=== PATIENT | female | born 1940 | race African-American/Black ===

== ENCOUNTER 2016-11-02 14:04 | Emergency (ER) | payer OTHER ==
[2016-11-02 14:11] VITALS: BP 149/87; PULSE 70; TEMP 98.3; BMI 36.6
--- NOTE | 2016-11-02 15:01 | PDOC ---
History of Present Illness - General Chief Complaint: Pain, Acute Stated Complaint: LT HAND SWOLLEN Time Seen by Provider: 11/02/16 14:23 History Source: Patient Exam Limitations: No Limitations - History of Present Illness Initial Comments: 11/02/16 14:56 Patient came for evaluation of right hand pain and swelling. States onset was 2 days ago and is uncertain as to cause. Denies fall, denies any known trauma. Denies any exercise changes or aggressive activity at home. Has never had a problem with her hands the past. Denies fever, denies any other areas of injury. 11/02/16 16:52 Occurred: reports: yesterday Severity: reports: mild, moderate Pain Location: reports: upper extremity Modifying Factors: improves with: None Past History - Travel Traveled outside of the country in the last 30 days: No Close contact w/someone who was outside of country & ill: No - Past Medical History Allergies/Adverse Reactions: Allergies Allergy/AdvReac Type Severity Reaction Status Date / Time ampicillin [Ampicillin] Allergy Severe Swelling Verified 11/02/16 14:08 codeine [Codeine] Allergy Swelling Verified 11/02/16 14:08 Home Medications: Ambulatory Orders Methimazole [Tapazole -] 10 mg PO BID tablet 01/03/16 Montelukast Na [Singulair -] 10 mg PO HS #30 tablet 04/10/16 Budesonide/Formeterol Fumarate [SYMBICORT 160/4.5mcg -] 2 inh PO BID 05/14/16 Digoxin [Lanoxin -] 0.125 mg PO DAILY tablet 05/27/16 Albuterol 2.5/Ipratropium 0.5 [Duoneb -] 1 neb NEB Q4H PRN 08/16/16 Warfarin Na [Coumadin -] 4 mg PO DAILY@1800 #30 tablet 08/25/16 Benzonatate [Tessalon Pearls -] 100 mg PO TID #21 capsule 08/30/16 Diltiazem Cd [Cardizem Cd -] 240 mg PO DAILY 08/30/16 Furosemide [Lasix -] 40 mg PO DAILY 08/30/16 Hydralazine HCl [Apresoline -] 10 mg PO BID 08/30/16 Anemia: No Asthma: Yes Cancer: No Cardiac Disorders: Yes (AFIB) CVA: No COPD: Yes CHF: Yes Dementia: No Diabetes: No GI Disorders: No Disorders: No HTN: Yes Hypercholesterolemia: No Liver Disease: No Suicide Attempt (Hx): No Seizures: No Thyroid Disease: Yes (HYPO.) - Surgical History Abdominal Surgery: Yes (TUBAL LIGATION) Appendectomy: No Cardiac Surgery: No Cholecystectomy: No Lung Surgery: No Neurologic Surgery: No Orthopedic Surgery: No - Family Disease History Family Disease History: Diabetes: Father, Heart Disease: Father, Mother - Immunization History Immunization Up to Date: Yes - Psycho/Social/Smoking Cessation Hx Anxiety: No Suicidal Ideation: No Smoking Status: No Smoking History: Never smoked Have you smoked in the past 12 months: No Number of Cigarettes Smoked Daily: 0 Hx Alcohol Use: No Drug/Substance Use Hx: No Substance Use Type: None Hx Substance Use Treatment: No Review of Systems - Review of Systems Able to Perform ROS?: Yes Is the patient limited Kinyarwanda proficient: Yes Constitutional: Yes: Symptoms Reported, See HPI. No: Chills, Fever, Malaise HEENTM: Yes: Symptoms Reported, See HPI Respiratory: Yes: Cough Musculoskeletal: Yes: Symptoms Reported, See HPI, Joint Pain, Joint Swelling ( right hand and wrist) Integumentary: Yes: Symptoms Reported, See HPI. No: Bruising All Other Systems: Reviewed and Negative *Physical Exam - Vital Signs Last Vital Signs Temp Pulse Resp BP Pulse Ox 98.3 F 70 18 149/87 99 11/02/16 14:07 11/02/16 14:07 11/02/16 14:07 11/02/16 14:07 11/02/16 14:07 - Physical Exam General Appearance: Yes: Nourished, Appropriately Dressed, Apparent Distress, Mild Distress HEENT: positive: CHERI, Normal ENT Inspection, Normal Voice, TMs Normal, Pharynx Normal Neck: positive: Supple Extremity: positive: Normal Capillary Refill, Normal Range of Motion, Tender, Swelling. negative: Normal Inspection Integumentary: positive: Warm, Erythema, Swelling (pain with flexion and extension at fingers , reproduced with flexion and extension at wrist and squeezing of fingers. Translation of pain is along the ligamentous areas from hand and extending to mid forearm CONSISTENT WITH A TENDINITIS) Neurologic: positive: histology manager II-XII NML intact, Fully Oriented, Alert ED Treatment Course - RADIOLOGY Radiology Studies Ordered: Category Date Time Status HAND- RIGHT [RAD] Stat Radiology 11/02/16 14:54 Ordered Progress Note - Progress Note Progress Note: Tendinitis, x-ray negative for fractures dislocation . Splinted with a volar splint, sling provided and will follow-up with orthopedist for possible further treatment *DC/Admit/Observation/Transfer Diagnosis at time of Disposition: Tendonitis - Discharge Dispostion Disposition: HOME Condition at time of disposition: Stable Admit: No - Referrals Referrals: Joey Hernandez MD [Primary Care Provider] - Sky Garza MD [Staff Physician] - - Patient Instructions Printed Discharge Instructions: DI for Tendinitis Additional Instructions: Rest, ice to area on and off for 15 minutes 4-6 times a day Avoid heavy lifting or exercise until pain and swelling is resolved or until further directed Keep area highly elevated to reduce swelling Use splints/Franko wrap as directed Followup with orthopedist in one to 2 days if not improving, if significantly improved may wait one week for followup with orthopedist May use tylenol 325mg 2-tablets every 6 hours as needed for pain - Post Discharge Activity Work/School Note: Back to Work
== END 2016-11-02 16:09 | disposition home or self-care (01) ==
LOC: JERFT 14:04 → SUPCPDRO 14:04 → JERFT 16:09
PROC: 2W39X1Z Immobilization of Left Upper Extremity using Splint (ICD-10-PCS; principal; 2016-11-02)
DX: M77.8 Other enthesopathies, not elsewhere classified (principal); I48.91 Unspecified atrial fibrillation; Z79.01 Long term (current) use of anticoagulants; I10 Essential (primary) hypertension; E03.9 Hypothyroidism, unspecified; J45.909 Unspecified asthma, uncomplicated; J44.9 Chronic obstructive pulmonary disease, unspecified
CPT/HCPCS: 29125; 73130-TC-RT; 99281-25

== ENCOUNTER 2016-11-13 16:52 | Inpatient (IN) | payer OTHER ==
[2016-11-13 16:57] VITALS: BMI 37.3
[2016-11-13 18:07] LABS: BASOPHIL 0.7 % (0-2.0); EOSINOPHIL 2.1 % (0-4.5); MCH 31.2 pg (25.7-33.7); MCHC 33.8 g/dl (32.0-36.0); MEAN CELL VOLUME 92.3 fl (80-96); MEAN PLT VOLUME 8.7 fl (7.5-11.1); PLATELET COUNT 184 K/MM3 (134-434); RDW 15.6 % (11.6-15.6); WHITE BLOOD COUNT 8.6 K/mm3 (4.0-10.0)
--- NOTE | 2016-11-13 18:12 | PDOC ---
History of Present Illness - General History Source: Patient, Old Records Exam Limitations: No Limitations <EllenFelipe - Last Filed: 11/13/16 20:41> - General History Source: Patient, Old Records Exam Limitations: No Limitations - History of Present Illness Initial Comments: 11/13/16 18:37 The patient is a 76 year old female, with a significant past medical history of CHF, asthma, COPD, Hypothyroidism, HTN and AFIB, who presents to the emergency department with 2 days of shortness of breath and dyspnea on exertion. She states that she usually has dyspnea on exertion but has worsen as even when she rests she is experiencing shortness of breath. She reports that she takes 40 mg of Lasix daily but notes that she has noticed her lower extremities swelling during this time frame. The patient denies chest pain, headache and dizziness. Denies fever, chills, nausea, vomit, diarrhea and constipation. Denies dysuria, frequency, urgency and hematuria. Allergies: Ampicillin, codeine Past surgical history: Tubal ligation Social history: No alcohol, tobacco or drug use reported PMD - Dr. Joey Hernandez Cardiology - Dr. Hahn <Kael Curtis - Last Filed: 11/13/16 20:54> - General Chief Complaint: Shortness of Breath Stated Complaint: SHORTNESS OF BREATH Time Seen by Provider: 11/13/16 17:24 Past History - Past Medical History Anemia: No Asthma: Yes Cancer: No Cardiac Disorders: Yes (AFIB) CVA: No COPD: Yes CHF: Yes Dementia: No Diabetes: No GI Disorders: No Disorders: No HTN: Yes Hypercholesterolemia: No Liver Disease: No Suicide Attempt (Hx): No Seizures: No Thyroid Disease: Yes (HYPO.) - Surgical History Abdominal Surgery: Yes (TUBAL LIGATION) Appendectomy: No Cardiac Surgery: No Cholecystectomy: No Lung Surgery: No Neurologic Surgery: No Orthopedic Surgery: No - Family Disease History Family Disease History: Diabetes: Father, Heart Disease: Father, Mother - Immunization History Immunization Up to Date: Yes - Psycho/Social/Smoking Cessation Hx Anxiety: No Suicidal Ideation: No Smoking Status: No Smoking History: Never smoked Have you smoked in the past 12 months: No Number of Cigarettes Smoked Daily: 0 Hx Alcohol Use: No Drug/Substance Use Hx: No Substance Use Type: None Hx Substance Use Treatment: No <Felipe Hughes - Last Filed: 11/13/16 20:41> <Kael Curtis - Last Filed: 11/13/16 20:54> - Past Medical History Allergies/Adverse Reactions: Allergies Allergy/AdvReac Type Severity Reaction Status Date / Time ampicillin [Ampicillin] Allergy Severe Swelling Verified 11/13/16 16:57 codeine [Codeine] Allergy Swelling Verified 11/13/16 16:57 Home Medications: Ambulatory Orders Montelukast Na [Singulair -] 10 mg PO HS #30 tablet 04/10/16 Budesonide/Formeterol Fumarate [SYMBICORT 160/4.5mcg -] 2 inh PO BID 05/14/16 Digoxin [Lanoxin -] 0.125 mg PO DAILY tablet 05/27/16 Albuterol 2.5/Ipratropium 0.5 [Duoneb -] 1 neb NEB Q4H PRN 08/16/16 Warfarin Na [Coumadin -] 4 mg PO DAILY@1800 #30 tablet 08/25/16 Benzonatate [Tessalon Pearls -] 100 mg PO TID #21 capsule 08/30/16 Diltiazem Cd [Cardizem Cd -] 240 mg PO DAILY 08/30/16 Furosemide [Lasix -] 40 mg PO DAILY 08/30/16 Hydralazine HCl [Apresoline -] 10 mg PO BID 08/30/16 Review of Systems - Review of Systems Able to Perform ROS?: Yes Comments:: 11/13/16 18:37 GENERAL/CONSTITUTIONAL: No fever or chills. No weakness. HEAD, EYES, EARS, NOSE AND THROAT: No change in vision. No ear pain or discharge. No sore throat. CARDIOVASCULAR: +Shortness of breath and dyspnea on exertion. No chest pain. RESPIRATORY: No cough, wheezing, or hemoptysis. GASTROINTESTINAL: No nausea, vomiting, diarrhea or constipation. GENITOURINARY: No dysuria, frequency, or change in urination. MUSCULOSKELETAL: No joint or muscle swelling or pain. No neck or back pain. EXTREMITIES: +Bilateral lower extremity swelling. SKIN: No rash NEUROLOGIC: No headache, vertigo, loss of consciousness, or change in strength/ sensation. ENDOCRINE: No increased thirst. No abnormal weight change HEMATOLOGIC/LYMPHATIC: No anemia, easy bleeding, or history of blood clots. ALLERGIC/IMMUNOLOGIC: No hives or skin allergy. <Kael Curtis Kelly - Last Filed: 11/13/16 20:54> *Physical Exam - Vital Signs Last Vital Signs Temp Pulse Resp BP Pulse Ox 98.4 F 95 H 20 157/90 97 11/13/16 16:53 11/13/16 16:53 11/13/16 16:53 11/13/16 16:53 11/13/16 16:53 <Felipe Hughes - Last Filed: 11/13/16 20:41> - Vital Signs Last Vital Signs Temp Pulse Resp BP Pulse Ox 98.4 F 95 H 20 157/90 97 11/13/16 16:53 11/13/16 16:53 11/13/16 16:53 11/13/16 16:53 11/13/16 16:53 - Physical Exam Comments: 11/13/16 18:37 GENERAL: Awake, alert, and fully oriented, in no acute distress HEAD: No signs of trauma, normocephalic, atraumatic EYES: PERRLA, EOMI, sclera anicteric, conjunctiva clear ENT: Auricles normal inspection, hearing grossly normal, nares patent, oropharynx clear without exudates. Moist mucosa NECK: Normal ROM, supple, no lymphadenopathy, JVD, or masses LUNGS: +Bibasilar rales. distress, speaks full sentences. HEART: Regular rate and rhythm, normal S1 and S2, no murmurs, rubs or gallops, peripheral pulses normal and equal bilaterally. ABDOMEN: Soft, nontender, normoactive bowel sounds. No guarding, no rebound. No masses EXTREMITIES: 1+ Pitting edema lower extremities. Normal inspection, Normal range of motion, No clubbing or cyanosis. NEUROLOGICAL: Cranial nerves II through XII grossly intact. Normal speech, normal gait, no focal sensorimotor deficits SKIN: Warm, Dry, normal turgor, no rashes or lesions noted. <Terri Curtisaide Mendoza - Last Filed: 11/13/16 20:54> Heart Score/ECG Review - History History: Slightly suspicious - Electrocardiogram EKG: Non specific repolarization disturbance - Age Age: >/= 65 - Risk Factors Based on the list above the patient has:: >/=3 risk factors or Hx atherosclerotic disease - Troponin Troponin: </= normal limit - Score Heart Score - Total: 5 #1 ECG reviewed & interpreted by me at: 18:15 11/13/16 20:18 afib 84, left axis deviation, LVH, T wave flat V4-V5, aVF, QTC 451 msec, no std/ estefany <Felipe Hughes - Last Filed: 11/13/16 20:41> ED Treatment Course - LABORATORY CBC & Chemistry Diagram: 11/13/16 18:00 11/13/16 18:00 - RADIOLOGY Radiology Studies Ordered: Category Date Time Status CHEST X-RAY PORTABLE* [RAD] Stat Radiology 11/13/16 17:28 Taken <Felipe Hughes - Last Filed: 11/13/16 20:41> - LABORATORY CBC & Chemistry Diagram: 11/13/16 18:00 11/13/16 18:00 - ADDITIONAL ORDERS Additional order review: 11/13/16 18:00 RBC 4.41 MCV 92.3 MCHC 33.8 RDW 15.6 MPV 8.7 Neutrophils % 57.0 D Lymphocytes % 30.3 D Monocytes % 9.9 D Eosinophils % 2.1 Basophils % 0.7 D - RADIOLOGY Radiograph Interpretation: 11/13/16 18:35 Chest X-Ray Reviewed by: Dr. Dat Severino Impression: Mild cardiomegaly without evidence of acute lung disease. <Kael Curtis - Last Filed: 11/13/16 20:54> Medical Decision Making - Medical Decision Making 11/13/16 18:11 A portion of this note was documented by scribe services under my direction. I have reviewed the details of the note, within reason, and agree with the documentation with the following case summary and management plan written by me. Patient treated in the ED. Nursing notes are reviewed and incorporated into the medical decision-making. Vital signs reviewed. Peripheral IV access obtained by the nurse, laboratory studies are drawn and sent, reviewed and interpreted by myself. Vital Signs Temp Pulse Resp BP Pulse Ox 98.4 F 95 H 20 157/90 97 11/13/16 16:53 11/13/16 16:53 11/13/16 16:53 11/13/16 16:53 11/13/16 16:53 76-year-old female with past medical history of congestive heart failure on 40 mg Lasix daily, hypertension, COPD, atrial fibrillation history of pulmonary embolism on Coumadin presents with shortness of breath and lower showing edema for 3 days. She reports adherence to her medications. Noted increasing dyspnea on exertion and shortness of breath but denies any chest pain or fevers. Denies cough. I suspect that the patient is having congestive heart failure exacerbation. We' ll obtain a chest x-ray, labs. Give IV Lasix and admit the patient to the hospital for further evaluation. 11/13/16 20:42 Chest xray demonstrates cardiomegaly but no pleural effusions. CBC, BMP 11/13/16 18:00 11/13/16 18:00 CMP Sodium 144 mmol/L (136-145) 11/13/16 18:00 Potassium 3.7 mmol/L (3.5-5.1) 11/13/16 18:00 Chloride 106 mmol/L (98-107) 11/13/16 18:00 Carbon Dioxide 27 mmol/L (21-32) 11/13/16 18:00 Anion Gap 11 (8-16) 11/13/16 18:00 BUN 15 mg/dL (7-18) D 11/13/16 18:00 Creatinine 0.9 mg/dL (0.55-1.02) 11/13/16 18:00 Creat Clearance w eGFR > 60 (>60) 11/13/16 18:00 Random Glucose 131 mg/dL (74-106) H 11/13/16 18:00 Calcium 8.8 mg/dL (8.5-10.1) 11/13/16 18:00 Magnesium 2.1 mg/dL (1.8-2.4) 11/13/16 18:00 Total Bilirubin 0.4 mg/dL (0.2-1.0) 11/13/16 18:00 AST 20 U/L (15-37) 11/13/16 18:00 ALT 13 U/L (12-78) D 11/13/16 18:00 Alkaline Phosphatase 78 U/L (45-117) 11/13/16 18:00 Creatine Kinase 105 IU/L (26-192) 11/13/16 18:00 Troponin I 0.02 ng/ml (0.00-0.05) 11/13/16 18:00 B-Natriuretic Peptide 293.26 pg/ml (5-450) 11/13/16 18:00 Total Protein 6.2 g/dl (6.4-8.2) L 11/13/16 18:00 Albumin 3.3 g/dl (3.4-5.0) L 11/13/16 18:00 Trop and BNP negative. Given new BAL, will need to SANTI. Aspirin ordered. Case discussed with Dr. Salinas. Accepts for telemetry admission.Will consult Dr. Hahn. <Felipe Hughes - Last Filed: 11/13/16 20:41> - Medical Decision Making 11/13/16 20:53 Dr. Perez was called regarding the patient. Dr. Salinas covering at 8:03pm Dr. Salinas was consulted regarding the patient at 8:40pm [phone] <Kael Curtis - Last Filed: 11/13/16 20:54> *DC/Admit/Observation/Transfer - Discharge Dispostion Admit: Yes <Felipe Hughes - Last Filed: 11/13/16 20:41> - Attestations Scribe Attestion: 11/13/16 18:36 Documentation prepared by Kael Curtis, acting as medical field representative for Felipe Hughes MD. <Kael Curtis - Last Filed: 11/13/16 20:54> Diagnosis at time of Disposition: Shortness of breath at rest - Referrals Referrals: Joey Hernandez MD [Primary Care Provider] -
[2016-11-13 18:36] LABS: INR 2.44 (0.82-1.09); PROTHROMBIN TIME (PATIENT) 27.3 SEC (9.98-11.88)
[2016-11-13 18:39] LABS: ACTIVATED PTT 43.4 SECONDS (26.9-34.4)
[2016-11-13 19:36] LABS: ALBUMIN 3.3 g/dl (3.4-5.0); ANION GAP 11 (8-16); BILIRUBIN,TOTAL 0.4 mg/dL (0.2-1.0); CALCIUM 8.8 mg/dL (8.5-10.1); CO2 27 mmol/L (21-32); CREATININE 0.9 mg/dL (0.55-1.02); GLUCOSE,RANDOM 131 mg/dL (74-106); MAGNESIUM 2.1 mg/dL (1.8-2.4); SGOT/AST 20 U/L (15-37); SGPT/ALT 13 U/L (12-78); TOT PROT 6.2 g/dl (6.4-8.2)
[2016-11-13 19:41] LABS: ALK PHOS 78 U/L (45-117)
[2016-11-13 19:42] LABS: TROPONIN I 0.02 ng/ml (0.00-0.05)
[2016-11-13] MEDS ORDERED: ASPIRIN 81 MG CHEWABLE TABLETS PO ONE (20:03)
[2016-11-13] MEDS ORDERED: ASPIRIN 81 MG CHEWABLE TABLETS ONE (20:20)
[2016-11-13] MEDS ORDERED: ONDANSETRON *ODT* 4 MG TABLET SL PRN (20:50)
[2016-11-13] MEDS ORDERED: ACETAMINOPHEN 325 MG TABLET (FP) PO PRN (20:50)
[2016-11-13] MEDS: hydrALAZINE HCL 10 MG TABLET PO SCH (23:09)
[2016-11-13] MEDS: MONTELUKAST NA 10 MG TABLET PO SCH (23:09)
[2016-11-14] MEDS: BUDESONIDE/FORMETEROL FUMARATE 160/4.5 mcg INHALER IH SCH ×3 (00:53→23:20)
[2016-11-14] MEDS: ALBUTEROL SO4 2.5/IPRATROPIUM 0.5 INH SOL 3 ML VIAL.NEB. NEB PRN ×2 (01:05→22:05)
[2016-11-14 07:30] LABS: MCH 31.5 pg (25.7-33.7); MCHC 33.8 g/dl (32.0-36.0); MEAN CELL VOLUME 93.4 fl (80-96); MEAN PLT VOLUME 8.7 fl (7.5-11.1); PLATELET COUNT 144 K/MM3 (134-434); RDW 16.4 % (11.6-15.6); WHITE BLOOD COUNT 7.8 K/mm3 (4.0-10.0)
--- NOTE | 2016-11-14 07:48 | HP ---
Admitting History and Physical - Primary Care Physician PCP: Darline Salinas - Admission Chief Complaint: SOB. CP History Source: Medical Record - Past Medical History Cardiovascular: Yes: AFIB (REFUSED ANTICOAGULATION IN PAST NOW ON COUMADIN), HTN , Mitral Insufficiency Pulmonary: Yes: Asthma, Bronchitis, COPD Gastrointestinal: Yes: GERD Musculoskeletal: Yes: Osteoarthritis Endocrine: Yes: Hyperthyroidism. No: Diabetes Mellitus - Past Surgical History Past Surgical History: Yes: Tubal Ligation - Smoking History Smoking history: Never smoked Have you smoked in the past 12 months: No Aproximately how many cigarettes per day: 0 - Alcohol/Substance Use Hx Alcohol Use: No - Social History ADL: Independent History of Recent Travel: No Home Medications - Allergies Allergies/Adverse Reactions: Allergies Allergy/AdvReac Type Severity Reaction Status Date / Time ampicillin [Ampicillin] Allergy Severe Swelling Verified 11/13/16 16:57 codeine [Codeine] Allergy Swelling Verified 11/13/16 16:57 - Home Medications Home Medications: Ambulatory Orders Montelukast Na [Singulair -] 10 mg PO HS #30 tablet 04/10/16 Budesonide/Formeterol Fumarate [SYMBICORT 160/4.5mcg -] 2 inh PO BID 05/14/16 Digoxin [Lanoxin -] 0.125 mg PO DAILY tablet 05/27/16 Albuterol 2.5/Ipratropium 0.5 [Duoneb -] 1 neb NEB Q4H PRN 08/16/16 Warfarin Na [Coumadin -] 4 mg PO DAILY@1800 #30 tablet 08/25/16 Benzonatate [Tessalon Pearls -] 100 mg PO TID #21 capsule 08/30/16 Diltiazem Cd [Cardizem Cd -] 240 mg PO DAILY 08/30/16 Furosemide [Lasix -] 40 mg PO DAILY 08/30/16 Hydralazine HCl [Apresoline -] 10 mg PO BID 08/30/16 Family Disease History - Family Disease History Family Disease History: Diabetes: Father (HTN) Review of Systems - Review of Systems Constitutional: denies: Chills, Fever Cardiovascular: denies: Chest Pain Respiratory: reports: SOB, Wheezing Gastrointestinal: denies: Abdominal Pain Physical Examination Vital Signs: Vital Signs Temperature 97.9 F 11/14/16 05:18 Pulse Rate 86 11/14/16 05:18 Respiratory Rate 19 11/14/16 05:18 Blood Pressure 131/78 11/14/16 05:18 O2 Sat by Pulse Oximetry (%) 97 11/13/16 23:00 Constitutional: Yes: Calm Cardiovascular: Yes: Regular Rate and Rhythm, S1, S2 Respiratory: Yes: Rhonchi Gastrointestinal: Yes: Normal Bowel Sounds, Soft Edema: No Labs: CBC, BMP 11/14/16 05:35 Imaging - Results Chest X-ray: Report Reviewed Problem List - Problems (1) Acute asthma exacerbation Code(s): J45.901 - UNSPECIFIED ASTHMA WITH (ACUTE) EXACERBATION Qualifiers: (2) Atrial fibrillation Code(s): I48.91 - UNSPECIFIED ATRIAL FIBRILLATION (3) CHF (congestive heart failure) Code(s): I50.9 - HEART FAILURE, UNSPECIFIED Qualifiers: Qualified Code(s): I50.9 - Heart failure, unspecified (4) Dyspnea Code(s): R06.00 - DYSPNEA, UNSPECIFIED (5) Hypertension Code(s): I10 - ESSENTIAL (PRIMARY) HYPERTENSION (6) Hyperthyroidism Code(s): E05.90 - THYROTOXICOSIS, UNSP WITHOUT THYROTOXIC CRISIS OR STORM Assessment/Plan The patient is a 76 year old female, with a significant past medical history of CHF, asthma, COPD, Hypothyroidism, HTN and AFIB, who presents to the emergency department with 2 days of shortness of breath and dyspnea on exertion. She states that she usually has dyspnea on exertion but has worsen as even when she rests she is experiencing shortness of breath. She reports that she takes 40 mg of Lasix daily but notes that she has noticed her lower extremities swelling during this time frame. The patient denies chest pain, headache and dizziness. Denies fever, chills, nausea, vomit, diarrhea and constipation. Denies dysuria, frequency, urgency and hematuria. Allergies: Ampicillin, codeine Past surgical history: Tubal ligation Social history: No alcohol, tobacco or drug use reported PMD - Dr. Joey Hernandez Cardiology - Dr. Hahn (1) Acute asthma exacerbation Code(s): J45.901 - UNSPECIFIED ASTHMA WITH (ACUTE) EXACERBATION Qualifiers: PULM CONSULTED DUONEB - IV STEROIDS (2) Atrial fibrillation Code(s): I48.91 - UNSPECIFIED ATRIAL FIBRILLATION ON AC INR THERAPEUTIC (3) CHF (congestive heart failure) Code(s): I50.9 - HEART FAILURE, UNSPECIFIED Qualifiers: Congestive heart failure type: unspecified congestive heart failure type Congestive heart failure chronicity: acute Qualified Code(s): I50.9 - Heart failure, unspecified BNP NEG TROP #1 NEG CARDIO CONSULTED (4) Dyspnea Code(s): R06.00 - DYSPNEA, UNSPECIFIED (5) Hypertension Code(s): I10 - ESSENTIAL (PRIMARY) HYPERTENSION (6) Hyperthyroidism Code(s): E05.90 - THYROTOXICOSIS, UNSP WITHOUT THYROTOXIC CRISIS OR STORM NOT ON Rx - [employer]
[2016-11-14 08:20] LABS: ALBUMIN 2.9 g/dl (3.4-5.0); ANION GAP 8 (8-16); CALCIUM 8.8 mg/dL (8.5-10.1); CO2 30 mmol/L (21-32); GLUCOSE,RANDOM 109 mg/dL (74-106); SGOT/AST 14 U/L (15-37); SGPT/ALT 11 U/L (12-78)
[2016-11-14 08:34] LABS: ALK PHOS 64 U/L (45-117); BILIRUBIN,TOTAL 0.5 mg/dL (0.2-1.0); CREATININE 0.8 mg/dL (0.55-1.02); DIGOXIN LEVEL 0.6567 ng/ml (0.8-2.0); TOT PROT 5.1 g/dl (6.4-8.2)
[2016-11-14 08:58] LABS: CHOLESTEROL 197 mg/dL (50-200); LDL CHOLESTEROL (ONLY SJRH) 137 mg/dL (5-100); THYROID STIMULATING HORMONE 1.59 uIU/ml (0.358-3.74); TROPONIN I 0.03 ng/ml (0.00-0.05)
--- NOTE | 2016-11-14 09:20 | PN ---
Progress Note (short form) - Note Progress Note: Cardiology Consult Dictated Well known to our service: Permanent AF HTN w/ chronic Diastolic CHF Moderate MR Chronic COPD DVT Now presents with increased SOB, increased b/l LE edema with bilateral rales on exam. IMP: Acute on chronic diastolic CHF REC: Telemetry IV Lasix Echo to re-assess MR Will need to review when last ischemic evaluation was and consider repeating it when euvolemic. INR 2-3.
[2016-11-14] MEDS: methylPREDNISolone NA SUCC 40 MG/1 ML VIAL IVPB SCH ×3 (09:54→23:51)
[2016-11-14] MEDS: hydrALAZINE HCL 10 MG TABLET PO SCH ×2 (09:54→23:18)
[2016-11-14] MEDS: DIGOXIN 0.125 MG TABLET (FP) PO SCH (09:54)
[2016-11-14] MEDS ORDERED: FUROSEMIDE 40 MG TABLET (FP) PO SCH (10:00)
--- NOTE | 2016-11-14 10:24 | CONS ---
CARDIOLOGY CONSULTATION DATE OF CONSULTATION: 11/14/2016 REQUESTED BY: Darline Salinas MD for shortness of breath. HISTORY OF PRESENT ILLNESS: The patient is well-known to our service from previous hospitalizations and from office practice. She is a 76-year-old female with permanent atrial fibrillation, on Coumadin, chronic hypertension with chronic diastolic CHF, moderate mitral regurgitation, chronic COPD, history of DVT, who presents to the emergency department for evaluation of persistent shortness of breath, bilateral lower extremity edema of several days duration. On physical examination, she has bilateral rales. She denies chest pain but has had a dry cough and describes chronic chest tightness with her cough. She denies palpitations, no PND orthopnea, no fevers or chills. PAST MEDICAL HISTORY: Her past medical history is as outlined above. She is on Coumadin for history of deep venous thrombosis, for pulmonary embolism and for her chronic atrial fibrillation. ALLERGIES: 1. AMPICILLIN 2. CODEINE HOME MEDICATIONS: 1. Coumadin 4 mg q h.s. 2. Singulair 10 mg q h.s. 3. Hydralazine 10 mg p.o. b.i.d. 4. Lasix 40 mg p.o. daily. 5. Cardizem CD 240 mg daily 6. Digoxin 0.125 mg p.o. daily. 7. Budesonide inhaler b.i.d. 8. DuoNeb p.r.n. FAMILY HISTORY: Noncontributory. SOCIAL HISTORY: Denies history of smoking. PHYSICAL EXAM: Vital signs: She is afebrile, temperature 97.9. Pulse 86, in atrial fibrillation. Telemetry has shown well-controlled atrial fibrillation with an average rate of 70. Heart: The heart was irregular. Lungs: Chest demonstrated bibasilar rales one-third of the way of up. Abdomen: Obese, soft, nontender. Extremities: 2+ edema bilaterally. RADIOGRAPHIC FINDINGS: Her chest x-ray was reviewed personally and showed cardiomegaly with increased interstitial markings. No effusions. No clear infiltrate. LABS: White count 7.8, hematocrit 36, platelets 44. INR was 2.44. Sodium 145. BUN 12, creatinine 0.8. CK and troponin negative x 2 sets. BNP 293. Digoxin level 0.66. ASSESSMENT: 76-year-old female with permanent atrial fibrillation, moderate mitral regurgitation, history of deep venous thrombosis/pulmonary embolism, history of hypertension with chronic diastolic congestive heart failure, presents with increased shortness of breath, bilateral lower extremity edema and rales bilaterally. Although her BNP does not seem markedly elevated, clinically she appears to be in mildly-decompensated [id number] diastolic congestive heart failure. PLAN: 1. Would change Lasix to IV for 1-2 days. 2. Repeat echocardiogram to re-assess mitral regurgitation. 3. Will review patient's previous history of ischemic evaluations and determine when the last stress test was. Would consider repeating an ischemic evaluation prior to discharge when euvolemic. 4. Maintain INR, 2-3. Thank you for the consultation. Jennifer MANZANARES/[id number] cc: Darline Salinas MD
[2016-11-14] MEDS: FUROSEMIDE 40 MG/4 ML INJECTABLE VIAL IVPUSH SCH (11:07)
[2016-11-14] MEDS: WARFARIN NA 2 MG TABLET (UD) PO SCH (17:25)
--- NOTE | 2016-11-14 17:29 | EKG ---
Test Reason : Blood Pressure : / mmHG Vent. Rate : 072 BPM Atrial Rate : 090 BPM P-R Int : 000 ms QRS Dur : 078 ms QT Int : 392 ms P-R-T Axes : 000 -27 -11 degrees QTc Int : 429 ms ATRIAL FIBRILLATION MINIMAL VOLTAGE CRITERIA FOR LVH, MAY BE NORMAL VARIANT NONSPECIFIC T WAVE ABNORMALITY ABNORMAL ECG WHEN COMPARED WITH ECG OF 30-AUG-2016 15:28, NONSPECIFIC T WAVE ABNORMALITY NOW EVIDENT IN ANTERIOR LEADS Confirmed by SHARAD JHA MD ([id number]) on 11/14/2016 5:28:45 PM Referred By: Confirmed By:SHARAD JHA MD
[2016-11-14] MEDS: MONTELUKAST NA 10 MG TABLET PO SCH (23:18)
[2016-11-15] MEDS: methylPREDNISolone NA SUCC 40 MG/1 ML VIAL IVPB SCH ×4 (04:01→21:42)
--- NOTE | 2016-11-15 07:07 | PN ---
Progress Note, Physician Chief Complaint: calm - Current Medication List Current Medications: Active Medications Acetaminophen (Tylenol -) 650 mg PO Q6H PRN PRN Reason: FEVER OR PAIN Last Admin: 11/15/16 06:47 Dose: 650 mg Albuterol/Ipratropium (Duoneb -) 1 amp NEB Q6H PRN PRN Reason: SHORTNESS OF BREATH Last Admin: 11/14/16 22:05 Dose: 1 amp Budesonide/Formoterol Fumarate (Symbicort 160/4.5mcg -) 2 puff IH BID [facility] Last Admin: 11/14/16 23:20 Dose: 2 puff Digoxin (Lanoxin -) 0.125 mg PO DAILY [facility] Last Admin: 11/14/16 09:54 Dose: 0.125 mg Diltiazem HCl (Cardizem Cd -) 240 mg PO DAILY [facility] Last Admin: 11/14/16 09:55 Dose: 240 mg Furosemide (Lasix Injection -) 40 mg IVPUSH DAILY [facility] Last Admin: 11/14/16 11:07 Dose: 40 mg Hydralazine HCl (Apresoline -) 10 mg PO BID [facility] Last Admin: 11/14/16 23:18 Dose: 10 mg Methylprednisolone Sodium Succinate (Solu-Medrol -) 60 mg IVPB Q6H-IV [facility] Last Admin: 11/15/16 04:01 Dose: 60 mg Montelukast Sodium (Singulair -) 10 mg PO HS [facility] Last Admin: 11/14/16 23:18 Dose: 10 mg Ondansetron HCl (Zofran Odt -) 4 mg SL Q6H PRN PRN Reason: NAUSEA AND/OR VOMITING Warfarin Sodium (Coumadin -) 4 mg PO DAILY@1800 [facility] Last Admin: 11/14/16 17:25 Dose: 4 mg - Objective Vital Signs: Vital Signs Temperature 98.2 F 11/15/16 02:00 Pulse Rate 88 11/15/16 02:00 Respiratory Rate 18 11/15/16 02:00 Blood Pressure 138/72 11/15/16 02:00 O2 Sat by Pulse Oximetry (%) 96 11/14/16 21:15 Cardiovascular: Yes: Regular Rate and Rhythm, S1, S2 Respiratory: Yes: CTA Bilaterally Gastrointestinal: Yes: Normal Bowel Sounds, Soft Edema: No Labs: CBC, BMP 11/14/16 05:35 11/14/16 05:35 INR, PTT INR 2.44 (0.82-1.09) H D 11/13/16 18:00 Problem List - Problems (1) Acute asthma exacerbation Code(s): J45.901 - UNSPECIFIED ASTHMA WITH (ACUTE) EXACERBATION Qualifiers: (2) Atrial fibrillation Code(s): I48.91 - UNSPECIFIED ATRIAL FIBRILLATION (3) CHF (congestive heart failure) Code(s): I50.9 - HEART FAILURE, UNSPECIFIED Qualifiers: Congestive heart failure type: unspecified congestive heart failure type Congestive heart failure chronicity: acute Qualified Code(s): I50.9 - Heart failure, unspecified (4) Dyspnea Code(s): R06.00 - DYSPNEA, UNSPECIFIED (5) Hypertension Code(s): I10 - ESSENTIAL (PRIMARY) HYPERTENSION (6) Hyperthyroidism Code(s): E05.90 - THYROTOXICOSIS, UNSP WITHOUT THYROTOXIC CRISIS OR STORM Assessment/Plan The patient is a 76 year old female, with a significant past medical history of CHF, asthma, COPD, Hypothyroidism, HTN and AFIB, who presents to the emergency department with 2 days of shortness of breath and dyspnea on exertion. She states that she usually has dyspnea on exertion but has worsen as even when she rests she is experiencing shortness of breath. She reports that she takes 40 mg of Lasix daily but notes that she has noticed her lower extremities swelling during this time frame. The patient denies chest pain, headache and dizziness. Denies fever, chills, nausea, vomit, diarrhea and constipation. Denies dysuria, frequency, urgency and hematuria. Allergies: Ampicillin, codeine Past surgical history: Tubal ligation Social history: No alcohol, tobacco or drug use reported PMD - Dr. Joey Hernandez Cardiology - Dr. Hahn (1) Acute asthma exacerbation Code(s): J45.901 - UNSPECIFIED ASTHMA WITH (ACUTE) EXACERBATION Qualifiers: PULM CONSULTED DUONEB IV STEROIDS (2) Atrial fibrillation Code(s): I48.91 - UNSPECIFIED ATRIAL FIBRILLATION ON AC INR THERAPEUTIC -> F/U CARDIO ON CASE CAN STOP TELE (3) CHF (congestive heart failure) Code(s): I50.9 - HEART FAILURE, UNSPECIFIED Qualifiers: Congestive heart failure type: unspecified congestive heart failure type Congestive heart failure chronicity: acute Qualified Code(s): I50.9 - Heart failure, unspecified BNP NEG TROP #1 NEG CARDIO CONSULT APPRECIATED IV LASIX (4) Dyspnea Code(s): R06.00 - DYSPNEA, UNSPECIFIED (5) Hypertension Code(s): I10 - ESSENTIAL (PRIMARY) HYPERTENSION (6) Hyperthyroidism Code(s): E05.90 - THYROTOXICOSIS, UNSP WITHOUT THYROTOXIC CRISIS OR STORM NOT ON Rx ENDO CONSULTED PASTOR IVAN
[2016-11-15 07:53] LABS: BASOPHIL 0.1 % (0-2.0); MCH 31.3 pg (25.7-33.7); MCHC 33.7 g/dl (32.0-36.0); MEAN PLT VOLUME 9.1 fl (7.5-11.1); NEUTROPHILS 85.4 % (42.8-82.8); PLATELET COUNT 169 K/MM3 (134-434); RDW 16.2 % (11.6-15.6); WHITE BLOOD COUNT 9.5 K/mm3 (4.0-10.0)
[2016-11-15 08:14] LABS: INR 2.17 (0.82-1.09); PROTHROMBIN TIME (PATIENT) 24.2 SEC (9.98-11.88)
[2016-11-15 08:33] LABS: ALBUMIN 3.3 g/dl (3.4-5.0); ANION GAP 12 (8-16); CALCIUM 9.2 mg/dL (8.5-10.1); CO2 25 mmol/L (21-32); GLUCOSE,RANDOM 206 mg/dL (74-106)
[2016-11-15 08:38] LABS: ALK PHOS 72 U/L (45-117); BILIRUBIN,TOTAL 0.4 mg/dL (0.2-1.0); CREATININE 0.8 mg/dL (0.55-1.02); FREE T4 0.94 ng/dl (0.76-1.46); SGOT/AST 17 U/L (15-37); SGPT/ALT 10 U/L (12-78)
--- NOTE | 2016-11-15 09:14 | PN ---
Progress Note, Physician Chief Complaint: feels better TELE: AF, controlled rates Repeat echo-- moderate MR - Current Medication List Current Medications: Active Medications Acetaminophen (Tylenol -) 650 mg PO Q6H PRN PRN Reason: FEVER OR PAIN Last Admin: 11/15/16 06:47 Dose: 650 mg Albuterol/Ipratropium (Duoneb -) 1 amp NEB Q6H PRN PRN Reason: SHORTNESS OF BREATH Last Admin: 11/14/16 22:05 Dose: 1 amp Budesonide/Formoterol Fumarate (Symbicort 160/4.5mcg -) 2 puff IH BID [facility] Last Admin: 11/14/16 23:20 Dose: 2 puff Digoxin (Lanoxin -) 0.125 mg PO DAILY [facility] Last Admin: 11/14/16 09:54 Dose: 0.125 mg Diltiazem HCl (Cardizem Cd -) 240 mg PO DAILY [facility] Last Admin: 11/14/16 09:55 Dose: 240 mg Furosemide (Lasix Injection -) 40 mg IVPUSH DAILY [facility] Last Admin: 11/14/16 11:07 Dose: 40 mg Hydralazine HCl (Apresoline -) 10 mg PO BID [facility] Last Admin: 11/14/16 23:18 Dose: 10 mg Methylprednisolone Sodium Succinate (Solu-Medrol -) 60 mg IVPB Q6H-IV [facility] Last Admin: 11/15/16 04:01 Dose: 60 mg Montelukast Sodium (Singulair -) 10 mg PO HS [facility] Last Admin: 11/14/16 23:18 Dose: 10 mg Ondansetron HCl (Zofran Odt -) 4 mg SL Q6H PRN PRN Reason: NAUSEA AND/OR VOMITING Warfarin Sodium (Coumadin -) 4 mg PO DAILY@1800 [facility] Last Admin: 11/14/16 17:25 Dose: 4 mg - Objective Vital Signs: Vital Signs Temperature 98.2 F 11/15/16 02:00 Pulse Rate 85 11/15/16 06:00 Respiratory Rate 20 11/15/16 06:00 Blood Pressure 152/75 11/15/16 06:00 O2 Sat by Pulse Oximetry (%) 96 11/14/16 21:15 Constitutional: Yes: No Distress Cardiovascular: Yes: Pulse Irregular Respiratory: Yes: Other (rales resolved) Gastrointestinal: Yes: Soft Edema: No Labs: CBC, BMP 11/15/16 05:36 11/15/16 05:36 INR, PTT INR 2.17 (0.82-1.09) H 11/15/16 05:36 Laboratory Tests 11/14/16 11/15/16 11/15/16 05:35 05:36 05:36 WBC 9.5 Hgb 12.9 Plt Count 169 INR Potassium 3.9 BUN 16 D Creatinine 0.8 Digoxin 0.6567 L 11/15/16 05:36 WBC Hgb Plt Count INR 2.17 H Potassium BUN Creatinine Digoxin Assessment/Plan Permanent AF HTN w/ chronic Diastolic CHF, mild exacerbation Moderate MR Chronic COPD DVT REC: Telemetry IV Lasix for one more day, then transition to PO tomorrow. Echo to re-assess MR showed moderate MR. INR 2-3. Can plan for discharge when optimized from pulmonary and volume standpoint. She is close to being euvolemic, and would transition PO Lasix tomorrow. Stress MIBI can be done as outpatient in next several weeks as cardiac enzymes have been negative.
[2016-11-15] MEDS: hydrALAZINE HCL 10 MG TABLET PO SCH ×2 (09:46→21:42)
[2016-11-15] MEDS: DIGOXIN 0.125 MG TABLET (FP) PO SCH (09:46)
[2016-11-15] MEDS: FUROSEMIDE 40 MG/4 ML INJECTABLE VIAL IVPUSH SCH (09:47)
[2016-11-15] MEDS: BUDESONIDE/FORMETEROL FUMARATE 160/4.5 mcg INHALER IH SCH ×2 (10:00→21:44)
--- NOTE | 2016-11-15 11:41 | PN ---
Progress Note (short form) - Note Progress Note: PULMONARY CONSULTATION DICTATED 11/15/2016 IMP ACUTE ASTHMA EXACERBATION CHRONIC PERSISTENT ASTHMA DIASTOLIC CHF AFIB HTN PLAN IV STEROIDS INHALED BRONCHODILATORS NASAL O2 LASIX MONITOR PEAK FLOW F/U CHEST X-RAY DR YE Problem List - Problems (1) Shortness of breath at rest Code(s): R06.02 - SHORTNESS OF BREATH (2) Acute asthma exacerbation Code(s): J45.901 - UNSPECIFIED ASTHMA WITH (ACUTE) EXACERBATION Qualifiers: (3) Acute on chronic diastolic (congestive) heart failure Code(s): I50.33 - ACUTE ON CHRONIC DIASTOLIC (CONGESTIVE) HEART FAILURE (4) Atrial fibrillation Code(s): I48.91 - UNSPECIFIED ATRIAL FIBRILLATION (5) COPD (chronic obstructive pulmonary disease) Code(s): J44.9 - CHRONIC OBSTRUCTIVE PULMONARY DISEASE, UNSPECIFIED (6) Hypertension Code(s): I10 - ESSENTIAL (PRIMARY) HYPERTENSION (7) Hyperthyroidism Code(s): E05.90 - THYROTOXICOSIS, UNSP WITHOUT THYROTOXIC CRISIS OR STORM
--- NOTE | 2016-11-15 12:18 | CONS ---
DATE OF CONSULTATION: 11/15/2016 REFERRING PHYSICIAN: Darline Salinas MD HISTORY: The patient is a 76-year-old black female known to me from previous office visits as well as hospitalization with past medical history of chronic, persistent asthma, CHF, COPD, hypothyroidism, hypertension, atrial fibrillation admitted to [facility] on November 13 with complaint of 2-day history of increasing shortness of breath and dyspnea on exertion. The patient states her symptoms were increased from the usual. She also states that she noticed some increasing lower extremity edema. She is maintained on Lasix daily but has not been compliant with a sodium intake. She denies any chest pain, nausea, vomiting, diaphoresis. Denies any fever or chills. She presents to the emergency room with the above. In the ER , she was felt to have acute asthma exacerbation and possible CHF. She was admitted to the floor. She was started on inhaled bronchodilators as well as Lasix and supplemental O2 with good clinical response. She denies any complaints of fevers or chills. There is no history of recent travel. PAST MEDICAL HISTORY: Again, includes chronic, persistent asthma, COPD, mitral regurgitation, hypertension, diastolic CHF, permanent atrial fibrillation, DVT. SOCIAL HISTORY: Nonsmoker. No occupational exposures. CURRENT MEDICATIONS: Include Symbicort, Zofran, Solu-Medrol, Coumadin, DuoNeb, Cardizem, Lanoxin, Apresoline, Lasix, and Singulair. REVIEW OF SYSTEMS: Positive for dyspnea, positive for cough, positive wheezing. No chest pain, no palpitations, no nausea, no vomiting, no fevers, no chills. Positive lower extremity edema. PHYSICAL EXAMINATION: General: The patient is a well-developed, well-nourished female awake and alert in no acute distress. Vital Signs: She is currently afebrile. Blood pressure is 152/75, respiratory rate 20, O2 saturation 96%. HEENT: Normocephalic and atraumatic. Neck: Supple. Heart: Irregularly irregular with normal S1, S2. Chest: Scattered, bilateral wheezes. Abdomen: Soft. Bowel sounds are positive. Extremities: Bilateral lower extremity edema, mild 1+. LABORATORIES: BUN 16, creatinine 0.8, BNP 293, WBCs 9.5, hemoglobin 12.9, hematocrit 38.3 with a platelet count of 169,000, INR 2.17. Chest x-ray: No acute infiltrates and/or effusions. IMPRESSION: 1. Chest congestion most likely secondary to acute asthma exacerbation. 2. Chronic, persistent asthma. 3. Diastolic congestive heart failure. 4. Permanent atrial fibrillation. 5. Hypertension. 6. Hypothyroidism. PLAN: Continue with IV steroids, inhaled bronchodilators, supplemental O2. Monitor Peak flow. P.o. Lasix. Obtain follow up chest x-ray. PFTs as outpatient. Stress compliance with diet and medication. VANDANA YE M.D. [id number] MTDD
[2016-11-15] MEDS: WARFARIN NA 2 MG TABLET (UD) PO SCH (18:10)
[2016-11-15] MEDS: MONTELUKAST NA 10 MG TABLET PO SCH (21:42)
[2016-11-16] MEDS: methylPREDNISolone NA SUCC 40 MG/1 ML VIAL IVPB SCH ×5 (03:03→19:34)
[2016-11-16 07:42] LABS: BASOPHIL 0.1 % (0-2.0); MCH 30.6 pg (25.7-33.7); MEAN CELL VOLUME 92.8 fl (80-96); MEAN PLT VOLUME 9.2 fl (7.5-11.1); NEUTROPHILS 87.6 % (42.8-82.8); PLATELET COUNT 163 K/MM3 (134-434); RDW 16.8 % (11.6-15.6); WHITE BLOOD COUNT 14.3 K/mm3 (4.0-10.0)
[2016-11-16 07:53] LABS: INR 2.41 (0.82-1.09)
[2016-11-16 08:29] LABS: ALBUMIN 3.2 g/dl (3.4-5.0); BILIRUBIN,TOTAL 0.4 mg/dL (0.2-1.0); CALCIUM 8.5 mg/dL (8.5-10.1); TOT PROT 5.9 g/dl (6.4-8.2)
--- NOTE | 2016-11-16 09:39 | PN ---
Progress Note, Physician - Current Medication List Current Medications: Active Medications Acetaminophen (Tylenol -) 650 mg PO Q6H PRN PRN Reason: FEVER OR PAIN Last Admin: 11/15/16 06:47 Dose: 650 mg Albuterol/Ipratropium (Duoneb -) 1 amp NEB Q6H PRN PRN Reason: SHORTNESS OF BREATH Last Admin: 11/14/16 22:05 Dose: 1 amp Budesonide/Formoterol Fumarate (Symbicort 160/4.5mcg -) 2 puff IH BID [facility] Last Admin: 11/15/16 21:44 Dose: 2 puff Digoxin (Lanoxin -) 0.125 mg PO DAILY [facility] Last Admin: 11/15/16 09:46 Dose: 0.125 mg Diltiazem HCl (Cardizem Cd -) 240 mg PO DAILY [facility] Last Admin: 11/15/16 09:46 Dose: 240 mg Furosemide (Lasix Injection -) 40 mg IVPUSH DAILY [facility] Last Admin: 11/15/16 09:47 Dose: 40 mg Hydralazine HCl (Apresoline -) 10 mg PO BID [facility] Last Admin: 11/15/16 21:42 Dose: 10 mg Methylprednisolone Sodium Succinate (Solu-Medrol -) 60 mg IVPB Q6H-IV [facility] Last Admin: 11/16/16 03:03 Dose: 60 mg Montelukast Sodium (Singulair -) 10 mg PO HS [facility] Last Admin: 11/15/16 21:42 Dose: 10 mg Ondansetron HCl (Zofran Odt -) 4 mg SL Q6H PRN PRN Reason: NAUSEA AND/OR VOMITING Warfarin Sodium (Coumadin -) 4 mg PO DAILY@1800 [facility] Last Admin: 11/15/16 18:10 Dose: 4 mg - Objective Vital Signs: Vital Signs Temperature 97.5 F L 11/16/16 06:00 Pulse Rate 85 11/16/16 06:00 Respiratory Rate 20 11/16/16 06:00 Blood Pressure 139/95 11/16/16 06:00 O2 Sat by Pulse Oximetry (%) 97 11/15/16 21:00 Eyes: Yes: WNL, Conjunctiva Clear, EOM Intact HENT: Yes: WNL, Atraumatic, Normocephalic Neck: Yes: WNL, Supple, Trachea Midline Cardiovascular: Yes: WNL, Pulse Irregular, S1, S2 Respiratory: Yes: WNL, Regular, CTA Bilaterally Gastrointestinal: Yes: WNL, Normal Bowel Sounds Genitourinary: Yes: WNL Musculoskeletal: Yes: WNL Extremities: Yes: WNL Edema: No Integumentary: Yes: WNL Neurological: Yes: WNL, Alert, Oriented ...Motor Strength: WNL Psychiatric: Yes: WNL Labs: CBC, BMP 11/16/16 06:15 11/16/16 06:15 INR, PTT INR 2.41 (0.82-1.09) H 11/16/16 06:15 Assessment/Plan Permanent AF HTN w/ chronic Diastolic CHF, mild exacerbation Moderate MR Chronic COPD DVT REC: Telemetry IV Lasix for one more day, then transition to PO tomorrow. Echo to re-assess MR showed moderate MR. INR 2-3. Can plan for discharge when optimized from pulmonary and volume standpoint. She is close to being euvolemic, and would transition PO Lasix tomorrow. Stress MIBI can be done as outpatient in next several weeks as cardiac enzymes have been negative.
[2016-11-16] MEDS ORDERED: PT OWN MED DRAWER 7, Y5N ONE ×2 (10:08→18:29)
[2016-11-16] MEDS: BUDESONIDE/FORMETEROL FUMARATE 160/4.5 mcg INHALER IH SCH ×2 (10:24→21:33)
[2016-11-16] MEDS: DIGOXIN 0.125 MG TABLET (FP) PO SCH (10:24)
[2016-11-16] MEDS: hydrALAZINE HCL 10 MG TABLET PO SCH ×2 (10:24→21:34)
[2016-11-16] MEDS: FUROSEMIDE 40 MG/4 ML INJECTABLE VIAL IVPUSH SCH (10:25)
--- NOTE | 2016-11-16 11:28 | PN ---
Progress Note (short form) - Note Progress Note: OOB to chair on RA. Breathing feels better today. (+) cough No hemoptysis. Intake & Output 11/13/16 11/14/16 11/15/16 11/16/16 23:59 23:59 23:59 23:59 Intake Total 470 1230 Balance 470 1230 Weight 204 lb 4 oz 201 lb 3 oz 199 lb 12.8 oz 202 lb Last Vital Signs Temp Pulse Resp BP Pulse Ox 97.7 F 77 24 155/81 97 11/16/16 10:22 11/16/16 10:24 11/16/16 10:22 11/16/16 10:22 11/15/16 21:00 Active Medications Acetaminophen (Tylenol -) 650 mg PO Q6H PRN PRN Reason: FEVER OR PAIN Last Admin: 11/15/16 06:47 Dose: 650 mg Albuterol/Ipratropium (Duoneb -) 1 amp NEB Q6H PRN PRN Reason: SHORTNESS OF BREATH Last Admin: 11/14/16 22:05 Dose: 1 amp Budesonide/Formoterol Fumarate (Symbicort 160/4.5mcg -) 2 puff IH BID [facility] Last Admin: 11/16/16 10:24 Dose: 2 puff Digoxin (Lanoxin -) 0.125 mg PO DAILY [facility] Last Admin: 11/16/16 10:24 Dose: 0.125 mg Diltiazem HCl (Cardizem Cd -) 240 mg PO DAILY [facility] Last Admin: 11/16/16 10:24 Dose: 240 mg Furosemide (Lasix Injection -) 40 mg IVPUSH DAILY [facility] Last Admin: 11/16/16 10:25 Dose: 40 mg Hydralazine HCl (Apresoline -) 10 mg PO BID [facility] Last Admin: 11/16/16 10:24 Dose: 10 mg Methylprednisolone Sodium Succinate (Solu-Medrol -) 60 mg IVPB Q6H-IV [facility] Last Admin: 11/16/16 09:52 Dose: 60 mg Montelukast Sodium (Singulair -) 10 mg PO HS [facility] Last Admin: 11/15/16 21:42 Dose: 10 mg Ondansetron HCl (Zofran Odt -) 4 mg SL Q6H PRN PRN Reason: NAUSEA AND/OR VOMITING Warfarin Sodium (Coumadin -) 4 mg PO DAILY@1800 [facility] Last Admin: 11/15/16 18:10 Dose: 4 mg Eyes: Yes: conjunctiva clear HENT: Yes: WNL, Atraumatic, Normocephalic Neck: Yes: WNL, Supple, Trachea Midline Cardiovascular: Yes: WNL, Pulse Irregular, S1, S2 Respiratory: Yes: scattered rhonchi, mild scattered expiratory wheeze Gastrointestinal: Yes: WNL, Normal Bowel Sounds Genitourinary: Yes: WNL Musculoskeletal: Yes: WNL Extremities: Yes: WNL Edema: No Integumentary: Yes: WNL Neurological: Yes: WNL, Alert, Oriented ...Motor Strength: WNL Psychiatric: Yes: WNL Labs: Laboratory Results - last 24 hr 11/16/16 11/16/16 11/16/16 06:15 06:15 06:15 WBC 14.3 H D RBC 4.08 Hgb 12.5 Hct 37.9 MCV 92.8 MCHC 33.0 RDW 16.8 H Plt Count 163 MPV 9.2 Neutrophils % 87.6 H Lymphocytes % 8.0 D Monocytes % 4.3 D Eosinophils % 0.0 Basophils % 0.1 INR 2.41 H Sodium 142 Potassium 4.4 Chloride 104 Carbon Dioxide 26 Anion Gap 12 BUN 20 H D Creatinine 1.0 D Creat Clearance w eGFR 54.05 Random Glucose 232 H Calcium 8.5 Total Bilirubin 0.4 AST 47 H D ALT 21 D Alkaline Phosphatase 58 Total Protein 5.9 L Albumin 3.2 L Problem List - Problems (1) Shortness of breath at rest Code(s): R06.02 - SHORTNESS OF BREATH (2) Acute asthma exacerbation Code(s): J45.901 - UNSPECIFIED ASTHMA WITH (ACUTE) EXACERBATION Qualifiers: (3) Acute on chronic diastolic (congestive) heart failure Code(s): I50.33 - ACUTE ON CHRONIC DIASTOLIC (CONGESTIVE) HEART FAILURE (4) Atrial fibrillation Code(s): I48.91 - UNSPECIFIED ATRIAL FIBRILLATION (5) COPD (chronic obstructive pulmonary disease) Code(s): J44.9 - CHRONIC OBSTRUCTIVE PULMONARY DISEASE, UNSPECIFIED (6) Hypertension Code(s): I10 - ESSENTIAL (PRIMARY) HYPERTENSION (7) Hyperthyroidism Code(s): E05.90 - THYROTOXICOSIS, UNSP WITHOUT THYROTOXIC CRISIS OR STORM PLAN: Taper Medrol BD TX O2 as needed Coumadin for VTE Jaimie Gonzales
--- NOTE | 2016-11-16 11:48 | PN ---
Progress Note, Physician Chief Complaint: HAVING CONVERSATION ON PHONE - Current Medication List Current Medications: Active Medications Acetaminophen (Tylenol -) 650 mg PO Q6H PRN PRN Reason: FEVER OR PAIN Last Admin: 11/15/16 06:47 Dose: 650 mg Albuterol Sulfate (Ventolin 0.083% Nebulizer Soln -) 1 amp NEB TID [facility] Albuterol/Ipratropium (Duoneb -) 1 amp NEB Q6H PRN PRN Reason: SHORTNESS OF BREATH Last Admin: 11/14/16 22:05 Dose: 1 amp Budesonide/Formoterol Fumarate (Symbicort 160/4.5mcg -) 2 puff IH BID [facility] Last Admin: 11/16/16 10:24 Dose: 2 puff Digoxin (Lanoxin -) 0.125 mg PO DAILY [facility] Last Admin: 11/16/16 10:24 Dose: 0.125 mg Diltiazem HCl (Cardizem Cd -) 240 mg PO DAILY [facility] Last Admin: 11/16/16 10:24 Dose: 240 mg Furosemide (Lasix Injection -) 40 mg IVPUSH DAILY [facility] Last Admin: 11/16/16 10:25 Dose: 40 mg Hydralazine HCl (Apresoline -) 10 mg PO BID [facility] Last Admin: 11/16/16 10:24 Dose: 10 mg Methylprednisolone Sodium Succinate (Solu-Medrol -) 40 mg IVPB Q8H-IV [facility] Montelukast Sodium (Singulair -) 10 mg PO HS [facility] Last Admin: 11/15/16 21:42 Dose: 10 mg Ondansetron HCl (Zofran Odt -) 4 mg SL Q6H PRN PRN Reason: NAUSEA AND/OR VOMITING Warfarin Sodium (Coumadin -) 4 mg PO DAILY@1800 [facility] Last Admin: 11/15/16 18:10 Dose: 4 mg - Objective Vital Signs: Vital Signs Temperature 97.7 F 11/16/16 10:22 Pulse Rate 77 11/16/16 10:24 Respiratory Rate 24 11/16/16 10:22 Blood Pressure 155/81 11/16/16 10:22 O2 Sat by Pulse Oximetry (%) 97 11/15/16 21:00 Cardiovascular: Yes: Regular Rate and Rhythm, S1, S2 Respiratory: Yes: Rhonchi Gastrointestinal: Yes: Normal Bowel Sounds, Soft Labs: CBC, BMP 11/16/16 06:15 11/16/16 06:15 INR, PTT INR 2.41 (0.82-1.09) H 11/16/16 06:15 Problem List - Problems (1) Acute asthma exacerbation Code(s): J45.901 - UNSPECIFIED ASTHMA WITH (ACUTE) EXACERBATION Qualifiers: (2) Atrial fibrillation Code(s): I48.91 - UNSPECIFIED ATRIAL FIBRILLATION (3) CHF (congestive heart failure) Code(s): I50.9 - HEART FAILURE, UNSPECIFIED Qualifiers: Congestive heart failure type: unspecified congestive heart failure type Congestive heart failure chronicity: acute Qualified Code(s): I50.9 - Heart failure, unspecified (4) Dyspnea Code(s): R06.00 - DYSPNEA, UNSPECIFIED (5) Hypertension Code(s): I10 - ESSENTIAL (PRIMARY) HYPERTENSION (6) Hyperthyroidism Code(s): E05.90 - THYROTOXICOSIS, UNSP WITHOUT THYROTOXIC CRISIS OR STORM Assessment/Plan The patient is a 76 year old female, with a significant past medical history of CHF, asthma, COPD, Hypothyroidism, HTN and AFIB, who presents to the emergency department with 2 days of shortness of breath and dyspnea on exertion. She states that she usually has dyspnea on exertion but has worsen as even when she rests she is experiencing shortness of breath. She reports that she takes 40 mg of Lasix daily but notes that she has noticed her lower extremities swelling during this time frame. The patient denies chest pain, headache and dizziness. Denies fever, chills, nausea, vomit, diarrhea and constipation. Denies dysuria, frequency, urgency and hematuria. Allergies: Ampicillin, codeine Past surgical history: Tubal ligation Social history: No alcohol, tobacco or drug use reported PMD - Dr. Joey Hernandez Cardiology - Dr. Hahn (1) Acute asthma exacerbation Code(s): J45.901 - UNSPECIFIED ASTHMA WITH (ACUTE) EXACERBATION Qualifiers: PULM CONSULT APPRECIATED DUONEB IV STEROIDS -> PO 2/5 (2) Atrial fibrillation Code(s): I48.91 - UNSPECIFIED ATRIAL FIBRILLATION ON AC INR THERAPEUTIC CARDIO ON CASE (3) CHF (congestive heart failure) Code(s): I50.9 - HEART FAILURE, UNSPECIFIED Qualifiers: Congestive heart failure type: unspecified congestive heart failure type Congestive heart failure chronicity: acute Qualified Code(s): I50.9 - Heart failure, unspecified BNP NEG TROP NEG CARDIO CONSULT APPRECIATED IV LASIX (4) Dyspnea Code(s): R06.00 - DYSPNEA, UNSPECIFIED (5) Hypertension Code(s): I10 - ESSENTIAL (PRIMARY) HYPERTENSION (6) Hyperthyroidism Code(s): E05.90 - THYROTOXICOSIS, UNSP WITHOUT THYROTOXIC CRISIS OR STORM NOT ON Rx? ENDO RE-CONSULTED PASTOR IVAN
[2016-11-16] MEDS: ALBUTEROL SO4 0.083% IH SOL 2.5 MG/3 ML VIAL.NEB. NEB SCH ×2 (14:26→22:16)
--- NOTE | 2016-11-16 14:47 | CONSULT ---
Consult Consult Specialty:: endocrine Referred by:: Reason for Consultation:: hyperthyroidism - History of Present Illness Chief Complaint: shortness of breath,anxious History of Present Illness: 76 year old female, with a significant past medical history of CHF, asthma, COPD , Hyperthyroidism, HTN and AFIB, who presents to the emergency department with 2 days of shortness of breath and dyspnea on exertion. has been taken off thyroid medication since thyroid has improved,has had shortness of breath and leg swelling cough,and felt tired - History Source History Provided By: Patient Limitations to Obtaining History: Clinical Condition - Past Medical History Cardio/Vascular: Yes: AFIB (REFUSED ANTICOAGULATION IN PAST NOW ON COUMADIN), HTN, Mitral Insufficiency Pulmonary: Yes: Asthma, Bronchitis, COPD Gastrointestinal: Yes: GERD Musculoskeletal: Yes: Osteoarthritis Endocrine: Yes: Hyperthyroidism. No: Diabetes Mellitus Additional Medical History: LEFT POPLITEAL DVT - Past Surgical History Past Surgical History: Yes: Tubal Ligation - Alcohol/Substance Use Hx Alcohol Use: No - Smoking History Smoking history: Never smoked Have you smoked in the past 12 months: No Aproximately how many cigarettes per day: 0 - Social History ADL: Independent History of Recent Travel: No Home Medications - Allergies Allergies/Adverse Reactions: Allergies Allergy/AdvReac Type Severity Reaction Status Date / Time ampicillin [Ampicillin] Allergy Severe Swelling Verified 11/13/16 16:57 codeine [Codeine] Allergy Swelling Verified 11/13/16 16:57 - Home Medications Home Medications: Ambulatory Orders Montelukast Na [Singulair -] 10 mg PO HS #30 tablet 04/10/16 Budesonide/Formeterol Fumarate [SYMBICORT 160/4.5mcg -] 2 inh PO BID 05/14/16 Digoxin [Lanoxin -] 0.125 mg PO DAILY tablet 05/27/16 Albuterol 2.5/Ipratropium 0.5 [Duoneb -] 1 neb NEB Q4H PRN 08/16/16 Warfarin Na [Coumadin -] 4 mg PO DAILY@1800 #30 tablet 08/25/16 Benzonatate [Tessalon Pearls -] 100 mg PO TID #21 capsule 08/30/16 Diltiazem Cd [Cardizem Cd -] 240 mg PO DAILY 08/30/16 Furosemide [Lasix -] 40 mg PO DAILY 08/30/16 Hydralazine HCl [Apresoline -] 10 mg PO BID 08/30/16 Family Disease History - Family Disease History Family Disease History: Diabetes: Father (HTN) Review of Systems - Review of Systems Constitutional: reports: Loss of Appetite, Weakness Eyes: reports: No Symptoms HENT: reports: No Symptoms Neck: reports: No Symptoms Respiratory: reports: Cough, Exercise Intolerance, Orthopnea, SOB on Exertion Gastrointestinal: reports: No Symptoms Genitourinary: reports: No Symptoms Breasts: reports: No Symptoms Reported Musculoskeletal: reports: Joint Pain, Joint Swelling, Muscle Pain, Muscle Cramps Integumentary: reports: No Symptoms Neurological: reports: Weakness Endocrine: reports: Unexplained Weight Gain Physical Exam Vital Signs: Vital Signs Temperature 97.7 F 11/16/16 10:22 Pulse Rate 77 11/16/16 10:24 Respiratory Rate 24 11/16/16 10:22 Blood Pressure 155/81 11/16/16 10:22 O2 Sat by Pulse Oximetry (%) 97 11/16/16 11:00 Constitutional: Yes: Anxious Eyes: Yes: EOM Intact HENT: Yes: Normocephalic Neck: Yes: Trachea Midline Cardiovascular: Yes: Tachycardia Respiratory: Yes: SOB, Tachypnea Gastrointestinal: Yes: Normal Bowel Sounds ...Rectal Exam: Yes: Deferred Renal/: Yes: WNL Breast(s): Yes: Left Musculoskeletal: Yes: WNL Extremities: Yes: WNL Edema: Yes Edema: LLE: Trace, RLE: Trace Peripheral Pulses WNL: Yes Labs: CBC, BMP 11/16/16 06:15 11/16/16 06:15 Problem List - Problems (1) Shortness of breath at rest Code(s): R06.02 - SHORTNESS OF BREATH (2) Asthma attack Code(s): J45.901 - UNSPECIFIED ASTHMA WITH (ACUTE) EXACERBATION (3) Atrial fibrillation Code(s): I48.91 - UNSPECIFIED ATRIAL FIBRILLATION Assessment/Plan Current Active Problems Shortness of breath at rest (Acute) hyperthyroidism/sp tapazole therapy afib/palpitation chf diabetes mellitus insulin resistance hyperglycemia Abnormal Lab Results 11/16/16 11/16/16 11/16/16 06:15 06:15 06:15 WBC 14.3 H D RDW 16.8 H Neutrophils % 87.6 H INR 2.41 H BUN 20 H D Random Glucose 232 H AST 47 H D Total Protein 5.9 L Albumin 3.2 L Laboratory Tests 11/14/16 11/14/16 11/15/16 05:35 05:35 05:36 Sodium Potassium Chloride Carbon Dioxide Anion Gap BUN Creatinine Creat Clearance w eGFR Random Glucose Hemoglobin A1c % 6.3 H D TSH 1.59 D Free T4 0.94 D 11/16/16 06:15 Sodium 142 Potassium 4.4 Chloride 104 Carbon Dioxide 26 Anion Gap 12 BUN 20 H D Creatinine 1.0 D Creat Clearance w eGFR 54.05 Random Glucose 232 H Hemoglobin A1c % TSH Free T4 Current Medications Generic Name Dose Route Start Last Admin Trade Name Freq PRN Reason Stop Dose Admin Acetaminophen 650 mg 11/13/16 20:50 11/15/16 06:47 Tylenol - PO 650 mg Q6H PRN Administration FEVER OR PAIN Albuterol Sulfate 1 amp 11/16/16 14:00 11/16/16 14:26 Ventolin 0.083% Nebulizer Soln - NEB 1 amp TID BLESSING Administration Albuterol/Ipratropium 1 amp 11/13/16 20:50 11/14/16 22:05 Duoneb - NEB 1 amp Q6H PRN Administration SHORTNESS OF BREATH Budesonide/Formoterol Fumarate 2 puff 11/13/16 22:00 11/16/16 10:24 Symbicort 160/4.5mcg - IH 2 puff BID BLESSING Administration Digoxin 0.125 mg 11/14/16 10:00 11/16/16 10:24 Lanoxin - PO 0.125 mg DAILY BLESSING Administration Diltiazem HCl 240 mg 11/14/16 10:00 11/16/16 10:24 Cardizem Cd - PO 240 mg DAILY BLESSING Administration Furosemide 40 mg 11/14/16 10:00 11/16/16 10:25 Lasix Injection - IVPUSH 40 mg DAILY BLESSING Administration Hydralazine HCl 10 mg 11/13/16 22:00 11/16/16 10:24 Apresoline - PO 10 mg BID BLESSING Administration Methylprednisolone Sodium Succinate 40 mg 11/16/16 18:00 Solu-Medrol - IVPB Q8H-IV BLESSING Montelukast Sodium 10 mg 11/13/16 22:00 11/15/16 21:42 Singulair - PO 10 mg HS BLESSING Administration Ondansetron HCl 4 mg 11/13/16 20:50 Zofran Odt - SL Q6H PRN NAUSEA AND/OR VOMITING Warfarin Sodium 4 mg 11/14/16 18:00 11/15/16 18:10 Coumadin - PO 4 mg DAILY@1800 BLESSING Administration plan: eurthyroid no need for thyrod correction continue bgm qid novolog coverage in and outpatient
[2016-11-16] MEDS: WARFARIN NA 2 MG TABLET (UD) PO SCH (18:33)
[2016-11-16] MEDS: MONTELUKAST NA 10 MG TABLET PO SCH (21:34)
[2016-11-17] MEDS: ALBUTEROL SO4 0.083% IH SOL 2.5 MG/3 ML VIAL.NEB. NEB SCH ×3 (00:05→14:40)
[2016-11-17] MEDS: methylPREDNISolone NA SUCC 40 MG/1 ML VIAL IVPB SCH (01:26)
[2016-11-17 08:24] LABS: BASOPHIL 0.2 % (0-2.0); INR 2.93 (0.82-1.09); MCH 31.4 pg (25.7-33.7); MCHC 33.5 g/dl (32.0-36.0); MEAN CELL VOLUME 93.7 fl (80-96); MEAN PLT VOLUME 9.5 fl (7.5-11.1); NEUTROPHILS 87.1 % (42.8-82.8); PLATELET COUNT 168 K/MM3 (134-434); RDW 16.6 % (11.6-15.6); WHITE BLOOD COUNT 10.6 K/mm3 (4.0-10.0)
[2016-11-17 08:37] LABS: ALBUMIN 3.2 g/dl (3.4-5.0); ANION GAP 13 (8-16); CALCIUM 8.5 mg/dL (8.5-10.1); CO2 24 mmol/L (21-32)
[2016-11-17 08:43] LABS: ALK PHOS 61 U/L (45-117); BILIRUBIN,TOTAL 0.4 mg/dL (0.2-1.0); CREATININE 0.9 mg/dL (0.55-1.02); GLUCOSE,RANDOM 258 mg/dL (74-106); SGPT/ALT 24 U/L (12-78); TOT PROT 5.9 g/dl (6.4-8.2)
[2016-11-17 08:48] LABS: SGOT/AST 38 U/L (15-37)
--- NOTE | 2016-11-17 09:19 | PN ---
Progress Note, Physician Chief Complaint: CASE D/W PULM -> DC PLANNING PATIENT COMFORTABLE GOING HOME 2/6 AMBULATING - Current Medication List Current Medications: Active Medications Acetaminophen (Tylenol -) 650 mg PO Q6H PRN PRN Reason: FEVER OR PAIN Last Admin: 11/15/16 06:47 Dose: 650 mg Albuterol Sulfate (Ventolin 0.083% Nebulizer Soln -) 1 amp NEB TID [facility] Last Admin: 11/17/16 06:15 Dose: 1 amp Albuterol/Ipratropium (Duoneb -) 1 amp NEB Q6H PRN PRN Reason: SHORTNESS OF BREATH Last Admin: 11/14/16 22:05 Dose: 1 amp Budesonide/Formoterol Fumarate (Symbicort 160/4.5mcg -) 2 puff IH BID [facility] Last Admin: 11/16/16 21:33 Dose: 2 puff Digoxin (Lanoxin -) 0.125 mg PO DAILY [facility] Last Admin: 11/16/16 10:24 Dose: 0.125 mg Diltiazem HCl (Cardizem Cd -) 240 mg PO DAILY [facility] Last Admin: 11/16/16 10:24 Dose: 240 mg Furosemide (Lasix Injection -) 40 mg IVPUSH DAILY [facility] Last Admin: 11/16/16 10:25 Dose: 40 mg Hydralazine HCl (Apresoline -) 10 mg PO BID [facility] Last Admin: 11/16/16 21:34 Dose: 10 mg Insulin Aspart (Novolog Vial Sliding Scale -) 0 vial SQ ACHS [facility] PRN Reason: Protocol Methylprednisolone Sodium Succinate (Solu-Medrol -) 40 mg IVPB Q8H-IV [facility] Last Admin: 11/17/16 01:26 Dose: 40 mg Montelukast Sodium (Singulair -) 10 mg PO HS [facility] Last Admin: 11/16/16 21:34 Dose: 10 mg Ondansetron HCl (Zofran Odt -) 4 mg SL Q6H PRN PRN Reason: NAUSEA AND/OR VOMITING Warfarin Sodium (Coumadin -) 4 mg PO DAILY@1800 [facility] Last Admin: 11/16/16 18:33 Dose: 4 mg - Objective Vital Signs: Vital Signs Temperature 97.3 F L 11/17/16 06:00 Pulse Rate 83 11/17/16 06:00 Respiratory Rate 20 11/17/16 06:00 Blood Pressure 132/94 11/17/16 06:00 O2 Sat by Pulse Oximetry (%) 96 11/16/16 22:00 Labs: CBC, BMP 11/17/16 07:17 11/17/16 07:17 INR, PTT INR 2.93 (0.82-1.09) H 11/17/16 07:17 Problem List - Problems (1) Acute asthma exacerbation Code(s): J45.901 - UNSPECIFIED ASTHMA WITH (ACUTE) EXACERBATION Qualifiers: (2) Atrial fibrillation Code(s): I48.91 - UNSPECIFIED ATRIAL FIBRILLATION (3) CHF (congestive heart failure) Code(s): I50.9 - HEART FAILURE, UNSPECIFIED Qualifiers: Congestive heart failure type: unspecified congestive heart failure type Congestive heart failure chronicity: acute Qualified Code(s): I50.9 - Heart failure, unspecified (4) Dyspnea Code(s): R06.00 - DYSPNEA, UNSPECIFIED (5) Hypertension Code(s): I10 - ESSENTIAL (PRIMARY) HYPERTENSION (6) Hyperthyroidism Code(s): E05.90 - THYROTOXICOSIS, UNSP WITHOUT THYROTOXIC CRISIS OR STORM Assessment/Plan The patient is a 76 year old female, with a significant past medical history of CHF, asthma, COPD, Hypothyroidism, HTN and AFIB, who presents to the emergency department with 2 days of shortness of breath and dyspnea on exertion. She states that she usually has dyspnea on exertion but has worsen as even when she rests she is experiencing shortness of breath. She reports that she takes 40 mg of Lasix daily but notes that she has noticed her lower extremities swelling during this time frame. The patient denies chest pain, headache and dizziness. Denies fever, chills, nausea, vomit, diarrhea and constipation. Denies dysuria, frequency, urgency and hematuria. Allergies: Ampicillin, codeine Past surgical history: Tubal ligation Social history: No alcohol, tobacco or drug use reported PMD - Dr. Joey Hernandez Cardiology - Dr. Hahn (1) Acute asthma exacerbation Code(s): J45.901 - UNSPECIFIED ASTHMA WITH (ACUTE) EXACERBATION Qualifiers: PULM CONSULT APPRECIATED DUONEB IV STEROIDS -> PO (2) Atrial fibrillation Code(s): I48.91 - UNSPECIFIED ATRIAL FIBRILLATION ON AC INR THERAPEUTIC CARDIO ON CASE (3) CHF (congestive heart failure) Code(s): I50.9 - HEART FAILURE, UNSPECIFIED Qualifiers: Congestive heart failure type: unspecified congestive heart failure type Congestive heart failure chronicity: acute Qualified Code(s): I50.9 - Heart failure, unspecified BNP NEG TROP NEG CARDIO CONSULT APPRECIATED IV LASIX (4) Dyspnea Code(s): R06.00 - DYSPNEA, UNSPECIFIED (5) Hypertension Code(s): I10 - ESSENTIAL (PRIMARY) HYPERTENSION (6) Hyperthyroidism Code(s): E05.90 - THYROTOXICOSIS, UNSP WITHOUT THYROTOXIC CRISIS OR STORM ENDO ON CASE NO NEED THYROID Rx (7) DM2? Code(s): E05.90 - THYROTOXICOSIS, UNSP WITHOUT THYROTOXIC CRISIS OR STORM BS 300s ON IV STEROIDS LAST A1C 6.3 BGM/ISS REPEAT A1C PENDING ENDO CONSULTED LEVEMIR STARTED PASTOR IVAN
[2016-11-17] MEDS: predniSONE 20 MG TABLET (UD) PO SCH (09:27)
[2016-11-17] MEDS: hydrALAZINE HCL 10 MG TABLET PO SCH ×2 (09:27→21:28)
[2016-11-17] MEDS: FUROSEMIDE 40 MG/4 ML INJECTABLE VIAL IVPUSH SCH (09:27)
[2016-11-17] MEDS: DIGOXIN 0.125 MG TABLET (FP) PO SCH (09:27)
[2016-11-17] MEDS ORDERED: PT OWN MED DRAWER 7, Y5N ONE (09:28)
[2016-11-17] MEDS: BUDESONIDE/FORMETEROL FUMARATE 160/4.5 mcg INHALER IH SCH ×2 (09:28→21:28)
--- NOTE | 2016-11-17 10:15 | PN ---
Progress Note, Physician - Current Medication List Current Medications: Active Medications Acetaminophen (Tylenol -) 650 mg PO Q6H PRN PRN Reason: FEVER OR PAIN Last Admin: 11/15/16 06:47 Dose: 650 mg Albuterol Sulfate (Ventolin 0.083% Nebulizer Soln -) 1 amp NEB TID [facility] Last Admin: 11/17/16 06:15 Dose: 1 amp Albuterol/Ipratropium (Duoneb -) 1 amp NEB Q6H PRN PRN Reason: SHORTNESS OF BREATH Last Admin: 11/14/16 22:05 Dose: 1 amp Budesonide/Formoterol Fumarate (Symbicort 160/4.5mcg -) 2 puff IH BID [facility] Last Admin: 11/17/16 09:28 Dose: 2 puff Digoxin (Lanoxin -) 0.125 mg PO DAILY [facility] Last Admin: 11/17/16 09:27 Dose: 0.125 mg Diltiazem HCl (Cardizem Cd -) 240 mg PO DAILY [facility] Last Admin: 11/17/16 09:27 Dose: 240 mg Furosemide (Lasix Injection -) 40 mg IVPUSH DAILY [facility] Last Admin: 11/17/16 09:27 Dose: 40 mg Hydralazine HCl (Apresoline -) 10 mg PO BID [facility] Last Admin: 11/17/16 09:27 Dose: 10 mg Insulin Aspart (Novolog Vial Sliding Scale -) 1 vial SQ ACHS [facility] PRN Reason: Protocol Montelukast Sodium (Singulair -) 10 mg PO HS [facility] Last Admin: 11/16/16 21:34 Dose: 10 mg Ondansetron HCl (Zofran Odt -) 4 mg SL Q6H PRN PRN Reason: NAUSEA AND/OR VOMITING Prednisone (Deltasone -) 40 mg PO DAILY [facility] Last Admin: 11/17/16 09:27 Dose: 40 mg Warfarin Sodium (Coumadin -) 4 mg PO DAILY@1800 [facility] Last Admin: 11/16/16 18:33 Dose: 4 mg - Objective Vital Signs: Vital Signs Temperature 97.3 F L 11/17/16 06:00 Pulse Rate 84 11/17/16 09:27 Respiratory Rate 20 11/17/16 06:00 Blood Pressure 132/94 11/17/16 06:00 O2 Sat by Pulse Oximetry (%) 96 11/16/16 22:00 Eyes: Yes: WNL, Conjunctiva Clear, EOM Intact HENT: Yes: WNL, Atraumatic, Normocephalic Neck: Yes: WNL, Supple, Trachea Midline Cardiovascular: Yes: Pulse Irregular, S1, S2 Respiratory: Yes: WNL, Regular, CTA Bilaterally Gastrointestinal: Yes: WNL, Normal Bowel Sounds Genitourinary: Yes: WNL Musculoskeletal: Yes: WNL Extremities: Yes: WNL Edema: No Integumentary: Yes: WNL Neurological: Yes: WNL, Alert, Oriented ...Motor Strength: WNL Psychiatric: Yes: WNL Labs: CBC, BMP 11/17/16 07:17 11/17/16 07:17 INR, PTT INR 2.93 (0.82-1.09) H 11/17/16 07:17 Assessment/Plan Permanent AF HTN w/ chronic Diastolic CHF, mild exacerbation Moderate MR Chronic COPD DVT REC: PO Lasix. Echo to re-assess MR showed moderate MR. INR 2-3. Can plan for discharge when optimized from pulmonary and volume standpoint. She is close to being euvolemic, and would transition PO Lasix tomorrow. Stress MIBI can be done as outpatient in next several weeks as cardiac enzymes have been negative.
[2016-11-17] MEDS: INSULIN SLIDING SCALE (NOVOLOG) 1 VIAL SQ SCH ×3 (11:43→21:28)
--- NOTE | 2016-11-17 12:15 | PN ---
Progress Note (short form) - Note Progress Note: Overall feels better. Less cough No hemoptysis. Intake & Output 11/14/16 11/15/16 11/16/16 11/17/16 23:59 23:59 23:59 23:59 Intake Total 470 1230 1360 0 Balance 470 1230 1360 0 Weight 201 lb 3 oz 199 lb 12.8 oz 202 lb 203 lb 3 oz Last Vital Signs Temp Pulse Resp BP Pulse Ox 98.0 F 84 20 145/89 96 11/17/16 09:30 11/17/16 09:30 11/17/16 09:30 11/17/16 09:30 11/16/16 22:00 Active Medications Acetaminophen (Tylenol -) 650 mg PO Q6H PRN PRN Reason: FEVER OR PAIN Last Admin: 11/15/16 06:47 Dose: 650 mg Albuterol Sulfate (Ventolin 0.083% Nebulizer Soln -) 1 amp NEB TID [facility] Last Admin: 11/17/16 06:15 Dose: 1 amp Albuterol/Ipratropium (Duoneb -) 1 amp NEB Q6H PRN PRN Reason: SHORTNESS OF BREATH Last Admin: 11/14/16 22:05 Dose: 1 amp Budesonide/Formoterol Fumarate (Symbicort 160/4.5mcg -) 2 puff IH BID [facility] Last Admin: 11/17/16 09:28 Dose: 2 puff Digoxin (Lanoxin -) 0.125 mg PO DAILY [facility] Last Admin: 11/17/16 09:27 Dose: 0.125 mg Diltiazem HCl (Cardizem Cd -) 240 mg PO DAILY [facility] Last Admin: 11/17/16 09:27 Dose: 240 mg Furosemide (Lasix -) 40 mg PO DAILY [facility] Hydralazine HCl (Apresoline -) 10 mg PO BID [facility] Last Admin: 11/17/16 09:27 Dose: 10 mg Insulin Aspart (Novolog Vial Sliding Scale -) 1 vial SQ ACHS [facility] PRN Reason: Protocol Last Admin: 11/17/16 11:43 Dose: 6 units Montelukast Sodium (Singulair -) 10 mg PO HS [facility] Last Admin: 11/16/16 21:34 Dose: 10 mg Ondansetron HCl (Zofran Odt -) 4 mg SL Q6H PRN PRN Reason: NAUSEA AND/OR VOMITING Prednisone (Deltasone -) 40 mg PO DAILY [facility] Last Admin: 11/17/16 09:27 Dose: 40 mg Warfarin Sodium (Coumadin -) 4 mg PO DAILY@1800 [facility] Last Admin: 11/16/16 18:33 Dose: 4 mg Eyes: Yes: conjunctiva clear HENT: Yes: WNL, Atraumatic, Normocephalic Neck: Yes: WNL, Supple, Trachea Midline Cardiovascular: Yes: WNL, Pulse Irregular, S1, S2 Respiratory: Yes: scattered rhonchi, No expiratory wheeze Gastrointestinal: Yes: WNL, Normal Bowel Sounds Genitourinary: Yes: WNL Musculoskeletal: Yes: WNL Extremities: Yes: WNL Edema: No Integumentary: Yes: WNL Neurological: Yes: WNL, Alert, Oriented ...Motor Strength: WNL Psychiatric: Yes: WNL Labs: Laboratory Results - last 24 hr 11/17/16 11/17/16 11/17/16 07:17 07:17 07:17 WBC 10.6 H RBC 3.97 Hgb 12.5 Hct 37.2 MCV 93.7 MCHC 33.5 RDW 16.6 H Plt Count 168 MPV 9.5 Neutrophils % 87.1 H Lymphocytes % 8.5 Monocytes % 4.2 Eosinophils % 0.0 Basophils % 0.2 INR 2.93 H Sodium 141 Potassium 4.3 Chloride 104 Carbon Dioxide 24 Anion Gap 13 BUN 24 H Creatinine 0.9 Creat Clearance w eGFR > 60 POC Glucometer Random Glucose 258 H Calcium 8.5 Total Bilirubin 0.4 AST 38 H ALT 24 Alkaline Phosphatase 61 Total Protein 5.9 L Albumin 3.2 L 11/17/16 11:02 WBC RBC Hgb Hct MCV MCHC RDW Plt Count MPV Neutrophils % Lymphocytes % Monocytes % Eosinophils % Basophils % INR Sodium Potassium Chloride Carbon Dioxide Anion Gap BUN Creatinine Creat Clearance w eGFR POC Glucometer 267 Random Glucose Calcium Total Bilirubin AST ALT Alkaline Phosphatase Total Protein Albumin Problem List - Problems (1) Shortness of breath at rest Code(s): R06.02 - SHORTNESS OF BREATH (2) Acute asthma exacerbation Code(s): J45.901 - UNSPECIFIED ASTHMA WITH (ACUTE) EXACERBATION Qualifiers: (3) Acute on chronic diastolic (congestive) heart failure Code(s): I50.33 - ACUTE ON CHRONIC DIASTOLIC (CONGESTIVE) HEART FAILURE (4) Atrial fibrillation Code(s): I48.91 - UNSPECIFIED ATRIAL FIBRILLATION (5) COPD (chronic obstructive pulmonary disease) Code(s): J44.9 - CHRONIC OBSTRUCTIVE PULMONARY DISEASE, UNSPECIFIED (6) Hypertension Code(s): I10 - ESSENTIAL (PRIMARY) HYPERTENSION (7) Hyperthyroidism Code(s): E05.90 - THYROTOXICOSIS, UNSP WITHOUT THYROTOXIC CRISIS OR STORM PLAN: Agree with Prednisone BD TX O2 as needed Coumadin for VTE Singulair Symbicort D/C planning Dr Gonzales
[2016-11-17] MEDS: WARFARIN NA 2 MG TABLET (UD) PO SCH (17:47)
[2016-11-17] MEDS ORDERED: INSULIN (NOVOLOG) ASPART 100 UNITS/ML 10ML VIAL ONE (21:17)
[2016-11-17] MEDS: MONTELUKAST NA 10 MG TABLET PO SCH (21:28)
[2016-11-17] MEDS: INSULIN DETEMIR 100 UNITS/ML MDV SQ SCH (21:28)
[2016-11-18] MEDS: INSULIN SLIDING SCALE (NOVOLOG) 1 VIAL SQ SCH ×2 (06:18→11:59)
[2016-11-18] MEDS: INSULIN DETEMIR 100 UNITS/ML MDV SQ SCH (06:19)
[2016-11-18 07:50] LABS: MCH 30.8 pg (25.7-33.7); MCHC 33.1 g/dl (32.0-36.0); MEAN CELL VOLUME 92.9 fl (80-96); PLATELET COUNT 167 K/MM3 (134-434); RDW 16.4 % (11.6-15.6); WHITE BLOOD COUNT 11.6 K/mm3 (4.0-10.0)
[2016-11-18 08:02] LABS: INR 3.27 (0.82-1.09); PROTHROMBIN TIME (PATIENT) 36.9 SEC (9.98-11.88)
[2016-11-18 08:27] LABS: ALBUMIN 3.3 g/dl (3.4-5.0); ANION GAP 12 (8-16); CALCIUM 8.1 mg/dL (8.5-10.1); CO2 28 mmol/L (21-32)
[2016-11-18 08:33] LABS: ALK PHOS 55 U/L (45-117); BILIRUBIN,TOTAL 0.5 mg/dL (0.2-1.0); CREATININE 0.9 mg/dL (0.55-1.02); GLUCOSE,RANDOM 123 mg/dL (74-106); SGOT/AST 26 U/L (15-37); SGPT/ALT 23 U/L (12-78); TOT PROT 5.7 g/dl (6.4-8.2)
[2016-11-18] MEDS ORDERED: PT OWN MED DRAWER 7, Y5N ONE (09:46)
[2016-11-18 09:53] VITALS: BP 138/82; TEMP 97.4
[2016-11-18] MEDS: predniSONE 20 MG TABLET (UD) PO SCH (09:58)
[2016-11-18] MEDS: DIGOXIN 0.125 MG TABLET (FP) PO SCH (09:59)
[2016-11-18] MEDS: BUDESONIDE/FORMETEROL FUMARATE 160/4.5 mcg INHALER IH SCH (09:59)
[2016-11-18] MEDS: hydrALAZINE HCL 10 MG TABLET PO SCH (09:59)
[2016-11-18] MEDS ORDERED: FUROSEMIDE 40 MG TABLET (FP) PO SCH (10:00)
--- NOTE | 2016-11-18 10:42 | HP ---
Admitting History and Physical - Past Medical History Cardiovascular: Yes: AFIB (REFUSED ANTICOAGULATION IN PAST NOW ON COUMADIN), HTN , Mitral Insufficiency Pulmonary: Yes: Asthma, Bronchitis, COPD Gastrointestinal: Yes: GERD Musculoskeletal: Yes: Osteoarthritis Endocrine: Yes: Hyperthyroidism. No: Diabetes Mellitus - Past Surgical History Past Surgical History: Yes: Tubal Ligation - Smoking History Smoking history: Never smoked Have you smoked in the past 12 months: No Aproximately how many cigarettes per day: 0 - Alcohol/Substance Use Hx Alcohol Use: No - Social History ADL: Independent History of Recent Travel: No Home Medications - Allergies Allergies/Adverse Reactions: Allergies Allergy/AdvReac Type Severity Reaction Status Date / Time ampicillin [Ampicillin] Allergy Severe Swelling Verified 11/13/16 16:57 codeine [Codeine] Allergy Swelling Verified 11/13/16 16:57 - Home Medications Home Medications: Ambulatory Orders Montelukast Na [Singulair -] 10 mg PO HS #30 tablet 04/10/16 Budesonide/Formeterol Fumarate [SYMBICORT 160/4.5mcg -] 2 inh PO BID 05/14/16 Digoxin [Lanoxin -] 0.125 mg PO DAILY tablet 05/27/16 Albuterol 2.5/Ipratropium 0.5 [Duoneb -] 1 neb NEB Q4H PRN 08/16/16 Warfarin Na [Coumadin -] 4 mg PO DAILY@1800 #30 tablet 08/25/16 Benzonatate [Tessalon Pearls -] 100 mg PO TID #21 capsule 08/30/16 Diltiazem Cd [Cardizem Cd -] 240 mg PO DAILY 08/30/16 Furosemide [Lasix -] 40 mg PO DAILY 08/30/16 Hydralazine HCl [Apresoline -] 10 mg PO BID 08/30/16 Family Disease History - Family Disease History Family Disease History: Diabetes: Father (HTN) Physical Examination Vital Signs: Vital Signs Temperature 97.4 F L 11/18/16 09:47 Pulse Rate 86 11/18/16 09:59 Respiratory Rate 20 11/18/16 09:47 Blood Pressure 138/82 11/18/16 09:47 O2 Sat by Pulse Oximetry (%) 97 11/17/16 22:00 Labs: CBC, BMP 11/18/16 06:05 11/18/16 06:05
--- NOTE | 2016-11-18 10:49 | DS ---
Physical Examination Vital Signs: Vital Signs Temperature 97.4 F L 11/18/16 09:47 Pulse Rate 86 11/18/16 09:59 Respiratory Rate 20 11/18/16 09:47 Blood Pressure 138/82 11/18/16 09:47 O2 Sat by Pulse Oximetry (%) 97 11/17/16 22:00 Constitutional: Yes: Calm Cardiovascular: Yes: Regular Rate and Rhythm, S1, S2 Respiratory: Yes: CTA Bilaterally Gastrointestinal: Yes: Normal Bowel Sounds, Soft Neurological: Yes: Alert, Oriented Labs: CBC, BMP 11/18/16 06:05 11/18/16 06:05 Discharge Summary Reason For Visit: DYSPNEA Current Active Problems Shortness of breath at rest (Acute) Hospital Course: The patient is a 76 year old female, with a significant past medical history of CHF, asthma, COPD, Hypothyroidism, HTN and AFIB, who presents to the emergency department with 2 days of shortness of breath and dyspnea on exertion. She states that she usually has dyspnea on exertion but has worsen as even when she rests she is experiencing shortness of breath. She reports that she takes 40 mg of Lasix daily but notes that she has noticed her lower extremities swelling during this time frame. The patient denies chest pain, headache and dizziness. Denies fever, chills, nausea, vomit, diarrhea and constipation. Denies dysuria, frequency, urgency and hematuria. Allergies: Ampicillin, codeine Past surgical history: Tubal ligation Social history: No alcohol, tobacco or drug use reported PMD - Dr. Joey Hernandez Cardiology - Dr. Hahn acute exacerbation of diastolic HF: iv lasix to po lasix echo done seen by cardio on telemtry now on med surg floor afib rate control on [facility] copd on prednisone with taper Condition: Improved - Instructions Diet, Activity, Other Instructions: NO COUMADIN tonight ( fridaynov 18) make appointment to get coumadin level check prednisone taper Referrals: Joey Hernandez MD [Primary Care Provider] - Disposition: HOME - Home Medications Comprehensive Discharge Medication List: Ambulatory Orders Montelukast Na [Singulair -] 10 mg PO HS #30 tablet 04/10/16 Budesonide/Formeterol Fumarate [SYMBICORT 160/4.5mcg -] 2 inh PO BID 05/14/16 Digoxin [Lanoxin -] 0.125 mg PO DAILY tablet 05/27/16 Albuterol 2.5/Ipratropium 0.5 [Duoneb -] 1 neb NEB Q4H PRN 08/16/16 Warfarin Na [Coumadin -] 4 mg PO DAILY@1800 #30 tablet 08/25/16 Benzonatate [Tessalon Pearls -] 100 mg PO TID #21 capsule 08/30/16 Diltiazem Cd [Cardizem Cd -] 240 mg PO DAILY 08/30/16 Furosemide [Lasix -] 40 mg PO DAILY 08/30/16 Hydralazine HCl [Apresoline -] 10 mg PO BID 08/30/16
[2016-11-18 13:29] VITALS: PULSE 64
[2016-11-18] MEDS: ALBUTEROL SO4 0.083% IH SOL 2.5 MG/3 ML VIAL.NEB. NEB SCH ×2 (14:02)
== END 2016-11-18 15:04 | disposition home or self-care (01) | DRG 292 ==
LOC: JER 16:52 → JERBED 20:48 → J4W 21:57 → J5S 11-15 15:15
PROVIDERS: ADMIT Family Medicine; ATTEND Family Medicine
DX: I50.33 Acute on chronic diastolic (congestive) heart failure (principal); J45.901 Unspecified asthma with (acute) exacerbation; I11.0 Hypertensive heart disease with heart failure; E03.9 Hypothyroidism, unspecified; I34.0 Nonrheumatic mitral (valve) insufficiency; Z86.718 Personal history of other venous thrombosis and embolism; I48.2 Chronic atrial fibrillation; Z79.01 Long term (current) use of anticoagulants; J44.9 Chronic obstructive pulmonary disease, unspecified
CPT/HCPCS: 36415; 71010-TC; 71020-TC; 80053; 80061; 80162; 82550; 83036; 83721; 83735; 83880; 84439; 84443; 84484; 85025; 85027; 85610; 85730; 93005; 93010; 93306-TC; 94640; 94761; 99282-25

== ENCOUNTER 2017-02-20 19:50 | Emergency (ER) | payer OTHER ==
[2017-02-20 20:02] VITALS: BP 170/100; PULSE 91; TEMP 97.8; BMI 35.6
[2017-02-20] MEDS ORDERED: ACETAMINOPHEN 500 MG TABLET (FP) PO ONE (20:59)
[2017-02-20] MEDS ORDERED: ACETAMINOPHEN 325 MG TABLET (FP) ONE (21:03)
[2017-02-20 21:45] LABS: BASOPHIL 0.4 % (0-2.0); EOSINOPHIL 0.8 % (0-4.5); MCH 29.9 pg (25.7-33.7); MCHC 32.8 g/dl (32.0-36.0); MEAN CELL VOLUME 91.4 fl (80-96); MEAN PLT VOLUME 9.5 fl (7.5-11.1); PLATELET COUNT 202 K/MM3 (134-434); RDW 14.6 % (11.6-15.6)
[2017-02-20 22:10] LABS: INR 2.54 (0.82-1.09); PROTHROMBIN TIME (PATIENT) 28.5 SEC (9.98-11.88)
--- NOTE | 2017-02-20 22:13 | PDOC ---
History of Present Illness - General Chief Complaint: Injury Stated Complaint: FALL/INJURY Time Seen by Provider: 02/20/17 20:15 - History of Present Illness Initial Comments: 02/20/17 22:10 CHIEF COMPLAINT: shoulder pain s/p fall HISTORY OF PRESENT ILLNESS: 76 yo F with hx of HTN, mitral insufficiency, atrial fibrillation (on Coumadin), asthma, COPD, hyperthyroidism, and osteoarthritis presents to ED with left shoulder pain s/p fall "around 4-5 pm today." Patient is accompanied by son who witness the fall. Patient and sonstate that the fall was mechanical and due to "missing a small step that's hard to see at [employer]." Patient and son deny any injury to head, neck, or back, or any LOC. They report that the patient fell forward after tripping and caught her self with both her hands and initially she did not feel any pain. However she now has significant pain to left shoulder. Patient denies any headache, dizziness, nausea, or vomiting. No recent travel or sick contacts. PAST MEDICAL HISTORY: as per HPI FAMILY HISTORY: Denies SOCIAL HISTORY: Denies tobacco, alcohol, illicit drug use. SURGICAL HISTORY: Denies ALLERGIES: ampicillin, codeine REVIEW OF SYSTEMS General/Constitutional: Denies fever or chills. Denies weakness, weight change. HEENT: Denies change in vision. Denies ear pain or discharge. Denies sore throat. Cardiovascular: Denies chest pain or shortness of breath. Respiratory: Denies cough, wheezing, or hemoptysis. Gastrointestinal: Denies nausea, vomiting, diarrhea or constipation. Denies rectal bleeding. Genitourinary: Denies dysuria, frequency, or change in urination. Musculoskeletal: Left shoulder pain. Denies neck or back pain. Skin and breasts: Denies rash or easy bruising. Neurologic: Denies headache, vertigo, loss of consciousness, or loss of sensation. PHYSICAL EXAM General Appearance: Well-appearing, appropriately dressed. No apparent distress. HEENT: EOMI, PERRLA, normal ENT inspection, normal voice, TMs normal, pharynx normal. No conjunctival pallor. No photophobia, scleral icterus. Neck: Supple. Trachea midline. No tenderness, rigidity, carotid bruit, stridor , lymphadenopathy, or thyromegaly. Respiratory/Chest: Lungs CTAB. Cardiovascular: RRR. S1, S2. Vascular Pulses: Dorsalis-Pedis (R): 2+, Dorsalis-Pedis (L): 2+ Gastrointestinal/Abdominal: Normal bowel sounds. Abdomen soft, non-distended. No tenderness or rebound tenderness. No organomegaly, pulsatile mass, guarding , hernia, hepatomegaly, splenomegaly. Lymphatic: No adenopathy, tenderness. Musculoskeletal/Extremities: Limited ROM to L shoulder secondary to pain. No midline tenderness to thoracic or lumbar spine. FROM of all other extremities, normal capillary refill. Pelvis Stable. No CVA tenderness. No tenderness to extremities, pedal edema, swelling, erythema or deformity. Integumentary: Appropriate color, dry, warm. 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 Fully oriented, alert. Appropriate mood/affect. Motor strength 5/5. No appreciable EOM palsy, facial droop or sensory deficit. 02/20/17 22:14 Past History - Past Medical History Allergies/Adverse Reactions: Allergies Allergy/AdvReac Type Severity Reaction Status Date / Time ampicillin [Ampicillin] Allergy Severe Swelling Verified 02/20/17 19:56 codeine [Codeine] Allergy Swelling Verified 02/20/17 19:56 Home Medications: Ambulatory Orders Digoxin [Lanoxin -] 0.125 mg PO DAILY tablet 05/27/16 Albuterol 2.5/Ipratropium 0.5 [Duoneb -] 1 neb NEB Q4H PRN 08/16/16 Warfarin Na [Coumadin -] 4 mg PO DAILY@1800 #30 tablet 08/25/16 Diltiazem Cd [Cardizem Cd -] 240 mg PO DAILY 08/30/16 Furosemide [Lasix -] 40 mg PO DAILY 08/30/16 Hydralazine HCl [Apresoline -] 10 mg PO BID #60 tablet 11/18/16 Diclofenac Sodium 50 mg PO TID #21 tablet. 02/21/17 Oxycodone HCl/Acetaminophen [Percocet 5-325 mg Tablet] 1 tab PO Q6H #20 tablet MDD 4 tab 02/21/17 Anemia: No Asthma: Yes Cancer: No Cardiac Disorders: Yes (AFIB) CVA: No COPD: Yes CHF: Yes Dementia: No Diabetes: No GI Disorders: No Disorders: No HTN: Yes Hypercholesterolemia: No Liver Disease: No Suicide Attempt (Hx): No Seizures: No Thyroid Disease: Yes (HYPO.) - Surgical History Abdominal Surgery: Yes (TUBAL LIGATION) Appendectomy: No Cardiac Surgery: No Cholecystectomy: No Lung Surgery: No Neurologic Surgery: No Orthopedic Surgery: No - Family Disease History Family Disease History: Diabetes: Father, Heart Disease: Father, Mother - Immunization History Immunization Up to Date: Yes - Psycho/Social/Smoking Cessation Hx Anxiety: No Suicidal Ideation: No Smoking Status: No Smoking History: Never smoked Have you smoked in the past 12 months: No Number of Cigarettes Smoked Daily: 0 Information on smoking cessation initiated: No Hx Alcohol Use: No Drug/Substance Use Hx: No Substance Use Type: None Hx Substance Use Treatment: No *Physical Exam - Vital Signs Last Vital Signs Temp Pulse Resp BP Pulse Ox 97.8 F 91 H 18 170/100 99 02/20/17 19:52 02/20/17 19:52 02/20/17 19:52 02/20/17 19:52 02/20/17 19:52 ED Treatment Course - LABORATORY CBC & Chemistry Diagram: 02/20/17 21:21 02/20/17 21:21 - ADDITIONAL ORDERS Additional order review: 02/20/17 21:21 RBC 4.58 MCV 91.4 MCHC 32.8 RDW 14.6 D MPV 9.5 Neutrophils % 77.0 Lymphocytes % 13.7 D Monocytes % 8.1 Eosinophils % 0.8 D Basophils % 0.4 - RADIOLOGY Radiology Studies Ordered: Category Date Time Status CHEST X-RAY PORTABLE* [RAD] Stat Radiology 02/20/17 20:52 Ordered SHOULDER-LEFT [RAD] Stat Radiology 02/20/17 20:53 Ordered - Medications Given in the ED: ED Medications Discontinued Medications Generic Name Dose Route Start Last Admin Trade Name Freq PRN Reason Stop Dose Admin Acetaminophen 1,000 mg 02/20/17 20:59 02/20/17 21:06 Tylenol - PO 02/20/17 21:00 1,000 mg ONCE ONE Administration Medical Decision Making - Medical Decision Making 02/20/17 22:18 76 yo F with hx of HTN, mitral insufficiency, atrial fibrillation (on Coumadin) , asthma, COPD, hyperthyroidism, and osteoarthritis presents to ED with left shoulder pain s/p fall. -CBC, CMP, PT/INR -L shoulder x-ray -UA, UC *DC/Admit/Observation/Transfer Diagnosis at time of Disposition: Shoulder injury Qualifiers: Encounter type: initial encounter Laterality: left Qualified Code(s): S49.92XA - Unspecified injury of left shoulder and upper arm, initial encounter - Discharge Dispostion Disposition: HOME Condition at time of disposition: Stable Admit: No - Prescriptions Prescriptions: Diclofenac Sodium 50 mg PO TID #21 tablet. Oxycodone HCl/Acetaminophen [Percocet 5-325 mg Tablet] 1 tab PO Q6H #20 tablet MDD 4 tab - Referrals Referrals: Joey Hernandez MD [Primary Care Provider] - Chalo Salas MD [Staff Physician] - - Patient Instructions Printed Discharge Instructions: DI for Shoulder Pain Additional Instructions: Please take medications as prescribed; do NOT drive or operate machinery while taking Percocet. Follow up with orthopedics tomorrow. If you experience any dizziness, headache, vomiting, change in mental status, difficulty speaking, swallowing, or walking, or develop any new or worsening symptoms, please return to the ER.
[2017-02-20 22:17] LABS: ALBUMIN 3.6 g/dl (3.4-5.0); ANION GAP 9 (8-16); BILIRUBIN,TOTAL 0.4 mg/dL (0.2-1.0); CALCIUM 8.9 mg/dL (8.5-10.1); CO2 30 mmol/L (21-32); CREATININE 0.9 mg/dL (0.55-1.02); GLUCOSE,RANDOM 118 mg/dL (74-106); SGOT/AST 17 U/L (15-37); SGPT/ALT 10 U/L (12-78); TOT PROT 6.7 g/dl (6.4-8.2)
[2017-02-20 22:18] LABS: ALK PHOS 88 U/L (45-117)
[2017-02-20] MEDS ORDERED: KETOROLAC TROMETHAMINE 60 MG/2 ML VIAL IM ONE (22:43)
[2017-02-20] MEDS ORDERED: KETOROLAC TROMETHAMINE 60 MG/2 ML VIAL ONE (23:05)
[2017-02-21] MEDS ORDERED: oxyCODONE HCL 5 MG TABLET PO ONE (00:09)
[2017-02-21] MEDS ORDERED: oxyCODONE HCL 5 MG TABLET ONE (00:29)
== END 2017-02-21 00:39 | disposition home or self-care (01) ==
LOC: JER 19:50
PROC: 3E0233Z Introduction of Anti-inflammatory into Muscle, Percutaneous Approach (ICD-10-PCS; principal; 2017-02-20)
DX: S49.92XA Unspecified injury of left shoulder and upper arm, initial encounter (principal); I10 Essential (primary) hypertension; I48.91 Unspecified atrial fibrillation; Z79.01 Long term (current) use of anticoagulants; J45.902 Unspecified asthma with status asthmaticus; J44.9 Chronic obstructive pulmonary disease, unspecified; E05.90 Thyrotoxicosis, unspecified without thyrotoxic crisis or storm; M19.90 Unspecified osteoarthritis, unspecified site; W18.30XA Fall on same level, unspecified, initial encounter; Y93.9 Activity, unspecified; Y92.9 Unspecified place or not applicable
CPT/HCPCS: 36415; 71010-TC; 73030-TC-LT; 80053; 85025; 85610; 99282-25

== ENCOUNTER 2017-03-06 12:06 | Inpatient (IN) | payer OTHER ==
--- NOTE | 2017-03-06 12:59 | PDOC ---
History of Present Illness - General History Source: Patient Exam Limitations: No Limitations - History of Present Illness Initial Comments: 03/06/17 13:55 The patient is a 76 year old female with a significant past medical history of hypertension, mitral insufficiency, A-fib, asthma, COPD, hypothyroidism, and osteoarthritis, presenting to the Emergency Department with shortness of breath and difficulty breathing since last night. The patient admits that the onset of her symptoms were sudden, and that her difficulty breathing has worsened since last night. She describes a tightness in her chest with the difficulty breathing. She admits that she is very short of breath, exacerbated by lying flat. The patient admits she is pausing when speaking due to the shortness of breath. She also admits to urinary frequency after taking furosemide. She denies increased activity level. She denies missing any medication dosages, and denies eating salty foods. She states that she last saw her PCP and manager erp about one month ago. The patient denies chest pain, or palpitations. Patient denies nausea, vomiting , and diarrhea. Patient denies cough, fever, and chills. Museum Host/Hostess: Dr. Hahn PCP: Dr. Hernandez <Susie Gómez - Last Filed: 03/06/17 15:32> <Liza Beatty - Last Filed: 03/06/17 18:36> - General Chief Complaint: Shortness of Breath Stated Complaint: SOB Time Seen by Provider: 03/06/17 12:57 Past History <Susie Gómez - Last Filed: 03/06/17 15:32> - Past Medical History Anemia: No Asthma: Yes Cancer: No Cardiac Disorders: Yes (AFIB) CVA: No COPD: Yes CHF: Yes Dementia: No Diabetes: No GI Disorders: No Disorders: No HTN: Yes Hypercholesterolemia: No Liver Disease: No Suicide Attempt (Hx): No Seizures: No Thyroid Disease: Yes (HYPO.) - Surgical History Abdominal Surgery: Yes (TUBAL LIGATION) Appendectomy: No Cardiac Surgery: No Cholecystectomy: No Lung Surgery: No Neurologic Surgery: No Orthopedic Surgery: No - Family Disease History Family Disease History: Diabetes: Father, Heart Disease: Father, Mother - Immunization History Immunization Up to Date: Yes - Psycho/Social/Smoking Cessation Hx Anxiety: No Suicidal Ideation: No Smoking Status: No Smoking History: Never smoked Have you smoked in the past 12 months: No Number of Cigarettes Smoked Daily: 0 Information on smoking cessation initiated: No Hx Alcohol Use: No Drug/Substance Use Hx: No Substance Use Type: None Hx Substance Use Treatment: No <Liza Beatty - Last Filed: 03/06/17 18:36> - Past Medical History Allergies/Adverse Reactions: Allergies Allergy/AdvReac Type Severity Reaction Status Date / Time ampicillin [Ampicillin] Allergy Severe Swelling Verified 03/06/17 12:15 codeine [Codeine] Allergy Swelling Verified 03/06/17 12:15 Home Medications: Ambulatory Orders Digoxin [Lanoxin -] 0.125 mg PO DAILY tablet 05/27/16 Albuterol 2.5/Ipratropium 0.5 [Duoneb -] 1 neb NEB Q4H PRN 08/16/16 Warfarin Na [Coumadin -] 4 mg PO DAILY@1800 #30 tablet 08/25/16 Diltiazem Cd [Cardizem Cd -] 240 mg PO DAILY 08/30/16 Furosemide [Lasix -] 40 mg PO DAILY 08/30/16 Hydralazine HCl [Apresoline -] 10 mg PO BID #60 tablet 11/18/16 Review of Systems - Review of Systems Able to Perform ROS?: Yes Comments:: 03/06/17 13:55 GENERAL/CONSTITUTIONAL: No fever or chills. No weakness. HEAD, EYES, EARS, NOSE AND THROAT: No change in vision. No ear pain or discharge. No sore throat. CARDIOVASCULAR: + shortness of breath, + difficulty breathing, + chest tightness. No chest pain. RESPIRATORY: No cough, wheezing, or hemoptysis. GASTROINTESTINAL: No nausea, vomiting, diarrhea or constipation. GENITOURINARY: + urinary frequency. No dysuria. MUSCULOSKELETAL: No joint or muscle swelling or pain. No neck or back pain. SKIN: No rash NEUROLOGIC: No headache, vertigo, loss of consciousness, or change in strength/ sensation. ENDOCRINE: No increased thirst. No abnormal weight change. HEMATOLOGIC/LYMPHATIC: No anemia, easy bleeding, or history of blood clots. ALLERGIC/IMMUNOLOGIC: No hives or skin allergy. <Susie Gómez - Last Filed: 03/06/17 15:32> *Physical Exam - Vital Signs Last Vital Signs Temp Pulse Resp BP Pulse Ox 97.4 F L 84 18 153/72 98 03/06/17 12:12 03/06/17 12:12 03/06/17 12:12 03/06/17 12:12 03/06/17 12:12 <DaliaSusie - Last Filed: 03/06/17 15:32> - Vital Signs Last Vital Signs Temp Pulse Resp BP Pulse Ox 97.4 F L 84 18 153/72 98 03/06/17 12:12 03/06/17 12:12 03/06/17 12:12 03/06/17 12:12 03/06/17 12:12 - Physical Exam Comments: GENERAL: Awake, alert, and fully oriented, in no acute distress HEAD: No signs of trauma EYES: PERRLA, EOMI, sclera anicteric, conjunctiva clear ENT: Auricles normal inspection, hearing grossly normal, nares patent, oropharynx clear without exudates. Moist mucosa NECK: Normal ROM, supple, no lymphadenopathy, JVD, or masses LUNGS: Good air entry B/L. Dec breath sounds at bases B/L. No wheezes, and no crackles HEART: Regular rate and rhythm, normal S1 and S2, no murmurs, rubs or gallops ABDOMEN: Soft, nontender, normoactive bowel sounds. No guarding, no rebound. No masses EXTREMITIES: Normal range of motion, 1+ pitting edema to BLE. No clubbing or cyanosis. No cords, erythema, or tenderness NEUROLOGICAL: Cranial nerves II through XII grossly intact. Normal speech, normal gait SKIN: Warm, Dry, normal turgor, no rashes or lesions noted. <Liza Beatty - Last Filed: 03/06/17 18:36> ED Treatment Course - LABORATORY CBC & Chemistry Diagram: 03/06/17 13:21 03/06/17 13:20 - ADDITIONAL ORDERS Additional order review: Laboratory Results 03/06/17 13:20 INR 1.29 H D 03/06/17 13:21 RBC 4.46 MCV 92.0 MCHC 33.1 RDW 14.5 MPV 9.0 Neutrophils % 64.0 Lymphocytes % 24.2 D Monocytes % 8.8 Eosinophils % 1.9 D Basophils % 1.1 - RADIOLOGY Radiograph Interpretation: 03/06/17 15:15 Chest XRay As reviewed by Dr. Racheal Griffith IMPRESSION: No significant change. <Susie Gómez - Last Filed: 03/06/17 15:32> - LABORATORY CBC & Chemistry Diagram: 03/06/17 13:21 03/06/17 13:20 <Liza Beatty - Last Filed: 03/06/17 18:36> Medical Decision Making - Medical Decision Making 03/06/17 15:05 Dr. Perez was called at the office at 3:00. The PROOF CLERK spoke to Dr. Beatty about the patient's care. <Susie Gómez - Last Filed: 03/06/17 15:32> - Medical Decision Making Findings on CXR and labs were not significant, however, exam was consistent with CHF exacerbation. She improved somewhat with lasix, but still out of breath on exertion. Will admit for further workup and treatment. <Liza Beatty - Last Filed: 03/06/17 18:36> *DC/Admit/Observation/Transfer - Attestations Scribe Attestion: 03/06/17 13:56 Documentation prepared by Susie Gómez, acting as certified ophthalmic medical technician for Liza Beatty MD. <Susie Gómez - Last Filed: 03/06/17 15:32> - Discharge Dispostion Admit: Yes <Liza Beatty - Last Filed: 03/06/17 18:36> Diagnosis at time of Disposition: CHF exacerbation Qualifiers: Congestive heart failure type: unspecified congestive heart failure type Qualified Code(s): I50.9 - Heart failure, unspecified - Discharge Dispostion Condition at time of disposition: Stable - Referrals
[2017-03-06 13:26] LABS: BASOPHIL 1.1 % (0-2.0); EOSINOPHIL 1.9 % (0-4.5); MCH 30.5 pg (25.7-33.7); MCHC 33.1 g/dl (32.0-36.0); PLATELET COUNT 204 K/MM3 (134-434); RDW 14.5 % (11.6-15.6); WHITE BLOOD COUNT 9.1 K/mm3 (4.0-10.0)
[2017-03-06 13:41] LABS: INR 1.29 (0.82-1.09); PROTHROMBIN TIME (PATIENT) 14.3 SEC (9.98-11.88)
[2017-03-06] MEDS ORDERED: FUROSEMIDE 40 MG/4 ML INJECTABLE VIAL IVPUSH ONE (13:57)
[2017-03-06 13:58] LABS: ALBUMIN 3.7 g/dl (3.4-5.0); ANION GAP 9 (8-16); BILIRUBIN,TOTAL 0.6 mg/dL (0.2-1.0); CALCIUM 9.3 mg/dL (8.5-10.1); CO2 31 mmol/L (21-32); CREATININE 0.8 mg/dL (0.55-1.02); GLUCOSE,RANDOM 93 mg/dL (74-106); SGOT/AST 15 U/L (15-37); SGPT/ALT 9 U/L (12-78); TOT PROT 6.8 g/dl (6.4-8.2)
[2017-03-06 14:01] LABS: ALK PHOS 94 U/L (45-117); TROPONIN I < 0.02 ng/ml (0.00-0.05)
[2017-03-06] MEDS ORDERED: FUROSEMIDE 40 MG/4 ML INJECTABLE VIAL ONE (14:05)
[2017-03-06] MEDS ORDERED: ENOXAPARIN NA (PORCINE) 40 MG/0.4 ML DISP.SYRIN SQ ONE (15:03)
[2017-03-06] MEDS ORDERED: ENOXAPARIN NA (PORCINE) 100 MG/1 ML DISP.SYRIN SQ ONE (15:20)
--- NOTE | 2017-03-06 16:02 | EKG ---
Test Reason : Blood Pressure : / mmHG Vent. Rate : 069 BPM Atrial Rate : 081 BPM P-R Int : 000 ms QRS Dur : 084 ms QT Int : 420 ms P-R-T Axes : 000 -25 -27 degrees QTc Int : 450 ms ATRIAL FIBRILLATION ABNORMAL ECG WHEN COMPARED WITH ECG OF 13-NOV-2016 18:09, NO SIGNIFICANT CHANGE WAS FOUND Confirmed by SHARAD JHA MD ([id number]) on 03/06/2017 4:01:58 PM Referred By: Confirmed By:SHARAD JHA MD
--- NOTE | 2017-03-06 16:54 | PN ---
Progress Note, Physician Chief Complaint: Shortness of breath History of Present Illness: 76F history of pulmonary embolism 05/2016 in setting of prolonged hospitalization for rectus sheath bleed, permanent AF on coumadin, chronic HTN, chronic diastolic CHF, mild to moderate MR, severe COPD admitted for 1 day of worsened BAL and mild b/l LE edema. Clinically improved in ER after dose IV lasix, was noted to have bibasilar rales on presentation. Denies palps, chest pain, fever, chills, cough. Chronic BAL, unchanged. No PND or syncope. INR noted to be subtherapeutic (was 2.4 in office on 02/24). Given Lovenox in ER. - Current Medication List Current Medications: Reviewed in EMR - Objective Vital Signs: Vital Signs Temperature 98.2 F 03/06/17 16:20 Pulse Rate 78 03/06/17 16:20 Respiratory Rate 16 03/06/17 16:20 Blood Pressure 152/96 03/06/17 16:20 O2 Sat by Pulse Oximetry (%) 99 03/06/17 15:24 Constitutional: Yes: No Distress Eyes: Yes: Conjunctiva Clear Cardiovascular: Yes: Pulse Irregular Respiratory: Yes: Other (bibasilar rales 1.3 up L>R; no wheezing) Gastrointestinal: Yes: Soft, Abdomen, Obese (nontender) Edema: Yes Edema: LUE: Trace, RUE: Trace, LLE: 1+, RLE: 1+ Neurological: Yes: Alert, Oriented Labs: INR, PTT INR 1.29 (0.82-1.09) H D 03/06/17 13:20 - ....Imaging EKG: Image Reviewed (AF, no acute ST changes) Other: Other (Echo 11/2016: Nl biV fxn, moderate MR, severe TR, RVSP 60 Dobutamine nuclear 04/2015:99% achieved, breast attenuation, no ischemia Holter : afib with average rate 76, no pauses) Problem List - Problems (1) CHF exacerbation Code(s): I50.9 - HEART FAILURE, UNSPECIFIED Qualifiers: Congestive heart failure type: diastolic Qualified Code(s): I50.33 - Acute on chronic diastolic (congestive) heart failure (2) Atrial fibrillation Code(s): I48.91 - UNSPECIFIED ATRIAL FIBRILLATION Qualifiers: Atrial fibrillation type: permanent Qualified Code(s): I48.2 - Chronic atrial fibrillation (3) Hypertension Code(s): I10 - ESSENTIAL (PRIMARY) HYPERTENSION Qualifiers: Hypertension type: essential hypertension Qualified Code(s): I10 - Essential (primary) hypertension (4) Left atrial dilatation Code(s): I51.7 - CARDIOMEGALY (5) Mitral regurgitation Code(s): I34.0 - NONRHEUMATIC MITRAL (VALVE) INSUFFICIENCY Qualifiers: Cardiac valve disease etiology: nonrheumatic Qualified Code(s): I34.0 - Nonrheumatic mitral (valve) insufficiency (6) Pulmonary embolism on long-term anticoagulation therapy Code(s): I26.99 - OTHER PULMONARY EMBOLISM WITHOUT ACUTE COR PULMONALE Z79.01 - MANAGEMENT ENGINEER (CURRENT) USE OF ANTICOAGULANTS (7) COPD (chronic obstructive pulmonary disease) with chronic bronchitis Code(s): J44.9 - CHRONIC OBSTRUCTIVE PULMONARY DISEASE, UNSPECIFIED (8) Pulmonary arterial hypertension Code(s): I27.2 - OTHER SECONDARY PULMONARY HYPERTENSION (9) Subtherapeutic anticoagulation Code(s): Z51.81 - ENCOUNTER FOR THERAPEUTIC DRUG LEVEL MONITORING Z79.01 - JAIL (CURRENT) USE OF ANTICOAGULANTS Assessment/Plan IMP: Mild, acute exacerbation of chronic diastolic CHF Permanent AF Hypertension with hypertensive heart disease, left atrial enlargement Moderate MR PHTN Chronic COPD History of pulmonary embolism Subtherapeutic INR REC: 1. Acute on chronic diastolic CHF: -echo this year normal LV fxn, mild to moderate MR -This episode may have been precipitated by elevated BP -need to assure AF rates are controlled -Telemetry -monitor BP with goal < 140/90 -Cycle cardiac enzymes -Continue Lasix 40mg IV daily for additional day 2. AF: permanent -INR subtherapeutic -Continue Lovenox bridge 1mg/kg SQ BID until INR 2-3 -Alternatively, can switch to NOAC (Eliquis 5mg BID). -Continue home meds -Tele to assess rate control 3. HTN: -Above goal on admission -Monitor trend, continue home meds -Goal 140/90 4. Moderate MR: -Echo this year 11/2016 w/ mild to mod MR, normal LV and severe PHTN -No need to repeat at this time 5. PHTN: -known, severe likely due to COPD, obesity, diastolic CHF and probable YOLANDA -Optimize COPD regimen -Outpatient sleep study 6. History PE: -05/2016 while hospitalized -Continue AC which is needed for AF 7. Subtherapeutic INR: -as above -Can bridge with Lovenox to INR 2-3 or switch to NOAC
[2017-03-06 17:06] VITALS: BMI 34.7
[2017-03-06] MEDS ORDERED: hydrALAZINE HCL 25 MG TABLET (FP) PO ONE (17:30)
[2017-03-06] MEDS: WARFARIN NA 7.5 MG TABLET (FP) PO SCH (17:37)
[2017-03-06] MEDS: ALBUTEROL SO4 2.5/IPRATROPIUM 0.5 INH SOL 3 ML VIAL.NEB. NEB SCH ×2 (17:50→22:30)
[2017-03-06] MEDS ORDERED: WARFARIN NA 7.5 MG TABLET (FP) PO SCH (18:00)
[2017-03-06] MEDS ORDERED: HEPARIN NA (PORCINE) 5,000 UNITS/ML 1ML VIAL SQ SCH (22:00)
[2017-03-06] MEDS ORDERED: hydrALAZINE HCL 10 MG TABLET PO SCH (22:00)
[2017-03-06] MEDS: hydrALAZINE HCL 10 MG TABLET PO SCH (22:58)
[2017-03-07] MEDS: ALBUTEROL SO4 2.5/IPRATROPIUM 0.5 INH SOL 3 ML VIAL.NEB. NEB SCH ×6 (02:16→21:48)
[2017-03-07] MEDS: ENOXAPARIN NA (PORCINE) 100 MG/1 ML DISP.SYRIN SQ SCH ×2 (06:24→18:16)
[2017-03-07 07:19] LABS: BASOPHIL 0.6 % (0-2.0); EOSINOPHIL 2.4 % (0-4.5); MCHC 33.8 g/dl (32.0-36.0); MEAN CELL VOLUME 91.6 fl (80-96); NEUTROPHILS 60.7 % (42.8-82.8); PLATELET COUNT 186 K/MM3 (134-434); RDW 14.5 % (11.6-15.6)
[2017-03-07 07:43] LABS: INR 1.45 (0.82-1.09); PROTHROMBIN TIME (PATIENT) 16.1 SEC (9.98-11.88)
[2017-03-07 07:52] LABS: ANION GAP 6 (8-16); CALCIUM 8.7 mg/dL (8.5-10.1); CHOLESTEROL 188 mg/dL (50-200); CO2 31 mmol/L (21-32); CREATININE 0.8 mg/dL (0.55-1.02); GLUCOSE,RANDOM 105 mg/dL (74-106); MAGNESIUM 2.1 mg/dL (1.8-2.4); SGOT/AST 15 U/L (15-37); SGPT/ALT 9 U/L (12-78); TOT PROT 5.5 g/dl (6.4-8.2)
[2017-03-07 07:54] LABS: ALK PHOS 78 U/L (45-117); BILIRUBIN,TOTAL 0.7 mg/dL (0.2-1.0); LDL CHOLESTEROL (ONLY SJRH) 121 mg/dL (5-100)
--- NOTE | 2017-03-07 08:58 | PN ---
Progress Note, Physician Chief Complaint: comfortable, no distress TELE: reviewed. AF with rates < 100bpm. Rare periods in 120s but overall well controlled. No pauses. - Current Medication List Current Medications: Active Medications Albuterol/Ipratropium (Duoneb -) 1 amp NEB Q4HPO [facility] Last Admin: 03/07/17 06:25 Dose: 1 amp Aspirin (Ecotrin -) 81 mg PO DAILY [facility] Digoxin (Lanoxin -) 0.125 mg PO DAILY [facility] Diltiazem HCl (Cardizem Cd -) 240 mg PO DAILY [facility] Enoxaparin Sodium (Lovenox -) 90 mg SQ Q12H [facility] Last Admin: 03/07/17 06:24 Dose: 90 mg Furosemide (Lasix Injection -) 40 mg IVPUSH DAILY [facility] Hydralazine HCl (Apresoline -) 10 mg PO BID [facility] Last Admin: 03/06/17 22:58 Dose: 10 mg Ranitidine HCl (Zantac -) 150 mg PO DAILY [facility] Warfarin Sodium (Coumadin -) 7.5 mg PO DAILY@1800 [facility] Last Admin: 03/06/17 17:37 Dose: 7.5 mg - Objective Vital Signs: Vital Signs Temperature 98.2 F 03/07/17 08:05 Pulse Rate 78 03/07/17 08:05 Respiratory Rate 14 03/07/17 08:05 Blood Pressure 154/98 03/07/17 08:05 O2 Sat by Pulse Oximetry (%) 99 03/06/17 21:00 Constitutional: Yes: No Distress Eyes: Yes: Conjunctiva Clear Cardiovascular: Yes: Pulse Irregular Respiratory: Yes: Other (bibasilar rales, improved from yesterday) Gastrointestinal: Yes: Soft (non-tender) Edema: Yes Edema: LLE: 1+, RLE: 1+ Neurological: Yes: Alert, Oriented Labs: CBC, BMP 03/07/17 05:35 03/07/17 05:35 INR, PTT INR 1.45 (0.82-1.09) H 03/07/17 05:35 Laboratory Tests 03/07/17 03/07/17 03/07/17 05:35 05:35 05:35 WBC 8.0 Hct 38.1 Plt Count 186 INR 1.45 H Potassium 3.6 Creatinine 0.8 - ....Imaging EKG: Image Reviewed Problem List - Problems (1) CHF exacerbation Code(s): I50.9 - HEART FAILURE, UNSPECIFIED Qualifiers: Congestive heart failure type: diastolic Qualified Code(s): I50.33 - Acute on chronic diastolic (congestive) heart failure (2) Atrial fibrillation Code(s): I48.91 - UNSPECIFIED ATRIAL FIBRILLATION Qualifiers: Atrial fibrillation type: permanent Qualified Code(s): I48.2 - Chronic atrial fibrillation (3) Hypertension Code(s): I10 - ESSENTIAL (PRIMARY) HYPERTENSION Qualifiers: Hypertension type: essential hypertension Qualified Code(s): I10 - Essential (primary) hypertension (4) Left atrial dilatation Code(s): I51.7 - CARDIOMEGALY (5) Mitral regurgitation Code(s): I34.0 - NONRHEUMATIC MITRAL (VALVE) INSUFFICIENCY Qualifiers: Cardiac valve disease etiology: nonrheumatic Qualified Code(s): I34.0 - Nonrheumatic mitral (valve) insufficiency (6) Pulmonary embolism on long-term anticoagulation therapy Code(s): I26.99 - OTHER PULMONARY EMBOLISM WITHOUT ACUTE COR PULMONALE Z79.01 - SENIOR LIVING (CURRENT) USE OF ANTICOAGULANTS (7) COPD (chronic obstructive pulmonary disease) with chronic bronchitis Code(s): J44.9 - CHRONIC OBSTRUCTIVE PULMONARY DISEASE, UNSPECIFIED (8) Pulmonary arterial hypertension Code(s): I27.2 - OTHER SECONDARY PULMONARY HYPERTENSION (9) Subtherapeutic anticoagulation Code(s): Z51.81 - ENCOUNTER FOR THERAPEUTIC DRUG LEVEL MONITORING Z79.01 - SENIOR LIVING (CURRENT) USE OF ANTICOAGULANTS Assessment/Plan IMP: Mild, acute exacerbation of chronic diastolic CHF Permanent AF Hypertension with hypertensive heart disease, left atrial enlargement Moderate MR PHTN Chronic COPD History of pulmonary embolism Subtherapeutic INR REC: 1. Acute on chronic diastolic CHF: -echo this year normal LV fxn, mild to moderate MR -suspect precipitant uncontrolled BP -need to assure AF rates are controlled, thus far average rates are adequate -Telemetry -monitor BP with goal < 140/90 -Cycle cardiac enzymes -Continue Lasix 40mg IV daily for additional day 2. AF: permanent -INR subtherapeutic -Continue Lovenox bridge 1mg/kg SQ BID until INR 2-3 -Alternatively, can switch to NOAC (Eliquis 5mg BID). -Continue home meds -Tele to assess rate control 3. HTN: -Above goal. Will add Losartan for BP reduction and afterload reduction -Monitor trend -Goal 140/90 4. Moderate MR: -Echo this year 11/2016 w/ mild to mod MR, normal LV and severe PHTN -No need to repeat at this time 5. PHTN: -known, severe likely due to COPD, obesity, diastolic CHF and probable YOLANDA -Optimize COPD regimen -Outpatient sleep study 6. History PE: -05/2016 while hospitalized -Continue AC which is needed for AF 7. Subtherapeutic INR: -as above -Can bridge with Lovenox to INR 2-3 or switch to NOAC
[2017-03-07] MEDS: hydrALAZINE HCL 10 MG TABLET PO SCH ×2 (09:41→21:03)
[2017-03-07] MEDS: ASPIRIN COATED 81 MG TABLET.EC PO SCH (09:41)
[2017-03-07] MEDS: RANITIDINE HCL 150 MG TABLET (FP) PO SCH (09:41)
[2017-03-07] MEDS: DIGOXIN 0.125 MG TABLET (FP) PO SCH (09:42)
[2017-03-07] MEDS ORDERED: FUROSEMIDE 40 MG/4 ML INJECTABLE VIAL IVPUSH SCH (10:00)
[2017-03-07] MEDS ORDERED: DIGOXIN 0.125 MG TABLET (FP) PO SCH (10:00)
[2017-03-07] MEDS: LOSARTAN POTASSIUM 25 MG TABLET PO SCH (10:52)
[2017-03-07 11:51] LABS: TROPONIN I < 0.02 ng/ml (0.00-0.05)
--- NOTE | 2017-03-07 12:23 | PN ---
Progress Note (short form) - Note Progress Note: PULMONARY CONSULTATION DICTATED 03/07/17 IMP DYSPNEA CHF DECOMPENSATED ASTHMA CHRONIC PERSISTENT PULMONARY HTN HTN AFIB H/O PE PLAN INHALED BRONCHODILATORS NASAL O2 LASIX DAILY WTS ANTICOAGULATION DR YE Problem List - Problems (1) CHF exacerbation Code(s): I50.9 - HEART FAILURE, UNSPECIFIED Qualifiers: Congestive heart failure type: diastolic Qualified Code(s): I50.33 - Acute on chronic diastolic (congestive) heart failure (2) COPD (chronic obstructive pulmonary disease) with chronic bronchitis Code(s): J44.9 - CHRONIC OBSTRUCTIVE PULMONARY DISEASE, UNSPECIFIED (3) Pulmonary arterial hypertension Code(s): I27.2 - OTHER SECONDARY PULMONARY HYPERTENSION (4) Pulmonary embolism on long-term anticoagulation therapy Code(s): I26.99 - OTHER PULMONARY EMBOLISM WITHOUT ACUTE COR PULMONALE Z79.01 - TELEPHONE CLERK (CURRENT) USE OF ANTICOAGULANTS (5) Subtherapeutic anticoagulation Code(s): Z51.81 - ENCOUNTER FOR THERAPEUTIC DRUG LEVEL MONITORING Z79.01 - LONG-TERM (CURRENT) USE OF ANTICOAGULANTS (6) Atrial fibrillation Code(s): I48.91 - UNSPECIFIED ATRIAL FIBRILLATION Qualifiers: Atrial fibrillation type: permanent Qualified Code(s): I48.2 - Chronic atrial fibrillation (7) CHF (congestive heart failure) Code(s): I50.9 - HEART FAILURE, UNSPECIFIED Qualifiers: Congestive heart failure type: unspecified congestive heart failure type Congestive heart failure chronicity: acute Qualified Code(s): I50.9 - Heart failure, unspecified (8) Dyspnea Code(s): R06.00 - DYSPNEA, UNSPECIFIED (9) Hypertension Code(s): I10 - ESSENTIAL (PRIMARY) HYPERTENSION Qualifiers: Hypertension type: essential hypertension Qualified Code(s): I10 - Essential (primary) hypertension (10) Pulmonary hypertension Code(s): I27.2 - OTHER SECONDARY PULMONARY HYPERTENSION (11) Asthma Code(s): J45.909 - UNSPECIFIED ASTHMA, UNCOMPLICATED
--- NOTE | 2017-03-07 13:14 | PN ---
Progress Note, Physician Chief Complaint: Shortness of breath History of Present Illness: 76F history of pulmonary embolism 05/2016, permanent AF on coumadin, chronic HTN , chronic diastolic CHF, mild to moderate MR, severe COPD admitted for 1 day of worsened BAL and mild b/l LE edema. Clinically improved in ER after dose IV lasix. - Current Medication List Current Medications: Active Medications Albuterol/Ipratropium (Duoneb -) 1 amp NEB Q4HPO [facility] Last Admin: 03/07/17 10:00 Dose: 1 amp Aspirin (Ecotrin -) 81 mg PO DAILY [facility] Last Admin: 03/07/17 09:41 Dose: 81 mg Digoxin (Lanoxin -) 0.125 mg PO DAILY [facility] Last Admin: 03/07/17 09:42 Dose: 0.125 mg Diltiazem HCl (Cardizem Cd -) 240 mg PO DAILY [facility] Last Admin: 03/07/17 09:41 Dose: 240 mg Enoxaparin Sodium (Lovenox -) 90 mg SQ Q12H [facility] Last Admin: 03/07/17 06:24 Dose: 90 mg Furosemide (Lasix Injection -) 40 mg IVPUSH DAILY [facility] Last Admin: 03/07/17 09:42 Dose: 40 mg Hydralazine HCl (Apresoline -) 10 mg PO BID [facility] Last Admin: 03/07/17 09:41 Dose: 10 mg Losartan Potassium (Cozaar -) 25 mg PO DAILY [facility] Last Admin: 03/07/17 10:52 Dose: 25 mg Ranitidine HCl (Zantac -) 150 mg PO DAILY [facility] Last Admin: 03/07/17 09:41 Dose: 150 mg Warfarin Sodium (Coumadin -) 7.5 mg PO DAILY@1800 [facility] Last Admin: 03/06/17 17:37 Dose: 7.5 mg - Objective Vital Signs: Vital Signs Temperature 98.2 F 03/07/17 08:05 Pulse Rate 78 03/07/17 09:42 Respiratory Rate 14 03/07/17 08:05 Blood Pressure 154/98 03/07/17 08:05 O2 Sat by Pulse Oximetry (%) 96 03/07/17 09:00 Constitutional: Yes: Well Nourished, No Distress, Calm Cardiovascular: Yes: Pulse Irregular, Murmur, S1, S2 Respiratory: Yes: WNL, Regular Gastrointestinal: Yes: Normal Bowel Sounds Musculoskeletal: Yes: WNL Extremities: Yes: WNL Edema: No Labs: CBC, BMP 03/07/17 05:35 03/07/17 05:35 INR, PTT INR 1.45 (0.82-1.09) H 03/07/17 05:35 Problem List - Problems (1) Asthma Code(s): J45.909 - UNSPECIFIED ASTHMA, UNCOMPLICATED (2) CHF exacerbation Assessment/Plan: Chest Xray normal Looks okay today, NAD Code(s): I50.9 - HEART FAILURE, UNSPECIFIED Qualifiers: Congestive heart failure type: diastolic Qualified Code(s): I50.33 - Acute on chronic diastolic (congestive) heart failure (3) COPD (chronic obstructive pulmonary disease) with chronic bronchitis Assessment/Plan: Neb tx Stable Code(s): J44.9 - CHRONIC OBSTRUCTIVE PULMONARY DISEASE, UNSPECIFIED Assessment/Plan Change IV diuretic to PO Start Eliquis for non valvular A-fib OK to discharged in AM if stable
--- NOTE | 2017-03-07 16:42 | CONS ---
PULMONARY CONSULTATION DATE OF CONSULTATION: 03/07/2017 REFERRING PHYSICIAN: Escobar Perez MD HISTORY OF PRESENT ILLNESS: Ms. Magaña is a 76-year-old black female known to me from previous hospitalizations as well as office followup. She has a past medical history of chronic persistent asthma, multiple hospitalizations secondary to asthma exacerbations, pulmonary emboli in May 2016, rectus sheath hematoma, permanent atrial fibrillation on Coumadin, hypertension, diastolic congestive heart failure, mild to moderate mitral regurgitation admitted to [facility] with a complaint of a one-day history of increasing shortness of breath, dyspnea on exertion and lower extremity edema. The patient denied any complaints of chest pain, nausea, vomiting or diaphoresis. Denied any cough, hemoptysis or significant wheezing. She presented to the emergency room. While in the ER, she was administered Lasix with good clinical improvement. Apparently, on admission, she was noted to have bibasilar crackles. She was admitted to telemetry for further management. SOCIAL HISTORY: The patient is a nonsmoker. There is no history of occupational exposure to chemicals or fumes. There has been no recent travel. PAST MEDICAL HISTORY: Chronic persistent asthma, hypertension, diastolic congestive heart failure, mild to moderate mitral regurgitation, pulmonary embolism and atrial fibrillation. REVIEW OF SYSTEMS: No orthopnea. Positive dyspnea on exertion. No chest pain, no palpitation, no cough, no hemoptysis. Positive lower extremity edema. MEDICATIONS: Cozaar 25 mg daily, Lovenox 90 subcutaneous q 12, Coumadin 7.5 daily, DuoNeb q 4 h p.r.n, Cardizem CD, Lanoxin, Apresoline, Zantac, Lasix and Ecotrin. PHYSICAL EXAMINATION: General: Ms. Magaña is a well-developed, well-nourished female, awake and alert, currently in no acute distress. Vital signs: She is currently afebrile. Blood pressure is 154/98. Respiratory rate is 14. O2 saturation is 96% on room air. HEENT: Normocephalic, atraumatic. NECK: Supple. Heart: Irregularly regular. Normal S1, S2. Chest: A few bibasilar crackles. Abdomen: Soft. Positive bowel sounds. Extremities: Trace bilateral lower extremity edema. LABS: BUN is 11, creatinine 0.8. INR is 1.45. WBCs 18. Hemoglobin 12.9. Hematocrit 38.1 with a platelet count of 186,000. BNP is 333,000. Chest x-ray: There are no infiltrates, no effusions. IMPRESSION: 1. Dyspnea, most likely secondary to congestive heart failure. 2. Chronic persistent asthma. 3. Pulmonary hypertension. 4. Permanent atrial fibrillation. 5. History of pulmonary emboli. PLAN: 1. Continue Lasix. 2. Inhaled bronchodilators. 3. Supplemental O2. 4. Monitor peak flow. 5. Daily weights. 6. Lovenox until INR is therapeutic. 7. Monitor blood pressure. VANDANA YE M.D. KARINA/[id number]
[2017-03-07] MEDS: WARFARIN NA 7.5 MG TABLET (FP) PO SCH (18:16)
--- NOTE | 2017-03-08 01:09 | CONSULT ---
Consult Consult Specialty:: endocrine Referred by:: dr.rabadi dueñas Reason for Consultation:: hyperthyroidism - History of Present Illness Chief Complaint: shortness of breath difficulty breathing History of Present Illness: 76 year old female with a significant past medical history of hypertension, mitral insufficiency, A-fib, asthma, COPD, hypothyroidism, and osteoarthritis, presenting to the Emergency Department with shortness of breath and difficulty breathing since last night. The patient admits that the onset of her symptoms were sudden, and that her difficulty breathing has worsened since last night unable to rest,feeling weak anxious palpitations - History Source History Provided By: Patient - Past Medical History Cardio/Vascular: Yes: AFIB (REFUSED ANTICOAGULATION IN PAST NOW ON COUMADIN), HTN, Mitral Insufficiency Pulmonary: Yes: Asthma, Bronchitis, COPD Gastrointestinal: Yes: GERD ...: No Musculoskeletal: Yes: Osteoarthritis Endocrine: Yes: Hyperthyroidism. No: Diabetes Mellitus Additional Medical History: LEFT POPLITEAL DVT - Past Surgical History Past Surgical History: Yes: Tubal Ligation - Alcohol/Substance Use Hx Alcohol Use: No - Smoking History Smoking history: Never smoked Have you smoked in the past 12 months: No Aproximately how many cigarettes per day: 0 - Social History ADL: Independent History of Recent Travel: No Home Medications - Allergies Allergies/Adverse Reactions: Allergies Allergy/AdvReac Type Severity Reaction Status Date / Time ampicillin [Ampicillin] Allergy Severe Swelling Verified 03/06/17 12:15 codeine [Codeine] Allergy Swelling Verified 03/06/17 12:15 - Home Medications Home Medications: Ambulatory Orders Digoxin [Lanoxin -] 0.125 mg PO DAILY tablet 05/27/16 Albuterol 2.5/Ipratropium 0.5 [Duoneb -] 1 neb NEB Q4H PRN 08/16/16 Warfarin Na [Coumadin -] 4 mg PO DAILY@1800 #30 tablet 08/25/16 Diltiazem Cd [Cardizem Cd -] 240 mg PO DAILY 08/30/16 Furosemide [Lasix -] 40 mg PO DAILY 08/30/16 Hydralazine HCl [Apresoline -] 10 mg PO BID #60 tablet 11/18/16 Family Disease History - Family Disease History Family Disease History: Diabetes: Father (HTN) Review of Systems - Review of Systems Constitutional: reports: Loss of Appetite, Weakness Eyes: reports: No Symptoms HENT: reports: No Symptoms Neck: reports: Swollen Glands Cardiovascular: reports: Palpitations, Shortness of Breath Respiratory: reports: Exercise Intolerance, SOB, SOB on Exertion Gastrointestinal: reports: Bloating Genitourinary: reports: No Symptoms Breasts: reports: No Symptoms Reported Musculoskeletal: reports: Muscle Pain, Muscle Cramps, Muscle Weakness Integumentary: reports: No Symptoms Neurological: reports: Tremors Endocrine: reports: Unexplained Weight Gain Hematology/Lymphatic: reports: No Symptoms Physical Exam Vital Signs: Vital Signs Temperature 98 F 03/07/17 22:08 Pulse Rate 82 03/07/17 22:08 Respiratory Rate 16 03/07/17 22:08 Blood Pressure 140/87 03/07/17 22:08 O2 Sat by Pulse Oximetry (%) 100 03/07/17 20:10 Constitutional: Yes: Anxious Eyes: Yes: EOM Intact HENT: Yes: Normocephalic Neck: Yes: Thyromegaly Cardiovascular: Yes: Tachycardia Respiratory: Yes: On Nasal O2, Tachypnea Gastrointestinal: Yes: Normal Bowel Sounds ...Rectal Exam: Yes: Deferred Renal/: Yes: WNL Breast(s): Yes: WNL Musculoskeletal: Yes: WNL Extremities: Yes: WNL Edema: No Peripheral Pulses WNL: Yes Neurological: Yes: Alert, Oriented, Weakness Labs: CBC, BMP 03/07/17 05:35 03/07/17 05:35 Problem List - Problems (1) Asthma Code(s): J45.909 - UNSPECIFIED ASTHMA, UNCOMPLICATED (2) CHF exacerbation Code(s): I50.9 - HEART FAILURE, UNSPECIFIED Qualifiers: Congestive heart failure type: diastolic Qualified Code(s): I50.33 - Acute on chronic diastolic (congestive) heart failure (3) COPD (chronic obstructive pulmonary disease) with chronic bronchitis Code(s): J44.9 - CHRONIC OBSTRUCTIVE PULMONARY DISEASE, UNSPECIFIED (4) Acute asthma exacerbation Code(s): J45.901 - UNSPECIFIED ASTHMA WITH (ACUTE) EXACERBATION Qualifiers: (5) Thyroiditis Code(s): E06.9 - THYROIDITIS, UNSPECIFIED Assessment/Plan Current Active Problems Asthma (Acute) CHF exacerbation (Acute) COPD (chronic obstructive pulmonary disease) with chronic bronchitis (Acute) Pulmonary arterial hypertension (Acute) Pulmonary embolism on long-term anticoagulation therapy (Acute) Subtherapeutic anticoagulation (Acute) hyperthyroidism sp tapazole therapy Laboratory Results - last 24 hr 03/07/17 03/07/17 03/07/17 05:35 05:35 05:35 WBC 8.0 RBC 4.16 Hgb 12.9 Hct 38.1 MCV 91.6 MCHC 33.8 RDW 14.5 Plt Count 186 MPV 9.0 Neutrophils % 60.7 Lymphocytes % 26.8 Monocytes % 9.5 Eosinophils % 2.4 Basophils % 0.6 INR 1.45 H Sodium 142 Potassium 3.6 Chloride 105 Carbon Dioxide 31 Anion Gap 6 L BUN 11 Creatinine 0.8 Creat Clearance w eGFR > 60 Random Glucose 105 Calcium 8.7 Magnesium 2.1 Total Bilirubin 0.7 AST 15 ALT 9 L Alkaline Phosphatase 78 Creatine Kinase 101 Troponin I < 0.02 Total Protein 5.5 L Albumin 3.0 L Triglycerides 120 Cholesterol 188 Total LDL Cholesterol 121 H HDL Cholesterol 54 03/07/17 05:35 WBC RBC Hgb Hct MCV MCHC RDW Plt Count MPV Neutrophils % Lymphocytes % Monocytes % Eosinophils % Basophils % INR Sodium Potassium Chloride Carbon Dioxide Anion Gap BUN Creatinine Creat Clearance w eGFR Random Glucose Calcium Magnesium Total Bilirubin AST ALT Alkaline Phosphatase Creatine Kinase Cancelled Troponin I Cancelled Total Protein Albumin Triglycerides Cholesterol Total LDL Cholesterol HDL Cholesterol Laboratory Tests 02/25/17 12:47 TSH 0.43 D plan: Current Medications Generic Name Dose Route Start Last Admin Trade Name Damirq PRN Reason Stop Dose Admin Albuterol/Ipratropium 1 amp 03/06/17 18:00 03/07/17 21:48 Duoneb - NEB 1 amp Q4HPO [facility] Administration Aspirin 81 mg 03/07/17 10:00 03/07/17 09:41 Ecotrin - PO 81 mg DAILY [facility] Administration Digoxin 0.125 mg 03/07/17 10:00 03/07/17 09:42 Lanoxin - PO 0.125 mg DAILY [facility] Administration Diltiazem HCl 240 mg 03/07/17 10:00 03/07/17 09:41 Cardizem Cd - PO 240 mg DAILY [facility] Administration Enoxaparin Sodium 90 mg 03/07/17 06:00 03/07/17 18:16 Lovenox - SQ 90 mg Q12H [facility] Administration Furosemide 40 mg 03/08/17 10:00 Lasix - PO DAILY [facility] Hydralazine HCl 10 mg 03/06/17 22:00 03/07/17 21:03 Apresoline - PO 10 mg BID [facility] Administration Losartan Potassium 25 mg 03/07/17 10:00 03/07/17 10:52 Cozaar - PO 25 mg DAILY [facility] Administration Ranitidine HCl 150 mg 03/07/17 10:00 03/07/17 09:41 Zantac - PO 150 mg DAILY [facility] Administration Warfarin Sodium 7.5 mg 03/06/17 18:00 03/07/17 18:16 Coumadin - PO 7.5 mg DAILY@1800 [facility] Administration check tsh and free t4 hb a1c ct chest lung nodule reassesment history pe chcf anticoagulation
[2017-03-08] MEDS: ALBUTEROL SO4 2.5/IPRATROPIUM 0.5 INH SOL 3 ML VIAL.NEB. NEB SCH ×4 (02:10→14:39)
[2017-03-08] MEDS: ENOXAPARIN NA (PORCINE) 100 MG/1 ML DISP.SYRIN SQ SCH ×2 (06:13→15:37)
[2017-03-08 08:29] LABS: INR 1.89 (0.82-1.09); PROTHROMBIN TIME (PATIENT) 21.1 SEC (9.98-11.88)
--- NOTE | 2017-03-08 08:59 | PN ---
Progress Note, Physician - Current Medication List Current Medications: Active Medications Albuterol/Ipratropium (Duoneb -) 1 amp NEB Q4HPO [facility] Last Admin: 03/08/17 06:54 Dose: 1 amp Aspirin (Ecotrin -) 81 mg PO DAILY [facility] Last Admin: 03/07/17 09:41 Dose: 81 mg Digoxin (Lanoxin -) 0.125 mg PO DAILY [facility] Last Admin: 03/07/17 09:42 Dose: 0.125 mg Diltiazem HCl (Cardizem Cd -) 240 mg PO DAILY [facility] Last Admin: 03/07/17 09:41 Dose: 240 mg Enoxaparin Sodium (Lovenox -) 90 mg SQ Q12H [facility] Last Admin: 03/08/17 06:13 Dose: 90 mg Furosemide (Lasix -) 40 mg PO DAILY [facility] Hydralazine HCl (Apresoline -) 10 mg PO BID [facility] Last Admin: 03/07/17 21:03 Dose: 10 mg Losartan Potassium (Cozaar -) 25 mg PO DAILY [facility] Last Admin: 03/07/17 10:52 Dose: 25 mg Ranitidine HCl (Zantac -) 150 mg PO DAILY [facility] Last Admin: 03/07/17 09:41 Dose: 150 mg Warfarin Sodium (Coumadin -) 7.5 mg PO DAILY@1800 [facility] Last Admin: 03/07/17 18:16 Dose: 7.5 mg - Objective Vital Signs: Vital Signs Temperature 95.4 F L 03/08/17 02:00 Pulse Rate 62 03/08/17 02:00 Respiratory Rate 20 03/08/17 02:00 Blood Pressure 137/78 03/08/17 02:00 O2 Sat by Pulse Oximetry (%) 100 03/07/17 20:10 Eyes: Yes: WNL, Conjunctiva Clear, EOM Intact HENT: Yes: WNL, Atraumatic, Normocephalic Neck: Yes: WNL, Supple, Trachea Midline Cardiovascular: Yes: Pulse Irregular, S1, S2 Respiratory: Yes: WNL, Regular, CTA Bilaterally Gastrointestinal: Yes: WNL, Normal Bowel Sounds Genitourinary: Yes: WNL Musculoskeletal: Yes: WNL Extremities: Yes: WNL Edema: Yes Integumentary: Yes: WNL Neurological: Yes: WNL, Alert, Oriented ...Motor Strength: WNL Psychiatric: Yes: WNL Labs: CBC, BMP 03/07/17 05:35 03/07/17 05:35 INR, PTT INR 1.45 (0.82-1.09) H 03/07/17 05:35 Assessment/Plan IMP: Mild, acute exacerbation of chronic diastolic CHF Permanent AF Hypertension with hypertensive heart disease, left atrial enlargement Moderate MR PHTN Chronic COPD History of pulmonary embolism Subtherapeutic INR REC: 1. Acute on chronic diastolic CHF: -echo this year normal LV fxn, mild to moderate MR -suspect precipitant uncontrolled BP -need to assure AF rates are controlled, thus far average rates are adequate -Telemetry -monitor BP with goal < 140/90 -Cycle cardiac enzymes -Continue Lasix 40mg IV daily for additional day 2. AF: permanent -INR subtherapeutic -Continue Lovenox bridge 1mg/kg SQ BID until INR 2-3 - -Continue home meds -af rate well conteiolled control 3. HTN: -Above goal. Will add Losartan for BP reduction and afterload reduction - 4. Moderate MR: -Echo this year 11/2016 w/ mild to mod MR, normal LV and severe PHTN -No need to repeat at this time 5. PHTN: -known, severe likely due to COPD, obesity, diastolic CHF and probable YOLANDA -Optimize COPD regimen -Outpatient sleep study 6. History PE: -05/2016 while hospitalized -Continue AC which is needed for AF 7. Subtherapeutic INR: -as above -Can bridge with Lovenox to INR 2-3 may repeate INR later today and if above 2 may d/c lovonox and f/u as the outpatient.
--- NOTE | 2017-03-08 09:00 | DS ---
Physical Examination Vital Signs: Vital Signs Temperature 95.4 F L 03/08/17 02:00 Pulse Rate 62 03/08/17 02:00 Respiratory Rate 20 03/08/17 02:00 Blood Pressure 137/78 03/08/17 02:00 O2 Sat by Pulse Oximetry (%) 100 03/07/17 20:10 Findings/Remarks: FEELS BETTER WANTS TO GO HOME D/W PT ELIQUIS--SHE IS REFUSING AT THIS TIME--WANTS TO STAY ON COUMADIN Cardiovascular: Yes: Pulse Irregular, S1, S2 Respiratory: Yes: Regular, CTA Bilaterally Gastrointestinal: Yes: Normal Bowel Sounds, Soft Labs: CBC, BMP 03/07/17 05:35 03/07/17 05:35 Discharge Summary Reason For Visit: CONGESTIVE HEART FAILURE Current Active Problems Asthma (Acute) CHF exacerbation (Acute) COPD (chronic obstructive pulmonary disease) with chronic bronchitis (Acute) Pulmonary arterial hypertension (Acute) Pulmonary embolism on long-term anticoagulation therapy (Acute) Subtherapeutic anticoagulation (Acute) Thyroiditis (Acute) Hospital Course: History of Present Illness: 76F history of pulmonary embolism 05/2016 in setting of prolonged hospitalization for rectus sheath bleed, permanent AF on coumadin, chronic HTN, chronic diastolic CHF, mild to moderate MR, severe COPD admitted for 1 day of worsened BAL and mild b/l LE edema. Clinically improved in ER after dose IV lasix, was noted to have bibasilar rales on presentation. Denies palps, chest pain, fever, chills, cough. Chronic BAL, unchanged. No PND or syncope. INR noted to be subtherapeutic (was 2.4 in office on 02/24). Given Lovenox in ER. - Problems (1) CHF exacerbation ON LASIX STABLE Code(s): I50.9 - HEART FAILURE, UNSPECIFIED Qualifiers: Congestive heart failure type: diastolic Qualified Code(s): I50.33 - Acute on chronic diastolic (congestive) heart failure (2) Atrial fibrillation ON COUMADIN--INR 1.89 ON LOVENOX REFUSES ELIQUIS Code(s): I48.91 - UNSPECIFIED ATRIAL FIBRILLATION Qualifiers: Atrial fibrillation type: permanent Qualified Code(s): I48.2 - Chronic atrial fibrillation (3) Hypertension MONITOR ON MEDS Code(s): I10 - ESSENTIAL (PRIMARY) HYPERTENSION Qualifiers: Hypertension type: essential hypertension Qualified Code(s): I10 - Essential (primary) hypertension (4) Left atrial dilatation Code(s): I51.7 - CARDIOMEGALY (5) Mitral regurgitation Code(s): I34.0 - NONRHEUMATIC MITRAL (VALVE) INSUFFICIENCY Qualifiers: Cardiac valve disease etiology: nonrheumatic Qualified Code(s): I34.0 - Nonrheumatic mitral (valve) insufficiency (6) Pulmonary embolism on long-term anticoagulation therapy Code(s): I26.99 - OTHER PULMONARY EMBOLISM WITHOUT ACUTE COR PULMONALE Z79.01 - SADDLE TREE STITCHER (CURRENT) USE OF ANTICOAGULANTS (7) COPD (chronic obstructive pulmonary disease) with chronic bronchitis NEBS' NO WHEEZING Code(s): J44.9 - CHRONIC OBSTRUCTIVE PULMONARY DISEASE, UNSPECIFIED Condition: Stable - Instructions Diet, Activity, Other Instructions: BLOOD TEST FOR COUMADIN WITHIN ONE WEEK Referrals: Joey Hernandez MD [Primary Care Provider] - 1 Week Disposition: HOME - Home Medications Comprehensive Discharge Medication List: Ambulatory Orders Digoxin [Lanoxin -] 0.125 mg PO DAILY tablet 05/27/16 Albuterol 2.5/Ipratropium 0.5 [Duoneb -] 1 neb NEB Q4H PRN 08/16/16 Diltiazem Cd [Cardizem Cd -] 240 mg PO DAILY 08/30/16 Furosemide [Lasix -] 40 mg PO DAILY 08/30/16 Hydralazine HCl [Apresoline -] 10 mg PO BID #60 tablet 11/18/16 Losartan Potassium [Cozaar -] 25 mg PO DAILY #30 tablet 03/08/17 Warfarin Na [Coumadin] 6 mg PO DAILY@1800 #90 tablet 03/08/17
[2017-03-08] MEDS ORDERED: FUROSEMIDE 40 MG TABLET (FP) PO SCH (10:00)
[2017-03-08 10:01] LABS: FREE T4 1.05 ng/dl (0.76-1.46); THYROID STIMULATING HORMONE 0.65 uIU/ml (0.358-3.74)
[2017-03-08] MEDS: DIGOXIN 0.125 MG TABLET (FP) PO SCH (10:45)
[2017-03-08] MEDS: ASPIRIN COATED 81 MG TABLET.EC PO SCH (10:45)
[2017-03-08] MEDS: LOSARTAN POTASSIUM 25 MG TABLET PO SCH (10:45)
[2017-03-08] MEDS: hydrALAZINE HCL 10 MG TABLET PO SCH (10:45)
[2017-03-08] MEDS: RANITIDINE HCL 150 MG TABLET (FP) PO SCH (10:45)
--- NOTE | 2017-03-08 14:21 | PN ---
Progress Note (short form) - Note Progress Note: Breathing feels a little better today. Intake & Output 03/05/17 03/06/17 03/07/17 03/08/17 23:59 23:59 23:59 23:59 Intake Total 300 200 400 Balance 300 200 400 Weight 190 lb 194 lb 9.6 oz 193 lb 4 oz Last Vital Signs Temp Pulse Resp BP Pulse Ox 95.4 F L 73 20 137/78 100 03/08/17 02:00 03/08/17 13:02 03/08/17 02:00 03/08/17 02:00 03/08/17 13:02 Active Medications Albuterol/Ipratropium (Duoneb -) 1 amp NEB Q4HPO [facility] Last Admin: 03/08/17 10:15 Dose: 1 amp Aspirin (Ecotrin -) 81 mg PO DAILY [facility] Last Admin: 03/08/17 10:45 Dose: 81 mg Digoxin (Lanoxin -) 0.125 mg PO DAILY [facility] Last Admin: 03/08/17 10:45 Dose: 0.125 mg Diltiazem HCl (Cardizem Cd -) 240 mg PO DAILY [facility] Last Admin: 03/08/17 10:45 Dose: 240 mg Enoxaparin Sodium (Lovenox -) 90 mg SQ Q12H [facility] Last Admin: 03/08/17 06:13 Dose: 90 mg Furosemide (Lasix -) 40 mg PO DAILY [facility] Last Admin: 03/08/17 10:46 Dose: 40 mg Hydralazine HCl (Apresoline -) 10 mg PO BID [facility] Last Admin: 03/08/17 10:45 Dose: 10 mg Losartan Potassium (Cozaar -) 25 mg PO DAILY [facility] Last Admin: 03/08/17 10:45 Dose: 25 mg Ranitidine HCl (Zantac -) 150 mg PO DAILY [facility] Last Admin: 03/08/17 10:45 Dose: 150 mg Warfarin Sodium (Coumadin -) 7.5 mg PO DAILY@1800 [facility] Last Admin: 03/07/17 18:16 Dose: 7.5 mg Eyes: Yes: NAD HENT: Yes: WNL, Atraumatic, Normocephalic Neck: Yes: WNL, Supple, Trachea Midline Cardiovascular: Yes: Pulse Irregular, S1, S2 Respiratory: Yes: Few scattered rhonchi Gastrointestinal: Yes: WNL, Normal Bowel Sounds Genitourinary: Yes: WNL Musculoskeletal: Yes: WNL Extremities: Yes: WNL Edema: Yes Integumentary: Yes: WNL Neurological: Yes: WNL, Alert, Oriented ...Motor Strength: WNL Psychiatric: Yes: WNL Labs: Problem List - Problems (1) CHF exacerbation Code(s): I50.9 - HEART FAILURE, UNSPECIFIED Qualifiers: Congestive heart failure type: diastolic Qualified Code(s): I50.33 - Acute on chronic diastolic (congestive) heart failure (2) COPD (chronic obstructive pulmonary disease) with chronic bronchitis Code(s): J44.9 - CHRONIC OBSTRUCTIVE PULMONARY DISEASE, UNSPECIFIED (3) Pulmonary arterial hypertension Code(s): I27.2 - OTHER SECONDARY PULMONARY HYPERTENSION (4) Pulmonary embolism on long-term anticoagulation therapy Code(s): I26.99 - OTHER PULMONARY EMBOLISM WITHOUT ACUTE COR PULMONALE Z79.01 - RESIDENTIAL (CURRENT) USE OF ANTICOAGULANTS (5) Subtherapeutic anticoagulation Code(s): Z51.81 - ENCOUNTER FOR THERAPEUTIC DRUG LEVEL MONITORING Z79.01 - MENAGERIE SUPERINTENDENT (CURRENT) USE OF ANTICOAGULANTS (6) Atrial fibrillation Code(s): I48.91 - UNSPECIFIED ATRIAL FIBRILLATION Qualifiers: Atrial fibrillation type: permanent Qualified Code(s): I48.2 - Chronic atrial fibrillation (7) CHF (congestive heart failure) Code(s): I50.9 - HEART FAILURE, UNSPECIFIED Qualifiers: Congestive heart failure type: unspecified congestive heart failure type Congestive heart failure chronicity: acute Qualified Code(s): I50.9 - Heart failure, unspecified (8) Dyspnea Code(s): R06.00 - DYSPNEA, UNSPECIFIED (9) Hypertension Code(s): I10 - ESSENTIAL (PRIMARY) HYPERTENSION Qualifiers: Hypertension type: essential hypertension Qualified Code(s): I10 - Essential (primary) hypertension (10) Pulmonary hypertension Code(s): I27.2 - OTHER SECONDARY PULMONARY HYPERTENSION (11) Asthma Code(s): J45.909 - UNSPECIFIED ASTHMA, UNCOMPLICATED Lasix BD TX PRN No need for systemic steroids OOB to chair No Pulmonary contraindication for D/C Dr Gonzales
[2017-03-08 15:29] VITALS: BP 124/79; PULSE 65; TEMP 97.8
[2017-03-08] MEDS: WARFARIN NA 7.5 MG TABLET (FP) PO SCH (15:37)
== END 2017-03-08 18:18 | disposition home or self-care (01) | DRG 292 ==
LOC: JER 12:06 → JERBED 15:04 → J4W 15:45
PROVIDERS: ADMIT Family Medicine; ATTEND Family Medicine
DX: I11.0 Hypertensive heart disease with heart failure (principal); J45.901 Unspecified asthma with (acute) exacerbation; I50.33 Acute on chronic diastolic (congestive) heart failure; I27.2 Other secondary pulmonary hypertension; I34.0 Nonrheumatic mitral (valve) insufficiency; I48.2 Chronic atrial fibrillation; J44.9 Chronic obstructive pulmonary disease, unspecified; K21.9 Gastro-esophageal reflux disease without esophagitis; E05.90 Thyrotoxicosis, unspecified without thyrotoxic crisis or storm; M19.90 Unspecified osteoarthritis, unspecified site; Z86.711 Personal history of pulmonary embolism; Z86.718 Personal history of other venous thrombosis and embolism; Z79.01 Long term (current) use of anticoagulants
CPT/HCPCS: 36415; 71020-TC; 71250-TC; 80053; 80061; 80162; 82550; 83036; 83721; 83735; 83880; 84439; 84443; 84484; 85025; 85610; 93005; 93010; 94640; 99285-25

== ENCOUNTER → 2017-04-29 | Day surgery (SDC) | payer OTHER | END | disposition home or self-care (01) | LOC: FRADUS-SUR 12:59 | PROVIDERS: ATTEND Surgery | PROC: 0HBU3ZX Excision of Left Breast, Percutaneous Approach, Diagnostic (ICD-10-PCS; principal; 2017-04-29) | DX: N63 Unspecified lump in breast (principal); Z53.8 Procedure and treatment not carried out for other reasons | CPT/HCPCS: 19085; A4648; C1887 ==

== ENCOUNTER → 2017-05-20 | Day surgery (SDC) | payer OTHER ==
--- NOTE | 2017-05-21 16:14 | PATH ---
Surgical Pathology Report Patient Name: NILES PITT [facility]. Rec. #: [id number] /Age/Gender: 1940 (Age: 76) / F Account: [id number] Location: Taken: 05/20/2017 Received: 05/20/2017 Reported: 05/21/2017 Physicians: Jennifer Madrigal M.D. Specimen(s) Received BREAST CORE BIOPSY LEFT RETRO Clinical History Ultrasound findings: Suspicious R/O intraductal papilloma Final Diagnosis BREAST, LEFT, RETRO, CORE BIOPSY: INTRADUCTAL PAPILLOMA WITH ATYPIA. Electronically Signed Nelsy Mariscal M.D. Gross Description Received in formalin labeled "left breast bx retro," is a 1.1 x 0.9 x 0.2 cm aggregate of multiple gutierrez-yellow, irregular fragments of fibroadipose tissue. The formalin is filtered and the specimen is entirely submitted in one cassette. Time to formalin fixation: Approximately 2 minutes Total formalin fixation time: Approximately 9 hours 05/20/2017
== END | disposition home or self-care (01) ==
LOC: FRADUS-SUR 11:49
PROVIDERS: ATTEND Surgery
PROC: 0HBU3ZX Excision of Left Breast, Percutaneous Approach, Diagnostic (ICD-10-PCS; principal; 2017-05-20)
DX: D24.2 Benign neoplasm of left breast (principal); N63 Unspecified lump in breast
CPT/HCPCS: 19083; 88305-TC; G0206-TC

== ENCOUNTER 2017-06-23 13:56 | Inpatient (IN) | payer OTHER ==
--- NOTE | 2017-06-23 14:31 | PDOC ---
History of Present Illness - General History Source: Patient Exam Limitations: No Limitations - History of Present Illness Initial Comments: 06/23/17 16:25 The patient is a 76 year old female, with a significant past medical history of AFib(on coumadin), CHF, mitral insufficiency, hypertension, hypothyroidism, asthma, COPD, and osteoarthritis, who presents to the emergency department complaining of chest pain for approximately 2 days. The patient reports her chest pain began yesterday while at rest. She describes the pain as a dull pressure that is nonradiating in nature. Patient reports her chest pain resolved on its own, but returned today and has been constant. Patient reports a dry cough and wheezing, but denies any fever, chills, headache, or dizziness. She reports shortness of breath and orthopnea(uses 2-3 pillows at baseline), but denies any diaphoresis, palpitations, or lower extremity edema. She denies any nausea, vomiting, diarrhea, or constipation. Patient reports she is on lasix and her last dose was earlier today. Patient reports at baseline she has increased urinary output after taking lasix, but not today. She denies any dysuria, hematuria, frequency, or urgency. She denies any recent travel or sick contacts. Allergies: Ampicillin, codeine Past Surgical History: Tubal ligation Social History: Non smoker. No ETOH or recreational drug use. Family History: Father: heart disease, diabetes. Mother: heart disease PCP: Dr. Hernandez Psychiatric Lpn: Dr. Hahn <Guillermina Araujo - Last Filed: 06/23/17 18:48> <Ignacia Winkler - Last Filed: 06/26/17 14:39> - General Chief Complaint: Chest Pain Stated Complaint: CHEST PAIN Past History <Guillermina Araujo - Last Filed: 06/23/17 18:48> - Past Medical History Anemia: No Asthma: Yes (NO MEDS) Cancer: No Cardiac Disorders: Yes (AFIB) CVA: No COPD: No CHF: Yes Dementia: No Diabetes: No GI Disorders: No Disorders: No HTN: Yes Hypercholesterolemia: No Liver Disease: Yes (FATTY LIVER) Suicide Attempt (Hx): No Seizures: No Thyroid Disease: Yes (HYPO, NO MEDS) - Surgical History Abdominal Surgery: Yes (TUBAL LIGATION) Appendectomy: No Cardiac Surgery: No Cholecystectomy: No Lung Surgery: No Neurologic Surgery: No Orthopedic Surgery: No - Family Disease History Family Disease History: Diabetes: Father, Heart Disease: Father, Mother - Immunization History Immunization Up to Date: Yes - Psycho/Social/Smoking Cessation Hx Anxiety: No Suicidal Ideation: No Smoking Status: No Smoking History: Never smoked Have you smoked in the past 12 months: No Number of Cigarettes Smoked Daily: 0 Hx Alcohol Use: No Drug/Substance Use Hx: No Substance Use Type: None Hx Substance Use Treatment: No <Ignacia Winkler - Last Filed: 06/26/17 14:39> - Past Medical History Allergies/Adverse Reactions: Allergies Allergy/AdvReac Type Severity Reaction Status Date / Time ampicillin [Ampicillin] Allergy Severe Swelling Verified 06/23/17 14:17 codeine [Codeine] Allergy Swelling Verified 06/23/17 14:17 Home Medications: Ambulatory Orders Digoxin [Lanoxin -] 0.125 mg PO DAILY tablet 05/27/16 Diltiazem Cd [Cardizem Cd -] 240 mg PO HS 08/30/16 Furosemide [Lasix -] 40 mg PO DAILY 08/30/16 Hydralazine HCl [Apresoline -] 10 mg PO BID #60 tablet 11/18/16 Tamsulosin HCl [Flomax] 0.4 mg PO HS 05/29/17 Warfarin Na [Coumadin] 4 mg PO SUTUTHSA 05/29/17 Warfarin Na [Coumadin] 6 mg PO MOWEFR 05/29/17 Review of Systems - Review of Systems Able to Perform ROS?: Yes Comments:: 06/23/17 16:25 GENERAL/CONSTITUTIONAL: No fever or chills. No weakness. HEAD, EYES, EARS, NOSE AND THROAT: No change in vision. No ear pain or discharge. No sore throat. CARDIOVASCULAR: Yes: +chest pain, +chest tightness, +shortness of breath. No diaphoresis or palpitations. RESPIRATORY: Yes: +cough, +wheezing, +orthopnea. No hemoptysis. GASTROINTESTINAL: No nausea, vomiting, diarrhea or constipation. GENITOURINARY: Yes: +decreased urinary output. No dysuria, frequency, or change in urination. MUSCULOSKELETAL: No joint or muscle swelling or pain. No neck or back pain. SKIN: No rash NEUROLOGIC: No headache, vertigo, loss of consciousness, or change in strength/ sensation. ENDOCRINE: No increased thirst. No abnormal weight change. HEMATOLOGIC/LYMPHATIC: No anemia, easy bleeding, or history of blood clots. ALLERGIC/IMMUNOLOGIC: No hives or skin allergy. <Guillermina Araujo - Last Filed: 06/23/17 18:48> *Physical Exam - Vital Signs Last Vital Signs Temp Pulse Resp BP Pulse Ox 97.8 F 50 L 18 142/89 100 06/23/17 14:15 06/23/17 14:15 06/23/17 14:15 06/23/17 14:15 06/23/17 14:15 - Physical Exam Comments: 06/23/17 16:31 GENERAL: Mild conversational dyspnea. Awake, alert, and fully oriented, in no acute distress HEAD: No signs of trauma EYES: PERRLA, EOMI, sclera anicteric, conjunctiva clear ENT: Auricles normal inspection, hearing grossly normal, nares patent, oropharynx clear without exudates. Moist mucosa NECK: Normal ROM, supple, no lymphadenopathy, JVD, or masses LUNGS: Diminished breath sounds bilaterally. Soft rales, and mild expiratory wheezing. No crackles HEART: Regular rate and rhythm, normal S1 and S2, no murmurs, rubs or gallops ABDOMEN: Soft, nontender, normoactive bowel sounds. No guarding, no rebound. No masses EXTREMITIES: 1+ pitting edema bilateral lower extremities. Normal range of motion,. No clubbing or cyanosis. No cords, erythema, or tenderness NEUROLOGICAL: Cranial nerves II through XII grossly intact. Normal speech, normal gait SKIN: Warm, Dry, normal turgor, no rashes or lesions noted. <Guillermina Araujo - Last Filed: 06/23/17 18:48> - Vital Signs Last Vital Signs Temp Pulse Resp BP Pulse Ox 97.8 F 50 L 18 142/89 100 06/23/17 14:15 06/23/17 14:15 06/23/17 14:15 06/23/17 14:15 06/23/17 14:15 <Ignacia Winkler - Last Filed: 06/26/17 14:39> ED Treatment Course - LABORATORY CBC & Chemistry Diagram: 06/23/17 15:20 06/23/17 15:20 - ADDITIONAL ORDERS Additional order review: Laboratory Results 06/23/17 06/23/17 06/23/17 15:22 15:20 15:20 INR 2.04 H PTT (Actin FS) 41.7 H Sodium 142 Potassium 3.6 Chloride 106 Carbon Dioxide 27 Anion Gap 9 BUN 11 Creatinine 0.8 Creat Clearance w eGFR > 60 Random Glucose 83 D Calcium 8.6 Total Bilirubin 0.8 AST 13 L ALT 11 L D Alkaline Phosphatase 94 D Creatine Kinase 146 Troponin I 0.03 B-Natriuretic Peptide 532.11 H Total Protein 6.8 D Albumin 3.5 Digoxin 0.6832 L 06/23/17 15:20 RBC 4.58 MCV 90.7 MCHC 34.1 RDW 15.1 MPV 9.3 Neutrophils % 57.6 Lymphocytes % 29.0 Monocytes % 9.9 Eosinophils % 2.3 Basophils % 1.2 - RADIOLOGY Radiograph Interpretation: 06/23/17 17:18 EXAM: CXR INTERPRETED BY: Dr. Griffith REVIEWED BY: Dr. Winkler IMPRESSION: Increased cardiomegaly. Cephalization of vasculature which may reflect congestive changes. <Guillermina Araujo - Last Filed: 06/23/17 18:48> - LABORATORY CBC & Chemistry Diagram: 06/26/17 05:35 06/26/17 05:35 <Ignacia Winkler - Last Filed: 06/26/17 14:39> Medical Decision Making - Medical Decision Making 06/23/17 16:13 First call placed to Dr. Perez's office at 16:13. Dr. Zelaya is education counselor. Awaiting call back. Dr. Zelaya paged overhead several times by hospital electric shovel operator. Second call placed to Dr. Zelaya at 18:13. Dr. Salinas is education counselor. Awaiting call back. Case discussed with Dr. Salinas at 18:40. Pt will be admitted under Dr. Salinas. First call laced to Dr. Hahn at 18:43. awaiting call back. <Guillermina Araujo - Last Filed: 06/23/17 18:48> - Medical Decision Making 06/23/17 18:41 a/p: 76yo female with chest tightness and dyspnea, mild edema of LE -concern for CHF exacerbation vs pna -will check labs -cxr -will call cards and PMD -ekg 06/23/17 18:43 labs and imaging reviewed. Will add lasix therapy -discussed with the patient. -case discussed with Dr. Salinas who accepts pt to service -requests call be placed to cards - call placed to Dr. Hahn <Ignacia Winkler - Last Filed: 06/26/17 14:39> *DC/Admit/Observation/Transfer - Attestations Scribe Attestion: 06/23/17 16:14 Documentation prepared by Guillermina Araujo, acting as medical technologist prn for Ignacia Winkler DO. <Guillermina Araujo - Last Filed: 06/23/17 18:48> - Discharge Dispostion Admit: Yes - Attestations Physician Attestion: 06/23/17 18:41 I, Dr. Ignacia Winkler DO, attest that this document has been prepared under my direction and personally reviewed by me in its entirety. I further attest, that it accurately reflects all work, treatment, procedures and medical decision -making performed by me. <Ignacia Winkler - Last Filed: 06/26/17 14:39> Diagnosis at time of Disposition: Acute exacerbation of CHF (congestive heart failure) - Discharge Dispostion Condition at time of disposition: Fair - Referrals
[2017-06-23 15:27] LABS: BASOPHIL 1.2 % (0-2.0); EOSINOPHIL 2.3 % (0-4.5); MCH 30.9 pg (25.7-33.7); MCHC 34.1 g/dl (32.0-36.0); MEAN CELL VOLUME 90.7 fl (80-96); MEAN PLT VOLUME 9.3 fl (7.5-11.1); NEUTROPHILS 57.6 % (42.8-82.8); PLATELET COUNT 180 K/MM3 (134-434); RDW 15.1 % (11.6-15.6); WHITE BLOOD COUNT 7.7 K/mm3 (4.0-10.0)
[2017-06-23 15:51] LABS: ALBUMIN 3.5 g/dl (3.4-5.0); ANION GAP 9 (8-16); CALCIUM 8.6 mg/dL (8.5-10.1); CO2 27 mmol/L (21-32); CREATININE 0.8 mg/dL (0.55-1.02); GLUCOSE,RANDOM 83 mg/dL (74-106); SGOT/AST 13 U/L (15-37); SGPT/ALT 11 U/L (12-78)
[2017-06-23 15:56] LABS: ALK PHOS 94 U/L (45-117); BILIRUBIN,TOTAL 0.8 mg/dL (0.2-1.0); CPK 146 IU/L (26-192); TOT PROT 6.8 g/dl (6.4-8.2); TROPONIN I 0.03 ng/ml (0.00-0.05)
[2017-06-23 15:57] LABS: INR 2.04 (0.82-1.09); PROTHROMBIN TIME (PATIENT) 22.8 SEC (9.98-11.88)
[2017-06-23 15:59] LABS: ACTIVATED PTT 41.7 SECONDS (26.9-34.4)
[2017-06-23] MEDS ORDERED: FUROSEMIDE 40 MG/4 ML INJECTABLE VIAL IVPUSH ONE (16:09)
[2017-06-23] MEDS ORDERED: ASPIRIN 81 MG CHEWABLE TABLETS ONE (16:14)
[2017-06-23] MEDS ORDERED: FUROSEMIDE 40 MG/4 ML INJECTABLE VIAL ONE (16:14)
[2017-06-23] MEDS ORDERED: ASPIRIN COATED 81 MG TABLET.EC PO ONE (16:22)
[2017-06-23] MEDS ORDERED: ACETAMINOPHEN 325 MG TABLET (FP) PO PRN (20:39)
[2017-06-23] MEDS: hydrALAZINE HCL 10 MG TABLET PO SCH (21:42)
[2017-06-23 22:57] VITALS: BMI 34.8
[2017-06-24] MEDS: TAMSULOSIN HCL 0.4 MG CAP.ER.24H (FP) PO SCH (07:58)
[2017-06-24 08:41] LABS: MCH 30.4 pg (25.7-33.7); MCHC 33.5 g/dl (32.0-36.0); MEAN CELL VOLUME 90.9 fl (80-96); MEAN PLT VOLUME 9.6 fl (7.5-11.1); PLATELET COUNT 176 K/MM3 (134-434); RDW 14.9 % (11.6-15.6); WHITE BLOOD COUNT 7.6 K/mm3 (4.0-10.0)
--- NOTE | 2017-06-24 08:53 | CON.CARD ---
Cardiology Consult (text) - Consultation Consultation Note: Cardiology Consultation Ms. Magaña is known to me from office, her pertinent PMHx is as follows: 1. Permanent AF on Coumadin 2. Hypertensive heart disease with severe LA enlargement 3. Moderate MR 4. Mild to moderate PHTN 5. 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 Chronic asthma w/ frequent exacerbations. 7 Breast papiloma which was scheduled for bx end June HPI: Several days of increased BAL from baseline associated w/ chest "tightness." No increase in chronic cough, no fever. Denies edema or PND. Chest discomfort was at rest, not particularly associated w/ exertion. Central chest, non-radiating. Denies palps, LH or syncope. INR was therapeutic on admission. CXR showed possible increased PVC and she was give IV Lasix. ALL: Codeine and Ampicillin MEDS: Reviewed in EMR. FH: Not pertinent to this presentation SH: Denies active smoking or ETOH LABS: Laboratory Tests 06/23/17 06/23/17 06/23/17 15:20 15:20 15:20 WBC 7.7 Hgb 14.1 Plt Count 180 INR 2.04 H Sodium 142 Potassium 3.6 Creatinine 0.8 Creat Clearance w eGFR > 60 AST 13 L ALT 11 L D Troponin I 0.03 B-Natriuretic Peptide 532.11 H Digoxin 06/23/17 15:22 WBC Hgb Plt Count INR Sodium Potassium Creatinine Creat Clearance w eGFR AST ALT Troponin I B-Natriuretic Peptide Digoxin 0.6832 L ECG: AF w/ NSST T wave changes inferiorly TELE: Reviewed. Controlled AF with some pauses all < 3 seconds. CXR: Cardiomegaly, increased interstitial markings. Dobut. stress here '15: No ischemia IMP: Hypertensive heart dz with LA enlargement and permanent AF Chronic PHTN secondary to chronic asthma and valvular heart dz Moderate MR History of Pulmonary embolism Now presenting with atypical chest pain syndrome and perhaps mild volume overload. Symptoms do not sound c/w her typical asthma/COPD sx. REC: 1. Agree w/ IV Lasix for another 1-2 days 2. Repeat echo to assess MR and PHTN, r/o pericardial disease 3. Cycle cardiac enzymes 4. Maintain INR 2-3 (changed dosing to 6mg alternating w/ 4 mg as she takes at home) 5. Will probably need repeat ischemic evaluation when euvolemic. Thank you.
[2017-06-24 09:47] LABS: ALBUMIN 3.2 g/dl (3.4-5.0); ANION GAP 9 (8-16); CALCIUM 8.4 mg/dL (8.5-10.1); CO2 28 mmol/L (21-32); CREATININE 0.6 mg/dL (0.55-1.02); GLUCOSE,RANDOM 84 mg/dL (74-106); SGOT/AST 12 U/L (15-37); SGPT/ALT 11 U/L (12-78)
[2017-06-24 09:51] LABS: ALK PHOS 84 U/L (45-117); BILIRUBIN,TOTAL 0.9 mg/dL (0.2-1.0); CPK 128 IU/L (26-192); TOT PROT 6.1 g/dl (6.4-8.2); TROPONIN I 0.03 ng/ml (0.00-0.05)
[2017-06-24] MEDS: FUROSEMIDE 40 MG/4 ML INJECTABLE VIAL IVPB SCH (09:55)
[2017-06-24] MEDS: DIGOXIN 0.125 MG TABLET (FP) PO SCH (09:56)
[2017-06-24] MEDS: hydrALAZINE HCL 10 MG TABLET PO SCH ×2 (09:56→21:49)
--- NOTE | 2017-06-24 10:35 | HP ---
Admitting History and Physical - Primary Care Physician PCP: Escobar Perez - Admission Chief Complaint: Chest pain History of Present Illness: The patient is a 76 year old female, with a significant past medical history of AFib(on coumadin), CHF, mitral insufficiency, hypertension, hypothyroidism, asthma, COPD, and osteoarthritis, who presents to the emergency department complaining of chest pain for approximately 2 days. The patient reports her chest pain began yesterday while at rest. She describes the pain as a dull pressure that is nonradiating in nature. Patient reports her chest pain resolved on its own, but returned today and has been constant. Patient reports a dry cough and wheezing, but denies any fever, chills, headache, or dizziness. She reports shortness of breath and orthopnea(uses 2-3 pillows at baseline), but denies any diaphoresis, palpitations, or lower extremity edema. She denies any nausea, vomiting, diarrhea, or constipation. Patient reports she is on lasix and her last dose was earlier today. Patient reports at baseline she has increased urinary output after taking lasix, but not today. She denies any dysuria, hematuria, frequency, or urgency. She denies any recent travel or sick contacts. History Source: Patient Limitations to Obtaining History: No Limitations - Past Medical History Cardiovascular: Yes: AFIB (REFUSED ANTICOAGULATION IN PAST NOW ON COUMADIN), HTN , Mitral Insufficiency Pulmonary: Yes: Asthma, Bronchitis, COPD Gastrointestinal: Yes: GERD Musculoskeletal: Yes: Osteoarthritis Endocrine: Yes: Hyperthyroidism. No: Diabetes Mellitus - Past Surgical History Past Surgical History: Yes: Tubal Ligation - Smoking History Smoking history: Never smoked Have you smoked in the past 12 months: No Aproximately how many cigarettes per day: 0 - Alcohol/Substance Use Hx Alcohol Use: No - Social History ADL: Independent History of Recent Travel: No Home Medications - Allergies Allergies/Adverse Reactions: Allergies Allergy/AdvReac Type Severity Reaction Status Date / Time ampicillin [Ampicillin] Allergy Severe Swelling Verified 06/23/17 14:17 codeine [Codeine] Allergy Swelling Verified 06/23/17 14:17 - Home Medications Home Medications: Ambulatory Orders Digoxin [Lanoxin -] 0.125 mg PO DAILY tablet 05/27/16 Diltiazem Cd [Cardizem Cd -] 240 mg PO HS 08/30/16 Furosemide [Lasix -] 40 mg PO DAILY 08/30/16 Hydralazine HCl [Apresoline -] 10 mg PO BID #60 tablet 11/18/16 Tamsulosin HCl [Flomax] 0.4 mg PO HS 05/29/17 Warfarin Na [Coumadin] 4 mg PO SUTUTHSA 05/29/17 Warfarin Na [Coumadin] 6 mg PO MOWEFR 05/29/17 Family Disease History - Family Disease History Family Disease History: Diabetes: Father (HTN) Review of Systems - Review of Systems Constitutional: reports: No Symptoms Eyes: reports: No Symptoms HENT: reports: No Symptoms Neck: reports: No Symptoms Cardiovascular: reports: Shortness of Breath Respiratory: reports: Orthopnea, SOB, SOB on Exertion, Wheezing Gastrointestinal: reports: No Symptoms Genitourinary: reports: No Symptoms Breasts: reports: No Symptoms Reported Musculoskeletal: reports: No Symptoms Integumentary: reports: No Symptoms Neurological: reports: No Symptoms Endocrine: reports: No Symptoms Hematology/Lymphatic: reports: No Symptoms Psychiatric: reports: No Symptoms Physical Examination Vital Signs: Vital Signs Temperature 97.7 F 06/24/17 06:42 Pulse Rate 92 H 06/24/17 09:56 Respiratory Rate 18 06/24/17 06:42 Blood Pressure 152/83 06/24/17 06:42 O2 Sat by Pulse Oximetry (%) 99 06/23/17 20:40 Constitutional: Yes: Well Nourished, No Distress, Calm Cardiovascular: Yes: Regular Rate and Rhythm Respiratory: Yes: Regular Gastrointestinal: Yes: Normal Bowel Sounds Musculoskeletal: Yes: WNL Extremities: Yes: WNL Edema: No Peripheral Pulses WNL: Yes Neurological: Yes: Alert, Oriented Psychiatric: Yes: Alert, Oriented Labs: CBC, BMP 06/24/17 07:00 06/24/17 09:14 Imaging - Results Chest X-ray: Report Reviewed Problem List - Problems (1) Acute exacerbation of CHF (congestive heart failure) Code(s): I50.9 - HEART FAILURE, UNSPECIFIED (2) Hypokalemia Code(s): E87.6 - HYPOKALEMIA (3) Atrial fibrillation Code(s): I48.91 - UNSPECIFIED ATRIAL FIBRILLATION Qualifiers: Atrial fibrillation type: permanent Qualified Code(s): I48.2 - Chronic atrial fibrillation (4) COPD (chronic obstructive pulmonary disease) Code(s): J44.9 - CHRONIC OBSTRUCTIVE PULMONARY DISEASE, UNSPECIFIED Assessment/Plan -diuresis with IV furosemide -Pulmonary and cardiology consult -replenish potassium PO -OOB -labs in AM -Nephrology consult -Nebulizer tx -Tele monitoring -echo -IV steroids -AC for afib
--- NOTE | 2017-06-24 11:29 | PN ---
Progress Note (short form) - Note Progress Note: PULMONARY CONSULTATION DICTATED 06/24/17 IMP CHEST PAIN SYNDROME CHRONIC PERSISTENT ASTHMA AFIB PULMONARY HTN HTN H/O DVT PLAN CE O2 INHALED BRONCHODILATORS MEDROL X 24HRS CARDIAC W/U AC DR YE Problem List - Problems (1) Anemia Code(s): D64.9 - ANEMIA, UNSPECIFIED Qualifiers: Anemia type: other cause Other causes of anemia: acute posthemorrhagic Qualified Code(s): D62 - Acute posthemorrhagic anemia (2) Asthma Code(s): J45.909 - UNSPECIFIED ASTHMA, UNCOMPLICATED (3) Atrial fibrillation Code(s): I48.91 - UNSPECIFIED ATRIAL FIBRILLATION Qualifiers: Atrial fibrillation type: permanent Qualified Code(s): I48.2 - Chronic atrial fibrillation (4) COPD (chronic obstructive pulmonary disease) with chronic bronchitis Code(s): J44.9 - CHRONIC OBSTRUCTIVE PULMONARY DISEASE, UNSPECIFIED (5) Chest pain Code(s): R07.9 - CHEST PAIN, UNSPECIFIED Qualifiers: Chest pain type: chest pain due to myocardial ischemia Qualified Code(s ): I20.9 - Angina pectoris, unspecified (6) Chest pain at rest Code(s): R07.9 - CHEST PAIN, UNSPECIFIED (7) Dyspnea Code(s): R06.00 - DYSPNEA, UNSPECIFIED (8) Hypertension Code(s): I10 - ESSENTIAL (PRIMARY) HYPERTENSION Qualifiers: Hypertension type: essential hypertension Qualified Code(s): I10 - Essential (primary) hypertension (9) Hyperthyroidism Code(s): E05.90 - THYROTOXICOSIS, UNSP WITHOUT THYROTOXIC CRISIS OR STORM (10) Mitral regurgitation Code(s): I34.0 - NONRHEUMATIC MITRAL (VALVE) INSUFFICIENCY Qualifiers: Cardiac valve disease etiology: nonrheumatic Qualified Code(s): I34.0 - Nonrheumatic mitral (valve) insufficiency (11) Pulmonary arterial hypertension Code(s): I27.2 - OTHER SECONDARY PULMONARY HYPERTENSION (12) Pulmonary hypertension Code(s): I27.2 - OTHER SECONDARY PULMONARY HYPERTENSION (13) VHD (valvular heart disease) Code(s): I38 - ENDOCARDITIS, VALVE UNSPECIFIED
--- NOTE | 2017-06-24 12:02 | CONS ---
PULMONARY CONSULTATION DATE OF CONSULTATION: 06/24/2017 REFERRING PHYSICIAN: HISTORY OF PRESENT ILLNESS: The patient is a 76-year-old black female well known to me in previous hospitalizations as well as office followup with past medical history of atrial fibrillation maintained on Coumadin; congestive heart failure; mitral insufficiency; hypertension; pulmonary hypertension; hypothyroidism; asthma with multiple exacerbations; osteoarthritis; history of DVT a few years ago, provoked secondary to prolonged bedrest during a hospitalization, admitted to [facility] with complaint of 2-day history of chest pain. Patient states the chest pain started 2 days prior to admission. She described it as pressure like, nonradiating. She denied any nausea, vomiting, or diaphoresis. She states initially her chest pain was intermittent, then became more constant. At which time, she presented to the emergency room. She also complains of increasing shortness of breath and dyspnea on exertion, [id number] orthopnea at baseline. Denies any weight loss or night sweats. Denies any hemoptysis. She is a nonsmoker. There is no history of occupational exposure to chemicals or fumes. As stated before, she has a history of chronic, persistent asthma and maintained on albuterol but has been told to use inhaled steroids as well as other anti-inflammatory asthmatic medications with which she does not comply. There is no history of recent travel. 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 REVIEW OF SYSTEMS: Positive orthopnea, positive dyspnea, positive chest tightness. No nausea. No vomiting. No fevers. No chills. No hemoptysis. CURRENT MEDICATIONS: Include Flomax, Tylenol, Coumadin, Cardizem, Apresoline, and Lasix. PHYSICAL EXAMINATION: General: The patient is a well-developed, well-nourished female, awake, alert, in no acute distress. Vital Signs: She is currently afebrile. Blood pressure is 142/64. Respiratory rate is 18. O2 saturation is 99% on room air. HEENT: Normocephalic, atraumatic. Neck: Supple. Heart: Irregular, irregular. Normal S1, S2. Chest: Bilateral crackles and a few scattered bilateral wheezes. Abdomen: Soft. Bowel sounds are positive. Extremities: No cyanosis or edema. LABORATORY DATA: WBC is 7.6, hemoglobin 13.3, hematocrit 39.8, with a platelet count of 176,000. INR is 2.04. BUN is 9, creatinine 0.6. BNP is 532. Chest x-ray reveals cardiomegaly with mild congestion bilaterally. IMPRESSION: 1. Chest pain syndrome, etiology to be determined. We cannot exclude possible cardiac etiology, ischemic heart disease. 2. Chronic persistent asthma. 3. Pulmonary hypertension. 4. Hypertensive cardiovascular disease. 5. Hypertension. PLAN: Continue cardiac workup, inhaled bronchodilators p.r.n., nasal O2. Cardiac enzymes. Give a short course of Solu-Medrol. VANDANA YE M.D. KARINA/[id number]
--- NOTE | 2017-06-24 12:09 | EKG ---
Test Reason : Blood Pressure : / mmHG Vent. Rate : 054 BPM Atrial Rate : 416 BPM P-R Int : 000 ms QRS Dur : 078 ms QT Int : 426 ms P-R-T Axes : 000 -26 -23 degrees QTc Int : 403 ms ATRIAL FIBRILLATION WITH SLOW VENTRICULAR RESPONSE NONSPECIFIC ST ABNORMALITY ABNORMAL ECG WHEN COMPARED WITH ECG OF 06-MAR-2017 13:49, QT HAS SHORTENED CLINICAL CORRELATION IS RECOMMENDED Confirmed by VICKY PAYTON MD ([id number]) on 06/24/2017 12:09:18 PM Referred By: Confirmed By:VICKY PAYTON MD
[2017-06-24] MEDS: methylPREDNISolone NA SUCC 40 MG/1 ML VIAL IVPB SCH ×2 (12:24→17:03)
[2017-06-24 12:58] LABS: INR 1.94 (0.82-1.09); PROTHROMBIN TIME (PATIENT) 21.6 SEC (9.98-11.88)
--- NOTE | 2017-06-24 13:16 | CONSULT ---
Consult Consult Specialty:: Nephrology Reason for Consultation:: hypokalemia - History of Present Illness Chief Complaint: chest pain and shortness of breath History of Present Illness: Pt is a 76 year old female with pmhx of A-fib, CHF, mitral insufficiency, HTN, hypothyroidism, asthma, COPD, and arthritis who presents to the ER with chest discomfort and with shortness of breath. She says she had difficulty breathing while walking and while laying down flat. She denies lower extremity edema. She says she is on furosemide at home. She denies nsaid use. I was called to evaluate her for volume status and hypokalemia. She denies chest pain or shortness of breath at the moment. - History Source History Provided By: Patient - Past Medical History Cardio/Vascular: Yes: AFIB (REFUSED ANTICOAGULATION IN PAST NOW ON COUMADIN), HTN, Mitral Insufficiency Pulmonary: Yes: Asthma, Bronchitis, COPD Gastrointestinal: Yes: GERD Musculoskeletal: Yes: Osteoarthritis Endocrine: Yes: Hyperthyroidism. No: Diabetes Mellitus Additional Medical History: LEFT POPLITEAL DVT - Past Surgical History Past Surgical History: Yes: Tubal Ligation - Alcohol/Substance Use Hx Alcohol Use: No - Smoking History Smoking history: Never smoked Have you smoked in the past 12 months: No Aproximately how many cigarettes per day: 0 - Social History ADL: Independent History of Recent Travel: No Home Medications - Allergies Allergies/Adverse Reactions: Allergies Allergy/AdvReac Type Severity Reaction Status Date / Time ampicillin [Ampicillin] Allergy Severe Swelling Verified 06/23/17 14:17 codeine [Codeine] Allergy Swelling Verified 06/23/17 14:17 - Home Medications Home Medications: Ambulatory Orders Digoxin [Lanoxin -] 0.125 mg PO DAILY tablet 05/27/16 Diltiazem Cd [Cardizem Cd -] 240 mg PO HS 08/30/16 Furosemide [Lasix -] 40 mg PO DAILY 08/30/16 Hydralazine HCl [Apresoline -] 10 mg PO BID #60 tablet 11/18/16 Tamsulosin HCl [Flomax] 0.4 mg PO HS 05/29/17 Warfarin Na [Coumadin] 4 mg PO SUTUTHSA 05/29/17 Warfarin Na [Coumadin] 6 mg PO MOWEFR 05/29/17 Family Disease History - Family Disease History Family Disease History: Diabetes: Father (HTN) Review of Systems - Review of Systems Constitutional: reports: Malaise Eyes: reports: No Symptoms HENT: reports: No Symptoms Neck: reports: No Symptoms Cardiovascular: reports: Chest Pain, Shortness of Breath. denies: Edema, Palpitations Respiratory: reports: SOB, SOB on Exertion Gastrointestinal: denies: Abdominal Pain Genitourinary: reports: No Symptoms Musculoskeletal: reports: No Symptoms Integumentary: reports: No Symptoms Neurological: reports: No Symptoms Endocrine: reports: No Symptoms Hematology/Lymphatic: reports: No Symptoms Psychiatric: reports: No Symptoms Physical Exam Vital Signs: Vital Signs Temperature 98.0 F 06/24/17 11:14 Pulse Rate 62 06/24/17 11:14 Respiratory Rate 18 06/24/17 11:14 Blood Pressure 142/64 06/24/17 11:14 O2 Sat by Pulse Oximetry (%) 99 06/24/17 09:00 Constitutional: Yes: Calm Eyes: Yes: Conjunctiva Clear HENT: Yes: Atraumatic Neck: Yes: Supple Cardiovascular: Yes: S1, S2 Respiratory: Yes: CTA Bilaterally Gastrointestinal: Yes: Normal Bowel Sounds, Soft, Abdomen, Obese Renal/: Yes: WNL Musculoskeletal: Yes: WNL Edema: No Neurological: Yes: Oriented Psychiatric: Yes: Oriented Labs: CBC, BMP 06/24/17 07:00 06/24/17 09:14 Laboratory Tests 06/23/17 06/23/17 06/24/17 15:20 15:22 07:00 Sodium 142 143 Potassium 3.6 3.3 L Chloride 106 Carbon Dioxide 28 B-Natriuretic Peptide 532.11 H Digoxin 0.6832 L Imaging - Results Chest X-ray: Report Reviewed Problem List - Problems (1) Atrial fibrillation Code(s): I48.91 - UNSPECIFIED ATRIAL FIBRILLATION Qualifiers: Atrial fibrillation type: permanent Qualified Code(s): I48.2 - Chronic atrial fibrillation (2) CHF (congestive heart failure) Code(s): I50.9 - HEART FAILURE, UNSPECIFIED Qualifiers: Congestive heart failure type: unspecified congestive heart failure type Congestive heart failure chronicity: acute Qualified Code(s): I50.9 - Heart failure, unspecified (3) COPD (chronic obstructive pulmonary disease) Code(s): J44.9 - CHRONIC OBSTRUCTIVE PULMONARY DISEASE, UNSPECIFIED (4) Hypokalemia Code(s): E87.6 - HYPOKALEMIA Assessment/Plan Current Medications Generic Name Dose Route Start Last Admin Trade Name Kathy PRN Reason Stop Dose Admin Acetaminophen 650 mg 06/23/17 20:39 Tylenol - PO Q6H PRN FEVER OR PAIN Albuterol/Ipratropium 1 amp 06/24/17 11:33 Duoneb - NEB Q4H PRN SHORTNESS OF BREATH Digoxin 0.125 mg 06/24/17 10:00 06/24/17 09:56 Lanoxin - PO 0.125 mg DAILY BLESSING Administration Diltiazem HCl 240 mg 06/24/17 10:00 06/24/17 09:56 Cardizem Cd - PO 240 mg DAILY BLESSING Administration Furosemide 40 mg 06/24/17 10:00 06/24/17 09:55 Lasix Injection - IVPB 40 mg DAILY BLESSING Administration Hydralazine HCl 10 mg 06/23/17 22:00 06/24/17 09:56 Apresoline - PO 10 mg BID BLESSING Administration Methylprednisolone Sodium Succinate 40 mg 06/24/17 11:45 06/24/17 12:24 Solu-Medrol - IVPB 40 mg Q8H-IV BLESSING Administration Tamsulosin HCl 0.4 mg 06/24/17 08:30 06/24/17 07:58 Flomax - PO 0.4 mg DAILY@0830 [facility] Administration Warfarin Sodium 4 mg 06/24/17 18:00 Coumadin - PO SuTuThSa@1800 BLESSING Warfarin Sodium 6 mg 06/25/17 18:00 Coumadin - PO MoWeFr@1800 [facility] Impression 1. Hypokalemia 2. a-fib 3. HTN 4. COPD 5. arthritis 6. CHF 7. asthma Plan - replace potassium - cont lasix, can likely switch to PO in am - repeat cxr in am - check mag level - check ua - will follow - hypokalemic likely from diuretics Dr Hernandez
[2017-06-24] MEDS ORDERED: POTASSIUM CHLORIDE TABS 20 MEQ TABLET.ER (FP) PO ONE ×2 (13:23→17:15)
[2017-06-24] MEDS ORDERED: POTASSIUM CHLORIDE TABS 20 MEQ TABLET.ER (FP) PO SCH (13:30)
[2017-06-24] MEDS ORDERED: WARFARIN NA 2 MG TABLET (UD) PO SCH (18:00)
[2017-06-24] MEDS ORDERED: WARFARIN NA 10 MG TABLET (FP) PO SCH (18:00)
[2017-06-24] MEDS: ALBUTEROL SO4 2.5/IPRATROPIUM 0.5 INH SOL 3 ML VIAL.NEB. NEB PRN (21:50)
[2017-06-25] MEDS: methylPREDNISolone NA SUCC 40 MG/1 ML VIAL IVPB SCH ×3 (01:38→21:46)
[2017-06-25] MEDS: ALBUTEROL SO4 2.5/IPRATROPIUM 0.5 INH SOL 3 ML VIAL.NEB. NEB PRN (06:55)
[2017-06-25 07:57] LABS: ALBUMIN 3.5 g/dl (3.4-5.0); ALK PHOS 93 U/L (45-117); ANION GAP 12 (8-16); BILIRUBIN,TOTAL 0.6 mg/dL (0.2-1.0); CO2 24 mmol/L (21-32); CREATININE 0.7 mg/dL (0.55-1.02); GLUCOSE,RANDOM 155 mg/dL (74-106); MAGNESIUM 2.2 mg/dL (1.8-2.4); SGOT/AST 13 U/L (15-37); SGPT/ALT 10 U/L (12-78); TOT PROT 6.6 g/dl (6.4-8.2)
--- NOTE | 2017-06-25 08:32 | PN ---
Progress Note, Physician Chief Complaint: feels "little better" Morning BP is elevated. TELE: reviewed. AF, controlled. no sig pauses. History of Present Illness: Echo: Overall normal LV function, MR moderate to severe, possibly severe. - Current Medication List Current Medications: Active Medications Acetaminophen (Tylenol -) 650 mg PO Q6H PRN PRN Reason: FEVER OR PAIN Albuterol/Ipratropium (Duoneb -) 1 amp NEB Q4H PRN PRN Reason: SHORTNESS OF BREATH Last Admin: 06/25/17 06:55 Dose: 1 amp Digoxin (Lanoxin -) 0.125 mg PO DAILY [facility] Last Admin: 06/24/17 09:56 Dose: 0.125 mg Diltiazem HCl (Cardizem Cd -) 240 mg PO DAILY [facility] Last Admin: 06/24/17 09:56 Dose: 240 mg Furosemide (Lasix Injection -) 40 mg IVPB DAILY [facility] Last Admin: 06/24/17 09:55 Dose: 40 mg Hydralazine HCl (Apresoline -) 10 mg PO BID [facility] Last Admin: 06/24/17 21:49 Dose: 10 mg Methylprednisolone Sodium Succinate (Solu-Medrol -) 40 mg IVPB Q8H-IV [facility] Last Admin: 06/25/17 01:38 Dose: 40 mg Potassium Chloride (K-Dur -) 20 meq PO DAILY [facility] Tamsulosin HCl (Flomax -) 0.4 mg PO DAILY@0830 [facility] Last Admin: 06/24/17 07:58 Dose: 0.4 mg Warfarin Sodium (Coumadin -) 4 mg PO SuTuThSa@1800 [facility] Last Admin: 06/24/17 17:03 Dose: 4 mg Warfarin Sodium (Coumadin -) 6 mg PO MoWeFr@1800 [facility] - Objective Vital Signs: Vital Signs Temperature 97.7 F 06/25/17 06:44 Pulse Rate 74 06/25/17 06:44 Respiratory Rate 20 06/25/17 06:44 Blood Pressure 160/100 06/25/17 06:44 O2 Sat by Pulse Oximetry (%) 97 06/24/17 20:49 Constitutional: Yes: No Distress Cardiovascular: Yes: Pulse Irregular Respiratory: Yes: Other (rales left base, decrease breath sounds right) Gastrointestinal: Yes: Soft Edema: Yes Edema: LLE: 1+, RLE: 1+ Neurological: Yes: Alert, Oriented Labs: CBC, BMP 06/24/17 07:00 06/25/17 05:35 INR, PTT INR 1.94 (0.82-1.09) H 06/24/17 07:00 Laboratory Tests 06/25/17 05:35 Sodium 140 Potassium 3.9 Creatinine 0.7 - ....Imaging EKG: Image Reviewed Assessment/Plan IMP: Hypertensive heart dz with LA enlargement and permanent AF Chronic PHTN secondary to chronic asthma and valvular heart dz Moderate MR History of Pulmonary embolism Now presenting with atypical chest pain syndrome and perhaps mild volume overload. Symptoms do not sound c/w her typical asthma/COPD sx. REC: 1. Still slightly volume overloaded w/ rales. Needs to continue IV Lasix for 1- 2 more days. 2. INR now, adjust coumadin for INR 2-3. 3. Will add Losartan 50mg daily for BP control and afterload reduction ( moderate to severe MR, possibly severe). 4. When euvolemic, will need definitive coronary assessment and further eval of MR severity. Plan for transfer to tertiary care center for cath + likely [facility], probably evening or Friday morning depending on clinical course and volume status.
--- NOTE | 2017-06-25 08:46 | PN ---
Progress Note, Physician History of Present Illness: feels better no cp no sob in bed - Current Medication List Current Medications: Active Medications Acetaminophen (Tylenol -) 650 mg PO Q6H PRN PRN Reason: FEVER OR PAIN Albuterol/Ipratropium (Duoneb -) 1 amp NEB Q4H PRN PRN Reason: SHORTNESS OF BREATH Last Admin: 06/25/17 06:55 Dose: 1 amp Digoxin (Lanoxin -) 0.125 mg PO DAILY [facility] Last Admin: 06/24/17 09:56 Dose: 0.125 mg Diltiazem HCl (Cardizem Cd -) 240 mg PO DAILY [facility] Last Admin: 06/24/17 09:56 Dose: 240 mg Furosemide (Lasix Injection -) 40 mg IVPB DAILY [facility] Last Admin: 06/24/17 09:55 Dose: 40 mg Hydralazine HCl (Apresoline -) 10 mg PO BID [facility] Last Admin: 06/24/17 21:49 Dose: 10 mg Losartan Potassium (Cozaar -) 50 mg PO DAILY [facility] Methylprednisolone Sodium Succinate (Solu-Medrol -) 40 mg IVPB Q8H-IV [facility] Last Admin: 06/25/17 01:38 Dose: 40 mg Potassium Chloride (K-Dur -) 20 meq PO DAILY [facility] Tamsulosin HCl (Flomax -) 0.4 mg PO DAILY@0830 [facility] Last Admin: 06/24/17 07:58 Dose: 0.4 mg Warfarin Sodium (Coumadin -) 4 mg PO SuTuThSa@1800 [facility] Last Admin: 06/24/17 17:03 Dose: 4 mg Warfarin Sodium (Coumadin -) 6 mg PO MoWeFr@1800 [facility] - Objective Vital Signs: Vital Signs Temperature 97.7 F 06/25/17 06:44 Pulse Rate 74 06/25/17 06:44 Respiratory Rate 20 06/25/17 06:44 Blood Pressure 160/100 06/25/17 06:44 O2 Sat by Pulse Oximetry (%) 97 06/24/17 20:49 Cardiovascular: Yes: Regular Rate and Rhythm Respiratory: Yes: Regular, Rales (at the bases) Gastrointestinal: Yes: Normal Bowel Sounds, Soft Edema: No Labs: CBC, BMP 06/24/17 07:00 06/25/17 05:35 INR, PTT INR 1.94 (0.82-1.09) H 06/24/17 07:00 Problem List - Problems (1) Acute exacerbation of CHF (congestive heart failure) Assessment/Plan: IV LASIX MONITOR LYTES Code(s): I50.9 - HEART FAILURE, UNSPECIFIED Qualifiers: Congestive heart failure type: diastolic Qualified Code(s): I50.33 - Acute on chronic diastolic (congestive) heart failure (2) Hypokalemia Assessment/Plan: REPLACED MONITOR Code(s): E87.6 - HYPOKALEMIA (3) Acute asthma exacerbation Assessment/Plan: TAPER STEROID Code(s): J45.901 - UNSPECIFIED ASTHMA WITH (ACUTE) EXACERBATION Qualifiers: (4) Atrial fibrillation Assessment/Plan: ON COUMADIN INR, PTT INR 1.94 (0.82-1.09) H 06/24/17 07:00 Code(s): I48.91 - UNSPECIFIED ATRIAL FIBRILLATION Qualifiers: Atrial fibrillation type: permanent Qualified Code(s): I48.2 - Chronic atrial fibrillation (5) Chest pain Assessment/Plan: Troponin, BNP 06/24/17 06/24/17 07:00 09:14 Troponin I 0.03 Cancelled NOTED BY CARDIOLOGY=FOR CATH Code(s): R07.9 - CHEST PAIN, UNSPECIFIED Qualifiers: Chest pain type: chest pain due to myocardial ischemia
[2017-06-25] MEDS: FUROSEMIDE 40 MG/4 ML INJECTABLE VIAL IVPB SCH (09:29)
[2017-06-25] MEDS: hydrALAZINE HCL 10 MG TABLET PO SCH ×2 (09:30→21:46)
[2017-06-25] MEDS: TAMSULOSIN HCL 0.4 MG CAP.ER.24H (FP) PO SCH (09:31)
[2017-06-25] MEDS: DIGOXIN 0.125 MG TABLET (FP) PO SCH (09:31)
[2017-06-25] MEDS: POTASSIUM CHLORIDE TABS 10 MEQ TABLET.ER (FP) PO SCH (09:31)
[2017-06-25 09:35] LABS: INR 1.79 (0.82-1.09); PROTHROMBIN TIME (PATIENT) 19.9 SEC (9.98-11.88)
[2017-06-25] MEDS ORDERED: LOSARTAN POTASSIUM 50 MG TABLET (FP) PO SCH (10:00)
[2017-06-25] MEDS ORDERED: HEPARIN NA (PORCINE) 5,000 UNITS/ML 1ML VIAL IVPUSH PRN ×2 (10:50)
--- NOTE | 2017-06-25 11:07 | PN ---
Progress Note, Physician History of Present Illness: PULMONARY ALERT,COMFORTABLE,- CHEST TIGHTNESS,LESS DYSPNEIC - Current Medication List Current Medications: Active Medications Acetaminophen (Tylenol -) 650 mg PO Q6H PRN PRN Reason: FEVER OR PAIN Last Admin: 06/25/17 09:46 Dose: 650 mg Albuterol/Ipratropium (Duoneb -) 1 amp NEB Q4H PRN PRN Reason: SHORTNESS OF BREATH Last Admin: 06/25/17 06:55 Dose: 1 amp Digoxin (Lanoxin -) 0.125 mg PO DAILY [facility] Last Admin: 06/25/17 09:31 Dose: 0.125 mg Diltiazem HCl (Cardizem Cd -) 240 mg PO DAILY [facility] Last Admin: 06/25/17 09:30 Dose: 240 mg Furosemide (Lasix Injection -) 40 mg IVPB DAILY [facility] Last Admin: 06/25/17 09:29 Dose: 40 mg Heparin Sodium (Porcine) (Heparin -) 5,000 unit IVPUSH PRN PRN Heparin Sodium (Porcine) (Heparin -) 1,000 unit IVPUSH PRN PRN Hydralazine HCl (Apresoline -) 10 mg PO BID [facility] Last Admin: 06/25/17 09:30 Dose: 10 mg Heparin Sodium (Porcine) 25, (000 unit/ Sodium Chloride) 500 mls @ 20 mls/hr IV TITR BLESSING; 1,000 UNIT/HR PRN Reason: Protocol Losartan Potassium (Cozaar -) 50 mg PO DAILY [facility] Last Admin: 06/25/17 09:31 Dose: 50 mg Methylprednisolone Sodium Succinate (Solu-Medrol -) 20 mg IVPB BID [facility] Last Admin: 06/25/17 09:29 Dose: 20 mg Potassium Chloride (K-Dur -) 20 meq PO DAILY [facility] Last Admin: 06/25/17 09:31 Dose: 20 meq Tamsulosin HCl (Flomax -) 0.4 mg PO DAILY@0830 [facility] Last Admin: 06/25/17 09:31 Dose: 0.4 mg - Objective Vital Signs: Vital Signs Temperature 97.7 F 06/25/17 06:44 Pulse Rate 84 06/25/17 09:31 Respiratory Rate 20 06/25/17 06:44 Blood Pressure 160/100 06/25/17 06:44 O2 Sat by Pulse Oximetry (%) 97 06/24/17 20:49 Constitutional: Yes: Well Nourished, Calm Eyes: Yes: WNL HENT: Yes: WNL Neck: Yes: WNL Cardiovascular: Yes: Pulse Irregular, S1, S2 Respiratory: Yes: Rales (FEW BASILAR CRACKLES) Gastrointestinal: Yes: Normal Bowel Sounds, Soft Extremities: Yes: WNL Edema: Yes Labs: CBC, BMP 06/25/17 05:35 INR, PTT INR 1.79 (0.82-1.09) H 06/25/17 09:10 - ....Imaging Chest X-ray: Report Reviewed, Image Reviewed Problem List - Problems (1) Anemia Code(s): D64.9 - ANEMIA, UNSPECIFIED Qualifiers: Anemia type: other cause Other causes of anemia: acute posthemorrhagic Qualified Code(s): D62 - Acute posthemorrhagic anemia (2) Asthma Code(s): J45.909 - UNSPECIFIED ASTHMA, UNCOMPLICATED (3) Atrial fibrillation Code(s): I48.91 - UNSPECIFIED ATRIAL FIBRILLATION Qualifiers: Atrial fibrillation type: permanent Qualified Code(s): I48.2 - Chronic atrial fibrillation (4) COPD (chronic obstructive pulmonary disease) with chronic bronchitis Code(s): J44.9 - CHRONIC OBSTRUCTIVE PULMONARY DISEASE, UNSPECIFIED (5) Chest pain Code(s): R07.9 - CHEST PAIN, UNSPECIFIED Qualifiers: Chest pain type: chest pain due to myocardial ischemia Qualified Code(s ): I20.9 - Angina pectoris, unspecified (6) Chest pain at rest Code(s): R07.9 - CHEST PAIN, UNSPECIFIED (7) Dyspnea Code(s): R06.00 - DYSPNEA, UNSPECIFIED (8) Hypertension Code(s): I10 - ESSENTIAL (PRIMARY) HYPERTENSION Qualifiers: Hypertension type: essential hypertension Qualified Code(s): I10 - Essential (primary) hypertension (9) Hyperthyroidism Code(s): E05.90 - THYROTOXICOSIS, UNSP WITHOUT THYROTOXIC CRISIS OR STORM (10) Mitral regurgitation Code(s): I34.0 - NONRHEUMATIC MITRAL (VALVE) INSUFFICIENCY Qualifiers: Cardiac valve disease etiology: nonrheumatic Qualified Code(s): I34.0 - Nonrheumatic mitral (valve) insufficiency (11) Pulmonary arterial hypertension Code(s): I27.2 - OTHER SECONDARY PULMONARY HYPERTENSION (12) Pulmonary hypertension Code(s): I27.2 - OTHER SECONDARY PULMONARY HYPERTENSION (13) VHD (valvular heart disease) Code(s): I38 - ENDOCARDITIS, VALVE UNSPECIFIED Assessment/Plan MP CHEST PAIN SYNDROME CHRONIC PERSISTENT ASTHMA AFIB PULMONARY HTN HTN H/O DVT PLAN O2 INHALED BRONCHODILATORS MEDROL LASIX AC DR YE Problem List - Problems (1) Anemia Code(s): D64.9 - ANEMIA, UNSPECIFIED Qualifiers: Anemia type: other cause Other causes of anemia: acute posthemorrhagic Qualified Code(s): D62 - Acute posthemorrhagic anemia (2) Asthma Code(s): J45.909 - UNSPECIFIED ASTHMA, UNCOMPLICATED (3) Atrial fibrillation Code(s): I48.91 - UNSPECIFIED ATRIAL FIBRILLATION Qualifiers: Atrial fibrillation type: permanent Qualified Code(s): I48.2 - Chronic atrial fibrillation (4) COPD (chronic obstructive pulmonary disease) with chronic bronchitis Code(s): J44.9 - CHRONIC OBSTRUCTIVE PULMONARY DISEASE, UNSPECIFIED (5) Chest pain Code(s): R07.9 - CHEST PAIN, UNSPECIFIED Qualifiers: Chest pain type: chest pain due to myocardial ischemia Qualified Code(s ): I20.9 - Angina pectoris, unspecified (6) Chest pain at rest Code(s): R07.9 - CHEST PAIN, UNSPECIFIED (7) Dyspnea Code(s): R06.00 - DYSPNEA, UNSPECIFIED (8) Hypertension Code(s): I10 - ESSENTIAL (PRIMARY) HYPERTENSION Qualifiers: Hypertension type: essential hypertension Qualified Code(s): I10 - Essential (primary) hypertension (9) Hyperthyroidism Code(s): E05.90 - THYROTOXICOSIS, UNSP WITHOUT THYROTOXIC CRISIS OR STORM (10) Mitral regurgitation Code(s): I34.0 - NONRHEUMATIC MITRAL (VALVE) INSUFFICIENCY Qualifiers: Cardiac valve disease etiology: nonrheumatic Qualified Code(s): I34.0 - Nonrheumatic mitral (valve) insufficiency (11) Pulmonary arterial hypertension Code(s): I27.2 - OTHER SECONDARY PULMONARY HYPERTENSION (12) Pulmonary hypertension Code(s): I27.2 - OTHER SECONDARY PULMONARY HYPERTENSION (13) VHD (valvular heart disease) Code(s): I38 - ENDOCARDITIS, VALVE UNSPECIFIED
[2017-06-25] MEDS: HEPARIN - 25,000 UNIT in SODIUM CHLORIDE 495 ML IV SCH ×2 (11:10→19:04)
--- NOTE | 2017-06-25 15:25 | PN ---
Progress Note, Physician History of Present Illness: Pt seen and examined at bedside. She is awake and alert. She feels well. She denies shortness of breath. - Current Medication List Current Medications: Active Medications Acetaminophen (Tylenol -) 650 mg PO Q6H PRN PRN Reason: FEVER OR PAIN Last Admin: 06/25/17 09:46 Dose: 650 mg Albuterol/Ipratropium (Duoneb -) 1 amp NEB Q4H PRN PRN Reason: SHORTNESS OF BREATH Last Admin: 06/25/17 06:55 Dose: 1 amp Digoxin (Lanoxin -) 0.125 mg PO DAILY [facility] Last Admin: 06/25/17 09:31 Dose: 0.125 mg Diltiazem HCl (Cardizem Cd -) 240 mg PO DAILY [facility] Last Admin: 06/25/17 09:30 Dose: 240 mg Furosemide (Lasix Injection -) 40 mg IVPB DAILY [facility] Last Admin: 06/25/17 09:29 Dose: 40 mg Heparin Sodium (Porcine) (Heparin -) 5,000 unit IVPUSH PRN PRN Heparin Sodium (Porcine) (Heparin -) 1,000 unit IVPUSH PRN PRN Hydralazine HCl (Apresoline -) 10 mg PO BID [facility] Last Admin: 06/25/17 09:30 Dose: 10 mg Heparin Sodium (Porcine) 25, (000 unit/ Sodium Chloride) 500 mls @ 20 mls/hr IV TITR BLESSING; 1,000 UNIT/HR PRN Reason: Protocol Last Admin: 06/25/17 11:10 Dose: 20 mls/hr Losartan Potassium (Cozaar -) 50 mg PO DAILY [facility] Last Admin: 06/25/17 09:31 Dose: 50 mg Methylprednisolone Sodium Succinate (Solu-Medrol -) 20 mg IVPB BID [facility] Last Admin: 06/25/17 09:29 Dose: 20 mg Potassium Chloride (K-Dur -) 20 meq PO DAILY [facility] Last Admin: 06/25/17 09:31 Dose: 20 meq Tamsulosin HCl (Flomax -) 0.4 mg PO DAILY@0830 [facility] Last Admin: 06/25/17 09:31 Dose: 0.4 mg - Objective Vital Signs: Vital Signs Temperature 97.7 F 06/25/17 14:00 Pulse Rate 86 06/25/17 14:00 Respiratory Rate 22 06/25/17 10:00 Blood Pressure 150/85 06/25/17 14:00 O2 Sat by Pulse Oximetry (%) 96 06/25/17 09:00 Constitutional: Yes: Calm Eyes: Yes: Conjunctiva Clear HENT: Yes: Atraumatic Neck: Yes: Supple Cardiovascular: Yes: S1, S2 Respiratory: Yes: CTA Bilaterally Gastrointestinal: Yes: Normal Bowel Sounds Genitourinary: Yes: WNL Musculoskeletal: Yes: WNL Edema: No Neurological: Yes: Oriented Psychiatric: Yes: Oriented Labs: CBC, BMP 06/24/17 07:00 06/25/17 05:35 INR, PTT INR 1.79 (0.82-1.09) H 06/25/17 09:10 Problem List - Problems (1) Atrial fibrillation Code(s): I48.91 - UNSPECIFIED ATRIAL FIBRILLATION Qualifiers: Atrial fibrillation type: permanent Qualified Code(s): I48.2 - Chronic atrial fibrillation (2) CHF (congestive heart failure) Code(s): I50.9 - HEART FAILURE, UNSPECIFIED Qualifiers: Congestive heart failure type: unspecified congestive heart failure type Congestive heart failure chronicity: acute Qualified Code(s): I50.9 - Heart failure, unspecified (3) COPD (chronic obstructive pulmonary disease) Code(s): J44.9 - CHRONIC OBSTRUCTIVE PULMONARY DISEASE, UNSPECIFIED (4) Hypokalemia Code(s): E87.6 - HYPOKALEMIA Assessment/Plan Current Medications Generic Name Dose Route Start Last Admin Trade Name Freq PRN Reason Stop Dose Admin Acetaminophen 650 mg 06/23/17 20:39 06/25/17 09:46 Tylenol - PO 650 mg Q6H PRN Administration FEVER OR PAIN Albuterol/Ipratropium 1 amp 06/24/17 11:33 06/25/17 06:55 Duoneb - NEB 1 amp Q4H PRN Administration SHORTNESS OF BREATH Digoxin 0.125 mg 06/24/17 10:00 06/25/17 09:31 Lanoxin - PO 0.125 mg DAILY [facility] Administration Diltiazem HCl 240 mg 06/24/17 10:00 06/25/17 09:30 Cardizem Cd - PO 240 mg DAILY [facility] Administration Furosemide 40 mg 06/24/17 10:00 06/25/17 09:29 Lasix Injection - IVPB 40 mg DAILY [facility] Administration Heparin Sodium (Porcine) 5,000 unit 06/25/17 10:50 Heparin - IVPUSH PRN PRN Heparin Sodium (Porcine) 1,000 unit 06/25/17 10:50 Heparin - IVPUSH PRN PRN Hydralazine HCl 10 mg 06/23/17 22:00 06/25/17 09:30 Apresoline - PO 10 mg BID [facility] Administration Heparin Sodium (Porcine) 25, 500 mls @ 20 mls/hr 06/25/17 11:00 06/25/17 11:10 000 unit/ Sodium Chloride IV 20 mls/hr TITR BLESSING Administration Protocol 1,000 UNIT/HR Losartan Potassium 50 mg 06/25/17 10:00 06/25/17 09:31 Cozaar - PO 50 mg DAILY [facility] Administration Methylprednisolone Sodium Succinate 20 mg 06/25/17 10:00 06/25/17 09:29 Solu-Medrol - IVPB 20 mg BID [facility] Administration Potassium Chloride 20 meq 06/25/17 10:00 06/25/17 09:31 K-Dur - PO 20 meq DAILY [facility] Administration Tamsulosin HCl 0.4 mg 06/24/17 08:30 06/25/17 09:31 Flomax - PO 0.4 mg DAILY@0830 [facility] Administration Laboratory Tests 06/25/17 05:35 Magnesium 2.2 Impression 1. Hypokalemia 2. a-fib 3. HTN 4. COPD 5. arthritis 6. CHF 7. asthma Plan - potassium improved - check ua - renal function is stable - can likely transition to PO lasix in next day - cxr reviewed and shows improving congestion - will follow Dr Hernandez
[2017-06-25] MEDS ORDERED: WARFARIN NA 3 MG TABLET PO SCH (18:00)
--- NOTE | 2017-06-26 00:53 | CONSULT ---
Consult Consult Specialty:: endocrine Referred by:: [email or web address] Reason for Consultation:: thyroiditis - History of Present Illness Chief Complaint: chest pain History of Present Illness: 76 year old female, with a significant past medical history of AFib(on coumadin) , CHF, mitral insufficiency, hypertension, hypothyroidism, asthma, COPD, and osteoarthritis, who presents to the emergency department complaining of chest pain for approximately 2 days. The patient reports her chest pain began yesterday while at rest. She describes the pain as a dull pressure that is nonradiating in nature. Patient reports her chest pain resolved on its own, but returned today and has been constant. she has history of hyperthyroidism which was treated with methimazole in past has occasional heat intolerance and palpitation,denies weight loss. - History Source History Provided By: Patient - Past Medical History Cardio/Vascular: Yes: AFIB (REFUSED ANTICOAGULATION IN PAST NOW ON COUMADIN), HTN, Mitral Insufficiency Pulmonary: Yes: Asthma, Bronchitis, COPD Gastrointestinal: Yes: GERD Musculoskeletal: Yes: Osteoarthritis Endocrine: Yes: Hyperthyroidism. No: Diabetes Mellitus Additional Medical History: LEFT POPLITEAL DVT - Past Surgical History Past Surgical History: Yes: Tubal Ligation - Alcohol/Substance Use Hx Alcohol Use: No - Smoking History Smoking history: Never smoked Have you smoked in the past 12 months: No Aproximately how many cigarettes per day: 0 - Social History ADL: Independent History of Recent Travel: No Home Medications - Allergies Allergies/Adverse Reactions: Allergies Allergy/AdvReac Type Severity Reaction Status Date / Time ampicillin [Ampicillin] Allergy Severe Swelling Verified 06/23/17 14:17 codeine [Codeine] Allergy Swelling Verified 06/23/17 14:17 - Home Medications Home Medications: Ambulatory Orders Digoxin [Lanoxin -] 0.125 mg PO DAILY tablet 05/27/16 Diltiazem Cd [Cardizem Cd -] 240 mg PO HS 08/30/16 Furosemide [Lasix -] 40 mg PO DAILY 08/30/16 Hydralazine HCl [Apresoline -] 10 mg PO BID #60 tablet 11/18/16 Tamsulosin HCl [Flomax] 0.4 mg PO HS 05/29/17 Warfarin Na [Coumadin] 4 mg PO SUTUTHSA 05/29/17 Warfarin Na [Coumadin] 6 mg PO MOWEFR 05/29/17 Family Disease History - Family Disease History Family Disease History: Diabetes: Father (HTN) Review of Systems - Review of Systems Constitutional: reports: Loss of Appetite, Weakness Eyes: reports: No Symptoms HENT: reports: No Symptoms Neck: reports: No Symptoms Cardiovascular: reports: Palpitations, Shortness of Breath Respiratory: reports: Exercise Intolerance, SOB on Exertion, Wheezing Gastrointestinal: reports: Bloating Genitourinary: reports: No Symptoms Breasts: reports: No Symptoms Reported Musculoskeletal: reports: Muscle Pain, Muscle Cramps Integumentary: reports: No Symptoms Neurological: reports: No Symptoms Endocrine: reports: No Symptoms Physical Exam Vital Signs: Vital Signs Temperature 97.6 F 06/25/17 18:00 Pulse Rate 92 H 06/25/17 18:00 Respiratory Rate 20 06/25/17 18:00 Blood Pressure 124/79 06/25/17 18:00 O2 Sat by Pulse Oximetry (%) 96 06/25/17 09:00 Constitutional: Yes: Anxious Eyes: Yes: EOM Intact HENT: Yes: Normocephalic Neck: Yes: Trachea Midline Cardiovascular: Yes: Pulse Irregular Respiratory: Yes: CTA Bilaterally Gastrointestinal: Yes: WNL ...Rectal Exam: Yes: WNL Renal/: Yes: WNL Breast(s): Yes: WNL Musculoskeletal: Yes: WNL Extremities: Yes: WNL Edema: No Neurological: Yes: WNL, Alert, Oriented Labs: CBC, BMP 06/24/17 07:00 06/25/17 05:35 Problem List - Problems (1) Acute exacerbation of CHF (congestive heart failure) Code(s): I50.9 - HEART FAILURE, UNSPECIFIED (2) Acute on chronic diastolic (congestive) heart failure Code(s): I50.33 - ACUTE ON CHRONIC DIASTOLIC (CONGESTIVE) HEART FAILURE (3) Anxiety and depression Code(s): F41.9 - ANXIETY DISORDER, UNSPECIFIED F32.9 - MAJOR DEPRESSIVE DISORDER, SINGLE EPISODE, UNSPECIFIED (4) Asthma Code(s): J45.909 - UNSPECIFIED ASTHMA, UNCOMPLICATED Qualifiers: Asthma severity: mild persistent Assessment/Plan Current Active Problems Acute exacerbation of CHF (congestive heart failure) (Acute) Hypokalemia (Acute) hyerthyroidism history multinodular thyroid thyroiditis afib Abnormal Lab Results 06/25/17 06/25/17 06/25/17 05:35 09:10 17:00 INR 1.79 H PTT (Actin FS) 46.6 H Random Glucose 155 H D AST 13 L ALT 10 L Laboratory Results - last 24 hr 06/25/17 06/25/17 06/25/17 05:35 09:10 17:00 INR 1.79 H PTT (Actin FS) 46.6 H Sodium 140 Potassium 3.9 Chloride 104 Carbon Dioxide 24 Anion Gap 12 BUN 14 D Creatinine 0.7 Creat Clearance w eGFR > 60 Random Glucose 155 H D Calcium 9.0 Magnesium 2.2 Total Bilirubin 0.6 D AST 13 L ALT 10 L Alkaline Phosphatase 93 Total Protein 6.6 Albumin 3.5 plan: check tsh free t4 follow up for thyroid sonogram nodular goiter
[2017-06-26 05:47] VITALS: BP 160/94; TEMP 98.2
[2017-06-26 07:34] LABS: INR 1.81 (0.82-1.09); MCH 29.8 pg (25.7-33.7); MCHC 32.9 g/dl (32.0-36.0); MEAN CELL VOLUME 90.6 fl (80-96); MEAN PLT VOLUME 9.8 fl (7.5-11.1); PLATELET COUNT 193 K/MM3 (134-434); PROTHROMBIN TIME (PATIENT) 20.2 SEC (9.98-11.88); RDW 15.5 % (11.6-15.6); WHITE BLOOD COUNT 12.7 K/mm3 (4.0-10.0)
[2017-06-26 08:19] LABS: ANION GAP 7 (8-16); CALCIUM 8.9 mg/dL (8.5-10.1); CO2 26 mmol/L (21-32); CREATININE 0.8 mg/dL (0.55-1.02); FREE T4 1.19 ng/dl (0.76-1.46); GLUCOSE,RANDOM 147 mg/dL (74-106); MAGNESIUM 2.2 mg/dL (1.8-2.4); THYROID STIMULATING HORMONE 0.15 uIU/ml (0.358-3.74)
--- NOTE | 2017-06-26 08:36 | PN ---
Progress Note, Physician Chief Complaint: feels better TELE: AF, rate controlled. Few pauses < 2.5 seconds - Current Medication List Current Medications: Active Medications Acetaminophen (Tylenol -) 650 mg PO Q6H PRN PRN Reason: FEVER OR PAIN Last Admin: 06/25/17 09:46 Dose: 650 mg Albuterol/Ipratropium (Duoneb -) 1 amp NEB Q4H PRN PRN Reason: SHORTNESS OF BREATH Last Admin: 06/25/17 06:55 Dose: 1 amp Digoxin (Lanoxin -) 0.125 mg PO DAILY [facility] Last Admin: 06/25/17 09:31 Dose: 0.125 mg Diltiazem HCl (Cardizem Cd -) 240 mg PO DAILY [facility] Last Admin: 06/25/17 09:30 Dose: 240 mg Furosemide (Lasix Injection -) 40 mg IVPB DAILY [facility] Last Admin: 06/25/17 09:29 Dose: 40 mg Heparin Sodium (Porcine) (Heparin -) 5,000 unit IVPUSH PRN PRN Heparin Sodium (Porcine) (Heparin -) 1,000 unit IVPUSH PRN PRN Last Admin: 06/25/17 19:05 Dose: 1,000 unit Hydralazine HCl (Apresoline -) 10 mg PO BID [facility] Last Admin: 06/25/17 21:46 Dose: 10 mg Heparin Sodium (Porcine) 25, (000 unit/ Sodium Chloride) 500 mls @ 20 mls/hr IV TITR BLESSING; 1,000 UNIT/HR PRN Reason: Protocol Last Admin: 06/25/17 19:04 Dose: 22 mls/hr Losartan Potassium (Cozaar -) 50 mg PO DAILY [facility] Last Admin: 06/25/17 09:31 Dose: 50 mg Methylprednisolone Sodium Succinate (Solu-Medrol -) 20 mg IVPB BID [facility] Last Admin: 06/25/17 21:46 Dose: 20 mg Potassium Chloride (K-Dur -) 20 meq PO DAILY [facility] Last Admin: 06/25/17 09:31 Dose: 20 meq Tamsulosin HCl (Flomax -) 0.4 mg PO DAILY@0830 [facility] Last Admin: 06/25/17 09:31 Dose: 0.4 mg - Objective Vital Signs: Vital Signs Temperature 98.2 F 06/26/17 05:46 Pulse Rate 88 06/26/17 05:46 Respiratory Rate 16 06/26/17 05:46 Blood Pressure 160/94 06/26/17 05:46 O2 Sat by Pulse Oximetry (%) 96 06/25/17 21:00 Constitutional: Yes: Well Nourished Cardiovascular: Yes: Pulse Irregular Respiratory: Yes: CTA Bilaterally (rales cleared) Gastrointestinal: Yes: Soft Edema: No Neurological: Yes: Alert Labs: CBC, BMP 06/26/17 05:35 06/26/17 05:35 INR, PTT INR 1.81 (0.82-1.09) H 06/26/17 05:35 Laboratory Tests 06/26/17 06/26/17 06/26/17 05:35 05:35 05:35 WBC 12.7 H D Hgb 13.2 Plt Count 193 INR 1.81 H PTT (Actin FS) Potassium 4.0 BUN 27 H D Creatinine 0.8 Magnesium 2.2 TSH 0.15 L D Free T4 1.19 D 06/26/17 05:35 WBC Hgb Plt Count INR PTT (Actin FS) 59.9 H Potassium BUN Creatinine Magnesium TSH Free T4 - ....Imaging EKG: Image Reviewed Assessment/Plan IMP: Hypertensive heart dz with LA enlargement and permanent AF Chronic PHTN secondary to chronic asthma and valvular heart dz Moderate MR (Eccentric jet, 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 Symptoms do not sound c/w her typical asthma/COPD sx. REC: 1. Euvolemic. Would switch to PO Lasix after today's IV dose. 2. Coumadin held for cath, now on heparin gtts ( AF, prior PE). 3. Losartan added yesterday for BP and afterload reduction: BP improved but still above goal, would increase to 50 BID. 4. Plan for tx to [facility] for cath and RUTH to better assess MR severity. Cath recommended for definitive coronary assessment for evaluation of recurrent CHF episodes and as evaluation of her chest pain.
--- NOTE | 2017-06-26 08:58 | PN ---
Progress Note, Physician History of Present Illness: feels better no cp no sob in bed - Current Medication List Current Medications: Active Medications Acetaminophen (Tylenol -) 650 mg PO Q6H PRN PRN Reason: FEVER OR PAIN Last Admin: 06/25/17 09:46 Dose: 650 mg Albuterol/Ipratropium (Duoneb -) 1 amp NEB Q4H PRN PRN Reason: SHORTNESS OF BREATH Last Admin: 06/25/17 06:55 Dose: 1 amp Digoxin (Lanoxin -) 0.125 mg PO DAILY [facility] Last Admin: 06/25/17 09:31 Dose: 0.125 mg Diltiazem HCl (Cardizem Cd -) 240 mg PO DAILY [facility] Last Admin: 06/25/17 09:30 Dose: 240 mg Furosemide (Lasix Injection -) 40 mg IVPB DAILY [facility] Last Admin: 06/25/17 09:29 Dose: 40 mg Heparin Sodium (Porcine) (Heparin -) 5,000 unit IVPUSH PRN PRN Heparin Sodium (Porcine) (Heparin -) 1,000 unit IVPUSH PRN PRN Last Admin: 06/25/17 19:05 Dose: 1,000 unit Hydralazine HCl (Apresoline -) 10 mg PO BID [facility] Last Admin: 06/25/17 21:46 Dose: 10 mg Heparin Sodium (Porcine) 25, (000 unit/ Sodium Chloride) 500 mls @ 20 mls/hr IV TITR [facility]; 1,000 UNIT/HR PRN Reason: Protocol Last Admin: 06/25/17 19:04 Dose: 22 mls/hr Losartan Potassium (Cozaar -) 50 mg PO BID [facility] Methylprednisolone Sodium Succinate (Solu-Medrol -) 20 mg IVPB BID [facility] Last Admin: 06/25/17 21:46 Dose: 20 mg Potassium Chloride (K-Dur -) 20 meq PO DAILY [facility] Last Admin: 06/25/17 09:31 Dose: 20 meq Tamsulosin HCl (Flomax -) 0.4 mg PO DAILY@0830 [facility] Last Admin: 06/25/17 09:31 Dose: 0.4 mg - Objective Vital Signs: Vital Signs Temperature 98.2 F 06/26/17 05:46 Pulse Rate 88 06/26/17 05:46 Respiratory Rate 16 06/26/17 05:46 Blood Pressure 160/94 06/26/17 05:46 O2 Sat by Pulse Oximetry (%) 96 06/25/17 21:00 Cardiovascular: Yes: Murmur, S1, S2 Respiratory: Yes: Regular, CTA Bilaterally Gastrointestinal: Yes: Normal Bowel Sounds, Soft Labs: CBC, BMP 06/26/17 05:35 06/26/17 05:35 INR, PTT INR 1.81 (0.82-1.09) H 06/26/17 05:35 Problem List - Problems (1) Acute exacerbation of CHF (congestive heart failure) Assessment/Plan: IV LASIX MONITOR LYTES Code(s): I50.9 - HEART FAILURE, UNSPECIFIED Qualifiers: Congestive heart failure type: diastolic Qualified Code(s): I50.33 - Acute on chronic diastolic (congestive) heart failure (2) Hypokalemia Assessment/Plan: REPLACED MONITOR Code(s): E87.6 - HYPOKALEMIA (3) Acute asthma exacerbation Assessment/Plan: TAPER STEROID Code(s): J45.901 - UNSPECIFIED ASTHMA WITH (ACUTE) EXACERBATION Qualifiers: (4) Atrial fibrillation Assessment/Plan: OFF COUMADIN ON HEPARIN FOR CATH INR, PTT INR 1.94 (0.82-1.09) H 06/24/17 07:00 Code(s): I48.91 - UNSPECIFIED ATRIAL FIBRILLATION Qualifiers: Atrial fibrillation type: permanent Qualified Code(s): I48.2 - Chronic atrial fibrillation (5) Chest pain Assessment/Plan: Troponin, BNP 06/24/17 06/24/17 07:00 09:14 Troponin I 0.03 Cancelled NOTED BY CARDIOLOGY=FOR CATH Code(s): R07.9 - CHEST PAIN, UNSPECIFIED Qualifiers: Chest pain type: chest pain due to myocardial ischemia
[2017-06-26] MEDS ORDERED: LOSARTAN POTASSIUM 50 MG TABLET (FP) PO SCH (10:00)
[2017-06-26] MEDS: POTASSIUM CHLORIDE TABS 10 MEQ TABLET.ER (FP) PO SCH (10:50)
[2017-06-26] MEDS: methylPREDNISolone NA SUCC 40 MG/1 ML VIAL IVPB SCH (10:51)
[2017-06-26] MEDS: DIGOXIN 0.125 MG TABLET (FP) PO SCH (10:51)
[2017-06-26] MEDS: hydrALAZINE HCL 10 MG TABLET PO SCH (10:51)
[2017-06-26] MEDS: FUROSEMIDE 40 MG/4 ML INJECTABLE VIAL IVPB SCH ×2 (10:51→10:59)
[2017-06-26 10:52] VITALS: PULSE 84
[2017-06-26] MEDS: HEPARIN - 25,000 UNIT in SODIUM CHLORIDE 495 ML IV SCH (10:52)
[2017-06-26] MEDS: TAMSULOSIN HCL 0.4 MG CAP.ER.24H (FP) PO SCH (11:00)
--- NOTE | 2017-06-26 12:46 | PN ---
Progress Note (short form) - Note Progress Note: OOB to chair. Comfortable on RA. Breathing feels much improved. No CP. Intake & Output 06/23/17 06/24/17 06/25/17 06/26/17 23:59 23:59 23:59 23:59 Intake Total 240 640 300 Balance 240 640 300 Weight 190 lb 6.4 oz 190 lb 6.4 oz 188 lb 6 oz 191 lb Last Vital Signs Temp Pulse Resp BP Pulse Ox 98.2 F 84 16 160/94 96 06/26/17 05:46 06/26/17 10:51 06/26/17 05:46 06/26/17 05:46 06/25/17 21:00 Active Medications Acetaminophen (Tylenol -) 650 mg PO Q6H PRN PRN Reason: FEVER OR PAIN Last Admin: 06/25/17 09:46 Dose: 650 mg Albuterol/Ipratropium (Duoneb -) 1 amp NEB Q4H PRN PRN Reason: SHORTNESS OF BREATH Last Admin: 06/25/17 06:55 Dose: 1 amp Digoxin (Lanoxin -) 0.125 mg PO DAILY [facility] Last Admin: 06/26/17 10:51 Dose: 0.125 mg Diltiazem HCl (Cardizem Cd -) 240 mg PO DAILY [facility] Last Admin: 06/26/17 10:50 Dose: 240 mg Furosemide (Lasix Injection -) 40 mg IVPB DAILY [facility] Last Admin: 06/26/17 10:59 Dose: Not Given Heparin Sodium (Porcine) (Heparin -) 5,000 unit IVPUSH PRN PRN Heparin Sodium (Porcine) (Heparin -) 1,000 unit IVPUSH PRN PRN Last Admin: 06/25/17 19:05 Dose: 1,000 unit Hydralazine HCl (Apresoline -) 10 mg PO BID [facility] Last Admin: 06/26/17 10:51 Dose: 10 mg Heparin Sodium (Porcine) 25, (000 unit/ Sodium Chloride) 500 mls @ 20 mls/hr IV TITR BLESSING; 1,000 UNIT/HR PRN Reason: Protocol Last Admin: 06/26/17 10:52 Dose: 0.44 mls/hr Losartan Potassium (Cozaar -) 50 mg PO BID [facility] Last Admin: 06/26/17 10:51 Dose: 50 mg Methylprednisolone Sodium Succinate (Solu-Medrol -) 20 mg IVPB BID [facility] Last Admin: 06/26/17 10:51 Dose: 20 mg Potassium Chloride (K-Dur -) 20 meq PO DAILY [facility] Last Admin: 06/26/17 10:50 Dose: 20 meq Tamsulosin HCl (Flomax -) 0.4 mg PO DAILY@0830 [facility] Last Admin: 06/26/17 11:00 Dose: 0.4 mg Constitutional: Yes: Well Nourished, Calm Eyes: Yes: WNL HENT: Yes: WNL Neck: Yes: WNL Cardiovascular: Yes: Pulse Irregular, S1, S2 Respiratory: Yes: Few basilar Rales / Rhonchi Gastrointestinal: Yes: Normal Bowel Sounds, Soft Extremities: Yes: WNL Edema: Yes Labs: Laboratory Results - last 24 hr 06/25/17 06/26/17 06/26/17 17:00 01:00 05:35 WBC 12.7 H D RBC 4.43 Hgb 13.2 Hct 40.1 MCV 90.6 MCH 29.8 MCHC 32.9 RDW 15.5 Plt Count 193 MPV 9.8 INR PTT (Actin FS) 46.6 H 62.4 H D Sodium Potassium Chloride Carbon Dioxide Anion Gap BUN Creatinine Random Glucose Calcium Magnesium TSH Free T4 06/26/17 06/26/17 06/26/17 05:35 05:35 05:35 WBC RBC Hgb Hct MCV MCH MCHC RDW Plt Count MPV INR 1.81 H PTT (Actin FS) 59.9 H Sodium 139 Potassium 4.0 Chloride 106 Carbon Dioxide 26 Anion Gap 7 L BUN 27 H D Creatinine 0.8 Random Glucose 147 H Calcium 8.9 Magnesium 2.2 TSH 0.15 L D Free T4 1.19 D 06/26/17 05:35 WBC RBC Hgb Hct MCV MCH MCHC RDW Plt Count MPV INR PTT (Actin FS) Sodium Potassium Chloride Carbon Dioxide Anion Gap BUN Creatinine Random Glucose Calcium Magnesium TSH Free T4 Cancelled Problem List - Problems (1) Anemia Code(s): D64.9 - ANEMIA, UNSPECIFIED Qualifiers: Anemia type: other cause Other causes of anemia: acute posthemorrhagic Qualified Code(s): D62 - Acute posthemorrhagic anemia (2) Asthma Code(s): J45.909 - UNSPECIFIED ASTHMA, UNCOMPLICATED (3) Atrial fibrillation Code(s): I48.91 - UNSPECIFIED ATRIAL FIBRILLATION Qualifiers: Atrial fibrillation type: permanent Qualified Code(s): I48.2 - Chronic atrial fibrillation (4) COPD (chronic obstructive pulmonary disease) with chronic bronchitis Code(s): J44.9 - CHRONIC OBSTRUCTIVE PULMONARY DISEASE, UNSPECIFIED (5) Chest pain Code(s): R07.9 - CHEST PAIN, UNSPECIFIED Qualifiers: Chest pain type: chest pain due to myocardial ischemia Qualified Code(s ): I20.9 - Angina pectoris, unspecified (6) Chest pain at rest Code(s): R07.9 - CHEST PAIN, UNSPECIFIED (7) Dyspnea Code(s): R06.00 - DYSPNEA, UNSPECIFIED (8) Hypertension Code(s): I10 - ESSENTIAL (PRIMARY) HYPERTENSION Qualifiers: Hypertension type: essential hypertension Qualified Code(s): I10 - Essential (primary) hypertension (9) Hyperthyroidism Code(s): E05.90 - THYROTOXICOSIS, UNSP WITHOUT THYROTOXIC CRISIS OR STORM (10) Mitral regurgitation Code(s): I34.0 - NONRHEUMATIC MITRAL (VALVE) INSUFFICIENCY Qualifiers: Cardiac valve disease etiology: nonrheumatic Qualified Code(s): I34.0 - Nonrheumatic mitral (valve) insufficiency (11) Pulmonary arterial hypertension Code(s): I27.2 - OTHER SECONDARY PULMONARY HYPERTENSION (12) Pulmonary hypertension Code(s): I27.2 - OTHER SECONDARY PULMONARY HYPERTENSION (13) VHD (valvular heart disease) Code(s): I38 - ENDOCARDITIS, VALVE UNSPECIFIED Assessment/Plan MP CHEST PAIN SYNDROME CHRONIC PERSISTENT ASTHMA AFIB PULMONARY HTN HTN H/O DVT PLAN O2 INHALED BRONCHODILATORS LASIX AC IN THE AM CAN CHANGE TO PREDNISONE AND LIKELY D/C HOME DR [facility]
--- NOTE | 2017-06-26 13:27 | PN ---
Progress Note, Physician History of Present Illness: Pt seen and examined at bedside. She is awake and alert. She denies shortness of breath. - Current Medication List Current Medications: Active Medications Acetaminophen (Tylenol -) 650 mg PO Q6H PRN PRN Reason: FEVER OR PAIN Last Admin: 06/25/17 09:46 Dose: 650 mg Albuterol/Ipratropium (Duoneb -) 1 amp NEB Q4H PRN PRN Reason: SHORTNESS OF BREATH Last Admin: 06/25/17 06:55 Dose: 1 amp Digoxin (Lanoxin -) 0.125 mg PO DAILY [facility] Last Admin: 06/26/17 10:51 Dose: 0.125 mg Diltiazem HCl (Cardizem Cd -) 240 mg PO DAILY [facility] Last Admin: 06/26/17 10:50 Dose: 240 mg Furosemide (Lasix Injection -) 40 mg IVPB DAILY [facility] Last Admin: 06/26/17 10:59 Dose: Not Given Heparin Sodium (Porcine) (Heparin -) 5,000 unit IVPUSH PRN PRN Heparin Sodium (Porcine) (Heparin -) 1,000 unit IVPUSH PRN PRN Last Admin: 06/25/17 19:05 Dose: 1,000 unit Hydralazine HCl (Apresoline -) 10 mg PO BID [facility] Last Admin: 06/26/17 10:51 Dose: 10 mg Heparin Sodium (Porcine) 25, (000 unit/ Sodium Chloride) 500 mls @ 20 mls/hr IV TITR BLESSING; 1,000 UNIT/HR PRN Reason: Protocol Last Admin: 06/26/17 10:52 Dose: 0.44 mls/hr Losartan Potassium (Cozaar -) 50 mg PO BID [facility] Last Admin: 06/26/17 10:51 Dose: 50 mg Methylprednisolone Sodium Succinate (Solu-Medrol -) 20 mg IVPB BID [facility] Last Admin: 06/26/17 10:51 Dose: 20 mg Potassium Chloride (K-Dur -) 20 meq PO DAILY [facility] Last Admin: 06/26/17 10:50 Dose: 20 meq Tamsulosin HCl (Flomax -) 0.4 mg PO DAILY@0830 [facility] Last Admin: 06/26/17 11:00 Dose: 0.4 mg - Objective Vital Signs: Vital Signs Temperature 98.2 F 06/26/17 05:46 Pulse Rate 84 06/26/17 10:51 Respiratory Rate 16 06/26/17 05:46 Blood Pressure 160/94 06/26/17 05:46 O2 Sat by Pulse Oximetry (%) 96 06/25/17 21:00 Constitutional: Yes: Calm Eyes: Yes: Conjunctiva Clear HENT: Yes: Atraumatic Neck: Yes: Supple Cardiovascular: Yes: S1, S2 Respiratory: Yes: CTA Bilaterally Gastrointestinal: Yes: Soft Genitourinary: Yes: WNL Edema: No Neurological: Yes: Oriented Psychiatric: Yes: Oriented Labs: CBC, BMP 06/26/17 05:35 06/26/17 05:35 INR, PTT INR 1.81 (0.82-1.09) H 06/26/17 05:35 Problem List - Problems (1) Atrial fibrillation Code(s): I48.91 - UNSPECIFIED ATRIAL FIBRILLATION Qualifiers: Atrial fibrillation type: permanent Qualified Code(s): I48.2 - Chronic atrial fibrillation (2) CHF (congestive heart failure) Code(s): I50.9 - HEART FAILURE, UNSPECIFIED Qualifiers: Congestive heart failure type: unspecified congestive heart failure type Congestive heart failure chronicity: acute Qualified Code(s): I50.9 - Heart failure, unspecified (3) COPD (chronic obstructive pulmonary disease) Code(s): J44.9 - CHRONIC OBSTRUCTIVE PULMONARY DISEASE, UNSPECIFIED (4) Hypokalemia Code(s): E87.6 - HYPOKALEMIA Assessment/Plan Current Medications Generic Name Dose Route Start Last Admin Trade Name Freq PRN Reason Stop Dose Admin Acetaminophen 650 mg 06/23/17 20:39 06/25/17 09:46 Tylenol - PO 650 mg Q6H PRN Administration FEVER OR PAIN Albuterol/Ipratropium 1 amp 06/24/17 11:33 06/25/17 06:55 Duoneb - NEB 1 amp Q4H PRN Administration SHORTNESS OF BREATH Digoxin 0.125 mg 06/24/17 10:00 06/26/17 10:51 Lanoxin - PO 0.125 mg DAILY BLESSING Administration Diltiazem HCl 240 mg 06/24/17 10:00 06/26/17 10:50 Cardizem Cd - PO 240 mg DAILY BLESSING Administration Furosemide 40 mg 06/24/17 10:00 06/26/17 10:59 Lasix Injection - IVPB Not Given DAILY BLESSING Heparin Sodium (Porcine) 5,000 unit 06/25/17 10:50 Heparin - IVPUSH PRN PRN Heparin Sodium (Porcine) 1,000 unit 06/25/17 10:50 06/25/17 19:05 Heparin - IVPUSH 1,000 unit PRN PRN Administration Hydralazine HCl 10 mg 06/23/17 22:00 06/26/17 10:51 Apresoline - PO 10 mg BID BLESSING Administration Heparin Sodium (Porcine) 25, 500 mls @ 20 mls/hr 06/25/17 11:00 06/26/17 10:52 000 unit/ Sodium Chloride IV 0.44 mls/hr TITR BLESSING Administration Protocol 1,000 UNIT/HR Losartan Potassium 50 mg 06/26/17 10:00 06/26/17 10:51 Cozaar - PO 50 mg BID BLESSING Administration Methylprednisolone Sodium Succinate 20 mg 06/25/17 10:00 06/26/17 10:51 Solu-Medrol - IVPB 20 mg BID BLESSING Administration Potassium Chloride 20 meq 06/25/17 10:00 06/26/17 10:50 K-Dur - PO 20 meq DAILY BLESSING Administration Tamsulosin HCl 0.4 mg 06/24/17 08:30 06/26/17 11:00 Flomax - PO 0.4 mg DAILY@0830 BLESSING Administration Impression 1. Hypokalemia 2. a-fib 3. HTN 4. COPD 5. arthritis 6. CHF 7. asthma Plan - lytes are stable - consider changing to PO lasix - bun elevated likely secondary to steroids, monitor trend after discharge - cont losartan - will follow Dr Hernandez
== END 2017-06-26 15:52 | disposition short-term general hospital (02) | DRG 292 ==
LOC: JER 13:56 → JERBED 18:47 → J4W 20:33
PROVIDERS: ADMIT Family Medicine; ATTEND Family Medicine
DX: I50.9 Heart failure, unspecified (principal); J45.31 Mild persistent asthma with (acute) exacerbation; I48.91 Unspecified atrial fibrillation; I10 Essential (primary) hypertension; E03.9 Hypothyroidism, unspecified; J44.9 Chronic obstructive pulmonary disease, unspecified; Z79.01 Long term (current) use of anticoagulants; I34.0 Nonrheumatic mitral (valve) insufficiency; K76.0 Fatty (change of) liver, not elsewhere classified; I27.2 Other secondary pulmonary hypertension; E87.6 Hypokalemia; Z86.711 Personal history of pulmonary embolism; Z86.718 Personal history of other venous thrombosis and embolism
CPT/HCPCS: 36415; 71010-TC; 80048; 80053; 80162; 83735; 83880; 84439; 84443; 84484; 85025; 85027; 85610; 85730; 93005; 93010; 93306-TC; 94640; 99283-25; J1644

== ENCOUNTER 2017-07-12 05:10 | Inpatient (IN) | payer OTHER ==
[2017-07-12] MEDS ORDERED: ALBUTEROL SO4 2.5/IPRATROPIUM 0.5 INH SOL 3 ML VIAL.NEB. NEB ONE ×2 (05:15→05:17)
[2017-07-12] MEDS ORDERED: predniSONE 20 MG TABLET (UD) PO ONE (05:17)
--- NOTE | 2017-07-12 05:26 | PDOC ---
History of Present Illness - General History Source: Patient Exam Limitations: No Limitations - History of Present Illness Initial Comments: 07/12/17 06:18 Patient is a 76 year old female with a significant past medical history of AFib( on coumadin), CHF, mitral insufficiency, hypertension, hypothyroidism, asthma, COPD, and osteoarthritis who presents to the ED with complaints of shortness of breath for 7 hours. Patient reports getting discharged from [facility] yesterday for prolonged admission for cardiac evaluation. As per patient's daughter patient has been has experiencing intermittent episodes of wheezing and SOB during her hospitalization. Patients shelbi reports patient continued to wheeze with SOB after returning home. Patients was was admitted to [facility] for congestive heart failure and asthma exacerbation. Denies nausea, vomiting. Denies fever, chills. Denies any other symptoms. Allergies: Ampicillin, Codeine. Social history: No smoking. No alcohol. No illicit Drugs. Surgical history: Tubal Ligation PMD: Dr. Perez 07/12/17 06:54 <Steve Lang - Last Filed: 07/12/17 06:54> - General History Source: Patient Exam Limitations: No Limitations <Felipe Hughes - Last Filed: 07/12/17 07:05> <Annie Downey - Last Filed: 07/12/17 07:39> - General Stated Complaint: DIFFICULTY BREATHING Time Seen by Provider: 07/12/17 05:16 Past History <Steve Lang - Last Filed: 07/12/17 06:54> - Past Medical History Anemia: No Asthma: Yes (NO MEDS) Cancer: No Cardiac Disorders: Yes (AFIB) CVA: No COPD: No CHF: Yes Dementia: No Diabetes: No GI Disorders: No Disorders: No HTN: Yes Hypercholesterolemia: No Liver Disease: Yes (FATTY LIVER) Seizures: No Thyroid Disease: Yes (HYPO, NO MEDS) - Surgical History Abdominal Surgery: Yes (TUBAL LIGATION) Appendectomy: No Cardiac Surgery: No Cholecystectomy: No Lung Surgery: No Neurologic Surgery: No Orthopedic Surgery: No - Family Disease History Family Disease History: Diabetes: Father, Heart Disease: Father, Mother - Immunization History Immunization Up to Date: Yes - Suicide/Smoking/Psychosocial Hx Smoking Status: No Smoking History: Never smoked Have you smoked in the past 12 months: No Number of Cigarettes Smoked Daily: 0 Cigars Per Day: 0 Information on smoking cessation initiated: No Hx Alcohol Use: No Drug/Substance Use Hx: No Substance Use Type: None Hx Substance Use Treatment: No <EllenFelipe - Last Filed: 07/12/17 07:05> <JessenialeeAnnie - Last Filed: 07/12/17 07:39> - Past Medical History Allergies/Adverse Reactions: Allergies Allergy/AdvReac Type Severity Reaction Status Date / Time ampicillin [Ampicillin] Allergy Severe Swelling Verified 07/12/17 05:24 codeine [Codeine] Allergy Swelling Verified 07/12/17 05:24 Home Medications: Ambulatory Orders Acetaminophen [Tylenol] 650 mg PO BID 07/12/17 Albuterol 2.5/Ipratropium 0.5 [Duoneb -] 1 neb NEB Q4H 07/12/17 Aspirin [ASA -] 81 mg PO DAILY 07/12/17 Budesonide [Pulmicort Flexhaler] 90 mcg IH BID 07/12/17 Diltiazem HCl [Diltiazem 24Hr Cd] 180 mg PO DAILY 07/12/17 Diltiazem HCl [Diltiazem 24Hr Cd] 240 mg PO DAILY 07/12/17 Famotidine [Pepcid] 20 mg PO DAILY 07/12/17 Furosemide [Lasix] 40 mg PO DAILY 07/12/17 Potassium Chloride 20 meq PO DAILY 07/12/17 Sennosides [Senna] 17.2 mg PO DAILY 07/12/17 Warfarin Sodium 6 mg PO ASDIR 07/12/17 Warfarin Sodium [Coumadin] 4 mg PO ASDIR 07/12/17 Review of Systems - Review of Systems Able to Perform ROS?: Yes Comments:: 07/12/17 06:18 GENERAL/CONSTITUTIONAL: No fever or chills. No weakness. HEAD, EYES, EARS, NOSE AND THROAT: No change in vision. No ear pain or discharge. No sore throat. CARDIOVASCULAR: +Chest pain. +SOB RESPIRATORY: No cough, wheezing, or hemoptysis. GASTROINTESTINAL: No nausea, vomiting, diarrhea or constipation. GENITOURINARY: No dysuria, frequency, or change in urination. MUSCULOSKELETAL: No joint or muscle swelling or pain. No neck or back pain. SKIN: No rash NEUROLOGIC: No headache, vertigo, loss of consciousness, or change in strength/ sensation. ENDOCRINE: No increased thirst. No abnormal weight change. HEMATOLOGIC/LYMPHATIC: No anemia, easy bleeding, or history of blood clots. ALLERGIC/IMMUNOLOGIC: No hives or skin allergy. All Other Systems: Reviewed and Negative <RickeySteve mayers - Last Filed: 07/12/17 06:54> *Physical Exam - Vital Signs Last Vital Signs Temp Pulse Resp BP Pulse Ox 97.4 F L 93 H 16 119/80 100 07/12/17 05:21 07/12/17 05:21 07/12/17 05:21 07/12/17 05:21 07/12/17 05:21 - Physical Exam Comments: 07/12/17 06:18 GENERAL: Awake, alert, and fully oriented, in no acute distress HEAD: No signs of trauma EYES: PERRLA, EOMI, sclera anicteric, conjunctiva clear ENT: Auricles normal inspection, hearing grossly normal, nares patent, oropharynx clear without exudates. Moist mucosa NECK: Normal ROM, supple, no lymphadenopathy, JVD, or masses LUNGS: +Wheezing bilaterally. Breath sounds equal, clear to auscultation bilaterally. No wheezes, and no crackles HEART: +Heart surgery scar dry and intact. +Irregularly irregular. normal S1 and S2, no murmurs, rubs or gallops ABDOMEN: Soft, nontender, normoactive bowel sounds. No guarding, no rebound. No masses EXTREMITIES: Normal range of motion, no edema. No clubbing or cyanosis. No cords, erythema, or tenderness NEUROLOGICAL: Cranial nerves II through XII grossly intact. Normal speech, normal gait SKIN: Warm, Dry, normal turgor, no rashes or lesions noted. <Steve Lang - Last Filed: 07/12/17 06:54> - Vital Signs Last Vital Signs Temp Pulse Resp BP Pulse Ox 97.4 F L 93 H 16 119/80 100 07/12/17 05:21 07/12/17 05:21 07/12/17 05:21 07/12/17 05:21 07/12/17 05:21 <Felipe Hughes - Last Filed: 07/12/17 07:05> - Vital Signs Last Vital Signs Temp Pulse Resp BP Pulse Ox 98.4 F 96 H 20 117/62 100 07/12/17 06:20 07/12/17 06:20 07/12/17 06:20 07/12/17 06:20 07/12/17 06:20 <Annie Downey - Last Filed: 07/12/17 07:39> Heart Score/ECG Review #1 ECG reviewed & interpreted by me at: 05:25 07/12/17 05:27 atrial fibrillation 96, no std/estefany, normal axis, normal intervals, QTC 469 msec <Felipe Hughes - Last Filed: 07/12/17 07:05> ED Treatment Course - LABORATORY CBC & Chemistry Diagram: 07/12/17 06:00 07/12/17 06:00 <Steve Lang - Last Filed: 07/12/17 06:54> - LABORATORY CBC & Chemistry Diagram: 07/12/17 06:00 07/12/17 06:00 - RADIOLOGY Radiology Studies Ordered: Category Date Time Status CHEST X-RAY PORTABLE* [RAD] Stat Radiology 07/12/17 05:17 Ordered <Felipe Hughes - Last Filed: 07/12/17 07:05> - LABORATORY CBC & Chemistry Diagram: 07/12/17 06:00 07/12/17 06:00 - ADDITIONAL ORDERS Additional order review: Laboratory Results 07/12/17 07/12/17 07/12/17 06:00 06:00 06:00 PT with INR INR PTT (Actin FS) Puncture Site Right brachial ABG pH 7.45 ABG pCO2 at Pt Temp 35.1 ABG pO2 at Pt Temp 174.0 H* D ABG HCO3 24.0 ABG O2 Sat (Measured) 99.8 H* ABG O2 Content 15.0 ABG Base Excess 0.7 Charlie Test Not applicable Carboxyhemoglobin 1.9 Methemoglobin 0.3 L O2 Delivery Device Aerosol mask Oxygen Flow Rate 6lpm PEEP 0.0 Sodium 139 Potassium 4.0 Chloride 107 Carbon Dioxide 25 Anion Gap 7 L BUN 15 D Creatinine 0.7 Creat Clearance w eGFR > 60 Random Glucose 114 H D Lactic Acid 0.8 Calcium 8.2 L Total Bilirubin 0.9 D AST 20 D ALT 14 D Alkaline Phosphatase 71 D Creatine Kinase 55 Troponin I 0.11 H B-Natriuretic Peptide 786.88 H Total Protein 5.8 L Albumin 2.8 L 07/12/17 06:00 PT with INR 24.40 H INR 2.18 H PTT (Actin FS) 32.1 D Puncture Site ABG pH ABG pCO2 at Pt Temp ABG pO2 at Pt Temp ABG HCO3 ABG O2 Sat (Measured) ABG O2 Content ABG Base Excess Charlie Test Carboxyhemoglobin Methemoglobin O2 Delivery Device Oxygen Flow Rate PEEP Sodium Potassium Chloride Carbon Dioxide Anion Gap BUN Creatinine Creat Clearance w eGFR Random Glucose Lactic Acid Calcium Total Bilirubin AST ALT Alkaline Phosphatase Creatine Kinase Troponin I B-Natriuretic Peptide Total Protein Albumin 07/12/17 06:20 Influenza Types A,B Antigen (GILBERT) - Final Nasopharyngeal Swab - Final 07/12/17 06:00 RBC 3.46 L D MCV 92.2 MCHC 33.3 RDW 15.4 MPV 8.0 D Neutrophils % 67.8 Lymphocytes % 18.6 D Monocytes % 10.2 Eosinophils % 2.3 Basophils % 1.1 - Medications Given in the ED: ED Medications Discontinued Medications Generic Name Dose Route Start Last Admin Trade Name Freq PRN Reason Stop Dose Admin Albuterol/Ipratropium 3 amp 07/12/17 05:17 07/12/17 06:41 Duoneb - NEB 07/12/17 05:18 3 amp ONCE ONE Administration Furosemide 40 mg 07/12/17 06:53 07/12/17 07:10 Lasix Injection - IVPB 07/12/17 06:54 40 mg ONCE ONE Administration Magnesium Sulfate 2 gm 07/12/17 07:17 07/12/17 07:37 Magnesium Sulfate IVPB 07/12/17 07:18 2 gm ONCE ONE Administration Prednisone 60 mg 07/12/17 05:17 07/12/17 06:41 Deltasone - PO 07/12/17 05:18 60 mg ONCE ONE Administration <Annie Downey - Last Filed: 07/12/17 07:39> Medical Decision Making - Medical Decision Making 07/12/17 05:26 A portion of this note was documented by scribe services under my direction. I have reviewed the details of the note, within reason, and agree with the documentation with the following case summary and management plan written by me. Patient treated in the ED. Nursing notes are reviewed and incorporated into the medical decision-making. Vital signs reviewed. Peripheral IV access obtained by the nurse, laboratory studies are drawn and sent, reviewed and interpreted by myself. Vital Signs Temp Pulse Resp BP Pulse Ox 97.4 F L 93 H 16 119/80 100 07/12/17 05:21 07/12/17 05:21 07/12/17 05:21 07/12/17 05:21 07/12/17 05:21 76-year-old female with history of atrial fibrillation on Coumadin, congestive heart failure, mitral insufficiency, hypertension, hypothyroidism, asthma, COPD , arthritis arthritis presents to the emergency department for shortness of breath. The patient was recently discharged from [facility] yesterday at 10 PM where she had a prolonged admission for cardiac evaluation. At that time, patient had a mitral valve replacement. According to the daughter, the patient has been wheezing and short of breath during her hospitalization. However, the patient was discharged yesterday night. Upon arrival to home, patient is noted to be wheezing and dyspneic and EMS was activated. EMS noted the patient to be wheezing and patient was placed on oxygen brought to the ED. As of note, the patient was seen here on June 23 for chest pain. She was admitted to the hospital for congestive heart failure and asthma exacerbation. The patient is diffusely wheezy and short of breath. Differential includes CHF, COPD exacerbation, pneumonia. We'll obtain labs, chest x-ray, BNP. Nebulizers, steroids. Patient will most certainly need admission to the hospital for further evaluation. 07/12/17 07:05 CBC, BMP 07/12/17 06:00 07/12/17 06:00 CMP Sodium 139 mmol/L (136-145) 07/12/17 06:00 Potassium 4.0 mmol/L (3.5-5.1) 07/12/17 06:00 Chloride 107 mmol/L (98-107) 07/12/17 06:00 Carbon Dioxide 25 mmol/L (21-32) 07/12/17 06:00 Anion Gap 7 (8-16) L 07/12/17 06:00 BUN 15 mg/dL (7-18) D 07/12/17 06:00 Creatinine 0.7 mg/dL (0.55-1.02) 07/12/17 06:00 Creat Clearance w eGFR > 60 (>60) 07/12/17 06:00 Random Glucose 114 mg/dL (74-106) H D 07/12/17 06:00 Lactic Acid 0.8 mmol/L (0.4-2.0) 07/12/17 06:00 Calcium 8.2 mg/dL (8.5-10.1) L 07/12/17 06:00 Total Bilirubin 0.9 mg/dL (0.2-1.0) D 07/12/17 06:00 AST 20 U/L (15-37) D 07/12/17 06:00 ALT 14 U/L (12-78) D 07/12/17 06:00 Alkaline Phosphatase 71 U/L (45-117) D 07/12/17 06:00 Creatine Kinase 55 IU/L (26-192) 07/12/17 06:00 Troponin I 0.11 ng/ml (0.00-0.05) H 07/12/17 06:00 B-Natriuretic Peptide 786.88 pg/ml (5-450) H 07/12/17 06:00 Total Protein 5.8 g/dl (6.4-8.2) L 07/12/17 06:00 Albumin 2.8 g/dl (3.4-5.0) L 07/12/17 06:00 Chest xray reviewed. Demonstrates cardiomegaly and some pulm vasc congestion. IV [address] Chris garcia for admission. <Felipe Hughes - Last Filed: 07/12/17 07:05> *DC/Admit/Observation/Transfer - Attestations Scribe Attestion: 07/12/17 06:19 Documentation prepared by Steve Lang, acting as hospitalist medical director for Felipe Hughes MD. <Steve Lang - Last Filed: 07/12/17 06:54> <Felipe Hughes - Last Filed: 07/12/17 07:05> - Discharge Dispostion Admit: Yes <Annie Downey - Last Filed: 07/12/17 07:39> Diagnosis at time of Disposition: Asthma attack, COPD (chronic obstructive pulmonary disease) with chronic bronchitis, CHF (congestive heart failure)
[2017-07-12 06:15] LABS: BASOPHIL 1.1 % (0-2.0); EOSINOPHIL 2.3 % (0-4.5); MCH 30.7 pg (25.7-33.7); MCHC 33.3 g/dl (32.0-36.0); MEAN CELL VOLUME 92.2 fl (80-96); NEUTROPHILS 67.8 % (42.8-82.8); PLATELET COUNT 333 K/MM3 (134-434); RDW 15.4 % (11.6-15.6); WHITE BLOOD COUNT 12.7 K/mm3 (4.0-10.0)
[2017-07-12 06:36] LABS: ARTERIAL BLD GAS O2 SATURATION 99.8 % (90-98.9); ARTERIAL BLOOD GAS BASE EXCESS 0.7 meq/l (-2-2); ARTERIAL BLOOD GAS pH 7.45 (7.35-7.45)
[2017-07-12] MEDS ORDERED: predniSONE 20 MG TABLET (UD) ONE (06:36)
[2017-07-12 06:38] LABS: METHEMOGLOBIN 0.3 % (0.4-1.5)
[2017-07-12 06:40] LABS: LPM/O2% 6LPM; PT. ON O2? YES
[2017-07-12 06:41] LABS: ART PUNCT SITE RIGHT BRACHIAL; TYPE OF O2 AEROSOL MASK
[2017-07-12 06:45] LABS: INR 2.18 (0.82-1.09); PROTHROMBIN TIME (PATIENT) 24.4 SEC (9.98-11.88)
[2017-07-12 06:46] LABS: ALBUMIN 2.8 g/dl (3.4-5.0); ANION GAP 7 (8-16); BILIRUBIN,TOTAL 0.9 mg/dL (0.2-1.0); CALCIUM 8.2 mg/dL (8.5-10.1); CO2 25 mmol/L (21-32); CREATININE 0.7 mg/dL (0.55-1.02); GLUCOSE,RANDOM 114 mg/dL (74-106); SGOT/AST 20 U/L (15-37); SGPT/ALT 14 U/L (12-78); TOT PROT 5.8 g/dl (6.4-8.2)
[2017-07-12 06:48] LABS: ACTIVATED PTT 32.1 SECONDS (26.9-34.4); ALK PHOS 71 U/L (45-117); CPK 55 IU/L (26-192); TROPONIN I 0.11 ng/ml (0.00-0.05)
[2017-07-12] MEDS ORDERED: FUROSEMIDE 40 MG/4 ML INJECTABLE VIAL IVPB ONE (06:53)
[2017-07-12] MEDS ORDERED: FUROSEMIDE 40 MG/4 ML INJECTABLE VIAL ONE (07:06)
[2017-07-12] MEDS ORDERED: MAGNESIUM SULF 50% (8.12 MEQ/2 ML-1 GM VIAL) IVPB ONE (07:17)
[2017-07-12] MEDS ORDERED: MAGNESIUM SULF 50% (8.12 MEQ/2 ML-1 GM VIAL) ONE (07:28)
[2017-07-12] MEDS ORDERED: morphine CARPU-JECT 4 MG/1 ML DISP.SYRIN IVPUSH ONE (07:43)
[2017-07-12] MEDS ORDERED: morphine CARPU-JECT 4 MG/1 ML DISP.SYRIN ONE (07:46)
[2017-07-12] MEDS: ALBUTEROL SO4 2.5/IPRATROPIUM 0.5 INH SOL 3 ML VIAL.NEB. NEB SCH ×4 (09:19→22:11)
[2017-07-12] MEDS: RANITIDINE HCL 150 MG TABLET (FP) PO SCH (09:35)
[2017-07-12 09:43] LABS: URINE APPEARANCE CLEAR; URINE BILIRUBIN NEGATIVE (NEGATIVE); URINE BLOOD NEGATIVE (NEGATIVE); URINE COLOR YELLOW; URINE GLUCOSE (UA) NEGATIVE (NEGATIVE); URINE KETONE NEGATIVE (NEGATIVE); URINE LEUK ESTERASE NEGATIVE (NEGATIVE); URINE NITRITE NEGATIVE (NEGATIVE); URINE PROTEIN NEGATIVE (NEGATIVE); URINE UROBILINOGEN NEGATIVE mg/dL (0.2-1.0)
--- NOTE | 2017-07-12 09:53 | CON.CARD ---
Cardiology Consult (text) - Consultation Consultation Note: Cardiology Consult/follwo up: frequent admissions 1. Permanent AF on Coumadin 2. Hypertensive heart disease with severe LA enlargement 3. Severe MR s/p MVR mechanical 2 weeks ago at [facility] (normal cors) 4. Mild to moderate PHTN 5. 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 Chronic asthma w/ frequent exacerbations. 7 Breast papiloma which was scheduled for bx end June Discharged from [facility] last night after MVR and felt SOB and wheezing all day. Returned to our ER where CXR showed congestive changes and left pleural effusion. Denies fever or chills, no palps. Denies chest pain. No edema. PMH/SHX: as above ALL: PCN and codeine FH: non contributory SH: independant, . No ETOH or smoking. Physical Exam: Alert and oriented CV: S1,2. irregular Chest: B/l rales and wheezing Abd: soft, nontender Ext: trace edema ECG: AF 108bpm, NSST CXR: Cardiomegaly, left effusion. Increased PVC Selected Entries 07/12/17 07/12/17 05:21 07:57 Temperature 97.4 F L 98.2 F Pulse Rate [ 98 H Apical] Pulse Rhythm [ Irregular Apical] Blood Pressure 121/75 [Left Arm] O2 Sat by Pulse 97 Oximetry (%) Oxygen Delivery Room Air Method Laboratory Tests 07/12/17 07/12/17 07/12/17 06:00 06:00 06:00 WBC 12.7 H Hgb 10.6 L D Plt Count 333 D INR 2.18 H ABG pH ABG pCO2 at Pt Temp ABG pO2 at Pt Temp Oxygen Flow Rate PEEP Sodium 139 Potassium 4.0 BUN 15 D Creatinine 0.7 Random Glucose 114 H D Creatine Kinase 55 Troponin I 0.11 H B-Natriuretic Peptide 786.88 H Total Protein 5.8 L Albumin 2.8 L 07/12/17 06:00 WBC Hgb Plt Count INR ABG pH 7.45 ABG pCO2 at Pt Temp 35.1 ABG pO2 at Pt Temp 174.0 H* D Oxygen Flow Rate 6lpm PEEP 0.0 Sodium Potassium BUN Creatinine Random Glucose Creatine Kinase Troponin I B-Natriuretic Peptide Total Protein Albumin IMP: Acute on chronic diastolic CHF S/P Mechanical MVR, 2 weeks ago Permanent AF Chronic COPD REC: Post op volume overload. Agree w/ IV Lasix, daily BMP. Telemetry Echo to assess prosthetic MVR, r/o pericardial effusion. Suspect wheezing is largely due to CHF, but pulmonary eval pending to determine need for steroids. INR is slightly below goal of 2.5-3.5, can increase the standing dose of Coumadin and check INR daily.
[2017-07-12] MEDS ORDERED: BUDESONIDE 90 MCG IH SCH (10:00)
[2017-07-12] MEDS ORDERED: PATIENT'S OWN MEDICATION (NON-FORMULARY) (Warfarin Sodium [Coumadin] 4 MG) PO SCH (10:00)
[2017-07-12] MEDS: BUDESONIDE 0.25 MG/2ML INH SUSP VIAL NEB SCH ×2 (12:08→22:12)
--- NOTE | 2017-07-12 12:58 | EKG ---
Test Reason : Blood Pressure : / mmHG Vent. Rate : 108 BPM Atrial Rate : 111 BPM P-R Int : 000 ms QRS Dur : 078 ms QT Int : 362 ms P-R-T Axes : 000 -17 117 degrees QTc Int : 485 ms ATRIAL FIBRILLATION WITH RAPID VENTRICULAR RESPONSE NONSPECIFIC ST AND T WAVE ABNORMALITY ABNORMAL ECG WHEN COMPARED WITH ECG OF 12-JUL-2017 05:25, NO SIGNIFICANT CHANGE WAS FOUND Confirmed by MATTHEW LUCAS MD ([id number]) on 07/12/2017 12:57:56 PM Referred By: Confirmed By:MATTHEW LUCAS MD
--- NOTE | 2017-07-12 12:59 | EKG ---
Test Reason : Blood Pressure : / mmHG Vent. Rate : 096 BPM Atrial Rate : 258 BPM P-R Int : 000 ms QRS Dur : 080 ms QT Int : 372 ms P-R-T Axes : 000 -19 066 degrees QTc Int : 469 ms ATRIAL FIBRILLATION LOW VOLTAGE QRS NONSPECIFIC ST ABNORMALITY Confirmed by MATTHEW LUCAS MD ([id number]) on 07/12/2017 12:58:28 PM Referred By: Confirmed By:MATTHEW LUCAS MD
[2017-07-12 14:39] VITALS: BMI 34.0
--- NOTE | 2017-07-12 15:08 | CON.PULM ---
Consult Consult Specialty:: PULMONARY Referred by:: STACEY Reason for Consultation:: SOB/COUGH/WHEEZE - History of Present Illness Chief Complaint: SOB/COUGH/WHEEZE History of Present Illness: 76-year-old female well known by our service with history of atrial fibrillation(previously refused coumadin)now on Coumadin s/p mvr mechanical at [facility]. Congestive heart failure, mitral insufficiency, hypertension, hypothyroidism, asthma, COPD, arthritis presents to the emergency department for shortness of breath. The patient was recently discharged from [facility] yesterday at 10 PM where she had a prolonged admission for cardiac evaluation. At that time, patient had a mitral valve replacement. According to the daughter, the patient has been wheezing and short of breath during her hospitalization. However, the patient was discharged yesterday night. Upon arrival to home, patient is noted to be wheezing and dyspneic and EMS was activated. EMS noted the patient to be wheezing and patient was placed on oxygen brought to the ED. As of note, the patient was seen here on June 23 for chest pain. She was admitted to the hospital for congestive heart failure and asthma exacerbation.The patient is diffusely wheezy and short of breath. 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 No: Diabetes Mellitus Additional Medical History: LEFT POPLITEAL DVT - Past Surgical History Past Surgical History: Yes: Tubal Ligation, Valve Replacement - Alcohol/Substance Use Hx Alcohol Use: No - Smoking History Smoking history: Never smoked Have you smoked in the past 12 months: No Aproximately how many cigarettes per day: 0 - Social History ADL: Independent Place of : [facility] History of Recent Travel: No Home Medications - Allergies Allergies/Adverse Reactions: Allergies Allergy/AdvReac Type Severity Reaction Status Date / Time ampicillin [Ampicillin] Allergy Severe Swelling Verified 07/12/17 05:24 codeine [Codeine] Allergy Swelling Verified 07/12/17 05:24 - Home Medications Home Medications: Ambulatory Orders Acetaminophen [Tylenol] 650 mg PO BID 07/12/17 Albuterol 2.5/Ipratropium 0.5 [Duoneb -] 1 neb NEB Q4H 07/12/17 Aspirin [ASA -] 81 mg PO DAILY 07/12/17 Budesonide [Pulmicort Flexhaler] 90 mcg IH BID 07/12/17 Diltiazem HCl [Diltiazem 24Hr Cd] 180 mg PO DAILY 07/12/17 Diltiazem HCl [Diltiazem 24Hr Cd] 240 mg PO DAILY 07/12/17 Famotidine [Pepcid] 20 mg PO DAILY 07/12/17 Furosemide [Lasix] 40 mg PO DAILY 07/12/17 Potassium Chloride 20 meq PO DAILY 07/12/17 Sennosides [Senna] 17.2 mg PO DAILY 07/12/17 Warfarin Sodium 6 mg PO ASDIR 07/12/17 Warfarin Sodium [Coumadin] 4 mg PO ASDIR 07/12/17 Family Disease History - Family Disease History Family Disease History: Diabetes: Father (HTN) Review of Systems - Review of Systems Cardiovascular: reports: Shortness of Breath. denies: Chest Pain Respiratory: reports: Cough, Exercise Intolerance, SOB, SOB on Exertion, Wheezing. denies: Hemoptysis Physical Exam Vital Sings: Vital Signs Temperature 98.4 F 07/12/17 12:50 Pulse Rate 101 H 07/12/17 12:50 Respiratory Rate 22 07/12/17 12:50 Blood Pressure 118/76 07/12/17 12:50 O2 Sat by Pulse Oximetry (%) 98 07/12/17 12:50 Constitutional: Yes: Anxious Eyes: Yes: EOM Intact HENT: Yes: Normocephalic Neck: Yes: Trachea Midline Cardiovascular: Yes: Pulse Irregular, S1, S2 Respiratory: Yes: On Nasal O2, Rales, Rhonchi, Wheezes Gastrointestinal: Yes: Soft, Abdomen, Obese Edema: RLE: 1+ Neurological: Yes: Alert Psychiatric: Yes: Alert Labs: ABG Results ABG pH 7.45 (7.35-7.45) 07/12/17 06:00 ABG pCO2 at Pt Temp 35.1 mmHg (35-45) 07/12/17 06:00 ABG pO2 at Pt Temp 174.0 mmHg (70-100) H* D 07/12/17 06:00 ABG HCO3 24.0 meq/L (22-26) 07/12/17 06:00 ABG O2 Sat (Measured) 99.8 % (90-98.9) H* 07/12/17 06:00 ABG O2 Content 15.0 % vol (15-22) 07/12/17 06:00 ABG Base Excess 0.7 meq/l (-2-2) 07/12/17 06:00 REST REVIEWED Imaging - Results Chest X-ray: Report Reviewed, Image Reviewed EKG: Report Reviewed, Image Reviewed Problem List - Problems (1) COPD (chronic obstructive pulmonary disease) with chronic bronchitis Code(s): J44.9 - CHRONIC OBSTRUCTIVE PULMONARY DISEASE, UNSPECIFIED (2) Acute asthma exacerbation Code(s): J45.901 - UNSPECIFIED ASTHMA WITH (ACUTE) EXACERBATION Qualifiers: (3) Anxiety and depression Code(s): F41.9 - ANXIETY DISORDER, UNSPECIFIED F32.9 - MAJOR DEPRESSIVE DISORDER, SINGLE EPISODE, UNSPECIFIED (4) Mitral valve replaced Code(s): Z95.2 - PRESENCE OF PROSTHETIC HEART VALVE Assessment/Plan LIKELY A/E COPD GIVEN CLINICAL SCENARIO A COMPONENT OF CHF MAY ALSO BE PRESENT MVR RECENT/NL CORONARIES PERMANENT AF H/O VTE HTN/PULMONARY HTN AGREE WITH O2/BRONCHODILATORS A/C, DIURETICS INFLU NEGATIVE/BLOOD CULTURES PENDING WILL FOLLOW Zeferino WALLER MD
[2017-07-12] MEDS: FUROSEMIDE 40 MG/4 ML INJECTABLE VIAL IVPUSH SCH (15:45)
[2017-07-12] MEDS: SENNOSIDES 8.6MG TABLET (FP) PO SCH (15:46)
[2017-07-12] MEDS: POTASSIUM CHLORIDE TABS 20 MEQ TABLET.ER (FP) PO SCH (15:46)
[2017-07-12] MEDS: ASPIRIN 81 MG CHEWABLE TABLETS PO SCH (15:46)
[2017-07-12] MEDS: ACETAMINOPHEN 325 MG TABLET (FP) PO SCH ×2 (15:48→21:00)
[2017-07-12] MEDS: methylPREDNISolone NA SUCC 40 MG/1 ML VIAL IVPB SCH ×2 (17:57→21:00)
[2017-07-12] MEDS ORDERED: WARFARIN NA 2 MG TABLET (UD) PO SCH ×2 (18:00→18:12)
--- NOTE | 2017-07-12 18:06 | HP ---
Admitting History and Physical - Primary Care Physician PCP: Escobar Perez - Admission Chief Complaint: SOB, CHF, S/P MVR History of Present Illness: Patient is a 76 year old female with a significant past medical history of AFib( on coumadin), CHF, mitral insufficiency, hypertension, hypothyroidism, asthma, COPD, and osteoarthritis who presents to the ED with complaints of shortness of breath for 7 hours. Patient reports getting discharged from [facility] yesterday for prolonged admission for cardiac evaluation. As per patient's daughter patient has been has experiencing intermittent episodes of wheezing and SOB during her hospitalization. Patients daughter reports patient continued to wheeze with SOB after returning home. Patients was was admitted to [place] for congestive heart failure and asthma exacerbation. Denies nausea, vomiting. Denies fever, chills. Denies any other symptoms. Allergies: Ampicillin, Codeine. Social history: No smoking. No alcohol. No illicit Drugs. Surgical history: Tubal Ligation PMD: Dr. 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 No: Diabetes Mellitus - Past Surgical History Past Surgical History: Yes: Tubal Ligation, Valve Replacement - Smoking History Smoking history: Never smoked Have you smoked in the past 12 months: No Aproximately how many cigarettes per day: 0 - Alcohol/Substance Use Hx Alcohol Use: No - Social History ADL: Independent History of Recent Travel: No Home Medications - Allergies Allergies/Adverse Reactions: Allergies Allergy/AdvReac Type Severity Reaction Status Date / Time ampicillin [Ampicillin] Allergy Severe Swelling Verified 07/12/17 05:24 codeine [Codeine] Allergy Swelling Verified 07/12/17 05:24 - Home Medications Home Medications: Ambulatory Orders Acetaminophen [Tylenol] 650 mg PO BID 07/12/17 Albuterol 2.5/Ipratropium 0.5 [Duoneb -] 1 neb NEB Q4H 07/12/17 Aspirin [ASA -] 81 mg PO DAILY 07/12/17 Budesonide [Pulmicort Flexhaler] 90 mcg IH BID 07/12/17 Diltiazem HCl [Diltiazem 24Hr Cd] 180 mg PO DAILY 07/12/17 Diltiazem HCl [Diltiazem 24Hr Cd] 240 mg PO DAILY 07/12/17 Famotidine [Pepcid] 20 mg PO DAILY 07/12/17 Furosemide [Lasix] 40 mg PO DAILY 07/12/17 Potassium Chloride 20 meq PO DAILY 07/12/17 Sennosides [Senna] 17.2 mg PO DAILY 07/12/17 Warfarin Sodium 6 mg PO ASDIR 07/12/17 Warfarin Sodium [Coumadin] 4 mg PO ASDIR 07/12/17 Family Disease History - Family Disease History Family Disease History: Diabetes: Father (HTN) Review of Systems - Review of Systems Constitutional: reports: Weakness Eyes: reports: No Symptoms HENT: reports: No Symptoms Neck: reports: No Symptoms Cardiovascular: reports: Other (light headedness) Respiratory: reports: No Symptoms Gastrointestinal: reports: No Symptoms Genitourinary: reports: Incontinence Breasts: reports: No Symptoms Reported Musculoskeletal: reports: No Symptoms Integumentary: reports: No Symptoms Neurological: reports: Weakness Endocrine: reports: No Symptoms Hematology/Lymphatic: reports: No Symptoms Psychiatric: reports: No Symptoms Physical Examination Vital Signs: Vital Signs Temperature 98.9 F 07/12/17 17:46 Pulse Rate 85 07/12/17 17:46 Respiratory Rate 85 H 07/12/17 17:46 Blood Pressure 114/58 07/12/17 17:46 O2 Sat by Pulse Oximetry (%) 98 07/12/17 12:50 Problem List - Problems (1) CHF (congestive heart failure) Assessment/Plan: -on furosemide 40 mg IV daily -seen by cardiology Code(s): I50.9 - HEART FAILURE, UNSPECIFIED Qualifiers: (2) COPD (chronic obstructive pulmonary disease) Assessment/Plan: -seen by Pulmonary -IV steroids -neb txs -nasal o2 Code(s): J44.9 - CHRONIC OBSTRUCTIVE PULMONARY DISEASE, UNSPECIFIED (3) S/P MVR (mitral valve replacement) Assessment/Plan: -seen by cardiology -Echo pending -on AC, change warfarin dosage, INR goal 2.5-3.5 Code(s): Z95.2 - PRESENCE OF PROSTHETIC HEART VALVE (4) Shortness of breath Assessment/Plan: -nasal o2 -IV steroids -neb tx -seen by Pulmonary -ABG Code(s): R06.02 - SHORTNESS OF BREATH Assessment/Plan see problem list
[2017-07-12] MEDS ORDERED: WARFARIN NA 2 MG TABLET (UD) PO ONE (18:10)
[2017-07-12] MEDS ORDERED: WARFARIN NA 3 MG TABLET PO SCH (18:30)
[2017-07-12 20:49] LABS: ARTERIAL BLD GAS O2 SATURATION 98.8 % (90-98.9); ARTERIAL BLOOD GAS BASE EXCESS 0.9 meq/l (-2-2); ARTERIAL BLOOD GAS HCO3 24.3 meq/L (22-26); ARTERIAL BLOOD GAS pH 7.45 (7.35-7.45)
[2017-07-12 20:50] LABS: ALLENS TEST POSITIVE; ART PUNCT SITE RIGHT RADIAL; LPM/O2% 4L; PT. ON O2? YES; TYPE OF O2 NASAL
[2017-07-13] MEDS: ALBUTEROL SO4 2.5/IPRATROPIUM 0.5 INH SOL 3 ML VIAL.NEB. NEB SCH ×6 (01:20→22:46)
[2017-07-13] MEDS: methylPREDNISolone NA SUCC 40 MG/1 ML VIAL IVPB SCH ×3 (02:10→18:11)
--- NOTE | 2017-07-13 06:59 | PN ---
Progress Note, Physician Chief Complaint: feeling better today History of Present Illness: TELE: AF average rate 80 - Current Medication List Current Medications: Active Medications Acetaminophen (Tylenol -) 650 mg PO BID [facility] Last Admin: 07/12/17 21:00 Dose: 650 mg Albuterol/Ipratropium (Duoneb -) 1 amp NEB Q4H [facility] Last Admin: 07/13/17 05:50 Dose: 1 amp Aspirin (Asa -) 81 mg PO DAILY [facility] Last Admin: 07/12/17 15:46 Dose: 81 mg Budesonide (Pulmicort 0.25 Mg Nebulizer -) 1 amp NEB BID [facility] Last Admin: 07/12/17 22:12 Dose: 1 amp Diltiazem HCl (Cardizem Cd -) 180 mg PO DAILY [facility] Last Admin: 07/12/17 09:35 Dose: 180 mg Furosemide (Lasix Injection -) 40 mg IVPUSH DAILY [facility] Last Admin: 07/12/17 15:45 Dose: 40 mg Methylprednisolone Sodium Succinate (Solu-Medrol -) 40 mg IVPB Q6H-IV [facility] Last Admin: 07/13/17 02:10 Dose: 40 mg Potassium Chloride (K-Dur -) 20 meq PO DAILY [facility] Last Admin: 07/12/17 15:46 Dose: 20 meq Ranitidine HCl (Zantac -) 150 mg PO DAILY [facility] Last Admin: 07/12/17 09:35 Dose: 150 mg Senna (Senna -) 1 tab PO DAILY [facility] Last Admin: 07/12/17 15:46 Dose: 1 tab Warfarin Sodium (Coumadin -) 4 mg PO MoWeFr@1800 [facility] Warfarin Sodium (Coumadin -) 6 mg PO SuTuThSa@1800 [facility] - Objective Vital Signs: Vital Signs Temperature 97.8 F 07/13/17 06:00 Pulse Rate 83 07/13/17 06:00 Respiratory Rate 18 07/13/17 06:00 Blood Pressure 121/78 07/13/17 06:00 O2 Sat by Pulse Oximetry (%) 96 07/12/17 21:00 Cardiovascular: Yes: Pulse Irregular Respiratory: Yes: Other (improved wheezing) Gastrointestinal: Yes: Soft, Abdomen, Obese Edema: No Neurological: Yes: Alert ...Motor Strength: WNL Labs: INR, PTT INR 2.18 (0.82-1.09) H 07/12/17 06:00 Laboratory Tests 07/13/17 07:30 WBC 14.2 H Plt Count 343 - ....Imaging EKG: Image Reviewed Assessment/Plan IMP: Acute on chronic diastolic CHF, mild S/P Mechanical MVR, 2 weeks ago Permanent AF Chronic COPD with mild exacerbation REC: Agree w/ IV Lasix, daily BMP. Telemetry Echo to assess prosthetic MVR, r/o pericardial effusion. Steroid taper per pulmonary INR goal 2.5-3.5, check INR today. If INR < 2.5, would start UFH gtts as bridge (MVR/AF)
[2017-07-13 08:16] LABS: BASOPHIL 0.2 % (0-2.0); MCH 30.5 pg (25.7-33.7); MEAN CELL VOLUME 92.6 fl (80-96); MEAN PLT VOLUME 8.1 fl (7.5-11.1); NEUTROPHILS 93.4 % (42.8-82.8); PLATELET COUNT 343 K/MM3 (134-434); RDW 15.2 % (11.6-15.6); WHITE BLOOD COUNT 14.2 K/mm3 (4.0-10.0)
[2017-07-13 08:33] LABS: INR 2.86 (0.82-1.09); PROTHROMBIN TIME (PATIENT) 32.1 SEC (9.98-11.88)
[2017-07-13 08:40] LABS: ALBUMIN 2.8 g/dl (3.4-5.0); ALK PHOS 74 U/L (45-117); ANION GAP 9 (8-16); BILIRUBIN,TOTAL 0.6 mg/dL (0.2-1.0); CALCIUM 8.2 mg/dL (8.5-10.1); CO2 25 mmol/L (21-32); CREATININE 0.9 mg/dL (0.55-1.02); GLUCOSE,RANDOM 154 mg/dL (74-106); MAGNESIUM 2.5 mg/dL (1.8-2.4); SGOT/AST 16 U/L (15-37); SGPT/ALT 15 U/L (12-78); TOT PROT 6.1 g/dl (6.4-8.2)
[2017-07-13] MEDS: ACETAMINOPHEN 325 MG TABLET (FP) PO SCH ×2 (09:23→21:03)
[2017-07-13] MEDS: RANITIDINE HCL 150 MG TABLET (FP) PO SCH (09:23)
[2017-07-13] MEDS: POTASSIUM CHLORIDE TABS 20 MEQ TABLET.ER (FP) PO SCH (09:23)
[2017-07-13] MEDS: ASPIRIN 81 MG CHEWABLE TABLETS PO SCH (09:23)
[2017-07-13] MEDS: FUROSEMIDE 40 MG/4 ML INJECTABLE VIAL IVPUSH SCH (09:23)
[2017-07-13] MEDS: SENNOSIDES 8.6MG TABLET (FP) PO SCH (09:23)
[2017-07-13] MEDS: BUDESONIDE 0.25 MG/2ML INH SUSP VIAL NEB SCH ×2 (10:00→22:45)
--- NOTE | 2017-07-13 10:25 | PN ---
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
--- NOTE | 2017-07-13 13:16 | PN ---
Progress Note, Physician Chief Complaint: SOB, Mitral valve replacement History of Present Illness: feels better today, in bed on nasal O2 neb tx seen by pulmonary and cardiology - Current Medication List Current Medications: Active Medications Acetaminophen (Tylenol -) 650 mg PO BID [facility] Last Admin: 07/13/17 09:23 Dose: 650 mg Albuterol/Ipratropium (Duoneb -) 1 amp NEB Q4H [facility] Last Admin: 07/13/17 10:00 Dose: 1 amp Aspirin (Asa -) 81 mg PO DAILY [facility] Last Admin: 07/13/17 09:23 Dose: 81 mg Budesonide (Pulmicort 0.25 Mg Nebulizer -) 1 amp NEB BID [facility] Last Admin: 07/13/17 10:00 Dose: 1 amp Diltiazem HCl (Cardizem Cd -) 180 mg PO DAILY [facility] Last Admin: 07/13/17 09:23 Dose: 180 mg Furosemide (Lasix Injection -) 40 mg IVPUSH DAILY [facility] Last Admin: 07/13/17 09:23 Dose: 40 mg Guaifenesin (Diabetic Tussin Dm -) 5 ml PO Q4H PRN PRN Reason: COUGH Methylprednisolone Sodium Succinate (Solu-Medrol -) 40 mg IVPB Q8H-IV [facility] Potassium Chloride (K-Dur -) 20 meq PO DAILY [facility] Last Admin: 07/13/17 09:23 Dose: 20 meq Ranitidine HCl (Zantac -) 150 mg PO DAILY [facility] Last Admin: 07/13/17 09:23 Dose: 150 mg Senna (Senna -) 1 tab PO DAILY [facility] Last Admin: 07/13/17 09:23 Dose: 1 tab Warfarin Sodium (Coumadin -) 4 mg PO MoWeFr@1800 [facility] Warfarin Sodium (Coumadin -) 6 mg PO SuTuThSa@1800 [facility] - Objective Vital Signs: Vital Signs Temperature 97.8 F 07/13/17 10:00 Pulse Rate 87 07/13/17 10:00 Respiratory Rate 19 07/13/17 10:00 Blood Pressure 117/69 07/13/17 10:00 O2 Sat by Pulse Oximetry (%) 98 07/13/17 09:00 Constitutional: Yes: Well Nourished, No Distress, Calm Cardiovascular: Yes: Pulse Irregular Respiratory: Yes: Regular, Cough, Wheezes (generalized) Edema: No Peripheral Pulses WNL: Yes Neurological: Yes: Alert, Oriented Psychiatric: Yes: Alert, Oriented Labs: CBC, BMP 07/13/17 07:30 07/13/17 07:30 INR, PTT INR 2.86 (0.82-1.09) H D 07/13/17 06:00 Problem List - Problems (1) CHF (congestive heart failure) Assessment/Plan: -on furosemide 40 mg IV daily -seen by cardiology Code(s): I50.9 - HEART FAILURE, UNSPECIFIED Qualifiers: (2) COPD (chronic obstructive pulmonary disease) Assessment/Plan: -seen by Pulmonary -IV steroids -neb txs -nasal o2 Code(s): J44.9 - CHRONIC OBSTRUCTIVE PULMONARY DISEASE, UNSPECIFIED (3) S/P MVR (mitral valve replacement) Assessment/Plan: -seen by cardiology -Echo pending -on AC, change warfarin dosage, INR goal 2.5-3.5 Code(s): Z95.2 - PRESENCE OF PROSTHETIC HEART VALVE (4) Shortness of breath Assessment/Plan: -nasal o2 -IV steroids -neb tx -seen by Pulmonary -ABG nl Code(s): R06.02 - SHORTNESS OF BREATH Assessment/Plan see problem list
[2017-07-13] MEDS: CALCIUM CARBONATE 650 MG TABLET PO SCH (15:44)
[2017-07-13] MEDS: WARFARIN NA 3 MG TABLET PO SCH (18:11)
[2017-07-13] MEDS: guaiFENesin/D-M SUGAR-FREE/ACLHOL-FREE 118 ML BOTTLE PO PRN (21:05)
[2017-07-13] MEDS ORDERED: PT OWN MED DRAWER 7, Y5N ONE (22:36)
--- NOTE | 2017-07-13 23:00 | CONSULT ---
Consult Consult Specialty:: endocrine Referred by:: lin escobar np Reason for Consultation:: diabetes mellitus - History of Present Illness Chief Complaint: difficulty breathing History of Present Illness: 76 year old female with a significant past medical history of AFib(on coumadin) , CHF, mitral insufficiency, hypertension, hypothyroidism, asthma, COPD, and osteoarthritis who presents to the ED with complaints of shortness of breath for 7 hours. Patient reports getting discharged from [facility] yesterday for prolonged admission for cardiac evaluation. 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 No: Diabetes Mellitus Additional Medical History: LEFT POPLITEAL DVT - Past Surgical History Past Surgical History: Yes: Tubal Ligation, Valve Replacement - Alcohol/Substance Use Hx Alcohol Use: No - Smoking History Smoking history: Never smoked Have you smoked in the past 12 months: No Aproximately how many cigarettes per day: 0 - Social History ADL: Independent History of Recent Travel: No Home Medications - Allergies Allergies/Adverse Reactions: Allergies Allergy/AdvReac Type Severity Reaction Status Date / Time ampicillin [Ampicillin] Allergy Severe Swelling Verified 07/12/17 05:24 codeine [Codeine] Allergy Swelling Verified 07/12/17 05:24 - Home Medications Home Medications: Ambulatory Orders Acetaminophen [Tylenol] 650 mg PO BID 07/12/17 Albuterol 2.5/Ipratropium 0.5 [Duoneb -] 1 neb NEB Q4H 07/12/17 Aspirin [ASA -] 81 mg PO DAILY 07/12/17 Budesonide [Pulmicort Flexhaler] 90 mcg IH BID 07/12/17 Diltiazem HCl [Diltiazem 24Hr Cd] 180 mg PO DAILY 07/12/17 Diltiazem HCl [Diltiazem 24Hr Cd] 240 mg PO DAILY 07/12/17 Famotidine [Pepcid] 20 mg PO DAILY 07/12/17 Furosemide [Lasix] 40 mg PO DAILY 07/12/17 Potassium Chloride 20 meq PO DAILY 07/12/17 Sennosides [Senna] 17.2 mg PO DAILY 07/12/17 Warfarin Sodium 6 mg PO ASDIR 07/12/17 Warfarin Sodium [Coumadin] 4 mg PO ASDIR 07/12/17 Family Disease History - Family Disease History Family Disease History: Diabetes: Father (HTN) Review of Systems - Review of Systems Constitutional: reports: Lethargy, Weakness Eyes: reports: No Symptoms HENT: reports: Throat Pain Neck: reports: Decreased ROM Cardiovascular: reports: Palpitations, Shortness of Breath Respiratory: reports: Cough, Exercise Intolerance, SOB, SOB on Exertion Gastrointestinal: reports: Indigestion Genitourinary: reports: No Symptoms Breasts: reports: No Symptoms Reported Musculoskeletal: reports: Joint Pain, Muscle Weakness Integumentary: reports: No Symptoms Neurological: reports: Unsteady Gait, Weakness Endocrine: reports: No Symptoms Hematology/Lymphatic: reports: No Symptoms Physical Exam Vital Signs: Vital Signs Temperature 98.5 F 07/13/17 18:00 Pulse Rate 87 07/13/17 18:00 Respiratory Rate 18 07/13/17 18:00 Blood Pressure 127/74 07/13/17 18:00 O2 Sat by Pulse Oximetry (%) 98 07/13/17 09:00 Constitutional: Yes: Anxious Eyes: Yes: EOM Intact HENT: Yes: Normocephalic Neck: Yes: Trachea Midline, Thyromegaly Cardiovascular: Yes: Tachycardia, Murmur Respiratory: Yes: On Nasal O2, Orthopnea, SOB, Tachypnea, Wheezes Gastrointestinal: Yes: Normal Bowel Sounds ...Rectal Exam: Yes: Deferred Renal/: Yes: WNL Breast(s): Yes: WNL Musculoskeletal: Yes: WNL Extremities: Yes: WNL Edema: No Peripheral Pulses WNL: Yes Labs: CBC, BMP 07/13/17 07:30 07/13/17 07:30 Problem List - Problems (1) CHF (congestive heart failure) Code(s): I50.9 - HEART FAILURE, UNSPECIFIED Qualifiers: (2) COPD (chronic obstructive pulmonary disease) with chronic bronchitis Code(s): J44.9 - CHRONIC OBSTRUCTIVE PULMONARY DISEASE, UNSPECIFIED (3) Mitral valve replaced Code(s): Z95.2 - PRESENCE OF PROSTHETIC HEART VALVE (4) S/P MVR (mitral valve replacement) Code(s): Z95.2 - PRESENCE OF PROSTHETIC HEART VALVE (5) Acute asthma exacerbation Code(s): J45.901 - UNSPECIFIED ASTHMA WITH (ACUTE) EXACERBATION Qualifiers: (6) Acute exacerbation of CHF (congestive heart failure) Code(s): I50.9 - HEART FAILURE, UNSPECIFIED Qualifiers: Congestive heart failure type: diastolic Qualified Code(s): I50.33 - Acute on chronic diastolic (congestive) heart failure; I50.33 - Acute on chronic diastolic (congestive) heart failure; I50.33 - Acute on chronic diastolic (congestive) heart failure; I50.33 - Acute on chronic diastolic ( congestive) heart failure Assessment/Plan Current Active Problems Asthma attack (Acute) CHF (congestive heart failure) (Acute) COPD (chronic obstructive pulmonary disease) with chronic bronchitis (Acute) Mitral valve replaced (Acute) S/P MVR (mitral valve replacement) (Acute) diabetes mellitus stress related steroid sensitive thyroiditis margie Abnormal Lab Results 07/13/17 07/13/17 07/13/17 06:00 07:30 07:30 WBC 14.2 H RBC 3.34 L Hgb 10.2 L Hct 30.9 L Neutrophils % 93.4 H D Lymphocytes % 4.2 L D Monocytes % 2.2 L PT with INR 32.10 H INR 2.86 H D Random Glucose 154 H D Calcium 8.2 L Magnesium 2.5 H B-Natriuretic Peptide 1080.04 H Total Protein 6.1 L Albumin 2.8 L Laboratory Results - last 24 hr 07/13/17 07/13/17 07/13/17 06:00 07:30 07:30 WBC 14.2 H RBC 3.34 L Hgb 10.2 L Hct 30.9 L MCV 92.6 MCH 30.5 MCHC 33.0 RDW 15.2 Plt Count 343 MPV 8.1 Neutrophils % 93.4 H D Lymphocytes % 4.2 L D Monocytes % 2.2 L Eosinophils % 0.0 D Basophils % 0.2 PT with INR 32.10 H INR 2.86 H D Sodium 138 Potassium 4.7 Chloride 104 Carbon Dioxide 25 Anion Gap 9 BUN 17 Creatinine 0.9 D Creat Clearance w eGFR > 60 Random Glucose 154 H D Calcium 8.2 L Magnesium 2.5 H Total Bilirubin 0.6 D AST 16 ALT 15 Alkaline Phosphatase 74 B-Natriuretic Peptide 1080.04 H Total Protein 6.1 L Albumin 2.8 L plan: bgm qid novolog scale check hba1c ckeck tsh free t4 Current Medications Generic Name Dose Route Start Last Admin Trade Name Freq PRN Reason Stop Dose Admin Acetaminophen 650 mg 07/12/17 10:00 07/13/17 21:03 Tylenol - PO 650 mg BID BLESSING Administration Albuterol/Ipratropium 1 amp 07/12/17 09:00 07/13/17 22:46 Duoneb - NEB 1 amp Q4H [facility] Administration Aspirin 81 mg 07/12/17 10:00 07/13/17 09:23 Asa - PO 81 mg DAILY [facility] Administration Budesonide 1 amp 07/12/17 11:00 07/13/17 22:45 Pulmicort 0.25 Mg Nebulizer - NEB 1 amp BID [facility] Administration Calcium Carbonate 650 mg 07/13/17 14:15 07/13/17 15:44 Calcium Carbonate - PO 650 mg DAILY [facility] Administration Diltiazem HCl 180 mg 07/12/17 10:00 07/13/17 09:23 Cardizem Cd - PO 180 mg DAILY [facility] Administration Furosemide 40 mg 07/14/17 10:00 Lasix - PO DAILY [facility] Guaifenesin 5 ml 07/13/17 09:54 07/13/17 21:05 Diabetic Tussin Dm - PO 5 ml Q4H PRN Administration COUGH Methylprednisolone Sodium Succinate 40 mg 07/13/17 18:00 07/13/17 18:11 Solu-Medrol - IVPB 40 mg Q8H-IV [facility] Administration Potassium Chloride 20 meq 07/12/17 10:00 07/13/17 09:23 K-Dur - PO 20 meq DAILY [facility] Administration Ranitidine HCl 150 mg 07/12/17 10:00 07/13/17 09:23 Zantac - PO 150 mg DAILY [facility] Administration Senna 1 tab 07/12/17 10:00 07/13/17 09:23 Senna - PO 1 tab DAILY [facility] Administration Warfarin Sodium 4 mg 07/14/17 18:00 Coumadin - PO MoWeFr@1800 [facility] Warfarin Sodium 6 mg 07/13/17 18:00 07/13/17 18:11 Coumadin - PO 6 mg SuTuThSa@1800 BL[facility] Administration
[2017-07-14] MEDS: methylPREDNISolone NA SUCC 40 MG/1 ML VIAL IVPB SCH ×3 (01:04→18:16)
[2017-07-14] MEDS ORDERED: PT OWN MED DRAWER 7, Y5N ONE ×3 (01:04→22:38)
[2017-07-14] MEDS: guaiFENesin/D-M SUGAR-FREE/ACLHOL-FREE 118 ML BOTTLE PO PRN ×3 (01:05→22:30)
[2017-07-14] MEDS: ALBUTEROL SO4 2.5/IPRATROPIUM 0.5 INH SOL 3 ML VIAL.NEB. NEB SCH ×6 (01:30→22:57)
[2017-07-14] MEDS: ACETAMINOPHEN 325 MG TABLET (FP) PO PRN ×3 (04:11→22:30)
[2017-07-14] MEDS: INSULIN SLIDING SCALE (NOVOLOG) 1 VIAL SQ SCH ×4 (06:26→21:24)
[2017-07-14 07:26] LABS: BASOPHIL 0.7 % (0-2.0); MCH 30.1 pg (25.7-33.7); MCHC 32.5 g/dl (32.0-36.0); MEAN CELL VOLUME 92.6 fl (80-96); NEUTROPHILS 94.1 % (42.8-82.8); PLATELET COUNT 342 K/MM3 (134-434); RDW 15.7 % (11.6-15.6); WHITE BLOOD COUNT 16.2 K/mm3 (4.0-10.0)
[2017-07-14 08:04] LABS: ALBUMIN 2.7 g/dl (3.4-5.0); ANION GAP 7 (8-16); CALCIUM 8.3 mg/dL (8.5-10.1); CO2 27 mmol/L (21-32); CREATININE 0.9 mg/dL (0.55-1.02); GLUCOSE,RANDOM 145 mg/dL (74-106); SGOT/AST 31 U/L (15-37); SGPT/ALT 21 U/L (12-78)
--- NOTE | 2017-07-14 08:04 | PN ---
Progress Note, Physician History of Present Illness: c/o sob--better than on admission - Current Medication List Current Medications: Active Medications Acetaminophen (Tylenol -) 650 mg PO Q6H PRN PRN Reason: PAIN Last Admin: 07/14/17 04:11 Dose: 650 mg Albuterol/Ipratropium (Duoneb -) 1 amp NEB Q4HPO [facility] Last Admin: 07/14/17 06:53 Dose: Not Given Aspirin (Asa -) 81 mg PO DAILY [facility] Last Admin: 07/13/17 09:23 Dose: 81 mg Budesonide (Pulmicort 0.25 Mg Nebulizer -) 1 amp NEB BID [facility] Last Admin: 07/13/17 22:45 Dose: 1 amp Calcium Carbonate (Calcium Carbonate -) 650 mg PO DAILY [facility] Last Admin: 07/13/17 15:44 Dose: 650 mg Diltiazem HCl (Cardizem Cd -) 180 mg PO DAILY [facility] Last Admin: 07/13/17 09:23 Dose: 180 mg Furosemide (Lasix -) 40 mg PO DAILY [facility] Guaifenesin (Diabetic Tussin Dm -) 5 ml PO Q4H PRN PRN Reason: COUGH Last Admin: 07/14/17 01:05 Dose: 5 ml Insulin Aspart (Novolog Vial Sliding Scale -) 1 vial SQ ACHS BLESSING PRN Reason: Protocol Last Admin: 07/14/17 06:26 Dose: Not Given Methylprednisolone Sodium Succinate (Solu-Medrol -) 40 mg IVPB Q8H-IV [facility] Last Admin: 07/14/17 01:04 Dose: 40 mg Potassium Chloride (K-Dur -) 20 meq PO DAILY [facility] Last Admin: 07/13/17 09:23 Dose: 20 meq Ranitidine HCl (Zantac -) 150 mg PO DAILY [facility] Last Admin: 07/13/17 09:23 Dose: 150 mg Senna (Senna -) 1 tab PO DAILY [facility] Last Admin: 07/13/17 09:23 Dose: 1 tab Warfarin Sodium (Coumadin -) 4 mg PO MoWeFr@1800 [facility] Warfarin Sodium (Coumadin -) 6 mg PO SuTuThSa@1800 [facility] Last Admin: 07/13/17 18:11 Dose: 6 mg - Objective Vital Signs: Vital Signs Temperature 98.1 F 07/14/17 06:00 Pulse Rate 93 H 07/14/17 06:00 Respiratory Rate 18 1002/17 06:00 Blood Pressure 128/68 07/14/17 06:00 O2 Sat by Pulse Oximetry (%) 99 07/13/17 21:00 Cardiovascular: Yes: Murmur, S1, S2 Respiratory: Yes: Diminished, Rales Gastrointestinal: Yes: Normal Bowel Sounds, Soft Labs: CBC, BMP 07/14/17 06:00 INR, PTT INR 2.86 (0.82-1.09) H D 07/13/17 06:00 Assessment/Plan - Problems (1) CHF (congestive heart failure) Assessment/Plan: -on furosemide 40 mg IV daily -seen by cardiology -f/u cxr Code(s): I50.9 - HEART FAILURE, UNSPECIFIED Qualifiers: (2) COPD (chronic obstructive pulmonary disease) Assessment/Plan: -seen by Pulmonary -IV steroids -neb txs -nasal o2 Code(s): J44.9 - CHRONIC OBSTRUCTIVE PULMONARY DISEASE, UNSPECIFIED (3) S/P MVR (mitral valve replacement) Assessment/Plan: -seen by cardiology -Echo pending -on AC, change warfarin dosage, INR goal 2.5-3.5 Code(s): Z95.2 - PRESENCE OF PROSTHETIC HEART VALVE (4) Shortness of breath Assessment/Plan: -nasal o2 -IV steroids -neb tx -seen by Pulmonary -ABG nl -f/u cxr -id consult Code(s): R06.02 - SHORTNESS OF BREATH
[2017-07-14 08:14] LABS: ALK PHOS 73 U/L (45-117); BILIRUBIN,TOTAL 0.7 mg/dL (0.2-1.0); FREE T4 1.43 ng/dl (0.76-1.46); THYROID STIMULATING HORMONE 0.28 uIU/ml (0.358-3.74); TOT PROT 5.7 g/dl (6.4-8.2)
[2017-07-14 08:49] LABS: PROTHROMBIN TIME (PATIENT) 45.9 SEC (9.98-11.88)
[2017-07-14 09:11] LABS: INR 4.06 (0.82-1.09)
[2017-07-14] MEDS: BUDESONIDE 0.25 MG/2ML INH SUSP VIAL NEB SCH ×2 (10:20→22:57)
[2017-07-14] MEDS: ASPIRIN 81 MG CHEWABLE TABLETS PO SCH (10:20)
[2017-07-14] MEDS: POTASSIUM CHLORIDE TABS 20 MEQ TABLET.ER (FP) PO SCH (10:21)
[2017-07-14] MEDS: CALCIUM CARBONATE 650 MG TABLET PO SCH (10:21)
[2017-07-14] MEDS: FUROSEMIDE 40 MG TABLET (FP) PO SCH (10:22)
[2017-07-14] MEDS: SENNOSIDES 8.6MG TABLET (FP) PO SCH (10:22)
[2017-07-14] MEDS: RANITIDINE HCL 150 MG TABLET (FP) PO SCH (10:23)
--- NOTE | 2017-07-14 10:28 | PN ---
Progress Note, Physician History of Present Illness: seen and examined today in nad. states she is feeling better today. sob is improving. - Current Medication List Current Medications: Active Medications Acetaminophen (Tylenol -) 650 mg PO Q6H PRN PRN Reason: PAIN Last Admin: 07/14/17 04:11 Dose: 650 mg Albuterol/Ipratropium (Duoneb -) 1 amp NEB Q4HPO [facility] Last Admin: 07/14/17 06:53 Dose: Not Given Aspirin (Asa -) 81 mg PO DAILY [facility] Last Admin: 07/13/17 09:23 Dose: 81 mg Budesonide (Pulmicort 0.25 Mg Nebulizer -) 1 amp NEB BID [facility] Last Admin: 07/13/17 22:45 Dose: 1 amp Calcium Carbonate (Calcium Carbonate -) 650 mg PO DAILY [facility] Last Admin: 07/13/17 15:44 Dose: 650 mg Diltiazem HCl (Cardizem Cd -) 180 mg PO DAILY [facility] Last Admin: 07/13/17 09:23 Dose: 180 mg Furosemide (Lasix -) 40 mg PO DAILY [facility] Guaifenesin (Diabetic Tussin Dm -) 5 ml PO Q4H PRN PRN Reason: COUGH Last Admin: 07/14/17 01:05 Dose: 5 ml Insulin Aspart (Novolog Vial Sliding Scale -) 1 vial SQ ACHS [facility] PRN Reason: Protocol Last Admin: 07/14/17 06:26 Dose: Not Given Methylprednisolone Sodium Succinate (Solu-Medrol -) 40 mg IVPB Q8H-IV [facility] Last Admin: 07/14/17 01:04 Dose: 40 mg Potassium Chloride (K-Dur -) 20 meq PO DAILY [facility] Last Admin: 07/13/17 09:23 Dose: 20 meq Ranitidine HCl (Zantac -) 150 mg PO DAILY [facility] Last Admin: 07/13/17 09:23 Dose: 150 mg Senna (Senna -) 1 tab PO DAILY [facility] Last Admin: 07/13/17 09:23 Dose: 1 tab Warfarin Sodium (Coumadin -) 4 mg PO MoWeFr@1800 [facility] Warfarin Sodium (Coumadin -) 6 mg PO SuTuThSa@1800 [facility] Last Admin: 07/13/17 18:11 Dose: 6 mg - Objective Vital Signs: Vital Signs Temperature 97.7 F 07/14/17 10:00 Pulse Rate 86 07/14/17 10:14 Respiratory Rate 19 07/14/17 10:00 Blood Pressure 117/59 07/14/17 10:00 O2 Sat by Pulse Oximetry (%) 98 07/14/17 10:14 Constitutional: Yes: No Distress, Calm Eyes: Yes: Conjunctiva Clear, EOM Intact HENT: Yes: Atraumatic, Normocephalic Neck: Yes: Supple, Trachea Midline Cardiovascular: Yes: Pulse Irregular, Murmur, S1, S2, Other (mechanical mvr heard). No: Regular Rate and Rhythm, Bradycardia, Tachycardia, Bruit, JVD, Gallop, Rub, S3, S4, Varicosities Respiratory: Yes: Regular, Diminished, On Nasal O2, Rhonchi. No: Rales, SOB, Wheezes Gastrointestinal: Yes: Normal Bowel Sounds, Soft. No: Distention, Tenderness Edema: No Peripheral Pulses: Left Doralis Pedis: 2+, Right Dorsalis Pedis: 2+ Neurological: Yes: Alert, Oriented Psychiatric: Yes: Alert, Oriented Labs: CBC, BMP 07/14/17 06:00 07/14/17 06:00 INR, PTT INR 4.06 (0.82-1.09) H* D 07/14/17 08:15 - ....Imaging Chest X-ray: Report Reviewed, Image Reviewed EKG: Report Reviewed, Image Reviewed Other: Report Reviewed, Image Reviewed (tele-AFib, HR adequately controlled, PVCs) Assessment/Plan IMP: Acute on chronic diastolic CHF, mild S/P Mechanical MVR, 2 weeks ago Permanent AF Chronic COPD with mild exacerbation REC: SOB improving Overall euvolemic and bun/creat trending up, Lasix transitioned to po HR is adequately controlled, cont cardizem F/up Echo to assess prosthetic MVR, r/o pericardial effusion. Steroids as per pulmonary INR goal 2.5-3.5, supratherapeutic today Hold coumadin tonight and resume when INR 2.5-3.5 for mech MVR and Afib
--- NOTE | 2017-07-14 12:39 | PN ---
Progress Note (short form) - Note Progress Note: ID consult dictated imp/reccd recent admission to [facility] for MVR-done 07/01 discharged home end june- readmitted here with SOB and wheezing which she had had intermittently while at [facility] admitted 07/12 seen by cardiology and pulmonary- felt to have volume overload and diuresed by cardiology seen by pulmonary and steroids added for COPD exacerbation now asked to see her for possible pneumonia she is feeling better since admission has had no fevers CXRAY is abnormal with probable left effusion and cardiomegaly doubt pneumonia but given abnormal portalble cxray would repeat PA and LATERAL CXRAY Most c/w CHF, volume overload suspect leukocytosis secondary to steroids blood cultures are negative s/p MVR COPD/Pulmonary HTN AFIB Problem List - Problems (1) Acute exacerbation of CHF (congestive heart failure) Code(s): I50.9 - HEART FAILURE, UNSPECIFIED Qualifiers: Congestive heart failure type: diastolic Qualified Code(s): I50.33 - Acute on chronic diastolic (congestive) heart failure; I50.33 - Acute on chronic diastolic (congestive) heart failure; I50.33 - Acute on chronic diastolic (congestive) heart failure; I50.33 - Acute on chronic diastolic ( congestive) heart failure (2) COPD exacerbation Code(s): J44.1 - CHRONIC OBSTRUCTIVE PULMONARY DISEASE W (ACUTE) EXACERBATION (3) S/P MVR (mitral valve replacement) Code(s): Z95.2 - PRESENCE OF PROSTHETIC HEART VALVE
--- NOTE | 2017-07-14 14:48 | PN ---
Progress Note, Physician History of Present Illness: pulmonary alert,feeling better,less dyspneic,-cp - Current Medication List Current Medications: Active Medications Acetaminophen (Tylenol -) 650 mg PO Q6H PRN PRN Reason: PAIN Last Admin: 07/14/17 10:23 Dose: 650 mg Albuterol/Ipratropium (Duoneb -) 1 amp NEB Q4HPO [facility] Last Admin: 07/14/17 10:20 Dose: 1 amp Aspirin (Asa -) 81 mg PO DAILY [facility] Last Admin: 07/14/17 10:20 Dose: 81 mg Budesonide (Pulmicort 0.25 Mg Nebulizer -) 1 amp NEB BID [facility] Last Admin: 07/14/17 10:20 Dose: 1 amp Calcium Carbonate (Calcium Carbonate -) 650 mg PO DAILY [facility] Last Admin: 07/14/17 10:21 Dose: 650 mg Diltiazem HCl (Cardizem Cd -) 180 mg PO DAILY [facility] Last Admin: 07/14/17 10:21 Dose: 180 mg Furosemide (Lasix -) 40 mg PO DAILY [facility] Last Admin: 07/14/17 10:22 Dose: 40 mg Guaifenesin (Diabetic Tussin Dm -) 5 ml PO Q4H PRN PRN Reason: COUGH Last Admin: 07/14/17 10:25 Dose: 5 ml Insulin Aspart (Novolog Vial Sliding Scale -) 1 vial SQ ACHS BLESSING PRN Reason: Protocol Last Admin: 07/14/17 11:48 Dose: Not Given Methylprednisolone Sodium Succinate (Solu-Medrol -) 40 mg IVPB Q8H-IV [facility] Last Admin: 07/14/17 10:23 Dose: 40 mg Potassium Chloride (K-Dur -) 20 meq PO DAILY [facility] Last Admin: 07/14/17 10:21 Dose: 20 meq Ranitidine HCl (Zantac -) 150 mg PO DAILY [facility] Last Admin: 07/14/17 10:23 Dose: 150 mg Senna (Senna -) 1 tab PO DAILY [facility] Last Admin: 07/14/17 10:22 Dose: 1 tab Warfarin Sodium (Coumadin -) 4 mg PO MoWeFr@1800 [facility] Warfarin Sodium (Coumadin -) 6 mg PO SuTuThSa@1800 [facility] Last Admin: 07/13/17 18:11 Dose: 6 mg - Objective Vital Signs: Vital Signs Temperature 97.7 F 07/14/17 10:00 Pulse Rate 86 07/14/17 10:14 Respiratory Rate 19 07/14/17 10:00 Blood Pressure 117/59 07/14/17 10:00 O2 Sat by Pulse Oximetry (%) 98 07/14/17 10:14 Constitutional: Yes: Well Nourished, Calm Eyes: Yes: WNL HENT: Yes: WNL Neck: Yes: WNL Cardiovascular: Yes: Pulse Irregular, S2 Respiratory: Yes: Wheezes (scacttered mello wheezes) Gastrointestinal: Yes: Normal Bowel Sounds, Soft Extremities: Yes: WNL Edema: No Labs: CBC, BMP 07/14/17 06:00 07/14/17 06:00 INR, PTT INR 4.06 (0.82-1.09) H* D 07/14/17 08:15 Assessment/Plan IMP COPD /ASTHMA EXACERBATION CHF MVR RECENT/NL CORONARIES PERMANENT AF H/O VTE HTN/PULMONARY HTN AGREE WITH O2/ BRONCHODILATORS A/C, DIURETICS STEROIDS DR YE Problem List - Problems (1) COPD (chronic obstructive pulmonary disease) with chronic bronchitis Code(s): J44.9 - CHRONIC OBSTRUCTIVE PULMONARY DISEASE, UNSPECIFIED (2) Acute asthma exacerbation Code(s): J45.901 - UNSPECIFIED ASTHMA WITH (ACUTE) EXACERBATION Qualifiers: (3) Anxiety and depression Code(s): F41.9 - ANXIETY DISORDER, UNSPECIFIED F32.9 - MAJOR DEPRESSIVE DISORDER, SINGLE EPISODE, UNSPECIFIED (4) Mitral valve replaced Code(s): Z95.2 - PRESENCE OF PROSTHETIC HEART VALVE
--- NOTE | 2017-07-15 00:27 | CONS ---
DATE OF CONSULTATION: DATE OF DICTATION: 07/14/2017 INFECTIOUS DISEASE CONSULTATION REQUESTING PHYSICIAN: Escobar Perez M.D. CONSULTING PHYSICIAN: Karla Edmond M.D. HISTORY OF PRESENT ILLNESS: This is a 76-year-old woman who was admitted to the hospital on the after discharge on the from [facility]. She had shortness of breath and wheezing. No fevers, chills, nausea, or vomiting . [facility] for the fact that she on the had a mechanical valve replacement . She was seen by pulmonary and cardiology. She was felt to be in heart failure and had a COPD exacerbation. She was treated with diuretics and with prednisone. I am asked to see her for possible pneumonia. PAST MEDICAL HISTORY: Notable for atrial fibrillation, heart failure, mitral regurgitation, hypertension, hypothyroidism, asthma, COPD, and osteoarthritis. SURGICAL HISTORY: Notable for the recent mitral valve replacement on the at [facility], and remote history of tubal ligation. FAMILY HISTORY: Notable for diabetes and hypertension. SOCIAL HISTORY: She lives at home. There is no history of any alcohol or substance use. REVIEW OF SYSTEMS: She denies fevers, chills, nausea, vomiting. She notes incisional pain at the sternal wound. She has no otherwise chest pain or abdominal pain. Her wheezing has stopped. Her shortness of breath has improved. She is allergic to AMPICILLIN and CODEINE. Her AMPICILLIN allergy is manifested by swelling. MEDICATIONS AT HOME: Include acetaminophen, DuoNeb, aspirin, Pulmicort, diltiazem, Pepcid, Lasix, potassium, senna, and warfarin . As well she has a past medical history of pulmonary hypertension. She has had no fevers since admission. PHYSICAL EXAMINATION: Vital signs: Her current temperature is 97.7, pulse 88, blood pressure 117/59, respiratory rate 19. She is saturating 99% on room air. General: She is a well appearing woman who is sitting up out of bed in her chair. HEENT: Normocephalic. Eyes are anicteric. Neck: Supple. Lungs: Diminished breath sounds at the bases. Heart: Regular rate and rhythm. Chest: Sternal wound is without any erythema or drainage, it is dry. Abdomen: Soft, nontender. Extremities: Without edema. LABORATORY: White count is 16.2, hemoglobin 9.9, platelets 342, INR 4, BUN and creatinine are 27 and 0.9. Urinalysis is negative. Blood and urine cultures done on admission are negative. Influenza screen is negative as well. Chest x-ray reveals cardiomegaly with a question of a sternal sutures with mitral valve replacement and there appears to be a left retrocardiac density. IMPRESSION: 1. In summary, this is a 77-year-old woman admitted on the with shortness of breath and wheezing that she had had intermittently during [facility] was notable for mitral valve replacement done on the . She has improved on steroids and diuretics. Her chest x-ray is abnormal with probable left effusion and cardiomegaly. I doubt she has pneumonia, but given the abnormal portable chest x-ray we would repeat a PA and lateral. She has been up and ambulating without any difficulty. I suspect the leukocytosis is secondary to steroids and her blood cultures are negative. 2. Status post recent mitral valve replacement. 3. Chronic obstructive pulmonary disease exacerbation, pulmonary hypertension. 4. History of atrial fibrillation. Jennifer [id number]
[2017-07-15] MEDS: methylPREDNISolone NA SUCC 40 MG/1 ML VIAL IVPB SCH ×3 (01:21→17:52)
[2017-07-15] MEDS: ALBUTEROL SO4 2.5/IPRATROPIUM 0.5 INH SOL 3 ML VIAL.NEB. NEB SCH ×6 (02:22→21:45)
[2017-07-15] MEDS: INSULIN SLIDING SCALE (NOVOLOG) 1 VIAL SQ SCH ×4 (06:18→21:33)
[2017-07-15] MEDS ORDERED: PT OWN MED DRAWER 7, Y5N ONE ×2 (06:31→13:01)
--- NOTE | 2017-07-15 07:16 | PN ---
Progress Note, Physician Chief Complaint: had CT chest done Feels better TELE: AF, rates 90-115 - Current Medication List Current Medications: Active Medications Acetaminophen (Tylenol -) 650 mg PO Q6H PRN PRN Reason: PAIN Last Admin: 07/14/17 22:30 Dose: 650 mg Albuterol/Ipratropium (Duoneb -) 1 amp NEB Q4HPO [facility] Last Admin: 07/15/17 06:22 Dose: 1 amp Aspirin (Asa -) 81 mg PO DAILY [facility] Last Admin: 07/14/17 10:20 Dose: 81 mg Budesonide (Pulmicort 0.25 Mg Nebulizer -) 1 amp NEB BID [facility] Last Admin: 07/14/17 22:57 Dose: 1 amp Calcium Carbonate (Calcium Carbonate -) 650 mg PO DAILY [facility] Last Admin: 07/14/17 10:21 Dose: 650 mg Diltiazem HCl (Cardizem Cd -) 180 mg PO DAILY [facility] Last Admin: 07/14/17 10:21 Dose: 180 mg Furosemide (Lasix -) 40 mg PO DAILY [facility] Last Admin: 07/14/17 10:22 Dose: 40 mg Guaifenesin (Diabetic Tussin Dm -) 5 ml PO Q4H PRN PRN Reason: COUGH Last Admin: 07/14/17 22:30 Dose: 5 ml Insulin Aspart (Novolog Vial Sliding Scale -) 1 vial SQ ACHS [facility]ESS[facility] PRN Reason: Protocol Last Admin: 07/15/17 06:18 Dose: Not Given Methylprednisolone Sodium Succinate (Solu-Medrol -) 40 mg IVPB Q8H-IV [facility] Last Admin: 07/15/17 01:21 Dose: 40 mg Potassium Chloride (K-Dur -) 20 meq PO DAILY [facility] Last Admin: 07/14/17 10:21 Dose: 20 meq Ranitidine HCl (Zantac -) 150 mg PO DAILY [facility] Last Admin: 07/14/17 10:23 Dose: 150 mg Senna (Senna -) 1 tab PO DAILY [facility] Last Admin: 07/14/17 10:22 Dose: 1 tab Warfarin Sodium (Coumadin -) 4 mg PO MoWeFr@1800 [facility] Warfarin Sodium (Coumadin -) 6 mg PO SuTuThSa@1800 [facility] Last Admin: 07/13/17 18:11 Dose: 6 mg - Objective Vital Signs: Vital Signs Temperature 97.5 F L 07/15/17 06:06 Pulse Rate 79 07/15/17 06:06 Respiratory Rate 18 07/15/17 06:06 Blood Pressure 139/85 07/15/17 06:06 O2 Sat by Pulse Oximetry (%) 98 07/14/17 21:00 Constitutional: Yes: Calm Cardiovascular: Yes: Pulse Irregular Respiratory: Yes: Other (bilateral rhonchi) Gastrointestinal: Yes: Soft Edema: No Neurological: Yes: Alert Labs: INR, PTT INR 4.06 (0.82-1.09) H* D 07/14/17 08:15 Laboratory Tests 07/15/17 07/15/17 07/15/17 05:30 05:30 05:30 WBC 11.0 H D Hgb 10.1 L Plt Count 341 PT with INR 52.00 H INR 4.58 H* Potassium 5.1 Creatinine 0.8 Total Bilirubin 0.5 D AST 37 ALT 27 D Alkaline Phosphatase 77 Albumin 2.9 L - ....Imaging EKG: Image Reviewed Assessment/Plan IMP: Acute on chronic diastolic CHF, mild S/P Mechanical MVR, 2 weeks ago Permanent AF Chronic COPD with mild exacerbation REC: SOB improving, f/u Chest CT Overall euvolemic and bun/creat trending up, Lasix transitioned to po HR is adequately controlled, cont cardizem Echo shows nl prosthetic valve function. Steroids as per pulmonary INR goal 2.5-3.5, supratherapeutic today, will hold coumadin.
[2017-07-15 07:26] LABS: BASOPHIL 0.4 % (0-2.0); MCH 31.2 pg (25.7-33.7); MCHC 33.7 g/dl (32.0-36.0); MEAN CELL VOLUME 92.6 fl (80-96); MEAN PLT VOLUME 8.5 fl (7.5-11.1); NEUTROPHILS 92.9 % (42.8-82.8); PLATELET COUNT 341 K/MM3 (134-434); RDW 15.8 % (11.6-15.6)
[2017-07-15 07:30] LABS: ALBUMIN 2.9 g/dl (3.4-5.0); ALK PHOS 77 U/L (45-117); ANION GAP 10 (8-16); BILIRUBIN,TOTAL 0.5 mg/dL (0.2-1.0); CALCIUM 8.4 mg/dL (8.5-10.1); CO2 25 mmol/L (21-32); CREATININE 0.8 mg/dL (0.55-1.02); GLUCOSE,RANDOM 170 mg/dL (74-106); SGOT/AST 37 U/L (15-37); SGPT/ALT 27 U/L (12-78); TOT PROT 5.9 g/dl (6.4-8.2)
--- NOTE | 2017-07-15 07:44 | PN ---
Progress Note, Physician History of Present Illness: less sob--better than on admission sitting in chair - Current Medication List Current Medications: Active Medications Acetaminophen (Tylenol -) 650 mg PO Q6H PRN PRN Reason: PAIN Last Admin: 07/14/17 22:30 Dose: 650 mg Albuterol/Ipratropium (Duoneb -) 1 amp NEB Q4HPO [facility] Last Admin: 07/15/17 06:22 Dose: 1 amp Aspirin (Asa -) 81 mg PO DAILY [facility] Last Admin: 07/14/17 10:20 Dose: 81 mg Budesonide (Pulmicort 0.25 Mg Nebulizer -) 1 amp NEB BID [facility] Last Admin: 07/14/17 22:57 Dose: 1 amp Calcium Carbonate (Calcium Carbonate -) 650 mg PO DAILY [facility] Last Admin: 07/14/17 10:21 Dose: 650 mg Diltiazem HCl (Cardizem Cd -) 180 mg PO DAILY [facility] Last Admin: 07/14/17 10:21 Dose: 180 mg Furosemide (Lasix -) 40 mg PO DAILY [facility] Last Admin: 07/14/17 10:22 Dose: 40 mg Guaifenesin (Diabetic Tussin Dm -) 5 ml PO Q4H PRN PRN Reason: COUGH Last Admin: 07/14/17 22:30 Dose: 5 ml Insulin Aspart (Novolog Vial Sliding Scale -) 1 vial SQ ACHS BLESSING PRN Reason: Protocol Last Admin: 07/15/17 06:18 Dose: Not Given Methylprednisolone Sodium Succinate (Solu-Medrol -) 40 mg IVPB Q8H-IV [facility] Last Admin: 07/15/17 01:21 Dose: 40 mg Potassium Chloride (K-Dur -) 20 meq PO DAILY [facility] Last Admin: 07/14/17 10:21 Dose: 20 meq Ranitidine HCl (Zantac -) 150 mg PO DAILY [facility] Last Admin: 07/14/17 10:23 Dose: 150 mg Senna (Senna -) 1 tab PO DAILY [facility] Last Admin: 07/14/17 10:22 Dose: 1 tab Warfarin Sodium (Coumadin -) 4 mg PO MoWeFr@1800 [facility] Warfarin Sodium (Coumadin -) 6 mg PO SuTuThSa@1800 [facility] Last Admin: 07/13/17 18:11 Dose: 6 mg - Objective Vital Signs: Vital Signs Temperature 97.5 F L 07/15/17 06:06 Pulse Rate 79 07/15/17 06:06 Respiratory Rate 18 07/15/17 06:06 Blood Pressure 139/85 07/15/17 06:06 O2 Sat by Pulse Oximetry (%) 98 07/14/17 21:00 Cardiovascular: Yes: Murmur, S1, S2 Respiratory: Yes: Rales (at the bases) Gastrointestinal: Yes: Normal Bowel Sounds, Soft Edema: LLE: Trace, RLE: Trace Labs: INR, PTT INR 4.06 (0.82-1.09) H* D 07/14/17 08:15 Assessment/Plan - Problems (1) CHF (congestive heart failure) Assessment/Plan: -on furosemide 40 mg IV daily -seen by cardiology -f/u cxr noted--id consult appreciated Code(s): I50.9 - HEART FAILURE, UNSPECIFIED Qualifiers: (2) COPD (chronic obstructive pulmonary disease) Assessment/Plan: -seen by Pulmonary -IV steroids -neb txs -nasal o2 Code(s): J44.9 - CHRONIC OBSTRUCTIVE PULMONARY DISEASE, UNSPECIFIED (3) S/P MVR (mitral valve replacement) Assessment/Plan: -seen by cardiology -Echo pending -on AC, change warfarin dosage, INR goal 2.5-3.5 Code(s): Z95.2 - PRESENCE OF PROSTHETIC HEART VALVE (4) Shortness of breath Assessment/Plan: -nasal o2 -IV steroids -neb tx -seen by Pulmonary -ABG nl -f/u cxr noted -id consult Code(s): R06.02 - SHORTNESS OF BREATH
[2017-07-15 08:07] LABS: INR 4.58 (0.82-1.09)
[2017-07-15] MEDS: FUROSEMIDE 40 MG TABLET (FP) PO SCH (10:12)
[2017-07-15] MEDS: SENNOSIDES 8.6MG TABLET (FP) PO SCH (10:12)
[2017-07-15] MEDS: POTASSIUM CHLORIDE TABS 20 MEQ TABLET.ER (FP) PO SCH (10:12)
[2017-07-15] MEDS: ASPIRIN 81 MG CHEWABLE TABLETS PO SCH (10:12)
[2017-07-15] MEDS: RANITIDINE HCL 150 MG TABLET (FP) PO SCH (10:12)
[2017-07-15] MEDS: CALCIUM CARBONATE 650 MG TABLET PO SCH (10:13)
[2017-07-15] MEDS: BUDESONIDE 0.25 MG/2ML INH SUSP VIAL NEB SCH ×2 (10:20→21:50)
--- NOTE | 2017-07-15 10:20 | PN ---
Progress Note, Physician Chief Complaint: SOB, Mitral valve replacement History of Present Illness: feels better today, in bed on nasal O2 neb tx seen by pulmonary and cardiology - Current Medication List Current Medications: Active Medications Acetaminophen (Tylenol -) 650 mg PO Q6H PRN PRN Reason: PAIN Last Admin: 07/14/17 22:30 Dose: 650 mg Albuterol/Ipratropium (Duoneb -) 1 amp NEB Q4HPO [facility] Last Admin: 07/15/17 06:22 Dose: 1 amp Aspirin (Asa -) 81 mg PO DAILY [facility] Last Admin: 07/14/17 10:20 Dose: 81 mg Budesonide (Pulmicort 0.25 Mg Nebulizer -) 1 amp NEB BID [facility] Last Admin: 07/14/17 22:57 Dose: 1 amp Calcium Carbonate (Calcium Carbonate -) 650 mg PO DAILY [facility] Last Admin: 07/14/17 10:21 Dose: 650 mg Diltiazem HCl (Cardizem Cd -) 180 mg PO DAILY [facility] Last Admin: 07/14/17 10:21 Dose: 180 mg Furosemide (Lasix -) 40 mg PO DAILY [facility] Last Admin: 07/14/17 10:22 Dose: 40 mg Guaifenesin (Diabetic Tussin Dm -) 5 ml PO Q4H PRN PRN Reason: COUGH Last Admin: 07/14/17 22:30 Dose: 5 ml Insulin Aspart (Novolog Vial Sliding Scale -) 1 vial SQ ACHS [facility] PRN Reason: Protocol Last Admin: 07/15/17 06:18 Dose: Not Given Methylprednisolone Sodium Succinate (Solu-Medrol -) 40 mg IVPB Q8H-IV [facility] Last Admin: 07/15/17 01:21 Dose: 40 mg Potassium Chloride (K-Dur -) 20 meq PO DAILY [facility] Last Admin: 07/14/17 10:21 Dose: 20 meq Ranitidine HCl (Zantac -) 150 mg PO DAILY [facility] Last Admin: 07/14/17 10:23 Dose: 150 mg Senna (Senna -) 1 tab PO DAILY [facility] Last Admin: 07/14/17 10:22 Dose: 1 tab Warfarin Sodium (Coumadin -) 4 mg PO MoWeFr@1800 [facility] Warfarin Sodium (Coumadin -) 6 mg PO SuTuThSa@1800 [facility] Last Admin: 07/13/17 18:11 Dose: 6 mg - Objective Vital Signs: Vital Signs Temperature 97.5 F L 07/15/17 06:06 Pulse Rate 79 07/15/17 06:06 Respiratory Rate 18 07/15/17 06:06 Blood Pressure 139/85 07/15/17 06:06 O2 Sat by Pulse Oximetry (%) 98 07/14/17 21:00 Constitutional: Yes: Well Nourished, No Distress, Calm Cardiovascular: Yes: Regular Rate and Rhythm Respiratory: Yes: Regular, Wheezes (RUL) Extremities: Yes: WNL Edema: No Peripheral Pulses WNL: Yes Neurological: Yes: Alert, Oriented Psychiatric: Yes: Alert, Oriented Labs: CBC, BMP 07/15/17 05:30 07/15/17 05:30 INR, PTT INR 4.58 (0.82-1.09) H* 07/15/17 05:30 Problem List - Problems (1) CHF (congestive heart failure) Assessment/Plan: -on furosemide 40 mg IV daily -seen by cardiology Code(s): I50.9 - HEART FAILURE, UNSPECIFIED Qualifiers: (2) COPD (chronic obstructive pulmonary disease) Assessment/Plan: -seen by Pulmonary -IV steroids -neb txs -nasal o2 Code(s): J44.9 - CHRONIC OBSTRUCTIVE PULMONARY DISEASE, UNSPECIFIED (3) S/P MVR (mitral valve replacement) Assessment/Plan: -seen by cardiology -Echo pending -Warfarin on hold for INR>3.5 -repeat INR in AM Code(s): Z95.2 - PRESENCE OF PROSTHETIC HEART VALVE (4) Shortness of breath Assessment/Plan: -Improved -nasal o2 -IV steroids -neb tx -seen by Pulmonary -ABG nl Code(s): R06.02 - SHORTNESS OF BREATH Assessment/Plan see problem list
[2017-07-15] MEDS: guaiFENesin/D-M SUGAR-FREE/ACLHOL-FREE 118 ML BOTTLE PO PRN (13:02)
--- NOTE | 2017-07-15 13:14 | PN ---
Progress Note (short form) - Note Progress Note: PULMONARY Breathing about the same as yesterday. Still with dry cough and wheezing. CT chest done this AM showing LLL mass like opacity which was not present in February. Last Vital Signs Temp Pulse Resp BP Pulse Ox 98.2 F 82 18 136/68 99 07/15/17 10:00 07/15/17 10:30 07/15/17 10:00 07/15/17 10:00 07/15/17 10:30 Gen: NAD at rest Heart: RRR Lung: scattered rhonchi, wheezes Abd: soft, nontender Ext: no edema CBC, BMP 07/15/17 05:30 07/15/17 05:30 Active Medications Acetaminophen (Tylenol -) 650 mg PO Q6H PRN PRN Reason: PAIN Last Admin: 07/14/17 22:30 Dose: 650 mg Albuterol/Ipratropium (Duoneb -) 1 amp NEB Q4HPO [facility] Last Admin: 07/15/17 10:20 Dose: 1 amp Aspirin (Asa -) 81 mg PO DAILY [facility] Last Admin: 07/15/17 10:12 Dose: 81 mg Budesonide (Pulmicort 0.25 Mg Nebulizer -) 1 amp NEB BID [facility] Last Admin: 07/15/17 10:20 Dose: 1 amp Calcium Carbonate (Calcium Carbonate -) 650 mg PO DAILY [facility] Last Admin: 07/15/17 10:13 Dose: 650 mg Diltiazem HCl (Cardizem Cd -) 180 mg PO DAILY [facility] Last Admin: 07/15/17 10:12 Dose: 180 mg Furosemide (Lasix -) 40 mg PO DAILY [facility] Last Admin: 07/15/17 10:12 Dose: 40 mg Guaifenesin (Diabetic Tussin Dm -) 5 ml PO Q4H PRN PRN Reason: COUGH Last Admin: 07/15/17 13:02 Dose: 5 ml Insulin Aspart (Novolog Vial Sliding Scale -) 1 vial SQ ACHS [facility]ESS[facility] PRN Reason: Protocol Last Admin: 07/15/17 11:22 Dose: Not Given Methylprednisolone Sodium Succinate (Solu-Medrol -) 40 mg IVPB Q8H-IV [facility] Last Admin: 07/15/17 10:12 Dose: 40 mg Potassium Chloride (K-Dur -) 20 meq PO DAILY [facility] Last Admin: 07/15/17 10:12 Dose: 20 meq Ranitidine HCl (Zantac -) 150 mg PO DAILY [facility] Last Admin: 07/15/17 10:12 Dose: 150 mg Senna (Senna -) 1 tab PO DAILY [facility] Last Admin: 07/15/17 10:12 Dose: 1 tab Warfarin Sodium (Coumadin -) 4 mg PO MoWeFr@1800 [facility] Warfarin Sodium (Coumadin -) 6 mg PO SuTuThSa@1800 [facility] Last Admin: 07/13/17 18:11 Dose: 6 mg A/P Acute Asthma/COPD Exacerbation Atrial Fibrillation Acute on Chronic Diastolic Heart Failure h/o VTE Pulmonary HTN - continue medrol at current dose - inhaled bronchodilators - continue anticoagulation - lasix - will need outpt f/u of chest imaging, likely focal atelectasis given recent negative scan in May
--- NOTE | 2017-07-15 14:14 | CONS ---
PHYSICAL MEDICINE REHABILITATION CONSULTATION DATE OF CONSULTATION: 07/15/2017 REFERRING PHYSICIAN: Escobar Perez MD DATE OF ADMISSION: 07/12/2017 HISTORY OF PRESENT ILLNESS: Patient is a 77-year-old woman with extensive past medical history including atrial fibrillation anticoagulated on Coumadin, mitral insufficiency status post recent mitral valve replacement, and underlying COPD and asthma, who was admitted with shortness of breath. Patient evidently had recently been discharged from [facility] with shortness of breath. Patient was diagnosed on admission with COPD exacerbation, congestive heart failure and underwent echocardiogram on July 15 which demonstrated normal left ventricular size and function; right ventricular systolic pressure was elevated; moderate pulmonary hypertension. The patient's blood work demonstrated elevated WBC of 12.7 on admission, hemoglobin 10.6, platelet count 333. INR on admission was therapeutic at 2.18, and chemistry demonstrated decreased total protein at 5.8, albumin 2.8. TSH was low at 0.28. Vitamin B12 was normal. Otherwise, chemistry fairly unremarkable. Low calcium corrects for low albumin. However, currently, the patient's INR is supratherapeutic at 4.58. Her hemoglobin has been stable at 10.1. WBC is fairly stable. Patient states she gets short of breath even sitting up to get out of bed and premorbidly was very limited with her mobility to less than 1/2 a block. She has no complaints of joint arthralgias. Generalized weakness, but no isolated weakness. No complaints of pain. A CT of the chest is pending. PAST MEDICAL AND SURGICAL HISTORY: As above, hypertension, hypothyroidism. Medical records state diffuse osteoarthritis. Also, a history of gastroesophageal reflux disease. SOCIAL HISTORY: Patient lives with her daughter in an elevator-accessible apartment. Premorbidly, she states she was ambulatory without assistive device. Current function: ambulates with assist to the bathroom but with shortness of breath, using oxygen. REVIEW OF SYSTEMS: No headache. No lightheadedness, dizziness. No blurry vision, double vision. No nausea, vomiting, difficulty swallowing, difficulty chewing. No neck or back pain. No other joint arthralgias. No chest pain. Again, she is short of breath, especially with any exertion. No bowel or bladder incontinence or retention. No fever or chills. No numbness or tingling in the upper or lower extremities. No significant weight change. PHYSICAL EXAMINATION: General: An overweight woman seen both sitting and standing, ambulating. HEENT: She is normocephalic and atraumatic. Her extraocular muscles appear intact. Neck: Supple. Extremities: Without any pitting edema or calf tenderness. She does have an ecchymotic area in the right thigh, which apparently is new. No other erythema or ecchymosis in the heels. Neuromuscular: She is awake, alert, oriented x3, seems to have good insight into her medical conditions. Her cranial nerves 2-12 appear grossly intact. She has slight limitation in her [id number]-right shoulder at 110 degrees of flexion in the left shoulder compared to 130 in the right shoulder, but no pain with range of motion. Good elbow flexion and elbow extension. [id number] osteoarthritic changes in the hands which are not limiting. Normal sensation to light touch throughout the upper limbs. At least 4/5 hip girdle strength in the lower extremities. Good knee flexion and extension. Good dorsiflexion and plantar flexion strength. Patient is able to perform bed mobility out of supervision to contact-guard level. Able to stand but she does get short of breath even on oxygen. No osteoarthritic changes in the lower extremities and good joint stability. OVERALL IMPRESSION: 1. Deficits in mobility and activities of daily living, multifactorial. 2. Deconditioning. 3. Congestive heart failure. 4. Chronic obstructive pulmonary disease exacerbation. 5. Mitral insufficiency, possibly status post recent mitral valve replacement. 6. Supratherapeutic INR with ecchymosis to the right thigh. 7. Anemia, stable. 8. Mild leukocytosis. 9. Decreased total protein and albumin, elevated risk for decubitus ulceration due to immobility. 10. Atrial fibrillation. 11. Hypertension. 12. Hypothyroidism. 13. Osteoarthritis, mainly in the hands which is not limiting. PLAN/SUGGESTION: 1. Physical therapy for mobilization including bed mobility, transfers, gait training as appropriate, reconditioning. 2. Cardiopulmonary precautions. 3. Safety and fall precautions. 4. Anticoagulated on Coumadin with supratherapeutic INR. No further DVT prophylaxis is needed. 5. Anemia, stable. Would monitor CBC. 6. Monitor skin for further ecchymosis as well as any erythema or breakdown. 7. Prognosis appears fair but would suggest short-term rehab in a senior living facility for reconditioning prior to going home. Patient seems receptive of this idea. Thank you for this referral. ANJALI ROJAS M.D. SUZANNE/[id number] MTDD
--- NOTE | 2017-07-15 16:11 | PN ---
Progress Note (short form) - Note Progress Note: no complaints OOB in chair left arm/hand swelling noted afebrile Vital Signs Period Temp Pulse Resp BP Sys/Urrutia Pulse Ox Last 24 Hr 97.2 F-98.5 F 79-97 18-20 134-156/63-86 98-99 cor-rrr lungs decreased bs at bases abd soft,nt ext swelling left arm sternal incision dry ct scan with atelectasis noted LLL a/p atelectasis LLL- encourage incentive spirometry s/p MVR 07/01 left arm swelling -will d/w PMD- will order duplex Problem List - Problems (1) Acute exacerbation of CHF (congestive heart failure) Code(s): I50.9 - HEART FAILURE, UNSPECIFIED Qualifiers: Congestive heart failure type: diastolic Qualified Code(s): I50.33 - Acute on chronic diastolic (congestive) heart failure; I50.33 - Acute on chronic diastolic (congestive) heart failure; I50.33 - Acute on chronic diastolic (congestive) heart failure; I50.33 - Acute on chronic diastolic ( congestive) heart failure (2) COPD exacerbation Code(s): J44.1 - CHRONIC OBSTRUCTIVE PULMONARY DISEASE W (ACUTE) EXACERBATION (3) S/P MVR (mitral valve replacement) Code(s): Z95.2 - PRESENCE OF PROSTHETIC HEART VALVE
[2017-07-16] MEDS: methylPREDNISolone NA SUCC 40 MG/1 ML VIAL IVPB SCH ×3 (01:18→17:51)
[2017-07-16] MEDS: guaiFENesin/D-M SUGAR-FREE/ACLHOL-FREE 118 ML BOTTLE PO PRN (01:19)
[2017-07-16] MEDS ORDERED: PT OWN MED DRAWER 7, Y5N ONE ×2 (01:19→22:14)
[2017-07-16] MEDS: ALBUTEROL SO4 2.5/IPRATROPIUM 0.5 INH SOL 3 ML VIAL.NEB. NEB SCH ×3 (02:15→10:15)
[2017-07-16] MEDS: INSULIN SLIDING SCALE (NOVOLOG) 1 VIAL SQ SCH ×4 (06:06→21:17)
--- NOTE | 2017-07-16 07:16 | PN ---
Progress Note, Physician Chief Complaint: Left IJ thrombus History of Present Illness: TELE: AF w average rate around 100bpm - Current Medication List Current Medications: Active Medications Acetaminophen (Tylenol -) 650 mg PO Q6H PRN PRN Reason: PAIN Last Admin: 07/14/17 22:30 Dose: 650 mg Albuterol/Ipratropium (Duoneb -) 1 amp NEB Q4HPO [facility] Last Admin: 07/16/17 05:00 Dose: 1 amp Aspirin (Asa -) 81 mg PO DAILY [facility] Last Admin: 07/15/17 10:12 Dose: 81 mg Budesonide (Pulmicort 0.25 Mg Nebulizer -) 1 amp NEB BID [facility] Last Admin: 07/15/17 21:50 Dose: 1 amp Calcium Carbonate (Calcium Carbonate -) 650 mg PO DAILY [facility] Last Admin: 07/15/17 10:13 Dose: 650 mg Diltiazem HCl (Cardizem Cd -) 180 mg PO DAILY [facility] Last Admin: 07/15/17 10:12 Dose: 180 mg Furosemide (Lasix -) 40 mg PO DAILY [facility] Last Admin: 07/15/17 10:12 Dose: 40 mg Guaifenesin (Diabetic Tussin Dm -) 5 ml PO Q4H PRN PRN Reason: COUGH Last Admin: 07/16/17 01:19 Dose: 5 ml Insulin Aspart (Novolog Vial Sliding Scale -) 1 vial SQ ACHS [facility] PRN Reason: Protocol Last Admin: 07/16/17 06:06 Dose: Not Given Methylprednisolone Sodium Succinate (Solu-Medrol -) 40 mg IVPB Q8H-IV [facility] Last Admin: 07/16/17 01:18 Dose: 40 mg Potassium Chloride (K-Dur -) 20 meq PO DAILY [facility] Last Admin: 07/15/17 10:12 Dose: 20 meq Ranitidine HCl (Zantac -) 150 mg PO DAILY [facility] Last Admin: 07/15/17 10:12 Dose: 150 mg Senna (Senna -) 1 tab PO DAILY [facility] Last Admin: 07/15/17 10:12 Dose: 1 tab Warfarin Sodium (Coumadin -) 4 mg PO MoWeFr@1800 [facility] Warfarin Sodium (Coumadin -) 6 mg PO SuTuThSa@1800 [facility] Last Admin: 07/13/17 18:11 Dose: 6 mg - Objective Vital Signs: Vital Signs Temperature 97.9 F 07/16/17 06:19 Pulse Rate 88 07/16/17 06:19 Respiratory Rate 16 07/16/17 06:19 Blood Pressure 145/90 07/16/17 06:19 O2 Sat by Pulse Oximetry (%) 98 07/15/17 21:00 Constitutional: Yes: No Distress Cardiovascular: Yes: Pulse Irregular Respiratory: Yes: Other (b/l rhonchi, decreased at bases) Gastrointestinal: Yes: Soft Edema: Yes (LUE) Neurological: Yes: Alert, Oriented Labs: CBC, BMP 07/15/17 05:30 07/15/17 05:30 INR, PTT INR 4.58 (0.82-1.09) H* 07/15/17 05:30 Laboratory Tests 07/15/17 07/16/17 05:30 05:35 WBC 11.0 H D Hgb 10.1 L Plt Count 341 INR 4.00 H - ....Imaging EKG: Image Reviewed Assessment/Plan IMP: Acute on chronic diastolic CHF, mild S/P Mechanical MVR, 2 weeks ago Permanent AF Chronic COPD with mild exacerbation L IJ thrombus REC: D/W Dr. Perez- 1. Vascular and Heme Consult- I am not sure we can definitely consider this a coumadin "failure." Need more details from [facility] to see if she had a line there and if she was ever subtherapeutically anticoagulated. 2. Lung exam sounds worse: ?infectious process or fluid. Will await CTA result, may need to be switched back to IV Lasix. 3. For now maintain INR goal 2.5-3.5 (AF, MVR, severe LA dilatation)
[2017-07-16 07:20] LABS: PROTHROMBIN TIME (PATIENT) 45.3 SEC (9.98-11.88)
--- NOTE | 2017-07-16 08:13 | PN ---
Progress Note, Physician History of Present Illness: C/O WORSENING COUGH AND SOB MORE CONGESTED - Current Medication List Current Medications: Active Medications Acetaminophen (Tylenol -) 650 mg PO Q6H PRN PRN Reason: PAIN Last Admin: 07/14/17 22:30 Dose: 650 mg Albuterol/Ipratropium (Duoneb -) 1 amp NEB Q4HPO [facility] Last Admin: 07/16/17 05:00 Dose: 1 amp Aspirin (Asa -) 81 mg PO DAILY [facility] Last Admin: 07/15/17 10:12 Dose: 81 mg Budesonide (Pulmicort 0.25 Mg Nebulizer -) 1 amp NEB BID [facility] Last Admin: 07/15/17 21:50 Dose: 1 amp Calcium Carbonate (Calcium Carbonate -) 650 mg PO DAILY [facility] Last Admin: 07/15/17 10:13 Dose: 650 mg Diltiazem HCl (Cardizem Cd -) 180 mg PO DAILY [facility] Last Admin: 07/15/17 10:12 Dose: 180 mg Furosemide (Lasix -) 40 mg PO DAILY [facility] Last Admin: 07/15/17 10:12 Dose: 40 mg Guaifenesin (Diabetic Tussin Dm -) 5 ml PO Q4H PRN PRN Reason: COUGH Last Admin: 07/16/17 01:19 Dose: 5 ml Insulin Aspart (Novolog Vial Sliding Scale -) 1 vial SQ ACHS [facility] PRN Reason: Protocol Last Admin: 07/16/17 06:06 Dose: Not Given Methylprednisolone Sodium Succinate (Solu-Medrol -) 40 mg IVPB Q8H-IV [facility] Last Admin: 07/16/17 01:18 Dose: 40 mg Potassium Chloride (K-Dur -) 20 meq PO DAILY [facility] Last Admin: 07/15/17 10:12 Dose: 20 meq Ranitidine HCl (Zantac -) 150 mg PO DAILY [facility] Last Admin: 07/15/17 10:12 Dose: 150 mg Senna (Senna -) 1 tab PO DAILY [facility] Last Admin: 07/15/17 10:12 Dose: 1 tab Warfarin Sodium (Coumadin -) 4 mg PO MoWeFr@1800 [facility] Warfarin Sodium (Coumadin -) 6 mg PO SuTuThSa@1800 [facility] Last Admin: 07/13/17 18:11 Dose: 6 mg - Objective Vital Signs: Vital Signs Temperature 97.9 F 07/16/17 06:19 Pulse Rate 88 07/16/17 06:19 Respiratory Rate 16 07/16/17 06:19 Blood Pressure 145/90 07/16/17 06:19 O2 Sat by Pulse Oximetry (%) 98 07/15/17 21:00 Cardiovascular: Yes: Murmur, S1, S2 Respiratory: Yes: Diminished, On Nasal O2, Rhonchi Gastrointestinal: Yes: Normal Bowel Sounds, Soft Edema: LUE: 1+ Labs: CBC, BMP 07/15/17 05:30 07/15/17 05:30 INR, PTT INR 4.00 (0.82-1.09) H 07/16/17 05:35 Problem List - Problems (1) Internal jugular vein thrombosis Assessment/Plan: ON COUMADIN WITH 1NR HIGH--4 NOT SURE IF SHE HAD CATHETER PREVIOUSLY VASCULAR CARDIO AND HEM CONSULT WILL DISCUSS AC Code(s): I82.C19 - ACUTE EMBOLISM AND THROMBOSIS OF UNSP INTERNAL JUGULAR VEIN Assessment/Plan - Problems (1) CHF (congestive heart failure) Assessment/Plan: -on furosemide 40 mg IV daily -seen by cardiology -f/u cxr noted--id consult appreciated Code(s): I50.9 - HEART FAILURE, UNSPECIFIED Qualifiers: (2) COPD (chronic obstructive pulmonary disease) Assessment/Plan: -seen by Pulmonary -IV steroids -neb txs -nasal o2 Code(s): J44.9 - CHRONIC OBSTRUCTIVE PULMONARY DISEASE, UNSPECIFIED (3) S/P MVR (mitral valve replacement) Assessment/Plan: -seen by cardiology -Echo pending -on AC, change warfarin dosage, INR goal 2.5-3.5 Code(s): Z95.2 - PRESENCE OF PROSTHETIC HEART VALVE (4) Shortness of breath Assessment/Plan: -nasal o2 -IV steroids -neb tx -seen by Pulmonary -ABG nl - CT OF CHEST -START ABX -id consult Code(s): R06.02 - SHORTNESS OF BREATH
--- NOTE | 2017-07-16 09:44 | CONSULT ---
Consult Consult Specialty:: hematology/Oncology - History of Present Illness History of Present Illness: Hematology consult for LUE DVT. is a 77 year old female with Afib, CHF, valvular disease , leading to a most recent admission at [facility] and underwent mechanical valve repair. Pts other co-morbidities include hypertension, hypothyroidism, asthma, COPD, arthritis She was admitted with Shortness of breath post discharge from [facility]. During the hospitalization here she was noticed to have hematoma and swelling of the LUE. She "recalls" of having a small IV in the arm and also "possible" in the neck. US studies here reveal that she has Left IJ thrombus. Patient continues to be on coumadin while in house. In regards to her systemic AC, she was on coumadin for a long time for Afib/LAD and also a remote hx of DVT . In the hospital during the last admission there were some values of INR that weren't therapeutic but for most of the admission presently she had been on therapeutic INR. Heme consulted for the newly diagnosed DVT. Chart reviewed in detail. 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 No: Diabetes Mellitus Additional Medical History: LEFT POPLITEAL DVT - Past Surgical History Past Surgical History: Yes: Tubal Ligation, Valve Replacement - Alcohol/Substance Use Hx Alcohol Use: No - Smoking History Smoking history: Never smoked Have you smoked in the past 12 months: No Aproximately how many cigarettes per day: 0 - Social History ADL: Independent History of Recent Travel: No Home Medications - Allergies Allergies/Adverse Reactions: Allergies Allergy/AdvReac Type Severity Reaction Status Date / Time ampicillin [Ampicillin] Allergy Severe Swelling Verified 07/12/17 05:24 codeine [Codeine] Allergy Swelling Verified 07/12/17 05:24 - Home Medications Home Medications: Ambulatory Orders Acetaminophen [Tylenol] 650 mg PO BID 07/12/17 Albuterol 2.5/Ipratropium 0.5 [Duoneb -] 1 neb NEB Q4H 07/12/17 Aspirin [ASA -] 81 mg PO DAILY 07/12/17 Budesonide [Pulmicort Flexhaler] 90 mcg IH BID 07/12/17 Diltiazem HCl [Diltiazem 24Hr Cd] 180 mg PO DAILY 07/12/17 Diltiazem HCl [Diltiazem 24Hr Cd] 240 mg PO DAILY 07/12/17 Famotidine [Pepcid] 20 mg PO DAILY 07/12/17 Furosemide [Lasix] 40 mg PO DAILY 07/12/17 Potassium Chloride 20 meq PO DAILY 07/12/17 Sennosides [Senna] 17.2 mg PO DAILY 07/12/17 Warfarin Sodium 6 mg PO ASDIR 07/12/17 Warfarin Sodium [Coumadin] 4 mg PO ASDIR 07/12/17 Family Disease History - Family Disease History Family Disease History: Diabetes: Father (HTN) Review of Systems - Review of Systems Constitutional: denies: Fever, Lethargy, Loss of Appetite, Night Sweats, Unintentional Wgt. Loss Eyes: denies: Blind Spots, Blurred Vision HENT: denies: Difficult Swallowing, Ear Discharge Neck: denies: Decreased ROM, Lumps Cardiovascular: reports: Shortness of Breath Respiratory: reports: Cough, Exercise Intolerance, Orthopnea, SOB on Exertion, Wheezing Gastrointestinal: denies: Abdominal Pain, Bloating, Constipation, Diarrhea, Nausea, Vomiting Breasts: reports: No Symptoms Reported Integumentary: reports: No Symptoms Neurological: reports: No Symptoms Physical Exam Vital Signs: Vital Signs Temperature 97.9 F 07/16/17 06:19 Pulse Rate 88 07/16/17 06:19 Respiratory Rate 16 07/16/17 06:19 Blood Pressure 145/90 07/16/17 06:19 O2 Sat by Pulse Oximetry (%) 98 07/15/17 21:00 Constitutional: Yes: Calm, Other (in no acute distress , sitting in chair) Eyes: Yes: Conjunctiva Clear HENT: Yes: Atraumatic, Normocephalic Neck: Yes: Supple, Trachea Midline Cardiovascular: Yes: Pulse Irregular Respiratory: Yes: Regular Gastrointestinal: Yes: Normal Bowel Sounds, Soft Breast(s): Yes: Left, Right, Other (no nodules palpated) Extremities: Yes: WNL Edema: No (LUE swollen, +hematoma.) Neurological: Yes: WNL, Alert, Oriented Labs: CBC, BMP 07/15/17 05:30 07/15/17 05:30 Imaging - Results Cat Scan: Report Reviewed Ultrasound: Report Reviewed Assessment/Plan Left IJ Thrombus AFIb MVR mechanical on 07/01 CHF COPD Anemia Taking into her history, the present DVT could likely be a provoked from the possibility of a line being there, though we would need a record from [facility] ( dc papers in chart, but does not mention a hospital course). She has been on coumadin for a while now, and at this time, would continue Coumadin at the present INR goal of 2.5-3.5. Her choices of alternate ac are limited, NOACs not indicated for valvular related problems and alternate could be LMWH. Await vascular consult. Recommend repeat LUE doppler studies in 2-3weeks. 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
[2017-07-16] MEDS ORDERED: LEVOFLOXACIN 500 MG IVPB 100 ML IVPB SCH (10:00)
[2017-07-16] MEDS: RANITIDINE HCL 150 MG TABLET (FP) PO SCH (10:07)
[2017-07-16] MEDS: CALCIUM CARBONATE 650 MG TABLET PO SCH (10:07)
[2017-07-16] MEDS: FUROSEMIDE 40 MG TABLET (FP) PO SCH (10:07)
[2017-07-16] MEDS: SENNOSIDES 8.6MG TABLET (FP) PO SCH (10:07)
[2017-07-16] MEDS: ASPIRIN 81 MG CHEWABLE TABLETS PO SCH (10:07)
[2017-07-16] MEDS: POTASSIUM CHLORIDE TABS 20 MEQ TABLET.ER (FP) PO SCH (10:07)
[2017-07-16] MEDS: BUDESONIDE 0.25 MG/2ML INH SUSP VIAL NEB SCH ×2 (10:15→22:20)
--- NOTE | 2017-07-16 11:41 | PN ---
Progress Note (short form) - Note Progress Note: no complaints OOB in chair left arm/hand swelling noted afebrile duplex with Left IJ thrombosis chest CTA, no PE, LLL atelectasis unchanged Vital Signs Period Temp Pulse Resp BP Sys/[place] Pulse Ox Last 24 Hr 97.2 F-97.9 F 86-98 16-18 129-149/63-94 98-98 cor-rrr lungs decreased bs at bases abd soft,nt ext left arm swelling/ecchymoses forearm and upper arm unchanged sternal wound intact, no erythema or drainage CBC, BMP 07/15/17 05:30 07/15/17 05:30 a/p atelectasis LLL- encourage incentive spirometry- no signs pneumonia, will d/w pulmonary, can d/c levaquin s/p MVR 07/01 left arm swelling -left IJ thrombus- hematology/vascular to evaluate Problem List - Problems (1) Acute exacerbation of CHF (congestive heart failure) Code(s): I50.9 - HEART FAILURE, UNSPECIFIED Qualifiers: Congestive heart failure type: diastolic Qualified Code(s): I50.33 - Acute on chronic diastolic (congestive) heart failure; I50.33 - Acute on chronic diastolic (congestive) heart failure; I50.33 - Acute on chronic diastolic (congestive) heart failure; I50.33 - Acute on chronic diastolic ( congestive) heart failure (2) COPD exacerbation Code(s): J44.1 - CHRONIC OBSTRUCTIVE PULMONARY DISEASE W (ACUTE) EXACERBATION (3) S/P MVR (mitral valve replacement) Code(s): Z95.2 - PRESENCE OF PROSTHETIC HEART VALVE
--- NOTE | 2017-07-16 11:55 | PN ---
Progress Note, Physician History of Present Illness: PULMONARY ALERT,LESS DYSPNEIC. DUPLEX LUE + DVT LEFT INTERNAL JUGULAR THROMBOSIS - Current Medication List Current Medications: Active Medications Acetaminophen (Tylenol -) 650 mg PO Q6H PRN PRN Reason: PAIN Last Admin: 07/14/17 22:30 Dose: 650 mg Albuterol/Ipratropium (Duoneb -) 1 amp NEB Q4HPO [facility] Last Admin: 07/16/17 10:15 Dose: 1 amp Aspirin (Asa -) 81 mg PO DAILY [facility] Last Admin: 07/16/17 10:07 Dose: 81 mg Budesonide (Pulmicort 0.25 Mg Nebulizer -) 1 amp NEB BID [facility] Last Admin: 07/16/17 10:15 Dose: 1 amp Calcium Carbonate (Calcium Carbonate -) 650 mg PO DAILY [facility] Last Admin: 07/16/17 10:07 Dose: 650 mg Diltiazem HCl (Cardizem Cd -) 180 mg PO DAILY [facility] Last Admin: 07/16/17 10:07 Dose: 180 mg Furosemide (Lasix -) 40 mg PO DAILY [facility] Last Admin: 07/16/17 10:07 Dose: 40 mg Guaifenesin (Diabetic Tussin Dm -) 5 ml PO Q4H PRN PRN Reason: COUGH Last Admin: 07/16/17 01:19 Dose: 5 ml Levofloxacin (Levaquin 500 Mg Premixed Ivpb -) 100 mls @ 100 mls/hr IVPB DAILY [facility] Last Admin: 07/16/17 10:06 Dose: 100 mls/hr Insulin Aspart (Novolog Vial Sliding Scale -) 1 vial SQ ACHS [facility] PRN Reason: Protocol Last Admin: 07/16/17 06:06 Dose: Not Given Methylprednisolone Sodium Succinate (Solu-Medrol -) 40 mg IVPB Q8H-IV [facility] Last Admin: 07/16/17 10:07 Dose: 40 mg Potassium Chloride (K-Dur -) 20 meq PO DAILY [facility] Last Admin: 07/16/17 10:07 Dose: 20 meq Ranitidine HCl (Zantac -) 150 mg PO DAILY [facility] Last Admin: 07/16/17 10:07 Dose: 150 mg Senna (Senna -) 1 tab PO DAILY [facility] Last Admin: 07/16/17 10:07 Dose: 1 tab Warfarin Sodium (Coumadin -) 4 mg PO MoWeFr@1800 [facility] Warfarin Sodium (Coumadin -) 6 mg PO SuTuThSa@1800 [facility] Last Admin: 07/13/17 18:11 Dose: 6 mg - Objective Vital Signs: Vital Signs Temperature 97.8 F 07/16/17 10:00 Pulse Rate 86 07/16/17 10:00 Respiratory Rate 18 07/16/17 10:00 Blood Pressure 129/66 07/16/17 10:00 O2 Sat by Pulse Oximetry (%) 98 07/16/17 10:00 Constitutional: Yes: Well Nourished, Calm Eyes: Yes: WNL HENT: Yes: WNL Neck: Yes: WNL Cardiovascular: Yes: Pulse Irregular, S1, S2 Respiratory: Yes: Rhonchi (BILATERAL WHEEZES AND RHONCHI), Wheezes Gastrointestinal: Yes: Normal Bowel Sounds, Soft Extremities: Yes: WNL Edema: No Labs: CBC, BMP 07/15/17 05:30 07/15/17 05:30 INR, PTT INR 4.00 (0.82-1.09) H 07/16/17 05:35 - ....Imaging Cat Scan: Report Reviewed, Image Reviewed Assessment/Plan IMP COPD /ASTHMA EXACERBATION CHF MVR RECENT/NL CORONARIES PERMANENT AF H/O VTE HTN/PULMONARY HTN LLL OPACITY LIKELY PARTIAL ATELECTASIS LLL LEFT IJ PHLEBITIS AGREE WITH O2 BRONCHODILATORS A/C, DIURETICS STEROIDS BRONCHODILATORS CHEST PT MUCOMYST F/U CHEST CT OUTPATIENT F/U CHEST X-RAYS DR YE Problem List - Problems (1) COPD (chronic obstructive pulmonary disease) with chronic bronchitis Code(s): J44.9 - CHRONIC OBSTRUCTIVE PULMONARY DISEASE, UNSPECIFIED (2) Acute asthma exacerbation Code(s): J45.901 - UNSPECIFIED ASTHMA WITH (ACUTE) EXACERBATION Qualifiers: (3) Anxiety and depression Code(s): F41.9 - ANXIETY DISORDER, UNSPECIFIED F32.9 - MAJOR DEPRESSIVE DISORDER, SINGLE EPISODE, UNSPECIFIED (4) Mitral valve replaced Code(s): Z95.2 - PRESENCE OF PROSTHETIC HEART VALVE
--- NOTE | 2017-07-16 13:10 | PN ---
Progress Note (short form) - Note Progress Note: VA[facility] Surgery Pt seen and examined. Doing well. Pt with mechanical valve. Now with left arm SVT in basilic vein with swelling. Pt also has IJ thrombus. No need for any intervention. For the left arm SVT -- pt just needs arm elevation, warm compresses if pt is having pain. For the IJ thrombus -- most likely iatrogenic, pt is already on AC for valve. No other intervention needed. Wiley Rodríguez DO
[2017-07-16] MEDS: WARFARIN NA 2 MG TABLET (UD) PO SCH (17:51)
[2017-07-16] MEDS: ALBUTEROL SO4 0.083% IH SOL 2.5 MG/3 ML VIAL.NEB. NEB SCH ×2 (18:00→23:49)
[2017-07-16] MEDS: ACETYLCYSTEINE 20% 200MG/ML 4 ML VIAL *FOR ORAL / INH USE ONLY NEB SCH ×2 (18:00→23:49)
[2017-07-16] MEDS ORDERED: INSULIN (NOVOLOG) ASPART 100 UNITS/ML 10ML VIAL ONE ×2 (21:15→21:21)
--- NOTE | 2017-07-16 22:45 | PN ---
Progress Note, Physician Chief Complaint: breathing better sitting in chair using spirometer History of Present Illness: chf,improving respiratory parameters,less dyspnea,tolerating dialysis - Current Medication List Current Medications: Active Medications Acetaminophen (Tylenol -) 650 mg PO Q6H PRN PRN Reason: PAIN Last Admin: 07/14/17 22:30 Dose: 650 mg Acetylcysteine (Mucomyst 20 Oral / Inh Use Only*) 200 mg NEB QIDR [facility] Last Admin: 07/16/17 18:00 Dose: 200 mg Albuterol Sulfate (Ventolin 0.083% Nebulizer Soln -) 1 amp NEB QIDR [facility] Last Admin: 07/16/17 18:00 Dose: 1 amp Aspirin (Asa -) 81 mg PO DAILY [facility] Last Admin: 07/16/17 10:07 Dose: 81 mg Budesonide (Pulmicort 0.25 Mg Nebulizer -) 1 amp NEB BID [facility] Last Admin: 07/16/17 22:20 Dose: 1 amp Calcium Carbonate (Calcium Carbonate -) 650 mg PO DAILY [facility] Last Admin: 07/16/17 10:07 Dose: 650 mg Diltiazem HCl (Cardizem Cd -) 180 mg PO DAILY [facility] Last Admin: 07/16/17 10:07 Dose: 180 mg Furosemide (Lasix -) 40 mg PO DAILY [facility] Last Admin: 07/16/17 10:07 Dose: 40 mg Guaifenesin (Diabetic Tussin Dm -) 5 ml PO Q4H PRN PRN Reason: COUGH Last Admin: 07/16/17 01:19 Dose: 5 ml Insulin Aspart (Novolog Vial Sliding Scale -) 1 vial SQ ACHS [facility] PRN Reason: Protocol Last Admin: 07/16/17 21:17 Dose: 2 units Methylprednisolone Sodium Succinate (Solu-Medrol -) 40 mg IVPB Q8H-IV [facility] Last Admin: 07/16/17 17:51 Dose: 40 mg Potassium Chloride (K-Dur -) 20 meq PO DAILY [facility] Last Admin: 07/16/17 10:07 Dose: 20 meq Ranitidine HCl (Zantac -) 150 mg PO DAILY [facility] Last Admin: 07/16/17 10:07 Dose: 150 mg Senna (Senna -) 1 tab PO DAILY [facility] Last Admin: 07/16/17 10:07 Dose: 1 tab Warfarin Sodium (Coumadin -) 4 mg PO MoWeFr@1800 [facility] Last Admin: 07/16/17 17:51 Dose: Not Given Warfarin Sodium (Coumadin -) 6 mg PO SuTuThSa@1800 [facility] Last Admin: 07/13/17 18:11 Dose: 6 mg - Objective Vital Signs: Vital Signs Temperature 97.2 F L 07/16/17 20:27 Pulse Rate 99 H 07/16/17 20:27 Respiratory Rate 20 07/16/17 20:27 Blood Pressure 155/94 07/16/17 20:27 O2 Sat by Pulse Oximetry (%) 98 07/16/17 10:00 Constitutional: Yes: Well Nourished, Anxious Eyes: Yes: EOM Intact HENT: Yes: Normocephalic Neck: Yes: Trachea Midline, Thyromegaly Cardiovascular: Yes: Tachycardia Respiratory: Yes: On Nasal O2, SOB, Tachypnea Gastrointestinal: Yes: Normal Bowel Sounds ...Rectal Exam: Yes: Deferred Genitourinary: Yes: WNL Musculoskeletal: Yes: WNL Extremities: Yes: WNL Edema: No Labs: CBC, BMP 07/15/17 05:30 07/15/17 05:30 INR, PTT INR 4.00 (0.82-1.09) H 07/16/17 05:35 Problem List - Problems (1) CHF (congestive heart failure) Code(s): I50.9 - HEART FAILURE, UNSPECIFIED Qualifiers: (2) COPD (chronic obstructive pulmonary disease) with chronic bronchitis Code(s): J44.9 - CHRONIC OBSTRUCTIVE PULMONARY DISEASE, UNSPECIFIED (3) Mitral valve replaced Code(s): Z95.2 - PRESENCE OF PROSTHETIC HEART VALVE (4) S/P MVR (mitral valve replacement) Code(s): Z95.2 - PRESENCE OF PROSTHETIC HEART VALVE (5) Acute asthma exacerbation Code(s): J45.901 - UNSPECIFIED ASTHMA WITH (ACUTE) EXACERBATION Qualifiers: (6) Acute exacerbation of CHF (congestive heart failure) Code(s): I50.9 - HEART FAILURE, UNSPECIFIED Qualifiers: Congestive heart failure type: diastolic Qualified Code(s): I50.33 - Acute on chronic diastolic (congestive) heart failure; I50.33 - Acute on chronic diastolic (congestive) heart failure; I50.33 - Acute on chronic diastolic (congestive) heart failure; I50.33 - Acute on chronic diastolic ( congestive) heart failure Assessment/Plan Current Active Problems Asthma attack (Acute) CHF (congestive heart failure) (Acute) COPD (chronic obstructive pulmonary disease) with chronic bronchitis (Acute) Internal jugular vein thrombosis (Acute) Mitral valve replaced (Acute) S/P MVR (mitral valve replacement) (Acute) Abnormal Lab Results 07/16/17 05:35 PT with INR 45.30 H INR 4.00 H Laboratory Results - last 24 hr 07/15/17 07/16/17 07/16/17 21:30 05:27 05:35 PT with INR 45.30 H INR 4.00 H POC Glucometer 311 192 07/16/17 07/16/17 07/16/17 12:06 17:09 21:11 PT with INR INR POC Glucometer 223 183 219 plan: continue bgm qid novolog scale levemir 10 units daily if sugar over 150mg/dl
[2017-07-17] MEDS: methylPREDNISolone NA SUCC 40 MG/1 ML VIAL IVPB SCH ×3 (01:26→21:43)
[2017-07-17] MEDS ORDERED: INSULIN (NOVOLOG) ASPART 100 UNITS/ML 10ML VIAL ONE ×2 (06:01→19:56)
[2017-07-17] MEDS: INSULIN DETEMIR 100 UNITS/ML MDV SQ SCH (06:02)
[2017-07-17] MEDS: INSULIN SLIDING SCALE (NOVOLOG) 1 VIAL SQ SCH ×4 (06:03→21:43)
[2017-07-17] MEDS: ACETYLCYSTEINE 20% 200MG/ML 4 ML VIAL *FOR ORAL / INH USE ONLY NEB SCH ×3 (06:25→19:09)
[2017-07-17] MEDS: ALBUTEROL SO4 0.083% IH SOL 2.5 MG/3 ML VIAL.NEB. NEB SCH ×3 (06:25→19:09)
[2017-07-17 09:17] LABS: INR 3.23 (0.82-1.09); PROTHROMBIN TIME (PATIENT) 36.4 SEC (9.98-11.88)
[2017-07-17] MEDS: RANITIDINE HCL 150 MG TABLET (FP) PO SCH (10:18)
[2017-07-17] MEDS: POTASSIUM CHLORIDE TABS 20 MEQ TABLET.ER (FP) PO SCH (10:18)
[2017-07-17] MEDS: FUROSEMIDE 40 MG TABLET (FP) PO SCH (10:18)
[2017-07-17] MEDS: SENNOSIDES 8.6MG TABLET (FP) PO SCH (10:18)
[2017-07-17] MEDS: CALCIUM CARBONATE 650 MG TABLET PO SCH (10:18)
[2017-07-17] MEDS: ASPIRIN 81 MG CHEWABLE TABLETS PO SCH (10:19)
--- NOTE | 2017-07-17 10:20 | PN ---
Progress Note, Physician Chief Complaint: patient in bed says he breathing and cough is slightly better today - Current Medication List Current Medications: Active Medications Acetaminophen (Tylenol -) 650 mg PO Q6H PRN PRN Reason: PAIN Last Admin: 07/14/17 22:30 Dose: 650 mg Acetylcysteine (Mucomyst 20 Oral / Inh Use Only*) 200 mg NEB QIDR [facility] Last Admin: 07/17/17 06:25 Dose: 200 mg Albuterol Sulfate (Ventolin 0.083% Nebulizer Soln -) 1 amp NEB QIDR [facility] Last Admin: 07/17/17 06:25 Dose: 1 amp Aspirin (Asa -) 81 mg PO DAILY [facility] Last Admin: 07/16/17 10:07 Dose: 81 mg Budesonide (Pulmicort 0.25 Mg Nebulizer -) 1 amp NEB BID [facility] Last Admin: 07/16/17 22:20 Dose: 1 amp Calcium Carbonate (Calcium Carbonate -) 650 mg PO DAILY [facility] Last Admin: 07/16/17 10:07 Dose: 650 mg Diltiazem HCl (Cardizem Cd -) 180 mg PO DAILY [facility] Last Admin: 07/16/17 10:07 Dose: 180 mg Furosemide (Lasix -) 40 mg PO DAILY [facility] Last Admin: 07/16/17 10:07 Dose: 40 mg Guaifenesin (Diabetic Tussin Dm -) 5 ml PO Q4H PRN PRN Reason: COUGH Last Admin: 07/16/17 01:19 Dose: 5 ml Insulin Aspart (Novolog Vial Sliding Scale -) 1 vial SQ ACHS [facility] PRN Reason: Protocol Last Admin: 07/17/17 06:03 Dose: Not Given Insulin Detemir (Levemir Vial) 10 units SQ AM [facility] Last Admin: 07/17/17 06:02 Dose: 10 units Methylprednisolone Sodium Succinate (Solu-Medrol -) 40 mg IVPB BID [facility] Potassium Chloride (K-Dur -) 20 meq PO DAILY [facility] Last Admin: 07/16/17 10:07 Dose: 20 meq Ranitidine HCl (Zantac -) 150 mg PO DAILY [facility] Last Admin: 07/16/17 10:07 Dose: 150 mg Senna (Senna -) 1 tab PO DAILY [facility] Last Admin: 07/16/17 10:07 Dose: 1 tab Warfarin Sodium (Coumadin -) 4 mg PO [email or web address] [facility] Last Admin: 07/16/17 17:51 Dose: Not Given Warfarin Sodium (Coumadin -) 6 mg PO SuTuThSa@1800 [facility] Last Admin: 07/13/17 18:11 Dose: 6 mg - Objective Vital Signs: Vital Signs Temperature 97.3 F L 07/17/17 05:00 Pulse Rate 93 H 07/17/17 05:00 Respiratory Rate 16 07/17/17 05:00 Blood Pressure 145/81 07/17/17 05:00 O2 Sat by Pulse Oximetry (%) 100 07/16/17 21:00 Constitutional: Yes: Calm Cardiovascular: Yes: Regular Rate and Rhythm, S1, S2 Respiratory: Yes: Diminished (at bases), On Nasal O2 Gastrointestinal: Yes: Normal Bowel Sounds, Soft Edema: Yes Neurological: Yes: Alert, Oriented Labs: CBC, BMP 07/15/17 05:30 07/15/17 05:30 INR, PTT INR 3.23 (0.82-1.09) H 07/17/17 08:35 Problem List - Problems (1) Internal jugular vein thrombosis Assessment/Plan: seen by vascular surgeon already on AC keep INR 2.5-3.5 Code(s): I82.C19 - ACUTE EMBOLISM AND THROMBOSIS OF UNSP INTERNAL JUGULAR VEIN (2) S/P MVR (mitral valve replacement) Assessment/Plan: done about 3 weeks ago on AC maintain INR 2.5-3.5 Code(s): Z95.2 - PRESENCE OF PROSTHETIC HEART VALVE (3) CHF (congestive heart failure) Assessment/Plan: on po lasix check cmp today on k dur supplements Code(s): I50.9 - HEART FAILURE, UNSPECIFIED Qualifiers: (4) COPD (chronic obstructive pulmonary disease) with chronic bronchitis Assessment/Plan: iv steroids will taper to bid today continue oxygen bronchodilators Code(s): J44.9 - CHRONIC OBSTRUCTIVE PULMONARY DISEASE, UNSPECIFIED (5) Atrial fibrillation Assessment/Plan: permenant afb cardizem and AC Code(s): I48.91 - UNSPECIFIED ATRIAL FIBRILLATION Qualifiers: Atrial fibrillation type: permanent Qualified Code(s): I48.2 - Chronic atrial fibrillation; I48.2 - Chronic atrial fibrillation; I48.2 - Chronic atrial fibrillation; I48.2 - Chronic atrial fibrillation
--- NOTE | 2017-07-17 10:35 | PN ---
Progress Note, Physician History of Present Illness: seen and examined today in nad. states she is feeling better today. sleeping comfortably when i entered the room but when awoken started to wheeze audibly. no overnight events. no new complaints. - Current Medication List Current Medications: Active Medications Acetaminophen (Tylenol -) 650 mg PO Q6H PRN PRN Reason: PAIN Last Admin: 07/14/17 22:30 Dose: 650 mg Acetylcysteine (Mucomyst 20 Oral / Inh Use Only*) 200 mg NEB QIDR [facility] Last Admin: 07/17/17 06:25 Dose: 200 mg Albuterol Sulfate (Ventolin 0.083% Nebulizer Soln -) 1 amp NEB QIDR [facility] Last Admin: 07/17/17 06:25 Dose: 1 amp Aspirin (Asa -) 81 mg PO DAILY [facility] Last Admin: 07/17/17 10:19 Dose: 81 mg Budesonide (Pulmicort 0.25 Mg Nebulizer -) 1 amp NEB BID [facility] Last Admin: 07/16/17 22:20 Dose: 1 amp Calcium Carbonate (Calcium Carbonate -) 650 mg PO DAILY [facility] Last Admin: 07/17/17 10:18 Dose: 650 mg Diltiazem HCl (Cardizem Cd -) 180 mg PO DAILY [facility] Last Admin: 07/17/17 10:18 Dose: 180 mg Furosemide (Lasix -) 40 mg PO DAILY [facility] Last Admin: 07/17/17 10:18 Dose: 40 mg Guaifenesin (Diabetic Tussin Dm -) 5 ml PO Q4H PRN PRN Reason: COUGH Last Admin: 07/16/17 01:19 Dose: 5 ml Insulin Aspart (Novolog Vial Sliding Scale -) 1 vial SQ ACHS [facility] PRN Reason: Protocol Last Admin: 07/17/17 06:03 Dose: Not Given Insulin Detemir (Levemir Vial) 10 units SQ AM [facility] Last Admin: 07/17/17 06:02 Dose: 10 units Methylprednisolone Sodium Succinate (Solu-Medrol -) 40 mg IVPB BID [facility] Potassium Chloride (K-Dur -) 20 meq PO DAILY [facility] Last Admin: 07/17/17 10:18 Dose: 20 meq Ranitidine HCl (Zantac -) 150 mg PO DAILY [facility] Last Admin: 07/17/17 10:18 Dose: 150 mg Senna (Senna -) 1 tab PO DAILY [facility] Last Admin: 07/17/17 10:18 Dose: 1 tab Warfarin Sodium (Coumadin -) 4 mg PO MoWeFr@1800 [facility] Last Admin: 07/16/17 17:51 Dose: Not Given Warfarin Sodium (Coumadin -) 6 mg PO SuTuThSa@1800 [facility] Last Admin: 07/13/17 18:11 Dose: 6 mg - Objective Vital Signs: Vital Signs Temperature 97.3 F L 07/17/17 05:00 Pulse Rate 93 H 07/17/17 05:00 Respiratory Rate 16 07/17/17 05:00 Blood Pressure 145/81 07/17/17 05:00 O2 Sat by Pulse Oximetry (%) 100 07/16/17 21:00 Constitutional: Yes: No Distress, Calm, Obese Eyes: Yes: Conjunctiva Clear, EOM Intact, PERRL HENT: Yes: Atraumatic, Normocephalic Neck: Yes: Supple, Trachea Midline Cardiovascular: Yes: Pulse Irregular, Murmur, S1, S2, Other (MVR heard). No: Regular Rate and Rhythm, Bradycardia, Tachycardia, Bruit, JVD, Gallop, Rub, S3, Varicosities Respiratory: Yes: Regular, Diminished, On Nasal O2, Rhonchi, Wheezes. No: Rales , SOB Gastrointestinal: Yes: Normal Bowel Sounds, Soft. No: Distention, Tenderness Musculoskeletal: Yes: Muscle Weakness Extremities: Yes: WNL Edema: Yes Edema: LUE: Trace Peripheral Pulses WNL: Yes Peripheral Pulses: Left Doralis Pedis: 2+, Right Dorsalis Pedis: 2+ Neurological: Yes: Alert, Oriented Psychiatric: Yes: Alert, Oriented Labs: CBC, BMP 07/15/17 05:30 INR, PTT INR 3.23 (0.82-1.09) H 07/17/17 08:35 - ....Imaging Chest X-ray: Report Reviewed, Image Reviewed EKG: Report Reviewed, Image Reviewed Other: Report Reviewed, Image Reviewed (tele-Afib, HR adequately controlled, PVCs, Vent couplets) Assessment/Plan IMP: Acute on chronic diastolic CHF, mild S/P Mechanical MVR, 2 weeks ago Permanent AF Chronic COPD with exacerbation L IJ thrombus REC: CTA results noted-no pulmonary embolism, no sig change in pleural effusion and atelectasis, no sign of pulm vasc congestion or developing pna Cont po lasix Pulmonary f/up Cont warfarin for goal 2.5-3.5 (Afib, Mechanical MVR) -Hematology input reviewed Vascular input reviewed Afib HR adequately controlled currently, cont current medical regimen
[2017-07-17] MEDS: BUDESONIDE 0.25 MG/2ML INH SUSP VIAL NEB SCH ×2 (10:50→21:52)
[2017-07-17 11:17] LABS: ALK PHOS 83 U/L (45-117); ANION GAP 10 (8-16); BILIRUBIN,TOTAL 0.9 mg/dL (0.2-1.0); CALCIUM 8.3 mg/dL (8.5-10.1); CO2 24 mmol/L (21-32); CREATININE 0.9 mg/dL (0.55-1.02); GLUCOSE,RANDOM 182 mg/dL (74-106); SGOT/AST 34 U/L (15-37); SGPT/ALT 40 U/L (12-78)
[2017-07-17] MEDS ORDERED: PT OWN MED DRAWER 7, Y5N ONE ×2 (11:40→21:47)
--- NOTE | 2017-07-17 12:07 | PN ---
Progress Note (short form) - Note Progress Note: PULMONARY Breathing slowly improving. Still with dry cough and wheezing. Last Vital Signs Temp Pulse Resp BP Pulse Ox 97.6 F 90 18 129/84 100 07/17/17 09:00 07/17/17 09:00 07/17/17 09:00 07/17/17 09:00 07/16/17 21:00 Gen: NAD at rest Heart: RRR Lung: scattered rhonchi, wheezes Abd: soft, nontender Ext: no edema CBC, BMP 07/15/17 05:30 07/17/17 10:26 Active Medications Acetaminophen (Tylenol -) 650 mg PO Q6H PRN PRN Reason: PAIN Last Admin: 07/14/17 22:30 Dose: 650 mg Acetylcysteine (Mucomyst 20 Oral / Inh Use Only*) 200 mg NEB QIDR [facility] Last Admin: 07/17/17 06:25 Dose: 200 mg Albuterol Sulfate (Ventolin 0.083% Nebulizer Soln -) 1 amp NEB QIDR [facility] Last Admin: 07/17/17 06:25 Dose: 1 amp Aspirin (Asa -) 81 mg PO DAILY [facility] Last Admin: 07/17/17 10:19 Dose: 81 mg Budesonide (Pulmicort 0.25 Mg Nebulizer -) 1 amp NEB BID [facility] Last Admin: 07/16/17 22:20 Dose: 1 amp Calcium Carbonate (Calcium Carbonate -) 650 mg PO DAILY [facility] Last Admin: 07/17/17 10:18 Dose: 650 mg Diltiazem HCl (Cardizem Cd -) 180 mg PO DAILY [facility] Last Admin: 07/17/17 10:18 Dose: 180 mg Furosemide (Lasix -) 40 mg PO DAILY [facility] Last Admin: 07/17/17 10:18 Dose: 40 mg Guaifenesin (Diabetic Tussin Dm -) 5 ml PO Q4H PRN PRN Reason: COUGH Last Admin: 07/16/17 01:19 Dose: 5 ml Insulin Aspart (Novolog Vial Sliding Scale -) 1 vial SQ ACHS [facility] PRN Reason: Protocol Last Admin: 07/17/17 11:54 Dose: 2 units Insulin Detemir (Levemir Vial) 10 units SQ AM [facility] Last Admin: 07/17/17 06:02 Dose: 10 units Methylprednisolone Sodium Succinate (Solu-Medrol -) 40 mg IVPB BID [facility] Potassium Chloride (K-Dur -) 20 meq PO DAILY [facility] Last Admin: 07/17/17 10:18 Dose: 20 meq Ranitidine HCl (Zantac -) 150 mg PO DAILY [facility] Last Admin: 07/17/17 10:18 Dose: 150 mg Senna (Senna -) 1 tab PO DAILY [facility] Last Admin: 07/17/17 10:18 Dose: 1 tab Warfarin Sodium (Coumadin -) 4 mg PO [email or web address]@1800 [facility] Last Admin: 07/16/17 17:51 Dose: Not Given Warfarin Sodium (Coumadin -) 6 mg PO SuTuThSa@1800 [facility] Last Admin: 07/13/17 18:11 Dose: 6 mg A/P Acute Asthma/COPD Exacerbation Atrial Fibrillation Acute on Chronic Diastolic Heart Failure h/o VTE Pulmonary HTN - agree with medrol taper - inhaled bronchodilators - continue anticoagulation - lasix - will need outpt f/u of chest imaging, likely focal atelectasis given recent negative scan in February
[2017-07-17] MEDS ORDERED: WARFARIN NA PO ONE (20:15)
--- NOTE | 2017-07-17 21:11 | PN ---
Progress Note (short form) - Note Progress Note: Patient seen and examined Denies any complaints AFVSS Cor: RSR, No murmurs, No gallops Lungs: Clear to P&A Abd: Soft, Normal bowel sounds, No organomegaly Ext:No significant edema Skin: No rashes, Integument intact Abnormal Lab Results 07/17/17 07/17/17 08:35 10:26 PT with INR 36.40 H INR 3.23 H BUN 21 H D Random Glucose 182 H Calcium 8.3 L Total Protein 6.0 L Albumin 3.0 L Active Medications Acetaminophen (Tylenol -) 650 mg PO Q6H PRN PRN Reason: PAIN Last Admin: 07/14/17 22:30 Dose: 650 mg Acetylcysteine (Mucomyst 20 Oral / Inh Use Only*) 200 mg NEB QIDR [facility] Last Admin: 07/17/17 19:09 Dose: 200 mg Albuterol Sulfate (Ventolin 0.083% Nebulizer Soln -) 1 amp NEB QIDR [facility] Last Admin: 07/17/17 19:09 Dose: 1 amp Aspirin (Asa -) 81 mg PO DAILY [facility] Last Admin: 07/17/17 10:19 Dose: 81 mg Budesonide (Pulmicort 0.25 Mg Nebulizer -) 1 amp NEB BID [facility] Last Admin: 07/17/17 21:52 Dose: 1 amp Calcium Carbonate (Calcium Carbonate -) 650 mg PO DAILY [facility] Last Admin: 07/17/17 10:18 Dose: 650 mg Diltiazem HCl (Cardizem Cd -) 180 mg PO DAILY [facility] Last Admin: 07/17/17 10:18 Dose: 180 mg Furosemide (Lasix -) 40 mg PO DAILY [facility] Last Admin: 07/17/17 10:18 Dose: 40 mg Guaifenesin (Diabetic Tussin Dm -) 5 ml PO Q4H PRN PRN Reason: COUGH Last Admin: 07/16/17 01:19 Dose: 5 ml Insulin Aspart (Novolog Vial Sliding Scale -) 1 vial SQ ACHS [facility] PRN Reason: Protocol Last Admin: 07/17/17 21:43 Dose: Not Given Insulin Detemir (Levemir Vial) 10 units SQ AM [facility] Last Admin: 07/17/17 06:02 Dose: 10 units Methylprednisolone Sodium Succinate (Solu-Medrol -) 40 mg IVPB BID [facility]/ Last Admin: 07/17/17 21:43 Dose: 40 mg Potassium Chloride (K-Dur -) 20 meq PO DAILY [facility] Last Admin: 07/17/17 10:18 Dose: 20 meq Ranitidine HCl (Zantac -) 150 mg PO DAILY [facility] Last Admin: 07/17/17 10:18 Dose: 150 mg Senna (Senna -) 1 tab PO DAILY [facility] Last Admin: 07/17/17 10:18 Dose: 1 tab Warfarin Sodium (Coumadin -) 4 mg PO [email or web address] [facility] Last Admin: 07/16/17 17:51 Dose: Not Given Warfarin Sodium (Coumadin -) 6 mg PO [email or web address]@1800 [facility] Last Admin: 07/13/17 18:11 Dose: 6 mg A/P Left IJ Thrombus AFIb MVR mechanical on 07/01 CHF COPD Anemia Taking into her history, the present DVT could likely be a provoked from the possibility of a line being there, though we would need a record from [facility]an Muñoz ( dc papers in chart, but does not mention a hospital course). She has been on coumadin for a while now, and at this time, would continue Coumadin at the present INR goal of 2.5-3.5. Her choices of alternate ac are limited, NOACs not indicated for valvular related problems and alternate could be LMWH. Recommend repeat LUE doppler studies in 2-3weeks. 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
[2017-07-17] MEDS ORDERED: WARFARIN NA 1 MG TABLET (FP) ONE (21:37)
[2017-07-17] MEDS ORDERED: WARFARIN NA 3 MG TABLET ONE (21:37)
--- NOTE | 2017-07-17 23:03 | PN ---
Progress Note, Physician Chief Complaint: improving appetite still high sugars,breathing improved History of Present Illness: chf,copd,sp mv surgery,now on dureticis improved clinically - Current Medication List Current Medications: Active Medications Acetaminophen (Tylenol -) 650 mg PO Q6H PRN PRN Reason: PAIN Last Admin: 07/14/17 22:30 Dose: 650 mg Acetylcysteine (Mucomyst 20 Oral / Inh Use Only*) 200 mg NEB QIDR [facility] Last Admin: 07/17/17 19:09 Dose: 200 mg Albuterol Sulfate (Ventolin 0.083% Nebulizer Soln -) 1 amp NEB QIDR [facility] Last Admin: 07/17/17 19:09 Dose: 1 amp Aspirin (Asa -) 81 mg PO DAILY [facility] Last Admin: 07/17/17 10:19 Dose: 81 mg Budesonide (Pulmicort 0.25 Mg Nebulizer -) 1 amp NEB BID [facility] Last Admin: 07/17/17 21:52 Dose: 1 amp Calcium Carbonate (Calcium Carbonate -) 650 mg PO DAILY [facility] Last Admin: 07/17/17 10:18 Dose: 650 mg Diltiazem HCl (Cardizem Cd -) 180 mg PO DAILY [facility] Last Admin: 07/17/17 10:18 Dose: 180 mg Furosemide (Lasix -) 40 mg PO DAILY [facility] Last Admin: 07/17/17 10:18 Dose: 40 mg Guaifenesin (Diabetic Tussin Dm -) 5 ml PO Q4H PRN PRN Reason: COUGH Last Admin: 07/16/17 01:19 Dose: 5 ml Insulin Aspart (Novolog Vial Sliding Scale -) 1 vial SQ ACHS [facility] PRN Reason: Protocol Last Admin: 07/17/17 21:43 Dose: Not Given Insulin Detemir (Levemir Vial) 10 units SQ AM [facility] Last Admin: 07/17/17 06:02 Dose: 10 units Methylprednisolone Sodium Succinate (Solu-Medrol -) 40 mg IVPB BID [facility] Last Admin: 07/17/17 21:43 Dose: 40 mg Potassium Chloride (K-Dur -) 20 meq PO DAILY [facility] Last Admin: 07/17/17 10:18 Dose: 20 meq Ranitidine HCl (Zantac -) 150 mg PO DAILY [facility] Last Admin: 07/17/17 10:18 Dose: 150 mg Senna (Senna -) 1 tab PO DAILY [facility] Last Admin: 10/05/17 10:18 Dose: 1 tab Warfarin Sodium (Coumadin -) 4 mg PO [email or web address] [facility] Last Admin: 07/16/17 17:51 Dose: Not Given Warfarin Sodium (Coumadin -) 6 mg PO [email or web address] [facility] Last Admin: 07/13/17 18:11 Dose: 6 mg - Objective Vital Signs: Vital Signs Temperature 97.9 F 07/17/17 13:52 Pulse Rate 89 07/17/17 13:52 Respiratory Rate 18 07/17/17 13:52 Blood Pressure 124/88 07/17/17 13:52 O2 Sat by Pulse Oximetry (%) 97 07/17/17 10:00 Constitutional: Yes: Anxious Eyes: Yes: EOM Intact HENT: Yes: Normocephalic Neck: Yes: Trachea Midline Cardiovascular: Yes: Regular Rate and Rhythm Respiratory: Yes: CTA Bilaterally Gastrointestinal: Yes: Normal Bowel Sounds ...Rectal Exam: Yes: Deferred Genitourinary: Yes: WNL Breast(s): Yes: WNL Musculoskeletal: Yes: Muscle Weakness Extremities: Yes: WNL Edema: No Labs: CBC, BMP 07/15/17 05:30 07/17/17 10:26 INR, PTT INR 3.23 (0.82-1.09) H 07/17/17 08:35 Problem List - Problems (1) CHF (congestive heart failure) Code(s): I50.9 - HEART FAILURE, UNSPECIFIED Qualifiers: Qualified Code(s): I50.9 - Heart failure, unspecified; I50.9 - Heart failure, unspecified; I50.9 - Heart failure, unspecified; I50.9 - Heart failure , unspecified (2) COPD (chronic obstructive pulmonary disease) with chronic bronchitis Code(s): J44.9 - CHRONIC OBSTRUCTIVE PULMONARY DISEASE, UNSPECIFIED (3) Mitral valve replaced Code(s): Z95.2 - PRESENCE OF PROSTHETIC HEART VALVE (4) S/P MVR (mitral valve replacement) Code(s): Z95.2 - PRESENCE OF PROSTHETIC HEART VALVE (5) Acute asthma exacerbation Code(s): J45.901 - UNSPECIFIED ASTHMA WITH (ACUTE) EXACERBATION Qualifiers: (6) Acute exacerbation of CHF (congestive heart failure) Code(s): I50.9 - HEART FAILURE, UNSPECIFIED Qualifiers: Congestive heart failure type: diastolic Qualified Code(s): I50.33 - Acute on chronic diastolic (congestive) heart failure; I50.33 - Acute on chronic diastolic (congestive) heart failure; I50.33 - Acute on chronic diastolic (congestive) heart failure; I50.33 - Acute on chronic diastolic ( congestive) heart failure Assessment/Plan Current Active Problems Asthma attack (Acute) CHF (congestive heart failure) (Acute) COPD (chronic obstructive pulmonary disease) with chronic bronchitis (Acute) Internal jugular vein thrombosis (Acute) Mitral valve replaced (Acute) S/P MVR (mitral valve replacement) (Acute) dm hyperglycemia,insulin resistant Abnormal Lab Results 07/17/17 07/17/17 08:35 10:26 PT with INR 36.40 H INR 3.23 H BUN 21 H D Random Glucose 182 H Calcium 8.3 L Total Protein 6.0 L Albumin 3.0 L Laboratory Results - last 24 hr 07/17/17 07/17/17 07/17/17 05:56 08:35 10:26 PT with INR 36.40 H INR 3.23 H Sodium 137 Potassium 4.5 Chloride 103 Carbon Dioxide 24 Anion Gap 10 BUN 21 H D Creatinine 0.9 Creat Clearance w eGFR > 60 POC Glucometer 175 Random Glucose 182 H Calcium 8.3 L Total Bilirubin 0.9 D AST 34 ALT 40 D Alkaline Phosphatase 83 Total Protein 6.0 L Albumin 3.0 L 07/17/17 07/17/17 07/17/17 11:33 17:12 21:42 PT with INR INR Sodium Potassium Chloride Carbon Dioxide Anion Gap BUN Creatinine Creat Clearance w eGFR POC Glucometer 226 191 199 Random Glucose Calcium Total Bilirubin AST ALT Alkaline Phosphatase Total Protein Albumin plan: bgm qid novolog insulin scale Current Medications Generic Name Dose Route Start Last Admin Trade Name Freq PRN Reason Stop Dose Admin Acetaminophen 650 mg 07/14/17 04:07 07/14/17 22:30 Tylenol - PO 650 mg Q6H PRN Administration PAIN Acetylcysteine 200 mg 07/16/17 18:00 07/17/17 19:09 Mucomyst 20 Oral / Inh Use Only* NEB 200 mg QIDR [facility] Administration Albuterol Sulfate 1 amp 07/16/17 18:00 07/17/17 19:09 Ventolin 0.083% Nebulizer Soln - NEB 1 amp QIDR [facility] Administration Aspirin 81 mg 07/12/17 10:00 07/17/17 10:19 Asa - PO 81 mg DAILY [facility] Administration Budesonide 1 amp 07/12/17 11:00 07/17/17 21:52 Pulmicort 0.25 Mg Nebulizer - NEB 1 amp BID [facility] Administration Calcium Carbonate 650 mg 07/13/17 14:15 07/17/17 10:18 Calcium Carbonate - PO 650 mg DAILY [facility] Administration Diltiazem HCl 180 mg 07/12/17 10:00 07/17/17 10:18 Cardizem Cd - PO 180 mg DAILY [facility] Administration Furosemide 40 mg 07/14/17 10:00 07/17/17 10:18 Lasix - PO 40 mg DAILY [facility] Administration Guaifenesin 5 ml 07/13/17 09:54 07/16/17 01:19 Diabetic Tussin Dm - PO 5 ml Q4H PRN Administration COUGH Insulin Aspart 1 vial 07/14/17 07:00 07/17/17 21:43 Novolog Vial Sliding Scale - SQ Not Given [facility] Protocol Insulin Detemir 10 units 07/17/17 07:00 07/17/17 06:02 Levemir Vial SQ 10 units AM [facility] Administration Methylprednisolone Sodium Succinate 40 mg 07/17/17 22:00 07/17/17 21:43 Solu-Medrol - IVPB 40 mg BID [facility] Administration Potassium Chloride 20 meq 07/12/17 10:00 07/17/17 10:18 K-Dur - PO 20 meq DAILY [facility] Administration Ranitidine HCl 150 mg 07/12/17 10:00 07/17/17 10:18 Zantac - PO 150 mg DAILY [facility] Administration Senna 1 tab 07/12/17 10:00 07/17/17 10:18 Senna - PO 1 tab DAILY [facility] Administration Warfarin Sodium 4 mg 07/14/17 18:00 07/16/17 17:51 Coumadin - PO Not Given [email or web address] [facility] Warfarin Sodium 6 mg 07/13/17 18:00 07/13/17 18:11 Coumadin - PO 6 mg [email or web address] [facility] Administration
[2017-07-18] MEDS: ACETYLCYSTEINE 20% 200MG/ML 4 ML VIAL *FOR ORAL / INH USE ONLY NEB SCH ×5 (00:05→23:08)
[2017-07-18] MEDS: ALBUTEROL SO4 0.083% IH SOL 2.5 MG/3 ML VIAL.NEB. NEB SCH ×5 (00:05→23:08)
[2017-07-18] MEDS: INSULIN SLIDING SCALE (NOVOLOG) 1 VIAL SQ SCH ×4 (06:02→21:25)
[2017-07-18] MEDS: INSULIN DETEMIR 100 UNITS/ML MDV SQ SCH (06:06)
[2017-07-18 06:51] LABS: INR 2.84 (0.82-1.09); PROTHROMBIN TIME (PATIENT) 31.9 SEC (9.98-11.88)
--- NOTE | 2017-07-18 08:52 | PN ---
Progress Note, Physician Chief Complaint: TELE: AF with acceptable overal control Alert, no new complaints today - Current Medication List Current Medications: Active Medications Acetaminophen (Tylenol -) 650 mg PO Q6H PRN PRN Reason: PAIN Last Admin: 07/14/17 22:30 Dose: 650 mg Acetylcysteine (Mucomyst 20 Oral / Inh Use Only*) 200 mg NEB QIDR [facility] Last Admin: 07/18/17 06:31 Dose: 200 mg Albuterol Sulfate (Ventolin 0.083% Nebulizer Soln -) 1 amp NEB QIDR [facility] Last Admin: 07/18/17 06:31 Dose: 1 amp Aspirin (Asa -) 81 mg PO DAILY [facility] Last Admin: 07/17/17 10:19 Dose: 81 mg Budesonide (Pulmicort 0.25 Mg Nebulizer -) 1 amp NEB BID [facility] Last Admin: 07/17/17 21:52 Dose: 1 amp Calcium Carbonate (Calcium Carbonate -) 650 mg PO DAILY [facility] Last Admin: 07/17/17 10:18 Dose: 650 mg Diltiazem HCl (Cardizem Cd -) 180 mg PO DAILY [facility] Last Admin: 07/17/17 10:18 Dose: 180 mg Furosemide (Lasix -) 40 mg PO DAILY [facility] Last Admin: 07/17/17 10:18 Dose: 40 mg Guaifenesin (Diabetic Tussin Dm -) 5 ml PO Q4H PRN PRN Reason: COUGH Last Admin: 07/16/17 01:19 Dose: 5 ml Insulin Aspart (Novolog Vial Sliding Scale -) 1 vial SQ ACHS [facility] PRN Reason: Protocol Last Admin: 07/18/17 06:02 Dose: Not Given Insulin Detemir (Levemir Vial) 10 units SQ AM [facility] Last Admin: 07/18/17 06:06 Dose: 10 units Methylprednisolone Sodium Succinate (Solu-Medrol -) 40 mg IVPB BID [facility] Last Admin: 07/17/17 21:43 Dose: 40 mg Potassium Chloride (K-Dur -) 20 meq PO DAILY [facility] Last Admin: 07/17/17 10:18 Dose: 20 meq Ranitidine HCl (Zantac -) 150 mg PO DAILY [facility] Last Admin: 07/17/17 10:18 Dose: 150 mg Senna (Senna -) 1 tab PO DAILY [facility] Last Admin: 07/17/17 10:18 Dose: 1 tab Warfarin Sodium (Coumadin -) 4 mg PO [email or web address] [facility] Last Admin: 07/16/17 17:51 Dose: Not Given Warfarin Sodium (Coumadin -) 6 mg PO [email or web address] [facility] Last Admin: 07/13/17 18:11 Dose: 6 mg - Objective Vital Signs: Vital Signs Temperature 98.0 F 07/18/17 06:00 Pulse Rate 95 H 07/18/17 06:00 Respiratory Rate 22 07/18/17 06:00 Blood Pressure 155/97 07/18/17 06:00 O2 Sat by Pulse Oximetry (%) 99 07/17/17 21:00 Constitutional: Yes: No Distress Cardiovascular: Yes: Pulse Irregular Respiratory: Yes: Other (rales at left base, essentially unchanged) Gastrointestinal: Yes: Soft Edema: Yes Edema: LLE: 1+, RLE: 1+ Neurological: Yes: Alert Labs: CBC, BMP 07/15/17 05:30 07/17/17 10:26 INR, PTT INR 2.84 (0.82-1.09) H 07/18/17 05:30 - ....Imaging EKG: Image Reviewed Assessment/Plan Assessment/Plan IMP: Acute on chronic diastolic CHF, mild S/P Mechanical MVR, 2 weeks ago Permanent AF Chronic COPD with exacerbation L IJ thrombus REC: CTA results noted-no pulmonary embolism, no sig change in pleural effusion and atelectasis, no sign of pulm vasc congestion or developing pna Cont po lasix. Cont warfarin for goal 2.5-3.5 (Afib, MVR) -Hematology input reviewed Vascular input reviewed, continued AC with coumadin. Afib HR adequately controlled currently, cont current medical regimen
[2017-07-18] MEDS ORDERED: PT OWN MED DRAWER 7, Y5N ONE ×3 (09:41→20:04)
--- NOTE | 2017-07-18 10:09 | DS ---
Physical Examination Vital Signs: Vital Signs Temperature 98.0 F 07/18/17 06:00 Pulse Rate 95 H 07/18/17 06:00 Respiratory Rate 22 07/18/17 06:00 Blood Pressure 155/97 07/18/17 06:00 O2 Sat by Pulse Oximetry (%) 99 07/17/17 21:00 Constitutional: Yes: Calm Neck: Yes: Trachea Midline Cardiovascular: Yes: Pulse Irregular, S1, S2 Respiratory: Yes: CTA Bilaterally, Diminished (at bases) Gastrointestinal: Yes: Normal Bowel Sounds, Soft Edema: No Neurological: Yes: Alert, Oriented Labs: CBC, BMP 07/15/17 05:30 07/17/17 10:26 Discharge Summary Reason For Visit: COPD,CHF,ASTHMA ATTACK Current Active Problems Asthma attack (Acute) CHF (congestive heart failure) (Acute) COPD (chronic obstructive pulmonary disease) with chronic bronchitis (Acute) Internal jugular vein thrombosis (Acute) Mitral valve replaced (Acute) S/P MVR (mitral valve replacement) (Acute) Hospital Course: - Primary Care Physician PCP: Escobar Perez - Admission Chief Complaint: SOB, CHF, S/P MVR History of Present Illness: Patient is a 76 year old female with a significant past medical history of AFib( on coumadin), CHF, mitral insufficiency, hypertension, hypothyroidism, asthma, COPD, and osteoarthritis who presents to the ED with complaints of shortness of breath for 7 hours. Patient reports getting discharged from [facility] yesterday for prolonged admission for cardiac evaluation. As per patient's daughter patient has been has experiencing intermittent episodes of wheezing and SOB during her hospitalization. Patients daughter reports patient continued to wheeze with SOB after returning home. Patients was was admitted to [facility] for congestive heart failure and asthma exacerbation. Denies nausea, vomiting. Denies fever, chills. Denies any other symptoms. Allergies: Ampicillin, Codeine. Social history: No smoking. No alcohol. No illicit Drugs. Surgical history: Tubal Ligation PMD: Dr. Perez History Source: Patient Limitations to Obtaining History: No Limitations - Past Medical History GLOBE MOUNTER: No: Alzheimer's Cardiovascular: Yes: AFIB (REFUSED ANTICOAGULATION IN PAST NOW ON COUMADIN), HTN , Mitral Insufficiency Pulmonary: Yes: Asthma, Bronchitis, COPD Gastrointestinal: Yes: GERD Heme/Onc: No: Anemia Psych: No: Addictions Musculoskeletal: Yes: Osteoarthritis Endocrine: Yes: Hyperthyroidism. No: Diabetes Mellitus acute on chronic diastolic CHF iv lasix cardiology on board afib on coumadin on cardizem rate control s/p mitral valvue replacement on coumadin INR 2.5-3.5 acute on chornic COPD exacerbation iv steroids to po prednisione taper hyperglycemia sec to steroids on insulin right IJ thrombosis already on coumadin Condition: Improved - Instructions Referrals: Joey Hernandez MD [Primary Care Provider] - Disposition: HOME - Home Medications Comprehensive Discharge Medication List: Ambulatory Orders Acetaminophen [Tylenol] 650 mg PO BID 07/12/17 Albuterol 2.5/Ipratropium 0.5 [Duoneb -] 1 neb NEB Q4H 07/12/17 Aspirin [ASA -] 81 mg PO DAILY 07/12/17 Budesonide [Pulmicort Flexhaler] 90 mcg IH BID 07/12/17 Diltiazem HCl [Diltiazem 24Hr Cd] 180 mg PO DAILY 07/12/17 Diltiazem HCl [Diltiazem 24Hr Cd] 240 mg PO DAILY 07/12/17 Famotidine [Pepcid] 20 mg PO DAILY 07/12/17 Furosemide [Lasix] 40 mg PO DAILY 07/12/17 Potassium Chloride 20 meq PO DAILY 07/12/17 Sennosides [Senna] 17.2 mg PO DAILY 07/12/17 Warfarin Sodium 6 mg PO ASDIR 07/12/17 Warfarin Sodium [Coumadin] 4 mg PO ASDIR 07/12/17
[2017-07-18] MEDS: BUDESONIDE 0.25 MG/2ML INH SUSP VIAL NEB SCH ×2 (10:15→22:30)
[2017-07-18] MEDS: POTASSIUM CHLORIDE TABS 20 MEQ TABLET.ER (FP) PO SCH (10:23)
[2017-07-18] MEDS: RANITIDINE HCL 150 MG TABLET (FP) PO SCH (10:23)
[2017-07-18] MEDS: methylPREDNISolone NA SUCC 40 MG/1 ML VIAL IVPB SCH ×3 (10:23→17:13)
[2017-07-18] MEDS: FUROSEMIDE 40 MG TABLET (FP) PO SCH (10:23)
[2017-07-18] MEDS: SENNOSIDES 8.6MG TABLET (FP) PO SCH (10:23)
[2017-07-18] MEDS: ASPIRIN 81 MG CHEWABLE TABLETS PO SCH (10:23)
[2017-07-18] MEDS: CALCIUM CARBONATE 650 MG TABLET PO SCH (10:23)
--- NOTE | 2017-07-18 12:30 | PN ---
Progress Note, Physician History of Present Illness: pulmonary alert,oob chair,less congested - Current Medication List Current Medications: Active Medications Acetaminophen (Tylenol -) 650 mg PO Q6H PRN PRN Reason: PAIN Last Admin: 07/14/17 22:30 Dose: 650 mg Acetylcysteine (Mucomyst 20 Oral / Inh Use Only*) 200 mg NEB QIDR [facility] Last Admin: 07/18/17 06:31 Dose: 200 mg Albuterol Sulfate (Ventolin 0.083% Nebulizer Soln -) 1 amp NEB QIDR [facility] Last Admin: 07/18/17 06:31 Dose: 1 amp Aspirin (Asa -) 81 mg PO DAILY [facility] Last Admin: 07/18/17 10:23 Dose: 81 mg Budesonide (Pulmicort 0.25 Mg Nebulizer -) 1 amp NEB BID [facility] Last Admin: 07/18/17 10:15 Dose: 1 amp Calcium Carbonate (Calcium Carbonate -) 650 mg PO DAILY [facility] Last Admin: 07/18/17 10:23 Dose: 650 mg Diltiazem HCl (Cardizem Cd -) 180 mg PO DAILY [facility] Last Admin: 07/18/17 10:23 Dose: 180 mg Furosemide (Lasix -) 40 mg PO DAILY [facility] Last Admin: 07/18/17 10:23 Dose: 40 mg Guaifenesin (Diabetic Tussin Dm -) 5 ml PO Q4H PRN PRN Reason: COUGH Last Admin: 07/16/17 01:19 Dose: 5 ml Insulin Aspart (Novolog Vial Sliding Scale -) 1 vial SQ ACHS [facility] PRN Reason: Protocol Last Admin: 07/18/17 06:02 Dose: Not Given Insulin Detemir (Levemir Vial) 10 units SQ AM [facility] Last Admin: 07/18/17 06:06 Dose: 10 units Potassium Chloride (K-Dur -) 20 meq PO DAILY [facility] Last Admin: 07/18/17 10:23 Dose: 20 meq Prednisone 40 mg/ Prednisone (10 mg) 50 mg PO DAILY [facility] Ranitidine HCl (Zantac -) 150 mg PO DAILY [facility] Last Admin: 07/18/17 10:23 Dose: 150 mg Senna (Senna -) 1 tab PO DAILY [facility] Last Admin: 07/18/17 10:23 Dose: 1 tab Warfarin Sodium (Coumadin -) 4 mg PO [email or web address]@1800 [facility] Last Admin: 07/16/17 17:51 Dose: Not Given Warfarin Sodium (Coumadin -) 6 mg PO [email or web address]@1800 [facility] Last Admin: 07/13/17 18:11 Dose: 6 mg - Objective Vital Signs: Vital Signs Temperature 98.0 F 07/18/17 06:00 Pulse Rate 84 07/18/17 10:15 Respiratory Rate 22 07/18/17 06:00 Blood Pressure 155/97 07/18/17 06:00 O2 Sat by Pulse Oximetry (%) 99 07/18/17 10:15 Constitutional: Yes: Well Nourished, Calm Eyes: Yes: WNL HENT: Yes: Nasal Congestion Neck: Yes: WNL Cardiovascular: Yes: Pulse Irregular, S1, S2 Respiratory: Yes: Wheezes (bilateral wheezes) Gastrointestinal: Yes: Normal Bowel Sounds, Soft Extremities: Yes: WNL Edema: No Labs: CBC, BMP Assessment/Plan IMP COPD /ASTHMA EXACERBATION CHF MVR RECENT/NL CORONARIES PERMANENT AF H/O VTE HTN/PULMONARY HTN LLL OPACITY LIKELY PARTIAL ATELECTASIS LLL LEFT IJ PHLEBITIS O2 BRONCHODILATORS A/C, DIURETICS CONTINUE IV STEROIDS BRONCHODILATORS CHEST PT MUCOMYST F/U CHEST CT OUTPATIENT DR YE Problem List - Problems (1) COPD (chronic obstructive pulmonary disease) with chronic bronchitis Code(s): J44.9 - CHRONIC OBSTRUCTIVE PULMONARY DISEASE, UNSPECIFIED (2) Acute asthma exacerbation Code(s): J45.901 - UNSPECIFIED ASTHMA WITH (ACUTE) EXACERBATION Qualifiers: (3) Anxiety and depression Code(s): F41.9 - ANXIETY DISORDER, UNSPECIFIED F32.9 - MAJOR DEPRESSIVE DISORDER, SINGLE EPISODE, UNSPECIFIED (4) Mitral valve replaced Code(s): Z95.2 - PRESENCE OF PROSTHETIC HEART VALVE
[2017-07-18] MEDS: WARFARIN NA 2 MG TABLET (UD) PO SCH (17:13)
[2017-07-18] MEDS: guaiFENesin/D-M SUGAR-FREE/ACLHOL-FREE 118 ML BOTTLE PO PRN (20:06)
[2017-07-19] MEDS: methylPREDNISolone NA SUCC 40 MG/1 ML VIAL IVPB SCH ×3 (01:29→18:50)
[2017-07-19] MEDS: INSULIN DETEMIR 100 UNITS/ML MDV SQ SCH (06:03)
[2017-07-19] MEDS: INSULIN SLIDING SCALE (NOVOLOG) 1 VIAL SQ SCH ×4 (06:03→21:40)
[2017-07-19] MEDS ORDERED: PT OWN MED DRAWER 7, Y5N ONE ×4 (06:24→21:41)
[2017-07-19] MEDS: ACETYLCYSTEINE 20% 200MG/ML 4 ML VIAL *FOR ORAL / INH USE ONLY NEB SCH ×4 (06:40→23:19)
[2017-07-19] MEDS: ALBUTEROL SO4 0.083% IH SOL 2.5 MG/3 ML VIAL.NEB. NEB SCH ×4 (06:41→23:19)
--- NOTE | 2017-07-19 06:50 | PN ---
Progress Note, Physician History of Present Illness: seen and examined today in nad. states she is slowly improving but still wheezing and coughing. no overnight events. no new complaints. - Current Medication List Current Medications: Active Medications Acetaminophen (Tylenol -) 650 mg PO Q6H PRN PRN Reason: PAIN Last Admin: 07/14/17 22:30 Dose: 650 mg Acetylcysteine (Mucomyst 20 Oral / Inh Use Only*) 200 mg NEB QIDR [facility] Last Admin: 07/19/17 06:40 Dose: 200 mg Albuterol Sulfate (Ventolin 0.083% Nebulizer Soln -) 1 amp NEB QIDR [facility] Last Admin: 07/19/17 06:41 Dose: 1 amp Aspirin (Asa -) 81 mg PO DAILY [facility] Last Admin: 07/18/17 10:23 Dose: 81 mg Budesonide (Pulmicort 0.25 Mg Nebulizer -) 1 amp NEB BID [facility] Last Admin: 07/18/17 22:30 Dose: Not Given Calcium Carbonate (Calcium Carbonate -) 650 mg PO DAILY [facility] Last Admin: 07/18/17 10:23 Dose: 650 mg Diltiazem HCl (Cardizem Cd -) 180 mg PO DAILY [facility] Last Admin: 07/18/17 10:23 Dose: 180 mg Furosemide (Lasix -) 40 mg PO DAILY [facility] Last Admin: 07/18/17 10:23 Dose: 40 mg Guaifenesin (Diabetic Tussin Dm -) 5 ml PO Q4H PRN PRN Reason: COUGH Last Admin: 07/18/17 20:06 Dose: 5 ml Insulin Aspart (Novolog Vial Sliding Scale -) 1 vial SQ ACHS BLESSING PRN Reason: Protocol Last Admin: 07/19/17 06:03 Dose: Not Given Insulin Detemir (Levemir Vial) 10 units SQ AM BLESSING Last Admin: 07/19/17 06:03 Dose: 10 units Methylprednisolone Sodium Succinate (Solu-Medrol -) 40 mg IVPB Q8H-IV BLESSING Last Admin: 07/19/17 01:29 Dose: 40 mg Potassium Chloride (K-Dur -) 20 meq PO DAILY [facility] Last Admin: 07/18/17 10:23 Dose: 20 meq Ranitidine HCl (Zantac -) 150 mg PO DAILY [facility] Last Admin: 07/18/17 10:23 Dose: 150 mg Senna (Senna -) 1 tab PO DAILY [facility] Last Admin: 07/18/17 10:23 Dose: 1 tab Warfarin Sodium (Coumadin -) 4 mg PO MoWeFr@1800 [facility] Last Admin: 07/18/17 17:13 Dose: 4 mg Warfarin Sodium (Coumadin -) 6 mg PO SuTuThSa@1800 [facility] Last Admin: 07/13/17 18:11 Dose: 6 mg - Objective Vital Signs: Vital Signs Temperature 98.1 F 07/19/17 05:59 Pulse Rate 96 H 07/19/17 05:59 Respiratory Rate 18 07/19/17 05:59 Blood Pressure 160/90 07/19/17 05:59 O2 Sat by Pulse Oximetry (%) 99 07/18/17 21:00 Constitutional: Yes: No Distress, Calm Eyes: Yes: Conjunctiva Clear, EOM Intact, PERRL HENT: Yes: Atraumatic, Normocephalic Neck: Yes: Supple, Trachea Midline Cardiovascular: Yes: Pulse Irregular, Murmur, S1, S2. No: Bradycardia, Tachycardia, Bruit, JVD, Gallop, Rub, S3, S4, Varicosities Respiratory: Yes: Regular, Cough, Diminished, Rhonchi, Wheezes. No: Rales, SOB Gastrointestinal: Yes: Normal Bowel Sounds, Soft. No: Distention, Tenderness Musculoskeletal: Yes: Muscle Weakness Extremities: Yes: WNL Edema: No Peripheral Pulses WNL: Yes Peripheral Pulses: Left Doralis Pedis: 2+, Right Dorsalis Pedis: 2+ Neurological: Yes: Alert, Oriented Psychiatric: Yes: Alert, Oriented Labs: CBC, BMP 07/15/17 05:30 07/17/17 10:26 INR, PTT INR 2.84 (0.82-1.09) H 07/18/17 05:30 - ....Imaging Chest X-ray: Report Reviewed, Image Reviewed EKG: Report Reviewed, Image Reviewed Other: Report Reviewed, Image Reviewed (tele-Afib, overall HR adequately controlled, episodes of RVR) Assessment/Plan AE COPD Acute on chronic diastolic CHF, mild S/P Mechanical MVR, 2 weeks ago Permanent AF Chronic COPD with exacerbation L IJ thrombus REC: SOB/wheezing-slowly improving -pulmonary following CTA results noted-no pulmonary embolism, no sig change in pleural effusion and atelectasis, no sign of pulm vasc congestion or developing pna Overall euvolemic Cont po lasix. Cont warfarin for goal 2.5-3.5 (Afib, MVR) -Hematology input reviewed Vascular input reviewed, continued AC with coumadin. Afib HR adequately controlled currently, but occasional episodes of rvr, and HTN trending up--will increase Cardizem CD to 360mg daily
[2017-07-19] MEDS: FUROSEMIDE 40 MG TABLET (FP) PO SCH (09:16)
[2017-07-19] MEDS: SENNOSIDES 8.6MG TABLET (FP) PO SCH (09:17)
[2017-07-19] MEDS: ASPIRIN 81 MG CHEWABLE TABLETS PO SCH (09:17)
[2017-07-19] MEDS: POTASSIUM CHLORIDE TABS 20 MEQ TABLET.ER (FP) PO SCH (09:17)
[2017-07-19] MEDS: RANITIDINE HCL 150 MG TABLET (FP) PO SCH (09:17)
[2017-07-19] MEDS: CALCIUM CARBONATE 650 MG TABLET PO SCH ×2 (09:39→15:46)
[2017-07-19] MEDS ORDERED: PREDNISONE 40 MG, PREDNISONE 10 MG PO SCH (10:00)
[2017-07-19] MEDS ORDERED: predniSONE 20 MG TABLET (UD) PO SCH (10:00)
[2017-07-19] MEDS ORDERED: BUDESONIDE 0.5 MG/2 ML INH SUSP VIAL NEB ONE (10:12)
[2017-07-19 10:26] LABS: INR 3.34 (0.82-1.09); PROTHROMBIN TIME (PATIENT) 37.7 SEC (9.98-11.88)
[2017-07-19] MEDS: BUDESONIDE 0.25 MG/2ML INH SUSP VIAL NEB SCH ×2 (10:55→21:48)
--- NOTE | 2017-07-19 10:56 | PN ---
Progress Note, Physician History of Present Illness: PULMONARY ALERT,OOB-CHAIR,+COUGH,STILL CONGESTED,+BAL - Current Medication List Current Medications: Active Medications Acetaminophen (Tylenol -) 650 mg PO Q6H PRN PRN Reason: PAIN Last Admin: 07/14/17 22:30 Dose: 650 mg Acetylcysteine (Mucomyst 20 Oral / Inh Use Only*) 200 mg NEB QIDR [facility] Last Admin: 07/19/17 06:40 Dose: 200 mg Albuterol Sulfate (Ventolin 0.083% Nebulizer Soln -) 1 amp NEB QIDR [facility] Last Admin: 07/19/17 06:41 Dose: 1 amp Aspirin (Asa -) 81 mg PO DAILY [facility] Last Admin: 07/19/17 09:17 Dose: 81 mg Budesonide (Pulmicort 0.25 Mg Nebulizer -) 1 amp NEB BID [facility] Last Admin: 07/18/17 22:30 Dose: Not Given Calcium Carbonate (Calcium Carbonate -) 650 mg PO DAILY [facility] Last Admin: 07/19/17 09:39 Dose: Not Given Diltiazem HCl (Cardizem Cd -) 360 mg PO DAILY [facility] Furosemide (Lasix -) 40 mg PO DAILY [facility] Last Admin: 07/19/17 09:16 Dose: 40 mg Guaifenesin (Diabetic Tussin Dm -) 5 ml PO Q4H PRN PRN Reason: COUGH Last Admin: 07/18/17 20:06 Dose: 5 ml Insulin Aspart (Novolog Vial Sliding Scale -) 1 vial SQ ACHS BLESSING PRN Reason: Protocol Last Admin: 07/19/17 06:03 Dose: Not Given Insulin Detemir (Levemir Vial) 10 units SQ AM [facility]ESS[facility] Last Admin: 07/19/17 06:03 Dose: 10 units Methylprednisolone Sodium Succinate (Solu-Medrol -) 40 mg IVPB Q8H-IV BLESSING Last Admin: 07/19/17 09:16 Dose: 40 mg Potassium Chloride (K-Dur -) 20 meq PO DAILY [facility] Last Admin: 07/19/17 09:17 Dose: 20 meq Ranitidine HCl (Zantac -) 150 mg PO DAILY [facility] Last Admin: 07/19/17 09:17 Dose: 150 mg Senna (Senna -) 1 tab PO DAILY [facility] Last Admin: 07/19/17 09:17 Dose: 1 tab Warfarin Sodium (Coumadin -) 4 mg PO MoWeFr@1800 [facility] Last Admin: 07/18/17 17:13 Dose: 4 mg Warfarin Sodium (Coumadin -) 6 mg PO SuTuThSa@1800 [facility] Last Admin: 07/13/17 18:11 Dose: 6 mg - Objective Vital Signs: Vital Signs Temperature 98.1 F 07/19/17 10:00 Pulse Rate 90 07/19/17 10:00 Respiratory Rate 18 07/19/17 10:00 Blood Pressure 147/82 07/19/17 10:00 O2 Sat by Pulse Oximetry (%) 98 07/19/17 09:00 Constitutional: Yes: Well Nourished, Calm Eyes: Yes: WNL HENT: Yes: WNL Neck: Yes: WNL Cardiovascular: Yes: Pulse Irregular, S1, S2 Respiratory: Yes: Rhonchi, Wheezes (BILATERAL WHEEZES AND RHONCHI) Gastrointestinal: Yes: Normal Bowel Sounds, Soft Extremities: Yes: WNL Edema: Yes Labs: CBC, BMP 07/15/17 05:30 07/17/17 10:26 INR, PTT INR 3.34 (0.82-1.09) H 07/19/17 10:00 Assessment/Plan IMP COPD /ASTHMA EXACERBATION CHF MVR RECENT/NL CORONARIES PERMANENT AF H/O VTE HTN/PULMONARY HTN LLL OPACITY LIKELY PARTIAL ATELECTASIS LLL LEFT IJ PHLEBITIS O2 BRONCHODILATORS A/C, DIURETICS CONTINUE IV STEROIDS SAME DOSE BRONCHODILATORS CHEST PT MUCOMYST MONITOR INR F/U CHEST CT OUTPATIENT DR YE Problem List - Problems (1) COPD (chronic obstructive pulmonary disease) with chronic bronchitis Code(s): J44.9 - CHRONIC OBSTRUCTIVE PULMONARY DISEASE, UNSPECIFIED (2) Acute asthma exacerbation Code(s): J45.901 - UNSPECIFIED ASTHMA WITH (ACUTE) EXACERBATION Qualifiers: (3) Anxiety and depression Code(s): F41.9 - ANXIETY DISORDER, UNSPECIFIED F32.9 - MAJOR DEPRESSIVE DISORDER, SINGLE EPISODE, UNSPECIFIED (4) Mitral valve replaced Code(s): Z95.2 - PRESENCE OF PROSTHETIC HEART VALVE
--- NOTE | 2017-07-19 11:37 | PN ---
Progress Note, Physician Chief Complaint: THIS IS MY FIRST ENCOUNTER WITH THIS PATIENT CHART AND RECORDS REVIEWED AWAKE STILL SOB ON O2 SUPPORT ON STEROIDS - Current Medication List Current Medications: Active Medications Acetaminophen (Tylenol -) 650 mg PO Q6H PRN PRN Reason: PAIN Last Admin: 07/14/17 22:30 Dose: 650 mg Acetylcysteine (Mucomyst 20 Oral / Inh Use Only*) 200 mg NEB QIDR [facility] Last Admin: 07/19/17 06:40 Dose: 200 mg Albuterol Sulfate (Ventolin 0.083% Nebulizer Soln -) 1 amp NEB QIDR [facility]ESS[facility] Last Admin: 07/19/17 06:41 Dose: 1 amp Aspirin (Asa -) 81 mg PO DAILY [facility] Last Admin: 07/19/17 09:17 Dose: 81 mg Budesonide (Pulmicort 0.25 Mg Nebulizer -) 1 amp NEB BID [facility] Last Admin: 07/18/17 22:30 Dose: Not Given Calcium Carbonate (Calcium Carbonate -) 650 mg PO DAILY [facility] Last Admin: 07/19/17 09:39 Dose: Not Given Diltiazem HCl (Cardizem Cd -) 360 mg PO DAILY [facility] Furosemide (Lasix -) 40 mg PO DAILY [facility] Last Admin: 07/19/17 09:16 Dose: 40 mg Guaifenesin (Diabetic Tussin Dm -) 5 ml PO Q4H PRN PRN Reason: COUGH Last Admin: 07/18/17 20:06 Dose: 5 ml Insulin Aspart (Novolog Vial Sliding Scale -) 1 vial SQ ACHS BLESSING PRN Reason: Protocol Last Admin: 07/19/17 06:03 Dose: Not Given Insulin Detemir (Levemir Vial) 10 units SQ AM [facility]ESS[facility] Last Admin: 07/19/17 06:03 Dose: 10 units Methylprednisolone Sodium Succinate (Solu-Medrol -) 40 mg IVPB Q8H-IV BLESSING Last Admin: 07/19/17 09:16 Dose: 40 mg Potassium Chloride (K-Dur -) 20 meq PO DAILY [facility] Last Admin: 07/19/17 09:17 Dose: 20 meq Ranitidine HCl (Zantac -) 150 mg PO DAILY [facility] Last Admin: 07/19/17 09:17 Dose: 150 mg Senna (Senna -) 1 tab PO DAILY [facility] Last Admin: 07/19/17 09:17 Dose: 1 tab Warfarin Sodium (Coumadin -) 4 mg PO MoWeFr@1800 [facility] Last Admin: 07/18/17 17:13 Dose: 4 mg Warfarin Sodium (Coumadin -) 6 mg PO SuTuThSa@1800 [facility] Last Admin: 07/13/17 18:11 Dose: 6 mg - Objective Vital Signs: Vital Signs Temperature 98.1 F 07/19/17 10:00 Pulse Rate 90 07/19/17 10:00 Respiratory Rate 18 07/19/17 10:00 Blood Pressure 147/82 07/19/17 10:00 O2 Sat by Pulse Oximetry (%) 98 07/19/17 09:00 Constitutional: Yes: Mild Distress Eyes: Yes: WNL HENT: Yes: WNL Neck: Yes: WNL Cardiovascular: Yes: WNL Respiratory: Yes: On Nasal O2, Poor Air Entry, Wheezes Gastrointestinal: Yes: WNL Genitourinary: Yes: WNL Musculoskeletal: Yes: WNL Extremities: Yes: WNL Edema: No Peripheral Pulses WNL: Yes Integumentary: Yes: WNL Wound/Incision: Yes: Clean/Dry Neurological: Yes: WNL ...Motor Strength: WNL Psychiatric: Yes: WNL Labs: CBC, BMP 07/15/17 05:30 07/17/17 10:26 INR, PTT INR 3.34 (0.82-1.09) H 07/19/17 10:00 Problem List - Problems (1) Asthma attack Code(s): J45.901 - UNSPECIFIED ASTHMA WITH (ACUTE) EXACERBATION (2) CHF (congestive heart failure) Code(s): I50.9 - HEART FAILURE, UNSPECIFIED Qualifiers: (3) COPD (chronic obstructive pulmonary disease) with chronic bronchitis Code(s): J44.9 - CHRONIC OBSTRUCTIVE PULMONARY DISEASE, UNSPECIFIED (4) Mitral valve replaced Code(s): Z95.2 - PRESENCE OF PROSTHETIC HEART VALVE (5) S/P MVR (mitral valve replacement) Code(s): Z95.2 - PRESENCE OF PROSTHETIC HEART VALVE (6) Acute asthma exacerbation Code(s): J45.901 - UNSPECIFIED ASTHMA WITH (ACUTE) EXACERBATION Qualifiers: (7) Acute exacerbation of CHF (congestive heart failure) Code(s): I50.9 - HEART FAILURE, UNSPECIFIED Qualifiers: Congestive heart failure type: diastolic Qualified Code(s): I50.33 - Acute on chronic diastolic (congestive) heart failure; I50.33 - Acute on chronic diastolic (congestive) heart failure; I50.33 - Acute on chronic diastolic (congestive) heart failure; I50.33 - Acute on chronic diastolic ( congestive) heart failure Assessment/Plan IV STEROIDS NEBS 02 SUPPORT INR THERAPEUTIC CONTINUE WARFARIN
[2017-07-19] MEDS: guaiFENesin/D-M SUGAR-FREE/ACLHOL-FREE 118 ML BOTTLE PO PRN (15:45)
[2017-07-19] MEDS: WARFARIN NA 3 MG TABLET PO SCH (17:01)
[2017-07-20] MEDS ORDERED: PT OWN MED DRAWER 7, Y5N ONE ×3 (01:37→21:00)
[2017-07-20] MEDS: guaiFENesin/D-M SUGAR-FREE/ACLHOL-FREE 118 ML BOTTLE PO PRN ×2 (01:38→21:08)
[2017-07-20] MEDS: methylPREDNISolone NA SUCC 40 MG/1 ML VIAL IVPB SCH ×4 (03:47→21:06)
[2017-07-20] MEDS: ACETYLCYSTEINE 20% 200MG/ML 4 ML VIAL *FOR ORAL / INH USE ONLY NEB SCH ×3 (06:30→18:55)
[2017-07-20] MEDS: ALBUTEROL SO4 0.083% IH SOL 2.5 MG/3 ML VIAL.NEB. NEB SCH ×3 (06:30→18:55)
[2017-07-20] MEDS: INSULIN SLIDING SCALE (NOVOLOG) 1 VIAL SQ SCH ×4 (06:32→21:06)
[2017-07-20] MEDS: INSULIN DETEMIR 100 UNITS/ML MDV SQ SCH (06:32)
[2017-07-20 07:06] LABS: PROTHROMBIN TIME (PATIENT) 52.4 SEC (9.98-11.88)
[2017-07-20 07:15] LABS: MCH 30.4 pg (25.7-33.7); MCHC 32.6 g/dl (32.0-36.0); MEAN CELL VOLUME 93.2 fl (80-96); PLATELET COUNT 293 K/MM3 (134-434); RDW 16.8 % (11.6-15.6); WHITE BLOOD COUNT 13.5 K/mm3 (4.0-10.0)
[2017-07-20 07:16] LABS: INR 4.62 (0.82-1.09)
[2017-07-20 07:21] LABS: ALBUMIN 2.7 g/dl (3.4-5.0); ANION GAP 9 (8-16); BILIRUBIN,TOTAL 0.6 mg/dL (0.2-1.0); CALCIUM 8.1 mg/dL (8.5-10.1); CO2 27 mmol/L (21-32); CREATININE 0.8 mg/dL (0.55-1.02); GLUCOSE,RANDOM 173 mg/dL (74-106); SGOT/AST 34 U/L (15-37); SGPT/ALT 38 U/L (12-78); TOT PROT 5.4 g/dl (6.4-8.2)
[2017-07-20 07:22] LABS: ALK PHOS 86 U/L (45-117)
[2017-07-20] MEDS ORDERED: FUROSEMIDE 40 MG/4 ML INJECTABLE VIAL IVPUSH ONE (08:30)
[2017-07-20] MEDS: ASPIRIN 81 MG CHEWABLE TABLETS PO SCH (09:21)
[2017-07-20] MEDS: SENNOSIDES 8.6MG TABLET (FP) PO SCH (09:21)
[2017-07-20] MEDS: FUROSEMIDE 40 MG TABLET (FP) PO SCH (09:21)
[2017-07-20] MEDS: RANITIDINE HCL 150 MG TABLET (FP) PO SCH (09:21)
[2017-07-20] MEDS: POTASSIUM CHLORIDE TABS 20 MEQ TABLET.ER (FP) PO SCH (09:21)
[2017-07-20] MEDS: CALCIUM CARBONATE 650 MG TABLET PO SCH (09:53)
[2017-07-20] MEDS ORDERED: BUDESONIDE 0.5 MG/2 ML INH SUSP VIAL NEB ONE ×2 (09:59→22:29)
[2017-07-20] MEDS: BUDESONIDE 0.25 MG/2ML INH SUSP VIAL NEB SCH ×2 (10:14→22:40)
--- NOTE | 2017-07-20 10:22 | PN ---
Progress Note, Physician History of Present Illness: seen and examined today in nad. sob slightly worse today, reports coughing all night. wheezing. - Current Medication List Current Medications: Active Medications Acetaminophen (Tylenol -) 650 mg PO Q6H PRN PRN Reason: PAIN Last Admin: 07/14/17 22:30 Dose: 650 mg Acetylcysteine (Mucomyst 20 Oral / Inh Use Only*) 200 mg NEB QIDR [facility] Last Admin: 07/20/17 06:30 Dose: 200 mg Albuterol Sulfate (Ventolin 0.083% Nebulizer Soln -) 1 amp NEB QIDR [facility] Last Admin: 07/20/17 06:30 Dose: 1 amp Aspirin (Asa -) 81 mg PO DAILY [facility] Last Admin: 07/20/17 09:21 Dose: 81 mg Budesonide (Pulmicort 0.25 Mg Nebulizer -) 1 amp NEB BID [facility] Last Admin: 07/19/17 21:48 Dose: 1 amp Calcium Carbonate (Calcium Carbonate -) 650 mg PO DAILY [facility] Last Admin: 07/20/17 09:53 Dose: 650 mg Diltiazem HCl (Cardizem Cd -) 360 mg PO DAILY [facility] Last Admin: 07/20/17 09:20 Dose: 360 mg Furosemide (Lasix -) 40 mg PO DAILY [facility] Last Admin: 07/20/17 09:21 Dose: 40 mg Guaifenesin (Diabetic Tussin Dm -) 5 ml PO Q4H PRN PRN Reason: COUGH Last Admin: 07/20/17 01:38 Dose: 5 ml Insulin Aspart (Novolog Vial Sliding Scale -) 1 vial SQ ACHS BLESSING PRN Reason: Protocol Last Admin: 07/20/17 06:32 Dose: Not Given Insulin Detemir (Levemir Vial) 10 units SQ AM [facility] Last Admin: 07/20/17 06:32 Dose: 10 units Methylprednisolone Sodium Succinate (Solu-Medrol -) 40 mg IVPB Q8H-IV [facility] Last Admin: 07/20/17 09:21 Dose: 40 mg Potassium Chloride (K-Dur -) 20 meq PO DAILY [facility] Last Admin: 07/20/17 09:21 Dose: 20 meq Ranitidine HCl (Zantac -) 150 mg PO DAILY [facility] Last Admin: 07/20/17 09:21 Dose: 150 mg Senna (Senna -) 1 tab PO DAILY [facility] Last Admin: 07/20/17 09:21 Dose: 1 tab Warfarin Sodium (Coumadin -) 4 mg PO MoWeFr@1800 [facility] Last Admin: 07/18/17 17:13 Dose: 4 mg Warfarin Sodium (Coumadin -) 6 mg PO SuTuThSa@1800 [facility] Last Admin: 07/19/17 17:01 Dose: 6 mg - Objective Vital Signs: Vital Signs Temperature 98.0 F 07/20/17 06:00 Pulse Rate 93 H 07/20/17 06:00 Respiratory Rate 20 07/20/17 06:00 Blood Pressure 133/85 07/20/17 06:00 O2 Sat by Pulse Oximetry (%) 98 07/19/17 21:00 Constitutional: Yes: No Distress, Calm Eyes: Yes: Conjunctiva Clear, EOM Intact, PERRL HENT: Yes: Atraumatic, Normocephalic Neck: Yes: Supple, Trachea Midline Cardiovascular: Yes: Pulse Irregular, Murmur, S1, S2. No: Regular Rate and Rhythm, Bradycardia, Tachycardia, Bruit, JVD, Gallop, Rub, S3, S4, Varicosities Respiratory: Yes: Regular, Diminished, On Nasal O2, Rales, Rhonchi, SOB, Wheezes Gastrointestinal: Yes: Normal Bowel Sounds, Soft. No: Distention, Tenderness Musculoskeletal: Yes: Muscle Weakness Edema: No Peripheral Pulses WNL: Yes Peripheral Pulses: Left Doralis Pedis: 2+, Right Dorsalis Pedis: 2+ Neurological: Yes: Alert, Oriented Psychiatric: Yes: Alert, Oriented Labs: CBC, BMP 07/20/17 06:40 07/20/17 06:40 INR, PTT INR 4.62 (0.82-1.09) H* D 07/20/17 06:40 - ....Imaging Chest X-ray: Report Reviewed, Image Reviewed EKG: Report Reviewed, Image Reviewed Other: Report Reviewed, Image Reviewed (tele-Afib, HR currently adequately controlled, but frequent episodes of RVR) Assessment/Plan AE COPD Acute on chronic diastolic CHF, mild S/P Mechanical MVR, 2 weeks ago Permanent AF Chronic COPD with exacerbation L IJ thrombus REC: SOB/wheezing-slowly improving but seems slightly worse today -will give extra dose of IV Lasix today in addition to current po Lasix to try to assist in clearing lungs -pulmonary following -CTA results noted-no pulmonary embolism, no sig change in pleural effusion and atelectasis, no sign of pulm vasc congestion or developing pna Afib HR adequately controlled currently, but still has episodes of rvr likely exacerbated by sob and coughing -cardizem was increased to 360mg daily yesterday -Cont warfarin for goal 2.5-3.5 (Afib, MVR), supratherapeutic today, hold warfarin until INR <3.5 -cont to monitor HR on tele, if no sig improvement may need to add additional AV michelle blockers, however presume HR will improve as SOB and coughing improves HTN-overall adequate, at times above goal -cont current medical regimen and monitor
--- NOTE | 2017-07-20 11:31 | PN ---
Progress Note, Physician History of Present Illness: PULMONARY ALERT,MORE DYSPNEIC,+COUGH,+ BRONCHOSPASM - Current Medication List Current Medications: Active Medications Acetaminophen (Tylenol -) 650 mg PO Q6H PRN PRN Reason: PAIN Last Admin: 07/14/17 22:30 Dose: 650 mg Acetylcysteine (Mucomyst 20 Oral / Inh Use Only*) 200 mg NEB QIDR [facility] Last Admin: 07/20/17 06:30 Dose: 200 mg Albuterol Sulfate (Ventolin 0.083% Nebulizer Soln -) 1 amp NEB QIDR [facility] Last Admin: 07/20/17 06:30 Dose: 1 amp Aspirin (Asa -) 81 mg PO DAILY [facility] Last Admin: 07/20/17 09:21 Dose: 81 mg Budesonide (Pulmicort 0.25 Mg Nebulizer -) 1 amp NEB BID [facility] Last Admin: 07/19/17 21:48 Dose: 1 amp Calcium Carbonate (Calcium Carbonate -) 650 mg PO DAILY [facility] Last Admin: 07/20/17 09:53 Dose: 650 mg Diltiazem HCl (Cardizem Cd -) 360 mg PO DAILY [facility] Last Admin: 07/20/17 09:20 Dose: 360 mg Furosemide (Lasix -) 40 mg PO DAILY [facility] Last Admin: 07/20/17 09:21 Dose: 40 mg Guaifenesin (Diabetic Tussin Dm -) 5 ml PO Q4H PRN PRN Reason: COUGH Last Admin: 07/20/17 01:38 Dose: 5 ml Insulin Aspart (Novolog Vial Sliding Scale -) 1 vial SQ ACHS BLESSING PRN Reason: Protocol Last Admin: 07/20/17 06:32 Dose: Not Given Insulin Detemir (Levemir Vial) 10 units SQ AM [facility] Last Admin: 07/20/17 06:32 Dose: 10 units Methylprednisolone Sodium Succinate (Solu-Medrol -) 40 mg IVPB Q8H-IV [facility] Last Admin: 07/20/17 09:21 Dose: 40 mg Potassium Chloride (K-Dur -) 20 meq PO DAILY [facility] Last Admin: 07/20/17 09:21 Dose: 20 meq Ranitidine HCl (Zantac -) 150 mg PO DAILY [facility] Last Admin: 07/20/17 09:21 Dose: 150 mg Senna (Senna -) 1 tab PO DAILY [facility] Last Admin: 07/20/17 09:21 Dose: 1 tab Warfarin Sodium (Coumadin -) 4 mg PO MoWeFr@1800 [facility] Last Admin: 07/18/17 17:13 Dose: 4 mg Warfarin Sodium (Coumadin -) 6 mg PO SuTuThSa@1800 [facility] Last Admin: 07/19/17 17:01 Dose: 6 mg - Objective Vital Signs: Vital Signs Temperature 98.2 F 07/20/17 10:00 Pulse Rate 89 07/20/17 10:00 Respiratory Rate 20 07/20/17 10:00 Blood Pressure 128/71 07/20/17 10:00 O2 Sat by Pulse Oximetry (%) 100 07/20/17 09:00 Constitutional: Yes: Well Nourished, Calm Eyes: Yes: WNL HENT: Yes: WNL Neck: Yes: WNL Cardiovascular: Yes: Pulse Irregular, S1, S2 Respiratory: Yes: Wheezes (BILATERAL INSPIRATORY AND EXPIRATORY WHEEZES) Gastrointestinal: Yes: Normal Bowel Sounds, Soft Extremities: Yes: WNL Edema: Yes Labs: CBC, BMP 07/20/17 06:40 07/20/17 06:40 INR, PTT INR 4.62 (0.82-1.09) H* D 07/20/17 06:40 Assessment/Plan IMP COPD /ASTHMA EXACERBATION CHF MVR RECENT/NL CORONARIES PERMANENT AF H/O VTE HTN/PULMONARY HTN LLL OPACITY LIKELY PARTIAL ATELECTASIS LLL LEFT IJ PHLEBITIS O2 BRONCHODILATORS A/C PER INR DIURETICS IV STEROIDS INCREASE TO Q6H BRONCHODILATORS CHEST PT MUCOMYST F/U CHEST CT OUTPATIENT DR YE Problem List - Problems (1) COPD (chronic obstructive pulmonary disease) with chronic bronchitis Code(s): J44.9 - CHRONIC OBSTRUCTIVE PULMONARY DISEASE, UNSPECIFIED (2) Acute asthma exacerbation Code(s): J45.901 - UNSPECIFIED ASTHMA WITH (ACUTE) EXACERBATION Qualifiers: (3) Anxiety and depression Code(s): F41.9 - ANXIETY DISORDER, UNSPECIFIED F32.9 - MAJOR DEPRESSIVE DISORDER, SINGLE EPISODE, UNSPECIFIED (4) Mitral valve replaced Code(s): Z95.2 - PRESENCE OF PROSTHETIC HEART VALVE
--- NOTE | 2017-07-20 12:34 | PN ---
Progress Note, Physician Chief Complaint: AWAKE ALERT FEELING BETTER MILD RESP DISTRESS - Current Medication List Current Medications: Active Medications Acetaminophen (Tylenol -) 650 mg PO Q6H PRN PRN Reason: PAIN Last Admin: 07/14/17 22:30 Dose: 650 mg Acetylcysteine (Mucomyst 20 Oral / Inh Use Only*) 200 mg NEB QIDR [facility] Last Admin: 07/20/17 12:15 Dose: 200 mg Albuterol Sulfate (Ventolin 0.083% Nebulizer Soln -) 1 amp NEB QIDR [facility] Last Admin: 07/20/17 12:15 Dose: 1 amp Aspirin (Asa -) 81 mg PO DAILY [facility] Last Admin: 07/20/17 09:21 Dose: 81 mg Budesonide (Pulmicort 0.25 Mg Nebulizer -) 1 amp NEB BID [facility] Last Admin: 07/20/17 10:14 Dose: 1 amp Calcium Carbonate (Calcium Carbonate -) 650 mg PO DAILY [facility] Last Admin: 07/20/17 09:53 Dose: 650 mg Diltiazem HCl (Cardizem Cd -) 360 mg PO DAILY [facility] Last Admin: 07/20/17 09:20 Dose: 360 mg Furosemide (Lasix -) 40 mg PO DAILY [facility] Last Admin: 07/20/17 09:21 Dose: 40 mg Guaifenesin (Diabetic Tussin Dm -) 5 ml PO Q4H PRN PRN Reason: COUGH Last Admin: 07/20/17 01:38 Dose: 5 ml Insulin Aspart (Novolog Vial Sliding Scale -) 1 vial SQ ACHS [facility]ESS[facility] PRN Reason: Protocol Last Admin: 07/20/17 11:43 Dose: 2 units Insulin Detemir (Levemir Vial) 10 units SQ AM [facility] Last Admin: 07/20/17 06:32 Dose: 10 units Methylprednisolone Sodium Succinate (Solu-Medrol -) 40 mg IVPB Q6H-IV BLESSING Potassium Chloride (K-Dur -) 20 meq PO DAILY [facility] Last Admin: 07/20/17 09:21 Dose: 20 meq Ranitidine HCl (Zantac -) 150 mg PO DAILY [facility] Last Admin: 07/20/17 09:21 Dose: 150 mg Senna (Senna -) 1 tab PO DAILY [facility] Last Admin: 07/20/17 09:21 Dose: 1 tab Warfarin Sodium (Coumadin -) 4 mg PO MoWeFr@1800 [facility] Last Admin: 07/18/17 17:13 Dose: 4 mg Warfarin Sodium (Coumadin -) 6 mg PO SuTuThSa@1800 [facility] Last Admin: 07/19/17 17:01 Dose: 6 mg - Objective Vital Signs: Vital Signs Temperature 98.2 F 07/20/17 10:00 Pulse Rate 89 07/20/17 10:00 Respiratory Rate 20 07/20/17 10:00 Blood Pressure 128/71 07/20/17 10:00 O2 Sat by Pulse Oximetry (%) 100 07/20/17 09:00 Constitutional: Yes: Mild Distress Eyes: Yes: WNL HENT: Yes: WNL Neck: Yes: WNL Cardiovascular: Yes: Pulse Irregular Respiratory: Yes: On Nasal O2, Poor Air Entry Gastrointestinal: Yes: WNL Genitourinary: Yes: WNL Musculoskeletal: Yes: Muscle Weakness Extremities: Yes: WNL Edema: Yes Edema: LLE: Trace, RLE: Trace Peripheral Pulses WNL: Yes Integumentary: Yes: WNL Wound/Incision: Yes: Clean/Dry Neurological: Yes: WNL ...Motor Strength: WNL Psychiatric: Yes: WNL Labs: CBC, BMP 07/20/17 06:40 07/20/17 06:40 INR, PTT INR 4.62 (0.82-1.09) H* D 07/20/17 06:40 Problem List - Problems (1) Asthma attack Code(s): J45.901 - UNSPECIFIED ASTHMA WITH (ACUTE) EXACERBATION (2) CHF (congestive heart failure) Code(s): I50.9 - HEART FAILURE, UNSPECIFIED Qualifiers: (3) COPD (chronic obstructive pulmonary disease) with chronic bronchitis Code(s): J44.9 - CHRONIC OBSTRUCTIVE PULMONARY DISEASE, UNSPECIFIED (4) Mitral valve replaced Code(s): Z95.2 - PRESENCE OF PROSTHETIC HEART VALVE (5) S/P MVR (mitral valve replacement) Code(s): Z95.2 - PRESENCE OF PROSTHETIC HEART VALVE (6) Acute asthma exacerbation Code(s): J45.901 - UNSPECIFIED ASTHMA WITH (ACUTE) EXACERBATION Qualifiers: (7) Acute exacerbation of CHF (congestive heart failure) Code(s): I50.9 - HEART FAILURE, UNSPECIFIED Qualifiers: Congestive heart failure type: diastolic Qualified Code(s): I50.33 - Acute on chronic diastolic (congestive) heart failure; I50.33 - Acute on chronic diastolic (congestive) heart failure; I50.33 - Acute on chronic diastolic (congestive) heart failure; I50.33 - Acute on chronic diastolic ( congestive) heart failure Assessment/Plan COUMADIN ADJUSTED TO 4MG TONIGHT, RECHECK INR IN AM RESUME COUMADIN SCHEDULE TOMORROW JESSICA CXR REVIEWED PULM EVAL, IMPROVING OOB TO CHAIR PT HOME WITH NURSEAID VS SNF
[2017-07-20] MEDS ORDERED: WARFARIN NA 2 MG TABLET (UD) PO ONE (18:00)
--- NOTE | 2017-07-20 20:59 | PN ---
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 - Current Medication List Current Medications: Active Medications Acetaminophen (Tylenol -) 650 mg PO Q6H PRN PRN Reason: PAIN Last Admin: 07/14/17 22:30 Dose: 650 mg Acetylcysteine (Mucomyst 20 Oral / Inh Use Only*) 200 mg NEB QIDR [facility] Last Admin: 07/20/17 18:55 Dose: 200 mg Albuterol Sulfate (Ventolin 0.083% Nebulizer Soln -) 1 amp NEB QIDR [facility] Last Admin: 07/20/17 18:55 Dose: 1 amp Aspirin (Asa -) 81 mg PO DAILY [facility] Last Admin: 07/20/17 09:21 Dose: 81 mg Budesonide (Pulmicort 0.25 Mg Nebulizer -) 1 amp NEB BID [facility] Last Admin: 07/20/17 10:14 Dose: 1 amp Calcium Carbonate (Calcium Carbonate -) 650 mg PO DAILY [facility] Last Admin: 07/20/17 09:53 Dose: 650 mg Diltiazem HCl (Cardizem Cd -) 360 mg PO DAILY [facility] Last Admin: 07/20/17 09:20 Dose: 360 mg Furosemide (Lasix -) 40 mg PO DAILY [facility] Last Admin: 07/20/17 09:21 Dose: 40 mg Guaifenesin (Diabetic Tussin Dm -) 5 ml PO Q4H PRN PRN Reason: COUGH Last Admin: 07/20/17 01:38 Dose: 5 ml Insulin Aspart (Novolog Vial Sliding Scale -) 1 vial SQ ACHS [facility] PRN Reason: Protocol Last Admin: 07/20/17 17:05 Dose: 2 units Insulin Detemir (Levemir Vial) 10 units SQ AM [facility] Last Admin: 07/20/17 06:32 Dose: 10 units Methylprednisolone Sodium Succinate (Solu-Medrol -) 40 mg IVPB Q6H-IV [facility] Last Admin: 07/20/17 14:17 Dose: 40 mg Potassium Chloride (K-Dur -) 20 meq PO DAILY [facility] Last Admin: 07/20/17 09:21 Dose: 20 meq Ranitidine HCl (Zantac -) 150 mg PO DAILY [facility] Last Admin: 07/20/17 09:21 Dose: 150 mg Senna (Senna -) 1 tab PO DAILY [facility] Last Admin: 07/20/17 09:21 Dose: 1 tab Warfarin Sodium (Coumadin -) 4 mg PO MoWeFr@1800 [facility] Last Admin: 07/18/17 17:13 Dose: 4 mg Warfarin Sodium (Coumadin -) 6 mg PO SuTuThSa@1800 [facility] Last Admin: 07/19/17 17:01 Dose: 6 mg - Objective Vital Signs: Vital Signs Temperature 98.4 F 07/20/17 14:00 Pulse Rate 102 H 07/20/17 14:00 Respiratory Rate 22 07/20/17 14:00 Blood Pressure 124/82 07/20/17 14:00 O2 Sat by Pulse Oximetry (%) 100 07/20/17 09:00 Constitutional: Yes: Well Nourished Eyes: Yes: EOM Intact HENT: Yes: Normocephalic Neck: Yes: Trachea Midline Cardiovascular: Yes: Tachycardia, Murmur Respiratory: Yes: Rales, Tachypnea Gastrointestinal: Yes: Normal Bowel Sounds, Abdomen, Obese ...Rectal Exam: Yes: Deferred Genitourinary: Yes: WNL Breast(s): Yes: WNL Musculoskeletal: Yes: WNL Extremities: Yes: WNL Edema: Yes Integumentary: Yes: WNL Neurological: Yes: WNL, Alert, Oriented Labs: CBC, BMP 07/20/17 06:40 07/20/17 06:40 INR, PTT INR 4.62 (0.82-1.09) H* D 07/20/17 06:40 Problem List - Problems (1) CHF (congestive heart failure) Code(s): I50.9 - HEART FAILURE, UNSPECIFIED Qualifiers: (2) COPD (chronic obstructive pulmonary disease) with chronic bronchitis Code(s): J44.9 - CHRONIC OBSTRUCTIVE PULMONARY DISEASE, UNSPECIFIED (3) Mitral valve replaced Code(s): Z95.2 - PRESENCE OF PROSTHETIC HEART VALVE (4) S/P MVR (mitral valve replacement) Code(s): Z95.2 - PRESENCE OF PROSTHETIC HEART VALVE (5) Acute asthma exacerbation Code(s): J45.901 - UNSPECIFIED ASTHMA WITH (ACUTE) EXACERBATION Qualifiers: (6) Acute exacerbation of CHF (congestive heart failure) Code(s): I50.9 - HEART FAILURE, UNSPECIFIED Qualifiers: Congestive heart failure type: diastolic Qualified Code(s): I50.33 - Acute on chronic diastolic (congestive) heart failure; I50.33 - Acute on chronic diastolic (congestive) heart failure; I50.33 - Acute on chronic diastolic (congestive) heart failure; I50.33 - Acute on chronic diastolic ( congestive) heart failure Assessment/Plan Current Active Problems Asthma attack (Acute) CHF (congestive heart failure) (Acute) COPD (chronic obstructive pulmonary disease) with chronic bronchitis (Acute) Internal jugular vein thrombosis (Acute) Mitral valve replaced (Acute) S/P MVR (mitral valve replacement) (Acute) Abnormal Lab Results 07/20/17 07/20/17 07/20/17 06:40 06:40 06:40 WBC 13.5 H RDW 16.8 H PT with INR 52.40 H INR 4.62 H* D BUN 23 H Random Glucose 173 H Calcium 8.1 L Total Protein 5.4 L Albumin 2.7 L Laboratory Results - last 24 hr 07/19/17 07/20/17 07/20/17 21:36 06:31 06:40 WBC 13.5 H RBC 3.62 Hgb 11.0 Hct 33.7 MCV 93.2 MCH 30.4 MCHC 32.6 RDW 16.8 H Plt Count 293 MPV 8.0 PT with INR INR Sodium Potassium Chloride Carbon Dioxide Anion Gap BUN Creatinine Creat Clearance w eGFR POC Glucometer 225 171 Random Glucose Calcium Total Bilirubin AST ALT Alkaline Phosphatase Total Protein Albumin 07/20/17 07/20/17 07/20/17 06:40 06:40 11:13 WBC RBC Hgb Hct MCV MCH MCHC RDW Plt Count MPV PT with INR 52.40 H INR 4.62 H* D Sodium 140 Potassium 4.5 Chloride 104 Carbon Dioxide 27 Anion Gap 9 BUN 23 H Creatinine 0.8 Creat Clearance w eGFR > 60 POC Glucometer 229 Random Glucose 173 H Calcium 8.1 L Total Bilirubin 0.6 D AST 34 ALT 38 Alkaline Phosphatase 86 Total Protein 5.4 L Albumin 2.7 L 07/20/17 16:32 WBC RBC Hgb Hct MCV MCH MCHC RDW Plt Count MPV PT with INR INR Sodium Potassium Chloride Carbon Dioxide Anion Gap BUN Creatinine Creat Clearance w eGFR POC Glucometer 230 Random Glucose Calcium Total Bilirubin AST ALT Alkaline Phosphatase Total Protein Albumin plan: metformin 500mg bid\ levemir 10 units am taper of steroid will follow sugars
[2017-07-21] MEDS: methylPREDNISolone NA SUCC 40 MG/1 ML VIAL IVPB SCH ×4 (02:28→22:54)
[2017-07-21] MEDS: ACETYLCYSTEINE 20% 200MG/ML 4 ML VIAL *FOR ORAL / INH USE ONLY NEB SCH ×4 (06:07→17:46)
[2017-07-21] MEDS: ALBUTEROL SO4 0.083% IH SOL 2.5 MG/3 ML VIAL.NEB. NEB SCH ×4 (06:07→17:47)
[2017-07-21] MEDS: metFORMIN HCL 500 MG TABLET (FP) PO SCH ×2 (06:22→17:08)
[2017-07-21] MEDS: INSULIN SLIDING SCALE (NOVOLOG) 1 VIAL SQ SCH ×4 (06:23→22:54)
[2017-07-21] MEDS: INSULIN DETEMIR 100 UNITS/ML MDV SQ SCH (06:23)
[2017-07-21] MEDS ORDERED: INSULIN (NOVOLOG) ASPART 100 UNITS/ML 10ML VIAL ONE ×3 (06:55→22:04)
--- NOTE | 2017-07-21 08:11 | PN ---
Progress Note, Physician History of Present Illness: C/O WORSENING COUGH AND SOB MORE CONGESTED - Current Medication List Current Medications: Active Medications Acetaminophen (Tylenol -) 650 mg PO Q6H PRN PRN Reason: PAIN Last Admin: 07/14/17 22:30 Dose: 650 mg Acetylcysteine (Mucomyst 20 Oral / Inh Use Only*) 200 mg NEB QIDR [facility] Last Admin: 07/21/17 06:07 Dose: 200 mg Albuterol Sulfate (Ventolin 0.083% Nebulizer Soln -) 1 amp NEB QIDR [facility] Last Admin: 07/21/17 06:07 Dose: 1 amp Aspirin (Asa -) 81 mg PO DAILY [facility] Last Admin: 07/20/17 09:21 Dose: 81 mg Budesonide (Pulmicort 0.25 Mg Nebulizer -) 1 amp NEB BID [facility] Last Admin: 07/20/17 22:40 Dose: 1 amp Calcium Carbonate (Calcium Carbonate -) 650 mg PO DAILY [facility] Last Admin: 07/20/17 09:53 Dose: 650 mg Diltiazem HCl (Cardizem Cd -) 360 mg PO DAILY [facility] Last Admin: 07/20/17 09:20 Dose: 360 mg Furosemide (Lasix -) 40 mg PO DAILY [facility] Last Admin: 07/20/17 09:21 Dose: 40 mg Guaifenesin (Diabetic Tussin Dm -) 5 ml PO Q4H PRN PRN Reason: COUGH Last Admin: 07/20/17 21:08 Dose: 5 ml Insulin Aspart (Novolog Vial Sliding Scale -) 1 vial SQ ACHS [facility] PRN Reason: Protocol Last Admin: 07/21/17 06:23 Dose: 2 units Insulin Detemir (Levemir Vial) 10 units SQ AM [facility] Last Admin: 07/21/17 06:23 Dose: 10 units Metformin HCl (Glucophage -) 500 mg PO BID@0700,1630 [facility] Last Admin: 07/21/17 06:22 Dose: 500 mg Methylprednisolone Sodium Succinate (Solu-Medrol -) 40 mg IVPB Q6H-IV [facility] Last Admin: 07/21/17 02:28 Dose: 40 mg Potassium Chloride (K-Dur -) 20 meq PO DAILY [facility] Last Admin: 07/20/17 09:21 Dose: 20 meq Ranitidine HCl (Zantac -) 150 mg PO DAILY [facility] Last Admin: 07/20/17 09:21 Dose: 150 mg Senna (Senna -) 1 tab PO DAILY [facility] Last Admin: 07/20/17 09:21 Dose: 1 tab Warfarin Sodium (Coumadin -) 4 mg PO MoWeFr@1800 [facility] Last Admin: 07/18/17 17:13 Dose: 4 mg Warfarin Sodium (Coumadin -) 6 mg PO SuTuThSa@1800 [facility] Last Admin: 07/19/17 17:01 Dose: 6 mg - Objective Vital Signs: Vital Signs Temperature 98.2 F 07/21/17 05:30 Pulse Rate 89 07/21/17 05:30 Respiratory Rate 18 07/21/17 05:30 Blood Pressure 160/89 07/21/17 05:30 O2 Sat by Pulse Oximetry (%) 100 07/20/17 21:00 Cardiovascular: Yes: Murmur, S1, S2 Respiratory: Yes: Diminished, Rhonchi Gastrointestinal: Yes: Normal Bowel Sounds, Soft Labs: CBC, BMP 07/20/17 06:40 07/20/17 06:40 INR, PTT INR 4.62 (0.82-1.09) H* D 07/20/17 06:40 Problem List - Problems (1) Internal jugular vein thrombosis Assessment/Plan: ON COUMADIN WITH 1NR HIGH--4 NOT SURE IF SHE HAD CATHETER PREVIOUSLY VASCULAR CARDIO AND HEM CONSULT WILL DISCUSS AC Code(s): I82.C19 - ACUTE EMBOLISM AND THROMBOSIS OF UNSP INTERNAL JUGULAR VEIN Assessment/Plan - Problems (1) Internal jugular vein thrombosis Assessment/Plan: seen by vascular surgeon already on AC keep INR 2.5-3.5 Code(s): I82.C19 - ACUTE EMBOLISM AND THROMBOSIS OF UNSP INTERNAL JUGULAR VEIN (2) S/P MVR (mitral valve replacement) Assessment/Plan: done about 3 weeks ago on AC maintain INR 2.5-3.5 Code(s): Z95.2 - PRESENCE OF PROSTHETIC HEART VALVE (3) CHF (congestive heart failure) Assessment/Plan: on po lasix check cmp today on k dur supplements Code(s): I50.9 - HEART FAILURE, UNSPECIFIED Qualifiers: (4) COPD (chronic obstructive pulmonary disease) with chronic bronchitis Assessment/Plan: iv steroids will taper to bid today continue oxygen bronchodilators Code(s): J44.9 - CHRONIC OBSTRUCTIVE PULMONARY DISEASE, UNSPECIFIED (5) Atrial fibrillation Assessment/Plan: permanent afb cardizem and AC Code(s): I48.91 - UNSPECIFIED ATRIAL FIBRILLATION Qualifiers: Atrial fibrillation type: permanent Qualified Code(s): I48.2 - Chronic atrial fibrillation; I48.2 - Chronic atrial fibrillation; I48.2 - Chronic atrial fibrillation; I48.2 - Chronic atrial fibrillation
--- NOTE | 2017-07-21 09:04 | PN ---
Progress Note, Physician History of Present Illness: seen and examined today in nad. no overnight events. states she feels about the same. - Current Medication List Current Medications: Active Medications Acetaminophen (Tylenol -) 650 mg PO Q6H PRN PRN Reason: PAIN Last Admin: 07/14/17 22:30 Dose: 650 mg Acetylcysteine (Mucomyst 20 Oral / Inh Use Only*) 200 mg NEB QIDR [facility] Last Admin: 07/21/17 06:07 Dose: 200 mg Albuterol Sulfate (Ventolin 0.083% Nebulizer Soln -) 1 amp NEB QIDR [facility] Last Admin: 07/21/17 06:07 Dose: 1 amp Aspirin (Asa -) 81 mg PO DAILY [facility] Last Admin: 07/20/17 09:21 Dose: 81 mg Budesonide (Pulmicort 0.25 Mg Nebulizer -) 1 amp NEB BID [facility] Last Admin: 07/20/17 22:40 Dose: 1 amp Calcium Carbonate (Calcium Carbonate -) 650 mg PO DAILY [facility] Last Admin: 07/20/17 09:53 Dose: 650 mg Diltiazem HCl (Cardizem Cd -) 360 mg PO DAILY [facility] Last Admin: 07/20/17 09:20 Dose: 360 mg Furosemide (Lasix -) 40 mg PO DAILY [facility] Last Admin: 07/20/17 09:21 Dose: 40 mg Guaifenesin (Diabetic Tussin Dm -) 5 ml PO Q4H PRN PRN Reason: COUGH Last Admin: 07/20/17 21:08 Dose: 5 ml Insulin Aspart (Novolog Vial Sliding Scale -) 1 vial SQ ACHS [facility] PRN Reason: Protocol Last Admin: 07/21/17 06:23 Dose: 2 units Insulin Detemir (Levemir Vial) 10 units SQ AM [facility] Last Admin: 07/21/17 06:23 Dose: 10 units Metformin HCl (Glucophage -) 500 mg PO BID@0700,1630 [facility] Last Admin: 07/21/17 06:22 Dose: 500 mg Methylprednisolone Sodium Succinate (Solu-Medrol -) 40 mg IVPB Q6H-IV [facility] Last Admin: 07/21/17 02:28 Dose: 40 mg Potassium Chloride (K-Dur -) 20 meq PO DAILY [facility] Last Admin: 07/20/17 09:21 Dose: 20 meq Ranitidine HCl (Zantac -) 150 mg PO DAILY [facility] Last Admin: 07/20/17 09:21 Dose: 150 mg Senna (Senna -) 1 tab PO DAILY [facility] Last Admin: 07/20/17 09:21 Dose: 1 tab Warfarin Sodium (Coumadin -) 4 mg PO MoWeFr@1800 [facility] Last Admin: 07/18/17 17:13 Dose: 4 mg Warfarin Sodium (Coumadin -) 6 mg PO SuTuThSa@1800 [facility] Last Admin: 07/19/17 17:01 Dose: 6 mg - Objective Vital Signs: Vital Signs Temperature 98.2 F 07/21/17 05:30 Pulse Rate 89 07/21/17 05:30 Respiratory Rate 18 07/21/17 05:30 Blood Pressure 160/89 07/21/17 05:30 O2 Sat by Pulse Oximetry (%) 100 07/20/17 21:00 Constitutional: Yes: No Distress, Calm Eyes: Yes: Conjunctiva Clear, EOM Intact, PERRL HENT: Yes: Atraumatic, Normocephalic Neck: Yes: Supple, Trachea Midline Cardiovascular: Yes: Pulse Irregular, Murmur, S1, S2. No: Bradycardia, Tachycardia, Bruit, JVD, Gallop, Rub, S3, S4, Varicosities Respiratory: Yes: Regular, Cough, Diminished, Rhonchi, Wheezes. No: Rales, SOB Gastrointestinal: Yes: Normal Bowel Sounds, Soft. No: Distention, Tenderness Edema: No Peripheral Pulses WNL: Yes Peripheral Pulses: Left Doralis Pedis: 2+, Right Dorsalis Pedis: 2+ Neurological: Yes: Alert, Oriented Psychiatric: Yes: Alert, Oriented Labs: CBC, BMP 07/20/17 06:40 07/20/17 06:40 INR, PTT INR 4.62 (0.82-1.09) H* D 07/20/17 06:40 - ....Imaging Chest X-ray: Report Reviewed, Image Reviewed EKG: Report Reviewed, Image Reviewed Other: Report Reviewed, Image Reviewed (tele-AFib, HR overall adequately controlled) Assessment/Plan AE COPD Acute on chronic diastolic CHF, mild S/P Mechanical MVR, 2 weeks ago Permanent AF Chronic COPD with exacerbation L IJ thrombus REC: SOB/wheezing-slowly improving but seems slightly worse today -gave an extra dose of IV Lasix yesterday but I/Os not recorded and pt states she did not urinate more than usual -will give extra dose IV again today -monitor bun/creat, electrolytes and replete as needed -pulmonary management of AE COPD -CTA results noted-no pulmonary embolism, no sig change in pleural effusion and atelectasis, no sign of pulm vasc congestion or developing pna Afib HR adequately controlled currently -cont Cardizem 360mg daily -not on bblocker due to severe COPD -Cont warfarin for goal 2.5-3.5 (Afib, MVR), supratherapeutic today, hold warfarin until INR <3.5 HTN-overall adequate, at times above goal -cont current medical regimen and monitor
[2017-07-21] MEDS: SENNOSIDES 8.6MG TABLET (FP) PO SCH (10:12)
[2017-07-21] MEDS: RANITIDINE HCL 150 MG TABLET (FP) PO SCH (10:12)
[2017-07-21] MEDS: CALCIUM CARBONATE 650 MG TABLET PO SCH (10:12)
[2017-07-21] MEDS: FUROSEMIDE 40 MG TABLET (FP) PO SCH (10:12)
[2017-07-21] MEDS: POTASSIUM CHLORIDE TABS 20 MEQ TABLET.ER (FP) PO SCH (10:12)
[2017-07-21] MEDS: ASPIRIN 81 MG CHEWABLE TABLETS PO SCH (10:12)
[2017-07-21] MEDS: BUDESONIDE 0.25 MG/2ML INH SUSP VIAL NEB SCH ×2 (10:15→22:00)
[2017-07-21] MEDS ORDERED: FUROSEMIDE 40 MG/4 ML INJECTABLE VIAL IVPUSH ONE (11:45)
--- NOTE | 2017-07-21 13:02 | PN ---
Progress Note, Physician History of Present Illness: pulmonary alert,less congested,still dyspneic with min exertion - Current Medication List Current Medications: Active Medications Acetaminophen (Tylenol -) 650 mg PO Q6H PRN PRN Reason: PAIN Last Admin: 07/14/17 22:30 Dose: 650 mg Acetylcysteine (Mucomyst 20 Oral / Inh Use Only*) 200 mg NEB QIDR [facility] Last Admin: 07/21/17 11:25 Dose: 200 mg Albuterol Sulfate (Ventolin 0.083% Nebulizer Soln -) 1 amp NEB QIDR [facility] Last Admin: 07/21/17 11:25 Dose: 1 amp Aspirin (Asa -) 81 mg PO DAILY [facility] Last Admin: 07/21/17 10:12 Dose: 81 mg Budesonide (Pulmicort 0.25 Mg Nebulizer -) 1 amp NEB BID [facility] Last Admin: 07/21/17 10:15 Dose: 1 amp Calcium Carbonate (Calcium Carbonate -) 650 mg PO DAILY [facility] Last Admin: 07/21/17 10:12 Dose: 650 mg Diltiazem HCl (Cardizem Cd -) 360 mg PO DAILY [facility] Last Admin: 07/21/17 10:12 Dose: 360 mg Furosemide (Lasix -) 40 mg PO DAILY [facility] Last Admin: 07/21/17 10:12 Dose: 40 mg Guaifenesin (Diabetic Tussin Dm -) 5 ml PO Q4H PRN PRN Reason: COUGH Last Admin: 07/20/17 21:08 Dose: 5 ml Insulin Aspart (Novolog Vial Sliding Scale -) 1 vial SQ ACHS [facility] PRN Reason: Protocol Last Admin: 07/21/17 11:30 Dose: 2 units Insulin Detemir (Levemir Vial) 10 units SQ AM [facility] Last Admin: 07/21/17 06:23 Dose: 10 units Metformin HCl (Glucophage -) 500 mg PO BID@0700,1630 [facility] Last Admin: 07/21/17 06:22 Dose: 500 mg Methylprednisolone Sodium Succinate (Solu-Medrol -) 40 mg IVPB Q6H-IV [facility] Last Admin: 07/21/17 10:12 Dose: 40 mg Potassium Chloride (K-Dur -) 20 meq PO DAILY [facility] Last Admin: 07/21/17 10:12 Dose: 20 meq Ranitidine HCl (Zantac -) 150 mg PO DAILY [facility] Last Admin: 07/21/17 10:12 Dose: 150 mg Senna (Senna -) 1 tab PO DAILY [facility] Last Admin: 07/21/17 10:12 Dose: 1 tab Warfarin Sodium (Coumadin -) 4 mg PO MoWeFr@1800 [facility] Last Admin: 07/18/17 17:13 Dose: 4 mg Warfarin Sodium (Coumadin -) 6 mg PO SuTuThSa@1800 [facility] Last Admin: 07/19/17 17:01 Dose: 6 mg - Objective Vital Signs: Vital Signs Temperature 98.3 F 07/21/17 10:00 Pulse Rate 72 07/21/17 10:15 Respiratory Rate 20 07/21/17 10:00 Blood Pressure 134/63 07/21/17 10:00 O2 Sat by Pulse Oximetry (%) 97 07/21/17 10:15 Constitutional: Yes: Well Nourished, Calm Eyes: Yes: WNL HENT: Yes: Nasal Congestion, Tonsillar Exudate Cardiovascular: Yes: Pulse Irregular, S1, S2 Respiratory: Yes: Wheezes (bilateral wheezes) Gastrointestinal: Yes: Normal Bowel Sounds, Soft Extremities: Yes: WNL Edema: Yes Labs: CBC, BMP - ....Imaging Chest X-ray: Report Reviewed, Image Reviewed (NO CHANGE) Assessment/Plan IMP COPD /ASTHMA EXACERBATION CHF MVR RECENT/NL CORONARIES PERMANENT AF H/O VTE HTN/PULMONARY HTN LLL OPACITY LIKELY PARTIAL ATELECTASIS LLL LEFT IJ PHLEBITIS O2 BRONCHODILATORS A/C PER INR DIURETICS IV STEROIDS SAME DOSE BRONCHODILATORS CHEST PT MUCOMYST F/U CHEST CT OUTPATIENT DR YE Problem List - Problems (1) COPD (chronic obstructive pulmonary disease) with chronic bronchitis Code(s): J44.9 - CHRONIC OBSTRUCTIVE PULMONARY DISEASE, UNSPECIFIED (2) Acute asthma exacerbation Code(s): J45.901 - UNSPECIFIED ASTHMA WITH (ACUTE) EXACERBATION Qualifiers: (3) Anxiety and depression Code(s): F41.9 - ANXIETY DISORDER, UNSPECIFIED F32.9 - MAJOR DEPRESSIVE DISORDER, SINGLE EPISODE, UNSPECIFIED (4) Mitral valve replaced Code(s): Z95.2 - PRESENCE OF PROSTHETIC HEART VALVE
[2017-07-21] MEDS: guaiFENesin/D-M SUGAR-FREE/ACLHOL-FREE 118 ML BOTTLE PO PRN (13:30)
[2017-07-21 18:11] LABS: PROTHROMBIN TIME (PATIENT) 53.1 SEC (9.98-11.88)
[2017-07-21 18:12] LABS: INR 4.83 (0.82-1.09)
[2017-07-21] MEDS: WARFARIN NA 2 MG TABLET (UD) PO SCH (18:35)
[2017-07-22] MEDS: ACETYLCYSTEINE 20% 200MG/ML 4 ML VIAL *FOR ORAL / INH USE ONLY NEB SCH ×4 (00:05→18:28)
[2017-07-22] MEDS: ALBUTEROL SO4 0.083% IH SOL 2.5 MG/3 ML VIAL.NEB. NEB SCH ×2 (00:05→07:11)
[2017-07-22] MEDS: methylPREDNISolone NA SUCC 40 MG/1 ML VIAL IVPB SCH ×4 (04:00→17:18)
[2017-07-22] MEDS: metFORMIN HCL 500 MG TABLET (FP) PO SCH ×2 (06:15→17:18)
[2017-07-22] MEDS: INSULIN DETEMIR 100 UNITS/ML MDV SQ SCH (06:15)
[2017-07-22] MEDS: INSULIN SLIDING SCALE (NOVOLOG) 1 VIAL SQ SCH ×4 (06:19→22:25)
[2017-07-22 07:50] LABS: PROTHROMBIN TIME (PATIENT) 47.1 SEC (9.98-11.88)
[2017-07-22 07:59] LABS: INR 4.28 (0.82-1.09)
--- NOTE | 2017-07-22 08:53 | PN ---
Progress Note, Physician History of Present Illness: C/O WORSENING COUGH AND SOB MORE CONGESTED - Current Medication List Current Medications: Active Medications Acetaminophen (Tylenol -) 650 mg PO Q6H PRN PRN Reason: PAIN Last Admin: 07/14/17 22:30 Dose: 650 mg Acetylcysteine (Mucomyst 20 Oral / Inh Use Only*) 200 mg NEB QIDR [facility] Last Admin: 07/22/17 07:10 Dose: 200 mg Albuterol Sulfate (Ventolin 0.083% Nebulizer Soln -) 1 amp NEB QIDR [facility] Last Admin: 07/22/17 07:11 Dose: 1 amp Aspirin (Asa -) 81 mg PO DAILY [facility] Last Admin: 07/21/17 10:12 Dose: 81 mg Budesonide (Pulmicort 0.25 Mg Nebulizer -) 1 amp NEB BID [facility] Last Admin: 07/21/17 22:00 Dose: Not Given Calcium Carbonate (Calcium Carbonate -) 650 mg PO DAILY [facility] Last Admin: 07/21/17 10:12 Dose: 650 mg Diltiazem HCl (Cardizem Cd -) 360 mg PO DAILY [facility] Last Admin: 07/21/17 10:12 Dose: 360 mg Furosemide (Lasix -) 40 mg PO DAILY [facility] Last Admin: 07/21/17 10:12 Dose: 40 mg Guaifenesin (Diabetic Tussin Dm -) 5 ml PO Q4H PRN PRN Reason: COUGH Last Admin: 07/21/17 13:30 Dose: 5 ml Insulin Aspart (Novolog Vial Sliding Scale -) 1 vial SQ ACHS [facility] PRN Reason: Protocol Last Admin: 07/22/17 06:19 Dose: Not Given Insulin Detemir (Levemir Vial) 10 units SQ AM [facility] Last Admin: 07/22/17 06:15 Dose: 10 units Metformin HCl (Glucophage -) 500 mg PO BID@0700,1630 [facility] Last Admin: 07/22/17 06:15 Dose: 500 mg Methylprednisolone Sodium Succinate (Solu-Medrol -) 40 mg IVPB Q6H-IV [facility] Last Admin: 07/22/17 04:00 Dose: 40 mg Potassium Chloride (K-Dur -) 20 meq PO DAILY [facility] Last Admin: 07/21/17 10:12 Dose: 20 meq Ranitidine HCl (Zantac -) 150 mg PO DAILY [facility] Last Admin: 07/21/17 10:12 Dose: 150 mg Senna (Senna -) 1 tab PO DAILY [facility] Last Admin: 07/21/17 10:12 Dose: 1 tab Warfarin Sodium (Coumadin -) 4 mg PO MoWeFr@1800 [facility] Last Admin: 07/21/17 18:35 Dose: Not Given Warfarin Sodium (Coumadin -) 6 mg PO SuTuThSa@1800 [facility] Last Admin: 07/19/17 17:01 Dose: 6 mg - Objective Vital Signs: Vital Signs Temperature 97.5 F L 07/22/17 06:00 Pulse Rate 88 07/22/17 06:00 Respiratory Rate 20 07/22/17 06:00 Blood Pressure 118/76 07/22/17 06:00 O2 Sat by Pulse Oximetry (%) 98 07/21/17 21:00 Cardiovascular: Yes: Murmur, S1, S2 Respiratory: Yes: Diminished, On Nasal O2, Rhonchi Gastrointestinal: Yes: Normal Bowel Sounds, Soft Labs: CBC, BMP 07/20/17 06:40 07/20/17 06:40 INR, PTT INR 4.28 (0.82-1.09) H* 07/22/17 06:00 Problem List - Problems (1) Internal jugular vein thrombosis Code(s): I82.C19 - ACUTE EMBOLISM AND THROMBOSIS OF UNSP INTERNAL JUGULAR VEIN Assessment/Plan - Problems (1) Internal jugular vein thrombosis Assessment/Plan: seen by vascular surgeon already on AC keep INR 2.5-3.5 Code(s): I82.C19 - ACUTE EMBOLISM AND THROMBOSIS OF UNSP INTERNAL JUGULAR VEIN (2) S/P MVR (mitral valve replacement) Assessment/Plan: done about 3 weeks ago on AC maintain INR 2.5-3.5 Code(s): Z95.2 - PRESENCE OF PROSTHETIC HEART VALVE (3) CHF (congestive heart failure) Assessment/Plan: on po lasix check cmp today on k dur supplements Code(s): I50.9 - HEART FAILURE, UNSPECIFIED Qualifiers: (4) COPD (chronic obstructive pulmonary disease) with chronic bronchitis Assessment/Plan: iv steroids will taper to q 8hrs today continue oxygen bronchodilators Code(s): J44.9 - CHRONIC OBSTRUCTIVE PULMONARY DISEASE, UNSPECIFIED (5) Atrial fibrillation Assessment/Plan: permanent afb cardizem and AC(coumadin) Code(s): I48.91 - UNSPECIFIED ATRIAL FIBRILLATION Qualifiers: Atrial fibrillation type: permanent Qualified Code(s): I48.2 - Chronic atrial fibrillation; I48.2 - Chronic atrial fibrillation; I48.2 - Chronic atrial fibrillation; I48.2 - Chronic atrial fibrillation
--- NOTE | 2017-07-22 09:07 | PN ---
Progress Note, Physician Chief Complaint: sitting up in chair, no distress History of Present Illness: TELE: AF < 100bpm - Current Medication List Current Medications: Active Medications Acetaminophen (Tylenol -) 650 mg PO Q6H PRN PRN Reason: PAIN Last Admin: 07/14/17 22:30 Dose: 650 mg Acetylcysteine (Mucomyst 20 Oral / Inh Use Only*) 200 mg NEB QIDR [facility] Last Admin: 07/22/17 07:10 Dose: 200 mg Albuterol Sulfate (Ventolin 0.083% Nebulizer Soln -) 1 amp NEB QIDR [facility] Last Admin: 07/22/17 07:11 Dose: 1 amp Aspirin (Asa -) 81 mg PO DAILY [facility] Last Admin: 07/21/17 10:12 Dose: 81 mg Budesonide (Pulmicort 0.25 Mg Nebulizer -) 1 amp NEB BID [facility] Last Admin: 07/21/17 22:00 Dose: Not Given Calcium Carbonate (Calcium Carbonate -) 650 mg PO DAILY [facility] Last Admin: 07/21/17 10:12 Dose: 650 mg Diltiazem HCl (Cardizem Cd -) 360 mg PO DAILY [facility] Last Admin: 07/21/17 10:12 Dose: 360 mg Furosemide (Lasix -) 40 mg PO DAILY [facility] Last Admin: 07/21/17 10:12 Dose: 40 mg Guaifenesin (Diabetic Tussin Dm -) 5 ml PO Q4H PRN PRN Reason: COUGH Last Admin: 07/21/17 13:30 Dose: 5 ml Insulin Aspart (Novolog Vial Sliding Scale -) 1 vial SQ ACHS [facility] PRN Reason: Protocol Last Admin: 07/22/17 06:19 Dose: Not Given Insulin Detemir (Levemir Vial) 10 units SQ AM [facility] Last Admin: 07/22/17 06:15 Dose: 10 units Metformin HCl (Glucophage -) 500 mg PO BID@0700,1630 [facility] Last Admin: 07/22/17 06:15 Dose: 500 mg Methylprednisolone Sodium Succinate (Solu-Medrol -) 40 mg IVPB Q6H-IV [facility] Last Admin: 07/22/17 04:00 Dose: 40 mg Potassium Chloride (K-Dur -) 20 meq PO DAILY [facility] Last Admin: 07/21/17 10:12 Dose: 20 meq Ranitidine HCl (Zantac -) 150 mg PO DAILY [facility] Last Admin: 07/21/17 10:12 Dose: 150 mg Senna (Senna -) 1 tab PO DAILY [facility] Last Admin: 07/21/17 10:12 Dose: 1 tab Warfarin Sodium (Coumadin -) 4 mg PO MoWeFr@1800 [facility] Last Admin: 07/21/17 18:35 Dose: Not Given Warfarin Sodium (Coumadin -) 6 mg PO SuTuThSa@1800 [facility] Last Admin: 07/19/17 17:01 Dose: 6 mg - Objective Vital Signs: Vital Signs Temperature 97.5 F L 07/22/17 06:00 Pulse Rate 88 07/22/17 06:00 Respiratory Rate 20 07/22/17 06:00 Blood Pressure 118/76 07/22/17 06:00 O2 Sat by Pulse Oximetry (%) 98 07/21/17 21:00 Constitutional: Yes: Calm Eyes: Yes: Conjunctiva Clear Cardiovascular: Yes: Pulse Irregular Respiratory: Yes: Other (scattered rhonchi) Edema: No Neurological: Yes: Alert Labs: CBC, BMP 07/20/17 06:40 07/20/17 06:40 INR, PTT INR 4.28 (0.82-1.09) H* 07/22/17 06:00 Laboratory Tests 07/20/17 07/22/17 06:40 06:00 WBC 13.5 H Hgb 11.0 Plt Count 293 INR 4.28 H* - ....Imaging EKG: Image Reviewed Assessment/Plan Assessment/Plan AE COPD Acute on chronic diastolic CHF, mild S/P Mechanical MVR, 2 weeks ago Permanent AF Chronic COPD with exacerbation L IJ thrombus REC: SOB/wheezing-slowly improving -Cont PO Lasix, given extra IV dose yesterday. -monitor bun/creat, electrolytes and replete as needed -pulmonary management of AE COPD -CTA results noted-no pulmonary embolism, no sig change in pleural effusion and atelectasis, no sign of pulm vasc congestion or developing pna Afib HR adequately controlled currently -cont Cardizem 360mg daily -not on bblocker due to severe COPD -Cont warfarin for goal 2.5-3.5 (Afib, MVR), supratherapeutic today, hold warfarin until INR <3.5
[2017-07-22] MEDS ORDERED: PT OWN MED DRAWER 7, Y5N ONE ×5 (09:32→19:54)
[2017-07-22] MEDS: POTASSIUM CHLORIDE TABS 20 MEQ TABLET.ER (FP) PO SCH (09:50)
[2017-07-22] MEDS: CALCIUM CARBONATE 650 MG TABLET PO SCH (09:50)
[2017-07-22] MEDS: RANITIDINE HCL 150 MG TABLET (FP) PO SCH (09:50)
[2017-07-22] MEDS: ASPIRIN 81 MG CHEWABLE TABLETS PO SCH (09:50)
[2017-07-22] MEDS: SENNOSIDES 8.6MG TABLET (FP) PO SCH (09:50)
[2017-07-22] MEDS: FUROSEMIDE 40 MG TABLET (FP) PO SCH (09:50)
[2017-07-22] MEDS: BUDESONIDE 0.25 MG/2ML INH SUSP VIAL NEB SCH ×2 (10:50→22:25)
--- NOTE | 2017-07-22 11:17 | PN ---
Progress Note, Physician History of Present Illness: PULMONARY ALERT,OOB-CHAIR,LESS CONGESTED - Current Medication List Current Medications: Active Medications Acetaminophen (Tylenol -) 650 mg PO Q6H PRN PRN Reason: PAIN Last Admin: 07/14/17 22:30 Dose: 650 mg Acetylcysteine (Mucomyst 20 Oral / Inh Use Only*) 200 mg NEB QIDR [facility] Last Admin: 07/22/17 07:10 Dose: 200 mg Albuterol Sulfate (Ventolin 0.083% Nebulizer Soln -) 1 amp NEB Q6H PRN PRN Reason: SHORT OF BREATH/WHEEZING Albuterol/Ipratropium (Duoneb -) 1 amp NEB QIDR [facility] Aspirin (Asa -) 81 mg PO DAILY [facility] Last Admin: 07/22/17 09:50 Dose: 81 mg Budesonide (Pulmicort 0.25 Mg Nebulizer -) 1 amp NEB BID [facility] Last Admin: 07/21/17 22:00 Dose: Not Given Calcium Carbonate (Calcium Carbonate -) 650 mg PO DAILY [facility] Last Admin: 07/22/17 09:50 Dose: 650 mg Diltiazem HCl (Cardizem Cd -) 360 mg PO DAILY [facility] Last Admin: 07/22/17 09:50 Dose: 360 mg Furosemide (Lasix -) 40 mg PO DAILY [facility] Last Admin: 07/22/17 09:50 Dose: 40 mg Guaifenesin (Diabetic Tussin Dm -) 5 ml PO Q4H PRN PRN Reason: COUGH Last Admin: 07/21/17 13:30 Dose: 5 ml Insulin Aspart (Novolog Vial Sliding Scale -) 1 vial SQ ACHS [facility] PRN Reason: Protocol Last Admin: 07/22/17 06:19 Dose: Not Given Insulin Detemir (Levemir Vial) 10 units SQ AM [facility] Last Admin: 07/22/17 06:15 Dose: 10 units Metformin HCl (Glucophage -) 500 mg PO BID@0700,1630 [facility] Last Admin: 07/22/17 06:15 Dose: 500 mg Methylprednisolone Sodium Succinate (Solu-Medrol -) 40 mg IVPB Q8H-IV [facility] Last Admin: 07/22/17 09:50 Dose: 40 mg Montelukast Sodium (Singulair -) 10 mg PO HS [facility] Potassium Chloride (K-Dur -) 20 meq PO DAILY [facility] Last Admin: 07/22/17 09:50 Dose: 20 meq Ranitidine HCl (Zantac -) 150 mg PO DAILY [facility] Last Admin: 07/22/17 09:50 Dose: 150 mg Senna (Senna -) 1 tab PO DAILY [facility] Last Admin: 07/22/17 09:50 Dose: 1 tab Warfarin Sodium (Coumadin -) 4 mg PO MoWeFr@1800 [facility] Last Admin: 07/21/17 18:35 Dose: Not Given Warfarin Sodium (Coumadin -) 6 mg PO SuTuThSa@1800 [facility] Last Admin: 07/19/17 17:01 Dose: 6 mg - Objective Vital Signs: Vital Signs Temperature 97.5 F L 07/22/17 06:00 Pulse Rate 88 07/22/17 06:00 Respiratory Rate 20 07/22/17 06:00 Blood Pressure 118/76 07/22/17 06:00 O2 Sat by Pulse Oximetry (%) 98 07/21/17 21:00 Constitutional: Yes: Well Nourished, Calm Eyes: Yes: WNL HENT: Yes: WNL Neck: Yes: WNL Cardiovascular: Yes: Pulse Irregular, S1, S2 Respiratory: Yes: Wheezes (LESS WHEEZES BILATERALLY) Gastrointestinal: Yes: Normal Bowel Sounds, Soft Extremities: Yes: WNL Edema: Yes Labs: CBC, BMP INR, PTT INR 4.28 (0.82-1.09) H* 07/22/17 06:00 Assessment/Plan IMP COPD /ASTHMA EXACERBATION CHF MVR RECENT/NL CORONARIES PERMANENT AF H/O VTE HTN/PULMONARY HTN LLL OPACITY LIKELY PARTIAL ATELECTASIS LLL LEFT IJ PHLEBITIS O2 BRONCHODILATORS A/C PER INR DIURETICS IV STEROIDS SAME DOSE START TAPER IN AM BRONCHODILATORS CHEST PT MUCOMYST F/U CHEST CT OUTPATIENT DR YE Problem List - Problems (1) COPD (chronic obstructive pulmonary disease) with chronic bronchitis Code(s): J44.9 - CHRONIC OBSTRUCTIVE PULMONARY DISEASE, UNSPECIFIED (2) Acute asthma exacerbation Code(s): J45.901 - UNSPECIFIED ASTHMA WITH (ACUTE) EXACERBATION Qualifiers: (3) Anxiety and depression Code(s): F41.9 - ANXIETY DISORDER, UNSPECIFIED F32.9 - MAJOR DEPRESSIVE DISORDER, SINGLE EPISODE, UNSPECIFIED (4) Mitral valve replaced Code(s): Z95.2 - PRESENCE OF PROSTHETIC HEART VALVE
[2017-07-22] MEDS ORDERED: INSULIN (NOVOLOG) ASPART 100 UNITS/ML 10ML VIAL ONE ×2 (11:43→16:53)
[2017-07-22] MEDS: ALBUTEROL SO4 2.5/IPRATROPIUM 0.5 INH SOL 3 ML VIAL.NEB. NEB SCH ×2 (11:45→18:00)
[2017-07-22] MEDS: guaiFENesin/D-M SUGAR-FREE/ACLHOL-FREE 118 ML BOTTLE PO PRN (22:26)
[2017-07-22] MEDS: MONTELUKAST NA 10 MG TABLET PO SCH (22:26)
[2017-07-23] MEDS: ALBUTEROL SO4 2.5/IPRATROPIUM 0.5 INH SOL 3 ML VIAL.NEB. NEB SCH ×4 (00:06→18:37)
[2017-07-23] MEDS: ACETYLCYSTEINE 20% 200MG/ML 4 ML VIAL *FOR ORAL / INH USE ONLY NEB SCH ×4 (00:07→18:37)
[2017-07-23] MEDS: methylPREDNISolone NA SUCC 40 MG/1 ML VIAL IVPB SCH ×2 (01:20→09:01)
[2017-07-23] MEDS: ALBUTEROL SO4 0.083% IH SOL 2.5 MG/3 ML VIAL.NEB. NEB PRN ×3 (03:17→18:37)
[2017-07-23] MEDS: metFORMIN HCL 500 MG TABLET (FP) PO SCH ×2 (06:30→17:15)
[2017-07-23] MEDS: INSULIN DETEMIR 100 UNITS/ML MDV SQ SCH (06:30)
[2017-07-23] MEDS: INSULIN SLIDING SCALE (NOVOLOG) 1 VIAL SQ SCH ×4 (06:31→21:11)
[2017-07-23] MEDS ORDERED: PT OWN MED DRAWER 7, Y5N ONE ×4 (08:55→22:56)
[2017-07-23] MEDS: guaiFENesin/D-M SUGAR-FREE/ACLHOL-FREE 118 ML BOTTLE PO PRN ×3 (08:58→21:08)
[2017-07-23] MEDS: CALCIUM CARBONATE 650 MG TABLET PO SCH (09:01)
[2017-07-23] MEDS: RANITIDINE HCL 150 MG TABLET (FP) PO SCH (09:01)
[2017-07-23] MEDS: FUROSEMIDE 40 MG TABLET (FP) PO SCH (09:01)
[2017-07-23] MEDS: ASPIRIN 81 MG CHEWABLE TABLETS PO SCH (09:01)
[2017-07-23] MEDS: SENNOSIDES 8.6MG TABLET (FP) PO SCH (09:01)
[2017-07-23] MEDS: POTASSIUM CHLORIDE TABS 20 MEQ TABLET.ER (FP) PO SCH (09:04)
--- NOTE | 2017-07-23 09:04 | PN ---
Progress Note, Physician History of Present Illness: seen and examined today in nad. states she is feeling better. no overnight events. no new complaints. - Current Medication List Current Medications: Active Medications Acetaminophen (Tylenol -) 650 mg PO Q6H PRN PRN Reason: PAIN Last Admin: 07/14/17 22:30 Dose: 650 mg Acetylcysteine (Mucomyst 20 Oral / Inh Use Only*) 200 mg NEB QIDR [facility] Last Admin: 07/23/17 06:03 Dose: 200 mg Albuterol Sulfate (Ventolin 0.083% Nebulizer Soln -) 1 amp NEB Q6H PRN PRN Reason: SHORT OF BREATH/WHEEZING Last Admin: 07/23/17 03:17 Dose: 1 amp Albuterol/Ipratropium (Duoneb -) 1 amp NEB QIDR [facility] Last Admin: 07/23/17 06:03 Dose: 1 amp Aspirin (Asa -) 81 mg PO DAILY [facility] Last Admin: 07/22/17 09:50 Dose: 81 mg Budesonide (Pulmicort 0.25 Mg Nebulizer -) 1 amp NEB BID [facility] Last Admin: 07/22/17 22:25 Dose: 1 amp Calcium Carbonate (Calcium Carbonate -) 650 mg PO DAILY [facility] Last Admin: 07/22/17 09:50 Dose: 650 mg Diltiazem HCl (Cardizem Cd -) 360 mg PO DAILY [facility] Last Admin: 07/22/17 09:50 Dose: 360 mg Furosemide (Lasix -) 40 mg PO DAILY [facility] Last Admin: 07/22/17 09:50 Dose: 40 mg Guaifenesin (Diabetic Tussin Dm -) 5 ml PO Q4H PRN PRN Reason: COUGH Last Admin: 07/23/17 08:58 Dose: 5 ml Insulin Aspart (Novolog Vial Sliding Scale -) 1 vial SQ ACHS [facility] PRN Reason: Protocol Last Admin: 07/23/17 06:31 Dose: Not Given Insulin Detemir (Levemir Vial) 10 units SQ AM [facility] Last Admin: 07/23/17 06:30 Dose: 10 units Metformin HCl (Glucophage -) 500 mg PO BID@0700,1630 [facility] Last Admin: 07/23/17 06:30 Dose: 500 mg Methylprednisolone Sodium Succinate (Solu-Medrol -) 40 mg IVPB Q8H-IV [facility] Last Admin: 07/23/17 01:20 Dose: 40 mg Montelukast Sodium (Singulair -) 10 mg PO HS [facility] Last Admin: 07/22/17 22:26 Dose: 10 mg Potassium Chloride (K-Dur -) 20 meq PO DAILY [facility] Last Admin: 07/22/17 09:50 Dose: 20 meq Ranitidine HCl (Zantac -) 150 mg PO DAILY [facility] Last Admin: 07/22/17 09:50 Dose: 150 mg Senna (Senna -) 1 tab PO DAILY [facility] Last Admin: 07/22/17 09:50 Dose: 1 tab Warfarin Sodium (Coumadin -) 4 mg PO MoWeFr@1800 [facility] Last Admin: 07/21/17 18:35 Dose: Not Given Warfarin Sodium (Coumadin -) 6 mg PO SuTuThSa@1800 [facility] Last Admin: 07/19/17 17:01 Dose: 6 mg - Objective Vital Signs: Vital Signs Temperature 97.9 F 07/23/17 06:00 Pulse Rate 92 H 07/23/17 06:00 Respiratory Rate 18 07/23/17 06:00 Blood Pressure 135/75 07/23/17 06:00 O2 Sat by Pulse Oximetry (%) 99 07/22/17 21:00 Constitutional: Yes: No Distress, Calm Eyes: Yes: Conjunctiva Clear, EOM Intact HENT: Yes: Atraumatic, Normocephalic Neck: Yes: Supple, Trachea Midline Cardiovascular: Yes: Pulse Irregular, Murmur, S1, S2. No: Regular Rate and Rhythm, Bradycardia, Tachycardia, Bruit, JVD, Gallop, Rub, S3, S4, Varicosities Respiratory: Yes: Regular, Cough, Diminished, Rhonchi, Wheezes. No: Rales, SOB Gastrointestinal: Yes: Normal Bowel Sounds, Soft. No: Distention, Tenderness Musculoskeletal: Yes: Muscle Weakness Extremities: Yes: WNL Edema: No Peripheral Pulses WNL: Yes Peripheral Pulses: Left Doralis Pedis: 2+, Right Dorsalis Pedis: 2+ Integumentary: Yes: WNL Neurological: Yes: Alert, Oriented Psychiatric: Yes: Alert, Oriented Labs: CBC, BMP 07/20/17 06:40 07/20/17 06:40 INR, PTT INR 4.28 (0.82-1.09) H* 07/22/17 06:00 - ....Imaging Chest X-ray: Report Reviewed, Image Reviewed EKG: Report Reviewed, Image Reviewed Other: Report Reviewed, Image Reviewed (tele-AFib, episodes of RVR, PVCs, HR currently controlled) Assessment/Plan AE COPD Acute on chronic diastolic CHF, mild S/P Mechanical MVR, 2 weeks ago Permanent AF Chronic COPD with exacerbation L IJ thrombus REC: SOB/wheezing-slowly improving, AE COPD -pulmonary management of AE COPD -cont po Lasix -monitor bun/creat, electrolytes and replete as needed, no labs since 07/20, will order Afib HR adequately controlled currently but still episodes of rvr -likely exacerbated by sob -cont Cardizem 360mg daily -not on bblocker due to severe COPD -Cont warfarin for goal 2.5-3.5 (Afib, MVR), supratherapeutic today, hold warfarin until INR <3.5
--- NOTE | 2017-07-23 09:33 | PN ---
Progress Note, Physician History of Present Illness: C/O WORSENING COUGH AND SOB MORE CONGESTED - Current Medication List Current Medications: Active Medications Acetaminophen (Tylenol -) 650 mg PO Q6H PRN PRN Reason: PAIN Last Admin: 07/14/17 22:30 Dose: 650 mg Acetylcysteine (Mucomyst 20 Oral / Inh Use Only*) 200 mg NEB QIDR [facility] Last Admin: 07/23/17 06:03 Dose: 200 mg Albuterol Sulfate (Ventolin 0.083% Nebulizer Soln -) 1 amp NEB Q6H PRN PRN Reason: SHORT OF BREATH/WHEEZING Last Admin: 07/23/17 03:17 Dose: 1 amp Albuterol/Ipratropium (Duoneb -) 1 amp NEB QIDR [facility] Last Admin: 07/23/17 06:03 Dose: 1 amp Aspirin (Asa -) 81 mg PO DAILY [facility] Last Admin: 07/23/17 09:01 Dose: 81 mg Budesonide (Pulmicort 0.25 Mg Nebulizer -) 1 amp NEB BID [facility] Last Admin: 07/22/17 22:25 Dose: 1 amp Calcium Carbonate (Calcium Carbonate -) 650 mg PO DAILY [facility] Last Admin: 07/23/17 09:01 Dose: 650 mg Diltiazem HCl (Cardizem Cd -) 360 mg PO DAILY [facility] Last Admin: 07/23/17 09:01 Dose: 360 mg Furosemide (Lasix -) 40 mg PO DAILY [facility] Last Admin: 07/23/17 09:01 Dose: 40 mg Guaifenesin (Diabetic Tussin Dm -) 5 ml PO Q4H PRN PRN Reason: COUGH Last Admin: 07/23/17 08:58 Dose: 5 ml Insulin Aspart (Novolog Vial Sliding Scale -) 1 vial SQ ACHS [facility] PRN Reason: Protocol Last Admin: 07/23/17 06:31 Dose: Not Given Insulin Detemir (Levemir Vial) 10 units SQ AM [facility] Last Admin: 07/23/17 06:30 Dose: 10 units Metformin HCl (Glucophage -) 500 mg PO BID@0700,1630 [facility] Last Admin: 07/23/17 06:30 Dose: 500 mg Montelukast Sodium (Singulair -) 10 mg PO HS [facility] Last Admin: 07/22/17 22:26 Dose: 10 mg Potassium Chloride (K-Dur -) 20 meq PO DAILY [facility] Last Admin: 07/23/17 09:04 Dose: 20 meq Prednisone (Deltasone -) 30 mg PO BID [facility] Ranitidine HCl (Zantac -) 150 mg PO DAILY [facility] Last Admin: 07/23/17 09:01 Dose: 150 mg Senna (Senna -) 1 tab PO DAILY [facility] Last Admin: 07/23/17 09:01 Dose: 1 tab Warfarin Sodium (Coumadin -) 4 mg PO MoWeFr@1800 [facility] Last Admin: 07/21/17 18:35 Dose: Not Given Warfarin Sodium (Coumadin -) 6 mg PO SuTuThSa@1800 [facility] Last Admin: 07/19/17 17:01 Dose: 6 mg - Objective Vital Signs: Vital Signs Temperature 98.1 F 07/23/17 09:10 Pulse Rate 119 H 07/23/17 09:10 Respiratory Rate 19 07/23/17 09:10 Blood Pressure 125/61 07/23/17 09:10 O2 Sat by Pulse Oximetry (%) 99 07/22/17 21:00 Cardiovascular: Yes: S1, S2 Respiratory: Yes: Rhonchi Gastrointestinal: Yes: Normal Bowel Sounds, Soft Labs: CBC, BMP 07/20/17 06:40 07/20/17 06:40 INR, PTT INR 4.28 (0.82-1.09) H* 07/22/17 06:00 Problem List - Problems (1) Internal jugular vein thrombosis Code(s): I82.C19 - ACUTE EMBOLISM AND THROMBOSIS OF UNSP INTERNAL JUGULAR VEIN Assessment/Plan - Problems (1) Internal jugular vein thrombosis Assessment/Plan: seen by vascular surgeon already on AC keep INR 2.5-3.5 Code(s): I82.C19 - ACUTE EMBOLISM AND THROMBOSIS OF UNSP INTERNAL JUGULAR VEIN (2) S/P MVR (mitral valve replacement) Assessment/Plan: done about 3 weeks ago on AC maintain INR 2.5-3.5 Code(s): Z95.2 - PRESENCE OF PROSTHETIC HEART VALVE (3) CHF (congestive heart failure) Assessment/Plan: on po lasix check cmp today on k dur supplements Code(s): I50.9 - HEART FAILURE, UNSPECIFIED Qualifiers: (4) COPD (chronic obstructive pulmonary disease) with chronic bronchitis Assessment/Plan: iv steroids will taper to q 8hrs --TO PO TODAY continue oxygen bronchodilators Code(s): J44.9 - CHRONIC OBSTRUCTIVE PULMONARY DISEASE, UNSPECIFIED (5) Atrial fibrillation Assessment/Plan: permanent afb cardizem and AC(coumadin) Code(s): I48.91 - UNSPECIFIED ATRIAL FIBRILLATION Qualifiers: Atrial fibrillation type: permanent Qualified Code(s): I48.2 - Chronic atrial fibrillation; I48.2 - Chronic atrial fibrillation; I48.2 - Chronic atrial fibrillation; I48.2 - Chronic atrial fibrillation
[2017-07-23] MEDS ORDERED: predniSONE 10 MG TABLET (UD) PO SCH (10:00)
[2017-07-23] MEDS: BUDESONIDE 0.25 MG/2ML INH SUSP VIAL NEB SCH ×2 (10:10→22:10)
[2017-07-23 10:46] LABS: BASOPHIL 0.1 % (0-2.0); MCH 30.3 pg (25.7-33.7); MCHC 32.2 g/dl (32.0-36.0); MEAN CELL VOLUME 94.1 fl (80-96); MEAN PLT VOLUME 8.3 fl (7.5-11.1); NEUTROPHILS 92.5 % (42.8-82.8); PLATELET COUNT 207 K/MM3 (134-434); RDW 17.4 % (11.6-15.6); WHITE BLOOD COUNT 21.4 K/mm3 (4.0-10.0)
[2017-07-23 10:59] LABS: INR 3.45 (0.82-1.09)
[2017-07-23 11:01] LABS: ALBUMIN 2.8 g/dl (3.4-5.0); ANION GAP 14 (8-16); CO2 29 mmol/L (21-32); GLUCOSE,RANDOM 220 mg/dL (74-106); MAGNESIUM 2.4 mg/dL (1.8-2.4); SGOT/AST 16 U/L (15-37); SGPT/ALT 28 U/L (12-78)
[2017-07-23 11:02] LABS: ALK PHOS 78 U/L (45-117); BILIRUBIN,TOTAL 0.8 mg/dL (0.2-1.0); TOT PROT 5.5 g/dl (6.4-8.2)
--- NOTE | 2017-07-23 11:39 | PN ---
Progress Note, Physician History of Present Illness: pulmonary alert,still congested,dyspneic with min exertion,+cough - Current Medication List Current Medications: Active Medications Acetaminophen (Tylenol -) 650 mg PO Q6H PRN PRN Reason: PAIN Last Admin: 07/14/17 22:30 Dose: 650 mg Acetylcysteine (Mucomyst 20 Oral / Inh Use Only*) 200 mg NEB QIDR [facility] Last Admin: 07/23/17 06:03 Dose: 200 mg Albuterol Sulfate (Ventolin 0.083% Nebulizer Soln -) 1 amp NEB Q6H PRN PRN Reason: SHORT OF BREATH/WHEEZING Last Admin: 07/23/17 03:17 Dose: 1 amp Albuterol/Ipratropium (Duoneb -) 1 amp NEB QIDR [facility] Last Admin: 07/23/17 06:03 Dose: 1 amp Aspirin (Asa -) 81 mg PO DAILY [facility] Last Admin: 07/23/17 09:01 Dose: 81 mg Budesonide (Pulmicort 0.25 Mg Nebulizer -) 1 amp NEB BID [facility] Last Admin: 07/22/17 22:25 Dose: 1 amp Calcium Carbonate (Calcium Carbonate -) 650 mg PO DAILY [facility] Last Admin: 07/23/17 09:01 Dose: 650 mg Diltiazem HCl (Cardizem Cd -) 360 mg PO DAILY [facility] Last Admin: 07/23/17 09:01 Dose: 360 mg Furosemide (Lasix -) 40 mg PO DAILY [facility] Last Admin: 07/23/17 09:01 Dose: 40 mg Guaifenesin (Diabetic Tussin Dm -) 5 ml PO Q4H PRN PRN Reason: COUGH Last Admin: 07/23/17 08:58 Dose: 5 ml Insulin Aspart (Novolog Vial Sliding Scale -) 1 vial SQ ACHS [facility] PRN Reason: Protocol Last Admin: 07/23/17 06:31 Dose: Not Given Insulin Detemir (Levemir Vial) 10 units SQ AM [facility] Last Admin: 07/23/17 06:30 Dose: 10 units Metformin HCl (Glucophage -) 500 mg PO BID@0700,1630 [facility] Last Admin: 07/23/17 06:30 Dose: 500 mg Montelukast Sodium (Singulair -) 10 mg PO HS [facility] Last Admin: 07/22/17 22:26 Dose: 10 mg Potassium Chloride (K-Dur -) 20 meq PO DAILY [facility] Last Admin: 07/23/17 09:04 Dose: 20 meq Prednisone (Deltasone -) 30 mg PO BID [facility] Ranitidine HCl (Zantac -) 150 mg PO DAILY [facility] Last Admin: 07/23/17 09:01 Dose: 150 mg Senna (Senna -) 1 tab PO DAILY [facility] Last Admin: 07/23/17 09:01 Dose: 1 tab Warfarin Sodium (Coumadin -) 4 mg PO MoWeFr@1800 [facility] Last Admin: 07/21/17 18:35 Dose: Not Given Warfarin Sodium (Coumadin -) 6 mg PO SuTuThSa@1800 [facility] Last Admin: 07/19/17 17:01 Dose: 6 mg - Objective Vital Signs: Vital Signs Temperature 98.1 F 07/23/17 09:10 Pulse Rate 119 H 07/23/17 09:10 Respiratory Rate 19 07/23/17 09:10 Blood Pressure 125/61 07/23/17 09:10 O2 Sat by Pulse Oximetry (%) 99 07/22/17 21:00 Constitutional: Yes: Well Nourished, Calm Eyes: Yes: WNL HENT: Yes: WNL Neck: Yes: WNL Cardiovascular: Yes: Pulse Irregular, S1, S2 Respiratory: Yes: Wheezes (mello wheezes) Gastrointestinal: Yes: Normal Bowel Sounds, Soft Extremities: Yes: WNL Edema: Yes Labs: CBC, BMP 07/23/17 10:05 07/23/17 10:05 INR, PTT INR 3.45 (0.82-1.09) H 07/23/17 10:05 Assessment/Plan IMP COPD /ASTHMA EXACERBATION CHF MVR RECENT/NL CORONARIES PERMANENT AF H/O VTE HTN/PULMONARY HTN LLL OPACITY LIKELY PARTIAL ATELECTASIS LLL LEFT IJ PHLEBITIS O2 BRONCHODILATORS A/C PER INR DIURETICS PREDNISONE 40 BID BRONCHODILATORS CHEST PT MUCOMYST F/U CHEST CT OUTPATIENT DR YE Problem List - Problems (1) COPD (chronic obstructive pulmonary disease) with chronic bronchitis Code(s): J44.9 - CHRONIC OBSTRUCTIVE PULMONARY DISEASE, UNSPECIFIED (2) Acute asthma exacerbation Code(s): J45.901 - UNSPECIFIED ASTHMA WITH (ACUTE) EXACERBATION Qualifiers: (3) Anxiety and depression Code(s): F41.9 - ANXIETY DISORDER, UNSPECIFIED F32.9 - MAJOR DEPRESSIVE DISORDER, SINGLE EPISODE, UNSPECIFIED (4) Mitral valve replaced Code(s): Z95.2 - PRESENCE OF PROSTHETIC HEART VALVE
[2017-07-23] MEDS: DIGOXIN 0.5 MG/2 ML AMPUL IVPUSH SCH ×2 (17:00→21:10)
[2017-07-23] MEDS ORDERED: INSULIN (NOVOLOG) ASPART 100 UNITS/ML 10ML VIAL ONE (20:55)
[2017-07-23] MEDS: predniSONE 20 MG TABLET (UD) PO SCH (21:10)
[2017-07-23] MEDS: MONTELUKAST NA 10 MG TABLET PO SCH (21:10)
[2017-07-24] MEDS: ACETYLCYSTEINE 20% 200MG/ML 4 ML VIAL *FOR ORAL / INH USE ONLY NEB SCH ×5 (00:06→23:01)
[2017-07-24] MEDS: ALBUTEROL SO4 2.5/IPRATROPIUM 0.5 INH SOL 3 ML VIAL.NEB. NEB SCH ×2 (00:06→06:55)
--- NOTE | 2017-07-24 06:11 | PN ---
Progress Note, Physician Chief Complaint: comfortable TELE: AF average rate < 100; rare spikes to 130-140 - Current Medication List Current Medications: Active Medications Acetaminophen (Tylenol -) 650 mg PO Q6H PRN PRN Reason: PAIN Last Admin: 07/14/17 22:30 Dose: 650 mg Acetylcysteine (Mucomyst 20 Oral / Inh Use Only*) 200 mg NEB QIDR [facility] Last Admin: 07/24/17 00:06 Dose: 200 mg Albuterol Sulfate (Ventolin 0.083% Nebulizer Soln -) 1 amp NEB Q6H PRN PRN Reason: SHORT OF BREATH/WHEEZING Last Admin: 07/23/17 18:37 Dose: 1 amp Albuterol/Ipratropium (Duoneb -) 1 amp NEB QIDR [facility] Last Admin: 07/24/17 00:06 Dose: 1 amp Aspirin (Asa -) 81 mg PO DAILY [facility] Last Admin: 07/23/17 09:01 Dose: 81 mg Budesonide (Pulmicort 0.25 Mg Nebulizer -) 1 amp NEB BID [facility] Last Admin: 07/23/17 22:10 Dose: 1 amp Calcium Carbonate (Calcium Carbonate -) 650 mg PO DAILY [facility] Last Admin: 07/23/17 09:01 Dose: 650 mg Digoxin (Lanoxin -) 0.125 mg PO DAILY [facility] Diltiazem HCl (Cardizem Cd -) 360 mg PO DAILY [facility] Last Admin: 07/23/17 09:01 Dose: 360 mg Furosemide (Lasix -) 40 mg PO DAILY [facility] Last Admin: 07/23/17 09:01 Dose: 40 mg Guaifenesin (Diabetic Tussin Dm -) 5 ml PO Q4H PRN PRN Reason: COUGH Last Admin: 07/23/17 21:08 Dose: 5 ml Insulin Aspart (Novolog Vial Sliding Scale -) 1 vial SQ ACHS [facility] PRN Reason: Protocol Last Admin: 07/23/17 21:11 Dose: Not Given Insulin Detemir (Levemir Vial) 10 units SQ AM [facility] Last Admin: 07/23/17 06:30 Dose: 10 units Metformin HCl (Glucophage -) 500 mg PO BID@0700,1630 [facility] Last Admin: 07/23/17 17:15 Dose: 500 mg Montelukast Sodium (Singulair -) 10 mg PO HS [facility] Last Admin: 07/23/17 21:10 Dose: 10 mg Potassium Chloride (K-Dur -) 20 meq PO DAILY [facility] Last Admin: 07/23/17 09:04 Dose: 20 meq Prednisone (Deltasone -) 40 mg PO BID [facility] Last Admin: 07/23/17 21:10 Dose: 40 mg Ranitidine HCl (Zantac -) 150 mg PO DAILY [facility] Last Admin: 07/23/17 09:01 Dose: 150 mg Senna (Senna -) 1 tab PO DAILY [facility] Last Admin: 07/23/17 09:01 Dose: 1 tab Warfarin Sodium (Coumadin -) 4 mg PO [email or web address] [facility] Last Admin: 07/21/17 18:35 Dose: Not Given Warfarin Sodium (Coumadin -) 6 mg PO [email or web address] [facility] Last Admin: 07/19/17 17:01 Dose: 6 mg - Objective Vital Signs: Vital Signs Temperature 97.7 F 07/24/17 01:46 Pulse Rate 88 07/24/17 01:46 Respiratory Rate 18 07/24/17 01:46 Blood Pressure 120/53 07/24/17 01:46 O2 Sat by Pulse Oximetry (%) 98 07/23/17 22:00 Constitutional: Yes: No Distress Cardiovascular: Yes: Pulse Irregular Respiratory: Yes: Other (rhonchi) Edema: No Neurological: Yes: Alert Labs: CBC, BMP 07/23/17 10:05 07/23/17 10:05 INR, PTT INR 3.45 (0.82-1.09) H 07/23/17 10:05 Laboratory Tests 07/24/17 07/24/17 07/24/17 06:00 06:00 06:00 WBC 20.5 H Hct 35.5 Plt Count 165 D INR 2.79 H Potassium 4.4 Creatinine 0.7 D - ....Imaging EKG: Image Reviewed Assessment/Plan Assessment/Plan AE COPD Acute on chronic diastolic CHF, mild S/P Mechanical MVR, 2 weeks ago Permanent AF Chronic COPD with exacerbation L IJ thrombus REC: SOB/wheezing-slowly improving, AE COPD -pulmonary management of AE COPD -cont po Lasix -monitor bun/creat, electrolytes and replete as needed, no labs since 07/20, will order Afib HR adequately controlled currently but still episodes of rvr -likely exacerbated by sob -cont Cardizem 360mg daily -Can try adding Bystolic (B1 selective) -Cont warfarin for goal 2.5-3.5
[2017-07-24] MEDS: INSULIN SLIDING SCALE (NOVOLOG) 1 VIAL SQ SCH ×4 (06:25→21:53)
[2017-07-24] MEDS: metFORMIN HCL 500 MG TABLET (FP) PO SCH ×2 (06:26→17:09)
[2017-07-24] MEDS: INSULIN DETEMIR 100 UNITS/ML MDV SQ SCH (06:26)
[2017-07-24 07:23] LABS: BASOPHIL 0.1 % (0-2.0); MCH 30.5 pg (25.7-33.7); MCHC 32.3 g/dl (32.0-36.0); MEAN CELL VOLUME 94.6 fl (80-96); MEAN PLT VOLUME 8.5 fl (7.5-11.1); NEUTROPHILS 92.9 % (42.8-82.8); PLATELET COUNT 165 K/MM3 (134-434); RDW 17.5 % (11.6-15.6); WHITE BLOOD COUNT 20.5 K/mm3 (4.0-10.0)
[2017-07-24 07:31] LABS: INR 2.79 (0.82-1.09); PROTHROMBIN TIME (PATIENT) 31.5 SEC (9.98-11.88)
[2017-07-24 07:56] LABS: ALBUMIN 2.7 g/dl (3.4-5.0); ANION GAP 9 (8-16); CO2 33 mmol/L (21-32); GLUCOSE,RANDOM 147 mg/dL (74-106)
[2017-07-24 08:01] LABS: ALK PHOS 73 U/L (45-117); BILIRUBIN,TOTAL 0.9 mg/dL (0.2-1.0); CALCIUM 7.8 mg/dL (8.5-10.1); CREATININE 0.7 mg/dL (0.55-1.02); SGOT/AST 10 U/L (15-37); SGPT/ALT 25 U/L (12-78); TOT PROT 5.2 g/dl (6.4-8.2)
--- NOTE | 2017-07-24 08:44 | DS ---
Physical Examination Vital Signs: Vital Signs Temperature 97.7 F 07/24/17 06:00 Pulse Rate 84 07/24/17 06:00 Respiratory Rate 18 07/24/17 06:00 Blood Pressure 145/52 07/24/17 06:00 O2 Sat by Pulse Oximetry (%) 98 07/23/17 22:00 Cardiovascular: Yes: Pulse Irregular, S1, S2 Respiratory: Yes: Diminished, Rhonchi, Other (MUCH IMPROVED) Gastrointestinal: Yes: Normal Bowel Sounds, Soft Labs: CBC, BMP 07/24/17 06:00 07/24/17 06:00 Discharge Summary Reason For Visit: COPD,CHF,ASTHMA ATTACK Current Active Problems Asthma attack (Acute) CHF (congestive heart failure) (Acute) COPD (chronic obstructive pulmonary disease) with chronic bronchitis (Acute) Internal jugular vein thrombosis (Acute) Mitral valve replaced (Acute) S/P MVR (mitral valve replacement) (Acute) Hospital Course: Patient is a 76 year old female with a significant past medical history of AFib( on coumadin), CHF, mitral insufficiency, hypertension, hypothyroidism, asthma, COPD, and osteoarthritis who presents to the ED with complaints of shortness of breath for 7 hours. Patient reports getting discharged from [facility] yesterday for prolonged admission for cardiac evaluation. As per patient's daughter patient has been has experiencing intermittent episodes of wheezing and SOB during her hospitalization. Patients daughter reports patient continued to wheeze with SOB after returning home. Patients was was admitted to [facility] for congestive heart failure and asthma exacerbation. Denies nausea, vomiting. Denies fever, chills. Denies any other symptoms. Allergies: Ampicillin, Codeine. Social history: No smoking. No alcohol. No illicit Drugs. Surgical history: Tubal Ligation PMD: Dr. 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 No: Diabetes Mellitus - Past Surgical History Past Surgical History: Yes: Tubal Ligation, Valve Replacement - Assessment/Plan - Problems (1) Internal jugular vein thrombosis Assessment/Plan: seen by vascular surgeon already on AC keep INR 2.5-3.5 Code(s): I82.C19 - ACUTE EMBOLISM AND THROMBOSIS OF UNSP INTERNAL JUGULAR VEIN (2) S/P MVR (mitral valve replacement) Assessment/Plan: done about 3 weeks ago on AC maintain INR 2.5-3.5 Code(s): Z95.2 - PRESENCE OF PROSTHETIC HEART VALVE (3) CHF (congestive heart failure) Assessment/Plan: on po lasix check cmp today on k dur supplements Code(s): I50.9 - HEART FAILURE, UNSPECIFIED Qualifiers: (4) COPD (chronic obstructive pulmonary disease) with chronic bronchitis Assessment/Plan: iv steroids will taper to q 8hrs --ON PO 40 BID AND TAPER continue oxygen bronchodilators Code(s): J44.9 - CHRONIC OBSTRUCTIVE PULMONARY DISEASE, UNSPECIFIED (5) Atrial fibrillation Assessment/Plan: permanent afb cardizem and AC(coumadin) Code(s): I48.91 - UNSPECIFIED ATRIAL FIBRILLATION Qualifiers: Atrial fibrillation type: permanent Qualified Code(s): I48.2 - Chronic atrial fibrillation; I48.2 - Chronic atrial fibrillation; I48.2 - Chronic atrial fibrillation; I48.2 - Chronic atrial fibrillation D/W PT REGARDING SNF--SHE WILL CONSIDER Condition: Improved - Instructions Diet, Activity, Other Instructions: prednisone 40mg po 2 x daily for 2 days then 20mg po 2 x daily for 2 days then 20mg po daily untill evaluated by your doctor FU with PMD in one week for INR check goal iNR 2.5-3.5 Referrals: Joey Hernandez MD [Primary Care Provider] - 1 Week Disposition: HOME - Home Medications Comprehensive Discharge Medication List: Ambulatory Orders Acetaminophen [Tylenol] 650 mg PO BID 07/12/17 Albuterol 2.5/Ipratropium 0.5 [Duoneb -] 1 neb NEB Q4H 07/12/17 Aspirin [ASA -] 81 mg PO DAILY 07/12/17 Budesonide [Pulmicort Flexhaler] 90 mcg IH BID 07/12/17 Famotidine [Pepcid] 20 mg PO DAILY 07/12/17 Furosemide [Lasix] 40 mg PO DAILY 07/12/17 Potassium Chloride 20 meq PO DAILY 07/12/17 Sennosides [Senna] 17.2 mg PO DAILY 07/12/17 Diltiazem HCl [Diltiazem 24Hr Cd] 180 mg PO DAILY #30 tab MDD 1 07/18/17 Furosemide [Lasix -] 40 mg PO DAILY tablet 07/18/17 Insulin (Levemir) [Levemir Vial] 10 units SQ AM ml 07/18/17 Potassium Chloride [K-Dur -] 20 meq PO DAILY #14 tab MDD 1 07/18/17 Warfarin Na [Coumadin -] 6 mg PO SuTuThSa@1800 #30 tablet MDD 1 07/18/17 Warfarin Sodium [Coumadin] 4 mg PO ASDIR #20 tab MDD 1 07/18/17 Prednisone [Deltasone -] 10 mg PO ASDIR #100 tab 07/24/17
[2017-07-24] MEDS: BUDESONIDE 0.25 MG/2ML INH SUSP VIAL NEB SCH ×2 (09:24→22:05)
[2017-07-24] MEDS ORDERED: PT OWN MED DRAWER 7, Y5N ONE ×3 (09:41→22:00)
[2017-07-24] MEDS: CALCIUM CARBONATE 650 MG TABLET PO SCH (09:46)
[2017-07-24] MEDS: predniSONE 20 MG TABLET (UD) PO SCH ×2 (09:46→21:48)
[2017-07-24] MEDS: DIGOXIN 0.125 MG TABLET (FP) PO SCH (09:47)
[2017-07-24] MEDS: ASPIRIN 81 MG CHEWABLE TABLETS PO SCH (09:47)
[2017-07-24] MEDS: POTASSIUM CHLORIDE TABS 20 MEQ TABLET.ER (FP) PO SCH (09:47)
[2017-07-24] MEDS: SENNOSIDES 8.6MG TABLET (FP) PO SCH (09:47)
[2017-07-24] MEDS: FUROSEMIDE 40 MG TABLET (FP) PO SCH (09:48)
[2017-07-24] MEDS: RANITIDINE HCL 150 MG TABLET (FP) PO SCH (09:48)
[2017-07-24] MEDS: ALBUTEROL SO4 0.083% IH SOL 2.5 MG/3 ML VIAL.NEB. NEB PRN ×3 (11:30→23:01)
[2017-07-24] MEDS: NEBIVOLOL 2.5 MG TABLET (FP) PO SCH (12:20)
--- NOTE | 2017-07-24 12:42 | PN ---
Progress Note (short form) - Note Progress Note: OOB to chair. Breathing feels "tight" today. No CP. (+) congested cough. (+) BAL. Intake & Output 07/21/17 07/22/17 07/23/17 07/24/17 23:59 23:59 23:59 23:59 Intake Total 970 260 210 25 Balance 970 260 210 25 Weight 192 lb 4 oz 192 lb 12.8 oz 194 lb Last Vital Signs Temp Pulse Resp BP Pulse Ox 98.2 F 96 H 20 117/69 99 07/24/17 09:35 07/24/17 09:47 07/24/17 09:35 07/24/17 09:35 07/24/17 09:24 Active Medications Acetaminophen (Tylenol -) 650 mg PO Q6H PRN PRN Reason: PAIN Last Admin: 07/14/17 22:30 Dose: 650 mg Acetylcysteine (Mucomyst 20 Oral / Inh Use Only*) 200 mg NEB QIDR [facility] Last Admin: 07/24/17 11:10 Dose: 200 mg Albuterol Sulfate (Ventolin 0.083% Nebulizer Soln -) 1 amp NEB Q6H PRN PRN Reason: SHORT OF BREATH/WHEEZING Last Admin: 07/24/17 11:30 Dose: 1 amp Aspirin (Asa -) 81 mg PO DAILY [facility] Last Admin: 07/24/17 09:47 Dose: 81 mg Budesonide (Pulmicort 0.25 Mg Nebulizer -) 1 amp NEB BID [facility] Last Admin: 07/24/17 09:24 Dose: 1 amp Calcium Carbonate (Calcium Carbonate -) 650 mg PO DAILY [facility] Last Admin: 07/24/17 09:46 Dose: 650 mg Digoxin (Lanoxin -) 0.125 mg PO DAILY [facility] Last Admin: 07/24/17 09:47 Dose: 0.125 mg Diltiazem HCl (Cardizem Cd -) 360 mg PO DAILY [facility] Last Admin: 07/24/17 09:48 Dose: 360 mg Furosemide (Lasix -) 40 mg PO DAILY [facility] Last Admin: 07/24/17 09:48 Dose: 40 mg Guaifenesin (Diabetic Tussin Dm -) 5 ml PO Q4H PRN PRN Reason: COUGH Last Admin: 07/23/17 21:08 Dose: 5 ml Insulin Aspart (Novolog Vial Sliding Scale -) 1 vial SQ [facility] PRN Reason: Protocol Last Admin: 07/24/17 12:20 Dose: Not Given Insulin Detemir (Levemir Vial) 10 units SQ AM [facility] Last Admin: 07/24/17 06:26 Dose: 10 units Metformin HCl (Glucophage -) 500 mg PO BID@0700,1630 [facility] Last Admin: 07/24/17 06:26 Dose: 500 mg Montelukast Sodium (Singulair -) 10 mg PO HS [facility] Last Admin: 07/23/17 21:10 Dose: 10 mg Nebivolol (Bystolic -) 2.5 mg PO DAILY [facility] Last Admin: 07/24/17 12:20 Dose: 2.5 mg Potassium Chloride (K-Dur -) 20 meq PO DAILY [facility] Last Admin: 07/24/17 09:47 Dose: 20 meq Prednisone (Deltasone -) 40 mg PO BID [facility] Last Admin: 07/24/17 09:46 Dose: 40 mg Ranitidine HCl (Zantac -) 150 mg PO DAILY [facility] Last Admin: 07/24/17 09:48 Dose: 150 mg Senna (Senna -) 1 tab PO DAILY [facility] Last Admin: 07/24/17 09:47 Dose: 1 tab Warfarin Sodium (Coumadin -) 3 mg PO DAILY@1800 [facility] Constitutional: Yes: Mildly tachypneic at rest Eyes: Yes: WNL HENT: Yes: WNL Neck: Yes: WNL Cardiovascular: Yes: Pulse Irregular, S1, S2 Respiratory: Yes: Bilateral expiratory Wheezes and rhonchi Gastrointestinal: Yes: Normal Bowel Sounds, Soft Extremities: Yes: WNL Edema: Yes Labs: Laboratory Results - last 24 hr 07/23/17 07/23/17 07/23/17 12:14 17:13 21:07 WBC RBC Hgb Hct MCV MCH MCHC RDW Plt Count MPV Neutrophils % Lymphocytes % Monocytes % Eosinophils % Basophils % PT with INR INR Sodium Potassium Chloride Carbon Dioxide Anion Gap BUN Creatinine Creat Clearance w eGFR POC Glucometer 306 203 148 Random Glucose Calcium Total Bilirubin AST ALT Alkaline Phosphatase Total Protein Albumin 07/24/17 07/24/17 07/24/17 06:00 06:00 06:00 WBC 20.5 H RBC 3.75 Hgb 11.5 Hct 35.5 MCV 94.6 MCH 30.5 MCHC 32.3 RDW 17.5 H Plt Count 165 D MPV 8.5 Neutrophils % 92.9 H Lymphocytes % 1.6 L Monocytes % 5.4 Eosinophils % 0.0 Basophils % 0.1 PT with INR 31.50 H INR 2.79 H Sodium 139 Potassium 4.4 Chloride 97 L Carbon Dioxide 33 H Anion Gap 9 BUN 27 H Creatinine 0.7 D Creat Clearance w eGFR > 60 POC Glucometer Random Glucose 147 H D Calcium 7.8 L Total Bilirubin 0.9 AST 10 L D ALT 25 Alkaline Phosphatase 73 Total Protein 5.2 L Albumin 2.7 L 07/24/17 07/24/17 06:24 11:29 WBC RBC Hgb Hct MCV MCH MCHC RDW Plt Count MPV Neutrophils % Lymphocytes % Monocytes % Eosinophils % Basophils % PT with INR INR Sodium Potassium Chloride Carbon Dioxide Anion Gap BUN Creatinine Creat Clearance w eGFR POC Glucometer 144 171 Random Glucose Calcium Total Bilirubin AST ALT Alkaline Phosphatase Total Protein Albumin Problem List - Problems (1) COPD (chronic obstructive pulmonary disease) with chronic bronchitis Code(s): J44.9 - CHRONIC OBSTRUCTIVE PULMONARY DISEASE, UNSPECIFIED (2) Acute asthma exacerbation Code(s): J45.901 - UNSPECIFIED ASTHMA WITH (ACUTE) EXACERBATION Qualifiers: (3) Anxiety and depression Code(s): F41.9 - ANXIETY DISORDER, UNSPECIFIED F32.9 - MAJOR DEPRESSIVE DISORDER, SINGLE EPISODE, UNSPECIFIED (4) Mitral valve replaced Code(s): Z95.2 - PRESENCE OF PROSTHETIC HEART VALVE Assessment/Plan COPD /ASTHMA EXACERBATION CHF MVR RECENT/NL CORONARIES PERMANENT AF H/O VTE HTN/PULMONARY HTN LLL OPACITY LIKELY PARTIAL ATELECTASIS LLL LEFT IJ PHLEBITIS PREDNISONE BID : SHOULD BE ADEQUATE STEROID AMOUNT FOR NOW O2 NEEDED BRONCHODILATORS A/C PER INR DIURETICS BRONCHODILATORS CHEST PT MUCOMYST F/U CHEST CT OUTPATIENT OOB TO CHAIR AND AMBULATE TOLERATED DR EAST
[2017-07-24] MEDS: WARFARIN NA 3 MG TABLET PO SCH (17:12)
[2017-07-24] MEDS ORDERED: INSULIN (NOVOLOG) ASPART 100 UNITS/ML 10ML VIAL ONE (21:37)
[2017-07-24] MEDS: MONTELUKAST NA 10 MG TABLET PO SCH (21:48)
[2017-07-24] MEDS: guaiFENesin/D-M SUGAR-FREE/ACLHOL-FREE 118 ML BOTTLE PO PRN (21:54)
[2017-07-25] MEDS: guaiFENesin/D-M SUGAR-FREE/ACLHOL-FREE 118 ML BOTTLE PO PRN ×2 (05:47→09:46)
[2017-07-25] MEDS: INSULIN SLIDING SCALE (NOVOLOG) 1 VIAL SQ SCH ×4 (06:10→21:26)
[2017-07-25] MEDS: INSULIN DETEMIR 100 UNITS/ML MDV SQ SCH (06:11)
[2017-07-25] MEDS: metFORMIN HCL 500 MG TABLET (FP) PO SCH ×2 (06:12→17:05)
[2017-07-25] MEDS: ALBUTEROL SO4 0.083% IH SOL 2.5 MG/3 ML VIAL.NEB. NEB PRN ×4 (06:16→23:02)
[2017-07-25] MEDS: ACETYLCYSTEINE 20% 200MG/ML 4 ML VIAL *FOR ORAL / INH USE ONLY NEB SCH ×4 (06:16→23:01)
--- NOTE | 2017-07-25 08:21 | DS ---
Physical Examination Vital Signs: Vital Signs Temperature 98.1 F 07/25/17 05:52 Pulse Rate 82 07/25/17 05:52 Respiratory Rate 20 07/25/17 05:52 Blood Pressure 138/83 07/25/17 05:52 O2 Sat by Pulse Oximetry (%) 99 07/24/17 22:00 Findings/Remarks: INTERMITTENT WHEEZING Cardiovascular: Yes: Regular Rate and Rhythm Respiratory: Yes: On Nasal O2, Wheezes Gastrointestinal: Yes: Normal Bowel Sounds, Soft Labs: CBC, BMP 07/24/17 06:00 07/24/17 06:00 Discharge Summary Reason For Visit: COPD,CHF,ASTHMA ATTACK Current Active Problems Asthma attack (Acute) CHF (congestive heart failure) (Acute) COPD (chronic obstructive pulmonary disease) with chronic bronchitis (Acute) Internal jugular vein thrombosis (Acute) Mitral valve replaced (Acute) S/P MVR (mitral valve replacement) (Acute) Hospital Course: Hospital Course: Patient is a 76 year old female with a significant past medical history of AFib( on coumadin), CHF, mitral insufficiency, hypertension, hypothyroidism, asthma, COPD, and osteoarthritis who presents to the ED with complaints of shortness of breath for 7 hours. Patient reports getting discharged from [facility] yesterday for prolonged admission for cardiac evaluation. As per patient's daughter patient has been has experiencing intermittent episodes of wheezing and SOB during her hospitalization. Patients daughter reports patient continued to wheeze with SOB after returning home. Patients was was admitted to [place] for congestive heart failure and asthma exacerbation. Denies nausea, vomiting. Denies fever, chills. Denies any other symptoms. Allergies: Ampicillin, Codeine. Social history: No smoking. No alcohol. No illicit Drugs. Surgical history: Tubal Ligation PMD: Dr. 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 No: Diabetes Mellitus - Past Surgical History Past Surgical History: Yes: Tubal Ligation, Valve Replacement - Assessment/Plan - Problems (1) Internal jugular vein thrombosis Assessment/Plan: seen by vascular surgeon already on AC keep INR 2.5-3.5 Code(s): I82.C19 - ACUTE EMBOLISM AND THROMBOSIS OF UNSP INTERNAL JUGULAR VEIN (2) S/P MVR (mitral valve replacement) Assessment/Plan: done about 3 weeks ago on AC maintain INR 2.5-3.5 Code(s): Z95.2 - PRESENCE OF PROSTHETIC HEART VALVE (3) CHF (congestive heart failure) Assessment/Plan: on po lasix check cmp today on k dur supplements Code(s): I50.9 - HEART FAILURE, UNSPECIFIED Qualifiers: (4) COPD (chronic obstructive pulmonary disease) with chronic bronchitis Assessment/Plan: iv steroids will taper to q 8hrs --ON PO 40 BID AND TAPER continue oxygen bronchodilators Code(s): J44.9 - CHRONIC OBSTRUCTIVE PULMONARY DISEASE, UNSPECIFIED (5) Atrial fibrillation Assessment/Plan: permanent afb cardizem and AC(coumadin) Code(s): I48.91 - UNSPECIFIED ATRIAL FIBRILLATION Qualifiers: Atrial fibrillation type: permanent Qualified Code(s): I48.2 - Chronic atrial fibrillation; I48.2 - Chronic atrial fibrillation; I48.2 - Chronic atrial fibrillation; I48.2 - Chronic atrial fibrillation D/W PT REGARDING SNF--SHE WILL CONSIDER Condition: Improved Condition: Improved - Instructions Diet, Activity, Other Instructions: prednisone 40mg po 2 x daily for 2 days then 20mg po 2 x daily for 2 days then 20mg po daily untill evaluated by your doctor FU with PMD in one week for INR check goal iNR 2.5-3.5 Referrals: Joey Hernandez MD [Primary Care Provider] - 1 Week Disposition: HOME - Home Medications Comprehensive Discharge Medication List: Ambulatory Orders Acetaminophen [Tylenol] 650 mg PO BID 07/12/17 Albuterol 2.5/Ipratropium 0.5 [Duoneb -] 1 neb NEB Q4H 07/12/17 Aspirin [ASA -] 81 mg PO DAILY 07/12/17 Budesonide [Pulmicort Flexhaler] 90 mcg IH BID 07/12/17 Famotidine [Pepcid] 20 mg PO DAILY 07/12/17 Furosemide [Lasix] 40 mg PO DAILY 07/12/17 Potassium Chloride 20 meq PO DAILY 07/12/17 Sennosides [Senna] 17.2 mg PO DAILY 07/12/17 Diltiazem HCl [Diltiazem 24Hr Cd] 180 mg PO DAILY #30 tab MDD 1 07/18/17 Furosemide [Lasix -] 40 mg PO DAILY tablet 07/18/17 Insulin (Levemir) [Levemir Vial] 10 units SQ AM ml 07/18/17 Potassium Chloride [K-Dur -] 20 meq PO DAILY #14 tab MDD 1 07/18/17 Warfarin Na [Coumadin -] 6 mg PO SuTuThSa@1800 #30 tablet MDD 1 07/18/17 Warfarin Sodium [Coumadin] 4 mg PO ASDIR #20 tab MDD 1 07/18/17 Prednisone [Deltasone -] 10 mg PO ASDIR #100 tab 07/24/17
--- NOTE | 2017-07-25 08:38 | PN ---
Progress Note, Physician Chief Complaint: sitting up, no distress TELE: AF with average rate of 80bpm - Current Medication List Current Medications: Active Medications Acetaminophen (Tylenol -) 650 mg PO Q6H PRN PRN Reason: PAIN Last Admin: 07/14/17 22:30 Dose: 650 mg Acetylcysteine (Mucomyst 20 Oral / Inh Use Only*) 200 mg NEB QIDR [facility] Last Admin: 07/25/17 06:16 Dose: 200 mg Albuterol Sulfate (Ventolin 0.083% Nebulizer Soln -) 1 amp NEB Q6H PRN PRN Reason: SHORT OF BREATH/WHEEZING Last Admin: 07/25/17 06:16 Dose: 1 amp Albuterol/Ipratropium (Duoneb -) 1 amp NEB QIDR BLESS[facility] Aspirin (Asa -) 81 mg PO DAILY [facility] Last Admin: 07/24/17 09:47 Dose: 81 mg Budesonide (Pulmicort 0.25 Mg Nebulizer -) 1 amp NEB BID [facility] Last Admin: 07/24/17 22:05 Dose: 1 amp Calcium Carbonate (Calcium Carbonate -) 650 mg PO DAILY [facility] Last Admin: 07/24/17 09:46 Dose: 650 mg Digoxin (Lanoxin -) 0.125 mg PO DAILY [facility] Last Admin: 07/24/17 09:47 Dose: 0.125 mg Diltiazem HCl (Cardizem Cd -) 360 mg PO DAILY [facility] Last Admin: 07/24/17 09:48 Dose: 360 mg Furosemide (Lasix -) 40 mg PO DAILY [facility] Last Admin: 07/24/17 09:48 Dose: 40 mg Guaifenesin (Diabetic Tussin Dm -) 5 ml PO Q4H PRN PRN Reason: COUGH Last Admin: 07/25/17 05:47 Dose: 5 ml Insulin Aspart (Novolog Vial Sliding Scale -) 1 vial SQ ACHS [facility] PRN Reason: Protocol Last Admin: 07/25/17 06:10 Dose: Not Given Insulin Detemir (Levemir Vial) 10 units SQ AM [facility] Last Admin: 07/25/17 06:11 Dose: 10 units Metformin HCl (Glucophage -) 500 mg PO BID@0700,1630 [facility] Last Admin: 07/25/17 06:12 Dose: 500 mg Montelukast Sodium (Singulair -) 10 mg PO HS [facility] Last Admin: 07/24/17 21:48 Dose: 10 mg Nebivolol (Bystolic -) 2.5 mg PO DAILY [facility] Last Admin: 07/24/17 12:20 Dose: 2.5 mg Potassium Chloride (K-Dur -) 20 meq PO DAILY [facility] Last Admin: 07/24/17 09:47 Dose: 20 meq Prednisone (Deltasone -) 40 mg PO BID [facility] Last Admin: 07/24/17 21:48 Dose: 40 mg Ranitidine HCl (Zantac -) 150 mg PO DAILY [facility] Last Admin: 07/24/17 09:48 Dose: 150 mg Senna (Senna -) 1 tab PO DAILY [facility] Last Admin: 07/24/17 09:47 Dose: 1 tab Warfarin Sodium (Coumadin -) 3 mg PO DAILY@1800 [facility] Last Admin: 07/24/17 17:12 Dose: 3 mg - Objective Vital Signs: Vital Signs Temperature 98.1 F 07/25/17 05:52 Pulse Rate 82 07/25/17 05:52 Respiratory Rate 20 07/25/17 05:52 Blood Pressure 138/83 07/25/17 05:52 O2 Sat by Pulse Oximetry (%) 99 07/24/17 22:00 Constitutional: Yes: No Distress Cardiovascular: Yes: Pulse Irregular Respiratory: Yes: Other (scattered rhonchi) Gastrointestinal: Yes: Soft Edema: No Neurological: Yes: Alert Labs: CBC, BMP 07/24/17 06:00 07/24/17 06:00 INR, PTT INR 2.79 (0.82-1.09) H 07/24/17 06:00 - ....Imaging EKG: Image Reviewed Assessment/Plan Assessment/Plan AE COPD Acute on chronic diastolic CHF, mild S/P Mechanical MVR, 2 weeks ago Permanent AF Chronic COPD with exacerbation L IJ thrombus REC: SOB/wheezing-slowly improving, AE COPD -pulmonary management of AE COPD -cont po Lasix -monitor bun/creat, electrolytes and replete as needed, no labs since 07/20, will order Afib HR adequately controlled now with addition of digoxin and Bystolic ( B1 selective) -cont Cardizem 360mg daily -Cont warfarin for goal 2.5-3.5
--- NOTE | 2017-07-25 09:03 | CONS ---
DATE OF RECONSULTATION: 07/25/2017 REFERRING PHYSICIAN: Escobar Perez MD HISTORY OF PRESENT ILLNESS: The patient is a 77-year-old woman who was seen previously with past medical history of atrial fibrillation, anticoagulated on Coumadin, as well as recent mitral valve replacement, underlying COPD, asthma, who was admitted on July 12, 2017, with shortness of breath. Patient has undergone treatment and is currently on Deltasone. Her WBCs are elevated at 20.5. As of July 23 they were 21.4 and as of July 20 13.5. Her hemoglobin is stable at 11.5. She has elevated BUN of 27 and creatinine 0.7. Decreased total protein of 5.2. Albumin of 2.7. She was last seen by Physical Therapy on July 24. Was able to ambulate 85 feet with a rolling walker, light contact guard, independent with transfers. She does state she requires oxygen for ambulation, but it is uncertain. She does not believe she had oxygen at home prior to admission. Patient otherwise has cough at times and dyspnea on exertion but no shortness of breath at rest. No joint arthralgias. No fever or chills. REVIEW OF PAST MEDICAL AND SURGICAL HISTORY: Hypertension, hypothyroidism, osteoarthritis, gastroesophageal reflux disease, atrial fibrillation, anticoagulated on Coumadin with currently therapeutic INR. SOCIAL HISTORY: Lives with her daughter. Elevator-accessible apartment. Premorbidly, she was ambulating without assistive device. Current function as above. REVIEW OF SYSTEMS: No headache. No dizziness, lightheadedness. No blurry vision, double vision that is new. No nausea, vomiting, difficulty swallowing or chewing. No neck or back pain. No other joint pains in the upper or lower extremities. No numbness, tingling in the lower extremities or upper extremities. No significant weight change. PHYSICAL EXAMINATION:General: Patient seen lying in bed. She is in good spirits. No acute distress. No obvious facial weakness. Neck: Supple. Extremities: Without any pitting edema or calf tenderness. Neuromuscular: She is awake, alert, oriented x3. Cranial nerves II-XII grossly intact. Good motor power in the upper and lower extremities with some mild proximal weakness in the hip girdle. Normal sensation to light touch, pinprick. No gross osteoarthritic changes in the upper or lower extremities. OVERALL IMPRESSION: 1. Deficits in mobility, activities of daily living, multifactorial. 2. Deconditioning. 3. Congestive heart failure. 4. Chronic obstructive pulmonary disease exacerbation. 5. History of recent mitral valve replacement. 6. Status post supratherapeutic international normalized ratio with normalization, currently international normalized ratio is therapeutic at 2.79. 7. Leukocytosis, probably due to Deltasone. 8. Chronic atrial fibrillation. 9. Osteoarthritis, possibly in the hands but not limiting. PLAN, SUGGESTIONS: 1. Continue physical therapy. 2. Discharge planning when medically stable. 3. Monitor INR. 4. Follow up with Dr. Gonzales in regards to possible oxygen. Thank you very much for this referral. Patient can probably be discharged home when stable. ANJALI ROJAS M.D. [id number]
[2017-07-25] MEDS ORDERED: BUDESONIDE 0.5 MG/2 ML INH SUSP VIAL NEB ONE ×2 (09:23→22:46)
[2017-07-25] MEDS ORDERED: PT OWN MED DRAWER 7, Y5N ONE ×2 (09:32→19:56)
[2017-07-25] MEDS: BUDESONIDE 0.25 MG/2ML INH SUSP VIAL NEB SCH ×2 (09:40→22:50)
[2017-07-25] MEDS: POTASSIUM CHLORIDE TABS 20 MEQ TABLET.ER (FP) PO SCH (09:47)
[2017-07-25] MEDS: ASPIRIN 81 MG CHEWABLE TABLETS PO SCH (09:47)
[2017-07-25] MEDS: NEBIVOLOL 2.5 MG TABLET (FP) PO SCH (09:47)
[2017-07-25] MEDS: CALCIUM CARBONATE 650 MG TABLET PO SCH (09:47)
[2017-07-25] MEDS: predniSONE 20 MG TABLET (UD) PO SCH ×2 (09:47→21:26)
[2017-07-25] MEDS: DIGOXIN 0.125 MG TABLET (FP) PO SCH (09:47)
[2017-07-25] MEDS: FUROSEMIDE 40 MG TABLET (FP) PO SCH (09:48)
[2017-07-25] MEDS: SENNOSIDES 8.6MG TABLET (FP) PO SCH (09:48)
[2017-07-25] MEDS: RANITIDINE HCL 150 MG TABLET (FP) PO SCH (09:48)
[2017-07-25] MEDS ORDERED: ALBUTEROL SO4 2.5/IPRATROPIUM 0.5 INH SOL 3 ML VIAL.NEB. NEB SCH (12:00)
--- NOTE | 2017-07-25 13:08 | PN ---
Progress Note, Physician History of Present Illness: pulmonary alert,less dyspneic,pn nasal o2 - Current Medication List Current Medications: Active Medications Acetaminophen (Tylenol -) 650 mg PO Q6H PRN PRN Reason: PAIN Last Admin: 07/14/17 22:30 Dose: 650 mg Acetylcysteine (Mucomyst 20 Oral / Inh Use Only*) 200 mg NEB QIDR [facility] Last Admin: 07/25/17 11:53 Dose: 200 mg Albuterol Sulfate (Ventolin 0.083% Nebulizer Soln -) 1 amp NEB Q6H PRN PRN Reason: SHORT OF BREATH/WHEEZING Last Admin: 07/25/17 11:53 Dose: 1 amp Albuterol/Ipratropium (Duoneb -) 1 amp NEB QIDR BLESSING Aspirin (Asa -) 81 mg PO DAILY [facility] Last Admin: 07/25/17 09:47 Dose: 81 mg Budesonide (Pulmicort 0.25 Mg Nebulizer -) 1 amp NEB BID [facility] Last Admin: 07/25/17 09:40 Dose: 1 amp Calcium Carbonate (Calcium Carbonate -) 650 mg PO DAILY [facility] Last Admin: 07/25/17 09:47 Dose: 650 mg Digoxin (Lanoxin -) 0.125 mg PO DAILY [facility] Last Admin: 07/25/17 09:47 Dose: 0.125 mg Diltiazem HCl (Cardizem Cd -) 360 mg PO DAILY [facility] Last Admin: 07/25/17 09:47 Dose: 360 mg Furosemide (Lasix -) 40 mg PO DAILY [facility] Last Admin: 07/25/17 09:48 Dose: 40 mg Guaifenesin (Diabetic Tussin Dm -) 5 ml PO Q4H PRN PRN Reason: COUGH Last Admin: 07/25/17 09:46 Dose: 5 ml Insulin Aspart (Novolog Vial Sliding Scale -) 1 vial SQ ACHS [facility] PRN Reason: Protocol Last Admin: 07/25/17 12:05 Dose: Not Given Insulin Detemir (Levemir Vial) 10 units SQ AM [facility] Last Admin: 07/25/17 06:11 Dose: 10 units Metformin HCl (Glucophage -) 500 mg PO BID@0700,1630 [facility] Last Admin: 07/25/17 06:12 Dose: 500 mg Montelukast Sodium (Singulair -) 10 mg PO HS [facility] Last Admin: 07/24/17 21:48 Dose: 10 mg Nebivolol (Bystolic -) 2.5 mg PO DAILY [facility] Last Admin: 07/25/17 09:47 Dose: 2.5 mg Potassium Chloride (K-Dur -) 20 meq PO DAILY [facility] Last Admin: 07/25/17 09:47 Dose: 20 meq Prednisone (Deltasone -) 40 mg PO BID [facility] Last Admin: 07/25/17 09:47 Dose: 40 mg Ranitidine HCl (Zantac -) 150 mg PO DAILY [facility] Last Admin: 07/25/17 09:48 Dose: 150 mg Senna (Senna -) 1 tab PO DAILY [facility] Last Admin: 07/25/17 09:48 Dose: 1 tab Warfarin Sodium (Coumadin -) 3 mg PO DAILY@1800 [facility] Last Admin: 07/24/17 17:12 Dose: 3 mg - Objective Vital Signs: Vital Signs Temperature 98.5 F 07/25/17 09:51 Pulse Rate 85 07/25/17 09:51 Respiratory Rate 20 07/25/17 09:51 Blood Pressure 110/68 07/25/17 09:51 O2 Sat by Pulse Oximetry (%) 99 07/25/17 09:41 Constitutional: Yes: Well Nourished, Calm Eyes: Yes: WNL HENT: Yes: WNL Neck: Yes: WNL Cardiovascular: Yes: Pulse Irregular, S1, S2 Respiratory: Yes: Wheezes (mello wheezes) Gastrointestinal: Yes: Normal Bowel Sounds, Soft Extremities: Yes: WNL Edema: No Labs: CBC, BMP Assessment/Plan IMP COPD /ASTHMA EXACERBATION CHF MVR RECENT/NL CORONARIES PERMANENT AF H/O VTE HTN/PULMONARY HTN LLL OPACITY LIKELY PARTIAL ATELECTASIS LLL LEFT IJ PHLEBITIS O2 BRONCHODILATORS A/C PER INR DIURETICS PREDNISONE 40 BID BRONCHODILATORS CHEST PT MUCOMYST F/U CHEST CT OUTPATIENT PULMONARY REHAB POST DISCHARGE DR YE Problem List - Problems (1) COPD (chronic obstructive pulmonary disease) with chronic bronchitis Code(s): J44.9 - CHRONIC OBSTRUCTIVE PULMONARY DISEASE, UNSPECIFIED (2) Acute asthma exacerbation Code(s): J45.901 - UNSPECIFIED ASTHMA WITH (ACUTE) EXACERBATION Qualifiers: (3) Anxiety and depression Code(s): F41.9 - ANXIETY DISORDER, UNSPECIFIED F32.9 - MAJOR DEPRESSIVE DISORDER, SINGLE EPISODE, UNSPECIFIED (4) Mitral valve replaced Code(s): Z95.2 - PRESENCE OF PROSTHETIC HEART VALVE
[2017-07-25 17:17] LABS: INR 1.93 (0.82-1.09); PROTHROMBIN TIME (PATIENT) 21.8 SEC (9.98-11.88)
[2017-07-25] MEDS: WARFARIN NA 3 MG TABLET PO SCH (17:26)
[2017-07-25] MEDS: ALBUTEROL SO4 2.5/IPRATROPIUM 0.5 INH SOL 3 ML VIAL.NEB. NEB SCH (21:00)
[2017-07-25] MEDS: MONTELUKAST NA 10 MG TABLET PO SCH (21:26)
[2017-07-26] MEDS: ALBUTEROL SO4 2.5/IPRATROPIUM 0.5 INH SOL 3 ML VIAL.NEB. NEB SCH ×4 (02:56→21:45)
[2017-07-26] MEDS: INSULIN DETEMIR 100 UNITS/ML MDV SQ SCH (06:31)
[2017-07-26] MEDS: INSULIN SLIDING SCALE (NOVOLOG) 1 VIAL SQ SCH ×4 (06:31→21:33)
[2017-07-26] MEDS: metFORMIN HCL 500 MG TABLET (FP) PO SCH ×2 (06:31→17:26)
[2017-07-26] MEDS: ALBUTEROL SO4 0.083% IH SOL 2.5 MG/3 ML VIAL.NEB. NEB PRN ×3 (06:54→18:35)
[2017-07-26] MEDS: ACETYLCYSTEINE 20% 200MG/ML 4 ML VIAL *FOR ORAL / INH USE ONLY NEB SCH ×3 (06:54→18:34)
[2017-07-26 08:14] LABS: INR 2.12 (0.82-1.09); PROTHROMBIN TIME (PATIENT) 23.9 SEC (9.98-11.88)
--- NOTE | 2017-07-26 08:55 | PN ---
Progress Note, Physician Chief Complaint: ambulating, no distress but still coughing and mild SOB History of Present Illness: TELE: AF 80-90, no sig pauses - Current Medication List Current Medications: Active Medications Acetaminophen (Tylenol -) 650 mg PO Q6H PRN PRN Reason: PAIN Last Admin: 07/14/17 22:30 Dose: 650 mg Acetylcysteine (Mucomyst 20 Oral / Inh Use Only*) 200 mg NEB QIDR [facility] Last Admin: 07/26/17 06:54 Dose: 200 mg Albuterol Sulfate (Ventolin 0.083% Nebulizer Soln -) 1 amp NEB Q6H PRN PRN Reason: SHORT OF BREATH/WHEEZING Last Admin: 07/26/17 06:54 Dose: 1 amp Albuterol/Ipratropium (Duoneb -) 1 amp NEB 0300,0900,1500,2100 [facility] Last Admin: 07/26/17 02:56 Dose: Not Given Aspirin (Asa -) 81 mg PO DAILY [facility] Last Admin: 07/25/17 09:47 Dose: 81 mg Budesonide (Pulmicort 0.25 Mg Nebulizer -) 1 amp NEB BID [facility] Last Admin: 07/25/17 22:50 Dose: 1 amp Calcium Carbonate (Calcium Carbonate -) 650 mg PO DAILY [facility] Last Admin: 07/25/17 09:47 Dose: 650 mg Digoxin (Lanoxin -) 0.125 mg PO DAILY [facility] Last Admin: 07/25/17 09:47 Dose: 0.125 mg Diltiazem HCl (Cardizem Cd -) 360 mg PO DAILY [facility] Last Admin: 07/25/17 09:47 Dose: 360 mg Furosemide (Lasix -) 40 mg PO DAILY [facility] Last Admin: 07/25/17 09:48 Dose: 40 mg Guaifenesin (Diabetic Tussin Dm -) 5 ml PO Q4H PRN PRN Reason: COUGH Last Admin: 07/25/17 09:46 Dose: 5 ml Insulin Aspart (Novolog Vial Sliding Scale -) 1 vial SQ ACHS [facility] PRN Reason: Protocol Last Admin: 07/26/17 06:31 Dose: Not Given Insulin Detemir (Levemir Vial) 10 units SQ AM [facility] Last Admin: 07/26/17 06:31 Dose: 10 units Metformin HCl (Glucophage -) 500 mg PO BID@0700,1630 [facility] Last Admin: 07/26/17 06:31 Dose: 500 mg Montelukast Sodium (Singulair -) 10 mg PO HS [facility] Last Admin: 07/25/17 21:26 Dose: 10 mg Nebivolol (Bystolic -) 2.5 mg PO DAILY [facility] Last Admin: 07/25/17 09:47 Dose: 2.5 mg Potassium Chloride (K-Dur -) 20 meq PO DAILY [facility] Last Admin: 07/25/17 09:47 Dose: 20 meq Prednisone (Deltasone -) 40 mg PO BID [facility] Last Admin: 07/25/17 21:26 Dose: 40 mg Ranitidine HCl (Zantac -) 150 mg PO DAILY [facility] Last Admin: 07/25/17 09:48 Dose: 150 mg Senna (Senna -) 1 tab PO DAILY [facility] Last Admin: 07/25/17 09:48 Dose: 1 tab Warfarin Sodium (Coumadin -) 3 mg PO DAILY@1800 [facility] Last Admin: 07/25/17 17:26 Dose: 3 mg - Objective Vital Signs: Vital Signs Temperature 97.9 F 07/26/17 06:00 Pulse Rate 86 07/26/17 06:00 Respiratory Rate 20 07/26/17 06:00 Blood Pressure 139/83 07/26/17 06:00 O2 Sat by Pulse Oximetry (%) 100 07/25/17 21:00 Constitutional: Yes: Calm Cardiovascular: Yes: Pulse Irregular Respiratory: Yes: Other (mild b/l expiratory wheezing) Gastrointestinal: Yes: Soft Edema: Yes Edema: LLE: 1+, RLE: 1+ Neurological: Yes: Alert Labs: CBC, BMP 07/24/17 06:00 07/24/17 06:00 INR, PTT INR 2.12 (0.82-1.09) H 07/26/17 06:00 Laboratory Tests 07/26/17 06:00 INR 2.12 H - ....Imaging EKG: Image Reviewed Assessment/Plan Assessment/Plan AE COPD Acute on chronic diastolic CHF, mild S/P Mechanical MVR, 2 weeks ago Permanent AF Chronic COPD with exacerbation L IJ thrombus REC: SOB/wheezing-slowly improving, AE COPD -pulmonary management of AE COPD -cont po Lasix -monitor bun/creat, electrolytes and replete as needed, no labs since 07/20, will order Afib HR adequately controlled now with addition of digoxin and Bystolic ( B1 selective) -cont Cardizem 360mg daily -Cont warfarin for goal 2.5-3.5
[2017-07-26] MEDS ORDERED: PT OWN MED DRAWER 7, Y5N ONE ×4 (09:14→23:22)
[2017-07-26] MEDS: FUROSEMIDE 40 MG TABLET (FP) PO SCH (09:27)
[2017-07-26] MEDS: RANITIDINE HCL 150 MG TABLET (FP) PO SCH (09:27)
[2017-07-26] MEDS: predniSONE 20 MG TABLET (UD) PO SCH ×2 (09:28→21:26)
[2017-07-26] MEDS: ASPIRIN 81 MG CHEWABLE TABLETS PO SCH (09:28)
[2017-07-26] MEDS: POTASSIUM CHLORIDE TABS 20 MEQ TABLET.ER (FP) PO SCH (09:28)
[2017-07-26] MEDS: SENNOSIDES 8.6MG TABLET (FP) PO SCH (09:28)
[2017-07-26] MEDS: DIGOXIN 0.125 MG TABLET (FP) PO SCH (09:28)
[2017-07-26] MEDS: guaiFENesin/D-M SUGAR-FREE/ACLHOL-FREE 118 ML BOTTLE PO PRN ×2 (09:29→21:26)
[2017-07-26] MEDS: BUDESONIDE 0.25 MG/2ML INH SUSP VIAL NEB SCH ×2 (10:25→22:10)
[2017-07-26] MEDS: NEBIVOLOL 2.5 MG TABLET (FP) PO SCH (11:10)
[2017-07-26] MEDS: CALCIUM CARBONATE 650 MG TABLET PO SCH (11:10)
--- NOTE | 2017-07-26 11:56 | PN ---
Progress Note (short form) - Note Progress Note: Eating lunch. Breathing feels overall better. No CP. Some congested cough, but better. Less BAL. Intake & Output 07/23/17 07/24/17 07/25/17 07/26/17 23:59 23:59 23:59 23:59 Intake Total 210 175 270 Balance 210 175 270 Weight 192 lb 12.8 oz 194 lb 195 lb 196 lb 8 oz Last Vital Signs Temp Pulse Resp BP Pulse Ox 97.8 F 79 20 136/64 97 07/26/17 09:34 07/26/17 11:22 07/26/17 09:34 07/26/17 09:34 07/26/17 11:22 Active Medications Acetaminophen (Tylenol -) 650 mg PO Q6H PRN PRN Reason: PAIN Last Admin: 07/14/17 22:30 Dose: 650 mg Acetylcysteine (Mucomyst 20 Oral / Inh Use Only*) 200 mg NEB QIDR [facility] Last Admin: 07/26/17 11:27 Dose: 200 mg Albuterol Sulfate (Ventolin 0.083% Nebulizer Soln -) 1 amp NEB Q6H PRN PRN Reason: SHORT OF BREATH/WHEEZING Last Admin: 07/26/17 11:27 Dose: 1 amp Albuterol/Ipratropium (Duoneb -) 1 amp NEB 0300,0900,1500,2100 [facility] Last Admin: 07/26/17 10:41 Dose: Not Given Aspirin (Asa -) 81 mg PO DAILY [facility] Last Admin: 07/26/17 09:28 Dose: 81 mg Budesonide (Pulmicort 0.25 Mg Nebulizer -) 1 amp NEB BID [facility] Last Admin: 07/26/17 10:25 Dose: Not Given Calcium Carbonate (Calcium Carbonate -) 650 mg PO DAILY [facility] Last Admin: 07/26/17 11:10 Dose: 650 mg Digoxin (Lanoxin -) 0.125 mg PO DAILY [facility] Last Admin: 07/26/17 09:28 Dose: 0.125 mg Diltiazem HCl (Cardizem Cd -) 360 mg PO DAILY [facility] Last Admin: 07/26/17 09:27 Dose: 360 mg Furosemide (Lasix -) 40 mg PO DAILY [facility] Last Admin: 07/26/17 09:27 Dose: 40 mg Guaifenesin (Diabetic Tussin Dm -) 5 ml PO Q4H PRN PRN Reason: COUGH Last Admin: 07/26/17 09:29 Dose: 5 ml Insulin Aspart (Novolog Vial Sliding Scale -) 1 vial SQ ACHS [facility] PRN Reason: Protocol Last Admin: 07/26/17 11:49 Dose: 3 units Insulin Detemir (Levemir Vial) 10 units SQ AM [facility] Last Admin: 07/26/17 06:31 Dose: 10 units Metformin HCl (Glucophage -) 500 mg PO BID@0700,1630 [facility] Last Admin: 07/26/17 06:31 Dose: 500 mg Montelukast Sodium (Singulair -) 10 mg PO HS [facility] Last Admin: 07/25/17 21:26 Dose: 10 mg Nebivolol (Bystolic -) 2.5 mg PO DAILY [facility] Last Admin: 07/26/17 11:10 Dose: 2.5 mg Potassium Chloride (K-Dur -) 20 meq PO DAILY [facility] Last Admin: 07/26/17 09:28 Dose: 20 meq Prednisone (Deltasone -) 40 mg PO BID [facility] Last Admin: 07/26/17 09:28 Dose: 40 mg Ranitidine HCl (Zantac -) 150 mg PO DAILY [facility] Last Admin: 07/26/17 09:27 Dose: 150 mg Senna (Senna -) 1 tab PO DAILY [facility] Last Admin: 07/26/17 09:28 Dose: 1 tab Warfarin Sodium (Coumadin -) 3 mg PO DAILY@1800 [facility] Last Admin: 07/25/17 17:26 Dose: 3 mg Constitutional: Yes: More comfortable, NAD Eyes: Yes: WNL HENT: Yes: WNL Neck: Yes: WNL Cardiovascular: Yes: Pulse Irregular, S1, S2 Respiratory: Yes: Few scattered expiratory Wheezes and rhonchi : Improving Gastrointestinal: Yes: Normal Bowel Sounds, Soft Extremities: Yes: WNL Edema: Yes Labs: Laboratory Results - last 24 hr 07/25/17 07/25/17 07/25/17 11:54 16:00 17:03 PT with INR 21.80 H INR 1.93 H D POC Glucometer 123 241 07/25/17 07/26/17 07/26/17 21:25 06:00 06:12 PT with INR 23.90 H INR 2.12 H POC Glucometer 182 193 Problem List - Problems (1) COPD (chronic obstructive pulmonary disease) with chronic bronchitis Code(s): J44.9 - CHRONIC OBSTRUCTIVE PULMONARY DISEASE, UNSPECIFIED (2) Acute asthma exacerbation Code(s): J45.901 - UNSPECIFIED ASTHMA WITH (ACUTE) EXACERBATION Qualifiers: (3) Anxiety and depression Code(s): F41.9 - ANXIETY DISORDER, UNSPECIFIED F32.9 - MAJOR DEPRESSIVE DISORDER, SINGLE EPISODE, UNSPECIFIED (4) Mitral valve replaced Code(s): Z95.2 - PRESENCE OF PROSTHETIC HEART VALVE Assessment/Plan COPD /ASTHMA EXACERBATION CHF MVR RECENT/NL CORONARIES PERMANENT AF H/O VTE HTN/PULMONARY HTN LLL OPACITY LIKELY PARTIAL ATELECTASIS LLL LEFT IJ PHLEBITIS PREDNISONE O2 NEEDED BRONCHODILATORS A/C PER INR DIURETICS BRONCHODILATORS CHEST PT MUCOMYST F/U CHEST CT OUTPATIENT OOB TO CHAIR AND AMBULATE TOLERATED NO PULMONARY CONTRAINDICATION FOR D/C DR [facility]
--- NOTE | 2017-07-26 13:13 | PN ---
Progress Note, Physician History of Present Illness: C/O WORSENING COUGH AND SOB MORE CONGESTED - Current Medication List Current Medications: Active Medications Acetaminophen (Tylenol -) 650 mg PO Q6H PRN PRN Reason: PAIN Last Admin: 07/14/17 22:30 Dose: 650 mg Acetylcysteine (Mucomyst 20 Oral / Inh Use Only*) 200 mg NEB QIDR [facility] Last Admin: 07/26/17 11:27 Dose: 200 mg Albuterol Sulfate (Ventolin 0.083% Nebulizer Soln -) 1 amp NEB Q6H PRN PRN Reason: SHORT OF BREATH/WHEEZING Last Admin: 07/26/17 11:27 Dose: 1 amp Albuterol/Ipratropium (Duoneb -) 1 amp NEB 0300,0900,1500,2100 [facility] Last Admin: 07/26/17 10:41 Dose: Not Given Aspirin (Asa -) 81 mg PO DAILY [facility] Last Admin: 07/26/17 09:28 Dose: 81 mg Budesonide (Pulmicort 0.25 Mg Nebulizer -) 1 amp NEB BID [facility] Last Admin: 07/26/17 10:25 Dose: Not Given Calcium Carbonate (Calcium Carbonate -) 650 mg PO DAILY [facility] Last Admin: 07/26/17 11:10 Dose: 650 mg Digoxin (Lanoxin -) 0.125 mg PO DAILY [facility] Last Admin: 07/26/17 09:28 Dose: 0.125 mg Diltiazem HCl (Cardizem Cd -) 360 mg PO DAILY [facility] Last Admin: 07/26/17 09:27 Dose: 360 mg Furosemide (Lasix -) 40 mg PO DAILY [facility] Last Admin: 07/26/17 09:27 Dose: 40 mg Guaifenesin (Diabetic Tussin Dm -) 5 ml PO Q4H PRN PRN Reason: COUGH Last Admin: 07/26/17 09:29 Dose: 5 ml Insulin Aspart (Novolog Vial Sliding Scale -) 1 vial SQ ACHS [facility] PRN Reason: Protocol Last Admin: 07/26/17 11:49 Dose: 3 units Insulin Detemir (Levemir Vial) 10 units SQ AM [facility] Last Admin: 07/26/17 06:31 Dose: 10 units Metformin HCl (Glucophage -) 500 mg PO BID@0700,1630 [facility] Last Admin: 07/26/17 06:31 Dose: 500 mg Montelukast Sodium (Singulair -) 10 mg PO HS [facility] Last Admin: 07/25/17 21:26 Dose: 10 mg Nebivolol (Bystolic -) 2.5 mg PO DAILY [facility] Last Admin: 07/26/17 11:10 Dose: 2.5 mg Potassium Chloride (K-Dur -) 20 meq PO DAILY [facility] Last Admin: 07/26/17 09:28 Dose: 20 meq Prednisone (Deltasone -) 40 mg PO BID [facility] Last Admin: 07/26/17 09:28 Dose: 40 mg Ranitidine HCl (Zantac -) 150 mg PO DAILY [facility] Last Admin: 07/26/17 09:27 Dose: 150 mg Senna (Senna -) 1 tab PO DAILY [facility] Last Admin: 07/26/17 09:28 Dose: 1 tab Warfarin Sodium (Coumadin -) 3 mg PO DAILY@1800 [facility] Last Admin: 07/25/17 17:26 Dose: 3 mg - Objective Vital Signs: Vital Signs Temperature 97.8 F 07/26/17 09:34 Pulse Rate 79 07/26/17 11:22 Respiratory Rate 20 07/26/17 09:34 Blood Pressure 136/64 07/26/17 09:34 O2 Sat by Pulse Oximetry (%) 97 07/26/17 11:22 Cardiovascular: Yes: S1, S2 Respiratory: Yes: Rhonchi, Wheezes Gastrointestinal: Yes: Normal Bowel Sounds, Soft Labs: CBC, BMP 07/24/17 06:00 07/24/17 06:00 INR, PTT INR 2.12 (0.82-1.09) H 07/26/17 06:00 Problem List - Problems (1) Internal jugular vein thrombosis Code(s): I82.C19 - ACUTE EMBOLISM AND THROMBOSIS OF UNSP INTERNAL JUGULAR VEIN Assessment/Plan - Problems (1) Internal jugular vein thrombosis Assessment/Plan: seen by vascular surgeon already on AC keep INR 2.5-3.5 Code(s): I82.C19 - ACUTE EMBOLISM AND THROMBOSIS OF UNSP INTERNAL JUGULAR VEIN (2) S/P MVR (mitral valve replacement) Assessment/Plan: done about 3 weeks ago on AC maintain INR 2.5-3.5 Code(s): Z95.2 - PRESENCE OF PROSTHETIC HEART VALVE (3) CHF (congestive heart failure) Assessment/Plan: on po lasix check cmp today on k dur supplements Code(s): I50.9 - HEART FAILURE, UNSPECIFIED Qualifiers: (4) COPD (chronic obstructive pulmonary disease) with chronic bronchitis Assessment/Plan: iv steroids will taper to q 8hrs --ON PO continue oxygen bronchodilators Code(s): J44.9 - CHRONIC OBSTRUCTIVE PULMONARY DISEASE, UNSPECIFIED (5) Atrial fibrillation Assessment/Plan: permanent afb cardizem and AC(coumadin) Code(s): I48.91 - UNSPECIFIED ATRIAL FIBRILLATION Qualifiers: Atrial fibrillation type: permanent Qualified Code(s): I48.2 - Chronic atrial fibrillation; I48.2 - Chronic atrial fibrillation; I48.2 - Chronic atrial fibrillation; I48.2 - Chronic atrial fibrillation
[2017-07-26] MEDS: WARFARIN NA 3 MG TABLET PO SCH (17:39)
[2017-07-26] MEDS: MONTELUKAST NA 10 MG TABLET PO SCH (21:26)
[2017-07-26] MEDS ORDERED: BUDESONIDE 0.5 MG/2 ML INH SUSP VIAL NEB ONE (21:41)
[2017-07-27] MEDS: ACETYLCYSTEINE 20% 200MG/ML 4 ML VIAL *FOR ORAL / INH USE ONLY NEB SCH ×5 (00:10→23:02)
[2017-07-27] MEDS: ALBUTEROL SO4 0.083% IH SOL 2.5 MG/3 ML VIAL.NEB. NEB PRN ×3 (00:11→23:01)
[2017-07-27] MEDS: ALBUTEROL SO4 2.5/IPRATROPIUM 0.5 INH SOL 3 ML VIAL.NEB. NEB SCH ×2 (03:00→10:34)
[2017-07-27] MEDS: INSULIN DETEMIR 100 UNITS/ML MDV SQ SCH (06:42)
[2017-07-27] MEDS: metFORMIN HCL 500 MG TABLET (FP) PO SCH ×2 (06:42→16:48)
[2017-07-27] MEDS: INSULIN SLIDING SCALE (NOVOLOG) 1 VIAL SQ SCH ×4 (06:43→21:39)
[2017-07-27 07:51] LABS: MCH 30.3 pg (25.7-33.7); MCHC 31.9 g/dl (32.0-36.0); MEAN CELL VOLUME 94.9 fl (80-96); MEAN PLT VOLUME 8.9 fl (7.5-11.1); PLATELET COUNT 124 K/MM3 (134-434); RDW 17.4 % (11.6-15.6); WHITE BLOOD COUNT 19.1 K/mm3 (4.0-10.0)
[2017-07-27 08:18] LABS: INR 2.16 (0.82-1.09); PROTHROMBIN TIME (PATIENT) 24.4 SEC (9.98-11.88)
[2017-07-27 08:21] LABS: ALBUMIN 2.7 g/dl (3.4-5.0); ANION GAP 10 (8-16); CO2 30 mmol/L (21-32)
[2017-07-27 08:27] LABS: ALK PHOS 73 U/L (45-117); BILIRUBIN,TOTAL 0.9 mg/dL (0.2-1.0); CREATININE 0.8 mg/dL (0.55-1.02); GLUCOSE,RANDOM 181 mg/dL (74-106); SGOT/AST 10 U/L (15-37); SGPT/ALT 21 U/L (12-78); TOT PROT 5.4 g/dl (6.4-8.2)
--- NOTE | 2017-07-27 09:04 | PN ---
Progress Note, Physician Chief Complaint: no distress TELE: AF, average rate < 100bpm - Current Medication List Current Medications: Active Medications Acetaminophen (Tylenol -) 650 mg PO Q6H PRN PRN Reason: PAIN Last Admin: 07/14/17 22:30 Dose: 650 mg Acetylcysteine (Mucomyst 20 Oral / Inh Use Only*) 200 mg NEB QIDR [facility] Last Admin: 07/27/17 06:34 Dose: 200 mg Albuterol Sulfate (Ventolin 0.083% Nebulizer Soln -) 1 amp NEB Q6H PRN PRN Reason: SHORT OF BREATH/WHEEZING Last Admin: 07/27/17 06:35 Dose: 1 amp Albuterol/Ipratropium (Duoneb -) 1 amp NEB 0300,0900,1500,2100 [facility] Last Admin: 07/27/17 03:00 Dose: Not Given Aspirin (Asa -) 81 mg PO DAILY [facility] Last Admin: 07/26/17 09:28 Dose: 81 mg Budesonide (Pulmicort 0.25 Mg Nebulizer -) 1 amp NEB BID [facility] Last Admin: 07/26/17 22:10 Dose: 1 amp Calcium Carbonate (Calcium Carbonate -) 650 mg PO DAILY [facility] Last Admin: 07/26/17 11:10 Dose: 650 mg Digoxin (Lanoxin -) 0.125 mg PO DAILY [facility] Last Admin: 07/26/17 09:28 Dose: 0.125 mg Diltiazem HCl (Cardizem Cd -) 360 mg PO DAILY [facility] Last Admin: 07/26/17 09:27 Dose: 360 mg Furosemide (Lasix -) 40 mg PO DAILY [facility] Last Admin: 07/26/17 09:27 Dose: 40 mg Guaifenesin (Diabetic Tussin Dm -) 5 ml PO Q4H PRN PRN Reason: COUGH Last Admin: 07/26/17 21:26 Dose: 5 ml Insulin Aspart (Novolog Vial Sliding Scale -) 1 vial SQ ACHS [facility] PRN Reason: Protocol Last Admin: 07/27/17 06:43 Dose: Not Given Insulin Detemir (Levemir Vial) 10 units SQ AM [facility] Last Admin: 07/27/17 06:42 Dose: 10 units Metformin HCl (Glucophage -) 500 mg PO BID@0700,1630 [facility] Last Admin: 07/27/17 06:42 Dose: 500 mg Montelukast Sodium (Singulair -) 10 mg PO HS [facility] Last Admin: 07/26/17 21:26 Dose: 10 mg Nebivolol (Bystolic -) 2.5 mg PO DAILY [facility] Last Admin: 07/26/17 11:10 Dose: 2.5 mg Potassium Chloride (K-Dur -) 20 meq PO DAILY [facility] Last Admin: 07/26/17 09:28 Dose: 20 meq Prednisone (Deltasone -) 40 mg PO BID [facility] Last Admin: 07/26/17 21:26 Dose: 40 mg Ranitidine HCl (Zantac -) 150 mg PO DAILY [facility] Last Admin: 07/26/17 09:27 Dose: 150 mg Senna (Senna -) 1 tab PO DAILY [facility] Last Admin: 07/26/17 09:28 Dose: 1 tab - Objective Vital Signs: Vital Signs Temperature 98 F 07/27/17 08:31 Pulse Rate 93 H 07/27/17 08:31 Respiratory Rate 20 07/27/17 08:31 Blood Pressure 125/80 07/27/17 08:31 O2 Sat by Pulse Oximetry (%) 97 07/26/17 22:00 Constitutional: Yes: No Distress Cardiovascular: Yes: Pulse Irregular Respiratory: Yes: Rhonchi Gastrointestinal: Yes: Soft, Abdomen, Obese Edema: No Neurological: Yes: Alert Labs: CBC, BMP 07/27/17 05:15 07/27/17 05:15 INR, PTT INR 2.16 (0.82-1.09) H 07/27/17 05:15 Laboratory Tests 07/27/17 07/27/17 07/27/17 05:15 05:15 05:15 WBC 19.1 H Hgb 12.1 Plt Count 124 L D INR 2.16 H Potassium 4.5 Creatinine 0.8 Total Bilirubin 0.9 AST 10 L ALT 21 - ....Imaging EKG: Image Reviewed Assessment/Plan Assessment/Plan AE COPD Acute on chronic diastolic CHF, mild S/P Mechanical MVR, 2 weeks ago Permanent AF Chronic COPD with exacerbation L IJ thrombus REC: SOB/wheezing-slowly improving, AE COPD -pulmonary management of AE COPD -cont po Lasix -monitor bun/creat, electrolytes and replete as needed, no labs since 07/20, will order Afib HR adequately controlled now with addition of digoxin and Bystolic ( B1 selective) -cont Cardizem 360mg daily -Cont warfarin for goal 2.5-3.5, increased coumadin dose today
--- NOTE | 2017-07-27 09:05 | PN ---
Progress Note, Physician History of Present Illness: LESS COUGH AND SOB LESS CONGESTED - Current Medication List Current Medications: Active Medications Acetaminophen (Tylenol -) 650 mg PO Q6H PRN PRN Reason: PAIN Last Admin: 07/14/17 22:30 Dose: 650 mg Acetylcysteine (Mucomyst 20 Oral / Inh Use Only*) 200 mg NEB QIDR [facility] Last Admin: 07/27/17 06:34 Dose: 200 mg Albuterol Sulfate (Ventolin 0.083% Nebulizer Soln -) 1 amp NEB Q6H PRN PRN Reason: SHORT OF BREATH/WHEEZING Last Admin: 07/27/17 06:35 Dose: 1 amp Albuterol/Ipratropium (Duoneb -) 1 amp NEB 0300,0900,1500,2100 [facility] Last Admin: 07/27/17 03:00 Dose: Not Given Aspirin (Asa -) 81 mg PO DAILY [facility] Last Admin: 07/26/17 09:28 Dose: 81 mg Budesonide (Pulmicort 0.25 Mg Nebulizer -) 1 amp NEB BID [facility] Last Admin: 07/26/17 22:10 Dose: 1 amp Calcium Carbonate (Calcium Carbonate -) 650 mg PO DAILY [facility] Last Admin: 07/26/17 11:10 Dose: 650 mg Digoxin (Lanoxin -) 0.125 mg PO DAILY [facility] Last Admin: 07/26/17 09:28 Dose: 0.125 mg Diltiazem HCl (Cardizem Cd -) 360 mg PO DAILY [facility] Last Admin: 07/26/17 09:27 Dose: 360 mg Furosemide (Lasix -) 40 mg PO DAILY [facility] Last Admin: 07/26/17 09:27 Dose: 40 mg Guaifenesin (Diabetic Tussin Dm -) 5 ml PO Q4H PRN PRN Reason: COUGH Last Admin: 07/26/17 21:26 Dose: 5 ml Insulin Aspart (Novolog Vial Sliding Scale -) 1 vial SQ ACHS [facility] PRN Reason: Protocol Last Admin: 07/27/17 06:43 Dose: Not Given Insulin Detemir (Levemir Vial) 10 units SQ AM [facility] Last Admin: 07/27/17 06:42 Dose: 10 units Metformin HCl (Glucophage -) 500 mg PO BID@0700,1630 [facility] Last Admin: 07/27/17 06:42 Dose: 500 mg Montelukast Sodium (Singulair -) 10 mg PO HS [facility] Last Admin: 07/26/17 21:26 Dose: 10 mg Nebivolol (Bystolic -) 2.5 mg PO DAILY [facility] Last Admin: 07/26/17 11:10 Dose: 2.5 mg Potassium Chloride (K-Dur -) 20 meq PO DAILY [facility] Last Admin: 07/26/17 09:28 Dose: 20 meq Prednisone (Deltasone -) 40 mg PO BID [facility] Last Admin: 07/26/17 21:26 Dose: 40 mg Ranitidine HCl (Zantac -) 150 mg PO DAILY [facility] Last Admin: 07/26/17 09:27 Dose: 150 mg Senna (Senna -) 1 tab PO DAILY [facility] Last Admin: 07/26/17 09:28 Dose: 1 tab Warfarin Sodium (Coumadin -) 4 mg PO DAILY@1800 [facility] - Objective Vital Signs: Vital Signs Temperature 98 F 07/27/17 08:31 Pulse Rate 93 H 07/27/17 08:31 Respiratory Rate 20 07/27/17 08:31 Blood Pressure 125/80 07/27/17 08:31 O2 Sat by Pulse Oximetry (%) 97 07/26/17 22:00 Cardiovascular: Yes: S1, S2 Respiratory: Yes: On Nasal O2, Rhonchi Gastrointestinal: Yes: Normal Bowel Sounds, Soft Labs: CBC, BMP 07/27/17 05:15 07/27/17 05:15 INR, PTT INR 2.16 (0.82-1.09) H 07/27/17 05:15 Problem List - Problems (1) Internal jugular vein thrombosis Code(s): I82.C19 - ACUTE EMBOLISM AND THROMBOSIS OF UNSP INTERNAL JUGULAR VEIN Assessment/Plan - Problems (1) Internal jugular vein thrombosis Assessment/Plan: seen by vascular surgeon already on AC keep INR 2.5-3.5 Code(s): I82.C19 - ACUTE EMBOLISM AND THROMBOSIS OF UNSP INTERNAL JUGULAR VEIN (2) S/P MVR (mitral valve replacement) Assessment/Plan: done about 3 weeks ago on AC maintain INR 2.5-3.5 Code(s): Z95.2 - PRESENCE OF PROSTHETIC HEART VALVE (3) CHF (congestive heart failure) Assessment/Plan: on po lasix check cmp today on k dur supplements Code(s): I50.9 - HEART FAILURE, UNSPECIFIED Qualifiers: (4) COPD (chronic obstructive pulmonary disease) with chronic bronchitis Assessment/Plan: iv steroids will taper to q 8hrs --ON PO continue oxygen bronchodilators Code(s): J44.9 - CHRONIC OBSTRUCTIVE PULMONARY DISEASE, UNSPECIFIED (5) Atrial fibrillation Assessment/Plan: permanent afb cardizem and AC(coumadin) Code(s): I48.91 - UNSPECIFIED ATRIAL FIBRILLATION Qualifiers: Atrial fibrillation type: permanent Qualified Code(s): I48.2 - Chronic atrial fibrillation; I48.2 - Chronic atrial fibrillation; I48.2 - Chronic atrial fibrillation; I48.2 - Chronic atrial fibrillation
[2017-07-27 09:23] LABS: PLATELET ESTIMATE DECREASED (NORMAL); TOTAL CELLS COUNTED 100
[2017-07-27 09:24] LABS: METAMYELOCYTE 1 % (0-2)
[2017-07-27] MEDS: guaiFENesin/D-M SUGAR-FREE/ACLHOL-FREE 118 ML BOTTLE PO PRN ×2 (10:00→20:13)
[2017-07-27] MEDS: DIGOXIN 0.125 MG TABLET (FP) PO SCH (10:01)
[2017-07-27] MEDS: FUROSEMIDE 40 MG TABLET (FP) PO SCH (10:01)
[2017-07-27] MEDS: predniSONE 20 MG TABLET (UD) PO SCH ×2 (10:01→21:38)
[2017-07-27] MEDS: RANITIDINE HCL 150 MG TABLET (FP) PO SCH (10:01)
[2017-07-27] MEDS: CALCIUM CARBONATE 650 MG TABLET PO SCH (10:01)
[2017-07-27] MEDS: ASPIRIN 81 MG CHEWABLE TABLETS PO SCH (10:02)
[2017-07-27] MEDS: POTASSIUM CHLORIDE TABS 20 MEQ TABLET.ER (FP) PO SCH (10:02)
[2017-07-27] MEDS: SENNOSIDES 8.6MG TABLET (FP) PO SCH (10:03)
[2017-07-27] MEDS: NEBIVOLOL 2.5 MG TABLET (FP) PO SCH (10:03)
[2017-07-27] MEDS: BUDESONIDE 0.25 MG/2ML INH SUSP VIAL NEB SCH ×2 (10:23→21:56)
--- NOTE | 2017-07-27 11:51 | PN ---
Progress Note (short form) - Note Progress Note: Overall improving. AFib on monitor. No CP. Some congested cough, but better. Less BAL. Intake & Output 07/24/17 07/25/17 07/26/17 07/27/17 23:59 23:59 23:59 23:59 Intake Total 175 270 370 Balance 175 270 370 Weight 194 lb 195 lb 196 lb 8 oz 196 lb 9.6 oz Last Vital Signs Temp Pulse Resp BP Pulse Ox 98 F 93 H 20 125/80 97 07/27/17 08:31 07/27/17 10:23 07/27/17 08:31 07/27/17 08:31 07/27/17 10:23 Active Medications Acetaminophen (Tylenol -) 650 mg PO Q6H PRN PRN Reason: PAIN Last Admin: 07/14/17 22:30 Dose: 650 mg Acetylcysteine (Mucomyst 20 Oral / Inh Use Only*) 200 mg NEB QIDR [facility] Last Admin: 07/27/17 11:28 Dose: Not Given Albuterol/Ipratropium (Duoneb -) 1 amp NEB 0300,0900,1500,2100 [facility] Last Admin: 07/27/17 10:34 Dose: 1 amp Aspirin (Asa -) 81 mg PO DAILY [facility] Last Admin: 07/27/17 10:02 Dose: 81 mg Budesonide (Pulmicort 0.25 Mg Nebulizer -) 1 amp NEB BID [facility] Last Admin: 07/27/17 10:23 Dose: 1 amp Calcium Carbonate (Calcium Carbonate -) 650 mg PO DAILY [facility] Last Admin: 07/27/17 10:01 Dose: 650 mg Digoxin (Lanoxin -) 0.125 mg PO DAILY [facility] Last Admin: 07/27/17 10:01 Dose: 0.125 mg Diltiazem HCl (Cardizem Cd -) 360 mg PO DAILY [facility] Last Admin: 07/27/17 10:01 Dose: 360 mg Furosemide (Lasix -) 40 mg PO DAILY [facility] Last Admin: 07/27/17 10:01 Dose: 40 mg Guaifenesin (Diabetic Tussin Dm -) 5 ml PO Q4H PRN PRN Reason: COUGH Last Admin: 07/27/17 10:00 Dose: 5 ml Insulin Aspart (Novolog Vial Sliding Scale -) 1 vial SQ ACHS [facility] PRN Reason: Protocol Last Admin: 07/27/17 11:37 Dose: Not Given Insulin Detemir (Levemir Vial) 10 units SQ AM [facility] Last Admin: 07/27/17 06:42 Dose: 10 units Metformin HCl (Glucophage -) 500 mg PO BID@0700,1630 [facility] Last Admin: 07/27/17 06:42 Dose: 500 mg Montelukast Sodium (Singulair -) 10 mg PO HS [facility] Last Admin: 07/26/17 21:26 Dose: 10 mg Nebivolol (Bystolic -) 2.5 mg PO DAILY [facility] Last Admin: 07/27/17 10:03 Dose: 2.5 mg Potassium Chloride (K-Dur -) 20 meq PO DAILY [facility] Last Admin: 07/27/17 10:02 Dose: 20 meq Prednisone (Deltasone -) 40 mg PO BID [facility] Last Admin: 07/27/17 10:01 Dose: 40 mg Ranitidine HCl (Zantac -) 150 mg PO DAILY [facility] Last Admin: 07/27/17 10:01 Dose: 150 mg Senna (Senna -) 1 tab PO DAILY [facility] Last Admin: 07/27/17 10:03 Dose: 1 tab Warfarin Sodium (Coumadin -) 5 mg PO DAILY@1800 [facility] Constitutional: Yes: More comfortable, NAD Eyes: Yes: WNL HENT: Yes: WNL Neck: Yes: WNL Cardiovascular: Yes: Pulse Irregular, S1, S2 Respiratory: Yes: Few scattered expiratory Wheezes and rhonchi : Improving Gastrointestinal: Yes: Normal Bowel Sounds, Soft Extremities: Yes: WNL Edema: Yes Labs: Laboratory Results - last 24 hr 07/26/17 07/26/17 07/26/17 11:42 16:55 21:25 WBC RBC Hgb Hct MCV MCH MCHC RDW Plt Count MPV Total Counted Neutrophils % Neutrophils % (Manual) Band Neuts % (Manual) Lymphocytes % Lymphocytes % (Manual) Monocytes % (Manual) Platelet Estimate Platelet Comment PT with INR INR Sodium Potassium Chloride Carbon Dioxide Anion Gap BUN Creatinine Creat Clearance w eGFR POC Glucometer 256 188 210 Random Glucose Calcium Total Bilirubin AST ALT Alkaline Phosphatase Total Protein Albumin 07/27/17 07/27/17 07/27/17 05:15 05:15 05:15 WBC 19.1 H RBC 3.98 Hgb 12.1 Hct 37.8 MCV 94.9 MCH 30.3 MCHC 31.9 L RDW 17.4 H Plt Count 124 L D MPV 8.9 Total Counted 100 Neutrophils % No Result Required. Neutrophils % (Manual) 92 H* Band Neuts % (Manual) 1 Lymphocytes % No Result Required. Lymphocytes % (Manual) 2 L Monocytes % (Manual) 4 Platelet Estimate Decreased Platelet Comment No clumping noted PT with INR 24.40 H INR 2.16 H Sodium 139 Potassium 4.5 Chloride 99 Carbon Dioxide 30 Anion Gap 10 BUN 25 H Creatinine 0.8 Creat Clearance w eGFR > 60 POC Glucometer Random Glucose 181 H D Calcium 8.0 L Total Bilirubin 0.9 AST 10 L ALT 21 Alkaline Phosphatase 73 Total Protein 5.4 L Albumin 2.7 L 07/27/17 06:41 WBC RBC Hgb Hct MCV MCH MCHC RDW Plt Count MPV Total Counted Neutrophils % Neutrophils % (Manual) Band Neuts % (Manual) Lymphocytes % Lymphocytes % (Manual) Monocytes % (Manual) Platelet Estimate Platelet Comment PT with INR INR Sodium Potassium Chloride Carbon Dioxide Anion Gap BUN Creatinine Creat Clearance w eGFR POC Glucometer 194 Random Glucose Calcium Total Bilirubin AST ALT Alkaline Phosphatase Total Protein Albumin Problem List - Problems (1) COPD (chronic obstructive pulmonary disease) with chronic bronchitis Code(s): J44.9 - CHRONIC OBSTRUCTIVE PULMONARY DISEASE, UNSPECIFIED (2) Acute asthma exacerbation Code(s): J45.901 - UNSPECIFIED ASTHMA WITH (ACUTE) EXACERBATION Qualifiers: (3) Anxiety and depression Code(s): F41.9 - ANXIETY DISORDER, UNSPECIFIED F32.9 - MAJOR DEPRESSIVE DISORDER, SINGLE EPISODE, UNSPECIFIED (4) Mitral valve replaced Code(s): Z95.2 - PRESENCE OF PROSTHETIC HEART VALVE Assessment/Plan COPD /ASTHMA EXACERBATION CHF MVR RECENT/NL CORONARIES PERMANENT AF H/O VTE HTN/PULMONARY HTN LLL OPACITY LIKELY PARTIAL ATELECTASIS LLL LEFT IJ PHLEBITIS PREDNISONE TAPER O2 NEEDED BRONCHODILATORS A/C PER INR DIURETICS BRONCHODILATORS CHEST PT MUCOMYST F/U CHEST CT OUTPATIENT OOB TO CHAIR AND AMBULATE TOLERATED NO PULMONARY CONTRAINDICATION FOR D/C PLANNING DR [facility]
[2017-07-27] MEDS: WARFARIN NA 5 MG TABLET (UD) PO SCH (17:02)
[2017-07-27] MEDS ORDERED: WARFARIN NA 2 MG TABLET (UD) PO SCH (18:00)
[2017-07-27] MEDS ORDERED: PT OWN MED DRAWER 7, Y5N ONE ×2 (20:04→21:30)
[2017-07-27] MEDS: MONTELUKAST NA 10 MG TABLET PO SCH (21:38)
[2017-07-27] MEDS: ACETAMINOPHEN 325 MG TABLET (FP) PO PRN (21:39)
--- NOTE | 2017-07-28 05:43 | HOSP ---
Subjective - Review of Symptoms Events since last encounter: Was called to see pt because of a fall. Nurse stated that she walked past the room right before patient fell, and then right after and noticed pt was on the ground. Per pt, she simply slipped and fell. Pt denies any LOC, head trauma, dizziness, confusion, blurry vision. Pt denies pain in the body including hips, shoulders, elbows, knees, and head. Vital signs right after the fall: Temp 98.2, pulse 90, BP 125/92, resp 16, O2 98 % on RA. Pt is AAOx3. Cardiac, lung, abdomen exams unremarkable. Neuro exam unremarkable. No focal neuro deficits. No nystagmus on H-test. PERRL. Strength 5 /5 throughout. Sensation intact throughout. No tenderness of extremities. No bruising/abrasions apparent. Pt is on Coumadin for Afib. Will order Head CT per protocol. Pt encouraged to report any new symptoms should they occur. Julio Sherwood MD PGY-1 Physical Examination Vital Signs: Vital Signs Temperature 98.2 F 07/28/17 05:20 Pulse Rate 90 07/28/17 05:20 Respiratory Rate 16 07/28/17 05:20 Blood Pressure 125/92 07/28/17 05:20 O2 Sat by Pulse Oximetry (%) 98 07/27/17 20:26 Labs: CBC, BMP 07/27/17 05:15 07/27/17 05:15 Visit type - Emergency Visit Emergency Visit: No - New Patient This patient is new to me today: Yes Date on this admission: 07/28/17 - Critical Care Critical Care patient: No
[2017-07-28] MEDS: ACETYLCYSTEINE 20% 200MG/ML 4 ML VIAL *FOR ORAL / INH USE ONLY NEB SCH ×4 (06:10→23:25)
[2017-07-28] MEDS: ALBUTEROL SO4 0.083% IH SOL 2.5 MG/3 ML VIAL.NEB. NEB PRN ×4 (06:10→23:25)
[2017-07-28] MEDS: INSULIN SLIDING SCALE (NOVOLOG) 1 VIAL SQ SCH ×4 (06:28→21:39)
[2017-07-28] MEDS: INSULIN DETEMIR 100 UNITS/ML MDV SQ SCH (06:28)
[2017-07-28] MEDS: metFORMIN HCL 500 MG TABLET (FP) PO SCH ×2 (06:28→18:45)
[2017-07-28] MEDS: ACETAMINOPHEN 325 MG TABLET (FP) PO PRN ×3 (06:28→19:56)
[2017-07-28 07:07] LABS: INR 2.94 (0.82-1.09); PROTHROMBIN TIME (PATIENT) 33.2 SEC (9.98-11.88)
--- NOTE | 2017-07-28 09:20 | PN ---
Progress Note, Physician Chief Complaint: s/p fall earlier today head ct normal no acute bleed has pain on left upper abdomen - Current Medication List Current Medications: Active Medications Acetaminophen (Tylenol -) 650 mg PO Q6H PRN PRN Reason: PAIN Last Admin: 07/28/17 06:28 Dose: 650 mg Acetylcysteine (Mucomyst 20 Oral / Inh Use Only*) 200 mg NEB QIDR [facility] Last Admin: 07/28/17 06:10 Dose: 200 mg Albuterol Sulfate (Ventolin 0.083% Nebulizer Soln -) 1 amp NEB Q6H PRN PRN Reason: SHORT OF BREATH/WHEEZING Last Admin: 07/28/17 06:10 Dose: 1 amp Aspirin (Asa -) 81 mg PO DAILY [facility] Last Admin: 07/27/17 10:02 Dose: 81 mg Budesonide (Pulmicort 0.25 Mg Nebulizer -) 1 amp NEB BID [facility] Last Admin: 07/27/17 21:56 Dose: 1 amp Calcium Carbonate (Calcium Carbonate -) 650 mg PO DAILY [facility] Last Admin: 07/27/17 10:01 Dose: 650 mg Digoxin (Lanoxin -) 0.125 mg PO DAILY [facility] Last Admin: 07/27/17 10:01 Dose: 0.125 mg Diltiazem HCl (Cardizem Cd -) 360 mg PO DAILY [facility] Last Admin: 07/27/17 10:01 Dose: 360 mg Furosemide (Lasix -) 40 mg PO DAILY [facility] Last Admin: 07/27/17 10:01 Dose: 40 mg Guaifenesin (Diabetic Tussin Dm -) 5 ml PO Q4H PRN PRN Reason: COUGH Last Admin: 07/27/17 20:13 Dose: 5 ml Insulin Aspart (Novolog Vial Sliding Scale -) 1 vial SQ ACHS [facility] PRN Reason: Protocol Last Admin: 07/28/17 06:28 Dose: Not Given Insulin Detemir (Levemir Vial) 10 units SQ AM [facility] Last Admin: 07/28/17 06:28 Dose: 10 units Metformin HCl (Glucophage -) 500 mg PO BID@0700,1630 [facility] Last Admin: 07/28/17 06:28 Dose: 500 mg Montelukast Sodium (Singulair -) 10 mg PO HS [facility] Last Admin: 07/27/17 21:38 Dose: 10 mg Nebivolol (Bystolic -) 2.5 mg PO DAILY [facility] Last Admin: 07/27/17 10:03 Dose: 2.5 mg Potassium Chloride (K-Dur -) 20 meq PO DAILY [facility] Last Admin: 07/27/17 10:02 Dose: 20 meq Prednisone (Deltasone -) 30 mg PO BID [facility] Last Admin: 07/27/17 21:38 Dose: 30 mg Ranitidine HCl (Zantac -) 150 mg PO DAILY [facility] Last Admin: 07/27/17 10:01 Dose: 150 mg Senna (Senna -) 1 tab PO DAILY [facility] Last Admin: 07/27/17 10:03 Dose: 1 tab Warfarin Sodium (Coumadin -) 5 mg PO DAILY@1800 [facility] Last Admin: 07/27/17 17:02 Dose: 5 mg - Objective Vital Signs: Vital Signs Temperature 98.2 F 07/28/17 05:20 Pulse Rate 90 07/28/17 05:20 Respiratory Rate 16 07/28/17 05:20 Blood Pressure 125/92 07/28/17 05:20 O2 Sat by Pulse Oximetry (%) 98 07/27/17 20:26 Constitutional: Yes: Calm Cardiovascular: Yes: Pulse Irregular, S1, S2 Respiratory: Yes: On Nasal O2, Rhonchi (coarse) Gastrointestinal: Yes: Normal Bowel Sounds, Tenderness (on left upper abdomen below the breast firm palpable swelling) Neurological: Yes: Alert, Oriented Labs: CBC, BMP 07/27/17 05:15 07/27/17 05:15 INR, PTT INR 2.94 (0.82-1.09) H D 07/28/17 06:30 Problem List - Problems (1) Fall Assessment/Plan: s/p fall ct head negative has left upper abdominal pain / mass r/o hematoma ultrasound ordered Code(s): W19.XXXA - UNSPECIFIED FALL, INITIAL ENCOUNTER (2) Internal jugular vein thrombosis Assessment/Plan: seen by vascular surgeon already on AC keep INR 2.5-3.5 Code(s): I82.C19 - ACUTE EMBOLISM AND THROMBOSIS OF UNSP INTERNAL JUGULAR VEIN (3) S/P MVR (mitral valve replacement) Assessment/Plan: done about 5 weeks ago on AC maintain INR 2.5-3.5 Code(s): Z95.2 - PRESENCE OF PROSTHETIC HEART VALVE (4) CHF (congestive heart failure) Assessment/Plan: on po lasix check cmp today on k dur supplements Code(s): I50.9 - HEART FAILURE, UNSPECIFIED Qualifiers: (5) COPD (chronic obstructive pulmonary disease) with chronic bronchitis Assessment/Plan: prednisone taper 30mg po bid chest CT as outpatient bronchodilator mucomyst Code(s): J44.9 - CHRONIC OBSTRUCTIVE PULMONARY DISEASE, UNSPECIFIED (6) Atrial fibrillation Assessment/Plan: permenant afb cardizem and AC Code(s): I48.91 - UNSPECIFIED ATRIAL FIBRILLATION Qualifiers: Atrial fibrillation type: permanent Qualified Code(s): I48.2 - Chronic atrial fibrillation; I48.2 - Chronic atrial fibrillation; I48.2 - Chronic atrial fibrillation; I48.2 - Chronic atrial fibrillation (7) Hyperglycemia Assessment/Plan: seen by franky metformin and levemir Code(s): R73.9 - HYPERGLYCEMIA, UNSPECIFIED Assessment/Plan netta follow ultrasound report
[2017-07-28] MEDS ORDERED: PT OWN MED DRAWER 7, Y5N ONE (10:17)
[2017-07-28] MEDS: predniSONE 20 MG TABLET (UD) PO SCH ×2 (10:49→21:39)
[2017-07-28] MEDS: RANITIDINE HCL 150 MG TABLET (FP) PO SCH (10:49)
[2017-07-28] MEDS: FUROSEMIDE 40 MG TABLET (FP) PO SCH (10:49)
--- NOTE | 2017-07-28 10:49 | PN ---
Progress Note, Physician History of Present Illness: seen and examined today. had a mechanical fall this am walking to bathroom. states she just fell. denies any lightheadedness, dizziness, syncope, or near syncope. has discomfort on L side of body from fall. states her sob is the same. - Current Medication List Current Medications: Active Medications Acetaminophen (Tylenol -) 650 mg PO Q6H PRN PRN Reason: PAIN Last Admin: 07/28/17 06:28 Dose: 650 mg Acetylcysteine (Mucomyst 20 Oral / Inh Use Only*) 200 mg NEB QIDR [facility] Last Admin: 07/28/17 06:10 Dose: 200 mg Albuterol Sulfate (Ventolin 0.083% Nebulizer Soln -) 1 amp NEB Q6H PRN PRN Reason: SHORT OF BREATH/WHEEZING Last Admin: 07/28/17 06:10 Dose: 1 amp Aspirin (Asa -) 81 mg PO DAILY [facility] Last Admin: 07/27/17 10:02 Dose: 81 mg Budesonide (Pulmicort 0.25 Mg Nebulizer -) 1 amp NEB BID [facility] Last Admin: 07/27/17 21:56 Dose: 1 amp Calcium Carbonate (Calcium Carbonate -) 650 mg PO DAILY [facility] Last Admin: 07/27/17 10:01 Dose: 650 mg Digoxin (Lanoxin -) 0.125 mg PO DAILY [facility] Last Admin: 07/27/17 10:01 Dose: 0.125 mg Diltiazem HCl (Cardizem Cd -) 360 mg PO DAILY [facility] Last Admin: 07/27/17 10:01 Dose: 360 mg Furosemide (Lasix -) 40 mg PO DAILY [facility] Last Admin: 07/27/17 10:01 Dose: 40 mg Guaifenesin (Diabetic Tussin Dm -) 5 ml PO Q4H PRN PRN Reason: COUGH Last Admin: 07/27/17 20:13 Dose: 5 ml Insulin Aspart (Novolog Vial Sliding Scale -) 1 vial SQ ACHS [facility] PRN Reason: Protocol Last Admin: 07/28/17 06:28 Dose: Not Given Insulin Detemir (Levemir Vial) 10 units SQ AM [facility] Last Admin: 07/28/17 06:28 Dose: 10 units Metformin HCl (Glucophage -) 500 mg PO BID@0700,1630 [facility] Last Admin: 07/28/17 06:28 Dose: 500 mg Montelukast Sodium (Singulair -) 10 mg PO HS [facility] Last Admin: 07/27/17 21:38 Dose: 10 mg Nebivolol (Bystolic -) 2.5 mg PO DAILY [facility] Last Admin: 07/27/17 10:03 Dose: 2.5 mg Potassium Chloride (K-Dur -) 20 meq PO DAILY [facility] Last Admin: 07/27/17 10:02 Dose: 20 meq Prednisone (Deltasone -) 30 mg PO BID [facility] Last Admin: 07/27/17 21:38 Dose: 30 mg Ranitidine HCl (Zantac -) 150 mg PO DAILY [facility] Last Admin: 07/27/17 10:01 Dose: 150 mg Senna (Senna -) 1 tab PO DAILY [facility] Last Admin: 07/27/17 10:03 Dose: 1 tab Warfarin Sodium (Coumadin -) 5 mg PO DAILY@1800 [facility] Last Admin: 07/27/17 17:02 Dose: 5 mg - Objective Vital Signs: Vital Signs Temperature 98.2 F 07/28/17 10:00 Pulse Rate 114 H 07/28/17 10:00 Respiratory Rate 18 07/28/17 10:00 Blood Pressure 112/62 07/28/17 10:00 O2 Sat by Pulse Oximetry (%) 98 07/27/17 20:26 Constitutional: Yes: No Distress, Calm Eyes: Yes: Conjunctiva Clear, EOM Intact, PERRL HENT: Yes: Atraumatic, Normocephalic Neck: Yes: Supple, Trachea Midline Cardiovascular: Yes: Tachycardia, Pulse Irregular, Murmur, S1, S2. No: Bradycardia, Bruit, JVD, Gallop, Rub, S3, S4, Varicosities Respiratory: Yes: Regular, Cough, Diminished, On Nasal O2, Rhonchi, Wheezes. No : Rales, SOB Gastrointestinal: Yes: Normal Bowel Sounds, Soft. No: Distention, Tenderness Extremities: Yes: WNL Edema: No Peripheral Pulses WNL: Yes Peripheral Pulses: Left Doralis Pedis: 2+, Right Dorsalis Pedis: 2+ Neurological: Yes: Alert, Oriented Psychiatric: Yes: Alert, Oriented Labs: CBC, BMP 07/27/17 05:15 07/27/17 05:15 INR, PTT INR 2.94 (0.82-1.09) H D 07/28/17 06:30 - ....Imaging Chest X-ray: Report Reviewed, Image Reviewed EKG: Report Reviewed, Image Reviewed Other: Report Reviewed, Image Reviewed (tele-afib, currently 100-110bpm, episodes of RVR) Assessment/Plan AE COPD Acute on chronic diastolic CHF, mild S/P Mechanical MVR, 2 weeks ago Permanent AF Chronic COPD with exacerbation L IJ thrombus REC: SOB/wheezing-slowly improving, AE COPD -cont pulmonary management of AE COPD -overall euvolemic, cont po Lasix at current dose -monitor bun/creat, electrolytes and replete as needed Afib HR currently adequately controlled but still has episodes of rvr -likely exacerbated by pulmonary condition -cont Cardizem 360mg daily -bystolic was added, can attempt to slowly uptitrate as needed for HR control -will consider increasing digoxin to 0.25mg daily -Cont warfarin for goal 2.5-3.5 ([facility] MVR and afib)
[2017-07-28] MEDS: SENNOSIDES 8.6MG TABLET (FP) PO SCH (10:50)
[2017-07-28] MEDS: DIGOXIN 0.125 MG TABLET (FP) PO SCH (10:50)
[2017-07-28] MEDS: CALCIUM CARBONATE 650 MG TABLET PO SCH (10:50)
[2017-07-28] MEDS: ASPIRIN 81 MG CHEWABLE TABLETS PO SCH (10:50)
[2017-07-28] MEDS: POTASSIUM CHLORIDE TABS 20 MEQ TABLET.ER (FP) PO SCH (10:50)
[2017-07-28] MEDS: NEBIVOLOL 2.5 MG TABLET (FP) PO SCH (10:51)
[2017-07-28] MEDS: BUDESONIDE 0.25 MG/2ML INH SUSP VIAL NEB SCH ×2 (11:10→22:55)
--- NOTE | 2017-07-28 11:16 | PN ---
Progress Note, Physician History of Present Illness: pulmonary alert,more congested,+ cough - Current Medication List Current Medications: Active Medications Acetaminophen (Tylenol -) 650 mg PO Q6H PRN PRN Reason: PAIN Last Admin: 07/28/17 06:28 Dose: 650 mg Acetylcysteine (Mucomyst 20 Oral / Inh Use Only*) 200 mg NEB QIDR [facility] Last Admin: 07/28/17 06:10 Dose: 200 mg Albuterol Sulfate (Ventolin 0.083% Nebulizer Soln -) 1 amp NEB Q6H PRN PRN Reason: SHORT OF BREATH/WHEEZING Last Admin: 07/28/17 06:10 Dose: 1 amp Aspirin (Asa -) 81 mg PO DAILY [facility] Last Admin: 07/28/17 10:50 Dose: 81 mg Budesonide (Pulmicort 0.25 Mg Nebulizer -) 1 amp NEB BID [facility] Last Admin: 07/27/17 21:56 Dose: 1 amp Calcium Carbonate (Calcium Carbonate -) 650 mg PO DAILY [facility] Last Admin: 07/28/17 10:50 Dose: 650 mg Digoxin (Lanoxin -) 0.125 mg PO DAILY [facility] Last Admin: 07/28/17 10:50 Dose: 0.125 mg Diltiazem HCl (Cardizem Cd -) 360 mg PO DAILY [facility] Last Admin: 07/28/17 10:50 Dose: 360 mg Furosemide (Lasix -) 40 mg PO DAILY [facility] Last Admin: 07/28/17 10:49 Dose: 40 mg Guaifenesin (Diabetic Tussin Dm -) 5 ml PO Q4H PRN PRN Reason: COUGH Last Admin: 07/27/17 20:13 Dose: 5 ml Insulin Aspart (Novolog Vial Sliding Scale -) 1 vial SQ ACHS [facility] PRN Reason: Protocol Last Admin: 07/28/17 06:28 Dose: Not Given Insulin Detemir (Levemir Vial) 10 units SQ AM [facility] Last Admin: 07/28/17 06:28 Dose: 10 units Metformin HCl (Glucophage -) 500 mg PO BID@0700,1630 [facility] Last Admin: 07/28/17 06:28 Dose: 500 mg Montelukast Sodium (Singulair -) 10 mg PO HS [facility] Last Admin: 07/27/17 21:38 Dose: 10 mg Nebivolol (Bystolic -) 2.5 mg PO DAILY [facility] Last Admin: 07/28/17 10:51 Dose: 2.5 mg Potassium Chloride (K-Dur -) 20 meq PO DAILY [facility] Last Admin: 07/28/17 10:50 Dose: 20 meq Prednisone (Deltasone -) 30 mg PO BID [facility] Last Admin: 07/28/17 10:49 Dose: 30 mg Ranitidine HCl (Zantac -) 150 mg PO DAILY [facility] Last Admin: 07/28/17 10:49 Dose: 150 mg Senna (Senna -) 1 tab PO DAILY [facility] Last Admin: 07/28/17 10:50 Dose: 1 tab Warfarin Sodium (Coumadin -) 5 mg PO DAILY@1800 [facility] Last Admin: 07/27/17 17:02 Dose: 5 mg - Objective Vital Signs: Vital Signs Temperature 98.2 F 07/28/17 10:00 Pulse Rate 118 H 07/28/17 10:50 Respiratory Rate 18 07/28/17 10:00 Blood Pressure 112/62 07/28/17 10:00 O2 Sat by Pulse Oximetry (%) 98 07/27/17 20:26 Constitutional: Yes: Well Nourished, Calm Eyes: Yes: WNL HENT: Yes: Hoarseness Neck: Yes: WNL Cardiovascular: Yes: Pulse Irregular, S1, S2 Respiratory: Yes: Rhonchi, Wheezes ( bilateral rhonchi and wheezes) Gastrointestinal: Yes: Normal Bowel Sounds, Soft Extremities: Yes: WNL Edema: No Labs: INR, PTT INR 2.94 (0.82-1.09) H D 07/28/17 06:30 Assessment/Plan IMP COPD /ASTHMA EXACERBATION CHF MVR RECENT/NL CORONARIES PERMANENT AF H/O VTE HTN/PULMONARY HTN LLL OPACITY LIKELY PARTIAL ATELECTASIS LLL LEFT IJ PHLEBITIS O2 BRONCHODILATORS A/C PER INR DIURETICS PREDNISONE 40 BID BRONCHODILATORS CHEST PT MUCOMYST F/U CHEST CT OUTPATIENT PULMONARY REHAB POST DISCHARGE DR YE Problem List - Problems (1) COPD (chronic obstructive pulmonary disease) with chronic bronchitis Code(s): J44.9 - CHRONIC OBSTRUCTIVE PULMONARY DISEASE, UNSPECIFIED (2) Acute asthma exacerbation Code(s): J45.901 - UNSPECIFIED ASTHMA WITH (ACUTE) EXACERBATION Qualifiers: (3) Anxiety and depression Code(s): F41.9 - ANXIETY DISORDER, UNSPECIFIED F32.9 - MAJOR DEPRESSIVE DISORDER, SINGLE EPISODE, UNSPECIFIED (4) Mitral valve replaced Code(s): Z95.2 - PRESENCE OF PROSTHETIC HEART VALVE
[2017-07-28] MEDS: WARFARIN NA 5 MG TABLET (UD) PO SCH (18:45)
[2017-07-28] MEDS: MONTELUKAST NA 10 MG TABLET PO SCH (21:40)
[2017-07-28] MEDS: guaiFENesin/D-M SUGAR-FREE/ACLHOL-FREE 118 ML BOTTLE PO PRN (21:41)
--- NOTE | 2017-07-29 01:13 | PN ---
Progress Note, Physician Chief Complaint: feeling weak difficulty breathing History of Present Illness: resting confortable,now with dyspnea at exertion weakness generalized - Current Medication List Current Medications: Active Medications Acetaminophen (Tylenol -) 650 mg PO Q6H PRN PRN Reason: PAIN Last Admin: 07/28/17 19:56 Dose: 650 mg Acetylcysteine (Mucomyst 20 Oral / Inh Use Only*) 200 mg NEB QIDR [facility] Last Admin: 07/28/17 23:25 Dose: 200 mg Albuterol Sulfate (Ventolin 0.083% Nebulizer Soln -) 1 amp NEB Q6H PRN PRN Reason: SHORT OF BREATH/WHEEZING Last Admin: 07/28/17 23:25 Dose: 1 amp Aspirin (Asa -) 81 mg PO DAILY [facility] Last Admin: 07/28/17 10:50 Dose: 81 mg Budesonide (Pulmicort 0.25 Mg Nebulizer -) 1 amp NEB BID [facility] Last Admin: 07/28/17 22:55 Dose: 1 amp Calcium Carbonate (Calcium Carbonate -) 650 mg PO DAILY [facility] Last Admin: 07/28/17 10:50 Dose: 650 mg Digoxin (Lanoxin -) 0.125 mg PO DAILY [facility] Last Admin: 07/28/17 10:50 Dose: 0.125 mg Diltiazem HCl (Cardizem Cd -) 360 mg PO DAILY [facility] Last Admin: 07/28/17 10:50 Dose: 360 mg Furosemide (Lasix -) 40 mg PO DAILY [facility] Last Admin: 07/28/17 10:49 Dose: 40 mg Guaifenesin (Diabetic Tussin Dm -) 5 ml PO Q4H PRN PRN Reason: COUGH Last Admin: 07/28/17 21:41 Dose: 5 ml Insulin Aspart (Novolog Vial Sliding Scale -) 1 vial SQ ACHS [facility] PRN Reason: Protocol Last Admin: 07/28/17 21:39 Dose: Not Given Insulin Detemir (Levemir Vial) 10 units SQ AM [facility] Last Admin: 07/28/17 06:28 Dose: 10 units Metformin HCl (Glucophage -) 500 mg PO BID@0700,1630 [facility] Last Admin: 07/28/17 18:45 Dose: 500 mg Montelukast Sodium (Singulair -) 10 mg PO HS [facility] Last Admin: 07/28/17 21:40 Dose: 10 mg Nebivolol (Bystolic -) 2.5 mg PO DAILY [facility] Last Admin: 07/28/17 10:51 Dose: 2.5 mg Potassium Chloride (K-Dur -) 20 meq PO DAILY [facility] Last Admin: 07/28/17 10:50 Dose: 20 meq Prednisone (Deltasone -) 40 mg PO BID [facility] Last Admin: 07/28/17 21:39 Dose: 40 mg Ranitidine HCl (Zantac -) 150 mg PO DAILY [facility] Last Admin: 07/28/17 10:49 Dose: 150 mg Senna (Senna -) 1 tab PO DAILY [facility] Last Admin: 07/28/17 10:50 Dose: 1 tab Warfarin Sodium (Coumadin -) 5 mg PO DAILY@1800 [facility] Last Admin: 07/28/17 18:45 Dose: 5 mg - Objective Vital Signs: Vital Signs Temperature 98.7 F 07/28/17 22:00 Pulse Rate 94 H 07/28/17 22:00 Respiratory Rate 20 07/28/17 22:00 Blood Pressure 114/76 07/28/17 22:00 O2 Sat by Pulse Oximetry (%) 100 07/28/17 21:00 Constitutional: Yes: Well Nourished, Calm Eyes: Yes: EOM Intact HENT: Yes: Normocephalic Neck: Yes: Trachea Midline Cardiovascular: Yes: Regular Rate and Rhythm Respiratory: Yes: SOB, SOB on Exertion, Tachypnea Gastrointestinal: Yes: Normal Bowel Sounds ...Rectal Exam: Yes: Deferred Genitourinary: Yes: WNL Musculoskeletal: Yes: Joint Stiffness, Joint Swelling, Muscle Weakness Extremities: Yes: Cool Edema: Yes Edema: LUE: 3+ Peripheral Pulses WNL: Yes Psychiatric: Yes: Alert, Oriented Labs: CBC, BMP 07/27/17 05:15 07/27/17 05:15 INR, PTT INR 2.94 (0.82-1.09) H D 07/28/17 06:30 Problem List - Problems (1) CHF (congestive heart failure) Code(s): I50.9 - HEART FAILURE, UNSPECIFIED Qualified Code(s): - (2) COPD (chronic obstructive pulmonary disease) with chronic bronchitis Code(s): J44.9 - CHRONIC OBSTRUCTIVE PULMONARY DISEASE, UNSPECIFIED (3) Mitral valve replaced Code(s): Z95.2 - PRESENCE OF PROSTHETIC HEART VALVE (4) S/P MVR (mitral valve replacement) Code(s): Z95.2 - PRESENCE OF PROSTHETIC HEART VALVE (5) Acute asthma exacerbation Code(s): J45.901 - UNSPECIFIED ASTHMA WITH (ACUTE) EXACERBATION Qualifiers: (6) Acute exacerbation of CHF (congestive heart failure) Code(s): I50.9 - HEART FAILURE, UNSPECIFIED Qualifiers: Congestive heart failure type: diastolic Qualified Code(s): I50.33 - Acute on chronic diastolic (congestive) heart failure; I50.33 - Acute on chronic diastolic (congestive) heart failure; I50.33 - Acute on chronic diastolic (congestive) heart failure; I50.33 - Acute on chronic diastolic ( congestive) heart failure Assessment/Plan Current Active Problems Asthma attack (Acute) CHF (congestive heart failure) (Acute) COPD (chronic obstructive pulmonary disease) with chronic bronchitis (Acute) Fall (Acute) Hyperglycemia (Acute) Internal jugular vein thrombosis (Acute) Mitral valve replaced (Acute) Osteomyelitis (Acute) S/P MVR (mitral valve replacement) (Acut hyperglycemia Abnormal Lab Results 07/28/17 06:30 PT with INR 33.20 H INR 2.94 H D Laboratory Results - last 24 hr 07/28/17 07/28/17 07/28/17 06:23 06:30 12:28 PT with INR 33.20 H INR 2.94 H D POC Glucometer 149 126 07/28/17 07/28/17 17:28 21:35 PT with INR INR POC Glucometer 221 195 plan: Current Medications Generic Name Dose Route Start Last Admin Trade Name Freq PRN Reason Stop Dose Admin Acetaminophen 650 mg 07/14/17 04:07 07/28/17 19:56 Tylenol - PO 650 mg Q6H PRN Administration PAIN Acetylcysteine 200 mg 07/16/17 18:00 07/28/17 23:25 Mucomyst 20 Oral / Inh Use Only* NEB 200 mg QIDR [facility] Administration Albuterol Sulfate 1 amp 07/27/17 17:18 07/28/17 23:25 Ventolin 0.083% Nebulizer Soln - NEB 1 amp Q6H PRN Administration SHORT OF BREATH/WHEEZING Aspirin 81 mg 07/12/17 10:00 07/28/17 10:50 Asa - PO 81 mg DAILY [facility] Administration Budesonide 1 amp 07/12/17 11:00 10/16/17 22:55 Pulmicort 0.25 Mg Nebulizer - NEB 1 amp BID [facility] Administration Calcium Carbonate 650 mg 07/13/17 14:15 07/28/17 10:50 Calcium Carbonate - PO 650 mg DAILY [facility] Administration Digoxin 0.125 mg 07/24/17 10:00 07/28/17 10:50 Lanoxin - PO 0.125 mg DAILY [facility] Administration Diltiazem HCl 360 mg 07/20/17 10:00 07/28/17 10:50 Cardizem Cd - PO 360 mg DAILY [facility] Administration Furosemide 40 mg 07/14/17 10:00 07/28/17 10:49 Lasix - PO 40 mg DAILY [facility] Administration Guaifenesin 5 ml 07/13/17 09:54 07/28/17 21:41 Diabetic Tussin Dm - PO 5 ml Q4H PRN Administration COUGH Insulin Aspart 1 vial 07/14/17 07:00 07/28/17 21:39 Novolog Vial Sliding Scale - SQ Not Given ACHS [facility] Protocol Insulin Detemir 10 units 07/17/17 07:00 07/28/17 06:28 Levemir Vial SQ 10 units AM [facility] Administration Metformin HCl 500 mg 07/21/17 07:00 07/28/17 18:45 Glucophage - PO 500 mg BID@0700,1630 [facility] Administration Montelukast Sodium 10 mg 07/22/17 22:00 07/28/17 21:40 Singulair - PO 10 mg HS [facility] Administration Nebivolol 2.5 mg 07/24/17 10:00 07/28/17 10:51 Bystolic - PO 2.5 mg DAILY [facility] Administration Potassium Chloride 20 meq 07/12/17 10:00 07/28/17 10:50 K-Dur - PO 20 meq DAILY [facility] Administration Prednisone 40 mg 07/28/17 22:00 07/28/17 21:39 Deltasone - PO 40 mg BID [facility] Administration Ranitidine HCl 150 mg 07/12/17 10:00 07/28/17 10:49 Zantac - PO 150 mg DAILY [facility] Administration Senna 1 tab 07/12/17 10:00 07/28/17 10:50 Senna - PO 1 tab DAILY [facility] Administration Warfarin Sodium 5 mg 07/27/17 18:00 07/28/17 18:45 Coumadin - PO 5 mg DAILY@1800 [facility] Administration
[2017-07-29] MEDS: ACETAMINOPHEN 325 MG TABLET (FP) PO PRN ×3 (05:30→22:24)
[2017-07-29] MEDS: ACETYLCYSTEINE 20% 200MG/ML 4 ML VIAL *FOR ORAL / INH USE ONLY NEB SCH ×4 (05:38→23:02)
[2017-07-29] MEDS: ALBUTEROL SO4 0.083% IH SOL 2.5 MG/3 ML VIAL.NEB. NEB PRN ×4 (05:38→23:03)
[2017-07-29] MEDS: INSULIN SLIDING SCALE (NOVOLOG) 1 VIAL SQ SCH ×4 (06:22→22:23)
[2017-07-29] MEDS: metFORMIN HCL 500 MG TABLET (FP) PO SCH (06:27)
[2017-07-29 06:57] LABS: PROTHROMBIN TIME (PATIENT) 47.8 SEC (9.98-11.88)
[2017-07-29] MEDS: INSULIN DETEMIR 100 UNITS/ML MDV SQ SCH (07:00)
[2017-07-29 07:01] LABS: MCH 30.8 pg (25.7-33.7); MCHC 32.5 g/dl (32.0-36.0); MEAN CELL VOLUME 94.8 fl (80-96); PLATELET COUNT 78 K/MM3 (134-434); RDW 17.7 % (11.6-15.6); WHITE BLOOD COUNT 25.7 K/mm3 (4.0-10.0)
[2017-07-29 07:02] LABS: ALBUMIN 2.2 g/dl (3.4-5.0); ALK PHOS 56 U/L (45-117); ANION GAP 7 (8-16); BILIRUBIN,TOTAL 0.6 mg/dL (0.2-1.0); CALCIUM 7.2 mg/dL (8.5-10.1); CO2 29 mmol/L (21-32); CREATININE 0.7 mg/dL (0.55-1.02); GLUCOSE,RANDOM 159 mg/dL (74-106); SGOT/AST 9 U/L (15-37); SGPT/ALT 14 U/L (12-78); TOT PROT 4.2 g/dl (6.4-8.2)
[2017-07-29 07:19] LABS: INR 4.23 (0.82-1.09)
--- NOTE | 2017-07-29 09:07 | PN ---
Progress Note, Physician - Current Medication List Current Medications: Active Medications Acetaminophen (Tylenol -) 650 mg PO Q6H PRN PRN Reason: PAIN Last Admin: 07/29/17 05:30 Dose: 650 mg Acetylcysteine (Mucomyst 20 Oral / Inh Use Only*) 200 mg NEB QIDR [facility] Last Admin: 07/29/17 05:38 Dose: 200 mg Albuterol Sulfate (Ventolin 0.083% Nebulizer Soln -) 1 amp NEB Q6H PRN PRN Reason: SHORT OF BREATH/WHEEZING Last Admin: 07/29/17 05:38 Dose: 1 amp Aspirin (Asa -) 81 mg PO DAILY [facility] Last Admin: 07/28/17 10:50 Dose: 81 mg Budesonide (Pulmicort 0.25 Mg Nebulizer -) 1 amp NEB BID [facility] Last Admin: 07/28/17 22:55 Dose: 1 amp Calcium Carbonate (Calcium Carbonate -) 650 mg PO DAILY [facility] Last Admin: 07/28/17 10:50 Dose: 650 mg Digoxin (Lanoxin -) 0.125 mg PO DAILY [facility] Last Admin: 07/28/17 10:50 Dose: 0.125 mg Diltiazem HCl (Cardizem Cd -) 360 mg PO DAILY [facility] Last Admin: 07/28/17 10:50 Dose: 360 mg Furosemide (Lasix -) 40 mg PO DAILY [facility] Last Admin: 07/28/17 10:49 Dose: 40 mg Guaifenesin (Diabetic Tussin Dm -) 5 ml PO Q4H PRN PRN Reason: COUGH Last Admin: 07/28/17 21:41 Dose: 5 ml Insulin Aspart (Novolog Vial Sliding Scale -) 1 vial SQ ACHS [facility] PRN Reason: Protocol Last Admin: 07/29/17 06:22 Dose: 3 units Insulin Detemir (Levemir Vial) 10 units SQ AM [facility] Last Admin: 07/28/17 06:28 Dose: 10 units Metformin HCl (Glucophage -) 500 mg PO BID@0700,1630 [facility] Last Admin: 07/29/17 06:27 Dose: Not Given Montelukast Sodium (Singulair -) 10 mg PO HS [facility] Last Admin: 07/28/17 21:40 Dose: 10 mg Nebivolol (Bystolic -) 2.5 mg PO DAILY [facility] Last Admin: 07/28/17 10:51 Dose: 2.5 mg Potassium Chloride (K-Dur -) 20 meq PO DAILY [facility] Last Admin: 07/28/17 10:50 Dose: 20 meq Prednisone (Deltasone -) 40 mg PO BID [facility] Last Admin: 07/28/17 21:39 Dose: 40 mg Ranitidine HCl (Zantac -) 150 mg PO DAILY [facility] Last Admin: 07/28/17 10:49 Dose: 150 mg Senna (Senna -) 1 tab PO DAILY [facility] Last Admin: 07/28/17 10:50 Dose: 1 tab Warfarin Sodium (Coumadin -) 5 mg PO DAILY@1800 [facility] Last Admin: 07/28/17 18:45 Dose: 5 mg - Objective Vital Signs: Vital Signs Temperature 98 F 07/29/17 08:07 Pulse Rate 122 H 07/29/17 08:07 Respiratory Rate 20 07/29/17 08:07 Blood Pressure 111/70 07/29/17 08:07 O2 Sat by Pulse Oximetry (%) 100 07/28/17 21:00 Cardiovascular: Yes: S1, S2 Respiratory: Yes: Regular, CTA Bilaterally Gastrointestinal: Yes: Soft, Tenderness (luq left flank) Breast(s): Yes: Other (bruising) Labs: CBC, BMP 07/29/17 06:15 07/29/17 06:15 INR, PTT INR 4.23 (0.82-1.09) H* D 07/29/17 06:15 Problem List - Problems (1) Internal jugular vein thrombosis Code(s): I82.C19 - ACUTE EMBOLISM AND THROMBOSIS OF UNSP INTERNAL JUGULAR VEIN (2) Retroperitoneal bleed Assessment/Plan: must rule out on AC hold ac surgical consult hem consult if bleed will need to reverse inr Code(s): R58 - HEMORRHAGE, NOT ELSEWHERE CLASSIFIED Assessment/Plan - Problems (1) Fall Assessment/Plan: s/p fall ct head negative has left upper abdominal pain / mass r/o hematoma/bleed ultrasound noted--ct scan Code(s): W19.XXXA - UNSPECIFIED FALL, INITIAL ENCOUNTER (2) Internal jugular vein thrombosis Assessment/Plan: seen by vascular surgeon already on AC keep INR 2.5-3.5 Code(s): I82.C19 - ACUTE EMBOLISM AND THROMBOSIS OF UNSP INTERNAL JUGULAR VEIN (3) S/P MVR (mitral valve replacement) Assessment/Plan: done about 5 weeks ago on AC maintain INR 2.5-3.5 Code(s): Z95.2 - PRESENCE OF PROSTHETIC HEART VALVE (4) CHF (congestive heart failure) Assessment/Plan: on po lasix check cmp today on k dur supplements Code(s): I50.9 - HEART FAILURE, UNSPECIFIED Qualifiers: (5) COPD (chronic obstructive pulmonary disease) with chronic bronchitis Assessment/Plan: prednisone taper 30mg po bid chest CT as outpatient bronchodilator mucomyst Code(s): J44.9 - CHRONIC OBSTRUCTIVE PULMONARY DISEASE, UNSPECIFIED (6) Atrial fibrillation Assessment/Plan: permanent afb cardizem and AC Code(s): I48.91 - UNSPECIFIED ATRIAL FIBRILLATION Qualifiers: Atrial fibrillation type: permanent Qualified Code(s): I48.2 - Chronic atrial fibrillation; I48.2 - Chronic atrial fibrillation; I48.2 - Chronic atrial fibrillation; I48.2 - Chronic atrial fibrillation (7) Hyperglycemia Assessment/Plan: seen by endo metformin and levemir Code(s): R73.9 - HYPERGLYCEMIA, UNSPECIFIED
--- NOTE | 2017-07-29 09:22 | PN ---
Progress Note, Physician Chief Complaint: platelets dropping Sono with fluid in LUQ, ?stomach vs fluid collection History of Present Illness: TELE: AF with average rate 100bpm - Current Medication List Current Medications: Active Medications Acetaminophen (Tylenol -) 650 mg PO Q6H PRN PRN Reason: PAIN Last Admin: 07/29/17 05:30 Dose: 650 mg Acetylcysteine (Mucomyst 20 Oral / Inh Use Only*) 200 mg NEB QIDR [facility] Last Admin: 07/29/17 05:38 Dose: 200 mg Albuterol Sulfate (Ventolin 0.083% Nebulizer Soln -) 1 amp NEB Q6H PRN PRN Reason: SHORT OF BREATH/WHEEZING Last Admin: 07/29/17 05:38 Dose: 1 amp Aspirin (Asa -) 81 mg PO DAILY [facility] Last Admin: 07/28/17 10:50 Dose: 81 mg Budesonide (Pulmicort 0.25 Mg Nebulizer -) 1 amp NEB BID [facility] Last Admin: 07/28/17 22:55 Dose: 1 amp Calcium Carbonate (Calcium Carbonate -) 650 mg PO DAILY [facility] Last Admin: 07/28/17 10:50 Dose: 650 mg Digoxin (Lanoxin -) 0.125 mg PO DAILY [facility] Last Admin: 07/28/17 10:50 Dose: 0.125 mg Diltiazem HCl (Cardizem Cd -) 360 mg PO DAILY [facility] Last Admin: 07/28/17 10:50 Dose: 360 mg Furosemide (Lasix -) 40 mg PO DAILY [facility] Last Admin: 07/28/17 10:49 Dose: 40 mg Guaifenesin (Diabetic Tussin Dm -) 5 ml PO Q4H PRN PRN Reason: COUGH Last Admin: 07/28/17 21:41 Dose: 5 ml Insulin Aspart (Novolog Vial Sliding Scale -) 1 vial SQ ACHS [facility] PRN Reason: Protocol Last Admin: 07/29/17 06:22 Dose: 3 units Insulin Detemir (Levemir Vial) 10 units SQ AM [facility] Last Admin: 07/28/17 06:28 Dose: 10 units Metformin HCl (Glucophage -) 500 mg PO BID@0700,1630 [facility] Last Admin: 07/29/17 06:27 Dose: Not Given Montelukast Sodium (Singulair -) 10 mg PO HS [facility] Last Admin: 07/28/17 21:40 Dose: 10 mg Nebivolol (Bystolic -) 2.5 mg PO DAILY [facility] Last Admin: 07/28/17 10:51 Dose: 2.5 mg Potassium Chloride (K-Dur -) 20 meq PO DAILY [facility] Last Admin: 07/28/17 10:50 Dose: 20 meq Prednisone (Deltasone -) 40 mg PO BID [facility] Last Admin: 07/28/17 21:39 Dose: 40 mg Ranitidine HCl (Zantac -) 150 mg PO DAILY [facility] Last Admin: 07/28/17 10:49 Dose: 150 mg Senna (Senna -) 1 tab PO DAILY [facility] Last Admin: 07/28/17 10:50 Dose: 1 tab Warfarin Sodium (Coumadin -) 5 mg PO DAILY@1800 [facility] Last Admin: 07/28/17 18:45 Dose: 5 mg - Objective Vital Signs: Vital Signs Temperature 98 F 07/29/17 08:07 Pulse Rate 122 H 07/29/17 08:07 Respiratory Rate 20 07/29/17 08:07 Blood Pressure 111/70 07/29/17 08:07 O2 Sat by Pulse Oximetry (%) 100 07/28/17 21:00 Constitutional: Yes: No Distress Cardiovascular: Yes: Pulse Irregular Respiratory: Yes: Other (scattered rhonchi. no rales) Gastrointestinal: Yes: Soft (nontender) Edema: Yes Edema: LLE: 1+, RLE: 1+ Neurological: Yes: Alert, Oriented Labs: CBC, BMP 07/29/17 06:15 07/29/17 06:15 INR, PTT INR 4.23 (0.82-1.09) H* D 07/29/17 06:15 - ....Imaging EKG: Image Reviewed Assessment/Plan Assessment/Plan AE COPD Acute on chronic diastolic CHF, mild S/P Mechanical MVR, 2 weeks ago Permanent AF Chronic COPD with exacerbation L IJ thrombus Fall yesterday, ? RP bleed Thrombocytopenia REC: 1. Agree w/ holding ASA and coumadin 2. ?Etiology of thrombocytopenia, Heme to evaluate 3. CT A/P 4. Continue tele: average AF rate around 100bpm, acceptable for now
[2017-07-29 09:59] LABS: PLATELET ESTIMATE DECREASED (NORMAL); TOTAL CELLS COUNTED 100
[2017-07-29] MEDS: BUDESONIDE 0.25 MG/2ML INH SUSP VIAL NEB SCH ×2 (10:20→22:50)
[2017-07-29 11:01] LABS: BASOPHIL 0.1 % (0-2.0); MCH 30.4 pg (25.7-33.7); MEAN CELL VOLUME 94.9 fl (80-96); MEAN PLT VOLUME 8.5 fl (7.5-11.1); NEUTROPHILS 90.5 % (42.8-82.8); PLATELET COUNT 77 K/MM3 (134-434); RDW 17.7 % (11.6-15.6); WHITE BLOOD COUNT 26.6 K/mm3 (4.0-10.0)
--- NOTE | 2017-07-29 11:10 | PN ---
Progress Note, Physician History of Present Illness: PULMONARY ALERT,LESS CONGESTED.+LEFT SIDED ABDOMINAL HEMATOMA - Current Medication List Current Medications: Active Medications Acetaminophen (Tylenol -) 650 mg PO Q6H PRN PRN Reason: PAIN Last Admin: 07/29/17 05:30 Dose: 650 mg Acetylcysteine (Mucomyst 20 Oral / Inh Use Only*) [address] [facility] Last Admin: 07/29/17 05:38 Dose: 200 mg Albuterol Sulfate (Ventolin 0.083% Nebulizer Soln -) 1 amp NEB Q6H PRN PRN Reason: SHORT OF BREATH/WHEEZING Last Admin: 07/29/17 05:38 Dose: 1 amp Aspirin (Asa -) [address] [facility] Last Admin: 07/28/17 10:50 Dose: 81 mg Budesonide (Pulmicort 0.25 Mg Nebulizer -) [address] [facility] Last Admin: 07/28/17 22:55 Dose: 1 amp Calcium Carbonate (Calcium Carbonate -) [address] [facility] Last Admin: 07/28/17 10:50 Dose: 650 mg Digoxin (Lanoxin -) 0.[address] [facility] Last Admin: 07/28/17 10:50 Dose: 0.125 mg Diltiazem HCl (Cardizem Cd -) [address] [facility] Last Admin: 07/28/17 10:50 Dose: 360 mg Furosemide (Lasix -) [address] [facility] Last Admin: 07/28/17 10:49 Dose: 40 mg Guaifenesin (Diabetic Tussin Dm -) 5 ml PO Q4H PRN PRN Reason: COUGH Last Admin: 07/28/17 21:41 Dose: 5 ml Insulin Aspart (Novolog Vial Sliding Scale -) [address] [facility] PRN Reason: Protocol Last Admin: 07/29/17 06:22 Dose: 3 units Insulin Detemir (Levemir Vial) [address] [facility] Last Admin: 07/28/17 06:28 Dose: 10 units Metformin HCl (Glucophage -) 500 mg PO BID@0700,1630 [facility] Last Admin: 07/29/17 06:27 Dose: Not Given Montelukast Sodium (Singulair -) [address] [facility] Last Admin: 07/28/17 21:40 Dose: 10 mg Nebivolol (Bystolic -) 2.[address] [facility] Last Admin: 07/28/17 10:51 Dose: 2.5 mg Potassium Chloride (K-Dur -) [address] [facility] Last Admin: 07/28/17 10:50 Dose: 20 meq Prednisone (Deltasone -) [address] [facility] Last Admin: 07/28/17 21:39 Dose: 40 mg Ranitidine HCl (Zantac -) [address] [facility] Last Admin: 07/28/17 10:49 Dose: 150 mg Senna (Senna -) [address] [facility] Last Admin: 07/28/17 10:50 Dose: 1 tab Warfarin Sodium (Coumadin -) 5 mg PO DAILY@1800 [facility] Last Admin: 07/28/17 18:45 Dose: 5 mg - Objective Vital Signs: Vital Signs Temperature 98 F 07/29/17 08:07 Pulse Rate 122 H 07/29/17 08:07 Respiratory Rate 20 07/29/17 08:07 Blood Pressure 111/70 07/29/17 08:07 O2 Sat by Pulse Oximetry (%) 96 07/29/17 08:00 Constitutional: Yes: Well Nourished, Calm Eyes: Yes: WNL HENT: Yes: WNL Neck: Yes: WNL Cardiovascular: Yes: Pulse Irregular, S1, S2 Respiratory: Yes: Rhonchi (LESS RHONCHI BILATERALLY) Gastrointestinal: Yes: Abdomen, Obese, Other (LEFT FLANK HEMATOMA) Labs: CBC, BMP 07/29/17 06:15 INR, PTT INR 4.23 (0.82-1.09) H* D 07/29/17 06:15 Laboratory Tests 07/29/17 10:45 WBC 26.6 H RBC 2.65 L Hgb 8.1 L Hct 25.2 L Plt Count 77 L Assessment/Plan IMP COPD /ASTHMA EXACERBATION CHF MVR RECENT/NL CORONARIES PERMANENT AF H/O VTE HTN/PULMONARY HTN LLL OPACITY LIKELY PARTIAL ATELECTASIS LLL LEFT IJ PHLEBITIS ANEMIA THROMBOCYTOPENIA HEMATOMA O2 BRONCHODILATORS A/C PER INR DIURETICS PREDNISONE 40 BID BRONCHODILATORS CHEST PT MUCOMYST F/U CHEST CT OUTPATIENT PULMONARY REHAB POST DISCHARGE MONITOR H+H,PLTS CHEST CT DR YE Problem List - Problems (1) COPD (chronic obstructive pulmonary disease) with chronic bronchitis Code(s): J44.9 - CHRONIC OBSTRUCTIVE PULMONARY DISEASE, UNSPECIFIED (2) Acute asthma exacerbation Code(s): J45.901 - UNSPECIFIED ASTHMA WITH (ACUTE) EXACERBATION Qualifiers: (3) Anxiety and depression Code(s): F41.9 - ANXIETY DISORDER, UNSPECIFIED F32.9 - MAJOR DEPRESSIVE DISORDER, SINGLE EPISODE, UNSPECIFIED (4) Mitral valve replaced Code(s): Z95.2 - PRESENCE OF PROSTHETIC HEART VALVE
[2017-07-29 11:16] LABS: PROTHROMBIN TIME (PATIENT) 45.4 SEC (9.98-11.88)
[2017-07-29] MEDS: DIGOXIN 0.125 MG TABLET (FP) PO SCH (11:21)
[2017-07-29] MEDS: POTASSIUM CHLORIDE TABS 20 MEQ TABLET.ER (FP) PO SCH (11:21)
[2017-07-29] MEDS: SENNOSIDES 8.6MG TABLET (FP) PO SCH (11:22)
[2017-07-29] MEDS: RANITIDINE HCL 150 MG TABLET (FP) PO SCH (11:22)
[2017-07-29] MEDS: FUROSEMIDE 40 MG TABLET (FP) PO SCH (11:22)
[2017-07-29] MEDS: predniSONE 20 MG TABLET (UD) PO SCH ×2 (11:22→22:23)
[2017-07-29] MEDS: CALCIUM CARBONATE 650 MG TABLET PO SCH (11:23)
--- NOTE | 2017-07-29 11:28 | CONSULT ---
Consult Consult Specialty:: General Surgery Referred by:: Dr. Perez Reason for Consultation:: L side pain s/p fall with ?LUQ mass/bleeding - History of Present Illness Chief Complaint: L sided pain after fall early yesterday morning History of Present Illness: 77yo obese F s/p mechanical mitral valve replacement 2 weeks ago in [facility], was admitted ~1.5 weeks ago with SOB and has been treated for COPD exacerbation and CHF, was ready for d/c yesterday, but fell in room from standing early in the morning. She states she was just walking and fell onto her left side. At the time, she had no acute body pain, no acute bruising, head CT was negative for acute injury. She then developed left sided pain and bruising of the left flank and hip. US yesterday showed a possible complex, fluid-filled mass anterior to the left kidney, possibly stomach. She just returned from CT scan with contrast of abd/pelvis today. Surgery is consulted for possible LUQ mass, splenic injury or other acute surgical issue. Labs have shown H/H drop from to 06/07, platelets down from 124 to 78, INR had been 2 but today is 4.23 She has been on aspirin and coumadin for prosthetic valve, afib and h/o DVT in IJV, which are now held Updated T&S is pending She c/o pain in left side, upper posterior thorax and side/flank, onto hip, 05/22 Also has mild bruising of left breast laterally Seen and examined in bed after returning from CT - History Source History Provided By: Patient, Medical Record Limitations to Obtaining History: No Limitations - Past Medical History [employer]: No: Alzheimer's Cardio/Vascular: Yes: AFIB (REFUSED ANTICOAGULATION IN PAST NOW ON COUMADIN), HTN, Mitral Insufficiency (s/p valve replacement) Pulmonary: Yes: Asthma, Bronchitis, COPD Gastrointestinal: Yes: GERD Reproductive: Yes: Postmenopausal Psych: No: Addictions Musculoskeletal: Yes: Osteoarthritis Endocrine: Yes: Hyperthyroidism. No: Diabetes Mellitus Additional Medical History: LEFT POPLITEAL DVT - Past Surgical History Past Surgical History: Yes: Tubal Ligation (laparoscopic), Valve Replacement ( mechanical mitral 2 wks ago) - Alcohol/Substance Use Hx Alcohol Use: No History of Substance Use: reports: None - Smoking History Smoking history: Never smoked Have you smoked in the past 12 months: No Aproximately how many cigarettes per day: 0 - Social History ADL: Independent History of Recent Travel: No Home Medications - Allergies Allergies/Adverse Reactions: Allergies Allergy/AdvReac Type Severity Reaction Status Date / Time ampicillin [Ampicillin] Allergy Severe Swelling Verified 07/12/17 05:24 codeine [Codeine] Allergy Swelling Verified 07/12/17 05:24 - Home Medications Home Medications: Ambulatory Orders Acetaminophen [Tylenol] 650 mg PO BID 07/12/17 Albuterol 2.5/Ipratropium 0.5 [Duoneb -] 1 neb NEB Q4H 07/12/17 Aspirin [ASA -] 81 mg PO DAILY 07/12/17 Budesonide [Pulmicort Flexhaler] 90 mcg IH BID 07/12/17 Famotidine [Pepcid] 20 mg PO DAILY 07/12/17 Furosemide [Lasix] 40 mg PO DAILY 07/12/17 Potassium Chloride 20 meq PO DAILY 07/12/17 Sennosides [Senna] 17.2 mg PO DAILY 07/12/17 Diltiazem HCl [Diltiazem 24Hr Cd] 180 mg PO DAILY #30 tab MDD 1 07/18/17 Furosemide [Lasix -] 40 mg PO DAILY tablet 07/18/17 Insulin (Levemir) [Levemir Vial] 10 units SQ AM ml 07/18/17 Potassium Chloride [K-Dur -] 20 meq PO DAILY #14 tab MDD 1 07/18/17 Warfarin Na [Coumadin -] 6 mg PO SuTuThSa@1800 #30 tablet MDD 1 07/18/17 Warfarin Sodium [Coumadin] 4 mg PO ASDIR #20 tab MDD 1 07/18/17 Prednisone [Deltasone -] 10 mg PO ASDIR #100 tab 07/24/17 Family Disease History - Family Disease History Family Disease History: Diabetes: Father (HTN) Review of Systems - Review of Systems Constitutional: denies: Chills, Fever Eyes: reports: Other (uses reading glasses). denies: Recent Change in Vision HENT: denies: Difficult Swallowing, Hearing Loss, Throat Pain Neck: denies: Swollen Glands, Tenderness Cardiovascular: denies: Chest Pain, Palpitations Respiratory: reports: Cough (productive), SOB (had been admitted with SOB right after d/c from heart surgery) Gastrointestinal: denies: Abdominal Pain, Constipation, Diarrhea, Nausea, Vomiting Genitourinary: denies: Burning, Dysuria Musculoskeletal: denies: Back Pain, Joint Pain Integumentary: reports: Bruising (L lower side, flank and hip). denies: Rash Neurological: denies: Dizziness, Headache, Unsteady Gait Hematology/Lymphatic: reports: Easily Bruised. denies: Excessive Bleeding Pain Intensity: 8 Physical Exam Vital Signs: Vital Signs Temperature 98 F 07/29/17 08:07 Pulse Rate 111 H 07/29/17 11:21 Respiratory Rate 20 07/29/17 08:07 Blood Pressure 111/70 07/29/17 08:07 O2 Sat by Pulse Oximetry (%) 96 07/29/17 08:00 afib Constitutional: Yes: No Distress, Calm, Obese Eyes: Yes: Conjunctiva Clear, EOM Intact HENT: Yes: Atraumatic, Normocephalic Neck: Yes: Supple, Trachea Midline Cardiovascular: Yes: Pulse Irregular, Other (click from valve). No: Bradycardia , Tachycardia Respiratory: Yes: Regular, CTA Bilaterally, Cough (productive/wet), Diminished ( L base), On Nasal O2, Wheezes (heard once on right, expiratory) Gastrointestinal: Yes: Normal Bowel Sounds, Soft, Abdomen, Obese. No: Palpable Mass, Tenderness ...Rectal Exam: Yes: Deferred Renal/: Yes: CVA Tenderness - Left. No: [place] Paz Present Breast(s): Yes: Left, Skin Changes (linear area of erythema/mild bruise over lateral side) Musculoskeletal: Yes: Back Pain (over left lateral upper and lower back/flank), Muscle Pain (tender over left side of thorax and abd/flank, including left posterior lower chest/upper back), Other Extremities: No: Cool, Cyanosis, Deformity Edema: No Peripheral Pulses WNL: Yes Integumentary: Yes: Bruising (deep ecchymosis over left hip/flank/lower side/ posterior lateral back; no bruising at left chest/upper back or upper left side of abdomen). No: Jaundice, Rash Wound/Incision: Yes: Reddened (over deep bruising on left hip, slight abrasion, no bleeding) Neurological: Yes: Alert, Oriented Psychiatric: Yes: Alert, Oriented Labs: CBC, BMP 07/29/17 10:45 07/29/17 06:15 Abnormal Lab Results 07/29/17 07/29/17 07/29/17 06:15 06:15 06:15 WBC 25.7 H D RBC 2.75 L D Hgb 8.5 L D Hct 26.1 L D RDW 17.7 H Plt Count 78 L D Neutrophils % Neutrophils % (Manual) 95 H* Lymphocytes % Lymphocytes % (Manual) 4 L D PT with INR 47.80 H INR 4.23 H* D Anion Gap 7 L BUN 23 H Random Glucose 159 H Calcium 7.2 L AST 9 L Total Protein 4.2 L D Albumin 2.2 L 07/29/17 07/29/17 10:45 10:45 WBC 26.6 H RBC 2.65 L Hgb 8.1 L Hct 25.2 L RDW 17.7 H Plt Count 77 L Neutrophils % 90.5 H Neutrophils % (Manual) Lymphocytes % 3.1 L D Lymphocytes % (Manual) PT with INR 45.40 H INR 4.02 H* Anion Gap BUN Random Glucose Calcium AST Total Protein Albumin H/H down from , now low but stable 06/06 platelets were 200s, 165, 124, now low but stable 77 INR 4, PTT 33 Imaging - Results Cat Scan: Report Reviewed, Image Reviewed (large intramuscular hematoma left side of lower thorax and abdomen/flank (no chest imaging), no intraperitoneal injury or fluid, no apparent lower rib fractures, no obvious active bleeding, fibroid uterus) Ultrasound: Report Reviewed (from yesterday) Problem List - Problems (1) Traumatic hematoma of multiple sites Assessment/Plan: s/p fall from standing in room early yesterday morning onto left side tenderness over entire left posterior and lateral mid-lower thorax and flank/ side/hip with ecchymosis over lower aspect, mostly over left flank and hip, small overlying abrasion CT shows no intraperitoneal injury but large intramuscular hematoma and soft tissue injury/swelling over left side no apparent active bleeding labs stabilized but INR still high ASA, coumadin on hold - agree with keeping INR at lowest possible safe level for mitral mechanical valve/afib/DVT consider hematology consult T&S sent, trend labs for stability at risk for further bleeding, especially if any further injury chest imaging pending to assess for rib fractures and eval left pleural effusion further pulmonary on board warm compresses to areas may help with comfort and resolution, but reabsorption will be slow 15-20mins at a time, not directly on skin pain control prn, avoid NSAIDs fall precautions and assist as needed to prevent further injury ok to be OOB, walking and moving around as able - position changes still important encourage IS and pulmonary toilet with expectoration of sputum No acute general surgical issues, no surgical intervention indicated. Ok to resume diet from surgical standpoint if chest CT is ok. Hold metformin at least 48 hrs from today (IV contrast). Thank you for the opportunity to participate in the care of this patient. Code(s): T07.XXXA - UNSPECIFIED MULTIPLE INJURIES, INITIAL ENCOUNTER (2) Traumatic hematoma of flank Code(s): S30.1XXA - CONTUSION OF ABDOMINAL WALL, INITIAL ENCOUNTER Qualifiers : Encounter type: initial encounter Qualified Code(s): S30.1XXA - Contusion of abdominal wall, initial encounter; S30.1XXA - Contusion of abdominal wall, initial encounter (3) Intramuscular hematoma Code(s): T14.8XXA - OTHER INJURY OF UNSPECIFIED BODY REGION, INITIAL ENCOUNTER (4) Traumatic hematoma of left thoracic region Code(s): S20.20XA - CONTUSION OF THORAX, UNSPECIFIED, INITIAL ENCOUNTER Qualifiers: Encounter type: initial encounter Qualified Code(s): S20.20XA - Contusion of thorax, unspecified, initial encounter; S20.20XA - Contusion of thorax, unspecified, initial encounter (5) Supratherapeutic INR Code(s): R79.1 - ABNORMAL COAGULATION PROFILE (6) Anemia due to acute blood loss Code(s): D62 - ACUTE POSTHEMORRHAGIC ANEMIA (7) Thrombocytopenia due to blood loss Code(s): D69.59 - OTHER SECONDARY THROMBOCYTOPENIA (8) S/P MVR (mitral valve replacement) Code(s): Z95.2 - PRESENCE OF PROSTHETIC HEART VALVE (9) Atrial fibrillation with rapid ventricular response Code(s): I48.91 - UNSPECIFIED ATRIAL FIBRILLATION (10) Acute on chronic diastolic (congestive) heart failure Code(s): I50.33 - ACUTE ON CHRONIC DIASTOLIC (CONGESTIVE) HEART FAILURE (11) Hypertension associated with diabetes Code(s): E11.59 - TYPE 2 DIABETES MELLITUS WITH OTH CIRCULATORY COMPLICATIONS I10 - ESSENTIAL (PRIMARY) HYPERTENSION (12) COPD (chronic obstructive pulmonary disease) with chronic bronchitis Code(s): J44.9 - CHRONIC OBSTRUCTIVE PULMONARY DISEASE, UNSPECIFIED (13) DVT (deep venous thrombosis) Code(s): I82.409 - ACUTE EMBOLISM AND THOMBOS UNSP DEEP VN UNSP LOWER EXTREMITY Qualifiers: DVT location: non-extremity vein Chronicity: unspecified Qualified Code(s): I82.90 - Acute embolism and thrombosis of unspecified vein; I82.90 - Acute embolism and thrombosis of unspecified vein (14) Hyperthyroidism Code(s): E05.90 - THYROTOXICOSIS, UNSP WITHOUT THYROTOXIC CRISIS OR STORM
[2017-07-29] MEDS: NEBIVOLOL 2.5 MG TABLET (FP) PO SCH (11:37)
[2017-07-29 11:38] LABS: INR 4.02 (0.82-1.09)
[2017-07-29 16:06] LABS: MCH 30.5 pg (25.7-33.7); MCHC 32.3 g/dl (32.0-36.0); MEAN CELL VOLUME 94.4 fl (80-96); MEAN PLT VOLUME 9.8 fl (7.5-11.1); PLATELET COUNT 89 K/MM3 (134-434); RDW 17.6 % (11.6-15.6); WHITE BLOOD COUNT 28.6 K/mm3 (4.0-10.0)
[2017-07-29 16:54] LABS: PLATELET ESTIMATE DECREASED (NORMAL); TOTAL CELLS COUNTED 100
[2017-07-29] MEDS: MONTELUKAST NA 10 MG TABLET PO SCH (22:24)
[2017-07-30] MEDS: ACETYLCYSTEINE 20% 200MG/ML 4 ML VIAL *FOR ORAL / INH USE ONLY NEB SCH ×3 (06:34→18:13)
[2017-07-30] MEDS: ALBUTEROL SO4 0.083% IH SOL 2.5 MG/3 ML VIAL.NEB. NEB PRN ×2 (06:35→11:30)
[2017-07-30] MEDS: INSULIN DETEMIR 100 UNITS/ML MDV SQ SCH (06:36)
[2017-07-30] MEDS: INSULIN SLIDING SCALE (NOVOLOG) 1 VIAL SQ SCH ×4 (06:36→22:42)
--- NOTE | 2017-07-30 09:04 | PN ---
Progress Note, Physician Chief Complaint: Correction to previous notes: patient underwent BIO MVR (not MVR). CT A/P showed abdominal wall hematoma History of Present Illness: tele: afib at 100bpm average rate - Current Medication List Current Medications: Active Medications Acetaminophen (Tylenol -) 650 mg PO Q6H PRN PRN Reason: PAIN Last Admin: 07/29/17 22:24 Dose: 650 mg Acetylcysteine (Mucomyst 20 Oral / Inh Use Only*) 200 mg NEB QIDR [facility] Last Admin: 07/30/17 06:34 Dose: 200 mg Albuterol Sulfate (Ventolin 0.083% Nebulizer Soln -) 1 amp NEB Q6H PRN PRN Reason: SHORT OF BREATH/WHEEZING Last Admin: 07/30/17 06:35 Dose: 1 amp Aspirin (Asa -) 81 mg PO DAILY [facility] Last Admin: 07/28/17 10:50 Dose: 81 mg Budesonide (Pulmicort 0.25 Mg Nebulizer -) 1 amp NEB BID [facility] Last Admin: 07/29/17 22:50 Dose: 1 amp Calcium Carbonate (Calcium Carbonate -) 650 mg PO DAILY [facility] Last Admin: 07/29/17 11:23 Dose: 650 mg Digoxin (Lanoxin -) 0.125 mg PO DAILY [facility] Last Admin: 07/29/17 11:21 Dose: 0.125 mg Diltiazem HCl (Cardizem Cd -) 360 mg PO DAILY [facility] Last Admin: 07/29/17 11:22 Dose: 360 mg Furosemide (Lasix -) 40 mg PO DAILY [facility] Last Admin: 07/29/17 11:22 Dose: 40 mg Guaifenesin (Diabetic Tussin Dm -) 5 ml PO Q4H PRN PRN Reason: COUGH Last Admin: 07/28/17 21:41 Dose: 5 ml Insulin Aspart (Novolog Vial Sliding Scale -) 1 vial SQ ACHS [facility] PRN Reason: Protocol Last Admin: 07/30/17 06:36 Dose: Not Given Insulin Detemir (Levemir Vial) 10 units SQ AM [facility] Last Admin: 07/30/17 06:36 Dose: 10 units Metformin HCl (Glucophage -) 500 mg PO BID@0700,1630 [facility] Last Admin: 07/29/17 06:27 Dose: Not Given Montelukast Sodium (Singulair -) 10 mg PO HS [facility] Last Admin: 07/29/17 22:24 Dose: 10 mg Nebivolol (Bystolic -) 2.5 mg PO DAILY [facility] Last Admin: 07/29/17 11:37 Dose: 2.5 mg Potassium Chloride (K-Dur -) 20 meq PO DAILY [facility] Last Admin: 07/29/17 11:21 Dose: 20 meq Prednisone (Deltasone -) 40 mg PO BID [facility] Last Admin: 07/29/17 22:23 Dose: 40 mg Ranitidine HCl (Zantac -) 150 mg PO DAILY [facility] Last Admin: 07/29/17 11:22 Dose: 150 mg Senna (Senna -) 1 tab PO DAILY [facility] Last Admin: 07/29/17 11:22 Dose: 1 tab Warfarin Sodium (Coumadin -) 5 mg PO DAILY@1800 [facility] Last Admin: 07/28/17 18:45 Dose: 5 mg - Objective Vital Signs: Vital Signs Temperature 97.9 F 07/30/17 07:56 Pulse Rate 77 07/30/17 07:56 Respiratory Rate 20 07/30/17 07:56 Blood Pressure 103/66 07/30/17 07:56 O2 Sat by Pulse Oximetry (%) 100 07/29/17 20:37 Constitutional: Yes: No Distress Eyes: Yes: Conjunctiva Clear Cardiovascular: Yes: Pulse Irregular Respiratory: Yes: Other (scattered rhonchi) Gastrointestinal: Yes: Soft, Abdomen, Obese Edema: No Neurological: Yes: Alert, Oriented ...Motor Strength: WNL Labs: CBC, BMP 07/29/17 15:45 07/29/17 06:15 INR, PTT INR 4.02 (0.82-1.09) H* 07/29/17 10:45 - ....Imaging EKG: Image Reviewed Assessment/Plan Assessment/Plan AE COPD Acute on chronic diastolic CHF, mild S/P Bioprosthetic MVR, 2 weeks ago Permanent AF Chronic COPD with exacerbation L IJ thrombus Fall yesterday, ? RP bleed Thrombocytopenia Abdominal wall hematoma REC: 1. Agree w/ holding ASA and coumadin for now, await today's INR. AC is primarily for AF. 2. ?Etiology of thrombocytopenia, Heme evaluating 3. Continue tele: average AF rate around 100bpm, acceptable for now
--- NOTE | 2017-07-30 09:12 | PN ---
Progress Note, Physician History of Present Illness: c/o sob c/o weakness no cp no smiley - Current Medication List Current Medications: Active Medications Acetaminophen (Tylenol -) 650 mg PO Q6H PRN PRN Reason: PAIN Last Admin: 07/29/17 22:24 Dose: 650 mg Acetylcysteine (Mucomyst 20 Oral / Inh Use Only*) 200 mg NEB QIDR [facility] Last Admin: 07/30/17 06:34 Dose: 200 mg Albuterol Sulfate (Ventolin 0.083% Nebulizer Soln -) 1 amp NEB Q6H PRN PRN Reason: SHORT OF BREATH/WHEEZING Last Admin: 07/30/17 06:35 Dose: 1 amp Aspirin (Asa -) 81 mg PO DAILY [facility] Last Admin: 07/28/17 10:50 Dose: 81 mg Budesonide (Pulmicort 0.25 Mg Nebulizer -) 1 amp NEB BID [facility] Last Admin: 07/29/17 22:50 Dose: 1 amp Calcium Carbonate (Calcium Carbonate -) 650 mg PO DAILY [facility] Last Admin: 07/29/17 11:23 Dose: 650 mg Digoxin (Lanoxin -) 0.125 mg PO DAILY [facility] Last Admin: 07/29/17 11:21 Dose: 0.125 mg Diltiazem HCl (Cardizem Cd -) 360 mg PO DAILY [facility] Last Admin: 07/29/17 11:22 Dose: 360 mg Furosemide (Lasix -) 40 mg PO DAILY [facility] Last Admin: 07/29/17 11:22 Dose: 40 mg Guaifenesin (Diabetic Tussin Dm -) 5 ml PO Q4H PRN PRN Reason: COUGH Last Admin: 07/28/17 21:41 Dose: 5 ml Insulin Aspart (Novolog Vial Sliding Scale -) 1 vial SQ ACHS [facility] PRN Reason: Protocol Last Admin: 07/30/17 06:36 Dose: Not Given Insulin Detemir (Levemir Vial) 10 units SQ AM [facility] Last Admin: 07/30/17 06:36 Dose: 10 units Metformin HCl (Glucophage -) 500 mg PO BID@0700,1630 [facility] Last Admin: 07/29/17 06:27 Dose: Not Given Montelukast Sodium (Singulair -) 10 mg PO HS [facility] Last Admin: 07/29/17 22:24 Dose: 10 mg Nebivolol (Bystolic -) 2.5 mg PO DAILY [facility] Last Admin: 07/29/17 11:37 Dose: 2.5 mg Potassium Chloride (K-Dur -) 20 meq PO DAILY [facility] Last Admin: 07/29/17 11:21 Dose: 20 meq Prednisone (Deltasone -) 40 mg PO BID [facility] Last Admin: 07/29/17 22:23 Dose: 40 mg Ranitidine HCl (Zantac -) 150 mg PO DAILY [facility] Last Admin: 07/29/17 11:22 Dose: 150 mg Senna (Senna -) 1 tab PO DAILY [facility] Last Admin: 07/29/17 11:22 Dose: 1 tab Warfarin Sodium (Coumadin -) 5 mg PO DAILY@1800 [facility] Last Admin: 07/28/17 18:45 Dose: 5 mg - Objective Vital Signs: Vital Signs Temperature 97.9 F 07/30/17 07:56 Pulse Rate 77 07/30/17 07:56 Respiratory Rate 20 07/30/17 07:56 Blood Pressure 103/66 07/30/17 07:56 O2 Sat by Pulse Oximetry (%) 100 07/29/17 20:37 Cardiovascular: Yes: S1, S2 Respiratory: Yes: Diminished, Rhonchi Gastrointestinal: Yes: Normal Bowel Sounds, Soft, Other (flank hematoma) Edema: No Labs: CBC, BMP 07/29/17 15:45 07/29/17 06:15 INR, PTT INR 4.02 (0.82-1.09) H* 07/29/17 10:45 Problem List - Problems (1) Internal jugular vein thrombosis Code(s): I82.C19 - ACUTE EMBOLISM AND THROMBOSIS OF UNSP INTERNAL JUGULAR VEIN (2) Retroperitoneal bleed Code(s): R58 - HEMORRHAGE, NOT ELSEWHERE CLASSIFIED Assessment/Plan - Problems (1) Fall Assessment/Plan: s/p fall ct head negative has left upper abdominal pain / mass r/o hematoma/bleed ultrasound noted--ct scan noted muscle hematoma--d/w surgery--observe--monitor labs Code(s): W19.XXXA - UNSPECIFIED FALL, INITIAL ENCOUNTER (2) Internal jugular vein thrombosis Assessment/Plan: seen by vascular surgeon already on AC keep INR 2.5-3.5--on hold now Code(s): I82.C19 - ACUTE EMBOLISM AND THROMBOSIS OF UNSP INTERNAL JUGULAR VEIN (3) S/P MVR (mitral valve replacement) Assessment/Plan: done about 5 weeks ago off AC d/w cardio no need for ac for valve Code(s): Z95.2 - PRESENCE OF PROSTHETIC HEART VALVE (4) CHF (congestive heart failure) Assessment/Plan: on po lasix check cmp today on k dur supplements Code(s): I50.9 - HEART FAILURE, UNSPECIFIED Qualifiers: (5) COPD (chronic obstructive pulmonary disease) with chronic bronchitis Assessment/Plan: prednisone taper 30mg po bid chest CT noted--/mass--pulm follow up--id consult bronchodilator mucomyst Code(s): J44.9 - CHRONIC OBSTRUCTIVE PULMONARY DISEASE, UNSPECIFIED (6) Atrial fibrillation Assessment/Plan: permanent afb cardizem and AC Code(s): I48.91 - UNSPECIFIED ATRIAL FIBRILLATION Qualifiers: Atrial fibrillation type: permanent Qualified Code(s): I48.2 - Chronic atrial fibrillation; I48.2 - Chronic atrial fibrillation; I48.2 - Chronic atrial fibrillation; I48.2 - Chronic atrial fibrillation (7) Hyperglycemia Assessment/Plan: seen by endo metformin and levemir Code(s): R73.9 - HYPERGLYCEMIA, UNSPECIFIED
[2017-07-30 09:52] LABS: BASOPHIL 0.1 % (0-2.0); MCH 30.5 pg (25.7-33.7); MCHC 32.1 g/dl (32.0-36.0); MEAN PLT VOLUME 8.7 fl (7.5-11.1); NEUTROPHILS 91.6 % (42.8-82.8); PLATELET COUNT 75 K/MM3 (134-434); RDW 18.1 % (11.6-15.6); WHITE BLOOD COUNT 23.1 K/mm3 (4.0-10.0)
[2017-07-30 09:55] LABS: ARTERIAL BLD GAS O2 SATURATION 99.4 % (90-98.9); ARTERIAL BLOOD GAS BASE EXCESS 4.1 meq/l (-2-2); ARTERIAL BLOOD GAS HCO3 26.9 meq/L (22-26); ARTERIAL BLOOD GAS pH 7.52 (7.35-7.45)
[2017-07-30 09:56] LABS: ALLENS TEST POSITIVE; ART PUNCT SITE RIGHT RADIAL
[2017-07-30 09:57] LABS: LPM/O2% Y; ON ANTICOAG? NASAL; PT. ON O2? LRA; TYPE OF O2 2L
[2017-07-30] MEDS: BUDESONIDE 0.25 MG/2ML INH SUSP VIAL NEB SCH ×2 (10:10→22:23)
[2017-07-30 10:18] LABS: ALBUMIN 2.3 g/dl (3.4-5.0); ANION GAP 6 (8-16); CO2 29 mmol/L (21-32); CREATININE 0.8 mg/dL (0.55-1.02); GLUCOSE,RANDOM 193 mg/dL (74-106); SGOT/AST 12 U/L (15-37); SGPT/ALT 15 U/L (12-78)
[2017-07-30 10:22] LABS: ALK PHOS 60 U/L (45-117); BILIRUBIN,TOTAL 0.5 mg/dL (0.2-1.0); CPK 157 IU/L (26-192); TOT PROT 4.7 g/dl (6.4-8.2); TROPONIN I 0.03 ng/ml (0.00-0.05)
[2017-07-30 10:49] LABS: PROTHROMBIN TIME (PATIENT) 47.4 SEC (9.98-11.88)
[2017-07-30 10:54] LABS: INR 4.19 (0.82-1.09)
--- NOTE | 2017-07-30 11:16 | PN ---
Progress Note, Physician History of Present Illness: pulmonary alert,feeling better,-resp distress. - Current Medication List Current Medications: Active Medications Acetaminophen (Tylenol -) 650 mg PO Q6H PRN PRN Reason: PAIN Last Admin: 07/29/17 22:24 Dose: 650 mg Acetylcysteine (Mucomyst 20 Oral / Inh Use Only*) 200 mg NEB QIDR [facility] Last Admin: 07/30/17 06:34 Dose: 200 mg Albuterol Sulfate (Ventolin 0.083% Nebulizer Soln -) 1 amp NEB Q6H PRN PRN Reason: SHORT OF BREATH/WHEEZING Last Admin: 07/30/17 06:35 Dose: 1 amp Aspirin (Asa -) 81 mg PO DAILY [facility] Last Admin: 07/28/17 10:50 Dose: 81 mg Budesonide (Pulmicort 0.25 Mg Nebulizer -) 1 amp NEB BID [facility] Last Admin: 07/29/17 22:50 Dose: 1 amp Calcium Carbonate (Calcium Carbonate -) 650 mg PO DAILY [facility] Last Admin: 07/29/17 11:23 Dose: 650 mg Digoxin (Lanoxin -) 0.125 mg PO DAILY [facility] Last Admin: 07/29/17 11:21 Dose: 0.125 mg Diltiazem HCl (Cardizem Cd -) 360 mg PO DAILY [facility] Last Admin: 07/29/17 11:22 Dose: 360 mg Furosemide (Lasix -) 40 mg PO DAILY [facility] Last Admin: 07/29/17 11:22 Dose: 40 mg Guaifenesin (Diabetic Tussin Dm -) 5 ml PO Q4H PRN PRN Reason: COUGH Last Admin: 07/28/17 21:41 Dose: 5 ml Insulin Aspart (Novolog Vial Sliding Scale -) 1 vial SQ ACHS [facility] PRN Reason: Protocol Last Admin: 07/30/17 06:36 Dose: Not Given Insulin Detemir (Levemir Vial) 10 units SQ AM [facility] Last Admin: 07/30/17 06:36 Dose: 10 units Metformin HCl (Glucophage -) 500 mg PO BID@0700,1630 [facility] Last Admin: 07/29/17 06:27 Dose: Not Given Montelukast Sodium (Singulair -) 10 mg PO HS [facility] Last Admin: 07/29/17 22:24 Dose: 10 mg Nebivolol (Bystolic -) 2.5 mg PO DAILY [facility] Last Admin: 07/29/17 11:37 Dose: 2.5 mg Potassium Chloride (K-Dur -) 20 meq PO DAILY [facility] Last Admin: 07/29/17 11:21 Dose: 20 meq Prednisone (Deltasone -) 40 mg PO BID [facility] Last Admin: 07/29/17 22:23 Dose: 40 mg Ranitidine HCl (Zantac -) 150 mg PO DAILY [facility] Last Admin: 07/29/17 11:22 Dose: 150 mg Senna (Senna -) 1 tab PO DAILY [facility] Last Admin: 07/29/17 11:22 Dose: 1 tab Warfarin Sodium (Coumadin -) 5 mg PO DAILY@1800 [facility] Last Admin: 07/28/17 18:45 Dose: 5 mg - Objective Vital Signs: Vital Signs Temperature 97.9 F 07/30/17 07:56 Pulse Rate 77 07/30/17 07:56 Respiratory Rate 20 07/30/17 08:00 Blood Pressure 103/66 07/30/17 07:56 O2 Sat by Pulse Oximetry (%) 96 07/30/17 08:00 Constitutional: Yes: Well Nourished, Calm Eyes: Yes: WNL HENT: Yes: WNL Neck: Yes: WNL Cardiovascular: Yes: Pulse Irregular, S1, S2 Respiratory: Yes: Diminished Gastrointestinal: Yes: Normal Bowel Sounds, Soft Extremities: Yes: WNL Edema: No Labs: CBC, BMP 07/30/17 09:36 INR, PTT INR 4.19 (0.82-1.09) H* 07/30/17 09:36 - ....Imaging Cat Scan: Report Reviewed, Image Reviewed Assessment/Plan IMP COPD /ASTHMA EXACERBATION CHF MVR RECENT/NL CORONARIES PERMANENT AF H/O VTE HTN/PULMONARY HTN LLL OPACITY LIKELY PARTIAL ATELECTASIS LLL LEFT IJ PHLEBITIS ANEMIA THROMBOCYTOPENIA HEMATOMA O2 BRONCHODILATORS A/C PER INR DIURETICS PREDNISONE 40 BID BRONCHODILATORS CHEST PT MUCOMYST F/U CHEST CT OUTPATIENT IF NO CHANGE LLL CONSOLIDATION CONSIDER BRONCHOSCOPY PULMONARY REHAB POST DISCHARGE MONITOR H+H,PLTS NORMAL TRANSFUSION THRESHOLD DR YE Problem List - Problems (1) COPD (chronic obstructive pulmonary disease) with chronic bronchitis Code(s): J44.9 - CHRONIC OBSTRUCTIVE PULMONARY DISEASE, UNSPECIFIED (2) Acute asthma exacerbation Code(s): J45.901 - UNSPECIFIED ASTHMA WITH (ACUTE) EXACERBATION Qualifiers: (3) Anxiety and depression Code(s): F41.9 - ANXIETY DISORDER, UNSPECIFIED F32.9 - MAJOR DEPRESSIVE DISORDER, SINGLE EPISODE, UNSPECIFIED (4) Mitral valve replaced Code(s): Z95.2 - PRESENCE OF PROSTHETIC HEART VALVE
[2017-07-30] MEDS: POTASSIUM CHLORIDE TABS 20 MEQ TABLET.ER (FP) PO SCH (12:08)
[2017-07-30] MEDS: predniSONE 20 MG TABLET (UD) PO SCH ×2 (12:08→22:42)
[2017-07-30] MEDS: CALCIUM CARBONATE 650 MG TABLET PO SCH (12:08)
[2017-07-30] MEDS: DIGOXIN 0.125 MG TABLET (FP) PO SCH (12:09)
[2017-07-30] MEDS: SENNOSIDES 8.6MG TABLET (FP) PO SCH (12:09)
[2017-07-30] MEDS: RANITIDINE HCL 150 MG TABLET (FP) PO SCH (12:10)
[2017-07-30] MEDS: FUROSEMIDE 40 MG TABLET (FP) PO SCH (12:10)
[2017-07-30] MEDS: NEBIVOLOL 2.5 MG TABLET (FP) PO SCH (12:19)
--- NOTE | 2017-07-30 14:22 | PN ---
Physical Exam: INFECTIOUS DISEASE SUBJECTIVE: Patient seen and examined. ID reconsulted for leukocytosis. Chart reviewed extensively, events noted. Patient denies fevers, chills, CP, SOB. OBJECTIVE: Vital Signs Period Temp Pulse Resp BP Sys/Urrutia Pulse Ox Last 24 Hr 97.9 F-98.9 F 77-115 18-20 103-119/53-73 96-100 GEN: AAOx3, NAD, Lying in bed, shallow breathing but comfortable HEENT: PERRLA, EOMi CV: S1, S2, RRR LUNG: Mild bibasilar crackles ABD: Soft, NT, ND MSK: Bruising noted on L side of abdomen Active Medications Generic Name Dose Route Start Last Admin Trade Name Freq PRN Reason Stop Dose Admin Acetaminophen 650 mg 07/14/17 04:07 07/29/17 22:24 Tylenol - PO 650 mg Q6H PRN Administration PAIN Acetylcysteine 200 mg 07/16/17 18:00 07/30/17 11:30 Mucomyst 20 Oral / Inh Use Only* NEB 200 mg QIDR BLESSING Administration Albuterol Sulfate 1 amp 07/27/17 17:18 07/30/17 11:30 Ventolin 0.083% Nebulizer Soln - NEB 1 amp Q6H PRN Administration SHORT OF BREATH/WHEEZING Aspirin 81 mg 07/12/17 10:00 07/28/17 10:50 Asa - PO 81 mg DAILY BLESSING Administration Budesonide 1 amp 07/12/17 11:00 07/30/17 10:10 Pulmicort 0.25 Mg Nebulizer - NEB Not Given BID BLESSING Calcium Carbonate 650 mg 07/13/17 14:15 07/30/17 12:08 Calcium Carbonate - PO 650 mg DAILY BLESSING Administration Digoxin 0.125 mg 07/24/17 10:00 07/30/17 12:09 Lanoxin - PO 0.125 mg DAILY BLESSING Administration Diltiazem HCl 360 mg 07/20/17 10:00 07/30/17 12:09 Cardizem Cd - PO 360 mg DAILY BLESSING Administration Furosemide 40 mg 07/14/17 10:00 07/30/17 12:10 Lasix - PO 40 mg DAILY BLESSING Administration Guaifenesin 5 ml 07/13/17 09:54 07/28/17 21:41 Diabetic Tussin Dm - PO 5 ml Q4H PRN Administration COUGH Insulin Aspart 1 vial 07/14/17 07:00 07/30/17 12:11 Novolog Vial Sliding Scale - SQ 2 units ACHS BLESSING Administration Protocol Insulin Detemir 10 units 07/17/17 07:00 07/30/17 06:36 Levemir Vial SQ 10 units AM BLESSING Administration Metformin HCl 500 mg 07/21/17 07:00 07/29/17 06:27 Glucophage - PO Not Given BID@0700,1630 BLESSING Montelukast Sodium 10 mg 07/22/17 22:00 07/29/17 22:24 Singulair - PO 10 mg HS BLESSING Administration Nebivolol 2.5 mg 07/24/17 10:00 07/30/17 12:19 Bystolic - PO 2.5 mg DAILY BLESSING Administration Potassium Chloride 20 meq 07/12/17 10:00 07/30/17 12:08 K-Dur - PO 20 meq DAILY BLESSING Administration Prednisone 40 mg 07/28/17 22:00 07/30/17 12:08 Deltasone - PO 40 mg BID BLESSING Administration Ranitidine HCl 150 mg 07/12/17 10:00 07/30/17 12:10 Zantac - PO 150 mg DAILY BLESSING Administration Senna 1 tab 07/12/17 10:00 07/30/17 12:09 Senna - PO 1 tab DAILY BLESSING Administration Warfarin Sodium 5 mg 07/27/17 18:00 07/28/17 18:45 Coumadin - PO 5 mg DAILY@1800 BLESSING Administration CBC, BMP 07/30/17 09:36 07/30/17 09:36 Microbiology 07/12/17 06:00 Blood - Peripheral Venous Blood Culture - Final NO GROWTH AFTER 5 DAYS INCUBATION 07/12/17 06:00 Blood - Peripheral Venous Blood Culture - Final NO GROWTH AFTER 5 DAYS INCUBATION ASSESSMENT/PLAN: Ms. Magaña is a 77yo F with PMHx of Afib, Bioprosthetic mitral valve replacement, CHF, COPD, who originally presented with SOB and wheezing. ID was consulted due to leukocytosis. # Leukocytosis - Unlikely underlying infectious process, no symptoms, likely multifactorial from fall and daily steroids - Afebrile but patient likely cannot mount a fever due to daily steroids, will draw blood cx to check - Lactic acid likely 2/2 blood loss, as H/H trending down - Would recommend transfusion as needed - No abx at this time Discussed w/ Dr Edmond. Will follow blood cx Cruz Dinh MD - [id number] Infectious Disease Visit type - Emergency Visit Emergency Visit: No - New Patient This patient is new to me today: No - Critical Care Critical Care patient: No - Discharge Referral Referred to [facility] No
--- NOTE | 2017-07-30 14:31 | PN ---
Progress Note, Physician Chief Complaint: L flank pain, bruising, swelling History of Present Illness: Pt with mild confusion this am, had head CT which was negative for acute findings. Since then, has remembered more about yesterday. Resting comfortably, but arouses easily, seems A&O on my exam. Able to tell me her valve was "cow," not "pig." CORRECTION: pt has BIOPROSTHETIC mitral valve, NOT mechanical. Cardiology note appreciated. Operation was ~5 wks ago, she has been in the hospital for 2.[address] yesterday and films showed no rib fractures, + left pleural effusion with associated mass vs mass-like atelectasis - appears similar to 07/15 and 07/16 CT's, but was not present preop in February. Pt with some difficulty with deep breathing secondary to pain, but trying. Pain is manageable , though it does hurt when she moves and coughs. - Current Medication List Current Medications: Active Medications Acetaminophen (Tylenol -) 650 mg PO Q6H PRN PRN Reason: PAIN Last Admin: 07/29/17 22:24 Dose: 650 mg Acetylcysteine (Mucomyst 20 Oral / Inh Use Only*) 200 mg NEB QIDR BLESSING Last Admin: 07/30/17 11:30 Dose: 200 mg Albuterol Sulfate (Ventolin 0.083% Nebulizer Soln -) 1 amp NEB Q6H PRN PRN Reason: SHORT OF BREATH/WHEEZING Last Admin: 07/30/17 11:30 Dose: 1 amp Aspirin (Asa -) 81 mg PO DAILY BLESSING Last Admin: 07/28/17 10:50 Dose: 81 mg Budesonide (Pulmicort 0.25 Mg Nebulizer -) 1 amp NEB BID BLESSING Last Admin: 07/30/17 10:10 Dose: Not Given Calcium Carbonate (Calcium Carbonate -) 650 mg PO DAILY [facility] Last Admin: 07/30/17 12:08 Dose: 650 mg Digoxin (Lanoxin -) 0.125 mg PO DAILY BLESSING Last Admin: 07/30/17 12:09 Dose: 0.125 mg Diltiazem HCl (Cardizem Cd -) 360 mg PO DAILY [facility] Last Admin: 07/30/17 12:09 Dose: 360 mg Furosemide (Lasix -) 40 mg PO DAILY BLESSING Last Admin: 07/30/17 12:10 Dose: 40 mg Guaifenesin (Diabetic Tussin Dm -) 5 ml PO Q4H PRN PRN Reason: COUGH Last Admin: 07/28/17 21:41 Dose: 5 ml Insulin Aspart (Novolog Vial Sliding Scale -) 1 vial SQ ACHS [facility] PRN Reason: Protocol Last Admin: 07/30/17 12:11 Dose: 2 units Insulin Detemir (Levemir Vial) 10 units SQ AM [facility] Last Admin: 07/30/17 06:36 Dose: 10 units Metformin HCl (Glucophage -) 500 mg PO BID@0700,1630 [facility] Last Admin: 07/29/17 06:27 Dose: Not Given Montelukast Sodium (Singulair -) 10 mg PO HS [facility] Last Admin: 07/29/17 22:24 Dose: 10 mg Nebivolol (Bystolic -) 2.5 mg PO DAILY [facility] Last Admin: 07/30/17 12:19 Dose: 2.5 mg Potassium Chloride (K-Dur -) 20 meq PO DAILY [facility] Last Admin: 07/30/17 12:08 Dose: 20 meq Prednisone (Deltasone -) 40 mg PO BID [facility] Last Admin: 07/30/17 12:08 Dose: 40 mg Ranitidine HCl (Zantac -) 150 mg PO DAILY [facility] Last Admin: 07/30/17 12:10 Dose: 150 mg Senna (Senna -) 1 tab PO DAILY [facility] Last Admin: 07/30/17 12:09 Dose: 1 tab Warfarin Sodium (Coumadin -) 5 mg PO DAILY@1800 [facility] Last Admin: 07/28/17 18:45 Dose: 5 mg - Objective Vital Signs: Vital Signs Temperature 97.9 F 07/30/17 07:56 Pulse Rate 115 H 07/30/17 12:09 Respiratory Rate 20 07/30/17 08:00 Blood Pressure 103/66 07/30/17 07:56 O2 Sat by Pulse Oximetry (%) 96 07/30/17 08:00 Vital Signs Period Temp Pulse Resp BP Sys/Urrutia Pulse Ox Last 24 Hr 97.9 F-98.9 F 77-115 18-20 103-119/53-73 96-100 Intake & Output 07/29/17 07/30/17 07/30/17 23:59 07:59 15:59 Intake Total 240 Balance 240 Intake: Oral 240 Other: Voiding Method Diaper Diaper # Unmeasured Voids Void 3 2 2 Constitutional: Yes: No Distress, Calm, Obese Cardiovascular: Yes: Tachycardia, Pulse Irregular Gastrointestinal: Yes: Soft, Abdomen, Obese, Tenderness (mild LUQ laterally, more related to abdominal wall) Breast(s): Yes: Skin Changes (mild erythema/bruising along left lateral/ inferior breast) Extremities: Yes: Other (patchy bruising on left anterior upper arm, not tender) . No: Cool Integumentary: Yes: Bruising (over left flank/hip, lower lateral abdominal wall with tenderness and swelling over lateral left side/flank), Other (border foam dressing over left hip skin abrasion) Neurological: Yes: Alert, Oriented, Facial Droop (left, stable) Labs: CBC, BMP 07/30/17 09:36 07/30/17 09:36 INR, PTT INR 4.19 (0.82-1.09) H* 07/30/17 09:36 H/H and platelets low but relatively stable INR still >4 BUN elevation may be related to hemolysis in hematoma leukocytosis decreasing (pt on steroids) - ....Imaging Chest X-ray: Report Reviewed Cat Scan: Report Reviewed Problem List - Problems (1) Traumatic hematoma of multiple sites Assessment/Plan: s/p fall from standing in room 07/[address] showed no intraperitoneal injury but large intramuscular hematoma and soft tissue injury/swelling over left side no apparent active bleeding lactate noted at 3.5 - may reflect hypovolemia given acute blood loss into hematoma consider IVF rehydration vs blood transfusion if indicated labs stabilized but INR still high ASA, coumadin on hold per cardiology, anticoagulation is primarily for afib - ok to let INR decrease toward normal and may have few days' window there before need to resume coumadin (not needed for bioprosthetic mitral valve) consider hematology consult continue to trend labs at risk for further bleeding, especially if any further injury cardiology and pulmonary on board warm compresses to areas may help with comfort and resolution, but reabsorption will be slow 15-20mins at a time, not directly on skin pain control prn, avoid NSAIDs fall precautions and assist as needed to prevent further injury ok to be OOB, walking and moving around as able - position changes still important encourage IS and pulmonary toilet with expectoration of sputum No acute general surgical issues, no surgical intervention indicated. Pt back on diet Hold metformin at least [address] with IV contrast Thank you for the opportunity to participate in the care of this patient. Code(s): T07.XXXA - UNSPECIFIED MULTIPLE INJURIES, INITIAL ENCOUNTER (2) Traumatic hematoma of flank Code(s): S30.1XXA - CONTUSION OF ABDOMINAL WALL, INITIAL ENCOUNTER Qualifiers : Encounter type: initial encounter Qualified Code(s): S30.1XXA - Contusion of abdominal wall, initial encounter; S30.1XXA - Contusion of abdominal wall, initial encounter (3) Intramuscular hematoma Code(s): T14.8XXA - OTHER INJURY OF UNSPECIFIED BODY REGION, INITIAL ENCOUNTER (4) Traumatic hematoma of left thoracic region Code(s): S20.20XA - CONTUSION OF THORAX, UNSPECIFIED, INITIAL ENCOUNTER Qualifiers: Encounter type: initial encounter Qualified Code(s): S20.20XA - Contusion of thorax, unspecified, initial encounter; S20.20XA - Contusion of thorax, unspecified, initial encounter (5) Supratherapeutic INR Assessment/Plan: holding coumadin Code(s): R79.1 - ABNORMAL COAGULATION PROFILE (6) Anemia due to acute blood loss Code(s): D62 - ACUTE POSTHEMORRHAGIC ANEMIA (7) Thrombocytopenia due to blood loss Code(s): D69.59 - OTHER SECONDARY THROMBOCYTOPENIA (8) S/P MVR (mitral valve replacement) Code(s): Z95.2 - PRESENCE OF PROSTHETIC HEART VALVE (9) Atrial fibrillation with rapid ventricular response Code(s): I48.91 - UNSPECIFIED ATRIAL FIBRILLATION (10) Acute on chronic diastolic (congestive) heart failure Code(s): I50.33 - ACUTE ON CHRONIC DIASTOLIC (CONGESTIVE) HEART FAILURE (11) Hypertension associated with diabetes Code(s): E11.59 - TYPE 2 DIABETES MELLITUS WITH OTH CIRCULATORY COMPLICATIONS I10 - ESSENTIAL (PRIMARY) HYPERTENSION (12) COPD (chronic obstructive pulmonary disease) with chronic bronchitis Code(s): J44.9 - CHRONIC OBSTRUCTIVE PULMONARY DISEASE, UNSPECIFIED (13) DVT (deep venous thrombosis) Code(s): I82.409 - ACUTE EMBOLISM AND THOMBOS UNSP DEEP VN UNSP LOWER EXTREMITY Qualifiers: DVT location: non-extremity vein Chronicity: unspecified Qualified Code(s): I82.90 - Acute embolism and thrombosis of unspecified vein; I82.90 - Acute embolism and thrombosis of unspecified vein (14) Hyperthyroidism Code(s): E05.90 - THYROTOXICOSIS, UNSP WITHOUT THYROTOXIC CRISIS OR STORM
--- NOTE | 2017-07-30 15:16 | PN ---
Teaching Attending Note Name of Resident: Cruz Dinh ATTENDING PHYSICIAN STATEMENT I saw and evaluated the patient. I reviewed the resident's note and discussed the case with the resident. I agree with the resident's findings and plan as documented. SUBJECTIVE: feels well, quite alert, no SOB, no cough resting comfortably in bed OBJECTIVE: Vital Signs Period Temp Pulse Resp BP Sys/Urrutia Pulse Ox Last 24 Hr 97.9 F-98.9 F 77-115 18-20 100-119/53-73 96-100 cor-rrr lungs crackles right base abd soft,nt ext no edema extensive right flank ecchymoses no phlebitis CBC, BMP 07/30/17 09:36 07/30/17 09:36 Microbiology 07/12/17 06:00 Blood - Peripheral Venous Blood Culture - Final NO GROWTH AFTER 5 DAYS INCUBATION 07/12/17 06:00 Blood - Peripheral Venous Blood Culture - Final NO GROWTH AFTER 5 DAYS INCUBATION 07/13/17 16:45 Urine - Urine Clean Catch Urine Culture - Final Proteus Mirabilis 07/12/17 06:20 Nasopharyngeal Swab Influenza Types A,B Antigen (GILBERT) - Final 07/12/17 06:20 Nasopharyngeal Swab - Final ASSESSMENT AND PLAN: leukocytosis- multifactorial- suspect steroids and GI bleed wbc is trending down, clinically not c/w sepsis would obtain blood cultures (surveillance) recent bioprosthetic MVR encourage incentive spirometry- extensive atelectasis on cxray Problem List - Problems (1) Acute exacerbation of CHF (congestive heart failure) Code(s): I50.9 - HEART FAILURE, UNSPECIFIED Qualifiers: Congestive heart failure type: diastolic Qualified Code(s): I50.33 - Acute on chronic diastolic (congestive) heart failure; I50.33 - Acute on chronic diastolic (congestive) heart failure; I50.33 - Acute on chronic diastolic (congestive) heart failure; I50.33 - Acute on chronic diastolic ( congestive) heart failure (2) COPD exacerbation Code(s): J44.1 - CHRONIC OBSTRUCTIVE PULMONARY DISEASE W (ACUTE) EXACERBATION (3) S/P MVR (mitral valve replacement) Code(s): Z95.2 - PRESENCE OF PROSTHETIC HEART VALVE
[2017-07-30 17:19] LABS: MCH 30.8 pg (25.7-33.7); MCHC 32.6 g/dl (32.0-36.0); MEAN CELL VOLUME 94.6 fl (80-96); MEAN PLT VOLUME 9.9 fl (7.5-11.1); PLATELET COUNT 83 K/MM3 (134-434); RDW 18.1 % (11.6-15.6)
[2017-07-30] MEDS ORDERED: PT OWN MED DRAWER 7, Y5N ONE ×2 (17:44→22:12)
--- NOTE | 2017-07-30 19:26 | PN ---
Progress Note (short form) - Note Progress Note: Pt seen and examined. all the events noted, all consult notes reviewed. labs and imaging reviewed. Patient is resting comfortably in the bed watching TV. She does endorse mild discomfort in the abdomen. O/E: HEENT: NCAT lungs: CTA b/l abdomen: +Tenderness in the left side BS+ Extremities: No CCE Neuro: AAOx3. Skin: Mild echymosses noted on the left upper extremity. Temp Pulse Resp BP Pulse Ox 98.4 F 110 H 20 100/70 96 07/30/17 14:00 07/30/17 14:00 07/30/17 08:00 07/30/17 14:00 07/30/17 08:00 Current Medications Generic Name Dose Route Start Last Admin Trade Name Freq PRN Reason Stop Dose Admin Acetaminophen 650 mg 07/14/17 04:07 07/29/17 22:24 Tylenol - PO 650 mg Q6H PRN Administration PAIN Acetylcysteine 200 mg 07/16/17 18:00 07/30/17 18:13 Mucomyst 20 Oral / Inh Use Only* NEB 200 mg QIDR BLESSING Administration Albuterol Sulfate 1 amp 07/27/17 17:18 07/30/17 11:30 Ventolin 0.083% Nebulizer Soln - NEB 1 amp Q6H PRN Administration SHORT OF BREATH/WHEEZING Aspirin 81 mg 07/12/17 10:00 07/28/17 10:50 Asa - PO 81 mg DAILY BLESSING Administration Budesonide 1 amp 07/12/17 11:00 07/30/17 10:10 Pulmicort 0.25 Mg Nebulizer - NEB Not Given BID BLESSING Calcium Carbonate 650 mg 07/13/17 14:15 07/30/17 12:08 Calcium Carbonate - PO 650 mg DAILY BLESSING Administration Digoxin 0.125 mg 07/24/17 10:00 07/30/17 12:09 Lanoxin - PO 0.125 mg DAILY BLESSING Administration Diltiazem HCl 360 mg 07/20/17 10:00 07/30/17 12:09 Cardizem Cd - PO 360 mg DAILY BLESSING Administration Furosemide 40 mg 07/14/17 10:00 07/30/17 12:10 Lasix - PO 40 mg DAILY BLESSING Administration Guaifenesin 5 ml 07/13/17 09:54 07/28/17 21:41 Diabetic Tussin Dm - PO 5 ml Q4H PRN Administration COUGH Insulin Aspart 1 vial 07/14/17 07:00 07/30/17 17:45 Novolog Vial Sliding Scale - SQ Not Given [facility] Protocol Insulin Detemir 10 units 07/17/17 07:00 07/30/17 06:36 Levemir Vial SQ 10 units AM BLESSING Administration Metformin HCl 500 mg 07/21/17 07:00 07/29/17 06:27 Glucophage - PO Not Given BID@0700,1630 [facility] Montelukast Sodium 10 mg 07/22/17 22:00 07/29/17 22:24 Singulair - PO 10 mg HS BLESSING Administration Nebivolol 2.5 mg 07/24/17 10:00 07/30/17 12:19 Bystolic - PO 2.5 mg DAILY BLESSING Administration Potassium Chloride 20 meq 07/12/17 10:00 07/30/17 12:08 K-Dur - PO 20 meq DAILY BLESSING Administration Prednisone 40 mg 07/28/17 22:00 07/30/17 12:08 Deltasone - PO 40 mg BID BLESSING Administration Ranitidine HCl 150 mg 07/12/17 10:00 07/30/17 12:10 Zantac - PO 150 mg DAILY BLESSING Administration Senna 1 tab 07/12/17 10:00 07/30/17 12:09 Senna - PO 1 tab DAILY BLESSING Administration Warfarin Sodium 5 mg 07/27/17 18:00 07/28/17 18:45 Coumadin - PO 5 mg DAILY@1800 BLESSING Administration CBC, BMP 07/30/17 16:00 07/30/17 09:36 INR, PTT INR 4.19 (0.82-1.09) H* 07/30/17 09:36 Assessment/Plan: Large Intra muscular hematoma. Thrombocytopenia Anemia in the setting of hematoma Leucocytosis supratherapeutic INR LIJ thrombus COPD exacerbation CHF Afib s/p fall no evidence of CTH bleeding Pt thrombocytopenia is in the setting of consumption from hematoma, if <50K, will need to transfuse platelets Acute Anemia : would need PRBC transfusion, spoke to RN, has IV access issues..they would work on it now Presently hemodynamically stable she was on couamdin for afib and left IJ thrombus, holding coumadin asa in the presence of hematoma would give a dose of vit K (0.5mg) as INR >4 ,hoping to bring the INR to therapeutic range, and she has bleeding with drop in crit and hematoma can consider lasix post transfusion if volume problem arises CBC q12h , INR q12h , coags for am labs. LFTS within normal limits, factors would be normal aid for bleeding/clotting. will maintain an active type and screen always will likely repeat doppler neck next week. warm compressors as per Surgery. ?Lung mass : pulm f/u continue monitoring d.w ,appreciate input. 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
[2017-07-30] MEDS ORDERED: PHYTONADIONE 5 MG TABLET PO ONE (19:59)
--- NOTE | 2017-07-30 20:54 | CON.GI ---
Consult Consult Specialty:: GI Referred by:: Dr Perez Reason for Consultation:: LUQ mass - History of Present Illness Chief Complaint: Dyspnea History of Present Illness: 76 F with h/o AF on AC, CHF, s/p recent MVR at [facility], COPD, admitted with dyspnea. Called to evaluate LUQ mass. Of note, Hgb 12.1 on 07/27, 7.1 today. She fell while walking to the bathroom on 07/28. No obvious injury was noted when evalualted at the time. 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 No: Diabetes Mellitus Additional Medical History: LEFT POPLITEAL DVT - Past Surgical History Past Surgical History: Yes: Tubal Ligation (laparoscopic), Valve Replacement ( mechanical mitral 2 wks ago) - Alcohol/Substance Use Hx Alcohol Use: No History of Substance Use: reports: None - Smoking History Smoking history: Never smoked Have you smoked in the past 12 months: No Aproximately how many cigarettes per day: 0 - Social History ADL: Independent History of Recent Travel: No Home Medications - Allergies Allergies/Adverse Reactions: Allergies Allergy/AdvReac Type Severity Reaction Status Date / Time ampicillin [Ampicillin] Allergy Severe Swelling Verified 07/12/17 05:24 codeine [Codeine] Allergy Swelling Verified 07/12/17 05:24 - Home Medications Home Medications: Ambulatory Orders Acetaminophen [Tylenol] 650 mg PO BID 07/12/17 Albuterol 2.5/Ipratropium 0.5 [Duoneb -] 1 neb NEB Q4H 07/12/17 Aspirin [ASA -] 81 mg PO DAILY 07/12/17 Budesonide [Pulmicort Flexhaler] 90 mcg IH BID 07/12/17 Famotidine [Pepcid] 20 mg PO DAILY 07/12/17 Furosemide [Lasix] 40 mg PO DAILY 07/12/17 Potassium Chloride 20 meq PO DAILY 07/12/17 Sennosides [Senna] 17.2 mg PO DAILY 07/12/17 Diltiazem HCl [Diltiazem 24Hr Cd] 180 mg PO DAILY #30 tab MDD 1 07/18/17 Furosemide [Lasix -] 40 mg PO DAILY tablet 07/18/17 Insulin (Levemir) [Levemir Vial] 10 units SQ AM ml 07/18/17 Potassium Chloride [K-Dur -] 20 meq PO DAILY #14 tab MDD 1 07/18/17 Warfarin Na [Coumadin -] 6 mg PO SuTuThSa@1800 #30 tablet MDD 1 07/18/17 Warfarin Sodium [Coumadin] 4 mg PO ASDIR #20 tab MDD 1 07/18/17 Prednisone [Deltasone -] 10 mg PO ASDIR #100 tab 07/24/17 Family Disease History - Family Disease History Family Disease History: Diabetes: Father (HTN) Physical Exam-GI Vital Signs: Vital Signs Temperature 97.7 F 07/30/17 18:00 Pulse Rate 81 07/30/17 18:00 Respiratory Rate 20 07/30/17 18:00 Blood Pressure 125/62 07/30/17 18:00 O2 Sat by Pulse Oximetry (%) 96 07/30/17 08:00 Constitutional: Yes: Obese HENT: Yes: Normocephalic Neck: Yes: Supple Cardiovascular: Yes: Pulse Irregular Respiratory: Yes: CTA Bilaterally Gastrointestinal Inspection: Yes: WNL ...Auscultate: Yes: Normoactive Bowel Sounds ...Palpate: Yes: Soft, Tenderness (LUQ) Labs: CBC, BMP 07/30/17 16:00 07/30/17 09:36 INR, PTT INR 4.19 (0.82-1.09) H* 07/30/17 09:36 Hepatic Panel Total Bilirubin 0.5 mg/dL (0.2-1.0) 07/30/17 09:36 AST 12 U/L (15-37) L D 07/30/17 09:36 ALT 15 U/L (12-78) 07/30/17 09:36 Alkaline Phosphatase 60 U/L (45-117) 07/30/17 09:36 Albumin 2.3 g/dl (3.4-5.0) L 07/30/17 09:36 Imaging - Results Cat Scan: Report Reviewed (Large intramuscular hematoma on the L) Assessment/Plan Patient on AC sustained fall and likely developed post-traumatic hematoma on the L, which is the mass referred to earlier. No other pathology noted on CT to account for this. Agree with management outliined in Dr Ellington's note. Conservative mgmt at this time. Coumadin and ASA on hold. Please call if I can be of further assistance
[2017-07-30] MEDS ORDERED: PHYTONADIONE NEONATAL 1 MG/0.5 ML AMP IVPB ONE (21:00)
[2017-07-30] MEDS: MONTELUKAST NA 10 MG TABLET PO SCH (22:42)
[2017-07-31] MEDS: ALBUTEROL SO4 0.083% IH SOL 2.5 MG/3 ML VIAL.NEB. NEB PRN ×5 (00:48→23:34)
[2017-07-31] MEDS: ACETYLCYSTEINE 20% 200MG/ML 4 ML VIAL *FOR ORAL / INH USE ONLY NEB SCH ×5 (00:48→23:34)
[2017-07-31] MEDS: INSULIN SLIDING SCALE (NOVOLOG) 1 VIAL SQ SCH ×4 (06:10→22:25)
[2017-07-31] MEDS: INSULIN DETEMIR 100 UNITS/ML MDV SQ SCH (07:22)
[2017-07-31 07:59] LABS: MCH 30.9 pg (25.7-33.7); MEAN CELL VOLUME 93.8 fl (80-96); MEAN PLT VOLUME 8.9 fl (7.5-11.1); PLATELET COUNT 65 K/MM3 (134-434); RDW 17.7 % (11.6-15.6); WHITE BLOOD COUNT 18.9 K/mm3 (4.0-10.0)
[2017-07-31 08:13] LABS: INR 2.24 (0.82-1.09); PROTHROMBIN TIME (PATIENT) 25.3 SEC (9.98-11.88)
[2017-07-31 08:16] LABS: ACTIVATED PTT 26.7 SECONDS (26.9-34.4)
[2017-07-31 08:21] LABS: ALBUMIN 2.3 g/dl (3.4-5.0); ANION GAP 7 (8-16); CALCIUM 7.3 mg/dL (8.5-10.1); CO2 30 mmol/L (21-32); GLUCOSE,RANDOM 161 mg/dL (74-106); SGOT/AST 12 U/L (15-37)
[2017-07-31 08:23] LABS: ALK PHOS 55 U/L (45-117); BILIRUBIN,TOTAL 1.1 mg/dL (0.2-1.0); CREATININE 0.7 mg/dL (0.55-1.02); LDH 388 U/L (84-246); SGPT/ALT 14 U/L (12-78); TOT PROT 4.4 g/dl (6.4-8.2)
[2017-07-31 08:47] LABS: PLATELET ESTIMATE DECREASED (NORMAL)
[2017-07-31 08:48] LABS: ANISOCYTOSIS 1+; MACROCYTOSIS 1+; MICROCYTOSIS FEW; MYELOCYTE 1 % (0-2); POLYCHROMASIA 1+; TOTAL CELLS COUNTED 100
--- NOTE | 2017-07-31 08:50 | PN ---
Progress Note, Physician Chief Complaint: D/w Heme. Given small dose of VitK to bring INR down a bit TELE: AF with average rate < 100bpm - Current Medication List Current Medications: Active Medications Acetaminophen (Tylenol -) 650 mg PO Q6H PRN PRN Reason: PAIN Last Admin: 07/29/17 22:24 Dose: 650 mg Acetylcysteine (Mucomyst 20 Oral / Inh Use Only*) 200 mg NEB QIDR [facility] Last Admin: 07/31/17 07:10 Dose: 200 mg Albuterol Sulfate (Ventolin 0.083% Nebulizer Soln -) 1 amp NEB Q6H PRN PRN Reason: SHORT OF BREATH/WHEEZING Last Admin: 07/31/17 07:10 Dose: 1 amp Aspirin (Asa -) 81 mg PO DAILY [facility] Last Admin: 07/28/17 10:50 Dose: 81 mg Budesonide (Pulmicort 0.25 Mg Nebulizer -) 1 amp NEB BID [facility] Last Admin: 07/30/17 22:23 Dose: 1 amp Calcium Carbonate (Calcium Carbonate -) 650 mg PO DAILY [facility] Last Admin: 07/30/17 12:08 Dose: 650 mg Digoxin (Lanoxin -) 0.125 mg PO DAILY [facility] Last Admin: 07/30/17 12:09 Dose: 0.125 mg Diltiazem HCl (Cardizem Cd -) 360 mg PO DAILY [facility] Last Admin: 07/30/17 12:09 Dose: 360 mg Furosemide (Lasix -) 40 mg PO DAILY [facility] Last Admin: 07/30/17 12:10 Dose: 40 mg Guaifenesin (Diabetic Tussin Dm -) 5 ml PO Q4H PRN PRN Reason: COUGH Last Admin: 07/28/17 21:41 Dose: 5 ml Insulin Aspart (Novolog Vial Sliding Scale -) 1 vial SQ ACHS [facility] PRN Reason: Protocol Last Admin: 07/31/17 06:10 Dose: Not Given Insulin Detemir (Levemir Vial) 10 units SQ AM [facility] Last Admin: 07/31/17 07:22 Dose: 10 units Metformin HCl (Glucophage -) 500 mg PO BID@0700,1630 [facility] Last Admin: 07/29/17 06:27 Dose: Not Given Montelukast Sodium (Singulair -) 10 mg PO HS [facility] Last Admin: 10/18/17 22:42 Dose: 10 mg Nebivolol (Bystolic -) 2.5 mg PO DAILY [facility] Last Admin: 07/30/17 12:19 Dose: 2.5 mg Potassium Chloride (K-Dur -) 20 meq PO DAILY [facility] Last Admin: 07/30/17 12:08 Dose: 20 meq Prednisone (Deltasone -) 40 mg PO BID [facility] Last Admin: 07/30/17 22:42 Dose: 40 mg Ranitidine HCl (Zantac -) 150 mg PO DAILY [facility] Last Admin: 07/30/17 12:10 Dose: 150 mg Senna (Senna -) 1 tab PO DAILY [facility] Last Admin: 07/30/17 12:09 Dose: 1 tab Warfarin Sodium (Coumadin -) 5 mg PO DAILY@1800 [facility] Last Admin: 07/28/17 18:45 Dose: 5 mg - Objective Vital Signs: Vital Signs Temperature 98.8 F 07/31/17 08:39 Pulse Rate 97 H 07/31/17 08:39 Respiratory Rate 20 07/31/17 08:46 Blood Pressure 107/55 07/31/17 08:39 O2 Sat by Pulse Oximetry (%) 97 07/30/17 21:00 Constitutional: Yes: Calm Cardiovascular: Yes: Pulse Irregular Respiratory: Yes: Other (scattered rhocnhi) Gastrointestinal: Yes: Soft Edema: No Neurological: Yes: Alert Labs: CBC, BMP 07/31/17 05:25 07/31/17 05:25 INR, PTT INR 2.24 (0.82-1.09) H D 07/31/17 05:25 Fibrinogen 252.0 mg/dL (238-498) D 07/31/17 05:25 Assessment/Plan Assessment/Plan AE COPD Acute on chronic diastolic CHF, mild S/P Bioprosthetic MVR, 2 weeks ago Permanent AF Chronic COPD with exacerbation L IJ thrombus Fall yesterday, ? RP bleed Thrombocytopenia Abdominal wall hematoma REC: 1. Agree w/ holding ASA and coumadin. INR has drifted down a bit, still above 2 2. Thrombocytopenia liekly due to consumption 3. Continue tele: average AF rate is controlled.
--- NOTE | 2017-07-31 09:23 | PN ---
Progress Note, Physician History of Present Illness: c/o sob c/o weakness no cp no msiley - Current Medication List Current Medications: Active Medications Acetaminophen (Tylenol -) 650 mg PO Q6H PRN PRN Reason: PAIN Last Admin: 07/29/17 22:24 Dose: 650 mg Acetylcysteine (Mucomyst 20 Oral / Inh Use Only*) 200 mg NEB QIDR [facility] Last Admin: 07/31/17 07:10 Dose: 200 mg Albuterol Sulfate (Ventolin 0.083% Nebulizer Soln -) 1 amp NEB Q6H PRN PRN Reason: SHORT OF BREATH/WHEEZING Last Admin: 07/31/17 07:10 Dose: 1 amp Aspirin (Asa -) 81 mg PO DAILY [facility] Last Admin: 07/28/17 10:50 Dose: 81 mg Budesonide (Pulmicort 0.25 Mg Nebulizer -) 1 amp NEB BID [facility] Last Admin: 07/30/17 22:23 Dose: 1 amp Calcium Carbonate (Calcium Carbonate -) 650 mg PO DAILY [facility] Last Admin: 07/30/17 12:08 Dose: 650 mg Digoxin (Lanoxin -) 0.125 mg PO DAILY [facility] Last Admin: 07/30/17 12:09 Dose: 0.125 mg Diltiazem HCl (Cardizem Cd -) 360 mg PO DAILY [facility] Last Admin: 07/30/17 12:09 Dose: 360 mg Furosemide (Lasix -) 40 mg PO DAILY [facility] Last Admin: 07/30/17 12:10 Dose: 40 mg Guaifenesin (Diabetic Tussin Dm -) 5 ml PO Q4H PRN PRN Reason: COUGH Last Admin: 07/28/17 21:41 Dose: 5 ml Insulin Aspart (Novolog Vial Sliding Scale -) 1 vial SQ ACHS [facility] PRN Reason: Protocol Last Admin: 07/31/17 06:10 Dose: Not Given Insulin Detemir (Levemir Vial) 10 units SQ AM [facility] Last Admin: 07/31/17 07:22 Dose: 10 units Metformin HCl (Glucophage -) 500 mg PO BID@0700,1630 [facility] Last Admin: 07/29/17 06:27 Dose: Not Given Montelukast Sodium (Singulair -) 10 mg PO HS [facility] Last Admin: 07/30/17 22:42 Dose: 10 mg Nebivolol (Bystolic -) 2.5 mg PO DAILY [facility] Last Admin: 07/30/17 12:19 Dose: 2.5 mg Potassium Chloride (K-Dur -) 20 meq PO DAILY [facility] Last Admin: 07/30/17 12:08 Dose: 20 meq Prednisone (Deltasone -) 40 mg PO BID [facility] Last Admin: 07/30/17 22:42 Dose: 40 mg Ranitidine HCl (Zantac -) 150 mg PO DAILY [facility] Last Admin: 07/30/17 12:10 Dose: 150 mg Senna (Senna -) 1 tab PO DAILY [facility] Last Admin: 07/30/17 12:09 Dose: 1 tab Warfarin Sodium (Coumadin -) 5 mg PO DAILY@1800 [facility] Last Admin: 07/28/17 18:45 Dose: 5 mg - Objective Vital Signs: Vital Signs Temperature 98.8 F 07/31/17 08:39 Pulse Rate 97 H 07/31/17 08:39 Respiratory Rate 20 07/31/17 08:46 Blood Pressure 107/55 07/31/17 08:39 O2 Sat by Pulse Oximetry (%) 97 07/30/17 21:00 Cardiovascular: Yes: S1, S2 Respiratory: Yes: Diminished, On Nasal O2, Rhonchi Gastrointestinal: Yes: Normal Bowel Sounds, Soft, Other (left sided hematoma) Labs: CBC, BMP 07/31/17 05:25 07/31/17 05:25 INR, PTT INR 2.24 (0.82-1.09) H D 07/31/17 05:25 Fibrinogen 252.0 mg/dL (238-498) D 07/31/17 05:25 Problem List - Problems (1) Internal jugular vein thrombosis Code(s): I82.C19 - ACUTE EMBOLISM AND THROMBOSIS OF UNSP INTERNAL JUGULAR VEIN (2) Retroperitoneal bleed Code(s): R58 - HEMORRHAGE, NOT ELSEWHERE CLASSIFIED Assessment/Plan - Problems (1) Fall Assessment/Plan: s/p fall ct head negative has left upper abdominal pain / mass r/o hematoma/bleed ultrasound noted--ct scan noted muscle hematoma--d/w surgery--observe--monitor labs Code(s): W19.XXXA - UNSPECIFIED FALL, INITIAL ENCOUNTER (2) Internal jugular vein thrombosis Assessment/Plan: seen by vascular surgeon off AC keep INR 2.5-3.5--on hold now Code(s): I82.C19 - ACUTE EMBOLISM AND THROMBOSIS OF UNSP INTERNAL JUGULAR VEIN (3) S/P MVR (mitral valve replacement) Assessment/Plan: done about 5 weeks ago off AC d/w cardio no need for ac for valve Code(s): Z95.2 - PRESENCE OF PROSTHETIC HEART VALVE (4) CHF (congestive heart failure) Assessment/Plan: on po lasix check cmp today on k dur supplements Code(s): I50.9 - HEART FAILURE, UNSPECIFIED Qualifiers: (5) COPD (chronic obstructive pulmonary disease) with chronic bronchitis Assessment/Plan: prednisone taper 30mg po bid chest CT noted--/mass--pulm follow up--id consult bronchodilator mucomyst Code(s): J44.9 - CHRONIC OBSTRUCTIVE PULMONARY DISEASE, UNSPECIFIED (6) Atrial fibrillation Assessment/Plan: permanent afb cardizem and AC Code(s): I48.91 - UNSPECIFIED ATRIAL FIBRILLATION Qualifiers: Atrial fibrillation type: permanent Qualified Code(s): I48.2 - Chronic atrial fibrillation; I48.2 - Chronic atrial fibrillation; I48.2 - Chronic atrial fibrillation; I48.2 - Chronic atrial fibrillation (7) Hyperglycemia Assessment/Plan: seen by endo metformin and levemir Code(s): R73.9 - HYPERGLYCEMIA, UNSPECIFIED
[2017-07-31] MEDS: POTASSIUM CHLORIDE TABS 20 MEQ TABLET.ER (FP) PO SCH (09:35)
[2017-07-31] MEDS: predniSONE 20 MG TABLET (UD) PO SCH ×2 (09:35→22:25)
[2017-07-31] MEDS: RANITIDINE HCL 150 MG TABLET (FP) PO SCH (09:36)
[2017-07-31] MEDS: FUROSEMIDE 40 MG TABLET (FP) PO SCH (09:36)
[2017-07-31] MEDS: CALCIUM CARBONATE 650 MG TABLET PO SCH (09:36)
[2017-07-31] MEDS: DIGOXIN 0.125 MG TABLET (FP) PO SCH (09:36)
[2017-07-31] MEDS: SENNOSIDES 8.6MG TABLET (FP) PO SCH (09:36)
[2017-07-31] MEDS ORDERED: PT OWN MED DRAWER 7, Y5N ONE ×5 (09:39→22:52)
[2017-07-31] MEDS ORDERED: ASPIRIN COATED 81 MG TABLET.EC ONE (09:40)
[2017-07-31] MEDS ORDERED: ASPIRIN 81 MG CHEWABLE TABLETS ONE (09:40)
[2017-07-31] MEDS: NEBIVOLOL 2.5 MG TABLET (FP) PO SCH (09:41)
[2017-07-31] MEDS: ASPIRIN 81 MG CHEWABLE TABLETS PO SCH (09:41)
[2017-07-31] MEDS: BUDESONIDE 0.25 MG/2ML INH SUSP VIAL NEB SCH ×2 (09:45→21:41)
--- NOTE | 2017-07-31 10:24 | PN ---
Progress Note, Physician History of Present Illness: pulmonary alert,feeling better,less dyspneic. - Current Medication List Current Medications: Active Medications Acetaminophen (Tylenol -) 650 mg PO Q6H PRN PRN Reason: PAIN Last Admin: 07/29/17 22:24 Dose: 650 mg Acetylcysteine (Mucomyst 20 Oral / Inh Use Only*) 200 mg NEB QIDR [facility] Last Admin: 07/31/17 07:10 Dose: 200 mg Albuterol Sulfate (Ventolin 0.083% Nebulizer Soln -) 1 amp NEB Q6H PRN PRN Reason: SHORT OF BREATH/WHEEZING Last Admin: 07/31/17 07:10 Dose: 1 amp Aspirin (Asa -) 81 mg PO DAILY [facility] Last Admin: 07/31/17 09:41 Dose: Not Given Budesonide (Pulmicort 0.25 Mg Nebulizer -) 1 amp NEB BID [facility] Last Admin: 07/30/17 22:23 Dose: 1 amp Calcium Carbonate (Calcium Carbonate -) 650 mg PO DAILY [facility] Last Admin: 07/31/17 09:36 Dose: 650 mg Digoxin (Lanoxin -) 0.125 mg PO DAILY [facility] Last Admin: 07/31/17 09:36 Dose: 0.125 mg Diltiazem HCl (Cardizem Cd -) 360 mg PO DAILY [facility] Last Admin: 07/31/17 09:35 Dose: 360 mg Furosemide (Lasix -) 40 mg PO DAILY [facility] Last Admin: 07/31/17 09:36 Dose: 40 mg Guaifenesin (Diabetic Tussin Dm -) 5 ml PO Q4H PRN PRN Reason: COUGH Last Admin: 07/28/17 21:41 Dose: 5 ml Insulin Aspart (Novolog Vial Sliding Scale -) 1 vial SQ ACHS [facility] PRN Reason: Protocol Last Admin: 07/31/17 06:10 Dose: Not Given Insulin Detemir (Levemir Vial) 10 units SQ AM [facility] Last Admin: 07/31/17 07:22 Dose: 10 units Metformin HCl (Glucophage -) 500 mg PO BID@0700,1630 [facility] Last Admin: 07/29/17 06:27 Dose: Not Given Montelukast Sodium (Singulair -) 10 mg PO HS [facility] Last Admin: 07/30/17 22:42 Dose: 10 mg Nebivolol (Bystolic -) 2.5 mg PO DAILY [facility] Last Admin: 07/31/17 09:41 Dose: 2.5 mg Potassium Chloride (K-Dur -) 20 meq PO DAILY [facility] Last Admin: 07/31/17 09:35 Dose: 20 meq Prednisone (Deltasone -) 40 mg PO BID [facility] Last Admin: 07/31/17 09:35 Dose: 40 mg Ranitidine HCl (Zantac -) 150 mg PO DAILY [facility] Last Admin: 07/31/17 09:36 Dose: 150 mg Senna (Senna -) 1 tab PO DAILY [facility] Last Admin: 07/31/17 09:36 Dose: 1 tab Warfarin Sodium (Coumadin -) 5 mg PO DAILY@1800 [facility] Last Admin: 07/28/17 18:45 Dose: 5 mg - Objective Vital Signs: Vital Signs Temperature 98.8 F 07/31/17 08:39 Pulse Rate 97 H 07/31/17 09:36 Respiratory Rate 20 07/31/17 08:46 Blood Pressure 107/55 07/31/17 08:39 O2 Sat by Pulse Oximetry (%) 97 07/30/17 21:00 Constitutional: Yes: Well Nourished, Calm Eyes: Yes: WNL HENT: Yes: WNL Neck: Yes: WNL Cardiovascular: Yes: Pulse Irregular, S1, S2 Respiratory: Yes: Rhonchi (few rhonchi) Gastrointestinal: Yes: Normal Bowel Sounds, Soft, Other (left sided hematoma) Extremities: Yes: WNL Edema: No Labs: CBC, BMP 07/31/17 05:25 07/31/17 05:25 INR, PTT INR 2.24 (0.82-1.09) H D 07/31/17 05:25 Fibrinogen 252.0 mg/dL (238-498) D 07/31/17 05:25 Laboratory Tests 07/30/17 09:50 ABG pH 7.52 H ABG pCO2 at Pt Temp 33.2 L ABG pO2 at Pt Temp 107.0 H ABG HCO3 26.9 H ABG O2 Sat (Measured) 99.4 H O2 Delivery Device 2l Assessment/Plan IMP COPD /ASTHMA EXACERBATION CHF MVR RECENT/NL CORONARIES PERMANENT AF H/O VTE HTN/PULMONARY HTN LLL OPACITY LIKELY PARTIAL ATELECTASIS LLL LEFT IJ PHLEBITIS ANEMIA THROMBOCYTOPENIA HEMATOMA O2 BRONCHODILATORS A/C PER INR DIURETICS PREDNISONE 40 BID BRONCHODILATORS CHEST PT MUCOMYST F/U CHEST CT OUTPATIENT IF NO CHANGE LLL CONSOLIDATION CONSIDER BRONCHOSCOPY PULMONARY REHAB POST DISCHARGE MONITOR H+H,PLTS NORMAL TRANSFUSION THRESHOLD DR YE Problem List - Problems (1) COPD (chronic obstructive pulmonary disease) with chronic bronchitis Code(s): J44.9 - CHRONIC OBSTRUCTIVE PULMONARY DISEASE, UNSPECIFIED (2) Acute asthma exacerbation Code(s): J45.901 - UNSPECIFIED ASTHMA WITH (ACUTE) EXACERBATION Qualifiers: (3) Anxiety and depression Code(s): F41.9 - ANXIETY DISORDER, UNSPECIFIED F32.9 - MAJOR DEPRESSIVE DISORDER, SINGLE EPISODE, UNSPECIFIED (4) Mitral valve replaced Code(s): Z95.2 - PRESENCE OF PROSTHETIC HEART VALVE
--- NOTE | 2017-07-31 14:41 | PN ---
Progress Note (short form) - Note Progress Note: Pt seen and examined. s/p unit of prbc. she feels no pain, she denies CP/SOB O/E: HEENT: NCAT lungs: CTA b/l abdomen: no tenderness noted, felt softer than yesterday Extremities: No CCE Neuro: AAOx3. Skin: Mild echymosses noted on the left upper extremity. Last Vital Signs Temp Pulse Resp BP Pulse Ox 97.7 F 78 20 110/63 97 07/31/17 14:00 07/31/17 14:00 07/31/17 08:46 07/31/17 14:00 07/30/17 21:00 CBC, BMP 07/31/17 05:25 07/31/17 05:25 Current Medications Generic Name Dose Route Start Last Admin Trade Name Freq PRN Reason Stop Dose Admin Acetaminophen 650 mg 07/14/17 04:07 07/29/17 22:24 Tylenol - PO 650 mg Q6H PRN Administration PAIN Acetylcysteine 200 mg 07/16/17 18:00 07/31/17 11:40 Mucomyst 20 Oral / Inh Use Only* NEB 200 mg QIDR [facility] Administration Albuterol Sulfate 1 amp 07/27/17 17:18 07/31/17 11:40 Ventolin 0.083% Nebulizer Soln - NEB 1 amp Q6H PRN Administration SHORT OF BREATH/WHEEZING Aspirin 81 mg 07/12/17 10:00 07/31/17 09:41 Asa - PO Not Given DAILY [facility] Budesonide 1 amp 07/12/17 11:00 07/31/17 09:45 Pulmicort 0.25 Mg Nebulizer - NEB 1 amp BID [facility] Administration Calcium Carbonate 650 mg 07/13/17 14:15 07/31/17 09:36 Calcium Carbonate - PO 650 mg DAILY [facility] Administration Digoxin 0.125 mg 07/24/17 10:00 07/31/17 09:36 Lanoxin - PO 0.125 mg DAILY [facility] Administration Diltiazem HCl 360 mg 07/20/17 10:00 07/31/17 09:35 Cardizem Cd - PO 360 mg DAILY [facility] Administration Furosemide 40 mg 07/14/17 10:00 07/31/17 09:36 Lasix - PO 40 mg DAILY [facility] Administration Guaifenesin 5 ml 07/13/17 09:54 07/28/17 21:41 Diabetic Tussin Dm - PO 5 ml Q4H PRN Administration COUGH Insulin Aspart 1 vial 07/14/17 07:00 07/31/17 11:37 Novolog Vial Sliding Scale - SQ 2 units ACHS [facility] Administration Protocol Insulin Detemir 10 units 07/17/17 07:00 07/31/17 07:22 Levemir Vial SQ 10 units AM [facility] Administration Metformin HCl 500 mg 07/21/17 07:00 07/29/17 06:27 Glucophage - PO Not Given BID@0700,1630 [facility] Montelukast Sodium 10 mg 07/22/17 22:00 07/30/17 22:42 Singulair - PO 10 mg HS [facility] Administration Nebivolol 2.5 mg 07/24/17 10:00 07/31/17 09:41 Bystolic - PO 2.5 mg DAILY [facility] Administration Potassium Chloride 20 meq 07/12/17 10:00 07/31/17 09:35 K-Dur - PO 20 meq DAILY [facility] Administration Prednisone 40 mg 07/28/17 22:00 07/31/17 09:35 Deltasone - PO 40 mg BID [facility] Administration Ranitidine HCl 150 mg 07/12/17 10:00 07/31/17 09:36 Zantac - PO 150 mg DAILY [facility] Administration Senna 1 tab 07/12/17 10:00 07/31/17 09:36 Senna - PO 1 tab DAILY [facility] Administration Warfarin Sodium 5 mg 07/27/17 18:00 07/28/17 18:45 Coumadin - PO 5 mg DAILY@1800 [facility] Administration Assessment/Plan: Large Intra muscular hematoma. Thrombocytopenia Anemia in the setting of hematoma Leucocytosis LIJ thrombus COPD exacerbation CHF Afib s/p fall no evidence of CTH bleeding Pt thrombocytopenia is in the setting of consumption from hematoma, if <50K, will need to transfuse platelets holding coumadin asa in the presence of hematoma INR now therapeutic, will repeat in the am. CBC q12h , INR q12h , coags for am labs. ordered so.. Pulm input noted Hopefully if crit remains stable and no further pain, will need to consider re- start the coumadin slowly at low dose/repeating imaging.
[2017-07-31] MEDS: guaiFENesin/D-M SUGAR-FREE/ACLHOL-FREE 118 ML BOTTLE PO PRN ×2 (16:18→22:28)
[2017-07-31] MEDS: metFORMIN HCL 500 MG TABLET (FP) PO SCH (16:20)
[2017-07-31] MEDS: WARFARIN NA 5 MG TABLET (UD) PO SCH (17:12)
[2017-07-31 19:31] LABS: MCHC 32.8 g/dl (32.0-36.0); MEAN CELL VOLUME 94.4 fl (80-96); PLATELET COUNT 64 K/MM3 (134-434); RDW 17.9 % (11.6-15.6); WHITE BLOOD COUNT 20.6 K/mm3 (4.0-10.0)
[2017-07-31] MEDS: MONTELUKAST NA 10 MG TABLET PO SCH (22:25)
[2017-08-01] MEDS: ACETYLCYSTEINE 20% 200MG/ML 4 ML VIAL *FOR ORAL / INH USE ONLY NEB SCH ×4 (06:26→23:17)
[2017-08-01] MEDS: ALBUTEROL SO4 0.083% IH SOL 2.5 MG/3 ML VIAL.NEB. NEB PRN ×4 (06:27→23:17)
[2017-08-01] MEDS: INSULIN SLIDING SCALE (NOVOLOG) 1 VIAL SQ SCH ×4 (07:02→21:58)
[2017-08-01] MEDS: metFORMIN HCL 500 MG TABLET (FP) PO SCH ×2 (07:02→16:58)
[2017-08-01] MEDS: INSULIN DETEMIR 100 UNITS/ML MDV SQ SCH (07:02)
[2017-08-01 07:17] LABS: MCH 31.2 pg (25.7-33.7); MCHC 33.4 g/dl (32.0-36.0); MEAN CELL VOLUME 93.5 fl (80-96); MEAN PLT VOLUME 8.3 fl (7.5-11.1); PLATELET COUNT 56 K/MM3 (134-434); RDW 17.6 % (11.6-15.6); WHITE BLOOD COUNT 16.6 K/mm3 (4.0-10.0)
[2017-08-01 07:28] LABS: INR 1.81 (0.82-1.09); PROTHROMBIN TIME (PATIENT) 20.4 SEC (9.98-11.88)
[2017-08-01 07:41] LABS: ALBUMIN 2.3 g/dl (3.4-5.0); ANION GAP 10 (8-16); BILIRUBIN,TOTAL 0.9 mg/dL (0.2-1.0); CALCIUM 7.3 mg/dL (8.5-10.1); CO2 28 mmol/L (21-32); CREATININE 0.7 mg/dL (0.55-1.02); GLUCOSE,RANDOM 159 mg/dL (74-106); LDH 380 U/L (84-246); SGOT/AST 10 U/L (15-37); SGPT/ALT 14 U/L (12-78)
[2017-08-01 07:43] LABS: ALK PHOS 48 U/L (45-117); TOT PROT 4.4 g/dl (6.4-8.2)
[2017-08-01] MEDS ORDERED: FUROSEMIDE 40 MG/4 ML INJECTABLE VIAL IVPUSH SCH (08:42)
--- NOTE | 2017-08-01 08:43 | PN ---
Progress Note, Physician History of Present Illness: C/O WEAKNESS NO CP - Current Medication List Current Medications: Active Medications Acetaminophen (Tylenol -) 650 mg PO Q6H PRN PRN Reason: PAIN Last Admin: 07/29/17 22:24 Dose: 650 mg Acetylcysteine (Mucomyst 20 Oral / Inh Use Only*) 200 mg NEB QIDR [facility] Last Admin: 08/01/17 06:26 Dose: 200 mg Albuterol Sulfate (Ventolin 0.083% Nebulizer Soln -) 1 amp NEB Q6H PRN PRN Reason: SHORT OF BREATH/WHEEZING Last Admin: 08/01/17 06:27 Dose: 1 amp Aspirin (Asa -) 81 mg PO DAILY [facility] Last Admin: 07/31/17 09:41 Dose: Not Given Budesonide (Pulmicort 0.25 Mg Nebulizer -) 1 amp NEB BID [facility] Last Admin: 07/31/17 21:41 Dose: 1 amp Calcium Carbonate (Calcium Carbonate -) 650 mg PO DAILY [facility] Last Admin: 07/31/17 09:36 Dose: 650 mg Digoxin (Lanoxin -) 0.125 mg PO DAILY [facility] Last Admin: 07/31/17 09:36 Dose: 0.125 mg Diltiazem HCl (Cardizem Cd -) 360 mg PO DAILY [facility] Last Admin: 07/31/17 09:35 Dose: 360 mg Furosemide (Lasix -) 40 mg PO DAILY [facility] Last Admin: 07/31/17 09:36 Dose: 40 mg Furosemide (Lasix Injection -) 40 mg IVPUSH ONCE ONE Stop: 08/01/17 08:43 Guaifenesin (Diabetic Tussin Dm -) 5 ml PO Q4H PRN PRN Reason: COUGH Last Admin: 07/31/17 22:28 Dose: 5 ml Insulin Aspart (Novolog Vial Sliding Scale -) 1 vial SQ ACHS [facility] PRN Reason: Protocol Last Admin: 08/01/17 07:02 Dose: 2 units Insulin Detemir (Levemir Vial) 10 units SQ AM [facility] Last Admin: 08/01/17 07:02 Dose: 10 units Metformin HCl (Glucophage -) 500 mg PO BID@0700,1630 [facility] Last Admin: 08/01/17 07:02 Dose: 500 mg Montelukast Sodium (Singulair -) 10 mg PO HS [facility] Last Admin: 07/31/17 22:25 Dose: 10 mg Nebivolol (Bystolic -) 2.5 mg PO DAILY [facility] Last Admin: 07/31/17 09:41 Dose: 2.5 mg Potassium Chloride (K-Dur -) 20 meq PO DAILY [facility] Last Admin: 07/31/17 09:35 Dose: 20 meq Prednisone (Deltasone -) 40 mg PO BID [facility] Last Admin: 07/31/17 22:25 Dose: 40 mg Ranitidine HCl (Zantac -) 150 mg PO DAILY [facility] Last Admin: 07/31/17 09:36 Dose: 150 mg Senna (Senna -) 1 tab PO DAILY [facility] Last Admin: 07/31/17 09:36 Dose: 1 tab Warfarin Sodium (Coumadin -) 5 mg PO DAILY@1800 [facility] Last Admin: 07/31/17 17:12 Dose: Not Given - Objective Vital Signs: Vital Signs Temperature 98.2 F 08/01/17 02:00 Pulse Rate 84 08/01/17 06:00 Respiratory Rate 20 08/01/17 06:00 Blood Pressure 152/74 08/01/17 06:00 O2 Sat by Pulse Oximetry (%) 96 07/31/17 21:00 Cardiovascular: Yes: Murmur, S1, S2 Respiratory: Yes: On Nasal O2, Rhonchi Gastrointestinal: Yes: Normal Bowel Sounds, Soft Edema: No Labs: CBC, BMP 08/01/17 06:45 08/01/17 06:45 INR, PTT INR 1.81 (0.82-1.09) H 08/01/17 06:45 Fibrinogen 252.0 mg/dL (238-498) D 07/31/17 05:25 Problem List - Problems (1) Internal jugular vein thrombosis Code(s): I82.C19 - ACUTE EMBOLISM AND THROMBOSIS OF UNSP INTERNAL JUGULAR VEIN (2) Retroperitoneal bleed Code(s): R58 - HEMORRHAGE, NOT ELSEWHERE CLASSIFIED Assessment/Plan - Problems (1) Fall Assessment/Plan: s/p fall ct head negative has left upper abdominal pain / mass CT OF ABD--hematoma ultrasound noted--ct scan noted muscle hematoma--d/w surgery--observe--monitor labs Code(s): W19.XXXA - UNSPECIFIED FALL, INITIAL ENCOUNTER (2) Internal jugular vein thrombosis Assessment/Plan: seen by vascular surgeon off AC keep INR 2.5-3.5--on hold now Code(s): I82.C19 - ACUTE EMBOLISM AND THROMBOSIS OF UNSP INTERNAL JUGULAR VEIN (3) S/P MVR (mitral valve replacement) Assessment/Plan: done about 5 weeks ago off AC d/w cardio no need for ac for valve Code(s): Z95.2 - PRESENCE OF PROSTHETIC HEART VALVE (4) CHF (congestive heart failure) Assessment/Plan: on po lasix monitor labs on k dur supplements Code(s): I50.9 - HEART FAILURE, UNSPECIFIED Qualifiers: (5) COPD (chronic obstructive pulmonary disease) with chronic bronchitis Assessment/Plan: prednisone taper 30mg po bid chest CT noted--/mass--pulm follow up--id consult bronchodilators mucomyst Code(s): J44.9 - CHRONIC OBSTRUCTIVE PULMONARY DISEASE, UNSPECIFIED (6) Atrial fibrillation Assessment/Plan: permanent afb cardizem and AC Code(s): I48.91 - UNSPECIFIED ATRIAL FIBRILLATION Qualifiers: Atrial fibrillation type: permanent Qualified Code(s): I48.2 - Chronic atrial fibrillation; I48.2 - Chronic atrial fibrillation; I48.2 - Chronic atrial fibrillation; I48.2 - Chronic atrial fibrillation (7) Hyperglycemia Assessment/Plan: seen by endo metformin and levemir Code(s): R73.9 - HYPERGLYCEMIA, UNSPECIFIED (8) Anemia Assessment/Plan: Transfuse follow cbc
--- NOTE | 2017-08-01 08:57 | PN ---
Progress Note, Physician Chief Complaint: Heme input noted INR now 1.8, platelets dropping History of Present Illness: TELE: AF w/ average rate < 100bpm, no sig pauses - Current Medication List Current Medications: Active Medications Acetaminophen (Tylenol -) 650 mg PO Q6H PRN PRN Reason: PAIN Last Admin: 07/29/17 22:24 Dose: 650 mg Acetylcysteine (Mucomyst 20 Oral / Inh Use Only*) 200 mg NEB QIDR [facility] Last Admin: 08/01/17 06:26 Dose: 200 mg Albuterol Sulfate (Ventolin 0.083% Nebulizer Soln -) 1 amp NEB Q6H PRN PRN Reason: SHORT OF BREATH/WHEEZING Last Admin: 08/01/17 06:27 Dose: 1 amp Aspirin (Asa -) 81 mg PO DAILY [facility] Last Admin: 07/31/17 09:41 Dose: Not Given Budesonide (Pulmicort 0.25 Mg Nebulizer -) 1 amp NEB BID [facility] Last Admin: 07/31/17 21:41 Dose: 1 amp Calcium Carbonate (Calcium Carbonate -) 650 mg PO DAILY [facility] Last Admin: 07/31/17 09:36 Dose: 650 mg Digoxin (Lanoxin -) 0.125 mg PO DAILY [facility] Last Admin: 07/31/17 09:36 Dose: 0.125 mg Diltiazem HCl (Cardizem Cd -) 360 mg PO DAILY [facility] Last Admin: 07/31/17 09:35 Dose: 360 mg Furosemide (Lasix -) 40 mg PO DAILY [facility] Last Admin: 07/31/17 09:36 Dose: 40 mg Furosemide (Lasix Injection -) 40 mg 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 [facility] Stop: 08/01/17 18:00 Guaifenesin (Diabetic Tussin Dm -) 5 ml PO Q4H PRN PRN Reason: COUGH Last Admin: 07/31/17 22:28 Dose: 5 ml Insulin Aspart (Novolog Vial Sliding Scale -) 1 vial SQ ACHS [facility] PRN Reason: Protocol Last Admin: 08/01/17 07:02 Dose: 2 units Insulin Detemir (Levemir Vial) 10 units SQ AM [facility] Last Admin: 08/01/17 07:02 Dose: 10 units Metformin HCl (Glucophage -) 500 mg PO BID@0700,1630 [facility] Last Admin: 08/01/17 07:02 Dose: 500 mg Montelukast Sodium (Singulair -) 10 mg PO HS [facility] Last Admin: 07/31/17 22:25 Dose: 10 mg Nebivolol (Bystolic -) 2.5 mg PO DAILY [facility] Last Admin: 07/31/17 09:41 Dose: 2.5 mg Potassium Chloride (K-Dur -) 20 meq PO DAILY [facility] Last Admin: 07/31/17 09:35 Dose: 20 meq Prednisone (Deltasone -) 40 mg PO BID [facility] Last Admin: 07/31/17 22:25 Dose: 40 mg Ranitidine HCl (Zantac -) 150 mg PO DAILY [facility] Last Admin: 07/31/17 09:36 Dose: 150 mg Senna (Senna -) 1 tab PO DAILY [facility] Last Admin: 07/31/17 09:36 Dose: 1 tab Warfarin Sodium (Coumadin -) 5 mg PO DAILY@1800 [facility] Last Admin: 07/31/17 17:12 Dose: Not Given - Objective Vital Signs: Vital Signs Temperature 98.5 F 08/01/17 08:48 Pulse Rate 93 H 08/01/17 08:48 Respiratory Rate 20 08/01/17 08:48 Blood Pressure 107/58 08/01/17 08:48 O2 Sat by Pulse Oximetry (%) 96 07/31/17 21:00 Constitutional: Yes: No Distress Cardiovascular: Yes: Pulse Irregular Respiratory: Yes: Other (clear anteriorly, scattered rhonchi posteriorly) Gastrointestinal: Yes: Soft Neurological: Yes: Alert Labs: CBC, BMP 08/01/17 06:45 08/01/17 06:45 INR, PTT INR 1.81 (0.82-1.09) H 08/01/17 06:45 Fibrinogen 252.0 mg/dL (238-498) D 07/31/17 05:25 - ....Imaging EKG: Image Reviewed Assessment/Plan AE COPD Acute on chronic diastolic CHF, mild S/P Bioprosthetic MVR, 2 weeks ago Permanent AF Chronic COPD with exacerbation L IJ thrombus Fall yesterday, ? RP bleed Thrombocytopenia Abdominal wall hematoma REC: Difficult clinical scenario with abdominal wall hematoma, anemia and dropping platelets. Really no choice but to continue to hold ASA and coumadin until platelet count and H/H stabilize and can resume when repeat imaging confirms stability of hematoma.
--- NOTE | 2017-08-01 09:51 | PN ---
Progress Note (short form) - Note Progress Note: Pt seen and examined. she feels no pain, she denies CP/SOB feels a bit "winded" as she has been shifted from bed to the chair. O/E: HEENT: NCAT lungs: CTA b/l abdomen: no tenderness noted, felt softer than yesterday Extremities: No CCE Neuro: AAOx3. Skin: echymosses mild. +swelling Last Vital Signs Temp Pulse Resp BP Pulse Ox 97.7 F 78 20 110/63 97 07/31/17 14:00 07/31/17 14:00 07/31/17 08:46 07/31/17 14:00 07/30/17 21:00 CBC, BMP 07/31/17 05:25 07/31/17 05:25 INR, PTT INR 1.81 (0.82-1.09) H 08/01/17 06:45 Fibrinogen 252.0 mg/dL (238-498) D 07/31/17 05:25 Current Medications Generic Name Dose Route Start Last Admin Trade Name Freq PRN Reason Stop Dose Admin Acetaminophen 650 mg 07/14/17 04:07 07/29/17 22:24 Tylenol - PO 650 mg Q6H PRN Administration PAIN Acetylcysteine 200 mg 07/16/17 18:00 07/31/17 11:40 Mucomyst 20 Oral / Inh Use Only* NEB 200 mg QIDR [facility] Administration Albuterol Sulfate 1 amp 07/27/17 17:18 07/31/17 11:40 Ventolin 0.083% Nebulizer Soln - NEB 1 amp Q6H PRN Administration SHORT OF BREATH/WHEEZING Aspirin 81 mg 07/12/17 10:00 07/31/17 09:41 Asa - PO Not Given DAILY [facility] Budesonide 1 amp 07/12/17 11:00 07/31/17 09:45 Pulmicort 0.25 Mg Nebulizer - NEB 1 amp BID [facility] Administration Calcium Carbonate 650 mg 07/13/17 14:15 07/31/17 09:36 Calcium Carbonate - PO 650 mg DAILY [facility] Administration Digoxin 0.125 mg 07/24/17 10:00 07/31/17 09:36 Lanoxin - PO 0.125 mg DAILY [facility] Administration Diltiazem HCl 360 mg 07/20/17 10:00 07/31/17 09:35 Cardizem Cd - PO 360 mg DAILY [facility] Administration Furosemide 40 mg 07/14/17 10:00 07/31/17 09:36 Lasix - PO 40 mg DAILY [facility] Administration Guaifenesin 5 ml 07/13/17 09:54 07/28/17 21:41 Diabetic Tussin Dm - PO 5 ml Q4H PRN Administration COUGH Insulin Aspart 1 vial 07/14/17 07:00 07/31/17 11:37 Novolog Vial Sliding Scale - SQ 2 units ACHS [facility] Administration Protocol Insulin Detemir 10 units 07/17/17 07:00 07/31/17 07:22 Levemir Vial SQ 10 units AM [facility] Administration Metformin HCl 500 mg 07/21/17 07:00 07/29/17 06:27 Glucophage - PO Not Given BID@0700,1630 [facility] Montelukast Sodium 10 mg 07/22/17 22:00 07/30/17 22:42 Singulair - PO 10 mg HS [facility] Administration Nebivolol 2.5 mg 07/24/17 10:00 07/31/17 09:41 Bystolic - PO 2.5 mg DAILY [facility] Administration Potassium Chloride 20 meq 07/12/17 10:00 07/31/17 09:35 K-Dur - PO 20 meq DAILY [facility] Administration Prednisone 40 mg 07/28/17 22:00 07/31/17 09:35 Deltasone - PO 40 mg BID [facility] Administration Ranitidine HCl 150 mg 07/12/17 10:00 07/31/17 09:36 Zantac - PO 150 mg DAILY [facility] Administration Senna 1 tab 07/12/17 10:00 07/31/17 09:36 Senna - PO 1 tab DAILY [facility] Administration Warfarin Sodium 5 mg 07/27/17 18:00 07/28/17 18:45 Coumadin - PO 5 mg DAILY@1800 [facility] Administration Assessment/Plan: Large Intra muscular hematoma. Thrombocytopenia Anemia in the setting of hematoma Leucocytosis LIJ thrombus COPD exacerbation CHF Afib s/p fall no evidence of CTH bleeding challenging clinical scenario presently with dropping crit and also platelets and her other co-morbidities that makes her high risk for clot/thrombus. Reviewed the chart in detail, the etiology of the low platelet could best be explained by consumption . Would give one sdu platelets due to the down-trend, as the platelets could be well under the influence of aspirin (quality/quantity probelm) may not be as functional will continue to hold asa/coumadin, Cardiology note reviewed PRBC support , with miguel CBC q12h , coags and CBC for am labs discussed with daughter Ms Maza over the phone, Leesa Herman and
[2017-08-01] MEDS: FUROSEMIDE 40 MG TABLET (FP) PO SCH (09:57)
[2017-08-01] MEDS: CALCIUM CARBONATE 650 MG TABLET PO SCH (10:08)
[2017-08-01] MEDS: RANITIDINE HCL 150 MG TABLET (FP) PO SCH (10:08)
[2017-08-01] MEDS: predniSONE 20 MG TABLET (UD) PO SCH ×2 (10:09→21:55)
[2017-08-01] MEDS: POTASSIUM CHLORIDE TABS 20 MEQ TABLET.ER (FP) PO SCH (10:09)
[2017-08-01] MEDS: DIGOXIN 0.125 MG TABLET (FP) PO SCH (10:12)
[2017-08-01] MEDS: SENNOSIDES 8.6MG TABLET (FP) PO SCH (10:12)
[2017-08-01] MEDS ORDERED: PT OWN MED DRAWER 7, Y5N ONE ×2 (10:37→21:43)
[2017-08-01] MEDS: NEBIVOLOL 2.5 MG TABLET (FP) PO SCH (11:11)
[2017-08-01] MEDS: BUDESONIDE 0.25 MG/2ML INH SUSP VIAL NEB SCH ×2 (11:13→22:10)
--- NOTE | 2017-08-01 11:51 | PN ---
Progress Note (short form) - Note Progress Note: Breathing feels ok. No CP or SOB. Some dry cough. No abdominal pain. Intake & Output 07/29/17 07/30/17 07/31/17 08/01/17 23:59 23:59 23:59 23:59 Intake Total 520 670 930 Balance 520 670 930 Weight 196 lb 6 oz 196 lb 12.8 oz Last Vital Signs Temp Pulse Resp BP Pulse Ox 99.2 F 76 20 110/62 97 08/01/17 10:00 08/01/17 10:12 08/01/17 10:00 08/01/17 10:00 08/01/17 10:04 Active Medications Acetaminophen (Tylenol -) 650 mg PO Q6H PRN PRN Reason: PAIN Last Admin: 07/29/17 22:24 Dose: 650 mg Acetylcysteine (Mucomyst 20 Oral / Inh Use Only*) 200 mg NEB QIDR [facility] Last Admin: 08/01/17 11:14 Dose: 200 mg Albuterol Sulfate (Ventolin 0.083% Nebulizer Soln -) 1 amp NEB Q6H PRN PRN Reason: SHORT OF BREATH/WHEEZING Last Admin: 08/01/17 11:14 Dose: 1 amp Aspirin (Asa -) 81 mg PO DAILY [facility] Last Admin: 07/31/17 09:41 Dose: Not Given Budesonide (Pulmicort 0.25 Mg Nebulizer -) 1 amp NEB BID [facility] Last Admin: 08/01/17 11:13 Dose: 1 amp Calcium Carbonate (Calcium Carbonate -) 650 mg PO DAILY [facility] Last Admin: 08/01/17 10:08 Dose: 650 mg Digoxin (Lanoxin -) 0.125 mg PO DAILY [facility] Last Admin: 08/01/17 10:12 Dose: 0.125 mg Diltiazem HCl (Cardizem Cd -) 360 mg PO DAILY [facility] Last Admin: 08/01/17 10:09 Dose: 360 mg Furosemide (Lasix -) 40 mg PO DAILY [facility] Last Admin: 07/31/17 09:36 Dose: 40 mg Furosemide (Lasix Injection -) 40 mg IVPUSH PRESSURE [employer]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 [facility] Stop: 08/01/17 18:00 Guaifenesin (Diabetic Tussin Dm -) 5 ml PO Q4H PRN PRN Reason: COUGH Last Admin: 10/19/17 22:28 Dose: 5 ml Insulin Aspart (Novolog Vial Sliding Scale -) 1 vial SQ ACHS [facility] PRN Reason: Protocol Last Admin: 08/01/17 11:21 Dose: Not Given Insulin Detemir (Levemir Vial) 10 units SQ AM [facility] Last Admin: 08/01/17 07:02 Dose: 10 units Metformin HCl (Glucophage -) 500 mg PO BID@0700,1630 [facility] Last Admin: 08/01/17 07:02 Dose: 500 mg Montelukast Sodium (Singulair -) 10 mg PO HS [facility] Last Admin: 07/31/17 22:25 Dose: 10 mg Nebivolol (Bystolic -) 2.5 mg PO DAILY [facility] Last Admin: 08/01/17 11:11 Dose: 2.5 mg Potassium Chloride (K-Dur -) 20 meq PO DAILY [facility] Last Admin: 08/01/17 10:09 Dose: 20 meq Prednisone (Deltasone -) 40 mg PO BID [facility] Last Admin: 08/01/17 10:09 Dose: 40 mg Ranitidine HCl (Zantac -) 150 mg PO DAILY [facility] Last Admin: 08/01/17 10:08 Dose: 150 mg Senna (Senna -) 1 tab PO DAILY [facility] Last Admin: 08/01/17 10:12 Dose: 1 tab Warfarin Sodium (Coumadin -) 5 mg PO DAILY@1800 [facility] Last Admin: 07/31/17 17:12 Dose: Not Given Constitutional: Yes: NAD Eyes: Yes: WNL HENT: Yes: WNL Neck: Yes: WNL Cardiovascular: Yes: Pulse Irregular, S1, S2 Respiratory: Yes: Few scattered rhonchi, no active wheezing Gastrointestinal: Yes: Normal Bowel Sounds, Soft Extremities: Yes: WNL Edema: Yes Labs: Laboratory Results - last 24 hr 07/31/17 07/31/17 07/31/17 05:25 15:37 18:40 WBC 20.6 H RBC 2.39 L Hgb 7.4 L Hct 22.6 L MCV 94.4 MCH 31.0 MCHC 32.8 RDW 17.9 H Plt Count 64 L MPV 9.0 Retic Count Haptoglobin 142 PT with INR INR Sodium Potassium Chloride Carbon Dioxide Anion Gap BUN Creatinine Creat Clearance w eGFR POC Glucometer 303 Random Glucose Calcium Total Bilirubin AST ALT Alkaline Phosphatase LD Total Total Protein Albumin Blood Type Antibody Screen Crossmatch 07/31/17 08/01/17 08/01/17 22:22 05:46 06:45 WBC 16.6 H RBC 2.33 L Hgb 7.3 L Hct 21.7 L MCV 93.5 MCH 31.2 MCHC 33.4 RDW 17.6 H Plt Count 56 L MPV 8.3 Retic Count Haptoglobin PT with INR INR Sodium Potassium Chloride Carbon Dioxide Anion Gap BUN Creatinine Creat Clearance w eGFR POC Glucometer 286 190 Random Glucose Calcium Total Bilirubin AST ALT Alkaline Phosphatase LD Total Total Protein Albumin Blood Type Antibody Screen Crossmatch 08/01/17 08/01/17 08/01/17 06:45 06:45 06:45 WBC RBC Hgb Hct MCV MCH MCHC RDW Plt Count MPV Retic Count Haptoglobin PT with INR 20.40 H INR 1.81 H Sodium 138 Potassium 4.5 Chloride 100 Carbon Dioxide 28 Anion Gap 10 BUN 29 H Creatinine 0.7 Creat Clearance w eGFR > 60 POC Glucometer Random Glucose 159 H Calcium 7.3 L Total Bilirubin 0.9 AST 10 L ALT 14 Alkaline Phosphatase 48 LD Total 380 H Total Protein 4.4 L Albumin 2.3 L Blood Type A POSITIVE Antibody Screen Negative Crossmatch See Detail 08/01/17 08/01/17 06:45 11:14 WBC RBC Hgb Hct MCV MCH MCHC RDW Plt Count MPV Retic Count 6.11 H D Haptoglobin PT with INR INR Sodium Potassium Chloride Carbon Dioxide Anion Gap BUN Creatinine Creat Clearance w eGFR POC Glucometer 166 Random Glucose Calcium Total Bilirubin AST ALT Alkaline Phosphatase LD Total Total Protein Albumin Blood Type Antibody Screen Crossmatch Problem List - Problems (1) COPD (chronic obstructive pulmonary disease) with chronic bronchitis Code(s): J44.9 - CHRONIC OBSTRUCTIVE PULMONARY DISEASE, UNSPECIFIED (2) Acute asthma exacerbation Code(s): J45.901 - UNSPECIFIED ASTHMA WITH (ACUTE) EXACERBATION Qualifiers: (3) Anxiety and depression Code(s): F41.9 - ANXIETY DISORDER, UNSPECIFIED F32.9 - MAJOR DEPRESSIVE DISORDER, SINGLE EPISODE, UNSPECIFIED (4) Mitral valve replaced Code(s): Z95.2 - PRESENCE OF PROSTHETIC HEART VALVE Assessment/Plan COPD /ASTHMA EXACERBATION CHF MVR RECENT/NL CORONARIES PERMANENT AF H/O VTE HTN/PULMONARY HTN LLL OPACITY LIKELY PARTIAL ATELECTASIS LLL LEFT IJ PHLEBITIS ABDOMINAL WALL HEMATOMA THROMBOCYTOPENIA FOLLOW CBC : HEME EVALUATION NOTED PREDNISONE TAPER O2 NEEDED BRONCHODILATORS DIURETICS BRONCHODILATORS CHEST PT MUCOMYST F/U CHEST CT OUTPATIENT OOB TO CHAIR AND AMBULATE TOLERATED DR [facility]AST
[2017-08-01] MEDS ORDERED: TRIPLE LUMEN FLUSH 4 ML ML IVPUSH PRN (13:14)
[2017-08-01] MEDS ORDERED: PICC LINE 8 ML FLUSH PROTOCOL IVPUSH PRN (14:35)
[2017-08-01] MEDS ORDERED: INSULIN (NOVOLOG) ASPART 100 UNITS/ML 10ML VIAL ONE (16:55)
[2017-08-01] MEDS: FUROSEMIDE 40 MG/4 ML INJECTABLE VIAL IVPUSH SCH (16:59)
[2017-08-01] MEDS ORDERED: ALBUTEROL SO4 0.083% IH SOL 2.5 MG/3 ML VIAL.NEB. NEB ONE (21:47)
[2017-08-01] MEDS: MONTELUKAST NA 10 MG TABLET PO SCH (21:56)
[2017-08-02] MEDS: INSULIN SLIDING SCALE (NOVOLOG) 1 VIAL SQ SCH ×4 (06:31→22:19)
[2017-08-02] MEDS: INSULIN DETEMIR 100 UNITS/ML MDV SQ SCH (06:32)
[2017-08-02] MEDS: metFORMIN HCL 500 MG TABLET (FP) PO SCH ×2 (06:32→17:04)
[2017-08-02] MEDS ORDERED: ALBUTEROL SO4 0.083% IH SOL 2.5 MG/3 ML VIAL.NEB. NEB ONE ×2 (06:37→22:14)
[2017-08-02] MEDS: ACETYLCYSTEINE 20% 200MG/ML 4 ML VIAL *FOR ORAL / INH USE ONLY NEB SCH ×3 (06:40→18:16)
[2017-08-02] MEDS: ALBUTEROL SO4 0.083% IH SOL 2.5 MG/3 ML VIAL.NEB. NEB PRN (06:40)
[2017-08-02 07:41] LABS: MCH 30.4 pg (25.7-33.7); MCHC 32.9 g/dl (32.0-36.0); MEAN CELL VOLUME 92.4 fl (80-96); PLATELET COUNT 67 K/MM3 (134-434); RDW 17.8 % (11.6-15.6); WHITE BLOOD COUNT 20.8 K/mm3 (4.0-10.0)
[2017-08-02 07:54] LABS: INR 1.81 (0.82-1.09); PROTHROMBIN TIME (PATIENT) 20.5 SEC (9.98-11.88)
[2017-08-02 08:43] LABS: ALBUMIN 2.5 g/dl (3.4-5.0); ALK PHOS 55 U/L (45-117); ANION GAP 9 (8-16); BILIRUBIN,TOTAL 1.5 mg/dL (0.2-1.0); CALCIUM 7.2 mg/dL (8.5-10.1); CO2 28 mmol/L (21-32); CREATININE 0.6 mg/dL (0.55-1.02); GLUCOSE,RANDOM 159 mg/dL (74-106); SGOT/AST 14 U/L (15-37); SGPT/ALT 17 U/L (12-78); TOT PROT 4.7 g/dl (6.4-8.2)
[2017-08-02] MEDS ORDERED: PT OWN MED DRAWER 7, Y5N ONE ×2 (09:25→10:29)
[2017-08-02] MEDS: predniSONE 20 MG TABLET (UD) PO SCH ×2 (09:42→22:20)
[2017-08-02] MEDS: RANITIDINE HCL 150 MG TABLET (FP) PO SCH (09:46)
[2017-08-02] MEDS: SENNOSIDES 8.6MG TABLET (FP) PO SCH (09:46)
[2017-08-02] MEDS: DIGOXIN 0.125 MG TABLET (FP) PO SCH (09:46)
[2017-08-02] MEDS: FUROSEMIDE 40 MG TABLET (FP) PO SCH (09:46)
[2017-08-02] MEDS: CALCIUM CARBONATE 650 MG TABLET PO SCH (09:46)
[2017-08-02] MEDS: POTASSIUM CHLORIDE TABS 20 MEQ TABLET.ER (FP) PO SCH (09:47)
[2017-08-02] MEDS: NEBIVOLOL 2.5 MG TABLET (FP) PO SCH (09:48)
--- NOTE | 2017-08-02 10:16 | PN ---
Progress Note, Physician Chief Complaint: Pt is alert; and oriented; denies chest pain (except for sharp pain at sternal site of surgery if she moves torso quickly to the side) History of Present Illness: 07/12/17 06:18 Patient is a 76 year old black female with a significant past medical history of AFib(on coumadin), diastolic CHF, mitral insufficiency; s/p bioprosthetic mitral valve replacement two weeks ago, hypertension, hypothyroidism, asthma, COPD, and osteoarthritis who presents to the ED with complaints of shortness of breath for 7 hours. Patient reports getting discharged from [facility] yesterday for prolonged admission for cardiac evaluation. As per patient's daughter patient has been has experiencing intermittent episodes of wheezing and SOB during her hospitalization. Patients shelbi reports patient continued to wheeze with SOB after returning home. Patients was was admitted to [facility] for congestive heart failure and asthma exacerbation. Denies nausea, vomiting. Denies fever, chills. Denies any other symptoms. Allergies: Ampicillin, Codeine. Social history: No smoking. No alcohol. No illicit Drugs. Surgical history: Tubal Ligation PMD: Dr. Perez - Current Medication List Current Medications: Active Medications Acetaminophen (Tylenol -) 650 mg PO Q6H PRN PRN Reason: PAIN Last Admin: 07/29/17 22:24 Dose: 650 mg Acetylcysteine (Mucomyst 20 Oral / Inh Use Only*) 200 mg NEB QIDR [facility] Last Admin: 08/02/17 06:40 Dose: 200 mg Aspirin (Asa -) 81 mg PO DAILY [facility] Last Admin: 07/31/17 09:41 Dose: Not Given Budesonide (Pulmicort 0.25 Mg Nebulizer -) 1 amp NEB BID [facility] Last Admin: 08/01/17 22:10 Dose: 1 amp Calcium Carbonate (Calcium Carbonate -) 650 mg PO DAILY [facility] Last Admin: 08/02/17 09:46 Dose: 650 mg Digoxin (Lanoxin -) 0.125 mg PO DAILY [facility] Last Admin: 08/02/17 09:46 Dose: 0.125 mg Diltiazem HCl (Cardizem Cd -) 360 mg PO DAILY [facility] Last Admin: 08/02/17 09:46 Dose: 360 mg Furosemide (Lasix -) 40 mg PO DAILY [facility] Last Admin: 08/02/17 09:46 Dose: 40 mg Furosemide (Lasix Injection -) 40 mg IVPUSH [employer]GRAM [employer] [facility] Last Admin: 08/01/17 16:59 Dose: Not Given Guaifenesin (Diabetic Tussin Dm -) 5 ml PO Q4H PRN PRN Reason: COUGH Last Admin: 07/31/17 22:28 Dose: 5 ml IV Flush (Triple Lumen Flush) 4 ml IVPUSH PRN PRN PRN Reason: Protocol IV Flush (Picc Line Flush) 8 ml IVPUSH PRN PRN PRN Reason: Protocol Insulin Aspart (Novolog Vial Sliding Scale -) 1 vial SQ ACHS [facility] PRN Reason: Protocol Last Admin: 08/02/17 06:31 Dose: Not Given Insulin Detemir (Levemir Vial) 10 units SQ AM [facility] Last Admin: 08/02/17 06:32 Dose: 10 units Metformin HCl (Glucophage -) 500 mg PO BID@0700,1630 [facility] Last Admin: 08/02/17 06:32 Dose: 500 mg Montelukast Sodium (Singulair -) 10 mg PO HS [facility] Last Admin: 08/01/17 21:56 Dose: 10 mg Nebivolol (Bystolic -) 2.5 mg PO DAILY [facility] Last Admin: 08/02/17 09:48 Dose: 2.5 mg Potassium Chloride (K-Dur -) 20 meq PO DAILY [facility] Last Admin: 08/02/17 09:47 Dose: 20 meq Prednisone (Deltasone -) 30 mg PO BID [facility] Last Admin: 08/02/17 09:42 Dose: 30 mg Ranitidine HCl (Zantac -) 150 mg PO DAILY [facility] Last Admin: 08/02/17 09:46 Dose: 150 mg Senna (Senna -) 1 tab PO DAILY [facility] Last Admin: 08/02/17 09:46 Dose: Not Given Warfarin Sodium (Coumadin -) 5 mg PO DAILY@1800 [facility] Last Admin: 07/31/17 17:12 Dose: Not Given - Objective Vital Signs: Vital Signs Temperature 97.9 F 08/02/17 07:37 Pulse Rate 94 H 08/02/17 09:46 Respiratory Rate 20 08/02/17 07:42 Blood Pressure 149/83 08/02/17 07:37 O2 Sat by Pulse Oximetry (%) 100 08/02/17 07:42 Constitutional: Yes: Calm Eyes: Yes: WNL HENT: Yes: WNL Neck: Yes: WNL Cardiovascular: Yes: Pulse Irregular Respiratory: Yes: WNL Gastrointestinal: Yes: Soft ...Rectal Exam: Yes: Deferred Genitourinary: No: Anuria Musculoskeletal: Yes: Muscle Weakness Extremities: Yes: External Rotation Edema: No Peripheral Pulses WNL: Yes Integumentary: Yes: Incision (healed sternal surgical site (MVR)) Neurological: Yes: WNL Psychiatric: Yes: WNL Labs: CBC, BMP 08/02/17 06:25 08/02/17 06:25 INR, PTT INR 1.81 (0.82-1.09) H 08/02/17 06:25 Fibrinogen 252.0 mg/dL (238-498) D 07/31/17 05:25 Abnormal Lab Results 08/01/17 08/02/17 08/02/17 06:45 06:25 06:25 WBC 20.8 H RBC 2.95 L D Hgb 9.0 L D Hct 27.3 L D RDW 17.8 H Plt Count 67 L PT with INR 20.50 H INR 1.81 H BUN Random Glucose Calcium Total Bilirubin AST Total Protein Albumin Crossmatch See Detail 08/02/17 06:25 WBC RBC Hgb Hct RDW Plt Count PT with INR INR BUN 24 H Random Glucose 159 H Calcium 7.2 L Total Bilirubin 1.5 H D AST 14 L D Total Protein 4.7 L Albumin 2.5 L Crossmatch Problem List - Problems (1) COPD (chronic obstructive pulmonary disease) with chronic bronchitis Code(s): J44.9 - CHRONIC OBSTRUCTIVE PULMONARY DISEASE, UNSPECIFIED (2) History of mitral valve replacement with bioprosthetic valve Code(s): Z95.3 - PRESENCE OF XENOGENIC HEART VALVE (3) Anemia Assessment/Plan: s/p PRBCs and platelets; continuted leukocytosis, anemia, thrombocytopenia f/u with lactation specialist regarding timing of restart of antiplatelets and anticoagulant. Code(s): D64.9 - ANEMIA, UNSPECIFIED Qualifiers: Anemia type: other cause Other causes of anemia: acute posthemorrhagic Qualified Code(s): D62 - Acute posthemorrhagic anemia; D62 - Acute posthemorrhagic anemia (4) Anxiety and depression Code(s): F41.9 - ANXIETY DISORDER, UNSPECIFIED F32.9 - MAJOR DEPRESSIVE DISORDER, SINGLE EPISODE, UNSPECIFIED (5) Atrial fibrillation Assessment/Plan: telemetry: AF; controlled VR on Bysgtolic and diltiazem for HR control. Resume warfarin when cleared by lactation specialist. Code(s): I48.91 - UNSPECIFIED ATRIAL FIBRILLATION Qualifiers: Atrial fibrillation type: permanent Qualified Code(s): I48.2 - Chronic atrial fibrillation; I48.2 - Chronic atrial fibrillation; I48.2 - Chronic atrial fibrillation; I48.2 - Chronic atrial fibrillation
[2017-08-02] MEDS: BUDESONIDE 0.25 MG/2ML INH SUSP VIAL NEB SCH ×2 (10:54→22:29)
[2017-08-02] MEDS ORDERED: INSULIN (NOVOLOG) ASPART 100 UNITS/ML 10ML VIAL ONE (11:56)
--- NOTE | 2017-08-02 12:48 | PN ---
Progress Note (short form) - Note Progress Note: Seen in follow up. Overall doing better. Pain controlled. Meds reviewed. Current Medications Generic Name Dose Route Start Last Admin Trade Name Freq PRN Reason Stop Dose Admin Acetaminophen 650 mg 07/14/17 04:07 07/29/17 22:24 Tylenol - PO 650 mg Q6H PRN Administration PAIN Acetylcysteine 200 mg 07/16/17 18:00 08/02/17 06:40 Mucomyst 20 Oral / Inh Use Only* NEB 200 mg QIDR [facility] Administration Aspirin 81 mg 07/12/17 10:00 07/31/17 09:41 Asa - PO Not Given DAILY [facility] Budesonide 1 amp 07/12/17 11:00 08/02/17 10:54 Pulmicort 0.25 Mg Nebulizer - NEB 1 amp BID [facility] Administration Calcium Carbonate 650 mg 07/13/17 14:15 08/02/17 09:46 Calcium Carbonate - PO 650 mg DAILY [facility] Administration Digoxin 0.125 mg 07/24/17 10:00 08/02/17 09:46 Lanoxin - PO 0.125 mg DAILY [facility] Administration Diltiazem HCl 360 mg 07/20/17 10:00 08/02/17 09:46 Cardizem Cd - PO 360 mg DAILY [facility] Administration Furosemide 40 mg 07/14/17 10:00 08/02/17 09:46 Lasix - PO 40 mg DAILY [facility] Administration Furosemide 40 mg 08/01/17 16:00 08/01/17 16:59 Lasix Injection - IVPUSH Not Given [employer] [facility] Guaifenesin 5 ml 07/13/17 09:54 07/31/17 22:28 Diabetic Tussin Dm - PO 5 ml Q4H PRN Administration COUGH IV Flush 4 ml 08/01/17 13:14 Triple Lumen Flush IVPUSH PRN PRN Protocol IV Flush 8 ml 08/01/17 14:35 Picc Line Flush IVPUSH PRN PRN Protocol Insulin Aspart 1 vial 07/14/17 07:00 08/02/17 11:59 Novolog Vial Sliding Scale - SQ Not Given ACHS [facility] Protocol Insulin Detemir 10 units 07/17/17 07:00 08/02/17 06:32 Levemir Vial SQ 10 units AM [facility] Administration Metformin HCl 500 mg 07/21/17 07:00 08/02/17 06:32 Glucophage - PO 500 mg BID@0700,1630 [facility] Administration Montelukast Sodium 10 mg 07/22/17 22:00 08/01/17 21:56 Singulair - PO 10 mg HS [facility] Administration Nebivolol 2.5 mg 07/24/17 10:00 08/02/17 09:48 Bystolic - PO 2.5 mg DAILY [facility] Administration Potassium Chloride 20 meq 07/12/17 10:00 08/02/17 09:47 K-Dur - PO 20 meq DAILY [facility] Administration Prednisone 30 mg 08/01/17 11:55 08/02/17 09:42 Deltasone - PO 30 mg BID [facility] Administration Ranitidine HCl 150 mg 07/12/17 10:00 08/02/17 09:46 Zantac - PO 150 mg DAILY [facility] Administration Senna 1 tab 07/12/17 10:00 08/02/17 09:46 Senna - PO Not Given DAILY [facility] Warfarin Sodium 5 mg 07/27/17 18:00 07/31/17 17:12 Coumadin - PO Not Given DAILY@1800 [facility] On exam: Last Vital Signs Temp Pulse Resp BP Pulse Ox 97.9 F 94 H 20 149/83 100 08/02/17 07:37 08/02/17 09:46 08/02/17 07:42 08/02/17 07:37 08/02/17 07:42 General: Comfortable, supine in bed. Extremities: Pallor, no icterus. Chest:normal AE bilaterally, clear.. Abdomen: Soft, obese no palpable masses. Neuro: Alert, oriented, non-focal. Assessment. Recent abdominal wall hematoma, while anti-coagulated, with concomitant thrombocytopenia. Drop in Hb but with appropriate retic response. Hemolysis ruled out. Thrombocytopenia likely consumptive - with sub-appropriate response to recent platelet infusion noted. High risk of thromoembolic events at this time - Hb appear sto be stable at this time - believe it appropriate to re-initiate anticoagulation cautiously - would initiate heparin gtt (target PTT 1.5X upper limit normal) - with close monitoring abdominal wall, and serial CBC.
--- NOTE | 2017-08-02 13:32 | PN ---
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
[2017-08-02] MEDS ORDERED: HEPARIN NA (PORCINE) 5,000 UNITS/ML 1ML VIAL IVPUSH PRN ×3 (14:04→16:41)
[2017-08-02] MEDS ORDERED: HEPARIN INFUSION - 500 ML IVPB SCH (15:00)
[2017-08-02] MEDS: FUROSEMIDE 40 MG/4 ML INJECTABLE VIAL IVPUSH SCH (16:44)
[2017-08-02] MEDS: HEPARIN - 25,000 UNIT in SODIUM CHLORIDE 495 ML IV SCH (17:02)
--- NOTE | 2017-08-02 20:57 | PN ---
Progress Note, Physician Chief Complaint: SOB, Mitral valve replacement, IJ thrombosis, hemotoma, thrombocytopenia History of Present Illness: NAD, sleeping in bed INR subtherapeutic seen by Hematology, pulmonary and cardiology received a unit of PRBC yesterday H/H and plt better today - Current Medication List Current Medications: Active Medications Acetaminophen (Tylenol -) 650 mg PO Q6H PRN PRN Reason: PAIN Last Admin: 07/29/17 22:24 Dose: 650 mg Acetylcysteine (Mucomyst 20 Oral / Inh Use Only*) 200 mg NEB QIDR [facility] Last Admin: 08/02/17 06:40 Dose: 200 mg Aspirin (Asa -) 81 mg PO DAILY [facility] Last Admin: 07/31/17 09:41 Dose: Not Given Budesonide (Pulmicort 0.25 Mg Nebulizer -) 1 amp NEB BID [facility] Last Admin: 08/02/17 10:54 Dose: 1 amp Calcium Carbonate (Calcium Carbonate -) 650 mg PO DAILY [facility] Last Admin: 08/02/17 09:46 Dose: 650 mg Digoxin (Lanoxin -) 0.125 mg PO DAILY [facility] Last Admin: 08/02/17 09:46 Dose: 0.125 mg Diltiazem HCl (Cardizem Cd -) 360 mg PO DAILY [facility] Last Admin: 08/02/17 09:46 Dose: 360 mg Furosemide (Lasix -) 40 mg PO DAILY [facility] Last Admin: 08/02/17 09:46 Dose: 40 mg Guaifenesin (Diabetic Tussin Dm -) 5 ml PO Q4H PRN PRN Reason: COUGH Last Admin: 07/31/17 22:28 Dose: 5 ml Heparin Sodium (Porcine) (Heparin -) 1,000 unit IVPUSH PRN PRN PRN Reason: Heparin Heparin Sodium (Porcine) (Heparin -) 5,000 unit IVPUSH PRN PRN PRN Reason: Heparin IV Flush (Triple Lumen Flush) 4 ml IVPUSH PRN PRN PRN Reason: Protocol IV Flush (Picc Line Flush) 8 ml IVPUSH PRN PRN PRN Reason: Protocol Heparin Sodium (Porcine) 25, (000 unit/ Sodium Chloride) 500 mls @ 20 mls/hr IV TITR BLESSING; 1,000 UNIT/HR PRN Reason: Protocol Last Admin: 08/02/17 17:02 Dose: 20 mls/hr Insulin Aspart (Novolog Vial Sliding Scale -) 1 vial SQ ACHS [facility] PRN Reason: Protocol Last Admin: 08/02/17 17:01 Dose: 2 units Insulin Detemir (Levemir Vial) 10 units SQ AM [facility] Last Admin: 08/02/17 06:32 Dose: 10 units Metformin HCl (Glucophage -) 500 mg PO BID@0700,1630 [facility] Last Admin: 08/02/17 17:04 Dose: 500 mg Montelukast Sodium (Singulair -) 10 mg PO HS [facility] Last Admin: 08/01/17 21:56 Dose: 10 mg Nebivolol (Bystolic -) 2.5 mg PO DAILY [facility] Last Admin: 08/02/17 09:48 Dose: 2.5 mg Potassium Chloride (K-Dur -) 20 meq PO DAILY [facility] Last Admin: 08/02/17 09:47 Dose: 20 meq Prednisone (Deltasone -) 30 mg PO BID [facility] Last Admin: 08/02/17 09:42 Dose: 30 mg Ranitidine HCl (Zantac -) 150 mg PO DAILY [facility] Last Admin: 08/02/17 09:46 Dose: 150 mg Senna (Senna -) 1 tab PO DAILY [facility] Last Admin: 08/02/17 09:46 Dose: Not Given Warfarin Sodium (Coumadin -) 5 mg PO DAILY@1800 [facility] Last Admin: 07/31/17 17:12 Dose: Not Given - Objective Vital Signs: Vital Signs Temperature 98.4 F 08/02/17 18:00 Pulse Rate 76 08/02/17 18:00 Respiratory Rate 20 08/02/17 18:00 Blood Pressure 120/68 08/02/17 18:00 O2 Sat by Pulse Oximetry (%) 100 08/02/17 07:42 Constitutional: Yes: Well Nourished, No Distress, Calm Cardiovascular: Yes: Regular Rate and Rhythm Respiratory: Yes: Regular Musculoskeletal: Yes: WNL Extremities: Yes: WNL Neurological: Yes: Alert, Oriented Psychiatric: Yes: Alert, Oriented Labs: CBC, BMP 08/02/17 06:25 08/02/17 06:25 INR, PTT INR 1.81 (0.82-1.09) H 08/02/17 06:25 Fibrinogen 252.0 mg/dL (238-498) D 07/31/17 05:25 Problem List - Problems (1) CHF (congestive heart failure) Assessment/Plan: -on furosemide 40 mg IV daily -seen by cardiology Code(s): I50.9 - HEART FAILURE, UNSPECIFIED (2) COPD (chronic obstructive pulmonary disease) Assessment/Plan: -seen by Pulmonary -PO steroids -neb txs -nasal o2 Code(s): J44.9 - CHRONIC OBSTRUCTIVE PULMONARY DISEASE, UNSPECIFIED (3) S/P MVR (mitral valve replacement) Assessment/Plan: -seen by cardiology -Echo done -Warfarin on hold -need AC for MVR and LIJ thrombus -start heparin drip until stabilized -repeat labs in AM Code(s): Z95.2 - PRESENCE OF PROSTHETIC HEART VALVE (4) Shortness of breath Assessment/Plan: -Improved -nasal o2 -PO steroids -neb tx -seen by Pulmonary -ABG nl Code(s): R06.02 - SHORTNESS OF BREATH (5) Anemia due to acute blood loss Assessment/Plan: -seen by hematology Code(s): D62 - ACUTE POSTHEMORRHAGIC ANEMIA (6) Internal jugular vein thrombosis Assessment/Plan: -on heparin drip now -if started on Warfarin, goal 2.5-3.5 -seen by hematology Code(s): I82.C19 - ACUTE EMBOLISM AND THROMBOSIS OF UNSP INTERNAL JUGULAR VEIN Assessment/Plan see problem list
[2017-08-02] MEDS: MONTELUKAST NA 10 MG TABLET PO SCH (22:20)
[2017-08-03] MEDS: ACETYLCYSTEINE 20% 200MG/ML 4 ML VIAL *FOR ORAL / INH USE ONLY NEB SCH ×5 (00:15→17:17)
[2017-08-03] MEDS: HEPARIN - 25,000 UNIT in SODIUM CHLORIDE 495 ML IV SCH ×2 (00:37→23:26)
[2017-08-03] MEDS: HEPARIN NA (PORCINE) 5,000 UNITS/ML 1ML VIAL IVPUSH PRN ×2 (00:38→23:26)
[2017-08-03] MEDS: INSULIN SLIDING SCALE (NOVOLOG) 1 VIAL SQ SCH ×4 (06:19→22:00)
[2017-08-03] MEDS: metFORMIN HCL 500 MG TABLET (FP) PO SCH ×2 (06:31→17:31)
[2017-08-03] MEDS: INSULIN DETEMIR 100 UNITS/ML MDV SQ SCH (06:31)
[2017-08-03] MEDS: BUDESONIDE 0.25 MG/2ML INH SUSP VIAL NEB SCH ×2 (10:03→22:55)
[2017-08-03 10:07] LABS: MCH 30.8 pg (25.7-33.7); MCHC 33.3 g/dl (32.0-36.0); MEAN CELL VOLUME 92.6 fl (80-96); PLATELET COUNT 58 K/MM3 (134-434); RDW 18.3 % (11.6-15.6); WHITE BLOOD COUNT 15.9 K/mm3 (4.0-10.0)
[2017-08-03 10:22] LABS: INR 1.62 (0.82-1.09); PROTHROMBIN TIME (PATIENT) 18.3 SEC (9.98-11.88)
[2017-08-03] MEDS ORDERED: PT OWN MED DRAWER 7, Y5N ONE (11:10)
[2017-08-03] MEDS: CALCIUM CARBONATE 650 MG TABLET PO SCH (11:11)
[2017-08-03] MEDS: FUROSEMIDE 40 MG TABLET (FP) PO SCH (11:11)
[2017-08-03] MEDS: POTASSIUM CHLORIDE TABS 20 MEQ TABLET.ER (FP) PO SCH (11:11)
[2017-08-03] MEDS: RANITIDINE HCL 150 MG TABLET (FP) PO SCH (11:11)
[2017-08-03] MEDS: DIGOXIN 0.125 MG TABLET (FP) PO SCH (11:11)
[2017-08-03] MEDS: predniSONE 20 MG TABLET (UD) PO SCH ×2 (11:12→21:59)
[2017-08-03] MEDS: NEBIVOLOL 2.5 MG TABLET (FP) PO SCH (11:13)
[2017-08-03] MEDS: SENNOSIDES 8.6MG TABLET (FP) PO SCH (11:19)
--- NOTE | 2017-08-03 13:02 | PN ---
Progress Note, Physician Chief Complaint: Pt is alert; no chest pain or dyspnea presently. History of Present Illness: Patient is a 76 year old black female with a significant past medical history of AFib(on coumadin), diastolic CHF, mitral insufficiency; s/p bioprosthetic mitral valve replacement two weeks ago, hypertension, hypothyroidism, asthma, COPD, and osteoarthritis who presents to the ED with complaints of shortness of breath for 7 hours. Patient reports getting discharged from [facility] yesterday for prolonged admission for cardiac evaluation. As per patient's daughter patient has been has experiencing intermittent episodes of wheezing and SOB during her hospitalization. Patients shelbi reports patient continued to wheeze with SOB after returning home. Patients was was admitted to [facility] for congestive heart failure and asthma exacerbation. Denies nausea, vomiting. Denies fever, chills. Denies any other symptoms. Allergies: Ampicillin, Codeine. Social history: No smoking. No alcohol. No illicit Drugs. Surgical history: Tubal Ligation PMD: Dr. Perez - Current Medication List Current Medications: Active Medications Acetaminophen (Tylenol -) 650 mg PO Q6H PRN PRN Reason: PAIN Last Admin: 07/29/17 22:24 Dose: 650 mg Acetylcysteine (Mucomyst 20 Oral / Inh Use Only*) 200 mg NEB QIDR [facility] Last Admin: 08/03/17 11:44 Dose: Not Given Aspirin (Asa -) 81 mg PO DAILY [facility] Last Admin: 07/31/17 09:41 Dose: Not Given Budesonide (Pulmicort 0.25 Mg Nebulizer -) 1 amp NEB BID [facility] Last Admin: 08/02/17 22:29 Dose: 1 amp Calcium Carbonate (Calcium Carbonate -) 650 mg PO DAILY [facility] Last Admin: 08/03/17 11:11 Dose: 650 mg Digoxin (Lanoxin -) 0.125 mg PO DAILY [facility] Last Admin: 08/03/17 11:11 Dose: 0.125 mg Diltiazem HCl (Cardizem Cd -) 360 mg PO DAILY [facility] Last Admin: 08/03/17 11:13 Dose: 360 mg Furosemide (Lasix -) 40 mg PO DAILY [facility] Last Admin: 08/03/17 11:11 Dose: 40 mg Guaifenesin (Diabetic Tussin Dm -) 5 ml PO Q4H PRN PRN Reason: COUGH Last Admin: 07/31/17 22:28 Dose: 5 ml Heparin Sodium (Porcine) (Heparin -) 1,000 unit IVPUSH PRN PRN PRN Reason: Heparin Heparin Sodium (Porcine) (Heparin -) 5,000 unit IVPUSH PRN PRN PRN Reason: Heparin Last Admin: 08/03/17 00:38 Dose: 5,000 unit IV Flush (Triple Lumen Flush) 4 ml IVPUSH PRN PRN PRN Reason: Protocol IV Flush (Picc Line Flush) 8 ml IVPUSH PRN PRN PRN Reason: Protocol Heparin Sodium (Porcine) 25, (000 unit/ Sodium Chloride) 500 mls @ 20 mls/hr IV TITR BLESSING; 1,000 UNIT/HR PRN Reason: Protocol Last Titration: 08/03/17 12:48 Dose: 1,000 unit/hr Insulin Aspart (Novolog Vial Sliding Scale -) 1 vial SQ ACHS [facility] PRN Reason: Protocol Last Admin: 08/03/17 12:34 Dose: Not Given Insulin Detemir (Levemir Vial) 10 units SQ AM [facility] Last Admin: 08/03/17 06:31 Dose: 10 units Metformin HCl (Glucophage -) 500 mg PO BID@0700,1630 [facility] Last Admin: 08/03/17 06:31 Dose: 500 mg Montelukast Sodium (Singulair -) 10 mg PO HS [facility] Last Admin: 08/02/17 22:20 Dose: 10 mg Nebivolol (Bystolic -) 2.5 mg PO DAILY [facility] Last Admin: 08/03/17 11:13 Dose: 2.5 mg Potassium Chloride (K-Dur -) 20 meq PO DAILY [facility] Last Admin: 08/03/17 11:11 Dose: 20 meq Prednisone (Deltasone -) 30 mg PO BID [facility] Last Admin: 08/03/17 11:12 Dose: 30 mg Ranitidine HCl (Zantac -) 150 mg PO DAILY [facility] Last Admin: 08/03/17 11:11 Dose: 150 mg Senna (Senna -) 1 tab PO DAILY [facility] Last Admin: 08/03/17 11:19 Dose: Not Given Warfarin Sodium (Coumadin -) 5 mg PO DAILY@1800 [facility] Last Admin: 07/31/17 17:12 Dose: Not Given - Objective Vital Signs: Vital Signs Temperature 98.2 F 08/03/17 10:00 Pulse Rate 86 08/03/17 11:11 Respiratory Rate 20 08/03/17 10:00 Blood Pressure 151/85 08/03/17 10:00 O2 Sat by Pulse Oximetry (%) 99 08/03/17 09:00 Constitutional: Yes: Anxious Eyes: Yes: WNL HENT: Yes: WNL Neck: Yes: WNL Cardiovascular: Yes: Pulse Irregular, S1 (varies in intensity), Other (PICC line ) Respiratory: Yes: Regular Gastrointestinal: Yes: Soft ...Rectal Exam: Yes: Deferred Genitourinary: No: Anuria Breast(s): Yes: WNL Musculoskeletal: Yes: WNL Extremities: Yes: WNL Edema: No Peripheral Pulses WNL: Yes Integumentary: Yes: WNL Wound/Incision: Yes: Clean/Dry Neurological: Yes: Weakness Psychiatric: Yes: Alert, Oriented Labs: CBC, BMP 08/03/17 07:00 08/02/17 06:25 INR, PTT INR 1.62 (0.82-1.09) H 08/03/17 07:00 Fibrinogen 252.0 mg/dL (238-498) D 07/31/17 05:25 Abnormal Lab Results 08/03/17 08/03/17 08/03/17 07:00 07:00 12:10 WBC 15.9 H RBC 2.89 L Hgb 8.9 L Hct 26.7 L RDW 18.3 H Plt Count 58 L PT with INR 18.30 H INR 1.62 H PTT (Actin FS) 110.9 H D - ....Imaging Other: Image Reviewed (telemetry: AF; controlled VR) Problem List - Problems (1) COPD (chronic obstructive pulmonary disease) with chronic bronchitis Assessment/Plan: bronchodilators per regulatory affairs assistant. Code(s): J44.9 - CHRONIC OBSTRUCTIVE PULMONARY DISEASE, UNSPECIFIED (2) History of mitral valve replacement with bioprosthetic valve Assessment/Plan: recent surgery for valve replacement. Code(s): Z95.3 - PRESENCE OF XENOGENIC HEART VALVE (3) Anemia Assessment/Plan: s/p PRBCs and platelets; continued leukocytosis (though improving in past 24 hours), anemia, thrombocytopenia f/u with company controller regarding timing of restart of antiplatelets and anticoagulant. Code(s): D64.9 - ANEMIA, UNSPECIFIED Qualifiers: Anemia type: other cause Other causes of anemia: acute posthemorrhagic Qualified Code(s): D62 - Acute posthemorrhagic anemia; D62 - Acute posthemorrhagic anemia (4) Anxiety and depression Code(s): F41.9 - ANXIETY DISORDER, UNSPECIFIED F32.9 - MAJOR DEPRESSIVE DISORDER, SINGLE EPISODE, UNSPECIFIED (5) Atrial fibrillation Assessment/Plan: telemetry: AF; remains in controlled VR on Bysgtolic and diltiazem for HR control. Resume warfarin when cleared by company controller; remains problematic at this time ( anemia; thrombocytopenia). Code(s): I48.91 - UNSPECIFIED ATRIAL FIBRILLATION Qualifiers: Atrial fibrillation type: permanent Qualified Code(s): I48.2 - Chronic atrial fibrillation; I48.2 - Chronic atrial fibrillation; I48.2 - Chronic atrial fibrillation; I48.2 - Chronic atrial fibrillation (6) Diabetes Assessment/Plan: Consider ACEI or ARB (HTN; DM). Code(s): E11.9 - TYPE 2 DIABETES MELLITUS WITHOUT COMPLICATIONS
[2017-08-03] MEDS: MONTELUKAST NA 10 MG TABLET PO SCH (21:59)
--- NOTE | 2017-08-03 22:23 | PN ---
Progress Note, Physician Chief Complaint: SOB, Mitral valve replacement, IJ thrombosis, hemotoma, thrombocytopenia History of Present Illness: NAD, sleeping in bed on heparin drip, until become therapeutic on warfarin again seen by Hematology, pulmonary and cardiology H/H and plt better stable - Current Medication List Current Medications: Active Medications Acetaminophen (Tylenol -) 650 mg PO Q6H PRN PRN Reason: PAIN Last Admin: 07/29/17 22:24 Dose: 650 mg Acetylcysteine (Mucomyst 20 Oral / Inh Use Only*) 200 mg NEB QIDR [facility] Last Admin: 08/03/17 17:17 Dose: Not Given Aspirin (Asa -) 81 mg PO DAILY [facility] Last Admin: 07/31/17 09:41 Dose: Not Given Budesonide (Pulmicort 0.25 Mg Nebulizer -) 1 amp NEB BID [facility] Last Admin: 08/03/17 10:03 Dose: Not Given Calcium Carbonate (Calcium Carbonate -) 650 mg PO DAILY [facility] Last Admin: 08/03/17 11:11 Dose: 650 mg Digoxin (Lanoxin -) 0.125 mg PO DAILY [facility] Last Admin: 08/03/17 11:11 Dose: 0.125 mg Diltiazem HCl (Cardizem Cd -) 360 mg PO DAILY [facility] Last Admin: 08/03/17 11:13 Dose: 360 mg Furosemide (Lasix -) 40 mg PO DAILY [facility] Last Admin: 08/03/17 11:11 Dose: 40 mg Guaifenesin (Diabetic Tussin Dm -) 5 ml PO Q4H PRN PRN Reason: COUGH Last Admin: 07/31/17 22:28 Dose: 5 ml Heparin Sodium (Porcine) (Heparin -) 1,000 unit IVPUSH PRN PRN PRN Reason: Heparin Heparin Sodium (Porcine) (Heparin -) 5,000 unit IVPUSH PRN PRN PRN Reason: Heparin Last Admin: 08/03/17 00:38 Dose: 5,000 unit IV Flush (Triple Lumen Flush) 4 ml IVPUSH PRN PRN PRN Reason: Protocol IV Flush (Picc Line Flush) 8 ml IVPUSH PRN PRN PRN Reason: Protocol Heparin Sodium (Porcine) 25, (000 unit/ Sodium Chloride) 500 mls @ 20 mls/hr IV TITR BLESSING; 1,000 UNIT/HR PRN Reason: Protocol Last Titration: 08/03/17 12:48 Dose: 1,000 unit/hr Insulin Aspart (Novolog Vial Sliding Scale -) 1 vial SQ [facility] PRN Reason: Protocol Last Admin: 08/03/17 22:00 Dose: Not Given Insulin Detemir (Levemir Vial) 10 units SQ AM [facility] Last Admin: 08/03/17 06:31 Dose: 10 units Metformin HCl (Glucophage -) 500 mg PO BID@0700,1630 [facility] Last Admin: 08/03/17 17:31 Dose: 500 mg Montelukast Sodium (Singulair -) 10 mg PO HS [facility] Last Admin: 08/03/17 21:59 Dose: 10 mg Nebivolol (Bystolic -) 2.5 mg PO DAILY [facility] Last Admin: 08/03/17 11:13 Dose: 2.5 mg Potassium Chloride (K-Dur -) 20 meq PO DAILY [facility] Last Admin: 08/03/17 11:11 Dose: 20 meq Prednisone (Deltasone -) 30 mg PO BID [facility] Last Admin: 08/03/17 21:59 Dose: 30 mg Ranitidine HCl (Zantac -) 150 mg PO DAILY [facility] Last Admin: 08/03/17 11:11 Dose: 150 mg Senna (Senna -) 1 tab PO DAILY [facility] Last Admin: 08/03/17 11:19 Dose: Not Given Warfarin Sodium (Coumadin -) 5 mg PO DAILY@1800 [facility] Last Admin: 07/31/17 17:12 Dose: Not Given - Objective Vital Signs: Vital Signs Temperature 98.5 F 08/03/17 20:50 Pulse Rate 61 08/03/17 20:50 Respiratory Rate 20 08/03/17 20:50 Blood Pressure 121/73 08/03/17 20:50 O2 Sat by Pulse Oximetry (%) 98 08/03/17 20:50 Constitutional: Yes: Well Nourished, No Distress, Calm Cardiovascular: Yes: Regular Rate and Rhythm Respiratory: Yes: Regular Musculoskeletal: Yes: WNL Extremities: Yes: WNL Neurological: Yes: Alert, Oriented Psychiatric: Yes: Alert, Oriented Labs: CBC, BMP 08/03/17 07:00 08/02/17 06:25 INR, PTT INR 1.62 (0.82-1.09) H 08/03/17 07:00 Fibrinogen 252.0 mg/dL (238-498) D 07/31/17 05:25 Problem List - Problems (1) CHF (congestive heart failure) Assessment/Plan: -on furosemide 40 mg changed to PO -seen by cardiology Code(s): I50.9 - HEART FAILURE, UNSPECIFIED (2) COPD (chronic obstructive pulmonary disease) Assessment/Plan: -seen by Pulmonary -PO steroids -neb txs -nasal o2 Code(s): J44.9 - CHRONIC OBSTRUCTIVE PULMONARY DISEASE, UNSPECIFIED (3) S/P MVR (mitral valve replacement) Assessment/Plan: -seen by cardiology -Echo done -Warfarin restarted -on heparin drip until therapeutic on warfarin, goal 2.5-3.5 -MVR and LIJ thrombus -repeat labs in AM Code(s): Z95.2 - PRESENCE OF PROSTHETIC HEART VALVE (4) Shortness of breath Assessment/Plan: -Improved -nasal o2 -PO steroids -neb tx -seen by Pulmonary -ABG nl Code(s): R06.02 - SHORTNESS OF BREATH (5) Anemia due to acute blood loss Assessment/Plan: -seen by hematology Code(s): D62 - ACUTE POSTHEMORRHAGIC ANEMIA (6) Internal jugular vein thrombosis Assessment/Plan: -on heparin drip now -started on Warfarin, goal 2.5-3.5 -seen by hematology Code(s): I82.C19 - ACUTE EMBOLISM AND THROMBOSIS OF UNSP INTERNAL JUGULAR VEIN Assessment/Plan see problem list
[2017-08-04] MEDS: INSULIN SLIDING SCALE (NOVOLOG) 1 VIAL SQ SCH ×4 (06:00→22:33)
[2017-08-04] MEDS: ACETYLCYSTEINE 20% 200MG/ML 4 ML VIAL *FOR ORAL / INH USE ONLY NEB SCH ×2 (06:24→12:06)
[2017-08-04] MEDS: INSULIN DETEMIR 100 UNITS/ML MDV SQ SCH (06:31)
[2017-08-04] MEDS: metFORMIN HCL 500 MG TABLET (FP) PO SCH ×2 (06:31→16:49)
[2017-08-04 06:54] LABS: MCH 30.6 pg (25.7-33.7); MEAN CELL VOLUME 92.6 fl (80-96); MEAN PLT VOLUME 7.9 fl (7.5-11.1); PLATELET COUNT 42 K/MM3 (134-434); RDW 18.5 % (11.6-15.6); WHITE BLOOD COUNT 15.3 K/mm3 (4.0-10.0)
[2017-08-04] MEDS: HEPARIN - 25,000 UNIT in SODIUM CHLORIDE 495 ML IV SCH (08:18)
[2017-08-04] MEDS: FUROSEMIDE 40 MG TABLET (FP) PO SCH (09:47)
[2017-08-04] MEDS: ASPIRIN 81 MG CHEWABLE TABLETS PO SCH (09:47)
[2017-08-04] MEDS: CALCIUM CARBONATE 650 MG TABLET PO SCH (09:47)
[2017-08-04] MEDS: SENNOSIDES 8.6MG TABLET (FP) PO SCH (09:48)
[2017-08-04] MEDS: predniSONE 20 MG TABLET (UD) PO SCH ×2 (09:48→22:33)
[2017-08-04] MEDS: RANITIDINE HCL 150 MG TABLET (FP) PO SCH (09:49)
[2017-08-04] MEDS: DIGOXIN 0.125 MG TABLET (FP) PO SCH (09:50)
[2017-08-04] MEDS: POTASSIUM CHLORIDE TABS 20 MEQ TABLET.ER (FP) PO SCH (09:52)
[2017-08-04] MEDS ORDERED: PT OWN MED DRAWER 7, Y5N ONE ×3 (09:54→22:09)
[2017-08-04] MEDS: NEBIVOLOL 2.5 MG TABLET (FP) PO SCH (09:56)
[2017-08-04] MEDS: BUDESONIDE 0.25 MG/2ML INH SUSP VIAL NEB SCH ×2 (10:16→22:36)
[2017-08-04] MEDS ORDERED: ALBUTEROL SO4 0.083% IH SOL 2.5 MG/3 ML VIAL.NEB. NEB ONE (10:33)
--- NOTE | 2017-08-04 10:54 | PN ---
Progress Note, Physician History of Present Illness: PULMONARY ALERT,FEELING BETTER,LESS COUGH - Current Medication List Current Medications: Active Medications Acetaminophen (Tylenol -) 650 mg PO Q6H PRN PRN Reason: PAIN Last Admin: 07/29/17 22:24 Dose: 650 mg Acetylcysteine (Mucomyst 20 Oral / Inh Use Only*) 200 mg NEB QIDR [facility] Last Admin: 08/04/17 06:24 Dose: Not Given Aspirin (Asa -) 81 mg PO DAILY [facility] Last Admin: 08/04/17 09:47 Dose: 81 mg Budesonide (Pulmicort 0.25 Mg Nebulizer -) 1 amp NEB BID [facility] Last Admin: 08/03/17 22:55 Dose: 1 amp Calcium Carbonate (Calcium Carbonate -) 650 mg PO DAILY [facility] Last Admin: 08/04/17 09:47 Dose: 650 mg Digoxin (Lanoxin -) 0.125 mg PO DAILY [facility] Last Admin: 08/04/17 09:50 Dose: 0.125 mg Diltiazem HCl (Cardizem Cd -) 360 mg PO DAILY [facility] Last Admin: 08/04/17 09:52 Dose: 360 mg Furosemide (Lasix -) 40 mg PO DAILY [facility] Last Admin: 08/04/17 09:47 Dose: 40 mg Guaifenesin (Diabetic Tussin Dm -) 5 ml PO Q4H PRN PRN Reason: COUGH Last Admin: 07/31/17 22:28 Dose: 5 ml Heparin Sodium (Porcine) (Heparin -) 1,000 unit IVPUSH PRN PRN PRN Reason: Heparin Heparin Sodium (Porcine) (Heparin -) 5,000 unit IVPUSH PRN PRN PRN Reason: Heparin Last Admin: 08/03/17 23:26 Dose: 5,000 unit IV Flush (Triple Lumen Flush) 4 ml IVPUSH PRN PRN PRN Reason: Protocol IV Flush (Picc Line Flush) 8 ml IVPUSH PRN PRN PRN Reason: Protocol Heparin Sodium (Porcine) 25, (000 unit/ Sodium Chloride) 500 mls @ 20 mls/hr IV TITR BLESSING; 1,000 UNIT/HR PRN Reason: Protocol Last Titration: 08/04/17 08:18 Dose: 1,000 unit/hr Insulin Aspart (Novolog Vial Sliding Scale -) 1 vial SQ ACHS [facility] PRN Reason: Protocol Last Admin: 08/04/17 06:00 Dose: Not Given Insulin Detemir (Levemir Vial) 10 units SQ AM [facility] Last Admin: 08/04/17 06:31 Dose: 10 units Metformin HCl (Glucophage -) 500 mg PO BID@0700,1630 [facility] Last Admin: 08/04/17 06:31 Dose: 500 mg Montelukast Sodium (Singulair -) 10 mg PO HS [facility] Last Admin: 08/03/17 21:59 Dose: 10 mg Nebivolol (Bystolic -) 2.5 mg PO DAILY [facility] Last Admin: 08/04/17 09:56 Dose: 2.5 mg Potassium Chloride (K-Dur -) 20 meq PO DAILY [facility] Last Admin: 08/04/17 09:52 Dose: 20 meq Prednisone (Deltasone -) 30 mg PO BID [facility] Last Admin: 08/04/17 09:48 Dose: 30 mg Ranitidine HCl (Zantac -) 150 mg PO DAILY [facility] Last Admin: 08/04/17 09:49 Dose: 150 mg Senna (Senna -) 1 tab PO DAILY [facility] Last Admin: 08/04/17 09:48 Dose: 1 tab Warfarin Sodium (Coumadin -) 5 mg PO DAILY@1800 [facility] Last Admin: 07/31/17 17:12 Dose: Not Given - Objective Vital Signs: Vital Signs Temperature 98.1 F 08/04/17 08:34 Pulse Rate 91 H 08/04/17 09:50 Respiratory Rate 20 08/04/17 08:39 Blood Pressure 153/83 08/04/17 08:34 O2 Sat by Pulse Oximetry (%) 98 08/03/17 21:00 Constitutional: Yes: Well Nourished, Calm Eyes: Yes: WNL HENT: Yes: WNL Neck: Yes: WNL Cardiovascular: Yes: Pulse Irregular, S1, S2 Respiratory: Yes: Rales, Wheezes (BIBASILAR RALES,FEW SCATTERED CHIQUITA WHEEZES) Gastrointestinal: Yes: Normal Bowel Sounds, Soft Extremities: Yes: WNL Edema: No Labs: CBC, BMP 08/04/17 06:25 08/02/17 06:25 INR, PTT INR 1.62 (0.82-1.09) H 08/03/17 07:00 Fibrinogen 252.0 mg/dL (238-498) D 07/31/17 05:25 Assessment/Plan IMP COPD /ASTHMA EXACERBATION IMPROVING CHF MVR RECENT/NL CORONARIES PERMANENT AF H/O VTE HTN/PULMONARY HTN LLL OPACITY LIKELY PARTIAL ATELECTASIS LLL LEFT IJ PHLEBITIS ANEMIA THROMBOCYTOPENIA WORSENING HEMATOMA O2 BRONCHODILATORS A/C PER INR DIURETICS PREDNISONE 30 BID BRONCHODILATORS CHEST PT MUCOMYST F/U CHEST CT OUTPATIENT IF NO CHANGE LLL CONSOLIDATION CONSIDER BRONCHOSCOPY PULMONARY REHAB POST DISCHARGE MONITOR H+H,PLTS NORMAL TRANSFUSION THRESHOLD HEMATOLOGY F/U DR YE Problem List - Problems (1) COPD (chronic obstructive pulmonary disease) with chronic bronchitis Code(s): J44.9 - CHRONIC OBSTRUCTIVE PULMONARY DISEASE, UNSPECIFIED (2) Acute asthma exacerbation Code(s): J45.901 - UNSPECIFIED ASTHMA WITH (ACUTE) EXACERBATION Qualifiers: (3) Anxiety and depression Code(s): F41.9 - ANXIETY DISORDER, UNSPECIFIED F32.9 - MAJOR DEPRESSIVE DISORDER, SINGLE EPISODE, UNSPECIFIED (4) Mitral valve replaced Code(s): Z95.2 - PRESENCE OF PROSTHETIC HEART VALVE
--- NOTE | 2017-08-04 11:25 | PN ---
Progress Note, Physician History of Present Illness: seen and examined today in nad. states her sob is not improved today and still coughing. - Current Medication List Current Medications: Active Medications Acetaminophen (Tylenol -) 650 mg PO Q6H PRN PRN Reason: PAIN Last Admin: 07/29/17 22:24 Dose: 650 mg Acetylcysteine (Mucomyst 20 Oral / Inh Use Only*) 200 mg NEB QIDR BLESSING Last Admin: 08/04/17 06:24 Dose: Not Given Aspirin (Asa -) 81 mg PO DAILY [facility] Last Admin: 08/04/17 09:47 Dose: 81 mg Budesonide (Pulmicort 0.25 Mg Nebulizer -) 1 amp NEB BID [facility] Last Admin: 08/03/17 22:55 Dose: 1 amp Calcium Carbonate (Calcium Carbonate -) 650 mg PO DAILY [facility] Last Admin: 08/04/17 09:47 Dose: 650 mg Digoxin (Lanoxin -) 0.125 mg PO DAILY [facility] Last Admin: 08/04/17 09:50 Dose: 0.125 mg Diltiazem HCl (Cardizem Cd -) 360 mg PO DAILY [facility] Last Admin: 08/04/17 09:52 Dose: 360 mg Furosemide (Lasix -) 40 mg PO DAILY [facility] Last Admin: 08/04/17 09:47 Dose: 40 mg Guaifenesin (Diabetic Tussin Dm -) 5 ml PO Q4H PRN PRN Reason: COUGH Last Admin: 07/31/17 22:28 Dose: 5 ml Heparin Sodium (Porcine) (Heparin -) 1,000 unit IVPUSH PRN PRN PRN Reason: Heparin Heparin Sodium (Porcine) (Heparin -) 5,000 unit IVPUSH PRN PRN PRN Reason: Heparin Last Admin: 08/03/17 23:26 Dose: 5,000 unit IV Flush (Triple Lumen Flush) 4 ml IVPUSH PRN PRN PRN Reason: Protocol IV Flush (Picc Line Flush) 8 ml IVPUSH PRN PRN PRN Reason: Protocol Heparin Sodium (Porcine) 25, (000 unit/ Sodium Chloride) 500 mls @ 20 mls/hr IV TITR BLESSING; 1,000 UNIT/HR PRN Reason: Protocol Last Titration: 08/04/17 08:18 Dose: 1,000 unit/hr Insulin Aspart (Novolog Vial Sliding Scale -) 1 vial SQ ACHS [facility] PRN Reason: Protocol Last Admin: 08/04/17 11:04 Dose: Not Given Insulin Detemir (Levemir Vial) 10 units SQ AM [facility] Last Admin: 08/04/17 06:31 Dose: 10 units Metformin HCl (Glucophage -) 500 mg PO BID@0700,1630 [facility] Last Admin: 08/04/17 06:31 Dose: 500 mg Montelukast Sodium (Singulair -) 10 mg PO HS [facility] Last Admin: 08/03/17 21:59 Dose: 10 mg Nebivolol (Bystolic -) 2.5 mg PO DAILY [facility] Last Admin: 08/04/17 09:56 Dose: 2.5 mg Potassium Chloride (K-Dur -) 20 meq PO DAILY [facility] Last Admin: 08/04/17 09:52 Dose: 20 meq Prednisone (Deltasone -) 30 mg PO BID [facility] Last Admin: 08/04/17 09:48 Dose: 30 mg Ranitidine HCl (Zantac -) 150 mg PO DAILY [facility] Last Admin: 08/04/17 09:49 Dose: 150 mg Senna (Senna -) 1 tab PO DAILY [facility] Last Admin: 08/04/17 09:48 Dose: 1 tab Warfarin Sodium (Coumadin -) 5 mg PO DAILY@1800 [facility] Last Admin: 07/31/17 17:12 Dose: Not Given - Objective Vital Signs: Vital Signs Temperature 98.1 F 08/04/17 08:34 Pulse Rate 91 H 08/04/17 09:50 Respiratory Rate 20 08/04/17 08:39 Blood Pressure 153/83 08/04/17 08:34 O2 Sat by Pulse Oximetry (%) 98 08/03/17 21:00 Constitutional: Yes: No Distress, Calm Eyes: Yes: Conjunctiva Clear, EOM Intact, PERRL HENT: Yes: Atraumatic, Normocephalic Neck: Yes: Supple, Trachea Midline Cardiovascular: Yes: Pulse Irregular, Murmur, S1, S2, Other ([facility] MVR). No: Bradycardia, Tachycardia, Bruit, JVD, Gallop, Rub, S3, S4, Varicosities Respiratory: Yes: Regular, Cough, Diminished, Rhonchi, Wheezes. No: Rales, SOB Gastrointestinal: Yes: Normal Bowel Sounds, Soft. No: Distention, Tenderness Edema: No Peripheral Pulses WNL: Yes Peripheral Pulses: Left Doralis Pedis: 2+, Right Dorsalis Pedis: 2+ Neurological: Yes: Alert, Oriented Psychiatric: Yes: Alert, Oriented Labs: CBC, BMP 08/04/17 06:25 08/02/17 06:25 INR, PTT INR 1.62 (0.82-1.09) H 08/03/17 07:00 Fibrinogen 252.0 mg/dL (238-498) D 07/31/17 05:25 - ....Imaging Chest X-ray: Report Reviewed, Image Reviewed EKG: Report Reviewed, Image Reviewed Other: Report Reviewed, Image Reviewed (tele-AFib, HR adequately controlled) Assessment/Plan AE COPD Acute on chronic diastolic CHF, mild S/P Bioprosthetic MVR, few weeks ago Permanent AF Chronic COPD with exacerbation L IJ thrombus Fall yesterday, ? RP bleed Thrombocytopenia Abdominal wall hematoma REC: AFib-HR is adequately controlled -heparin bridge to coumadin resumed, f/up Hematology reccs given thrombocytopenia -cont cardizem, digoxin, bystolic SOB-AE COPD, euvolemic, chronic diastolic CHF -cont po lasix -pulm f/up Bio MVR -AC as above Would stop ASA given thrombocytopenia and recent bleed and as pt is on coumadin
--- NOTE | 2017-08-04 12:53 | PN ---
Progress Note, Physician Chief Complaint: patient seen and examined getting nebulizers treatment on heparin drip has abdominal/ chest wall hematoma h/h stable platelet dropped from 58 to 42 - Current Medication List Current Medications: Active Medications Acetaminophen (Tylenol -) 650 mg PO Q6H PRN PRN Reason: PAIN Last Admin: 07/29/17 22:24 Dose: 650 mg Budesonide (Pulmicort 0.25 Mg Nebulizer -) 1 amp NEB BID [facility] Last Admin: 08/03/17 22:55 Dose: 1 amp Calcium Carbonate (Calcium Carbonate -) 650 mg PO DAILY [facility] Last Admin: 08/04/17 09:47 Dose: 650 mg Digoxin (Lanoxin -) 0.125 mg PO DAILY [facility] Last Admin: 08/04/17 09:50 Dose: 0.125 mg Diltiazem HCl (Cardizem Cd -) 360 mg PO DAILY [facility] Last Admin: 08/04/17 09:52 Dose: 360 mg Furosemide (Lasix -) 40 mg PO DAILY [facility] Last Admin: 08/04/17 09:47 Dose: 40 mg Guaifenesin (Diabetic Tussin Dm -) 5 ml PO Q4H PRN PRN Reason: COUGH Last Admin: 07/31/17 22:28 Dose: 5 ml Heparin Sodium (Porcine) (Heparin -) 1,000 unit IVPUSH PRN PRN PRN Reason: Heparin Heparin Sodium (Porcine) (Heparin -) 5,000 unit IVPUSH PRN PRN PRN Reason: Heparin Last Admin: 08/03/17 23:26 Dose: 5,000 unit IV Flush (Triple Lumen Flush) 4 ml IVPUSH PRN PRN PRN Reason: Protocol IV Flush (Picc Line Flush) 8 ml IVPUSH PRN PRN PRN Reason: Protocol Heparin Sodium (Porcine) 25, (000 unit/ Sodium Chloride) 500 mls @ 20 mls/hr IV TITR BLESSING; 1,000 UNIT/HR PRN Reason: Protocol Last Titration: 08/04/17 08:18 Dose: 1,000 unit/hr Insulin Aspart (Novolog Vial Sliding Scale -) 1 vial SQ ACHS [facility] PRN Reason: Protocol Last Admin: 08/04/17 11:04 Dose: Not Given Insulin Detemir (Levemir Vial) 10 units SQ AM [facility] Last Admin: 08/04/17 06:31 Dose: 10 units Metformin HCl (Glucophage -) 500 mg PO BID@0700,1630 [facility] Last Admin: 08/04/17 06:31 Dose: 500 mg Montelukast Sodium (Singulair -) 10 mg PO HS [facility] Last Admin: 08/03/17 21:59 Dose: 10 mg Nebivolol (Bystolic -) 2.5 mg PO DAILY [facility] Last Admin: 08/04/17 09:56 Dose: 2.5 mg Potassium Chloride (K-Dur -) 20 meq PO DAILY [facility] Last Admin: 08/04/17 09:52 Dose: 20 meq Prednisone (Deltasone -) 30 mg PO BID [facility] Last Admin: 08/04/17 09:48 Dose: 30 mg Ranitidine HCl (Zantac -) 150 mg PO DAILY [facility] Last Admin: 08/04/17 09:49 Dose: 150 mg Senna (Senna -) 1 tab PO DAILY [facility] Last Admin: 08/04/17 09:48 Dose: 1 tab Warfarin Sodium (Coumadin -) 5 mg PO DAILY@1800 [facility] Last Admin: 07/31/17 17:12 Dose: Not Given - Objective Vital Signs: Vital Signs Temperature 98.1 F 08/04/17 08:34 Pulse Rate 91 H 08/04/17 09:50 Respiratory Rate 20 08/04/17 08:39 Blood Pressure 153/83 08/04/17 08:34 O2 Sat by Pulse Oximetry (%) 98 08/03/17 21:00 Constitutional: Yes: Calm Cardiovascular: Yes: Pulse Irregular, S1, S2 Respiratory: Yes: Rhonchi Gastrointestinal: Yes: Normal Bowel Sounds, Soft Edema: No Integumentary: Yes: Other (hematoma in left lower lateral chest and abdominal wall) Neurological: Yes: Alert, Oriented Labs: CBC, BMP 08/04/17 06:25 08/02/17 06:25 INR, PTT INR 1.62 (0.82-1.09) H 08/03/17 07:00 Fibrinogen 252.0 mg/dL (238-498) D 07/31/17 05:25 Problem List - Problems (1) Fall Assessment/Plan: s/p fall ct head negative has left upper abdominal /chest wall hematoma monitior h/h on platelet will monitor for increase in size Code(s): W19.XXXA - UNSPECIFIED FALL, INITIAL ENCOUNTER (2) Internal jugular vein thrombosis Assessment/Plan: on heparin drip thrombocytopenia not on couamdin right now heme FU Code(s): I82.C19 - ACUTE EMBOLISM AND THROMBOSIS OF UNSP INTERNAL JUGULAR VEIN (3) S/P MVR (mitral valve replacement) Assessment/Plan: on heparin drip monitor platelet not on couamdin as yet Code(s): Z95.2 - PRESENCE OF PROSTHETIC HEART VALVE (4) CHF (congestive heart failure) Assessment/Plan: on po lasix check cmp today on k dur supplements Code(s): I50.9 - HEART FAILURE, UNSPECIFIED (5) COPD (chronic obstructive pulmonary disease) with chronic bronchitis Assessment/Plan: prednisone taper 30mg po bid chest CT as outpatient bronchodilator mucomyst Code(s): J44.9 - CHRONIC OBSTRUCTIVE PULMONARY DISEASE, UNSPECIFIED (6) Atrial fibrillation Assessment/Plan: permenant afb cardizem heparin drip not on couamdin as yet given low platelets Code(s): I48.91 - UNSPECIFIED ATRIAL FIBRILLATION Qualifiers: Atrial fibrillation type: permanent Qualified Code(s): I48.2 - Chronic atrial fibrillation; I48.2 - Chronic atrial fibrillation; I48.2 - Chronic atrial fibrillation; I48.2 - Chronic atrial fibrillation (7) Hyperglycemia Assessment/Plan: seen by endo metformin and levemir Code(s): R73.9 - HYPERGLYCEMIA, UNSPECIFIED
[2017-08-04] MEDS: WARFARIN NA 5 MG TABLET (UD) PO SCH (17:43)
[2017-08-04 20:57] LABS: MCH 30.8 pg (25.7-33.7); MCHC 32.8 g/dl (32.0-36.0); MEAN PLT VOLUME 8.1 fl (7.5-11.1); NEUTROPHILS 94.6 % (42.8-82.8); PLATELET COUNT 47 K/MM3 (134-434); RDW 18.6 % (11.6-15.6); WHITE BLOOD COUNT 15.8 K/mm3 (4.0-10.0)
--- NOTE | 2017-08-04 21:43 | PN ---
Progress Note (short form) - Note Progress Note: Patient seen and examined Denies any complaints AFVSS Cor: RSR, No murmurs, No gallops Lungs: Clear to P&A Abd: Soft, Normal bowel sounds, Large Lt. 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 flank hematoma, s/p fall Hemoglobin stable. Do not suspect active bleeding Discussed with cardiology--a/c on hold due to thrombocytopenia--[id number] Could consider resumong heparin drip without bolus for platelets > 50,000 as long as no active bleeding thrombocytopenia --- timing coincides with fall/hematoma ? consumption but further decrease would check for occult infection-- ID consult check coags' Unlikely HIT given time frame and lack of heparin exposure until 08/03 monitor may need to hold a/c for platelets < 50,000 discussed with cardiology
[2017-08-04 21:49] LABS: INR 1.15 (0.82-1.09)
[2017-08-04 21:52] LABS: ACTIVATED PTT 23.9 SECONDS (26.9-34.4)
[2017-08-04] MEDS: MONTELUKAST NA 10 MG TABLET PO SCH (22:33)
[2017-08-04] MEDS: ACETAMINOPHEN 325 MG TABLET (FP) PO PRN (22:35)
[2017-08-04] MEDS: guaiFENesin/D-M SUGAR-FREE/ACLHOL-FREE 118 ML BOTTLE PO PRN (22:35)
[2017-08-05] MEDS: INSULIN SLIDING SCALE (NOVOLOG) 1 VIAL SQ SCH ×4 (06:42→22:11)
[2017-08-05] MEDS: INSULIN DETEMIR 100 UNITS/ML MDV SQ SCH (06:43)
[2017-08-05] MEDS: metFORMIN HCL 500 MG TABLET (FP) PO SCH ×2 (06:43→17:39)
--- NOTE | 2017-08-05 09:01 | PN ---
Progress Note, Physician Chief Complaint: alert, no distress TELE: AF with average rate < 100bpm, no sig pauses - Current Medication List Current Medications: Active Medications Acetaminophen (Tylenol -) 650 mg PO Q6H PRN PRN Reason: PAIN Last Admin: 08/04/17 22:35 Dose: 650 mg Budesonide (Pulmicort 0.25 Mg Nebulizer -) 1 amp NEB BID [facility] Last Admin: 08/04/17 22:36 Dose: 1 amp Calcium Carbonate (Calcium Carbonate -) 650 mg PO DAILY [facility] Last Admin: 08/04/17 09:47 Dose: 650 mg Digoxin (Lanoxin -) 0.125 mg PO DAILY [facility] Last Admin: 08/04/17 09:50 Dose: 0.125 mg Diltiazem HCl (Cardizem Cd -) 360 mg PO DAILY [facility] Last Admin: 08/04/17 09:52 Dose: 360 mg Furosemide (Lasix -) 40 mg PO DAILY [facility] Last Admin: 08/04/17 09:47 Dose: 40 mg Guaifenesin (Diabetic Tussin Dm -) 5 ml PO Q4H PRN PRN Reason: COUGH Last Admin: 08/04/17 22:35 Dose: 5 ml IV Flush (Triple Lumen Flush) 4 ml IVPUSH PRN PRN PRN Reason: Protocol IV Flush (Picc Line Flush) 8 ml IVPUSH PRN PRN PRN Reason: Protocol Insulin Aspart (Novolog Vial Sliding Scale -) 1 vial SQ ACHS [facility] PRN Reason: Protocol Last Admin: 08/05/17 06:42 Dose: Not Given Insulin Detemir (Levemir Vial) 10 units SQ AM [facility] Last Admin: 08/05/17 06:43 Dose: 10 units Metformin HCl (Glucophage -) 500 mg PO BID@0700,1630 [facility] Last Admin: 08/05/17 06:43 Dose: 500 mg Montelukast Sodium (Singulair -) 10 mg PO HS [facility] Last Admin: 08/04/17 22:33 Dose: 10 mg Nebivolol (Bystolic -) 2.5 mg PO DAILY [facility] Last Admin: 08/04/17 09:56 Dose: 2.5 mg Potassium Chloride (K-Dur -) 20 meq PO DAILY [facility] Last Admin: 08/04/17 09:52 Dose: 20 meq Prednisone (Deltasone -) 20 mg PO BID [facility] Last Admin: 08/04/17 22:33 Dose: 20 mg Ranitidine HCl (Zantac -) 150 mg PO DAILY [facility] Last Admin: 08/04/17 09:49 Dose: 150 mg Senna (Senna -) 1 tab PO DAILY [facility] Last Admin: 08/04/17 09:48 Dose: 1 tab Warfarin Sodium (Coumadin -) 5 mg PO DAILY@1800 [facility] Last Admin: 08/04/17 17:43 Dose: Not Given - Objective Vital Signs: Vital Signs Temperature 97.8 F 08/05/17 06:00 Pulse Rate 85 08/05/17 06:00 Respiratory Rate 20 08/05/17 06:00 Blood Pressure 140/85 08/05/17 06:00 O2 Sat by Pulse Oximetry (%) 100 08/04/17 21:00 Constitutional: Yes: Calm Cardiovascular: Yes: Pulse Irregular Respiratory: Yes: Other (b/l rhonchi) Gastrointestinal: Yes: Soft Edema: No Neurological: Yes: Alert, Oriented Labs: CBC, BMP 08/04/17 19:45 08/02/17 06:25 INR, PTT INR 1.15 (0.82-1.09) H 08/04/17 19:45 Fibrinogen 229.0 mg/dL (238-498) L 08/04/17 19:45 Laboratory Tests 07/29/17 07/29/17 07/29/17 06:15 06:15 06:15 WBC 25.7 H D Hgb 8.5 L D Plt Count 78 L D INR 4.23 H* D Fibrinogen Sodium 137 Potassium 4.5 BUN 23 H Creatinine 0.7 07/31/17 07/31/17 07/31/17 05:25 05:25 05:25 WBC 18.9 H Hgb 8.0 L D Plt Count 65 L D INR 2.24 H D Fibrinogen Sodium Potassium 4.2 BUN Creatinine 0.7 08/01/17 08/01/17 08/01/17 06:45 06:45 06:45 WBC 16.6 H Hgb 7.3 L Plt Count 56 L INR 1.81 H Fibrinogen Sodium Potassium 4.5 BUN Creatinine 0.7 08/04/17 08/04/17 19:45 19:45 WBC 15.8 H Hgb 9.2 L Plt Count 47 L INR 1.15 H Fibrinogen 229.0 L Sodium Potassium BUN Creatinine - ....Imaging EKG: Image Reviewed Assessment/Plan Bio MVR AF COPD Abdominal wall hematoma s/p fall Anemia Thrombocytopenia REC: Continuation of AC for AF is limited by falling platelet count, yesterday < 50K. AC has been held. Awaiting today's CBC, Heme f/u. Heart rate remains adequately controlled with average < 100bpm.
--- NOTE | 2017-08-05 09:34 | PN ---
Progress Note, Physician History of Present Illness: C/O WEAKNESS NO CP - Current Medication List Current Medications: Active Medications Acetaminophen (Tylenol -) 650 mg PO Q6H PRN PRN Reason: PAIN Last Admin: 08/04/17 22:35 Dose: 650 mg Budesonide (Pulmicort 0.25 Mg Nebulizer -) 1 amp NEB BID [facility] Last Admin: 08/04/17 22:36 Dose: 1 amp Calcium Carbonate (Calcium Carbonate -) 650 mg PO DAILY [facility] Last Admin: 08/04/17 09:47 Dose: 650 mg Digoxin (Lanoxin -) 0.125 mg PO DAILY [facility] Last Admin: 08/04/17 09:50 Dose: 0.125 mg Diltiazem HCl (Cardizem Cd -) 360 mg PO DAILY [facility] Last Admin: 08/04/17 09:52 Dose: 360 mg Furosemide (Lasix -) 40 mg PO DAILY [facility] Last Admin: 08/04/17 09:47 Dose: 40 mg Guaifenesin (Diabetic Tussin Dm -) 5 ml PO Q4H PRN PRN Reason: COUGH Last Admin: 08/04/17 22:35 Dose: 5 ml IV Flush (Triple Lumen Flush) 4 ml IVPUSH PRN PRN PRN Reason: Protocol IV Flush (Picc Line Flush) 8 ml IVPUSH PRN PRN PRN Reason: Protocol Insulin Aspart (Novolog Vial Sliding Scale -) 1 vial SQ ACHS [facility] PRN Reason: Protocol Last Admin: 08/05/17 06:42 Dose: Not Given Insulin Detemir (Levemir Vial) 10 units SQ AM [facility] Last Admin: 08/05/17 06:43 Dose: 10 units Metformin HCl (Glucophage -) 500 mg PO BID@0700,1630 [facility] Last Admin: 08/05/17 06:43 Dose: 500 mg Montelukast Sodium (Singulair -) 10 mg PO HS [facility] Last Admin: 08/04/17 22:33 Dose: 10 mg Nebivolol (Bystolic -) 2.5 mg PO DAILY [facility] Last Admin: 08/04/17 09:56 Dose: 2.5 mg Potassium Chloride (K-Dur -) 20 meq PO DAILY [facility] Last Admin: 08/04/17 09:52 Dose: 20 meq Prednisone (Deltasone -) 20 mg PO BID [facility] Last Admin: 08/04/17 22:33 Dose: 20 mg Ranitidine HCl (Zantac -) 150 mg PO DAILY [facility] Last Admin: 08/04/17 09:49 Dose: 150 mg Senna (Senna -) 1 tab PO DAILY [facility] Last Admin: 08/04/17 09:48 Dose: 1 tab Warfarin Sodium (Coumadin -) 5 mg PO DAILY@1800 [facility] Last Admin: 08/04/17 17:43 Dose: Not Given - Objective Vital Signs: Vital Signs Temperature 97.8 F 08/05/17 06:00 Pulse Rate 85 08/05/17 06:00 Respiratory Rate 20 08/05/17 06:00 Blood Pressure 140/85 08/05/17 06:00 O2 Sat by Pulse Oximetry (%) 100 08/04/17 21:00 Cardiovascular: Yes: Murmur, S1, S2 Respiratory: Yes: Rhonchi Gastrointestinal: Yes: Normal Bowel Sounds, Soft Edema: No Labs: CBC, BMP 08/02/17 06:25 INR, PTT INR 1.15 (0.82-1.09) H 08/04/17 19:45 Fibrinogen 229.0 mg/dL (238-498) L 08/04/17 19:45 Problem List - Problems (1) Internal jugular vein thrombosis Code(s): I82.C19 - ACUTE EMBOLISM AND THROMBOSIS OF UNSP INTERNAL JUGULAR VEIN (2) Retroperitoneal bleed Code(s): R58 - HEMORRHAGE, NOT ELSEWHERE CLASSIFIED Assessment/Plan - Problems (1) Fall Assessment/Plan: s/p fall ct head negative has left upper abdominal /chest wall hematoma monitor h/h on platelet will monitor for increase in size Code(s): W19.XXXA - UNSPECIFIED FALL, INITIAL ENCOUNTER (2) Internal jugular vein thrombosis Assessment/Plan: on heparin drip thrombocytopenia not on couamdin right now heme FU Code(s): I82.C19 - ACUTE EMBOLISM AND THROMBOSIS OF UNSP INTERNAL JUGULAR VEIN (3) S/P MVR (mitral valve replacement) Assessment/Plan: on heparin drip monitor platelet not on couamdin as yet Code(s): Z95.2 - PRESENCE OF PROSTHETIC HEART VALVE (4) CHF (congestive heart failure) Assessment/Plan: on po lasix check cmp today on k dur supplements Code(s): I50.9 - HEART FAILURE, UNSPECIFIED (5) COPD (chronic obstructive pulmonary disease) with chronic bronchitis Assessment/Plan: prednisone taper 30mg po bid chest CT as outpatient bronchodilator mucomyst Code(s): J44.9 - CHRONIC OBSTRUCTIVE PULMONARY DISEASE, UNSPECIFIED (6) Atrial fibrillation Assessment/Plan: permanent afb cardizem heparin drip not on couamdin as yet given low platelets Code(s): I48.91 - UNSPECIFIED ATRIAL FIBRILLATION Qualifiers: Atrial fibrillation type: permanent Qualified Code(s): I48.2 - Chronic atrial fibrillation; I48.2 - Chronic atrial fibrillation; I48.2 - Chronic atrial fibrillation; I48.2 - Chronic atrial fibrillation (7) Hyperglycemia Assessment/Plan: seen by endo metformin and levemir Code(s): R73.9 - HYPERGLYCEMIA, UNSPECIFIED
[2017-08-05 09:36] LABS: MCH 30.5 pg (25.7-33.7); MCHC 32.4 g/dl (32.0-36.0); MEAN CELL VOLUME 93.9 fl (80-96); PLATELET COUNT 38 K/MM3 (134-434); RDW 18.6 % (11.6-15.6); WHITE BLOOD COUNT 13.8 K/mm3 (4.0-10.0)
[2017-08-05] MEDS: BUDESONIDE 0.25 MG/2ML INH SUSP VIAL NEB SCH ×2 (09:49→22:02)
[2017-08-05 09:50] LABS: ACTIVATED PTT 22.9 SECONDS (26.9-34.4)
[2017-08-05 10:01] LABS: INR 1.16 (0.82-1.09); PROTHROMBIN TIME (PATIENT) 13.1 SEC (9.98-11.88)
[2017-08-05] MEDS: FUROSEMIDE 40 MG TABLET (FP) PO SCH (10:10)
[2017-08-05] MEDS: DIGOXIN 0.125 MG TABLET (FP) PO SCH (10:10)
[2017-08-05] MEDS: POTASSIUM CHLORIDE TABS 20 MEQ TABLET.ER (FP) PO SCH (10:10)
[2017-08-05] MEDS: RANITIDINE HCL 150 MG TABLET (FP) PO SCH (10:11)
[2017-08-05] MEDS: CALCIUM CARBONATE 650 MG TABLET PO SCH (10:11)
[2017-08-05] MEDS: SENNOSIDES 8.6MG TABLET (FP) PO SCH (10:11)
[2017-08-05] MEDS: NEBIVOLOL 2.5 MG TABLET (FP) PO SCH (10:11)
[2017-08-05] MEDS: predniSONE 20 MG TABLET (UD) PO SCH ×2 (10:11→22:07)
--- NOTE | 2017-08-05 11:39 | PN ---
Progress Note, Physician History of Present Illness: PULMONARY ALERT,MORE CONGESTED TODAY,+COUGH - Current Medication List Current Medications: Active Medications Acetaminophen (Tylenol -) 650 mg PO Q6H PRN PRN Reason: PAIN Last Admin: 08/04/17 22:35 Dose: 650 mg Budesonide (Pulmicort 0.25 Mg Nebulizer -) 1 amp NEB BID [facility] Last Admin: 08/05/17 09:49 Dose: 1 amp Calcium Carbonate (Calcium Carbonate -) 650 mg PO DAILY [facility] Last Admin: 08/05/17 10:11 Dose: 650 mg Digoxin (Lanoxin -) 0.125 mg PO DAILY [facility] Last Admin: 08/05/17 10:10 Dose: 0.125 mg Diltiazem HCl (Cardizem Cd -) 360 mg PO DAILY [facility] Last Admin: 08/05/17 10:10 Dose: 360 mg Furosemide (Lasix -) 40 mg PO DAILY [facility] Last Admin: 08/05/17 10:10 Dose: 40 mg Guaifenesin (Diabetic Tussin Dm -) 5 ml PO Q4H PRN PRN Reason: COUGH Last Admin: 08/04/17 22:35 Dose: 5 ml IV Flush (Triple Lumen Flush) 4 ml IVPUSH PRN PRN PRN Reason: Protocol IV Flush (Picc Line Flush) 8 ml IVPUSH PRN PRN PRN Reason: Protocol Insulin Aspart (Novolog Vial Sliding Scale -) 1 vial SQ ACHS [facility] PRN Reason: Protocol Last Admin: 08/05/17 06:42 Dose: Not Given Insulin Detemir (Levemir Vial) 10 units SQ AM [facility] Last Admin: 08/05/17 06:43 Dose: 10 units Metformin HCl (Glucophage -) 500 mg PO BID@0700,1630 [facility] Last Admin: 08/05/17 06:43 Dose: 500 mg Montelukast Sodium (Singulair -) 10 mg PO HS [facility] Last Admin: 08/04/17 22:33 Dose: 10 mg Nebivolol (Bystolic -) 2.5 mg PO DAILY [facility] Last Admin: 08/05/17 10:11 Dose: 2.5 mg Potassium Chloride (K-Dur -) 20 meq PO DAILY [facility] Last Admin: 08/05/17 10:10 Dose: 20 meq Prednisone (Deltasone -) 20 mg PO BID [facility] Last Admin: 08/05/17 10:11 Dose: 20 mg Ranitidine HCl (Zantac -) 150 mg PO DAILY [facility] Last Admin: 08/05/17 10:11 Dose: 150 mg Senna (Senna -) 1 tab PO DAILY [facility] Last Admin: 08/05/17 10:11 Dose: 1 tab Warfarin Sodium (Coumadin -) 5 mg PO DAILY@1800 [facility] Last Admin: 08/04/17 17:43 Dose: Not Given - Objective Vital Signs: Vital Signs Temperature 97.8 F 08/05/17 06:00 Pulse Rate 94 H 08/05/17 10:10 Respiratory Rate 20 08/05/17 06:00 Blood Pressure 140/85 08/05/17 06:00 O2 Sat by Pulse Oximetry (%) 100 08/04/17 21:00 Constitutional: Yes: Well Nourished, Calm Eyes: Yes: WNL HENT: Yes: WNL Neck: Yes: WNL Cardiovascular: Yes: Pulse Irregular, S1, S2 Respiratory: Yes: Rhonchi (BILATERAL RHONCHI) Gastrointestinal: Yes: Normal Bowel Sounds, Soft Extremities: Yes: WNL Edema: No Labs: CBC, BMP 08/05/17 06:00 INR, PTT INR 1.16 (0.82-1.09) H 08/05/17 09:45 Fibrinogen 229.0 mg/dL (238-498) L 08/04/17 19:45 - ....Imaging Chest X-ray: Report Reviewed, Image Reviewed Assessment/Plan IMP COPD /ASTHMA EXACERBATION IMPROVING CHF MVR RECENT/NL CORONARIES PERMANENT AF H/O VTE HTN/PULMONARY HTN LLL OPACITY LIKELY PARTIAL ATELECTASIS LLL LEFT IJ PHLEBITIS ANEMIA THROMBOCYTOPENIA WORSENING HEMATOMA O2 BRONCHODILATORS A/C ON HOLD DIURETICS PREDNISONE 40 BID BRONCHODILATORS CHEST PT MUCOMYST F/U CHEST CT OUTPATIENT IF NO CHANGE LLL CONSOLIDATION CONSIDER BRONCHOSCOPY PULMONARY REHAB POST DISCHARGE MONITOR H+H,PLTS NORMAL TRANSFUSION THRESHOLD HEMATOLOGY F/U DR YE Problem List - Problems (1) COPD (chronic obstructive pulmonary disease) with chronic bronchitis Code(s): J44.9 - CHRONIC OBSTRUCTIVE PULMONARY DISEASE, UNSPECIFIED (2) Acute asthma exacerbation Code(s): J45.901 - UNSPECIFIED ASTHMA WITH (ACUTE) EXACERBATION Qualifiers: (3) Anxiety and depression Code(s): F41.9 - ANXIETY DISORDER, UNSPECIFIED F32.9 - MAJOR DEPRESSIVE DISORDER, SINGLE EPISODE, UNSPECIFIED (4) Mitral valve replaced Code(s): Z95.2 - PRESENCE OF PROSTHETIC HEART VALVE
--- NOTE | 2017-08-05 12:53 | PN ---
Progress Note (short form) - Note Progress Note: Pt seen and examined. feels more +cough and congested. O/E: HEENT: NCAT lungs: CTA b/l abdomen: no tenderness noted, felt softer than yesterday Extremities: No CCE Neuro: AAOx3. Skin: echymosses mild. +swelling Last Vital Signs Temp Pulse Resp BP Pulse Ox 97.7 F 78 20 110/63 97 07/31/17 14:00 07/31/17 14:00 07/31/17 08:46 07/31/17 14:00 07/30/17 21:00 CBC, BMP 07/31/17 05:25 07/31/17 05:25 INR, PTT INR 1.81 (0.82-1.09) H 08/01/17 06:45 Fibrinogen 252.0 mg/dL (238-498) D 07/31/17 05:25 Current Medications Generic Name Dose Route Start Last Admin Trade Name Freq PRN Reason Stop Dose Admin Acetaminophen 650 mg 07/14/17 04:07 07/29/17 22:24 Tylenol - PO 650 mg Q6H PRN Administration PAIN Acetylcysteine 200 mg 07/16/17 18:00 07/31/17 11:40 Mucomyst 20 Oral / Inh Use Only* NEB 200 mg QIDR BLESSING Administration Albuterol Sulfate 1 amp 07/27/17 17:18 07/31/17 11:40 Ventolin 0.083% Nebulizer Soln - NEB 1 amp Q6H PRN Administration SHORT OF BREATH/WHEEZING Aspirin 81 mg 07/12/17 10:00 07/31/17 09:41 Asa - PO Not Given DAILY BLESSING Budesonide 1 amp 07/12/17 11:00 07/31/17 09:45 Pulmicort 0.25 Mg Nebulizer - NEB 1 amp BID BLESSING Administration Calcium Carbonate 650 mg 07/13/17 14:15 07/31/17 09:36 Calcium Carbonate - PO 650 mg DAILY BLESSING Administration Digoxin 0.125 mg 07/24/17 10:00 07/31/17 09:36 Lanoxin - PO 0.125 mg DAILY BLESS[facility] Administration Diltiazem HCl 360 mg 07/20/17 10:00 07/31/17 09:35 Cardizem Cd - PO 360 mg DAILY [facility] Administration Furosemide 40 mg 07/14/17 10:00 07/31/17 09:36 Lasix - PO 40 mg DAILY BLESS[facility] Administration Guaifenesin 5 ml 07/13/17 09:54 07/28/17 21:41 Diabetic Tussin Dm - PO 5 ml Q4H PRN Administration COUGH Insulin Aspart 1 vial 07/14/17 07:00 07/31/17 11:37 Novolog Vial Sliding Scale - SQ 2 units ACHS BLESSING Administration Protocol Insulin Detemir 10 units 07/17/17 07:00 07/31/17 07:22 Levemir Vial SQ 10 units AM BLESSING Administration Metformin HCl 500 mg 07/21/17 07:00 07/29/17 06:27 Glucophage - PO Not Given BID@0700,1630 BL[facility] Montelukast Sodium 10 mg 07/22/17 22:00 07/30/17 22:42 Singulair - PO 10 mg HS BLESSING Administration Nebivolol 2.5 mg 07/24/17 10:00 07/31/17 09:41 Bystolic - PO 2.5 mg DAILY BLESSING Administration Potassium Chloride 20 meq 07/12/17 10:00 07/31/17 09:35 K-Dur - PO 20 meq DAILY BLESSING Administration Prednisone 40 mg 07/28/17 22:00 07/31/17 09:35 Deltasone - PO 40 mg BID BLESSING Administration Ranitidine HCl 150 mg 07/12/17 10:00 07/31/17 09:36 Zantac - PO 150 mg DAILY BLESSING Administration Senna 1 tab 07/12/17 10:00 07/31/17 09:36 Senna - PO 1 tab DAILY [facility] Administration Warfarin Sodium 5 mg 07/27/17 18:00 07/28/17 18:45 Coumadin - PO 5 mg DAILY@1800 BLESSING Administration Assessment/Plan: Large Intra muscular hematoma. Thrombocytopenia Anemia in the setting of hematoma Leucocytosis LIJ thrombus COPD exacerbation CHF Afib s/p fall no evidence of CTH bleeding repeat CBC/coags Periphery this afternoon, report noted Hgb stable presently , making likely hematoma stable thrombocytopenia low fibrinogen ?underlying infection, ID consult appreciated couamdin 5mg INR 2-3 monitor closely supportive care will f/u the rest of the w.u d/w ID, [place], RN challenging clinical scenario d/w daughter in detail about the situation.
--- NOTE | 2017-08-05 13:24 | PN ---
Progress Note, Physician - Current Medication List Current Medications: Active Medications Acetaminophen (Tylenol -) 650 mg PO Q6H PRN PRN Reason: PAIN Last Admin: 08/04/17 22:35 Dose: 650 mg Budesonide (Pulmicort 0.25 Mg Nebulizer -) 1 amp NEB BID [facility] Last Admin: 08/05/17 09:49 Dose: 1 amp Calcium Carbonate (Calcium Carbonate -) 650 mg PO DAILY [facility] Last Admin: 08/05/17 10:11 Dose: 650 mg Digoxin (Lanoxin -) 0.125 mg PO DAILY [facility] Last Admin: 08/05/17 10:10 Dose: 0.125 mg Diltiazem HCl (Cardizem Cd -) 360 mg PO DAILY [facility] Last Admin: 08/05/17 10:10 Dose: 360 mg Furosemide (Lasix -) 40 mg PO DAILY [facility] Last Admin: 08/05/17 10:10 Dose: 40 mg Guaifenesin (Diabetic Tussin Dm -) 5 ml PO Q4H PRN PRN Reason: COUGH Last Admin: 08/04/17 22:35 Dose: 5 ml IV Flush (Triple Lumen Flush) 4 ml IVPUSH PRN PRN PRN Reason: Protocol IV Flush (Picc Line Flush) 8 ml IVPUSH PRN PRN PRN Reason: Protocol Insulin Aspart (Novolog Vial Sliding Scale -) 1 vial SQ ACHS [facility] PRN Reason: Protocol Last Admin: 08/05/17 11:38 Dose: Not Given Insulin Detemir (Levemir Vial) 10 units SQ AM [facility] Last Admin: 08/05/17 06:43 Dose: 10 units Metformin HCl (Glucophage -) 500 mg PO BID@0700,1630 [facility] Last Admin: 08/05/17 06:43 Dose: 500 mg Montelukast Sodium (Singulair -) 10 mg PO HS [facility] Last Admin: 08/04/17 22:33 Dose: 10 mg Nebivolol (Bystolic -) 2.5 mg PO DAILY [facility] Last Admin: 08/05/17 10:11 Dose: 2.5 mg Potassium Chloride (K-Dur -) 20 meq PO DAILY [facility] Last Admin: 08/05/17 10:10 Dose: 20 meq Prednisone (Deltasone -) 40 mg PO BID [facility] Ranitidine HCl (Zantac -) 150 mg PO DAILY [facility] Last Admin: 08/05/17 10:11 Dose: 150 mg Senna (Senna -) 1 tab PO DAILY [facility] Last Admin: 08/05/17 10:11 Dose: 1 tab Warfarin Sodium (Coumadin -) 5 mg PO DAILY@1800 [facility] Last Admin: 08/04/17 17:43 Dose: Not Given - Objective Vital Signs: Vital Signs Temperature 97.9 F 08/05/17 10:00 Pulse Rate 94 H 08/05/17 10:10 Respiratory Rate 20 08/05/17 10:00 Blood Pressure 130/81 08/05/17 10:00 O2 Sat by Pulse Oximetry (%) 100 08/05/17 10:00 Labs: CBC, BMP 08/05/17 06:00 08/02/17 06:25 INR, PTT INR 1.16 (0.82-1.09) H 08/05/17 09:45 Fibrinogen 229.0 mg/dL (238-498) L 08/04/17 19:45 Problem List - Problems (1) Internal jugular vein thrombosis Code(s): I82.C19 - ACUTE EMBOLISM AND THROMBOSIS OF UNSP INTERNAL JUGULAR VEIN (2) Retroperitoneal bleed Code(s): R58 - HEMORRHAGE, NOT ELSEWHERE CLASSIFIED
[2017-08-05] MEDS ORDERED: WARFARIN NA 7.5 MG TABLET (FP) PO SCH (13:25)
--- NOTE | 2017-08-05 15:22 | PN ---
Progress Note (short form) - Note Progress Note: steroids being tapered more SOB today reports yellow sputum no hemoptysis currently off anticoagulation asked to f/u by hematology for progressive drop in platelets and low fibrinogen concern for infection no diarrhea no dysuria Period Temp Pulse Resp BP Sys/Urrutia Pulse Ox Last 24 Hr 97.2 F-97.9 F 86-98 16-18 129-149/63-94 98-98 sternal incision well healed +thrush cor-rrr lungs decreased bs at bases abd soft,nt extensive ecchymoses along the back piccline site right arm nontender CBC, BMP 08/05/17 06:00 08/02/17 06:25 blood cultures pending cxray unchanged- cardiomegaly with left lung mass like density a/p concern for pneumonia/bronchitis- infection as causing the persistent low platelets and fibrinogen- hematoma and hgb now seem stable given ampicillin allergy, will start vancomycin and azactam, will avoid levaquin as she is on coumadin d/w hematology s/p MVR 07/01 Problem List - Problems (1) Acute exacerbation of CHF (congestive heart failure) Code(s): I50.9 - HEART FAILURE, UNSPECIFIED Qualifiers: Congestive heart failure type: diastolic Qualified Code(s): I50.33 - Acute on chronic diastolic (congestive) heart failure; I50.33 - Acute on chronic diastolic (congestive) heart failure; I50.33 - Acute on chronic diastolic (congestive) heart failure; I50.33 - Acute on chronic diastolic ( congestive) heart failure (2) COPD exacerbation Code(s): J44.1 - CHRONIC OBSTRUCTIVE PULMONARY DISEASE W (ACUTE) EXACERBATION (3) S/P MVR (mitral valve replacement) Code(s): Z95.2 - PRESENCE OF PROSTHETIC HEART VALVE
[2017-08-05] MEDS ORDERED: VANCOMYCIN 1 GRAM (PRE-DOCKED) 1,000 MG/250 ML BAG IVPB SCH (15:30)
[2017-08-05 17:36] LABS: MCH 30.7 pg (25.7-33.7); MEAN CELL VOLUME 93.3 fl (80-96); MEAN PLT VOLUME 8.2 fl (7.5-11.1); PLATELET COUNT 43 K/MM3 (134-434); RDW 19.1 % (11.6-15.6); WHITE BLOOD COUNT 14.8 K/mm3 (4.0-10.0)
[2017-08-05] MEDS: AZTREONAM 1 GM in DEXTROSE 5%-WATER - 50 ML IVPB SCH ×2 (17:40→17:47)
[2017-08-05] MEDS: VANCOMYCIN 1,000 MG in DEXTROSE 5%-WATER - 250 ML IVPB SCH (17:40)
[2017-08-05] MEDS ORDERED: WARFARIN NA 5 MG TABLET (UD) PO ONE ×3 (18:00→22:15)
[2017-08-05 18:04] LABS: INR 1.13 (0.82-1.09); PROTHROMBIN TIME (PATIENT) 12.8 SEC (9.98-11.88)
[2017-08-05 18:07] LABS: ACTIVATED PTT 22.9 SECONDS (26.9-34.4)
[2017-08-05] MEDS: NYSTATIN 500,000 UNITS/5 ML SUSPENSION PO SCH (18:26)
[2017-08-05 18:28] LABS: ALBUMIN 2.4 g/dl (3.4-5.0); ALK PHOS 63 U/L (45-117); ANION GAP 10 (8-16); BILIRUBIN,TOTAL 0.8 mg/dL (0.2-1.0); CALCIUM 7.6 mg/dL (8.5-10.1); CO2 28 mmol/L (21-32); CREATININE 0.7 mg/dL (0.55-1.02); GLUCOSE,RANDOM 201 mg/dL (74-106); SGOT/AST 11 U/L (15-37); SGPT/ALT 16 U/L (12-78); TOT PROT 4.6 g/dl (6.4-8.2)
[2017-08-05] MEDS: MONTELUKAST NA 10 MG TABLET PO SCH (22:07)
[2017-08-06] MEDS: NYSTATIN 500,000 UNITS/5 ML SUSPENSION PO SCH ×4 (00:04→17:00)
[2017-08-06] MEDS: AZTREONAM 1 GM in DEXTROSE 5%-WATER - 50 ML IVPB SCH ×3 (01:07→17:00)
[2017-08-06] MEDS: INSULIN SLIDING SCALE (NOVOLOG) 1 VIAL SQ SCH ×4 (06:04→21:28)
[2017-08-06] MEDS: metFORMIN HCL 500 MG TABLET (FP) PO SCH ×2 (06:06→16:47)
[2017-08-06] MEDS: INSULIN DETEMIR 100 UNITS/ML MDV SQ SCH (06:06)
[2017-08-06 07:04] LABS: BASOPHIL 0.3 % (0-2.0); MCH 30.3 pg (25.7-33.7); MCHC 32.1 g/dl (32.0-36.0); MEAN CELL VOLUME 94.5 fl (80-96); MEAN PLT VOLUME 8.1 fl (7.5-11.1); NEUTROPHILS 93.5 % (42.8-82.8); PLATELET COUNT 42 K/MM3 (134-434); RDW 19.5 % (11.6-15.6); WHITE BLOOD COUNT 13.1 K/mm3 (4.0-10.0)
[2017-08-06 07:30] LABS: ALBUMIN 2.7 g/dl (3.4-5.0); ALK PHOS 63 U/L (45-117); ANION GAP 11 (8-16); BILIRUBIN,TOTAL 1.2 mg/dL (0.2-1.0); CALCIUM 7.9 mg/dL (8.5-10.1); CO2 28 mmol/L (21-32); CREATININE 0.5 mg/dL (0.55-1.02); GLUCOSE,RANDOM 152 mg/dL (74-106); SGOT/AST 8 U/L (15-37); SGPT/ALT 16 U/L (12-78); TOT PROT 5.3 g/dl (6.4-8.2)
[2017-08-06 07:44] LABS: INR 1.04 (0.82-1.09); PROTHROMBIN TIME (PATIENT) 11.8 SEC (9.98-11.88)
[2017-08-06 08:08] LABS: HAPTOGLOBIN 105 mg/dL (34-200)
--- NOTE | 2017-08-06 08:40 | PN ---
Progress Note, Physician History of Present Illness: C/O WEAKNESS NO CP FEELS BETTER - Current Medication List Current Medications: Active Medications Acetaminophen (Tylenol -) 650 mg PO Q6H PRN PRN Reason: PAIN Last Admin: 08/04/17 22:35 Dose: 650 mg Budesonide (Pulmicort 0.25 Mg Nebulizer -) 1 amp NEB BID [facility] Last Admin: 08/05/17 22:02 Dose: 1 amp Calcium Carbonate (Calcium Carbonate -) 650 mg PO DAILY [facility] Last Admin: 08/05/17 10:11 Dose: 650 mg Digoxin (Lanoxin -) 0.125 mg PO DAILY [facility] Last Admin: 08/05/17 10:10 Dose: 0.125 mg Diltiazem HCl (Cardizem Cd -) 360 mg PO DAILY [facility] Last Admin: 08/05/17 10:10 Dose: 360 mg Furosemide (Lasix -) 40 mg PO DAILY [facility] Last Admin: 08/05/17 10:10 Dose: 40 mg Guaifenesin (Diabetic Tussin Dm -) 5 ml PO Q4H PRN PRN Reason: COUGH Last Admin: 08/04/17 22:35 Dose: 5 ml IV Flush (Triple Lumen Flush) 4 ml IVPUSH PRN PRN PRN Reason: Protocol IV Flush (Picc Line Flush) 8 ml IVPUSH PRN PRN PRN Reason: Protocol Aztreonam 1 gm/ Dextrose 50 mls @ 100 mls/hr IVPB Q8H-IV BLESSING PRN Reason: Protocol Last Admin: 08/06/17 01:07 Dose: 100 mls/hr Vancomycin HCl 1,000 mg/ (Dextrose) 250 mls @ 166.667 mls/hr IVPB BID [facility] Last Admin: 08/05/17 17:40 Dose: 166.667 mls/hr Insulin Aspart (Novolog Vial Sliding Scale -) 1 vial SQ ACHS [facility] PRN Reason: Protocol Last Admin: 08/06/17 06:04 Dose: Not Given Insulin Detemir (Levemir Vial) 10 units SQ AM [facility] Last Admin: 08/06/17 06:06 Dose: 10 units Metformin HCl (Glucophage -) 500 mg PO BID@0700,1630 [facility] Last Admin: 08/06/17 06:06 Dose: 500 mg Montelukast Sodium (Singulair -) 10 mg PO HS [facility] Last Admin: 08/05/17 22:07 Dose: 10 mg Nebivolol (Bystolic -) 2.5 mg PO DAILY [facility] Last Admin: 08/05/17 10:11 Dose: 2.5 mg Nystatin (Nystatin Oral Suspension -) 500,000 units PO Q6HPO [facility] Last Admin: 08/06/17 06:06 Dose: 500,000 units Potassium Chloride (K-Dur -) 20 meq PO DAILY [facility] Last Admin: 08/05/17 10:10 Dose: 20 meq Prednisone (Deltasone -) 40 mg PO BID [facility] Last Admin: 08/05/17 22:07 Dose: 40 mg Ranitidine HCl (Zantac -) 150 mg PO DAILY [facility] Last Admin: 08/05/17 10:11 Dose: 150 mg Senna (Senna -) 1 tab PO DAILY [facility] Last Admin: 08/05/17 10:11 Dose: 1 tab - Objective Vital Signs: Vital Signs Temperature 98.6 F 08/06/17 06:00 Pulse Rate 84 08/06/17 06:00 Respiratory Rate 20 08/06/17 06:00 Blood Pressure 135/78 08/06/17 06:00 O2 Sat by Pulse Oximetry (%) 100 08/05/17 21:00 Cardiovascular: Yes: S1, S2 Respiratory: Yes: Diminished, Rhonchi Gastrointestinal: Yes: Normal Bowel Sounds, Soft Labs: CBC, BMP 08/06/17 06:40 08/06/17 06:40 INR, PTT INR 1.04 (0.82-1.09) 08/06/17 06:40 Fibrinogen 191.0 mg/dL (238-498) L 08/05/17 17:00 Problem List - Problems (1) Internal jugular vein thrombosis Code(s): I82.C19 - ACUTE EMBOLISM AND THROMBOSIS OF UNSP INTERNAL JUGULAR VEIN (2) Retroperitoneal bleed Code(s): R58 - HEMORRHAGE, NOT ELSEWHERE CLASSIFIED Assessment/Plan - Problems (1) Fall Assessment/Plan: s/p fall ct head negative has left upper abdominal /chest wall hematoma monitor h/h on platelet will monitor for increase in size Code(s): W19.XXXA - UNSPECIFIED FALL, INITIAL ENCOUNTER (2) Internal jugular vein thrombosis Assessment/Plan: off heparin drip thrombocytopenia on couamdin right now heme FU Code(s): I82.C19 - ACUTE EMBOLISM AND THROMBOSIS OF UNSP INTERNAL JUGULAR VEIN (3) S/P MVR (mitral valve replacement) Assessment/Plan: on heparin drip monitor platelet not on couamdin as yet Code(s): Z95.2 - PRESENCE OF PROSTHETIC HEART VALVE (4) CHF (congestive heart failure) Assessment/Plan: on po lasix check cmp today on k dur supplements Code(s): I50.9 - HEART FAILURE, UNSPECIFIED (5) COPD (chronic obstructive pulmonary disease) with chronic bronchitis Assessment/Plan: prednisone taper 30mg po bid chest CT as outpatient bronchodilator mucomyst Code(s): J44.9 - CHRONIC OBSTRUCTIVE PULMONARY DISEASE, UNSPECIFIED (6) Atrial fibrillation Assessment/Plan: permanent afb cardizem off heparin drip on couamdin --MONITOR INR Code(s): I48.91 - UNSPECIFIED ATRIAL FIBRILLATION Qualifiers: Atrial fibrillation type: permanent Qualified Code(s): I48.2 - Chronic atrial fibrillation; I48.2 - Chronic atrial fibrillation; I48.2 - Chronic atrial fibrillation; I48.2 - Chronic atrial fibrillation (7) Hyperglycemia Assessment/Plan: seen by endo metformin and levemir Code(s): R73.9 - HYPERGLYCEMIA, UNSPECIFIED (8) Leukocytosis/Thrombocytopenia Assessment/Plan: seen by HEM ID F/U--R/O INFECTIOUS ETIOLOGY ON ABX
--- NOTE | 2017-08-06 08:55 | PN ---
Progress Note, Physician Chief Complaint: TELE: AF controlled, few pauses all less than 3 seconds ID and Heme input noted - Current Medication List Current Medications: Active Medications Acetaminophen (Tylenol -) 650 mg PO Q6H PRN PRN Reason: PAIN Last Admin: 08/04/17 22:35 Dose: 650 mg Budesonide (Pulmicort 0.25 Mg Nebulizer -) 1 amp NEB BID [facility] Last Admin: 08/05/17 22:02 Dose: 1 amp Calcium Carbonate (Calcium Carbonate -) 650 mg PO DAILY [facility] Last Admin: 08/05/17 10:11 Dose: 650 mg Digoxin (Lanoxin -) 0.125 mg PO DAILY [facility] Last Admin: 08/05/17 10:10 Dose: 0.125 mg Diltiazem HCl (Cardizem Cd -) 360 mg PO DAILY [facility] Last Admin: 08/05/17 10:10 Dose: 360 mg Furosemide (Lasix -) 40 mg PO DAILY [facility] Last Admin: 08/05/17 10:10 Dose: 40 mg Guaifenesin (Diabetic Tussin Dm -) 5 ml PO Q4H PRN PRN Reason: COUGH Last Admin: 08/04/17 22:35 Dose: 5 ml IV Flush (Triple Lumen Flush) 4 ml IVPUSH PRN PRN PRN Reason: Protocol IV Flush (Picc Line Flush) 8 ml IVPUSH PRN PRN PRN Reason: Protocol Aztreonam 1 gm/ Dextrose 50 mls @ 100 mls/hr IVPB Q8H-IV [facility] PRN Reason: Protocol Last Admin: 08/06/17 01:07 Dose: 100 mls/hr Vancomycin HCl 1,000 mg/ (Dextrose) 250 mls @ 166.667 mls/hr IVPB BID [facility] Last Admin: 08/05/17 17:40 Dose: 166.667 mls/hr Insulin Aspart (Novolog Vial Sliding Scale -) 1 vial SQ ACHS [facility] PRN Reason: Protocol Last Admin: 08/06/17 06:04 Dose: Not Given Insulin Detemir (Levemir Vial) 10 units SQ AM [facility] Last Admin: 08/06/17 06:06 Dose: 10 units Metformin HCl (Glucophage -) 500 mg PO BID@0700,1630 [facility] Last Admin: 08/06/17 06:06 Dose: 500 mg Montelukast Sodium (Singulair -) 10 mg PO HS [facility] Last Admin: 08/05/17 22:07 Dose: 10 mg Nebivolol (Bystolic -) 2.5 mg PO DAILY [facility] Last Admin: 08/05/17 10:11 Dose: 2.5 mg Nystatin (Nystatin Oral Suspension -) 500,000 units PO Q6HPO [facility] Last Admin: 08/06/17 06:06 Dose: 500,000 units Potassium Chloride (K-Dur -) 20 meq PO DAILY [facility] Last Admin: 08/05/17 10:10 Dose: 20 meq Prednisone (Deltasone -) 40 mg PO BID [facility] Last Admin: 08/05/17 22:07 Dose: 40 mg Ranitidine HCl (Zantac -) 150 mg PO DAILY [facility] Last Admin: 08/05/17 10:11 Dose: 150 mg Senna (Senna -) 1 tab PO DAILY [facility] Last Admin: 08/05/17 10:11 Dose: 1 tab - Objective Vital Signs: Vital Signs Temperature 98.6 F 08/06/17 06:00 Pulse Rate 84 08/06/17 06:00 Respiratory Rate 20 08/06/17 06:00 Blood Pressure 135/78 08/06/17 06:00 O2 Sat by Pulse Oximetry (%) 100 08/05/17 21:00 Constitutional: Yes: Calm Cardiovascular: Yes: Pulse Irregular Respiratory: Yes: Other (bilateral rhonchi) Gastrointestinal: Yes: Soft, Abdomen, Obese Edema: No Neurological: Yes: Alert, Oriented Labs: CBC, BMP 08/06/17 06:40 08/06/17 06:40 INR, PTT INR 1.04 (0.82-1.09) 08/06/17 06:40 Fibrinogen 191.0 mg/dL (238-498) L 08/05/17 17:00 Microbiology 07/30/17 18:30 Blood - Peripheral Venous Blood Culture - Final NO GROWTH AFTER 5 DAYS INCUBATION 08/04/17 19:45 Blood - Peripheral Venous Blood Culture - Preliminary NO GROWTH OBTAINED AFTER 24 HOURS, INCUBATION TO CONTINUE FOR 4 DAYS. 08/04/17 19:45 Blood - Peripheral Venous Blood Culture - Preliminary NO GROWTH OBTAINED AFTER 24 HOURS, INCUBATION TO CONTINUE FOR 4 DAYS. Laboratory Tests 08/06/17 08/06/17 08/06/17 06:40 06:40 06:40 WBC 13.1 H Hgb 10.1 L D Plt Count 42 L INR 1.04 Potassium 4.4 Creatinine 0.5 L D - ....Imaging EKG: Image Reviewed Assessment/Plan Assessment/Plan Bio MVR AF COPD Abdominal wall hematoma s/p fall Anemia Thrombocytopenia REC: Continuation of AC for AF is limited by falling platelet count, still < 50K. Heart rate remains adequately controlled with average < 100bpm. Abx as per ID. Repeat CXR, ? PTX on prior film- Pulmonary following.
[2017-08-06] MEDS: POTASSIUM CHLORIDE TABS 20 MEQ TABLET.ER (FP) PO SCH (09:51)
[2017-08-06] MEDS: CALCIUM CARBONATE 650 MG TABLET PO SCH (09:52)
[2017-08-06] MEDS: FUROSEMIDE 40 MG TABLET (FP) PO SCH (09:52)
[2017-08-06] MEDS: SENNOSIDES 8.6MG TABLET (FP) PO SCH (09:52)
[2017-08-06] MEDS: predniSONE 20 MG TABLET (UD) PO SCH ×2 (09:52→21:28)
[2017-08-06] MEDS: NEBIVOLOL 2.5 MG TABLET (FP) PO SCH (09:52)
[2017-08-06] MEDS: RANITIDINE HCL 150 MG TABLET (FP) PO SCH (09:52)
[2017-08-06] MEDS: DIGOXIN 0.125 MG TABLET (FP) PO SCH (09:52)
[2017-08-06] MEDS: VANCOMYCIN 1,000 MG in DEXTROSE 5%-WATER - 250 ML IVPB SCH ×2 (09:53→23:25)
[2017-08-06] MEDS: BUDESONIDE 0.25 MG/2ML INH SUSP VIAL NEB SCH ×2 (10:00→22:55)
[2017-08-06] MEDS ORDERED: INSULIN (NOVOLOG) ASPART 100 UNITS/ML 10ML VIAL ONE ×2 (10:54→21:24)
--- NOTE | 2017-08-06 11:43 | PN ---
Progress Note, Physician History of Present Illness: pulmonbary alert,still congested,. pt started on coumadin - Current Medication List Current Medications: Active Medications Acetaminophen (Tylenol -) 650 mg PO Q6H PRN PRN Reason: PAIN Last Admin: 08/04/17 22:35 Dose: 650 mg Budesonide (Pulmicort 0.25 Mg Nebulizer -) 1 amp NEB BID [facility] Last Admin: 08/06/17 10:00 Dose: 1 amp Calcium Carbonate (Calcium Carbonate -) 650 mg PO DAILY [facility] Last Admin: 08/06/17 09:52 Dose: 650 mg Digoxin (Lanoxin -) 0.125 mg PO DAILY [facility] Last Admin: 08/06/17 09:52 Dose: 0.125 mg Diltiazem HCl (Cardizem Cd -) 360 mg PO DAILY [facility] Last Admin: 08/06/17 09:52 Dose: 360 mg Furosemide (Lasix -) 40 mg PO DAILY [facility] Last Admin: 08/06/17 09:52 Dose: 40 mg Guaifenesin (Diabetic Tussin Dm -) 5 ml PO Q4H PRN PRN Reason: COUGH Last Admin: 08/04/17 22:35 Dose: 5 ml IV Flush (Triple Lumen Flush) 4 ml IVPUSH PRN PRN PRN Reason: Protocol IV Flush (Picc Line Flush) 8 ml IVPUSH PRN PRN PRN Reason: Protocol Aztreonam 1 gm/ Dextrose 50 mls @ 100 mls/hr IVPB Q8H-IV [facility]ESS[facility] PRN Reason: Protocol Last Admin: 08/06/17 09:52 Dose: 100 mls/hr Vancomycin HCl 1,000 mg/ (Dextrose) 250 mls @ 166.667 mls/hr IVPB BID [facility] Last Admin: 08/06/17 09:53 Dose: 166.667 mls/hr Insulin Aspart (Novolog Vial Sliding Scale -) 1 vial SQ ACHS [facility] PRN Reason: Protocol Last Admin: 08/06/17 06:04 Dose: Not Given Insulin Detemir (Levemir Vial) 10 units SQ AM [facility] Last Admin: 08/06/17 06:06 Dose: 10 units Metformin HCl (Glucophage -) 500 mg PO BID@0700,1630 [facility] Last Admin: 08/06/17 06:06 Dose: 500 mg Montelukast Sodium (Singulair -) 10 mg PO HS [facility] Last Admin: 08/05/17 22:07 Dose: 10 mg Nebivolol (Bystolic -) 2.5 mg PO DAILY [facility] Last Admin: 08/06/17 09:52 Dose: 2.5 mg Nystatin (Nystatin Oral Suspension -) 500,000 units PO Q6HPO [facility] Last Admin: 08/06/17 06:06 Dose: 500,000 units Potassium Chloride (K-Dur -) 20 meq PO DAILY [facility] Last Admin: 08/06/17 09:51 Dose: 20 meq Prednisone (Deltasone -) 40 mg PO BID [facility] Last Admin: 08/06/17 09:52 Dose: 40 mg Ranitidine HCl (Zantac -) 150 mg PO DAILY [facility] Last Admin: 08/06/17 09:52 Dose: 150 mg Senna (Senna -) 1 tab PO DAILY [facility] Last Admin: 08/06/17 09:52 Dose: 1 tab - Objective Vital Signs: Vital Signs Temperature 98.4 F 08/06/17 10:00 Pulse Rate 98 H 08/06/17 10:00 Respiratory Rate 20 08/06/17 10:00 Blood Pressure 159/97 08/06/17 10:00 O2 Sat by Pulse Oximetry (%) 96 08/06/17 10:00 Constitutional: Yes: Well Nourished, Calm Eyes: Yes: WNL HENT: Yes: WNL Neck: Yes: WNL Cardiovascular: Yes: Pulse Irregular, S1, S2 Respiratory: Yes: Rhonchi, Wheezes (mello wheezes and rhonchi) Gastrointestinal: Yes: Normal Bowel Sounds, Soft Extremities: Yes: WNL Edema: Yes (increased LUE edema) Labs: CBC, BMP 08/06/17 06:40 08/06/17 06:40 INR, PTT INR 1.04 (0.82-1.09) 08/06/17 06:40 Fibrinogen 191.0 mg/dL (238-498) L 08/05/17 17:00 Assessment/Plan IMP COPD /ASTHMA EXACERBATION IMPROVING CHF MVR RECENT/NL CORONARIES PERMANENT AF H/O VTE HTN/PULMONARY HTN LLL OPACITY LIKELY PARTIAL ATELECTASIS LLL LEFT IJ PHLEBITIS ANEMIA THROMBOCYTOPENIA WORSENING HEMATOMA O2 BRONCHODILATORS A/C DIURETICS PREDNISONE 40 BID BRONCHODILATORS CHEST PT MUCOMYST F/U CHEST CT OUTPATIENT IF NO CHANGE LLL CONSOLIDATION CONSIDER BRONCHOSCOPY PULMONARY REHAB POST DISCHARGE MONITOR H+H,PLTS NORMAL TRANSFUSION THRESHOLD HEMATOLOGY F/U REPEAT LUE DUPLEX DR YE Problem List - Problems (1) COPD (chronic obstructive pulmonary disease) with chronic bronchitis Code(s): J44.9 - CHRONIC OBSTRUCTIVE PULMONARY DISEASE, UNSPECIFIED (2) Acute asthma exacerbation Code(s): J45.901 - UNSPECIFIED ASTHMA WITH (ACUTE) EXACERBATION Qualifiers: (3) Anxiety and depression Code(s): F41.9 - ANXIETY DISORDER, UNSPECIFIED F32.9 - MAJOR DEPRESSIVE DISORDER, SINGLE EPISODE, UNSPECIFIED (4) Mitral valve replaced Code(s): Z95.2 - PRESENCE OF PROSTHETIC HEART VALVE
--- NOTE | 2017-08-06 12:55 | PN ---
Progress Note (short form) - Note Progress Note: steroids increased yesterday she fels less sob no diarrhea no dysuria Vital Signs Period Temp Pulse Resp BP Sys/Urrutia Pulse Ox Last 24 Hr 97.5 F-98.6 F 84-101 20-20 123-159/65-97 96-100 cor-rrr lungs decreased bs at bases abd soft,nt ext no edema extensive ecchymoses on her back/flank unchanged +picc line right arm CBC, BMP 08/06/17 06:40 08/06/17 06:40 a/p concern for pneumonia/bronchitis- infection as causing the persistent low platelets and fibrinogen- hematoma and hgb now seem stable given ampicillin allergy, will avoid levaquin as she is on coumadin, day #1 vanco/azactam- d/w hematology s/p MVR 07/01 thrush- on nystatin- asked her to remove her dentures and use swish and swallow vancomycin trough Problem List - Problems (1) Acute exacerbation of CHF (congestive heart failure) Code(s): I50.9 - HEART FAILURE, UNSPECIFIED Qualifiers: Congestive heart failure type: diastolic Qualified Code(s): I50.33 - Acute on chronic diastolic (congestive) heart failure; I50.33 - Acute on chronic diastolic (congestive) heart failure; I50.33 - Acute on chronic diastolic (congestive) heart failure; I50.33 - Acute on chronic diastolic ( congestive) heart failure (2) COPD exacerbation Code(s): J44.1 - CHRONIC OBSTRUCTIVE PULMONARY DISEASE W (ACUTE) EXACERBATION (3) S/P MVR (mitral valve replacement) Code(s): Z95.2 - PRESENCE OF PROSTHETIC HEART VALVE
--- NOTE | 2017-08-06 12:58 | PN ---
Progress Note (short form) - Note Progress Note: Pt seen and examined. feels about the same as yesterday, but may be the cough improved O/E: HEENT: NCAT lungs: CTA b/l abdomen: no tenderness noted, felt softer than yesterday Extremities: No CCE Neuro: AAOx3. Skin: echymosses mild. +swelling Last Vital Signs Temp Pulse Resp BP Pulse Ox 97.7 F 78 20 110/63 97 07/31/17 14:00 07/31/17 14:00 07/31/17 08:46 07/31/17 14:00 07/30/17 21:00 CBC, BMP 07/31/17 05:25 07/31/17 05:25 INR, PTT INR 1.81 (0.82-1.09) H 08/01/17 06:45 Fibrinogen 252.0 mg/dL (238-498) D 07/31/17 05:25 Current Medications Generic Name Dose Route Start Last Admin Trade Name Freq PRN Reason Stop Dose Admin Acetaminophen 650 mg 07/14/17 04:07 07/29/17 22:24 Tylenol - PO 650 mg Q6H PRN Administration PAIN Acetylcysteine 200 mg 07/16/17 18:00 07/31/17 11:40 Mucomyst 20 Oral / Inh Use Only* NEB 200 mg QIDR BLESSING Administration Albuterol Sulfate 1 amp 07/27/17 17:18 07/31/17 11:40 Ventolin 0.083% Nebulizer Soln - NEB 1 amp Q6H PRN Administration SHORT OF BREATH/WHEEZING Aspirin 81 mg 07/12/17 10:00 07/31/17 09:41 Asa - PO Not Given DAILY BLESSING Budesonide 1 amp 07/12/17 11:00 07/31/17 09:45 Pulmicort 0.25 Mg Nebulizer - NEB 1 amp BID BLESSING Administration Calcium Carbonate 650 mg 07/13/17 14:15 07/31/17 09:36 Calcium Carbonate - PO 650 mg DAILY BLESSING Administration Digoxin 0.125 mg 07/24/17 10:00 07/31/17 09:36 Lanoxin - PO 0.125 mg DAILY BLESSING Administration Diltiazem HCl 360 mg 07/20/17 10:00 07/31/17 09:35 Cardizem Cd - PO 360 mg DAILY BLESSING Administration Furosemide 40 mg 07/14/17 10:00 07/31/17 09:36 Lasix - PO 40 mg DAILY BLESSING Administration Guaifenesin 5 ml 07/13/17 09:54 07/28/17 21:41 Diabetic Tussin Dm - PO 5 ml Q4H PRN Administration COUGH Insulin Aspart 1 vial 07/14/17 07:00 07/31/17 11:37 Novolog Vial Sliding Scale - SQ 2 units ACHS BLESSING Administration Protocol Insulin Detemir 10 units 07/17/17 07:00 07/31/17 07:22 Levemir Vial SQ 10 units AM BLESSING Administration Metformin HCl 500 mg 07/21/17 07:00 07/29/17 06:27 Glucophage - PO Not Given BID@0700,1630 [facility] Montelukast Sodium 10 mg 07/22/17 22:00 07/30/17 22:42 Singulair - PO 10 mg HS BLESSING Administration Nebivolol 2.5 mg 07/24/17 10:00 07/31/17 09:41 Bystolic - PO 2.5 mg DAILY BLESSING Administration Potassium Chloride 20 meq 07/12/17 10:00 07/31/17 09:35 K-Dur - PO 20 meq DAILY BLESSING Administration Prednisone 40 mg 07/28/17 22:00 07/31/17 09:35 Deltasone - PO 40 mg BID BLESSING Administration Ranitidine HCl 150 mg 07/12/17 10:00 07/31/17 09:36 Zantac - PO 150 mg DAILY BLESSING Administration Senna 1 tab 07/12/17 10:00 07/31/17 09:36 Senna - PO 1 tab DAILY BLESSING Administration Warfarin Sodium 5 mg 07/27/17 18:00 07/28/17 18:45 Coumadin - PO 5 mg DAILY@1800 BLESSING Administration Assessment/Plan: hematoma. Thrombocytopenia Anemia :stable, no further transfusions LIJ thrombus COPD CHF Afib s/p fall no evidence of CTH bleeding Stable Hgb abx ,appreciate ID consult Platelets stable , not worsening, will continue to closely monitor coumadin , will hold if platelets drop further
[2017-08-06] MEDS ORDERED: PT OWN MED DRAWER 7, Y5N ONE ×2 (16:28→23:23)
[2017-08-06] MEDS ORDERED: WARFARIN NA 5 MG TABLET (UD) PO ONE (18:00)
[2017-08-06] MEDS ORDERED: WARFARIN NA 7.5 MG TABLET (FP) PO ONE (18:30)
[2017-08-06] MEDS: MONTELUKAST NA 10 MG TABLET PO SCH (21:28)
[2017-08-07] MEDS ORDERED: PT OWN MED DRAWER 7, Y5N ONE ×7 (00:11→22:46)
[2017-08-07 00:12] LABS: HEPARIN INDUCED PLATELET AB. 1.31 OD (0.000-0.400)
[2017-08-07] MEDS: NYSTATIN 500,000 UNITS/5 ML SUSPENSION PO SCH ×4 (00:35→17:43)
[2017-08-07] MEDS: AZTREONAM 1 GM in DEXTROSE 5%-WATER - 50 ML IVPB SCH ×3 (02:06→17:42)
[2017-08-07 06:41] LABS: MCH 31.6 pg (25.7-33.7); MCHC 33.5 g/dl (32.0-36.0); MEAN CELL VOLUME 94.5 fl (80-96); MEAN PLT VOLUME 8.1 fl (7.5-11.1); PLATELET COUNT 46 K/MM3 (134-434); RDW 19.6 % (11.6-15.6); WHITE BLOOD COUNT 10.4 K/mm3 (4.0-10.0)
[2017-08-07] MEDS: INSULIN SLIDING SCALE (NOVOLOG) 1 VIAL SQ SCH ×4 (06:49→22:55)
[2017-08-07] MEDS: INSULIN DETEMIR 100 UNITS/ML MDV SQ SCH (06:50)
[2017-08-07] MEDS: metFORMIN HCL 500 MG TABLET (FP) PO SCH ×2 (06:51→17:43)
[2017-08-07 07:09] LABS: INR 1.45 (0.82-1.09); PROTHROMBIN TIME (PATIENT) 16.4 SEC (9.98-11.88)
--- NOTE | 2017-08-07 07:57 | PN ---
Progress Note, Physician History of Present Illness: C/O WEAKNESS NO CP FEELS BETTER - Current Medication List Current Medications: Active Medications Acetaminophen (Tylenol -) 650 mg PO Q6H PRN PRN Reason: PAIN Last Admin: 08/04/17 22:35 Dose: 650 mg Budesonide (Pulmicort 0.25 Mg Nebulizer -) 1 amp NEB BID [facility] Last Admin: 08/06/17 22:55 Dose: 1 amp Calcium Carbonate (Calcium Carbonate -) 650 mg PO DAILY [facility] Last Admin: 08/06/17 09:52 Dose: 650 mg Digoxin (Lanoxin -) 0.125 mg PO DAILY [facility] Last Admin: 08/06/17 09:52 Dose: 0.125 mg Diltiazem HCl (Cardizem Cd -) 360 mg PO DAILY [facility] Last Admin: 08/06/17 09:52 Dose: 360 mg Furosemide (Lasix -) 40 mg PO DAILY [facility] Last Admin: 08/06/17 09:52 Dose: 40 mg Guaifenesin (Diabetic Tussin Dm -) 5 ml PO Q4H PRN PRN Reason: COUGH Last Admin: 08/04/17 22:35 Dose: 5 ml IV Flush (Triple Lumen Flush) 4 ml IVPUSH PRN PRN PRN Reason: Protocol IV Flush (Picc Line Flush) 8 ml IVPUSH PRN PRN PRN Reason: Protocol Aztreonam 1 gm/ Dextrose 50 mls @ 100 mls/hr IVPB Q8H-IV BLESSING PRN Reason: Protocol Last Admin: 08/07/17 02:06 Dose: 100 mls/hr Vancomycin HCl 1,000 mg/ (Dextrose) 250 mls @ 166.667 mls/hr IVPB BID [facility] Last Admin: 08/06/17 23:25 Dose: 166.667 mls/hr Insulin Aspart (Novolog Vial Sliding Scale -) 1 vial SQ ACHS BLESSING PRN Reason: Protocol Last Admin: 08/07/17 06:49 Dose: Not Given Insulin Detemir (Levemir Vial) 10 units SQ AM [facility] Last Admin: 08/07/17 06:50 Dose: 10 units Metformin HCl (Glucophage -) 500 mg PO BID@0700,1630 [facility] Last Admin: 08/07/17 06:51 Dose: 500 mg Montelukast Sodium (Singulair -) 10 mg PO HS [facility] Last Admin: 08/06/17 21:28 Dose: 10 mg Nebivolol (Bystolic -) 2.5 mg PO DAILY [facility] Last Admin: 08/06/17 09:52 Dose: 2.5 mg Nystatin (Nystatin Oral Suspension -) 500,000 units PO Q6HPO [facility] Last Admin: 08/07/17 06:51 Dose: 500,000 units Potassium Chloride (K-Dur -) 20 meq PO DAILY [facility] Last Admin: 08/06/17 09:51 Dose: 20 meq Ranitidine HCl (Zantac -) 150 mg PO DAILY [facility] Last Admin: 08/06/17 09:52 Dose: 150 mg Senna (Senna -) 1 tab PO DAILY [facility] Last Admin: 08/06/17 09:52 Dose: 1 tab - Objective Vital Signs: Vital Signs Temperature 97.8 F 08/07/17 06:25 Pulse Rate 92 H 08/07/17 06:25 Respiratory Rate 20 08/07/17 06:25 Blood Pressure 126/84 08/07/17 06:25 O2 Sat by Pulse Oximetry (%) 99 08/06/17 21:00 Cardiovascular: Yes: S1, S2 Respiratory: Yes: On Nasal O2, Rhonchi Gastrointestinal: Yes: Normal Bowel Sounds, Soft Labs: CBC, BMP 08/07/17 06:15 08/06/17 06:40 INR, PTT INR 1.45 (0.82-1.09) H D 08/07/17 06:15 Fibrinogen 191.0 mg/dL (238-498) L 08/05/17 17:00 Problem List - Problems (1) Internal jugular vein thrombosis Code(s): I82.C19 - ACUTE EMBOLISM AND THROMBOSIS OF UNSP INTERNAL JUGULAR VEIN (2) Retroperitoneal bleed Code(s): R58 - HEMORRHAGE, NOT ELSEWHERE CLASSIFIED Assessment/Plan - Problems (1) Fall Assessment/Plan: s/p fall ct head negative has left upper abdominal /chest wall hematoma monitor h/h on platelet will monitor for increase in size Code(s): W19.XXXA - UNSPECIFIED FALL, INITIAL ENCOUNTER (2) Internal jugular vein thrombosis Assessment/Plan: off heparin drip thrombocytopenia on couamdin right now heme FU Code(s): I82.C19 - ACUTE EMBOLISM AND THROMBOSIS OF UNSP INTERNAL JUGULAR VEIN (3) S/P MVR (mitral valve replacement) Assessment/Plan: on heparin drip monitor platelet not on couamdin as yet Code(s): Z95.2 - PRESENCE OF PROSTHETIC HEART VALVE (4) CHF (congestive heart failure) Assessment/Plan: on po lasix check cmp today on k dur supplements Code(s): I50.9 - HEART FAILURE, UNSPECIFIED (5) COPD (chronic obstructive pulmonary disease) with chronic bronchitis Assessment/Plan: prednisone taper 30mg po bid chest CT as outpatient bronchodilator mucomyst Code(s): J44.9 - CHRONIC OBSTRUCTIVE PULMONARY DISEASE, UNSPECIFIED (6) Atrial fibrillation Assessment/Plan: permanent afb cardizem off heparin drip on couamdin --MONITOR INR Code(s): I48.91 - UNSPECIFIED ATRIAL FIBRILLATION Qualifiers: Atrial fibrillation type: permanent Qualified Code(s): I48.2 - Chronic atrial fibrillation; I48.2 - Chronic atrial fibrillation; I48.2 - Chronic atrial fibrillation; I48.2 - Chronic atrial fibrillation (7) Hyperglycemia Assessment/Plan: seen by endo metformin and levemir Code(s): R73.9 - HYPERGLYCEMIA, UNSPECIFIED (8) Leukocytosis/Thrombocytopenia Assessment/Plan: seen by HEM ID F/U--R/O INFECTIOUS ETIOLOGY ON ABX
[2017-08-07] MEDS: DIGOXIN 0.125 MG TABLET (FP) PO SCH (09:46)
[2017-08-07] MEDS: SENNOSIDES 8.6MG TABLET (FP) PO SCH (09:46)
[2017-08-07] MEDS: POTASSIUM CHLORIDE TABS 20 MEQ TABLET.ER (FP) PO SCH (09:46)
[2017-08-07] MEDS: predniSONE 10 MG TABLET (UD) PO SCH ×2 (09:46→22:55)
[2017-08-07] MEDS: CALCIUM CARBONATE 650 MG TABLET PO SCH (09:46)
[2017-08-07] MEDS: RANITIDINE HCL 150 MG TABLET (FP) PO SCH (09:46)
[2017-08-07] MEDS: FUROSEMIDE 40 MG TABLET (FP) PO SCH (09:47)
[2017-08-07] MEDS: BUDESONIDE 0.25 MG/2ML INH SUSP VIAL NEB SCH ×2 (10:30→22:20)
[2017-08-07] MEDS: VANCOMYCIN 1,000 MG in DEXTROSE 5%-WATER - 250 ML IVPB SCH ×2 (10:40→23:00)
--- NOTE | 2017-08-07 11:40 | PN ---
Progress Note, Physician History of Present Illness: pulmonary alert,less congestion. - Current Medication List Current Medications: Active Medications Acetaminophen (Tylenol -) 650 mg PO Q6H PRN PRN Reason: PAIN Last Admin: 08/04/17 22:35 Dose: 650 mg Budesonide (Pulmicort 0.25 Mg Nebulizer -) 1 amp NEB BID [facility] Last Admin: 08/06/17 22:55 Dose: 1 amp Calcium Carbonate (Calcium Carbonate -) 650 mg PO DAILY [facility] Last Admin: 08/07/17 09:46 Dose: 650 mg Digoxin (Lanoxin -) 0.125 mg PO DAILY [facility] Last Admin: 08/07/17 09:46 Dose: 0.125 mg Diltiazem HCl (Cardizem Cd -) 360 mg PO DAILY [facility] Last Admin: 08/07/17 09:46 Dose: 360 mg Furosemide (Lasix -) 40 mg PO DAILY [facility] Last Admin: 08/07/17 09:47 Dose: 40 mg Guaifenesin (Diabetic Tussin Dm -) 5 ml PO Q4H PRN PRN Reason: COUGH Last Admin: 08/04/17 22:35 Dose: 5 ml IV Flush (Triple Lumen Flush) 4 ml IVPUSH PRN PRN PRN Reason: Protocol IV Flush (Picc Line Flush) 8 ml IVPUSH PRN PRN PRN Reason: Protocol Aztreonam 1 gm/ Dextrose 50 mls @ 100 mls/hr IVPB Q8H-IV BLESSING PRN Reason: Protocol Last Admin: 08/07/17 09:45 Dose: 100 mls/hr Vancomycin HCl 1,000 mg/ (Dextrose) 250 mls @ 166.667 mls/hr IVPB BID [facility] Last Admin: 08/07/17 10:40 Dose: 166.667 mls/hr Insulin Aspart (Novolog Vial Sliding Scale -) 1 vial SQ ACHS BLESSING PRN Reason: Protocol Last Admin: 08/07/17 06:49 Dose: Not Given Insulin Detemir (Levemir Vial) 10 units SQ AM [facility] Last Admin: 08/07/17 06:50 Dose: 10 units Metformin HCl (Glucophage -) 500 mg PO BID@0700,1630 [facility] Last Admin: 08/07/17 06:51 Dose: 500 mg Montelukast Sodium (Singulair -) 10 mg PO HS [facility] Last Admin: 08/06/17 21:28 Dose: 10 mg Nebivolol (Bystolic -) 2.5 mg PO DAILY [facility] Last Admin: 08/06/17 09:52 Dose: 2.5 mg Nystatin (Nystatin Oral Suspension -) 500,000 units PO Q6HPO [facility] Last Admin: 08/07/17 06:51 Dose: 500,000 units Potassium Chloride (K-Dur -) 20 meq PO DAILY [facility] Last Admin: 08/07/17 09:46 Dose: 20 meq Prednisone (Deltasone -) 30 mg PO BID [facility] Last Admin: 08/07/17 09:46 Dose: 30 mg Ranitidine HCl (Zantac -) 150 mg PO DAILY [facility] Last Admin: 08/07/17 09:46 Dose: 150 mg Senna (Senna -) 1 tab PO DAILY [facility] Last Admin: 08/07/17 09:46 Dose: 1 tab Warfarin Sodium (Coumadin -) 7.5 mg PO DAILY@1800 [facility] - Objective Vital Signs: Vital Signs Temperature 97.8 F 08/07/17 06:25 Pulse Rate 93 H 08/07/17 09:46 Respiratory Rate 20 08/07/17 06:25 Blood Pressure 126/84 08/07/17 06:25 O2 Sat by Pulse Oximetry (%) 99 08/06/17 21:00 Constitutional: Yes: Well Nourished, Calm Eyes: Yes: WNL HENT: Yes: WNL Neck: Yes: WNL Cardiovascular: Yes: Pulse Irregular, S1, S2 Respiratory: Yes: Wheezes (less wheezes mello) Gastrointestinal: Yes: Normal Bowel Sounds, Soft Extremities: Yes: WNL Edema: No Labs: CBC, BMP 08/07/17 06:15 08/06/17 06:40 INR, PTT INR 1.45 (0.82-1.09) H D 08/07/17 06:15 Fibrinogen 191.0 mg/dL (238-498) L 08/05/17 17:00 Assessment/Plan IMP COPD /ASTHMA EXACERBATION IMPROVING CHF MVR RECENT/NL CORONARIES PERMANENT AF H/O VTE HTN/PULMONARY HTN LLL OPACITY LIKELY PARTIAL ATELECTASIS LLL LEFT IJ PHLEBITIS ANEMIA THROMBOCYTOPENIA WORSENING HEMATOMA O2 BRONCHODILATORS A/C DIURETICS PREDNISONE 40 BID BRONCHODILATORS CHEST PT MUCOMYST F/U CHEST CT OUTPATIENT IF NO CHANGE LLL CONSOLIDATION CONSIDER BRONCHOSCOPY PULMONARY REHAB POST DISCHARGE MONITOR H+H,PLTS NORMAL TRANSFUSION THRESHOLD VASCULAR F/U DR YE Problem List - Problems (1) COPD (chronic obstructive pulmonary disease) with chronic bronchitis Code(s): J44.9 - CHRONIC OBSTRUCTIVE PULMONARY DISEASE, UNSPECIFIED (2) Acute asthma exacerbation Code(s): J45.901 - UNSPECIFIED ASTHMA WITH (ACUTE) EXACERBATION Qualifiers: (3) Anxiety and depression Code(s): F41.9 - ANXIETY DISORDER, UNSPECIFIED F32.9 - MAJOR DEPRESSIVE DISORDER, SINGLE EPISODE, UNSPECIFIED (4) Mitral valve replaced Code(s): Z95.2 - PRESENCE OF PROSTHETIC HEART VALVE
--- NOTE | 2017-08-07 12:18 | PN ---
Progress Note, Physician History of Present Illness: seen and examined today in nad. states she is feeling a little bit better. states her sob is slightly better. - Current Medication List Current Medications: Active Medications Acetaminophen (Tylenol -) 650 mg PO Q6H PRN PRN Reason: PAIN Last Admin: 08/04/17 22:35 Dose: 650 mg Budesonide (Pulmicort 0.25 Mg Nebulizer -) 1 amp NEB BID [facility] Last Admin: 08/06/17 22:55 Dose: 1 amp Calcium Carbonate (Calcium Carbonate -) 650 mg PO DAILY [facility] Last Admin: 08/07/17 09:46 Dose: 650 mg Digoxin (Lanoxin -) 0.125 mg PO DAILY [facility] Last Admin: 08/07/17 09:46 Dose: 0.125 mg Diltiazem HCl (Cardizem Cd -) 360 mg PO DAILY [facility] Last Admin: 08/07/17 09:46 Dose: 360 mg Furosemide (Lasix -) 40 mg PO DAILY [facility] Last Admin: 08/07/17 09:47 Dose: 40 mg Guaifenesin (Diabetic Tussin Dm -) 5 ml PO Q4H PRN PRN Reason: COUGH Last Admin: 08/04/17 22:35 Dose: 5 ml IV Flush (Triple Lumen Flush) 4 ml IVPUSH PRN PRN PRN Reason: Protocol IV Flush (Picc Line Flush) 8 ml IVPUSH PRN PRN PRN Reason: Protocol Aztreonam 1 gm/ Dextrose 50 mls @ 100 mls/hr IVPB Q8H-IV BLESSING PRN Reason: Protocol Last Admin: 08/07/17 09:45 Dose: 100 mls/hr Vancomycin HCl 1,000 mg/ (Dextrose) 250 mls @ 166.667 mls/hr IVPB BID [facility] Last Admin: 08/07/17 10:40 Dose: 166.667 mls/hr Insulin Aspart (Novolog Vial Sliding Scale -) 1 vial SQ ACHS BLESSING PRN Reason: Protocol Last Admin: 08/07/17 06:49 Dose: Not Given Insulin Detemir (Levemir Vial) 10 units SQ AM [facility] Last Admin: 08/07/17 06:50 Dose: 10 units Metformin HCl (Glucophage -) 500 mg PO BID@0700,1630 [facility] Last Admin: 08/07/17 06:51 Dose: 500 mg Montelukast Sodium (Singulair -) 10 mg PO HS [facility] Last Admin: 08/06/17 21:28 Dose: 10 mg Nebivolol (Bystolic -) 2.5 mg PO DAILY [facility] Last Admin: 08/06/17 09:52 Dose: 2.5 mg Nystatin (Nystatin Oral Suspension -) 500,000 units PO Q6HPO [facility] Last Admin: 08/07/17 06:51 Dose: 500,000 units Potassium Chloride (K-Dur -) 20 meq PO DAILY [facility] Last Admin: 08/07/17 09:46 Dose: 20 meq Prednisone (Deltasone -) 30 mg PO BID [facility] Last Admin: 08/07/17 09:46 Dose: 30 mg Ranitidine HCl (Zantac -) 150 mg PO DAILY [facility] Last Admin: 08/07/17 09:46 Dose: 150 mg Senna (Senna -) 1 tab PO DAILY [facility] Last Admin: 08/07/17 09:46 Dose: 1 tab Warfarin Sodium (Coumadin -) 7.5 mg PO DAILY@1800 [facility] - Objective Vital Signs: Vital Signs Temperature 97.8 F 08/07/17 06:25 Pulse Rate 93 H 08/07/17 09:46 Respiratory Rate 20 08/07/17 06:25 Blood Pressure 126/84 08/07/17 06:25 O2 Sat by Pulse Oximetry (%) 99 08/06/17 21:00 Constitutional: Yes: No Distress, Calm, Obese Eyes: Yes: Conjunctiva Clear, EOM Intact, PERRL HENT: Yes: Atraumatic, Normocephalic Neck: Yes: Supple, Trachea Midline Cardiovascular: Yes: Pulse Irregular, Murmur, S1, S2. No: Regular Rate and Rhythm, Bradycardia, Tachycardia, Bruit, JVD, Gallop, Rub, S3, S4, Varicosities Respiratory: Yes: Regular, Diminished, On Nasal O2, Rhonchi. No: Rales, SOB, Wheezes Gastrointestinal: Yes: Normal Bowel Sounds, Soft. No: Distention, Tenderness Musculoskeletal: Yes: Other (large ecchymoses L flank) Extremities: Yes: WNL Edema: No Peripheral Pulses WNL: Yes Peripheral Pulses: Left Doralis Pedis: 2+, Right Dorsalis Pedis: 2+ Neurological: Yes: Alert, Oriented Psychiatric: Yes: Alert, Oriented Labs: CBC, BMP 08/07/17 06:15 08/06/17 06:40 INR, PTT INR 1.45 (0.82-1.09) H D 08/07/17 06:15 Fibrinogen 191.0 mg/dL (238-498) L 08/05/17 17:00 - ....Imaging Chest X-ray: Report Reviewed, Image Reviewed EKG: Report Reviewed, Image Reviewed Other: Report Reviewed, Image Reviewed (tele-AFib, HR adequately controlled) Assessment/Plan Bio MVR 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 COPD Abdominal wall hematoma s/p fall Anemia Thrombocytopenia REC: Coumadin resumed, to be held if platelet count drops, plts stable today HR adequately controlled, cont cardizem and digoxin Overall euvolemic, cont Lasix 40mg po daily Abx as per ID. Pulmonary following.
[2017-08-07] MEDS: NEBIVOLOL 2.5 MG TABLET (FP) PO SCH (12:34)
--- NOTE | 2017-08-07 17:15 | PN ---
Progress Note (short form) - Note Progress Note: Vascular surgery US of upper ext reviewed. Pt last seen on 07/16 for left basilic vein svt, and IJ thrombus. Recent fall had ac on hold. New US shows left IJ and axillary vein thrombus. Pt's coumdin restarted. Pt needs AC for DVT in axillary vein. AC for needed for valve as well. Wiley branch DO
[2017-08-07] MEDS ORDERED: WARFARIN NA 7.5 MG TABLET (FP) PO SCH (18:00)
--- NOTE | 2017-08-07 22:38 | PN ---
Progress Note (short form) - Note Progress Note: Patient seen and examined Denies any complaints AFVSS Cor: RSR, No murmurs, No gallops Lungs: Clear to P&A Abd: Soft, Normal bowel sounds, Large Lt. 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 flank hematoma, s/p fall Hemoglobin stable. Do not suspect active bleeding thrombocytopenia --- timing coincides with fall/hematoma ? consumption from hematoma Unlikely HIT given time frame and lack of heparin exposure until 08/03--- suspect false + hit. will await serotonin release assay on empric antibiotics Lt. ij and axillary thrombus--worsened on coumadin monitor INR
[2017-08-07] MEDS: MONTELUKAST NA 10 MG TABLET PO SCH (22:55)
[2017-08-08] MEDS: NYSTATIN 500,000 UNITS/5 ML SUSPENSION PO SCH ×5 (00:55→23:32)
[2017-08-08] MEDS ORDERED: PT OWN MED DRAWER 7, Y5N ONE ×5 (01:56→22:38)
[2017-08-08] MEDS: AZTREONAM 1 GM in DEXTROSE 5%-WATER - 50 ML IVPB SCH ×3 (02:16→17:32)
[2017-08-08] MEDS: INSULIN SLIDING SCALE (NOVOLOG) 1 VIAL SQ SCH ×4 (06:19→22:43)
[2017-08-08] MEDS: metFORMIN HCL 500 MG TABLET (FP) PO SCH ×2 (06:20→17:33)
[2017-08-08] MEDS: INSULIN DETEMIR 100 UNITS/ML MDV SQ SCH (06:21)
[2017-08-08 07:47] LABS: BASOPHIL 0.2 % (0-2.0); EOSINOPHIL 0.1 % (0-4.5); MEAN PLT VOLUME 9.1 fl (7.5-11.1); NEUTROPHILS 92.9 % (42.8-82.8); PLATELET COUNT 51 K/MM3 (134-434); RDW 19.4 % (11.6-15.6); WHITE BLOOD COUNT 9.3 K/mm3 (4.0-10.0)
[2017-08-08 07:56] LABS: INR 2.53 (0.82-1.09); PROTHROMBIN TIME (PATIENT) 28.6 SEC (9.98-11.88)
[2017-08-08 08:25] LABS: ALBUMIN 2.2 g/dl (3.4-5.0); ALK PHOS 53 U/L (45-117); ANION GAP 7 (8-16); BILIRUBIN,TOTAL 0.7 mg/dL (0.2-1.0); CALCIUM 7.1 mg/dL (8.5-10.1); CO2 30 mmol/L (21-32); CREATININE 0.5 mg/dL (0.55-1.02); GLUCOSE,RANDOM 150 mg/dL (74-106); SGOT/AST 7 U/L (15-37); SGPT/ALT 12 U/L (12-78); TOT PROT 4.4 g/dl (6.4-8.2)
--- NOTE | 2017-08-08 08:36 | PN ---
Progress Note, Physician History of Present Illness: C/O WEAKNESS NO CP FEELS BETTER - Current Medication List Current Medications: Active Medications Acetaminophen (Tylenol -) 650 mg PO Q6H PRN PRN Reason: PAIN Last Admin: 08/04/17 22:35 Dose: 650 mg Budesonide (Pulmicort 0.25 Mg Nebulizer -) 1 amp NEB BID [facility] Last Admin: 08/07/17 22:20 Dose: 1 amp Calcium Carbonate (Calcium Carbonate -) 650 mg PO DAILY [facility] Last Admin: 08/07/17 09:46 Dose: 650 mg Digoxin (Lanoxin -) 0.125 mg PO DAILY [facility] Last Admin: 08/07/17 09:46 Dose: 0.125 mg Diltiazem HCl (Cardizem Cd -) 360 mg PO DAILY [facility] Last Admin: 08/07/17 09:46 Dose: 360 mg Furosemide (Lasix -) 40 mg PO DAILY [facility] Last Admin: 08/07/17 09:47 Dose: 40 mg Guaifenesin (Diabetic Tussin Dm -) 5 ml PO Q4H PRN PRN Reason: COUGH Last Admin: 08/04/17 22:35 Dose: 5 ml IV Flush (Triple Lumen Flush) 4 ml IVPUSH PRN PRN PRN Reason: Protocol IV Flush (Picc Line Flush) 8 ml IVPUSH PRN PRN PRN Reason: Protocol Aztreonam 1 gm/ Dextrose 50 mls @ 100 mls/hr IVPB Q8H-IV BLESSING PRN Reason: Protocol Last Admin: 08/08/17 02:16 Dose: 100 mls/hr Vancomycin HCl 1,000 mg/ (Dextrose) 250 mls @ 166.667 mls/hr IVPB BID [facility] Last Admin: 08/07/17 23:00 Dose: 166.667 mls/hr Insulin Aspart (Novolog Vial Sliding Scale -) 1 vial SQ ACHS BLESSING PRN Reason: Protocol Last Admin: 08/08/17 06:19 Dose: Not Given Insulin Detemir (Levemir Vial) 10 units SQ AM [facility] Last Admin: 08/08/17 06:21 Dose: 10 units Metformin HCl (Glucophage -) 500 mg PO BID@0700,1630 [facility] Last Admin: 08/08/17 06:20 Dose: 500 mg Montelukast Sodium (Singulair -) 10 mg PO HS [facility] Last Admin: 08/07/17 22:55 Dose: 10 mg Nebivolol (Bystolic -) 2.5 mg PO DAILY [facility] Last Admin: 08/07/17 12:34 Dose: 2.5 mg Nystatin (Nystatin Oral Suspension -) 500,000 units PO Q6HPO [facility] Last Admin: 08/08/17 06:20 Dose: 500,000 units Potassium Chloride (K-Dur -) 20 meq PO DAILY [facility] Last Admin: 08/07/17 09:46 Dose: 20 meq Prednisone (Deltasone -) 30 mg PO BID [facility] Last Admin: 08/07/17 22:55 Dose: 30 mg Ranitidine HCl (Zantac -) 150 mg PO DAILY [facility] Last Admin: 08/07/17 09:46 Dose: 150 mg Senna (Senna -) 1 tab PO DAILY [facility] Last Admin: 08/07/17 09:46 Dose: 1 tab Warfarin Sodium (Coumadin -) 5 mg PO DAILY@1800 [facility] - Objective Vital Signs: Vital Signs Temperature 97.7 F 08/08/17 06:00 Pulse Rate 85 08/08/17 06:00 Respiratory Rate 19 08/08/17 06:00 Blood Pressure 139/62 08/08/17 06:00 O2 Sat by Pulse Oximetry (%) 100 08/07/17 21:00 Cardiovascular: Yes: S1, S2 Respiratory: Yes: Rhonchi Gastrointestinal: Yes: Normal Bowel Sounds, Soft Labs: CBC, BMP 08/08/17 06:00 08/08/17 06:00 INR, PTT INR 2.53 (0.82-1.09) H D 08/08/17 06:00 Fibrinogen 191.0 mg/dL (238-498) L 08/05/17 17:00 Problem List - Problems (1) Internal jugular vein thrombosis Code(s): I82.C19 - ACUTE EMBOLISM AND THROMBOSIS OF UNSP INTERNAL JUGULAR VEIN (2) Retroperitoneal bleed Code(s): R58 - HEMORRHAGE, NOT ELSEWHERE CLASSIFIED Assessment/Plan - Problems (1) Fall Assessment/Plan: s/p fall ct head negative has left upper abdominal /chest wall hematoma monitor h/h on platelet will monitor for increase in size Code(s): W19.XXXA - UNSPECIFIED FALL, INITIAL ENCOUNTER (2) Internal jugular vein thrombosis Assessment/Plan: off heparin drip thrombocytopenia on couamdin right now heme FU surgical follow up Code(s): I82.C19 - ACUTE EMBOLISM AND THROMBOSIS OF UNSP INTERNAL JUGULAR VEIN (3) S/P MVR (mitral valve replacement) Assessment/Plan: monitor platelet on couamdin Code(s): Z95.2 - PRESENCE OF PROSTHETIC HEART VALVE (4) CHF (congestive heart failure) Assessment/Plan: on po lasix check cmp today on k dur supplements Code(s): I50.9 - HEART FAILURE, UNSPECIFIED (5) COPD (chronic obstructive pulmonary disease) with chronic bronchitis Assessment/Plan: prednisone taper 20mg po bid chest CT as outpatient bronchodilator mucomyst Code(s): J44.9 - CHRONIC OBSTRUCTIVE PULMONARY DISEASE, UNSPECIFIED (6) Atrial fibrillation Assessment/Plan: permanent afb cardizem off heparin drip on couamdin --MONITOR INR Code(s): I48.91 - UNSPECIFIED ATRIAL FIBRILLATION Qualifiers: Atrial fibrillation type: permanent Qualified Code(s): I48.2 - Chronic atrial fibrillation; I48.2 - Chronic atrial fibrillation; I48.2 - Chronic atrial fibrillation; I48.2 - Chronic atrial fibrillation (7) Hyperglycemia Assessment/Plan: seen by endo metformin and levemir Code(s): R73.9 - HYPERGLYCEMIA, UNSPECIFIED (8) Leukocytosis/Thrombocytopenia Assessment/Plan: seen by HEM ID F/U--R/O INFECTIOUS ETIOLOGY ON ABX
--- NOTE | 2017-08-08 08:57 | PN ---
Progress Note, Physician History of Present Illness: seen and examined today in nad. states her sob is again improved today. no overnight events. small amount of blood with bm this am. - Current Medication List Current Medications: Active Medications Acetaminophen (Tylenol -) 650 mg PO Q6H PRN PRN Reason: PAIN Last Admin: 08/04/17 22:35 Dose: 650 mg Budesonide (Pulmicort 0.25 Mg Nebulizer -) 1 amp NEB BID [facility] Last Admin: 08/07/17 22:20 Dose: 1 amp Calcium Carbonate (Calcium Carbonate -) 650 mg PO DAILY [facility] Last Admin: 08/07/17 09:46 Dose: 650 mg Digoxin (Lanoxin -) 0.125 mg PO DAILY [facility] Last Admin: 08/07/17 09:46 Dose: 0.125 mg Diltiazem HCl (Cardizem Cd -) 360 mg PO DAILY [facility] Last Admin: 08/07/17 09:46 Dose: 360 mg Furosemide (Lasix -) 40 mg PO DAILY [facility] Last Admin: 08/07/17 09:47 Dose: 40 mg Guaifenesin (Diabetic Tussin Dm -) 5 ml PO Q4H PRN PRN Reason: COUGH Last Admin: 08/04/17 22:35 Dose: 5 ml IV Flush (Triple Lumen Flush) 4 ml IVPUSH PRN PRN PRN Reason: Protocol IV Flush (Picc Line Flush) 8 ml IVPUSH PRN PRN PRN Reason: Protocol Aztreonam 1 gm/ Dextrose 50 mls @ 100 mls/hr IVPB Q8H-IV BLESSING PRN Reason: Protocol Last Admin: 08/08/17 02:16 Dose: 100 mls/hr Vancomycin HCl 1,000 mg/ (Dextrose) 250 mls @ 166.667 mls/hr IVPB BID [facility] Last Admin: 08/07/17 23:00 Dose: 166.667 mls/hr Insulin Aspart (Novolog Vial Sliding Scale -) 1 vial SQ ACHS [facility]ESS[facility] PRN Reason: Protocol Last Admin: 08/08/17 06:19 Dose: Not Given Insulin Detemir (Levemir Vial) 10 units SQ AM [facility] Last Admin: 08/08/17 06:21 Dose: 10 units Metformin HCl (Glucophage -) 500 mg PO BID@0700,1630 [facility] Last Admin: 08/08/17 06:20 Dose: 500 mg Montelukast Sodium (Singulair -) 10 mg PO HS [facility] Last Admin: 08/07/17 22:55 Dose: 10 mg Nebivolol (Bystolic -) 2.5 mg PO DAILY [facility] Last Admin: 08/07/17 12:34 Dose: 2.5 mg Nystatin (Nystatin Oral Suspension -) 500,000 units PO Q6HPO [facility] Last Admin: 08/08/17 06:20 Dose: 500,000 units Potassium Chloride (K-Dur -) 20 meq PO DAILY [facility] Last Admin: 08/07/17 09:46 Dose: 20 meq Prednisone (Deltasone -) 30 mg PO BID [facility] Last Admin: 08/07/17 22:55 Dose: 30 mg Ranitidine HCl (Zantac -) 150 mg PO DAILY [facility] Last Admin: 08/07/17 09:46 Dose: 150 mg Senna (Senna -) 1 tab PO DAILY [facility] Last Admin: 08/07/17 09:46 Dose: 1 tab Warfarin Sodium (Coumadin -) 5 mg PO DAILY@1800 [facility] - Objective Vital Signs: Vital Signs Temperature 97.7 F 08/08/17 06:00 Pulse Rate 85 08/08/17 06:00 Respiratory Rate 19 08/08/17 06:00 Blood Pressure 139/62 08/08/17 06:00 O2 Sat by Pulse Oximetry (%) 100 08/07/17 21:00 Constitutional: Yes: No Distress, Calm Eyes: Yes: Conjunctiva Clear, EOM Intact, PERRL HENT: Yes: Atraumatic, Normocephalic Neck: Yes: Supple, Trachea Midline Cardiovascular: Yes: Pulse Irregular, Murmur, S1, S2. No: Regular Rate and Rhythm, Bradycardia, Tachycardia, Bruit, JVD, Gallop, Rub, S3, S4, Varicosities Respiratory: Yes: Regular, Diminished, Rhonchi. No: Rales, SOB, Wheezes Gastrointestinal: Yes: Normal Bowel Sounds, Soft. No: Distention, Tenderness Musculoskeletal: Yes: Other (ecchymosis L flank) Extremities: Yes: WNL Edema: No Peripheral Pulses WNL: Yes Peripheral Pulses: Left Doralis Pedis: 2+, Right Dorsalis Pedis: 2+ Neurological: Yes: Alert, Oriented Psychiatric: Yes: Alert, Oriented Labs: CBC, BMP 08/08/17 06:00 08/08/17 06:00 INR, PTT INR 2.53 (0.82-1.09) H D 08/08/17 06:00 Fibrinogen 191.0 mg/dL (238-498) L 08/05/17 17:00 - ....Imaging Chest X-ray: Report Reviewed, Image Reviewed EKG: Report Reviewed, Image Reviewed Other: Report Reviewed, Image Reviewed (tele-Afib, HR adequately controlled) Assessment/Plan Bio 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 Pulmonary following. Hematology following
[2017-08-08] MEDS: VANCOMYCIN 1,000 MG in DEXTROSE 5%-WATER - 250 ML IVPB SCH ×2 (09:49→22:52)
[2017-08-08] MEDS: NEBIVOLOL 2.5 MG TABLET (FP) PO SCH (09:49)
[2017-08-08] MEDS: FUROSEMIDE 40 MG TABLET (FP) PO SCH (09:50)
[2017-08-08] MEDS: RANITIDINE HCL 150 MG TABLET (FP) PO SCH (09:50)
[2017-08-08] MEDS: predniSONE 10 MG TABLET (UD) PO SCH (09:50)
[2017-08-08] MEDS: CALCIUM CARBONATE 650 MG TABLET PO SCH (09:53)
[2017-08-08] MEDS: POTASSIUM CHLORIDE TABS 20 MEQ TABLET.ER (FP) PO SCH (09:53)
[2017-08-08] MEDS: SENNOSIDES 8.6MG TABLET (FP) PO SCH (09:53)
[2017-08-08] MEDS: DIGOXIN 0.125 MG TABLET (FP) PO SCH (09:53)
[2017-08-08] MEDS: BUDESONIDE 0.25 MG/2ML INH SUSP VIAL NEB SCH ×3 (10:30→22:00)
--- NOTE | 2017-08-08 11:30 | PN ---
Progress Note, Physician History of Present Illness: PULMONARY ALERT,LESS CONGESTED,-RESP DISTRESS - Current Medication List Current Medications: Active Medications Acetaminophen (Tylenol -) 650 mg PO Q6H PRN PRN Reason: PAIN Last Admin: 08/04/17 22:35 Dose: 650 mg Budesonide (Pulmicort 0.25 Mg Nebulizer -) 1 amp NEB BID [facility] Last Admin: 08/08/17 10:50 Dose: 1 amp Calcium Carbonate (Calcium Carbonate -) 650 mg PO DAILY [facility] Last Admin: 08/08/17 09:53 Dose: 650 mg Digoxin (Lanoxin -) 0.125 mg PO DAILY [facility] Last Admin: 08/08/17 09:53 Dose: 0.125 mg Diltiazem HCl (Cardizem Cd -) 360 mg PO DAILY [facility] Last Admin: 08/08/17 09:50 Dose: 360 mg Furosemide (Lasix -) 40 mg PO DAILY [facility] Last Admin: 08/08/17 09:50 Dose: 40 mg Guaifenesin (Diabetic Tussin Dm -) 5 ml PO Q4H PRN PRN Reason: COUGH Last Admin: 08/04/17 22:35 Dose: 5 ml IV Flush (Triple Lumen Flush) 4 ml IVPUSH PRN PRN PRN Reason: Protocol IV Flush (Picc Line Flush) 8 ml IVPUSH PRN PRN PRN Reason: Protocol Aztreonam 1 gm/ Dextrose 50 mls @ 100 mls/hr IVPB Q8H-IV BLESSING PRN Reason: Protocol Last Admin: 08/08/17 09:49 Dose: 100 mls/hr Vancomycin HCl 1,000 mg/ (Dextrose) 250 mls @ 166.667 mls/hr IVPB BID [facility] Last Admin: 08/08/17 09:49 Dose: 166.667 mls/hr Insulin Aspart (Novolog Vial Sliding Scale -) 1 vial SQ ACHS [facility] PRN Reason: Protocol Last Admin: 08/08/17 06:19 Dose: Not Given Insulin Detemir (Levemir Vial) 10 units SQ AM [facility] Last Admin: 08/08/17 06:21 Dose: 10 units Metformin HCl (Glucophage -) 500 mg PO BID@0700,1630 [facility] Last Admin: 08/08/17 06:20 Dose: 500 mg Montelukast Sodium (Singulair -) 10 mg PO HS [facility] Last Admin: 08/07/17 22:55 Dose: 10 mg Nebivolol (Bystolic -) 2.5 mg PO DAILY [facility] Last Admin: 08/08/17 09:49 Dose: 2.5 mg Nystatin (Nystatin Oral Suspension -) 500,000 units PO Q6HPO [facility] Last Admin: 08/08/17 06:20 Dose: 500,000 units Potassium Chloride (K-Dur -) 20 meq PO DAILY [facility] Last Admin: 08/08/17 09:53 Dose: 20 meq Prednisone (Deltasone -) 20 mg PO BID [facility] Ranitidine HCl (Zantac -) 150 mg PO DAILY [facility] Last Admin: 08/08/17 09:50 Dose: 150 mg Senna (Senna -) 1 tab PO DAILY [facility] Last Admin: 08/08/17 09:53 Dose: 1 tab Warfarin Sodium (Coumadin -) 5 mg PO DAILY@1800 [facility] - Objective Vital Signs: Vital Signs Temperature 97.7 F 08/08/17 06:00 Pulse Rate 76 08/08/17 10:30 Respiratory Rate 19 08/08/17 06:00 Blood Pressure 139/62 08/08/17 06:00 O2 Sat by Pulse Oximetry (%) 93 L 08/08/17 10:30 Constitutional: Yes: Well Nourished, Calm Eyes: Yes: WNL HENT: Yes: WNL Neck: Yes: WNL Cardiovascular: Yes: Pulse Irregular, S1, S2 Respiratory: Yes: Rhonchi, Wheezes (HCIQUITA WHEEZES AND RHONCHI) Gastrointestinal: Yes: Normal Bowel Sounds, Soft Extremities: Yes: WNL Edema: Yes (RUE) Labs: CBC, BMP 08/08/17 06:00 08/08/17 06:00 INR, PTT INR 2.53 (0.82-1.09) H D 08/08/17 06:00 Fibrinogen 191.0 mg/dL (238-498) L 08/05/17 17:00 Assessment/Plan IMP COPD /ASTHMA EXACERBATION IMPROVING CHF MVR RECENT/NL CORONARIES PERMANENT AF H/O VTE HTN/PULMONARY HTN LLL OPACITY LIKELY PARTIAL ATELECTASIS LLL LEFT IJ PHLEBITIS ANEMIA THROMBOCYTOPENIA WORSENING HEMATOMA O2 BRONCHODILATORS A/C DIURETICS PREDNISONE BRONCHODILATORS CHEST PT MUCOMYST F/U CHEST CT OUTPATIENT IF NO CHANGE LLL CONSOLIDATION CONSIDER BRONCHOSCOPY PULMONARY REHAB POST DISCHARGE MONITOR H+H,PLTS NORMAL TRANSFUSION THRESHOLD DR YE Problem List - Problems (1) COPD (chronic obstructive pulmonary disease) with chronic bronchitis Code(s): J44.9 - CHRONIC OBSTRUCTIVE PULMONARY DISEASE, UNSPECIFIED (2) Acute asthma exacerbation Code(s): J45.901 - UNSPECIFIED ASTHMA WITH (ACUTE) EXACERBATION Qualifiers: (3) Anxiety and depression Code(s): F41.9 - ANXIETY DISORDER, UNSPECIFIED F32.9 - MAJOR DEPRESSIVE DISORDER, SINGLE EPISODE, UNSPECIFIED (4) Mitral valve replaced Code(s): Z95.2 - PRESENCE OF PROSTHETIC HEART VALVE
--- NOTE | 2017-08-08 12:30 | PN ---
Progress Note (short form) - Note Progress Note: sfeels improved, less sob, less cough no diarrhea no dysuria Vital Signs Period Temp Pulse Resp BP Sys/Urrutia Pulse Ox Last 24 Hr 97.7 F-98.6 F 76-93 19-20 130-148/62-86 93-100 cor-rrr lungs bibasilar crackles abd soft,nt ext Right arm picc line CBC, BMP 08/08/17 06:00 08/08/17 06:00 Microbiology 08/04/17 19:45 Blood - Peripheral Venous Blood Culture - Preliminary NO GROWTH OBTAINED AFTER 72 HOURS, INCUBATION TO CONTINUE FOR 2 DAYS. 08/04/17 19:45 Blood - Peripheral Venous Blood Culture - Preliminary NO GROWTH OBTAINED AFTER 72 HOURS, INCUBATION TO CONTINUE FOR 2 DAYS. 07/30/17 18:30 Blood - Peripheral Venous Blood Culture - Final NO GROWTH AFTER 5 DAYS INCUBATION 07/30/17 18:30 Blood - Peripheral Venous Blood Culture - Final NO GROWTH AFTER 5 DAYS INCUBATION 07/12/17 06:00 Blood - Peripheral Venous Blood Culture - Final NO GROWTH AFTER 5 DAYS INCUBATION 07/12/17 06:00 Blood - Peripheral Venous Blood Culture - Final NO GROWTH AFTER 5 DAYS INCUBATION 07/13/17 16:45 Urine - Urine Clean Catch Urine Culture - Final Proteus Mirabilis 07/12/17 06:20 Nasopharyngeal Swab Influenza Types A,B Antigen (GILBERT) - Final 07/12/17 06:20 Nasopharyngeal Swab - Final Laboratory Tests 08/07/17 09:25 Vancomycin Pre-Dose 11.622 H a/p concern for pneumonia/bronchitis- infection as causing the persistent low platelets and fibrinogen- hematoma and hgb now seem stable given ampicillin allergy, will avoid levaquin as she is on coumadin, day #3 vanco/azactam- d/w hematology s/p MVR 07/01 thrush- on nystatin- asked her to remove her dentures and use swish and swallow vancomycin trough Problem List - Problems (1) Acute exacerbation of CHF (congestive heart failure) Code(s): I50.9 - HEART FAILURE, UNSPECIFIED Qualifiers: Congestive heart failure type: diastolic Qualified Code(s): I50.33 - Acute on chronic diastolic (congestive) heart failure; I50.33 - Acute on chronic diastolic (congestive) heart failure; I50.33 - Acute on chronic diastolic (congestive) heart failure; I50.33 - Acute on chronic diastolic ( congestive) heart failure (2) COPD exacerbation Code(s): J44.1 - CHRONIC OBSTRUCTIVE PULMONARY DISEASE W (ACUTE) EXACERBATION (3) S/P MVR (mitral valve replacement) Code(s): Z95.2 - PRESENCE OF PROSTHETIC HEART VALVE
[2017-08-08] MEDS: predniSONE 20 MG TABLET (UD) PO SCH ×2 (12:48→22:43)
[2017-08-08 15:10] LABS: MCH 31.2 pg (25.7-33.7); MEAN CELL VOLUME 94.6 fl (80-96); MEAN PLT VOLUME 8.8 fl (7.5-11.1); PLATELET COUNT 64 K/MM3 (134-434); WHITE BLOOD COUNT 10.2 K/mm3 (4.0-10.0)
--- NOTE | 2017-08-08 22:23 | PN ---
Progress Note (short form) - Note Progress Note: Patient seen and examined Denies any complaints AFVSS Cor: RSR, No murmurs, No gallops Lungs: Clear to P&A Abd: Soft, Normal bowel sounds, Large Lt. 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 flank hematoma, s/p fall Hemoglobin stable. Do not suspect active bleeding thrombocytopenia --- timing coincides with fall/hematoma ? consumption from hematoma Unlikely HIT given time frame ---suspect false + hit. will await serotonin release assay on empric antibiotics Lt. ij and axillary thrombus--worsened on coumadin monitor INR
[2017-08-08] MEDS: MONTELUKAST NA 10 MG TABLET PO SCH (22:43)
[2017-08-09 00:11] LABS: HIGH DOSE HEPARIN SRA < 1 % (0-20); LOW DOSE HEPARIN SRA < 1 % (0-20)
[2017-08-09] MEDS: AZTREONAM 1 GM in DEXTROSE 5%-WATER - 50 ML IVPB SCH ×3 (02:56→17:28)
[2017-08-09] MEDS: metFORMIN HCL 500 MG TABLET (FP) PO SCH ×2 (06:43→17:28)
[2017-08-09] MEDS: NYSTATIN 500,000 UNITS/5 ML SUSPENSION PO SCH ×3 (06:43→17:28)
[2017-08-09] MEDS: INSULIN DETEMIR 100 UNITS/ML MDV SQ SCH (06:43)
[2017-08-09] MEDS: INSULIN SLIDING SCALE (NOVOLOG) 1 VIAL SQ SCH ×4 (06:53→21:33)
[2017-08-09 07:52] LABS: INR 3.21 (0.82-1.09); PROTHROMBIN TIME (PATIENT) 36.3 SEC (9.98-11.88)
--- NOTE | 2017-08-09 08:49 | PN ---
Progress Note, Physician - Current Medication List Current Medications: Active Medications Acetaminophen (Tylenol -) 650 mg PO Q6H PRN PRN Reason: PAIN Last Admin: 08/04/17 22:35 Dose: 650 mg Budesonide (Pulmicort 0.25 Mg Nebulizer -) 1 amp NEB BID [facility] Last Admin: 08/08/17 22:00 Dose: 1 amp Calcium Carbonate (Calcium Carbonate -) 650 mg PO DAILY [facility] Last Admin: 08/08/17 09:53 Dose: 650 mg Digoxin (Lanoxin -) 0.125 mg PO DAILY [facility] Last Admin: 08/08/17 09:53 Dose: 0.125 mg Diltiazem HCl (Cardizem Cd -) 360 mg PO DAILY [facility] Last Admin: 08/08/17 09:50 Dose: 360 mg Furosemide (Lasix -) 40 mg PO DAILY [facility] Last Admin: 08/08/17 09:50 Dose: 40 mg Guaifenesin (Diabetic Tussin Dm -) 5 ml PO Q4H PRN PRN Reason: COUGH Last Admin: 08/04/17 22:35 Dose: 5 ml IV Flush (Triple Lumen Flush) 4 ml IVPUSH PRN PRN PRN Reason: Protocol IV Flush (Picc Line Flush) 8 ml IVPUSH PRN PRN PRN Reason: Protocol Aztreonam 1 gm/ Dextrose 50 mls @ 100 mls/hr IVPB Q8H-IV BLESSING PRN Reason: Protocol Last Admin: 08/09/17 02:56 Dose: 100 mls/hr Vancomycin HCl 1,000 mg/ (Dextrose) 250 mls @ 166.667 mls/hr IVPB BID [facility] Last Admin: 08/08/17 22:52 Dose: 166.667 mls/hr Insulin Aspart (Novolog Vial Sliding Scale -) 1 vial SQ ACHS [facility] PRN Reason: Protocol Last Admin: 08/09/17 06:53 Dose: Not Given Insulin Detemir (Levemir Vial) 10 units SQ AM [facility] Last Admin: 08/09/17 06:43 Dose: 10 units Metformin HCl (Glucophage -) 500 mg PO BID@0700,1630 [facility] Last Admin: 08/09/17 06:43 Dose: 500 mg Montelukast Sodium (Singulair -) 10 mg PO HS [facility] Last Admin: 08/08/17 22:43 Dose: 10 mg Nebivolol (Bystolic -) 2.5 mg PO DAILY [facility] Last Admin: 08/08/17 09:49 Dose: 2.5 mg Nystatin (Nystatin Oral Suspension -) 500,000 units PO Q6HPO [facility] Last Admin: 08/09/17 06:43 Dose: 500,000 units Potassium Chloride (K-Dur -) 20 meq PO DAILY [facility] Last Admin: 08/08/17 09:53 Dose: 20 meq Prednisone (Deltasone -) 20 mg PO BID [facility] Last Admin: 08/08/17 22:43 Dose: 20 mg Ranitidine HCl (Zantac -) 150 mg PO DAILY [facility] Last Admin: 08/08/17 09:50 Dose: 150 mg Senna (Senna -) 1 tab PO DAILY [facility] Last Admin: 08/08/17 09:53 Dose: 1 tab Warfarin Sodium (Coumadin -) 5 mg PO DAILY@1800 [facility] - Objective Vital Signs: Vital Signs Temperature 97.8 F 08/09/17 06:00 Pulse Rate 77 08/09/17 06:00 Respiratory Rate 20 08/09/17 06:00 Blood Pressure 131/74 08/09/17 06:00 O2 Sat by Pulse Oximetry (%) 100 08/08/17 21:00 Eyes: Yes: WNL, Conjunctiva Clear, EOM Intact HENT: Yes: WNL, Atraumatic, Normocephalic Neck: Yes: WNL, Supple, Trachea Midline Cardiovascular: Yes: WNL, Pulse Irregular Respiratory: Yes: WNL, Regular, CTA Bilaterally Gastrointestinal: Yes: WNL, Normal Bowel Sounds Genitourinary: Yes: WNL Musculoskeletal: Yes: WNL Extremities: Yes: WNL Edema: No Integumentary: Yes: WNL Neurological: Yes: WNL, Alert, Oriented ...Motor Strength: WNL Psychiatric: Yes: WNL Labs: CBC, BMP 08/08/17 15:00 08/08/17 06:00 INR, PTT INR 3.21 (0.82-1.09) H 08/09/17 07:00 Fibrinogen 191.0 mg/dL (238-498) L 08/05/17 17:00 Assessment/Plan Bio 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 Pulmonary following. Hematology following
[2017-08-09] MEDS: RANITIDINE HCL 150 MG TABLET (FP) PO SCH (09:43)
[2017-08-09] MEDS: NEBIVOLOL 2.5 MG TABLET (FP) PO SCH (09:43)
[2017-08-09] MEDS: VANCOMYCIN 1,000 MG in DEXTROSE 5%-WATER - 250 ML IVPB SCH ×2 (09:43→21:31)
[2017-08-09] MEDS: CALCIUM CARBONATE 650 MG TABLET PO SCH (09:43)
[2017-08-09] MEDS: DIGOXIN 0.125 MG TABLET (FP) PO SCH (09:43)
[2017-08-09] MEDS: SENNOSIDES 8.6MG TABLET (FP) PO SCH (09:44)
[2017-08-09] MEDS: FUROSEMIDE 40 MG TABLET (FP) PO SCH (09:44)
[2017-08-09] MEDS: POTASSIUM CHLORIDE TABS 20 MEQ TABLET.ER (FP) PO SCH (09:44)
[2017-08-09] MEDS: predniSONE 20 MG TABLET (UD) PO SCH ×2 (09:44→21:31)
[2017-08-09] MEDS: BUDESONIDE 0.25 MG/2ML INH SUSP VIAL NEB SCH ×2 (10:40→22:26)
--- NOTE | 2017-08-09 12:04 | PN ---
Progress Note, Physician Chief Complaint: AWAKE SITTING IN CHAIR EVENTS AND CHART REVIEWED NAD - Current Medication List Current Medications: Active Medications Acetaminophen (Tylenol -) 650 mg PO Q6H PRN PRN Reason: PAIN Last Admin: 08/04/17 22:35 Dose: 650 mg Budesonide (Pulmicort 0.25 Mg Nebulizer -) 1 amp NEB BID [facility] Last Admin: 08/09/17 10:40 Dose: 1 amp Calcium Carbonate (Calcium Carbonate -) 650 mg PO DAILY [facility] Last Admin: 08/09/17 09:43 Dose: 650 mg Digoxin (Lanoxin -) 0.125 mg PO DAILY [facility] Last Admin: 08/09/17 09:43 Dose: 0.125 mg Diltiazem HCl (Cardizem Cd -) 360 mg PO DAILY [facility] Last Admin: 08/09/17 09:43 Dose: 360 mg Furosemide (Lasix -) 40 mg PO DAILY [facility] Last Admin: 08/09/17 09:44 Dose: 40 mg Guaifenesin (Diabetic Tussin Dm -) 5 ml PO Q4H PRN PRN Reason: COUGH Last Admin: 08/04/17 22:35 Dose: 5 ml IV Flush (Triple Lumen Flush) 4 ml IVPUSH PRN PRN PRN Reason: Protocol IV Flush (Picc Line Flush) 8 ml IVPUSH PRN PRN PRN Reason: Protocol Aztreonam 1 gm/ Dextrose 50 mls @ 100 mls/hr IVPB Q8H-IV BLESSING PRN Reason: Protocol Last Admin: 08/09/17 09:43 Dose: 100 mls/hr Vancomycin HCl 1,000 mg/ (Dextrose) 250 mls @ 166.667 mls/hr IVPB BID [facility] Last Admin: 08/09/17 09:43 Dose: 166.667 mls/hr Insulin Aspart (Novolog Vial Sliding Scale -) 1 vial SQ ACHS [facility]ESS[facility] PRN Reason: Protocol Last Admin: 08/09/17 06:53 Dose: Not Given Insulin Detemir (Levemir Vial) 10 units SQ AM [facility] Last Admin: 08/09/17 06:43 Dose: 10 units Metformin HCl (Glucophage -) 500 mg PO BID@0700,1630 [facility] Last Admin: 08/09/17 06:43 Dose: 500 mg Montelukast Sodium (Singulair -) 10 mg PO HS [facility] Last Admin: 10/27/17 22:43 Dose: 10 mg Nebivolol (Bystolic -) 2.5 mg PO DAILY [facility] Last Admin: 08/09/17 09:43 Dose: 2.5 mg Nystatin (Nystatin Oral Suspension -) 500,000 units PO Q6HPO [facility] Last Admin: 08/09/17 06:43 Dose: 500,000 units Potassium Chloride (K-Dur -) 20 meq PO DAILY [facility] Last Admin: 08/09/17 09:44 Dose: 20 meq Prednisone (Deltasone -) 20 mg PO BID [facility] Last Admin: 08/09/17 09:44 Dose: 20 mg Ranitidine HCl (Zantac -) 150 mg PO DAILY [facility] Last Admin: 08/09/17 09:43 Dose: 150 mg Senna (Senna -) 1 tab PO DAILY [facility] Last Admin: 08/09/17 09:44 Dose: 1 tab Warfarin Sodium (Coumadin -) 5 mg PO DAILY@1800 [facility] - Objective Vital Signs: Vital Signs Temperature 98.6 F 08/09/17 10:00 Pulse Rate 93 H 08/09/17 10:40 Respiratory Rate 22 08/09/17 10:00 Blood Pressure 133/77 08/09/17 10:00 O2 Sat by Pulse Oximetry (%) 99 08/09/17 10:40 Constitutional: Yes: No Distress Eyes: Yes: WNL HENT: Yes: WNL Neck: Yes: WNL Cardiovascular: Yes: WNL Respiratory: Yes: WNL Gastrointestinal: Yes: WNL Genitourinary: Yes: WNL Musculoskeletal: Yes: Muscle Weakness Extremities: Yes: WNL Edema: Yes Edema: LLE: Trace, RLE: Trace Peripheral Pulses WNL: Yes Integumentary: Yes: WNL Wound/Incision: Yes: Clean/Dry Neurological: Yes: Pre-Existing Deficit ...Motor Strength: LLE, RLE Psychiatric: Yes: WNL Labs: CBC, BMP 08/08/17 15:00 08/08/17 06:00 INR, PTT INR 3.21 (0.82-1.09) H 08/09/17 07:00 Fibrinogen 191.0 mg/dL (238-498) L 08/05/17 17:00 Problem List - Problems (1) Asthma attack Code(s): J45.901 - UNSPECIFIED ASTHMA WITH (ACUTE) EXACERBATION (2) CHF (congestive heart failure) Code(s): I50.9 - HEART FAILURE, UNSPECIFIED (3) COPD (chronic obstructive pulmonary disease) with chronic bronchitis Code(s): J44.9 - CHRONIC OBSTRUCTIVE PULMONARY DISEASE, UNSPECIFIED (4) Mitral valve replaced Code(s): Z95.2 - PRESENCE OF PROSTHETIC HEART VALVE (5) S/P MVR (mitral valve replacement) Code(s): Z95.2 - PRESENCE OF PROSTHETIC HEART VALVE (6) Acute asthma exacerbation Code(s): J45.901 - UNSPECIFIED ASTHMA WITH (ACUTE) EXACERBATION Qualifiers: (7) Acute exacerbation of CHF (congestive heart failure) Code(s): I50.9 - HEART FAILURE, UNSPECIFIED Qualifiers: Congestive heart failure type: diastolic Qualified Code(s): I50.33 - Acute on chronic diastolic (congestive) heart failure; I50.33 - Acute on chronic diastolic (congestive) heart failure; I50.33 - Acute on chronic diastolic (congestive) heart failure; I50.33 - Acute on chronic diastolic ( congestive) heart failure (8) Fall Code(s): W19.XXXA - UNSPECIFIED FALL, INITIAL ENCOUNTER (9) History of mitral valve replacement with bioprosthetic valve Code(s): Z95.3 - PRESENCE OF XENOGENIC HEART VALVE Assessment/Plan AC ON HOLD PT EVAL [facility] TOLERATING TRANSFERS BED/CHAIR
--- NOTE | 2017-08-09 12:05 | PN ---
Progress Note (short form) - Note Progress Note: ADDENDUM AC CONTINUED WITH COUMADIN Problem List - Problems (1) Asthma attack Code(s): J45.901 - UNSPECIFIED ASTHMA WITH (ACUTE) EXACERBATION (2) CHF (congestive heart failure) Code(s): I50.9 - HEART FAILURE, UNSPECIFIED (3) COPD (chronic obstructive pulmonary disease) with chronic bronchitis Code(s): J44.9 - CHRONIC OBSTRUCTIVE PULMONARY DISEASE, UNSPECIFIED (4) Mitral valve replaced Code(s): Z95.2 - PRESENCE OF PROSTHETIC HEART VALVE (5) S/P MVR (mitral valve replacement) Code(s): Z95.2 - PRESENCE OF PROSTHETIC HEART VALVE (6) Acute asthma exacerbation Code(s): J45.901 - UNSPECIFIED ASTHMA WITH (ACUTE) EXACERBATION Qualifiers: (7) Acute exacerbation of CHF (congestive heart failure) Code(s): I50.9 - HEART FAILURE, UNSPECIFIED Qualifiers: Congestive heart failure type: diastolic Qualified Code(s): I50.33 - Acute on chronic diastolic (congestive) heart failure; I50.33 - Acute on chronic diastolic (congestive) heart failure; I50.33 - Acute on chronic diastolic (congestive) heart failure; I50.33 - Acute on chronic diastolic ( congestive) heart failure (8) Fall Code(s): W19.XXXA - UNSPECIFIED FALL, INITIAL ENCOUNTER (9) History of mitral valve replacement with bioprosthetic valve Code(s): Z95.3 - PRESENCE OF XENOGENIC HEART VALVE
--- NOTE | 2017-08-09 13:02 | PN ---
Progress Note (short form) - Note Progress Note: Hematology/Oncology Follow-up Note S: Patient feels well today without any complaints Last Vital Signs Temp Pulse Resp BP Pulse Ox 98.6 F 93 H 22 133/77 99 08/09/17 10:00 08/09/17 10:40 08/09/17 10:00 08/09/17 10:00 08/09/17 10:40 AFVSS Cor: RSR, No murmurs, No gallops Lungs: Clear to P&A Abd: Soft, Normal bowel sounds, Large Lt. flank hematoma CBC, BMP 08/08/17 15:00 08/08/17 06:00 Current Medications Generic Name Dose Route Start Last Admin Trade Name Freq PRN Reason Stop Dose Admin Acetaminophen 650 mg 07/14/17 04:07 08/04/17 22:35 Tylenol - PO 650 mg Q6H PRN Administration PAIN Budesonide 1 amp 07/12/17 11:00 08/09/17 10:40 Pulmicort 0.25 Mg Nebulizer - NEB 1 amp BID BLESSING Administration Calcium Carbonate 650 mg 07/13/17 14:15 08/09/17 09:43 Calcium Carbonate - PO 650 mg DAILY BLESSING Administration Digoxin 0.125 mg 07/24/17 10:00 08/09/17 09:43 Lanoxin - PO 0.125 mg DAILY BLESSING Administration Diltiazem HCl 360 mg 07/20/17 10:00 08/09/17 09:43 Cardizem Cd - PO 360 mg DAILY BLESSING Administration Furosemide 40 mg 07/14/17 10:00 08/09/17 09:44 Lasix - PO 40 mg DAILY BLESSING Administration Guaifenesin 5 ml 07/13/17 09:54 08/04/17 22:35 Diabetic Tussin Dm - PO 5 ml Q4H PRN Administration COUGH IV Flush 4 ml 08/01/17 13:14 Triple Lumen Flush IVPUSH PRN PRN Protocol IV Flush 8 ml 08/01/17 14:35 Picc Line Flush IVPUSH PRN PRN Protocol Aztreonam 1 gm/ Dextrose 50 mls @ 100 mls/hr 08/05/17 15:30 08/09/17 09:43 IVPB 100 mls/hr Q8H-IV BLESSING Administration Protocol Vancomycin HCl 1,000 mg/ 250 mls @ 166.667 mls/hr 08/05/17 15:45 08/09/17 09:43 Dextrose IVPB 166.667 mls/hr BID BLESSING Administration Insulin Aspart 1 vial 07/14/17 07:00 08/09/17 06:53 Novolog Vial Sliding Scale - SQ Not Given ACHS [facility] Protocol Insulin Detemir 10 units 07/17/17 07:00 08/09/17 06:43 Levemir Vial SQ 10 units AM BLESSING Administration Metformin HCl 500 mg 07/21/17 07:00 08/09/17 06:43 Glucophage - PO 500 mg BID@0700,1630 BLESSING Administration Montelukast Sodium 10 mg 07/22/17 22:00 08/08/17 22:43 Singulair - PO 10 mg HS BLESSING Administration Nebivolol 2.5 mg 07/24/17 10:00 08/09/17 09:43 Bystolic - PO 2.5 mg DAILY BLESSING Administration Nystatin 500,000 units 08/05/17 18:00 08/09/17 06:43 Nystatin Oral Suspension - PO 500,000 units Q6HPO BLESSING Administration Potassium Chloride 20 meq 07/12/17 10:00 08/09/17 09:44 K-Dur - PO 20 meq DAILY BLESSING Administration Prednisone 20 mg 08/08/17 10:30 08/09/17 09:44 Deltasone - PO 20 mg BID BLESSING Administration Ranitidine HCl 150 mg 07/12/17 10:00 08/09/17 09:43 Zantac - PO 150 mg DAILY BLESSING Administration Senna 1 tab 07/12/17 10:00 08/09/17 09:44 Senna - PO 1 tab DAILY BLESSING Administration Warfarin Sodium 5 mg 08/08/17 18:00 Coumadin - PO DAILY@1800 BLESSING A/P 77 y/o female with multiple medical comorbidities, Left IJ Thrombus,AFIb ,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 -Her hgb is stable today, will continue to monitor -stable thrombocytopenia, likely from consumption coagulopathy, will continue to monitor -HIT Ab +ve, awaiting Serotonin release assay -on coumadin for left IJ and axiallary thrombus, INR is 3.2 today -will continue to follow closely
--- NOTE | 2017-08-09 13:06 | PN ---
Progress Note (short form) - Note Progress Note: Breathing feels ok. No CP or SOB. Some dry cough. No abdominal pain. Intake & Output 08/06/17 08/07/17 08/08/17 08/09/17 23:59 23:59 23:59 23:59 Intake Total 1420 1320 1320 660 Balance 1420 1320 1320 660 Weight 193 lb 191 lb 12.8 oz 192 lb 3.2 oz Last Vital Signs Temp Pulse Resp BP Pulse Ox 98.6 F 93 H 22 133/77 99 08/09/17 10:00 08/09/17 10:40 08/09/17 10:00 08/09/17 10:00 08/09/17 10:40 Active Medications Acetaminophen (Tylenol -) 650 mg PO Q6H PRN PRN Reason: PAIN Last Admin: 08/04/17 22:35 Dose: 650 mg Budesonide (Pulmicort 0.25 Mg Nebulizer -) 1 amp NEB BID [facility] Last Admin: 08/09/17 10:40 Dose: 1 amp Calcium Carbonate (Calcium Carbonate -) 650 mg PO DAILY [facility] Last Admin: 08/09/17 09:43 Dose: 650 mg Digoxin (Lanoxin -) 0.125 mg PO DAILY [facility] Last Admin: 08/09/17 09:43 Dose: 0.125 mg Diltiazem HCl (Cardizem Cd -) 360 mg PO DAILY [facility] Last Admin: 08/09/17 09:43 Dose: 360 mg Furosemide (Lasix -) 40 mg PO DAILY [facility] Last Admin: 08/09/17 09:44 Dose: 40 mg Guaifenesin (Diabetic Tussin Dm -) 5 ml PO Q4H PRN PRN Reason: COUGH Last Admin: 08/04/17 22:35 Dose: 5 ml IV Flush (Triple Lumen Flush) 4 ml IVPUSH PRN PRN PRN Reason: Protocol IV Flush (Picc Line Flush) 8 ml IVPUSH PRN PRN PRN Reason: Protocol Aztreonam 1 gm/ Dextrose 50 mls @ 100 mls/hr IVPB Q8H-IV BLESSING PRN Reason: Protocol Last Admin: 08/09/17 09:43 Dose: 100 mls/hr Vancomycin HCl 1,000 mg/ (Dextrose) 250 mls @ 166.667 mls/hr IVPB BID BLESSING Last Admin: 08/09/17 09:43 Dose: 166.667 mls/hr Insulin Aspart (Novolog Vial Sliding Scale -) 1 vial SQ ACHS [facility] PRN Reason: Protocol Last Admin: 08/09/17 06:53 Dose: Not Given Insulin Detemir (Levemir Vial) 10 units SQ AM [facility] Last Admin: 08/09/17 06:43 Dose: 10 units Metformin HCl (Glucophage -) 500 mg PO BID@0700,1630 [facility] Last Admin: 08/09/17 06:43 Dose: 500 mg Montelukast Sodium (Singulair -) 10 mg PO HS [facility] Last Admin: 08/08/17 22:43 Dose: 10 mg Nebivolol (Bystolic -) 2.5 mg PO DAILY [facility] Last Admin: 08/09/17 09:43 Dose: 2.5 mg Nystatin (Nystatin Oral Suspension -) 500,000 units PO Q6HPO [facility] Last Admin: 08/09/17 06:43 Dose: 500,000 units Potassium Chloride (K-Dur -) 20 meq PO DAILY [facility] Last Admin: 08/09/17 09:44 Dose: 20 meq Prednisone (Deltasone -) 20 mg PO BID [facility] Last Admin: 08/09/17 09:44 Dose: 20 mg Ranitidine HCl (Zantac -) 150 mg PO DAILY [facility] Last Admin: 08/09/17 09:43 Dose: 150 mg Senna (Senna -) 1 tab PO DAILY [facility] Last Admin: 08/09/17 09:44 Dose: 1 tab Warfarin Sodium (Coumadin -) 5 mg PO DAILY@1800 BLESSING Constitutional: Yes: NAD Eyes: Yes: WNL HENT: Yes: WNL Neck: Yes: WNL Cardiovascular: Yes: Pulse Irregular, S1, S2 Respiratory: Yes: Few scattered rhonchi, no active wheezing Gastrointestinal: Yes: Normal Bowel Sounds, Soft Extremities: Yes: WNL Edema: Yes Labs: Laboratory Results - last 24 hr 08/05/17 08/08/17 08/08/17 06:00 15:00 15:47 WBC 10.2 H RBC 2.94 L Hgb 9.2 L Hct 27.8 L MCV 94.6 MCH 31.2 MCHC 33.0 RDW 19.0 H Plt Count 64 L D MPV 8.8 Haptoglobin 105 PT with INR INR POC Glucometer 251 08/08/17 08/09/17 08/09/17 22:41 05:51 07:00 WBC RBC Hgb Hct MCV MCH MCHC RDW Plt Count MPV Haptoglobin PT with INR 36.30 H INR 3.21 H POC Glucometer 219 184 08/09/17 11:36 WBC RBC Hgb Hct MCV MCH MCHC RDW Plt Count MPV Haptoglobin PT with INR INR POC Glucometer 180 Problem List - Problems (1) COPD (chronic obstructive pulmonary disease) with chronic bronchitis Code(s): J44.9 - CHRONIC OBSTRUCTIVE PULMONARY DISEASE, UNSPECIFIED (2) Acute asthma exacerbation Code(s): J45.901 - UNSPECIFIED ASTHMA WITH (ACUTE) EXACERBATION Qualifiers: (3) Anxiety and depression Code(s): F41.9 - ANXIETY DISORDER, UNSPECIFIED F32.9 - MAJOR DEPRESSIVE DISORDER, SINGLE EPISODE, UNSPECIFIED (4) Mitral valve replaced Code(s): Z95.2 - PRESENCE OF PROSTHETIC HEART VALVE Assessment/Plan COPD /ASTHMA EXACERBATION CHF 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
--- NOTE | 2017-08-09 15:11 | PN ---
Progress Note (short form) - Note Progress Note: feels improved, less sob, less cough feels better resting comfortably in bed no diarrhea no dysuria Vital Signs Period Temp Pulse Resp BP Sys/Urrutia Pulse Ox Last 24 Hr 97.6 F-98.6 F 77-93 19-22 107-152/63-77 99-100 cor-rrr lungs decreased bs at bases abd soft,nt ext no edema CBC, BMP 08/08/17 15:00 08/08/17 06:00 Microbiology 08/04/17 19:45 Blood - Peripheral Venous Blood Culture - Preliminary NO GROWTH OBTAINED AFTER 96 HOURS, INCUBATION TO CONTINUE FOR 1 DAYS. 08/04/17 19:45 Blood - Peripheral Venous Blood Culture - Preliminary NO GROWTH OBTAINED AFTER 96 HOURS, INCUBATION TO CONTINUE FOR 1 DAYS. 07/30/17 18:30 Blood - Peripheral Venous Blood Culture - Final NO GROWTH AFTER 5 DAYS INCUBATION 07/30/17 18:30 Blood - Peripheral Venous Blood Culture - Final NO GROWTH AFTER 5 DAYS INCUBATION 07/12/17 06:00 Blood - Peripheral Venous Blood Culture - Final NO GROWTH AFTER 5 DAYS INCUBATION 07/12/17 06:00 Blood - Peripheral Venous Blood Culture - Final NO GROWTH AFTER 5 DAYS INCUBATION 07/13/17 16:45 Urine - Urine Clean Catch Urine Culture - Final Proteus Mirabilis 07/12/17 06:20 Nasopharyngeal Swab Influenza Types A,B Antigen (GILBERT) - Final 07/12/17 06:20 Nasopharyngeal Swab - Final vanco 11.6 a/p concern for pneumonia/bronchitis- infection as causing the persistent low platelets and fibrinogen- hematoma and hgb now seem stable given ampicillin allergy, will avoid levaquin as she is on coumadin, day #4 vanco/azactam- d/w hematology s/p MVR 07/01 thrush- on nystatin- asked her to remove her dentures and use swish and swallow vancomycin trough repeat in am Problem List - Problems (1) Acute exacerbation of CHF (congestive heart failure) Code(s): I50.9 - HEART FAILURE, UNSPECIFIED Qualifiers: Congestive heart failure type: diastolic Qualified Code(s): I50.33 - Acute on chronic diastolic (congestive) heart failure; I50.33 - Acute on chronic diastolic (congestive) heart failure; I50.33 - Acute on chronic diastolic (congestive) heart failure; I50.33 - Acute on chronic diastolic ( congestive) heart failure (2) COPD exacerbation Code(s): J44.1 - CHRONIC OBSTRUCTIVE PULMONARY DISEASE W (ACUTE) EXACERBATION (3) S/P MVR (mitral valve replacement) Code(s): Z95.2 - PRESENCE OF PROSTHETIC HEART VALVE
[2017-08-09] MEDS: WARFARIN NA 5 MG TABLET (UD) PO SCH (17:23)
[2017-08-09] MEDS ORDERED: PT OWN MED DRAWER 7, Y5N ONE ×3 (17:25→22:20)
[2017-08-09] MEDS: MONTELUKAST NA 10 MG TABLET PO SCH (21:31)
[2017-08-10] MEDS: NYSTATIN 500,000 UNITS/5 ML SUSPENSION PO SCH ×4 (00:15→17:44)
[2017-08-10] MEDS ORDERED: PT OWN MED DRAWER 7, Y5N ONE ×4 (02:26→21:40)
[2017-08-10] MEDS: AZTREONAM 1 GM in DEXTROSE 5%-WATER - 50 ML IVPB SCH ×3 (02:45→17:43)
[2017-08-10] MEDS: metFORMIN HCL 500 MG TABLET (FP) PO SCH ×2 (06:55→17:43)
[2017-08-10] MEDS: INSULIN SLIDING SCALE (NOVOLOG) 1 VIAL SQ SCH ×4 (06:56→21:50)
[2017-08-10] MEDS: INSULIN DETEMIR 100 UNITS/ML MDV SQ SCH (06:56)
--- NOTE | 2017-08-10 08:45 | PN ---
Progress Note, Physician - Current Medication List Current Medications: Active Medications Acetaminophen (Tylenol -) 650 mg PO Q6H PRN PRN Reason: PAIN Last Admin: 08/04/17 22:35 Dose: 650 mg Budesonide (Pulmicort 0.25 Mg Nebulizer -) 1 amp NEB BID [facility] Last Admin: 08/09/17 22:26 Dose: 1 amp Calcium Carbonate (Calcium Carbonate -) 650 mg PO DAILY [facility] Last Admin: 08/09/17 09:43 Dose: 650 mg Digoxin (Lanoxin -) 0.125 mg PO DAILY [facility] Last Admin: 08/09/17 09:43 Dose: 0.125 mg Diltiazem HCl (Cardizem Cd -) 360 mg PO DAILY [facility] Last Admin: 08/09/17 09:43 Dose: 360 mg Furosemide (Lasix -) 40 mg PO DAILY [facility] Last Admin: 08/09/17 09:44 Dose: 40 mg Guaifenesin (Diabetic Tussin Dm -) 5 ml PO Q4H PRN PRN Reason: COUGH Last Admin: 08/04/17 22:35 Dose: 5 ml IV Flush (Triple Lumen Flush) 4 ml IVPUSH PRN PRN PRN Reason: Protocol IV Flush (Picc Line Flush) 8 ml IVPUSH PRN PRN PRN Reason: Protocol Aztreonam 1 gm/ Dextrose 50 mls @ 100 mls/hr IVPB Q8H-IV BLESSING PRN Reason: Protocol Last Admin: 08/10/17 02:45 Dose: 100 mls/hr Vancomycin HCl 1,000 mg/ (Dextrose) 250 mls @ 166.667 mls/hr IVPB BID [facility] Last Admin: 08/09/17 21:31 Dose: 166.667 mls/hr Insulin Aspart (Novolog Vial Sliding Scale -) 1 vial SQ ACHS [facility]ESS[facility] PRN Reason: Protocol Last Admin: 08/10/17 06:56 Dose: Not Given Insulin Detemir (Levemir Vial) 10 units SQ AM [facility] Last Admin: 08/10/17 06:56 Dose: 10 units Metformin HCl (Glucophage -) 500 mg PO BID@0700,1630 [facility] Last Admin: 08/10/17 06:55 Dose: 500 mg Montelukast Sodium (Singulair -) 10 mg PO HS [facility] Last Admin: 08/09/17 21:31 Dose: 10 mg Nebivolol (Bystolic -) 2.5 mg PO DAILY [facility] Last Admin: 08/09/17 09:43 Dose: 2.5 mg Nystatin (Nystatin Oral Suspension -) 500,000 units PO Q6HPO [facility] Last Admin: 08/10/17 06:56 Dose: 500,000 units Potassium Chloride (K-Dur -) 20 meq PO DAILY [facility] Last Admin: 08/09/17 09:44 Dose: 20 meq Prednisone (Deltasone -) 20 mg PO BID [facility] Last Admin: 08/09/17 21:31 Dose: 20 mg Ranitidine HCl (Zantac -) 150 mg PO DAILY [facility] Last Admin: 08/09/17 09:43 Dose: 150 mg Senna (Senna -) 1 tab PO DAILY [facility] Last Admin: 08/09/17 09:44 Dose: 1 tab Warfarin Sodium (Coumadin -) 5 mg PO DAILY@1800 [facility] Last Admin: 08/09/17 17:23 Dose: Not Given - Objective Vital Signs: Vital Signs Temperature 98.2 F 08/10/17 05:55 Pulse Rate 82 08/10/17 05:55 Respiratory Rate 20 08/10/17 05:55 Blood Pressure 155/78 08/10/17 05:55 O2 Sat by Pulse Oximetry (%) 100 08/09/17 21:00 Eyes: Yes: WNL, Conjunctiva Clear, EOM Intact HENT: Yes: WNL, Atraumatic, Normocephalic Neck: Yes: WNL, Supple, Trachea Midline Cardiovascular: Yes: Pulse Irregular Respiratory: Yes: WNL, Regular, CTA Bilaterally Gastrointestinal: Yes: WNL, Normal Bowel Sounds Genitourinary: Yes: WNL Musculoskeletal: Yes: WNL Extremities: Yes: WNL Edema: No Integumentary: Yes: WNL Neurological: Yes: WNL, Alert, Oriented ...Motor Strength: WNL Psychiatric: Yes: WNL Labs: CBC, BMP 08/08/17 15:00 08/08/17 06:00 INR, PTT INR 3.21 (0.82-1.09) H 08/09/17 07:00 Fibrinogen 191.0 mg/dL (238-498) L 08/05/17 17:00 Assessment/Plan Bio 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 Pulmonary following. Hematology following
[2017-08-10] MEDS: CALCIUM CARBONATE 650 MG TABLET PO SCH (09:21)
[2017-08-10] MEDS: SENNOSIDES 8.6MG TABLET (FP) PO SCH (09:22)
[2017-08-10] MEDS: POTASSIUM CHLORIDE TABS 20 MEQ TABLET.ER (FP) PO SCH (09:22)
[2017-08-10] MEDS: FUROSEMIDE 40 MG TABLET (FP) PO SCH (09:22)
[2017-08-10] MEDS: RANITIDINE HCL 150 MG TABLET (FP) PO SCH (09:22)
[2017-08-10] MEDS: DIGOXIN 0.125 MG TABLET (FP) PO SCH (09:22)
[2017-08-10] MEDS: predniSONE 20 MG TABLET (UD) PO SCH ×2 (09:22→21:49)
[2017-08-10 09:54] LABS: INR 2.65 (0.82-1.09); PROTHROMBIN TIME (PATIENT) 29.9 SEC (9.98-11.88)
[2017-08-10] MEDS: VANCOMYCIN 1,000 MG in DEXTROSE 5%-WATER - 250 ML IVPB SCH (10:33)
[2017-08-10] MEDS: NEBIVOLOL 2.5 MG TABLET (FP) PO SCH (10:34)
[2017-08-10] MEDS: BUDESONIDE 0.25 MG/2ML INH SUSP VIAL NEB SCH ×2 (11:22→22:08)
--- NOTE | 2017-08-10 11:32 | PN ---
Progress Note, Physician Chief Complaint: AWAKE ALERT FEELING BETTER - Current Medication List Current Medications: Active Medications Acetaminophen (Tylenol -) 650 mg PO Q6H PRN PRN Reason: PAIN Last Admin: 08/04/17 22:35 Dose: 650 mg Budesonide (Pulmicort 0.25 Mg Nebulizer -) 1 amp NEB BID [facility]S [facility]CLUDE 234 BEDS AT [facility] Last Admin: 08/10/17 11:22 Dose: Not Given Calcium Carbonate (Calcium Carbonate -) 650 mg PO DAILY [facility]S [facility]CLUDE 234 BEDS AT [facility] Last Admin: 08/10/17 09:21 Dose: 650 mg Digoxin (Lanoxin -) 0.125 mg PO DAILY [facility]CLUDE 234 BEDS AT [facility] Last Admin: 08/10/17 09:22 Dose: 0.125 mg Diltiazem HCl (Cardizem Cd -) 360 mg PO DAILY [facility]CLUDE 234 BEDS AT [facility] Last Admin: 08/10/17 09:22 Dose: 360 mg Furosemide (Lasix -) 40 mg PO DAILY [facility]CLUDE 234 BEDS AT [facility] Last Admin: 08/10/17 09:22 Dose: 40 mg Guaifenesin (Diabetic Tussin Dm -) 5 ml PO Q4H PRN PRN Reason: COUGH Last Admin: 08/04/17 22:35 Dose: 5 ml IV Flush (Triple Lumen Flush) 4 ml IVPUSH PRN PRN PRN Reason: Protocol IV Flush (Picc Line Flush) 8 ml IVPUSH PRN PRN PRN Reason: Protocol Aztreonam 1 gm/ Dextrose 50 mls @ 100 mls/hr IVPB Q8H-IV BLESSING PRN Reason: Protocol Last Admin: 08/10/17 09:22 Dose: 100 mls/hr Vancomycin HCl 1,000 mg/ (Dextrose) 250 mls @ 166.667 mls/hr IVPB BID COUNTS INCLUDE 234 BEDS AT [facility] Last Admin: 08/10/17 10:33 Dose: 166.667 mls/hr Insulin Aspart (Novolog Vial Sliding Scale -) 1 vial SQ ACHS [facility] PRN Reason: Protocol Last Admin: 08/10/17 06:56 Dose: Not Given Insulin Detemir (Levemir Vial) 10 units SQ AM [facility]S [facility]CLUDE 234 BEDS AT [facility] Last Admin: 08/10/17 06:56 Dose: 10 units Metformin HCl (Glucophage -) 500 mg PO BID@0700,1630 [facility]S INCLUDE 234 BEDS AT [facility] Last Admin: 08/10/17 06:55 Dose: 500 mg Montelukast Sodium (Singulair -) 10 mg PO HS [facility]S [facility]CLUDE 234 BEDS AT [facility] Last Admin: 08/09/17 21:31 Dose: 10 mg Nebivolol (Bystolic -) 2.5 mg PO DAILY [facility]CLUDE 234 BEDS AT [facility] Last Admin: 08/10/17 10:34 Dose: 2.5 mg Nystatin (Nystatin Oral Suspension -) 500,000 units PO Q6HPO COUNTS INCLUDE 234 BEDS AT [facility] Last Admin: 08/10/17 06:56 Dose: 500,000 units Potassium Chloride (K-Dur -) 20 meq PO DAILY [facility]CLUDE 234 BEDS AT [facility] Last Admin: 08/10/17 09:22 Dose: 20 meq Prednisone (Deltasone -) 20 mg PO BID [facility]CLUDE 234 BEDS AT [facility] Last Admin: 08/10/17 09:22 Dose: 20 mg Ranitidine HCl (Zantac -) 150 mg PO DAILY [facility]CLUDE 234 BEDS AT [facility] Last Admin: 08/10/17 09:22 Dose: 150 mg Senna (Senna -) 1 tab PO DAILY [facility]CLUDE 234 BEDS AT [facility] Last Admin: 08/10/17 09:22 Dose: 1 tab Warfarin Sodium (Coumadin -) 5 mg PO DAILY@1800 [facility]S [facility]CLUDE 234 BEDS AT [facility] Last Admin: 08/09/17 17:23 Dose: Not Given - Objective Vital Signs: Vital Signs Temperature 98.2 F 08/10/17 05:55 Pulse Rate 90 08/10/17 09:22 Respiratory Rate 20 08/10/17 05:55 Blood Pressure 155/78 08/10/17 05:55 O2 Sat by Pulse Oximetry (%) 100 08/09/17 21:00 Constitutional: Yes: No Distress Eyes: Yes: WNL HENT: Yes: WNL Neck: Yes: WNL Cardiovascular: Yes: WNL Respiratory: Yes: WNL Gastrointestinal: Yes: WNL Genitourinary: Yes: WNL Musculoskeletal: Yes: Muscle Weakness Extremities: Yes: WNL Edema: Yes Edema: LLE: Trace, RLE: Trace Peripheral Pulses WNL: Yes Integumentary: Yes: WNL Wound/Incision: Yes: Clean/Dry Neurological: Yes: WNL ...Motor Strength: WNL Psychiatric: Yes: WNL Labs: CBC, BMP 08/08/17 15:00 08/08/17 06:00 INR, PTT INR 2.65 (0.82-1.09) H 08/10/17 09:00 Fibrinogen 191.0 mg/dL (238-498) L 08/05/17 17:00 Problem List - Problems (1) Asthma attack Code(s): J45.901 - UNSPECIFIED ASTHMA WITH (ACUTE) EXACERBATION (2) CHF (congestive heart failure) Code(s): I50.9 - HEART FAILURE, UNSPECIFIED (3) COPD (chronic obstructive pulmonary disease) with chronic bronchitis Code(s): J44.9 - CHRONIC OBSTRUCTIVE PULMONARY DISEASE, UNSPECIFIED (4) Mitral valve replaced Code(s): Z95.2 - PRESENCE OF PROSTHETIC HEART VALVE (5) S/P MVR (mitral valve replacement) Code(s): Z95.2 - PRESENCE OF PROSTHETIC HEART VALVE (6) Acute asthma exacerbation Code(s): J45.901 - UNSPECIFIED ASTHMA WITH (ACUTE) EXACERBATION Qualifiers: (7) Acute exacerbation of CHF (congestive heart failure) Code(s): I50.9 - HEART FAILURE, UNSPECIFIED Qualifiers: Congestive heart failure type: diastolic Qualified Code(s): I50.33 - Acute on chronic diastolic (congestive) heart failure; I50.33 - Acute on chronic diastolic (congestive) heart failure; I50.33 - Acute on chronic diastolic (congestive) heart failure; I50.33 - Acute on chronic diastolic ( congestive) heart failure (8) Fall Code(s): W19.XXXA - UNSPECIFIED FALL, INITIAL ENCOUNTER (9) History of mitral valve replacement with bioprosthetic valve Code(s): Z95.3 - PRESENCE OF XENOGENIC HEART VALVE Assessment/Plan SNF PLACEMENT PT EVAL CONTINUE CURRENT MEDS INR THERAPEUTIC ON COUMADIN
--- NOTE | 2017-08-10 11:51 | PN ---
Progress Note (short form) - Note Progress Note: Breathing feels ok. No CP or SOB. Some dry cough. No abdominal pain. Intake & Output 08/07/17 08/08/17 08/09/17 08/10/17 23:59 23:59 23:59 23:59 Intake Total 1320 1320 660 300 Balance 1320 1320 660 300 Weight 191 lb 12.8 oz 192 lb 3.2 oz 189 lb 4 oz Last Vital Signs Temp Pulse Resp BP Pulse Ox 98.2 F 90 20 155/78 100 08/10/17 05:55 08/10/17 09:22 08/10/17 05:55 08/10/17 05:55 08/09/17 21:00 Active Medications Acetaminophen (Tylenol -) 650 mg PO Q6H PRN PRN Reason: PAIN Last Admin: 08/04/17 22:35 Dose: 650 mg Budesonide (Pulmicort 0.25 Mg Nebulizer -) 1 amp NEB BID [facility] Last Admin: 08/10/17 11:22 Dose: Not Given Calcium Carbonate (Calcium Carbonate -) 650 mg PO DAILY [facility] Last Admin: 08/10/17 09:21 Dose: 650 mg Digoxin (Lanoxin -) 0.125 mg PO DAILY [facility] Last Admin: 08/10/17 09:22 Dose: 0.125 mg Diltiazem HCl (Cardizem Cd -) 360 mg PO DAILY [facility] Last Admin: 08/10/17 09:22 Dose: 360 mg Furosemide (Lasix -) 40 mg PO DAILY [facility] Last Admin: 08/10/17 09:22 Dose: 40 mg Guaifenesin (Diabetic Tussin Dm -) 5 ml PO Q4H PRN PRN Reason: COUGH Last Admin: 08/04/17 22:35 Dose: 5 ml IV Flush (Triple Lumen Flush) 4 ml IVPUSH PRN PRN PRN Reason: Protocol IV Flush (Picc Line Flush) 8 ml IVPUSH PRN PRN PRN Reason: Protocol Aztreonam 1 gm/ Dextrose 50 mls @ 100 mls/hr IVPB Q8H-IV BLESSING PRN Reason: Protocol Last Admin: 08/10/17 09:22 Dose: 100 mls/hr Vancomycin HCl 1,000 mg/ (Dextrose) 250 mls @ 166.667 mls/hr IVPB BID [facility]ESS[facility] Last Admin: 08/10/17 10:33 Dose: 166.667 mls/hr Insulin Aspart (Novolog Vial Sliding Scale -) 1 vial SQ ACHS [facility] PRN Reason: Protocol Last Admin: 08/10/17 11:33 Dose: 2 units Insulin Detemir (Levemir Vial) 10 units SQ AM [facility] Last Admin: 08/10/17 06:56 Dose: 10 units Metformin HCl (Glucophage -) 500 mg PO BID@0700,1630 [facility] Last Admin: 08/10/17 06:55 Dose: 500 mg Montelukast Sodium (Singulair -) 10 mg PO HS [facility] Last Admin: 08/09/17 21:31 Dose: 10 mg Nebivolol (Bystolic -) 2.5 mg PO DAILY [facility] Last Admin: 08/10/17 10:34 Dose: 2.5 mg Nystatin (Nystatin Oral Suspension -) 500,000 units PO Q6HPO [facility] Last Admin: 08/10/17 11:34 Dose: 500,000 units Potassium Chloride (K-Dur -) 20 meq PO DAILY [facility] Last Admin: 08/10/17 09:22 Dose: 20 meq Prednisone (Deltasone -) 20 mg PO BID [facility] Last Admin: 08/10/17 09:22 Dose: 20 mg Ranitidine HCl (Zantac -) 150 mg PO DAILY [facility] Last Admin: 08/10/17 09:22 Dose: 150 mg Senna (Senna -) 1 tab PO DAILY [facility] Last Admin: 08/10/17 09:22 Dose: 1 tab Warfarin Sodium (Coumadin -) 5 mg PO DAILY@1800 [facility] Last Admin: 08/09/17 17:23 Dose: Not Given Constitutional: Yes: NAD Eyes: Yes: WNL HENT: Yes: WNL Neck: Yes: WNL Cardiovascular: Yes: Pulse Irregular, S1, S2 Respiratory: Yes: Few scattered rhonchi, no active wheezing Gastrointestinal: Yes: Normal Bowel Sounds, Soft Extremities: Yes: WNL Edema: Yes Labs: Laboratory Results - last 24 hr 08/09/17 08/09/17 08/09/17 11:36 17:13 21:33 PT with INR INR POC Glucometer 180 191 188 Vancomycin Pre-Dose 08/10/17 08/10/17 08/10/17 06:55 09:00 09:00 PT with INR 29.90 H INR 2.65 H POC Glucometer 182 Vancomycin Pre-Dose 15.452 H* 08/10/17 11:29 PT with INR INR POC Glucometer 224 Vancomycin Pre-Dose Problem List - Problems (1) COPD (chronic obstructive pulmonary disease) with chronic bronchitis Code(s): J44.9 - CHRONIC OBSTRUCTIVE PULMONARY DISEASE, UNSPECIFIED (2) Acute asthma exacerbation Code(s): J45.901 - UNSPECIFIED ASTHMA WITH (ACUTE) EXACERBATION Qualifiers: (3) Anxiety and depression Code(s): F41.9 - ANXIETY DISORDER, UNSPECIFIED F32.9 - MAJOR DEPRESSIVE DISORDER, SINGLE EPISODE, UNSPECIFIED (4) Mitral valve replaced Code(s): Z95.2 - PRESENCE OF PROSTHETIC HEART VALVE Assessment/Plan COPD /ASTHMA EXACERBATION CHF 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
[2017-08-10] MEDS: WARFARIN NA 5 MG TABLET (UD) PO SCH (17:44)
[2017-08-10] MEDS: MONTELUKAST NA 10 MG TABLET PO SCH (21:49)
[2017-08-11] MEDS: NYSTATIN 500,000 UNITS/5 ML SUSPENSION PO SCH ×4 (00:15→17:02)
[2017-08-11] MEDS ORDERED: PT OWN MED DRAWER 7, Y5N ONE ×2 (02:35→17:33)
[2017-08-11] MEDS: AZTREONAM 1 GM in DEXTROSE 5%-WATER - 50 ML IVPB SCH ×3 (03:00→17:54)
[2017-08-11] MEDS: INSULIN SLIDING SCALE (NOVOLOG) 1 VIAL SQ SCH ×4 (06:26→22:50)
[2017-08-11] MEDS: INSULIN DETEMIR 100 UNITS/ML MDV SQ SCH (06:26)
[2017-08-11] MEDS: metFORMIN HCL 500 MG TABLET (FP) PO SCH ×2 (06:35→17:02)
[2017-08-11 07:20] LABS: MCH 31.6 pg (25.7-33.7); MCHC 33.3 g/dl (32.0-36.0); MEAN CELL VOLUME 94.9 fl (80-96); MEAN PLT VOLUME 8.3 fl (7.5-11.1); PLATELET COUNT 113 K/MM3 (134-434); WHITE BLOOD COUNT 8.2 K/mm3 (4.0-10.0)
[2017-08-11 07:33] LABS: INR 2.39 (0.82-1.09)
[2017-08-11 07:39] LABS: ALBUMIN 2.3 g/dl (3.4-5.0); ANION GAP 5 (8-16); CALCIUM 7.5 mg/dL (8.5-10.1); CO2 33 mmol/L (21-32); GLUCOSE,RANDOM 120 mg/dL (74-106)
[2017-08-11 07:44] LABS: ALK PHOS 56 U/L (45-117); BILIRUBIN,TOTAL 0.9 mg/dL (0.2-1.0); CREATININE 0.4 mg/dL (0.55-1.02); SGOT/AST 8 U/L (15-37); SGPT/ALT 14 U/L (12-78); TOT PROT 4.5 g/dl (6.4-8.2)
[2017-08-11] MEDS ORDERED: FUROSEMIDE 40 MG/4 ML INJECTABLE VIAL IVPUSH SCH (08:43)
--- NOTE | 2017-08-11 08:45 | PN ---
Progress Note, Physician - Current Medication List Current Medications: Active Medications Acetaminophen (Tylenol -) 650 mg PO Q6H PRN PRN Reason: PAIN Last Admin: 08/04/17 22:35 Dose: 650 mg Albuterol/Ipratropium (Duoneb -) 1 amp NEB QIDR [facility] Budesonide (Pulmicort 0.25 Mg Nebulizer -) 1 amp NEB BID [facility] Last Admin: 08/10/17 22:08 Dose: 1 amp Calcium Carbonate (Calcium Carbonate -) 650 mg PO DAILY [facility] Last Admin: 08/10/17 09:21 Dose: 650 mg Digoxin (Lanoxin -) 0.125 mg PO DAILY [facility] Last Admin: 08/10/17 09:22 Dose: 0.125 mg Diltiazem HCl (Cardizem Cd -) 360 mg PO DAILY [facility] Last Admin: 08/10/17 09:22 Dose: 360 mg Furosemide (Lasix -) 40 mg PO DAILY [facility] Last Admin: 08/10/17 09:22 Dose: 40 mg Furosemide (Lasix Injection -) 40 mg IVPUSH ONCE ONE Stop: 08/11/17 08:44 Guaifenesin (Diabetic Tussin Dm -) 5 ml PO Q4H PRN PRN Reason: COUGH Last Admin: 08/04/17 22:35 Dose: 5 ml IV Flush (Triple Lumen Flush) 4 ml IVPUSH PRN PRN PRN Reason: Protocol IV Flush (Picc Line Flush) 8 ml IVPUSH PRN PRN PRN Reason: Protocol Aztreonam 1 gm/ Dextrose 50 mls @ 100 mls/hr IVPB Q8H-IV BLESSING PRN Reason: Protocol Last Admin: 08/11/17 03:00 Dose: 100 mls/hr Insulin Aspart (Novolog Vial Sliding Scale -) 1 vial SQ ACHS [facility] PRN Reason: Protocol Last Admin: 08/11/17 06:26 Dose: Not Given Insulin Detemir (Levemir Vial) 10 units SQ AM [facility] Last Admin: 08/11/17 06:26 Dose: Not Given Metformin HCl (Glucophage -) 500 mg PO BID@0700,1630 [facility] Last Admin: 08/11/17 06:35 Dose: 500 mg Montelukast Sodium (Singulair -) 10 mg PO HS [facility] Last Admin: 08/10/17 21:49 Dose: 10 mg Nebivolol (Bystolic -) 2.5 mg PO DAILY [facility] Last Admin: 08/10/17 10:34 Dose: 2.5 mg Nystatin (Nystatin Oral Suspension -) 500,000 units PO Q6HPO [facility] Last Admin: 08/11/17 06:35 Dose: 500,000 units Potassium Chloride (K-Dur -) 20 meq PO DAILY [facility] Last Admin: 08/10/17 09:22 Dose: 20 meq Prednisone (Deltasone -) 20 mg PO BID [facility] Last Admin: 08/10/17 21:49 Dose: 20 mg Ranitidine HCl (Zantac -) 150 mg PO DAILY [facility] Last Admin: 08/10/17 09:22 Dose: 150 mg Senna (Senna -) 1 tab PO DAILY [facility] Last Admin: 08/10/17 09:22 Dose: 1 tab Vancomycin HCl (Vancomycin (Pre-Docked)) 1,000 mg IVPB DAILY [facility] PRN Reason: Protocol Warfarin Sodium (Coumadin -) 5 mg PO DAILY@1800 [facility] Last Admin: 08/10/17 17:44 Dose: 5 mg - Objective Vital Signs: Vital Signs Temperature 97.8 F 08/11/17 06:00 Pulse Rate 92 H 08/11/17 06:00 Respiratory Rate 20 08/11/17 06:00 Blood Pressure 140/74 08/11/17 06:00 O2 Sat by Pulse Oximetry (%) 98 08/10/17 21:00 Cardiovascular: Yes: Regular Rate and Rhythm Respiratory: Yes: Regular, CTA Bilaterally Gastrointestinal: Yes: Normal Bowel Sounds, Soft Labs: CBC, BMP 08/11/17 06:30 08/11/17 06:30 INR, PTT INR 2.39 (0.82-1.09) H 08/11/17 06:30 Fibrinogen 191.0 mg/dL (238-498) L 08/05/17 17:00 Problem List - Problems (1) Internal jugular vein thrombosis Assessment/Plan: ON COUMADIN WITH 1NR HIGH--4 NOT SURE IF SHE HAD CATHETER PREVIOUSLY VASCULAR CARDIO AND HEM CONSULT WILL DISCUSS AC Code(s): I82.C19 - ACUTE EMBOLISM AND THROMBOSIS OF UNSP INTERNAL JUGULAR VEIN (2) Retroperitoneal bleed Code(s): R58 - HEMORRHAGE, NOT ELSEWHERE CLASSIFIED Assessment/Plan - Problems (1) Fall Assessment/Plan: s/p fall ct head negative has left upper abdominal /chest wall hematoma monitor h/h on platelet will monitor for increase in size Code(s): W19.XXXA - UNSPECIFIED FALL, INITIAL ENCOUNTER (2) Internal jugular vein thrombosis Assessment/Plan: off heparin drip thrombocytopenia on couamdin right now heme FU surgical follow up Code(s): I82.C19 - ACUTE EMBOLISM AND THROMBOSIS OF UNSP INTERNAL JUGULAR VEIN (3) S/P MVR (mitral valve replacement) Assessment/Plan: monitor platelet on couamdin Code(s): Z95.2 - PRESENCE OF PROSTHETIC HEART VALVE (4) CHF (congestive heart failure) Assessment/Plan: on po lasix check cmp today on k dur supplements Code(s): I50.9 - HEART FAILURE, UNSPECIFIED (5) COPD (chronic obstructive pulmonary disease) with chronic bronchitis Assessment/Plan: prednisone taper 20mg po bid chest CT as outpatient bronchodilator mucomyst Code(s): J44.9 - CHRONIC OBSTRUCTIVE PULMONARY DISEASE, UNSPECIFIED (6) Atrial fibrillation Assessment/Plan: permanent afb cardizem off heparin drip on couamdin --MONITOR INR Code(s): I48.91 - UNSPECIFIED ATRIAL FIBRILLATION Qualifiers: Atrial fibrillation type: permanent Qualified Code(s): I48.2 - Chronic atrial fibrillation; I48.2 - Chronic atrial fibrillation; I48.2 - Chronic atrial fibrillation; I48.2 - Chronic atrial fibrillation (7) Hyperglycemia Assessment/Plan: seen by endo metformin and levemir Code(s): R73.9 - HYPERGLYCEMIA, UNSPECIFIED (8) Leukocytosis/Thrombocytopenia Assessment/Plan: seen by HEM ID F/U--R/O INFECTIOUS ETIOLOGY ON ABX (9) Anemia Assessment/Plan: Transfuse stool for occult blood cbc
[2017-08-11] MEDS: FUROSEMIDE 40 MG TABLET (FP) PO SCH (09:53)
[2017-08-11] MEDS: RANITIDINE HCL 150 MG TABLET (FP) PO SCH (09:53)
[2017-08-11] MEDS: POTASSIUM CHLORIDE TABS 20 MEQ TABLET.ER (FP) PO SCH (09:53)
[2017-08-11] MEDS: SENNOSIDES 8.6MG TABLET (FP) PO SCH (09:53)
[2017-08-11] MEDS: CALCIUM CARBONATE 650 MG TABLET PO SCH (09:54)
[2017-08-11] MEDS: DIGOXIN 0.125 MG TABLET (FP) PO SCH (09:55)
[2017-08-11] MEDS: predniSONE 20 MG TABLET (UD) PO SCH ×2 (09:55→22:52)
[2017-08-11] MEDS: VANCOMYCIN 1 GRAM (PRE-DOCKED) 1,000 MG/250 ML BAG IVPB SCH (10:11)
[2017-08-11] MEDS: NEBIVOLOL 2.5 MG TABLET (FP) PO SCH (10:30)
--- NOTE | 2017-08-11 10:37 | PN ---
Progress Note, Physician History of Present Illness: pulmonary alert,feeling better,less congested - Current Medication List Current Medications: Active Medications Acetaminophen (Tylenol -) 650 mg PO Q6H PRN PRN Reason: PAIN Last Admin: 08/04/17 22:35 Dose: 650 mg Albuterol/Ipratropium (Duoneb -) 1 amp NEB QIDR [facility] Budesonide (Pulmicort 0.25 Mg Nebulizer -) 1 amp NEB BID [facility] Last Admin: 08/10/17 22:08 Dose: 1 amp Calcium Carbonate (Calcium Carbonate -) 650 mg PO DAILY [facility] Last Admin: 08/11/17 09:54 Dose: 650 mg Digoxin (Lanoxin -) 0.125 mg PO DAILY [facility] Last Admin: 08/11/17 09:55 Dose: 0.125 mg Diltiazem HCl (Cardizem Cd -) 360 mg PO DAILY [facility] Last Admin: 08/11/17 09:53 Dose: 360 mg Furosemide (Lasix -) 40 mg PO DAILY [facility] Last Admin: 08/11/17 09:53 Dose: Not Given Furosemide (Lasix Injection -) 40 mg IVPUSH [employer] [facility] Stop: 08/11/17 18:00 Guaifenesin (Diabetic Tussin Dm -) 5 ml PO Q4H PRN PRN Reason: COUGH Last Admin: 08/04/17 22:35 Dose: 5 ml IV Flush (Triple Lumen Flush) 4 ml IVPUSH PRN PRN PRN Reason: Protocol IV Flush (Picc Line Flush) 8 ml IVPUSH PRN PRN PRN Reason: Protocol Aztreonam 1 gm/ Dextrose 50 mls @ 100 mls/hr IVPB Q8H-IV BLESSING PRN Reason: Protocol Last Admin: 08/11/17 09:52 Dose: 100 mls/hr Insulin Aspart (Novolog Vial Sliding Scale -) 1 vial SQ ACHS [facility] PRN Reason: Protocol Last Admin: 08/11/17 06:26 Dose: Not Given Insulin Detemir (Levemir Vial) 10 units SQ AM [facility] Last Admin: 08/11/17 06:26 Dose: Not Given Metformin HCl (Glucophage -) 500 mg PO BID@0700,1630 [facility] Last Admin: 08/11/17 06:35 Dose: 500 mg Montelukast Sodium (Singulair -) 10 mg PO HS [facility] Last Admin: 08/10/17 21:49 Dose: 10 mg Nebivolol (Bystolic -) 2.5 mg PO DAILY [facility] Last Admin: 08/10/17 10:34 Dose: 2.5 mg Nystatin (Nystatin Oral Suspension -) 500,000 units PO Q6HPO [facility] Last Admin: 08/11/17 06:35 Dose: 500,000 units Potassium Chloride (K-Dur -) 20 meq PO DAILY [facility] Last Admin: 08/11/17 09:53 Dose: 20 meq Prednisone (Deltasone -) 20 mg PO BID [facility] Last Admin: 08/11/17 09:55 Dose: 20 mg Ranitidine HCl (Zantac -) 150 mg PO DAILY [facility] Last Admin: 08/11/17 09:53 Dose: 150 mg Senna (Senna -) 1 tab PO DAILY [facility] Last Admin: 08/11/17 09:53 Dose: 1 tab Vancomycin HCl (Vancomycin (Pre-Docked)) 1,000 mg IVPB DAILY [facility] PRN Reason: Protocol Last Admin: 08/11/17 10:11 Dose: 1,000 mg Warfarin Sodium (Coumadin -) 5 mg PO DAILY@1800 [facility] Last Admin: 08/10/17 17:44 Dose: 5 mg - Objective Vital Signs: Vital Signs Temperature 97.8 F 08/11/17 06:00 Pulse Rate 91 H 08/11/17 09:55 Respiratory Rate 20 08/11/17 06:00 Blood Pressure 140/74 08/11/17 06:00 O2 Sat by Pulse Oximetry (%) 98 08/10/17 21:00 Constitutional: Yes: Well Nourished, Calm Eyes: Yes: WNL HENT: Yes: WNL Neck: Yes: WNL Cardiovascular: Yes: Pulse Irregular, S1, S2 Respiratory: Yes: Rhonchi (scattered mello rhonchi) Gastrointestinal: Yes: Normal Bowel Sounds, Soft Extremities: Yes: WNL Edema: Yes Labs: CBC, BMP 08/11/17 06:30 08/11/17 06:30 INR, PTT INR 2.39 (0.82-1.09) H 08/11/17 06:30 Fibrinogen 191.0 mg/dL (238-498) L 08/05/17 17:00 Assessment/Plan IMP COPD /ASTHMA EXACERBATION IMPROVING CHF MVR RECENT/NL CORONARIES PERMANENT AF H/O VTE HTN/PULMONARY HTN LLL OPACITY LIKELY PARTIAL ATELECTASIS LLL LEFT IJ PHLEBITIS ANEMIA THROMBOCYTOPENIA IMPROVING HEMATOMA O2 BRONCHODILATORS A/C DIURETICS PREDNISONE BRONCHODILATORS CHEST PT MUCOMYST F/U CHEST CT OUTPATIENT IF NO CHANGE LLL CONSOLIDATION CONSIDER BRONCHOSCOPY PULMONARY REHAB POST DISCHARGE MONITOR H+H,PLTS DR YE Problem List - Problems (1) COPD (chronic obstructive pulmonary disease) with chronic bronchitis Code(s): J44.9 - CHRONIC OBSTRUCTIVE PULMONARY DISEASE, UNSPECIFIED (2) Acute asthma exacerbation Code(s): J45.901 - UNSPECIFIED ASTHMA WITH (ACUTE) EXACERBATION Qualifiers: (3) Anxiety and depression Code(s): F41.9 - ANXIETY DISORDER, UNSPECIFIED F32.9 - MAJOR DEPRESSIVE DISORDER, SINGLE EPISODE, UNSPECIFIED (4) Mitral valve replaced Code(s): Z95.2 - PRESENCE OF PROSTHETIC HEART VALVE
--- NOTE | 2017-08-11 11:04 | PN ---
Progress Note (short form) - Note Progress Note: feels improved, nonproductive cough resting comfortably in bed no diarrhea no dysuria Vital Signs Period Temp Pulse Resp BP Sys/Urrutia Pulse Ox Last 24 Hr 97.8 F-98.2 F 79-97 20-20 120-142/60-77 98 cor-rrr lungs bilateral rhonchi abd soft,nt ext no edema ecchymoses unchanged picc no erythema sternum well healed CBC, BMP 08/11/17 06:30 08/11/17 06:30 vanco 15.4 a/p concern for pneumonia/bronchitis- infection as causing the persistent low platelets and fibrinogen- hematoma and hgb now seem stable given ampicillin allergy, will avoid levaquin as she is on coumadin, day #6/7 vanco/azactam- d/c antibiotics in am s/p MVR 07/01 thrush- on nystatin- asked her to remove her dentures and use swish and swallow thrombocytopenia improved please encourage incentive spirometry Problem List - Problems (1) Acute exacerbation of CHF (congestive heart failure) Code(s): I50.9 - HEART FAILURE, UNSPECIFIED Qualifiers: Congestive heart failure type: diastolic Qualified Code(s): I50.33 - Acute on chronic diastolic (congestive) heart failure; I50.33 - Acute on chronic diastolic (congestive) heart failure; I50.33 - Acute on chronic diastolic (congestive) heart failure; I50.33 - Acute on chronic diastolic ( congestive) heart failure (2) COPD exacerbation Code(s): J44.1 - CHRONIC OBSTRUCTIVE PULMONARY DISEASE W (ACUTE) EXACERBATION (3) S/P MVR (mitral valve replacement) Code(s): Z95.2 - PRESENCE OF PROSTHETIC HEART VALVE
--- NOTE | 2017-08-11 11:09 | PN ---
Progress Note, Physician History of Present Illness: seen and examined today in nad. states her sob is improving. has not noticed any bleeding. - Current Medication List Current Medications: Active Medications Acetaminophen (Tylenol -) 650 mg PO Q6H PRN PRN Reason: PAIN Last Admin: 08/04/17 22:35 Dose: 650 mg Albuterol/Ipratropium (Duoneb -) 1 amp NEB QIDR [facility] Budesonide (Pulmicort 0.25 Mg Nebulizer -) 1 amp NEB BID [facility] Last Admin: 08/10/17 22:08 Dose: 1 amp Calcium Carbonate (Calcium Carbonate -) 650 mg PO DAILY [facility] Last Admin: 08/11/17 09:54 Dose: 650 mg Digoxin (Lanoxin -) 0.125 mg PO DAILY [facility] Last Admin: 08/11/17 09:55 Dose: 0.125 mg Diltiazem HCl (Cardizem Cd -) 360 mg PO DAILY [facility] Last Admin: 08/11/17 09:53 Dose: 360 mg Furosemide (Lasix -) 40 mg PO DAILY [facility] Last Admin: 08/11/17 09:53 Dose: Not Given Furosemide (Lasix Injection -) 40 mg IVPUSH [employer] [facility] Stop: 08/11/17 18:00 Guaifenesin (Diabetic Tussin Dm -) 5 ml PO Q4H PRN PRN Reason: COUGH Last Admin: 08/04/17 22:35 Dose: 5 ml IV Flush (Triple Lumen Flush) 4 ml IVPUSH PRN PRN PRN Reason: Protocol IV Flush (Picc Line Flush) 8 ml IVPUSH PRN PRN PRN Reason: Protocol Aztreonam 1 gm/ Dextrose 50 mls @ 100 mls/hr IVPB Q8H-IV BLESS[facility] PRN Reason: Protocol Last Admin: 08/11/17 09:52 Dose: 100 mls/hr Insulin Aspart (Novolog Vial Sliding Scale -) 1 vial SQ ACHS [facility] PRN Reason: Protocol Last Admin: 08/11/17 06:26 Dose: Not Given Insulin Detemir (Levemir Vial) 10 units SQ AM [facility] Last Admin: 08/11/17 06:26 Dose: Not Given Metformin HCl (Glucophage -) 500 mg PO BID@0700,1630 [facility] Last Admin: 08/11/17 06:35 Dose: 500 mg Montelukast Sodium (Singulair -) 10 mg PO HS [facility] Last Admin: 08/10/17 21:49 Dose: 10 mg Nebivolol (Bystolic -) 2.5 mg PO DAILY [facility] Last Admin: 08/10/17 10:34 Dose: 2.5 mg Nystatin (Nystatin Oral Suspension -) 500,000 units PO Q6HPO [facility] Last Admin: 08/11/17 06:35 Dose: 500,000 units Potassium Chloride (K-Dur -) 20 meq PO DAILY [facility] Last Admin: 08/11/17 09:53 Dose: 20 meq Prednisone (Deltasone -) 20 mg PO BID [facility] Last Admin: 08/11/17 09:55 Dose: 20 mg Ranitidine HCl (Zantac -) 150 mg PO DAILY [facility] Last Admin: 08/11/17 09:53 Dose: 150 mg Senna (Senna -) 1 tab PO DAILY [facility] Last Admin: 08/11/17 09:53 Dose: 1 tab Vancomycin HCl (Vancomycin (Pre-Docked)) 1,000 mg IVPB DAILY [facility] PRN Reason: Protocol Last Admin: 08/11/17 10:11 Dose: 1,000 mg Warfarin Sodium (Coumadin -) 5 mg PO DAILY@1800 [facility] Last Admin: 08/10/17 17:44 Dose: 5 mg - Objective Vital Signs: Vital Signs Temperature 97.8 F 08/11/17 06:00 Pulse Rate 91 H 08/11/17 09:55 Respiratory Rate 20 08/11/17 06:00 Blood Pressure 140/74 08/11/17 06:00 O2 Sat by Pulse Oximetry (%) 98 08/10/17 21:00 Constitutional: Yes: No Distress, Calm Eyes: Yes: Conjunctiva Clear, EOM Intact, PERRL HENT: Yes: Atraumatic, Normocephalic Neck: Yes: Supple, Trachea Midline Cardiovascular: Yes: Pulse Irregular, Murmur, S1, S2. No: Regular Rate and Rhythm, Bradycardia, Tachycardia, Bruit, JVD, Gallop, Rub, S3, S4, Varicosities Respiratory: Yes: Regular, Rhonchi, Wheezes. No: On Nasal O2, Rales, SOB Gastrointestinal: Yes: Normal Bowel Sounds, Soft. No: Distention, Tenderness Musculoskeletal: Yes: Other (ecchymosis L flank) Edema: No Peripheral Pulses WNL: Yes Peripheral Pulses: Left Doralis Pedis: 2+, Right Dorsalis Pedis: 2+ Neurological: Yes: Alert, Oriented Psychiatric: Yes: Alert, Oriented Labs: CBC, BMP 08/11/17 06:30 08/11/17 06:30 INR, PTT INR 2.39 (0.82-1.09) H 08/11/17 06:30 Fibrinogen 191.0 mg/dL (238-498) L 08/05/17 17:00 - ....Imaging Chest X-ray: Report Reviewed, Image Reviewed EKG: Report Reviewed, Image Reviewed Other: Report Reviewed, Image Reviewed (tele-AFib, HR overall controlled, occ episodes of RVR, occ PVC) Assessment/Plan Bio MVR 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 COPD Abdominal wall hematoma s/p fall Anemia Thrombocytopenia REC: INR therapeutic on coumadin Platelets 113 today, trending up H/H drifting down, she is ordered for 1 unit PRBCs today Currently euvolemic She will receive 1 dose IV Lasix after PRBCs then resume her usual po Lasix regimen HR adequately controlled, cont cardizem and digoxin Abx as per ID. Pulmonary following, SOB improving Hematology following Ok to start discharging planning from a cardiac standpoint
[2017-08-11] MEDS: BUDESONIDE 0.25 MG/2ML INH SUSP VIAL NEB SCH ×2 (11:10→21:54)
[2017-08-11] MEDS: ALBUTEROL SO4 2.5/IPRATROPIUM 0.5 INH SOL 3 ML VIAL.NEB. NEB SCH ×3 (11:10→23:06)
[2017-08-11] MEDS: WARFARIN NA 5 MG TABLET (UD) PO SCH (17:02)
[2017-08-11] MEDS: MONTELUKAST NA 10 MG TABLET PO SCH (22:52)
--- NOTE | 2017-08-11 22:52 | PN ---
Progress Note (short form) - Note Progress Note: Patient seen and examined Denies any complaints Last Vital Signs Temp Pulse Resp BP Pulse Ox 98.2 F 88 20 113/65 98 08/11/17 14:39 08/11/17 14:39 08/11/17 14:39 08/11/17 14:39 08/11/17 10:40 Cor: RSR, No murmurs, No gallops Lungs: Clear to P&A Abd: Soft, Normal bowel sounds, Large Lt. flank hematoma Abnormal Lab Results 08/11/17 08/11/17 08/11/17 06:30 06:30 06:30 RBC 2.65 L Hgb 8.4 L Hct 25.2 L RDW 19.0 H Plt Count 113 L D PT with INR 27.00 H INR 2.39 H Carbon Dioxide 33 H Anion Gap 5 L BUN 24 H Creatinine 0.4 L Random Glucose 120 H Calcium 7.5 L AST 8 L Total Protein 4.5 L Albumin 2.3 L Crossmatch 08/11/17 10:00 RBC Hgb Hct RDW Plt Count PT with INR INR Carbon Dioxide Anion Gap BUN Creatinine Random Glucose Calcium AST Total Protein Albumin Crossmatch See Detail Home Medication List Medication Instructions Recorded Confirmed Type Acetaminophen [Tylenol] 650 mg PO BID 07/12/17 07/12/17 History Albuterol 2.5/Ipratropium 0.5 1 neb NEB Q4H 07/12/17 07/12/17 History [Duoneb -] Aspirin [ASA -] 81 mg PO DAILY 07/12/17 07/12/17 History Budesonide [Pulmicort Flexhaler] 90 mcg IH BID 07/12/17 07/12/17 History Famotidine [Pepcid] 20 mg PO DAILY 07/12/17 07/12/17 History Furosemide [Lasix] 40 mg PO DAILY 07/12/17 07/12/17 History Potassium Chloride 20 meq PO DAILY 07/12/17 07/12/17 History Sennosides [Senna] 17.2 mg PO DAILY 07/12/17 07/12/17 History Active Medications Generic Name Dose Route Start Last Admin Trade Name Freq PRN Reason Stop Dose Admin Acetaminophen 650 mg 07/14/17 04:07 08/04/17 22:35 Tylenol - PO 650 mg Q6H PRN Administration PAIN Albuterol/Ipratropium 1 amp 08/11/17 12:00 08/11/17 23:06 Duoneb - NEB 1 amp QIDR BLESSING Administration Budesonide 1 amp 07/12/17 11:00 08/11/17 21:54 Pulmicort 0.25 Mg Nebulizer - NEB 1 amp BID BLESSING Administration Calcium Carbonate 650 mg 07/13/17 14:15 08/11/17 09:54 Calcium Carbonate - PO 650 mg DAILY BLESSING Administration Digoxin 0.125 mg 07/24/17 10:00 08/11/17 09:55 Lanoxin - PO 0.125 mg DAILY BLESSING Administration Diltiazem HCl 360 mg 07/20/17 10:00 08/11/17 09:53 Cardizem Cd - PO 360 mg DAILY BLESSING Administration Furosemide 40 mg 07/14/17 10:00 08/11/17 09:53 Lasix - PO Not Given DAILY BLESSING Guaifenesin 5 ml 07/13/17 09:54 08/04/17 22:35 Diabetic Tussin Dm - PO 5 ml Q4H PRN Administration COUGH IV Flush 4 ml 08/01/17 13:14 Triple Lumen Flush IVPUSH PRN PRN Protocol IV Flush 8 ml 08/01/17 14:35 Picc Line Flush IVPUSH PRN PRN Protocol Aztreonam 1 gm/ Dextrose 50 mls @ 100 mls/hr 08/05/17 15:30 08/11/17 17:54 IVPB 100 mls/hr Q8H-IV BLESSING Administration Protocol Insulin Aspart 1 vial 07/14/17 07:00 08/11/17 22:50 Novolog Vial Sliding Scale - SQ Not Given ACHS [facility] Protocol Insulin Detemir 10 units 07/17/17 07:00 08/11/17 06:26 Levemir Vial SQ Not Given AM BLESSING Metformin HCl 500 mg 07/21/17 07:00 08/11/17 17:02 Glucophage - PO 500 mg BID@0700,1630 BLESSING Administration Montelukast Sodium 10 mg 07/22/17 22:00 08/11/17 22:52 Singulair - PO 10 mg HS BLESSING Administration Nebivolol 2.5 mg 07/24/17 10:00 08/11/17 10:30 Bystolic - PO 2.5 mg DAILY BLESSING Administration Nystatin 500,000 units 08/05/17 18:00 08/11/17 17:02 Nystatin Oral Suspension - PO 500,000 units Q6HPO BLESSING Administration Potassium Chloride 20 meq 07/12/17 10:00 08/11/17 09:53 K-Dur - PO 20 meq DAILY BLESSING Administration Prednisone 20 mg 08/08/17 10:30 08/11/17 22:52 Deltasone - PO 20 mg BID BLESSING Administration Ranitidine HCl 150 mg 07/12/17 10:00 08/11/17 09:53 Zantac - PO 150 mg DAILY BLESSING Administration Senna 1 tab 07/12/17 10:00 08/11/17 09:53 Senna - PO 1 tab DAILY BLESSING Administration Vancomycin HCl 1,000 mg 08/11/17 10:00 08/11/17 10:11 Vancomycin (Pre-Docked) IVPB 1,000 mg DAILY BLESSING Administration Protocol Warfarin Sodium 5 mg 08/08/17 18:00 08/11/17 17:02 Coumadin - PO 5 mg DAILY@1800 BLESSING Administration a/p Left IJ Thrombus AFIb MVR bioprosthetic--07/01 CHF COPD Anemia 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 flank hematoma, s/p fall Hemoglobin stable. Do not suspect active bleeding thrombocytopenia --- timing coincides with fall/hematoma ? consumption from hematoma Unlikely HIT given time frame ---suspect false + hit. will await serotonin release assay Lt. ij and axillary thrombus--worsened due to a/c interruption? due to hematoma now therapeutic on coumadin monitor INR
[2017-08-12] MEDS: NYSTATIN 500,000 UNITS/5 ML SUSPENSION PO SCH ×5 (01:00→23:55)
[2017-08-12] MEDS ORDERED: PT OWN MED DRAWER 7, Y5N ONE ×2 (04:49→10:41)
[2017-08-12] MEDS: AZTREONAM 1 GM in DEXTROSE 5%-WATER - 50 ML IVPB SCH ×2 (04:50→10:56)
[2017-08-12] MEDS: ALBUTEROL SO4 2.5/IPRATROPIUM 0.5 INH SOL 3 ML VIAL.NEB. NEB SCH ×4 (06:27→23:00)
[2017-08-12] MEDS: INSULIN SLIDING SCALE (NOVOLOG) 1 VIAL SQ SCH ×4 (07:07→21:44)
[2017-08-12] MEDS: INSULIN DETEMIR 100 UNITS/ML MDV SQ SCH (07:07)
[2017-08-12] MEDS: metFORMIN HCL 500 MG TABLET (FP) PO SCH ×2 (07:07→17:51)
[2017-08-12 07:13] LABS: MCH 31.3 pg (25.7-33.7); MCHC 33.2 g/dl (32.0-36.0); MEAN CELL VOLUME 94.3 fl (80-96); MEAN PLT VOLUME 7.8 fl (7.5-11.1); PLATELET COUNT 112 K/MM3 (134-434); RDW 18.9 % (11.6-15.6); WHITE BLOOD COUNT 10.5 K/mm3 (4.0-10.0)
[2017-08-12 07:42] LABS: ALBUMIN 2.6 g/dl (3.4-5.0); ALK PHOS 55 U/L (45-117); ANION GAP 10 (8-16); BILIRUBIN,TOTAL 0.7 mg/dL (0.2-1.0); CALCIUM 7.8 mg/dL (8.5-10.1); CO2 28 mmol/L (21-32); CREATININE 0.5 mg/dL (0.55-1.02); GLUCOSE,RANDOM 205 mg/dL (74-106); SGOT/AST 10 U/L (15-37); SGPT/ALT 13 U/L (12-78); TOT PROT 4.5 g/dl (6.4-8.2)
--- NOTE | 2017-08-12 08:12 | PN ---
Progress Note, Physician History of Present Illness: C/O WEAKNESS NO CP FEELS BETTER - Current Medication List Current Medications: Active Medications Acetaminophen (Tylenol -) 650 mg PO Q6H PRN PRN Reason: PAIN Last Admin: 08/04/17 22:35 Dose: 650 mg Albuterol/Ipratropium (Duoneb -) 1 amp NEB QIDR [facility] Last Admin: 08/12/17 06:27 Dose: 1 amp Budesonide (Pulmicort 0.25 Mg Nebulizer -) 1 amp NEB BID [facility] Last Admin: 08/11/17 21:54 Dose: 1 amp Calcium Carbonate (Calcium Carbonate -) 650 mg PO DAILY [facility] Last Admin: 08/11/17 09:54 Dose: 650 mg Digoxin (Lanoxin -) 0.125 mg PO DAILY [facility] Last Admin: 08/11/17 09:55 Dose: 0.125 mg Diltiazem HCl (Cardizem Cd -) 360 mg PO DAILY [facility] Last Admin: 08/11/17 09:53 Dose: 360 mg Furosemide (Lasix -) 40 mg PO DAILY [facility] Last Admin: 08/11/17 09:53 Dose: Not Given Guaifenesin (Diabetic Tussin Dm -) 5 ml PO Q4H PRN PRN Reason: COUGH Last Admin: 08/04/17 22:35 Dose: 5 ml IV Flush (Triple Lumen Flush) 4 ml IVPUSH PRN PRN PRN Reason: Protocol IV Flush (Picc Line Flush) 8 ml IVPUSH PRN PRN PRN Reason: Protocol Aztreonam 1 gm/ Dextrose 50 mls @ 100 mls/hr IVPB Q8H-IV BLESSING PRN Reason: Protocol Last Admin: 08/12/17 04:50 Dose: 100 mls/hr Insulin Aspart (Novolog Vial Sliding Scale -) 1 vial SQ ACHS [facility]ESS[facility] PRN Reason: Protocol Last Admin: 08/12/17 07:07 Dose: 2 units Insulin Detemir (Levemir Vial) 10 units SQ AM [facility] Last Admin: 08/12/17 07:07 Dose: 10 units Metformin HCl (Glucophage -) 500 mg PO BID@0700,1630 [facility] Last Admin: 08/12/17 07:07 Dose: 500 mg Montelukast Sodium (Singulair -) 10 mg PO HS [facility] Last Admin: 08/11/17 22:52 Dose: 10 mg Nebivolol (Bystolic -) 2.5 mg PO DAILY [facility] Last Admin: 08/11/17 10:30 Dose: 2.5 mg Nystatin (Nystatin Oral Suspension -) 500,000 units PO Q6HPO [facility] Last Admin: 08/12/17 07:06 Dose: 500,000 units Potassium Chloride (K-Dur -) 20 meq PO DAILY [facility] Last Admin: 08/11/17 09:53 Dose: 20 meq Prednisone (Deltasone -) 20 mg PO BID [facility] Last Admin: 08/11/17 22:52 Dose: 20 mg Ranitidine HCl (Zantac -) 150 mg PO DAILY [facility] Last Admin: 08/11/17 09:53 Dose: 150 mg Senna (Senna -) 1 tab PO DAILY [facility] Last Admin: 08/11/17 09:53 Dose: 1 tab Vancomycin HCl (Vancomycin (Pre-Docked)) 1,000 mg IVPB DAILY [facility] PRN Reason: Protocol Last Admin: 08/11/17 10:11 Dose: 1,000 mg Warfarin Sodium (Coumadin -) 5 mg PO DAILY@1800 [facility] Last Admin: 08/11/17 17:02 Dose: 5 mg - Objective Vital Signs: Vital Signs Temperature 98.1 F 08/12/17 06:00 Pulse Rate 90 08/12/17 06:00 Respiratory Rate 20 08/12/17 06:00 Blood Pressure 137/68 08/12/17 06:00 O2 Sat by Pulse Oximetry (%) 98 08/11/17 21:00 Cardiovascular: Yes: S1, S2 Respiratory: Yes: Rhonchi Gastrointestinal: Yes: Normal Bowel Sounds, Soft Labs: CBC, BMP 08/12/17 06:40 08/12/17 06:40 INR, PTT INR 2.39 (0.82-1.09) H 08/11/17 06:30 Fibrinogen 191.0 mg/dL (238-498) L 08/05/17 17:00 Problem List - Problems (1) Internal jugular vein thrombosis Code(s): I82.C19 - ACUTE EMBOLISM AND THROMBOSIS OF UNSP INTERNAL JUGULAR VEIN (2) Retroperitoneal bleed Code(s): R58 - HEMORRHAGE, NOT ELSEWHERE CLASSIFIED Assessment/Plan - Problems (1) Fall Assessment/Plan: s/p fall ct head negative has left upper abdominal /chest wall hematoma monitor h/h Code(s): W19.XXXA - UNSPECIFIED FALL, INITIAL ENCOUNTER (2) Internal jugular vein thrombosis Assessment/Plan: off heparin drip thrombocytopenia on couamdin right now heme FU surgical follow up Code(s): I82.C19 - ACUTE EMBOLISM AND THROMBOSIS OF UNSP INTERNAL JUGULAR VEIN (3) S/P MVR (mitral valve replacement) Assessment/Plan: monitor platelet on couamdin Code(s): Z95.2 - PRESENCE OF PROSTHETIC HEART VALVE (4) CHF (congestive heart failure) Assessment/Plan: on po lasix check cmp today on k dur supplements Code(s): I50.9 - HEART FAILURE, UNSPECIFIED (5) COPD (chronic obstructive pulmonary disease) with chronic bronchitis Assessment/Plan: prednisone taper 20mg po bid chest CT as outpatient bronchodilator mucomyst Code(s): J44.9 - CHRONIC OBSTRUCTIVE PULMONARY DISEASE, UNSPECIFIED (6) Atrial fibrillation Assessment/Plan: permanent afb cardizem off heparin drip on couamdin --MONITOR INR Code(s): I48.91 - UNSPECIFIED ATRIAL FIBRILLATION Qualifiers: Atrial fibrillation type: permanent Qualified Code(s): I48.2 - Chronic atrial fibrillation; I48.2 - Chronic atrial fibrillation; I48.2 - Chronic atrial fibrillation; I48.2 - Chronic atrial fibrillation (7) Hyperglycemia Assessment/Plan: seen by endo metformin and levemir Code(s): R73.9 - HYPERGLYCEMIA, UNSPECIFIED (8) Leukocytosis/Thrombocytopenia Assessment/Plan: seen by HEM ID F/U--R/O INFECTIOUS ETIOLOGY ON ABX (9) Anemia Assessment/Plan: Transfuse stool for occult blood cbc
[2017-08-12 08:30] LABS: INR 2.54 (0.82-1.09); PROTHROMBIN TIME (PATIENT) 28.7 SEC (9.98-11.88)
--- NOTE | 2017-08-12 10:01 | PN ---
Progress Note, Physician Chief Complaint: sitting comfortably, no distress - Current Medication List Current Medications: Active Medications Acetaminophen (Tylenol -) 650 mg PO Q6H PRN PRN Reason: PAIN Last Admin: 08/04/17 22:35 Dose: 650 mg Albuterol/Ipratropium (Duoneb -) 1 amp NEB QIDR [facility] Last Admin: 08/12/17 06:27 Dose: 1 amp Budesonide (Pulmicort 0.25 Mg Nebulizer -) 1 amp NEB BID [facility] Last Admin: 08/11/17 21:54 Dose: 1 amp Calcium Carbonate (Calcium Carbonate -) 650 mg PO DAILY [facility] Last Admin: 08/11/17 09:54 Dose: 650 mg Digoxin (Lanoxin -) 0.125 mg PO DAILY [facility] Last Admin: 08/11/17 09:55 Dose: 0.125 mg Diltiazem HCl (Cardizem Cd -) 360 mg PO DAILY [facility] Last Admin: 08/11/17 09:53 Dose: 360 mg Furosemide (Lasix -) 40 mg PO DAILY [facility] Last Admin: 08/11/17 09:53 Dose: Not Given Guaifenesin (Diabetic Tussin Dm -) 5 ml PO Q4H PRN PRN Reason: COUGH Last Admin: 08/04/17 22:35 Dose: 5 ml IV Flush (Triple Lumen Flush) 4 ml IVPUSH PRN PRN PRN Reason: Protocol IV Flush (Picc Line Flush) 8 ml IVPUSH PRN PRN PRN Reason: Protocol Aztreonam 1 gm/ Dextrose 50 mls @ 100 mls/hr IVPB Q8H-IV BLESSING PRN Reason: Protocol Last Admin: 08/12/17 04:50 Dose: 100 mls/hr Insulin Aspart (Novolog Vial Sliding Scale -) 1 vial SQ ACHS [facility] PRN Reason: Protocol Last Admin: 08/12/17 07:07 Dose: 2 units Insulin Detemir (Levemir Vial) 10 units SQ AM [facility] Last Admin: 08/12/17 07:07 Dose: 10 units Metformin HCl (Glucophage -) 500 mg PO BID@0700,1630 [facility] Last Admin: 08/12/17 07:07 Dose: 500 mg Montelukast Sodium (Singulair -) 10 mg PO HS [facility] Last Admin: 08/11/17 22:52 Dose: 10 mg Nebivolol (Bystolic -) 2.5 mg PO DAILY [facility] Last Admin: 08/11/17 10:30 Dose: 2.5 mg Nystatin (Nystatin Oral Suspension -) 500,000 units PO Q6HPO [facility] Last Admin: 08/12/17 07:06 Dose: 500,000 units Potassium Chloride (K-Dur -) 20 meq PO DAILY [facility] Last Admin: 08/11/17 09:53 Dose: 20 meq Prednisone (Deltasone -) 20 mg PO BID [facility] Last Admin: 08/11/17 22:52 Dose: 20 mg Ranitidine HCl (Zantac -) 150 mg PO DAILY [facility] Last Admin: 08/11/17 09:53 Dose: 150 mg Senna (Senna -) 1 tab PO DAILY [facility] Last Admin: 08/11/17 09:53 Dose: 1 tab Vancomycin HCl (Vancomycin (Pre-Docked)) 1,000 mg IVPB DAILY [facility] PRN Reason: Protocol Last Admin: 08/11/17 10:11 Dose: 1,000 mg Warfarin Sodium (Coumadin -) 5 mg PO DAILY@1800 [facility] Last Admin: 08/11/17 17:02 Dose: 5 mg - Objective Vital Signs: Vital Signs Temperature 98.1 F 08/12/17 06:00 Pulse Rate 90 08/12/17 06:00 Respiratory Rate 20 08/12/17 06:00 Blood Pressure 137/68 08/12/17 06:00 O2 Sat by Pulse Oximetry (%) 98 08/11/17 21:00 Constitutional: Yes: No Distress Cardiovascular: Yes: Pulse Irregular Respiratory: Yes: Other (scattered rhonchi) Gastrointestinal: Yes: Soft Edema: No Neurological: Yes: Alert, Oriented Labs: CBC, BMP 08/12/17 06:40 08/12/17 06:40 INR, PTT INR 2.54 (0.82-1.09) H 08/12/17 06:30 Fibrinogen 191.0 mg/dL (238-498) L 08/05/17 17:00 Laboratory Tests 08/05/17 08/12/17 08/12/17 06:00 06:30 06:40 WBC 10.5 H Hgb 9.2 L Plt Count 112 L INR 2.54 H Potassium Creatinine Hep-Induced Plt Ab Rapid 1.310 H 08/12/17 06:40 WBC Hgb Plt Count INR Potassium 4.3 Creatinine 0.5 L D Hep-Induced Plt Ab Rapid - ....Imaging EKG: Image Reviewed Assessment/Plan Assessment/Plan Bio MVR 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 COPD Abdominal wall hematoma s/p fall Anemia Thrombocytopenia REC: INR therapeutic on coumadin Platelets trending up HR adequately controlled, cont cardizem , digoxin and Bystolic Abx as per ID. Pulmonary following, SOB improving Hematology following Ok to start discharging planning from a cardiac standpoint
[2017-08-12] MEDS: BUDESONIDE 0.25 MG/2ML INH SUSP VIAL NEB SCH ×2 (10:50→21:55)
[2017-08-12] MEDS: VANCOMYCIN 1 GRAM (PRE-DOCKED) 1,000 MG/250 ML BAG IVPB SCH (10:55)
--- NOTE | 2017-08-12 10:56 | PN ---
Progress Note, Physician History of Present Illness: PULMONARY ALERT,NAD,OOB-CHAIR,DYSPNEA IMPROVING - Current Medication List Current Medications: Active Medications Acetaminophen (Tylenol -) 650 mg PO Q6H PRN PRN Reason: PAIN Last Admin: 08/04/17 22:35 Dose: 650 mg Albuterol/Ipratropium (Duoneb -) 1 amp NEB QIDR [facility] Last Admin: 08/12/17 06:27 Dose: 1 amp Budesonide (Pulmicort 0.25 Mg Nebulizer -) 1 amp NEB BID [facility] Last Admin: 08/11/17 21:54 Dose: 1 amp Calcium Carbonate (Calcium Carbonate -) 650 mg PO DAILY [facility] Last Admin: 08/11/17 09:54 Dose: 650 mg Digoxin (Lanoxin -) 0.125 mg PO DAILY [facility] Last Admin: 08/11/17 09:55 Dose: 0.125 mg Diltiazem HCl (Cardizem Cd -) 360 mg PO DAILY [facility] Last Admin: 08/11/17 09:53 Dose: 360 mg Furosemide (Lasix -) 40 mg PO DAILY [facility] Last Admin: 08/11/17 09:53 Dose: Not Given Guaifenesin (Diabetic Tussin Dm -) 5 ml PO Q4H PRN PRN Reason: COUGH Last Admin: 08/04/17 22:35 Dose: 5 ml IV Flush (Triple Lumen Flush) 4 ml IVPUSH PRN PRN PRN Reason: Protocol IV Flush (Picc Line Flush) 8 ml IVPUSH PRN PRN PRN Reason: Protocol Aztreonam 1 gm/ Dextrose 50 mls @ 100 mls/hr IVPB Q8H-IV BLESSING PRN Reason: Protocol Last Admin: 08/12/17 04:50 Dose: 100 mls/hr Insulin Aspart (Novolog Vial Sliding Scale -) 1 vial SQ ACHS [facility] PRN Reason: Protocol Last Admin: 08/12/17 07:07 Dose: 2 units Insulin Detemir (Levemir Vial) 10 units SQ AM [facility] Last Admin: 08/12/17 07:07 Dose: 10 units Metformin HCl (Glucophage -) 500 mg PO BID@0700,1630 [facility] Last Admin: 08/12/17 07:07 Dose: 500 mg Montelukast Sodium (Singulair -) 10 mg PO HS [facility] Last Admin: 08/11/17 22:52 Dose: 10 mg Nebivolol (Bystolic -) 2.5 mg PO DAILY [facility] Last Admin: 08/11/17 10:30 Dose: 2.5 mg Nystatin (Nystatin Oral Suspension -) 500,000 units PO Q6HPO [facility] Last Admin: 08/12/17 07:06 Dose: 500,000 units Potassium Chloride (K-Dur -) 20 meq PO DAILY [facility] Last Admin: 08/11/17 09:53 Dose: 20 meq Prednisone (Deltasone -) 20 mg PO BID [facility] Last Admin: 08/11/17 22:52 Dose: 20 mg Ranitidine HCl (Zantac -) 150 mg PO DAILY [facility] Last Admin: 08/11/17 09:53 Dose: 150 mg Senna (Senna -) 1 tab PO DAILY [facility] Last Admin: 08/11/17 09:53 Dose: 1 tab Vancomycin HCl (Vancomycin (Pre-Docked)) 1,000 mg IVPB DAILY [facility] PRN Reason: Protocol Last Admin: 08/11/17 10:11 Dose: 1,000 mg Warfarin Sodium (Coumadin -) 5 mg PO DAILY@1800 [facility] Last Admin: 08/11/17 17:02 Dose: 5 mg - Objective Vital Signs: Vital Signs Temperature 98.1 F 08/12/17 06:00 Pulse Rate 90 08/12/17 06:00 Respiratory Rate 20 08/12/17 06:00 Blood Pressure 137/68 08/12/17 06:00 O2 Sat by Pulse Oximetry (%) 98 08/11/17 21:00 Constitutional: Yes: Well Nourished, Calm Eyes: Yes: WNL HENT: Yes: WNL Neck: Yes: WNL Cardiovascular: Yes: Pulse Irregular, S1, S2 Respiratory: Yes: Rhonchi (FEW RHONCHI) Gastrointestinal: Yes: Normal Bowel Sounds, Soft Extremities: Yes: WNL Edema: Yes Labs: CBC, BMP 08/12/17 06:40 08/12/17 06:40 INR, PTT INR 2.54 (0.82-1.09) H 08/12/17 06:30 Fibrinogen 191.0 mg/dL (238-498) L 08/05/17 17:00 Assessment/Plan IMP COPD /ASTHMA EXACERBATION IMPROVING CHF MVR RECENT/NL CORONARIES PERMANENT AF H/O VTE HTN/PULMONARY HTN LLL OPACITY LIKELY PARTIAL ATELECTASIS LLL LEFT IJ PHLEBITIS ANEMIA THROMBOCYTOPENIA IMPROVING HEMATOMA O2 BRONCHODILATORS A/C DIURETICS PREDNISONE TAPER BRONCHODILATORS CHEST PT F/U CHEST CT OUTPATIENT IF NO CHANGE LLL CONSOLIDATION CONSIDER BRONCHOSCOPY PULMONARY REHAB POST DISCHARGE MONITOR H+H,PLTS DR YE Problem List - Problems (1) COPD (chronic obstructive pulmonary disease) with chronic bronchitis Code(s): J44.9 - CHRONIC OBSTRUCTIVE PULMONARY DISEASE, UNSPECIFIED (2) Acute asthma exacerbation Code(s): J45.901 - UNSPECIFIED ASTHMA WITH (ACUTE) EXACERBATION Qualifiers: (3) Anxiety and depression Code(s): F41.9 - ANXIETY DISORDER, UNSPECIFIED F32.9 - MAJOR DEPRESSIVE DISORDER, SINGLE EPISODE, UNSPECIFIED (4) Mitral valve replaced Code(s): Z95.2 - PRESENCE OF PROSTHETIC HEART VALVE
[2017-08-12] MEDS: CALCIUM CARBONATE 650 MG TABLET PO SCH (10:58)
[2017-08-12] MEDS: predniSONE 20 MG TABLET (UD) PO SCH ×2 (10:58→21:42)
[2017-08-12] MEDS: FUROSEMIDE 40 MG TABLET (FP) PO SCH (10:58)
[2017-08-12] MEDS: SENNOSIDES 8.6MG TABLET (FP) PO SCH (10:58)
[2017-08-12] MEDS: NEBIVOLOL 2.5 MG TABLET (FP) PO SCH (10:59)
[2017-08-12] MEDS: POTASSIUM CHLORIDE TABS 20 MEQ TABLET.ER (FP) PO SCH (10:59)
[2017-08-12] MEDS: RANITIDINE HCL 150 MG TABLET (FP) PO SCH (10:59)
[2017-08-12] MEDS: DIGOXIN 0.125 MG TABLET (FP) PO SCH (10:59)
--- NOTE | 2017-08-12 13:33 | PN ---
Progress Note (short form) - Note Progress Note: feels improved, nonproductive cough resting comfortably in bed no diarrhea no dysuria Vital Signs Period Temp Pulse Resp BP Sys/Urrutia Pulse Ox Last 24 Hr 97.9 F-98.2 F 88-130 20-20 109-137/60-68 97-98 cor-rrr lungs clear abd soft,nt ext no edema hematoma unchanged CBC, BMP 08/12/17 06:40 08/12/17 06:40 Microbiology 08/04/17 19:45 Blood - Peripheral Venous Blood Culture - Final NO GROWTH AFTER 5 DAYS INCUBATION 08/04/17 19:45 Blood - Peripheral Venous Blood Culture - Final NO GROWTH AFTER 5 DAYS INCUBATION 07/30/17 18:30 Blood - Peripheral Venous Blood Culture - Final NO GROWTH AFTER 5 DAYS INCUBATION 07/30/17 18:30 Blood - Peripheral Venous Blood Culture - Final NO GROWTH AFTER 5 DAYS INCUBATION 07/12/17 06:00 Blood - Peripheral Venous Blood Culture - Final NO GROWTH AFTER 5 DAYS INCUBATION 07/12/17 06:00 Blood - Peripheral Venous Blood Culture - Final NO GROWTH AFTER 5 DAYS INCUBATION 07/13/17 16:45 Urine - Urine Clean Catch Urine Culture - Final Proteus Mirabilis 07/12/17 06:20 Nasopharyngeal Swab Influenza Types A,B Antigen (GILBERT) - Final 07/12/17 06:20 Nasopharyngeal Swab - Final a/p concern for pneumonia/bronchitis- infection as causing the persistent low platelets and fibrinogen- hematoma and hgb now seem stable given ampicillin allergy, will avoid levaquin as she is on coumadin, day #7/ vanco/azactam- d/c antibiotics today d/c antibiotics in am s/p MVR 07/01 thrush- on nystatin- asked her to remove her dentures and use swish and swallow thrombocytopenia improved please encourage incentive spirometry please call back if needed Problem List - Problems (1) Acute exacerbation of CHF (congestive heart failure) Code(s): I50.9 - HEART FAILURE, UNSPECIFIED Qualifiers: Congestive heart failure type: diastolic Qualified Code(s): I50.33 - Acute on chronic diastolic (congestive) heart failure; I50.33 - Acute on chronic diastolic (congestive) heart failure; I50.33 - Acute on chronic diastolic (congestive) heart failure; I50.33 - Acute on chronic diastolic ( congestive) heart failure (2) COPD exacerbation Code(s): J44.1 - CHRONIC OBSTRUCTIVE PULMONARY DISEASE W (ACUTE) EXACERBATION (3) S/P MVR (mitral valve replacement) Code(s): Z95.2 - PRESENCE OF PROSTHETIC HEART VALVE
[2017-08-12] MEDS: WARFARIN NA 5 MG TABLET (UD) PO SCH (17:51)
[2017-08-12] MEDS: MONTELUKAST NA 10 MG TABLET PO SCH (21:42)
[2017-08-12] MEDS ORDERED: dilTIAZem HCL 60 MG TABLET (FP) PO ONE (23:30)
[2017-08-13] MEDS: metFORMIN HCL 500 MG TABLET (FP) PO SCH (06:04)
[2017-08-13] MEDS: INSULIN DETEMIR 100 UNITS/ML MDV SQ SCH (06:04)
[2017-08-13] MEDS: NYSTATIN 500,000 UNITS/5 ML SUSPENSION PO SCH ×2 (06:04→11:54)
[2017-08-13] MEDS: INSULIN SLIDING SCALE (NOVOLOG) 1 VIAL SQ SCH ×2 (06:05→11:54)
[2017-08-13] MEDS: ALBUTEROL SO4 2.5/IPRATROPIUM 0.5 INH SOL 3 ML VIAL.NEB. NEB SCH ×2 (06:25→12:04)
[2017-08-13] MEDS ORDERED: predniSONE 20 MG TABLET (UD) PO SCH (08:55)
--- NOTE | 2017-08-13 09:04 | DS ---
Physical Examination Vital Signs: Vital Signs Temperature 97.9 F 08/13/17 02:00 Pulse Rate 101 H 08/13/17 02:00 Respiratory Rate 20 08/13/17 02:00 Blood Pressure 116/71 08/13/17 02:00 O2 Sat by Pulse Oximetry (%) 98 08/12/17 21:00 Findings/Remarks: feels better sitting in chair Cardiovascular: Yes: Murmur, S1, S2 Respiratory: Yes: Rhonchi, Other (improved) Gastrointestinal: Yes: Normal Bowel Sounds, Soft Labs: CBC, BMP 08/12/17 06:40 08/12/17 06:40 Discharge Summary Reason For Visit: COPD,CHF,ASTHMA ATTACK Current Active Problems Anemia due to acute blood loss (Acute) Asthma attack (Acute) CHF (congestive heart failure) (Acute) COPD (chronic obstructive pulmonary disease) with chronic bronchitis (Acute) Diabetes (Acute) Fall (Acute) History of mitral valve replacement with bioprosthetic valve (Acute) Hyperglycemia (Acute) Internal jugular vein thrombosis (Acute) Intramuscular hematoma (Acute) Mitral valve replaced (Acute) Osteomyelitis (Acute) Retroperitoneal bleed (Acute) S/P MVR (mitral valve replacement) (Acute) Supratherapeutic INR (Acute) Thrombocytopenia due to blood loss (Acute) Traumatic hematoma of flank (Acute) Traumatic hematoma of left thoracic region (Acute) Traumatic hematoma of multiple sites (Acute) Hospital Course: - Patient is a 76 year old female with a significant past medical history of AFib( on coumadin), CHF, mitral insufficiency, hypertension, hypothyroidism, asthma, COPD, and osteoarthritis who presents to the ED with complaints of shortness of breath for 7 hours. Patient reports getting discharged from [facility] yesterday for prolonged admission for cardiac evaluation. As per patient's daughter patient has been has experiencing intermittent episodes of wheezing and SOB during her hospitalization. Patients daughter reports patient continued to wheeze with SOB after returning home. Patients was was admitted to [facility] for congestive heart failure and asthma exacerbation. Denies nausea, vomiting. Denies fever, chills. Denies any other symptoms. Allergies: Ampicillin, Codeine. Social history: No smoking. No alcohol. No illicit Drugs. Surgical history: Tubal Ligation PMD: Dr. 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 No: Diabetes Mellitus - Past Surgical History Past Surgical History: Yes: Tubal Ligation, Valve Replacement Problems (1) Fall Assessment/Plan: s/p fall ct head negative has left upper abdominal /chest wall hematoma monitor h/h Code(s): W19.XXXA - UNSPECIFIED FALL, INITIAL ENCOUNTER (2) Internal jugular vein thrombosis Assessment/Plan: off heparin drip thrombocytopenia on couamdin right now heme FU surgical follow up Code(s): I82.C19 - ACUTE EMBOLISM AND THROMBOSIS OF UNSP INTERNAL JUGULAR VEIN (3) S/P MVR (mitral valve replacement) Assessment/Plan: monitor platelet on couamdin Code(s): Z95.2 - PRESENCE OF PROSTHETIC HEART VALVE (4) CHF (congestive heart failure) Assessment/Plan: on po lasix check cmp today on k dur supplements Code(s): I50.9 - HEART FAILURE, UNSPECIFIED (5) COPD (chronic obstructive pulmonary disease) with chronic bronchitis Assessment/Plan: prednisone taper 20mg po bid chest CT as outpatient bronchodilator mucomyst Code(s): J44.9 - CHRONIC OBSTRUCTIVE PULMONARY DISEASE, UNSPECIFIED (6) Atrial fibrillation Assessment/Plan: permanent afb cardizem off heparin drip on couamdin --MONITOR INR Code(s): I48.91 - UNSPECIFIED ATRIAL FIBRILLATION Qualifiers: Atrial fibrillation type: permanent Qualified Code(s): I48.2 - Chronic atrial fibrillation; I48.2 - Chronic atrial fibrillation; I48.2 - Chronic atrial fibrillation; I48.2 - Chronic atrial fibrillation (7) Hyperglycemia Assessment/Plan: seen by endo metformin and levemir Code(s): R73.9 - HYPERGLYCEMIA, UNSPECIFIED (8) Leukocytosis/Thrombocytopenia Assessment/Plan: seen by HEM ID F/U--R/O INFECTIOUS ETIOLOGY ON ABX (9) Anemia Assessment/Plan: Transfuse stool for occult blood cbc (10) Pneumonia Assessment/Plan: s/p vanco and azactam Condition: Improved - Instructions Diet, Activity, Other Instructions: prednisone 15 mg bid and taper as directedby your doctor CLOSE FU OF CBC AND INR MONITOR RESPIRATORY STATUS AND ADJUST DIURETICS NEBS QID Referrals: Joey Hernandez MD [Primary Care Provider] - 1 Week Disposition: HOME - Home Medications Comprehensive Discharge Medication List: Ambulatory Orders Acetaminophen [Tylenol] 650 mg PO BID 07/12/17 Aspirin [ASA -] 81 mg PO DAILY 07/12/17 Famotidine [Pepcid] 20 mg PO DAILY 07/12/17 Sennosides [Senna] 17.2 mg PO DAILY 07/12/17 Albuterol 2.5/Ipratropium 0.5 [Duoneb -] 1 amp NEB QIDR amp 08/13/17 Budesonide [Pulmicort 0.25 mg Nebulizer -] 1 amp NEB BID #60 amp 08/13/17 Calcium Carbonate - 650 mg PO DAILY tablet 08/13/17 Digoxin [Lanoxin -] 0.125 mg PO DAILY tablet 08/13/17 Diltiazem Cd [Cardizem Cd -] 360 mg PO DAILY tab 08/13/17 Guaifenesin/D-Methorphan Hb [Diabetic Tussin Dm -] 5 ml PO Q4H PRN #0 ml Insulin Sliding Scale [Novolog Vial Sliding Scale -] 1 vial SQ ACHS units 08/13 Metformin HCl [Glucophage -] 500 mg PO BID@0700,1630 tablet 08/13/17 Montelukast Na [Singulair -] 10 mg PO HS tablet 08/13/17 Nebivolol [Bystolic -] 2.5 mg PO DAILY tab 08/13/17 Nystatin Oral Suspension - [Nystatin Oral Susp 390595 Units/5 ML -] 500,000 units PO Q6HPO ml 08/13/17 Prednisone [Deltasone -] 15 mg PO BID #60 tablet 08/13/17 Warfarin Na [Coumadin -] 5 mg PO DAILY@1800 tablet 08/13/17
--- NOTE | 2017-08-13 09:51 | PN ---
Progress Note, Physician Chief Complaint: sitting comfortably TELE: AF with AVERAGE rate of 100bpm, acceptable control - Current Medication List Current Medications: Active Medications Acetaminophen (Tylenol -) 650 mg PO Q6H PRN PRN Reason: PAIN Last Admin: 08/04/17 22:35 Dose: 650 mg Albuterol/Ipratropium (Duoneb -) 1 amp NEB QIDR [facility] Last Admin: 08/13/17 06:25 Dose: 1 amp Budesonide (Pulmicort 0.25 Mg Nebulizer -) 1 amp NEB BID [facility] Last Admin: 08/12/17 21:55 Dose: 1 amp Calcium Carbonate (Calcium Carbonate -) 650 mg PO DAILY [facility] Last Admin: 08/12/17 10:58 Dose: 650 mg Digoxin (Lanoxin -) 0.125 mg PO DAILY [facility] Last Admin: 08/12/17 10:59 Dose: 0.125 mg Diltiazem HCl (Cardizem Cd -) 360 mg PO DAILY [facility] Last Admin: 08/12/17 10:58 Dose: 360 mg Furosemide (Lasix -) 40 mg PO DAILY [facility] Last Admin: 08/12/17 10:58 Dose: 40 mg Guaifenesin (Diabetic Tussin Dm -) 5 ml PO Q4H PRN PRN Reason: COUGH Last Admin: 08/04/17 22:35 Dose: 5 ml IV Flush (Triple Lumen Flush) 4 ml IVPUSH PRN PRN PRN Reason: Protocol IV Flush (Picc Line Flush) 8 ml IVPUSH PRN PRN PRN Reason: Protocol Insulin Aspart (Novolog Vial Sliding Scale -) 1 vial SQ ACHS [facility] PRN Reason: Protocol Last Admin: 08/13/17 06:05 Dose: Not Given Insulin Detemir (Levemir Vial) 10 units SQ AM [facility] Last Admin: 08/13/17 06:04 Dose: 10 units Metformin HCl (Glucophage -) 500 mg PO BID@0700,1630 [facility] Last Admin: 08/13/17 06:04 Dose: 500 mg Montelukast Sodium (Singulair -) 10 mg PO HS [facility] Last Admin: 08/12/17 21:42 Dose: 10 mg Nebivolol (Bystolic -) 2.5 mg PO DAILY [facility] Last Admin: 08/12/17 10:59 Dose: 2.5 mg Nystatin (Nystatin Oral Suspension -) 500,000 units PO Q6HPO [facility] Last Admin: 08/13/17 06:04 Dose: 500,000 units Potassium Chloride (K-Dur -) 20 meq PO DAILY [facility] Last Admin: 08/12/17 10:59 Dose: 20 meq Prednisone (Deltasone -) 15 mg PO BID [facility] Ranitidine HCl (Zantac -) 150 mg PO DAILY [facility] Last Admin: 08/12/17 10:59 Dose: 150 mg Senna (Senna -) 1 tab PO DAILY [facility] Last Admin: 08/12/17 10:58 Dose: 1 tab Warfarin Sodium (Coumadin -) 5 mg PO DAILY@1800 [facility] Last Admin: 08/12/17 17:51 Dose: 5 mg - Objective Vital Signs: Vital Signs Temperature 97.9 F 08/13/17 02:00 Pulse Rate 101 H 08/13/17 02:00 Respiratory Rate 20 08/13/17 02:00 Blood Pressure 116/71 08/13/17 02:00 O2 Sat by Pulse Oximetry (%) 98 08/12/17 21:00 Constitutional: Yes: Calm Cardiovascular: Yes: Pulse Irregular Respiratory: Yes: Other (mild b/l rhonchi.) Gastrointestinal: Yes: Soft Edema: No Neurological: Yes: Alert, Oriented Labs: CBC, BMP 08/12/17 06:40 08/12/17 06:40 INR, PTT INR 2.54 (0.82-1.09) H 08/12/17 06:30 Fibrinogen 191.0 mg/dL (238-498) L 08/05/17 17:00 Laboratory Tests 08/12/17 08/12/17 08/12/17 06:30 06:40 06:40 WBC 10.5 H Hgb 9.2 L Plt Count 112 L INR 2.54 H Potassium 4.3 Creatinine 0.5 L D Assessment/Plan Assessment/Plan 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 Average heart rate/ 24hours around 100bpm. If it should become problematic at rehab, would increase Bystolic to 5mg daily. Abx as per ID. Pulmonary following, SOB improving Hematology following Ok to start discharging planning from a cardiac standpoint
[2017-08-13] MEDS: BUDESONIDE 0.25 MG/2ML INH SUSP VIAL NEB SCH (10:36)
--- NOTE | 2017-08-13 11:10 | PN ---
Progress Note, Physician History of Present Illness: PULMONARY ALERT,OOB-CHAIR,-RESP DISTRESS - Current Medication List Current Medications: Active Medications Acetaminophen (Tylenol -) 650 mg PO Q6H PRN PRN Reason: PAIN Last Admin: 08/04/17 22:35 Dose: 650 mg Albuterol/Ipratropium (Duoneb -) 1 amp NEB QIDR [facility] Last Admin: 08/13/17 06:25 Dose: 1 amp Budesonide (Pulmicort 0.25 Mg Nebulizer -) 1 amp NEB BID [facility] Last Admin: 08/13/17 10:36 Dose: 1 amp Calcium Carbonate (Calcium Carbonate -) 650 mg PO DAILY [facility] Last Admin: 08/12/17 10:58 Dose: 650 mg Digoxin (Lanoxin -) 0.125 mg PO DAILY [facility] Last Admin: 08/12/17 10:59 Dose: 0.125 mg Diltiazem HCl (Cardizem Cd -) 360 mg PO DAILY [facility] Last Admin: 08/12/17 10:58 Dose: 360 mg Furosemide (Lasix -) 40 mg PO DAILY [facility] Last Admin: 08/12/17 10:58 Dose: 40 mg Guaifenesin (Diabetic Tussin Dm -) 5 ml PO Q4H PRN PRN Reason: COUGH Last Admin: 08/04/17 22:35 Dose: 5 ml IV Flush (Triple Lumen Flush) 4 ml IVPUSH PRN PRN PRN Reason: Protocol IV Flush (Picc Line Flush) 8 ml IVPUSH PRN PRN PRN Reason: Protocol Insulin Aspart (Novolog Vial Sliding Scale -) 1 vial SQ ACHS [facility] PRN Reason: Protocol Last Admin: 08/13/17 06:05 Dose: Not Given Insulin Detemir (Levemir Vial) 10 units SQ AM [facility] Last Admin: 08/13/17 06:04 Dose: 10 units Metformin HCl (Glucophage -) 500 mg PO BID@0700,1630 [facility] Last Admin: 08/13/17 06:04 Dose: 500 mg Montelukast Sodium (Singulair -) 10 mg PO HS [facility] Last Admin: 08/12/17 21:42 Dose: 10 mg Nebivolol (Bystolic -) 2.5 mg PO DAILY [facility] Last Admin: 08/12/17 10:59 Dose: 2.5 mg Nystatin (Nystatin Oral Suspension -) 500,000 units PO Q6HPO [facility] Last Admin: 08/13/17 06:04 Dose: 500,000 units Potassium Chloride (K-Dur -) 20 meq PO DAILY [facility] Last Admin: 08/12/17 10:59 Dose: 20 meq Prednisone (Deltasone -) 15 mg PO BID [facility] Ranitidine HCl (Zantac -) 150 mg PO DAILY [facility] Last Admin: 08/12/17 10:59 Dose: 150 mg Senna (Senna -) 1 tab PO DAILY [facility] Last Admin: 08/12/17 10:58 Dose: 1 tab Warfarin Sodium (Coumadin -) 5 mg PO DAILY@1800 [facility] Last Admin: 08/12/17 17:51 Dose: 5 mg - Objective Vital Signs: Vital Signs Temperature 97.9 F 08/13/17 02:00 Pulse Rate 91 H 08/13/17 10:35 Respiratory Rate 20 08/13/17 02:00 Blood Pressure 116/71 08/13/17 02:00 O2 Sat by Pulse Oximetry (%) 98 08/13/17 10:35 Constitutional: Yes: Well Nourished, Calm Eyes: Yes: WNL HENT: Yes: WNL Neck: Yes: WNL Cardiovascular: Yes: Pulse Irregular, S1, S2 Respiratory: Yes: Rhonchi (FEW SCATTERED RHONCHI) Gastrointestinal: Yes: Normal Bowel Sounds, Soft Extremities: Yes: WNL Edema: No Labs: CBC, BMP Assessment/Plan IMP COPD /ASTHMA EXACERBATION IMPROVING CHF IMPROVED MVR RECENT/NL CORONARIES PERMANENT AF H/O VTE HTN/PULMONARY HTN LLL OPACITY LIKELY PARTIAL ATELECTASIS LLL LEFT IJ PHLEBITIS ANEMIA THROMBOCYTOPENIA IMPROVING HEMATOMA O2 BRONCHODILATORS A/C PREDNISONE TAPER BRONCHODILATORS CHEST PT F/U CHEST CT OUTPATIENT IF NO CHANGE LLL CONSOLIDATION CONSIDER BRONCHOSCOPY PULMONARY REHAB DR YE Problem List - Problems (1) COPD (chronic obstructive pulmonary disease) with chronic bronchitis Code(s): J44.9 - CHRONIC OBSTRUCTIVE PULMONARY DISEASE, UNSPECIFIED (2) Acute asthma exacerbation Code(s): J45.901 - UNSPECIFIED ASTHMA WITH (ACUTE) EXACERBATION Qualifiers: (3) Anxiety and depression Code(s): F41.9 - ANXIETY DISORDER, UNSPECIFIED F32.9 - MAJOR DEPRESSIVE DISORDER, SINGLE EPISODE, UNSPECIFIED (4) Mitral valve replaced Code(s): Z95.2 - PRESENCE OF PROSTHETIC HEART VALVE
[2017-08-13 11:20] LABS: MCH 31.6 pg (25.7-33.7); MCHC 33.1 g/dl (32.0-36.0); MEAN CELL VOLUME 95.4 fl (80-96); MEAN PLT VOLUME 7.8 fl (7.5-11.1); PLATELET COUNT 127 K/MM3 (134-434); RDW 19.2 % (11.6-15.6); WHITE BLOOD COUNT 10.6 K/mm3 (4.0-10.0)
[2017-08-13] MEDS ORDERED: PT OWN MED DRAWER 7, Y5N ONE ×2 (11:51→12:42)
[2017-08-13] MEDS: NEBIVOLOL 2.5 MG TABLET (FP) PO SCH (11:52)
[2017-08-13] MEDS: FUROSEMIDE 40 MG TABLET (FP) PO SCH (11:53)
[2017-08-13] MEDS: RANITIDINE HCL 150 MG TABLET (FP) PO SCH (11:53)
[2017-08-13] MEDS: POTASSIUM CHLORIDE TABS 20 MEQ TABLET.ER (FP) PO SCH (11:53)
[2017-08-13] MEDS: CALCIUM CARBONATE 650 MG TABLET PO SCH (11:53)
[2017-08-13] MEDS: DIGOXIN 0.125 MG TABLET (FP) PO SCH (11:53)
[2017-08-13] MEDS: SENNOSIDES 8.6MG TABLET (FP) PO SCH (11:53)
--- NOTE | 2017-08-13 12:38 | EKG ---
Test Reason : Blood Pressure : / mmHG Vent. Rate : 099 BPM Atrial Rate : 119 BPM P-R Int : 000 ms QRS Dur : 074 ms QT Int : 308 ms P-R-T Axes : 000 -22 201 degrees QTc Int : 395 ms ATRIAL FIBRILLATION MINIMAL VOLTAGE CRITERIA FOR LVH, MAY BE NORMAL VARIANT ABNORMAL ECG WHEN COMPARED WITH ECG OF 12-JUL-2017 08:00, NONSPECIFIC T WAVE ABNORMALITY NOW EVIDENT IN INFERIOR LEADS QT HAS SHORTENED Confirmed by JOSIE SLAUGHTER, ALBERTO ([id number]) on 08/13/2017 12:37:41 PM Referred By: SAL WRIGHT DR Confirmed By:ALBERTO GALINDO MD
[2017-08-13] MEDS ORDERED: INSULIN (NOVOLOG) ASPART 100 UNITS/ML 10ML VIAL ONE (12:42)
[2017-08-13 13:12] LABS: ANISOCYTOSIS 2+; METAMYELOCYTE 3 % (0-2); MICROCYTOSIS FEW; MYELOCYTE 2 % (0-2); POLYCHROMASIA 2+; TOTAL CELLS COUNTED 100
[2017-08-13 13:13] LABS: MACROCYTOSIS 1+; TEAR DROP CELLS 1+
[2017-08-13] MEDS ORDERED: predniSONE 5 MG TABLET (UD) PO SCH (14:25)
[2017-08-13 15:22] VITALS: BP 131/87; PULSE 102; TEMP 98.4
[2020-07-15] MEDS ORDERED: WARFARIN NA 3 MG TABLET PO SCH ×2 (18:00)
== END 2017-08-13 16:18 | disposition home or self-care (01) | DRG 291 ==
LOC: JER 05:10 → JERBED 07:39 → J4S 11:30 → J4W 07-17 07:44 → J4S 07-17 09:02 → J4W 07-26 23:54
PROVIDERS: ADMIT Family Medicine; ATTEND Family Medicine
PROC: 02HV33Z Insertion of Infusion Device into Superior Vena Cava, Percutaneous Approach (ICD-10-PCS; principal; 2017-08-01)
PROC: 30233R1 Transfusion of Nonautologous Platelets into Peripheral Vein, Percutaneous Approach (ICD-10-PCS; 2017-08-01)
PROC: 30233N1 Transfusion of Nonautologous Red Blood Cells into Peripheral Vein, Percutaneous Approach (ICD-10-PCS; 2017-08-01)
DX: I11.0 Hypertensive heart disease with heart failure (principal); J18.9 Pneumonia, unspecified organism; J44.1 Chronic obstructive pulmonary disease with (acute) exacerbation; J98.11 Atelectasis; I82.C12 Acute embolism and thrombosis of left internal jugular vein; D62 Acute posthemorrhagic anemia; B37.89 Other sites of candidiasis; I48.2 Chronic atrial fibrillation; I50.33 Acute on chronic diastolic (congestive) heart failure; I34.0 Nonrheumatic mitral (valve) insufficiency; E03.9 Hypothyroidism, unspecified; K21.9 Gastro-esophageal reflux disease without esophagitis; D64.9 Anemia, unspecified; E06.3 Autoimmune thyroiditis; M19.90 Unspecified osteoarthritis, unspecified site; F41.8 Other specified anxiety disorders; I27.20 Pulmonary hypertension, unspecified; K76.0 Fatty (change of) liver, not elsewhere classified; E11.65 Type 2 diabetes mellitus with hyperglycemia; D24.9 Benign neoplasm of unspecified breast; R06.02 Shortness of breath; D72.828 Other elevated white blood cell count; E66.8 Other obesity; Z68.32 Body mass index [BMI] 32.0-32.9, adult; S30.1XXA Contusion of abdominal wall, initial encounter; S70.02XA Contusion of left hip, initial encounter; S20.20XA Contusion of thorax, unspecified, initial encounter; M54.89 Other dorsalgia; D69.59 Other secondary thrombocytopenia; R79.1 Abnormal coagulation profile; E11.59 Type 2 diabetes mellitus with other circulatory complications; Z95.2 Presence of prosthetic heart valve; Y92.230 Patient room in hospital as the place of occurrence of the external cause; W18.39XA Other fall on same level, initial encounter; Y93.89 Activity, other specified; Z79.01 Long term (current) use of anticoagulants; Z88.8 Allergy status to other drugs, medicaments and biological substances
CPT/HCPCS: 36415; 36430; 36569; 36600; 70450-TC; 71010-TC; 71020-TC; 71101-TC; 71250-TC; 71275-TC; 74178-TC; 76705-TC; 77001-TC; 80048; 80053; 81003; 82272; 82375; 82542; 82550; 82553; 82607; 82803; 83010; 83036; 83050; 83605; 83615; 83735; 83880; 84439; 84443; 84484; 85025; 85027; 85044; 85384; 85610; 85730; 86022; 86850; 86880; 86900; 86901; 86922; 87040; 87086; 87186; 87804; 93005; 93010; 93306-TC; 93971; 94640; 94667; 97116-GP; 97161-GP; 97164-GP; 99285-25; C1751; G0480; J1644; P9034; P9038; P9058; Q9967

== ENCOUNTER 2017-09-27 23:26 | Inpatient (IN) | payer OTHER ==
[2017-09-27 23:33] VITALS: BMI 34.4
--- NOTE | 2017-09-27 23:33 | PDOC ---
History of Present Illness - General Chief Complaint: Weakness Stated Complaint: FALL Time Seen by Provider: 09/27/17 23:33 - History of Present Illness Initial Comments: 09/27/17 23:36 Ms. Magaña is a 77 yo female w/ pmh of Afib (currently on coumadin), CHF, HTN , Hypothyroidism, Asthma, COPD, OA, and mitral insufficiency s/p valve replacement who presents after reported fall earlier today. Patient cannot recall how she fell or if she fell out of a chair or bed but thinks she may have lost conciousness (although she denies hitting her head). She denies any pain at this time. The patient denies chest pain, shortness of breath, headache and dizziness. Denies fever, chills, nausea, vomit, diarrhea and constipation. Denies dysuria, frequency, urgency and hematuria. Allergies: Ampicillin, codeine Past History - Past Medical History Allergies/Adverse Reactions: Allergies Allergy/AdvReac Type Severity Reaction Status Date / Time ampicillin [Ampicillin] Allergy Severe Swelling Verified 09/27/17 23:31 codeine [Codeine] Allergy Swelling Verified 09/27/17 23:31 Home Medications: Ambulatory Orders Budesonide [Pulmicort 0.25 mg Nebulizer -] 1 amp NEB BID #60 amp 08/13/17 Digoxin [Lanoxin -] 0.125 mg PO DAILY tablet 08/13/17 Diltiazem Cd [Cardizem Cd -] 360 mg PO DAILY tab 08/13/17 Prednisone [Deltasone -] 15 mg PO BID #60 tablet 08/13/17 Aspirin [ASA -] 81 mg PO DAILY 09/28/17 Furosemide [Lasix -] 40 mg PO DAILY 09/28/17 Metformin HCl [Glucophage -] 500 mg PO BID@1000,2100 09/28/17 Warfarin Sodium 3 mg PO HS 09/28/17 Anemia: No Asthma: Yes (NO MEDS) Cancer: No Cardiac Disorders: Yes (AFIB) CVA: No COPD: No CHF: Yes Dementia: No Diabetes: No GI Disorders: No Disorders: No HTN: Yes Hypercholesterolemia: No Liver Disease: Yes (FATTY LIVER) Seizures: No Thyroid Disease: Yes (HYPO, NO MEDS) - Surgical History Abdominal Surgery: Yes (TUBAL LIGATION) Appendectomy: No Cardiac Surgery: Yes (mitral valve replacement 2 wks ago) Cholecystectomy: No Lung Surgery: No Neurologic Surgery: No Orthopedic Surgery: No - Family Disease History Family Disease History: Diabetes: Father, Heart Disease: Father, Mother - Immunization History Immunization Up to Date: Yes - Suicide/Smoking/Psychosocial Hx Smoking Status: No Smoking History: Never smoked Have you smoked in the past 12 months: No Number of Cigarettes Smoked Daily: 0 Cigars Per Day: 0 Information on smoking cessation initiated: No Hx Alcohol Use: No Drug/Substance Use Hx: No Substance Use Type: None Hx Substance Use Treatment: No Review of Systems - Review of Systems Comments:: 09/28/17 00:40 GENERAL/CONSTITUTIONAL: No fever or chills. No weakness. HEAD, EYES, EARS, NOSE AND THROAT: No change in vision. No ear pain or discharge. No sore throat. CARDIOVASCULAR: No chest pain or shortness of breath RESPIRATORY: No cough, wheezing, or hemoptysis. GASTROINTESTINAL: No nausea, vomiting, diarrhea or constipation. GENITOURINARY: No dysuria, frequency, or change in urination. MUSCULOSKELETAL: No joint or muscle swelling or pain. No neck or back pain. SKIN: No rash NEUROLOGIC: +Loss of consciousness earlier today. Cause/duration unknown. ENDOCRINE: No increased thirst. No abnormal weight change HEMATOLOGIC/LYMPHATIC: No anemia, easy bleeding, or history of blood clots. ALLERGIC/IMMUNOLOGIC: No hives or skin allergy. *Physical Exam - Vital Signs Last Vital Signs Temp Pulse Resp BP Pulse Ox 98.7 F 100 H 16 135/90 100 09/27/17 23:31 09/27/17 23:31 09/27/17 23:31 09/27/17 23:31 09/27/17 23:31 - Physical Exam Comments: 09/28/17 00:41 GENERAL: Awake, alert, and fully oriented, in no acute distress HEAD: No signs of trauma, normocephalic, atraumatic EYES: PERRLA, EOMI, sclera anicteric, conjunctiva clear ENT: Auricles normal inspection, hearing grossly normal, nares patent, oropharynx clear without exudates. Moist mucosa NECK: Normal ROM, supple, no lymphadenopathy, JVD, or masses LUNGS: No distress, speaks full sentences, clear to auscultation bilaterally HEART: Regular rate and rhythm, normal S1 and S2, no murmurs, rubs or gallops, peripheral pulses normal and equal bilaterally. ABDOMEN: +Diffusely mildly tender to palpation. Normoactive bowel sounds. No guarding, no rebound. No masses EXTREMITIES: Normal inspection, Normal range of motion, no edema. No clubbing or cyanosis. NEUROLOGICAL: Cranial nerves II through XII grossly intact. Normal speech, no focal sensorimotor deficits SKIN: Warm, Dry, normal turgor, no rashes or lesions noted. ED Treatment Course - LABORATORY CBC & Chemistry Diagram: 09/28/17 01:01 09/28/17 00:48 Medical Decision Making - Medical Decision Making 09/28/17 06:35 Ms. Magaña is a 77 yo female w/ pmh of Afib (currently on coumadin), CHF, HTN , Hypothyroidism, Asthma, COPD, OA, and mitral insufficiency s/p valve replacement who presents with symptoms of weakness and memory problems complicated by sycopal episode with fall. CT head ordered for r/o acute cranial process. 09/28/17 06:36 Lactate noted to be 3.3, 91.8% neutrophils noted on CBC diff. WBC's 11.4. UA/ CXR ordered to evaluate for infection source. Urine noted to be cloudy and dark yellow. CXR appears clear. PCP's covering provider ([facility]) contacted for admission for further inpatient workup. 09/28/17 07:07 Patient signed out to Dr. Tang for further care. *DC/Admit/Observation/Transfer - Referrals Referrals: Joey Hernandez MD [Primary Care Provider] - - Patient Instructions - Post Discharge Activity
[2017-09-28 01:06] LABS: MCH 29.4 pg (25.7-33.7); MCHC 31.9 g/dl (32.0-36.0); MEAN CELL VOLUME 92.3 fl (80-96); PLATELET COUNT 175 K/MM3 (134-434); RDW 18.5 % (11.6-15.6); WHITE BLOOD COUNT 11.4 K/mm3 (4.0-10.0)
[2017-09-28 01:12] LABS: INR 1.61 (0.82-1.09); PROTHROMBIN TIME (PATIENT) 18.2 SEC (9.98-11.88)
[2017-09-28 01:15] LABS: ACTIVATED PTT 26.6 SECONDS (26.9-34.4)
[2017-09-28 01:29] LABS: ALBUMIN 2.9 g/dl (3.4-5.0); ANION GAP 10 (8-16); BILIRUBIN,TOTAL 0.3 mg/dL (0.2-1.0); CALCIUM 8.9 mg/dL (8.5-10.1); CO2 26 mmol/L (21-32); CREATININE 0.7 mg/dL (0.55-1.02); GLUCOSE,RANDOM 163 mg/dL (74-106); SGOT/AST 13 U/L (15-37); SGPT/ALT 15 U/L (12-78); TOT PROT 5.6 g/dl (6.4-8.2)
[2017-09-28 01:32] LABS: ALK PHOS 53 U/L (45-117); CPK 25 IU/L (26-192); TROPONIN I 0.05 ng/ml (0.00-0.05)
--- NOTE | 2017-09-28 02:33 | PDOC ---
Attending Attestation - Medical Decision Making 09/28/17 07:[address] Salinas @6:23am. Dr. Perez on called. Awaiting callback. Called Dr. Perez @6:44am. Awaiting call back. Called Dr. Perez @6:59am. Awaiting callback. <Steve Lang - Last Filed: 09/28/17 07:03> - Resident Resident Name: Garth Pederson - ED Attending Attestation I have performed the following: I have examined & evaluated the patient, The case was reviewed & discussed with the resident, I agree w/resident's findings & plan - HPI HPI: 09/28/17 07:00 Pt with afib fell off the toilet; daughter called EMS. Pt has no complaints. She ahs no fever and no focal pains. She is A+Ox3 and she is in no distress. - Physicial Exam PE: 09/28/17 07:00 Agree with exam of resident. - Medical Decision Making 09/28/17 07:01 Pt likely has a UTI; urine is dark and foul smelling. Pt has no abd pain; lungs clear,. Ext stable and no peripheral edema. Pt has AFIB; EKG shows afib. 09/28/17 07:[address] result and cxr result; urine microscopy; Pt will be signed out to the day team of ER; they will teat the patient and admit to Dr. Perez who is internal control specialist for [facility] -they cover PMD [employer]. <Cesilia Katz - Last Filed: 09/28/17 22:53>
[2017-09-28 02:52] LABS: METAMYELOCYTE 4 % (0-2); MYELOCYTE 0 % (0-2); REACTIVE LYMPHOCYTES 0 % (0-80)
[2017-09-28] MEDS ORDERED: SODIUM CHLORIDE 1,000 ML IV STA (03:27)
[2017-09-28 05:25] LABS: URINE APPEARANCE SLCLOUDY; URINE BILIRUBIN NEGATIVE (NEGATIVE); URINE BLOOD NEGATIVE (NEGATIVE); URINE COLOR DKYELLOW; URINE GLUCOSE (UA) 1+ (NEGATIVE); URINE KETONE NEGATIVE (NEGATIVE); URINE LEUK ESTERASE NEGATIVE (NEGATIVE); URINE NITRITE NEGATIVE (NEGATIVE); URINE PROTEIN NEGATIVE (NEGATIVE)
--- NOTE | 2017-09-28 07:20 | PDOC ---
*Physical Exam - Vital Signs Last Vital Signs Temp Pulse Resp BP Pulse Ox 98.7 F 100 H 16 135/90 100 09/27/17 23:31 09/27/17 23:31 09/27/17 23:31 09/27/17 23:31 09/27/17 23:31 - Physical Exam Comments: 09/28/17 07:43 GENERAL: Awake, alert, and fully oriented, in no acute distress HEAD: No signs of trauma, normocephalic, atraumatic EYES: PERRLA, EOMI, sclera anicteric, conjunctiva clear ENT: Auricles normal inspection, hearing grossly normal, nares patent, oropharynx clear without exudates. Moist mucosa NECK: Normal ROM, supple, no lymphadenopathy, JVD, or masses LUNGS: No distress, speaks full sentences, clear to auscultation bilaterally HEART: Regular rate and rhythm, normal S1 and S2, no murmurs, rubs or gallops, peripheral pulses normal and equal bilaterally. ABDOMEN: Diffusely ttp. Normoactive bowel sounds. No guarding, no rebound. No masses. Absent CVA ttp. Absent suprpaubic ttp. EXTREMITIES: Normal inspection, Normal range of motion, no edema. No clubbing or cyanosis. NEUROLOGICAL: Cranial nerves II through XII grossly intact. Normal speech, no focal sensorimotor deficits SKIN: Warm, Dry, normal turgor, no rashes or lesions noted. ED Treatment Course - LABORATORY CBC & Chemistry Diagram: 09/28/17 01:01 09/28/17 00:48 - ADDITIONAL ORDERS Additional order review: Laboratory Results 09/28/17 09/28/17 09/28/17 06:22 05:18 00:48 PT with INR INR PTT (Actin FS) Sodium Potassium Chloride Carbon Dioxide Anion Gap BUN Creatinine Creat Clearance w eGFR Random Glucose Lactic Acid 3.1 H* Calcium Total Bilirubin AST ALT Alkaline Phosphatase Creatine Kinase Troponin I Total Protein Albumin Lipase Urine Color Dkyellow Urine Appearance Slcloudy Urine pH 6.0 Ur Specific [place] 1.028 Urine Protein Negative Urine Glucose (UA) 1+ H Urine Ketones Negative Urine Blood Negative Urine Nitrite Negative Urine Bilirubin Negative Urine Urobilinogen 2.0 H Blood Type A POSITIVE Antibody Screen Negative 09/28/17 09/28/17 09/28/17 00:48 00:48 00:48 PT with INR 18.20 H INR 1.61 H D PTT (Actin FS) 26.6 L Sodium 141 Potassium 4.5 Chloride 105 Carbon Dioxide 26 Anion Gap 10 BUN 22 H D Creatinine 0.7 D Creat Clearance w eGFR > 60 Random Glucose 163 H D Lactic Acid 3.3 H* Calcium 8.9 Total Bilirubin 0.3 D AST 13 L D ALT 15 Alkaline Phosphatase 53 Creatine Kinase 25 L Troponin I 0.05 Total Protein 5.6 L D Albumin 2.9 L Lipase 303 Urine Color Urine Appearance Urine pH Ur Specific [place] Urine Protein Urine Glucose (UA) Urine Ketones Urine Blood Urine Nitrite Urine Bilirubin Urine Urobilinogen Blood Type Antibody Screen 09/28/17 01:01 RBC 3.87 D MCV 92.3 MCHC 31.9 L RDW 18.5 H MPV 8.0 Neutrophils % No Result Required. Lymphocytes % No Result Required. - Medications Given in the ED: ED Medications Discontinued Medications Generic Name Dose Route Start Last Admin Trade Name Freq PRN Reason Stop Dose Admin Sodium Chloride 1,000 mls @ 1,000 mls/hr 09/28/17 03:27 09/28/17 03:31 Normal Saline - IV 09/28/17 04:26 1,000 mls/hr ASDIR STA Administration Medical Decision Making - Medical Decision Making 09/28/17 07:[address] Pederson. Ms. Magaña is a 77 yo female w h/o HTN, Afib (on coumadin), mitral insufficiency s/p valve replacement, CHF, Hypothyroidism, Asthma, COPD, and OA, and who presents w/ weakness and memory problems complicated by syncopal episode with fall. Patient cannot recall how she fell or if she fell out of a chair or bed but thinks she may have lost conciousness (although she denies hitting her head). She denies any pain at this time. CT head ordered for r/o acute cranial process. ED Course notable for Lactate~ 3.3, with repeat lactate~3.1 WBC's 11.4 with 91.8% neutrophils noted on CBC diff. . UA: Neg CXR: Unremarkble CT Head pending Dr. Salinas (covering Dr. Hernandez) contacted for inpatient workup. Admit to [facility]. *DC/Admit/Observation/Transfer Diagnosis at time of Disposition: Fall, Confusion - Discharge Dispostion Admit: Yes - Referrals Referrals: Joey Hernandez MD [Primary Care Provider] - - Patient Instructions - Post Discharge Activity
[2017-09-28 11:13] LABS: URINE LEUK ESTERASE Negative (NEGATIVE)
[2017-09-28 12:55] LABS: MCH 28.6 pg (25.7-33.7); MCHC 30.8 g/dl (32.0-36.0); MEAN CELL VOLUME 92.6 fl (80-96); MEAN PLT VOLUME 8.3 fl (7.5-11.1); PLATELET COUNT 166 K/MM3 (134-434); RDW 18.5 % (11.6-15.6); WHITE BLOOD COUNT 11.4 K/mm3 (4.0-10.0)
[2017-09-28 13:29] LABS: PLATELET ESTIMATE ADEQUATE; TOTAL CELLS COUNTED 100
[2017-09-28 13:42] LABS: ARTERIAL BLD GAS O2 SATURATION 98.1 % (90-98.9); ARTERIAL BLOOD GAS BASE EXCESS 0.9 meq/l (-2-2); ARTERIAL BLOOD GAS HCO3 24.4 meq/L (22-26); ARTERIAL BLOOD GAS PO2 91.9 mmHg (70-100); ARTERIAL BLOOD GAS pH 7.44 (7.35-7.45)
[2017-09-28 13:44] LABS: TROPONIN I 0.05 ng/ml (0.00-0.05)
[2017-09-28 13:45] LABS: ALLENS TEST POSITIVE; ART PUNCT SITE RIGHT RADIAL; PT. ON O2? YES
[2017-09-28] MEDS: LEVOFLOXACIN 500 MG IVPB 500 MG/100 ML BAG IVPB SCH (14:12)
[2017-09-28] MEDS: ENOXAPARIN NA (PORCINE) 80 MG/0.8 ML DISP.SYRIN SQ SCH ×2 (14:13→21:33)
[2017-09-28] MEDS: SODIUM CHLORIDE 1,000 ML IV SCH (14:14)
--- NOTE | 2017-09-28 14:55 | HP ---
Admitting History and Physical - Admission History of Present Illness: Ms. Magaña is a 77 yo female w/ pmh of Afib (currently on coumadin), CHF, HTN , Hypothyroidism, Asthma, COPD, OA, and mitral insufficiency s/p valve replacement who presents after reported fall earlier today. Patient cannot recall how she fell or if she fell out of a chair or bed but thinks she may have lost conciousness (although she denies hitting her head). She denies any pain at this time. pt is lethargic but arousable - Past Medical History Cardiovascular: Yes: AFIB (REFUSED ANTICOAGULATION IN PAST NOW ON COUMADIN), HTN , Mitral Insufficiency (s/p valve replacement) Pulmonary: Yes: Asthma, Bronchitis, COPD Gastrointestinal: Yes: GERD Musculoskeletal: Yes: Osteoarthritis Endocrine: Yes: Hyperthyroidism. No: Diabetes Mellitus - Past Surgical History Past Surgical History: Yes: Tubal Ligation (laparoscopic), Valve Replacement ( mechanical mitral 2 wks ago) - Smoking History Smoking history: Never smoked Have you smoked in the past 12 months: No Aproximately how many cigarettes per day: 0 - Alcohol/Substance Use Hx Alcohol Use: No History of Substance Use: reports: None - Social History ADL: Independent History of Recent Travel: No Home Medications - Allergies Allergies/Adverse Reactions: Allergies Allergy/AdvReac Type Severity Reaction Status Date / Time ampicillin [Ampicillin] Allergy Severe Swelling Verified 09/27/17 23:31 codeine [Codeine] Allergy Swelling Verified 09/27/17 23:31 - Home Medications Home Medications: Ambulatory Orders Budesonide [Pulmicort 0.25 mg Nebulizer -] 1 amp NEB BID #60 amp 08/13/17 Digoxin [Lanoxin -] 0.125 mg PO DAILY tablet 08/13/17 Diltiazem Cd [Cardizem Cd -] 360 mg PO DAILY tab 08/13/17 Prednisone [Deltasone -] 15 mg PO BID #60 tablet 08/13/17 Aspirin [ASA -] 81 mg PO DAILY 09/28/17 Furosemide [Lasix -] 40 mg PO DAILY 09/28/17 Metformin HCl [Glucophage -] 500 mg PO BID@1000,2100 09/28/17 Montelukast Na [Singulair -] 10 mg PO HS 09/28/17 Nebivolol HCl [Bystolic] 2.5 mg PO DAILY 12/17/17 Warfarin Sodium 3 mg PO HS 09/28/17 Family Disease History - Family Disease History Family Disease History: Diabetes: Father (HTN) Review of Systems - Review of Systems Constitutional: reports: Weakness Cardiovascular: reports: No Symptoms Respiratory: reports: No Symptoms Gastrointestinal: reports: No Symptoms Genitourinary: reports: No Symptoms Physical Examination Vital Signs: Vital Signs Temperature 97.6 F 09/28/17 11:52 Pulse Rate 84 09/28/17 11:52 Respiratory Rate 18 09/28/17 11:52 Blood Pressure 140/85 09/28/17 11:52 O2 Sat by Pulse Oximetry (%) 100 09/28/17 11:52 Cardiovascular: Yes: Pulse Irregular, Murmur, S1, S2 Respiratory: Yes: Regular, CTA Bilaterally Gastrointestinal: Yes: Normal Bowel Sounds, Soft Labs: CBC, BMP 09/28/17 12:25 09/28/17 00:48 Problem List - Problems (1) Sepsis Assessment/Plan: ivf iv abx bc.uc,ct scan echo Code(s): A41.9 - SEPSIS, UNSPECIFIED ORGANISM (2) Atrial fibrillation Assessment/Plan: coumadin lovenox Code(s): I48.91 - UNSPECIFIED ATRIAL FIBRILLATION Qualifiers: Atrial fibrillation type: permanent Qualified Code(s): I48.2 - Chronic atrial fibrillation (3) Confusion Assessment/Plan: as above neuro consult ct head nad Code(s): R41.0 - DISORIENTATION, UNSPECIFIED (4) COPD (chronic obstructive pulmonary disease) Assessment/Plan: nebs steroids Code(s): J44.9 - CHRONIC OBSTRUCTIVE PULMONARY DISEASE, UNSPECIFIED
[2017-09-28] MEDS ORDERED: PT OWN MED DRAWER 7, Y5N ONE ×2 (16:27→21:15)
[2017-09-28] MEDS: methylPREDNISolone NA SUCC 40 MG/1 ML VIAL IVPUSH SCH ×2 (16:42→21:33)
[2017-09-28] MEDS: VANCOMYCIN 1,000 MG in DEXTROSE 5%-WATER - 250 ML IVPB SCH (16:45)
[2017-09-28] MEDS: INSULIN SLIDING SCALE (NOVOLOG) 1 VIAL SQ SCH ×2 (16:48→21:44)
[2017-09-28] MEDS: WARFARIN NA 3 MG TABLET PO SCH (17:26)
[2017-09-28] MEDS: MONTELUKAST NA 10 MG TABLET PO SCH (21:33)
[2017-09-28] MEDS ORDERED: BUDESONIDE 0.5 MG/2 ML INH SUSP VIAL NEB ONE (21:51)
[2017-09-28] MEDS ORDERED: VANCOMYCIN 1,000 MG in DEXTROSE 5%-WATER - 250 ML IVPB SCH (22:00)
[2017-09-28] MEDS: BUDESONIDE 0.25 MG/2ML INH SUSP VIAL NEB SCH (22:10)
[2017-09-29] MEDS: VANCOMYCIN 1,000 MG in DEXTROSE 5%-WATER - 250 ML IVPB SCH (01:39)
[2017-09-29] MEDS: methylPREDNISolone NA SUCC 40 MG/1 ML VIAL IVPUSH SCH ×3 (02:21→22:15)
[2017-09-29] MEDS: INSULIN SLIDING SCALE (NOVOLOG) 1 VIAL SQ SCH ×4 (06:40→22:16)
[2017-09-29 08:02] LABS: MCH 28.8 pg (25.7-33.7); MCHC 31.2 g/dl (32.0-36.0); MEAN CELL VOLUME 92.5 fl (80-96); MEAN PLT VOLUME 8.8 fl (7.5-11.1); PLATELET COUNT 168 K/MM3 (134-434); RDW 18.4 % (11.6-15.6); WHITE BLOOD COUNT 9.9 K/mm3 (4.0-10.0)
--- NOTE | 2017-09-29 08:04 | PN ---
Progress Note, Physician History of Present Illness: looks better today alert and oriented - Current Medication List Current Medications: Active Medications Aspirin (Asa -) 81 mg PO DAILY [facility] Budesonide (Pulmicort 0.25 Mg Nebulizer -) 1 amp NEB BID [facility] Last Admin: 09/28/17 22:10 Dose: 1 amp Digoxin (Lanoxin -) 0.125 mg PO DAILY [facility] Diltiazem HCl (Cardizem Cd -) 360 mg PO DAILY [facility] Enoxaparin Sodium (Lovenox -) 80 mg SQ BID [facility] Last Admin: 09/28/17 21:33 Dose: 80 mg Levofloxacin (Levaquin 500 Mg Premixed Ivpb -) 500 mg in 100 mls @ 100 mls/hr IVPB DAILY [facility] Last Admin: 09/28/17 14:12 Dose: 100 mls/hr Sodium Chloride (Normal Saline -) 1,000 mls @ 83 mls/hr IV ASDIR [facility] Last Admin: 09/28/17 14:14 Dose: 83 mls/hr Vancomycin HCl 1,000 mg/ (Dextrose) 250 mls @ 250 mls/hr IVPB BID [facility] PRN Reason: Protocol Insulin Aspart (Novolog Vial Sliding Scale -) 1 vial SQ ACHS [facility] PRN Reason: Protocol Last Admin: 09/29/17 06:40 Dose: Not Given Methylprednisolone Sodium Succinate (Solu-Medrol -) 40 mg IVPUSH Q6H-IV [facility] Last Admin: 09/29/17 02:21 Dose: 40 mg Montelukast Sodium (Singulair -) 10 mg PO HS [facility] Last Admin: 09/28/17 21:33 Dose: 10 mg Nebivolol (Bystolic -) 2.5 mg PO DAILY [facility] Warfarin Sodium (Coumadin -) 3 mg PO DAILY@1800 [facility] Last Admin: 09/28/17 17:26 Dose: 3 mg - Objective Vital Signs: Vital Signs Temperature 98 F 09/29/17 05:00 Pulse Rate 98 H 09/29/17 05:00 Respiratory Rate 18 09/29/17 05:00 Blood Pressure 150/98 09/29/17 05:00 O2 Sat by Pulse Oximetry (%) 100 09/28/17 11:52 Cardiovascular: Yes: Pulse Irregular, S1, S2 Respiratory: Yes: Regular, CTA Bilaterally Gastrointestinal: Yes: Normal Bowel Sounds, Soft, Tenderness (mild left sided) Labs: INR, PTT INR 1.61 (0.82-1.09) H D 09/28/17 00:48 Problem List - Problems (1) Sepsis Assessment/Plan: ivf iv abx bc.,ct scan echo Laboratory Tests 09/28/17 09/28/17 09/28/17 00:48 06:22 16:27 Lactic Acid 3.3 H* 3.1 H* 2.2 H* Code(s): A41.9 - SEPSIS, UNSPECIFIED ORGANISM (2) Atrial fibrillation Assessment/Plan: coumadin lovenox since inr sub-therapeutic monitor rate on current meds cardio Code(s): I48.91 - UNSPECIFIED ATRIAL FIBRILLATION Qualifiers: Atrial fibrillation type: permanent Qualified Code(s): I48.2 - Chronic atrial fibrillation (3) Confusion Assessment/Plan: as above--maybe infectious neuro consult ct head nad Code(s): R41.0 - DISORIENTATION, UNSPECIFIED (4) COPD (chronic obstructive pulmonary disease) Assessment/Plan: nebs steroids decrease to bid Code(s): J44.9 - CHRONIC OBSTRUCTIVE PULMONARY DISEASE, UNSPECIFIED
[2017-09-29 08:31] LABS: INR 1.99 (0.82-1.09); PROTHROMBIN TIME (PATIENT) 22.5 SEC (9.98-11.88)
[2017-09-29 08:40] LABS: ALBUMIN 2.7 g/dl (3.4-5.0)
[2017-09-29 08:44] LABS: ALK PHOS 50 U/L (45-117); ANION GAP 13 (8-16); BILIRUBIN,TOTAL 0.3 mg/dL (0.2-1.0); CALCIUM 8.4 mg/dL (8.5-10.1); CO2 23 mmol/L (21-32); CREATININE 0.6 mg/dL (0.55-1.02); GLUCOSE,RANDOM 176 mg/dL (74-106); SGOT/AST 13 U/L (15-37); SGPT/ALT 18 U/L (12-78); TOT PROT 5.5 g/dl (6.4-8.2)
[2017-09-29 09:52] LABS: ACANTHOCYTES 0; ANISOCYTOSIS 0; BURR CELLS 0; CABBOT RINGS 0; HELMET CELLS 0; HOWELL-JOLLY BODIES 0; HYPOCHROMIA 0; MACROCYTOSIS 0; METAMYELOCYTE 0 % (0-2); MICROCYTOSIS 0; MYELOCYTE 0 % (0-2); OVALOCYTE 0; PLATELET ESTIMATE NORMAL; POIKILOCYTOSIS 0; POLYCHROMASIA 0; REACTIVE LYMPHOCYTES 0 % (0-80); SCHISTOCYTES 0; SPHEROCYTE 0; STOMATOCYTE 0; TARGET CELLS 0; TEAR DROP CELLS 0; TOXIC GRANULATION 0
[2017-09-29] MEDS: BUDESONIDE 0.25 MG/2ML INH SUSP VIAL NEB SCH ×2 (10:00→22:30)
[2017-09-29] MEDS ORDERED: PT OWN MED DRAWER 7, Y5N ONE ×2 (10:05→10:45)
[2017-09-29] MEDS: DIGOXIN 0.125 MG TABLET (FP) PO SCH (10:34)
[2017-09-29] MEDS: LEVOFLOXACIN 500 MG IVPB 500 MG/100 ML BAG IVPB SCH (10:34)
[2017-09-29] MEDS: ENOXAPARIN NA (PORCINE) 80 MG/0.8 ML DISP.SYRIN SQ SCH ×2 (10:34→22:15)
[2017-09-29] MEDS: ASPIRIN 81 MG CHEWABLE TABLETS PO SCH (10:34)
--- NOTE | 2017-09-29 10:40 | CON.CARD ---
Consult Consult Specialty:: Cardiology Referred by:: Dr. 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 Pt was seen and examined today in [facility]. she does not recall the event. As per report she was at home with her daughter and lost consciousness. Pt states she overall has been feeling improved. no worsening of chronic sob. no chest pain, palpitations , pnd, orthopnea, or LE edema. no palpitations. - History Source History Provided By: Patient, Medical Record Limitations to Obtaining History: No Limitations - Past Medical History Cardio/Vascular: Yes: AFIB (REFUSED ANTICOAGULATION IN PAST NOW ON COUMADIN), CAD, HTN, Hyperlipdemia, Mitral Insufficiency (s/p valve replacement) Pulmonary: Yes: Asthma, Bronchitis, COPD Gastrointestinal: Yes: GERD Musculoskeletal: Yes: Osteoarthritis Endocrine: Yes: Hyperthyroidism. No: Diabetes Mellitus Additional Medical History: LEFT POPLITEAL DVT - Past Surgical History Past Surgical History: Yes: Tubal Ligation (laparoscopic), Valve Replacement ( mechanical mitral 2 wks ago) - Alcohol/Substance Use Hx Alcohol Use: No History of Substance Use: reports: None - Smoking History Smoking history: Never smoked Have you smoked in the past 12 months: No Aproximately how many cigarettes per day: 0 - Social History ADL: Independent History of Recent Travel: No Home Medications - Allergies Allergies/Adverse Reactions: Allergies Allergy/AdvReac Type Severity Reaction Status Date / Time ampicillin [Ampicillin] Allergy Severe Swelling Verified 09/27/17 23:31 codeine [Codeine] Allergy Swelling Verified 09/27/17 23:31 - Home Medications Home Medications: Ambulatory Orders Budesonide [Pulmicort 0.25 mg Nebulizer -] 1 amp NEB BID #60 amp 08/13/17 Digoxin [Lanoxin -] 0.125 mg PO DAILY tablet 08/13/17 Diltiazem Cd [Cardizem Cd -] 360 mg PO DAILY tab 08/13/17 Prednisone [Deltasone -] 15 mg PO BID #60 tablet 08/13/17 Aspirin [ASA -] 81 mg PO DAILY 09/28/17 Furosemide [Lasix -] 40 mg PO DAILY 09/28/17 Metformin HCl [Glucophage -] 500 mg PO BID@1000,2100 09/28/17 Montelukast Na [Singulair -] 10 mg PO HS 09/28/17 Nebivolol HCl [Bystolic] 2.5 mg PO DAILY 09/28/17 Warfarin Sodium 3 mg PO HS 09/28/17 Family Disease History - Family Disease History Family Disease History: Diabetes: Father (HTN) Review of Systems - Review of Systems Constitutional: denies: No Symptoms, Chills, Diaphoresis, Fever, Lethargy, Loss of Appetite, Malaise, Night Sweats, Unintentional Wgt. Loss, Weakness, Other Eyes: denies: No Symptoms, Blind Spots, Blurred Vision, Double Vision, Eye Pain , Floaters, Photophobia, Recent Change in Vision, Other HENT: denies: No Symptoms, Difficult Swallowing, Ear Discharge, Ear Pain, Epistaxis, Gingival Bleeding, Hearing Loss, Mouth Swelling, Nasal Congestion, Ocular Prosthesis, Throat Pain, Toothache, Ringing in Ears, Other Neck: denies: No Symptoms, Decreased ROM, Lumps, Pain on Movement, Stiffness, Swollen Glands, Tenderness, Other Cardiovascular: denies: No Symptoms, Chest Pain, Edema, Palpitations, Shortness of Breath, Other Respiratory: denies: No Symptoms, Cough, Exercise Intolerance, Hemoptysis, Orthopnea, PND, Snoring, SOB, SOB on Exertion, Wheezing, Other Gastrointestinal: denies: No Symptoms, Abdominal Pain, Bloating, Constipation, Diarrhea, Dysphagia, Indigestion, Melena, Nausea, Rectal Bleeding, Vomiting, Vomiting Blood, Other Genitourinary: denies: No Symptoms, Burning, Discharge, Dysuria, Flank Pain, Frequency, Hematuria, Incontinence, Lesions, Menses, Pain, Testicular Mass, Testicular Pain, Testicular Swelling, Urgency, Vaginal Bleeding, Other Breasts: denies: No Symptoms Reported, See HPI, Breast Implants, Discharge from Nipple, Lumps, Pain, Skin Changes, Other Musculoskeletal: denies: No Symptoms, Back Pain, Crepitus, Decreased ROM, Extremity Pain, Joint Pain, Joint Swelling, Muscle Pain, Muscle Cramps, Muscle Weakness, Other Integumentary: denies: No Symptoms, Blister, Bruising, Change in Color, Eczema, Erythema, Incision, Lesions, Lump, Pallor, Pruritis, Rash, Wound, Other Neurological: reports: Syncope. denies: No Symptoms, Change in LOC, Change in Speech, Confusion, Dizziness, Headache, Incoordination, Numbness, Parasthesia, Pre-Existing Deficit, Seizure, Tremors, Unsteady Gait, Weakness, Other Endocrine: denies: No Symptoms, Excessive Sweating, Flushing, Increased Hunger, Increased Thirst, Intolerance to Cold, Intolerance to Heat, Unexplained Weight Gain, Unexplained Weight Loss, Other Hematology/Lymphatic: denies: No Symptoms, Easily Bruised, Excessive Bleeding, Swollen Glands, Other Psychiatric: denies: No Symptoms, Altered Sleep Pattern, Anxiety, Depression, Hallucinations, Panic, Paranoia, Suicidal, Other - Risk Factors Known Risk Factors: Yes: Diabetes Mellitus, Hypercholesterolemia, Hypertension Vital Signs: Vital Signs Temperature 98.2 F 09/29/17 09:00 Pulse Rate 88 09/29/17 09:00 Respiratory Rate 18 09/29/17 09:00 Blood Pressure 140/98 09/29/17 09:00 O2 Sat by Pulse Oximetry (%) 100 09/28/17 11:52 Constitutional: Yes: No Distress, Calm, Obese Eyes: Yes: Conjunctiva Clear, EOM Intact, PERRL HENT: Yes: Atraumatic, Normocephalic Neck: Yes: Supple, Trachea Midline Respiratory: Yes: Regular, Rhonchi. No: Rales, Wheezes Gastrointestinal: Yes: Normal Bowel Sounds, Soft. No: Distention, Tenderness Cardiovascular: Yes: Pulse Irregular. No: Regular Rate and Rhythm, Bradycardia , Tachycardia, Gallop, Rub, Varicosities JVD: No Carotid Bruit: No PMI: Non-Displaced Heart Sounds: Yes: S1, S2. No: Split S2, S3, S4, Clicks, Gallop, Rub, Bruit Murmur: Yes: Systolic Murmur. No: Diastolic Murmur Extremities: Yes: WNL Edema: No Peripheral Pulses WNL: Yes Peripheral Pulses: 2+ Left Doralis Pedis, 2+ Right Dorsalis Pedis Integumentary: Yes: WNL Neurological: Yes: Alert, Oriented Psychiatric: Yes: Alert, Oriented - Other Data Labs, Other Data: CBC, BMP 09/29/17 06:00 09/29/17 06:00 INR, PTT INR 1.99 (0.82-1.09) H 09/29/17 06:00 Troponin, BNP 09/28/17 12:25 Troponin I 0.05 Troponin, BNP 09/28/17 12:25 Troponin I 0.05 ekg-AF, HR controlled, no sig ST abnl Echo: Report Reviewed Imaging - Results Chest X-ray: Report Reviewed, Image Reviewed EKG: Report Reviewed, Image Reviewed Other: Report Reviewed, Image Reviewed (tele-Afib, HR overall controlled, 4 beats NSVT) Assessment/Plan 77 year old woman with a 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 Pt was seen and examined today in [facility]. she does not recall the event. As per report she was at home with her daughter and lost consciousness. Pt states she overall has been feeling improved. no worsening of chronic sob. no chest pain, palpitations , pnd, orthopnea, or LE edema. no palpitations. Presumed syncope-unknown etiology -no events on telemetry thus far, cont tele monitoring -check orthostatic BP -echo was ordered, f/up results -Neurology evaluation -inr subtherapeutic on presentation, low suspicion for pulmonary embolism at this time -uncertain etiology of elevated lactate AFib-HR adequately controlled currently -cont current medical regimen -cont coumadin for goal INR 2-3 Bio MVR -f/up echo -outpatient f/up
[2017-09-29] MEDS: NEBIVOLOL 2.5 MG TABLET (FP) PO SCH (10:45)
--- NOTE | 2017-09-29 11:41 | PN ---
Progress Note, Physician Chief Complaint: ID Full note dictated Sitting in a chair afebrile N complaints - Current Medication List Current Medications: Active Medications Aspirin (Asa -) 81 mg PO DAILY [facility] Last Admin: 09/29/17 10:34 Dose: 81 mg Budesonide (Pulmicort 0.25 Mg Nebulizer -) 1 amp NEB BID [facility] Last Admin: 09/29/17 10:00 Dose: 1 amp Digoxin (Lanoxin -) 0.125 mg PO DAILY [facility] Last Admin: 09/29/17 10:34 Dose: 0.125 mg Diltiazem HCl (Cardizem Cd -) 360 mg PO DAILY [facility] Last Admin: 09/29/17 10:35 Dose: 360 mg Enoxaparin Sodium (Lovenox -) 80 mg SQ BID [facility] Last Admin: 09/29/17 10:34 Dose: 80 mg Levofloxacin (Levaquin 500 Mg Premixed Ivpb -) 500 mg in 100 mls @ 100 mls/hr IVPB DAILY [facility] Last Admin: 09/29/17 10:34 Dose: 100 mls/hr Sodium Chloride (Normal Saline -) 1,000 mls @ 83 mls/hr IV ASDIR [facility] Last Admin: 09/28/17 14:14 Dose: 83 mls/hr Vancomycin HCl 1,000 mg/ (Dextrose) 250 mls @ 250 mls/hr IVPB BID [facility] PRN Reason: Protocol Insulin Aspart (Novolog Vial Sliding Scale -) 1 vial SQ ACHS [facility] PRN Reason: Protocol Last Admin: 09/29/17 06:40 Dose: Not Given Methylprednisolone Sodium Succinate (Solu-Medrol -) 40 mg IVPUSH BID [facility] Last Admin: 09/29/17 10:34 Dose: 40 mg Montelukast Sodium (Singulair -) 10 mg PO HS [facility] Last Admin: 09/28/17 21:33 Dose: 10 mg Nebivolol (Bystolic -) 2.5 mg PO DAILY [facility] Last Admin: 09/29/17 10:45 Dose: 2.5 mg Warfarin Sodium (Coumadin -) 3 mg PO DAILY@1800 [facility] Last Admin: 09/28/17 17:26 Dose: 3 mg - Objective Vital Signs: Vital Signs Temperature 98.2 F 09/29/17 09:00 Pulse Rate 94 H 09/29/17 10:34 Respiratory Rate 18 09/29/17 09:00 Blood Pressure 140/98 09/29/17 09:00 O2 Sat by Pulse Oximetry (%) 100 09/28/17 11:52 Constitutional: Yes: No Distress Neck: Yes: WNL, Supple Cardiovascular: Yes: Regular Rate and Rhythm, S1, S2 Respiratory: Yes: WNL, Regular, CTA Bilaterally. No: Rales, Rhonchi Gastrointestinal: Yes: Soft. No: Tenderness, Tenderness, Epigastrium Edema: No Labs: CBC, BMP 09/29/17 06:00 09/29/17 06:00 INR, PTT INR 1.99 (0.82-1.09) H 09/29/17 06:00 Problem List - Problems (1) Elevated lactic acid level Code(s): R79.89 - OTHER SPECIFIED ABNORMAL FINDINGS OF BLOOD CHEMISTRY (2) Elevated lactic acid level Code(s): R79.89 - OTHER SPECIFIED ABNORMAL FINDINGS OF BLOOD CHEMISTRY (3) Sepsis Code(s): A41.9 - SEPSIS, UNSPECIFIED ORGANISM (4) H/O heart valve replacement with bioprosthetic valve Code(s): Z95.3 - PRESENCE OF XENOGENIC HEART VALVE Assessment/Plan Microbiology Laboratory Tests 09/28/17 09/28/17 09/29/17 05:18 16:27 06:00 WBC 9.9 Hgb 10.9 Hct 35.0 Plt Count 168 Neutrophils % (Manual) 91.8 H* D Lymphocytes % (Manual) 7.2 L D Monocytes % (Manual) 1 L INR BUN Creat Clearance w eGFR Lactic Acid 2.2 H* Total Bilirubin AST ALT Alkaline Phosphatase Ur Leukocyte Esterase Negative 09/29/17 09/29/17 09/29/17 06:00 06:00 06:00 WBC Hgb Hct Plt Count Neutrophils % (Manual) Lymphocytes % (Manual) Monocytes % (Manual) INR 1.99 H BUN 12 D Creat Clearance w eGFR > 60 Lactic Acid 3.0 H* Total Bilirubin 0.3 AST 13 L ALT 18 Alkaline Phosphatase 50 Ur Leukocyte Esterase Assessment Episode of confusion yesterday weakness No fever chills or other complaints. Recent heart valve replacment ? Rowan Muñoz 6 months ago. I cannot find any source of fever and she appears very comfortable now and alert oriented. Elevated Lactic acid noted Blood cultures negative this morning. 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
[2017-09-29 12:15] LABS: C-REACTIVE PROTEIN 1.1 MG/DL (0.00-0.3)
--- NOTE | 2017-09-29 12:22 | PN ---
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 ,LOCULATED FLUID ,DOUBT MALIGNANT WAS NOT PRESENT ON PREVIOUS CT IN FEBRUARY 2017 PRIOR TO MVR ELEVATED LACTATE LEVEL HTM AFIB H/O DVT PLAN INHALED BRONCHODILATORS O2 AC PER INR CARDIAC W/U PET SCAN OUTPATIENT TO FURTHER EVALUATE LEFT LUNG MASS TREND LACTATE CULTURES DR YE Problem List - Problems (1) Confusion Code(s): R41.0 - DISORIENTATION, UNSPECIFIED (2) Elevated lactic acid level Code(s): R79.89 - OTHER SPECIFIED ABNORMAL FINDINGS OF BLOOD CHEMISTRY (3) Fall Code(s): W19.XXXA - UNSPECIFIED FALL, INITIAL ENCOUNTER (4) H/O heart valve replacement with bioprosthetic valve Code(s): Z95.3 - PRESENCE OF XENOGENIC HEART VALVE (5) Anemia Code(s): D64.9 - ANEMIA, UNSPECIFIED Qualifiers: Anemia type: other cause Other causes of anemia: acute posthemorrhagic Qualified Code(s): D62 - Acute posthemorrhagic anemia (6) Asthma Code(s): J45.909 - UNSPECIFIED ASTHMA, UNCOMPLICATED Qualifiers: Asthma severity: mild persistent (7) Atrial fibrillation Code(s): I48.91 - UNSPECIFIED ATRIAL FIBRILLATION Qualifiers: Atrial fibrillation type: permanent Qualified Code(s): I48.2 - Chronic atrial fibrillation (8) CHF (congestive heart failure) Code(s): I50.9 - HEART FAILURE, UNSPECIFIED (9) History of mitral valve replacement with bioprosthetic valve Code(s): Z95.3 - PRESENCE OF XENOGENIC HEART VALVE (10) Lung mass Code(s): R91.8 - OTHER NONSPECIFIC ABNORMAL FINDING OF LUNG FIELD (11) Syncope Code(s): R55 - SYNCOPE AND COLLAPSE
[2017-09-29] MEDS: SODIUM CHLORIDE 1,000 ML IV SCH (18:00)
[2017-09-29] MEDS: WARFARIN NA 3 MG TABLET PO SCH (18:01)
--- NOTE | 2017-09-29 18:53 | CONS ---
DATE OF CONSULTATION: DATE OF DICTATION: 09/29/2017 INFECTIOUS DISEASE CONSULTATION HISTORY OF PRESENT ILLNESS: This is a 77-year-old -[place] female who I am asked to see for possible sepsis on telemetry. The patient has a history of chronic atrial fibrillation and is status post mitral valve replacement at [facility] approximately 6 months ago. She has been on anticoagulation at home and presents now after she apparently fell out of bed and may have lost consciousness, although she denies any history of hitting her head. At the time of her evaluation yesterday, according to Dr. Perez, the patient appeared lethargic but was arousable. She had no fever or chills, and based on a lactic acid level, and her mental status, was given a dose of vancomycin and levofloxacin. Blood cultures were drawn, which as of this dictation are no growth. The patient has no chest pain, shortness of breath, visual complaints, urinary tract symptoms, skin rash, joint pains, or other systemic complaints. At the time of my evaluation, she was sitting in a chair looking quite comfortable and oriented. PAST MEDICAL HISTORY: As noted above. Prior history includes history of osteomyelitis and internal jugular vein thrombosis, asthma, GERD, osteoarthritis, hypothyroidism, tubal ligation. MEDICATION: Include Lanoxin, Pulmicort, aspirin, Lasix, Glucophage, Singulair, Bystolic, and Coumadin. FAMILY HISTORY: Positive for diabetes and hypertension. REVIEW OF SYSTEMS: Respiratory: No cough, shortness of breath. Cardiac: No chest pain, palpitations, syncope. Gastrointestinal: No nausea, vomiting, abdominal pain, diarrhea. Genitourinary: No dysuria, hematuria, urinary frequency. PHYSICAL EXAMINATION: General: She was an alert female in no acute distress. Vital signs: Her temperature was 98.2, pulse 94, blood pressure 149/98, respirations 18. Neck: Supple without adenopathy. Lungs: Clear to percussion/auscultation. Heart: S1, S2. Regular rhythm. Abdomen: Soft. Nontender without hepatosplenomegaly. Extremities: Without clubbing, cyanosis, or edema. LABORATORY: White count initially 11.4, hemoglobin 11.4, platelets of 175 with 92% polycytes, 3 lymphocytes, 4 metamyelocytes. INR 1.99, BUN 12, creatinine 0.6, lactic acid 2.2, and today 3.0. Liver enzymes within normal limits. Urinalysis screening negative for leukocyte esterase. A CAT scan of the chest and abdomen, both of which were reviewed shows no evidence of acute infection, pneumonia, or intraabdominal abscess. CAT scan of the head shows no evidence for acute CVA. ASSESSMENT: A 77-year-old female status post mitral valve replacement 6 months ago presents now with generalized weakness, falling at home. By history and examination, I find no source of infection. She appears alert and in good spirits with no fever, a normal white count, and thus far negative blood cultures. She has a history of allergies to AMPICILLIN manifesting with facial swelling and is currently on levofloxacin. PLAN: I have discussed the case with Dr. Perez, and given the absence of any symptoms and thus far negative blood cultures, I am inclined to discontinue all antibiotics and observe. She appears stable at the current time with preliminary negative blood culture results. As to the lactic acid, I am not sure why the elevation, but at this point she does not meet criteria for sepsis, and once again will stop antibiotics and monitor closely. MARCELA CABALLERO M.D. [id number]
--- NOTE | 2017-09-29 19:08 | CONS ---
DATE OF CONSULTATION: 09/29/2017 PULMONARY CONSULTATION REFERRING PHYSICIAN: Escobar Perez M.D. HISTORY OF PRESENT ILLNESS: The patient is a 77-year-old black female known to me from previous hospitalization and office followup with a past medical history of atrial fibrillation maintained on Coumadin and congestive heart failure, hypertension status post mitral valve replacement June 2017, osteoarthritis, COPD, chronic asthma, multiple hospitalizations secondary to asthma exacerbation, hypothyroidism, admitted to [facility] on September 28 status post fall. Patient apparently fell out of a chair and may have lost consciousness. Denied any chest pain, nausea, vomiting, or diaphoresis. She cannot recall how she felt. She presented to the emergency room with the above. On admission, she was noted to have an elevated white count showing an elevated lactate level. She was admitted to telemetry unit and started on antibiotic therapy and possible sepsis. She is a nonsmoker. There is no history of occupational exposure to chemicals or fumes. As stated before, she has had a longstanding history of asthma and multiple hospitalizations in the past requiring BiPAP as well as the respiratory ventilatory support. There is no history of recent travel. There is a history of DVT in the past. PAST MEDICAL HISTORY: Again includes atrial fibrillation, hypertension, asthma, hypothyroidism, mitral valve replacement, osteoarthritis, hypothyroidism, congestive heart failure. REVIEW OF SYSTEMS: Positive orthopnea. Positive dyspnea. No chest pain. No palpitations. No headache. No visual disturbances. No chest pain. No abdominal pain. CURRENT MEDICATIONS: Include Pulmicort, Solu-Medrol, Lovenox, Coumadin, Bystolic, Cardizem CD, Lanoxin, normal saline, Novolog, Singulair, and aspirin. PHYSICAL EXAMINATION: General: The patient is a well-developed, well-nourished black female, awake, alert, in no acute distress. Vital signs: She is currently afebrile. Blood pressure 140/98, respiratory rate 18, and O2 saturation is 100% on 2 L. HEENT: Head is normocephalic, atraumatic. Neck: Supple. Heart: Irregularly irregular. Normal S1, S2. Chest: Bibasilar crackles. Abdomen: Soft. Bowel sounds positive. Extremities: No cyanosis, edema. LABORATORY: WBC is 9.9, hemoglobin 10.9, hematocrit 35, platelet count of 168,000. There are 91 polycytes, 7 lymphocytes, and 1 monocytes. INR is 1.99. Blood gas: pH of 7.44, pCO2 of 36, pO2 of 91, bicarbonate of 24, and a saturation of 98.1. Chemistries: BUN 12, creatinine 0.6, lactate level 3.0. Chest CT reveals a 4.3 x 3.2 x 4.2 hypodense mask abutting the left heart border, looks like mostly comprised of fluid density, looks like a pericardial cyst. There was no evidence of acute infiltrates or effusion, multiple hepatic hypodensities representing cysts. IMPRESSION: 1. Syncopal episode, etiology . 2. History of asthma. 3. 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 This occurred it was noted on previous exam in July post mitral valve surgery. 4. Partial infectious process. 5. Atrial fibrillation. 6. Hypertension. PLAN: Antibiotics as per ID. Supplemental O2. Inhaled bronchodilators. Steroids. Also obtain PET scan as outpatient to confirm that left lung mass is indeed pericardial cyst and/or loculated fluid and to rule out possible malignant etiology. VANDANA YE M.D. 1 [id number]
--- NOTE | 2017-09-29 21:14 | CONSULT ---
Consult - text type - Consultation Consultation Note: NEUROLOGY CONSULTATION is greatly appreciated: This77 yo [place] woman lives with her daughter. PMH sig for HTN, Hypothyroidism, DM, Asthma/COPD, OA, ASHD, AFib, s/p MVR. Maintained on Bystolic, ASA, Metformin, Pulmacort, Singulair, Digoxin, Coumadin. Admitted after a fall, possible syncope although the records don't indicate how this history was obtained. Pt. claims she came to the ER for SOB. She claims her daughter was home but there is no mention of her as a witness or historical source. One note mentions memory decline. Recently hospitalized for exacerbation of COPD. Pt had CT of head (07/30/17) during that admission. CT in ER (reviewed): Moderate, diffuse, atrophy; ex vacuo ventricular enlargement,; diffuse microvascular changes. JOSE L: No evidence of external head trauma. No bruits. Cor: Irreg/irreg, Neuro: Pt. appears confused. Ox [facility]. Jul, 2017. Recalls 2 of 3 @ 3 mins. + Glabella, snout, grasps. Speech fluent. CN II-XII: Normal without nystagmus Motor: No drift or tremor. Normal strength, bulk tone and reflexes. Toes downgoing. Coord: No FTN Dystaxia Sensory: Normal Gait: Sl shuffle. IMP: Non-focal exam suggesting mild-moderate, B/L cerebral dysfunction (OMS). Possible syncope vs. simple fall. SUGGEST: Check B12, TSH, RPR. Orthostatic BP's. Give thiamine. Continue telemetry and cardiology evaluation PT eval and Rx for gait safety. 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 Thank you very much, Chalo Traore MD
[2017-09-29] MEDS: MONTELUKAST NA 10 MG TABLET PO SCH (22:15)
[2017-09-29] MEDS: THIAMINE HCL 200 MG/2 ML VIAL IVPB SCH (22:15)
--- NOTE | 2017-09-30 01:23 | EKG ---
Test Reason : Blood Pressure : / mmHG Vent. Rate : 091 BPM Atrial Rate : 441 BPM P-R Int : 000 ms QRS Dur : 076 ms QT Int : 342 ms P-R-T Axes : 000 -21 198 degrees QTc Int : 420 ms ATRIAL FIBRILLATION NONSPECIFIC T WAVE ABNORMALITY ABNORMAL ECG WHEN COMPARED WITH ECG OF 28-SEP-2017 00:29, NO SIGNIFICANT CHANGE WAS FOUND Confirmed by RAYMOND CADENA MD ([id number]) on 09/30/2017 1:23:22 AM Referred By: Confirmed By:RAYMOND CADENA MD
--- NOTE | 2017-09-30 01:40 | EKG ---
Test Reason : Blood Pressure : / mmHG Vent. Rate : 088 BPM Atrial Rate : 048 BPM P-R Int : 000 ms QRS Dur : 084 ms QT Int : 344 ms P-R-T Axes : 000 -14 203 degrees QTc Int : 416 ms ATRIAL FIBRILLATION NONSPECIFIC ST AND T WAVE ABNORMALITY ABNORMAL ECG WHEN COMPARED WITH ECG OF 13-AUG-2017 10:24, T WAVE VARIATION Confirmed by RAYMOND CADENA MD ([id number]) on 09/30/2017 1:39:40 AM Referred By: Confirmed By:RAYMOND CADENA MD
[2017-09-30] MEDS: THIAMINE HCL 200 MG/2 ML VIAL IVPB SCH ×3 (02:50→17:15)
[2017-09-30] MEDS: INSULIN SLIDING SCALE (NOVOLOG) 1 VIAL SQ SCH ×4 (06:03→21:28)
[2017-09-30] MEDS ORDERED: PT OWN MED DRAWER 7, Y5N ONE ×3 (08:06→10:00)
[2017-09-30 08:32] LABS: MCH 28.3 pg (25.7-33.7); MCHC 30.6 g/dl (32.0-36.0); MEAN CELL VOLUME 92.5 fl (80-96); MEAN PLT VOLUME 8.7 fl (7.5-11.1); PLATELET COUNT 170 K/MM3 (134-434); RDW 18.3 % (11.6-15.6); WHITE BLOOD COUNT 11.6 K/mm3 (4.0-10.0)
--- NOTE | 2017-09-30 08:36 | PN ---
Progress Note, Physician History of Present Illness: looks better today alert and oriented - Current Medication List Current Medications: Active Medications Aspirin (Asa -) 81 mg PO DAILY [facility] Last Admin: 09/29/17 10:34 Dose: 81 mg Budesonide (Pulmicort 0.25 Mg Nebulizer -) 1 amp NEB BID [facility] Last Admin: 09/29/17 22:30 Dose: 1 amp Digoxin (Lanoxin -) 0.125 mg PO DAILY [facility] Last Admin: 09/29/17 10:34 Dose: 0.125 mg Diltiazem HCl (Cardizem Cd -) 360 mg PO DAILY [facility] Last Admin: 09/29/17 10:35 Dose: 360 mg Enoxaparin Sodium (Lovenox -) 80 mg SQ BID [facility] Last Admin: 09/29/17 22:15 Dose: 80 mg Sodium Chloride (Normal Saline -) 1,000 mls @ 83 mls/hr IV ASDIR [facility] Last Admin: 09/29/17 18:00 Dose: 83 mls/hr Insulin Aspart (Novolog Vial Sliding Scale -) 1 vial SQ ACHS [facility] PRN Reason: Protocol Last Admin: 09/30/17 06:03 Dose: 2 units Methylprednisolone Sodium Succinate (Solu-Medrol -) 40 mg IVPUSH BID [facility] Last Admin: 09/29/17 22:15 Dose: 40 mg Montelukast Sodium (Singulair -) 10 mg PO HS [facility] Last Admin: 09/29/17 22:15 Dose: 10 mg Nebivolol (Bystolic -) 2.5 mg PO DAILY [facility] Last Admin: 09/29/17 10:45 Dose: 2.5 mg Thiamine HCl (Vitamin B1 Injection -) 200 mg IVPB Q8H-IV [facility] Stop: 10/02/17 18:01 Last Admin: 09/30/17 02:50 Dose: 200 mg Warfarin Sodium (Coumadin -) 3 mg PO DAILY@1800 [facility] Last Admin: 09/29/17 18:01 Dose: 3 mg - Objective Vital Signs: Vital Signs Temperature 98.4 F 09/30/17 07:59 Pulse Rate 84 09/30/17 07:59 Respiratory Rate 16 09/30/17 07:59 Blood Pressure 136/94 09/30/17 07:59 O2 Sat by Pulse Oximetry (%) 95 09/29/17 21:00 Cardiovascular: Yes: S1, S2 Respiratory: Yes: Regular, CTA Bilaterally Gastrointestinal: Yes: Normal Bowel Sounds, Soft Neurological: Yes: Alert, Oriented Labs: CBC, BMP 09/30/17 07:00 INR, PTT INR 1.99 (0.82-1.09) H 09/29/17 06:00 Problem List - Problems (1) Sepsis Assessment/Plan: ivf offviv abx bc.uc,ct scan noted echo Laboratory Tests 09/28/17 09/28/17 09/28/17 00:48 06:22 16:27 Lactic Acid 3.3 H* 3.1 H* 2.2 H* d/w dr pradhan dc abx and observe no source Code(s): A41.9 - SEPSIS, UNSPECIFIED ORGANISM (2) Atrial fibrillation Assessment/Plan: coumadin lovenox since inr sub-therapeutic monitor rate on current meds cardio Code(s): I48.91 - UNSPECIFIED ATRIAL FIBRILLATION Qualifiers: Atrial fibrillation type: permanent Qualified Code(s): I48.2 - Chronic atrial fibrillation (3) Confusion Assessment/Plan: as above--maybe syncope neuro consult ct head nad Code(s): R41.0 - DISORIENTATION, UNSPECIFIED (4) COPD (chronic obstructive pulmonary disease) Assessment/Plan: nebs steroids decrease to bid Code(s): J44.9 - CHRONIC OBSTRUCTIVE PULMONARY DISEASE, UNSPECIFIED
[2017-09-30 09:16] LABS: ALBUMIN 2.7 g/dl (3.4-5.0); ANION GAP 12 (8-16); CALCIUM 8.5 mg/dL (8.5-10.1); CO2 23 mmol/L (21-32); CREATININE 0.6 mg/dL (0.55-1.02); GLUCOSE,RANDOM 179 mg/dL (74-106); SGOT/AST 25 U/L (15-37); SGPT/ALT 25 U/L (12-78); TOT PROT 5.4 g/dl (6.4-8.2)
[2017-09-30] MEDS: NEBIVOLOL 2.5 MG TABLET (FP) PO SCH (09:27)
[2017-09-30] MEDS: ENOXAPARIN NA (PORCINE) 80 MG/0.8 ML DISP.SYRIN SQ SCH (09:28)
[2017-09-30] MEDS: methylPREDNISolone NA SUCC 40 MG/1 ML VIAL IVPUSH SCH ×2 (09:28→21:28)
[2017-09-30] MEDS: DIGOXIN 0.125 MG TABLET (FP) PO SCH (09:29)
[2017-09-30] MEDS: ASPIRIN 81 MG CHEWABLE TABLETS PO SCH (09:29)
[2017-09-30 09:41] LABS: ALK PHOS 46 U/L (45-117); BILIRUBIN,TOTAL 0.3 mg/dL (0.2-1.0); CPK 19 IU/L (26-192); TROPONIN I 0.04 ng/ml (0.00-0.05)
[2017-09-30] MEDS: SODIUM CHLORIDE 1,000 ML IV SCH ×2 (09:53→12:42)
--- NOTE | 2017-09-30 10:07 | PN ---
Progress Note, Physician Chief Complaint: feeling better TELE: Controlled AF, some pauses while asleep under 3 seconds - Current Medication List Current Medications: Active Medications Aspirin (Asa -) 81 mg PO DAILY [facility] Last Admin: 09/30/17 09:29 Dose: 81 mg Budesonide (Pulmicort 0.25 Mg Nebulizer -) 1 amp NEB BID [facility] Last Admin: 09/29/17 22:30 Dose: 1 amp Digoxin (Lanoxin -) 0.125 mg PO DAILY [facility] Last Admin: 09/30/17 09:29 Dose: 0.125 mg Diltiazem HCl (Cardizem Cd -) 360 mg PO DAILY [facility] Last Admin: 09/30/17 09:28 Dose: 360 mg Enoxaparin Sodium (Lovenox -) 80 mg SQ BID [facility] Last Admin: 09/30/17 09:28 Dose: 80 mg Sodium Chloride (Normal Saline -) 1,000 mls @ 83 mls/hr IV ASDIR [facility] Last Admin: 09/30/17 09:53 Dose: 83 mls/hr Insulin Aspart (Novolog Vial Sliding Scale -) 1 vial SQ ACHS [facility] PRN Reason: Protocol Last Admin: 09/30/17 06:03 Dose: 2 units Methylprednisolone Sodium Succinate (Solu-Medrol -) 40 mg IVPUSH BID [facility] Last Admin: 09/30/17 09:28 Dose: 40 mg Montelukast Sodium (Singulair -) 10 mg PO HS [facility] Last Admin: 09/29/17 22:15 Dose: 10 mg Nebivolol (Bystolic -) 2.5 mg PO DAILY [facility] Last Admin: 09/30/17 09:27 Dose: 2.5 mg Thiamine HCl (Vitamin B1 Injection -) 200 mg IVPB Q8H-IV [facility] Stop: 10/02/17 18:01 Last Admin: 09/30/17 09:29 Dose: 200 mg Warfarin Sodium (Coumadin -) 3 mg PO DAILY@1800 [facility] Last Admin: 09/29/17 18:01 Dose: 3 mg - Objective Vital Signs: Vital Signs Temperature 98.4 F 09/30/17 07:59 Pulse Rate 87 09/30/17 09:29 Respiratory Rate 16 09/30/17 07:59 Blood Pressure 136/94 09/30/17 07:59 O2 Sat by Pulse Oximetry (%) 95 09/29/17 21:00 Constitutional: Yes: No Distress, Calm HENT: Yes: Atraumatic Cardiovascular: Yes: Pulse Irregular Respiratory: Yes: CTA Bilaterally Gastrointestinal: Yes: Soft, Abdomen, Obese Edema: No Neurological: Yes: Alert, Oriented Labs: CBC, BMP 09/30/17 07:00 09/30/17 07:00 INR, PTT INR 1.99 (0.82-1.09) H 09/29/17 06:00 Laboratory Tests 09/29/17 09/30/17 09/30/17 06:00 07:00 07:00 WBC 11.6 H Hgb 10.5 L Plt Count 170 INR 1.99 H Sodium 142 Potassium 4.2 Creatinine 0.6 Assessment/Plan Assessment/Plan 77 year old woman with a 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 Presumed syncope-unknown etiology -no events on telemetry thus far, cont tele monitoring -check orthostatic BP -Neurology evaluation pending -inr subtherapeutic on presentation, low suspicion for pulmonary embolism at this time -uncertain etiology of elevated lactate AFib-HR adequately controlled currently -cont current medical regimen -cont coumadin for goal INR 2-3 Bio MVR - echo shows Ca2= vs veg on aortic valve -Cultures pending, negative to date.
[2017-09-30] MEDS: BUDESONIDE 0.25 MG/2ML INH SUSP VIAL NEB SCH ×2 (10:28→22:17)
--- NOTE | 2017-09-30 10:51 | PN ---
Progress Note, Physician History of Present Illness: pulmonary alert,comfortable,-resp distress - Current Medication List Current Medications: Active Medications Aspirin (Asa -) 81 mg PO DAILY [facility] Last Admin: 09/30/17 09:29 Dose: 81 mg Budesonide (Pulmicort 0.25 Mg Nebulizer -) 1 amp NEB BID [facility] Last Admin: 09/30/17 10:28 Dose: 1 amp Digoxin (Lanoxin -) 0.125 mg PO DAILY [facility] Last Admin: 09/30/17 09:29 Dose: 0.125 mg Diltiazem HCl (Cardizem Cd -) 360 mg PO DAILY [facility] Last Admin: 09/30/17 09:28 Dose: 360 mg Enoxaparin Sodium (Lovenox -) 80 mg SQ BID [facility] Last Admin: 09/30/17 09:28 Dose: 80 mg Sodium Chloride (Normal Saline -) 1,000 mls @ 83 mls/hr IV ASDIR [facility] Last Admin: 09/30/17 09:53 Dose: 83 mls/hr Insulin Aspart (Novolog Vial Sliding Scale -) 1 vial SQ ACHS [facility] PRN Reason: Protocol Last Admin: 09/30/17 06:03 Dose: 2 units Methylprednisolone Sodium Succinate (Solu-Medrol -) 40 mg IVPUSH BID [facility] Last Admin: 09/30/17 09:28 Dose: 40 mg Montelukast Sodium (Singulair -) 10 mg PO HS [facility] Last Admin: 09/29/17 22:15 Dose: 10 mg Nebivolol (Bystolic -) 2.5 mg PO DAILY [facility] Last Admin: 09/30/17 09:27 Dose: 2.5 mg Thiamine HCl (Vitamin B1 Injection -) 200 mg IVPB Q8H-IV [facility] Stop: 10/02/17 18:01 Last Admin: 09/30/17 09:29 Dose: 200 mg Warfarin Sodium (Coumadin -) 3 mg PO DAILY@1800 [facility] Last Admin: 09/29/17 18:01 Dose: 3 mg - Objective Vital Signs: Vital Signs Temperature 98.4 F 09/30/17 07:59 Pulse Rate 87 09/30/17 09:29 Respiratory Rate 16 09/30/17 07:59 Blood Pressure 136/94 09/30/17 07:59 O2 Sat by Pulse Oximetry (%) 95 09/29/17 21:00 Constitutional: Yes: Well Nourished, Calm Eyes: Yes: WNL HENT: Yes: WNL Neck: Yes: WNL Cardiovascular: Yes: Pulse Irregular, S1, S2 Respiratory: Yes: Rales (bilateral rales 1/3 up) Gastrointestinal: Yes: Normal Bowel Sounds, Soft Extremities: Yes: WNL Edema: No Labs: CBC, BMP 09/30/17 07:00 09/30/17 07:00 INR, PTT INR 1.99 (0.82-1.09) H 09/29/17 06:00 Problem List - Problems (1) Confusion Code(s): R41.0 - DISORIENTATION, UNSPECIFIED (2) Elevated lactic acid level Code(s): R79.89 - OTHER SPECIFIED ABNORMAL FINDINGS OF BLOOD CHEMISTRY (3) Fall Code(s): W19.XXXA - UNSPECIFIED FALL, INITIAL ENCOUNTER (4) H/O heart valve replacement with bioprosthetic valve Code(s): Z95.3 - PRESENCE OF XENOGENIC HEART VALVE (5) Anemia Code(s): D64.9 - ANEMIA, UNSPECIFIED Qualifiers: Anemia type: other cause Other causes of anemia: acute posthemorrhagic Qualified Code(s): D62 - Acute posthemorrhagic anemia (6) Asthma Code(s): J45.909 - UNSPECIFIED ASTHMA, UNCOMPLICATED Qualifiers: Asthma severity: mild persistent (7) Atrial fibrillation Code(s): I48.91 - UNSPECIFIED ATRIAL FIBRILLATION Qualifiers: Atrial fibrillation type: permanent Qualified Code(s): I48.2 - Chronic atrial fibrillation (8) CHF (congestive heart failure) Code(s): I50.9 - HEART FAILURE, UNSPECIFIED (9) History of mitral valve replacement with bioprosthetic valve Code(s): Z95.3 - PRESENCE OF XENOGENIC HEART VALVE (10) Lung mass Code(s): R91.8 - OTHER NONSPECIFIC ABNORMAL FINDING OF LUNG FIELD (11) Syncope Code(s): R55 - SYNCOPE AND COLLAPSE Assessment/Plan IMP SYNCOPE ASTHMA L LUNG MASS 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 ,LOCULATED FLUID ,DOUBT MALIGNANT WAS NOT PRESENT ON PREVIOUS CT IN FEBRUARY 2017 PRIOR TO MVR ELEVATED LACTATE LEVEL HTM AFIB H/O DVT PLAN INHALED BRONCHODILATORS O2 AC PER INR PET SCAN OUTPATIENT TO FURTHER EVALUATE LEFT LUNG MASS TREND LACTATE DR YE Problem List - Problems (1) Confusion Code(s): R41.0 - DISORIENTATION, UNSPECIFIED (2) Elevated lactic acid level Code(s): R79.89 - OTHER SPECIFIED ABNORMAL FINDINGS OF BLOOD CHEMISTRY (3) Fall Code(s): W19.XXXA - UNSPECIFIED FALL, INITIAL ENCOUNTER (4) H/O heart valve replacement with bioprosthetic valve Code(s): Z95.3 - PRESENCE OF XENOGENIC HEART VALVE (5) Anemia Code(s): D64.9 - ANEMIA, UNSPECIFIED Qualifiers: Anemia type: other cause Other causes of anemia: acute posthemorrhagic Qualified Code(s): D62 - Acute posthemorrhagic anemia (6) Asthma Code(s): J45.909 - UNSPECIFIED ASTHMA, UNCOMPLICATED Qualifiers: Asthma severity: mild persistent (7) Atrial fibrillation Code(s): I48.91 - UNSPECIFIED ATRIAL FIBRILLATION Qualifiers: Atrial fibrillation type: permanent Qualified Code(s): I48.2 - Chronic atrial fibrillation (8) CHF (congestive heart failure) Code(s): I50.9 - HEART FAILURE, UNSPECIFIED (9) History of mitral valve replacement with bioprosthetic valve Code(s): Z95.3 - PRESENCE OF XENOGENIC HEART VALVE (10) Lung mass Code(s): R91.8 - OTHER NONSPECIFIC ABNORMAL FINDING OF LUNG FIELD (11) Syncope Code(s): R55 - SYNCOPE AND COLLAPSE
[2017-09-30 11:28] LABS: INR 2.8 (0.82-1.09); PROTHROMBIN TIME (PATIENT) 31.6 SEC (9.98-11.88)
[2017-09-30 13:40] LABS: THYROXINE (T4) 7.9 ug/dl (4.8-13.9)
--- NOTE | 2017-09-30 16:13 | PN ---
Progress Note (short form) - Note Progress Note: doing well alert NAD Vital Signs Period Temp Pulse Resp BP Sys/Urrutia Pulse Ox Last 24 Hr 97.3 F-99.5 F 69-88 16- 121-154/61-94 95 cor-rrr lungs decreased bs at bases abd soft,nt ext no edema CBC, BMP 09/30/17 07:00 09/30/17 07:00 Microbiology 09/28/17 12:25 Blood - Peripheral Venous Blood Culture - Preliminary NO GROWTH OBTAINED AFTER 48 HOURS, INCUBATION TO CONTINUE FOR 3 DAYS. 09/28/17 12:30 Blood - Peripheral Venous Blood Culture - Preliminary NO GROWTH OBTAINED AFTER 48 HOURS, INCUBATION TO CONTINUE FOR 3 DAYS. 09/28/17 05:18 Urine - Urine Clean Catch Urine Culture - Final Current Medications Aspirin (Asa -) 81 mg PO DAILY [facility] Last Admin: 09/30/17 09:29 Dose: 81 mg Budesonide (Pulmicort 0.25 Mg Nebulizer -) 1 amp NEB BID [facility] Last Admin: 09/30/17 10:28 Dose: 1 amp Digoxin (Lanoxin -) 0.125 mg PO DAILY [facility] Last Admin: 09/30/17 09:29 Dose: 0.125 mg Diltiazem HCl (Cardizem Cd -) 360 mg PO DAILY [facility] Last Admin: 09/30/17 09:28 Dose: 360 mg Sodium Chloride (Normal Saline -) 1,000 mls @ 83 mls/hr IV ASDIR [facility] Last Admin: 09/30/17 12:42 Dose: Not Given Insulin Aspart (Novolog Vial Sliding Scale -) 1 vial SQ ACHS [facility] PRN Reason: Protocol Last Admin: 09/30/17 11:37 Dose: Not Given Methylprednisolone Sodium Succinate (Solu-Medrol -) 40 mg IVPUSH BID [facility] Last Admin: 09/30/17 09:28 Dose: 40 mg Montelukast Sodium (Singulair -) 10 mg PO HS [facility] Last Admin: 09/29/17 22:15 Dose: 10 mg Nebivolol (Bystolic -) 2.5 mg PO DAILY [facility] Last Admin: 09/30/17 09:27 Dose: 2.5 mg Thiamine HCl (Vitamin B1 Injection -) 200 mg IVPB Q8H-IV [facility] Stop: 10/02/17 18:01 Last Admin: 09/30/17 09:29 Dose: 200 mg Warfarin Sodium (Coumadin -) 3 mg PO DAILY@1800 [facility] Last Admin: 09/29/17 18:01 Dose: 3 mg a/p leukocytosis secondary to steroids cultures are negative please call back if needed
[2017-09-30] MEDS: WARFARIN NA 3 MG TABLET PO SCH (17:15)
[2017-09-30] MEDS ORDERED: INSULIN (NOVOLOG) ASPART 100 UNITS/ML 10ML VIAL ONE (21:21)
[2017-09-30] MEDS: MONTELUKAST NA 10 MG TABLET PO SCH (21:28)
[2017-10-01] MEDS: THIAMINE HCL 200 MG/2 ML VIAL IVPB SCH ×3 (01:55→17:38)
[2017-10-01] MEDS: INSULIN SLIDING SCALE (NOVOLOG) 1 VIAL SQ SCH ×4 (06:11→21:35)
--- NOTE | 2017-10-01 08:55 | PN ---
Progress Note, Physician Chief Complaint: No new complaints TELE: AF, controlled. Pauses all < 3 seconds. - Current Medication List Current Medications: Active Medications Aspirin (Asa -) 81 mg PO DAILY [facility] Last Admin: 09/30/17 09:29 Dose: 81 mg Budesonide (Pulmicort 0.25 Mg Nebulizer -) 1 amp NEB BID [facility] Last Admin: 09/30/17 22:17 Dose: 1 amp Digoxin (Lanoxin -) 0.125 mg PO DAILY [facility] Last Admin: 09/30/17 09:29 Dose: 0.125 mg Diltiazem HCl (Cardizem Cd -) 360 mg PO DAILY [facility] Last Admin: 09/30/17 09:28 Dose: 360 mg Insulin Aspart (Novolog Vial Sliding Scale -) 1 vial SQ ACHS [facility] PRN Reason: Protocol Last Admin: 10/01/17 06:11 Dose: 2 units Montelukast Sodium (Singulair -) 10 mg PO HS [facility] Last Admin: 09/30/17 21:28 Dose: 10 mg Nebivolol (Bystolic -) 2.5 mg PO DAILY [facility] Last Admin: 09/30/17 09:27 Dose: 2.5 mg Thiamine HCl (Vitamin B1 Injection -) 200 mg IVPB Q8H-IV [facility] Stop: 10/02/17 18:01 Last Admin: 10/01/17 01:55 Dose: 200 mg Warfarin Sodium (Coumadin -) 3 mg PO DAILY@1800 [facility] Last Admin: 09/30/17 17:15 Dose: 3 mg - Objective Vital Signs: Vital Signs Temperature 97.4 F L 10/01/17 07:30 Pulse Rate 83 10/01/17 07:30 Respiratory Rate 16 10/01/17 07:30 Blood Pressure 150/94 10/01/17 07:30 O2 Sat by Pulse Oximetry (%) 98 09/30/17 21:00 Constitutional: Yes: Calm Eyes: Yes: Conjunctiva Clear Cardiovascular: Yes: Pulse Irregular Respiratory: Yes: CTA Bilaterally Gastrointestinal: Yes: Soft Edema: No Neurological: Yes: Alert, Oriented ...Motor Strength: WNL Labs: CBC, BMP 09/30/17 07:00 09/30/17 07:00 INR, PTT INR 2.80 (0.82-1.09) H D 09/30/17 10:46 Microbiology 09/28/17 12:30 Blood - Peripheral Venous Blood Culture - Preliminary NO GROWTH OBTAINED AFTER 48 HOURS, INCUBATION TO CONTINUE FOR 3 DAYS. 09/28/17 12:25 Blood - Peripheral Venous Blood Culture - Preliminary NO GROWTH OBTAINED AFTER 48 HOURS, INCUBATION TO CONTINUE FOR 3 DAYS. 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 Presumed syncope-unknown etiology -no events on telemetry thus far, cont tele monitoring -check orthostatic BP -Neurology evaluation pending -inr subtherapeutic on presentation, low suspicion for pulmonary embolism at this time AFib-HR adequately controlled currently -cont current medical regimen -cont coumadin for goal INR 2-3 Bio MVR - echo shows Ca2= vs veg on aortic valve -Cultures remain negative to date
[2017-10-01] MEDS ORDERED: PT OWN MED DRAWER 7, Y5N ONE (09:04)
[2017-10-01] MEDS: NEBIVOLOL 2.5 MG TABLET (FP) PO SCH (09:22)
[2017-10-01] MEDS: ASPIRIN 81 MG CHEWABLE TABLETS PO SCH (09:23)
[2017-10-01] MEDS: DIGOXIN 0.125 MG TABLET (FP) PO SCH (09:23)
[2017-10-01 09:29] LABS: BASO % 0.3 % (0-2.0); MCH 28.1 pg (25.7-33.7); MCHC 30.4 g/dl (32.0-36.0); MEAN CELL VOLUME 92.4 fl (80-96); MEAN PLT VOLUME 8.7 fl (7.5-11.1); NEUT % 87.5 % (42.8-82.8); PLATELET COUNT 161 K/MM3 (134-434); RDW 18.5 % (11.6-15.6); WHITE BLOOD COUNT 11.5 K/mm3 (4.0-10.0)
[2017-10-01 09:50] LABS: INR 3.4 (0.82-1.09); PROTHROMBIN TIME (PATIENT) 38.4 SEC (9.98-11.88)
[2017-10-01] MEDS: BUDESONIDE 0.25 MG/2ML INH SUSP VIAL NEB SCH ×2 (09:56→22:40)
[2017-10-01] MEDS: predniSONE 10 MG TABLET (UD) PO SCH (10:39)
--- NOTE | 2017-10-01 11:38 | PN ---
Progress Note, Physician History of Present Illness: pulmonary alert,oob-chair,-resp distress - Current Medication List Current Medications: Active Medications Aspirin (Asa -) 81 mg PO DAILY [facility] Last Admin: 10/01/17 09:23 Dose: 81 mg Budesonide (Pulmicort 0.25 Mg Nebulizer -) 1 amp NEB BID [facility] Last Admin: 10/01/17 09:56 Dose: 1 amp Digoxin (Lanoxin -) 0.125 mg PO DAILY [facility] Last Admin: 10/01/17 09:23 Dose: 0.125 mg Diltiazem HCl (Cardizem Cd -) 360 mg PO DAILY [facility] Last Admin: 10/01/17 09:23 Dose: 360 mg Insulin Aspart (Novolog Vial Sliding Scale -) 1 vial SQ ACHS [facility] PRN Reason: Protocol Last Admin: 10/01/17 06:11 Dose: 2 units Montelukast Sodium (Singulair -) 10 mg PO HS [facility] Last Admin: 09/30/17 21:28 Dose: 10 mg Nebivolol (Bystolic -) 2.5 mg PO DAILY [facility] Last Admin: 10/01/17 09:22 Dose: 2.5 mg Prednisone (Deltasone -) 30 mg PO DAILY [facility] Last Admin: 10/01/17 10:39 Dose: 30 mg Thiamine HCl (Vitamin B1 Injection -) 200 mg IVPB Q8H-IV [facility] Stop: 10/02/17 18:01 Last Admin: 10/01/17 09:17 Dose: 200 mg Warfarin Sodium (Coumadin -) 3 mg PO DAILY@1800 [facility] Last Admin: 09/30/17 17:15 Dose: 3 mg - Objective Vital Signs: Vital Signs Temperature 97.4 F L 10/01/17 07:30 Pulse Rate 89 10/01/17 09:23 Respiratory Rate 16 10/01/17 07:30 Blood Pressure 150/94 10/01/17 07:30 O2 Sat by Pulse Oximetry (%) 98 09/30/17 21:00 Constitutional: Yes: Well Nourished, Calm Eyes: Yes: WNL HENT: Yes: WNL Neck: Yes: WNL Cardiovascular: Yes: Pulse Irregular, S1, S2 Respiratory: Yes: Rales (bibasialr rales) Gastrointestinal: Yes: Normal Bowel Sounds, Soft Extremities: Yes: WNL Edema: No Labs: CBC, BMP 10/01/17 08:53 09/30/17 07:00 INR, PTT INR 3.40 (0.82-1.09) H 10/01/17 08:53 Problem List - Problems (1) Confusion Code(s): R41.0 - DISORIENTATION, UNSPECIFIED (2) Elevated lactic acid level Code(s): R79.89 - OTHER SPECIFIED ABNORMAL FINDINGS OF BLOOD CHEMISTRY (3) Fall Code(s): W19.XXXA - UNSPECIFIED FALL, INITIAL ENCOUNTER (4) H/O heart valve replacement with bioprosthetic valve Code(s): Z95.3 - PRESENCE OF XENOGENIC HEART VALVE (5) Anemia Code(s): D64.9 - ANEMIA, UNSPECIFIED Qualifiers: Anemia type: other cause Other causes of anemia: acute posthemorrhagic Qualified Code(s): D62 - Acute posthemorrhagic anemia (6) Asthma Code(s): J45.909 - UNSPECIFIED ASTHMA, UNCOMPLICATED Qualifiers: Asthma severity: mild persistent (7) Atrial fibrillation Code(s): I48.91 - UNSPECIFIED ATRIAL FIBRILLATION Qualifiers: Atrial fibrillation type: permanent Qualified Code(s): I48.2 - Chronic atrial fibrillation (8) CHF (congestive heart failure) Code(s): I50.9 - HEART FAILURE, UNSPECIFIED (9) History of mitral valve replacement with bioprosthetic valve Code(s): Z95.3 - PRESENCE OF XENOGENIC HEART VALVE (10) Lung mass Code(s): R91.8 - OTHER NONSPECIFIC ABNORMAL FINDING OF LUNG FIELD (11) Syncope Code(s): R55 - SYNCOPE AND COLLAPSE Assessment/Plan IMP SYNCOPE ASTHMA L LUNG MASS 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 ,LOCULATED FLUID ,DOUBT MALIGNANT WAS NOT PRESENT ON PREVIOUS CT IN FEBRUARY 2017 PRIOR TO MVR ELEVATED LACTATE LEVEL HTM AFIB H/O DVT PLAN INHALED BRONCHODILATORS O2 AC PER INR PET SCAN OUTPATIENT TO FURTHER EVALUATE LEFT LUNG MASS TREND LACTATE DR YE Problem List - Problems (1) Confusion Code(s): R41.0 - DISORIENTATION, UNSPECIFIED (2) Elevated lactic acid level Code(s): R79.89 - OTHER SPECIFIED ABNORMAL FINDINGS OF BLOOD CHEMISTRY (3) Fall Code(s): W19.XXXA - UNSPECIFIED FALL, INITIAL ENCOUNTER (4) H/O heart valve replacement with bioprosthetic valve Code(s): Z95.3 - PRESENCE OF XENOGENIC HEART VALVE (5) Anemia Code(s): D64.9 - ANEMIA, UNSPECIFIED Qualifiers: Anemia type: other cause Other causes of anemia: acute posthemorrhagic Qualified Code(s): D62 - Acute posthemorrhagic anemia (6) Asthma Code(s): J45.909 - UNSPECIFIED ASTHMA, UNCOMPLICATED Qualifiers: Asthma severity: mild persistent (7) Atrial fibrillation Code(s): I48.91 - UNSPECIFIED ATRIAL FIBRILLATION Qualifiers: Atrial fibrillation type: permanent Qualified Code(s): I48.2 - Chronic atrial fibrillation (8) CHF (congestive heart failure) Code(s): I50.9 - HEART FAILURE, UNSPECIFIED (9) History of mitral valve replacement with bioprosthetic valve Code(s): Z95.3 - PRESENCE OF XENOGENIC HEART VALVE (10) Lung mass Code(s): R91.8 - OTHER NONSPECIFIC ABNORMAL FINDING OF LUNG FIELD (11) Syncope Code(s): R55 - SYNCOPE AND COLLAPSE
--- NOTE | 2017-10-01 11:53 | PN ---
Progress Note, Physician Chief Complaint: AMS History of Present Illness: alert, sitting in chair, feels much better all the workup negative for any acute pathology echo reviewed TSH low endocrine to evaluate the patient - Current Medication List Current Medications: Active Medications Aspirin (Asa -) 81 mg PO DAILY [facility] Last Admin: 10/01/17 09:23 Dose: 81 mg Budesonide (Pulmicort 0.25 Mg Nebulizer -) 1 amp NEB BID [facility] Last Admin: 10/01/17 09:56 Dose: 1 amp Digoxin (Lanoxin -) 0.125 mg PO DAILY [facility] Last Admin: 10/01/17 09:23 Dose: 0.125 mg Diltiazem HCl (Cardizem Cd -) 360 mg PO DAILY [facility] Last Admin: 10/01/17 09:23 Dose: 360 mg Insulin Aspart (Novolog Vial Sliding Scale -) 1 vial SQ ACHS [facility] PRN Reason: Protocol Last Admin: 10/01/17 06:11 Dose: 2 units Montelukast Sodium (Singulair -) 10 mg PO HS [facility] Last Admin: 09/30/17 21:28 Dose: 10 mg Nebivolol (Bystolic -) 2.5 mg PO DAILY [facility] Last Admin: 10/01/17 09:22 Dose: 2.5 mg Prednisone (Deltasone -) 30 mg PO DAILY [facility] Last Admin: 10/01/17 10:39 Dose: 30 mg Thiamine HCl (Vitamin B1 Injection -) 200 mg IVPB Q8H-IV [facility] Stop: 10/02/17 18:01 Last Admin: 10/01/17 09:17 Dose: 200 mg Warfarin Sodium (Coumadin -) 3 mg PO DAILY@1800 [facility] Last Admin: 09/30/17 17:15 Dose: 3 mg - Objective Vital Signs: Vital Signs Temperature 97.4 F L 10/01/17 07:30 Pulse Rate 89 10/01/17 09:23 Respiratory Rate 16 10/01/17 07:30 Blood Pressure 150/94 10/01/17 07:30 O2 Sat by Pulse Oximetry (%) 98 09/30/17 21:00 Constitutional: Yes: Well Nourished, No Distress, Calm Cardiovascular: Yes: Regular Rate and Rhythm Respiratory: Yes: Regular Musculoskeletal: Yes: WNL Extremities: Yes: WNL Edema: No Peripheral Pulses WNL: Yes Neurological: Yes: Alert, Oriented Psychiatric: Yes: Alert, Oriented Labs: CBC, BMP 10/01/17 08:53 09/30/17 07:00 INR, PTT INR 3.40 (0.82-1.09) H 10/01/17 08:53 Problem List - Problems (1) Altered mental status Assessment/Plan: -CT head unremarkable -seen by Neurology -mental status improved Code(s): R41.82 - ALTERED MENTAL STATUS, UNSPECIFIED (2) Elevated lactic acid level Assessment/Plan: -no signs and symptoms of acute infection -seen by ID -cultures negative Code(s): R79.89 - OTHER SPECIFIED ABNORMAL FINDINGS OF BLOOD CHEMISTRY (3) H/O heart valve replacement with bioprosthetic valve Assessment/Plan: -INR goal 2-3 -hold warfarin today -repeat INR in AM Code(s): Z95.3 - PRESENCE OF XENOGENIC HEART VALVE (4) Hyperthyroidism without crisis Assessment/Plan: -add FT4 -endocrine consult Code(s): E05.90 - THYROTOXICOSIS, UNSP WITHOUT THYROTOXIC CRISIS OR STORM Assessment/Plan see problem list
[2017-10-01] MEDS ORDERED: METHIMAZOLE 5 MG TABLET (FP) PO SCH (12:00)
[2017-10-01 12:29] LABS: ANION GAP 11 (8-16); CALCIUM 8.2 mg/dL (8.5-10.1); CO2 19 mmol/L (21-32); CREATININE 0.8 mg/dL (0.55-1.02)
[2017-10-01 12:51] LABS: GLUCOSE,RANDOM 304 mg/dL (74-106)
--- NOTE | 2017-10-01 18:03 | CONSULT ---
Consult Consult Specialty:: Endocrinology coverage for Dr Hernandez Referred by:: Dr Perez Reason for Consultation:: Abnormal TFT - History of Present Illness Chief Complaint: Fall, AMS History of Present Illness: This is a 77 yo female with h/o of Afib (currently on coumadin), CHF, HTN, ? Hyperthyroidism, Asthma, COPD, OA, and mitral insufficiency s/p valve replacement who presented to ED after reported fall. She couldnot recall how she fell or if she fell out of a chair or bed but thinks she may have lost conciousness (although she denies hitting her head). She denies any pain at this time. Pt currently denies any complaints. Pt referred for management of low TSH. Review of chart shows that her TSH has fluctuated from 0.08 to 5.0 from 2013 to now. Free T4 has never been elevated with levels between 0.68 to 1.43 and FT3 has been below lower limit of normal except for once when it was normal. She has taken Methimazole in the hospital but pt denies taking any thyroid medication prior to admission. Pt denies any CP/SOB/Palpitations. Is sitting in chair eating dinner. Denies any recent change in weight. No anxiety or tremors of hands - History Source History Provided By: Patient, Medical Record Limitations to Obtaining History: Poor Historian - Past Medical History Cardio/Vascular: Yes: AFIB (REFUSED ANTICOAGULATION IN PAST NOW ON COUMADIN), CAD, HTN, Hyperlipdemia, Mitral Insufficiency (s/p valve replacement) Pulmonary: Yes: Asthma, Bronchitis, COPD Gastrointestinal: Yes: GERD Musculoskeletal: Yes: Osteoarthritis Endocrine: Yes: Hyperthyroidism. No: Diabetes Mellitus Additional Medical History: LEFT POPLITEAL DVT - Past Surgical History Past Surgical History: Yes: Tubal Ligation (laparoscopic), Valve Replacement ( mechanical mitral 2 wks ago) - Alcohol/Substance Use Hx Alcohol Use: No History of Substance Use: reports: None - Smoking History Smoking history: Never smoked Have you smoked in the past 12 months: No Aproximately how many cigarettes per day: 0 - Social History ADL: Independent History of Recent Travel: No Home Medications - Allergies Allergies/Adverse Reactions: Allergies Allergy/AdvReac Type Severity Reaction Status Date / Time ampicillin [Ampicillin] Allergy Severe Swelling Verified 09/27/17 23:31 codeine [Codeine] Allergy Swelling Verified 09/27/17 23:31 - Home Medications Home Medications: Ambulatory Orders Budesonide [Pulmicort 0.25 mg Nebulizer -] 1 amp NEB BID #60 amp 08/13/17 Digoxin [Lanoxin -] 0.125 mg PO DAILY tablet 08/13/17 Diltiazem Cd [Cardizem Cd -] 360 mg PO DAILY tab 08/13/17 Prednisone [Deltasone -] 15 mg PO BID #60 tablet 08/13/17 Aspirin [ASA -] 81 mg PO DAILY 09/28/17 Furosemide [Lasix -] 40 mg PO DAILY 09/28/17 Metformin HCl [Glucophage -] 500 mg PO BID@1000,2100 09/28/17 Montelukast Na [Singulair -] 10 mg PO HS 09/28/17 Nebivolol HCl [Bystolic] 2.5 mg PO DAILY 09/28/17 Warfarin Sodium 3 mg PO HS 09/28/17 Family Disease History - Family Disease History Family Disease History: Diabetes: Father (HTN) Review of Systems - Review of Systems Constitutional: reports: No Symptoms Eyes: reports: No Symptoms HENT: reports: No Symptoms Neck: reports: No Symptoms Cardiovascular: reports: No Symptoms Respiratory: reports: No Symptoms Gastrointestinal: reports: No Symptoms Genitourinary: reports: No Symptoms Musculoskeletal: reports: No Symptoms Neurological: reports: No Symptoms Endocrine: reports: No Symptoms Hematology/Lymphatic: reports: No Symptoms Physical Exam Vital Signs: Vital Signs Temperature 98.1 F 10/01/17 14:13 Pulse Rate 104 H 10/01/17 14:13 Respiratory Rate 20 10/01/17 14:13 Blood Pressure 134/83 10/01/17 14:13 O2 Sat by Pulse Oximetry (%) 100 10/01/17 09:00 Constitutional: Yes: No Distress, Calm Eyes: Yes: Conjunctiva Clear, EOM Intact HENT: Yes: Atraumatic, Normocephalic, Other (No thyromegaly, No bruit) Neck: Yes: Supple, Trachea Midline Cardiovascular: Yes: Regular Rate and Rhythm (currently regular pulse) Respiratory: Yes: Regular, CTA Bilaterally Gastrointestinal: Yes: Normal Bowel Sounds, Soft Musculoskeletal: Yes: WNL Extremities: Yes: WNL, Other (No tremors of hands) Edema: Yes Neurological: Yes: Alert, Oriented Labs: CBC, BMP 10/01/17 08:53 10/01/17 11:50 Assessment/Plan AP: Abnormal TSH: Subclinical Hyperthyroidism vs steroid effect vs Sick Euthyroid Review of chart shows fluctuating TSH from 0.08 to 5.0, FT4 has been always normal and Free T3 subnormal execept once during previous admissions from 2013 Hold Methimazole for now Check TSH, FT4, FT3, TSI,TPO A Fib S/P MVR Asthma ? Syncope Will f/u
[2017-10-01] MEDS: MONTELUKAST NA 10 MG TABLET PO SCH (21:06)
[2017-10-01] MEDS ORDERED: INSULIN (NOVOLOG) ASPART 100 UNITS/ML 10ML VIAL ONE (21:34)
[2017-10-02] MEDS: THIAMINE HCL 200 MG/2 ML VIAL IVPB SCH ×3 (03:19→18:48)
[2017-10-02] MEDS: INSULIN SLIDING SCALE (NOVOLOG) 1 VIAL SQ SCH ×4 (06:18→21:44)
[2017-10-02 07:09] LABS: MCH 28.3 pg (25.7-33.7); MCHC 30.7 g/dl (32.0-36.0); MEAN PLT VOLUME 8.7 fl (7.5-11.1); PLATELET COUNT 143 K/MM3 (134-434); RDW 18.4 % (11.6-15.6); WHITE BLOOD COUNT 11.8 K/mm3 (4.0-10.0)
[2017-10-02 07:12] LABS: ALBUMIN 2.6 g/dl (3.4-5.0); ANION GAP 6 (8-16); CALCIUM 7.8 mg/dL (8.5-10.1); CO2 26 mmol/L (21-32); CREATININE 0.6 mg/dL (0.55-1.02); GLUCOSE,RANDOM 163 mg/dL (74-106); SGOT/AST 25 U/L (15-37); SGPT/ALT 37 U/L (12-78)
[2017-10-02 07:22] LABS: ALK PHOS 43 U/L (45-117); BILIRUBIN,TOTAL 0.3 mg/dL (0.2-1.0); FREE T4 0.92 ng/dl (0.76-1.46); THYROID STIMULATING HORMONE 0.26 uIU/ml (0.358-3.74)
[2017-10-02 07:32] LABS: INR 3.53 (0.82-1.09); PROTHROMBIN TIME (PATIENT) 39.9 SEC (9.98-11.88)
[2017-10-02] MEDS ORDERED: WARFARIN NA 3 MG TABLET PO SCH (08:24)
--- NOTE | 2017-10-02 08:25 | PN ---
Progress Note, Physician - Current Medication List Current Medications: Active Medications Aspirin (Asa -) 81 mg PO DAILY [facility] Last Admin: 10/01/17 09:23 Dose: 81 mg Budesonide (Pulmicort 0.25 Mg Nebulizer -) 1 amp NEB BID [facility] Last Admin: 10/01/17 22:40 Dose: 1 amp Digoxin (Lanoxin -) 0.125 mg PO DAILY [facility] Last Admin: 10/01/17 09:23 Dose: 0.125 mg Diltiazem HCl (Cardizem Cd -) 360 mg PO DAILY [facility] Last Admin: 10/01/17 09:23 Dose: 360 mg Insulin Aspart (Novolog Vial Sliding Scale -) 1 vial SQ ACHS [facility] PRN Reason: Protocol Last Admin: 10/02/17 06:18 Dose: Not Given Montelukast Sodium (Singulair -) 10 mg PO HS [facility] Last Admin: 10/01/17 21:06 Dose: 10 mg Nebivolol (Bystolic -) 2.5 mg PO DAILY [facility] Last Admin: 10/01/17 09:22 Dose: 2.5 mg Prednisone (Deltasone -) 30 mg PO DAILY [facility] Last Admin: 10/01/17 10:39 Dose: 30 mg Thiamine HCl (Vitamin B1 Injection -) 200 mg IVPB Q8H-IV [facility] Stop: 10/02/17 18:01 Last Admin: 10/02/17 03:19 Dose: 200 mg Warfarin Sodium (Coumadin -) 2.5 mg PO DAILY@1800 [facility] - Objective Vital Signs: Vital Signs Temperature 98.2 F 10/02/17 06:00 Pulse Rate 83 10/02/17 06:00 Respiratory Rate 20 10/02/17 06:00 Blood Pressure 157/106 10/02/17 06:00 O2 Sat by Pulse Oximetry (%) 100 10/01/17 21:00 Labs: CBC, BMP 10/02/17 05:05 10/02/17 05:05 INR, PTT INR 3.53 (0.82-1.09) H 10/02/17 05:05 Problem List - Problems (1) Sepsis Code(s): A41.9 - SEPSIS, UNSPECIFIED ORGANISM (2) Atrial fibrillation Code(s): I48.91 - UNSPECIFIED ATRIAL FIBRILLATION Qualifiers: Atrial fibrillation type: permanent Qualified Code(s): I48.2 - Chronic atrial fibrillation (3) Confusion Code(s): R41.0 - DISORIENTATION, UNSPECIFIED (4) COPD (chronic obstructive pulmonary disease) Code(s): J44.9 - CHRONIC OBSTRUCTIVE PULMONARY DISEASE, UNSPECIFIED
--- NOTE | 2017-10-02 08:36 | PN ---
Progress Note, Physician Chief Complaint: no acute distress TELE: AF, overall controlled. Pauses all < 3 seconds. No rapid rates - Current Medication List Current Medications: Active Medications Aspirin (Asa -) 81 mg PO DAILY [facility] Last Admin: 10/01/17 09:23 Dose: 81 mg Budesonide (Pulmicort 0.25 Mg Nebulizer -) 1 amp NEB BID [facility] Last Admin: 10/01/17 22:40 Dose: 1 amp Digoxin (Lanoxin -) 0.125 mg PO DAILY [facility] Last Admin: 10/01/17 09:23 Dose: 0.125 mg Diltiazem HCl (Cardizem Cd -) 360 mg PO DAILY [facility] Last Admin: 10/01/17 09:23 Dose: 360 mg Insulin Aspart (Novolog Vial Sliding Scale -) 1 vial SQ ACHS [facility] PRN Reason: Protocol Last Admin: 10/02/17 06:18 Dose: Not Given Montelukast Sodium (Singulair -) 10 mg PO HS [facility] Last Admin: 10/01/17 21:06 Dose: 10 mg Nebivolol (Bystolic -) 2.5 mg PO DAILY [facility] Last Admin: 10/01/17 09:22 Dose: 2.5 mg Prednisone (Deltasone -) 30 mg PO DAILY [facility] Last Admin: 10/01/17 10:39 Dose: 30 mg Thiamine HCl (Vitamin B1 Injection -) 200 mg IVPB Q8H-IV [facility] Stop: 10/02/17 18:01 Last Admin: 10/02/17 03:19 Dose: 200 mg Warfarin Sodium (Coumadin -) 2.5 mg PO DAILY@1800 [facility] - Objective Vital Signs: Vital Signs Temperature 98.2 F 10/02/17 06:00 Pulse Rate 83 10/02/17 06:00 Respiratory Rate 20 10/02/17 06:00 Blood Pressure 157/106 10/02/17 06:00 O2 Sat by Pulse Oximetry (%) 100 10/01/17 21:00 Constitutional: Yes: No Distress Cardiovascular: Yes: Pulse Irregular Respiratory: Yes: Other (rales at bases 1/3 up) Gastrointestinal: Yes: Soft Edema: No Neurological: Yes: Alert, Oriented Labs: CBC, BMP 10/02/17 05:05 10/02/17 05:05 INR, PTT INR 3.53 (0.82-1.09) H 10/02/17 05:05 Microbiology 09/28/17 12:30 Blood - Peripheral Venous Blood Culture - Preliminary NO GROWTH OBTAINED AFTER 72 HOURS, INCUBATION TO CONTINUE FOR 2 DAYS. 09/28/17 12:25 Blood - Peripheral Venous Blood Culture - Preliminary NO GROWTH OBTAINED AFTER 72 HOURS, INCUBATION TO CONTINUE FOR 2 DAYS. 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 Presumed syncope-unknown etiology -no events on telemetry thus far, cont tele monitoring -check orthostatic BP AFib-HR adequately controlled currently -cont current medical regimen -cont coumadin for goal INR 2-3, hold coumadin today Bio MVR - echo shows Ca2= vs veg on aortic valve -Cultures remain negative to date HTN- -Would resume low dose ALEX/ARB (previously on Diovan) Chronic systolic/Diastolic CHF- -CXR today -Low threshhold to begin Lasix
[2017-10-02 09:01] LABS: TOTAL CELLS COUNTED 100
[2017-10-02 09:02] LABS: PLATELET ESTIMATE ADEQUATE
[2017-10-02] MEDS: ASPIRIN 81 MG CHEWABLE TABLETS PO SCH (09:22)
[2017-10-02] MEDS: DIGOXIN 0.125 MG TABLET (FP) PO SCH (09:22)
[2017-10-02] MEDS: predniSONE 10 MG TABLET (UD) PO SCH (09:22)
[2017-10-02] MEDS: FUROSEMIDE 40 MG TABLET (FP) PO SCH (09:23)
[2017-10-02 09:25] LABS: C-REACTIVE PROTEIN < 0.3 MG/DL (0.00-0.3)
[2017-10-02] MEDS: NEBIVOLOL 2.5 MG TABLET (FP) PO SCH (09:33)
[2017-10-02] MEDS: BUDESONIDE 0.25 MG/2ML INH SUSP VIAL NEB SCH ×2 (09:50→22:30)
--- NOTE | 2017-10-02 10:07 | PN ---
Progress Note (short form) - Note Progress Note: Chest Xray reviewed-reported as L retrocardiac consolidation and no significant pulmonary vascular congestion. Will continue current po Lasix for now.
--- NOTE | 2017-10-02 13:24 | PN ---
Progress Note (short form) - Note Progress Note: Denies any complaints No tremors or palpitations Vital Signs Period Temp Pulse Resp BP Sys/Urrutia Pulse Ox Last 24 Hr 97.6 F-98.2 F 80-104 18-20 133-157/83-106 100 PE: Awake alert Neck: supple, No JVD, No bruit HEENT: EOMI' Lungs: CTA CVS: S1S2 Abd: Benign Ext: No edema CMP Sodium 142 mmol/L (136-145) 10/02/17 05:05 Potassium 4.1 mmol/L (3.5-5.1) 10/02/17 05:05 Chloride 110 mmol/L (98-107) H 10/02/17 05:05 Carbon Dioxide 26 mmol/L (21-32) D 10/02/17 05:05 Anion Gap 6 (8-16) L 10/02/17 05:05 BUN 23 mg/dL (7-18) H 10/02/17 05:05 Creatinine 0.6 mg/dL (0.55-1.02) D 10/02/17 05:05 Creat Clearance w eGFR > 60 (>60) 10/02/17 05:05 POC Glucometer 164 UNITS (80-120) 10/02/17 06:17 Random Glucose 163 mg/dL (74-106) H D 10/02/17 05:05 Lactic Acid 2.2 mmol/L (0.4-2.0) H* 10/02/17 05:05 Calcium 7.8 mg/dL (8.5-10.1) L 10/02/17 05:05 Total Bilirubin 0.3 mg/dL (0.2-1.0) 10/02/17 05:05 AST 25 U/L (15-37) 10/02/17 05:05 ALT 37 U/L (12-78) D 10/02/17 05:05 Alkaline Phosphatase 43 U/L (45-117) L 10/02/17 05:05 Creatine Kinase 19 IU/L (26-192) L 09/30/17 07:00 Troponin I 0.04 ng/ml (0.00-0.05) 09/30/17 07:00 C-Reactive Protein < 0.3 MG/DL (0.00-0.3) D 10/02/17 05:05 Total Protein 5.0 g/dl (6.4-8.2) L 10/02/17 05:05 Albumin 2.6 g/dl (3.4-5.0) L 10/02/17 05:05 Lipase 303 U/L (73-393) 09/28/17 00:48 Vitamin B12 630 pg/ml (180-914) 09/30/17 07:00 TSH 0.26 uIU/ml (0.358-3.74) L D 10/02/17 05:05 Free T4 0.92 ng/dl (0.76-1.46) D 10/02/17 05:05 Current Medications Generic Name Dose Route Start Last Admin Trade Name Freq PRN Reason Stop Dose Admin Aspirin 81 mg 09/29/17 10:00 10/02/17 09:22 Asa - PO 81 mg DAILY [facility] Administration Budesonide 1 amp 09/28/17 22:00 10/02/17 09:50 Pulmicort 0.25 Mg Nebulizer - NEB 1 amp BID [facility] Administration Digoxin 0.125 mg 09/29/17 10:00 10/02/17 09:22 Lanoxin - PO 0.125 mg DAILY [facility] Administration Diltiazem HCl 360 mg 09/29/17 10:00 10/02/17 09:22 Cardizem Cd - PO 360 mg DAILY [facility] Administration Furosemide 40 mg 10/02/17 10:00 10/02/17 09:23 Lasix - PO 40 mg DAILY [facility] Administration Insulin Aspart 1 vial 09/28/17 16:30 10/02/17 06:18 Novolog Vial Sliding Scale - SQ Not Given ACHS [facility] Protocol Losartan Potassium 25 mg 10/02/17 18:00 Cozaar - PO DAILY@1800 [facility] Montelukast Sodium 10 mg 09/28/17 22:00 10/01/17 21:06 Singulair - PO 10 mg HS [facility] Administration Nebivolol 2.5 mg 09/29/17 10:00 10/02/17 09:33 Bystolic - PO 2.5 mg DAILY [facility] Administration Prednisone 30 mg 10/01/17 10:00 10/02/17 09:22 Deltasone - PO 30 mg DAILY [facility] Administration Thiamine HCl 200 mg 09/29/17 21:45 10/02/17 09:21 Vitamin B1 Injection - IVPB 10/02/17 18:01 200 mg Q8H-IV [facility] Administration AP: Abnormal TSH: Subclinical Hyperthyroidism vs steroid effect vs Sick Euthyroid Review of chart shows fluctuating TSH from 0.08 to 5.0, FT4 has been always normal and Free T3 subnormal execept once during previous admissions from 2013 Hold Methimazole for now Repeat TSH 0.26 FT4 0.92, FT3, TSI,TPO pending Hyperglycemia: check A1c Novolog SS coverage A Fib S/P MVR Asthma ? Syncope Will f/u
--- NOTE | 2017-10-02 14:23 | PN ---
Progress Note (short form) - Note Progress Note: Resting in NAD. No CP or SOB. 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 Intake & Output 09/29/17 09/30/17 10/01/17 10/02/17 23:59 23:59 23:59 23:59 Intake Total 2733 2550 720 Balance 2733 2550 720 Weight 182 lb 4 oz 185 lb 6.4 oz 193 lb 6.4 oz 194 lb 6.4 oz Last Vital Signs Temp Pulse Resp BP Pulse Ox 98.2 F 86 20 157/106 100 10/02/17 06:00 10/02/17 09:22 10/02/17 06:00 10/02/17 06:00 10/01/17 21:00 Active Medications Aspirin (Asa -) 81 mg PO DAILY REPLACED BY [facility] Last Admin: 10/02/17 09:22 Dose: 81 mg Budesonide (Pulmicort 0.25 Mg Nebulizer -) 1 amp NEB BID REPLACED BY [facility] Last Admin: 10/02/17 09:50 Dose: 1 amp Digoxin (Lanoxin -) 0.125 mg PO DAILY REPLACED BY [facility] Last Admin: 10/02/17 09:22 Dose: 0.125 mg Diltiazem HCl (Cardizem Cd -) 360 mg PO DAILY REPLACED BY [facility] Last Admin: 10/02/17 09:22 Dose: 360 mg Furosemide (Lasix -) 40 mg PO DAILY REPLACED BY [facility] Last Admin: 10/02/17 09:23 Dose: 40 mg Insulin Aspart (Novolog Vial Sliding Scale -) 1 vial SQ ACHS REPLACED BY [facility] PRN Reason: Protocol Last Admin: 10/02/17 06:18 Dose: Not Given Losartan Potassium (Cozaar -) 25 mg PO DAILY@1800 BLESSING Montelukast Sodium (Singulair -) 10 mg PO HS REPLACED BY [facility] Last Admin: 10/01/17 21:06 Dose: 10 mg Nebivolol (Bystolic -) 2.5 mg PO DAILY REPLACED BY [facility] Last Admin: 10/02/17 09:33 Dose: 2.5 mg Prednisone (Deltasone -) 30 mg PO DAILY REPLACED BY [facility] Last Admin: 10/02/17 09:22 Dose: 30 mg Thiamine HCl (Vitamin B1 Injection -) 200 mg IVPB Q8H-IV BLESSING Stop: 10/02/17 18:01 Last Admin: 10/02/17 09:21 Dose: 200 mg Constitutional: Yes: NAD Eyes: Yes: WNL HENT: Yes: WNL Neck: Yes: WNL Cardiovascular: Yes: Pulse Irregular, S1, S2 Respiratory: Yes: few basilar Rales Gastrointestinal: Yes: Normal Bowel Sounds, Soft Extremities: Yes: WNL Edema: No Labs: Laboratory Results - last 24 hr 10/01/17 10/01/17 10/02/17 15:44 21:30 05:00 WBC RBC Hgb Hct MCV MCH MCHC RDW Plt Count MPV Total Counted Neutrophils % Neutrophils % (Manual) Band Neutrophils % Lymphocytes % Lymphocytes % (Manual) Monocytes % (Manual) Platelet Estimate ESR PT with INR INR Sodium Potassium Chloride Carbon Dioxide Anion Gap BUN Creatinine Creat Clearance w eGFR POC Glucometer 312 290 Random Glucose Lactic Acid Calcium Total Bilirubin AST ALT Alkaline Phosphatase C-Reactive Protein Cancelled Total Protein Albumin TSH Free T4 10/02/17 10/02/17 10/02/17 05:00 05:05 05:05 WBC 11.8 H RBC 3.48 L Hgb 9.8 L Hct 32.0 L MCV 92.0 MCH 28.3 MCHC 30.7 L RDW 18.4 H Plt Count 143 MPV 8.7 Total Counted 100 Neutrophils % No Result Required. Neutrophils % (Manual) 85.0 H Band Neutrophils % 1.0 Lymphocytes % No Result Required. Lymphocytes % (Manual) 10.0 D Monocytes % (Manual) 4 D Platelet Estimate Adequate ESR 4 PT with INR INR Sodium 142 Potassium 4.1 Chloride 110 H Carbon Dioxide 26 D Anion Gap 6 L BUN 23 H Creatinine 0.6 D Creat Clearance w eGFR > 60 POC Glucometer Random Glucose 163 H D Lactic Acid Calcium 7.8 L Total Bilirubin 0.3 AST 25 ALT 37 D Alkaline Phosphatase 43 L C-Reactive Protein < 0.3 D Total Protein 5.0 L Albumin 2.6 L TSH 0.26 L D Free T4 0.92 D 10/02/17 10/02/17 10/02/17 05:05 05:05 06:17 WBC RBC Hgb Hct MCV MCH MCHC RDW Plt Count MPV Total Counted Neutrophils % Neutrophils % (Manual) Band Neutrophils % Lymphocytes % Lymphocytes % (Manual) Monocytes % (Manual) Platelet Estimate ESR PT with INR 39.90 H INR 3.53 H Sodium Potassium Chloride Carbon Dioxide Anion Gap BUN Creatinine Creat Clearance w eGFR POC Glucometer 164 Random Glucose Lactic Acid 2.2 H* Calcium Total Bilirubin AST ALT Alkaline Phosphatase C-Reactive Protein Total Protein Albumin TSH Free T4 Problem List - Problems (1) Confusion Code(s): R41.0 - DISORIENTATION, UNSPECIFIED (2) Elevated lactic acid level Code(s): R79.89 - OTHER SPECIFIED ABNORMAL FINDINGS OF BLOOD CHEMISTRY (3) Fall Code(s): W19.XXXA - UNSPECIFIED FALL, INITIAL ENCOUNTER (4) H/O heart valve replacement with bioprosthetic valve Code(s): Z95.3 - PRESENCE OF XENOGENIC HEART VALVE (5) Anemia Code(s): D64.9 - ANEMIA, UNSPECIFIED Qualifiers: Anemia type: other cause Other causes of anemia: acute posthemorrhagic Qualified Code(s): D62 - Acute posthemorrhagic anemia (6) Asthma Code(s): J45.909 - UNSPECIFIED ASTHMA, UNCOMPLICATED Qualifiers: Asthma severity: mild persistent (7) Atrial fibrillation Code(s): I48.91 - UNSPECIFIED ATRIAL FIBRILLATION Qualifiers: Atrial fibrillation type: permanent Qualified Code(s): I48.2 - Chronic atrial fibrillation (8) CHF (congestive heart failure) Code(s): I50.9 - HEART FAILURE, UNSPECIFIED (9) History of mitral valve replacement with bioprosthetic valve Code(s): Z95.3 - PRESENCE OF XENOGENIC HEART VALVE (10) Lung mass Code(s): R91.8 - OTHER NONSPECIFIC ABNORMAL FINDING OF LUNG FIELD (11) Syncope Code(s): R55 - SYNCOPE AND COLLAPSE Assessment/Plan IMP SYNCOPE ASTHMA SUSPECTED PERICARDIAL CYST/LOCULATED FLUID ,DOUBT MALIGNANT: wAS NOT PRESENT ON CT 02/2017 PRIOR TO MVR ELEVATED LACTATE LEVEL HTM AFIB H/O DVT PLAN INHALED BRONCHODILATORS O2 AC PER INR PET SCAN OUTPATIENT TO FURTHER EVALUATE LEFT LUNG MASS LASIX PREDNISONE DR [facility]
[2017-10-02] MEDS ORDERED: LOSARTAN POTASSIUM 25 MG TABLET PO SCH (18:00)
[2017-10-02] MEDS ORDERED: INSULIN (NOVOLOG) ASPART 100 UNITS/ML 10ML VIAL ONE (20:57)
[2017-10-02] MEDS: MONTELUKAST NA 10 MG TABLET PO SCH (21:43)
[2017-10-03 06:08] LABS: FREE T3 1.8 pg/mL (2.0-4.4)
[2017-10-03] MEDS: INSULIN SLIDING SCALE (NOVOLOG) 1 VIAL SQ SCH ×2 (06:47→11:27)
[2017-10-03 08:52] LABS: INR 2.19 (0.82-1.09); PROTHROMBIN TIME (PATIENT) 24.8 SEC (9.98-11.88)
[2017-10-03 09:13] LABS: ANION GAP 8 (8-16); CO2 27 mmol/L (21-32); CREATININE 0.6 mg/dL (0.55-1.02); GLUCOSE,RANDOM 115 mg/dL (74-106)
--- NOTE | 2017-10-03 09:41 | PN ---
Progress Note, Physician Chief Complaint: looks better History of Present Illness: Sitting up in chair TELE: controlled AF, pauses < 3 seconds - Current Medication List Current Medications: Active Medications Aspirin (Asa -) 81 mg PO DAILY [facility] Last Admin: 10/02/17 09:22 Dose: 81 mg Budesonide (Pulmicort 0.25 Mg Nebulizer -) 1 amp NEB BID [facility] Last Admin: 10/02/17 22:30 Dose: 1 amp Digoxin (Lanoxin -) 0.125 mg PO DAILY [facility] Last Admin: 10/02/17 09:22 Dose: 0.125 mg Diltiazem HCl (Cardizem Cd -) 360 mg PO DAILY [facility] Last Admin: 10/02/17 09:22 Dose: 360 mg Furosemide (Lasix -) 40 mg PO DAILY [facility] Last Admin: 10/02/17 09:23 Dose: 40 mg Insulin Aspart (Novolog Vial Sliding Scale -) 1 vial SQ ACHS [facility] PRN Reason: Protocol Last Admin: 10/03/17 06:47 Dose: Not Given Losartan Potassium (Cozaar -) 25 mg PO DAILY@1800 [facility] Last Admin: 10/02/17 18:47 Dose: 25 mg Montelukast Sodium (Singulair -) 10 mg PO HS [facility] Last Admin: 10/02/17 21:43 Dose: 10 mg Nebivolol (Bystolic -) 2.5 mg PO DAILY [facility] Last Admin: 10/02/17 09:33 Dose: 2.5 mg Prednisone (Deltasone -) 30 mg PO DAILY [facility] Last Admin: 10/02/17 09:22 Dose: 30 mg - Objective Vital Signs: Vital Signs Temperature 97.2 F L 10/03/17 05:00 Pulse Rate 86 10/03/17 05:00 Respiratory Rate 18 10/03/17 05:00 Blood Pressure 153/76 10/03/17 05:00 O2 Sat by Pulse Oximetry (%) 100 10/02/17 21:00 Constitutional: Yes: No Distress Eyes: Yes: Conjunctiva Clear Cardiovascular: Yes: Pulse Irregular Respiratory: Yes: CTA Bilaterally Gastrointestinal: Yes: Soft, Abdomen, Obese Edema: Yes Edema: LLE: 1+, RLE: 1+ Labs: CBC, BMP 10/02/17 05:05 10/03/17 08:00 INR, PTT INR 2.19 (0.82-1.09) H D 10/03/17 08:00 Microbiology 09/28/17 12:30 Blood - Peripheral Venous Blood Culture - Preliminary NO GROWTH OBTAINED AFTER 96 HOURS, INCUBATION TO CONTINUE FOR 1 DAYS. 09/28/17 12:25 Blood - Peripheral Venous Blood Culture - Preliminary NO GROWTH OBTAINED AFTER 96 HOURS, INCUBATION TO CONTINUE FOR 1 DAYS. 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 Presumed syncope-unknown etiology -no events on telemetry thus far, cont tele monitoring AFib-HR adequately controlled currently -cont current medical regimen -cont coumadin for goal INR 2-3 Bio MVR - echo shows Ca2= vs veg on aortic valve -Cultures remain negative to date HTN-AM BP improved with addition of ARB in evening Chronic systolic/Diastolic CHF- -Cont PO Lasix
[2017-10-03] MEDS: BUDESONIDE 0.25 MG/2ML INH SUSP VIAL NEB SCH (10:00)
[2017-10-03] MEDS ORDERED: PT OWN MED DRAWER 7, Y5N ONE (10:10)
[2017-10-03] MEDS: ASPIRIN 81 MG CHEWABLE TABLETS PO SCH (10:25)
[2017-10-03] MEDS: NEBIVOLOL 2.5 MG TABLET (FP) PO SCH (10:25)
[2017-10-03] MEDS: predniSONE 10 MG TABLET (UD) PO SCH (10:26)
[2017-10-03] MEDS: DIGOXIN 0.125 MG TABLET (FP) PO SCH (10:27)
[2017-10-03] MEDS: FUROSEMIDE 40 MG TABLET (FP) PO SCH (10:27)
[2017-10-03 10:30] VITALS: PULSE 91
--- NOTE | 2017-10-03 11:42 | PN ---
Progress Note, Physician History of Present Illness: PULMONARY ALERT,OOB-CHAIR,-RESP DISTRESS - Current Medication List Current Medications: Active Medications Aspirin (Asa -) 81 mg PO DAILY [facility] Last Admin: 10/03/17 10:25 Dose: 81 mg Budesonide (Pulmicort 0.25 Mg Nebulizer -) 1 amp NEB BID [facility] Last Admin: 10/02/17 22:30 Dose: 1 amp Digoxin (Lanoxin -) 0.125 mg PO DAILY [facility] Last Admin: 10/03/17 10:27 Dose: 0.125 mg Diltiazem HCl (Cardizem Cd -) 360 mg PO DAILY [facility] Last Admin: 10/03/17 10:25 Dose: 360 mg Furosemide (Lasix -) 40 mg PO DAILY [facility] Last Admin: 10/03/17 10:27 Dose: 40 mg Insulin Aspart (Novolog Vial Sliding Scale -) 1 vial SQ ACHS [facility] PRN Reason: Protocol Last Admin: 10/03/17 11:27 Dose: Not Given Losartan Potassium (Cozaar -) 25 mg PO DAILY@1800 [facility] Last Admin: 10/02/17 18:47 Dose: 25 mg Montelukast Sodium (Singulair -) 10 mg PO HS [facility] Last Admin: 10/02/17 21:43 Dose: 10 mg Nebivolol (Bystolic -) 2.5 mg PO DAILY [facility] Last Admin: 10/03/17 10:25 Dose: 2.5 mg Prednisone (Deltasone -) 30 mg PO DAILY [facility] Last Admin: 10/03/17 10:26 Dose: 30 mg - Objective Vital Signs: Vital Signs Temperature 97.2 F L 10/03/17 05:00 Pulse Rate 91 H 10/03/17 10:27 Respiratory Rate 18 10/03/17 05:00 Blood Pressure 153/76 10/03/17 05:00 O2 Sat by Pulse Oximetry (%) 100 10/02/17 21:00 Constitutional: Yes: Well Nourished, Calm Eyes: Yes: WNL HENT: Yes: WNL Neck: Yes: WNL Cardiovascular: Yes: Pulse Irregular, S1, S2 Respiratory: Yes: Rales (FEW BIBASILAR RALES) Gastrointestinal: Yes: Normal Bowel Sounds, Soft Extremities: Yes: WNL Edema: No Labs: CBC, BMP 1 10/03/17 08:00 INR, PTT INR 2.19 (0.82-1.09) H D 10/03/17 08:00 Problem List - Problems (1) Confusion Code(s): R41.0 - DISORIENTATION, UNSPECIFIED (2) Elevated lactic acid level Code(s): R79.89 - OTHER SPECIFIED ABNORMAL FINDINGS OF BLOOD CHEMISTRY (3) Fall Code(s): W19.XXXA - UNSPECIFIED FALL, INITIAL ENCOUNTER (4) H/O heart valve replacement with bioprosthetic valve Code(s): Z95.3 - PRESENCE OF XENOGENIC HEART VALVE (5) Anemia Code(s): D64.9 - ANEMIA, UNSPECIFIED Qualifiers: Anemia type: other cause Other causes of anemia: acute posthemorrhagic Qualified Code(s): D62 - Acute posthemorrhagic anemia (6) Asthma Code(s): J45.909 - UNSPECIFIED ASTHMA, UNCOMPLICATED Qualifiers: Asthma severity: mild persistent (7) Atrial fibrillation Code(s): I48.91 - UNSPECIFIED ATRIAL FIBRILLATION Qualifiers: Atrial fibrillation type: permanent Qualified Code(s): I48.2 - Chronic atrial fibrillation (8) CHF (congestive heart failure) Code(s): I50.9 - HEART FAILURE, UNSPECIFIED (9) History of mitral valve replacement with bioprosthetic valve Code(s): Z95.3 - PRESENCE OF XENOGENIC HEART VALVE (10) Lung mass Code(s): R91.8 - OTHER NONSPECIFIC ABNORMAL FINDING OF LUNG FIELD (11) Syncope Code(s): R55 - SYNCOPE AND COLLAPSE Assessment/Plan IMP SYNCOPE ASTHMA L LUNG MASS 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 ,LOCULATED FLUID ,DOUBT MALIGNANT WAS NOT PRESENT ON PREVIOUS CT IN FEBRUARY 2017 PRIOR TO MVR ELEVATED LACTATE LEVEL HTM AFIB H/O DVT PLAN INHALED BRONCHODILATORS O2 AC PER INR PET SCAN OUTPATIENT TO FURTHER EVALUATE LEFT LUNG MASS DR YE Problem List - Problems (1) Confusion Code(s): R41.0 - DISORIENTATION, UNSPECIFIED (2) Elevated lactic acid level Code(s): R79.89 - OTHER SPECIFIED ABNORMAL FINDINGS OF BLOOD CHEMISTRY (3) Fall Code(s): W19.XXXA - UNSPECIFIED FALL, INITIAL ENCOUNTER (4) H/O heart valve replacement with bioprosthetic valve Code(s): Z95.3 - PRESENCE OF XENOGENIC HEART VALVE (5) Anemia Code(s): D64.9 - ANEMIA, UNSPECIFIED Qualifiers: Anemia type: other cause Other causes of anemia: acute posthemorrhagic Qualified Code(s): D62 - Acute posthemorrhagic anemia (6) Asthma Code(s): J45.909 - UNSPECIFIED ASTHMA, UNCOMPLICATED Qualifiers: Asthma severity: mild persistent (7) Atrial fibrillation Code(s): I48.91 - UNSPECIFIED ATRIAL FIBRILLATION Qualifiers: Atrial fibrillation type: permanent Qualified Code(s): I48.2 - Chronic atrial fibrillation (8) CHF (congestive heart failure) Code(s): I50.9 - HEART FAILURE, UNSPECIFIED (9) History of mitral valve replacement with bioprosthetic valve Code(s): Z95.3 - PRESENCE OF XENOGENIC HEART VALVE (10) Lung mass Code(s): R91.8 - OTHER NONSPECIFIC ABNORMAL FINDING OF LUNG FIELD (11) Syncope Code(s): R55 - SYNCOPE AND COLLAPSE
[2017-10-03 11:59] VITALS: BP 122/90; TEMP 97.8
--- NOTE | 2017-10-03 12:48 | DS ---
Physical Examination Vital Signs: Vital Signs Temperature 97.8 F 10/03/17 09:00 Pulse Rate 91 H 10/03/17 10:27 Respiratory Rate 18 10/03/17 09:00 Blood Pressure 122/90 10/03/17 09:00 O2 Sat by Pulse Oximetry (%) 99 10/03/17 09:00 Constitutional: Yes: Well Nourished, No Distress, Calm Cardiovascular: Yes: Regular Rate and Rhythm Respiratory: Yes: Regular Musculoskeletal: Yes: WNL Extremities: Yes: WNL Edema: No Peripheral Pulses WNL: Yes Neurological: Yes: Alert Psychiatric: Yes: Alert Labs: CBC, BMP 10/02/17 05:05 10/03/17 08:00 Discharge Summary Reason For Visit: CONFUSION, INCREASED LACTIC ACID LEVEL Current Active Problems Altered mental status (Acute) Confusion (Acute) Elevated lactic acid level (Acute) Elevated lactic acid level (Acute) Fall (Acute) H/O heart valve replacement with bioprosthetic valve (Acute) Lung mass (Acute) Sepsis (Acute) Syncope (Acute) Hospital Course: Ms. Magaña is a 77 yo female w/ pmh of Afib (currently on coumadin), CHF, HTN , Hypothyroidism, Asthma, COPD, OA, and mitral insufficiency s/p valve replacement who presents after reported fall earlier today. Patient cannot recall how she fell or if she fell out of a chair or bed but thinks she may have lost conciousness (although she denies hitting her head). She denies any pain at this time. pt is lethargic but arousable Condition: Stable - Instructions Referrals: Joey Hernandez MD [Primary Care Provider] - Disposition: VNS/HOME HEALTH CARE - Home Medications Comprehensive Discharge Medication List: Ambulatory Orders Budesonide [Pulmicort 0.25 mg Nebulizer -] 1 amp NEB BID #60 amp 08/13/17 Digoxin [Lanoxin -] 0.125 mg PO DAILY tablet 08/13/17 Diltiazem Cd [Cardizem Cd -] 360 mg PO DAILY tab 08/13/17 Prednisone [Deltasone -] 15 mg PO BID #60 tablet 08/13/17 Aspirin [ASA -] 81 mg PO DAILY 09/28/17 Furosemide [Lasix -] 40 mg PO DAILY 09/28/17 Metformin HCl [Glucophage -] 500 mg PO BID@1000,2100 09/28/17 Montelukast Na [Singulair -] 10 mg PO HS 09/28/17 Nebivolol HCl [Bystolic] 2.5 mg PO DAILY 09/28/17 Warfarin Sodium 3 mg PO HS 09/28/17
== END 2017-10-03 14:19 | DRG 312 ==
LOC: JER 23:26 → JERBED 09-28 07:46 → J4W 09-28 11:21
PROVIDERS: ADMIT Family Medicine; ATTEND Family Medicine
DX: R55 Syncope and collapse (principal); I31.8 Other specified diseases of pericardium; E87.2 Acidosis; I50.42 Chronic combined systolic (congestive) and diastolic (congestive) heart failure; J44.9 Chronic obstructive pulmonary disease, unspecified; K21.9 Gastro-esophageal reflux disease without esophagitis; E03.9 Hypothyroidism, unspecified; M19.90 Unspecified osteoarthritis, unspecified site; I48.2 Chronic atrial fibrillation; R41.0 Disorientation, unspecified; R79.89 Other specified abnormal findings of blood chemistry; D64.9 Anemia, unspecified; J45.30 Mild persistent asthma, uncomplicated; D72.828 Other elevated white blood cell count; Z95.2 Presence of prosthetic heart valve; Z86.718 Personal history of other venous thrombosis and embolism; I11.0 Hypertensive heart disease with heart failure; W18.39XA Other fall on same level, initial encounter; Y93.89 Activity, other specified; Y92.098 Other place in other non-institutional residence as the place of occurrence of the external cause; Z79.01 Long term (current) use of anticoagulants
CPT/HCPCS: 36415; 36600; 70450-TC; 71010-TC; 71260-TC; 74177-TC; 80048; 80053; 81003; 82550; 82607; 82803; 83036; 83605; 83690; 84425; 84436; 84439; 84443; 84445; 84481; 84484; 85025; 85610; 85651; 85730; 86140; 86376; 86593; 86850; 86900; 86901; 87040; 87086; 93005; 93010; 93306-TC; 94640; 97116-GP; 97161-GP; 99285-25

== ENCOUNTER 2017-10-30 15:57 | Inpatient (IN) | payer OTHER ==
[2017-10-30 16:17] VITALS: BMI 32.9
--- NOTE | 2017-10-30 16:26 | PDOC ---
History of Present Illness - General History Source: Patient, Family Exam Limitations: No Limitations - History of Present Illness Initial Comments: 10/30/17 18:05 The patient is a 77 year old female, accompanied by daughter, with a significant past medical history of atrial fibrillation, congestive heart failure, hypertension, hypothyroidism, asthma, COPD, osteoarthritis, and mitral insufficient s/p valve replacement, who presents to the emergency department with, sore throat for the past couple of days and vomiting and diarrhea beginning last night. The patient reports approx. 3 episodes of vomiting and three episodes of diarrhea described as non bloody, non bilious. The patient reports she does not currently feel nauseous. The patient reports she has been eating/ drinking less for the past couple of days with her last meal last night. The patient reports she received a chest XR approx. 2 days ago and was diagnosed with left lower lobe pneumonia. She denies recent fevers, chills, headache or dizziness. She denies recent dysuria, frequency, urgency or hematuria. She denies recent chest pain or shortness of breath. Allergies: codeine, amphicillin Past surgical history: Open heart surgery Primary Care Physician: Dr. Joey Hernandez Adoption Social Worker: Dr. Hahn <Luis M Deluna - Last Filed: 10/30/17 18:05> <Ignacia Winkler - Last Filed: 10/30/17 20:13> - General Chief Complaint: Nausea/Vomiting Stated Complaint: DEHYDRATION Time Seen by Provider: 10/30/17 16:25 Past History <Luis M Deluna - Last Filed: 10/30/17 18:05> - Past Medical History Anemia: No Asthma: Yes (NO MEDS) Cancer: No Cardiac Disorders: Yes (AFIB) CVA: No COPD: No CHF: Yes DVT: No Dementia: No Diabetes: No Dialysis: No GI Disorders: No Disorders: No HTN: Yes Hypercholesterolemia: No Kidney Stones: No Liver Disease: Yes (FATTY LIVER) Psychiatric Problems: No Seizures: No Thyroid Disease: Yes (HYPO, NO MEDS) Lung CA: No - Surgical History Abdominal Surgery: Yes (TUBAL LIGATION) Appendectomy: No Cardiac Surgery: Yes (mitral valve replacement 2 wks ago) Cholecystectomy: No Lung Surgery: No Neurologic Surgery: No Orthopedic Surgery: No - Family Disease History Family Disease History: Diabetes: Father, Heart Disease: Father, Mother - Immunization History Immunization Up to Date: Yes - Suicide/Smoking/Psychosocial Hx Smoking Status: No Smoking History: Never smoked Have you smoked in the past 12 months: No Number of Cigarettes Smoked Daily: 0 Cigars Per Day: 0 Information on smoking cessation initiated: No Hx Alcohol Use: No Drug/Substance Use Hx: No Substance Use Type: None Hx Substance Use Treatment: No <[email or web address] dugan - Last Filed: 10/30/17 20:13> - Past Medical History Allergies/Adverse Reactions: Allergies Allergy/AdvReac Type Severity Reaction Status Date / Time ampicillin [Ampicillin] Allergy Severe Swelling Verified 10/30/17 16:07 codeine [Codeine] Allergy Swelling Verified 10/30/17 16:07 Home Medications: Ambulatory Orders Budesonide [Pulmicort 0.25 mg Nebulizer -] 1 amp NEB BID #60 amp 08/13/17 Digoxin [Lanoxin -] 0.125 mg PO DAILY tablet 08/13/17 Diltiazem Cd [Cardizem Cd -] 360 mg PO DAILY tab 08/13/17 Aspirin [ASA -] 81 mg PO DAILY 09/28/17 Furosemide [Lasix -] 40 mg PO DAILY 09/28/17 Metformin HCl [Glucophage -] 500 mg PO BID@1000,2100 09/28/17 Montelukast Na [Singulair -] 10 mg PO HS 09/28/17 Nebivolol HCl [Bystolic] 2.5 mg PO DAILY 09/28/17 Furosemide [Lasix -] 40 mg PO DAILY #30 tablet 10/03/17 Losartan Potassium [Cozaar -] 25 mg PO DAILY@1800 #30 tablet 10/03/17 Prednisone [Deltasone -] 30 mg PO DAILY #90 tablet 10/03/17 Warfarin Na [Coumadin -] 2.5 mg PO DAILY@1800 #30 tablet 10/03/17 Review of Systems - Review of Systems Comments:: 10/30/17 18:06 GENERAL/CONSTITUTIONAL: No fever or chills. No weakness. HEAD, EYES, EARS, NOSE AND THROAT: +Sore throat. No change in vision. No ear pain or discharge. CARDIOVASCULAR: No chest pain or shortness of breath. RESPIRATORY: No cough, wheezing, or hemoptysis. GASTROINTESTINAL: +Nausea. +Vomiting. +Diarrhea. No constipation. GENITOURINARY: No dysuria, frequency, or change in urination. MUSCULOSKELETAL: No joint or muscle swelling or pain. No neck or back pain. SKIN: No rash NEUROLOGIC: No headache, vertigo, loss of consciousness, or change in strength/ sensation. ENDOCRINE: No increased thirst. No abnormal weight change. HEMATOLOGIC/LYMPHATIC: No anemia, easy bleeding, or history of blood clots. ALLERGIC/IMMUNOLOGIC: No hives or skin allergy. <Luis M Deluna - Last Filed: 10/30/17 18:05> *Physical Exam - Vital Signs Last Vital Signs Temp Pulse Resp BP Pulse Ox 97.9 F 57 L 20 110/61 97 10/30/17 16:07 10/30/17 16:07 10/30/17 16:07 10/30/17 16:07 10/30/17 16:07 - Physical Exam Comments: 10/30/17 18:08 GENERAL: Awake, alert, and fully oriented, in no acute distress HEAD: No signs of trauma EYES: PERRLA, EOMI, sclera anicteric, conjunctiva clear ENT: Auricles normal inspection, hearing grossly normal, nares patent, oropharynx clear without exudates. Moist mucosa NECK: Normal ROM, supple, no lymphadenopathy, JVD, or masses LUNGS: +Diffuse wheezing bilaterally. +Rhonchi bilaterally at the bases. HEART: Regular rate and rhythm, normal S1 and S2, no murmurs, rubs or gallops ABDOMEN: Soft, nontender, normoactive bowel sounds.~ No guarding, no rebound.~ No masses EXTREMITIES: Normal range of motion, no edema.~ No clubbing or cyanosis. No cords, erythema, or tenderness NEUROLOGICAL: Cranial nerves II through XII grossly intact.~ Normal speech. SKIN: Warm, Dry, normal turgor, no rashes or lesions noted. <Luis M Deluna - Last Filed: 10/30/17 18:05> - Vital Signs Last Vital Signs Temp Pulse Resp BP Pulse Ox 97.9 F 57 L 20 110/61 97 10/30/17 16:07 10/30/17 16:07 10/30/17 16:07 10/30/17 16:07 10/30/17 16:07 <Ignacia Winkler - Last Filed: 10/30/17 20:13> Heart Score/ECG Review - ECG Intrepretation Comment:: 10/30/17 19:54 afib at 64, poor r wave progression, l axis, t wave flattening diffusely <Ignacia Winkler - Last Filed: 10/30/17 20:13> ED Treatment Course - LABORATORY CBC & Chemistry Diagram: 10/30/17 17:20 10/30/17 17:20 - ADDITIONAL ORDERS Additional order review: 10/30/17 17:20 RBC 4.79 D MCV 88.2 MCHC 31.7 L RDW 17.6 H MPV 8.8 Neutrophils % 60.6 D Lymphocytes % 25.3 D Monocytes % 13.4 H D Eosinophils % 0.2 D Basophils % 0.5 - Medications Given in the ED: ED Medications Discontinued Medications Generic Name Dose Route Start Last Admin Trade Name Freq PRN Reason Stop Dose Admin Albuterol/Ipratropium 1 amp 10/30/17 16:38 10/30/17 17:27 Duoneb - NEB 10/30/17 16:39 1 amp ONCE ONE Administration Albuterol/Ipratropium 1 amp 10/30/17 16:38 10/30/17 17:27 Duoneb - NEB 10/30/17 16:39 1 amp ONCE ONE Administration Famotidine/Sodium Chloride 20 mg in 50 mls @ 100 mls/hr 10/30/17 16:45 17:27 Pepcid 20 Mg Premixed Ivpb - IVPB 10/30/17 17:14 100 mls/hr ONCE ONE Administration Ondansetron HCl 4 mg 10/30/17 16:38 10/30/17 17:27 Zofran Injection IVPUSH 10/30/17 16:39 4 mg ONCE ONE Administration Sodium Chloride 1,000 ml 10/30/17 16:39 10/30/17 17:27 Normal Saline - IV 10/30/17 16:40 1,000 ml ONCE ONE Administration <Luis M Deluna - Last Filed: 10/30/17 18:05> - LABORATORY CBC & Chemistry Diagram: 10/30/17 17:20 10/30/17 17:20 <Ignacia Winkler - Last Filed: 10/30/17 20:13> Medical Decision Making - Medical Decision Making 10/30/17 17:17 a/p: 77yo female with cough/congestion and n/v today sent from [facility] for LLL infiltrate dehydrated and hasn't eaten in 3 days 3 episodes of n/v will check labs, cultures, cxr, ekg will need admission 10/30/17 19:51 re-eval: feeling better still with wheezing, will redose nebs and steroids abx ordered lll infiltrate on xray 10/30/17 20:[address] Garcia who accepts pt to the service for inpt admission <Ignacia Winkler - Last Filed: 10/30/17 20:13> *DC/Admit/Observation/Transfer - Attestations Scribe Attestion: 10/30/17 18:11 Documentation prepared by Luis M Deluna, acting as medical laboratory specialist for Ignacia Winkler DO. <Luis M Deluna - Last Filed: 10/30/17 18:05> - Discharge Dispostion Admit: Yes - Attestations Physician Attestion: 10/30/17 19:54 I, Dr. Ignacia Winkler DO, attest that this document has been prepared under my direction and personally reviewed by me in its entirety. I further attest, that it accurately reflects all work, treatment, procedures and medical decision -making performed by me. <Ignacia Winkler - Last Filed: 10/30/17 20:13> Diagnosis at time of Disposition: Pneumonia, COPD exacerbation - Discharge Dispostion Condition at time of disposition: Guarded - Referrals Referrals: Joey Hernandez MD [Primary Care Provider] -
[2017-10-30] MEDS ORDERED: ONDANSETRON 4 MG/2 ML VIAL IVPUSH ONE (16:38)
[2017-10-30] MEDS ORDERED: ALBUTEROL SO4 2.5/IPRATROPIUM 0.5 INH SOL 3 ML VIAL.NEB. NEB ONE ×5 (16:38→20:26)
[2017-10-30] MEDS ORDERED: SODIUM CHLORIDE 0.9% 1000 ML INFUS.BAG IV ONE (16:39)
[2017-10-30] MEDS ORDERED: FAMOTIDINE 20 MG/50 ML IVPB 20 MG/50 ML MG IVPB ONE ×2 (16:45→17:16)
[2017-10-30] MEDS ORDERED: ONDANSETRON 4 MG/2 ML VIAL ONE (17:16)
[2017-10-30 17:38] LABS: BASO % 0.5 % (0-2.0); EOS % 0.2 % (0-4.5); HEMATOCRIT 42.3 % (32.4-45.2); HEMOGLOBIN 13.4 GM/dL (10.7-15.3); LYMPH % 25.3 % (8-40); MCHC 31.7 g/dl (32.0-36.0); MEAN CELL VOLUME 88.2 fl (80-96); MEAN PLT VOLUME 8.8 fl (7.5-11.1); MONO % 13.4 % (3.8-10.2); NEUT % 60.6 % (42.8-82.8); PLATELET COUNT 276 K/MM3 (134-434); RBC 4.79 M/mm3 (3.60-5.2); RDW 17.6 % (11.6-15.6); WHITE BLOOD COUNT 7.8 K/mm3 (4.0-10.0)
[2017-10-30] MEDS ORDERED: methylPREDNISolone NA SUCC 125 MG/2 ML VIAL ONE ×2 (18:17→20:26)
[2017-10-30 18:20] LABS: INR 9.12 (0.82-1.09)
[2017-10-30] MEDS ORDERED: VANCOMYCIN 1 GRAM (PRE-DOCKED) 1,000 MG/250 ML BAG IVPB ONE ×2 (19:43→20:26)
[2017-10-30] MEDS ORDERED: AZTREONAM 1 GM in DEXTROSE 5%-WATER - 50 ML IVPB ONE (19:44)
[2017-10-30] MEDS ORDERED: methylPREDNISolone NA SUCC 125 MG/2 ML VIAL IVPB ONE (19:49)
[2017-10-30 20:42] LABS: ALBUMIN 2.6 g/dl (3.4-5.0); ANION GAP 12 (8-16); BILIRUBIN,TOTAL 0.4 mg/dL (0.2-1.0); BLOOD UREA NITROGEN 20 mg/dL (7-18); CALCIUM 7.9 mg/dL (8.5-10.1); CHLORIDE 102 mmol/L (98-107); CO2 24 mmol/L (21-32); CREATININE 1.5 mg/dL (0.55-1.02); GLUCOSE,RANDOM 159 mg/dL (74-106); SGPT/ALT 13 U/L (12-78); SODIUM 138 mmol/L (136-145); TOT PROT 5.5 g/dl (6.4-8.2)
[2017-10-30 20:43] LABS: ALK PHOS 67 U/L (45-117)
[2017-10-30] MEDS ORDERED: AZTREONAM 1 GRAM SYRINGE 1 GM/10 ML DISP.SYRIN IVPUSH ONE (20:45)
[2017-10-30 20:48] LABS: POTASSIUM 3.9 mmol/L (3.5-5.1); SGOT/AST 27 U/L (15-37)
--- NOTE | 2017-10-30 23:22 | HP ---
CHIEF COMPLAINT: emesis, diarrhea PCP: HISTORY OF PRESENT ILLNESS: 77 y/o F with PMH afib (on coumadin), CHF, HTN, hypothyroidism, asthma, COPD, mitral insufficiency s/p valve replacement, who came to ED from [facility] with emesis and diarrhea for the past day. As per pt, she has had decreased PO intake , multiple episodes of NBNB emesis, as well as multiple loose BMs during this time. She denies NELSON, fever, chills, or any sick contacts. [place] found to have LLL infiltrate and was sent here for that reason. ER course was notable for: (1) vancomycin 1g x 1, aztreonam 1g x 1 (2) nebulizer tx, multiple duonebs (3) solumedrol 125mg x 1 (4) zofran Recent Travel: none PAST MEDICAL HISTORY: afib (on coumadin), CHF, HTN, hypothyroidism, asthma, COPD , mitral insufficiency s/p valve replacement PAST SURGICAL HISTORY: mitral valve replacement (jun 2017) Social History: Smoking: denies Alcohol:denies Drugs: denies Family History: cardiac issues in both parents Allergies ampicillin [Ampicillin] Allergy (Severe, Verified 10/30/17 16:07) facial Swelling codeine [Codeine] Allergy (Verified 10/30/17 16:07) facial Swelling HOME MEDICATIONS: Home Medications Medication Instructions Recorded Budesonide [Pulmicort 0.25 mg 1 amp NEB BID #60 amp 08/13/17 Nebulizer -] Digoxin [Lanoxin -] 0.125 mg PO DAILY tablet 08/13/17 Diltiazem Cd [Cardizem Cd -] 360 mg PO DAILY tab 08/13/17 Aspirin [ASA -] 81 mg PO DAILY 09/28/17 Furosemide [Lasix -] 40 mg PO DAILY 09/28/17 Metformin HCl [Glucophage -] 500 mg PO BID@1000,2100 09/28/17 Montelukast Na [Singulair -] 10 mg PO HS 09/28/17 Nebivolol HCl [Bystolic] 2.5 mg PO DAILY 09/28/17 Furosemide [Lasix -] 40 mg PO DAILY #30 tablet 10/03/17 Losartan Potassium [Cozaar -] 25 mg PO DAILY@1800 #30 tablet 10/03/17 Prednisone [Deltasone -] 30 mg PO DAILY #90 tablet 10/03/17 Warfarin Na [Coumadin -] 2.5 mg PO DAILY@1800 #30 tablet 10/03/17 REVIEW OF SYSTEMS CONSTITUTIONAL: +decreased appetite Absent: fever, chills, diaphoresis, generalized weakness, malaise, loss of appetite, weight change HEENT: Absent: rhinorrhea, nasal congestion, throat pain, throat swelling, difficulty swallowing, mouth swelling, ear pain, eye pain, visual changes CARDIOVASCULAR: Absent: chest pain, syncope, palpitations, irregular heart rate, lightheadedness , peripheral edema RESPIRATORY: +cough Absent: cough, shortness of breath, dyspnea with exertion, orthopnea, wheezing, stridor, hemoptysis GASTROINTESTINAL: +diarrhea, +vomiting Absent: abdominal pain, abdominal distension, nausea, vomiting, diarrhea, constipation, melena, hematochezia GENITOURINARY: Absent: dysuria, frequency, urgency, hesitancy, hematuria, flank pain, genital pain MUSCULOSKELETAL: Absent: myalgia, arthralgia, joint swelling, back pain, neck pain SKIN: Absent: rash, itching, pallor HEMATOLOGIC/IMMUNOLOGIC: Absent: easy bleeding, easy bruising, lymphadenopathy, frequent infections ENDOCRINE: Absent: unexplained weight gain, unexplained weight loss, heat intolerance, cold intolerance NEUROLOGIC: Absent: headache, focal weakness or paresthesias, dizziness, unsteady gait, seizure, mental status changes, bladder or bowel incontinence PSYCHIATRIC: Absent: anxiety, depression, suicidal or homicidal ideation, hallucinations. PHYSICAL EXAMINATION Vital Signs - 24 hr 10/30/17 16:07 Temperature 97.9 F Pulse Rate 57 L Respiratory 20 Rate Blood Pressure 110/61 O2 Sat by Pulse 97 Oximetry (%) GENERAL: Awake, alert, and fully oriented, in no acute distress. HEAD: Normal with no signs of trauma. EYES: Pupils equal, round and reactive to light, extraocular movements intact, sclera anicteric, conjunctiva clear. EARS, NOSE, THROAT: Ears normal, nares patent, tonsillar erythema without exudates NECK: Normal range of motion, supple without lymphadenopathy, JVD, or masses. LUNGS: wheezes and rhonchi b/l . without accessory m. usage HEART: Regular rate and rhythm, normal S1 and S2 without murmur, rub or gallop. ABDOMEN: Soft, nontender, not distended, normoactive bowel sounds, no guarding, no rebound, no masses. LOWER EXTREMITIES: 2+ posterior tibial pulses, warm, well-perfused. No calf tenderness. NEUROLOGICAL: Cranial nerves II-XII intact. Laboratory Results 10/30/17 10/30/17 10/30/17 17:20 17:20 20:00 WBC 7.8 D RBC 4.79 D Hgb 13.4 D Hct 42.3 D Plt Count 276 D INR 9.12 H* D Sodium 138 Potassium 3.9 Chloride 102 Carbon Dioxide 24 Anion Gap 12 BUN 20 H Creatinine 1.5 H Random Glucose 159 H Total Protein 5.5 L Albumin 2.6 L Micro -blood cx: pending ASSESSMENT/PLAN: 77 y/o F with PMH afib (on coumadin), CHF, HTN, hypothyroidism, asthma, COPD, mitral insufficiency s/p valve replacement, who came to ED from [facility] with emesis and diarrhea for the past day. As per pt, she has had decreased PO intake , multiple episodes of NBNB emesis, as well as multiple loose BMs during this time. [place] found to have LLL infiltrate. Pt admitted to tele for dehydration 2/2 possible viral gastroenteritis. #Dehydration 2/2 possible viral gastroenteritis -decreased PO intake, with multiple episodes emesis. likely viral -IV NS 1L -F/u BMP tomorrow to ensure no electrolyte abnormalities #mild COPD exacerbation -duonebs q4h PRN -02 as needed -continue budesonide 1amp BID, singulair 10mg P0 -prednisone 30mg PO BID -Pulm consult- Dr. Day #supratherapeutic INR -hold Coumadin -hold aspirin 81 mg -INR checks #afib -holding coumadin -continue rate control nebivolol 2.5 mg PO qd, diltiazem 360 mg qd -continue digoxin 0.125mg qd #HTN- currently controlled -continue losartan 25 mg PO qd #CHF -continue lasix 40mg qd -avoid fluid overload #F/E/N -to receive IV NS 1 L -will monitor electrolytes -sodium controlled diet #Prophylaxis DVT: SCD's. d/t supratherapeutic INR holding hep SQ BID #Disposition Telemetry monitoring Visit type - Emergency Visit Emergency Visit: Yes ED Registration Date: 10/30/17 Care time: The patient presented to the Emergency Department on the above date and was hospitalized for further evaluation of their emergent condition. - New Patient This patient is new to me today: Yes Date on this admission: 10/31/17 - Critical Care Critical Care patient: No
[2017-10-30] MEDS ORDERED: BUDESONIDE 0.25 MG/2ML INH SUSP VIAL NEB SCH (23:30)
--- NOTE | 2017-10-30 23:52 | PN ---
Teaching Attending Note Name of Resident: Pam Lerner ATTENDING PHYSICIAN STATEMENT I saw and evaluated the patient. I reviewed the resident's note and discussed the case with the resident. I agree with the resident's findings and plan as documented. SUBJECTIVE: 77 year old female c/o nausea and vomiting x 2 days associated with 2-3 episodes of loose stool . As per ER she was disagnosed with LLL infiltrate in NH and sent to ED with dx of pneumonia She does have chronic cough and wheezing however not more then at baseline OBJECTIVE: Vital Signs Temperature 97.9 F 10/30/17 16:07 Pulse Rate 57 L 10/30/17 16:07 Respiratory Rate 20 10/30/17 16:07 Blood Pressure 110/61 10/30/17 16:07 O2 Sat by Pulse Oximetry (%) 97 10/30/17 16:07 RS - b/l wheezing mild CBC, BMP 10/30/17 17:20 10/30/17 20:00 CXR small retrocardiac opacification ASSESSMENT AND PLAN: 1. Gastroenteritis /dehydration - possibly viral - IVF x 1 L and reevaluate ( avoid fluid overload) - zofran for nausea 2. Coagulopathy - coumadin toxicity . No bleeding - hold coumadin - monitor for signs of bleeding 3. LLL opacity on CXR is not a Pneumonia. She has a history of pericardial cyst 4. AFIB - rate controlled 5. COPD excarbation - nebs - prednisone
[2017-10-31 07:41] LABS: BASO % 0.4 % (0-2.0); EOS % 0.1 % (0-4.5); HEMATOCRIT 42.2 % (32.4-45.2); HEMOGLOBIN 13.3 GM/dL (10.7-15.3); LYMPH % 19.6 % (8-40); MCH 27.9 pg (25.7-33.7); MCHC 31.4 g/dl (32.0-36.0); MEAN CELL VOLUME 88.7 fl (80-96); MEAN PLT VOLUME 8.9 fl (7.5-11.1); MONO % 2.1 % (3.8-10.2); NEUT % 77.8 % (42.8-82.8); PLATELET COUNT 277 K/MM3 (134-434); RBC 4.76 M/mm3 (3.60-5.2); RDW 17.6 % (11.6-15.6); WHITE BLOOD COUNT 4.5 K/mm3 (4.0-10.0)
[2017-10-31 07:58] LABS: ANION GAP 18 (8-16); BLOOD UREA NITROGEN 19 mg/dL (7-18); CALCIUM 8.5 mg/dL (8.5-10.1); CHLORIDE 101 mmol/L (98-107); CO2 19 mmol/L (21-32); CREATININE 1.5 mg/dL (0.55-1.02); GLUCOSE,RANDOM 235 mg/dL (74-106); MAGNESIUM 1.4 mg/dL (1.8-2.4); PHOSPHOROUS 3.1 mg/dL (2.5-4.9); POTASSIUM 3.9 mmol/L (3.5-5.1); SODIUM 138 mmol/L (136-145)
[2017-10-31 08:25] LABS: PROTHROMBIN TIME (PATIENT) 132.2 SEC (9.98-11.88)
[2017-10-31 08:32] LABS: INR 11.7 (0.82-1.09)
--- NOTE | 2017-10-31 09:07 | PN ---
Progress Note, Physician History of Present Illness: c/o weakness - Current Medication List Current Medications: Active Medications Albuterol/Ipratropium (Duoneb -) 1 amp NEB Q4H PRN PRN Reason: SHORTNESS OF BREATH Budesonide (Pulmicort 0.25 Mg Nebulizer -) 1 amp NEB RBID BLESSING Digoxin (Lanoxin -) 0.125 mg PO DAILY BLESSING Diltiazem HCl (Cardizem Cd -) 360 mg PO DAILY BLESSING Furosemide (Lasix -) 40 mg PO DAILY BLESSING Sodium Chloride (Normal Saline -) 1,000 mls @ 150 mls/hr IV ASDIR BLESSING Losartan Potassium (Cozaar -) 25 mg PO DAILY@1800 BLESSING Montelukast Sodium (Singulair -) 10 mg PO HS BLESSING Nebivolol (Bystolic -) 2.5 mg PO DAILY BLESSING Prednisone (Deltasone -) 30 mg PO BID BLESSING - Objective Vital Signs: Vital Signs Temperature 97.4 F L 10/31/17 06:00 Pulse Rate 94 H 10/31/17 06:00 Respiratory Rate 20 10/31/17 06:00 Blood Pressure 125/80 10/31/17 06:00 O2 Sat by Pulse Oximetry (%) 97 10/30/17 16:07 Cardiovascular: Yes: Regular Rate and Rhythm Respiratory: Yes: Regular, CTA Bilaterally Gastrointestinal: Yes: Normal Bowel Sounds, Soft. No: Tenderness Edema: No Labs: CBC, BMP 10/31/17 05:18 10/31/17 05:18 INR, PTT INR 11.70 (0.82-1.09) H* 10/31/17 05:18 Assessment/Plan 77 y/o F with PMH afib (on coumadin), CHF, HTN, hypothyroidism, asthma, COPD, mitral insufficiency s/p valve replacement, who came to ED from [facility] with emesis and diarrhea for the past day. As per pt, she has had decreased PO intake , multiple episodes of NBNB emesis, as well as multiple loose BMs during this time. However [place] the [place], [place] was found to have LLL infiltrate. Pt admitted to tele for dehydration 2/2 possible viral gastroenteritis. #Dehydration 2/2 possible viral gastroenteritis -decreased PO intake, with multiple episodes emesis. likely viral -IV NS 1L -F/u BMP to ensure no electrolyte abnormalities #mild COPD exacerbation -duonebs q4h PRN -02 as needed -continue budesonide 1amp BID, singulair 10mg P0 -prednisone 30mg PO BID -Pulm consult- Dr. Day #supratherapeutic INR -hold Coumadin -hold aspirin 81 mg -INR checks #afib -holding coumadin -continue rate control nebivolol 2.5 mg PO qd, diltiazem 360 mg qd -continue digoxin 0.125mg qd #HTN- currently controlled -continue losartan 25 mg PO qd #CHF -continue lasix 40mg qd -avoid fluid overload #F/E/N -to receive IV NS 1 L -will monitor electrolytes -sodium controlled diet #Prophylaxis DVT: SCD's. d/t supratherapeutic INR holding hep SQ BID #Confusion ct of head neuro
[2017-10-31] MEDS ORDERED: predniSONE 10 MG TABLET (UD) PO SCH (10:00)
[2017-10-31] MEDS ORDERED: PT OWN MED DRAWER 7, Y5N ONE ×3 (10:15→21:13)
[2017-10-31] MEDS: DIGOXIN 0.125 MG TABLET (FP) PO SCH (10:24)
[2017-10-31] MEDS: FUROSEMIDE 40 MG TABLET (FP) PO SCH (10:24)
[2017-10-31] MEDS: predniSONE 10 MG TABLET (UD) PO SCH ×2 (10:25→21:49)
[2017-10-31] MEDS: SODIUM CHLORIDE 1,000 ML IV SCH (10:28)
--- NOTE | 2017-10-31 13:27 | EKG ---
Test Reason : Blood Pressure : / mmHG Vent. Rate : 064 BPM Atrial Rate : 375 BPM P-R Int : 000 ms QRS Dur : 076 ms QT Int : 380 ms P-R-T Axes : 000 -39 077 degrees QTc Int : 392 ms ATRIAL FIBRILLATION LEFT AXIS DEVIATION LOW VOLTAGE QRS ABNORMAL ECG Confirmed by MD ULISES, SHELLI ([id number]) on 10/31/2017 1:27:45 PM Referred By: Confirmed By:SHELLI MONTGOMERY MD
[2017-10-31] MEDS: BUDESONIDE 0.25 MG/2ML INH SUSP VIAL NEB SCH ×2 (14:10→21:43)
[2017-10-31] MEDS ORDERED: MAGNESIUM SULFATE IN WATER 2 GM/50 ML IVPB IVPB ONE (14:15)
[2017-10-31] MEDS: NEBIVOLOL 2.5 MG TABLET (FP) PO SCH (14:31)
--- NOTE | 2017-10-31 14:32 | PN ---
Progress Note, Physician History of Present Illness: Pt admitted with nausea, vomiting, diarrhea, possible pneumonia, confusion. pt seen and examined sitting at nursing station. awake, alert, but confused, calm. denies any complaints. - Current Medication List Current Medications: Active Medications Albuterol/Ipratropium (Duoneb -) 1 amp NEB Q4H PRN PRN Reason: SHORTNESS OF BREATH Budesonide (Pulmicort 0.25 Mg Nebulizer -) 1 amp NEB RBID [facility] Digoxin (Lanoxin -) 0.125 mg PO DAILY [facility] Last Admin: 10/31/17 10:24 Dose: 0.125 mg Diltiazem HCl (Cardizem Cd -) 360 mg PO DAILY [facility] Last Admin: 10/31/17 10:24 Dose: 360 mg Furosemide (Lasix -) 40 mg PO DAILY [facility] Last Admin: 10/31/17 10:24 Dose: 40 mg Sodium Chloride (Normal Saline -) 1,000 mls @ 150 mls/hr IV ASDIR [facility] Last Admin: 10/31/17 10:28 Dose: Not Given MAGNESIUM SULFATE IN WATER (Magnesium Sulf 2 G/50 Ml Bag) 2 gm in 50 mls @ 50 mls/hr IVPB ONCE ONE Stop: 10/31/17 15:14 Losartan Potassium (Cozaar -) 25 mg PO DAILY@1800 [facility] Montelukast Sodium (Singulair -) 10 mg PO HS [facility] Nebivolol (Bystolic -) 2.5 mg PO DAILY [facility] Prednisone (Deltasone -) 30 mg PO BID [facility] Last Admin: 10/31/17 10:25 Dose: 30 mg - Objective Vital Signs: Vital Signs Temperature 97.4 F L 10/31/17 06:00 Pulse Rate 88 10/31/17 10:24 Respiratory Rate 20 10/31/17 06:00 Blood Pressure 125/80 10/31/17 06:00 O2 Sat by Pulse Oximetry (%) 97 10/30/17 16:07 Constitutional: Yes: No Distress, Calm Eyes: Yes: Conjunctiva Clear, EOM Intact, PERRL HENT: Yes: Atraumatic, Normocephalic Neck: Yes: Supple, Trachea Midline Cardiovascular: Yes: Pulse Irregular, S1, S2. No: Bradycardia, Tachycardia, Bruit, JVD, Gallop, Murmur, Rub, S3, S4, Varicosities Respiratory: Yes: Regular, Diminished. No: Rales, Rhonchi, SOB, Wheezes Gastrointestinal: Yes: Normal Bowel Sounds, Soft. No: Distention, Tenderness Extremities: Yes: WNL Edema: No Peripheral Pulses WNL: Yes Integumentary: Yes: WNL Neurological: Yes: Alert. No: Oriented Psychiatric: Yes: Alert. 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 GI illness/possible PNA -as per PMD -ok to dc tele AFib-HR adequately controlled currently, INR supratherapeutic likely secondary to GI illness -cont current medical regimen -Hold coumadin for now, once INR back in therapeutic range plan to resume for goal INR 2-3 -ok to dc tele Bio MVR -outpatient f/up HTN-Adequately controlled -cont current medical regimen Chronic systolic/Diastolic CHF-euvolemic -Cont PO Lasix
[2017-10-31] MEDS ORDERED: PHYTONADIONE 10 MG/1 ML AMP IM ONE (14:35)
--- NOTE | 2017-10-31 15:24 | PN ---
Progress Note (short form) - Note Progress Note: PULMONARY CONSULTATION DICTATED 10/31/17 IMP ASTHMA/COPD GASTROENTERITIS DEHYDRATION CONFUSION LLL OPACITY CHRONIC AFIB S/P MVR SUPRA-THERAPEUTIC INR JOE PLAN INHALED BRONCHODILATORS O2 FLUIDS MONITOR INR MONITOR MALATHI YE Problem List - Problems (1) Altered mental status Code(s): R41.82 - ALTERED MENTAL STATUS, UNSPECIFIED (2) Asthma Code(s): J45.909 - UNSPECIFIED ASTHMA, UNCOMPLICATED Qualifiers: Asthma severity: mild persistent (3) Atrial fibrillation Code(s): I48.91 - UNSPECIFIED ATRIAL FIBRILLATION Qualifiers: Atrial fibrillation type: permanent Qualified Code(s): I48.2 - Chronic atrial fibrillation (4) COPD (chronic obstructive pulmonary disease) Code(s): J44.9 - CHRONIC OBSTRUCTIVE PULMONARY DISEASE, UNSPECIFIED (5) Confusion Code(s): R41.0 - DISORIENTATION, UNSPECIFIED (6) Cough Code(s): R05 - COUGH (7) H/O heart valve replacement with bioprosthetic valve Code(s): Z95.3 - PRESENCE OF XENOGENIC HEART VALVE (8) History of mitral valve replacement with bioprosthetic valve Code(s): Z95.3 - PRESENCE OF XENOGENIC HEART VALVE (9) Supratherapeutic INR Code(s): R79.1 - ABNORMAL COAGULATION PROFILE (10) Thyroid disease Code(s): E07.9 - DISORDER OF THYROID, UNSPECIFIED (11) Acute kidney injury Code(s): N17.9 - ACUTE KIDNEY FAILURE, UNSPECIFIED (12) Gastroenteritis Code(s): K52.9 - NONINFECTIVE GASTROENTERITIS AND COLITIS, UNSPECIFIED
--- NOTE | 2017-10-31 15:49 | CON.ID ---
Consult Consult Specialty:: infectious disease Referred by:: willow Reason for Consultation:: possible pneumonia - History of Present Illness Chief Complaint: none History of Present Illness: she had vomiting and diarrhea at the NH was started on levaquin on 10/28 for a LL pneumonia no change in her chronic cough no fevers has been eating poorly for a while has no appetite oriented to name and place, 2016 blood cultures drawn, received vanco/azactam in ED eating today- no further vomiting or diarrhea - History Source History Provided By: Patient, Medical Record - Past Medical History Cardio/Vascular: Yes: AFIB (REFUSED ANTICOAGULATION IN PAST NOW ON COUMADIN), CAD, HTN, Hyperlipdemia, Mitral Insufficiency (s/p valve replacement) Pulmonary: Yes: Asthma, Bronchitis, COPD Gastrointestinal: Yes: GERD Musculoskeletal: Yes: Osteoarthritis Endocrine: Yes: Hyperthyroidism. No: Diabetes Mellitus Additional Medical History: LEFT POPLITEAL DVT - Past Surgical History Past Surgical History: Yes: Tubal Ligation (laparoscopic), Valve Replacement ( mechanical mitral 2 wks ago) - Alcohol/Substance Use Hx Alcohol Use: No History of Substance Use: reports: None - Smoking History Smoking history: Never smoked Have you smoked in the past 12 months: No Aproximately how many cigarettes per day: 0 - Social History Usual Living Arrangement: Correction ADL: Independent Place of : [facility] History of Recent Travel: No Home Medications - Allergies Allergies/Adverse Reactions: Allergies Allergy/AdvReac Type Severity Reaction Status Date / Time ampicillin [Ampicillin] Allergy Severe Swelling Verified 10/30/17 16:07 codeine [Codeine] Allergy Swelling Verified 10/30/17 16:07 - Home Medications Home Medications: Ambulatory Orders Budesonide [Pulmicort 0.25 mg Nebulizer -] 1 amp NEB BID #60 amp 08/13/17 Digoxin [Lanoxin -] 0.125 mg PO DAILY tablet 08/13/17 Diltiazem Cd [Cardizem Cd -] 360 mg PO DAILY tab 08/13/17 Aspirin [ASA -] 81 mg PO DAILY 09/28/17 Furosemide [Lasix -] 40 mg PO DAILY 09/28/17 Metformin HCl [Glucophage -] 500 mg PO BID@1000,2100 09/28/17 Montelukast Na [Singulair -] 10 mg PO HS 09/28/17 Nebivolol HCl [Bystolic] 2.5 mg PO DAILY 09/28/17 Furosemide [Lasix -] 40 mg PO DAILY #30 tablet 10/03/17 Losartan Potassium [Cozaar -] 25 mg PO DAILY@1800 #30 tablet 10/03/17 Prednisone [Deltasone -] 30 mg PO DAILY #90 tablet 10/03/17 Warfarin Na [Coumadin -] 2.5 mg PO DAILY@1800 #30 tablet 10/03/17 Family Disease History - Family Disease History Family Disease History: Diabetes: Father (HTN) Review of Systems - Review of Systems Constitutional: reports: No Symptoms Eyes: reports: No Symptoms HENT: reports: No Symptoms Neck: reports: No Symptoms Cardiovascular: reports: No Symptoms Respiratory: reports: No Symptoms Gastrointestinal: reports: Other (diarrhea and vomiting have resolved) Physical Exam Vital Signs: Vital Signs Temperature 97.4 F L 10/31/17 06:00 Pulse Rate 88 10/31/17 14:00 Respiratory Rate 20 10/31/17 14:00 Blood Pressure 131/83 10/31/17 14:00 O2 Sat by Pulse Oximetry (%) 97 10/30/17 16:07 Constitutional: Yes: Well Nourished Eyes: Yes: Conjunctiva Clear HENT: Yes: Atraumatic, Normocephalic Neck: Yes: Supple Cardiovascular: Yes: Regular Rate and Rhythm Respiratory: Yes: Regular, Other (scattered wheeze) Gastrointestinal: Yes: Normal Bowel Sounds, Soft. No: Tenderness ...Rectal Exam: Yes: Deferred Extremities: Yes: WNL. No: Erythema Edema: No Psychiatric: Yes: Alert Labs: CBC, BMP 10/31/17 05:18 10/31/17 05:18 blood cultures pending Imaging - Results Chest X-ray: Report Reviewed, Image Reviewed (no acute infiltrate leftpericardial cyst unchanged) Problem List - Problems (1) Gastroenteritis Code(s): K52.9 - NONINFECTIVE GASTROENTERITIS AND COLITIS, UNSPECIFIED (2) COPD exacerbation Code(s): J44.1 - CHRONIC OBSTRUCTIVE PULMONARY DISEASE W (ACUTE) EXACERBATION (3) S/P MVR (mitral valve replacement) Code(s): Z95.2 - PRESENCE OF PROSTHETIC HEART VALVE (4) Allergy to ampicillin Code(s): Z88.0 - ALLERGY STATUS TO PENICILLIN (5) Supratherapeutic INR Code(s): R79.1 - ABNORMAL COAGULATION PROFILE Assessment/Plan gastroenteritis- resolved supratherapeutic INR- most likely due to coumadin and levaquin interaction no signs pneumonia or acute bacterial infection agree with blood cultures she received vanco/azactam in ED would hold further antibiotics GI to see for weight loss
[2017-10-31] MEDS: LOSARTAN POTASSIUM 25 MG TABLET PO SCH (17:16)
--- NOTE | 2017-10-31 18:43 | CON.GI ---
Consult Consult Specialty:: GI Referred by:: Dr Perez - History of Present Illness History of Present Illness: Patient seen with her daughter present. She was complaining of poor appetite for a few a days. Yesterday she was noted to have nausea, vomiting and abdominal pain. This evening this has resolved. Denies nausea, vomiting and abdominal pain. - Past Medical History Cardio/Vascular: Yes: AFIB (REFUSED ANTICOAGULATION IN PAST NOW ON COUMADIN), CAD, HTN, Hyperlipdemia, Mitral Insufficiency (s/p valve replacement) Pulmonary: Yes: Asthma, Bronchitis, COPD Gastrointestinal: Yes: GERD Musculoskeletal: Yes: Osteoarthritis Endocrine: Yes: Hyperthyroidism. No: Diabetes Mellitus Additional Medical History: LEFT POPLITEAL DVT - Past Surgical History Past Surgical History: Yes: Tubal Ligation (laparoscopic), Valve Replacement ( mechanical mitral 2 wks ago) - Alcohol/Substance Use Hx Alcohol Use: No History of Substance Use: reports: None - Smoking History Smoking history: Never smoked Have you smoked in the past 12 months: No Aproximately how many cigarettes per day: 0 - Social History Usual Living Arrangement: Skilled Nursing ADL: Independent History of Recent Travel: No Home Medications - Allergies Allergies/Adverse Reactions: Allergies Allergy/AdvReac Type Severity Reaction Status Date / Time ampicillin [Ampicillin] Allergy Severe Swelling Verified 10/30/17 16:07 codeine [Codeine] Allergy Swelling Verified 10/30/17 16:07 - Home Medications Home Medications: Ambulatory Orders Budesonide [Pulmicort 0.25 mg Nebulizer -] 1 amp NEB BID #60 amp 08/13/17 Digoxin [Lanoxin -] 0.125 mg PO DAILY tablet 08/13/17 Diltiazem Cd [Cardizem Cd -] 360 mg PO DAILY tab 08/13/17 Aspirin [ASA -] 81 mg PO DAILY 09/28/17 Furosemide [Lasix -] 40 mg PO DAILY 09/28/17 Metformin HCl [Glucophage -] 500 mg PO BID@1000,2100 09/28/17 Montelukast Na [Singulair -] 10 mg PO HS 09/28/17 Nebivolol HCl [Bystolic] 2.5 mg PO DAILY 09/28/17 Furosemide [Lasix -] 40 mg PO DAILY #30 tablet 10/03/17 Losartan Potassium [Cozaar -] 25 mg PO DAILY@1800 #30 tablet 10/03/17 Prednisone [Deltasone -] 30 mg PO DAILY #90 tablet 10/03/17 Warfarin Na [Coumadin -] 2.5 mg PO DAILY@1800 #30 tablet 10/03/17 Family Disease History - Family Disease History Family Disease History: Diabetes: Father (HTN) Physical Exam-GI Vital Signs: Vital Signs Temperature 97.4 F L 10/31/17 06:00 Pulse Rate 88 10/31/17 14:00 Respiratory Rate 20 10/31/17 14:00 Blood Pressure 131/83 10/31/17 14:00 O2 Sat by Pulse Oximetry (%) 97 10/30/17 16:07 Constitutional: Yes: Well Nourished, Poor Hygeine HENT: Yes: Atraumatic Neck: Yes: Trachea Midline Cardiovascular: Yes: Regular Rate and Rhythm Respiratory: Yes: CTA Bilaterally ...Palpate: Yes: Soft. No: Firm/Rigid, Guarding, Hepatomegaly, Mass, Pulsatile Mass, Splenomegaly, Tenderness Labs: CBC, BMP 10/31/17 05:18 10/31/17 05:18 INR, PTT INR 11.70 (0.82-1.09) H* 10/31/17 05:18 Problem List - Problems (1) Nausea & vomiting Assessment/Plan: and abdominal pain r/o viral infection, patioent ate 100 percent of sweet potato and grilled pork chops from home weight loss possibly will improve with home cooking, daughter was made aware R>please recall as necessary will not start any medication as she is completely asymptomatic Code(s): R11.2 - NAUSEA WITH VOMITING, UNSPECIFIED
--- NOTE | 2017-10-31 18:59 | CONS ---
DATE OF CONSULTATION: 10/31/2017 PULMONARY CONSULTATION REFERRING PHYSICIAN: Escobar Perez M.D. HISTORY OF PRESENT ILLNESS: This is a 77-year-old black female known to me from previous hospitalizations and office visits. PAST MEDICAL HISTORY: Chronic persistent asthma, multiple hospitalizations in the past secondary to asthma exacerbation, COPD, atrial fibrillation status post mitral valve replacement, hypothyroidism, hypertension, osteoarthritis, admitted to [facility] with complaints of sore throat for a couple days, vomiting and diarrhea which began the night prior to admission. The patient apparently on admission reported 3 episodes of vomiting and diarrhea. She denied any chest pain, palpitations, did complain of shortness of breath. She also complains of coughing. She had chest x-ray, apparently 2 days prior to admission which revealed possible left lower lobe pneumonia, at which time she was admitted for further therapy. Patient denies any fevers or chills. Denies any hemoptysis. She is a nonsmoker. There is no history of occupational exposure to chemicals or fumes. Does have a history of axillary vein thrombosis and abdominal wall hematoma. PAST MEDICAL HISTORY: Again includes atrial fibrillation, status post mitral valve replacement, axillary vein thrombosis, COPD, asthma, abdominal hematoma status post fall, thrombocytopenia, recent prolonged hospitalization acute exacerbation COPD. SOCIAL HISTORY: No smoking, no occupational exposures. REVIEW OF SYSTEMS: Positive shortness of breath. Positive cough. No fever. No chills. No hemoptysis. Positive for abdominal pain. Positive diarrhea. Positive vomiting. CURRENT MEDICATIONS: Include Pulmicort, prednisone, Cozaar, DuoNeb, Bystolic, Cardizem CD, Lanoxin, Singulair, and Lasix. PHYSICAL EXAMINATION: General: The patient is a well-developed, well-nourished female awake, alert, mildly confused, in no acute distress. Vital signs: She is currently afebrile. Blood pressure 125/80, respiratory rate 20. HEENT: Head is normocephalic, atraumatic. Neck: Supple. Heart: Regular. S1, S2. Chest: Scattered bilateral wheezes. Abdomen: Soft. Bowel sounds positive. Extremities: Bilateral lower extremity edema. Chest x-ray reveals no acute infiltrate or effusions. Retrocardiac density which has been present since the recent mitral valve surgery. WBC 4.5, hemoglobin 13.3, hematocrit 42.2 with platelet count of 277,000. BUN 19, creatinine 1.5. IMPRESSION: 1. Asthma, chronic obstructive pulmonary disease exacerbation. 2. Viral gastroenteritis. 3. Confusion, etiology to be determined. 4. Atrial fibrillation. 5. Status post mitral valve replacement. PLAN: Continue prednisone. Inhaled bronchodilators. Supplemental O2. Fluids. VANDANA YE M.D. KARINA/[id number] MTDD
[2017-10-31] MEDS: MONTELUKAST NA 10 MG TABLET PO SCH (21:50)
[2017-11-01 08:06] LABS: PROTHROMBIN TIME (PATIENT) 96.7 SEC (9.98-11.88)
[2017-11-01] MEDS ORDERED: PT OWN MED DRAWER 7, Y5N ONE ×2 (08:21→20:19)
[2017-11-01 08:30] LABS: INR 8.56 (0.82-1.09)
[2017-11-01] MEDS: SODIUM CHLORIDE 1,000 ML IV SCH (10:02)
[2017-11-01] MEDS: FUROSEMIDE 40 MG TABLET (FP) PO SCH (10:09)
[2017-11-01] MEDS: predniSONE 10 MG TABLET (UD) PO SCH ×2 (10:09→21:53)
[2017-11-01] MEDS: DIGOXIN 0.125 MG TABLET (FP) PO SCH (10:11)
[2017-11-01] MEDS: BUDESONIDE 0.25 MG/2ML INH SUSP VIAL NEB SCH ×2 (10:12→20:00)
[2017-11-01] MEDS: NEBIVOLOL 2.5 MG TABLET (FP) PO SCH ×2 (10:12→10:44)
--- NOTE | 2017-11-01 10:31 | PN ---
Progress Note, Physician Chief Complaint: Pt lying in bed; no chest pain; confused as to why she is receving medical tretment. History of Present Illness: The patient is a 77 year old black female, accompanied by daughter, with a significant past medical history of atrial fibrillation, diastolic congestive heart failure with severe pulmonary hypertension; systemic hypertension, hypothyroidism, asthma, COPD, osteoarthritis, and mitral insufficiency s/p bioprosthetic valve replacement, who presents to the emergency department with, sore throat for the past couple of days and vomiting and diarrhea beginning last night. The patient reports approx. 3 episodes of vomiting and three episodes of diarrhea described as non bloody, non bilious. The patient reports she does not currently feel nauseous. The patient reports she has been eating/ drinking less for the past couple of days with her last meal last night. The patient reports she received a chest XR approx. 2 days ago and was diagnosed with left lower lobe pneumonia. She denies recent fevers, chills, headache or dizziness. She denies recent dysuria, frequency, urgency or hematuria. She denies recent chest pain or shortness of breath. Allergies: codeine, amphicillin Past surgical history: Open heart surgery Primary Care Physician: Dr. Joey Hernandez Registered Dietetic Technician: Dr. Hahn - Current Medication List Current Medications: Active Medications Albuterol/Ipratropium (Duoneb -) 1 amp NEB Q4H PRN PRN Reason: SHORTNESS OF BREATH Budesonide (Pulmicort 0.25 Mg Nebulizer -) 1 amp NEB RBID [facility] Last Admin: 11/01/17 10:12 Dose: 1 amp Digoxin (Lanoxin -) 0.125 mg PO DAILY [facility] Last Admin: 11/01/17 10:11 Dose: Not Given Diltiazem HCl (Cardizem Cd -) 360 mg PO DAILY [facility] Last Admin: 11/01/17 10:09 Dose: 360 mg Furosemide (Lasix -) 40 mg PO DAILY [facility] Last Admin: 11/01/17 10:09 Dose: 40 mg Sodium Chloride (Normal Saline -) 1,000 mls @ 150 mls/hr IV ASDIR [facility] Last Admin: 11/01/17 10:02 Dose: Not Given Losartan Potassium (Cozaar -) 25 mg PO DAILY@1800 [facility] Last Admin: 10/31/17 17:16 Dose: 25 mg Montelukast Sodium (Singulair -) 10 mg PO HS [facility] Last Admin: 10/31/17 21:50 Dose: 10 mg Nebivolol (Bystolic -) 2.5 mg PO DAILY [facility] Last Admin: 11/01/17 10:12 Dose: 2.5 mg Prednisone (Deltasone -) 30 mg PO BID [facility] Last Admin: 11/01/17 10:09 Dose: 30 mg - Objective Vital Signs: Vital Signs Temperature 98.6 F 11/01/17 09:00 Pulse Rate 59 L 11/01/17 10:11 Respiratory Rate 11/01/17 09:00 Blood Pressure 116/68 11/01/17 09:00 O2 Sat by Pulse Oximetry (%) 97 10/30/17 16:07 Constitutional: Yes: Anxious, Mild Distress Eyes: Yes: WNL HENT: Yes: WNL Neck: Yes: WNL Cardiovascular: Yes: Pulse Irregular Respiratory: Yes: Diminished, Wheezes Gastrointestinal: Yes: Soft Genitourinary: No: Anuria Breast(s): Yes: WNL Musculoskeletal: Yes: Muscle Weakness Extremities: Yes: Cool Edema: No Peripheral Pulses WNL: Yes Integumentary: Yes: WNL Neurological: Yes: Confusion Psychiatric: Yes: Other Labs: CBC, BMP 10/31/17 05:18 10/31/17 05:18 INR, PTT INR 8.56 (0.82-1.09) H* 11/01/17 06:00 Abnormal Lab Results 11/02/17 11/02/17 11/02/17 05:36 05:36 05:36 PT with INR 48.60 H INR 4.30 H* D Hemoglobin A1c % 6.7 H TSH 0.05 L - ....Imaging Other: Image Reviewed (AF; periods of slow VR) Problem List - Problems (1) COPD exacerbation Code(s): J44.1 - CHRONIC OBSTRUCTIVE PULMONARY DISEASE W (ACUTE) EXACERBATION (2) Nausea & vomiting Code(s): R11.2 - NAUSEA WITH VOMITING, UNSPECIFIED (3) Acute on chronic diastolic (congestive) heart failure Code(s): I50.33 - ACUTE ON CHRONIC DIASTOLIC (CONGESTIVE) HEART FAILURE (4) Altered mental status Code(s): R41.82 - ALTERED MENTAL STATUS, UNSPECIFIED (5) Anemia Code(s): D64.9 - ANEMIA, UNSPECIFIED Qualifiers: Anemia type: other cause Other causes of anemia: acute posthemorrhagic Qualified Code(s): D62 - Acute posthemorrhagic anemia (6) History of mitral valve replacement with bioprosthetic valve Assessment/Plan: WBC WNL; afebrile. Code(s): Z95.3 - PRESENCE OF XENOGENIC HEART VALVE (7) Hypertension Code(s): I10 - ESSENTIAL (PRIMARY) HYPERTENSION Qualifiers: Hypertension type: essential hypertension Qualified Code(s): I10 - Essential (primary) hypertension (8) Atrial fibrillation Assessment/Plan: Telemetry: AF, with periods of slow VR. On Bystolic and Digoxin for HR control (f/u level of the latter, and keep 0.5- 1.0). Will discontinue Bystolic (bilateral wheezing; hx asthma; normal LVEF; AF with periods of slow VR). Will discontinue digoxin presently, and restart only if rapid VR. Continue diltiazem CD 360 mg daily; f/u HR and BP. Code(s): I48.91 - UNSPECIFIED ATRIAL FIBRILLATION Qualifiers: Atrial fibrillation type: permanent Qualified Code(s): I48.2 - Chronic atrial fibrillation (9) Hypomagnesemia Assessment/Plan: f/u levels after yesterday's repletion; keep at 2-2.3. F/u K and PO4. Code(s): E83.42 - HYPOMAGNESEMIA (10) Supratherapeutic INR Assessment/Plan: after vit K, INR 11-->8; f/u serially. F/u Hb (stable as of yesterday); check stood quaiac. Code(s): R79.1 - ABNORMAL COAGULATION PROFILE
[2017-11-01 10:58] LABS: BASO % 0.3 % (0-2.0); HEMATOCRIT 37.1 % (32.4-45.2); HEMOGLOBIN 11.6 GM/dL (10.7-15.3); LYMPH % 11.2 % (8-40); MCH 27.6 pg (25.7-33.7); MCHC 31.2 g/dl (32.0-36.0); MEAN CELL VOLUME 88.3 fl (80-96); NEUT % 79.5 % (42.8-82.8); PLATELET COUNT 246 K/MM3 (134-434); RBC 4.21 M/mm3 (3.60-5.2); RDW 17.5 % (11.6-15.6); WHITE BLOOD COUNT 8.5 K/mm3 (4.0-10.0)
[2017-11-01] MEDS: ALBUTEROL SO4 2.5/IPRATROPIUM 0.5 INH SOL 3 ML VIAL.NEB. NEB PRN (11:45)
--- NOTE | 2017-11-01 11:49 | CONSULT ---
Consult - text type - Consultation Consultation Note: Neurology History of Present Illness The patient is a 77 year old female, with a significant past medical history of atrial fibrillation, congestive heart failure, hypertension, hypothyroidism, asthma, COPD, osteoarthritis, and mitral insufficient s/p valve replacement, who presents to the emergency department with, sore throat for the past couple of days and vomiting and diarrhea. The patient reports approx. 3 episodes of vomiting and three episodes of diarrhea described as non bloody, non bilious. The patient reports she does not currently feel nauseous. The patient reports she has been eating/ drinking less for the past couple of days with her last meal last night. The patient completed a chest XR approx. 2 days ago and was diagnosed with left lower lobe pneumonia. I was consulted for altered mental status likely 2/2 infection/metabolic derangements but improving. Mental status appears to be near baseline now and is ambulating. She denies recent fevers, chills, headache or dizziness. She denies recent dysuria, frequency, urgency or hematuria. She denies recent chest pain or shortness of breath. - General Chief Complaint: Nausea/Vomiting Stated Complaint: DEHYDRATION Time Seen by Provider: 10/30/17 16:25 Past History - Past Medical History Anemia: No Asthma: Yes (NO MEDS) Cancer: No Cardiac Disorders: Yes (AFIB) CVA: No COPD: No CHF: Yes DVT: No Dementia: No Diabetes: No Dialysis: No GI Disorders: No Disorders: No HTN: Yes Hypercholesterolemia: No Kidney Stones: No Liver Disease: Yes (FATTY LIVER) Psychiatric Problems: No Seizures: No Thyroid Disease: Yes (HYPO, NO MEDS) Lung CA: No - Surgical History Abdominal Surgery: Yes (TUBAL LIGATION) Appendectomy: No Cardiac Surgery: Yes (mitral valve replacement 2 wks ago) Cholecystectomy: No Lung Surgery: No Neurologic Surgery: No Orthopedic Surgery: No - Family Disease History Family Disease History: Diabetes: Father, Heart Disease: Father, Mother - Immunization History Immunization Up to Date: Yes - Suicide/Smoking/Psychosocial Hx Smoking Status: No Smoking History: Never smoked Have you smoked in the past 12 months: No Number of Cigarettes Smoked Daily: 0 Cigars Per Day: 0 Information on smoking cessation initiated: No Hx Alcohol Use: No Drug/Substance Use Hx: No Substance Use Type: None Hx Substance Use Treatment: No - Past Medical History Allergies/Adverse Reactions: Allergies Allergy/AdvReac Type Severity Reaction Status Date / Time ampicillin [Ampicillin] Allergy Severe Swelling Verified 10/30/17 16:07 codeine [Codeine] Allergy Swelling Verified 10/30/17 16:07 Home Medications: Ambulatory Orders Budesonide [Pulmicort 0.25 mg Nebulizer -] 1 amp NEB BID #60 amp 08/13/17 Digoxin [Lanoxin -] 0.125 mg PO DAILY tablet 08/13/17 Diltiazem Cd [Cardizem Cd -] 360 mg PO DAILY tab 08/13/17 Aspirin [ASA -] 81 mg PO DAILY 09/28/17 Furosemide [Lasix -] 40 mg PO DAILY 09/28/17 Metformin HCl [Glucophage -] 500 mg PO BID@1000,2100 09/28/17 Montelukast Na [Singulair -] 10 mg PO HS 09/28/17 Nebivolol HCl [Bystolic] 2.5 mg PO DAILY 09/28/17 Furosemide [Lasix -] 40 mg PO DAILY #30 tablet 10/03/17 Losartan Potassium [Cozaar -] 25 mg PO DAILY@1800 #30 tablet 10/03/17 Prednisone [Deltasone -] 30 mg PO DAILY #90 tablet 10/03/17 Warfarin Na [Coumadin -] 2.5 mg PO DAILY@1800 #30 tablet 10/03/17 Review of Systems GENERAL/CONSTITUTIONAL: No fever or chills. No weakness. HEAD, EYES, EARS, NOSE AND THROAT: +Sore throat. No change in vision. No ear pain or discharge. CARDIOVASCULAR: No chest pain or shortness of breath. RESPIRATORY: No cough, wheezing, or hemoptysis. GASTROINTESTINAL: +Nausea. +Vomiting. +Diarrhea. No constipation. GENITOURINARY: No dysuria, frequency, or change in urination. MUSCULOSKELETAL: No joint or muscle swelling or pain. No neck or back pain. SKIN: No rash NEUROLOGIC: No headache, vertigo, loss of consciousness, or change in strength/ sensation. ENDOCRINE: No increased thirst. No abnormal weight change. HEMATOLOGIC/LYMPHATIC: No anemia, easy bleeding, or history of blood clots. ALLERGIC/IMMUNOLOGIC: No hives or skin allergy. *Physical Exam Vital Signs Period Temp Pulse Resp BP Sys/Urrutia Pulse Ox Last 24 Hr 97.4 F-98.6 F 59-98 18-20 101-131/58-83 GENERAL: Awake, alert, and fully oriented, in no acute distress HEAD: No signs of trauma EYES: PERRLA, EOMI, sclera anicteric, conjunctiva clear ENT: Auricles normal inspection, hearing grossly normal, nares patent, oropharynx clear without exudates. Moist mucosa NECK: Normal ROM, supple, no lymphadenopathy, JVD, or masses LUNGS: +Diffuse wheezing bilaterally. +Rhonchi bilaterally at the bases. HEART: Regular rate and rhythm, normal S1 and S2, no murmurs, rubs or gallops ABDOMEN: Soft, nontender, normoactive bowel sounds.~ No guarding, no rebound.~ No masses EXTREMITIES: Normal range of motion, no edema.~ No clubbing or cyanosis. No cords, erythema, or tenderness NEUROLOGICAL: Cn intact, no slurred speech, strength grossly intact, sensory normal, gait slightly antalgic but no ataxia SKIN: Warm, Dry, normal turgor, no rashes or lesions noted. CBCD WBC 8.5 K/mm3 (4.0-10.0) D 11/01/17 10:50 RBC 4.21 M/mm3 (3.60-5.2) 11/01/17 10:50 Hgb 11.6 GM/dL (10.7-15.3) D 11/01/17 10:50 Hct 37.1 % (32.4-45.2) 11/01/17 10:50 MCV 88.3 fl (80-96) 11/01/17 10:50 MCHC 31.2 g/dl (32.0-36.0) L 11/01/17 10:50 RDW 17.5 % (11.6-15.6) H 11/01/17 10:50 Plt Count 246 K/MM3 (134-434) 11/01/17 10:50 MPV 9.0 fl (7.5-11.1) 11/01/17 10:50 CMP Sodium 138 mmol/L (136-145) 10/31/17 05:18 Potassium 3.9 mmol/L (3.5-5.1) 10/31/17 05:18 Chloride 101 mmol/L (98-107) 10/31/17 05:18 Carbon Dioxide 19 mmol/L (21-32) L 10/31/17 05:18 Anion Gap 18 (8-16) H 10/31/17 05:18 BUN 19 mg/dL (7-18) H 10/31/17 05:18 Creatinine 1.5 mg/dL (0.55-1.02) H 10/31/17 05:18 Creat Clearance w eGFR 33.76 (>60) 10/30/17 20:00 Calcium 8.5 mg/dL (8.5-10.1) 10/31/17 05:18 Total Bilirubin 0.4 mg/dL (0.2-1.0) D 10/30/17 20:00 AST 27 U/L (15-37) 10/30/17 20:00 ALT 13 U/L (12-78) 10/30/17 20:00 Alkaline Phosphatase 67 U/L (45-117) 10/30/17 20:00 Total Protein 5.5 g/dl (6.4-8.2) L 10/30/17 20:00 Albumin 2.6 g/dl (3.4-5.0) L 10/30/17 20:00 CT head 09/28 without acute changes Plan: 77 year old female, with a significant past medical history of atrial fibrillation, congestive heart failure, hypertension, hypothyroidism, asthma, COPD, osteoarthritis, and mitral insufficient s/p valve replacement, who presents to the emergency department with, sore throat for the past couple of days and vomiting and diarrhea. The patient reports approx. 3 episodes of vomiting and three episodes of diarrhea described as non bloody, non bilious. The patient reports she does not currently feel nauseous. The patient reports she has been eating/ drinking less for the past couple of days with her last meal last night. The patient completed a chest XR approx. 2 days ago and was diagnosed with left lower lobe pneumonia. I was consulted for altered mental status likely 2/2 infection/metabolic derangements but improving. CT head stable. Continue medical mgmt, optimize INR. Patient also with PNA and continue infectious mgmt. Mental status appears to be near baseline.
--- NOTE | 2017-11-01 14:16 | PN ---
Progress Note (short form) - Note Progress Note: Breathing feels a little better today. No CP (+) cough Intake & Output 10/29/17 10/30/17 10/31/17 11/01/17 23:59 23:59 23:59 23:59 Intake Total 10 900 Balance 10 900 Weight 180 lb 168 lb 0.6 oz 170 lb 3.2 oz Last Vital Signs Temp Pulse Resp BP Pulse Ox 98.6 F 59 L 18 116/68 97 11/01/17 09:00 11/01/17 10:11 11/01/17 09:00 11/01/17 09:00 10/30/17 16:07 Active Medications Albuterol/Ipratropium (Duoneb -) 1 amp NEB Q4H PRN PRN Reason: SHORTNESS OF BREATH Last Admin: 11/01/17 11:45 Dose: 1 amp Budesonide (Pulmicort 0.25 Mg Nebulizer -) 1 amp NEB RBID [facility] Last Admin: 11/01/17 10:12 Dose: 1 amp Diltiazem HCl (Cardizem Cd -) 360 mg PO DAILY [facility] Last Admin: 11/01/17 10:09 Dose: 360 mg Furosemide (Lasix -) 40 mg PO DAILY [facility] Last Admin: 11/01/17 10:09 Dose: 40 mg Sodium Chloride (Normal Saline -) 1,000 mls @ 150 mls/hr IV ASDIR [facility] Last Admin: 11/01/17 10:02 Dose: Not Given Losartan Potassium (Cozaar -) 25 mg PO DAILY@1800 [facility] Last Admin: 10/31/17 17:16 Dose: 25 mg Montelukast Sodium (Singulair -) 10 mg PO HS [facility] Last Admin: 10/31/17 21:50 Dose: 10 mg Prednisone (Deltasone -) 30 mg PO BID [facility] Last Admin: 11/01/17 10:09 Dose: 30 mg Constitutional: Yes: Well Nourished Eyes: Yes: Conjunctiva Clear HENT: Yes: Atraumatic, Normocephalic Neck: Yes: Supple Cardiovascular: Yes: Regular Rate and Rhythm Respiratory: Yes: Scattered wheeze / rhonchi Gastrointestinal: Yes: Normal Bowel Sounds, Soft. No: Tenderness ...Rectal Exam: Yes: Deferred Extremities: Yes: WNL. No: Erythema Edema: No Psychiatric: Yes: Alert Labs: Problem List - Problems (1) Altered mental status Code(s): R41.82 - ALTERED MENTAL STATUS, UNSPECIFIED (2) Asthma Code(s): J45.909 - UNSPECIFIED ASTHMA, UNCOMPLICATED Qualifiers: Asthma severity: mild persistent (3) Atrial fibrillation Code(s): I48.91 - UNSPECIFIED ATRIAL FIBRILLATION Qualifiers: Atrial fibrillation type: permanent Qualified Code(s): I48.2 - Chronic atrial fibrillation (4) COPD (chronic obstructive pulmonary disease) Code(s): J44.9 - CHRONIC OBSTRUCTIVE PULMONARY DISEASE, UNSPECIFIED (5) Confusion Code(s): R41.0 - DISORIENTATION, UNSPECIFIED (6) Cough Code(s): R05 - COUGH (7) H/O heart valve replacement with bioprosthetic valve Code(s): Z95.3 - PRESENCE OF XENOGENIC HEART VALVE (8) History of mitral valve replacement with bioprosthetic valve Code(s): Z95.3 - PRESENCE OF XENOGENIC HEART VALVE (9) Supratherapeutic INR Code(s): R79.1 - ABNORMAL COAGULATION PROFILE (10) Thyroid disease Code(s): E07.9 - DISORDER OF THYROID, UNSPECIFIED (11) Acute kidney injury Code(s): N17.9 - ACUTE KIDNEY FAILURE, UNSPECIFIED (12) Gastroenteritis Code(s): K52.9 - NONINFECTIVE GASTROENTERITIS AND COLITIS, UNSPECIFIED IMP ASTHMA/COPD GASTROENTERITIS DEHYDRATION CONFUSION LLL OPACITY CHRONIC AFIB S/P MVR SUPRA-THERAPEUTIC INR JOE PLAN INHALED BRONCHODILATORS O2 FLUIDS MONITOR INR MONITOR LYTES SHORT COURSE PO STEROIDS [facility]
[2017-11-01 15:24] LABS: ALBUMIN 2.8 g/dl (3.4-5.0); ALK PHOS 60 U/L (45-117); ANION GAP 14 (8-16); BILIRUBIN,TOTAL 0.3 mg/dL (0.2-1.0); BLOOD UREA NITROGEN 32 mg/dL (7-18); CALCIUM 8.2 mg/dL (8.5-10.1); CHLORIDE 104 mmol/L (98-107); CO2 22 mmol/L (21-32); CREATININE 1.6 mg/dL (0.55-1.02); GLUCOSE,RANDOM 192 mg/dL (74-106); MAGNESIUM 2.3 mg/dL (1.8-2.4); POTASSIUM 4.6 mmol/L (3.5-5.1); SGOT/AST 15 U/L (15-37); SGPT/ALT 12 U/L (12-78); SODIUM 140 mmol/L (136-145); TOT PROT 5.6 g/dl (6.4-8.2)
[2017-11-01] MEDS: LOSARTAN POTASSIUM 25 MG TABLET PO SCH ×2 (16:49→17:29)
[2017-11-01] MEDS: MONTELUKAST NA 10 MG TABLET PO SCH (21:53)
--- NOTE | 2017-11-01 23:18 | CONSULT ---
Consult Consult Specialty:: endocrine Referred by:: dr.iyad daugherty Reason for Consultation:: hyperthyroidism - History of Present Illness Chief Complaint: weakness cough History of Present Illness: 77 y/o F with PMH afib (on coumadin), CHF, HTN,hyperthyroidism, asthma, COPD, mitral insufficiency s/p valve replacement, who came to ED from [facility] with emesis and diarrhea for the past day. As per pt, she has had decreased PO intake , multiple episodes of NBNB emesis, as well as multiple loose BMs during this time. She denies NELSON, fever,or palpitations - Past Medical History Cardio/Vascular: Yes: AFIB (REFUSED ANTICOAGULATION IN PAST NOW ON COUMADIN), CAD, HTN, Hyperlipdemia, Mitral Insufficiency (s/p valve replacement) Pulmonary: Yes: Asthma, Bronchitis, COPD Gastrointestinal: Yes: GERD Musculoskeletal: Yes: Osteoarthritis Endocrine: Yes: Hyperthyroidism. No: Diabetes Mellitus Additional Medical History: LEFT POPLITEAL DVT - Past Surgical History Past Surgical History: Yes: Tubal Ligation (laparoscopic), Valve Replacement ( mechanical mitral 2 wks ago) - Alcohol/Substance Use Hx Alcohol Use: No History of Substance Use: reports: None - Smoking History Smoking history: Never smoked Have you smoked in the past 12 months: No Aproximately how many cigarettes per day: 0 - Social History Usual Living Arrangement: [facility]iary ADL: Independent History of Recent Travel: No Home Medications - Allergies Allergies/Adverse Reactions: Allergies Allergy/AdvReac Type Severity Reaction Status Date / Time ampicillin [Ampicillin] Allergy Severe Swelling Verified 10/30/17 16:07 codeine [Codeine] Allergy Swelling Verified 10/30/17 16:07 - Home Medications Home Medications: Ambulatory Orders Budesonide [Pulmicort 0.25 mg Nebulizer -] 1 amp NEB BID #60 amp 08/13/17 Digoxin [Lanoxin -] 0.125 mg PO DAILY tablet 08/13/17 Diltiazem Cd [Cardizem Cd -] 360 mg PO DAILY tab 08/13/17 Aspirin [ASA -] 81 mg PO DAILY 09/28/17 Furosemide [Lasix -] 40 mg PO DAILY 09/28/17 Metformin HCl [Glucophage -] 500 mg PO BID@1000,2100 09/28/17 Montelukast Na [Singulair -] 10 mg PO HS 09/28/17 Nebivolol HCl [Bystolic] 2.5 mg PO DAILY 09/28/17 Furosemide [Lasix -] 40 mg PO DAILY #30 tablet 10/03/17 Losartan Potassium [Cozaar -] 25 mg PO DAILY@1800 #30 tablet 10/03/17 Prednisone [Deltasone -] 30 mg PO DAILY #90 tablet 10/03/17 Warfarin Na [Coumadin -] 2.5 mg PO DAILY@1800 #30 tablet 10/03/17 Family Disease History - Family Disease History Family Disease History: Diabetes: Father (HTN) Review of Systems - Review of Systems Constitutional: reports: Lethargy, Weakness Eyes: reports: No Symptoms HENT: reports: Throat Pain Neck: reports: Decreased ROM Cardiovascular: reports: Shortness of Breath Respiratory: reports: Exercise Intolerance, SOB on Exertion Gastrointestinal: reports: Bloating Genitourinary: reports: No Symptoms Breasts: reports: No Symptoms Reported Musculoskeletal: reports: Muscle Cramps, Muscle Weakness Integumentary: reports: No Symptoms Neurological: reports: Numbness, Unsteady Gait Endocrine: reports: Excessive Sweating Physical Exam Vital Signs: Vital Signs Temperature 98.2 F 11/01/17 17:00 Pulse Rate 80 11/01/17 17:00 Respiratory Rate 18 11/01/17 17:00 Blood Pressure 130/80 11/01/17 17:00 O2 Sat by Pulse Oximetry (%) 97 10/30/17 16:07 Constitutional: Yes: Anxious Eyes: Yes: EOM Intact HENT: Yes: Normocephalic Neck: Yes: Trachea Midline, Thyromegaly Cardiovascular: Yes: Regular Rate and Rhythm Respiratory: Yes: Tachypnea Gastrointestinal: Yes: Abdomen, Obese, Hyperactive Bowel Sounds ...Rectal Exam: Yes: Deferred Renal/: Yes: WNL Musculoskeletal: Yes: Back Pain, Joint Stiffness, Joint Swelling, Muscle Weakness Extremities: Yes: WNL Edema: No Neurological: Yes: Alert, Weakness Labs: CBC, BMP 11/01/17 10:50 11/01/17 10:50 Problem List - Problems (1) Thyrotoxicosis with diffuse goiter and without thyroid storm Code(s): E05.00 - THYROTOXICOSIS W DIFFUSE GOITER W/O THYROTOXIC CRISIS Assessment/Plan Current Active Problems Acute kidney injury (Acute) Allergy to ampicillin (Acute) COPD exacerbation (Acute) Gastroenteritis (Acute) Hypomagnesemia (Acute) Nausea & vomiting (Acute) Pneumonia (Acute) hyperthyroidism 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 Abnormal Lab Results 11/01/17 11/01/17 11/01/17 06:00 10:50 10:50 MCHC 31.2 L RDW 17.5 H PT with INR 96.70 H INR 8.56 H* BUN 32 H Creatinine 1.6 H Random Glucose 192 H Calcium 8.2 L Total Protein 5.6 L Albumin 2.8 L Laboratory Results - last 24 hr 11/01/17 11/01/17 11/01/17 06:00 10:34 10:50 WBC 8.5 D RBC 4.21 Hgb 11.6 D Hct 37.1 MCV 88.3 MCH 27.6 MCHC 31.2 L RDW 17.5 H Plt Count 246 MPV 9.0 Neutrophils % 79.5 Lymphocytes % 11.2 D Monocytes % 9.0 D Eosinophils % 0.0 D Basophils % 0.3 PT with INR 96.70 H INR 8.56 H* Sodium Potassium Chloride Carbon Dioxide Anion Gap BUN Creatinine Creat Clearance w eGFR Random Glucose Calcium Magnesium Total Bilirubin AST ALT Alkaline Phosphatase Total Protein Albumin Digoxin 1.8211 11/01/17 10:50 WBC RBC Hgb Hct MCV MCH MCHC RDW Plt Count MPV Neutrophils % Lymphocytes % Monocytes % Eosinophils % Basophils % PT with INR INR Sodium 140 Potassium 4.6 Chloride 104 Carbon Dioxide 22 Anion Gap 14 BUN 32 H Creatinine 1.6 H Creat Clearance w eGFR 31.34 Random Glucose 192 H Calcium 8.2 L Magnesium 2.3 Total Bilirubin 0.3 D AST 15 ALT 12 Alkaline Phosphatase 60 Total Protein 5.6 L Albumin 2.8 L Digoxin plan: ck tsh free t4 bgm qid novolog insulin dose scale ck hba1c
--- NOTE | 2017-11-02 01:06 | PN ---
Progress Note, Physician Chief Complaint: Coumadin toxicity - Current Medication List Current Medications: Active Medications Albuterol/Ipratropium (Duoneb -) 1 amp NEB Q4H PRN PRN Reason: SHORTNESS OF BREATH Last Admin: 11/01/17 11:45 Dose: 1 amp Budesonide (Pulmicort 0.25 Mg Nebulizer -) 1 amp NEB RBID [facility] Last Admin: 11/01/17 20:00 Dose: 1 amp Diltiazem HCl (Cardizem Cd -) 360 mg PO DAILY [facility] Last Admin: 11/01/17 10:09 Dose: 360 mg Furosemide (Lasix -) 40 mg PO DAILY [facility] Last Admin: 11/01/17 10:09 Dose: 40 mg Sodium Chloride (Normal Saline -) 1,000 mls @ 150 mls/hr IV ASDIR [facility] Last Admin: 11/01/17 10:02 Dose: Not Given Insulin Aspart (Novolog Vial Sliding Scale -) 1 vial SQ TIDAC [facility] PRN Reason: Protocol Losartan Potassium (Cozaar -) 25 mg PO DAILY@1800 [facility] Last Admin: 11/01/17 17:29 Dose: Not Given Montelukast Sodium (Singulair -) 10 mg PO HS [facility] Last Admin: 11/01/17 21:53 Dose: 10 mg Prednisone (Deltasone -) 30 mg PO BID [facility] Last Admin: 11/01/17 21:53 Dose: 30 mg - Objective Vital Signs: Vital Signs Temperature 97.3 F L 11/01/17 20:20 Pulse Rate 87 11/01/17 20:20 Respiratory Rate 18 11/01/17 20:20 Blood Pressure 129/72 11/01/17 20:20 O2 Sat by Pulse Oximetry (%) 97 10/30/17 16:07 Constitutional: Yes: Well Nourished, No Distress, Calm Cardiovascular: Yes: Pulse Irregular Respiratory: Yes: Regular Musculoskeletal: Yes: WNL Extremities: Yes: WNL Edema: No Peripheral Pulses WNL: Yes Neurological: Yes: Alert, Oriented Psychiatric: Yes: Alert, Oriented Labs: CBC, BMP 11/01/17 10:50 11/01/17 10:50 INR, PTT INR 8.56 (0.82-1.09) H* 11/01/17 06:00 Problem List - Problems (1) Atrial fibrillation Assessment/Plan: chronic -warfarin on hold for now for elevated INR -on tele -seen by cardiology Code(s): I48.91 - UNSPECIFIED ATRIAL FIBRILLATION Qualifiers: Atrial fibrillation type: permanent Qualified Code(s): I48.2 - Chronic atrial fibrillation (2) COPD exacerbation Assessment/Plan: -seen by pulmonary -nebs -nasal o2 prn -po steroids Code(s): J44.1 - CHRONIC OBSTRUCTIVE PULMONARY DISEASE W (ACUTE) EXACERBATION (3) Supratherapeutic INR Assessment/Plan: hold Warfarin -repeat INR in AM Code(s): R79.1 - ABNORMAL COAGULATION PROFILE (4) Gastroenteritis Assessment/Plan: -IVF Code(s): K52.9 - NONINFECTIVE GASTROENTERITIS AND COLITIS, UNSPECIFIED (5) Confusion Assessment/Plan: -seen by neurology -CT head Code(s): R41.0 - DISORIENTATION, UNSPECIFIED (6) H/O heart valve replacement with bioprosthetic valve Assessment/Plan: -warfarin on hold for now for elevated INR -on tele -seen by cardiology Code(s): Z95.3 - PRESENCE OF XENOGENIC HEART VALVE Assessment/Plan see problem list
[2017-11-02] MEDS: SODIUM CHLORIDE 1,000 ML IV SCH (02:05)
[2017-11-02] MEDS: INSULIN SLIDING SCALE (NOVOLOG) 1 VIAL SQ SCH ×3 (06:48→17:00)
[2017-11-02] MEDS: BUDESONIDE 0.25 MG/2ML INH SUSP VIAL NEB SCH ×2 (08:48→20:56)
[2017-11-02 09:35] LABS: PROTHROMBIN TIME (PATIENT) 48.6 SEC (9.98-11.88)
[2017-11-02] MEDS: predniSONE 10 MG TABLET (UD) PO SCH ×2 (09:38→22:13)
[2017-11-02] MEDS: FUROSEMIDE 40 MG TABLET (FP) PO SCH (09:38)
[2017-11-02 10:18] LABS: INR 4.3 (0.82-1.09)
--- NOTE | 2017-11-02 12:47 | EKG ---
Test Reason : Blood Pressure : / mmHG Vent. Rate : 059 BPM Atrial Rate : 084 BPM P-R Int : 000 ms QRS Dur : 094 ms QT Int : 344 ms P-R-T Axes : 000 -31 010 degrees QTc Int : 340 ms ATRIAL FIBRILLATION LEFT AXIS DEVIATION ABNORMAL ECG WHEN COMPARED WITH ECG OF 30-OCT-2017 19:33, NO SIGNIFICANT CHANGE WAS FOUND Confirmed by Andrews Jensen ([id number]) on 11/02/2017 12:47:06 PM Referred By: Joe FRANCIS Confirmed By:Andrews Jensen
--- NOTE | 2017-11-02 12:58 | PN ---
Progress Note (short form) - Note Progress Note: Neurology History of Present Illness The patient is a 77 year old female, with a significant past medical history of atrial fibrillation, congestive heart failure, hypertension, hypothyroidism, asthma, COPD, osteoarthritis, and mitral insufficient s/p valve replacement, who presents to the emergency department with, sore throat for the past couple of days and vomiting and diarrhea. TThe patient completed a chest XR approx. 2 days ago and was diagnosed with left lower lobe pneumonia. I was consulted for altered mental status likely 2/2 infection/metabolic derangements but improving. Mental status appears to be near baseline now and is ambulating. No new neurologic events overnight. Sleepy this AM but conversive and knows she is in the hospital. Active Medications Albuterol/Ipratropium (Duoneb -) 1 amp NEB Q4H PRN PRN Reason: SHORTNESS OF BREATH Last Admin: 11/01/17 11:45 Dose: 1 amp Budesonide (Pulmicort 0.25 Mg Nebulizer -) 1 amp NEB RBID [facility] Last Admin: 11/02/17 08:48 Dose: 1 amp Diltiazem HCl (Cardizem Cd -) 360 mg PO DAILY [facility] Last Admin: 11/02/17 09:38 Dose: 360 mg Furosemide (Lasix -) 40 mg PO DAILY [facility] Last Admin: 11/02/17 09:38 Dose: 40 mg Insulin Aspart (Novolog Vial Sliding Scale -) 1 vial SQ TIDAC [facility] PRN Reason: Protocol Last Admin: 11/02/17 11:13 Dose: 2 units Losartan Potassium (Cozaar -) 25 mg PO DAILY@1800 [facility] Last Admin: 11/01/17 17:29 Dose: Not Given Montelukast Sodium (Singulair -) 10 mg PO HS [facility] Last Admin: 11/01/17 21:53 Dose: 10 mg Prednisone (Deltasone -) 30 mg PO BID [facility] Last Admin: 11/02/17 09:38 Dose: 30 mg *Physical Exam Vital Signs Temperature 97.3 F L 11/02/17 07:36 Pulse Rate 79 11/02/17 07:36 Respiratory Rate 18 11/02/17 07:39 Blood Pressure 114/62 11/02/17 07:36 O2 Sat by Pulse Oximetry (%) 97 10/30/17 16:07 GENERAL: Awake, alert, and fully oriented, in no acute distress HEAD: No signs of trauma EYES: PERRLA, EOMI, sclera anicteric, conjunctiva clear ENT: Auricles normal inspection, hearing grossly normal, nares patent, oropharynx clear without exudates. Moist mucosa NECK: Normal ROM, supple, no lymphadenopathy, JVD, or masses LUNGS: +Diffuse wheezing bilaterally. +Rhonchi bilaterally at the bases. HEART: Regular rate and rhythm, normal S1 and S2, no murmurs, rubs or gallops ABDOMEN: Soft, nontender, normoactive bowel sounds.~ No guarding, no rebound.~ No masses EXTREMITIES: Normal range of motion, no edema.~ No clubbing or cyanosis. No cords, erythema, or tenderness NEUROLOGICAL: Cn intact, no slurred speech, strength grossly intact, sensory normal, gait slightly antalgic but no ataxia SKIN: Warm, Dry, normal turgor, no rashes or lesions noted. CBCD WBC 8.5 K/mm3 (4.0-10.0) D 11/01/17 10:50 RBC 4.21 M/mm3 (3.60-5.2) 11/01/17 10:50 Hgb 11.6 GM/dL (10.7-15.3) D 11/01/17 10:50 Hct 37.1 % (32.4-45.2) 11/01/17 10:50 MCV 88.3 fl (80-96) 11/01/17 10:50 MCHC 31.2 g/dl (32.0-36.0) L 11/01/17 10:50 RDW 17.5 % (11.6-15.6) H 11/01/17 10:50 Plt Count 246 K/MM3 (134-434) 11/01/17 10:50 MPV 9.0 fl (7.5-11.1) 11/01/17 10:50 CMP Sodium 140 mmol/L (136-145) 11/01/17 10:50 Potassium 4.6 mmol/L (3.5-5.1) 11/01/17 10:50 Chloride 104 mmol/L (98-107) 11/01/17 10:50 Carbon Dioxide 22 mmol/L (21-32) 11/01/17 10:50 Anion Gap 14 (8-16) 11/01/17 10:50 BUN 32 mg/dL (7-18) H 11/01/17 10:50 Creatinine 1.6 mg/dL (0.55-1.02) H 11/01/17 10:50 Creat Clearance w eGFR 31.34 (>60) 11/01/17 10:50 Calcium 8.2 mg/dL (8.5-10.1) L 11/01/17 10:50 Total Bilirubin 0.3 mg/dL (0.2-1.0) D 11/01/17 10:50 AST 15 U/L (15-37) 11/01/17 10:50 ALT 12 U/L (12-78) 11/01/17 10:50 Alkaline Phosphatase 60 U/L (45-117) 11/01/17 10:50 Total Protein 5.6 g/dl (6.4-8.2) L 11/01/17 10:50 Albumin 2.8 g/dl (3.4-5.0) L 11/01/17 10:50 CT head 09/28 without acute changes Plan: 77 year old female, with a significant past medical history of atrial fibrillation, congestive heart failure, hypertension, hypothyroidism, asthma, COPD, osteoarthritis, and mitral insufficient s/p valve replacement, who presents to the emergency department with, sore throat for the past couple of days and vomiting and diarrhea. The patient reports approx. 3 episodes of vomiting and three episodes of diarrhea described as non bloody, non bilious. The patient reports she does not currently feel nauseous. The patient reports she has been eating/ drinking less for the past couple of days with her last meal last night. The patient completed a chest XR approx. 2 days ago and was diagnosed with left lower lobe pneumonia. I was consulted for altered mental status likely 2/2 infection/metabolic derangements but improving. CT head stable. Continue medical mgmt, optimize INR. Patient also with PNA and continue infectious mgmt. Mental status appears to be near baseline. Continue medical mgmt and optimization. Neurologically improving.
--- NOTE | 2017-11-02 14:30 | PN ---
Progress Note (short form) - Note Progress Note: Breathing feels a little better today. Still mildly confused but improving. No CP Some mild cough. Intake & Output 10/30/17 10/31/17 11/01/17 11/02/17 23:59 23:59 23:59 23:59 Intake Total 10 900 840 400 Balance 10 900 840 400 Weight 180 lb 168 lb 0.6 oz 170 lb 3.2 oz 169 lb 8 oz Last Vital Signs Temp Pulse Resp BP Pulse Ox 97.3 F L 79 18 114/62 97 11/02/17 07:36 11/02/17 07:36 11/02/17 07:39 11/02/17 07:36 10/30/17 16:07 Active Medications Albuterol/Ipratropium (Duoneb -) 1 amp NEB Q4H PRN PRN Reason: SHORTNESS OF BREATH Last Admin: 11/01/17 11:45 Dose: 1 amp Budesonide (Pulmicort 0.25 Mg Nebulizer -) 1 amp NEB RBID [facility] Last Admin: 11/02/17 08:48 Dose: 1 amp Diltiazem HCl (Cardizem Cd -) 360 mg PO DAILY [facility] Last Admin: 11/02/17 09:38 Dose: 360 mg Furosemide (Lasix -) 40 mg PO DAILY [facility] Last Admin: 11/02/17 09:38 Dose: 40 mg Insulin Aspart (Novolog Vial Sliding Scale -) 1 vial SQ TIDAC [facility] PRN Reason: Protocol Last Admin: 11/02/17 11:13 Dose: 2 units Losartan Potassium (Cozaar -) 25 mg PO DAILY@1800 [facility] Last Admin: 11/01/17 17:29 Dose: Not Given Montelukast Sodium (Singulair -) 10 mg PO HS [facility] Last Admin: 11/01/17 21:53 Dose: 10 mg Prednisone (Deltasone -) 30 mg PO BID [facility] Last Admin: 11/02/17 09:38 Dose: 30 mg Constitutional: Yes: NAD Eyes: Yes: Conjunctiva Clear HENT: Yes: Atraumatic, Normocephalic Neck: Yes: Supple Cardiovascular: Yes: Regular Rate and Rhythm Respiratory: Yes: Scattered rhonchi, no wheeze heard today Gastrointestinal: Yes: Normal Bowel Sounds, Soft. No: Tenderness ...Rectal Exam: Yes: Deferred Extremities: Yes: WNL. No: Erythema Edema: No Psychiatric: Yes: Alert Labs: Laboratory Results - last 24 hr 11/01/17 11/02/17 11/02/17 10:50 05:36 05:36 PT with INR INR Sodium 140 Potassium 4.6 Chloride 104 Carbon Dioxide 22 Anion Gap 14 BUN 32 H Creatinine 1.6 H Creat Clearance w eGFR 31.34 POC Glucometer Random Glucose 192 H Hemoglobin A1c % 6.7 H Calcium 8.2 L Magnesium 2.3 Total Bilirubin 0.3 D AST 15 ALT 12 Alkaline Phosphatase 60 Total Protein 5.6 L Albumin 2.8 L TSH 0.05 L Free T4 1.43 11/02/17 11/02/17 11/02/17 05:36 05:55 10:57 PT with INR 48.60 H INR 4.30 H* D Sodium Potassium Chloride Carbon Dioxide Anion Gap BUN Creatinine Creat Clearance w eGFR POC Glucometer 202 217 Random Glucose Hemoglobin A1c % Calcium Magnesium Total Bilirubin AST ALT Alkaline Phosphatase Total Protein Albumin TSH Free T4 Problem List - Problems (1) Altered mental status Code(s): R41.82 - ALTERED MENTAL STATUS, UNSPECIFIED (2) Asthma Code(s): J45.909 - UNSPECIFIED ASTHMA, UNCOMPLICATED Qualifiers: Asthma severity: mild persistent (3) Atrial fibrillation Code(s): I48.91 - UNSPECIFIED ATRIAL FIBRILLATION Qualifiers: Atrial fibrillation type: permanent Qualified Code(s): I48.2 - Chronic atrial fibrillation (4) COPD (chronic obstructive pulmonary disease) Code(s): J44.9 - CHRONIC OBSTRUCTIVE PULMONARY DISEASE, UNSPECIFIED (5) Confusion Code(s): R41.0 - DISORIENTATION, UNSPECIFIED (6) Cough Code(s): R05 - COUGH (7) H/O heart valve replacement with bioprosthetic valve Code(s): Z95.3 - PRESENCE OF XENOGENIC HEART VALVE (8) History of mitral valve replacement with bioprosthetic valve Code(s): Z95.3 - PRESENCE OF XENOGENIC HEART VALVE (9) Supratherapeutic INR Code(s): R79.1 - ABNORMAL COAGULATION PROFILE (10) Thyroid disease Code(s): E07.9 - DISORDER OF THYROID, UNSPECIFIED (11) Acute kidney injury Code(s): N17.9 - ACUTE KIDNEY FAILURE, UNSPECIFIED (12) Gastroenteritis Code(s): K52.9 - NONINFECTIVE GASTROENTERITIS AND COLITIS, UNSPECIFIED IMP ASTHMA/COPD GASTROENTERITIS DEHYDRATION CONFUSION LLL OPACITY CHRONIC AFIB S/P MVR SUPRA-THERAPEUTIC INR JOE PLAN INHALED BRONCHODILATORS O2 MONITOR INR MONITOR LYTES SHORT COURSE PO STEROIDS [facility]
[2017-11-02] MEDS: LOSARTAN POTASSIUM 25 MG TABLET PO SCH (17:00)
--- NOTE | 2017-11-02 17:53 | PN ---
Progress Note, Physician Chief Complaint: Pt sitting up in bed; no chest pain; pleasant; still confused as to why she is at hospital. History of Present Illness: The patient is a 77 year old black female, accompanied by daughter, with a significant past medical history of atrial fibrillation, diastolic congestive heart failure with severe pulmonary hypertension; systemic hypertension, hypothyroidism, asthma, COPD, osteoarthritis, and mitral insufficiency s/p bioprosthetic valve replacement, who presents to the emergency department with, sore throat for the past couple of days and vomiting and diarrhea beginning last night. The patient reports approx. 3 episodes of vomiting and three episodes of diarrhea described as non bloody, non bilious. The patient reports she does not currently feel nauseous. The patient reports she has been eating/ drinking less for the past couple of days with her last meal last night. The patient reports she received a chest XR approx. 2 days ago and was diagnosed with left lower lobe pneumonia. She denies recent fevers, chills, headache or dizziness. She denies recent dysuria, frequency, urgency or hematuria. She denies recent chest pain or shortness of breath. Allergies: codeine, ampicillin Past surgical history: Open heart surgery Primary Care Physician: Dr. Joey Hernandez Office Rep: Dr. Hahn - Current Medication List Current Medications: Active Medications Albuterol/Ipratropium (Duoneb -) 1 amp NEB Q4H PRN PRN Reason: SHORTNESS OF BREATH Last Admin: 11/01/17 11:45 Dose: 1 amp Budesonide (Pulmicort 0.25 Mg Nebulizer -) 1 amp NEB RBID [facility] Last Admin: 11/02/17 08:48 Dose: 1 amp Diltiazem HCl (Cardizem Cd -) 360 mg PO DAILY [facility] Last Admin: 11/02/17 09:38 Dose: 360 mg Furosemide (Lasix -) 40 mg PO DAILY [facility] Last Admin: 11/02/17 09:38 Dose: 40 mg Insulin Aspart (Novolog Vial Sliding Scale -) 1 vial SQ TIDAC [facility] PRN Reason: Protocol Last Admin: 11/02/17 17:00 Dose: 5 units Losartan Potassium (Cozaar -) 25 mg PO DAILY@1800 [facility] Last Admin: 11/02/17 17:00 Dose: 25 mg Montelukast Sodium (Singulair -) 10 mg PO HS [facility] Last Admin: 11/01/17 21:53 Dose: 10 mg Prednisone (Deltasone -) 30 mg PO BID [facility] Last Admin: 11/02/17 09:38 Dose: 30 mg - Objective Vital Signs: Vital Signs Temperature 97.3 F L 11/02/17 07:36 Pulse Rate 79 11/02/17 07:36 Respiratory Rate 18 11/02/17 07:39 Blood Pressure 114/62 11/02/17 07:36 O2 Sat by Pulse Oximetry (%) 97 10/30/17 16:07 Constitutional: Yes: Well Nourished, Calm Eyes: Yes: WNL HENT: Yes: WNL Neck: Yes: WNL Cardiovascular: Yes: S1 (varies in intensity), S2 Respiratory: Yes: Regular Gastrointestinal: Yes: Soft ...Rectal Exam: Yes: Deferred Genitourinary: No: Anuria Breast(s): Yes: WNL Musculoskeletal: Yes: Muscle Weakness Extremities: Yes: Cool Edema: No Peripheral Pulses WNL: Yes Neurological: Yes: Confusion Psychiatric: Yes: Other Labs: CBC, BMP 11/01/17 10:50 11/01/17 10:50 INR, PTT INR 4.30 (0.82-1.09) H* D 11/02/17 05:36 Abnormal Lab Results 11/02/17 11/02/17 11/02/17 05:36 05:36 05:36 PT with INR 48.60 H INR 4.30 H* D Hemoglobin A1c % 6.7 H TSH 0.05 L Problem List - Problems (1) COPD exacerbation Code(s): J44.1 - CHRONIC OBSTRUCTIVE PULMONARY DISEASE W (ACUTE) EXACERBATION (2) Nausea & vomiting Code(s): R11.2 - NAUSEA WITH VOMITING, UNSPECIFIED (3) Acute on chronic diastolic (congestive) heart failure Assessment/Plan: on diltiazem, losartan, and furosemide. F/u BUN/Cr, electrolytes, Is and Os, and daily weight. Code(s): I50.33 - ACUTE ON CHRONIC DIASTOLIC (CONGESTIVE) HEART FAILURE (4) Altered mental status Code(s): R41.82 - ALTERED MENTAL STATUS, UNSPECIFIED (5) Anemia Code(s): D64.9 - ANEMIA, UNSPECIFIED Qualifiers: Anemia type: other cause Other causes of anemia: acute posthemorrhagic Qualified Code(s): D62 - Acute posthemorrhagic anemia (6) History of mitral valve replacement with bioprosthetic valve Assessment/Plan: WBC WNL; afebrile. Code(s): Z95.3 - PRESENCE OF XENOGENIC HEART VALVE (7) Hypertension Code(s): I10 - ESSENTIAL (PRIMARY) HYPERTENSION Qualifiers: Hypertension type: essential hypertension Qualified Code(s): I10 - Essential (primary) hypertension (8) Atrial fibrillation Assessment/Plan: Telemetry: AF, with periods of slow VR, though less since the following discontinuations: Discontinued Bystolic (bilateral wheezing; hx asthma; normal LVEF; AF with periods of slow VR). Discontinued digoxin presently (level 1.8), and would restart only if rapid VR. Continue diltiazem CD 360 mg daily; f/u HR and BP. Code(s): I48.91 - UNSPECIFIED ATRIAL FIBRILLATION Qualifiers: Atrial fibrillation type: permanent Qualified Code(s): I48.2 - Chronic atrial fibrillation (9) Hypomagnesemia Assessment/Plan: Keep Mg at 2-2.3. K and Po4 are WNL. Code(s): E83.42 - HYPOMAGNESEMIA (10) Supratherapeutic INR Assessment/Plan: after vit K, INR 11-->8-->4.3. F/u Hb (stable as of yesterday); check stood quaiac. Code(s): R79.1 - ABNORMAL COAGULATION PROFILE
--- NOTE | 2017-11-02 20:17 | PN ---
Progress Note, Physician Chief Complaint: Coumadin toxicity History of Present Illness: NAD, SOB improved INR gradually trending down seen by cardiology tele monitoring - Current Medication List Current Medications: Active Medications Albuterol/Ipratropium (Duoneb -) 1 amp NEB Q4H PRN PRN Reason: SHORTNESS OF BREATH Last Admin: 11/01/17 11:45 Dose: 1 amp Budesonide (Pulmicort 0.25 Mg Nebulizer -) 1 amp NEB RBID [facility] Last Admin: 11/02/17 08:48 Dose: 1 amp Diltiazem HCl (Cardizem Cd -) 360 mg PO DAILY [facility] Last Admin: 11/02/17 09:38 Dose: 360 mg Furosemide (Lasix -) 40 mg PO DAILY [facility] Last Admin: 11/02/17 09:38 Dose: 40 mg Insulin Aspart (Novolog Vial Sliding Scale -) 1 vial SQ TIDAC [facility] PRN Reason: Protocol Last Admin: 11/02/17 17:00 Dose: 5 units Losartan Potassium (Cozaar -) 25 mg PO DAILY@1800 [facility] Last Admin: 11/02/17 17:00 Dose: 25 mg Montelukast Sodium (Singulair -) 10 mg PO HS [facility] Last Admin: 11/01/17 21:53 Dose: 10 mg Prednisone (Deltasone -) 30 mg PO BID [facility] Last Admin: 11/02/17 09:38 Dose: 30 mg - Objective Vital Signs: Vital Signs Temperature 98.8 F 11/02/17 17:00 Pulse Rate 70 11/02/17 17:00 Respiratory Rate 18 11/02/17 17:00 Blood Pressure 105/61 11/02/17 17:00 O2 Sat by Pulse Oximetry (%) 97 10/30/17 16:07 Constitutional: Yes: Well Nourished, No Distress, Calm Cardiovascular: Yes: Pulse Irregular Respiratory: Yes: Regular Gastrointestinal: Yes: Normal Bowel Sounds, Soft Musculoskeletal: Yes: WNL Extremities: Yes: WNL Edema: No Peripheral Pulses WNL: Yes Neurological: Yes: Alert, Oriented Psychiatric: Yes: Alert, Oriented Labs: CBC, BMP 11/01/17 10:50 11/01/17 10:50 INR, PTT INR 4.30 (0.82-1.09) H* D 11/02/17 05:36 Problem List - Problems (1) Atrial fibrillation Assessment/Plan: chronic -warfarin on hold for now for elevated INR -on tele -seen by cardiology Code(s): I48.91 - UNSPECIFIED ATRIAL FIBRILLATION Qualifiers: Atrial fibrillation type: permanent Qualified Code(s): I48.2 - Chronic atrial fibrillation (2) COPD exacerbation Assessment/Plan: -seen by pulmonary -nebs -nasal o2 prn -po steroids -breathing improved Code(s): J44.1 - CHRONIC OBSTRUCTIVE PULMONARY DISEASE W (ACUTE) EXACERBATION (3) Supratherapeutic INR Assessment/Plan: hold Warfarin -repeat INR in AM Code(s): R79.1 - ABNORMAL COAGULATION PROFILE (4) Gastroenteritis Assessment/Plan: -IVF -No abdominal symptoms at this time Code(s): K52.9 - NONINFECTIVE GASTROENTERITIS AND COLITIS, UNSPECIFIED (5) Confusion Assessment/Plan: -seen by neurology -CT head unremarkable -AxO x2 Code(s): R41.0 - DISORIENTATION, UNSPECIFIED (6) H/O heart valve replacement with bioprosthetic valve Assessment/Plan: -warfarin on hold for now for elevated INR -on tele -seen by cardiology Code(s): Z95.3 - PRESENCE OF XENOGENIC HEART VALVE Assessment/Plan see problem list Physical therapy sister at bedside
[2017-11-02] MEDS ORDERED: PT OWN MED DRAWER 7, Y5N ONE (20:49)
[2017-11-02] MEDS: MONTELUKAST NA 10 MG TABLET PO SCH (22:13)
--- NOTE | 2017-11-03 00:57 | PN ---
Progress Note, Physician Chief Complaint: shortness of breath,still with cough History of Present Illness: copd,chf,sp valve replacement,afib,ashd,respiratory difficulty improving on anticoagulation,has anxiety and restless episodes,denies cp or weight loss - Current Medication List Current Medications: Active Medications Albuterol/Ipratropium (Duoneb -) 1 amp NEB Q4H PRN PRN Reason: SHORTNESS OF BREATH Last Admin: 11/01/17 11:45 Dose: 1 amp Budesonide (Pulmicort 0.25 Mg Nebulizer -) 1 amp NEB RBID [facility] Last Admin: 11/02/17 20:56 Dose: 1 amp Diltiazem HCl (Cardizem Cd -) 360 mg PO DAILY [facility] Last Admin: 11/02/17 09:38 Dose: 360 mg Furosemide (Lasix -) 40 mg PO DAILY [facility] Last Admin: 11/02/17 09:38 Dose: 40 mg Insulin Aspart (Novolog Vial Sliding Scale -) 1 vial SQ TIDAC [facility] PRN Reason: Protocol Last Admin: 11/02/17 17:00 Dose: 5 units Losartan Potassium (Cozaar -) 25 mg PO DAILY@1800 [facility] Last Admin: 11/02/17 17:00 Dose: 25 mg Methimazole (Tapazole -) 5 mg PO AM [facility] Montelukast Sodium (Singulair -) 10 mg PO HS [facility] Last Admin: 11/02/17 22:13 Dose: 10 mg Prednisone (Deltasone -) 30 mg PO BID [facility] Last Admin: 11/02/17 22:13 Dose: 30 mg - Objective Vital Signs: Vital Signs Temperature 98.8 F 11/02/17 17:00 Pulse Rate 70 11/02/17 17:00 Respiratory Rate 18 11/02/17 17:00 Blood Pressure 105/61 11/02/17 17:00 O2 Sat by Pulse Oximetry (%) 97 10/30/17 16:07 Constitutional: Yes: Well Nourished, Anxious Eyes: Yes: EOM Intact HENT: Yes: Normocephalic Neck: Yes: Thyromegaly Cardiovascular: Yes: Tachycardia, Murmur Respiratory: Yes: Rhonchi, Tachypnea, Wheezes Gastrointestinal: Yes: Normal Bowel Sounds ...Rectal Exam: Yes: Deferred Genitourinary: Yes: WNL Breast(s): Yes: WNL Musculoskeletal: Yes: WNL Extremities: Yes: WNL Edema: No Neurological: Yes: Alert, Oriented Labs: CBC, BMP 11/01/17 10:50 11/01/17 10:50 INR, PTT INR 4.30 (0.82-1.09) H* D 11/02/17 05:36 Problem List - Problems (1) Thyrotoxicosis with diffuse goiter and without thyroid storm Code(s): E05.00 - THYROTOXICOSIS W DIFFUSE GOITER W/O THYROTOXIC CRISIS (2) Allergy to ampicillin Code(s): Z88.0 - ALLERGY STATUS TO PENICILLIN (3) COPD exacerbation Code(s): J44.1 - CHRONIC OBSTRUCTIVE PULMONARY DISEASE W (ACUTE) EXACERBATION (4) Pneumonia Code(s): J18.9 - PNEUMONIA, UNSPECIFIED ORGANISM Assessment/Plan Current Active Problems Acute kidney injury (Acute) Allergy to ampicillin (Acute) COPD exacerbation (Acute) Gastroenteritis (Acute) Hypomagnesemia (Acute) Nausea & vomiting (Acute) Pneumonia (Acute) Thyrotoxicosis with diffuse goiter and without thyroid storm (Acute) Laboratory Results - last 24 hr 11/02/17 11/02/17 11/02/17 05:36 05:36 05:36 PT with INR 48.60 H INR 4.30 H* D POC Glucometer Hemoglobin A1c % 6.7 H TSH 0.05 L Free T4 1.43 11/02/17 11/02/17 11/02/17 05:55 10:57 16:47 PT with INR INR POC Glucometer 202 217 316 Hemoglobin A1c % TSH Free T4 plan: methimazole 5mg daily continue bgm tid coverage ordered
[2017-11-03] MEDS: INSULIN SLIDING SCALE (NOVOLOG) 1 VIAL SQ SCH ×3 (06:25→16:35)
[2017-11-03] MEDS: METHIMAZOLE 5 MG TABLET (FP) PO SCH (06:26)
[2017-11-03 07:33] LABS: PROTHROMBIN TIME (PATIENT) 33.9 SEC (9.98-11.88)
[2017-11-03] MEDS: BUDESONIDE 0.25 MG/2ML INH SUSP VIAL NEB SCH ×2 (07:45→22:00)
[2017-11-03] MEDS ORDERED: PT OWN MED DRAWER 7, Y5N ONE (07:45)
[2017-11-03] MEDS: FUROSEMIDE 40 MG TABLET (FP) PO SCH (09:16)
[2017-11-03] MEDS: predniSONE 10 MG TABLET (UD) PO SCH (09:16)
[2017-11-03] MEDS ORDERED: predniSONE 10 MG TABLET (UD) PO SCH (09:19)
--- NOTE | 2017-11-03 09:20 | PN ---
Progress Note, Physician - Current Medication List Current Medications: Active Medications Albuterol/Ipratropium (Duoneb -) 1 amp NEB Q4H PRN PRN Reason: SHORTNESS OF BREATH Last Admin: 11/01/17 11:45 Dose: 1 amp Budesonide (Pulmicort 0.25 Mg Nebulizer -) 1 amp NEB RBID [facility] Last Admin: 11/02/17 20:56 Dose: 1 amp Diltiazem HCl (Cardizem Cd -) 360 mg PO DAILY [facility] Last Admin: 11/03/17 09:16 Dose: 360 mg Furosemide (Lasix -) 40 mg PO DAILY [facility] Last Admin: 11/03/17 09:16 Dose: 40 mg Insulin Aspart (Novolog Vial Sliding Scale -) 1 vial SQ TIDAC [facility] PRN Reason: Protocol Last Admin: 11/03/17 06:25 Dose: Not Given Losartan Potassium (Cozaar -) 25 mg PO DAILY@1800 [facility] Last Admin: 11/02/17 17:00 Dose: 25 mg Methimazole (Tapazole -) 5 mg PO AM [facility] Last Admin: 11/03/17 06:26 Dose: 5 mg Montelukast Sodium (Singulair -) 10 mg PO HS [facility] Last Admin: 11/02/17 22:13 Dose: 10 mg - Objective Vital Signs: Vital Signs Temperature 98.3 F 11/03/17 07:07 Pulse Rate 74 11/03/17 07:07 Respiratory Rate 18 11/03/17 07:07 Blood Pressure 128/76 11/03/17 07:07 O2 Sat by Pulse Oximetry (%) 97 10/30/17 16:07 Cardiovascular: Yes: S1, S2 Respiratory: Yes: Diminished, Rhonchi Gastrointestinal: Yes: Normal Bowel Sounds, Soft Labs: CBC, BMP 11/01/17 10:50 11/01/17 10:50 INR, PTT INR 3.00 (0.82-1.09) H D 11/03/17 06:15 Assessment/Plan - Problems (1) Atrial fibrillation Assessment/Plan: chronic -warfarin 1 mg -on tele -seen by cardiology Code(s): I48.91 - UNSPECIFIED ATRIAL FIBRILLATION Qualifiers: Atrial fibrillation type: permanent Qualified Code(s): I48.2 - Chronic atrial fibrillation (2) COPD exacerbation Assessment/Plan: -seen by pulmonary -nebs -nasal o2 prn -po steroids -breathing improved Code(s): J44.1 - CHRONIC OBSTRUCTIVE PULMONARY DISEASE W (ACUTE) EXACERBATION (3) Supratherapeutic INR Assessment/Plan: - Warfarin -repeat INR in AM Code(s): R79.1 - ABNORMAL COAGULATION PROFILE (4) Gastroenteritis Assessment/Plan: -IVF -No abdominal symptoms at this time Code(s): K52.9 - NONINFECTIVE GASTROENTERITIS AND COLITIS, UNSPECIFIED (5) Confusion Assessment/Plan: -seen by neurology -CT head unremarkable -AxO x2 Code(s): R41.0 - DISORIENTATION, UNSPECIFIED (6) H/O heart valve replacement with bioprosthetic valve Assessment/Plan: -warfarin on hold for now for elevated INR -on tele -seen by cardiology Code(s): Z95.3 - PRESENCE OF XENOGENIC HEART VALVE (7) Hyperthyroidsim Assessment/Plan: -[facility] physical therapy--snf
--- NOTE | 2017-11-03 10:29 | PN ---
Progress Note (short form) - Note Progress Note: Neurology History of Present Illness The patient is a 77 year old female, with a significant past medical history of atrial fibrillation, congestive heart failure, hypertension, hypothyroidism, asthma, COPD, osteoarthritis, and mitral insufficient s/p valve replacement, who presents to the emergency department with, sore throat for the past couple of days and vomiting and diarrhea. TThe patient completed a chest XR approx. 2 days ago and was diagnosed with left lower lobe pneumonia. I was consulted for altered mental status likely 2/2 infection/metabolic derangements. Mental status appears to be near baseline. No new neurologic events overnight. More awake and conversive and knows she is in the hospital. Active Medications Albuterol/Ipratropium (Duoneb -) 1 amp NEB Q4H PRN PRN Reason: SHORTNESS OF BREATH Last Admin: 11/01/17 11:45 Dose: 1 amp Budesonide (Pulmicort 0.25 Mg Nebulizer -) 1 amp NEB RBID [facility] Last Admin: 11/03/17 07:45 Dose: 1 amp Diltiazem HCl (Cardizem Cd -) 360 mg PO DAILY [facility] Last Admin: 11/03/17 09:16 Dose: 360 mg Furosemide (Lasix -) 40 mg PO DAILY [facility] Last Admin: 11/03/17 09:16 Dose: 40 mg Insulin Aspart (Novolog Vial Sliding Scale -) 1 vial SQ TIDAC [facility] PRN Reason: Protocol Last Admin: 11/03/17 06:25 Dose: Not Given Losartan Potassium (Cozaar -) 25 mg PO DAILY@1800 [facility] Last Admin: 11/02/17 17:00 Dose: 25 mg Methimazole (Tapazole -) 5 mg PO AM [facility] Last Admin: 11/03/17 06:26 Dose: 5 mg Montelukast Sodium (Singulair -) 10 mg PO HS [facility] Last Admin: 11/02/17 22:13 Dose: 10 mg Prednisone 20 mg/ Prednisone 5 (mg) 25 mg PO BID [facility] Warfarin Sodium (Coumadin -) 1 mg PO DAILY@1800 [facility] *Physical Exam Vital Signs Temperature 98.3 F 11/03/17 07:07 Pulse Rate 74 11/03/17 07:07 Respiratory Rate 18 11/03/17 07:07 Blood Pressure 128/76 11/03/17 07:07 O2 Sat by Pulse Oximetry (%) 97 10/30/17 16:07 GENERAL: Awake, alert, and fully oriented, in no acute distress HEAD: No signs of trauma EYES: PERRLA, EOMI, sclera anicteric, conjunctiva clear ENT: Auricles normal inspection, hearing grossly normal, nares patent, oropharynx clear without exudates. Moist mucosa NECK: Normal ROM, supple, no lymphadenopathy, JVD, or masses LUNGS: +Diffuse wheezing bilaterally. +Rhonchi bilaterally at the bases. HEART: Regular rate and rhythm, normal S1 and S2, no murmurs, rubs or gallops ABDOMEN: Soft, nontender, normoactive bowel sounds.~ No guarding, no rebound.~ No masses EXTREMITIES: Normal range of motion, no edema.~ No clubbing or cyanosis. No cords, erythema, or tenderness NEUROLOGICAL: Cn intact, no slurred speech, strength grossly intact, sensory normal, gait slightly antalgic but no ataxia SKIN: Warm, Dry, normal turgor, no rashes or lesions noted. CBCD WBC 8.5 K/mm3 (4.0-10.0) D 11/01/17 10:50 RBC 4.21 M/mm3 (3.60-5.2) 11/01/17 10:50 Hgb 11.6 GM/dL (10.7-15.3) D 11/01/17 10:50 Hct 37.1 % (32.4-45.2) 11/01/17 10:50 MCV 88.3 fl (80-96) 11/01/17 10:50 MCHC 31.2 g/dl (32.0-36.0) L 11/01/17 10:50 RDW 17.5 % (11.6-15.6) H 11/01/17 10:50 Plt Count 246 K/MM3 (134-434) 11/01/17 10:50 MPV 9.0 fl (7.5-11.1) 11/01/17 10:50 CMP Sodium 140 mmol/L (136-145) 11/01/17 10:50 Potassium 4.6 mmol/L (3.5-5.1) 11/01/17 10:50 Chloride 104 mmol/L (98-107) 11/01/17 10:50 Carbon Dioxide 22 mmol/L (21-32) 11/01/17 10:50 Anion Gap 14 (8-16) 11/01/17 10:50 BUN 32 mg/dL (7-18) H 11/01/17 10:50 Creatinine 1.6 mg/dL (0.55-1.02) H 11/01/17 10:50 Creat Clearance w eGFR 31.34 (>60) 11/01/17 10:50 Calcium 8.2 mg/dL (8.5-10.1) L 11/01/17 10:50 Total Bilirubin 0.3 mg/dL (0.2-1.0) D 11/01/17 10:50 AST 15 U/L (15-37) 11/01/17 10:50 ALT 12 U/L (12-78) 11/01/17 10:50 Alkaline Phosphatase 60 U/L (45-117) 11/01/17 10:50 Total Protein 5.6 g/dl (6.4-8.2) L 11/01/17 10:50 Albumin 2.8 g/dl (3.4-5.0) L 11/01/17 10:50 CT head 09/28 without acute changes Plan: 77 year old female, with a significant past medical history of atrial fibrillation, congestive heart failure, hypertension, hypothyroidism, asthma, COPD, osteoarthritis, and mitral insufficient s/p valve replacement, who presents to the emergency department with, sore throat for the past couple of days and vomiting and diarrhea. The patient reports approx. 3 episodes of vomiting and three episodes of diarrhea described as non bloody, non bilious. The patient reports she does not currently feel nauseous. The patient reports she has been eating/ drinking less for the past couple of days with her last meal last night. The patient completed a chest XR approx. 2 days ago and was diagnosed with left lower lobe pneumonia. CT head stable. Continue medical mgmt , optimize INR. Patient also with PNA and continue infectious mgmt. Mental status appears to be near baseline. Continue medical mgmt and optimization. Neurologically improving.
--- NOTE | 2017-11-03 10:40 | PN ---
Progress Note, Physician History of Present Illness: seen and examined today in nad. alert, oriented. nad. no new complaints. states she is feeling better overall. - Current Medication List Current Medications: Active Medications Albuterol/Ipratropium (Duoneb -) 1 amp NEB Q4H PRN PRN Reason: SHORTNESS OF BREATH Last Admin: 11/01/17 11:45 Dose: 1 amp Budesonide (Pulmicort 0.25 Mg Nebulizer -) 1 amp NEB RBID [facility] Last Admin: 11/03/17 07:45 Dose: 1 amp Diltiazem HCl (Cardizem Cd -) 360 mg PO DAILY [facility] Last Admin: 11/03/17 09:16 Dose: 360 mg Furosemide (Lasix -) 40 mg PO DAILY [facility] Last Admin: 11/03/17 09:16 Dose: 40 mg Insulin Aspart (Novolog Vial Sliding Scale -) 1 vial SQ TIDAC [facility] PRN Reason: Protocol Last Admin: 11/03/17 06:25 Dose: Not Given Losartan Potassium (Cozaar -) 25 mg PO DAILY@1800 [facility] Last Admin: 11/02/17 17:00 Dose: 25 mg Methimazole (Tapazole -) 5 mg PO AM [facility] Last Admin: 11/03/17 06:26 Dose: 5 mg Montelukast Sodium (Singulair -) 10 mg PO HS [facility] Last Admin: 11/02/17 22:13 Dose: 10 mg Prednisone 20 mg/ Prednisone 5 (mg) 25 mg PO BID [facility] Warfarin Sodium (Coumadin -) 1 mg PO DAILY@1800 [facility] - Objective Vital Signs: Vital Signs Temperature 98.3 F 11/03/17 07:07 Pulse Rate 74 11/03/17 07:07 Respiratory Rate 18 11/03/17 07:07 Blood Pressure 128/76 11/03/17 07:07 O2 Sat by Pulse Oximetry (%) 97 10/30/17 16:07 Constitutional: Yes: No Distress, Calm Eyes: Yes: Conjunctiva Clear, EOM Intact, PERRL HENT: Yes: Atraumatic, Normocephalic Neck: Yes: Supple, Trachea Midline Cardiovascular: Yes: Pulse Irregular, Murmur, S1, S2. No: Regular Rate and Rhythm, Bradycardia, Tachycardia, Bruit, JVD, Gallop, Rub, S3, S4, Varicosities Respiratory: Yes: Regular, Diminished, Rhonchi, Wheezes. No: On Nasal O2, Rales , SOB Gastrointestinal: Yes: Normal Bowel Sounds, Soft. 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 GI illness/possible PNA -as per PMD -ok to dc tele AFib-HR adequately controlled currently, INR supratherapeutic likely secondary to GI illness -Dig and bblocker were stopped over the weekend -cont cardizem alone for now for rate control -INR down to 3 after Vit K -Holding coumadin for now, once INR back in therapeutic range plan to resume for goal INR 2-3 -ok to dc tele Bio MVR -outpatient f/up HTN-Adequately controlled -cont current medical regimen Chronic systolic/Diastolic CHF-euvolemic -Cont PO Lasix
[2017-11-03] MEDS: PREDNISONE PO SCH ×2 (11:04→21:51)
--- NOTE | 2017-11-03 11:28 | PN ---
Progress Note, Physician History of Present Illness: PULMONARY ALERT,COMFORTABLE,-RESP DISTRESS,+ COUGH - Current Medication List Current Medications: Active Medications Albuterol/Ipratropium (Duoneb -) 1 amp NEB Q4H PRN PRN Reason: SHORTNESS OF BREATH Last Admin: 11/01/17 11:45 Dose: 1 amp Budesonide (Pulmicort 0.25 Mg Nebulizer -) 1 amp NEB RBID [facility] Last Admin: 11/03/17 07:45 Dose: 1 amp Diltiazem HCl (Cardizem Cd -) 360 mg PO DAILY [facility] Last Admin: 11/03/17 09:16 Dose: 360 mg Furosemide (Lasix -) 40 mg PO DAILY [facility] Last Admin: 11/03/17 09:16 Dose: 40 mg Insulin Aspart (Novolog Vial Sliding Scale -) 1 vial SQ TIDAC [facility] PRN Reason: Protocol Last Admin: 11/03/17 11:15 Dose: 2 units Losartan Potassium (Cozaar -) 25 mg PO DAILY@1800 [facility] Last Admin: 11/02/17 17:00 Dose: 25 mg Methimazole (Tapazole -) 5 mg PO AM [facility] Last Admin: 11/03/17 06:26 Dose: 5 mg Montelukast Sodium (Singulair -) 10 mg PO HS [facility] Last Admin: 11/02/17 22:13 Dose: 10 mg Prednisone 20 mg/ Prednisone 5 (mg) 25 mg PO BID [facility] Last Admin: 11/03/17 11:04 Dose: Not Given Warfarin Sodium (Coumadin -) 1 mg PO DAILY@1800 [facility] - Objective Vital Signs: Vital Signs Temperature 98.3 F 11/03/17 07:07 Pulse Rate 74 11/03/17 07:07 Respiratory Rate 18 11/03/17 09:00 Blood Pressure 128/76 11/03/17 07:07 O2 Sat by Pulse Oximetry (%) 97 10/30/17 16:07 Constitutional: Yes: Well Nourished, Calm Eyes: Yes: WNL HENT: Yes: WNL Neck: Yes: WNL Cardiovascular: Yes: Pulse Irregular, S1, S2 Respiratory: Yes: Wheezes (BILATERAL WHEEZES) Gastrointestinal: Yes: Normal Bowel Sounds, Soft Extremities: Yes: WNL Edema: No Labs: CBC, BMP 11/01/17 10:50 11/01/17 10:50 INR, PTT INR 3.00 (0.82-1.09) H D 11/03/17 06:15 Problem List - Problems (1) Altered mental status Code(s): R41.82 - ALTERED MENTAL STATUS, UNSPECIFIED (2) Asthma Code(s): J45.909 - UNSPECIFIED ASTHMA, UNCOMPLICATED Qualifiers: Asthma severity: mild persistent (3) Atrial fibrillation Code(s): I48.91 - UNSPECIFIED ATRIAL FIBRILLATION Qualifiers: Atrial fibrillation type: permanent Qualified Code(s): I48.2 - Chronic atrial fibrillation (4) COPD (chronic obstructive pulmonary disease) Code(s): J44.9 - CHRONIC OBSTRUCTIVE PULMONARY DISEASE, UNSPECIFIED (5) Confusion Code(s): R41.0 - DISORIENTATION, UNSPECIFIED (6) Cough Code(s): R05 - COUGH (7) H/O heart valve replacement with bioprosthetic valve Code(s): Z95.3 - PRESENCE OF XENOGENIC HEART VALVE (8) History of mitral valve replacement with bioprosthetic valve Code(s): Z95.3 - PRESENCE OF XENOGENIC HEART VALVE (9) Supratherapeutic INR Code(s): R79.1 - ABNORMAL COAGULATION PROFILE (10) Thyroid disease Code(s): E07.9 - DISORDER OF THYROID, UNSPECIFIED (11) Acute kidney injury Code(s): N17.9 - ACUTE KIDNEY FAILURE, UNSPECIFIED (12) Gastroenteritis Code(s): K52.9 - NONINFECTIVE GASTROENTERITIS AND COLITIS, UNSPECIFIED Assessment/Plan IMP ASTHMA/COPD GASTROENTERITIS DEHYDRATION CONFUSION IMPOVED LLL OPACITY CHRONIC AFIB S/P MVR SUPRA-THERAPEUTIC INR JOE PLAN INHALED BRONCHODILATORS O2 FLUIDS MONITOR INR MONITOR LYTES PREDNISONE DR YE Problem List - Problems (1) Altered mental status Code(s): R41.82 - ALTERED MENTAL STATUS, UNSPECIFIED (2) Asthma Code(s): J45.909 - UNSPECIFIED ASTHMA, UNCOMPLICATED Qualifiers: Asthma severity: mild persistent (3) Atrial fibrillation Code(s): I48.91 - UNSPECIFIED ATRIAL FIBRILLATION Qualifiers: Atrial fibrillation type: permanent Qualified Code(s): I48.2 - Chronic atrial fibrillation (4) COPD (chronic obstructive pulmonary disease) Code(s): J44.9 - CHRONIC OBSTRUCTIVE PULMONARY DISEASE, UNSPECIFIED (5) Confusion Code(s): R41.0 - DISORIENTATION, UNSPECIFIED (6) Cough Code(s): R05 - COUGH (7) H/O heart valve replacement with bioprosthetic valve Code(s): Z95.3 - PRESENCE OF XENOGENIC HEART VALVE (8) History of mitral valve replacement with bioprosthetic valve Code(s): Z95.3 - PRESENCE OF XENOGENIC HEART VALVE (9) Supratherapeutic INR Code(s): R79.1 - ABNORMAL COAGULATION PROFILE (10) Thyroid disease Code(s): E07.9 - DISORDER OF THYROID, UNSPECIFIED (11) Acute kidney injury Code(s): N17.9 - ACUTE KIDNEY FAILURE, UNSPECIFIED (12) Gastroenteritis Code(s): K52.9 - NONINFECTIVE GASTROENTERITIS AND COLITIS, UNSPECIFIED
[2017-11-03] MEDS: LOSARTAN POTASSIUM 25 MG TABLET PO SCH (17:58)
[2017-11-03] MEDS: WARFARIN NA 1 MG TABLET (FP) PO SCH (17:58)
[2017-11-03] MEDS ORDERED: predniSONE 20 MG TABLET (UD) ONE (21:50)
[2017-11-03] MEDS ORDERED: INSULIN (NOVOLOG) ASPART 100 UNITS/ML 10ML VIAL ONE (21:50)
[2017-11-03] MEDS: MONTELUKAST NA 10 MG TABLET PO SCH (21:51)
[2017-11-04] MEDS ORDERED: INSULIN (NOVOLOG) ASPART 100 UNITS/ML 10ML VIAL ONE (06:14)
[2017-11-04] MEDS: INSULIN SLIDING SCALE (NOVOLOG) 1 VIAL SQ SCH ×3 (06:15→17:14)
[2017-11-04] MEDS: METHIMAZOLE 5 MG TABLET (FP) PO SCH (06:15)
[2017-11-04] MEDS: BUDESONIDE 0.25 MG/2ML INH SUSP VIAL NEB SCH ×2 (08:35→20:15)
[2017-11-04] MEDS: ALBUTEROL SO4 2.5/IPRATROPIUM 0.5 INH SOL 3 ML VIAL.NEB. NEB PRN ×2 (08:35→20:25)
--- NOTE | 2017-11-04 08:46 | PN ---
Progress Note, Physician Chief Complaint: no new complaints - Current Medication List Current Medications: Active Medications Albuterol/Ipratropium (Duoneb -) 1 amp NEB Q4H PRN PRN Reason: SHORTNESS OF BREATH Last Admin: 11/04/17 08:35 Dose: 1 amp Budesonide (Pulmicort 0.25 Mg Nebulizer -) 1 amp NEB RBID [facility] Last Admin: 11/04/17 08:35 Dose: Not Given Diltiazem HCl (Cardizem Cd -) 360 mg PO DAILY [facility] Last Admin: 11/03/17 09:16 Dose: 360 mg Furosemide (Lasix -) 40 mg PO DAILY [facility] Last Admin: 11/03/17 09:16 Dose: 40 mg Insulin Aspart (Novolog Vial Sliding Scale -) 1 vial SQ TIDAC [facility] PRN Reason: Protocol Last Admin: 11/04/17 06:15 Dose: 2 units Losartan Potassium (Cozaar -) 25 mg PO DAILY@1800 [facility] Last Admin: 11/03/17 17:58 Dose: 25 mg Methimazole (Tapazole -) 5 mg PO AM [facility] Last Admin: 11/04/17 06:15 Dose: 5 mg Montelukast Sodium (Singulair -) 10 mg PO HS [facility] Last Admin: 11/03/17 21:51 Dose: 10 mg Prednisone 20 mg/ Prednisone 5 (mg) 25 mg PO BID [facility] Last Admin: 11/03/17 21:51 Dose: 25 mg Warfarin Sodium (Coumadin -) 1 mg PO DAILY@1800 [facility] Last Admin: 11/03/17 17:58 Dose: 1 mg - Objective Vital Signs: Vital Signs Temperature 98.2 F 11/04/17 06:48 Pulse Rate 78 11/04/17 06:48 Respiratory Rate 20 11/04/17 06:48 Blood Pressure 122/74 11/04/17 06:48 O2 Sat by Pulse Oximetry (%) 95 11/03/17 20:45 Constitutional: Yes: Calm Cardiovascular: Yes: Pulse Irregular Respiratory: Yes: Rhonchi Gastrointestinal: Yes: Soft Edema: No Neurological: Yes: Alert, Oriented Labs: CBC, BMP 11/01/17 10:50 11/01/17 10:50 INR, PTT INR 3.00 (0.82-1.09) H D 11/03/17 06:15 Microbiology 10/30/17 20:00 Blood - Peripheral Venous Blood Culture - Preliminary NO GROWTH OBTAINED AFTER 96 HOURS, INCUBATION TO CONTINUE FOR 1 DAYS. 10/30/17 20:00 Blood - Peripheral Venous Blood Culture - Preliminary NO GROWTH OBTAINED AFTER 96 HOURS, INCUBATION TO CONTINUE FOR 1 DAYS. 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 GI illness/possible PNA -as per PMD AFib-HR adequately controlled currently, INR supratherapeutic likely secondary to GI illness -Dig and bblocker were stopped over initial few days of admission -cont cardizem alone for now for rate control -INR down after Vitamin K -Goal INR 2-3 Bio MVR -outpatient f/up HTN-Adequately controlled -cont current medical regimen Chronic systolic/Diastolic CHF-euvolemic -Cont PO Lasix
[2017-11-04 08:57] LABS: INR 2.13 (0.82-1.09); PROTHROMBIN TIME (PATIENT) 24.1 SEC (9.98-11.88)
[2017-11-04] MEDS ORDERED: predniSONE 20 MG TABLET (UD) ONE ×2 (09:58→21:11)
[2017-11-04] MEDS: FUROSEMIDE 40 MG TABLET (FP) PO SCH (10:01)
[2017-11-04] MEDS: PREDNISONE PO SCH ×2 (10:01→21:13)
--- NOTE | 2017-11-04 11:43 | PN ---
Progress Note (short form) - Note Progress Note: PULMONARY States breathing is improving. No cough or wheezing. Last Vital Signs Temp Pulse Resp BP Pulse Ox 98.2 F 78 20 122/74 95 11/04/17 06:48 11/04/17 06:48 11/04/17 06:48 11/04/17 06:48 11/03/17 20:45 Gen: mildly tachypneic with speaking Heart: RRR Lung: scattered wheeze Abd: soft, nontender Ext: no edema CBC, BMP 11/01/17 10:50 11/01/17 10:50 Active Medications Albuterol/Ipratropium (Duoneb -) 1 amp NEB Q4H PRN PRN Reason: SHORTNESS OF BREATH Last Admin: 11/04/17 08:35 Dose: 1 amp Budesonide (Pulmicort 0.25 Mg Nebulizer -) 1 amp NEB RBID [facility] Last Admin: 11/04/17 08:35 Dose: Not Given Diltiazem HCl (Cardizem Cd -) 360 mg PO DAILY [facility] Last Admin: 11/04/17 10:00 Dose: 360 mg Furosemide (Lasix -) 40 mg PO DAILY [facility] Last Admin: 11/04/17 10:01 Dose: 40 mg Insulin Aspart (Novolog Vial Sliding Scale -) 1 vial SQ TIDAC [facility] PRN Reason: Protocol Last Admin: 11/04/17 11:28 Dose: Not Given Losartan Potassium (Cozaar -) 25 mg PO DAILY@1800 [facility] Last Admin: 11/03/17 17:58 Dose: 25 mg Methimazole (Tapazole -) 5 mg PO AM [facility] Last Admin: 11/04/17 06:15 Dose: 5 mg Montelukast Sodium (Singulair -) 10 mg PO HS [facility] Last Admin: 11/03/17 21:51 Dose: 10 mg Prednisone 20 mg/ Prednisone 5 (mg) 25 mg PO BID [facility] Last Admin: 11/04/17 10:01 Dose: 25 mg Warfarin Sodium (Coumadin -) 1 mg PO DAILY@1800 [facility] Last Admin: 11/03/17 17:58 Dose: 1 mg A/P Supratherapeutic INR Asthma/COPD Atrial Fibrillation s/p MVR Acute Kidney Injury - slow prednisone taper - inhaled bronchodilators - singulair - O2 as needed - rate controlled - continue anticoagulation, target INR 2-3
--- NOTE | 2017-11-04 13:44 | PN ---
Progress Note, Physician Chief Complaint: patient says breathing might be little better - Current Medication List Current Medications: Active Medications Albuterol/Ipratropium (Duoneb -) 1 amp NEB Q4H PRN PRN Reason: SHORTNESS OF BREATH Last Admin: 11/04/17 08:35 Dose: 1 amp Budesonide (Pulmicort 0.25 Mg Nebulizer -) 1 amp NEB RBID [facility] Last Admin: 11/04/17 08:35 Dose: Not Given Diltiazem HCl (Cardizem Cd -) 360 mg PO DAILY [facility] Last Admin: 11/04/17 10:00 Dose: 360 mg Furosemide (Lasix -) 40 mg PO DAILY [facility] Last Admin: 11/04/17 10:01 Dose: 40 mg Insulin Aspart (Novolog Vial Sliding Scale -) 1 vial SQ TIDAC [facility] PRN Reason: Protocol Last Admin: 11/04/17 11:28 Dose: Not Given Losartan Potassium (Cozaar -) 25 mg PO DAILY@1800 [facility] Last Admin: 11/03/17 17:58 Dose: 25 mg Methimazole (Tapazole -) 5 mg PO AM [facility] Last Admin: 11/04/17 06:15 Dose: 5 mg Montelukast Sodium (Singulair -) 10 mg PO HS [facility] Last Admin: 11/03/17 21:51 Dose: 10 mg Prednisone 20 mg/ Prednisone 5 (mg) 25 mg PO BID [facility] Last Admin: 11/04/17 10:01 Dose: 25 mg Warfarin Sodium (Coumadin -) 1 mg PO DAILY@1800 [facility] Last Admin: 11/03/17 17:58 Dose: 1 mg - Objective Vital Signs: Vital Signs Temperature 98.2 F 11/04/17 06:48 Pulse Rate 78 11/04/17 06:48 Respiratory Rate 20 11/04/17 06:48 Blood Pressure 122/74 11/04/17 06:48 O2 Sat by Pulse Oximetry (%) 95 11/03/17 20:45 Constitutional: Yes: Calm Cardiovascular: Yes: Regular Rate and Rhythm, S1, S2 Respiratory: Yes: On Nasal O2, Wheezes Gastrointestinal: Yes: Normal Bowel Sounds, Soft Neurological: Yes: Alert, Oriented Labs: CBC, BMP 11/01/17 10:50 11/01/17 10:50 INR, PTT INR 2.13 (0.82-1.09) H 11/04/17 07:30 Problem List - Problems (1) COPD exacerbation Assessment/Plan: slow steroid taper bronchodilator Code(s): J44.1 - CHRONIC OBSTRUCTIVE PULMONARY DISEASE W (ACUTE) EXACERBATION (2) Atrial fibrillation Assessment/Plan: dig and cardizem INR at goal Code(s): I48.91 - UNSPECIFIED ATRIAL FIBRILLATION Qualifiers: Atrial fibrillation type: permanent Qualified Code(s): I48.2 - Chronic atrial fibrillation (3) Hypertension Assessment/Plan: continue medication Code(s): I10 - ESSENTIAL (PRIMARY) HYPERTENSION Qualifiers: Hypertension type: essential hypertension Qualified Code(s): I10 - Essential (primary) hypertension (4) Hyperthyroidism Assessment/Plan: methimazole Code(s): E05.90 - THYROTOXICOSIS, UNSP WITHOUT THYROTOXIC CRISIS OR STORM
[2017-11-04] MEDS: LOSARTAN POTASSIUM 25 MG TABLET PO SCH (17:23)
[2017-11-04] MEDS: WARFARIN NA 1 MG TABLET (FP) PO SCH (17:23)
[2017-11-04] MEDS: MONTELUKAST NA 10 MG TABLET PO SCH (21:13)
[2017-11-05] MEDS ORDERED: INSULIN (NOVOLOG) ASPART 100 UNITS/ML 10ML VIAL ONE (06:11)
[2017-11-05] MEDS: METHIMAZOLE 5 MG TABLET (FP) PO SCH (06:12)
[2017-11-05] MEDS: INSULIN SLIDING SCALE (NOVOLOG) 1 VIAL SQ SCH ×2 (06:12→12:08)
[2017-11-05] MEDS ORDERED: BUDESONIDE 0.5 MG/2 ML INH SUSP VIAL NEB ONE (07:20)
[2017-11-05] MEDS: BUDESONIDE 0.25 MG/2ML INH SUSP VIAL NEB SCH (07:30)
--- NOTE | 2017-11-05 09:30 | PN ---
Progress Note, Physician Chief Complaint: seen, examined, no new complaints - Current Medication List Current Medications: Active Medications Budesonide (Pulmicort 0.25 Mg Nebulizer -) 1 amp NEB RBID [facility] Last Admin: 11/04/17 20:15 Dose: 1 amp Diltiazem HCl (Cardizem Cd -) 360 mg PO DAILY [facility] Last Admin: 11/04/17 10:00 Dose: 360 mg Furosemide (Lasix -) 40 mg PO DAILY [facility] Last Admin: 11/04/17 10:01 Dose: 40 mg Insulin Aspart (Novolog Vial Sliding Scale -) 1 vial SQ TIDAC [facility] PRN Reason: Protocol Last Admin: 11/05/17 06:12 Dose: 2 units Losartan Potassium (Cozaar -) 25 mg PO DAILY@1800 [facility] Last Admin: 11/04/17 17:23 Dose: 25 mg Methimazole (Tapazole -) 5 mg PO AM [facility] Last Admin: 11/05/17 06:12 Dose: 5 mg Montelukast Sodium (Singulair -) 10 mg PO HS [facility] Last Admin: 11/04/17 21:13 Dose: 10 mg Prednisone 20 mg/ Prednisone 5 (mg) 25 mg PO BID [facility] Last Admin: 11/04/17 21:13 Dose: 25 mg Warfarin Sodium (Coumadin -) 1 mg PO DAILY@1800 [facility] Last Admin: 11/04/17 17:23 Dose: 1 mg - Objective Vital Signs: Vital Signs Temperature 98.4 F 11/05/17 05:54 Pulse Rate 79 11/05/17 05:54 Respiratory Rate 20 11/05/17 05:54 Blood Pressure 128/71 11/05/17 05:54 O2 Sat by Pulse Oximetry (%) 95 11/04/17 20:11 Constitutional: Yes: Calm Cardiovascular: Yes: Pulse Irregular Respiratory: Yes: CTA Bilaterally Gastrointestinal: Yes: Soft Edema: No Neurological: Yes: Alert, Oriented Labs: CBC, BMP 11/01/17 10:50 11/01/17 10:50 INR, PTT INR 2.13 (0.82-1.09) H 11/04/17 07:30 Laboratory Tests 11/04/17 07:30 INR 2.13 H Assessment/Plan Assessment/Plan 77 year old woman with a 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 GI illness/possible PNA -as per PMD AFib-HR adequately controlled currently, INR supratherapeutic likely secondary to GI illness -Dig and bblocker were stopped over initial few days of admission -cont cardizem alone for now for rate control -INR down after Vitamin K -Goal INR 2-3
--- NOTE | 2017-11-05 10:02 | DS ---
Physical Examination Vital Signs: Vital Signs Temperature 98.4 F 11/05/17 05:54 Pulse Rate 79 11/05/17 05:54 Respiratory Rate 20 11/05/17 05:54 Blood Pressure 128/71 11/05/17 05:54 O2 Sat by Pulse Oximetry (%) 95 11/04/17 20:11 Constitutional: Yes: Well Nourished, No Distress, Calm Cardiovascular: Yes: Pulse Irregular Respiratory: Yes: Regular Gastrointestinal: Yes: Normal Bowel Sounds Edema: No Peripheral Pulses WNL: Yes Neurological: Yes: Alert, Pre-Existing Deficit Psychiatric: Yes: Alert Labs: CBC, BMP 11/01/17 10:50 11/01/17 10:50 Discharge Summary Reason For Visit: WARFARIN OVERDOSE/CHRONIC OBSTRUCTIVE PULMONARY DI Current Active Problems Acute kidney injury (Acute) Allergy to ampicillin (Acute) COPD exacerbation (Acute) Gastroenteritis (Acute) Hypomagnesemia (Acute) Nausea & vomiting (Acute) Pneumonia (Acute) Thyrotoxicosis with diffuse goiter and without thyroid storm (Acute) Hospital Course: 77 y/o F with PMH afib (on coumadin), CHF, HTN, hypothyroidism, asthma, COPD, mitral insufficiency s/p valve replacement, who came to ED from [facility] with emesis and diarrhea for the past day. As per pt, she has had decreased PO intake , multiple episodes of NBNB emesis, as well as multiple loose BMs during this time. She denies NELSON, fever, chills, or any sick contacts. However at the [facility], pt was found to have LLL infiltrate and was sent here for that reason. During her stay, her warfarin dosage was gradually adjusted. She was started on Tapazole for hyperthyroidism. She was seen by Physical therapy. Condition: Stable - Instructions Diet, Activity, Other Instructions: 1. Prednisone tapering dose: 25 mg po BID x 3 days 20 mg po BID x 3 days 15 mg po BID x 3 days 10 mg po BID x 3 days 5 mg po BID x 3 days 2.Warfarin 2 mg MW and 1 mg all other days 3. Check PT/INR in 1 week Referrals: Joey Hernandez MD [Primary Care Provider] - Disposition: [facility] F[facility] - Home Medications Comprehensive Discharge Medication List: Ambulatory Orders Budesonide [Pulmicort 0.25 mg Nebulizer -] 1 amp NEB BID #60 amp 08/13/17 Digoxin [Lanoxin -] 0.125 mg PO DAILY tablet 08/13/17 Diltiazem Cd [Cardizem Cd -] 360 mg PO DAILY tab 08/13/17 Aspirin [ASA -] 81 mg PO DAILY 09/28/17 Furosemide [Lasix -] 40 mg PO DAILY 09/28/17 Metformin HCl [Glucophage -] 500 mg PO BID@1000,2100 09/28/17 Montelukast Na [Singulair -] 10 mg PO HS 09/28/17 Nebivolol HCl [Bystolic] 2.5 mg PO DAILY 09/28/17 Furosemide [Lasix -] 40 mg PO DAILY #30 tablet 10/03/17 Losartan Potassium [Cozaar -] 25 mg PO DAILY@1800 #30 tablet 10/03/17 Prednisone [Deltasone -] 30 mg PO DAILY #90 tablet 10/03/17 Warfarin Na [Coumadin -] 2.5 mg PO DAILY@1800 #30 tablet 10/03/17
[2017-11-05] MEDS ORDERED: predniSONE 20 MG TABLET (UD) ONE (10:13)
[2017-11-05] MEDS: FUROSEMIDE 40 MG TABLET (FP) PO SCH (10:17)
[2017-11-05] MEDS: PREDNISONE PO SCH (10:17)
--- NOTE | 2017-11-05 11:13 | PN ---
Progress Note, Physician Chief Complaint: Coumadin toxicity History of Present Illness: NAD, in bed -INR therapeutic on warfarin - Current Medication List Current Medications: Active Medications Budesonide (Pulmicort 0.25 Mg Nebulizer -) 1 amp NEB RBID [facility] Last Admin: 11/05/17 07:30 Dose: 1 amp Diltiazem HCl (Cardizem Cd -) 360 mg PO DAILY [facility] Last Admin: 11/05/17 10:17 Dose: 360 mg Furosemide (Lasix -) 40 mg PO DAILY [facility] Last Admin: 11/05/17 10:17 Dose: 40 mg Insulin Aspart (Novolog Vial Sliding Scale -) 1 vial SQ TIDAC [facility] PRN Reason: Protocol Last Admin: 11/05/17 06:12 Dose: 2 units Losartan Potassium (Cozaar -) 25 mg PO DAILY@1800 [facility] Last Admin: 11/04/17 17:23 Dose: 25 mg Methimazole (Tapazole -) 5 mg PO AM [facility] Last Admin: 11/05/17 06:12 Dose: 5 mg Montelukast Sodium (Singulair -) 10 mg PO HS [facility] Last Admin: 11/04/17 21:13 Dose: 10 mg Prednisone 20 mg/ Prednisone 5 (mg) 25 mg PO BID [facility] Last Admin: 11/05/17 10:17 Dose: 25 mg Warfarin Sodium (Coumadin -) 1 mg PO DAILY@1800 [facility] Last Admin: 11/04/17 17:23 Dose: 1 mg - Objective Vital Signs: Vital Signs Temperature 98.4 F 11/05/17 05:54 Pulse Rate 79 11/05/17 05:54 Respiratory Rate 20 11/05/17 05:54 Blood Pressure 128/71 11/05/17 05:54 O2 Sat by Pulse Oximetry (%) 95 11/04/17 20:11 Constitutional: Yes: Well Nourished, No Distress, Calm Cardiovascular: Yes: Pulse Irregular Respiratory: Yes: Regular Musculoskeletal: Yes: WNL Extremities: Yes: WNL Edema: No Peripheral Pulses WNL: Yes Neurological: Yes: Alert, Pre-Existing Deficit Psychiatric: Yes: Alert Labs: CBC, BMP 11/01/17 10:50 11/01/17 10:50 INR, PTT INR 2.13 (0.82-1.09) H 11/04/17 07:30 Problem List - Problems (1) Atrial fibrillation Assessment/Plan: chronic -INR therapeutic -seen by cardiology Code(s): I48.91 - UNSPECIFIED ATRIAL FIBRILLATION Qualifiers: Atrial fibrillation type: permanent Qualified Code(s): I48.2 - Chronic atrial fibrillation (2) COPD exacerbation Assessment/Plan: -seen by pulmonary -nebs -nasal o2 prn -slow tapering po steroids -breathing improved Code(s): J44.1 - CHRONIC OBSTRUCTIVE PULMONARY DISEASE W (ACUTE) EXACERBATION (3) Supratherapeutic INR Assessment/Plan: -warfarin restarted, INR therapeutic Code(s): R79.1 - ABNORMAL COAGULATION PROFILE (4) Gastroenteritis Assessment/Plan: -No abdominal symptoms at this time Code(s): K52.9 - NONINFECTIVE GASTROENTERITIS AND COLITIS, UNSPECIFIED (5) Confusion Assessment/Plan: -seen by neurology -CT head unremarkable -AxO x2 Code(s): R41.0 - DISORIENTATION, UNSPECIFIED (6) H/O heart valve replacement with bioprosthetic valve Assessment/Plan: -warfarin restarted, INR therapeutic -seen by cardiology Code(s): Z95.3 - PRESENCE OF XENOGENIC HEART VALVE (7) Metabolic encephalopathy Assessment/Plan: -upon admission, improved now Code(s): G93.41 - METABOLIC ENCEPHALOPATHY Assessment/Plan see problem list
[2017-11-05 11:31] LABS: INR 1.84 (0.82-1.09); PROTHROMBIN TIME (PATIENT) 20.8 SEC (9.98-11.88)
[2017-11-05 14:22] VITALS: BP 126/81; PULSE 87; TEMP 98.2
== END 2017-11-05 16:09 | DRG 391 ==
LOC: JER 15:57 → JERBED 20:13 → J4W 10-31 00:09 → J6S 11-03 14:39
PROVIDERS: ADMIT Internal Medicine; ATTEND Family Medicine
DX: K52.9 Noninfective gastroenteritis and colitis, unspecified (principal); G93.41 Metabolic encephalopathy; J44.1 Chronic obstructive pulmonary disease with (acute) exacerbation; N17.9 Acute kidney failure, unspecified; I50.42 Chronic combined systolic (congestive) and diastolic (congestive) heart failure; D68.9 Coagulation defect, unspecified; E86.0 Dehydration; R79.1 Abnormal coagulation profile; I11.0 Hypertensive heart disease with heart failure; I48.2 Chronic atrial fibrillation; R41.0 Disorientation, unspecified; E05.90 Thyrotoxicosis, unspecified without thyrotoxic crisis or storm; J45.909 Unspecified asthma, uncomplicated; Z88.0 Allergy status to penicillin; E83.42 Hypomagnesemia; R11.2 Nausea with vomiting, unspecified
CPT/HCPCS: 36415; 70450-TC; 71046-TC; 80048; 80053; 80162; 82962; 83036; 83605; 83735; 84100; 84439; 84443; 85025; 85610; 85730; 87040; 93005; 93010; 94640; 97116-GP; 97161-GP; 99283-25

== ENCOUNTER 2017-12-17 14:20 | Inpatient (IN) | payer OTHER ==
[2017-12-17 14:49] VITALS: BMI 36.6
--- NOTE | 2017-12-17 14:55 | PDOC ---
History of Present Illness - General Chief Complaint: Weakness Stated Complaint: WEAKNESS History Source: Patient Exam Limitations: Clinical Condition, Dementia - History of Present Illness Initial Comments: 12/17/17 14:52 77 y/o F with PMH dementia, afib (on coumadin; s/p valve replacement), CHF, HTN , fatty liver disease, hypothyroidism, recently at [facility] (d/c yesterday for biliary colic), who was BIBEMS d/t weakness and lethargy since yesterday. As per EMS, daughter called since pt was extremely weak and was "not being herself. " Additionally, pt had decreased PO intake and decreased appetite during this time. Pt also endorses RUQ, inferior sternal pain over the past day. Yesterday, her pain was constant, 10/10, however today she states that it is a 5/10. States that pain is similar to her biliary colic. Denies fever, chills, SOB, or changes in urinary or bowel function. Pt is a poor historian, and daughter is unreachable via phone. At baseline, pt lives with her daughter however she is unable to take care of her d/t increased falls. PMH: as above PsxH: valve replacement meds: as in chart allergies: ampicillin, codeine FH: mother- HTN SH: denies cigarette, alcohol, or recreational drug use. Past History - Past Medical History Allergies/Adverse Reactions: Allergies Allergy/AdvReac Type Severity Reaction Status Date / Time ampicillin [Ampicillin] Allergy Severe Swelling Verified 12/17/17 14:22 codeine [Codeine] Allergy Swelling Verified 12/17/17 14:22 Home Medications: Ambulatory Orders Digoxin [Lanoxin -] 0.125 mg PO DAILY tablet 08/13/17 Diltiazem Cd [Cardizem Cd -] 360 mg PO DAILY tab 08/13/17 Aspirin [ASA -] 81 mg PO DAILY 09/28/17 Montelukast Na [Singulair -] 10 mg PO HS 09/28/17 Furosemide [Lasix -] 40 mg PO DAILY #30 tablet 10/03/17 Losartan Potassium [Cozaar -] 25 mg PO DAILY@1800 #30 tablet 10/03/17 Methimazole [Tapazole -] 5 mg PO AM tablet 11/05/17 Warfarin Na [Coumadin -] 1 mg PO DAILY@1800 tablet 11/05/17 Anemia: No Asthma: Yes (NO MEDS) Cancer: No Cardiac Disorders: Yes (AFIB) CVA: No COPD: No CHF: Yes DVT: No Dementia: No Diabetes: Yes Dialysis: No GI Disorders: No Disorders: No HTN: Yes Hypercholesterolemia: No Kidney Stones: No Liver Disease: Yes (FATTY LIVER) Psychiatric Problems: No Seizures: No Thyroid Disease: Yes (HYPO, NO MEDS) Lung CA: No - Surgical History Abdominal Surgery: Yes (TUBAL LIGATION) Appendectomy: No Cardiac Surgery: Yes (mitral valve replacement 2 wks ago) Cholecystectomy: No Lung Surgery: No Neurologic Surgery: No Orthopedic Surgery: No - Family Disease History Family Disease History: Diabetes: Father, Heart Disease: Father, Mother - Immunization History Immunization Up to Date: Yes - Suicide/Smoking/Psychosocial Hx Smoking Status: No Smoking History: Never smoked Have you smoked in the past 12 months: No Number of Cigarettes Smoked Daily: 0 Cigars Per Day: 0 Information on smoking cessation initiated: No Hx Alcohol Use: No Drug/Substance Use Hx: No Substance Use Type: None Hx Substance Use Treatment: No Review of Systems - Review of Systems Able to Perform ROS?: Yes Is the patient limited [place] proficient: No Constitutional: Yes: Chills, Diaphoresis, Malaise ABD/GI: Yes: Abdominal cramping Musculoskeletal: Yes: Muscle Weakness All Other Systems: Reviewed and Negative *Physical Exam - Vital Signs Last Vital Signs Temp Pulse Resp BP Pulse Ox 98.2 F 93 H 18 123/88 100 12/17/17 14:20 12/17/17 14:20 12/17/17 14:20 12/17/17 14:20 12/17/17 14:20 - Physical Exam General Appearance: Yes: Appropriately Dressed, Obese, Other (in no acute distress) HEENT: positive: EOMI, CHERI Neck: positive: Supple Respiratory/Chest: positive: Lungs Clear, Normal Breath Sounds Cardiovascular: positive: Irregularly Irregular Vascular Pulses: Dorsalis-Pedis (R): 2+, Doralis-Pedis (L): 2+ Gastrointestinal/Abdominal: positive: Other (+TTP RUQ, also diffusely TTP) Musculoskeletal: positive: Normal Inspection Extremity: positive: Normal Range of Motion Neurologic: positive: roller embosser II-XII NML intact ED Treatment Course - LABORATORY CBC & Chemistry Diagram: 12/17/17 16:10 12/17/17 14:10 Medical Decision Making - Medical Decision Making 12/17/17 15:41 77 y/o F with PMH dementia, afib (on coumadin; s/p valve replacement), CHF, HTN , fatty liver disease, hypothyroidism, recently at [facility] (d/c yesterday for biliary colic), who was BIBEMS d/t weakness and lethargy since yesterday. will send general labs, will also send UA, CXR. Pt will eventually need SNF placement as daughter unable to take care of her 12/17/17 16:23 Will give 250 cc NS bolus will also get lipase and reassess 12/17/17 16:52 case d/w Dr. Perez for med-surg *DC/Admit/Observation/Transfer Diagnosis at time of Disposition: Weakness - Discharge Dispostion Condition at time of disposition: Guarded Admit: Yes - Referrals Referrals: Joey Hernandez MD [Primary Care Provider] - - Patient Instructions - Post Discharge Activity
[2017-12-17] MEDS ORDERED: SODIUM CHLORIDE 250 ML IV STA (16:23)
--- NOTE | 2017-12-17 16:24 | PDOC ---
Attending Attestation - Resident Resident Name: Pam Lerner - HPI HPI: 12/17/17 16:22 77-year-old female with multiple comorbidities presents to the ER for lethargy, generalized weakness and malaise, significant decreased intake of by mouth liquids after being evaluated and diagnosed with cholelithiasis 24 hours previously. Patient denies fever/chills/vomiting/diarrhea. - Physicial Exam PE: 12/17/17 16:22 Patient is awake and alert, afebrile, nontoxic appearing; Normocephalic, atraumatic PERRLA, EOMI No JVD CTA RRR, 2/6 se murmur sft, nd, + mild ruq ttp no LEs edema - Medical Decision Making 12/17/17 16:24 77-year-old female with multiple comorbidities presents with lethargy, generalized weakness and malaise, decreased by mouth intake of liquids. In the ER, patient is awake and alert, afebrile, nontoxic appearing. Physical exam reveals mild right upper quadrant tenderness only without guarding or rebound. We'll obtain CBC/CMP/UA/EKG. Patient will most likely require admission for judicious hydration, and placement and chcf for short-term rehabilitation.
[2017-12-17 17:03] LABS: ALBUMIN 2.8 g/dl (3.4-5.0); ALK PHOS 66 U/L (45-117); ANION GAP 10 (8-16); BILIRUBIN,TOTAL 0.8 mg/dL (0.2-1.0); BLOOD UREA NITROGEN 6 mg/dL (7-18); CALCIUM 8.2 mg/dL (8.5-10.1); CHLORIDE 106 mmol/L (98-107); CO2 24 mmol/L (21-32); CREATININE 0.6 mg/dL (0.55-1.02); GLUCOSE,RANDOM 100 mg/dL (74-106); POTASSIUM 3.6 mmol/L (3.5-5.1); SGOT/AST 16 U/L (15-37); SGPT/ALT < 6 U/L (12-78); SODIUM 140 mmol/L (136-145); TOT PROT 5.7 g/dl (6.4-8.2)
[2017-12-17 17:05] LABS: BASO % 0.5 % (0-2.0); EOS % 0.2 % (0-4.5); HEMATOCRIT 37.5 % (32.4-45.2); HEMOGLOBIN 12.3 GM/dL (10.7-15.3); LYMPH % 13.1 % (8-40); MCH 28.7 pg (25.7-33.7); MCHC 32.7 g/dl (32.0-36.0); MEAN CELL VOLUME 87.7 fl (80-96); MONO % 11.1 % (3.8-10.2); NEUT % 75.1 % (42.8-82.8); PLATELET COUNT 277 K/MM3 (134-434); RBC 4.28 M/mm3 (3.60-5.2); WHITE BLOOD COUNT 13.9 K/mm3 (4.0-10.0)
[2017-12-17] MEDS ORDERED: WARFARIN NA 1 MG TABLET (FP) ONE (18:12)
[2017-12-17] MEDS ORDERED: LOSARTAN POTASSIUM 25 MG TABLET ONE (18:13)
[2017-12-17] MEDS: LOSARTAN POTASSIUM 25 MG TABLET PO SCH (18:15)
[2017-12-17] MEDS: WARFARIN NA 1 MG TABLET (FP) PO SCH (18:15)
[2017-12-17 18:38] LABS: URINE APPEARANCE SLCLOUDY; URINE BILIRUBIN NEGATIVE (NEGATIVE); URINE BLOOD NEGATIVE (NEGATIVE); URINE COLOR YELLOW; URINE GLUCOSE (UA) NEGATIVE (NEGATIVE); URINE KETONE NEGATIVE (NEGATIVE); URINE LEUK ESTERASE NEGATIVE (NEGATIVE); URINE NITRITE NEGATIVE (NEGATIVE); URINE PROTEIN NEGATIVE (NEGATIVE); URINE UROBILINOGEN 4.0 E.U/dl mg/dL (0.2-1.0)
[2017-12-17 20:09] LABS: AMYLASE 32 U/L (25-115)
[2017-12-17] MEDS: MONTELUKAST NA 10 MG TABLET PO SCH (21:19)
[2017-12-17] MEDS: D5-1/2NS+20 MEQ KCL - 20 MEQ/1,000 ML INFUS.BAG IV SCH (21:23)
[2017-12-17 22:02] LABS: INR 2.89 (0.82-1.09); PROTHROMBIN TIME (PATIENT) 32.7 SEC (9.98-11.88)
--- NOTE | 2017-12-18 03:36 | HOSP ---
Subjective - Review of Symptoms Events since last encounter: Hospitalist Encounter Notified by RN that the patient needs a peripheral line for IV medication and IV fluids. Per RN the patient keeps self removing her IV lines. Physical Examination Vital Signs: Vital Signs Temperature 99.8 F H 12/17/17 22:00 Pulse Rate 72 12/17/17 22:00 Respiratory Rate 18 12/17/17 23:00 Blood Pressure 120/75 12/17/17 22:00 O2 Sat by Pulse Oximetry (%) 97 12/17/17 23:00 Constitutional: Yes: Well Nourished, No Distress, Calm, Obese Eyes: Yes: WNL, Conjunctiva Clear, PERRL HENT: Yes: WNL, Atraumatic, Normocephalic Neck: Yes: WNL, Supple, Trachea Midline Cardiovascular: Yes: Pulse Irregular, S1, S2 Respiratory: Yes: WNL, Regular, CTA Bilaterally Gastrointestinal: Yes: WNL, Normal Bowel Sounds, Soft, Abdomen, Obese Peripheral Pulses WNL: Yes Neurological: Yes: Alert Psychiatric: Yes: Alert Labs: CBC, BMP 12/17/17 16:10 12/17/17 14:10 Hospitalist Encounter Assessment: This is a 77 y/o woman with a PMHx of: Dementia, Afib, (on Coumadin, valve replacement), CHF, HTN, Fatty Liver. Admitted for Weakness and Lethargy. Plan: Placed peripheral IV 22g with good blood return, flushed with 10cc saline- no induration, no redness noted Patient tolerated procedure with no complaints IV infusion restarted by RN
[2017-12-18] MEDS: METHIMAZOLE 5 MG TABLET (FP) PO SCH (06:52)
[2017-12-18 07:41] LABS: BASO % 0.4 % (0-2.0); EOS % 0.4 % (0-4.5); HEMATOCRIT 35.6 % (32.4-45.2); HEMOGLOBIN 11.7 GM/dL (10.7-15.3); LYMPH % 14.1 % (8-40); MCH 28.8 pg (25.7-33.7); MCHC 32.9 g/dl (32.0-36.0); MEAN CELL VOLUME 87.7 fl (80-96); MONO % 11.3 % (3.8-10.2); NEUT % 73.8 % (42.8-82.8); PLATELET COUNT 253 K/MM3 (134-434); RBC 4.06 M/mm3 (3.60-5.2); RDW 19.6 % (11.6-15.6); WHITE BLOOD COUNT 11.7 K/mm3 (4.0-10.0)
[2017-12-18 07:51] LABS: INR 2.49 (0.82-1.09); PROTHROMBIN TIME (PATIENT) 28.1 SEC (9.98-11.88)
[2017-12-18 08:22] LABS: ALBUMIN 2.7 g/dl (3.4-5.0); ANION GAP 11 (8-16); BILIRUBIN,TOTAL 1.2 mg/dL (0.2-1.0); BLOOD UREA NITROGEN 7 mg/dL (7-18); CALCIUM 8.1 mg/dL (8.5-10.1); CHLORIDE 105 mmol/L (98-107); CO2 24 mmol/L (21-32); CREATININE 0.6 mg/dL (0.55-1.02); GLUCOSE,RANDOM 92 mg/dL (74-106); POTASSIUM 3.3 mmol/L (3.5-5.1); SGOT/AST 12 U/L (15-37); SGPT/ALT < 6 U/L (12-78); SODIUM 140 mmol/L (136-145); TOT PROT 5.5 g/dl (6.4-8.2)
[2017-12-18 08:25] LABS: ALK PHOS 63 U/L (45-117)
[2017-12-18] MEDS: DIGOXIN 0.125 MG TABLET (FP) PO SCH (09:44)
[2017-12-18] MEDS: ASPIRIN 81 MG CHEWABLE TABLETS PO SCH (09:44)
--- NOTE | 2017-12-18 10:16 | PN ---
Progress Note, Physician Chief Complaint: ID Full note dictated - Current Medication List Current Medications: Active Medications Acetaminophen (Tylenol -) 650 mg PO Q4H PRN PRN Reason: FEVER Aspirin (Asa -) 81 mg PO DAILY [facility] Last Admin: 12/18/17 09:44 Dose: 81 mg Digoxin (Lanoxin -) 0.125 mg PO DAILY [facility] Last Admin: 12/18/17 09:44 Dose: 0.125 mg Diltiazem HCl (Cardizem Cd -) 360 mg PO DAILY [facility] Last Admin: 12/18/17 09:44 Dose: 360 mg Potassium Chloride/Dextrose/Sod Cl (D5-1/2ns+20 Meq Kcl -) 20 meq in 1,000 mls @ 75 mls/hr IV ASDIR [facility] Last Admin: 12/17/17 21:23 Dose: 75 mls/hr Losartan Potassium (Cozaar -) 25 mg PO DAILY@1800 [facility] Last Admin: 12/17/17 18:15 Dose: 25 mg Methimazole (Tapazole -) 5 mg PO AM [facility] Last Admin: 12/18/17 06:52 Dose: 5 mg Montelukast Sodium (Singulair -) 10 mg PO HS [facility] Last Admin: 12/17/17 21:19 Dose: 10 mg Warfarin Sodium (Coumadin -) 1 mg PO DAILY@1800 [facility] Last Admin: 12/17/17 18:15 Dose: 1 mg - Objective Vital Signs: Vital Signs Temperature 99.0 F 12/18/17 06:00 Pulse Rate 88 12/18/17 09:44 Respiratory Rate 20 12/18/17 06:00 Blood Pressure 124/77 12/18/17 06:00 O2 Sat by Pulse Oximetry (%) 97 12/18/17 03:00 Constitutional: Yes: Well Nourished, No Distress Neck: Yes: WNL, Supple Cardiovascular: Yes: Pulse Irregular, S1, S2. No: Murmur Respiratory: Yes: WNL, Regular, CTA Bilaterally Gastrointestinal: Yes: WNL, Normal Bowel Sounds, Soft, Tenderness (tender RUQ) Labs: CBC, BMP 12/18/17 06:00 12/18/17 06:00 INR, PTT INR 2.49 (0.82-1.09) H 12/18/17 06:00 Problem List - Problems (1) Atrial fibrillation Code(s): I48.91 - UNSPECIFIED ATRIAL FIBRILLATION Qualifiers: Atrial fibrillation type: permanent Qualified Code(s): I48.2 - Chronic atrial fibrillation (2) Cholelithiasis Code(s): K80.20 - CALCULUS OF GALLBLADDER W/O CHOLECYSTITIS W/O OBSTRUCTION Qualifiers: Cholelithiasis location: gallbladder Cholecystitis presence: without cholecystitis Biliary obstruction: without biliary obstruction Qualified Code(s): K80.20 - Calculus of gallbladder without cholecystitis without obstruction (3) H/O heart valve replacement with bioprosthetic valve Code(s): Z95.3 - PRESENCE OF XENOGENIC HEART VALVE Assessment/Plan Laboratory Tests 12/17/17 12/18/17 12/18/17 16:10 06:00 06:00 WBC 13.9 H D 11.7 H Hgb 11.7 Plt Count 253 BUN 7 Creatinine 0.6 Creat Clearance w eGFR > 60 Assessment Concern for cholecysititis in this 77 year old female with multiple comorbidities PCN severe allergy Plan Ertepenem 1 gram daily GI consult Blood cultures CRP JIGAR Barton MD
--- NOTE | 2017-12-18 10:34 | HP ---
Admitting History and Physical - Primary Care Physician PCP: Escobar Perez - Admission History of Present Illness: 77 y/o F with PMH dementia, afib (on coumadin; s/p valve replacement), CHF, HTN , fatty liver disease, hypothyroidism, recently at [facility] (d/c yesterday for biliary colic), who was BIBEMS d/t weakness and lethargy since yesterday. As per EMS, daughter called since pt was extremely weak and was "not being herself. " Additionally, pt had decreased PO intake and decreased appetite during this time. Pt also endorses RUQ, inferior sternal pain over the past day. Yesterday, her pain was constant, 10/10, however today she states that it is a 5/10. States that pain is similar to her biliary colic. Denies fever, chills, SOB, or changes in urinary or bowel function. Pt is a poor historian, and daughter is unreachable via phone. At baseline, pt lives with her daughter however she is unable to take care of her d/t increased falls. 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 No: Diabetes Mellitus - Past Surgical History Past Surgical History: Yes: Tubal Ligation (laparoscopic), Valve Replacement ( mechanical mitral 2 wks ago) - Smoking History Smoking history: Never smoked Have you smoked in the past 12 months: No Aproximately how many cigarettes per day: 0 - Alcohol/Substance Use Hx Alcohol Use: No History of Substance Use: reports: None - Social History ADL: Independent History of Recent Travel: No Home Medications - Allergies Allergies/Adverse Reactions: Allergies Allergy/AdvReac Type Severity Reaction Status Date / Time ampicillin [Ampicillin] Allergy Severe Swelling Verified 12/17/17 14:22 codeine [Codeine] Allergy Swelling Verified 12/17/17 14:22 - Home Medications Home Medications: Ambulatory Orders Diltiazem Cd [Cardizem Cd -] 360 mg PO DAILY tab 08/13/17 Aspirin [ASA -] 81 mg PO DAILY 09/28/17 Montelukast Na [Singulair -] 10 mg PO HS 09/28/17 Furosemide [Lasix -] 40 mg PO DAILY #30 tablet 10/03/17 Methimazole [Tapazole -] 5 mg PO AM tablet 11/05/17 Budesonide [Pulmicort 0.25 mg Nebulizer -] 1 amp I[facility] BID 12/17/17 Digoxin 125 mcg PO HS 12/17/17 Donepezil HCl [Aricept] 5 mg PO HS 12/17/17 Hydralazine HCl 10 mg PO AM 12/17/17 Losartan Potassium 25 mg PO HS 12/17/17 Simvastatin 10 mg PO HS 12/17/17 Warfarin Sodium 4 mg PO HS 12/17/17 Warfarin Sodium [Coumadin] 3 mg PO Q2D 12/17/17 Family Disease History - Family Disease History Family Disease History: Diabetes: Father (HTN) Physical Examination Vital Signs: Vital Signs Temperature 99.0 F 12/18/17 06:00 Pulse Rate 88 12/18/17 09:44 Respiratory Rate 20 12/18/17 06:00 Blood Pressure 124/77 12/18/17 06:00 O2 Sat by Pulse Oximetry (%) 97 12/18/17 03:00 Constitutional: Yes: Well Nourished, No Distress, Calm Cardiovascular: Yes: Regular Rate and Rhythm Respiratory: Yes: Regular Gastrointestinal: Yes: Normal Bowel Sounds, Soft Musculoskeletal: Yes: WNL Extremities: Yes: WNL Neurological: Yes: Alert, Pre-Existing Deficit Psychiatric: Yes: Alert Labs: CBC, BMP 12/18/17 06:00 12/18/17 06:00 Problem List - Problems (1) Leukocytosis Assessment/Plan: -ID on board -IV abx -UC pending -tylenol for fever > 100.0F Code(s): D72.829 - ELEVATED WHITE BLOOD CELL COUNT, UNSPECIFIED (2) Abdominal pain Assessment/Plan: -RUQ -HIDA scan with EF -GI consult Code(s): R10.9 - UNSPECIFIED ABDOMINAL PAIN (3) COPD (chronic obstructive pulmonary disease) Assessment/Plan: -nasal o2 -bronchodilators Code(s): J44.9 - CHRONIC OBSTRUCTIVE PULMONARY DISEASE, UNSPECIFIED (4) Atrial fibrillation with rapid ventricular response Code(s): I48.91 - UNSPECIFIED ATRIAL FIBRILLATION (5) DVT (deep venous thrombosis) Code(s): I82.409 - ACUTE EMBOLISM AND THOMBOS UNSP DEEP VN UNSP LOWER EXTREMITY Qualifiers: DVT location: non-extremity vein Chronicity: unspecified Qualified Code(s ): I82.90 - Acute embolism and thrombosis of unspecified vein (6) H/O heart valve replacement with bioprosthetic valve Code(s): Z95.3 - PRESENCE OF XENOGENIC HEART VALVE (7) Pulmonary embolism Code(s): I26.99 - OTHER PULMONARY EMBOLISM WITHOUT ACUTE COR PULMONALE (8) Altered mental status Assessment/Plan: -neurology consult Code(s): R41.82 - ALTERED MENTAL STATUS, UNSPECIFIED (9) Hypokalemia Assessment/Plan: -on IVF with Kcl -KCL po x 1 -repeat labs in AM Code(s): E87.6 - HYPOKALEMIA Assessment/Plan see problem list -ON AC for afib, hx of DVT and PE-therapeutic -Daily INR's
--- NOTE | 2017-12-18 12:09 | CONS ---
INFECTIOUS DISEASE CONSULTATION DATE OF CONSULTATION: DATE OF DICTATION: 12/18/2017 REASON FOR CONSULTATION: This is a 77-year-old female with a history of a prosthetic aortic heart valve replacement, who I am asked to see for evaluation of right upper quadrant pain, with loss of appetite. HISTORY OF PRESENT ILLNESS: The patient has multiple comorbidities including congestive heart failure, hypertension, fatty liver disease, hypothyroidism, and had been discharged from [facility] for what was described as biliary colic. In October, she had been in the hospital here and been seen by GI for nausea and loss of appetite. Her ultrasound imaging showed multiple gallstones without pericholecystic fluid or thickening of the gallbladder wall. She had low-grade temperature here to 99.5, with an elevated white count, and I am asked to see her for this reason. She denies any nausea or vomiting currently. Does admit to abdominal pain, mostly in the right upper quadrant area. She has no GI bleeding, hematemesis and currently is off all antibiotics. She has a serious allergy to PENICILLIN with severe facial swelling. PAST MEDICAL HISTORY: As noted above. SOCIAL HISTORY: Lives with her daughter. No history of drug use, alcohol, smoking cigarettes. FAMILY HISTORY: Positive for mother with hypertension. SURGICAL HISTORY: Aortic prosthetic valve. REVIEW OF SYSTEMS: Respiratory: No cough, shortness of breath. Cardiac: No chest pain, palpitations. History of atrial fibrillation. Gastrointestinal: As noted in history of present illness. Genitourinary: No dysuria, hematuria, urinary frequency. PHYSICAL EXAMINATION: General: She was an alert female in no acute distress. Vital Signs: Temperature currently 99, pulse 84, blood pressure 124/77, respirations 18. Neck: Supple without adenopathy. Lungs: Clear to percussion and auscultation. Heart: S1, S2. Irregularly irregular rhythm without audible murmur. Abdomen: Positive bowel sounds. Soft with tenderness localized to the right upper quadrant. No Campo sign. No guarding or rebound. Extremities: No clubbing, cyanosis, or edema. LABORATORY DATA: The white count is 13.9, currently 11.7; hemoglobin 11.7; platelets 253. BUN 7, creatinine 0.6. Bilirubin 1.2. AST 12, alkaline phosphatase 63. Lipase 94, amylase 32. Urinalysis screening negative for leukocyte esterase. ASSESSMENT: A 77-year-old female with multiple comorbidities including status post prosthetic aortic heart valve, known gallstones on ultrasound, presents now with right upper quadrant pain consistent with possible biliary colic and/or acute cholecystitis. Given her multiple comorbidities and a prosthetic valve, I would empirically treat her with antibiotics for possible acute cholecystitis, obtain a set of blood cultures and a CRP, and call GI to see her for re-evaluation. I discussed the case with Dr. Granados who had seen her previously, who suggested that we treat with antibiotics. MARCELA CABALLERO M.D. [id number]
--- NOTE | 2017-12-18 12:25 | EKG ---
Test Reason : Blood Pressure : / mmHG Vent. Rate : 065 BPM Atrial Rate : 441 BPM P-R Int : 000 ms QRS Dur : 080 ms QT Int : 408 ms P-R-T Axes : 000 -38 -59 degrees QTc Int : 424 ms ATRIAL FIBRILLATION LEFT AXIS DEVIATION ANTERIOR INFARCT , AGE UNDETERMINED ABNORMAL ECG WHEN COMPARED WITH ECG OF 15-DEC-2017 23:05, NONSPECIFIC T WAVE ABNORMALITY HAS REPLACED INVERTED T WAVES IN LATERAL LEADS Confirmed by YUDELKA SLAUGHTER, SHARAD ([id number]) on 12/18/2017 12:25:22 PM Referred By: Confirmed By:SHARAD JHA MD
[2017-12-18] MEDS: ERTAPENEM SODIUM 1 GM in SODIUM CHLORIDE 100 ML IVPB SCH (12:56)
[2017-12-18] MEDS ORDERED: POTASSIUM CHLORIDE ORAL LIQUID 20 MEQ/15 ML PO ONE ×2 (16:30→17:30)
[2017-12-18] MEDS: WARFARIN NA 1 MG TABLET (FP) PO SCH (17:29)
[2017-12-18] MEDS: LOSARTAN POTASSIUM 25 MG TABLET PO SCH (17:29)
--- NOTE | 2017-12-18 18:09 | CON.GI ---
Consult Consult Specialty:: GI Reason for Consultation:: Cholelithiasis - History of Present Illness Chief Complaint: RQU abdominal pain History of Present Illness: 77 y/o F with PMH dementia, afib (on coumadin; s/p valve replacement), CHF, HTN , fatty liver disease, hypothyroidism, presented to ED with generalized weakness , decreased appetite, and poor intake and RUQ pain. Patient still complains of RUQ pain and tenderness on palpation associated with nausea and vomiting. 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 No: Diabetes Mellitus Additional Medical History: LEFT POPLITEAL DVT - Past Surgical History Past Surgical History: Yes: Tubal Ligation (laparoscopic), Valve Replacement ( mechanical mitral 2 wks ago) - Alcohol/Substance Use Hx Alcohol Use: No History of Substance Use: reports: None - Smoking History Smoking history: Never smoked Have you smoked in the past 12 months: No Aproximately how many cigarettes per day: 0 - Social History Usual Living Arrangement: Half-Way ADL: Independent History of Recent Travel: No <Katie Garcia - Last Filed: 12/18/17 18:10> - History of Present Illness Chief Complaint: r <Dev Granados - Last Filed: 12/18/17 19:10> Home Medications <Katie Garcia - Last Filed: 12/18/17 18:10> <Dev Granados - Last Filed: 12/18/17 19:10> - Allergies Allergies/Adverse Reactions: Allergies Allergy/AdvReac Type Severity Reaction Status Date / Time ampicillin [Ampicillin] Allergy Severe Swelling Verified 12/17/17 14:22 codeine [Codeine] Allergy Swelling Verified 12/17/17 14:22 - Home Medications Home Medications: Ambulatory Orders Diltiazem Cd [Cardizem Cd -] 360 mg PO DAILY tab 08/13/17 Aspirin [ASA -] 81 mg PO DAILY 09/28/17 Montelukast Na [Singulair -] 10 mg PO HS 09/28/17 Furosemide [Lasix -] 40 mg PO DAILY #30 tablet 10/03/17 Methimazole [Tapazole -] 5 mg PO AM tablet 11/05/17 Budesonide [Pulmicort 0.25 mg Nebulizer -] 1 amp IH BID 12/17/17 Digoxin 125 mcg PO HS 12/17/17 Donepezil HCl [Aricept] 5 mg PO HS 12/17/17 Hydralazine HCl 10 mg PO AM 12/17/17 Losartan Potassium 25 mg PO HS 12/17/17 Simvastatin 10 mg PO HS 12/17/17 Warfarin Sodium 4 mg PO HS 12/17/17 Warfarin Sodium [Coumadin] 3 mg PO Q2D 12/17/17 Family Disease History - Family Disease History Family Disease History: Diabetes: Father (HTN) <Katie Garcia Last Filed: 12/18/17 18:10> Physical Exam-GI Vital Signs: Vital Signs Temperature 99.3 F 12/18/17 17:00 Pulse Rate 76 12/18/17 17:00 Respiratory Rate 18 12/18/17 17:00 Blood Pressure 122/86 12/18/17 17:00 O2 Sat by Pulse Oximetry (%) 97 12/18/17 16:01 Constitutional: Yes: Well Nourished, No Distress, Calm Eyes: Yes: Conjunctiva Clear HENT: Yes: Atraumatic Cardiovascular: Yes: Regular Rate and Rhythm Respiratory: Yes: Regular, CTA Bilaterally ...Auscultate: Yes: Normoactive Bowel Sounds ...Palpate: Yes: Tenderness (RQU). No: Firm/Rigid, Guarding, Tenderness, Epigastium, Tenderness, Rebound Labs: CBC, BMP 12/18/17 06:00 12/18/17 06:00 INR, PTT INR 2.49 (0.82-1.09) H 12/18/17 06:00 <Katie Garcia Last Filed: 12/18/17 18:10> Vital Signs: Vital Signs Temperature 99.3 F 12/18/17 17:00 Pulse Rate 76 12/18/17 17:00 Respiratory Rate 18 12/18/17 17:00 Blood Pressure 122/86 12/18/17 17:00 O2 Sat by Pulse Oximetry (%) 97 12/18/17 16:01 Labs: CBC, BMP 12/18/17 06:00 12/18/17 06:00 INR, PTT INR 2.49 (0.82-1.09) H 12/18/17 06:00 Hepatic Panel Total Bilirubin 1.2 mg/dL (0.2-1.0) H D 12/18/17 06:00 AST 12 U/L (15-37) L 12/18/17 06:00 ALT < 6 U/L (12-78) L 12/18/17 06:00 Alkaline Phosphatase 63 U/L (45-117) 12/18/17 06:00 Albumin 2.7 g/dl (3.4-5.0) L 12/18/17 06:00 <Dev Granados - Last Filed: 12/18/17 19:10> Problem List - Problems (1) Cholelithiasis Code(s): K80.20 - CALCULUS OF GALLBLADDER W/O CHOLECYSTITIS W/O OBSTRUCTION <Dev Granados - Last Filed: 12/18/17 19:10>
[2017-12-18] MEDS: D5-1/2NS+20 MEQ KCL - 20 MEQ/1,000 ML INFUS.BAG IV SCH (18:54)
--- NOTE | 2017-12-18 19:16 | PN ---
Progress Note (short form) - Note Progress Note: Patient seen and examined, patient contineu to have RUQ pain,barely ate her food , possibly with Alzheimer's poor informant A> chronic cholecystitis R> discussed with Dr Oralia sue with EF to r/o gallbladder dyskenisia and chronic cholecystits continue antibiotics discussed with DEEP Garcia Problem List - Problems (1) Cholelithiasis Code(s): K80.20 - CALCULUS OF GALLBLADDER W/O CHOLECYSTITIS W/O OBSTRUCTION
[2017-12-18] MEDS ORDERED: DONEPEZIL HCL 5 MG TABLET (FP) PO SCH (22:00)
[2017-12-18] MEDS: ACETAMINOPHEN 325 MG TABLET (FP) PO PRN (22:16)
[2017-12-18] MEDS: MONTELUKAST NA 10 MG TABLET PO SCH (22:16)
[2017-12-19] MEDS: METHIMAZOLE 5 MG TABLET (FP) PO SCH (06:10)
[2017-12-19] MEDS: D5-1/2NS+20 MEQ KCL - 20 MEQ/1,000 ML INFUS.BAG IV SCH ×2 (06:15→19:14)
[2017-12-19 08:14] LABS: BASO % 0.5 % (0-2.0); EOS % 1.1 % (0-4.5); HEMATOCRIT 35.8 % (32.4-45.2); HEMOGLOBIN 11.7 GM/dL (10.7-15.3); LYMPH % 14.2 % (8-40); MCH 28.9 pg (25.7-33.7); MCHC 32.7 g/dl (32.0-36.0); MEAN CELL VOLUME 88.5 fl (80-96); MEAN PLT VOLUME 8.9 fl (7.5-11.1); MONO % 13.9 % (3.8-10.2); NEUT % 70.3 % (42.8-82.8); PLATELET COUNT 256 K/MM3 (134-434); RBC 4.04 M/mm3 (3.60-5.2); RDW 19.5 % (11.6-15.6)
[2017-12-19 08:37] LABS: INR 2.44 (0.82-1.09); PROTHROMBIN TIME (PATIENT) 27.6 SEC (9.98-11.88)
[2017-12-19 08:45] LABS: ALBUMIN 2.4 g/dl (3.4-5.0); ANION GAP 9 (8-16); BLOOD UREA NITROGEN 4 mg/dL (7-18); CALCIUM 8.2 mg/dL (8.5-10.1); CHLORIDE 108 mmol/L (98-107); CO2 25 mmol/L (21-32); CREATININE 0.6 mg/dL (0.55-1.02); GLUCOSE,RANDOM 116 mg/dL (74-106); POTASSIUM 3.6 mmol/L (3.5-5.1); SGOT/AST 12 U/L (15-37); SGPT/ALT < 6 U/L (12-78); SODIUM 142 mmol/L (136-145)
[2017-12-19 08:47] LABS: ALK PHOS 57 U/L (45-117); TOT PROT 5.4 g/dl (6.4-8.2)
--- NOTE | 2017-12-19 09:27 | CONSULT ---
Consult - text type - Consultation Consultation Note: Neurology History of Present Illness: 77 y/o F with PMH dementia, afib (on coumadin; s/p valve replacement), CHF, HTN , fatty liver disease, hypothyroidism, recently at [facility] (d/c yesterday for biliary colic), who was BIBEMS d/t weakness and lethargy. As per records, daughter stated pt was extremely weak and was "not being herself." Additionally , pt had decreased PO intake and decreased appetite during this time. Pt also endorses RUQ, inferior sternal pain over the past day. Stated that pain is similar to her biliary colic. Denies fever, chills, SOB, or changes in urinary or bowel function. Pt is a poor historian, and I was contacted for Dementia. CT head completed 12/15/17 reviewed and did not show acute changes, consistent with prior. She is able to tell me she's at [facility] but not able to tell me the date. Says "17" and then 1916. Was not able to tell me the month. Did tell me name of President, [place]. On Aricept 5mg daily at this time. 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 No: Diabetes Mellitus - Past Surgical History Past Surgical History: Yes: Tubal Ligation (laparoscopic), Valve Replacement ( mechanical mitral 2 wks ago) - Smoking History Smoking history: Never smoked Have you smoked in the past 12 months: No Aproximately how many cigarettes per day: 0 - Alcohol/Substance Use Hx Alcohol Use: No History of Substance Use: reports: None - Social History ADL: Independent History of Recent Travel: No Home Medications - Allergies Allergies/Adverse Reactions: Allergies Allergy/AdvReac Type Severity Reaction Status Date / Time ampicillin [Ampicillin] Allergy Severe Swelling Verified 12/17/17 14:22 codeine [Codeine] Allergy Swelling Verified 12/17/17 14:22 - Home Medications Home Medications: Ambulatory Orders Diltiazem Cd [Cardizem Cd -] 360 mg PO DAILY tab 08/13/17 Aspirin [ASA -] 81 mg PO DAILY 09/28/17 Montelukast Na [Singulair -] 10 mg PO HS 09/28/17 Furosemide [Lasix -] 40 mg PO DAILY #30 tablet 10/03/17 Methimazole [Tapazole -] 5 mg PO AM tablet 11/05/17 Budesonide [Pulmicort 0.25 mg Nebulizer -] 1 amp IH BID 12/17/17 Digoxin 125 mcg PO HS 12/17/17 Donepezil HCl [Aricept] 5 mg PO HS 12/17/17 Hydralazine HCl 10 mg PO AM 12/17/17 Losartan Potassium 25 mg PO HS 12/17/17 Simvastatin 10 mg PO HS 12/17/17 Warfarin Sodium 4 mg PO HS 12/17/17 Warfarin Sodium [Coumadin] 3 mg PO Q2D 12/17/17 Family Disease History - Family Disease History Family Disease History: Diabetes: Father (HTN) Physical Examination Vital Signs Period Temp Pulse Resp BP Sys/Urrutia Pulse Ox Last 24 Hr 98.1 F-99.3 F 76-88 16-20 104-129/65-86 97-97 Constitutional: Yes: Well Nourished, No Distress, Calm Cardiovascular: Yes: Regular Rate and Rhythm Respiratory: Yes: Regular Gastrointestinal: Yes: Normal Bowel Sounds, Soft Musculoskeletal: Yes: WNL Extremities: Yes: WNL Neurological: Awake, alert, does not know date, can tell me location and president, no CN deficits, strength intact, sensory intact, gait deferred Psychiatric: Yes: Alert Labs: CBCD WBC 8.0 K/mm3 (4.0-10.0) D 12/19/17 07:00 RBC 4.04 M/mm3 (3.60-5.2) 12/19/17 07:00 Hgb 11.7 GM/dL (10.7-15.3) 12/19/17 07:00 Hct 35.8 % (32.4-45.2) 12/19/17 07:00 MCV 88.5 fl (80-96) 12/19/17 07:00 MCHC 32.7 g/dl (32.0-36.0) 12/19/17 07:00 RDW 19.5 % (11.6-15.6) H 12/19/17 07:00 Plt Count 256 K/MM3 (134-434) 12/19/17 07:00 MPV 8.9 fl (7.5-11.1) 12/19/17 07:00 CMP Sodium 142 mmol/L (136-145) 12/19/17 07:00 Potassium 3.6 mmol/L (3.5-5.1) 12/19/17 07:00 Chloride 108 mmol/L (98-107) H 12/19/17 07:00 Carbon Dioxide 25 mmol/L (21-32) 12/19/17 07:00 Anion Gap 9 (8-16) 12/19/17 07:00 BUN 4 mg/dL (7-18) L 12/19/17 07:00 Creatinine 0.6 mg/dL (0.55-1.02) 12/19/17 07:00 Creat Clearance w eGFR > 60 (>60) 12/19/17 07:00 Calcium 8.2 mg/dL (8.5-10.1) L 12/19/17 07:00 Total Bilirubin 1.0 mg/dL (0.2-1.0) 12/19/17 07:00 AST 12 U/L (15-37) L 12/19/17 07:00 ALT < 6 U/L (12-78) L 12/19/17 07:00 Alkaline Phosphatase 57 U/L (45-117) 12/19/17 07:00 Total Protein 5.4 g/dl (6.4-8.2) L 12/19/17 07:00 Albumin 2.4 g/dl (3.4-5.0) L 12/19/17 07:00 CT head reviewed Plan 77 y/o F with PMH dementia, afib (on coumadin; s/p valve replacement), CHF, HTN , fatty liver disease, hypothyroidism, recently at [facility] (d/c yesterday for biliary colic), who was BIBEMS d/t weakness and lethargy. As per records, daughter stated pt was extremely weak and was "not being herself." Additionally , pt had decreased PO intake and decreased appetite during this time. Pt also endorses RUQ, inferior sternal pain over the past day. Stated that pain is similar to her biliary colic. I was contacted for Dementia. CT head completed 12/15/17 reviewed and did not show acute changes, consistent with prior. She is able to tell me she's at [facility] but not able to tell me the date. Says "17" and then 1916. Does not know month, knows name of President Would treat underlying dehydration Increased PO intake Gi evaluation Monitor Afib, on coumadin On Aricept 5mg daily at this time. Increase to 10mg Likely delirium on superimposed dementia and therefore would treat underlying issues first but does appear to have progressive cognitive decline and therefore may benefit from increased Aricept
--- NOTE | 2017-12-19 09:35 | PN ---
Progress Note (short form) - Note Progress Note: resting comfortably in bed no complaints Vital Signs Period Temp Pulse Resp BP Sys/Urrutia Pulse Ox Last 24 Hr 98.1 F-99.3 F 76-88 16-20 104-129/65-86 97-97 cor-rrr lungs clear abd +ruq discomfort on exam ext no edema CBC, BMP 12/19/17 07:00 12/19/17 07:00 Microbiology 12/17/17 18:52 Urine - Urine - Catheterized Urine Culture - Final NO GROWTH OBTAINED 12/17/17 22:00 Blood - Peripheral Venous Blood Culture - Preliminary NO GROWTH OBTAINED AFTER 24 HOURS, INCUBATION TO CONTINUE FOR 4 DAYS. 12/17/17 21:15 Blood - Peripheral Venous Blood Culture - Preliminary NO GROWTH OBTAINED AFTER 24 HOURS, INCUBATION TO CONTINUE FOR 4 DAYS. a/p RUQ pain- r/o cholycystitis for hida scan today continue ertapenem (pen allergy) prosthetic AVR
[2017-12-19] MEDS ORDERED: ALBUTEROL SO4 2.5/IPRATROPIUM 0.5 INH SOL 3 ML VIAL.NEB. NEB PRN (10:14)
--- NOTE | 2017-12-19 10:17 | PN ---
Progress Note, Physician Chief Complaint: Weakness, RUQ abdominal pain History of Present Illness: NAD, walked with Physical Therapy seen by ID, GI and Neurology IV abx Awaiting HIDA scan On warfarin-therapeutic - Current Medication List Current Medications: Active Medications Acetaminophen (Tylenol -) 650 mg PO Q4H PRN PRN Reason: FEVER Last Admin: 12/18/17 22:16 Dose: 650 mg Aspirin (Asa -) 81 mg PO DAILY [facility] Last Admin: 12/18/17 09:44 Dose: 81 mg Digoxin (Lanoxin -) 0.125 mg PO DAILY [facility] Last Admin: 12/18/17 09:44 Dose: 0.125 mg Diltiazem HCl (Cardizem Cd -) 360 mg PO DAILY [facility] Last Admin: 12/18/17 09:44 Dose: 360 mg Donepezil HCl (Aricept -) 10 mg PO [facility] Potassium Chloride/Dextrose/Sod Cl (D5-1/2ns+20 Meq Kcl -) 20 meq in 1,000 mls @ 75 mls/hr IV ASDIR [facility] Last Admin: 12/19/17 06:15 Dose: 75 mls/hr Ertapenem 1 gm/ Sodium (Chloride) 100 mls @ 200 mls/hr IVPB DAILY [facility] PRN Reason: Protocol Last Admin: 12/18/17 12:56 Dose: 200 mls/hr Losartan Potassium (Cozaar -) 25 mg PO DAILY@1800 [facility] Last Admin: 12/18/17 17:29 Dose: 25 mg Methimazole (Tapazole -) 5 mg PO AM [facility] Last Admin: 12/19/17 06:10 Dose: 5 mg Montelukast Sodium (Singulair -) 10 mg PO [facility] Last Admin: 12/18/17 22:16 Dose: 10 mg Warfarin Sodium (Coumadin -) 1 mg PO DAILY@1800 [facility] Last Admin: 12/18/17 17:29 Dose: 1 mg - Objective Vital Signs: Vital Signs Temperature 98.2 F 12/19/17 07:43 Pulse Rate 78 12/19/17 07:43 Respiratory Rate 20 12/19/17 07:43 Blood Pressure 129/83 12/19/17 07:43 O2 Sat by Pulse Oximetry (%) 97 12/18/17 22:00 Constitutional: Yes: Well Nourished, No Distress, Calm Cardiovascular: Yes: Regular Rate and Rhythm Respiratory: Yes: Regular Gastrointestinal: Yes: Normal Bowel Sounds, Soft, Tenderness (RUQ) Musculoskeletal: Yes: Muscle Weakness Extremities: Yes: WNL Edema: No Peripheral Pulses WNL: Yes Neurological: Yes: Alert, Pre-Existing Deficit Psychiatric: Yes: Alert Labs: CBC, BMP 12/19/17 07:00 12/19/17 07:00 INR, PTT INR 2.44 (0.82-1.09) H 12/19/17 07:00 Problem List - Problems (1) Leukocytosis Assessment/Plan: -improved -ID on board -IV abx -UC/BC negative -tylenol for fever > 100.0F Code(s): D72.829 - ELEVATED WHITE BLOOD CELL COUNT, UNSPECIFIED (2) Abdominal pain Assessment/Plan: -RUQ -HIDA scan with EF -GI consult Code(s): R10.9 - UNSPECIFIED ABDOMINAL PAIN (3) COPD (chronic obstructive pulmonary disease) Assessment/Plan: -nasal o2 -bronchodilators Code(s): J44.9 - CHRONIC OBSTRUCTIVE PULMONARY DISEASE, UNSPECIFIED (4) Atrial fibrillation with rapid ventricular response Code(s): I48.91 - UNSPECIFIED ATRIAL FIBRILLATION (5) DVT (deep venous thrombosis) Code(s): I82.409 - ACUTE EMBOLISM AND THOMBOS UNSP DEEP VN UNSP LOWER EXTREMITY Qualifiers: DVT location: non-extremity vein Chronicity: unspecified Qualified Code(s ): I82.90 - Acute embolism and thrombosis of unspecified vein (6) H/O heart valve replacement with bioprosthetic valve Code(s): Z95.3 - PRESENCE OF XENOGENIC HEART VALVE (7) Pulmonary embolism Code(s): I26.99 - OTHER PULMONARY EMBOLISM WITHOUT ACUTE COR PULMONALE (8) Altered mental status Assessment/Plan: -neurology consult appreciated -Aricept increased to 10 mg po daily Code(s): R41.82 - ALTERED MENTAL STATUS, UNSPECIFIED (9) Hypokalemia Assessment/Plan: -resolved -on IVF with Kcl Code(s): E87.6 - HYPOKALEMIA Assessment/Plan see problem list -ON AC for afib, hx of DVT and PE-therapeutic -Daily INR's
[2017-12-19] MEDS ORDERED: PT OWN MED DRAWER 7, Y5N ONE (10:30)
[2017-12-19] MEDS: ASPIRIN 81 MG CHEWABLE TABLETS PO SCH (10:31)
[2017-12-19] MEDS: ERTAPENEM SODIUM 1 GM in SODIUM CHLORIDE 100 ML IVPB SCH (10:31)
[2017-12-19] MEDS: DIGOXIN 0.125 MG TABLET (FP) PO SCH (10:32)
--- NOTE | 2017-12-19 15:00 | PN ---
Progress Note (short form) - Note Progress Note: patient off the unit for HIDA scan, Nurse Giles reported that patient denied abdominal pain, nausea and vomiting throughout the day, was NPO for procedure.
--- NOTE | 2017-12-19 16:44 | PN ---
Progress Note, Physician Chief Complaint: Abdominal pain History of Present Illness: patient in bed s/p HIDA scan, she reports persistent abdominal pain on palpation , no nausea, no vomiting. - Current Medication List Current Medications: Active Medications Acetaminophen (Tylenol -) 650 mg PO Q4H PRN PRN Reason: FEVER Last Admin: 12/18/17 22:16 Dose: 650 mg Albuterol/Ipratropium (Duoneb -) 1 amp NEB Q6H PRN PRN Reason: SHORTNESS OF BREATH Aspirin (Asa -) 81 mg PO DAILY [facility] Last Admin: 12/19/17 10:31 Dose: 81 mg Digoxin (Lanoxin -) 0.125 mg PO DAILY [facility] Last Admin: 12/19/17 10:32 Dose: 0.125 mg Diltiazem HCl (Cardizem Cd -) 360 mg PO DAILY [facility] Last Admin: 12/19/17 10:31 Dose: 360 mg Donepezil HCl (Aricept -) 10 mg PO HS [facility] Potassium Chloride/Dextrose/Sod Cl (D5-1/2ns+20 Meq Kcl -) 20 meq in 1,000 mls @ 75 mls/hr IV ASDIR [facility] Last Admin: 12/19/17 06:15 Dose: 75 mls/hr Ertapenem 1 gm/ Sodium (Chloride) 100 mls @ 200 mls/hr IVPB DAILY [facility] PRN Reason: Protocol Last Admin: 12/19/17 10:31 Dose: 200 mls/hr Losartan Potassium (Cozaar -) 25 mg PO DAILY@1800 [facility] Last Admin: 12/18/17 17:29 Dose: 25 mg Methimazole (Tapazole -) 5 mg PO AM [facility] Last Admin: 12/19/17 06:10 Dose: 5 mg Montelukast Sodium (Singulair -) 10 mg PO HS [facility] Last Admin: 12/18/17 22:16 Dose: 10 mg Warfarin Sodium (Coumadin -) 1 mg PO DAILY@1800 [facility] Last Admin: 12/18/17 17:29 Dose: 1 mg - Objective Vital Signs: Vital Signs Temperature 99.4 F 12/19/17 15:32 Pulse Rate 73 12/19/17 15:32 Respiratory Rate 16 12/19/17 15:32 Blood Pressure 89/56 12/19/17 15:32 O2 Sat by Pulse Oximetry (%) 93 L 12/19/17 10:00 Constitutional: Yes: Well Nourished, No Distress, Calm Eyes: Yes: Conjunctiva Clear HENT: Yes: Atraumatic Cardiovascular: Yes: Regular Rate and Rhythm Respiratory: Yes: Regular, CTA Bilaterally Gastrointestinal: Yes: Normal Bowel Sounds, Soft, Tenderness (RQU), Tenderness, Epigastrium. No: Distention, Rectal Bleeding, Tenderness, Rebound, Vomiting Neurological: Yes: Alert Labs: CBC, BMP 12/19/17 07:00 12/19/17 07:00 INR, PTT INR 2.44 (0.82-1.09) H 12/19/17 07:00 Problem List - Problems (1) Abdominal pain Code(s): R10.9 - UNSPECIFIED ABDOMINAL PAIN Qualifiers: Abdominal location: right upper quadrant Qualified Code(s): R10.11 - Right upper quadrant pain (2) Cholelithiasis Assessment/Plan: Recommendations: 1) continue antibiotic Code(s): K80.20 - CALCULUS OF GALLBLADDER W/O CHOLECYSTITIS W/O OBSTRUCTION
[2017-12-19] MEDS: LOSARTAN POTASSIUM 25 MG TABLET PO SCH (17:12)
[2017-12-19] MEDS: WARFARIN NA 1 MG TABLET (FP) PO SCH (17:12)
--- NOTE | 2017-12-19 19:03 | CONSULT ---
Consult Consult Specialty:: endocrine Referred by:: lin escobar np Reason for Consultation:: hyperthyroidism - History of Present Illness Chief Complaint: abdominal pain History of Present Illness: 77 y/o F with PMH dementia, afib (on coumadin; s/p valve replacement), CHF, HTN , fatty liver disease, hypothyroidism, recently presented to er for biliary colic), who was BIBEMS d/t weakness and lethargy since yesterday. 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 No: Diabetes Mellitus Additional Medical History: LEFT POPLITEAL DVT - Past Surgical History Past Surgical History: Yes: Tubal Ligation (laparoscopic), Valve Replacement ( mechanical mitral 2 wks ago) - Alcohol/Substance Use Hx Alcohol Use: No History of Substance Use: reports: None - Smoking History Smoking history: Never smoked Have you smoked in the past 12 months: No Aproximately how many cigarettes per day: 0 - Social History Usual Living Arrangement: Residential ADL: Independent History of Recent Travel: No Home Medications - Allergies Allergies/Adverse Reactions: Allergies Allergy/AdvReac Type Severity Reaction Status Date / Time ampicillin [Ampicillin] Allergy Severe Swelling Verified 12/17/17 14:22 codeine [Codeine] Allergy Swelling Verified 12/17/17 14:22 - Home Medications Home Medications: Ambulatory Orders Diltiazem Cd [Cardizem Cd -] 360 mg PO DAILY tab 08/13/17 Aspirin [ASA -] 81 mg PO DAILY 09/28/17 Montelukast Na [Singulair -] 10 mg PO HS 09/28/17 Furosemide [Lasix -] 40 mg PO DAILY #30 tablet 10/03/17 Methimazole [Tapazole -] 5 mg PO AM tablet 11/05/17 Budesonide [Pulmicort 0.25 mg Nebulizer -] 1 amp IH BID 12/17/17 Digoxin 125 mcg PO HS 12/17/17 Donepezil HCl [Aricept] 5 mg PO HS 12/17/17 Hydralazine HCl 10 mg PO AM 12/17/17 Losartan Potassium 25 mg PO HS 12/17/17 Simvastatin 10 mg PO HS 12/17/17 Warfarin Sodium 4 mg PO HS 12/17/17 Warfarin Sodium [Coumadin] 3 mg PO Q2D 12/17/17 Family Disease History - Family Disease History Family Disease History: Diabetes: Father (HTN) Review of Systems - Review of Systems Constitutional: reports: Lethargy, Weakness Eyes: reports: No Symptoms HENT: reports: No Symptoms Neck: reports: Pain on Movement Cardiovascular: reports: Shortness of Breath Respiratory: reports: Exercise Intolerance Gastrointestinal: reports: Abdominal Pain, Constipation Genitourinary: reports: No Symptoms Breasts: reports: No Symptoms Reported Musculoskeletal: reports: Back Pain, Joint Swelling, Muscle Pain, Muscle Cramps Integumentary: reports: No Symptoms Neurological: reports: Numbness, Unsteady Gait, Weakness Endocrine: reports: Intolerance to Heat Hematology/Lymphatic: reports: No Symptoms Physical Exam Vital Signs: Vital Signs Temperature 98.1 F 12/19/17 16:30 Pulse Rate 64 12/19/17 16:30 Respiratory Rate 20 12/19/17 16:30 Blood Pressure 129/80 12/19/17 16:30 O2 Sat by Pulse Oximetry (%) 93 L 12/19/17 10:00 Constitutional: Yes: Anxious Eyes: Yes: EOM Intact HENT: Yes: Normocephalic Neck: Yes: Trachea Midline Cardiovascular: Yes: Pulse Irregular Respiratory: Yes: Rales, SOB on Exertion Gastrointestinal: Yes: Normal Bowel Sounds ...Rectal Exam: Yes: Deferred Renal/: Yes: WNL Breast(s): Yes: WNL Musculoskeletal: Yes: Muscle Pain, Muscle Weakness Extremities: Yes: WNL Neurological: Yes: Alert, Weakness Labs: CBC, BMP 12/19/17 07:00 12/19/17 07:00 Problem List - Problems (1) Abdominal pain Code(s): R10.9 - UNSPECIFIED ABDOMINAL PAIN Qualifiers: Abdominal location: right upper quadrant Qualified Code(s): R10.11 - Right upper quadrant pain (2) Cholelithiasis Code(s): K80.20 - CALCULUS OF GALLBLADDER W/O CHOLECYSTITIS W/O OBSTRUCTION (3) Weakness Code(s): R53.1 - WEAKNESS (4) Acute asthma exacerbation Code(s): J45.901 - UNSPECIFIED ASTHMA WITH (ACUTE) EXACERBATION Qualifiers: Assessment/Plan Current Active Problems Abdominal pain (Acute) Abdominal pain (Acute) Cholelithiasis (Acute) Cholelithiasis (Acute) Leukocytosis (Acute) Weakness (Acut hyperthyroidism chf afib dementia Abnormal Lab Results 12/19/17 12/19/17 12/19/17 07:00 07:00 07:00 RDW 19.5 H Monocytes % 13.9 H PT with INR 27.60 H INR 2.44 H Chloride 108 H BUN 4 L Random Glucose 116 H Calcium 8.2 L AST 12 L ALT < 6 L Total Protein 5.4 L Albumin 2.4 L Laboratory Results - last 24 hr 12/19/17 12/19/17 12/19/17 07:00 07:00 07:00 WBC 8.0 D RBC 4.04 Hgb 11.7 Hct 35.8 MCV 88.5 MCH 28.9 MCHC 32.7 RDW 19.5 H Plt Count 256 MPV 8.9 Neutrophils % 70.3 Lymphocytes % 14.2 Monocytes % 13.9 H Eosinophils % 1.1 D Basophils % 0.5 PT with INR 27.60 H INR 2.44 H Sodium 142 Potassium 3.6 Chloride 108 H Carbon Dioxide 25 Anion Gap 9 BUN 4 L Creatinine 0.6 Creat Clearance w eGFR > 60 Random Glucose 116 H Calcium 8.2 L Total Bilirubin 1.0 AST 12 L ALT < 6 L Alkaline Phosphatase 57 Total Protein 5.4 L Albumin 2.4 L hyperthyroidism continue tapazole 10mg daily po check tsh free t4
[2017-12-19] MEDS: MONTELUKAST NA 10 MG TABLET PO SCH (21:12)
[2017-12-19] MEDS: DONEPEZIL HCL 10 MG TABLET (FP) PO SCH (21:12)
[2017-12-20] MEDS: METHIMAZOLE 5 MG TABLET (FP) PO SCH (06:50)
[2017-12-20 08:02] LABS: INR 2.27 (0.82-1.09); PROTHROMBIN TIME (PATIENT) 25.7 SEC (9.98-11.88)
[2017-12-20 08:08] LABS: BASO % 0.7 % (0-2.0); HEMATOCRIT 32.8 % (32.4-45.2); LYMPH % 21.3 % (8-40); MCH 29.3 pg (25.7-33.7); MCHC 33.6 g/dl (32.0-36.0); MEAN CELL VOLUME 87.4 fl (80-96); MEAN PLT VOLUME 8.9 fl (7.5-11.1); MONO % 14.2 % (3.8-10.2); NEUT % 62.8 % (42.8-82.8); PLATELET COUNT 253 K/MM3 (134-434); RBC 3.75 M/mm3 (3.60-5.2); RDW 19.6 % (11.6-15.6); WHITE BLOOD COUNT 7.8 K/mm3 (4.0-10.0)
[2017-12-20 08:11] LABS: CHLORIDE 107 mmol/L (98-107); POTASSIUM 3.9 mmol/L (3.5-5.1); SODIUM 141 mmol/L (136-145)
[2017-12-20 08:41] LABS: ALBUMIN 2.4 g/dl (3.4-5.0); ALK PHOS 58 U/L (45-117); ANION GAP 13 (8-16); BILIRUBIN,TOTAL 0.9 mg/dL (0.2-1.0); BLOOD UREA NITROGEN 5 mg/dL (7-18); CALCIUM 8.6 mg/dL (8.5-10.1); CO2 21 mmol/L (21-32); CREATININE 0.5 mg/dL (0.55-1.02); GLUCOSE,RANDOM 99 mg/dL (74-106); SGOT/AST 14 U/L (15-37); SGPT/ALT < 6 U/L (12-78); TOT PROT 5.3 g/dl (6.4-8.2)
[2017-12-20] MEDS: DIGOXIN 0.125 MG TABLET (FP) PO SCH (10:02)
[2017-12-20] MEDS: ASPIRIN 81 MG CHEWABLE TABLETS PO SCH (10:02)
--- NOTE | 2017-12-20 10:18 | PN ---
Progress Note, Physician - Current Medication List Current Medications: Active Medications Acetaminophen (Tylenol -) 650 mg PO Q4H PRN PRN Reason: FEVER Last Admin: 12/18/17 22:16 Dose: 650 mg Albuterol/Ipratropium (Duoneb -) 1 amp NEB Q6H PRN PRN Reason: SHORTNESS OF BREATH Aspirin (Asa -) 81 mg PO DAILY [facility] Last Admin: 12/20/17 10:02 Dose: 81 mg Digoxin (Lanoxin -) 0.125 mg PO DAILY [facility] Last Admin: 12/20/17 10:02 Dose: 0.125 mg Diltiazem HCl (Cardizem Cd -) 360 mg PO DAILY [facility] Last Admin: 12/20/17 10:02 Dose: 360 mg Donepezil HCl (Aricept -) 10 mg PO [facility] Last Admin: 12/19/17 21:12 Dose: 10 mg Potassium Chloride/Dextrose/Sod Cl (D5-1/2ns+20 Meq Kcl -) 20 meq in 1,000 mls @ 75 mls/hr IV ASDIR [facility] Last Admin: 12/19/17 19:14 Dose: Not Given Ertapenem 1 gm/ Sodium (Chloride) 100 mls @ 200 mls/hr IVPB DAILY [facility] PRN Reason: Protocol Last Admin: 12/19/17 10:31 Dose: 200 mls/hr Losartan Potassium (Cozaar -) 25 mg PO DAILY@1800 [facility] Last Admin: 12/19/17 17:12 Dose: 25 mg Methimazole (Tapazole -) 10 mg PO AM [facility] Last Admin: 12/20/17 06:50 Dose: 10 mg Montelukast Sodium (Singulair -) 10 mg PO HS [facility] Last Admin: 12/19/17 21:12 Dose: 10 mg Warfarin Sodium (Coumadin -) 1 mg PO DAILY@1800 [facility] Last Admin: 12/19/17 17:12 Dose: 1 mg - Objective Vital Signs: Vital Signs Temperature 98.0 F 12/20/17 05:54 Pulse Rate 78 12/20/17 10:02 Respiratory Rate 20 12/20/17 05:54 Blood Pressure 149/91 12/20/17 05:54 O2 Sat by Pulse Oximetry (%) 95 12/19/17 22:00 Cardiovascular: Yes: S1, S2 Respiratory: Yes: Regular, CTA Bilaterally Gastrointestinal: Yes: Normal Bowel Sounds, Soft Labs: CBC, BMP 12/20/17 06:00 12/20/17 06:00 INR, PTT INR 2.27 (0.82-1.09) H 12/20/17 06:00 Assessment/Plan - Problems (1) Leukocytosis Assessment/Plan: -improved -ID on board -IV abx -UC/BC negative -tylenol for fever > 100.0F Code(s): D72.829 - ELEVATED WHITE BLOOD CELL COUNT, UNSPECIFIED (2) Abdominal pain Assessment/Plan: -RUQ -HIDA scan with Enoted--nl -GI consult Code(s): R10.9 - UNSPECIFIED ABDOMINAL PAIN (3) COPD (chronic obstructive pulmonary disease) Assessment/Plan: -nasal o2 -bronchodilators Code(s): J44.9 - CHRONIC OBSTRUCTIVE PULMONARY DISEASE, UNSPECIFIED (4) Atrial fibrillation with rapid ventricular response Code(s): I48.91 - UNSPECIFIED ATRIAL FIBRILLATION (5) DVT (deep venous thrombosis) Code(s): I82.409 - ACUTE EMBOLISM AND THOMBOS UNSP DEEP VN UNSP LOWER EXTREMITY Qualifiers: DVT location: non-extremity vein Chronicity: unspecified Qualified Code(s ): I82.90 - Acute embolism and thrombosis of unspecified vein (6) H/O heart valve replacement with bioprosthetic valve Code(s): Z95.3 - PRESENCE OF XENOGENIC HEART VALVE (7) Pulmonary embolism Code(s): I26.99 - OTHER PULMONARY EMBOLISM WITHOUT ACUTE COR PULMONALE (8) Altered mental status Assessment/Plan: -neurology consult appreciated -Aricept increased to 10 mg po daily Code(s): R41.82 - ALTERED MENTAL STATUS, UNSPECIFIED (9) Hypokalemia Assessment/Plan: -resolved -on IVF with Kcl Code(s): E87.6 - HYPOKALEMIA Assessment/Plan see problem list -ON AC for afib, hx of DVT and PE-therapeutic -Daily INR's
[2017-12-20] MEDS: ERTAPENEM SODIUM 1 GM in SODIUM CHLORIDE 100 ML IVPB SCH ×2 (11:22→20:42)
[2017-12-20] MEDS: ALBUTEROL SO4 2.5/IPRATROPIUM 0.5 INH SOL 3 ML VIAL.NEB. NEB SCH ×2 (16:33→21:40)
[2017-12-20] MEDS: LOSARTAN POTASSIUM 25 MG TABLET PO SCH (17:24)
[2017-12-20] MEDS: WARFARIN NA 1 MG TABLET (FP) PO SCH (17:24)
[2017-12-20 19:19] LABS: URINE APPEARANCE CLOUDY; URINE BILIRUBIN NEGATIVE (NEGATIVE); URINE BLOOD NEGATIVE (NEGATIVE); URINE COLOR AMBER; URINE GLUCOSE (UA) 1+ (NEGATIVE); URINE KETONE TRACE (NEGATIVE); URINE NITRITE NEGATIVE (NEGATIVE); URINE UROBILINOGEN 4.0 E.U/dl mg/dL (0.2-1.0)
[2017-12-20 19:21] LABS: URINE LEUK ESTERASE 3+ (NEGATIVE); URINE PROTEIN 2+ (NEGATIVE)
[2017-12-20 19:24] LABS: CALCIUM OXALATE CRYSTALS MANY /hpf (NONE SEEN); EPI CELLS MANY /HPF (FEW); URINE BACTERIA RARE /hpf (NONE SEEN); URINE MUCUS MANY; YEAST RARE
[2017-12-20 19:26] LABS: AMORP URATES MANY /hpf (NONE SEEN)
--- NOTE | 2017-12-20 19:39 | PN ---
GI Progress Note Subjective: denies abdominal gregory, HIDA low ejection fraction secondary to chronic cholecystitis, poor appetite, Alzheimer's disease - Objective Vital Signs: Vital Signs Temperature 98.2 F 12/20/17 18:27 Pulse Rate 72 12/20/17 18:27 Respiratory Rate 18 12/20/17 18:27 Blood Pressure 116/60 12/20/17 18:27 O2 Sat by Pulse Oximetry (%) 95 12/20/17 10:00 Constitutional: Well Nourished Eyes: Yes: Conjunctiva Clear HENT: Yes: Atraumatic Cardiovascular: Yes: Regular Rate and Rhythm Respiratory: Yes: CTA Bilaterally ...Palpate: Yes: Soft. No: Firm/Rigid, Guarding, Hepatomegaly, Mass, Pulsatile Mass, Splenomegaly Labs: CBC, BMP 12/20/17 06:00 12/20/17 06:00 INR, PTT INR 2.27 (0.82-1.09) H 12/20/17 06:00 Problem List - Problems (1) Cholelithiasis Code(s): K80.20 - CALCULUS OF GALLBLADDER W/O CHOLECYSTITIS W/O OBSTRUCTION (2) Chronic cholecystitis Assessment/Plan: continue antibiotics ,patients daughter wants conservative management only Code(s): K81.1 - CHRONIC CHOLECYSTITIS (3) Poor appetite Assessment/Plan: Megace 40mg daily Code(s): R63.0 - ANOREXIA
[2017-12-20] MEDS: DONEPEZIL HCL 10 MG TABLET (FP) PO SCH (21:40)
[2017-12-20] MEDS: MONTELUKAST NA 10 MG TABLET PO SCH (21:40)
[2017-12-21] MEDS: METHIMAZOLE 5 MG TABLET (FP) PO SCH (06:09)
[2017-12-21] MEDS: ALBUTEROL SO4 2.5/IPRATROPIUM 0.5 INH SOL 3 ML VIAL.NEB. NEB SCH ×4 (08:20→20:38)
[2017-12-21 08:30] LABS: ALBUMIN 2.6 g/dl (3.4-5.0); ANION GAP 13 (8-16); BLOOD UREA NITROGEN 5 mg/dL (7-18); CALCIUM 8.6 mg/dL (8.5-10.1); CHLORIDE 107 mmol/L (98-107); CO2 23 mmol/L (21-32); GLUCOSE,RANDOM 88 mg/dL (74-106); SGOT/AST 14 U/L (15-37); SGPT/ALT < 6 U/L (12-78); SODIUM 143 mmol/L (136-145)
[2017-12-21 08:34] LABS: ALK PHOS 65 U/L (45-117); BILIRUBIN,TOTAL 0.8 mg/dL (0.2-1.0); CREATININE 0.6 mg/dL (0.55-1.02); EOS % 0.8 % (0-4.5); HEMATOCRIT 35.2 % (32.4-45.2); HEMOGLOBIN 11.4 GM/dL (10.7-15.3); LYMPH % 20.8 % (8-40); MCH 28.6 pg (25.7-33.7); MCHC 32.3 g/dl (32.0-36.0); MEAN CELL VOLUME 88.5 fl (80-96); MONO % 12.8 % (3.8-10.2); NEUT % 64.6 % (42.8-82.8); PLATELET COUNT 276 K/MM3 (134-434); RBC 3.98 M/mm3 (3.60-5.2); RDW 19.8 % (11.6-15.6); TOT PROT 5.7 g/dl (6.4-8.2); WHITE BLOOD COUNT 7.4 K/mm3 (4.0-10.0)
[2017-12-21 08:48] LABS: INR 1.82 (0.82-1.09); PROTHROMBIN TIME (PATIENT) 20.6 SEC (9.98-11.88)
[2017-12-21] MEDS: DIGOXIN 0.125 MG TABLET (FP) PO SCH (09:41)
[2017-12-21] MEDS: ASPIRIN 81 MG CHEWABLE TABLETS PO SCH (09:41)
[2017-12-21] MEDS: ERTAPENEM SODIUM 1 GM in SODIUM CHLORIDE 100 ML IVPB SCH (09:41)
[2017-12-21] MEDS: MEGESTROL ACETATE 40 MG TABLET PO SCH (09:42)
[2017-12-21] MEDS: VITAMIN B COMPLEX W/C COMBO TABLET (FP) PO SCH (09:42)
--- NOTE | 2017-12-21 10:12 | PN ---
Progress Note, Physician - Current Medication List Current Medications: Active Medications Acetaminophen (Tylenol -) 650 mg PO Q4H PRN PRN Reason: FEVER Last Admin: 12/18/17 22:16 Dose: 650 mg Albuterol/Ipratropium (Duoneb -) 1 amp NEB RQID [facility] [place] Last Admin: 12/21/17 08:20 Dose: 1 amp Aspirin (Asa -) 81 mg PO DAILY [facility] [place] Last Admin: 12/21/17 09:41 Dose: 81 mg Digoxin (Lanoxin -) 0.125 mg PO DAILY [facility] [place] Last Admin: 12/21/17 09:41 Dose: 0.125 mg Diltiazem HCl (Cardizem Cd -) 360 mg PO DAILY [facility] [place] Last Admin: 12/21/17 09:41 Dose: 360 mg Donepezil HCl (Aricept -) 10 mg PO HS [facility] [place] Last Admin: 12/20/17 21:40 Dose: 10 mg Ertapenem 1 gm/ Sodium (Chloride) 100 mls @ 200 mls/hr IVPB DAILY [facility] [place] PRN Reason: Protocol Last Admin: 12/21/17 09:41 Dose: 200 mls/hr Losartan Potassium (Cozaar -) 25 mg PO DAILY@1800 [facility] [place] Last Admin: 12/20/17 17:24 Dose: 25 mg Megestrol Acetate (Megace -) 40 mg PO DAILY [facility] [place] Last Admin: 12/21/17 09:42 Dose: 40 mg Methimazole (Tapazole -) 10 mg PO AM [facility] [place] Last Admin: 12/21/17 06:09 Dose: 10 mg Montelukast Sodium (Singulair -) 10 mg PO HS [facility] [place] Last Admin: 12/20/17 21:40 Dose: 10 mg Multivitamins (Total B With C -) 1 each PO DAILY [facility] [place] Last Admin: 12/21/17 09:42 Dose: 1 each Warfarin Sodium (Coumadin -) 1 mg PO DAILY@1800 [facility] [place] Last Admin: 12/20/17 17:24 Dose: 1 mg - Objective Vital Signs: Vital Signs Temperature 97.8 F 12/21/17 10:00 Pulse Rate 87 12/21/17 10:00 Respiratory Rate 18 12/21/17 10:00 Blood Pressure 125/71 12/21/17 10:00 O2 Sat by Pulse Oximetry (%) 97 12/20/17 22:00 Cardiovascular: Yes: S1, S2 Respiratory: Yes: Regular, CTA Bilaterally Gastrointestinal: Yes: Normal Bowel Sounds, Soft Labs: CBC, BMP 12/21/17 06:48 12/21/17 06:48 INR, PTT INR 1.82 (0.82-1.09) H 12/21/17 06:48 Assessment/Plan - Problems (1) Leukocytosis Assessment/Plan: -improved -ID on board -off IV abx -UC/BC negative -tylenol for fever > 100.0F Code(s): D72.829 - ELEVATED WHITE BLOOD CELL COUNT, UNSPECIFIED (2) Abdominal pain Assessment/Plan: -RUQ -HIDA scan with EF noted--nl -GI consult Code(s): R10.9 - UNSPECIFIED ABDOMINAL PAIN (3) COPD (chronic obstructive pulmonary disease) Assessment/Plan: -nasal o2 -bronchodilators Code(s): J44.9 - CHRONIC OBSTRUCTIVE PULMONARY DISEASE, UNSPECIFIED (4) Atrial fibrillation with rapid ventricular response Code(s): I48.91 - UNSPECIFIED ATRIAL FIBRILLATION (5) DVT (deep venous thrombosis) Code(s): I82.409 - ACUTE EMBOLISM AND THOMBOS UNSP DEEP VN UNSP LOWER EXTREMITY Qualifiers: DVT location: non-extremity vein Chronicity: unspecified Qualified Code(s ): I82.90 - Acute embolism and thrombosis of unspecified vein (6) H/O heart valve replacement with bioprosthetic valve Code(s): Z95.3 - PRESENCE OF XENOGENIC HEART VALVE (7) Pulmonary embolism Code(s): I26.99 - OTHER PULMONARY EMBOLISM WITHOUT ACUTE COR PULMONALE (8) Altered mental status Assessment/Plan: -neurology consult appreciated -Aricept increased to 10 mg po daily Code(s): R41.82 - ALTERED MENTAL STATUS, UNSPECIFIED (9) Hypokalemia Assessment/Plan: -resolved -on IVF with Kcl Code(s): E87.6 - HYPOKALEMIA Assessment/Plan see problem list -ON AC for afib, hx of DVT and PE- -Daily INR's
[2017-12-21] MEDS ORDERED: WARFARIN NA 1 MG TABLET (FP) PO SCH (12:05)
[2017-12-21] MEDS: LOSARTAN POTASSIUM 25 MG TABLET PO SCH (17:42)
[2017-12-21] MEDS: MONTELUKAST NA 10 MG TABLET PO SCH (21:20)
[2017-12-21] MEDS: DONEPEZIL HCL 10 MG TABLET (FP) PO SCH (21:20)
--- NOTE | 2017-12-21 23:00 | PN ---
Progress Note, Physician Chief Complaint: comfortable in chair History of Present Illness: 77 yhtn,,copd,afib,hyperthyroidism,ashd,admitted weakness,difficulty ambulating worsening dementia - Current Medication List Current Medications: Active Medications Acetaminophen (Tylenol -) 650 mg PO Q4H PRN PRN Reason: FEVER Last Admin: 12/18/17 22:16 Dose: 650 mg Albuterol/Ipratropium (Duoneb -) 1 amp NEB RQID [facility] Last Admin: 12/21/17 20:38 Dose: 1 amp Aspirin (Asa -) 81 mg PO DAILY [facility] Last Admin: 12/21/17 09:41 Dose: 81 mg Digoxin (Lanoxin -) 0.125 mg PO DAILY [facility] Last Admin: 12/21/17 09:41 Dose: 0.125 mg Diltiazem HCl (Cardizem Cd -) 360 mg PO DAILY [facility] Last Admin: 12/21/17 09:41 Dose: 360 mg Donepezil HCl (Aricept -) 10 mg PO HS [facility] Last Admin: 12/21/17 21:20 Dose: 10 mg Losartan Potassium (Cozaar -) 25 mg PO DAILY@1800 [facility] Last Admin: 12/21/17 17:42 Dose: 25 mg Megestrol Acetate (Megace -) 40 mg PO DAILY [facility] Last Admin: 12/21/17 09:42 Dose: 40 mg Methimazole (Tapazole -) 10 mg PO AM [facility] Last Admin: 12/21/17 06:09 Dose: 10 mg Montelukast Sodium (Singulair -) 10 mg PO HS [facility] Last Admin: 12/21/17 21:20 Dose: 10 mg Multivitamins (Total B With C -) 1 each PO DAILY [facility] Last Admin: 12/21/17 09:42 Dose: 1 each Warfarin Sodium (Coumadin -) 1.5 mg PO DAILY@1800 [facility] Last Admin: 12/21/17 17:42 Dose: 1.5 mg - Objective Vital Signs: Vital Signs Temperature 98.2 F 12/21/17 18:53 Pulse Rate 86 12/21/17 18:53 Respiratory Rate 20 12/21/17 18:53 Blood Pressure 137/86 12/21/17 18:53 O2 Sat by Pulse Oximetry (%) 97 12/21/17 10:00 Constitutional: Yes: Well Nourished Eyes: Yes: EOM Intact HENT: Yes: Normocephalic Neck: Yes: Thyromegaly Cardiovascular: Yes: Pulse Irregular Respiratory: Yes: Regular Gastrointestinal: Yes: Normal Bowel Sounds ...Rectal Exam: Yes: WNL Genitourinary: Yes: WNL Breast(s): Yes: WNL Musculoskeletal: Yes: WNL Extremities: Yes: WNL Edema: No Peripheral Pulses WNL: No Integumentary: Yes: WNL, Onychomycosis Neurological: Yes: Alert Labs: CBC, BMP 12/21/17 06:48 12/21/17 06:48 INR, PTT INR 1.82 (0.82-1.09) H 12/21/17 06:48 Problem List - Problems (1) Abdominal pain Code(s): R10.9 - UNSPECIFIED ABDOMINAL PAIN Qualifiers: Abdominal location: right upper quadrant Qualified Code(s): R10.11 - Right upper quadrant pain (2) Cholelithiasis Code(s): K80.20 - CALCULUS OF GALLBLADDER W/O CHOLECYSTITIS W/O OBSTRUCTION (3) Weakness Code(s): R53.1 - WEAKNESS (4) Acute asthma exacerbation Code(s): J45.901 - UNSPECIFIED ASTHMA WITH (ACUTE) EXACERBATION Qualifiers: Assessment/Plan Current Active Problems Abdominal pain (Acute) Abdominal pain (Acute) Cholelithiasis (Acute) Cholelithiasis (Acute) Chronic cholecystitis (Acute) Leukocytosis (Acute) Poor appetite (Acute) Weakness (Acute) hyperthyroidism Abnormal Lab Results 12/21/17 12/21/17 12/21/17 06:48 06:48 06:48 RDW 19.8 H Monocytes % 12.8 H PT with INR 20.60 H INR 1.82 H BUN 5 L AST 14 L ALT < 6 L Total Protein 5.7 L Albumin 2.6 L Laboratory Results - last 24 hr 12/21/17 12/21/17 12/21/17 06:48 06:48 06:48 WBC 7.4 RBC 3.98 Hgb 11.4 Hct 35.2 MCV 88.5 MCH 28.6 MCHC 32.3 RDW 19.8 H Plt Count 276 MPV 9.0 Neutrophils % 64.6 Lymphocytes % 20.8 Monocytes % 12.8 H Eosinophils % 0.8 Basophils % 1.0 PT with INR 20.60 H INR 1.82 H Sodium 143 Potassium 4.0 Chloride 107 Carbon Dioxide 23 Anion Gap 13 BUN 5 L Creatinine 0.6 Creat Clearance w eGFR > 60 Random Glucose 88 Calcium 8.6 Total Bilirubin 0.8 AST 14 L ALT < 6 L Alkaline Phosphatase 65 Total Protein 5.7 L Albumin 2.6 L plan; continue tapazole 10mg daily follow up tsh free t4 3-4 weeks
[2017-12-22] MEDS: METHIMAZOLE 5 MG TABLET (FP) PO SCH (06:04)
[2017-12-22] MEDS: ALBUTEROL SO4 2.5/IPRATROPIUM 0.5 INH SOL 3 ML VIAL.NEB. NEB SCH ×4 (07:35→20:52)
[2017-12-22 08:24] LABS: INR 1.64 (0.82-1.09); PROTHROMBIN TIME (PATIENT) 18.5 SEC (9.98-11.88)
--- NOTE | 2017-12-22 08:53 | PN ---
Progress Note, Physician Chief Complaint: ID Currently off antibiotics Afebrile - Current Medication List Current Medications: Active Medications Acetaminophen (Tylenol -) 650 mg PO Q4H PRN PRN Reason: FEVER Last Admin: 12/18/17 22:16 Dose: 650 mg Albuterol/Ipratropium (Duoneb -) 1 amp NEB RQID [facility] Last Admin: 12/22/17 07:35 Dose: 1 amp Aspirin (Asa -) 81 mg PO DAILY [facility] Last Admin: 12/21/17 09:41 Dose: 81 mg Digoxin (Lanoxin -) 0.125 mg PO DAILY [facility] Last Admin: 12/21/17 09:41 Dose: 0.125 mg Diltiazem HCl (Cardizem Cd -) 360 mg PO DAILY [facility] Last Admin: 12/21/17 09:41 Dose: 360 mg Donepezil HCl (Aricept -) 10 mg PO HS [facility] Last Admin: 12/21/17 21:20 Dose: 10 mg Losartan Potassium (Cozaar -) 25 mg PO DAILY@1800 [facility] Last Admin: 12/21/17 17:42 Dose: 25 mg Megestrol Acetate (Megace -) 40 mg PO DAILY [facility] Last Admin: 12/21/17 09:42 Dose: 40 mg Methimazole (Tapazole -) 10 mg PO AM [facility] Last Admin: 12/22/17 06:04 Dose: 10 mg Montelukast Sodium (Singulair -) 10 mg PO HS [facility] Last Admin: 12/21/17 21:20 Dose: 10 mg Multivitamins (Total B With C -) 1 each PO DAILY [facility] Last Admin: 12/21/17 09:42 Dose: 1 each Warfarin Sodium (Coumadin -) 1.5 mg PO DAILY@1800 [facility] Last Admin: 12/21/17 17:42 Dose: 1.5 mg - Objective Vital Signs: Vital Signs Temperature 98.7 F 12/22/17 06:00 Pulse Rate 88 12/22/17 06:00 Respiratory Rate 20 12/22/17 06:00 Blood Pressure 133/89 12/22/17 06:00 O2 Sat by Pulse Oximetry (%) 97 12/21/17 22:00 Neck: Yes: WNL, Supple Cardiovascular: Yes: S1, S2 Respiratory: Yes: WNL, Regular, CTA Bilaterally Gastrointestinal: Yes: WNL, Normal Bowel Sounds, Soft, Other (MILd RUQ gregory) Labs: CBC, BMP 12/21/17 06:48 12/21/17 06:48 INR, PTT INR 1.64 (0.82-1.09) H 12/22/17 07:35 Problem List - Problems (1) Atrial fibrillation Code(s): I48.91 - UNSPECIFIED ATRIAL FIBRILLATION Qualifiers: Atrial fibrillation type: permanent Qualified Code(s): I48.2 - Chronic atrial fibrillation (2) Cholelithiasis Code(s): K80.20 - CALCULUS OF GALLBLADDER W/O CHOLECYSTITIS W/O OBSTRUCTION Qualifiers: Cholelithiasis location: gallbladder Cholecystitis presence: without cholecystitis Biliary obstruction: without biliary obstruction Qualified Code(s): K80.20 - Calculus of gallbladder without cholecystitis without obstruction (3) H/O heart valve replacement with bioprosthetic valve Code(s): Z95.3 - PRESENCE OF XENOGENIC HEART VALVE Assessment/Plan Microbiology 12/17/17 18:52 Urine - Urine - Catheterized Urine Culture - Final NO GROWTH OBTAINED 12/17/17 22:00 Blood - Peripheral Venous Blood Culture - Preliminary NO GROWTH OBTAINED AFTER 96 HOURS, INCUBATION TO CONTINUE FOR 1 DAYS. 12/17/17 21:15 Blood - Peripheral Venous Blood Culture - Preliminary NO GROWTH OBTAINED AFTER 96 HOURS, INCUBATION TO CONTINUE FOR 1 DAYS. Laboratory Tests 12/21/17 12/21/17 06:48 06:48 WBC 7.4 Hgb 11.4 Plt Count 276 Creatinine 0.6 Creat Clearance w eGFR > 60 HIDA neg for cystic duct obstruction Assessment Off antibiotics At this point nothing further to do from ID standpoint Oralia SLAUGHTER
--- NOTE | 2017-12-22 09:53 | PN ---
Progress Note (short form) - Note Progress Note: Neurology History of Present Illness: 77 y/o F with PMH dementia, afib (on coumadin; s/p valve replacement), CHF, HTN , fatty liver disease, hypothyroidism, recently at [facility] (d/c yesterday for biliary colic), who was BIBEMS d/t weakness and lethargy. As per records, daughter stated pt was extremely weak and was "not being herself." Additionally , pt had decreased PO intake and decreased appetite during this time. Pt also endorses RUQ, inferior sternal pain over the past day. Stated that pain is similar to her biliary colic. Denies fever, chills, SOB, or changes in urinary or bowel function. Pt is a poor historian, and I was contacted for Dementia. CT head completed 12/15/17 reviewed and did not show acute changes, consistent with prior. She is able to tell me she's at [facility] but not able to tell me the date. Would not attempt to tell me month or year, poor effort. Can tell me name of President, Mary Ann, without difficulty. Aricept was increased to 10mg and can be continued. Active Medications Acetaminophen (Tylenol -) 650 mg PO Q4H PRN PRN Reason: FEVER Last Admin: 12/18/17 22:16 Dose: 650 mg Albuterol/Ipratropium (Duoneb -) 1 amp NEB RQID [facility] Last Admin: 12/22/17 07:35 Dose: 1 amp Aspirin (Asa -) 81 mg PO DAILY [facility] Last Admin: 12/21/17 09:41 Dose: 81 mg Digoxin (Lanoxin -) 0.125 mg PO DAILY [facility] Last Admin: 12/21/17 09:41 Dose: 0.125 mg Diltiazem HCl (Cardizem Cd -) 360 mg PO DAILY [facility] Last Admin: 12/21/17 09:41 Dose: 360 mg Donepezil HCl (Aricept -) 10 mg PO HS [facility] Last Admin: 12/21/17 21:20 Dose: 10 mg Losartan Potassium (Cozaar -) 25 mg PO DAILY@1800 [facility] Last Admin: 12/21/17 17:42 Dose: 25 mg Megestrol Acetate (Megace -) 40 mg PO DAILY [facility] Last Admin: 12/21/17 09:42 Dose: 40 mg Methimazole (Tapazole -) 10 mg PO AM [facility] Last Admin: 12/22/17 06:04 Dose: 10 mg Montelukast Sodium (Singulair -) 10 mg PO HS [facility] Last Admin: 12/21/17 21:20 Dose: 10 mg Multivitamins (Total B With C -) 1 each PO DAILY [facility] Last Admin: 12/21/17 09:42 Dose: 1 each Warfarin Sodium (Coumadin -) 1.5 mg PO DAILY@1800 [facility] Last Admin: 12/21/17 17:42 Dose: 1.5 mg Physical Examination Vital Signs Period Temp Pulse Resp BP Sys/[place] Pulse Ox Last 24 Hr 97.8 F-98.7 F 78-88 18-20 125-137/71-89 97-97 Constitutional: Yes: Well Nourished, No Distress, Calm Cardiovascular: Yes: Regular Rate and Rhythm Respiratory: Yes: Regular Gastrointestinal: Yes: Normal Bowel Sounds, Soft Musculoskeletal: Yes: WNL Extremities: Yes: WNL Neurological: Awake, alert, does not know date, can tell me location and president, no CN deficits, strength intact, sensory intact, gait deferred Psychiatric: Yes: Alert Labs: CBCD WBC 7.4 K/mm3 (4.0-10.0) 12/21/17 06:48 RBC 3.98 M/mm3 (3.60-5.2) 12/21/17 06:48 Hgb 11.4 GM/dL (10.7-15.3) 12/21/17 06:48 Hct 35.2 % (32.4-45.2) 12/21/17 06:48 MCV 88.5 fl (80-96) 12/21/17 06:48 MCHC 32.3 g/dl (32.0-36.0) 12/21/17 06:48 RDW 19.8 % (11.6-15.6) H 12/21/17 06:48 Plt Count 276 K/MM3 (134-434) 12/21/17 06:48 MPV 9.0 fl (7.5-11.1) 12/21/17 06:48 CMP Sodium 143 mmol/L (136-145) 12/21/17 06:48 Potassium 4.0 mmol/L (3.5-5.1) 12/21/17 06:48 Chloride 107 mmol/L (98-107) 12/21/17 06:48 Carbon Dioxide 23 mmol/L (21-32) 12/21/17 06:48 Anion Gap 13 (8-16) 12/21/17 06:48 BUN 5 mg/dL (7-18) L 12/21/17 06:48 Creatinine 0.6 mg/dL (0.55-1.02) 12/21/17 06:48 Creat Clearance w eGFR > 60 (>60) 12/21/17 06:48 Calcium 8.6 mg/dL (8.5-10.1) 12/21/17 06:48 Total Bilirubin 0.8 mg/dL (0.2-1.0) 12/21/17 06:48 AST 14 U/L (15-37) L 12/21/17 06:48 ALT < 6 U/L (12-78) L 12/21/17 06:48 Alkaline Phosphatase 65 U/L (45-117) 12/21/17 06:48 Total Protein 5.7 g/dl (6.4-8.2) L 12/21/17 06:48 Albumin 2.6 g/dl (3.4-5.0) L 12/21/17 06:48 CT head reviewed Plan 77 y/o F with PMH dementia, afib (on coumadin; s/p valve replacement), CHF, HTN , fatty liver disease, hypothyroidism, recently at [facility] (d/c yesterday for biliary colic), who was BIBEMS d/t weakness and lethargy. As per records, daughter stated pt was extremely weak and was "not being herself." Additionally , pt had decreased PO intake and decreased appetite during this time. Pt also endorses RUQ, inferior sternal pain over the past day. Stated that pain is similar to her biliary colic. I was contacted for Dementia. CT head completed 12/15/17 reviewed and did not show acute changes, consistent with prior. She is able to tell me she's at [facility] but not able to tell me the date. Says "17" and then 191. Does not know month, knows name of President Would treat underlying dehydration Increased PO intake Gi evaluation Monitor Afib, on coumadin Aricept Increased to 10mg Likely delirium on superimposed dementia and therefore would treat underlying issues first but does appear to have progressive cognitive decline and therefore may benefit from increased Aricept Monitor mental status
--- NOTE | 2017-12-22 10:29 | PN ---
Progress Note, Physician Chief Complaint: Weakness, RUQ abdominal pain History of Present Illness: NAD, walked with Physical Therapy seen by ID, GI and Neurology IV abx Awaiting HIDA scan On warfarin-therapeutic - Current Medication List Current Medications: Active Medications Acetaminophen (Tylenol -) 650 mg PO Q4H PRN PRN Reason: FEVER Last Admin: 12/18/17 22:16 Dose: 650 mg Albuterol/Ipratropium (Duoneb -) 1 amp NEB RQID [facility] Last Admin: 12/22/17 07:35 Dose: 1 amp Aspirin (Asa -) 81 mg PO DAILY [facility] Last Admin: 12/21/17 09:41 Dose: 81 mg Digoxin (Lanoxin -) 0.125 mg PO DAILY [facility] Last Admin: 12/21/17 09:41 Dose: 0.125 mg Diltiazem HCl (Cardizem Cd -) 360 mg PO DAILY [facility] Last Admin: 12/21/17 09:41 Dose: 360 mg Donepezil HCl (Aricept -) 10 mg PO HS [facility] Last Admin: 12/21/17 21:20 Dose: 10 mg Losartan Potassium (Cozaar -) 25 mg PO DAILY@1800 [facility] Last Admin: 12/21/17 17:42 Dose: 25 mg Megestrol Acetate (Megace -) 40 mg PO DAILY [facility] Last Admin: 12/21/17 09:42 Dose: 40 mg Methimazole (Tapazole -) 10 mg PO AM [facility] Last Admin: 12/22/17 06:04 Dose: 10 mg Montelukast Sodium (Singulair -) 10 mg PO HS [facility] Last Admin: 12/21/17 21:20 Dose: 10 mg Multivitamins (Total B With C -) 1 each PO DAILY [facility] Last Admin: 12/21/17 09:42 Dose: 1 each Warfarin Sodium (Coumadin -) 1.5 mg PO DAILY@1800 [facility] Last Admin: 12/21/17 17:42 Dose: 1.5 mg - Objective Vital Signs: Vital Signs Temperature 98.7 F 12/22/17 06:00 Pulse Rate 88 12/22/17 06:00 Respiratory Rate 20 12/22/17 06:00 Blood Pressure 133/89 12/22/17 06:00 O2 Sat by Pulse Oximetry (%) 97 12/21/17 22:00 Constitutional: Yes: Well Nourished, No Distress, Calm Cardiovascular: Yes: Pulse Irregular Respiratory: Yes: Regular Gastrointestinal: Yes: Normal Bowel Sounds, Soft Musculoskeletal: Yes: Muscle Weakness Extremities: Yes: WNL Edema: No Peripheral Pulses WNL: Yes Neurological: Yes: Alert, Pre-Existing Deficit Psychiatric: Yes: Alert Labs: CBC, BMP 12/21/17 06:48 12/21/17 06:48 INR, PTT INR 1.64 (0.82-1.09) H 12/22/17 07:35 Problem List - Problems (1) Leukocytosis Assessment/Plan: -improved -ID on board -IV abx discontinued -UC/BC negative -tylenol for fever > 100.0F Code(s): D72.829 - ELEVATED WHITE BLOOD CELL COUNT, UNSPECIFIED (2) Abdominal pain Assessment/Plan: -RUQ -HIDA scan with EF shows low EF -GI consult appreciated Code(s): R10.9 - UNSPECIFIED ABDOMINAL PAIN (3) COPD (chronic obstructive pulmonary disease) Assessment/Plan: -nasal o2 -bronchodilators Code(s): J44.9 - CHRONIC OBSTRUCTIVE PULMONARY DISEASE, UNSPECIFIED (4) Atrial fibrillation with rapid ventricular response Code(s): I48.91 - UNSPECIFIED ATRIAL FIBRILLATION (5) DVT (deep venous thrombosis) Code(s): I82.409 - ACUTE EMBOLISM AND THOMBOS UNSP DEEP VN UNSP LOWER EXTREMITY Qualifiers: DVT location: non-extremity vein Chronicity: unspecified Qualified Code(s ): I82.90 - Acute embolism and thrombosis of unspecified vein (6) H/O heart valve replacement with bioprosthetic valve Code(s): Z95.3 - PRESENCE OF XENOGENIC HEART VALVE (7) Pulmonary embolism Code(s): I26.99 - OTHER PULMONARY EMBOLISM WITHOUT ACUTE COR PULMONALE (8) Altered mental status Assessment/Plan: -neurology consult appreciated -Aricept increased to 10 mg po daily Code(s): R41.82 - ALTERED MENTAL STATUS, UNSPECIFIED (9) Hypokalemia Assessment/Plan: -resolved -2/2 poor PO intake Code(s): E87.6 - HYPOKALEMIA Assessment/Plan see problem list -ON AC for afib, hx of DVT and PE-sub therapeutic -Increase warfarin to mg po daily -Daily INR's
--- NOTE | 2017-12-22 10:46 | DS ---
Physical Examination Vital Signs: Vital Signs Temperature 98.7 F 12/22/17 06:00 Pulse Rate 88 12/22/17 06:00 Respiratory Rate 20 12/22/17 06:00 Blood Pressure 133/89 12/22/17 06:00 O2 Sat by Pulse Oximetry (%) 97 12/21/17 22:00 Constitutional: Yes: Well Nourished, No Distress, Calm Cardiovascular: Yes: Pulse Irregular Respiratory: Yes: Regular Gastrointestinal: Yes: Normal Bowel Sounds, Soft Musculoskeletal: Yes: WNL Extremities: Yes: WNL Edema: No Peripheral Pulses WNL: Yes Neurological: Yes: Alert, Pre-Existing Deficit Psychiatric: Yes: Alert Labs: CBC, BMP 12/21/17 06:48 12/21/17 06:48 Discharge Summary Reason For Visit: WEAKNESS Current Active Problems Abdominal pain (Acute) Abdominal pain (Acute) Cholelithiasis (Acute) Cholelithiasis (Acute) Chronic cholecystitis (Acute) Leukocytosis (Acute) Poor appetite (Acute) Weakness (Acute) Hospital Course: 77 y/o F with PMH dementia, afib (on coumadin; s/p valve replacement), CHF, HTN , fatty liver disease, hypothyroidism, recently at [facility] (d/c yesterday for biliary colic), who was BIBEMS d/t weakness and lethargy since yesterday. As per EMS, daughter called since pt was extremely weak and was "not being herself. " Additionally, pt had decreased PO intake and decreased appetite during this time. Pt also endorses RUQ, inferior sternal pain over the past day. Yesterday, her pain was constant, 10/10, however today she states that it is a 5/10. States that pain is similar to her biliary colic. Denies fever, chills, SOB, or changes in urinary or bowel function. Pt is a poor historian, and daughter is unreachable via phone. At baseline, pt lives with her daughter however she is unable to take care of her d/t increased falls. During her stay in the hospital, she was evaluated by GI, HIDA scan showed low EF due to chronic cholecyctitis. Conservative measures to be taken for now as per daughter. She was Started on Megace to increase appetite. Condition: Improved - Instructions Referrals: Joey Hernandez MD [Primary Care Provider] - Disposition: [facility] - Home Medications Comprehensive Discharge Medication List: Ambulatory Orders Diltiazem Cd [Cardizem Cd -] 360 mg PO DAILY tab 08/13/17 Aspirin [ASA -] 81 mg PO DAILY 09/28/17 Montelukast Na [Singulair -] 10 mg PO HS 09/28/17 Furosemide [Lasix -] 40 mg PO DAILY #30 tablet 10/03/17 Methimazole [Tapazole -] 5 mg PO AM tablet 11/05/17 Budesonide [Pulmicort 0.25 mg Nebulizer -] 1 amp IH BID 12/17/17 Digoxin 125 mcg PO HS 12/17/17 Donepezil HCl [Aricept] 5 mg PO HS 12/17/17 Hydralazine HCl 10 mg PO AM 12/17/17 Losartan Potassium 25 mg PO HS 12/17/17 Simvastatin 10 mg PO HS 12/17/17 Warfarin Sodium 4 mg PO HS 12/17/17 Warfarin Sodium [Coumadin] 3 mg PO Q2D 12/17/17 Acetaminophen [Tylenol .Regular Strength -] 650 mg PO Q4H PRN tablet 12/22/17 Albuterol 2.5/Ipratropium 0.5 [Duoneb -] 1 amp NEB RQID amp 12/22/17 Megestrol Acetate [Megace -] 40 mg PO DAILY tablet 12/22/17 Vitamin B Comp W-C [Total B with C -] 1 each PO DAILY tablet 12/22/17 Warfarin Na [Coumadin -] 1 mg PO DAILY@1800 #60 tablet 12/22/17
[2017-12-22] MEDS ORDERED: PT OWN MED DRAWER 7, Y5N ONE (11:20)
[2017-12-22] MEDS: DIGOXIN 0.125 MG TABLET (FP) PO SCH (11:57)
[2017-12-22] MEDS: VITAMIN B COMPLEX W/C COMBO TABLET (FP) PO SCH (11:58)
[2017-12-22] MEDS: ASPIRIN 81 MG CHEWABLE TABLETS PO SCH (11:58)
[2017-12-22] MEDS: MEGESTROL ACETATE 40 MG TABLET PO SCH (11:59)
--- NOTE | 2017-12-22 16:09 | PN ---
Progress Note, Physician History of Present Illness: Patient in bed still complains of abdominal tenderness on palpation, no bowel movement reported by RN since admission. Patient not a good historian 2/2 hx. of dementia. RN confirms that patient is tolerating diet, no nausea, no vomiting. - Current Medication List Current Medications: Active Medications Acetaminophen (Tylenol -) 650 mg PO Q4H PRN PRN Reason: FEVER Last Admin: 12/18/17 22:16 Dose: 650 mg Albuterol/Ipratropium (Duoneb -) 1 amp NEB RQID [facility] Last Admin: 12/22/17 11:05 Dose: 1 amp Aspirin (Asa -) 81 mg PO DAILY [facility] Last Admin: 12/22/17 11:58 Dose: 81 mg Digoxin (Lanoxin -) 0.125 mg PO DAILY [facility] Last Admin: 12/22/17 11:57 Dose: 0.125 mg Diltiazem HCl (Cardizem Cd -) 360 mg PO DAILY [facility] Last Admin: 12/22/17 11:57 Dose: 360 mg Donepezil HCl (Aricept -) [address] [facility] Last Admin: 12/21/17 21:20 Dose: 10 mg Losartan Potassium (Cozaar -) 25 mg PO DAILY@1800 [facility] Last Admin: 12/21/17 17:42 Dose: 25 mg Megestrol Acetate (Megace -) 40 mg PO DAILY [facility] Last Admin: 12/22/17 11:59 Dose: 40 mg Methimazole (Tapazole -) 10 mg PO AM [facility] Last Admin: 12/22/17 06:04 Dose: 10 mg Montelukast Sodium (Singulair -) [address] [facility] Last Admin: 12/21/17 21:20 Dose: 10 mg Multivitamins (Total B With C -) 1 each PO DAILY [facility] Last Admin: 12/22/17 11:58 Dose: 1 each Warfarin Sodium (Coumadin -) 2 mg PO DAILY@1800 [facility] - Objective Vital Signs: Vital Signs Temperature 98.2 F 12/22/17 14:05 Pulse Rate 90 12/22/17 14:05 Respiratory Rate 20 12/22/17 14:05 Blood Pressure 136/83 12/22/17 14:05 O2 Sat by Pulse Oximetry (%) 97 12/21/17 22:00 Constitutional: Yes: Well Nourished, No Distress, Calm Eyes: Yes: Conjunctiva Clear HENT: Yes: Atraumatic Cardiovascular: Yes: Regular Rate and Rhythm Respiratory: Yes: Regular, CTA Bilaterally Gastrointestinal: Yes: Soft, Tenderness (diffused), Tenderness, Epigastrium. No : Tenderness, Rebound Labs: CBC, BMP 12/21/17 06:48 12/21/17 06:48 INR, PTT INR 1.64 (0.82-1.09) H 12/22/17 07:35 Problem List - Problems (1) Abdominal pain Code(s): R10.9 - UNSPECIFIED ABDOMINAL PAIN Qualifiers: Abdominal location: right upper quadrant Qualified Code(s): R10.11 - Right upper quadrant pain (2) Cholelithiasis Assessment/Plan: Recommendation; 1) continue conservative care as per daughter's request Code(s): K80.20 - CALCULUS OF GALLBLADDER W/O CHOLECYSTITIS W/O OBSTRUCTION (3) Constipation Assessment/Plan: 2/2 to decreased ambulation recommendation: 1) Give one bottle of citrate now 2) start on Miralax 17gram daily 3) start Linzess 72mcq on discharge 4) continue megace 40mg daily on discharge 5) continue vitamin B complex on discharge 6) start Folic acid 1 tab on discharge Code(s): K59.00 - CONSTIPATION, UNSPECIFIED
[2017-12-22] MEDS: LOSARTAN POTASSIUM 25 MG TABLET PO SCH (18:48)
[2017-12-22] MEDS: WARFARIN NA 1 MG TABLET (FP) PO SCH (18:48)
[2017-12-22] MEDS: MONTELUKAST NA 10 MG TABLET PO SCH (21:22)
[2017-12-22] MEDS: DONEPEZIL HCL 10 MG TABLET (FP) PO SCH (21:23)
[2017-12-22] MEDS: ACETAMINOPHEN 325 MG TABLET (FP) PO PRN (22:47)
--- NOTE | 2017-12-22 23:10 | PN ---
Progress Note (short form) - Note Progress Note: weak in bed unable to unable to situp without help,totally dependent on help from others Current Active Problems Abdominal pain (Acute) Abdominal pain (Acute) Cholelithiasis (Acute) Cholelithiasis (Acute) Chronic cholecystitis (Acute) Constipation (Acute) Leukocytosis (Acute) Poor appetite (Acute) Weakness (Acute) Laboratory Results - last 24 hr 12/22/17 07:35 PT with INR 18.50 H INR 1.64 H Abnormal Lab Results Laboratory Tests 12/20/17 12/20/17 12/21/17 06:00 06:00 06:48 Sodium 143 Potassium 4.0 Chloride 107 Carbon Dioxide 23 Anion Gap 13 BUN 5 L Creatinine 0.6 Creat Clearance w eGFR > 60 Random Glucose 88 Calcium 8.6 Total Bilirubin 0.8 AST 14 L ALT < 6 L Total Protein 5.7 L Albumin 2.6 L TSH 2.07 Free T4 1.07 plan: continue methimazole 10mg daily physical therapy will need senior living placement snf Problem List - Problems (1) Abdominal pain Code(s): R10.9 - UNSPECIFIED ABDOMINAL PAIN Qualifiers: Abdominal location: right upper quadrant Qualified Code(s): R10.11 - Right upper quadrant pain (2) Cholelithiasis Code(s): K80.20 - CALCULUS OF GALLBLADDER W/O CHOLECYSTITIS W/O OBSTRUCTION (3) Weakness Code(s): R53.1 - WEAKNESS (4) Acute asthma exacerbation Code(s): J45.901 - UNSPECIFIED ASTHMA WITH (ACUTE) EXACERBATION Qualifiers:
[2017-12-23] MEDS: METHIMAZOLE 5 MG TABLET (FP) PO SCH (06:05)
[2017-12-23] MEDS: ALBUTEROL SO4 2.5/IPRATROPIUM 0.5 INH SOL 3 ML VIAL.NEB. NEB SCH ×5 (07:25→21:07)
[2017-12-23 08:32] LABS: INR 1.45 (0.82-1.09); PROTHROMBIN TIME (PATIENT) 16.4 SEC (9.98-11.88)
--- NOTE | 2017-12-23 09:33 | PN ---
Progress Note (short form) - Note Progress Note: Neurology History of Present Illness: 77 y/o F with PMH dementia, afib (on coumadin; s/p valve replacement), CHF, HTN , fatty liver disease, hypothyroidism, recently at [facility] (d/c yesterday for biliary colic), who was BIBEMS d/t weakness and lethargy. As per records, daughter stated pt was extremely weak and was "not being herself." Additionally , pt had decreased PO intake and decreased appetite during this time. Pt also endorses RUQ, inferior sternal pain over the past day. Stated that pain is similar to her biliary colic. Denies fever, chills, SOB, or changes in urinary or bowel function. Pt is a poor historian, and I was contacted for Dementia. CT head completed 12/15/17 reviewed and did not show acute changes, consistent with prior. She is able to tell me she's at [facility] but not able to tell me the date. Would not attempt to tell me month or year, poor effort. Can tell me name of President, Mary Ann, without difficulty. Aricept was increased to 10mg and can be continued. Has been stable during my evaluations. No side effects from Aricept adjustments. Active Medications Acetaminophen (Tylenol -) 650 mg PO Q4H PRN PRN Reason: FEVER Last Admin: 12/22/17 22:47 Dose: 650 mg Albuterol/Ipratropium (Duoneb -) 1 amp NEB RQID [facility] Last Admin: 12/23/17 07:25 Dose: 1 amp Aspirin (Asa -) 81 mg PO DAILY [facility] Last Admin: 12/22/17 11:58 Dose: 81 mg Digoxin (Lanoxin -) 0.125 mg PO DAILY [facility] Last Admin: 12/22/17 11:57 Dose: 0.125 mg Diltiazem HCl (Cardizem Cd -) 360 mg PO DAILY [facility] Last Admin: 12/22/17 11:57 Dose: 360 mg Donepezil HCl (Aricept -) 10 mg PO [facility] Last Admin: 12/22/17 21:23 Dose: 10 mg Levofloxacin (Levaquin 500 Mg Premixed Ivpb -) 500 mg in 100 mls @ 100 mls/hr IVPB [facility] Last Admin: 12/23/17 00:32 Dose: 100 mls/hr Losartan Potassium (Cozaar -) 25 mg PO DAILY@1800 [facility] Last Admin: 12/22/17 18:48 Dose: 25 mg Megestrol Acetate (Megace -) 40 mg PO DAILY [facility] Last Admin: 12/22/17 11:59 Dose: 40 mg Methimazole (Tapazole -) 10 mg PO AM [facility] Last Admin: 12/23/17 06:05 Dose: 10 mg Montelukast Sodium (Singulair -) 10 mg PO HS [facility] Last Admin: 12/22/17 21:22 Dose: 10 mg Multivitamins (Total B With C -) 1 each PO DAILY [facility] Last Admin: 12/22/17 11:58 Dose: 1 each Warfarin Sodium (Coumadin -) 2 mg PO DAILY@1800 [facility] Last Admin: 12/22/17 18:48 Dose: 2 mg Physical Examination Vital Signs Temperature 98.7 F 12/23/17 06:00 Pulse Rate 90 12/23/17 06:00 Respiratory Rate 20 12/23/17 06:00 Blood Pressure 136/81 12/23/17 06:00 O2 Sat by Pulse Oximetry (%) 99 12/22/17 22:00 Constitutional: Yes: Well Nourished, No Distress, Calm Cardiovascular: Yes: Regular Rate and Rhythm Respiratory: Yes: Regular Gastrointestinal: Yes: Normal Bowel Sounds, Soft Musculoskeletal: Yes: WNL Extremities: Yes: WNL Neurological: Awake, alert, does not know date, can tell me location and president, no CN deficits, strength intact, sensory intact, gait deferred Psychiatric: Yes: Alert Labs: CBCD WBC 7.4 K/mm3 (4.0-10.0) 12/21/17 06:48 RBC 3.98 M/mm3 (3.60-5.2) 12/21/17 06:48 Hgb 11.4 GM/dL (10.7-15.3) 12/21/17 06:48 Hct 35.2 % (32.4-45.2) 12/21/17 06:48 MCV 88.5 fl (80-96) 12/21/17 06:48 MCHC 32.3 g/dl (32.0-36.0) 12/21/17 06:48 RDW 19.8 % (11.6-15.6) H 12/21/17 06:48 Plt Count 276 K/MM3 (134-434) 12/21/17 06:48 MPV 9.0 fl (7.5-11.1) 12/21/17 06:48 CMP Sodium 143 mmol/L (136-145) 12/21/17 06:48 Potassium 4.0 mmol/L (3.5-5.1) 12/21/17 06:48 Chloride 107 mmol/L (98-107) 12/21/17 06:48 Carbon Dioxide 23 mmol/L (21-32) 12/21/17 06:48 Anion Gap 13 (8-16) 12/21/17 06:48 BUN 5 mg/dL (7-18) L 12/21/17 06:48 Creatinine 0.6 mg/dL (0.55-1.02) 12/21/17 06:48 Creat Clearance w eGFR > 60 (>60) 12/21/17 06:48 Calcium 8.6 mg/dL (8.5-10.1) 12/21/17 06:48 Total Bilirubin 0.8 mg/dL (0.2-1.0) 12/21/17 06:48 AST 14 U/L (15-37) L 12/21/17 06:48 ALT < 6 U/L (12-78) L 12/21/17 06:48 Alkaline Phosphatase 65 U/L (45-117) 12/21/17 06:48 Total Protein 5.7 g/dl (6.4-8.2) L 12/21/17 06:48 Albumin 2.6 g/dl (3.4-5.0) L 12/21/17 06:48 CT head reviewed Plan 77 y/o F with PMH dementia, afib (on coumadin; s/p valve replacement), CHF, HTN , fatty liver disease, hypothyroidism, recently at [facility] (d/c yesterday for biliary colic), who was BIBEMS d/t weakness and lethargy. As per records, daughter stated pt was extremely weak and was "not being herself." Additionally , pt had decreased PO intake and decreased appetite during this time. Pt also endorses RUQ, inferior sternal pain over the past day. Stated that pain is similar to her biliary colic. I was contacted for Dementia. CT head completed 12/15/17 reviewed and did not show acute changes, consistent with prior. She is able to tell me she's at [facility] but not able to tell me the date. Says "17" and then 1916. Does not know month, knows name of President Would treat underlying dehydration Increased PO intake Monitor Afib, on coumadin Aricept Increased to 10mg Likely delirium on superimposed dementia and therefore would treat underlying issues first but does appear to have progressive cognitive decline and therefore may benefit from increased Aricept Monitor mental status Appears to be stable No issues with increased Aricept 10mg, could possible increased to 20mg in future or add Namenda, but would hold off for now
[2017-12-23] MEDS ORDERED: PT OWN MED DRAWER 7, Y5N ONE (09:48)
[2017-12-23] MEDS: ASPIRIN 81 MG CHEWABLE TABLETS PO SCH (09:51)
[2017-12-23] MEDS: DIGOXIN 0.125 MG TABLET (FP) PO SCH (09:51)
[2017-12-23] MEDS: VITAMIN B COMPLEX W/C COMBO TABLET (FP) PO SCH (09:52)
[2017-12-23] MEDS: MEGESTROL ACETATE 40 MG TABLET PO SCH (09:53)
--- NOTE | 2017-12-23 10:13 | PN ---
Progress Note, Physician Chief Complaint: Weakness, RUQ abdominal pain History of Present Illness: NAD, walked with Physical Therapy seen by ID, GI and Neurology On warfarin-sub therapeutic febrile over night - Current Medication List Current Medications: Active Medications Acetaminophen (Tylenol -) 650 mg PO Q4H PRN PRN Reason: FEVER Last Admin: 12/22/17 22:47 Dose: 650 mg Albuterol/Ipratropium (Duoneb -) 1 amp NEB RQID [facility] Last Admin: 12/23/17 07:25 Dose: 1 amp Aspirin (Asa -) 81 mg PO DAILY [facility] Last Admin: 12/23/17 09:51 Dose: 81 mg Digoxin (Lanoxin -) 0.125 mg PO DAILY [facility] Last Admin: 12/23/17 09:51 Dose: 0.125 mg Diltiazem HCl (Cardizem Cd -) 360 mg PO DAILY [facility] Last Admin: 12/23/17 09:51 Dose: 360 mg Donepezil HCl (Aricept -) 10 mg PO HS [facility] Last Admin: 12/22/17 21:23 Dose: 10 mg Levofloxacin (Levaquin 500 Mg Premixed Ivpb -) 500 mg in 100 mls @ 100 mls/hr IVPB [facility] Last Admin: 12/23/17 00:32 Dose: 100 mls/hr Losartan Potassium (Cozaar -) 25 mg PO DAILY@1800 [facility] Last Admin: 12/22/17 18:48 Dose: 25 mg Megestrol Acetate (Megace -) 40 mg PO DAILY [facility] Last Admin: 12/23/17 09:53 Dose: 40 mg Methimazole (Tapazole -) 10 mg PO AM [facility] Last Admin: 12/23/17 06:05 Dose: 10 mg Montelukast Sodium (Singulair -) 10 mg PO HS [facility] Last Admin: 12/22/17 21:22 Dose: 10 mg Multivitamins (Total B With C -) 1 each PO DAILY [facility] Last Admin: 12/23/17 09:52 Dose: 1 each Warfarin Sodium (Coumadin -) 2 mg PO DAILY@1800 [facility] Last Admin: 12/22/17 18:48 Dose: 2 mg - Objective Vital Signs: Vital Signs Temperature 98.7 F 12/23/17 06:00 Pulse Rate 88 12/23/17 09:51 Respiratory Rate 20 12/23/17 06:00 Blood Pressure 136/81 12/23/17 06:00 O2 Sat by Pulse Oximetry (%) 99 12/22/17 22:00 Constitutional: Yes: Well Nourished, No Distress, Calm Cardiovascular: Yes: Pulse Irregular Respiratory: Yes: Regular Gastrointestinal: Yes: Normal Bowel Sounds, Soft Musculoskeletal: Yes: WNL Extremities: Yes: WNL Edema: No Peripheral Pulses WNL: Yes Neurological: Yes: Alert, Pre-Existing Deficit Psychiatric: Yes: Alert Labs: CBC, BMP 12/21/17 06:48 12/21/17 06:48 INR, PTT INR 1.45 (0.82-1.09) H 12/23/17 06:30 Problem List - Problems (1) Leukocytosis Assessment/Plan: -improved -ID on board -IV abx restarted -repeat UC/BC -tylenol for fever > 100.0F Code(s): D72.829 - ELEVATED WHITE BLOOD CELL COUNT, UNSPECIFIED (2) Abdominal pain Assessment/Plan: -RUQ -HIDA scan with EF shows low EF -GI consult appreciated Code(s): R10.9 - UNSPECIFIED ABDOMINAL PAIN (3) COPD (chronic obstructive pulmonary disease) Assessment/Plan: -nasal o2 -bronchodilators Code(s): J44.9 - CHRONIC OBSTRUCTIVE PULMONARY DISEASE, UNSPECIFIED (4) Atrial fibrillation with rapid ventricular response Code(s): I48.91 - UNSPECIFIED ATRIAL FIBRILLATION (5) DVT (deep venous thrombosis) Code(s): I82.409 - ACUTE EMBOLISM AND THOMBOS UNSP DEEP VN UNSP LOWER EXTREMITY Qualifiers: DVT location: non-extremity vein Chronicity: unspecified Qualified Code(s ): I82.90 - Acute embolism and thrombosis of unspecified vein (6) H/O heart valve replacement with bioprosthetic valve Code(s): Z95.3 - PRESENCE OF XENOGENIC HEART VALVE (7) Pulmonary embolism Code(s): I26.99 - OTHER PULMONARY EMBOLISM WITHOUT ACUTE COR PULMONALE (8) Altered mental status Assessment/Plan: -neurology consult appreciated -Aricept increased to 10 mg po daily Code(s): R41.82 - ALTERED MENTAL STATUS, UNSPECIFIED (9) Hypokalemia Assessment/Plan: -resolved -2/2 poor PO intake Code(s): E87.6 - HYPOKALEMIA Assessment/Plan see problem list -ON AC for afib, hx of DVT and PE-sub therapeutic -Warfarin 5 mg po today -Daily INR's -ID to see patient again -CXR -UC/BC -repeat labs
[2017-12-23 10:32] LABS: EOS % 0.5 % (0-4.5); HEMATOCRIT 33.3 % (32.4-45.2); HEMOGLOBIN 10.9 GM/dL (10.7-15.3); LYMPH % 24.7 % (8-40); MCH 28.8 pg (25.7-33.7); MCHC 32.6 g/dl (32.0-36.0); MEAN CELL VOLUME 88.5 fl (80-96); MEAN PLT VOLUME 8.7 fl (7.5-11.1); MONO % 19.3 % (3.8-10.2); NEUT % 54.5 % (42.8-82.8); PLATELET COUNT 224 K/MM3 (134-434); RBC 3.77 M/mm3 (3.60-5.2); WHITE BLOOD COUNT 4.5 K/mm3 (4.0-10.0)
[2017-12-23 10:47] LABS: ALBUMIN 2.4 g/dl (3.4-5.0); ALK PHOS 57 U/L (45-117); ANION GAP 12 (8-16); BILIRUBIN,TOTAL 0.3 mg/dL (0.2-1.0); BLOOD UREA NITROGEN 7 mg/dL (7-18); CALCIUM 8.1 mg/dL (8.5-10.1); CHLORIDE 107 mmol/L (98-107); CO2 22 mmol/L (21-32); CREATININE 0.5 mg/dL (0.55-1.02); GLUCOSE,RANDOM 83 mg/dL (74-106); POTASSIUM 3.9 mmol/L (3.5-5.1); SGOT/AST 14 U/L (15-37); SGPT/ALT < 6 U/L (12-78); SODIUM 141 mmol/L (136-145); TOT PROT 5.2 g/dl (6.4-8.2)
--- NOTE | 2017-12-23 12:06 | PN ---
Progress Note (short form) - Note Progress Note: had a fever to 101 last night still with RUQ discomfort no sob, no dysuria Vital Signs Period Temp Pulse Resp BP Sys/Urrutia Pulse Ox Last 24 Hr 98.2 F-101.3 F 88-93 18-20 134-147/72-83 99 cor-rrr lungs decreased bs at bases abd soft, RUQ discomfort to palpation ext no edema CBC, BMP 12/23/17 06:40 12/23/17 06:40 Microbiology 12/17/17 22:00 Blood - Peripheral Venous Blood Culture - Final NO GROWTH AFTER 5 DAYS INCUBATION 12/17/17 21:15 Blood - Peripheral Venous Blood Culture - Final NO GROWTH AFTER 5 DAYS INCUBATION a/p new fever (off antibiotics)-?chronic cholycystitis RUQ pain- persistent, GI followup requested cultures sent, cxray pending resume ertapenem, check lfts, f/u cxray (pen allergy) prosthetic MVR noted, cultures sent d/w Primary service Batsheva LARIOS
[2017-12-23] MEDS ORDERED: ERTAPENEM SODIUM 1 GM/50 ML PRE-DOCKED IVPB SCH (12:15)
[2017-12-23 12:39] LABS: URINE APPEARANCE SLCLOUDY; URINE BILIRUBIN NEGATIVE (NEGATIVE); URINE BLOOD NEGATIVE (NEGATIVE); URINE COLOR YELLOW; URINE GLUCOSE (UA) NEGATIVE (NEGATIVE); URINE KETONE NEGATIVE (NEGATIVE); URINE NITRITE NEGATIVE (NEGATIVE); URINE PROTEIN NEGATIVE (NEGATIVE); URINE UROBILINOGEN 4.0 E.U/dl mg/dL (0.2-1.0)
[2017-12-23 12:41] LABS: URINE LEUK ESTERASE 2+ (NEGATIVE)
[2017-12-23 12:43] LABS: EPI CELLS FEW /HPF (FEW); URINE BACTERIA RARE /hpf (NONE SEEN); URINE HYALINE CAST 1 /lpf; URINE MUCUS RARE
[2017-12-23] MEDS ORDERED: ERTAPENEM SODIUM 1 GM in SODIUM CHLORIDE 50 ML IVPB ONE (13:00)
[2017-12-23 13:44] LABS: BILIRUBIN,DIRECT < 0.2 mg/dL (0.0-0.2)
--- NOTE | 2017-12-23 14:05 | CONSULT ---
<Lulu Negron - Last Filed: 12/23/17 14:42> - Consultation REQUESTING PROVIDER: CONSULT REQUEST: We have been asked to surgically evaluate this patient for gallbladder disease/ruq pain/fever. PCP:Escobar Perez HISTORY OF PRESENT ILLNESS: The patient is a 77 yo female with a history of dementia, CAD, HTN, CHF, hypothyroidism who presented to the ER with complaints of RUQ pain/fever. She had been seen and treated for biliary colic on 12/15 at [facility]. She returned with weakness, decreased oral intake and RUQ pain. The patient was admitted to the medical service and her work up for biliary disease continued. Her HIDA scan revealed biliary dyskinesia, no evidnece of acute nasrin. GIven her history of multiple co mobitites and heart value replacement she, was empirally treated with IV abx, as per infectious disease. The patient was improving and she has a fever overnight to 101. Surgery was called to evaluate her biliary disease. As per nursing staff, pt will eat when assisted. PMHx: CAD, HTN, CHF, dementia, hypothyroidism PSHx: heart valve replacement Home Medications Medication Instructions Recorded Diltiazem Cd [Cardizem Cd -] 360 mg PO DAILY tab 08/13/17 Aspirin [ASA -] 81 mg PO DAILY 09/28/17 Montelukast Na [Singulair -] 10 mg PO HS 09/28/17 Furosemide [Lasix -] 40 mg PO DAILY #30 tablet 10/03/17 Methimazole [Tapazole -] 5 mg PO AM tablet 11/05/17 Budesonide [Pulmicort 0.25 mg 1 amp IH BID 12/17/17 Nebulizer -] Digoxin 125 mcg PO HS 12/17/17 Donepezil HCl [Aricept] 5 mg PO HS 12/17/17 Hydralazine HCl 10 mg PO AM 12/17/17 Losartan Potassium 25 mg PO HS 12/17/17 Simvastatin 10 mg PO HS 12/17/17 Warfarin Sodium 4 mg PO HS 12/17/17 Warfarin Sodium [Coumadin] 3 mg PO Q2D 12/17/17 Acetaminophen [Tylenol .Regular 650 mg PO Q4H PRN tablet 12/22/17 Strength -] Albuterol 2.5/Ipratropium 0.5 1 amp NEB RQID amp 12/22/17 [Duoneb -] Folic Acid 1 mg PO DAILY #30 tablet 12/22/17 Linaclotide [Linzess] 72 mcg PO DAILY #30 capsule 12/22/17 Megestrol Acetate [Megace -] 40 mg PO DAILY tablet 12/22/17 Polyethylene Glycol 3350 [Miralax 17 gm PO DAILY #1 bottle 12/22/17 (For Daily Use) -] Vitamin B Comp W-C [Total B with C 1 each PO DAILY tablet 12/22/17 -] Vitamin B Complex [B Complex] 1 each PO DAILY #30 tablet 12/22/17 Warfarin Na [Coumadin -] 1 mg PO DAILY@1800 #60 tablet 12/22/17 Allergies Allergy/AdvReac Type Severity Reaction Status Date / Time ampicillin [Ampicillin] Allergy Severe Swelling Verified 12/17/17 14:22 codeine [Codeine] Allergy Swelling Verified 12/17/17 14:22 REVIEW OF SYSTEMS: unable to obtain CONSTITUTIONAL: Present: fever PHYSICAL EXAM: GENERAL: Awake, follows commands, oriented to place, not time. EYES: PERRL, sclera anicteric, conjunctiva clear. ABDOMEN: Soft, nontender, not distended, no guarding, no rebound, no masses. No organomegaly. UPPER EXTREMITIES: 2+ pulses, warm, well-perfused. No cyanosis. Cap refill <2 seconds. No peripheral edema. LOWER EXTREMITIES: 2+ pulses, warm, well-perfused. No calf tenderness. No peripheral edema. NEUROLOGICAL: Normal speech, lethargic. PSYCH: Cooperative. Vital Signs Temperature 98.7 F 12/23/17 06:00 Pulse Rate 88 12/23/17 09:51 Respiratory Rate 20 12/23/17 06:00 Blood Pressure 136/81 12/23/17 06:00 O2 Sat by Pulse Oximetry (%) 99 12/22/17 22:00 Lab Results WBC 4.5 K/mm3 (4.0-10.0) D 12/23/17 06:40 RBC 3.77 M/mm3 (3.60-5.2) 12/23/17 06:40 Hgb 10.9 GM/dL (10.7-15.3) 12/23/17 06:40 Hct 33.3 % (32.4-45.2) 12/23/17 06:40 MCV 88.5 fl (80-96) 12/23/17 06:40 MCHC 32.6 g/dl (32.0-36.0) 12/23/17 06:40 RDW 20.0 % (11.6-15.6) H 12/23/17 06:40 Plt Count 224 K/MM3 (134-434) 12/23/17 06:40 Sodium 141 mmol/L (136-145) 12/23/17 06:40 Potassium 3.9 mmol/L (3.5-5.1) 12/23/17 06:40 Chloride 107 mmol/L (98-107) 12/23/17 06:40 Carbon Dioxide 22 mmol/L (21-32) 12/23/17 06:40 Anion Gap 12 (8-16) 12/23/17 06:40 BUN 7 mg/dL (7-18) 12/23/17 06:40 Creatinine 0.5 mg/dL (0.55-1.02) L 12/23/17 06:40 Random Glucose 83 mg/dL (74-106) 12/23/17 06:40 Calcium 8.1 mg/dL (8.5-10.1) L 12/23/17 06:40 INR 1.45 (0.82-1.09) H 12/23/17 06:30 Ultrasound 12/16-distended GB with stones. No wall thickening or pericholecytic fluid. 12/17-enlarged heart with value replacement 12/18- HIDA no cystic duct obstruction, ejection fraction of 18% Microbiology 12/17/17 22:00 Blood - Peripheral Venous Blood Culture - Final NO GROWTH AFTER 5 DAYS INCUBATION 12/17/17 21:15 Blood - Peripheral Venous Blood Culture - Final NO GROWTH AFTER 5 DAYS INCUBATION 12/17/17 18:52 Urine - Urine - Catheterized Urine Culture - Final NO GROWTH OBTAINED Laboratory Tests 12/23/17 12/23/17 12/23/17 06:30 06:40 11:30 PT with INR 16.40 H INR 1.45 H Total Bilirubin 0.3 D AST 14 L ALT < 6 L Alkaline Phosphatase 57 Urine Color Yellow Urine Appearance Slcloudy Urine pH 6.0 Ur Specific [place] 1.010 Urine Protein Negative Urine Glucose (UA) Negative Urine Ketones Negative Urine Blood Negative Urine Nitrite Negative Urine Bilirubin Negative Urine Urobilinogen 4.0 e.u/dl H Ur Leukocyte Esterase 2+ H Problem List - Problems (1) Cholelithiasis Assessment/Plan: D/w Dr. Mason and recommend surgery on this admission if family agrees and the patient can be cleared for surgery. Please obtain medical/cardiac clearance if the family is agreeable. fever work up in progress, blood culture and urine culture pending, UA positive , repeat CXR as per medical team and concern for infiltrate. IV ertapenum given x1 yesterday. Diet as tolerated, abd benign on exam. Will continue to follow. Code(s): K80.20 - CALCULUS OF GALLBLADDER W/O CHOLECYSTITIS W/O OBSTRUCTION QualifierTitle: Cholecystitis acuity: acute and chronic Biliary obstruction: without biliary obstruction Visit type - Case Type Case Type: ED Admission - Emergency Emergency Visit: Yes ED Registration Date: 12/17/17 Care time: The patient presented to the Emergency Department on the above date and was hospitalized for further evaluation of their emergent condition. - New patient This patient is new to me today: Yes Date on this admission: 12/23/17 <Faustino Mason - Last Filed: 12/24/17 13:11> - Consultation REQUESTING PROVIDER: CONSULT REQUEST: We have been asked to surgically evaluate this patient for ( specify). PCP:Escobar Perez HISTORY OF PRESENT ILLNESS: PMHx: PSHx: Home Medications Medication Instructions Recorded Diltiazem Cd [Cardizem Cd -] 360 mg PO DAILY tab 08/13/17 Aspirin [ASA -] 81 mg PO DAILY 09/28/17 Montelukast Na [Singulair -] 10 mg PO HS 09/28/17 Furosemide [Lasix -] 40 mg PO DAILY #30 tablet 10/03/17 Methimazole [Tapazole -] 5 mg PO AM tablet 11/05/17 Budesonide [Pulmicort 0.25 mg 1 amp IH BID 12/17/17 Nebulizer -] Digoxin 125 mcg PO HS 12/17/17 Donepezil HCl [Aricept] 5 mg PO HS 12/17/17 Hydralazine HCl 10 mg PO AM 12/17/17 Losartan Potassium 25 mg PO HS 12/17/17 Simvastatin 10 mg PO HS 12/17/17 Warfarin Sodium 4 mg PO HS 12/17/17 Warfarin Sodium [Coumadin] 3 mg PO Q2D 12/17/17 Acetaminophen [Tylenol .Regular 650 mg PO Q4H PRN tablet 12/22/17 Strength -] Albuterol 2.5/Ipratropium 0.5 1 amp NEB RQID amp 12/22/17 [Duoneb -] Folic Acid 1 mg PO DAILY #30 tablet 12/22/17 Linaclotide [Linzess] 72 mcg PO DAILY #30 capsule 12/22/17 Megestrol Acetate [Megace -] 40 mg PO DAILY tablet 12/22/17 Polyethylene Glycol 3350 [Miralax 17 gm PO DAILY #1 bottle 12/22/17 (For Daily Use) -] Vitamin B Comp W-C [Total B with C 1 each PO DAILY tablet 12/22/17 -] Vitamin B Complex [B Complex] 1 each PO DAILY #30 tablet 12/22/17 Warfarin Na [Coumadin -] 1 mg PO DAILY@1800 #60 tablet 12/22/17 Allergies Allergy/AdvReac Type Severity Reaction Status Date / Time ampicillin [Ampicillin] Allergy Severe Swelling Verified 12/17/17 14:22 codeine [Codeine] Allergy Swelling Verified 12/17/17 14:22 REVIEW OF SYSTEMS: CONSTITUTIONAL: Absent: fever, chills, diaphoresis, generalized weakness, malaise, loss of appetite, weight change CARDIOVASCULAR: Absent: chest pain, syncope, palpitations, irregular heart rate, lightheadedness , peripheral edema RESPIRATORY: Absent: cough, shortness of breath, dyspnea with exertion, wheezing, stridor, hemoptysis GASTROINTESTINAL: Absent: abdominal pain, abdominal distension, nausea, vomiting, diarrhea, constipation, melena, hematochezia GENITOURINARY: Absent: dysuria, frequency, urgency, hesitancy, hematuria, flank pain, genital pain MUSCULOSKELETAL: Absent: myalgia, arthralgia, joint swelling, back pain, neck pain SKIN: Absent: rash, itching, pallor HEMATOLOGIC/IMMUNOLOGIC: Absent: easy bleeding, easy bruising, lymphadenopathy NEUROLOGIC: Absent: headache, focal weakness, paresthesias, dizziness, unsteady gait, seizure, mental status changes, bladder or bowel incontinence PSYCHIATRIC: Absent: anxiety, depression, suicidal or homicidal ideation, hallucinations. PHYSICAL EXAM: GENERAL: Awake, alert, and fully oriented, in no acute distress. HEAD: Normal with no signs of trauma. EYES: PERRL, sclera anicteric, conjunctiva clear. NECK: Normal ROM, supple without lymphadenopathy, JVD, or masses. LUNGS: Clear to auscultation bilat anteriorly. No wheezes, and no crackles. No accessory muscle use. HEART: Regular rate and rhythm. No murmurs ABDOMEN: Soft, nontender, not distended, normoactive bowel sounds, no guarding, no rebound, no masses. No organomegaly. MUSCULOSKELETAL: Normal ROM at all joints. No bony deformities or tenderness. No CVA tenderness. UPPER EXTREMITIES: 2+ pulses, warm, well-perfused. No cyanosis. Cap refill <2 seconds. No peripheral edema. LOWER EXTREMITIES: 2+ pulses, warm, well-perfused. No calf tenderness. No peripheral edema. NEUROLOGICAL: Normal speech, gait not observed. PSYCH: Cooperative. Good eye contact. Appropriate mood and affect. SKIN: Warm, dry, normal turgor, no rashes or lesions noted. Vital Signs Temperature 99.8 F H 12/24/17 06:00 Pulse Rate 89 12/24/17 10:14 Respiratory Rate 20 12/24/17 06:00 Blood Pressure 141/83 12/24/17 06:00 O2 Sat by Pulse Oximetry (%) 97 12/23/17 21:00 Lab Results WBC 4.6 K/mm3 (4.0-10.0) 12/24/17 11:00 RBC 3.91 M/mm3 (3.60-5.2) 12/24/17 11:00 Hgb 11.4 GM/dL (10.7-15.3) 12/24/17 11:00 Hct 34.2 % (32.4-45.2) 12/24/17 11:00 MCV 87.6 fl (80-96) 12/24/17 11:00 MCHC 33.4 g/dl (32.0-36.0) 12/24/17 11:00 RDW 19.4 % (11.6-15.6) H 12/24/17 11:00 Plt Count 222 K/MM3 (134-434) 12/24/17 11:00 Sodium 140 mmol/L (136-145) 12/24/17 11:00 Potassium 4.0 mmol/L (3.5-5.1) 12/24/17 11:00 Chloride 108 mmol/L (98-107) H 12/24/17 11:00 Carbon Dioxide 23 mmol/L (21-32) 12/24/17 11:00 Anion Gap 9 (8-16) 12/24/17 11:00 BUN 6 mg/dL (7-18) L 12/24/17 11:00 Creatinine 0.6 mg/dL (0.55-1.02) 12/24/17 11:00 Random Glucose 102 mg/dL (74-106) 12/24/17 11:00 Calcium 7.8 mg/dL (8.5-10.1) L 12/24/17 11:00 INR 1.42 (0.82-1.09) H 12/24/17 11:00 Agree + Biliary dyskinesia on imaging Recurrent pain May require cholecystectomy
--- NOTE | 2017-12-23 16:15 | PN ---
Progress Note, Physician Chief Complaint: RUQ abdominal pain History of Present Illness: Patient more alert and coherent, she denies abdominal pain, no nausea, no vomiting, no diarrhea. Patient reports no bowel movement since admission. patient afebrile. - Current Medication List Current Medications: Active Medications Acetaminophen (Tylenol -) 650 mg PO Q4H PRN PRN Reason: FEVER Last Admin: 12/22/17 22:47 Dose: 650 mg Albuterol/Ipratropium (Duoneb -) 1 amp NEB Q4HWA [facility] Last Admin: 12/23/17 15:51 Dose: 1 amp Aspirin (Asa -) 81 mg PO DAILY [facility] Last Admin: 12/23/17 09:51 Dose: 81 mg Digoxin (Lanoxin -) 0.125 mg PO DAILY [facility] Last Admin: 12/23/17 09:51 Dose: 0.125 mg Diltiazem HCl (Cardizem Cd -) 360 mg PO DAILY [facility] Last Admin: 12/23/17 09:51 Dose: 360 mg Donepezil HCl (Aricept -) 10 mg PO [facility] Last Admin: 12/22/17 21:23 Dose: 10 mg Losartan Potassium (Cozaar -) 25 mg PO DAILY@1800 [facility] Last Admin: 12/22/17 18:48 Dose: 25 mg Megestrol Acetate (Megace -) 40 mg PO DAILY [facility] Last Admin: 12/23/17 09:53 Dose: 40 mg Methimazole (Tapazole -) 10 mg PO AM [facility] Last Admin: 12/23/17 06:05 Dose: 10 mg Montelukast Sodium (Singulair -) 10 mg PO [facility] Last Admin: 12/22/17 21:22 Dose: 10 mg Multivitamins (Total B With C -) 1 each PO DAILY [facility] Last Admin: 12/23/17 09:52 Dose: 1 each Warfarin Sodium (Coumadin -) 2 mg PO DAILY@1800 [facility] Last Admin: 12/22/17 18:48 Dose: 2 mg Warfarin Sodium (Coumadin -) 5 mg PO ONCE@1800 ONE Stop: 12/23/17 18:01 - Objective Vital Signs: Vital Signs Temperature 98.7 F 12/23/17 06:00 Pulse Rate 88 12/23/17 09:51 Respiratory Rate 20 12/23/17 06:00 Blood Pressure 136/81 12/23/17 06:00 O2 Sat by Pulse Oximetry (%) 99 12/22/17 22:00 Constitutional: Yes: Well Nourished, No Distress, Calm Eyes: Yes: Conjunctiva Clear HENT: Yes: Atraumatic Cardiovascular: Yes: Regular Rate and Rhythm Gastrointestinal: Yes: Normal Bowel Sounds, Soft. No: Distention, Tenderness, Tenderness, Epigastrium, Tenderness, Rebound, Vomiting Labs: CBC, BMP 12/23/17 06:40 12/23/17 06:40 INR, PTT INR 1.45 (0.82-1.09) H 12/23/17 06:30 Problem List - Problems (1) Abdominal pain Assessment/Plan: Resolved Recommendation: If reoccurs will give protonix 40mg and reglan 5mg Code(s): R10.9 - UNSPECIFIED ABDOMINAL PAIN Qualifiers: Abdominal location: right upper quadrant Qualified Code(s): R10.11 - Right upper quadrant pain (2) Cholelithiasis Code(s): K80.20 - CALCULUS OF GALLBLADDER W/O CHOLECYSTITIS W/O OBSTRUCTION Qualifiers: Cholecystitis acuity: acute and chronic Biliary obstruction: without biliary obstruction (3) Constipation Assessment/Plan: 2/2 to decreased ambulation recommendation: 1) Give one bottle of citrate now 2) start on Miralax 17gram daily Code(s): K59.00 - CONSTIPATION, UNSPECIFIED
[2017-12-23] MEDS ORDERED: MAGNESIUM CITRATE 300 ML BOTTLE PO ONE (17:18)
[2017-12-23] MEDS ORDERED: WARFARIN NA 5 MG TABLET (UD) PO ONE (18:00)
[2017-12-23] MEDS: LOSARTAN POTASSIUM 25 MG TABLET PO SCH (19:09)
[2017-12-23] MEDS: DONEPEZIL HCL 10 MG TABLET (FP) PO SCH (21:21)
[2017-12-23] MEDS: MONTELUKAST NA 10 MG TABLET PO SCH (21:21)
[2017-12-24] MEDS: METHIMAZOLE 5 MG TABLET (FP) PO SCH (06:17)
[2017-12-24] MEDS: ALBUTEROL SO4 2.5/IPRATROPIUM 0.5 INH SOL 3 ML VIAL.NEB. NEB SCH ×5 (06:25→21:40)
--- NOTE | 2017-12-24 09:32 | PN ---
Progress Note (short form) - Note Progress Note: coughing and wheezing this am low grade fevers no complaints Vital Signs Period Temp Pulse Resp BP Sys/Urrutia Pulse Ox Last 24 Hr 98.6 F-100.1 F 76-93 18-20 134-151/75-83 97 cor-rrr llungs bilateral wheezing abd soft, minimal RUQ pain to palpation ext no edema CBC, BMP 12/23/17 06:40 12/23/17 06:40 Microbiology 12/23/17 11:30 Urine - Urine Clean Catch Urine Culture - Final NO GROWTH OBTAINED 12/22/17 23:08 Blood - Peripheral Venous Blood Culture - Preliminary NO GROWTH OBTAINED AFTER 24 HOURS, INCUBATION TO CONTINUE FOR 4 DAYS. 12/22/17 23:08 Blood - Peripheral Venous Blood Culture - Preliminary NO GROWTH OBTAINED AFTER 24 HOURS, INCUBATION TO CONTINUE FOR 4 DAYS. 12/17/17 22:00 Blood - Peripheral Venous Blood Culture - Final NO GROWTH AFTER 5 DAYS INCUBATION 12/17/17 21:15 Blood - Peripheral Venous Blood Culture - Final NO GROWTH AFTER 5 DAYS INCUBATION 12/17/17 18:52 Urine - Urine - Catheterized Urine Culture - Final NO GROWTH OBTAINED cxray no focal infiltrates Current Medications Acetaminophen (Tylenol -) 650 mg PO Q4H PRN PRN Reason: FEVER Last Admin: 12/22/17 22:47 Dose: 650 mg Albuterol/Ipratropium (Duoneb -) 1 amp NEB Q4HWA [facility] Last Admin: 12/24/17 06:25 Dose: 1 amp Aspirin (Asa -) 81 mg PO DAILY [facility] Last Admin: 12/23/17 09:51 Dose: 81 mg Digoxin (Lanoxin -) 0.125 mg PO DAILY [facility] Last Admin: 12/23/17 09:51 Dose: 0.125 mg Diltiazem HCl (Cardizem Cd -) 360 mg PO DAILY [facility] Last Admin: 12/23/17 09:51 Dose: 360 mg Donepezil HCl (Aricept -) 10 mg PO HS [facility] Last Admin: 12/23/17 21:21 Dose: 10 mg Ertapenem 1 gm/ Sodium (Chloride) 50 mls @ 100 mls/hr IVPB DAILY [facility] Losartan Potassium (Cozaar -) 25 mg PO DAILY@1800 [facility] Last Admin: 12/23/17 19:09 Dose: 25 mg Megestrol Acetate (Megace -) 40 mg PO DAILY [facility] Last Admin: 12/23/17 09:53 Dose: 40 mg Methimazole (Tapazole -) 10 mg PO AM [facility] Last Admin: 12/24/17 06:17 Dose: 10 mg Montelukast Sodium (Singulair -) 10 mg PO HS [facility] Last Admin: 12/23/17 21:21 Dose: 10 mg Multivitamins (Total B With C -) 1 each PO DAILY [facility] Last Admin: 12/23/17 09:52 Dose: 1 each Polyethylene Glycol (Miralax (For Daily Use) -) 17 gm PO DAILY [facility] Warfarin Sodium (Coumadin -) 2 mg PO DAILY@1800 [facility] Last Admin: 12/22/17 18:48 Dose: 2 mg a/p fevers- back on ertapenem, cxray negative, but more cough today will check for influenza chronic cholycystitis back on ertapenam gi/surgery f/u ongoing cultures 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
--- NOTE | 2017-12-24 09:43 | PN ---
Progress Note (short form) - Note Progress Note: Neurology History of Present Illness: 77 y/o F with PMH dementia, afib (on coumadin; s/p valve replacement), CHF, HTN , fatty liver disease, hypothyroidism, recently at [facility] (d/c yesterday for biliary colic), who was BIBEMS d/t weakness and lethargy. As per records, daughter stated pt was extremely weak and was "not being herself." Additionally , pt had decreased PO intake and decreased appetite during this time. Pt also endorses RUQ, inferior sternal pain over the past day. Stated that pain is similar to her biliary colic. Denies fever, chills, SOB, or changes in urinary or bowel function. Pt is a poor historian, and I was contacted for Dementia. CT head completed 12/15/17 reviewed and did not show acute changes, consistent with prior. She is able to tell me she's at [facility] but not able to tell me the date. Would not attempt to tell me month or year, poor effort. Can tell me name of President, Mary Ann, without difficulty. Aricept was increased to 10mg and can be continued. Has been stable during my evaluations. No side effects from Aricept adjustments. Using facemask this AM but comfortable, not tachypneic. Answering questions and without change in mental status. Active Medications Acetaminophen (Tylenol -) 650 mg PO Q4H PRN PRN Reason: FEVER Last Admin: 12/22/17 22:47 Dose: 650 mg Albuterol/Ipratropium (Duoneb -) 1 amp NEB Q4HWA [facility] Last Admin: 12/24/17 06:25 Dose: 1 amp Aspirin (Asa -) 81 mg PO DAILY [facility] Last Admin: 12/23/17 09:51 Dose: 81 mg Digoxin (Lanoxin -) 0.125 mg PO DAILY [facility] Last Admin: 12/23/17 09:51 Dose: 0.125 mg Diltiazem HCl (Cardizem Cd -) 360 mg PO DAILY [facility] Last Admin: 12/23/17 09:51 Dose: 360 mg Donepezil HCl (Aricept -) 10 mg PO HS [facility] Last Admin: 12/23/17 21:21 Dose: 10 mg Ertapenem 1 gm/ Sodium (Chloride) 50 mls @ 100 mls/hr IVPB DAILY [facility] Losartan Potassium (Cozaar -) 25 mg PO DAILY@1800 [facility] Last Admin: 12/23/17 19:09 Dose: 25 mg Megestrol Acetate (Megace -) 40 mg PO DAILY [facility] Last Admin: 12/23/17 09:53 Dose: 40 mg Methimazole (Tapazole -) 10 mg PO AM [facility] Last Admin: 12/24/17 06:17 Dose: 10 mg Montelukast Sodium (Singulair -) 10 mg PO HS [facility] Last Admin: 12/23/17 21:21 Dose: 10 mg Multivitamins (Total B With C -) 1 each PO DAILY [facility] Last Admin: 12/23/17 09:52 Dose: 1 each Polyethylene Glycol (Miralax (For Daily Use) -) 17 gm PO DAILY [facility] Warfarin Sodium (Coumadin -) 2 mg PO DAILY@1800 [facility] Last Admin: 12/22/17 18:48 Dose: 2 mg Physical Examination Vital Signs Period Temp Pulse Resp BP Sys/Urrutia Pulse Ox Last 24 Hr 98.6 F-100.1 F 76-93 18-20 134-151/75-83 97 Constitutional: Yes: Well Nourished, No Distress, Calm Cardiovascular: Yes: Regular Rate and Rhythm Respiratory: Yes: Regular Gastrointestinal: Yes: Normal Bowel Sounds, Soft Musculoskeletal: Yes: WNL Extremities: Yes: WNL Neurological: Awake, alert, does not know date, can tell me location and president, no CN deficits, strength intact, sensory intact, gait deferred Psychiatric: Yes: Alert Labs: CBCD WBC 4.5 K/mm3 (4.0-10.0) D 12/23/17 06:40 RBC 3.77 M/mm3 (3.60-5.2) 12/23/17 06:40 Hgb 10.9 GM/dL (10.7-15.3) 12/23/17 06:40 Hct 33.3 % (32.4-45.2) 12/23/17 06:40 MCV 88.5 fl (80-96) 12/23/17 06:40 MCHC 32.6 g/dl (32.0-36.0) 12/23/17 06:40 RDW 20.0 % (11.6-15.6) H 12/23/17 06:40 Plt Count 224 K/MM3 (134-434) 12/23/17 06:40 MPV 8.7 fl (7.5-11.1) 12/23/17 06:40 CMP Sodium 141 mmol/L (136-145) 12/23/17 06:40 Potassium 3.9 mmol/L (3.5-5.1) 12/23/17 06:40 Chloride 107 mmol/L (98-107) 12/23/17 06:40 Carbon Dioxide 22 mmol/L (21-32) 12/23/17 06:40 Anion Gap 12 (8-16) 12/23/17 06:40 BUN 7 mg/dL (7-18) 12/23/17 06:40 Creatinine 0.5 mg/dL (0.55-1.02) L 12/23/17 06:40 Creat Clearance w eGFR > 60 (>60) 12/23/17 06:40 Calcium 8.1 mg/dL (8.5-10.1) L 12/23/17 06:40 Total Bilirubin 0.3 mg/dL (0.2-1.0) D 12/23/17 06:40 AST 14 U/L (15-37) L 12/23/17 06:40 ALT < 6 U/L (12-78) L 12/23/17 06:40 Alkaline Phosphatase 57 U/L (45-117) 12/23/17 06:40 Total Protein 5.2 g/dl (6.4-8.2) L 12/23/17 06:40 Albumin 2.4 g/dl (3.4-5.0) L 12/23/17 06:40 CT head reviewed Plan 77 y/o F with PMH dementia, afib (on coumadin; s/p valve replacement), CHF, HTN , fatty liver disease, hypothyroidism, recently at [facility] (d/c yesterday for biliary colic), who was BIBEMS d/t weakness and lethargy. As per records, daughter stated pt was extremely weak and was "not being herself." Additionally , pt had decreased PO intake and decreased appetite during this time. Pt also endorses RUQ, inferior sternal pain over the past day. Stated that pain is similar to her biliary colic. I was contacted for Dementia. CT head completed 12/15/17 reviewed and did not show acute changes, consistent with prior. She is able to tell me she's at [facility] but not able to tell me the date. Says "" and then 1916. Does not know month, knows name of President Would treat underlying dehydration Increased PO intake Monitor Afib, on coumadin Aricept Increased to 10mg Likely delirium on superimposed dementia and therefore would treat underlying issues first but does appear to have progressive cognitive decline and therefore may benefit from increased Aricept Monitor mental status Appears to be stable No issues with increased Aricept 10mg, could possible increased to 20mg in future or add Namenda, but would hold off for now Using facemask this AM, no distress
[2017-12-24] MEDS ORDERED: ERTAPENEM SODIUM 1 GM/50 ML PRE-DOCKED IVPB SCH (10:00)
[2017-12-24] MEDS: ASPIRIN 81 MG CHEWABLE TABLETS PO SCH (10:14)
[2017-12-24] MEDS ORDERED: PT OWN MED DRAWER 7, Y5N ONE ×2 (10:14→11:56)
[2017-12-24] MEDS: DIGOXIN 0.125 MG TABLET (FP) PO SCH (10:14)
[2017-12-24] MEDS: ERTAPENEM SODIUM 1 GM in SODIUM CHLORIDE 50 ML IVPB SCH (10:15)
[2017-12-24] MEDS: VITAMIN B COMPLEX W/C COMBO TABLET (FP) PO SCH (10:16)
[2017-12-24] MEDS: MEGESTROL ACETATE 40 MG TABLET PO SCH (10:16)
--- NOTE | 2017-12-24 10:21 | PN ---
Progress Note, Physician Chief Complaint: Weakness, RUQ abdominal pain History of Present Illness: NAD, walked with Physical Therapy seen by ID, GI and Neurology On warfarin-sub therapeutic febrile over night - Current Medication List Current Medications: Active Medications Acetaminophen (Tylenol -) 650 mg PO Q4H PRN PRN Reason: FEVER Last Admin: 12/22/17 22:47 Dose: 650 mg Albuterol/Ipratropium (Duoneb -) 1 amp NEB Q4HWA [facility] Last Admin: 12/24/17 06:25 Dose: 1 amp Aspirin (Asa -) 81 mg PO DAILY [facility] Last Admin: 12/23/17 09:51 Dose: 81 mg Digoxin (Lanoxin -) 0.125 mg PO DAILY [facility] Last Admin: 12/23/17 09:51 Dose: 0.125 mg Diltiazem HCl (Cardizem Cd -) 360 mg PO DAILY [facility] Last Admin: 12/23/17 09:51 Dose: 360 mg Donepezil HCl (Aricept -) 10 mg PO HS [facility] Last Admin: 12/23/17 21:21 Dose: 10 mg Ertapenem 1 gm/ Sodium (Chloride) 50 mls @ 100 mls/hr IVPB DAILY [facility] Losartan Potassium (Cozaar -) 25 mg PO DAILY@1800 [facility] Last Admin: 12/23/17 19:09 Dose: 25 mg Megestrol Acetate (Megace -) 40 mg PO DAILY [facility] Last Admin: 12/23/17 09:53 Dose: 40 mg Methimazole (Tapazole -) 10 mg PO AM [facility] Last Admin: 12/24/17 06:17 Dose: 10 mg Montelukast Sodium (Singulair -) 10 mg PO HS [facility] Last Admin: 12/23/17 21:21 Dose: 10 mg Multivitamins (Total B With C -) 1 each PO DAILY [facility] Last Admin: 12/23/17 09:52 Dose: 1 each Polyethylene Glycol (Miralax (For Daily Use) -) 17 gm PO DAILY [facility] Warfarin Sodium (Coumadin -) 2 mg PO DAILY@1800 [facility] Last Admin: 12/22/17 18:48 Dose: 2 mg - Objective Vital Signs: Vital Signs Temperature 99.8 F H 12/24/17 06:00 Pulse Rate 89 12/24/17 06:00 Respiratory Rate 20 12/24/17 06:00 Blood Pressure 141/83 12/24/17 06:00 O2 Sat by Pulse Oximetry (%) 97 12/23/17 21:00 Constitutional: Yes: Well Nourished, No Distress, Calm Cardiovascular: Yes: Regular Rate and Rhythm Respiratory: Yes: Regular Gastrointestinal: Yes: Normal Bowel Sounds, Soft Musculoskeletal: Yes: WNL Extremities: Yes: WNL Edema: No Peripheral Pulses WNL: Yes Neurological: Yes: Alert, Oriented Psychiatric: Yes: Alert, Oriented Labs: CBC, BMP 12/23/17 06:40 12/23/17 06:40 INR, PTT INR 1.45 (0.82-1.09) H 12/23/17 06:30 Problem List - Problems (1) Leukocytosis Assessment/Plan: -improved -ID on board -IV abx restarted -repeat UC/BC pending -tylenol for fever > 100.0F Code(s): D72.829 - ELEVATED WHITE BLOOD CELL COUNT, UNSPECIFIED (2) Abdominal pain Assessment/Plan: -RUQ -HIDA scan with EF shows low EF -GI consult appreciated -2/2 to chronic cholecystitis Code(s): R10.9 - UNSPECIFIED ABDOMINAL PAIN (3) COPD (chronic obstructive pulmonary disease) Assessment/Plan: -nasal o2 -bronchodilators Code(s): J44.9 - CHRONIC OBSTRUCTIVE PULMONARY DISEASE, UNSPECIFIED (4) Atrial fibrillation with rapid ventricular response Code(s): I48.91 - UNSPECIFIED ATRIAL FIBRILLATION (5) DVT (deep venous thrombosis) Code(s): I82.409 - ACUTE EMBOLISM AND THOMBOS UNSP DEEP VN UNSP LOWER EXTREMITY Qualifiers: DVT location: non-extremity vein Chronicity: unspecified Qualified Code(s ): I82.90 - Acute embolism and thrombosis of unspecified vein (6) H/O heart valve replacement with bioprosthetic valve Code(s): Z95.3 - PRESENCE OF XENOGENIC HEART VALVE (7) Pulmonary embolism Code(s): I26.99 - OTHER PULMONARY EMBOLISM WITHOUT ACUTE COR PULMONALE (8) Altered mental status Assessment/Plan: -neurology consult appreciated -Aricept increased to 10 mg po daily Code(s): R41.82 - ALTERED MENTAL STATUS, UNSPECIFIED (9) Hypokalemia Assessment/Plan: -resolved -2/2 poor PO intake Code(s): E87.6 - HYPOKALEMIA Assessment/Plan see problem list -ON AC for afib, hx of DVT and PE-sub therapeutic -Warfarin 5 mg po today -Daily INR's -ID on board -/ pending -repeat labs -spoke to daughter Katie today, explain the risks and benefits of surgery, she would like to speak to Dr Mason as well. She will discuss her mother's situation with her siblings to come up with the decision.
[2017-12-24] MEDS: POLYETHYLENE GLYCOL 3350 119 GM BTL PO SCH (10:36)
[2017-12-24 11:53] LABS: INR 1.42 (0.82-1.09)
[2017-12-24 11:59] LABS: BASO % 0.8 % (0-2.0); EOS % 0.5 % (0-4.5); HEMATOCRIT 34.2 % (32.4-45.2); HEMOGLOBIN 11.4 GM/dL (10.7-15.3); LYMPH % 24.6 % (8-40); MCH 29.3 pg (25.7-33.7); MCHC 33.4 g/dl (32.0-36.0); MEAN CELL VOLUME 87.6 fl (80-96); MEAN PLT VOLUME 8.5 fl (7.5-11.1); MONO % 12.4 % (3.8-10.2); NEUT % 61.7 % (42.8-82.8); PLATELET COUNT 222 K/MM3 (134-434); RBC 3.91 M/mm3 (3.60-5.2); RDW 19.4 % (11.6-15.6); WHITE BLOOD COUNT 4.6 K/mm3 (4.0-10.0)
[2017-12-24 12:18] LABS: ALBUMIN 2.5 g/dl (3.4-5.0); ANION GAP 9 (8-16); BILIRUBIN,TOTAL 0.2 mg/dL (0.2-1.0); BLOOD UREA NITROGEN 6 mg/dL (7-18); CALCIUM 7.8 mg/dL (8.5-10.1); CHLORIDE 108 mmol/L (98-107); CO2 23 mmol/L (21-32); CREATININE 0.6 mg/dL (0.55-1.02); GLUCOSE,RANDOM 102 mg/dL (74-106); SGOT/AST 14 U/L (15-37); SGPT/ALT < 6 U/L (12-78); SODIUM 140 mmol/L (136-145); TOT PROT 5.5 g/dl (6.4-8.2)
[2017-12-24 12:19] LABS: ALK PHOS 60 U/L (45-117)
--- NOTE | 2017-12-24 14:14 | PN ---
Progress Note (short form) - Note Progress Note: No acute events Pain controlled On diet Vital Signs Period Temp Pulse Resp BP Sys/Urrutia Pulse Ox Last 24 Hr 98.7 F-100.1 F 84-93 18-20 121-150/66-83 97 Abd soft, no rebound, mild RUQ tenderness CBC,CMP WBC 4.6 K/mm3 (4.0-10.0) 12/24/17 11:00 RBC 3.91 M/mm3 (3.60-5.2) 12/24/17 11:00 Hgb 11.4 GM/dL (10.7-15.3) 12/24/17 11:00 Hct 34.2 % (32.4-45.2) 12/24/17 11:00 MCV 87.6 fl (80-96) 12/24/17 11:00 MCH 29.3 pg (25.7-33.7) 12/24/17 11:00 MCHC 33.4 g/dl (32.0-36.0) 12/24/17 11:00 RDW 19.4 % (11.6-15.6) H 12/24/17 11:00 Plt Count 222 K/MM3 (134-434) 12/24/17 11:00 MPV 8.5 fl (7.5-11.1) 12/24/17 11:00 Neutrophils % 61.7 % (42.8-82.8) 12/24/17 11:00 Lymphocytes % 24.6 % (8-40) 12/24/17 11:00 Monocytes % 12.4 % (3.8-10.2) H 12/24/17 11:00 Eosinophils % 0.5 % (0-4.5) 12/24/17 11:00 Basophils % 0.8 % (0-2.0) 12/24/17 11:00 Platelet Comment 12/17/17 16:10 Sodium 140 mmol/L (136-145) 12/24/17 11:00 Potassium 4.0 mmol/L (3.5-5.1) 12/24/17 11:00 Chloride 108 mmol/L (98-107) H 12/24/17 11:00 Carbon Dioxide 23 mmol/L (21-32) 12/24/17 11:00 Anion Gap 9 (8-16) 12/24/17 11:00 BUN 6 mg/dL (7-18) L 12/24/17 11:00 Creatinine 0.6 mg/dL (0.55-1.02) 12/24/17 11:00 Creat Clearance w eGFR > 60 (>60) 12/24/17 11:00 POC Glucometer 118 UNITS (80-120) 12/23/17 05:48 Random Glucose 102 mg/dL (74-106) 12/24/17 11:00 Calcium 7.8 mg/dL (8.5-10.1) L 12/24/17 11:00 Total Bilirubin 0.2 mg/dL (0.2-1.0) D 12/24/17 11:00 Direct Bilirubin < 0.2 mg/dL (0.0-0.2) 12/23/17 06:40 AST 14 U/L (15-37) L 12/24/17 11:00 ALT < 6 U/L (12-78) L 12/24/17 11:00 Alkaline Phosphatase 60 U/L (45-117) 12/24/17 11:00 Creatine Kinase 50 IU/L (26-192) 12/17/17 14:10 Troponin I < 0.02 ng/ml (0.00-0.05) 12/18/17 06:00 C-Reactive Protein 14.4 MG/DL (0.00-0.3) H 12/18/17 06:00 B-Natriuretic Peptide 1380.40 pg/ml (5-450) H 12/17/17 17:38 Total Protein 5.5 g/dl (6.4-8.2) L 12/24/17 11:00 Albumin 2.5 g/dl (3.4-5.0) L 12/24/17 11:00 Total Amylase 32 U/L (25-115) 12/17/17 17:38 Lipase 94 U/L (73-393) 12/17/17 16:10 TSH 2.07 uIU/ml (0.358-3.74) 12/20/17 06:00 Free T4 1.07 ng/dl (0.76-1.46) 12/20/17 06:00 Discussed with daughter She will discuss surgery vs nonoperative management with her family Leaning towards cholecystectomy Discussed risks and benefits If decides to proceed with surgery, would hold coumadin Can start IV heparin Cardiology clearance Awaiting family decision
--- NOTE | 2017-12-24 15:34 | PN ---
Progress Note, Physician Chief Complaint: RUQ abdominal pain History of Present Illness: Patient continues to deny abdominal pain with or without palpation, no nausea, no vomiting. Patient afebrile and tolerating regular diet. - Current Medication List Current Medications: Active Medications Acetaminophen (Tylenol -) 650 mg PO Q4H PRN PRN Reason: FEVER Last Admin: 12/22/17 22:47 Dose: 650 mg Albuterol/Ipratropium (Duoneb -) 1 amp NEB Q4HWA [facility] Last Admin: 12/24/17 13:50 Dose: 1 amp Aspirin (Asa -) 81 mg PO DAILY [facility] Last Admin: 12/24/17 10:14 Dose: 81 mg Digoxin (Lanoxin -) 0.125 mg PO DAILY [facility] Last Admin: 12/24/17 10:14 Dose: 0.125 mg Diltiazem HCl (Cardizem Cd -) 360 mg PO DAILY [facility] Last Admin: 12/24/17 10:15 Dose: 360 mg Donepezil HCl (Aricept -) 10 mg PO HS [facility] Last Admin: 12/23/17 21:21 Dose: 10 mg Ertapenem 1 gm/ Sodium (Chloride) 50 mls @ 100 mls/hr IVPB DAILY [facility] Last Admin: 12/24/17 10:15 Dose: 100 mls/hr Losartan Potassium (Cozaar -) 25 mg PO DAILY@1800 [facility] Last Admin: 12/23/17 19:09 Dose: 25 mg Megestrol Acetate (Megace -) 40 mg PO DAILY [facility] Last Admin: 12/24/17 10:16 Dose: 40 mg Methimazole (Tapazole -) 10 mg PO AM [facility] Last Admin: 12/24/17 06:17 Dose: 10 mg Montelukast Sodium (Singulair -) 10 mg PO HS [facility] Last Admin: 12/23/17 21:21 Dose: 10 mg Multivitamins (Total B With C -) 1 each PO DAILY [facility] Last Admin: 12/24/17 10:16 Dose: 1 each Polyethylene Glycol (Miralax (For Daily Use) -) 17 gm PO DAILY [facility] Last Admin: 12/24/17 10:36 Dose: 17 grams Warfarin Sodium (Coumadin -) 2 mg PO DAILY@1800 [facility] Last Admin: 12/22/17 18:48 Dose: 2 mg - Objective Vital Signs: Vital Signs Temperature 98.7 F 12/24/17 10:00 Pulse Rate 89 12/24/17 10:14 Respiratory Rate 20 12/24/17 10:00 Blood Pressure 121/66 12/24/17 10:00 O2 Sat by Pulse Oximetry (%) 97 12/23/17 21:00 Constitutional: Yes: Well Nourished, No Distress, Calm Eyes: Yes: Conjunctiva Clear HENT: Yes: Atraumatic Respiratory: Yes: Wheezes (B/L expiratory) Gastrointestinal: Yes: Normal Bowel Sounds. No: Distention, Rectal Bleeding, Tenderness, Tenderness, Epigastrium, Tenderness, Rebound, Vomiting Labs: CBC, BMP 12/24/17 11:00 12/24/17 11:00 INR, PTT INR 1.42 (0.82-1.09) H 12/24/17 11:00 Home Medication List Medication Instructions Recorded Confirmed Type Aspirin [ASA -] 81 mg PO DAILY 09/28/17 12/17/17 History Montelukast Na [Singulair -] 10 mg PO HS 09/28/17 12/17/17 History Budesonide [Pulmicort 0.25 mg 1 amp I[facility] BID 12/17/17 12/17/17 History Nebulizer -] Digoxin 125 mcg PO HS 12/17/17 12/17/17 History Donepezil HCl [Aricept] 5 mg PO HS 12/17/17 12/17/17 History Hydralazine HCl 10 mg PO AM 12/17/17 12/17/17 History Losartan Potassium 25 mg PO HS 12/17/17 12/17/17 History Simvastatin 10 mg PO HS 12/17/17 12/17/17 History Warfarin Sodium 4 mg PO HS 12/17/17 12/17/17 History Warfarin Sodium [Coumadin] 3 mg PO Q2D 12/17/17 12/17/17 History Active Medications Generic Name Dose Route Start Last Admin Trade Name Freq PRN Reason Stop Dose Admin Acetaminophen 650 mg 12/17/17 17:35 12/22/17 22:47 Tylenol - PO 650 mg Q4H PRN Administration FEVER Albuterol/Ipratropium 1 amp 12/23/17 14:00 12/24/17 13:50 Duoneb - NEB 1 amp Q4HWA [facility] Administration Aspirin 81 mg 12/18/17 10:00 12/24/17 10:14 Asa - PO 81 mg DAILY [facility] Administration Digoxin 0.125 mg 12/18/17 10:00 12/24/17 10:14 Lanoxin - PO 0.125 mg DAILY [facility] Administration Diltiazem HCl 360 mg 12/18/17 10:00 12/24/17 10:15 Cardizem Cd - PO 360 mg DAILY [facility] Administration Donepezil HCl 10 mg 12/19/17 22:00 12/23/17 21:21 Aricept - PO 10 mg HS [facility] Administration Ertapenem 1 gm/ Sodium 50 mls @ 100 mls/hr 12/24/17 10:00 12/24/17 10:15 Chloride IVPB 100 mls/hr DAILY [facility] Administration Losartan Potassium 25 mg 12/17/17 18:00 12/23/17 19:09 Cozaar - PO 25 mg DAILY@1800 [facility] Administration Megestrol Acetate 40 mg 12/21/17 10:00 12/24/17 10:16 Megace - PO 40 mg DAILY [facility] Administration Methimazole 10 mg 12/19/17 19:05 12/24/17 06:17 Tapazole - PO 10 mg AM [facility] Administration Montelukast Sodium 10 mg 12/17/17 22:00 12/23/17 21:21 Singulair - PO 10 mg HS [facility] Administration Multivitamins 1 each 12/21/17 10:00 12/24/17 10:16 Total B With C - PO 1 each DAILY [facility] Administration Polyethylene Glycol 17 gm 12/24/17 10:00 12/24/17 10:36 Miralax (For Daily Use) - PO 17 grams DAILY [facility] Administration Warfarin Sodium 2 mg 12/22/17 18:00 12/22/17 18:48 Coumadin - PO 2 mg DAILY@1800 [facility] Administration Problem List - Problems (1) Abdominal pain Assessment/Plan: Resolved Recommendation: If reoccurs will give protonix 40mg and reglan 5mg Code(s): R10.9 - UNSPECIFIED ABDOMINAL PAIN Qualifiers: Abdominal location: right upper quadrant Qualified Code(s): R10.11 - Right upper quadrant pain (2) Cholelithiasis Assessment/Plan: Recommendation; 1) continue conservative care as per daughter's request Code(s): K80.20 - CALCULUS OF GALLBLADDER W/O CHOLECYSTITIS W/O OBSTRUCTION Qualifiers: Cholecystitis acuity: acute and chronic Biliary obstruction: without biliary obstruction (3) Constipation Assessment/Plan: 2/2 to decreased ambulation recommendation: 1) continue on Miralax 17gram daily Code(s): K59.00 - CONSTIPATION, UNSPECIFIED
--- NOTE | 2017-12-24 17:10 | CONSULT ---
Consult Consult Specialty:: Hematology - History of Present Illness History of Present Illness: 77 y/o F with PMH dementia, afib (on coumadin; s/p valve replacement), CHF, HTN , fatty liver disease, hypothyroidism, recently presented to er for biliary colic), who was BIBEMS d/t weakness and lethargy since yesterday. 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 No: Diabetes Mellitus Additional Medical History: LEFT POPLITEAL DVT - Past Surgical History Past Surgical History: Yes: Tubal Ligation (laparoscopic), Valve Replacement ( mechanical mitral 2 wks ago) - Alcohol/Substance Use Hx Alcohol Use: No History of Substance Use: reports: None - Smoking History Smoking history: Never smoked Have you smoked in the past 12 months: No Aproximately how many cigarettes per day: 0 - Social History Usual Living Arrangement: Residential ADL: Independent History of Recent Travel: No Home Medications - Allergies Allergies/Adverse Reactions: Allergies Allergy/AdvReac Type Severity Reaction Status Date / Time ampicillin [Ampicillin] Allergy Severe Swelling Verified 12/17/17 14:22 codeine [Codeine] Allergy Swelling Verified 12/17/17 14:22 - Home Medications Home Medications: Ambulatory Orders Diltiazem Cd [Cardizem Cd -] 360 mg PO DAILY tab 08/13/17 Aspirin [ASA -] 81 mg PO DAILY 09/28/17 Montelukast Na [Singulair -] 10 mg PO HS 09/28/17 Furosemide [Lasix -] 40 mg PO DAILY #30 tablet 10/03/17 Methimazole [Tapazole -] 5 mg PO AM tablet 11/05/17 Budesonide [Pulmicort 0.25 mg Nebulizer -] 1 amp IH BID 12/17/17 Digoxin 125 mcg PO HS 12/17/17 Donepezil HCl [Aricept] 5 mg PO HS 12/17/17 Hydralazine HCl 10 mg PO AM 12/17/17 Losartan Potassium 25 mg PO HS 12/17/17 Simvastatin 10 mg PO HS 12/17/17 Warfarin Sodium 4 mg PO HS 12/17/17 Warfarin Sodium [Coumadin] 3 mg PO Q2D 12/17/17 Acetaminophen [Tylenol .Regular Strength -] 650 mg PO Q4H PRN tablet 12/22/17 Albuterol 2.5/Ipratropium 0.5 [Duoneb -] 1 amp NEB RQID amp 12/22/17 Folic Acid 1 mg PO DAILY #30 tablet 12/22/17 Linaclotide [Linzess] 72 mcg PO DAILY #30 capsule 12/22/17 Megestrol Acetate [Megace -] 40 mg PO DAILY tablet 12/22/17 Polyethylene Glycol 3350 [Miralax (For Daily Use) -] 17 gm PO DAILY #1 bottle Vitamin B Comp W-C [Total B with C -] 1 each PO DAILY tablet 12/22/17 Vitamin B Complex [B Complex] 1 each PO DAILY #30 tablet 12/22/17 Warfarin Na [Coumadin -] 1 mg PO DAILY@1800 #60 tablet 12/22/17 Family Disease History - Family Disease History Family Disease History: Diabetes: Father (HTN) Physical Exam Vital Signs: Vital Signs Temperature 98.7 F 12/24/17 10:00 Pulse Rate 89 12/24/17 10:14 Respiratory Rate 20 12/24/17 10:00 Blood Pressure 121/66 12/24/17 10:00 O2 Sat by Pulse Oximetry (%) 93 L 12/24/17 09:00 Constitutional: Yes: Calm Eyes: Yes: Conjunctiva Clear HENT: Yes: Atraumatic, Normocephalic Neck: Yes: Supple Cardiovascular: Yes: Regular Rate and Rhythm Respiratory: Yes: Regular, CTA Bilaterally Gastrointestinal: Yes: Normal Bowel Sounds, Soft, Tenderness, Rebound Musculoskeletal: Yes: WNL Extremities: Yes: WNL Edema: No Labs: CBC, BMP 12/24/17 11:00 12/24/17 11:00 Imaging - Results Ultrasound: Report Reviewed Assessment/Plan Afib/bio-MVR/DVT: sub-therapeutic INR as being anticipated for surgery, recommend IV heparin with cautious monitoring of CBC/PTT alfredo WILLIAM
[2017-12-24] MEDS: LOSARTAN POTASSIUM 25 MG TABLET PO SCH (18:07)
[2017-12-24] MEDS: WARFARIN NA 1 MG TABLET (FP) PO SCH (18:56)
[2017-12-24] MEDS ORDERED: HEPARIN INFUSION - 25,000 UNITS/500 ML INFUS.BAG IVPB SCH (19:30)
--- NOTE | 2017-12-24 19:47 | CON.CARD ---
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 Pt seen and examined today in nad. states she is feeling well currently. Denies any abdominal pain currently. states her sob and wheezing are at baseline overall improved but still mild wheeze. denies chest pain, palpitations, no edema. - History Source History Provided By: Patient Limitations to Obtaining History: No Limitations - Past Medical History SEAM CLOSER: Yes: 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 No: Diabetes Mellitus Additional Medical History: LEFT POPLITEAL DVT - Past Surgical History Past Surgical History: Yes: Tubal Ligation (laparoscopic), Valve Replacement ( mechanical mitral 2 wks ago) - Alcohol/Substance Use Hx Alcohol Use: No History of Substance Use: reports: None - Smoking History Smoking history: Never smoked Have you smoked in the past 12 months: No Aproximately how many cigarettes per day: 0 - Social History Usual Living Arrangement: Long-Term ADL: Independent History of Recent Travel: No Home Medications - Allergies Allergies/Adverse Reactions: Allergies Allergy/AdvReac Type Severity Reaction Status Date / Time ampicillin [Ampicillin] Allergy Severe Swelling Verified 12/17/17 14:22 codeine [Codeine] Allergy Swelling Verified 12/17/17 14:22 - Home Medications Home Medications: Ambulatory Orders Diltiazem Cd [Cardizem Cd -] 360 mg PO DAILY tab 08/13/17 Aspirin [ASA -] 81 mg PO DAILY 09/28/17 Montelukast Na [Singulair -] 10 mg PO HS 09/28/17 Furosemide [Lasix -] 40 mg PO DAILY #30 tablet 10/03/17 Methimazole [Tapazole -] 5 mg PO AM tablet 11/05/17 Budesonide [Pulmicort 0.25 mg Nebulizer -] 1 amp IH BID 12/17/17 Digoxin 125 mcg PO HS 12/17/17 Donepezil HCl [Aricept] 5 mg PO HS 12/17/17 Hydralazine HCl 10 mg PO AM 12/17/17 Losartan Potassium 25 mg PO HS 12/17/17 Simvastatin 10 mg PO HS 12/17/17 Warfarin Sodium 4 mg PO HS 12/17/17 Warfarin Sodium [Coumadin] 3 mg PO Q2D 12/17/17 Acetaminophen [Tylenol .Regular Strength -] 650 mg PO Q4H PRN tablet 12/22/17 Albuterol 2.5/Ipratropium 0.5 [Duoneb -] 1 amp NEB RQID amp 12/22/17 Folic Acid 1 mg PO DAILY #30 tablet 12/22/17 Linaclotide [Linzess] 72 mcg PO DAILY #30 capsule 12/22/17 Megestrol Acetate [Megace -] 40 mg PO DAILY tablet 12/22/17 Polyethylene Glycol 3350 [Miralax (For Daily Use) -] 17 gm PO DAILY #1 bottle Vitamin B Comp W-C [Total B with C -] 1 each PO DAILY tablet 12/22/17 Vitamin B Complex [B Complex] 1 each PO DAILY #30 tablet 12/22/17 Warfarin Na [Coumadin -] 1 mg PO DAILY@1800 #60 tablet 12/22/17 Family Disease History - Family Disease History Family Disease History: Diabetes: Father (HTN) Review of Systems - Review of Systems Constitutional: denies: No Symptoms, Chills, Diaphoresis, Fever, Lethargy, Loss of Appetite, Malaise, Night Sweats, Unintentional Wgt. Loss, Weakness, Other Eyes: denies: No Symptoms, Blind Spots, Blurred Vision, Double Vision, Eye Pain , Floaters, Photophobia, Recent Change in Vision, Other Neck: denies: No Symptoms, Decreased ROM, Lumps, Pain on Movement, Stiffness, Swollen Glands, Tenderness, Other Cardiovascular: denies: No Symptoms, Chest Pain, Edema, Palpitations, Shortness of Breath, Other Respiratory: reports: Exercise Intolerance, Wheezing. denies: No Symptoms, Cough, Hemoptysis, Orthopnea, PND, Snoring, SOB, SOB on Exertion, Other Gastrointestinal: reports: Abdominal Pain. denies: No Symptoms, Bloating, Constipation, Diarrhea, Dysphagia, Indigestion, Melena, Nausea, Rectal Bleeding , Vomiting, Vomiting Blood, Other Genitourinary: denies: No Symptoms, Burning, Discharge, Dysuria, Flank Pain, Frequency, Hematuria, Incontinence, Lesions, Menses, Pain, Testicular Mass, Testicular Pain, Testicular Swelling, Urgency, Vaginal Bleeding, Other Breasts: denies: No Symptoms Reported, See HPI, Breast Implants, Discharge from Nipple, Lumps, Pain, Skin Changes, Other Musculoskeletal: reports: Muscle Weakness. denies: No Symptoms, Back Pain, Crepitus, Decreased ROM, Extremity Pain, Joint Pain, Joint Swelling, Muscle Pain , Muscle Cramps, Other Integumentary: denies: No Symptoms, Blister, Bruising, Change in Color, Eczema, Erythema, Incision, Lesions, Lump, Pallor, Pruritis, Rash, Wound, Other Neurological: denies: No Symptoms, Change in LOC, Change in Speech, Confusion, Dizziness, Headache, Incoordination, Numbness, Parasthesia, Pre-Existing Deficit , Seizure, Syncope, Tremors, Unsteady Gait, Weakness, Other Endocrine: denies: No Symptoms, Excessive Sweating, Flushing, Increased Hunger, Increased Thirst, Intolerance to Cold, Intolerance to Heat, Unexplained Weight Gain, Unexplained Weight Loss, Other Hematology/Lymphatic: denies: No Symptoms, Easily Bruised, Excessive Bleeding, Swollen Glands, Other Psychiatric: denies: No Symptoms, Altered Sleep Pattern, Anxiety, Depression, Hallucinations, Panic, Paranoia, Suicidal, Other - Risk Factors Known Risk Factors: Yes: Hypercholesterolemia, Hypertension, Smoking Vital Signs: Vital Signs Temperature 98.6 F 12/24/17 17:14 Pulse Rate 90 12/24/17 17:14 Respiratory Rate 20 12/24/17 17:14 Blood Pressure 137/82 12/24/17 17:14 O2 Sat by Pulse Oximetry (%) 93 L 12/24/17 09:00 Constitutional: Yes: No Distress, Calm Eyes: Yes: Conjunctiva Clear, EOM Intact HENT: Yes: Atraumatic, Normocephalic Neck: Yes: Supple, Trachea Midline Respiratory: Yes: Diminished, Wheezes. No: Regular, Rales, Rhonchi, SOB Gastrointestinal: Yes: Normal Bowel Sounds, Soft. No: Distention, Tenderness Cardiovascular: Yes: Pulse Irregular. No: Regular Rate and Rhythm, Bradycardia , Tachycardia, Gallop, Rub, Varicosities JVD: No Carotid Bruit: No PMI: Non-Displaced Heart Sounds: Yes: S1, S2. No: Split S2, S3, S4, Clicks, Gallop, Rub, Bruit Murmur: No: Systolic Murmur, Diastolic Murmur Musculoskeletal: Yes: Muscle Weakness Extremities: Yes: WNL Edema: No Peripheral Pulses WNL: Yes Peripheral Pulses: 2+ Left Doralis Pedis, 2+ Right Dorsalis Pedis Integumentary: Yes: WNL Neurological: Yes: Alert, Oriented Psychiatric: Yes: Alert, Oriented - Other Data Labs, Other Data: CBC, BMP 12/24/17 11:00 12/24/17 11:00 INR, PTT INR 1.42 (0.82-1.09) H 12/24/17 11:00 ekg-Afib, HR controlled, NSST Echo: Report Reviewed Prior Cardiac Procedures: Valve Surgery Imaging - Results Chest X-ray: Report Reviewed, Image Reviewed EKG: Report Reviewed, Image Reviewed Other: Report Reviewed, Image Reviewed Assessment/Plan 77 year old woman with a 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 Pt seen and examined today in nad. states she is feeling well currently. Denies any abdominal pain currently. states her sob and wheezing are at baseline overall improved but still mild wheeze. denies chest pain, palpitations, no edema. Preop cardiac evaluation -still uncertain if pt will require cholecystectomy -if she does require surgery there are currently no absolute cardiac contraindications as she is currently euvolemic, HR is controlled, and HTN is controlled, however would need to adjust her anticoagulation in the perioperative period -currently wheezing at her baseline, c/w her COPD, would recc having pulmonary see her they know her well, especially if planning for surgery AFib-HR adequately controlled currently, INR subtherapeutic -cont cardizem and digoxin for now for rate control, need to clarify as digoxin was held on last visit -pt on heparin gtt now to bridge to a therapeutic INR or to bridge if surgery is needed -caution to maintain therapeutic window with INR and PTT as pt did have issues with a hematoma and anemia on prior admission Bio MVR-stable -outpatient f/up HTN-Adequately controlled -cont current medical regimen Chronic systolic/Diastolic CHF-euvolemic -euvolemic now, not currently on Lasix, need to clarify if she has been on standing po Lasix as outpatient -current wheezing c/w her COPD
[2017-12-24] MEDS: MONTELUKAST NA 10 MG TABLET PO SCH (21:11)
[2017-12-24] MEDS: DONEPEZIL HCL 10 MG TABLET (FP) PO SCH (21:11)
[2017-12-24 21:21] LABS: HEMATOCRIT 33.8 % (32.4-45.2); HEMOGLOBIN 10.9 GM/dL (10.7-15.3); MCH 28.5 pg (25.7-33.7); MCHC 32.3 g/dl (32.0-36.0); MEAN CELL VOLUME 88.2 fl (80-96); MEAN PLT VOLUME 8.3 fl (7.5-11.1); PLATELET COUNT 226 K/MM3 (134-434); RBC 3.84 M/mm3 (3.60-5.2); RDW 19.3 % (11.6-15.6); WHITE BLOOD COUNT 4.8 K/mm3 (4.0-10.0)
[2017-12-24 21:35] LABS: INR 1.42 (0.82-1.09)
[2017-12-24 21:38] LABS: ACTIVATED PTT 30.6 SECONDS (26.9-34.4)
[2017-12-25] MEDS: ALBUTEROL SO4 2.5/IPRATROPIUM 0.5 INH SOL 3 ML VIAL.NEB. NEB SCH ×3 (06:30→13:40)
[2017-12-25] MEDS: METHIMAZOLE 5 MG TABLET (FP) PO SCH (07:41)
[2017-12-25 08:00] LABS: BASO % 0.5 % (0-2.0); EOS % 0.3 % (0-4.5); HEMATOCRIT 36.3 % (32.4-45.2); HEMOGLOBIN 11.9 GM/dL (10.7-15.3); LYMPH % 36.1 % (8-40); MCH 28.6 pg (25.7-33.7); MCHC 32.6 g/dl (32.0-36.0); MEAN CELL VOLUME 87.7 fl (80-96); MEAN PLT VOLUME 8.1 fl (7.5-11.1); MONO % 11.7 % (3.8-10.2); NEUT % 51.4 % (42.8-82.8); PLATELET COUNT 211 K/MM3 (134-434); RBC 4.14 M/mm3 (3.60-5.2); RDW 19.9 % (11.6-15.6); WHITE BLOOD COUNT 5.5 K/mm3 (4.0-10.0)
[2017-12-25 08:21] LABS: INR 1.42 (0.82-1.09); PROTHROMBIN TIME (PATIENT) 16.1 SEC (9.98-11.88)
[2017-12-25 08:33] LABS: ALBUMIN 2.5 g/dl (3.4-5.0); ANION GAP 15 (8-16); BILIRUBIN,TOTAL 0.6 mg/dL (0.2-1.0); BLOOD UREA NITROGEN 5 mg/dL (7-18); CALCIUM 8.1 mg/dL (8.5-10.1); CHLORIDE 103 mmol/L (98-107); CO2 20 mmol/L (21-32); CREATININE 0.6 mg/dL (0.55-1.02); GLUCOSE,RANDOM 80 mg/dL (74-106); SGOT/AST 18 U/L (15-37); SGPT/ALT < 6 U/L (12-78); SODIUM 138 mmol/L (136-145); TOT PROT 5.8 g/dl (6.4-8.2)
[2017-12-25 08:34] LABS: ALK PHOS 67 U/L (45-117)
--- NOTE | 2017-12-25 09:56 | PN ---
Progress Note (short form) - Note Progress Note: Neurology History of Present Illness: 77 y/o F with PMH dementia, afib (on coumadin; s/p valve replacement), CHF, HTN , fatty liver disease, hypothyroidism, recently at [facility] (d/c yesterday for biliary colic), who was BIBEMS d/t weakness and lethargy. As per records, daughter stated pt was extremely weak and was "not being herself." Additionally , pt had decreased PO intake and decreased appetite during this time. Pt also endorses RUQ, inferior sternal pain over the past day. Stated that pain is similar to her biliary colic. Denies fever, chills, SOB, or changes in urinary or bowel function. Pt is a poor historian, and I was contacted for Dementia. CT head completed 12/15/17 reviewed and did not show acute changes, consistent with prior. She is able to tell me she's at [facility] but not able to tell me the date. Would not attempt to tell me month or year, poor effort. Can tell me name of President, [place], without difficulty. Aricept was increased to 10mg and can be continued. Has been stable during my evaluations. No side effects from Aricept adjustments. Using facemask again this AM, remains comfortable, not tachypneic. Answering questions and without change in mental status. Active Medications Acetaminophen (Tylenol -) 650 mg PO Q4H PRN PRN Reason: FEVER Last Admin: 12/22/17 22:47 Dose: 650 mg Albuterol/Ipratropium (Duoneb -) 1 amp NEB Q4HWA [facility] Last Admin: 12/25/17 06:30 Dose: 1 amp Digoxin (Lanoxin -) 0.125 mg PO DAILY [facility] Last Admin: 12/24/17 10:14 Dose: 0.125 mg Diltiazem HCl (Cardizem Cd -) 360 mg PO DAILY [facility] Last Admin: 12/24/17 10:15 Dose: 360 mg Donepezil HCl (Aricept -) 10 mg PO HS [facility] Last Admin: 12/24/17 21:11 Dose: 10 mg Ertapenem 1 gm/ Sodium (Chloride) 50 mls @ 100 mls/hr IVPB DAILY [facility] Last Admin: 12/24/17 10:15 Dose: 100 mls/hr Losartan Potassium (Cozaar -) 25 mg PO DAILY@1800 [facility] Last Admin: 12/24/17 18:07 Dose: 25 mg Megestrol Acetate (Megace -) 40 mg PO DAILY [facility] Last Admin: 12/24/17 10:16 Dose: 40 mg Methimazole (Tapazole -) 10 mg PO AM [facility] Last Admin: 12/25/17 07:41 Dose: Not Given Montelukast Sodium (Singulair -) 10 mg PO HS [facility] Last Admin: 12/24/17 21:11 Dose: 10 mg Multivitamins (Total B With C -) 1 each PO DAILY [facility] Last Admin: 12/24/17 10:16 Dose: 1 each Polyethylene Glycol (Miralax (For Daily Use) -) 17 gm PO DAILY [facility] Last Admin: 12/24/17 10:36 Dose: 17 grams Physical Examination Vital Signs Period Temp Pulse Resp BP Sys/Urr[place]ia Pulse Ox Last 24 Hr 98.6 F-100 F 84-90 20-20 121-153/66-97 93 Constitutional: Yes: Well Nourished, No Distress, Calm Cardiovascular: Yes: Regular Rate and Rhythm Respiratory: Yes: Regular Gastrointestinal: Yes: Normal Bowel Sounds, Soft Musculoskeletal: Yes: WNL Extremities: Yes: WNL Neurological: Awake, alert, does not know date, can tell me location and president, no CN deficits, strength intact, sensory intact, gait deferred Psychiatric: Yes: Alert Labs: CBCD WBC 5.5 K/mm3 (4.0-10.0) 12/25/17 06:30 RBC 4.14 M/mm3 (3.60-5.2) 12/25/17 06:30 Hgb 11.9 GM/dL (10.7-15.3) 12/25/17 06:30 Hct 36.3 % (32.4-45.2) 12/25/17 06:30 MCV 87.7 fl (80-96) 12/25/17 06:30 MCHC 32.6 g/dl (32.0-36.0) 12/25/17 06:30 RDW 19.9 % (11.6-15.6) H 12/25/17 06:30 Plt Count 211 K/MM3 (134-434) 12/25/17 06:30 MPV 8.1 fl (7.5-11.1) 12/25/17 06:30 CMP Sodium 138 mmol/L (136-145) 12/25/17 06:30 Potassium 4.0 mmol/L (3.5-5.1) 12/25/17 06:30 Chloride 103 mmol/L (98-107) 12/25/17 06:30 Carbon Dioxide 20 mmol/L (21-32) L 12/25/17 06:30 Anion Gap 15 (8-16) 12/25/17 06:30 BUN 5 mg/dL (7-18) L 12/25/17 06:30 Creatinine 0.6 mg/dL (0.55-1.02) 12/25/17 06:30 Creat Clearance w eGFR > 60 (>60) 12/25/17 06:30 Calcium 8.1 mg/dL (8.5-10.1) L 12/25/17 06:30 Total Bilirubin 0.6 mg/dL (0.2-1.0) D 12/25/17 06:30 AST 18 U/L (15-37) 12/25/17 06:30 ALT < 6 U/L (12-78) L 12/25/17 06:30 Alkaline Phosphatase 67 U/L (45-117) 12/25/17 06:30 Total Protein 5.8 g/dl (6.4-8.2) L 12/25/17 06:30 Albumin 2.5 g/dl (3.4-5.0) L 12/25/17 06:30 CT head reviewed Plan 77 y/o F with PMH dementia, afib (on coumadin; s/p valve replacement), CHF, HTN , fatty liver disease, hypothyroidism, recently at [facility] (d/c yesterday for biliary colic), who was BIBEMS d/t weakness and lethargy. As per records, daughter stated pt was extremely weak and was "not being herself." Additionally , pt had decreased PO intake and decreased appetite during this time. Pt also endorses RUQ, inferior sternal pain over the past day. Stated that pain is similar to her biliary colic. I was contacted for Dementia. CT head completed 12/15/17 reviewed and did not show acute changes, consistent with prior. She is able to tell me she's at [facility] but not able to tell me the date. Says "17" and then 1916. Does not know month, knows name of President Would treat underlying dehydration Increased PO intake Monitor Afib, on coumadin Aricept Increased to 10mg Likely delirium on superimposed dementia and therefore would treat underlying issues first but does appear to have progressive cognitive decline and therefore may benefit from increased Aricept Monitor mental status Appears to be stable No issues with increased Aricept 10mg, could possible increased to 20mg in future or add Namenda, but would hold off for now Using facemask this AM, no distress manager stone coordinating dispo plan, note reviewed
--- NOTE | 2017-12-25 10:19 | PN ---
Progress Note, Physician Chief Complaint: Weakness, RUQ abdominal pain History of Present Illness: NAD, Warfarin on hold, was started on heparin drip as recommended by Hematology, on hold for anticipated Cholecystectomy surgery today Wheezing, to be seen by Pulmonary for clearance Cleared by Cardiology for surgery Post op anticoagulation re-initiation once hemostasis is achieved - Current Medication List Current Medications: Active Medications Acetaminophen (Tylenol -) 650 mg PO Q4H PRN PRN Reason: FEVER Last Admin: 12/22/17 22:47 Dose: 650 mg Albuterol/Ipratropium (Duoneb -) 1 amp NEB Q4HWA [facility] Last Admin: 12/25/17 06:30 Dose: 1 amp Digoxin (Lanoxin -) 0.125 mg PO DAILY [facility] Last Admin: 12/24/17 10:14 Dose: 0.125 mg Diltiazem HCl (Cardizem Cd -) 360 mg PO DAILY [facility] Last Admin: 12/24/17 10:15 Dose: 360 mg Donepezil HCl (Aricept -) 10 mg PO HS [facility] Last Admin: 12/24/17 21:11 Dose: 10 mg Ertapenem 1 gm/ Sodium (Chloride) 50 mls @ 100 mls/hr IVPB DAILY [facility] Last Admin: 12/24/17 10:15 Dose: 100 mls/hr Losartan Potassium (Cozaar -) 25 mg PO DAILY@1800 [facility] Last Admin: 12/24/17 18:07 Dose: 25 mg Megestrol Acetate (Megace -) 40 mg PO DAILY [facility] Last Admin: 12/24/17 10:16 Dose: 40 mg Methimazole (Tapazole -) 10 mg PO AM [facility] Last Admin: 12/25/17 07:41 Dose: Not Given Montelukast Sodium (Singulair -) 10 mg PO HS [facility] Last Admin: 12/24/17 21:11 Dose: 10 mg Multivitamins (Total B With C -) 1 each PO DAILY [facility] Last Admin: 12/24/17 10:16 Dose: 1 each Polyethylene Glycol (Miralax (For Daily Use) -) 17 gm PO DAILY [facility] Last Admin: 12/24/17 10:36 Dose: 17 grams - Objective Vital Signs: Vital Signs Temperature 100 F H 12/25/17 06:00 Pulse Rate 87 12/25/17 06:00 Respiratory Rate 20 12/25/17 06:00 Blood Pressure 153/97 12/25/17 06:00 O2 Sat by Pulse Oximetry (%) 93 L 12/24/17 21:00 Constitutional: Yes: Well Nourished, No Distress, Calm Cardiovascular: Yes: Pulse Irregular Respiratory: Yes: Regular, Wheezes (diffuse) Gastrointestinal: Yes: Normal Bowel Sounds, Soft Musculoskeletal: Yes: Muscle Weakness Extremities: Yes: WNL Edema: No Peripheral Pulses WNL: Yes Neurological: Yes: Alert, Pre-Existing Deficit Psychiatric: Yes: Alert Labs: CBC, BMP 12/25/17 06:30 12/25/17 06:30 INR, PTT INR 1.42 (0.82-1.09) H 12/25/17 06:30 Problem List - Problems (1) Abdominal pain Assessment/Plan: -RUQ -HIDA scan with EF shows low EF -GI consult appreciated -2/2 to chronic cholecystitis -for cholecystectomy today -fever 2/2 to cholecystitis Code(s): R10.9 - UNSPECIFIED ABDOMINAL PAIN (2) COPD (chronic obstructive pulmonary disease) Assessment/Plan: -nasal o2 -bronchodilators -repeat CXR showed no change -Awaiting Pulmonary clearance for surgery Code(s): J44.9 - CHRONIC OBSTRUCTIVE PULMONARY DISEASE, UNSPECIFIED (3) Atrial fibrillation with rapid ventricular response Code(s): I48.91 - UNSPECIFIED ATRIAL FIBRILLATION (4) DVT (deep venous thrombosis) Code(s): I82.409 - ACUTE EMBOLISM AND THOMBOS UNSP DEEP VN UNSP LOWER EXTREMITY Qualifiers: DVT location: non-extremity vein Chronicity: unspecified Qualified Code(s ): I82.90 - Acute embolism and thrombosis of unspecified vein (5) H/O heart valve replacement with bioprosthetic valve Code(s): Z95.3 - PRESENCE OF XENOGENIC HEART VALVE (6) Pulmonary embolism Code(s): I26.99 - OTHER PULMONARY EMBOLISM WITHOUT ACUTE COR PULMONALE (7) Altered mental status Assessment/Plan: -neurology consult appreciated -Aricept increased to 10 mg po daily Code(s): R41.82 - ALTERED MENTAL STATUS, UNSPECIFIED Assessment/Plan see problem list
[2017-12-25] MEDS ORDERED: PT OWN MED DRAWER 7, Y5N ONE (10:31)
[2017-12-25] MEDS: VITAMIN B COMPLEX W/C COMBO TABLET (FP) PO SCH (10:37)
[2017-12-25] MEDS: MEGESTROL ACETATE 40 MG TABLET PO SCH (10:37)
[2017-12-25] MEDS: POLYETHYLENE GLYCOL 3350 119 GM BTL PO SCH (10:37)
[2017-12-25] MEDS: DIGOXIN 0.125 MG TABLET (FP) PO SCH (10:40)
--- NOTE | 2017-12-25 10:40 | CON.PULM ---
Consult Consult Specialty:: PULM/CCM Referred by:: STACEY Reason for Consultation:: Pulmonary clearance - History of Present Illness Chief Complaint: abdominal pain History of Present Illness: 77 F, well known to me from multiple admissions. Patient admitted 7 times in the last 12 months for COPD/CHF exacerbations. Has been relatively stable in the last few months. PMH of COPD, dementia, afib (on coumadin; s/p valve replacement), CHF, HTN, fatty liver disease, hypothyroidism, and recurrent biliary colic. Admitted via the ER due to lethargy. Workup suggests that her symptoms are due to worsening biliary colic. Patient is drowsy but arousble. She is in NAD on RA. CXR: no acute process. - History Source History Provided By: Significant Other, Medical Record Limitations to Obtaining History: Dementia - Past Medical History [employer]: Yes: 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 No: Diabetes Mellitus Additional Medical History: LEFT POPLITEAL DVT - Past Surgical History Past Surgical History: Yes: Tubal Ligation (laparoscopic), Valve Replacement ( mechanical mitral 2 wks ago) - Alcohol/Substance Use Hx Alcohol Use: No History of Substance Use: reports: None - Smoking History Smoking history: Never smoked Have you smoked in the past 12 months: No Aproximately how many cigarettes per day: 0 - Social History Usual Living Arrangement: [facility] ADL: Independent History of Recent Travel: No Home Medications - Allergies Allergies/Adverse Reactions: Allergies Allergy/AdvReac Type Severity Reaction Status Date / Time ampicillin [Ampicillin] Allergy Severe Swelling Verified 12/17/17 14:22 codeine [Codeine] Allergy Swelling Verified 12/17/17 14:22 - Home Medications Home Medications: Ambulatory Orders Diltiazem Cd [Cardizem Cd -] 360 mg PO DAILY tab 08/13/17 Aspirin [ASA -] 81 mg PO DAILY 09/28/17 Montelukast Na [Singulair -] 10 mg PO HS 09/28/17 Furosemide [Lasix -] 40 mg PO DAILY #30 tablet 10/03/17 Methimazole [Tapazole -] 5 mg PO AM tablet 11/05/17 Budesonide [Pulmicort 0.25 mg Nebulizer -] 1 amp IH BID 12/17/17 Digoxin 125 mcg PO HS 12/17/17 Donepezil HCl [Aricept] 5 mg PO HS 12/17/17 Hydralazine HCl 10 mg PO AM 12/17/17 Losartan Potassium 25 mg PO HS 12/17/17 Simvastatin 10 mg PO HS 12/17/17 Warfarin Sodium 4 mg PO HS 12/17/17 Warfarin Sodium [Coumadin] 3 mg PO Q2D 12/17/17 Acetaminophen [Tylenol .Regular Strength -] 650 mg PO Q4H PRN tablet 12/22/17 Albuterol 2.5/Ipratropium 0.5 [Duoneb -] 1 amp NEB RQID amp 12/22/17 Folic Acid 1 mg PO DAILY #30 tablet 12/22/17 Linaclotide [Linzess] 72 mcg PO DAILY #30 capsule 12/22/17 Megestrol Acetate [Megace -] 40 mg PO DAILY tablet 12/22/17 Polyethylene Glycol 3350 [Miralax (For Daily Use) -] 17 gm PO DAILY #1 bottle Vitamin B Comp W-C [Total B with C -] 1 each PO DAILY tablet 12/22/17 Vitamin B Complex [B Complex] 1 each PO DAILY #30 tablet 12/22/17 Warfarin Na [Coumadin -] 1 mg PO DAILY@1800 #60 tablet 12/22/17 Family Disease History - Family Disease History Family Disease History: Diabetes: Father (HTN) Review of Systems Unable to obtain ROS, reason: Poor historian - Review of Systems Constitutional: reports: Lethargy, Malaise Eyes: reports: No Symptoms HENT: reports: No Symptoms Neck: reports: No Symptoms Cardiovascular: denies: Chest Pain, Edema, Palpitations, Shortness of Breath Respiratory: reports: Cough, Snoring. denies: Hemoptysis, SOB, SOB on Exertion Gastrointestinal: reports: Abdominal Pain, Bloating Genitourinary: reports: No Symptoms Breasts: reports: No Symptoms Reported Musculoskeletal: reports: No Symptoms Integumentary: reports: No Symptoms Neurological: reports: No Symptoms Endocrine: reports: No Symptoms Hematology/Lymphatic: reports: No Symptoms Psychiatric: reports: No Symptoms Physical Exam Vital Sings: Vital Signs Temperature 100 F H 12/25/17 06:00 Pulse Rate 87 12/25/17 06:00 Respiratory Rate 20 12/25/17 06:00 Blood Pressure 153/97 12/25/17 06:00 O2 Sat by Pulse Oximetry (%) 93 L 12/24/17 21:00 Constitutional: Yes: No Distress Eyes: Yes: Conjunctiva Clear, EOM Intact HENT: Yes: Atraumatic, Normocephalic Neck: Yes: Supple, Trachea Midline Cardiovascular: Yes: Regular Rate and Rhythm Respiratory: Yes: Cough, Wheezes. No: Accessory Muscle Use, Rales, Rhonchi ...Inspection: Yes: WNL Gastrointestinal: Yes: Normal Bowel Sounds, Soft Musculoskeletal: Yes: WNL Extremities: Yes: WNL Edema: No Peripheral Pulses WNL: Yes Neurological: Yes: Confusion Labs: CBC, BMP 12/25/17 06:30 12/25/17 06:30 Imaging - Results Chest X-ray: Report Reviewed, Image Reviewed Problem List - Problems (1) Abdominal pain Code(s): R10.9 - UNSPECIFIED ABDOMINAL PAIN Qualifiers: Abdominal location: right upper quadrant Qualified Code(s): R10.11 - Right upper quadrant pain (2) Chronic cholecystitis Code(s): K81.1 - CHRONIC CHOLECYSTITIS (3) Altered mental status Code(s): R41.82 - ALTERED MENTAL STATUS, UNSPECIFIED (4) Asthma Code(s): J45.909 - UNSPECIFIED ASTHMA, UNCOMPLICATED Qualifiers: Asthma severity: mild persistent (5) Atrial fibrillation Code(s): I48.91 - UNSPECIFIED ATRIAL FIBRILLATION Qualifiers: Atrial fibrillation type: permanent Qualified Code(s): I48.2 - Chronic atrial fibrillation (6) CHF (congestive heart failure) Code(s): I50.9 - HEART FAILURE, UNSPECIFIED (7) COPD (chronic obstructive pulmonary disease) Code(s): J44.9 - CHRONIC OBSTRUCTIVE PULMONARY DISEASE, UNSPECIFIED (8) Cholelithiasis Code(s): K80.20 - CALCULUS OF GALLBLADDER W/O CHOLECYSTITIS W/O OBSTRUCTION Qualifiers: Cholelithiasis location: gallbladder Cholecystitis presence: without cholecystitis Biliary obstruction: without biliary obstruction Qualified Code(s): K80.20 - Calculus of gallbladder without cholecystitis without obstruction (9) Confusion Code(s): R41.0 - DISORIENTATION, UNSPECIFIED (10) Diabetes Code(s): E11.9 - TYPE 2 DIABETES MELLITUS WITHOUT COMPLICATIONS (11) H/O heart valve replacement with bioprosthetic valve Code(s): Z95.3 - PRESENCE OF XENOGENIC HEART VALVE (12) Hyperthyroidism Code(s): E05.90 - THYROTOXICOSIS, UNSP WITHOUT THYROTOXIC CRISIS OR STORM (13) Left atrial dilatation Code(s): I51.7 - CARDIOMEGALY (14) Mitral regurgitation Code(s): I34.0 - NONRHEUMATIC MITRAL (VALVE) INSUFFICIENCY Qualifiers: Cardiac valve disease etiology: nonrheumatic Qualified Code(s): I34.0 - Nonrheumatic mitral (valve) insufficiency (15) VHD (valvular heart disease) Code(s): I38 - ENDOCARDITIS, VALVE UNSPECIFIED Assessment/Plan At present, Mitali's COPD is stable, she does have an intermittent mild expiratory wheeze. The overall impression is that she would benefit clinically from a cholecystectomy which may cause a sepsis process if not intervened upon. Although there she as not had formal testing she does have risk factors for Sleep Apnea. Ms Magaña is at an increased but reasonable risk for anesthesia / surgical intervention. There is no Pulmonary contraindication for OR. PLAN: Medrol prior to OR BD TX PRN AC to be resumed when cleared by surgery NIPPV may be useful in the post-op period If status is tenuous after OR, can place in a monitored setting Will follow. Dr Gonzales
[2017-12-25] MEDS: ERTAPENEM SODIUM 1 GM in SODIUM CHLORIDE 50 ML IVPB SCH (10:41)
[2017-12-25] MEDS ORDERED: methylPREDNISolone NA SUCC 125 MG/2 ML VIAL IVPUSH ONE (10:49)
[2017-12-25] MEDS ORDERED: ETOMIDATE 20 MG/10 ML AMPUL IVPUSH ONE (11:45)
[2017-12-25] MEDS ORDERED: fentaNYL CITRATE 250 MCG/5 ML VIAL ONE ×2 (11:46→12:21)
[2017-12-25] MEDS ORDERED: SUCCINYLCHOLINE CHLORIDE 200 MG/10 ML VIAL ONE (11:46)
[2017-12-25] MEDS ORDERED: PROPOFOL 20 ML ONE ×2 (11:46)
[2017-12-25] MEDS ORDERED: ROCURONIUM BROMIDE 50 MG/5 ML VIAL ONE (11:46)
[2017-12-25] MEDS ORDERED: BUPIVACAINE HCL/PF 0.5% (5MG/ML) 10 ML VIAL IJ ONE (12:30)
[2017-12-25] MEDS ORDERED: NEOSTIGMINE METHYLSULFATE 0.5 MG/ML - 10 ML MDV ONE (13:29)
--- NOTE | 2017-12-25 13:37 | PN ---
Progress Note, Physician History of Present Illness: seen and examined today in [facility]. decision was made to take pt for Lap nasrin today. pt was seen prior to surgery. no overnight events. no new complaints. - Current Medication List Current Medications: Active Medications Acetaminophen (Tylenol -) 650 mg PO Q4H PRN PRN Reason: FEVER Last Admin: 12/22/17 22:47 Dose: 650 mg Albuterol/Ipratropium (Duoneb -) 1 amp NEB Q4HWA [facility] Last Admin: 12/25/17 09:50 Dose: 1 amp Digoxin (Lanoxin -) 0.125 mg PO DAILY [facility] Last Admin: 12/25/17 10:40 Dose: 0.125 mg Diltiazem HCl (Cardizem Cd -) 360 mg PO DAILY [facility] Last Admin: 12/25/17 10:41 Dose: 360 mg Donepezil HCl (Aricept -) 10 mg PO HS [facility] Last Admin: 12/24/17 21:11 Dose: 10 mg Ertapenem 1 gm/ Sodium (Chloride) 50 mls @ 100 mls/hr IVPB DAILY [facility] Last Admin: 12/25/17 10:41 Dose: 100 mls/hr Losartan Potassium (Cozaar -) 25 mg PO DAILY@1800 [facility] Last Admin: 12/24/17 18:07 Dose: 25 mg Megestrol Acetate (Megace -) 40 mg PO DAILY [facility] Last Admin: 12/25/17 10:37 Dose: Not Given Methimazole (Tapazole -) 10 mg PO AM [facility] Last Admin: 12/25/17 07:41 Dose: Not Given Montelukast Sodium (Singulair -) 10 mg PO HS [facility] Last Admin: 12/24/17 21:11 Dose: 10 mg Multivitamins (Total B With C -) 1 each PO DAILY [facility] Last Admin: 12/25/17 10:37 Dose: Not Given Polyethylene Glycol (Miralax (For Daily Use) -) 17 gm PO DAILY [facility] Last Admin: 12/25/17 10:37 Dose: Not Given - Objective Vital Signs: Vital Signs Temperature 100 F H 12/25/17 06:00 Pulse Rate 100 H 12/25/17 10:40 Respiratory Rate 20 12/25/17 06:00 Blood Pressure 153/97 12/25/17 06:00 O2 Sat by Pulse Oximetry (%) 93 L 12/24/17 21:00 Constitutional: Yes: No Distress, Calm Eyes: Yes: Conjunctiva Clear, EOM Intact, PERRL HENT: Yes: Atraumatic, Normocephalic Neck: Yes: Supple, Trachea Midline Cardiovascular: Yes: Pulse Irregular, S1, S2. No: Regular Rate and Rhythm, Bradycardia, Tachycardia, Bruit, JVD, Gallop, Murmur, Rub, S3, S4, Varicosities Respiratory: Yes: Regular, Diminished, Wheezes. 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 Pt seen and examined today in nad. states she is feeling well currently. Denies any abdominal pain currently. states her sob and wheezing are at baseline overall improved but still mild wheeze. denies chest pain, palpitations, no edema. Preop cardiac evaluation -pt going for lap cholecystectomy -BP slightly more elevated at 153/97 early this am but adequate for surgery, received Losartan last night and cardizem this am -pulmonary evaluation appreciated, pt received Steroids preop for her COPD -if any issues with AFib heart rate intra or post op pt can be monitored on tele , if no issues pt can return to med surg and will follow AFib-HR adequately controlled currently, INR subtherapeutic -cont cardizem and digoxin for now for rate control, need to clarify as digoxin was held on last visit -pt on heparin gtt now to bridge through surgery and when safe plan to restart warfarin -caution to maintain therapeutic window with INR and PTT as pt did have issues with a hematoma and anemia on prior admission Bio MVR-stable -outpatient f/up HTN-overall Adequately controlled, intermittent readings above goal -cont current medical regimen Chronic systolic/Diastolic CHF-euvolemic -euvolemic now, not currently on Lasix, need to clarify if she has been on standing po Lasix as outpatient, for now can use Lasix prn -current wheezing c/w her COPD
--- NOTE | 2017-12-25 13:38 | OP ---
Operative Note - Note: Operative Date: 12/25/17 Pre-Operative Diagnosis: Biliary dyskinesia Operation: laparoscopic cholecystectomy Post-Operative Diagnosis: Same as Pre-op Surgeon: Faustino Mason Diabetes Physician: Luis Earl Anesthesia: General Specimens Removed: gallbladder Estimated Blood Loss (mls): 30 Operative Report Dictated: Yes
[2017-12-25] MEDS ORDERED: ACETAMINOPHEN 1000 MG/100 ML VIAL (NON FORMULARY) IVPB PRN ×2 (13:41→15:39)
--- NOTE | 2017-12-25 14:01 | SURG ---
Surgery Supervisor Stage Carpentry Note Supervisor Stage Carpentry: Luis Earl PA-C Date of Service: 12/25/17 Diagnosis: Biliary dyskinesia Procedure: Laparoscopic cholecystectomy I was present for the entirety of the operative procedure. For further detail, please refer to operative report. Visit type - Case Type Case Type: ED Admission - New patient This patient is new to me today: Yes Date on this admission: 12/25/17
[2017-12-25] MEDS ORDERED: ONDANSETRON 4 MG/2 ML VIAL IVPUSH PRN ×2 (14:05→15:39)
--- NOTE | 2017-12-25 14:06 | SPEC ---
DATE OF OPERATION: 12/25/2017 SURGEON: Faustino Mason MD REGIONAL TRANSFER LIAISON: ARELY Garza PREOPERATIVE DIAGNOSIS: Biliary dyskinesia, possible acute cholecystitis. POSTOPERATIVE DIAGNOSIS: Biliary dyskinesia. PROCEDURE: Laparoscopic cholecystectomy. SPECIMEN: Gallbladder. ESTIMATED BLOOD LOSS: 30 mL DRAINS: None. ANESTHESIA: GET. REASON FOR PROCEDURE: This is a 77-year-old female who was seen in the hospital as a consultation for recurrent abdominal pain and fevers. The question of the source of her fevers from her gallbladder was entertained. In addition, she had findings on imaging consistent with biliary dyskinesia. Descriptions of these findings were discussed with both the patient as well as her daughter because of the patient's underlying dementia. The daughter, who is the healthcare proxy, discussed the possibilities of surgery versus nonoperative management with her family. They decided to proceed with a laparoscopic, possible open cholecystectomy. The risks and benefits of the procedure were explained. RISKS AND BENEFITS: The risks and benefits of a laparoscopic, possible open cholecystectomy were explained. These included bleeding, infection, hernia, [place] , DVT, PE, injury to surrounding structures including the liver, colon, bowel, bile ducts, vessel injury, nerve injury, bile leak, and retained stones as some of the possible complications. The patient understood and signed informed consents. DESCRIPTION OF PROCEDURE: The patient was placed supine on the operating room table. The patient underwent general endotracheal intubation. The abdomen was prepped and draped in the usual sterile fashion. A timeout was performed. A periumbilical incision was made, and a 5-mm optical trocar was inserted under direct visualization with the laparoscope. Pneumoperitoneum was then established. Subsequently, a 12-mm trocar was placed in the subxiphoid area and two 5-mm trocars were placed in the right upper quadrant. The patient was placed in reverse Trendelenburg, right side up position. The gallbladder was noted and was retracted cephalad and laterally. Any overlying omental adhesions were carefully dissected. The peritoneum was dissected using electrocautery. The cystic duct followed by the cystic artery were circumferentially dissected, clipped and transected. The gallbladder was removed off the liver bed using electrocautery. Hemostasis of the liver bed and surrounding area was attained using electrocautery. The gallbladder was placed in an EndoCatch bag. Copious irrigation and suction were performed until clear. The gallbladder was removed from the abdominal cavity. All incision sites were irrigated and Marcaine was injected. Hemostasis of all incision sites was noted. All incision sites were closed using 4-0 Biosyn. Sterile dressings were applied. The patient tolerated the procedure well and was transferred to the recovery room in stable condition. Jennifer GUZMÁN/[id number] MTDD
[2017-12-25] MEDS ORDERED: LACTATED RINGERS SOLUTION 1,000 ML IV SCH (14:15)
[2017-12-25] MEDS ORDERED: ACETAMINOPHEN INJECTION 100 ML IVPB ONE (15:18)
[2017-12-25] MEDS ORDERED: ACETAMINOPHEN 325 MG TABLET (FP) PO PRN (15:39)
[2017-12-25 15:48] LABS: ANION GAP 12 (8-16); BLOOD UREA NITROGEN 8 mg/dL (7-18); CALCIUM 7.9 mg/dL (8.5-10.1); CHLORIDE 105 mmol/L (98-107); CO2 19 mmol/L (21-32); CREATININE 0.7 mg/dL (0.55-1.02); GLUCOSE,RANDOM 163 mg/dL (74-106); SODIUM 136 mmol/L (136-145)
[2017-12-25 15:54] LABS: POTASSIUM 5.1 mmol/L (3.5-5.1)
--- NOTE | 2017-12-25 17:04 | PN ---
Progress Note (short form) - Note Progress Note: patient in surgery for Lap Cholecystectomy. Problem List - Problems (1) Abdominal pain Code(s): R10.9 - UNSPECIFIED ABDOMINAL PAIN Qualifiers: Abdominal location: right upper quadrant Qualified Code(s): R10.11 - Right upper quadrant pain (2) Cholelithiasis Code(s): K80.20 - CALCULUS OF GALLBLADDER W/O CHOLECYSTITIS W/O OBSTRUCTION Qualifiers: Cholecystitis acuity: acute and chronic Biliary obstruction: without biliary obstruction (3) Constipation Code(s): K59.00 - CONSTIPATION, UNSPECIFIED
[2017-12-25 17:11] LABS: HEMATOCRIT 35.9 % (32.4-45.2); HEMOGLOBIN 11.9 GM/dL (10.7-15.3); MCH 29.4 pg (25.7-33.7); MCHC 33.2 g/dl (32.0-36.0); MEAN CELL VOLUME 88.8 fl (80-96); MEAN PLT VOLUME 8.4 fl (7.5-11.1); PLATELET COUNT 224 K/MM3 (134-434); RBC 4.04 M/mm3 (3.60-5.2); RDW 19.6 % (11.6-15.6); WHITE BLOOD COUNT 5.9 K/mm3 (4.0-10.0)
[2017-12-25] MEDS ORDERED: ALBUTEROL SO4 2.5/IPRATROPIUM 0.5 INH SOL 3 ML VIAL.NEB. NEB SCH (18:00)
[2017-12-25] MEDS: LOSARTAN POTASSIUM 25 MG TABLET PO SCH (18:53)
[2017-12-25 19:09] LABS: PLATELET ESTIMATE ADEQUATE
[2017-12-25 20:53] LABS: BASO % 0.1 % (0-2.0); HEMATOCRIT 38.1 % (32.4-45.2); HEMOGLOBIN 12.4 GM/dL (10.7-15.3); LYMPH % 12.2 % (8-40); MCH 28.5 pg (25.7-33.7); MCHC 32.6 g/dl (32.0-36.0); MEAN CELL VOLUME 87.3 fl (80-96); MEAN PLT VOLUME 8.6 fl (7.5-11.1); MONO % 1.9 % (3.8-10.2); NEUT % 85.8 % (42.8-82.8); PLATELET COUNT 220 K/MM3 (134-434); RBC 4.37 M/mm3 (3.60-5.2); RDW 19.4 % (11.6-15.6); WHITE BLOOD COUNT 3.8 K/mm3 (4.0-10.0)
[2017-12-25] MEDS: MONTELUKAST NA 10 MG TABLET PO SCH (22:19)
[2017-12-25] MEDS: DONEPEZIL HCL 10 MG TABLET (FP) PO SCH (22:19)
[2017-12-25] MEDS ORDERED: HEPARIN NA (PORCINE) 5,000 UNITS/ML 1ML VIAL IVPUSH PRN ×2 (23:36)
[2017-12-26] MEDS: HEPARIN INFUSION - 25,000 UNITS/500 ML INFUS.BAG IVPB SCH (01:16)
[2017-12-26] MEDS: ALBUTEROL SO4 2.5/IPRATROPIUM 0.5 INH SOL 3 ML VIAL.NEB. NEB SCH ×7 (04:00→23:37)
[2017-12-26] MEDS: METHIMAZOLE 5 MG TABLET (FP) PO SCH (06:41)
[2017-12-26 08:21] LABS: INR 1.37 (0.82-1.09); PROTHROMBIN TIME (PATIENT) 15.5 SEC (9.98-11.88)
[2017-12-26 08:34] LABS: BASO % 0.7 % (0-2.0); CHLORIDE 106 mmol/L (98-107); HEMATOCRIT 35.5 % (32.4-45.2); HEMOGLOBIN 11.5 GM/dL (10.7-15.3); MCH 28.5 pg (25.7-33.7); MCHC 32.4 g/dl (32.0-36.0); MONO % 9.6 % (3.8-10.2); NEUT % 62.7 % (42.8-82.8); PLATELET COUNT 191 K/MM3 (134-434); POTASSIUM 5.2 mmol/L (3.5-5.1); RBC 4.03 M/mm3 (3.60-5.2); RDW 19.6 % (11.6-15.6); SODIUM 136 mmol/L (136-145); WHITE BLOOD COUNT 3.2 K/mm3 (4.0-10.0)
[2017-12-26 08:44] LABS: ALBUMIN 2.4 g/dl (3.4-5.0); ALK PHOS 62 U/L (45-117); ANION GAP 9 (8-16); BILIRUBIN,TOTAL 0.5 mg/dL (0.2-1.0); BLOOD UREA NITROGEN 21 mg/dL (7-18); CALCIUM 7.9 mg/dL (8.5-10.1); CO2 21 mmol/L (21-32); CREATININE 0.8 mg/dL (0.55-1.02); GLUCOSE,RANDOM 157 mg/dL (74-106); SGOT/AST 91 U/L (15-37); SGPT/ALT 14 U/L (12-78); TOT PROT 5.6 g/dl (6.4-8.2)
--- NOTE | 2017-12-26 09:17 | PN ---
Physical Exam: SUBJECTIVE: Patient seen and examined. She is comfortable sitting in chair, eating breakfast. She denies CP, SOB, abdominal pain, nausea, vomiting. OBJECTIVE: Vital Signs Period Temp Pulse Resp BP Sys/Urrutia Pulse Ox Last 24 Hr 97 F-98.7 F 60-100 14-20 108-142/64-77 95-100 GENERAL: The patient is awake, alert, and fully oriented, in no acute distress. LUNGS: Breath sounds equal, clear to auscultation bilaterally, no wheezes, no crackles, no accessory muscle use. HEART: Irregular without murmur, rub or gallop. ABDOMEN: Soft, nontender, nondistended, normoactive bowel sounds, no guarding, no rebound, no hepatosplenomegaly, no masses. EXTREMITIES: 2+ pulses, warm, well-perfused, no edema. Laboratory Results - last 24 hr 12/25/17 12/25/17 12/25/17 12:30 15:10 15:10 WBC Cancelled Corrected WBC (auto) Cancelled RBC Cancelled Hgb Cancelled Hct Cancelled MCV Cancelled MCH Cancelled MCHC Cancelled RDW Cancelled Plt Count Cancelled MPV Cancelled Neutrophils % Cancelled Neutrophils % (Manual) Band Neutrophils % Lymphocytes % Cancelled Lymphocytes % (Manual) Monocytes % Cancelled Monocytes % (Manual) Eosinophils % Cancelled Eosinophils % (Manual) Basophils % Cancelled Basophils % (Manual) Nucleated RBC % Cancelled Platelet Estimate Cancelled Platelet Comment Cancelled PT with INR INR PTT (Actin FS) Sodium 136 Potassium 5.1 Chloride 105 Carbon Dioxide 19 L Anion Gap 12 BUN 8 Creatinine 0.7 Creat Clearance w eGFR Random Glucose 163 H Calcium 7.9 L Total Bilirubin AST ALT Alkaline Phosphatase Total Protein Albumin Blood Type A POSITIVE Antibody Screen Negative 12/25/17 12/25/17 12/26/17 16:30 19:50 06:30 WBC 5.9 3.8 L D 3.2 L Corrected WBC (auto) RBC 4.04 4.37 4.03 Hgb 11.9 12.4 11.5 Hct 35.9 38.1 35.5 MCV 88.8 87.3 88.0 MCH 29.4 28.5 28.5 MCHC 33.2 32.6 32.4 RDW 19.6 H 19.4 H 19.6 H Plt Count 224 220 191 MPV 8.4 8.6 9.0 Neutrophils % No Result Required. 85.8 H D 62.7 D Neutrophils % (Manual) 80.0 Band Neutrophils % 12.0 Lymphocytes % No Result Required. 12.2 D 27.0 D Lymphocytes % (Manual) 7.0 L D Monocytes % 1.9 L D 9.6 D Monocytes % (Manual) 1 L Eosinophils % 0.0 D 0.0 Eosinophils % (Manual) 0.0 Basophils % 0.1 0.7 D Basophils % (Manual) 0.0 Nucleated RBC % Platelet Estimate Adequate Platelet Comment PT with INR INR PTT (Actin FS) Sodium Potassium Chloride Carbon Dioxide Anion Gap BUN Creatinine Creat Clearance w eGFR Random Glucose Calcium Total Bilirubin AST ALT Alkaline Phosphatase Total Protein Albumin Blood Type Antibody Screen 12/26/17 12/26/17 12/26/17 06:30 06:30 06:30 WBC Corrected WBC (auto) RBC Hgb Hct MCV MCH MCHC RDW Plt Count MPV Neutrophils % Neutrophils % (Manual) Band Neutrophils % Lymphocytes % Lymphocytes % (Manual) Monocytes % Monocytes % (Manual) Eosinophils % Eosinophils % (Manual) Basophils % Basophils % (Manual) Nucleated RBC % Platelet Estimate Platelet Comment PT with INR 15.50 H INR 1.37 H PTT (Actin FS) 65.9 H D Sodium 136 Potassium 5.2 H Chloride 106 Carbon Dioxide 21 Anion Gap 9 BUN 21 H Creatinine 0.8 Creat Clearance w eGFR > 60 Random Glucose 157 H Calcium 7.9 L Total Bilirubin 0.5 AST 91 H ALT 14 Alkaline Phosphatase 62 Total Protein 5.6 L Albumin 2.4 L Blood Type Antibody Screen Active Medications Generic Name Dose Route Start Last Admin Trade Name Damirq PRN Reason Stop Dose Admin Acetaminophen 650 mg 12/25/17 15:39 Tylenol - PO Q4H PRN FEVER Acetaminophen 1,000 mg 12/25/17 15:39 12/25/17 15:20 Ofirmev Injection - IVPB 1,000 mg Q6H PRN Administration PAIN Albuterol/Ipratropium 1 amp 12/26/17 00:00 12/26/17 07:32 Duoneb - NEB 1 amp Q4H [facility] Administration Digoxin 0.125 mg 12/26/17 10:00 Lanoxin - PO DAILY [facility] Diltiazem HCl 360 mg 12/26/17 10:00 Cardizem Cd - PO DAILY [facility] Donepezil HCl 10 mg 12/25/17 22:00 12/25/17 22:19 Aricept - PO Not Given HS [facility] Heparin Sodium (Porcine) 1,000 unit 12/25/17 23:36 Heparin - IVPUSH PRN PRN Heparin Heparin Sodium (Porcine) 5,000 unit 12/25/17 23:36 Heparin - IVPUSH PRN PRN Heparin Ertapenem 1 gm/ Sodium 100 mls @ 200 mls/hr 12/26/17 10:00 Chloride IVPB DAILY [facility] Heparin Sodium/Dextrose 25,000 units in 500 mls @ 20 mls/hr 12/25/17 23:45 01:16 Heparin Infusion - IVPB 1,000 units/hr TITR BLESSING 20 mls/hr Protocol Administration 1,000 UNITS/HR Losartan Potassium 25 mg 12/25/17 18:00 12/25/17 18:53 Cozaar - PO 25 mg DAILY@1800 [facility] Administration Megestrol Acetate 40 mg 12/26/17 10:00 Megace - PO DAILY [facility] Methimazole 10 mg 12/26/17 07:00 12/26/17 06:41 Tapazole - PO 10 mg AM [facility] Administration Montelukast Sodium 10 mg 12/25/17 22:00 12/25/17 22:19 Singulair - PO Not Given HS [facility] Multivitamins 1 each 12/26/17 10:00 Total B With C - PO DAILY [facility] Ondansetron HCl 4 mg 12/25/17 15:39 Zofran Injection IVPUSH Q6H PRN NAUSEA AND/OR VOMITING Polyethylene Glycol 17 gm 12/26/17 10:00 Miralax (For Daily Use) - PO DAILY [facility] ASSESSMENT/PLAN: 1. Abdominal pain secondary to biliary dyskinesia - s/p laparoscopic cholecystectomy 12/25 - Discontinue Invanz if ok with surgery - Tolerating diet 2. COPD - Stable - Continue Singulair, DuoNeb 3. Atrial fibrillation with rapid ventricular response - Rate controlled - Continue Cardizem CD, Digoxin - On heparin IV drip - Resume Coumadin today 4. History of left IJ thrombosis 5. History of bioprosthetic mitral valve 6. Dementia with delirium - Delirium resolved - Aricept was increased 7. Chronic systolic and diastolic heart failure - Stable 8. HTN - Continue Cardizem CD, Cozaar 9. Hyperthyroidism - Continue Tapazole Visit type - Emergency Visit Emergency Visit: Yes ED Registration Date: 12/17/17 Care time: The patient presented to the Emergency Department on the above date and was hospitalized for further evaluation of their emergent condition. - New Patient This patient is new to me today: Yes Date on this admission: 12/26/17 - Critical Care Critical Care patient: No - Discharge Referral Referred to [facility] No
--- NOTE | 2017-12-26 09:34 | PN ---
Progress Note (short form) - Note Progress Note: Neurology History of Present Illness: 77 y/o F with PMH dementia, afib (on coumadin; s/p valve replacement), CHF, HTN , fatty liver disease, hypothyroidism, recently at [facility] (d/c yesterday for biliary colic), who was BIBEMS d/t weakness and lethargy. As per records, daughter stated pt was extremely weak and was "not being herself." Additionally , pt had decreased PO intake and decreased appetite during this time. Pt also endorses RUQ, inferior sternal pain over the past day. Stated that pain is similar to her biliary colic. Denies fever, chills, SOB, or changes in urinary or bowel function. Pt is a poor historian, and I was contacted for Dementia. CT head completed 12/15/17 reviewed and did not show acute changes, consistent with prior. She is able to tell me she's at [facility] but not able to tell me the date. Would not attempt to tell me month or year, poor effort. Can tell me name of President, Mary Ann, without difficulty. Aricept was increased to 10mg and can be continued. Has been stable during my evaluations. No side effects from Aricept adjustments. Ambulating with walker this AM. Keshia Samaniego completed, surgery note reviewed. Patient denies any discomfort or complication. Neurologically stable at this time. Active Medications Acetaminophen (Tylenol -) 650 mg PO Q4H PRN PRN Reason: FEVER Acetaminophen (Ofirmev Injection -) 1,000 mg IVPB Q6H PRN PRN Reason: PAIN Last Admin: 12/25/17 15:20 Dose: 1,000 mg Albuterol/Ipratropium (Duoneb -) 1 amp NEB Q4H BLESSING Last Admin: 12/26/17 07:32 Dose: 1 amp Digoxin (Lanoxin -) 0.125 mg PO DAILY [facility] Diltiazem HCl (Cardizem Cd -) 360 mg PO DAILY [facility] Donepezil HCl (Aricept -) 10 mg PO HS BLESSING Last Admin: 12/25/17 22:19 Dose: Not Given Heparin Sodium (Porcine) (Heparin -) 1,000 unit IVPUSH PRN PRN PRN Reason: Heparin Heparin Sodium (Porcine) (Heparin -) 5,000 unit IVPUSH PRN PRN PRN Reason: Heparin Ertapenem 1 gm/ Sodium (Chloride) 100 mls @ 200 mls/hr IVPB DAILY [facility] Heparin Sodium/Dextrose (Heparin Infusion -) 25,000 units in 500 mls @ 20 mls/ hr IVPB TITR BLESSING; 1,000 UNITS/HR PRN Reason: Protocol Last Admin: 12/26/17 01:16 Dose: 1,000 units/hr, 20 mls/hr Losartan Potassium (Cozaar -) 25 mg PO DAILY@1800 [facility]ESSING Last Admin: 12/25/17 18:53 Dose: 25 mg Megestrol Acetate (Megace -) 40 mg PO DAILY [facility] Methimazole (Tapazole -) 10 mg PO AM [facility] Last Admin: 12/26/17 06:41 Dose: 10 mg Montelukast Sodium (Singulair -) 10 mg PO HS [facility] Last Admin: 12/25/17 22:19 Dose: Not Given Multivitamins (Total B With C -) 1 each PO DAILY [facility] Ondansetron HCl (Zofran Injection) 4 mg IVPUSH Q6H PRN PRN Reason: NAUSEA AND/OR VOMITING Polyethylene Glycol (Miralax (For Daily Use) -) 17 gm PO DAILY [facility] Physical Examination Vital Signs Period Temp Pulse Resp BP Sys/Urrutia Pulse Ox Last 24 Hr 97 F-98.7 F 60-100 14-20 108-142/64-77 95-100 Constitutional: Yes: Well Nourished, No Distress, Calm Cardiovascular: Yes: Regular Rate and Rhythm Respiratory: Yes: Regular Gastrointestinal: Yes: Normal Bowel Sounds, Soft Musculoskeletal: Yes: WNL Extremities: Yes: WNL Neurological: Awake, alert, does not know date, can tell me location and president, no CN deficits, strength intact, sensory intact, gait deferred Psychiatric: Yes: Alert Labs: CBCD WBC 3.2 K/mm3 (4.0-10.0) L 12/26/17 06:30 RBC 4.03 M/mm3 (3.60-5.2) 12/26/17 06:30 Hgb 11.5 GM/dL (10.7-15.3) 12/26/17 06:30 Hct 35.5 % (32.4-45.2) 12/26/17 06:30 MCV 88.0 fl (80-96) 12/26/17 06:30 MCHC 32.4 g/dl (32.0-36.0) 12/26/17 06:30 RDW 19.6 % (11.6-15.6) H 12/26/17 06:30 Plt Count 191 K/MM3 (134-434) 12/26/17 06:30 MPV 9.0 fl (7.5-11.1) 12/26/17 06:30 CMP Sodium 136 mmol/L (136-145) 12/26/17 06:30 Potassium 5.2 mmol/L (3.5-5.1) H 12/26/17 06:30 Chloride 106 mmol/L (98-107) 12/26/17 06:30 Carbon Dioxide 21 mmol/L (21-32) 12/26/17 06:30 Anion Gap 9 (8-16) 12/26/17 06:30 BUN 21 mg/dL (7-18) H 12/26/17 06:30 Creatinine 0.8 mg/dL (0.55-1.02) 12/26/17 06:30 Creat Clearance w eGFR > 60 (>60) 12/26/17 06:30 Calcium 7.9 mg/dL (8.5-10.1) L 12/26/17 06:30 Total Bilirubin 0.5 mg/dL (0.2-1.0) 12/26/17 06:30 AST 91 U/L (15-37) H 12/26/17 06:30 ALT 14 U/L (12-78) 12/26/17 06:30 Alkaline Phosphatase 62 U/L (45-117) 12/26/17 06:30 Total Protein 5.6 g/dl (6.4-8.2) L 12/26/17 06:30 Albumin 2.4 g/dl (3.4-5.0) L 12/26/17 06:30 CT head reviewed Plan 77 y/o F with PMH dementia, afib (on coumadin; s/p valve replacement), CHF, HTN , fatty liver disease, hypothyroidism, recently at [facility] (d/c yesterday for biliary colic), who was BIBEMS d/t weakness and lethargy. As per records, daughter stated pt was extremely weak and was "not being herself." Additionally , pt had decreased PO intake and decreased appetite during this time. Pt also endorses RUQ, inferior sternal pain over the past day. Stated that pain is similar to her biliary colic. I was contacted for Dementia. CT head completed 12/15/17 reviewed and did not show acute changes, consistent with prior. Monitor Afib, on coumadin Likely delirium on superimposed dementia Aricept Increased to 10mg mental status stable No issues with increased Aricept 10mg, could possible increased to 20mg in future or add Namenda, but would hold off for now No further rec'd at this time
--- NOTE | 2017-12-26 09:45 | PN ---
Progress Note (short form) - Note Progress Note: POD #1 - s/p laparoscopic cholecystectomy under general anesthesia. VSS. Pt. doing well, sitting up comfortably in chair. No complaints. No apparent anesthetic complications noted. Continue current care.
--- NOTE | 2017-12-26 09:56 | PN ---
Progress Note, Physician Chief Complaint: Tolerated surgery well History of Present Illness: Denies chest pain, SOB, palps. Receiving IV heparin gtts for chronic AF, h/o DVT - Current Medication List Current Medications: Active Medications Acetaminophen (Tylenol -) 650 mg PO Q4H PRN PRN Reason: FEVER Acetaminophen (Ofirmev Injection -) 1,000 mg IVPB Q6H PRN PRN Reason: PAIN Last Admin: 12/25/17 15:20 Dose: 1,000 mg Albuterol/Ipratropium (Duoneb -) 1 amp NEB Q4H BLESSING Last Admin: 12/26/17 07:32 Dose: 1 amp Digoxin (Lanoxin -) 0.125 mg PO DAILY [facility] Diltiazem HCl (Cardizem Cd -) 360 mg PO DAILY [facility] Donepezil HCl (Aricept -) 10 mg PO HS [facility] Last Admin: 12/25/17 22:19 Dose: Not Given Heparin Sodium (Porcine) (Heparin -) 1,000 unit IVPUSH PRN PRN PRN Reason: Heparin Heparin Sodium (Porcine) (Heparin -) 5,000 unit IVPUSH PRN PRN PRN Reason: Heparin Ertapenem 1 gm/ Sodium (Chloride) 100 mls @ 200 mls/hr IVPB DAILY [facility] Heparin Sodium/Dextrose (Heparin Infusion -) 25,000 units in 500 mls @ 20 mls/ hr IVPB TITR BLESSING; 1,000 UNITS/HR PRN Reason: Protocol Last Admin: 12/26/17 01:16 Dose: 1,000 units/hr, 20 mls/hr Losartan Potassium (Cozaar -) 25 mg PO DAILY@1800 [facility] Last Admin: 12/25/17 18:53 Dose: 25 mg Megestrol Acetate (Megace -) 40 mg PO DAILY [facility] Methimazole (Tapazole -) 10 mg PO AM [facility] Last Admin: 12/26/17 06:41 Dose: 10 mg Montelukast Sodium (Singulair -) 10 mg PO HS [facility] Last Admin: 12/25/17 22:19 Dose: Not Given Multivitamins (Total B With C -) 1 each PO DAILY [facility] Ondansetron HCl (Zofran Injection) 4 mg IVPUSH Q6H PRN PRN Reason: NAUSEA AND/OR VOMITING Polyethylene Glycol (Miralax (For Daily Use) -) 17 gm PO DAILY [facility] Warfarin Sodium (Coumadin -) 7.5 mg PO DAILY@1800 [facility] - Objective Vital Signs: Vital Signs Temperature 97 F L 12/26/17 05:57 Pulse Rate 72 12/26/17 05:57 Respiratory Rate 19 12/26/17 05:57 Blood Pressure 119/75 12/26/17 05:57 O2 Sat by Pulse Oximetry (%) 100 12/25/17 21:00 Constitutional: Yes: No Distress Eyes: Yes: Conjunctiva Clear Cardiovascular: Yes: Pulse Irregular Respiratory: Yes: Other (rales at bases 1/3 up) Gastrointestinal: Yes: Soft, Abdomen, Obese, Other (lap nasrin incisions) Edema: No Neurological: Yes: Alert, Oriented Labs: CBC, BMP 12/26/17 06:30 12/26/17 06:30 INR, PTT INR 1.37 (0.82-1.09) H 12/26/17 06:30 Laboratory Tests 12/26/17 12/26/17 12/26/17 06:30 06:30 06:30 WBC 3.2 L Hgb 11.5 Hct 35.5 Plt Count 191 INR 1.37 H PTT (Actin FS) Potassium 5.2 H Creatinine 0.8 ALT 14 Alkaline Phosphatase 62 Hep-Induced Plt Ab Rapid 12/26/17 12/26/17 06:30 06:30 WBC Hgb Hct Plt Count INR PTT (Actin FS) 65.9 H D Potassium Creatinine ALT Alkaline Phosphatase Hep-Induced Plt Ab Rapid Pending - ....Imaging Chest X-ray: Pending Assessment/Plan 77 year old woman with 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 -CXR ordered. -May need Lasix AFib-HR adequately controlled currently, INR subtherapeutic -cont cardizem and digoxin for rate control -pt on heparin gtt now to bridge through surgery and when safe plan to restart warfarin -caution to maintain therapeutic window with INR and PTT as pt did have issues with a hematoma and anemia on prior admission -Platelets have dropped a bit, HIT Ab was sent, pending. Bio MVR-stable -outpatient f/up HTN-overall Adequately controlled, intermittent readings above goal -cont current medical regimen
[2017-12-26] MEDS ORDERED: ERTAPENEM SODIUM 1 GM in SODIUM CHLORIDE 100 ML IVPB SCH (10:00)
--- NOTE | 2017-12-26 10:17 | PN ---
Progress Note (short form) - Note Progress Note: s/p lap choly yesterday no fevers cough improved Vital Signs Period Temp Pulse Resp BP Sys/Urrutia Pulse Ox Last 24 Hr 97 F-98.7 F 60-100 14-20 108-142/64-77 95-100 cor-rrr lungs clear abd soft,nt ext no edema CBC, BMP 12/26/17 06:30 12/26/17 06:30 Microbiology 12/22/17 23:08 Blood - Peripheral Venous Blood Culture - Preliminary NO GROWTH OBTAINED AFTER 72 HOURS, INCUBATION TO CONTINUE FOR 2 DAYS. 12/22/17 23:08 Blood - Peripheral Venous Blood Culture - Preliminary NO GROWTH OBTAINED AFTER 72 HOURS, INCUBATION TO CONTINUE FOR 2 DAYS. 12/24/17 09:15 Nasopharyngeal Swab Influenza Types A,B Antigen (GILBERT) - Final 12/24/17 09:15 Nasopharyngeal Swab - Final 12/23/17 11:30 Urine - Urine Clean Catch Urine Culture - Final NO GROWTH OBTAINED 12/17/17 22:00 Blood - Peripheral Venous Blood Culture - Final NO GROWTH AFTER 5 DAYS INCUBATION 12/17/17 21:15 Blood - Peripheral Venous Blood Culture - Final NO GROWTH AFTER 5 DAYS INCUBATION 12/17/17 18:52 Urine - Urine - Catheterized Urine Culture - Final NO GROWTH OBTAINED a/p s/p lap choly yesterday- doing well afebrile- if okay with surgery would suggest d/c antbiotics bioprosthetic MVR noted, cultures sent d/w surgical PA will d/c ertapenem today
[2017-12-26] MEDS ORDERED: PT OWN MED DRAWER 7, Y5N ONE ×3 (10:26→18:24)
[2017-12-26] MEDS: DIGOXIN 0.125 MG TABLET (FP) PO SCH (10:30)
[2017-12-26] MEDS: ERTAPENEM SODIUM 1 GM in SODIUM CHLORIDE 50 ML IVPB SCH (10:31)
[2017-12-26] MEDS: VITAMIN B COMPLEX W/C COMBO TABLET (FP) PO SCH (10:31)
[2017-12-26] MEDS: MEGESTROL ACETATE 40 MG TABLET PO SCH (10:31)
[2017-12-26] MEDS: POLYETHYLENE GLYCOL 3350 119 GM BTL PO SCH (10:34)
--- NOTE | 2017-12-26 10:50 | PN ---
Progress Note (short form) - Note Progress Note: POD#1 OOB to chair, tolerated breakfast, as per nursing staff. Pt denies nausea/ emesis. Vital Signs Period Temp Pulse Resp BP Sys/Urrutia Pulse Ox Last 24 Hr 97 F-98.7 F 60-94 14-20 108-142/64-77 95-100 GEN: Alert and in NAD ABD: soft, non-distended, RUQ tenderness. Inc c/d/i CBC, BMP 03/16/18 06:30 03/16/18 06:30 A/p: 77 yo female s/p lap nasrin, POD#1 Cont diet as tolerated and oral pain medications IV heparin and transition to oral coumadin as per the medical team, H&H stable Continue oob to chair/ambulated with PT D/w Dr. Mason Problem List - Problems (1) Cholelithiasis Code(s): K80.20 - CALCULUS OF GALLBLADDER W/O CHOLECYSTITIS W/O OBSTRUCTION
--- NOTE | 2017-12-26 11:48 | PN ---
Progress Note (short form) - Note Progress Note: Pt seen and examined. s/p Lap Nasrin. c/o pain in the abdomen. O/E: Constitutional: Yes: Well Nourished, No Distress, Calm Cardiovascular: Yes: Pulse Irregular Respiratory: Yes: Regular, clear Gastrointestinal: Yes: Normal Bowel Sounds, Soft Musculoskeletal: Yes: Muscle Weakness Extremities: Yes: WNL Edema: No Peripheral Pulses WNL: Yes Neurological: Yes: Alert, Pre-Existing Deficit Psychiatric: Yes: Alert Last Vital Signs Temp Pulse Resp BP Pulse Ox 97 F L 78 19 119/75 100 12/26/17 05:57 12/26/17 10:30 12/26/17 05:57 12/26/17 05:57 12/25/17 21:00 CBC, BMP 12/26/17 06:30 12/26/17 06:30 Current Medications Generic Name Dose Route Start Last Admin Trade Name Freq PRN Reason Stop Dose Admin Acetaminophen 650 mg 12/25/17 15:39 Tylenol - PO Q4H PRN FEVER Acetaminophen 1,000 mg 12/25/17 15:39 12/25/17 15:20 Ofirmev Injection - IVPB 1,000 mg Q6H PRN Administration PAIN Albuterol/Ipratropium 1 amp 12/26/17 00:00 12/26/17 11:07 Duoneb - NEB 1 amp Q4H BLESSING Administration Digoxin 0.125 mg 12/26/17 10:00 12/26/17 10:30 Lanoxin - PO 0.125 mg DAILY [facility] Administration Diltiazem HCl 360 mg 12/26/17 10:00 12/26/17 10:30 Cardizem Cd - PO 360 mg DAILY [facility] Administration Donepezil HCl 10 mg 12/25/17 22:00 12/25/17 22:19 Aricept - PO Not Given HS [facility] Heparin Sodium (Porcine) 1,000 unit 12/25/17 23:36 Heparin - IVPUSH PRN PRN Heparin Heparin Sodium (Porcine) 5,000 unit 12/25/17 23:36 Heparin - IVPUSH PRN PRN Heparin Heparin Sodium/Dextrose 25,000 units in 500 mls @ 20 mls/hr 12/25/17 23:45 10:20 Heparin Infusion - IVPB 1,000 units/hr TITR [facility] 20 mls/hr Protocol Titration 1,000 UNITS/HR Losartan Potassium 25 mg 12/25/17 18:00 12/25/17 18:53 Cozaar - PO 25 mg DAILY@1800 [facility] Administration Megestrol Acetate 40 mg 12/26/17 10:00 12/26/17 10:31 Megace - PO 40 mg DAILY [facility] Administration Methimazole 10 mg 12/26/17 07:00 12/26/17 06:41 Tapazole - PO 10 mg AM [facility] Administration Montelukast Sodium 10 mg 12/25/17 22:00 12/25/17 22:19 Singulair - PO Not Given HS [facility] Multivitamins 1 each 12/26/17 10:00 12/26/17 10:31 Total B With C - PO 1 each DAILY [facility] Administration Ondansetron HCl 4 mg 12/25/17 15:39 Zofran Injection IVPUSH Q6H PRN NAUSEA AND/OR VOMITING Polyethylene Glycol 17 gm 12/26/17 10:00 12/26/17 10:34 Miralax (For Daily Use) - PO 17 gm DAILY [facility] Administration Warfarin Sodium 7.5 mg 12/26/17 18:00 Coumadin - PO DAILY@1800 [facility] Afib/bio-MVR/DVT: was on coumadin s/p Lap nasrin, (due to INR being sub-therapeutic and was going for surgery, heparin was started on 12/24) Surgeons note reviewed CBC/PTT stable On IV heparin with PTT monitoring, re-start Coumadin , for INR tomorrow Platelets Noted: slight down trend, very less likely HIT ( but ordered, 07/2017 HIT ab + ,low OD, JUSTIN negative ) , no contra-indication for continuing IV heparin now. rest per primary team will follow
--- NOTE | 2017-12-26 11:52 | PN ---
Progress Note (short form) - Note Progress Note: PULMONARY POD#1 VSS/AFEBRILE OOB TO CHAIR OFFERS NO COMPLAINTS APPEARS STABLE TOLERATING ENSURE ANICTERIC CLEAR S1S2 BS+ SOFT TEDS B/L LABS/MEDS/NOTES/IMAGES REVIEWED - Problems (1) Abdominal pain Code(s): R10.9 - UNSPECIFIED ABDOMINAL PAIN Qualifiers: Abdominal location: right upper quadrant Qualified Code(s): R10.11 - Right upper quadrant pain (2) Chronic cholecystitis Code(s): K81.1 - CHRONIC CHOLECYSTITIS (3) Altered mental status Code(s): R41.82 - ALTERED MENTAL STATUS, UNSPECIFIED (4) Asthma Code(s): J45.909 - UNSPECIFIED ASTHMA, UNCOMPLICATED Qualifiers: Asthma severity: mild persistent (5) Atrial fibrillation Code(s): I48.91 - UNSPECIFIED ATRIAL FIBRILLATION Qualifiers: Atrial fibrillation type: permanent Qualified Code(s): I48.2 - Chronic atrial fibrillation (6) CHF (congestive heart failure) Code(s): I50.9 - HEART FAILURE, UNSPECIFIED (7) COPD (chronic obstructive pulmonary disease) Code(s): J44.9 - CHRONIC OBSTRUCTIVE PULMONARY DISEASE, UNSPECIFIED (8) Cholelithiasis Code(s): K80.20 - CALCULUS OF GALLBLADDER W/O CHOLECYSTITIS W/O OBSTRUCTION Qualifiers: Cholelithiasis location: gallbladder Cholecystitis presence: without cholecystitis Biliary obstruction: without biliary obstruction Qualified Code(s): K80.20 - Calculus of gallbladder without cholecystitis without obstruction (9) Confusion Code(s): R41.0 - DISORIENTATION, UNSPECIFIED (10) Diabetes Code(s): E11.9 - TYPE 2 DIABETES MELLITUS WITHOUT COMPLICATIONS (11) H/O heart valve replacement with bioprosthetic valve Code(s): Z95.3 - PRESENCE OF XENOGENIC HEART VALVE (12) Hyperthyroidism Code(s): E05.90 - THYROTOXICOSIS, UNSP WITHOUT THYROTOXIC CRISIS OR STORM (13) Left atrial dilatation Code(s): I51.7 - CARDIOMEGALY (14) Mitral regurgitation Code(s): I34.0 - NONRHEUMATIC MITRAL (VALVE) INSUFFICIENCY Qualifiers: Cardiac valve disease etiology: nonrheumatic Qualified Code(s): I34.0 - Nonrheumatic mitral (valve) insufficiency (15) VHD (valvular heart disease) CONTINUE CURRENT TREATMENT PLAN PER PRIMARY TEAM STABLE PULMONARY STATUS Zeferino WALLER MD
[2017-12-26 14:35] LABS: BASO % 0.4 % (0-2.0); HEMATOCRIT 35.2 % (32.4-45.2); HEMOGLOBIN 11.5 GM/dL (10.7-15.3); LYMPH % 12.1 % (8-40); MCH 28.7 pg (25.7-33.7); MCHC 32.8 g/dl (32.0-36.0); MEAN CELL VOLUME 87.5 fl (80-96); MEAN PLT VOLUME 8.5 fl (7.5-11.1); MONO % 13.8 % (3.8-10.2); NEUT % 73.7 % (42.8-82.8); PLATELET COUNT 213 K/MM3 (134-434); RBC 4.02 M/mm3 (3.60-5.2); RDW 19.8 % (11.6-15.6); WHITE BLOOD COUNT 4.8 K/mm3 (4.0-10.0)
[2017-12-26] MEDS ORDERED: WARFARIN NA 7.5 MG TABLET (FP) PO SCH (18:00)
[2017-12-26] MEDS ORDERED: WARFARIN NA 2.5 MG TABLET (FP) ONE (18:31)
[2017-12-26] MEDS ORDERED: WARFARIN NA 5 MG TABLET (UD) ONE (18:31)
[2017-12-26] MEDS: WARFARIN NA 5 MG, WARFARIN NA 2.5 MG PO SCH (18:32)
[2017-12-26] MEDS: LOSARTAN POTASSIUM 25 MG TABLET PO SCH (18:33)
[2017-12-26] MEDS: MONTELUKAST NA 10 MG TABLET PO SCH (22:07)
[2017-12-26] MEDS: DONEPEZIL HCL 10 MG TABLET (FP) PO SCH (22:07)
[2017-12-27] MEDS: HEPARIN INFUSION - 25,000 UNITS/500 ML INFUS.BAG IVPB SCH (03:15)
[2017-12-27] MEDS: ALBUTEROL SO4 2.5/IPRATROPIUM 0.5 INH SOL 3 ML VIAL.NEB. NEB SCH ×5 (04:02→20:50)
[2017-12-27] MEDS: METHIMAZOLE 5 MG TABLET (FP) PO SCH (06:20)
--- NOTE | 2017-12-27 09:45 | PN ---
Physical Exam: SUBJECTIVE: Patient seen and examined. She has no complaints. She reports mild abdominal discomfort. OBJECTIVE: Vital Signs Period Temp Pulse Resp BP Sys/Urrutia Pulse Ox Last 24 Hr 97.3 F-98.1 F 76-97 20-20 91-127/50-77 100 GENERAL: The patient is awake, alert, and fully oriented, in no acute distress. LUNGS: Breath sounds equal, clear to auscultation bilaterally, no wheezes, no crackles, no accessory muscle use. HEART: Irregularly irregular. ABDOMEN: Soft, nontender, nondistended, normoactive bowel sounds, no guarding, no rebound, no hepatosplenomegaly, no masses. EXTREMITIES: 2+ pulses, warm, well-perfused, no edema. Laboratory Results - last 24 hr 12/26/17 12/26/17 12/26/17 12:36 14:15 17:15 WBC 4.8 D RBC 4.02 Hgb 11.5 Hct 35.2 MCV 87.5 MCH 28.7 MCHC 32.8 RDW 19.8 H Plt Count 213 MPV 8.5 Neutrophils % 73.7 Lymphocytes % 12.1 D Monocytes % 13.8 H Eosinophils % 0.0 Basophils % 0.4 POC Glucometer 233 204 Active Medications Generic Name Dose Route Start Last Admin Trade Name Freq PRN Reason Stop Dose Admin Acetaminophen 650 mg 12/25/17 15:39 Tylenol - PO Q4H PRN FEVER Acetaminophen 1,000 mg 12/25/17 15:39 12/25/17 15:20 Ofirmev Injection - IVPB 1,000 mg Q6H PRN Administration PAIN Albuterol/Ipratropium 1 amp 12/26/17 00:00 12/27/17 04:02 Duoneb - NEB Not Given Q4H BLESSING Digoxin 0.125 mg 12/26/17 10:00 12/26/17 10:30 Lanoxin - PO 0.125 mg DAILY [facility] Administration Diltiazem HCl 360 mg 12/26/17 10:00 12/26/17 10:30 Cardizem Cd - PO 360 mg DAILY [facility] Administration Donepezil HCl 10 mg 12/25/17 22:00 12/26/17 22:07 Aricept - PO 10 mg HS [facility] Administration Heparin Sodium (Porcine) 1,000 unit 12/25/17 23:36 Heparin - IVPUSH PRN PRN Heparin Heparin Sodium (Porcine) 5,000 unit 12/25/17 23:36 Heparin - IVPUSH PRN PRN Heparin Heparin Sodium/Dextrose 25,000 units in 500 mls @ 20 mls/hr 12/25/17 23:45 03:15 Heparin Infusion - IVPB 1,000 units/hr TITR [facility] 20 mls/hr Protocol Administration 1,000 UNITS/HR Losartan Potassium 25 mg 12/25/17 18:00 12/26/17 18:33 Cozaar - PO 25 mg DAILY@1800 [facility] Administration Megestrol Acetate 40 mg 12/26/17 10:00 12/26/17 10:31 Megace - PO 40 mg DAILY [facility] Administration Methimazole 10 mg 12/26/17 07:00 12/27/17 06:20 Tapazole - PO 10 mg AM [facility] Administration Montelukast Sodium 10 mg 12/25/17 22:00 12/26/17 22:07 Singulair - PO 10 mg HS [facility] Administration Multivitamins 1 each 12/26/17 10:00 12/26/17 10:31 Total B With C - PO 1 each DAILY [facility] Administration Ondansetron HCl 4 mg 12/25/17 15:39 Zofran Injection IVPUSH Q6H PRN NAUSEA AND/OR VOMITING Polyethylene Glycol 17 gm 12/26/17 10:00 12/26/17 10:34 Miralax (For Daily Use) - PO 17 gm DAILY [facility] Administration Warfarin Sodium 5 mg/ Warfarin 7.5 mg 12/26/17 18:00 12/26/17 18:32 Sodium 2.5 mg PO 7.5 mg DAILY@1800 [facility] Administration ASSESSMENT/PLAN: 1. Abdominal pain secondary to biliary dyskinesia - s/p laparoscopic cholecystectomy 12/25 - Tolerating diet 2. COPD - Stable - Continue Singulair, DuoNeb 3. Atrial fibrillation with rapid ventricular response - Rate controlled - Continue Cardizem CD, Digoxin - Coumadin restarted - Continue heparin IV drip until INR therapeutic 4. History of left IJ thrombosis 5. History of bioprosthetic mitral valve 6. Dementia with delirium - Delirium resolved - Aricept was increased 7. Chronic systolic and diastolic heart failure - Stable 8. HTN - Continue Cardizem CD, Cozaar 9. Hyperthyroidism - Continue Tapazole Visit type - Emergency Visit Emergency Visit: Yes ED Registration Date: 12/17/17 Care time: The patient presented to the Emergency Department on the above date and was hospitalized for further evaluation of their emergent condition. - New Patient This patient is new to me today: No - Critical Care Critical Care patient: No - Discharge Referral Referred to [facility] Med [facility].C[facility] No
[2017-12-27] MEDS ORDERED: PT OWN MED DRAWER 7, Y5N ONE (09:49)
[2017-12-27] MEDS: DIGOXIN 0.125 MG TABLET (FP) PO SCH (09:51)
[2017-12-27] MEDS: VITAMIN B COMPLEX W/C COMBO TABLET (FP) PO SCH (09:52)
[2017-12-27] MEDS: MEGESTROL ACETATE 40 MG TABLET PO SCH (09:52)
[2017-12-27] MEDS: POLYETHYLENE GLYCOL 3350 119 GM BTL PO SCH (09:53)
[2017-12-27 09:54] LABS: BASO % 0.5 % (0-2.0); HEMATOCRIT 37.3 % (32.4-45.2); HEMOGLOBIN 12.2 GM/dL (10.7-15.3); LYMPH % 16.8 % (8-40); MCH 28.6 pg (25.7-33.7); MCHC 32.6 g/dl (32.0-36.0); MEAN CELL VOLUME 87.7 fl (80-96); MEAN PLT VOLUME 8.7 fl (7.5-11.1); MONO % 10.3 % (3.8-10.2); NEUT % 72.4 % (42.8-82.8); PLATELET COUNT 192 K/MM3 (134-434); RBC 4.25 M/mm3 (3.60-5.2); RDW 19.9 % (11.6-15.6); WHITE BLOOD COUNT 6.3 K/mm3 (4.0-10.0)
[2017-12-27 09:58] LABS: INR 1.64 (0.82-1.09); PROTHROMBIN TIME (PATIENT) 18.5 SEC (9.98-11.88)
--- NOTE | 2017-12-27 09:59 | PN ---
Progress Note (short form) - Note Progress Note: Feels OK today except for mild abdominal discomfort. No CP or SOB. No acute events overnight. Intake & Output 12/24/17 12/25/17 12/26/17 12/27/17 23:59 23:59 23:59 23:59 Intake Total 300 1150 530 240 Output Total 30 Balance 300 1120 530 240 Weight 178 lb 171 lb 176 lb 8 oz Last Vital Signs Temp Pulse Resp BP Pulse Ox 97.3 F L 92 H 20 127/77 100 12/27/17 06:00 12/27/17 09:51 12/27/17 06:00 12/27/17 06:00 12/26/17 20:14 Active Medications Acetaminophen (Tylenol -) 650 mg PO Q4H PRN PRN Reason: FEVER Acetaminophen (Ofirmev Injection -) 1,000 mg IVPB Q6H PRN PRN Reason: PAIN Last Admin: 12/25/17 15:20 Dose: 1,000 mg Albuterol/Ipratropium (Duoneb -) 1 amp NEB Q4H [facility] Last Admin: 12/27/17 04:02 Dose: Not Given Digoxin (Lanoxin -) 0.125 mg PO DAILY [facility] Last Admin: 12/27/17 09:51 Dose: 0.125 mg Diltiazem HCl (Cardizem Cd -) 360 mg PO DAILY [facility] Last Admin: 12/27/17 09:51 Dose: 360 mg Donepezil HCl (Aricept -) 10 mg PO HS [facility] Last Admin: 12/26/17 22:07 Dose: 10 mg Heparin Sodium (Porcine) (Heparin -) 1,000 unit IVPUSH PRN PRN PRN Reason: Heparin Heparin Sodium (Porcine) (Heparin -) 5,000 unit IVPUSH PRN PRN PRN Reason: Heparin Heparin Sodium/Dextrose (Heparin Infusion -) 25,000 units in 500 mls @ 20 mls/ hr IVPB TITR [facility]; 1,000 UNITS/HR PRN Reason: Protocol Last Admin: 12/27/17 03:15 Dose: 1,000 units/hr, 20 mls/hr Losartan Potassium (Cozaar -) 25 mg PO DAILY@1800 [facility] Last Admin: 12/26/17 18:33 Dose: 25 mg Megestrol Acetate (Megace -) 40 mg PO DAILY [facility] Last Admin: 12/27/17 09:52 Dose: 40 mg Methimazole (Tapazole -) 10 mg PO AM [facility] Last Admin: 12/27/17 06:20 Dose: 10 mg Montelukast Sodium (Singulair -) 10 mg PO HS [facility] Last Admin: 12/26/17 22:07 Dose: 10 mg Multivitamins (Total B With C -) 1 each PO DAILY [facility] Last Admin: 12/27/17 09:52 Dose: 1 each Ondansetron HCl (Zofran Injection) 4 mg IVPUSH Q6H PRN PRN Reason: NAUSEA AND/OR VOMITING Polyethylene Glycol (Miralax (For Daily Use) -) 17 gm PO DAILY [facility] Last Admin: 12/27/17 09:53 Dose: 17 gm Warfarin Sodium 5 mg/ Warfarin (Sodium 2.5 mg) 7.5 mg PO DAILY@1800 [facility] Last Admin: 12/26/17 18:32 Dose: 7.5 mg Constitutional: Yes: No Distress Eyes: Yes: Conjunctiva Clear, EOM Intact HENT: Yes: Atraumatic, Normocephalic Neck: Yes: Supple, Trachea Midline Cardiovascular: Yes: Regular Rate and Rhythm Respiratory: Yes: Cough, no Wheezes, few scattered rhonchi. No: Accessory Muscle Use, Rales ...Inspection: Yes: WNL Gastrointestinal: Yes: Soft, (+) BS, mild tenderness Musculoskeletal: Yes: WNL Extremities: Yes: WNL Edema: No Peripheral Pulses WNL: Yes Neurological: Yes: Non-focal Labs: Laboratory Results - last 24 hr 12/26/17 12/26/17 12/26/17 12:36 14:15 17:15 WBC 4.8 D RBC 4.02 Hgb 11.5 Hct 35.2 MCV 87.5 MCH 28.7 MCHC 32.8 RDW 19.8 H Plt Count 213 MPV 8.5 Neutrophils % 73.7 Lymphocytes % 12.1 D Monocytes % 13.8 H Eosinophils % 0.0 Basophils % 0.4 POC Glucometer 233 204 Problem List - Problems (1) Abdominal pain Code(s): R10.9 - UNSPECIFIED ABDOMINAL PAIN Qualifiers: Abdominal location: right upper quadrant Qualified Code(s): R10.11 - Right upper quadrant pain (2) Chronic cholecystitis Code(s): K81.1 - CHRONIC CHOLECYSTITIS (3) Altered mental status Code(s): R41.82 - ALTERED MENTAL STATUS, UNSPECIFIED (4) Asthma Code(s): J45.909 - UNSPECIFIED ASTHMA, UNCOMPLICATED Qualifiers: Asthma severity: mild persistent (5) Atrial fibrillation Code(s): I48.91 - UNSPECIFIED ATRIAL FIBRILLATION Qualifiers: Atrial fibrillation type: permanent Qualified Code(s): I48.2 - Chronic atrial fibrillation (6) CHF (congestive heart failure) Code(s): I50.9 - HEART FAILURE, UNSPECIFIED (7) COPD (chronic obstructive pulmonary disease) Code(s): J44.9 - CHRONIC OBSTRUCTIVE PULMONARY DISEASE, UNSPECIFIED (8) Cholelithiasis Code(s): K80.20 - CALCULUS OF GALLBLADDER W/O CHOLECYSTITIS W/O OBSTRUCTION Qualifiers: Cholelithiasis location: gallbladder Cholecystitis presence: without cholecystitis Biliary obstruction: without biliary obstruction Qualified Code(s): K80.20 - Calculus of gallbladder without cholecystitis without obstruction (9) Confusion Code(s): R41.0 - DISORIENTATION, UNSPECIFIED (10) Diabetes Code(s): E11.9 - TYPE 2 DIABETES MELLITUS WITHOUT COMPLICATIONS (11) H/O heart valve replacement with bioprosthetic valve Code(s): Z95.3 - PRESENCE OF XENOGENIC HEART VALVE (12) Hyperthyroidism Code(s): E05.90 - THYROTOXICOSIS, UNSP WITHOUT THYROTOXIC CRISIS OR STORM (13) Left atrial dilatation Code(s): I51.7 - CARDIOMEGALY (14) Mitral regurgitation Code(s): I34.0 - NONRHEUMATIC MITRAL (VALVE) INSUFFICIENCY Qualifiers: Cardiac valve disease etiology: nonrheumatic Qualified Code(s): I34.0 - Nonrheumatic mitral (valve) insufficiency (15) VHD (valvular heart disease) Code(s): I38 - ENDOCARDITIS, VALVE UNSPECIFIED Assessment/Plan Incentive Spiromtrey O2 as needed PO per surgery IV Heparin / coumadin bridging OOB to chair Dr Gonzales Problem List - Problems (1) Abdominal pain Code(s): R10.9 - UNSPECIFIED ABDOMINAL PAIN Qualifiers: Abdominal location: right upper quadrant Qualified Code(s): R10.11 - Right upper quadrant pain (2) Chronic cholecystitis Code(s): K81.1 - CHRONIC CHOLECYSTITIS (3) Altered mental status Code(s): R41.82 - ALTERED MENTAL STATUS, UNSPECIFIED (4) Asthma Code(s): J45.909 - UNSPECIFIED ASTHMA, UNCOMPLICATED Qualifiers: Asthma severity: mild persistent (5) Atrial fibrillation Code(s): I48.91 - UNSPECIFIED ATRIAL FIBRILLATION Qualifiers: Atrial fibrillation type: permanent Qualified Code(s): I48.2 - Chronic atrial fibrillation (6) CHF (congestive heart failure) Code(s): I50.9 - HEART FAILURE, UNSPECIFIED (7) COPD (chronic obstructive pulmonary disease) Code(s): J44.9 - CHRONIC OBSTRUCTIVE PULMONARY DISEASE, UNSPECIFIED (8) Cholelithiasis Code(s): K80.20 - CALCULUS OF GALLBLADDER W/O CHOLECYSTITIS W/O OBSTRUCTION Qualifiers: Cholelithiasis location: gallbladder Cholecystitis presence: without cholecystitis Biliary obstruction: without biliary obstruction Qualified Code(s): K80.20 - Calculus of gallbladder without cholecystitis without obstruction (9) Confusion Code(s): R41.0 - DISORIENTATION, UNSPECIFIED (10) Diabetes Code(s): E11.9 - TYPE 2 DIABETES MELLITUS WITHOUT COMPLICATIONS (11) H/O heart valve replacement with bioprosthetic valve Code(s): Z95.3 - PRESENCE OF XENOGENIC HEART VALVE (12) Hyperthyroidism Code(s): E05.90 - THYROTOXICOSIS, UNSP WITHOUT THYROTOXIC CRISIS OR STORM (13) Left atrial dilatation Code(s): I51.7 - CARDIOMEGALY (14) Mitral regurgitation Code(s): I34.0 - NONRHEUMATIC MITRAL (VALVE) INSUFFICIENCY Qualifiers: Cardiac valve disease etiology: nonrheumatic Qualified Code(s): I34.0 - Nonrheumatic mitral (valve) insufficiency (15) VHD (valvular heart disease) Code(s): I38 - ENDOCARDITIS, VALVE UNSPECIFIED
[2017-12-27 10:16] LABS: ANION GAP 10 (8-16); BLOOD UREA NITROGEN 20 mg/dL (7-18); CALCIUM 8.3 mg/dL (8.5-10.1); CHLORIDE 106 mmol/L (98-107); CO2 24 mmol/L (21-32); CREATININE 0.7 mg/dL (0.55-1.02); GLUCOSE,RANDOM 110 mg/dL (74-106); POTASSIUM 4.3 mmol/L (3.5-5.1); SODIUM 140 mmol/L (136-145)
[2017-12-27] MEDS ORDERED: WARFARIN NA 5 MG TABLET (UD) ONE (17:43)
[2017-12-27] MEDS ORDERED: WARFARIN NA 2.5 MG TABLET (FP) ONE (17:43)
[2017-12-27] MEDS: WARFARIN NA 5 MG, WARFARIN NA 2.5 MG PO SCH (18:29)
[2017-12-27] MEDS: LOSARTAN POTASSIUM 25 MG TABLET PO SCH (18:29)
--- NOTE | 2017-12-27 19:24 | PN ---
Progress Note, Physician Chief Complaint: Pt is confused; unsure where she is. Denies chest pain or dyspnea. History of Present Illness: 77 y/o black woman with PMH dementia, afib, on warfarin; (s/p bioprosthetic mitral valve replacement), mild systolic CHF, HTN, fatty liver disease, hypothyroidism, recently at [facility] (d/c yesterday for biliary colic),obesity, who was BIBEMS d/t weakness and lethargy since yesterday. As per EMS, daughter called since pt was extremely weak and was "not being herself." Additionally, pt had decreased PO intake and decreased appetite during this time. Pt also endorses RUQ, inferior sternal pain over the past day. Yesterday, her pain was constant, 10/10, however today she states that it is a 5/10. States that pain is similar to her biliary colic. Denies fever, chills, SOB, or changes in urinary or bowel function. Pt is a poor historian, and daughter is unreachable via phone. At baseline, pt lives with her daughter however she is unable to take care of her d/t increased falls. - Current Medication List Current Medications: Active Medications Acetaminophen (Tylenol -) 650 mg PO Q4H PRN PRN Reason: FEVER Acetaminophen (Ofirmev Injection -) 1,000 mg IVPB Q6H PRN PRN Reason: PAIN Last Admin: 12/25/17 15:20 Dose: 1,000 mg Albuterol/Ipratropium (Duoneb -) 1 amp NEB Q4H [facility] Last Admin: 12/27/17 16:25 Dose: 1 amp Digoxin (Lanoxin -) 0.125 mg PO DAILY [facility] Last Admin: 12/27/17 09:51 Dose: 0.125 mg Diltiazem HCl (Cardizem Cd -) 360 mg PO DAILY [facility] Last Admin: 12/27/17 09:51 Dose: 360 mg Donepezil HCl (Aricept -) 10 mg PO HS [facility] Last Admin: 12/26/17 22:07 Dose: 10 mg Heparin Sodium (Porcine) (Heparin -) 1,000 unit IVPUSH PRN PRN PRN Reason: Heparin Heparin Sodium (Porcine) (Heparin -) 5,000 unit IVPUSH PRN PRN PRN Reason: Heparin Last Admin: 12/27/17 16:20 Dose: 5,000 unit Heparin Sodium/Dextrose (Heparin Infusion -) 25,000 units in 500 mls @ 20 mls/ hr IVPB TITR [facility]; 1,000 UNITS/HR PRN Reason: Protocol Last Titration: 12/27/17 16:20 Dose: 1,150 units/hr, 23 mls/hr Losartan Potassium (Cozaar -) 25 mg PO DAILY@1800 [facility] Last Admin: 12/27/17 18:29 Dose: 25 mg Megestrol Acetate (Megace -) 40 mg PO DAILY [facility] Last Admin: 12/27/17 09:52 Dose: 40 mg Methimazole (Tapazole -) 10 mg PO AM [facility] Last Admin: 12/27/17 06:20 Dose: 10 mg Montelukast Sodium (Singulair -) 10 mg PO HS [facility] Last Admin: 12/26/17 22:07 Dose: 10 mg Multivitamins (Total B With C -) 1 each PO DAILY [facility] Last Admin: 12/27/17 09:52 Dose: 1 each Ondansetron HCl (Zofran Injection) 4 mg IVPUSH Q6H PRN PRN Reason: NAUSEA AND/OR VOMITING Polyethylene Glycol (Miralax (For Daily Use) -) 17 gm PO DAILY [facility] Last Admin: 12/27/17 09:53 Dose: 17 gm Warfarin Sodium 5 mg/ Warfarin (Sodium 2.5 mg) 7.5 mg PO DAILY@1800 [facility] Last Admin: 12/27/17 18:29 Dose: 7.5 mg - Objective Vital Signs: Vital Signs Temperature 97.4 F L 12/27/17 17:07 Pulse Rate 94 H 12/27/17 17:07 Respiratory Rate 20 12/27/17 17:07 Blood Pressure 129/70 12/27/17 17:07 O2 Sat by Pulse Oximetry (%) 100 12/27/17 09:00 Constitutional: Yes: Anxious Eyes: Yes: WNL HENT: Yes: WNL Neck: Yes: WNL Labs: CBC, BMP 12/27/17 09:30 12/27/17 09:30 INR, PTT INR 1.64 (0.82-1.09) H 12/27/17 09:30 Problem List - Problems (1) Chronic systolic (congestive) heart failure Assessment/Plan: on losartan, diltiazem (hx of COPD and ?asthma may mitigate against using beta blockers), digoxin (level 0.6: keep 0.5-1.0). F/u BUn/Cr, electrolytes, Is and os, daily weight. Code(s): I50.22 - CHRONIC SYSTOLIC (CONGESTIVE) HEART FAILURE (2) Mitral valve replaced Assessment/Plan: BIOprosthetic MV. Code(s): Z95.2 - PRESENCE OF PROSTHETIC HEART VALVE (3) Abdominal pain Code(s): R10.9 - UNSPECIFIED ABDOMINAL PAIN (4) DVT (deep venous thrombosis) Code(s): I82.409 - ACUTE EMBOLISM AND THOMBOS UNSP DEEP VN UNSP LOWER EXTREMITY Qualifiers: DVT location: non-extremity vein Chronicity: unspecified Qualified Code(s ): I82.90 - Acute embolism and thrombosis of unspecified vein (5) Diabetes Code(s): E11.9 - TYPE 2 DIABETES MELLITUS WITHOUT COMPLICATIONS (6) Fall Code(s): W19.XXXA - UNSPECIFIED FALL, INITIAL ENCOUNTER Qualifiers: Encounter type: initial encounter Qualified Code(s): W19.XXXA - Unspecified fall, initial encounter (7) [place] cardiac risk >20% in next 10 years Code(s): Z91.89 - OT PERSONAL RISK FACTORS, NOT ELSEWHERE CLASSIFIED (8) History of mitral valve replacement with bioprosthetic valve Code(s): Z95.3 - PRESENCE OF XENOGENIC HEART VALVE (9) Hypertension Code(s): I10 - ESSENTIAL (PRIMARY) HYPERTENSION Qualifiers: Hypertension type: essential hypertension Qualified Code(s): I10 - Essential (primary) hypertension (10) Pulmonary arterial hypertension Assessment/Plan: severe, by recent ECHO. Code(s): I27.2 - OTHER SECONDARY PULMONARY HYPERTENSION * DO NOT USE * (11) Dyskinesia of gallbladder Code(s): K82.8 - OTHER SPECIFIED DISEASES OF GALLBLADDER (12) Hyperlipidemia Assessment/Plan: LDL 120s in 2017. Statin, diet change, weight loss, exercise. Code(s): E78.5 - HYPERLIPIDEMIA, UNSPECIFIED (13) Hyperthyroidism Code(s): E05.90 - THYROTOXICOSIS, UNSP WITHOUT THYROTOXIC CRISIS OR STORM
[2017-12-27] MEDS: DONEPEZIL HCL 10 MG TABLET (FP) PO SCH (21:43)
[2017-12-27] MEDS: MONTELUKAST NA 10 MG TABLET PO SCH (21:43)
[2017-12-28] MEDS: ALBUTEROL SO4 2.5/IPRATROPIUM 0.5 INH SOL 3 ML VIAL.NEB. NEB SCH ×6 (00:30→20:36)
[2017-12-28] MEDS: HEPARIN INFUSION - 25,000 UNITS/500 ML INFUS.BAG IVPB SCH (00:53)
[2017-12-28] MEDS: METHIMAZOLE 5 MG TABLET (FP) PO SCH (06:23)
[2017-12-28 07:23] LABS: HEMATOCRIT 32.5 % (32.4-45.2); HEMOGLOBIN 10.7 GM/dL (10.7-15.3); MCH 28.8 pg (25.7-33.7); MCHC 32.8 g/dl (32.0-36.0); MEAN CELL VOLUME 87.8 fl (80-96); MEAN PLT VOLUME 8.5 fl (7.5-11.1); PLATELET COUNT 180 K/MM3 (134-434); RDW 20.3 % (11.6-15.6)
[2017-12-28 07:38] LABS: INR 2.53 (0.82-1.09); PROTHROMBIN TIME (PATIENT) 28.6 SEC (9.98-11.88)
--- NOTE | 2017-12-28 08:29 | PN ---
Physical Exam: SUBJECTIVE: Patient seen and examined. She complains of SOB. OBJECTIVE: Vital Signs Period Temp Pulse Resp BP Sys/[place]ia Pulse Ox Last 24 Hr 97.4 F-98.4 F 70-94 18-20 116-129/60-92 100-100 GENERAL: The patient is awake, alert, and fully oriented, mild respiratory distress. LUNGS: Breath sounds equal, bilateral wheezes and rhonchi, no accessory muscle use. HEART: Irregularly irregular. ABDOMEN: Soft, nontender, nondistended, normoactive bowel sounds, no guarding, no rebound, no hepatosplenomegaly, no masses. EXTREMITIES: 2+ pulses, warm, well-perfused, no edema. Laboratory Results - last 24 hr 12/27/17 12/27/17 12/27/17 09:30 09:30 09:30 WBC RBC Hgb Hct MCV MCH MCHC RDW Plt Count MPV Neutrophils % Lymphocytes % Monocytes % Eosinophils % Basophils % PT with INR 18.50 H INR 1.64 H PTT (Actin FS) 30.2 D Sodium 140 Potassium 4.3 Chloride 106 Carbon Dioxide 24 Anion Gap 10 BUN 20 H Creatinine 0.7 Random Glucose 110 H Calcium 8.3 L 12/27/17 12/28/17 12/28/17 09:30 00:05 06:08 WBC 6.3 D RBC 4.25 Hgb 12.2 Hct 37.3 MCV 87.7 MCH 28.6 MCHC 32.6 RDW 19.9 H Plt Count 192 MPV 8.7 Neutrophils % 72.4 Lymphocytes % 16.8 D Monocytes % 10.3 H Eosinophils % 0.0 Basophils % 0.5 PT with INR 28.60 H INR 2.53 H D PTT (Actin FS) 50.8 H D Sodium Potassium Chloride Carbon Dioxide Anion Gap BUN Creatinine Random Glucose Calcium 12/28/17 12/28/17 06:08 06:08 WBC 7.0 RBC 3.70 Hgb 10.7 D Hct 32.5 MCV 87.8 MCH 28.8 MCHC 32.8 RDW 20.3 H Plt Count 180 MPV 8.5 Neutrophils % Lymphocytes % Monocytes % Eosinophils % Basophils % PT with INR INR PTT (Actin FS) 230.2 H Sodium Potassium Chloride Carbon Dioxide Anion Gap BUN Creatinine Random Glucose Calcium Active Medications Generic Name Dose Route Start Last Admin Trade Name Freq PRN Reason Stop Dose Admin Acetaminophen 650 mg 12/25/17 15:39 Tylenol - PO Q4H PRN FEVER Acetaminophen 1,000 mg 12/25/17 15:39 12/25/17 15:20 Ofirmev Injection - IVPB 1,000 mg Q6H PRN Administration PAIN Albuterol/Ipratropium 1 amp 12/26/17 00:00 12/28/17 07:10 Duoneb - NEB 1 amp Q4H [facility] Administration Digoxin 0.125 mg 12/26/17 10:00 12/27/17 09:51 Lanoxin - PO 0.125 mg DAILY [facility] Administration Diltiazem HCl 360 mg 12/26/17 10:00 12/27/17 09:51 Cardizem Cd - PO 360 mg DAILY [facility] Administration Donepezil HCl 10 mg 12/25/17 22:00 12/27/17 21:43 Aricept - PO 10 mg HS [facility] Administration Heparin Sodium (Porcine) 1,000 unit 12/25/17 23:36 Heparin - IVPUSH PRN PRN Heparin Heparin Sodium (Porcine) 5,000 unit 12/25/17 23:36 12/27/17 16:20 Heparin - IVPUSH 5,000 unit PRN PRN Administration Heparin Heparin Sodium/Dextrose 25,000 units in 500 mls @ 20 mls/hr 12/25/17 23:45 00:53 Heparin Infusion - IVPB Not Given TITR [facility] Protocol 1,000 UNITS/HR Losartan Potassium 25 mg 12/25/17 18:00 12/27/17 18:29 Cozaar - PO 25 mg DAILY@1800 [facility] Administration Megestrol Acetate 40 mg 12/26/17 10:00 12/27/17 09:52 Megace - PO 40 mg DAILY [facility] Administration Methimazole 10 mg 12/26/17 07:00 12/28/17 06:23 Tapazole - PO 10 mg AM [facility] Administration Montelukast Sodium 10 mg 12/25/17 22:00 12/27/17 21:43 Singulair - PO 10 mg HS [facility] Administration Multivitamins 1 each 12/26/17 10:00 12/27/17 09:52 Total B With C - PO 1 each DAILY [facility] Administration Ondansetron HCl 4 mg 12/25/17 15:39 Zofran Injection IVPUSH Q6H PRN NAUSEA AND/OR VOMITING Polyethylene Glycol 17 gm 12/26/17 10:00 12/27/17 09:53 Miralax (For Daily Use) - PO 17 gm DAILY [facility] Administration Warfarin Sodium 5 mg/ Warfarin 7.5 mg 12/26/17 18:00 12/27/17 18:29 Sodium 2.5 mg PO 7.5 mg DAILY@1800 [facility] Administration ASSESSMENT/PLAN: 1. Abdominal pain secondary to biliary dyskinesia - s/p laparoscopic cholecystectomy 12/25 - Tolerating diet 2. COPD - Patient feels SOB and is wheezing - Albuterol neb, CXR - Continue David Etienne 3. Atrial fibrillation with rapid ventricular response - Rate controlled - Continue Cardizem CD, Digoxin - Coumadin restarted - Continue heparin IV drip until INR therapeutic 4. History of left IJ thrombosis 5. History of bioprosthetic mitral valve 6. Dementia with delirium - Delirium resolved - Aricept was increased 7. Chronic systolic and diastolic heart failure - Patient feels SOB but does not appear fluid overloaded - Check CXR 8. HTN - Continue CardizeChiki monique CD 9. Hyperthyroidism - Continue Tapazole Visit type - Emergency Visit Emergency Visit: Yes ED Registration Date: 12/17/17 Care time: The patient presented to the Emergency Department on the above date and was hospitalized for further evaluation of their emergent condition. - New Patient This patient is new to me today: No - Critical Care Critical Care patient: No - Discharge Referral Referred to [facility] Med [facility] No
[2017-12-28] MEDS ORDERED: ALBUTEROL SO4 0.083% IH SOL 2.5 MG/3 ML VIAL.NEB. NEB PRN (08:34)
[2017-12-28] MEDS ORDERED: PT OWN MED DRAWER 7, Y5N ONE (09:20)
[2017-12-28] MEDS: VITAMIN B COMPLEX W/C COMBO TABLET (FP) PO SCH (09:21)
[2017-12-28] MEDS: DIGOXIN 0.125 MG TABLET (FP) PO SCH (09:21)
[2017-12-28] MEDS: MEGESTROL ACETATE 40 MG TABLET PO SCH (09:21)
[2017-12-28] MEDS: POLYETHYLENE GLYCOL 3350 119 GM BTL PO SCH (09:23)
--- NOTE | 2017-12-28 10:27 | PN ---
Progress Note (short form) - Note Progress Note: Increased wheezing and SOB taht started overnight. No CP. Denies abdominal pain. Intake & Output 12/25/17 12/26/17 12/27/17 12/28/17 23:59 23:59 23:59 23:59 Intake Total 1150 530 790 200 Output Total 30 400 Balance 1120 530 390 200 Weight 171 lb 176 lb 8 oz 176 lb 12.8 oz Last Vital Signs Temp Pulse Resp BP Pulse Ox 98.1 F 90 20 116/76 100 12/28/17 06:00 12/28/17 09:21 12/28/17 06:00 12/28/17 06:00 12/27/17 21:00 Active Medications Acetaminophen (Tylenol -) 650 mg PO Q4H PRN PRN Reason: FEVER Last Admin: 12/28/17 09:22 Dose: 650 mg Acetaminophen (Ofirmev Injection -) 1,000 mg IVPB Q6H PRN PRN Reason: PAIN Last Admin: 12/25/17 15:20 Dose: 1,000 mg Albuterol Sulfate (Ventolin 0.083% Nebulizer Soln -) 1 amp NEB Q4H PRN PRN Reason: SHORT OF BREATH/WHEEZING Albuterol/Ipratropium (Duoneb -) 1 amp NEB RQID [facility] Digoxin (Lanoxin -) 0.125 mg PO DAILY [facility] Last Admin: 12/28/17 09:21 Dose: 0.125 mg Diltiazem HCl (Cardizem Cd -) 360 mg PO DAILY [facility] Last Admin: 12/28/17 09:21 Dose: 360 mg Donepezil HCl (Aricept -) 10 mg PO HS [facility] Last Admin: 12/27/17 21:43 Dose: 10 mg Losartan Potassium (Cozaar -) 25 mg PO DAILY@1800 [facility] Last Admin: 12/27/17 18:29 Dose: 25 mg Megestrol Acetate (Megace -) 40 mg PO DAILY [facility] Last Admin: 12/28/17 09:21 Dose: 40 mg Methimazole (Tapazole -) 10 mg PO AM [facility] Last Admin: 12/28/17 06:23 Dose: 10 mg Montelukast Sodium (Singulair -) 10 mg PO [facility] Last Admin: 12/27/17 21:43 Dose: 10 mg Multivitamins (Total B With C -) 1 each PO DAILY [facility] Last Admin: 12/28/17 09:21 Dose: 1 each Ondansetron HCl (Zofran Injection) 4 mg IVPUSH Q6H PRN PRN Reason: NAUSEA AND/OR VOMITING Polyethylene Glycol (Miralax (For Daily Use) -) 17 gm PO DAILY [facility] Last Admin: 12/28/17 09:23 Dose: 17 gm Warfarin Sodium (Coumadin -) 5 mg PO DAILY@1800 [facility] Constitutional: Yes: Mildly tachypneic at rest Eyes: Yes: Conjunctiva Clear, EOM Intact HENT: Yes: Atraumatic, Normocephalic Neck: Yes: Supple, Trachea Midline Cardiovascular: Yes: Regular Rate and Rhythm Respiratory: Yes: Cough, (+) Bilateral expiratory wheezes, few scattered rhonchi. No: Accessory Muscle Use, Rales ...Inspection: Yes: WNL Gastrointestinal: Yes: Soft, (+) BS, mild tenderness Musculoskeletal: Yes: WNL Extremities: Yes: WNL Edema: No Peripheral Pulses WNL: Yes Neurological: Yes: Non-focal Labs: Laboratory Results - last 24 hr 12/27/17 12/28/17 12/28/17 09:30 00:05 06:08 WBC 6.3 D RBC 4.25 Hgb 12.2 Hct 37.3 MCV 87.7 MCH 28.6 MCHC 32.6 RDW 19.9 H Plt Count 192 MPV 8.7 Neutrophils % 72.4 Lymphocytes % 16.8 D Monocytes % 10.3 H Eosinophils % 0.0 Basophils % 0.5 PT with INR 28.60 H INR 2.53 H D PTT (Actin FS) 50.8 H D Digoxin 12/28/17 12/28/17 12/28/17 06:08 06:08 06:08 WBC 7.0 RBC 3.70 Hgb 10.7 D Hct 32.5 MCV 87.8 MCH 28.8 MCHC 32.8 RDW 20.3 H Plt Count 180 MPV 8.5 Neutrophils % Lymphocytes % Monocytes % Eosinophils % Basophils % PT with INR INR PTT (Actin FS) 230.2 H Digoxin 0.7901 L Problem List - Problems (1) Abdominal pain Code(s): R10.9 - UNSPECIFIED ABDOMINAL PAIN Qualifiers: Abdominal location: right upper quadrant Qualified Code(s): R10.11 - Right upper quadrant pain (2) Chronic cholecystitis Code(s): K81.1 - CHRONIC CHOLECYSTITIS (3) Altered mental status Code(s): R41.82 - ALTERED MENTAL STATUS, UNSPECIFIED (4) Asthma Code(s): J45.909 - UNSPECIFIED ASTHMA, UNCOMPLICATED Qualifiers: Asthma severity: mild persistent (5) Atrial fibrillation Code(s): I48.91 - UNSPECIFIED ATRIAL FIBRILLATION Qualifiers: Atrial fibrillation type: permanent Qualified Code(s): I48.2 - Chronic atrial fibrillation (6) CHF (congestive heart failure) Code(s): I50.9 - HEART FAILURE, UNSPECIFIED (7) COPD (chronic obstructive pulmonary disease) Code(s): J44.9 - CHRONIC OBSTRUCTIVE PULMONARY DISEASE, UNSPECIFIED (8) Cholelithiasis Code(s): K80.20 - CALCULUS OF GALLBLADDER W/O CHOLECYSTITIS W/O OBSTRUCTION Qualifiers: Cholelithiasis location: gallbladder Cholecystitis presence: without cholecystitis Biliary obstruction: without biliary obstruction Qualified Code(s): K80.20 - Calculus of gallbladder without cholecystitis without obstruction (9) Confusion Code(s): R41.0 - DISORIENTATION, UNSPECIFIED (10) Diabetes Code(s): E11.9 - TYPE 2 DIABETES MELLITUS WITHOUT COMPLICATIONS (11) H/O heart valve replacement with bioprosthetic valve Code(s): Z95.3 - PRESENCE OF XENOGENIC HEART VALVE (12) Hyperthyroidism Code(s): E05.90 - THYROTOXICOSIS, UNSP WITHOUT THYROTOXIC CRISIS OR STORM (13) Left atrial dilatation Code(s): I51.7 - CARDIOMEGALY (14) Mitral regurgitation Code(s): I34.0 - NONRHEUMATIC MITRAL (VALVE) INSUFFICIENCY Qualifiers: Cardiac valve disease etiology: nonrheumatic Qualified Code(s): I34.0 - Nonrheumatic mitral (valve) insufficiency (15) VHD (valvular heart disease) Code(s): I38 - ENDOCARDITIS, VALVE UNSPECIFIED Assessment/Plan Course of Medrol Noted CXR ordered DB TX ordered QIQ and PRN Incentive Spiromtrey O2 as needed PO per surgery Coumadin OOB to chair as tolerated Dr Gonzales Problem List - Problems (1) Abdominal pain Code(s): R10.9 - UNSPECIFIED ABDOMINAL PAIN Qualifiers: Abdominal location: right upper quadrant Qualified Code(s): R10.11 - Right upper quadrant pain (2) Chronic cholecystitis Code(s): K81.1 - CHRONIC CHOLECYSTITIS (3) Altered mental status Code(s): R41.82 - ALTERED MENTAL STATUS, UNSPECIFIED (4) Asthma Code(s): J45.909 - UNSPECIFIED ASTHMA, UNCOMPLICATED Qualifiers: Asthma severity: mild persistent (5) Atrial fibrillation Code(s): I48.91 - UNSPECIFIED ATRIAL FIBRILLATION Qualifiers: Atrial fibrillation type: permanent Qualified Code(s): I48.2 - Chronic atrial fibrillation (6) CHF (congestive heart failure) Code(s): I50.9 - HEART FAILURE, UNSPECIFIED (7) COPD (chronic obstructive pulmonary disease) Code(s): J44.9 - CHRONIC OBSTRUCTIVE PULMONARY DISEASE, UNSPECIFIED (8) Cholelithiasis Code(s): K80.20 - CALCULUS OF GALLBLADDER W/O CHOLECYSTITIS W/O OBSTRUCTION Qualifiers: Cholelithiasis location: gallbladder Cholecystitis presence: without cholecystitis Biliary obstruction: without biliary obstruction Qualified Code(s): K80.20 - Calculus of gallbladder without cholecystitis without obstruction (9) Confusion Code(s): R41.0 - DISORIENTATION, UNSPECIFIED (10) Diabetes Code(s): E11.9 - TYPE 2 DIABETES MELLITUS WITHOUT COMPLICATIONS (11) H/O heart valve replacement with bioprosthetic valve Code(s): Z95.3 - PRESENCE OF XENOGENIC HEART VALVE (12) Hyperthyroidism Code(s): E05.90 - THYROTOXICOSIS, UNSP WITHOUT THYROTOXIC CRISIS OR STORM (13) Left atrial dilatation Code(s): I51.7 - CARDIOMEGALY (14) Mitral regurgitation Code(s): I34.0 - NONRHEUMATIC MITRAL (VALVE) INSUFFICIENCY Qualifiers: Cardiac valve disease etiology: nonrheumatic Qualified Code(s): I34.0 - Nonrheumatic mitral (valve) insufficiency (15) VHD (valvular heart disease) Code(s): I38 - ENDOCARDITIS, VALVE UNSPECIFIED
[2017-12-28] MEDS: methylPREDNISolone NA SUCC 40 MG/1 ML VIAL IVPUSH SCH ×2 (11:22→17:26)
[2017-12-28] MEDS: LOSARTAN POTASSIUM 25 MG TABLET PO SCH (17:26)
[2017-12-28] MEDS ORDERED: WARFARIN NA 5 MG TABLET (UD) PO SCH (18:00)
--- NOTE | 2017-12-28 21:35 | PN ---
Progress Note, Physician Chief Complaint: Pt is confused; says she cannot contact her daughter in [place], though was talking to her shortly before. History of Present Illness: 77 y/o black woman with PMH dementia, afib (on coumadin; s/p valve replacement) , CHF, HTN, fatty liver disease, hypothyroidism, recently at [facility] (d/c yesterday for biliary colic), who was BIBEMS d/t weakness and lethargy since yesterday. As per EMS, daughter called since pt was extremely weak and was "not being herself." Additionally, pt had decreased PO intake and decreased appetite during this time. Pt also endorses RUQ, inferior sternal pain over the past day. Yesterday, her pain was constant, 10/10, however today she states that it is a 5/10. States that pain is similar to her biliary colic. Denies fever, chills, SOB, or changes in urinary or bowel function. Pt is a poor historian, and daughter is unreachable via phone. At baseline, pt lives with her daughter however she is unable to take care of her d/t increased falls. - Current Medication List Current Medications: Active Medications Acetaminophen (Tylenol -) 650 mg PO Q4H PRN PRN Reason: FEVER Last Admin: 12/28/17 09:22 Dose: 650 mg Acetaminophen (Ofirmev Injection -) 1,000 mg IVPB Q6H PRN PRN Reason: PAIN Last Admin: 12/25/17 15:20 Dose: 1,000 mg Albuterol Sulfate (Ventolin 0.083% Nebulizer Soln -) 1 amp NEB Q4H PRN PRN Reason: SHORT OF BREATH/WHEEZING Albuterol/Ipratropium (Duoneb -) 1 amp NEB RQID [facility] Last Admin: 12/28/17 20:36 Dose: 1 amp Digoxin (Lanoxin -) 0.125 mg PO DAILY [facility] Last Admin: 12/28/17 09:21 Dose: 0.125 mg Diltiazem HCl (Cardizem Cd -) 360 mg PO DAILY [facility] Last Admin: 12/28/17 09:21 Dose: 360 mg Donepezil HCl (Aricept -) 10 mg PO HS [facility] Last Admin: 12/27/17 21:43 Dose: 10 mg Losartan Potassium (Cozaar -) 25 mg PO DAILY@1800 [facility] Last Admin: 12/28/17 17:26 Dose: 25 mg Megestrol Acetate (Megace -) 40 mg PO DAILY [facility] Last Admin: 12/28/17 09:21 Dose: 40 mg Methimazole (Tapazole -) 10 mg PO AM [facility] Last Admin: 12/28/17 06:23 Dose: 10 mg Methylprednisolone Sodium Succinate (Solu-Medrol -) 40 mg IVPUSH Q8H-IV [facility] Last Admin: 12/28/17 17:26 Dose: 40 mg Montelukast Sodium (Singulair -) 10 mg PO HS [facility] Last Admin: 12/27/17 21:43 Dose: 10 mg Multivitamins (Total B With C -) 1 each PO DAILY [facility] Last Admin: 12/28/17 09:21 Dose: 1 each Ondansetron HCl (Zofran Injection) 4 mg IVPUSH Q6H PRN PRN Reason: NAUSEA AND/OR VOMITING Polyethylene Glycol (Miralax (For Daily Use) -) 17 gm PO DAILY [facility] Last Admin: 12/28/17 09:23 Dose: 17 gm Warfarin Sodium (Coumadin -) 5 mg PO DAILY@1800 [facility] Last Admin: 12/28/17 17:26 Dose: 5 mg - Objective Vital Signs: Vital Signs Temperature 98 F 12/28/17 17:16 Pulse Rate 75 12/28/17 17:16 Respiratory Rate 20 12/28/17 17:16 Blood Pressure 118/64 12/28/17 17:16 O2 Sat by Pulse Oximetry (%) 100 12/28/17 09:00 Labs: CBC, BMP 12/28/17 06:08 12/27/17 09:30 INR, PTT INR 2.53 (0.82-1.09) H D 12/28/17 06:08
[2017-12-28] MEDS: DONEPEZIL HCL 10 MG TABLET (FP) PO SCH (22:30)
[2017-12-28] MEDS: MONTELUKAST NA 10 MG TABLET PO SCH (22:30)
[2017-12-29] MEDS: methylPREDNISolone NA SUCC 40 MG/1 ML VIAL IVPUSH SCH ×3 (01:58→18:36)
[2017-12-29] MEDS: METHIMAZOLE 5 MG TABLET (FP) PO SCH (06:05)
[2017-12-29 07:50] LABS: INR 3.41 (0.82-1.09); PROTHROMBIN TIME (PATIENT) 38.5 SEC (9.98-11.88)
[2017-12-29] MEDS: ALBUTEROL SO4 2.5/IPRATROPIUM 0.5 INH SOL 3 ML VIAL.NEB. NEB SCH ×4 (08:13→20:50)
--- NOTE | 2017-12-29 10:03 | PN ---
Progress Note (short form) - Note Progress Note: PULMONARY States breathing better today after starting steroids. Still some shortness of breath, cough and wheezing. Last Vital Signs Temp Pulse Resp BP Pulse Ox 97.5 F L 68 20 118/65 100 12/29/17 06:00 12/29/17 06:00 12/29/17 06:00 12/29/17 06:00 12/28/17 21:00 Gen: NAD at rest Heart: RRR Lung: scattered rhonchi, wheezes Abd: soft, nontender Ext: no edema CBC, BMP 12/28/17 06:08 12/27/17 09:30 INR, PTT INR 3.41 (0.82-1.09) H D 12/29/17 05:35 Active Medications Acetaminophen (Tylenol -) 650 mg PO Q4H PRN PRN Reason: FEVER Last Admin: 12/28/17 09:22 Dose: 650 mg Acetaminophen (Ofirmev Injection -) 1,000 mg IVPB Q6H PRN PRN Reason: PAIN Last Admin: 12/25/17 15:20 Dose: 1,000 mg Albuterol Sulfate (Ventolin 0.083% Nebulizer Soln -) 1 amp NEB Q4H PRN PRN Reason: SHORT OF BREATH/WHEEZING Albuterol/Ipratropium (Duoneb -) 1 amp NEB RQID [facility] Last Admin: 12/29/17 08:13 Dose: 1 amp Digoxin (Lanoxin -) 0.125 mg PO DAILY [facility] Last Admin: 12/28/17 09:21 Dose: 0.125 mg Diltiazem HCl (Cardizem Cd -) 360 mg PO DAILY [facility] Last Admin: 12/28/17 09:21 Dose: 360 mg Donepezil HCl (Aricept -) 10 mg PO HS [facility] Last Admin: 12/28/17 22:30 Dose: 10 mg Losartan Potassium (Cozaar -) 25 mg PO DAILY@1800 [facility] Last Admin: 12/28/17 17:26 Dose: 25 mg Megestrol Acetate (Megace -) 40 mg PO DAILY [facility] Last Admin: 12/28/17 09:21 Dose: 40 mg Methimazole (Tapazole -) 10 mg PO AM [facility] Last Admin: 12/29/17 06:05 Dose: 10 mg Methylprednisolone Sodium Succinate (Solu-Medrol -) 40 mg IVPUSH Q8H-IV [facility] Last Admin: 12/29/17 01:58 Dose: 40 mg Montelukast Sodium (Singulair -) 10 mg PO HS [facility] Last Admin: 12/28/17 22:30 Dose: 10 mg Multivitamins (Total B With C -) 1 each PO DAILY [facility] Last Admin: 12/28/17 09:21 Dose: 1 each Ondansetron HCl (Zofran Injection) 4 mg IVPUSH Q6H PRN PRN Reason: NAUSEA AND/OR VOMITING Polyethylene Glycol (Miralax (For Daily Use) -) 17 gm PO DAILY [facility] Last Admin: 12/28/17 09:23 Dose: 17 gm Warfarin Sodium (Coumadin -) 5 mg PO DAILY@1800 [facility] Last Admin: 12/28/17 17:26 Dose: 5 mg A/P s/p Lap Cholecystectomy Acute COPD Exacerbation Atrial Fibrillation h/o bioMVR LV Systolic/Diastolic Dysfunction HTN Hyperthyroidism Dementia - continue medrol at current dose - can likely taper steroids in AM if continues to improve - inhaled bronchodilators - incentive spirometry - O2 as needed to keep SpO2 >90% - rate controlled - continue anticoagulation, target INR 2-3
[2017-12-29] MEDS: DIGOXIN 0.125 MG TABLET (FP) PO SCH (10:06)
[2017-12-29] MEDS: MEGESTROL ACETATE 40 MG TABLET PO SCH (10:06)
[2017-12-29] MEDS: VITAMIN B COMPLEX W/C COMBO TABLET (FP) PO SCH (10:06)
[2017-12-29] MEDS: POLYETHYLENE GLYCOL 3350 119 GM BTL PO SCH (10:07)
[2017-12-29] MEDS ORDERED: WARFARIN NA 2 MG TABLET (UD) PO SCH (14:34)
--- NOTE | 2017-12-29 14:39 | PN ---
Progress Note, Physician Chief Complaint: Still c/o BAL denies any chest pain - Current Medication List Current Medications: Active Medications Acetaminophen (Tylenol -) 650 mg PO Q4H PRN PRN Reason: FEVER Last Admin: 12/28/17 09:22 Dose: 650 mg Acetaminophen (Ofirmev Injection -) 1,000 mg IVPB Q6H PRN PRN Reason: PAIN Last Admin: 12/25/17 15:20 Dose: 1,000 mg Albuterol Sulfate (Ventolin 0.083% Nebulizer Soln -) 1 amp NEB Q4H PRN PRN Reason: SHORT OF BREATH/WHEEZING Albuterol/Ipratropium (Duoneb -) 1 amp NEB RQID [facility] Last Admin: 12/29/17 11:32 Dose: 1 amp Digoxin (Lanoxin -) 0.125 mg PO DAILY [facility] Last Admin: 12/29/17 10:06 Dose: 0.125 mg Diltiazem HCl (Cardizem Cd -) 360 mg PO DAILY [facility] Last Admin: 12/29/17 10:06 Dose: 360 mg Donepezil HCl (Aricept -) 10 mg PO HS [facility] Last Admin: 12/28/17 22:30 Dose: 10 mg Losartan Potassium (Cozaar -) 25 mg PO DAILY@1800 [facility] Last Admin: 12/28/17 17:26 Dose: 25 mg Megestrol Acetate (Megace -) 40 mg PO DAILY [facility] Last Admin: 12/29/17 10:06 Dose: 40 mg Methimazole (Tapazole -) 10 mg PO AM [facility] Last Admin: 12/29/17 06:05 Dose: 10 mg Methylprednisolone Sodium Succinate (Solu-Medrol -) 40 mg IVPUSH Q8H-IV [facility] Last Admin: 12/29/17 10:06 Dose: 40 mg Montelukast Sodium (Singulair -) 10 mg PO HS [facility] Last Admin: 12/28/17 22:30 Dose: 10 mg Multivitamins (Total B With C -) 1 each PO DAILY [facility] Last Admin: 12/29/17 10:06 Dose: 1 each Ondansetron HCl (Zofran Injection) 4 mg IVPUSH Q6H PRN PRN Reason: NAUSEA AND/OR VOMITING Polyethylene Glycol (Miralax (For Daily Use) -) 17 gm PO DAILY [facility] Last Admin: 12/29/17 10:07 Dose: 17 gm Warfarin Sodium (Coumadin -) 4 mg PO DAILY@1800 [facility] Last Admin: 12/28/17 17:26 Dose: 5 mg - Objective Vital Signs: Vital Signs Temperature 97.5 F L 12/29/17 06:00 Pulse Rate 82 12/29/17 10:06 Respiratory Rate 20 12/29/17 06:00 Blood Pressure 118/65 12/29/17 06:00 O2 Sat by Pulse Oximetry (%) 100 12/29/17 09:00 Elderly F looks exhaused denies any chest pain HEENT: Mm moist, anemia NECK: No JVd No Bruit CHEST: Minimal wheezes ABD: obese non tender Bs + EXT: Trace edema feet CHEMIST INSTRUMENTATION: AOx3 non focal Labs: CBC, BMP 12/28/17 06:08 12/27/17 09:30 INR, PTT INR 3.41 (0.82-1.09) H D 12/29/17 05:35 Problem List - Problems (1) Acute asthma exacerbation Assessment/Plan: Evaluted by Pulmonary consult on IV steroids and Nebs improving Code(s): J45.901 - UNSPECIFIED ASTHMA WITH (ACUTE) EXACERBATION Qualifiers: (2) Chronic systolic (congestive) heart failure Assessment/Plan: Mild Systiolic HF evaluated by Cardiology consult cont Current management Code(s): I50.22 - CHRONIC SYSTOLIC (CONGESTIVE) HEART FAILURE (3) Mitral valve replaced Assessment/Plan: On AC INR 3.4 decrese Coumadin to u4 mg F/U INR in am Code(s): Z95.2 - PRESENCE OF PROSTHETIC HEART VALVE (4) Atrial fibrillation Assessment/Plan: Rate controlled on AC INR 3.41 decrese Coumadin to 4 mg at bed time Code(s): I48.91 - UNSPECIFIED ATRIAL FIBRILLATION Qualifiers: Atrial fibrillation type: permanent Qualified Code(s): I48.2 - Chronic atrial fibrillation (5) Hyperthyroidism Assessment/Plan: On Methimazole Code(s): E05.90 - THYROTOXICOSIS, UNSP WITHOUT THYROTOXIC CRISIS OR STORM
--- NOTE | 2017-12-29 15:13 | PATH ---
Surgical Pathology Report Patient Name: NILES PITT Med. Rec. #: [id number] /Age/Gender: 1940 (Age: 77) / F Account: [id number] Location: [facility] MED/SURG Taken: 12/25/2017 Received: 12/26/2017 Reported: 12/29/2017 Physicians: Jennifer Yeung M.D. Specimen(s) Received GALLBLADDER Clinical History Biliary dyskinesia Final Diagnosis GALLBLADDER, LAPAROSCOPIC CHOLECYSTECTOMY: CHRONIC CHOLECYSTITIS AND CHOLELITHIASIS. Electronically Signed Danna Cota M.D. Gross Description Received in formalin, labeled "gallbladder," is an 8.5 x 2.5 x 2.5 cm. gallbladder with a 0.2 cm. in length portion of cystic duct attached. The outer surface is gutierrez green and varies from smooth to shaggy. The lumen contains green, tenacious bile as well as a 0.7 cm black, irregular cholelith. The mucosa is green and velvety. The wall of the gallbladder averages 0.1 cm. in thickness. [employer] sections are submitted in one cassette. /12/26/2017 [facility]12/26/2017
--- NOTE | 2017-12-29 15:42 | PN ---
Progress Note, Physician History of Present Illness: seen and examined today in nad. no overnight events. no new complaints. - Current Medication List Current Medications: Active Medications Acetaminophen (Tylenol -) 650 mg PO Q4H PRN PRN Reason: FEVER Last Admin: 12/28/17 09:22 Dose: 650 mg Acetaminophen (Ofirmev Injection -) 1,000 mg IVPB Q6H PRN PRN Reason: PAIN Last Admin: 12/25/17 15:20 Dose: 1,000 mg Albuterol Sulfate (Ventolin 0.083% Nebulizer Soln -) 1 amp NEB Q4H PRN PRN Reason: SHORT OF BREATH/WHEEZING Albuterol/Ipratropium (Duoneb -) 1 amp NEB RQID [facility] Last Admin: 12/29/17 11:32 Dose: 1 amp Digoxin (Lanoxin -) 0.125 mg PO DAILY [facility] Last Admin: 12/29/17 10:06 Dose: 0.125 mg Diltiazem HCl (Cardizem Cd -) 360 mg PO DAILY [facility] Last Admin: 12/29/17 10:06 Dose: 360 mg Donepezil HCl (Aricept -) 10 mg PO HS [facility] Last Admin: 12/28/17 22:30 Dose: 10 mg Losartan Potassium (Cozaar -) 25 mg PO DAILY@1800 [facility] Last Admin: 12/28/17 17:26 Dose: 25 mg Megestrol Acetate (Megace -) 40 mg PO DAILY [facility] Last Admin: 12/29/17 10:06 Dose: 40 mg Methimazole (Tapazole -) 10 mg PO AM [facility] Last Admin: 12/29/17 06:05 Dose: 10 mg Methylprednisolone Sodium Succinate (Solu-Medrol -) 40 mg IVPUSH Q8H-IV [facility] Last Admin: 12/29/17 10:06 Dose: 40 mg Montelukast Sodium (Singulair -) 10 mg PO HS [facility] Last Admin: 12/28/17 22:30 Dose: 10 mg Multivitamins (Total B With C -) 1 each PO DAILY [facility] Last Admin: 12/29/17 10:06 Dose: 1 each Ondansetron HCl (Zofran Injection) 4 mg IVPUSH Q6H PRN PRN Reason: NAUSEA AND/OR VOMITING Polyethylene Glycol (Miralax (For Daily Use) -) 17 gm PO DAILY [facility] Last Admin: 12/29/17 10:07 Dose: 17 gm Warfarin Sodium (Coumadin -) 4 mg PO DAILY@1800 [facility] - Objective Vital Signs: Vital Signs Temperature 97.5 F L 12/29/17 06:00 Pulse Rate 82 12/29/17 10:06 Respiratory Rate 20 12/29/17 06:00 Blood Pressure 118/65 12/29/17 06:00 O2 Sat by Pulse Oximetry (%) 100 12/29/17 09:00 Constitutional: Yes: No Distress, Calm Eyes: Yes: Conjunctiva Clear, EOM Intact HENT: Yes: Atraumatic, Normocephalic Neck: Yes: Supple, Trachea Midline Cardiovascular: Yes: Pulse Irregular, Murmur, S1, S2. No: Bradycardia, Tachycardia, Bruit, JVD, Gallop, Rub, S3, S4, Varicosities Respiratory: Yes: Regular, Wheezes. No: Rales, Rhonchi Gastrointestinal: Yes: Normal Bowel Sounds. 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 COPD Abdominal wall hematoma s/p fall Anemia, Thrombocytopenia, recent prolonged admission for AE COPD, recently admitted for presumed syncope, also recently admitted with possible PNA, nausea, vomiting, diarrhea, confusion and now admitted with abdominal pain, fever, possible viral illness as well as cholelithiasis s/p lap nasrin Post op cardiac evaluation: -s/p lap cholecystectomy tolerated well from a cardiac standpoint -mild wheezing at baseline -CXR from yesterday showed clear lungs AFib-HR adequately controlled currently, INR subtherapeutic -cont cardizem and digoxin for rate control -dose warfarin to maintain INR 2-3, supratherapeutic today -caution to maintain therapeutic window with INR and PTT as pt did have issues with a hematoma and anemia on prior admission Bio MVR-stable -outpatient f/up HTN-overall Adequately controlled, low normal today -cont current medical regimen for now
[2017-12-29] MEDS: LOSARTAN POTASSIUM 25 MG TABLET PO SCH (18:36)
[2017-12-29] MEDS: MONTELUKAST NA 10 MG TABLET PO SCH (22:10)
[2017-12-29] MEDS: DONEPEZIL HCL 10 MG TABLET (FP) PO SCH (22:10)
--- NOTE | 2017-12-29 22:31 | PN ---
Progress Note (short form) - Note Progress Note: Patient seen and examined denies any complaints Last Vital Signs Temp Pulse Resp BP Pulse Ox 98.5 F 81 20 138/91 100 12/29/17 22:00 12/29/17 22:00 12/29/17 22:00 12/29/17 22:00 12/29/17 21:00 Cor: RSR, No murmurs, No gallops Lungs: Clear to P&A Abd: Soft, Normal bowel sounds, No organomegaly Ext:No significant edema Abnormal Lab Results 12/29/17 05:35 PT with INR 38.50 H INR 3.41 H D Active Medications Generic Name Dose Route Start Last Admin Trade Name Freq PRN Reason Stop Dose Admin Acetaminophen 650 mg 12/25/17 15:39 12/28/17 09:22 Tylenol - PO 650 mg Q4H PRN Administration FEVER Acetaminophen 1,000 mg 12/25/17 15:39 12/25/17 15:20 Ofirmev Injection - IVPB 1,000 mg Q6H PRN Administration PAIN Albuterol Sulfate 1 amp 12/28/17 08:34 Ventolin 0.083% Nebulizer Soln - NEB Q4H PRN SHORT OF BREATH/WHEEZING Albuterol/Ipratropium 1 amp 12/28/17 12:00 12/29/17 20:50 Duoneb - NEB 1 amp RQID [facility]ESSING Administration Digoxin 0.125 mg 12/26/17 10:00 12/29/17 10:06 Lanoxin - PO 0.125 mg DAILY BLESS[facility] Administration Diltiazem HCl 360 mg 12/26/17 10:00 12/29/17 10:06 Cardizem Cd - PO 360 mg DAILY BLESS[facility] Administration Donepezil HCl 10 mg 12/25/17 22:00 12/29/17 22:10 Aricept - PO 10 mg HS BLESSING Administration Losartan Potassium 25 mg 12/25/17 18:00 12/29/17 18:36 Cozaar - PO 25 mg DAILY@1800 BLESSING Administration Megestrol Acetate 40 mg 12/26/17 10:00 12/29/17 10:06 Megace - PO 40 mg DAILY BLESSING Administration Methimazole 10 mg 12/26/17 07:00 12/29/17 06:05 Tapazole - PO 10 mg AM BLESSING Administration Methylprednisolone Sodium Succinate 40 mg 12/28/17 10:30 12/29/17 18:36 Solu-Medrol - IVPUSH 40 mg Q8H-IV [facility]ESSING Administration Montelukast Sodium 10 mg 12/25/17 22:00 12/29/17 22:10 Singulair - PO 10 mg HS BLESSING Administration Multivitamins 1 each 12/26/17 10:00 12/29/17 10:06 Total B With C - PO 1 each DAILY BLESSING Administration Ondansetron HCl 4 mg 12/25/17 15:39 Zofran Injection IVPUSH Q6H PRN NAUSEA AND/OR VOMITING Polyethylene Glycol 17 gm 12/26/17 10:00 12/29/17 10:07 Miralax (For Daily Use) - PO 17 gm DAILY BLESSING Administration Warfarin Sodium 4 mg 12/29/17 14:34 12/29/17 18:36 Coumadin - PO 4 mg DAILY@1800 BLESSING Administration A/P Afib/bio-MVR/DVT bridged from heparin to coumadin --coumadin on hold---INR supratherapeutic
[2017-12-30] MEDS: methylPREDNISolone NA SUCC 40 MG/1 ML VIAL IVPUSH SCH ×2 (01:42→13:33)
[2017-12-30] MEDS: METHIMAZOLE 5 MG TABLET (FP) PO SCH (06:36)
[2017-12-30 07:45] LABS: BLOOD UREA NITROGEN 25 mg/dL (7-18); CHLORIDE 106 mmol/L (98-107); GLUCOSE,RANDOM 256 mg/dL (74-106); POTASSIUM 4.8 mmol/L (3.5-5.1); SODIUM 141 mmol/L (136-145)
[2017-12-30 07:47] LABS: ANION GAP 9 (8-16); CALCIUM 8.9 mg/dL (8.5-10.1); CO2 26 mmol/L (21-32); CREATININE 0.7 mg/dL (0.55-1.02)
[2017-12-30 07:59] LABS: HEMATOCRIT 33.4 % (32.4-45.2); LYMPH % 7.6 % (8-40); MCH 28.8 pg (25.7-33.7); MCHC 32.9 g/dl (32.0-36.0); MEAN CELL VOLUME 87.7 fl (80-96); MEAN PLT VOLUME 9.1 fl (7.5-11.1); MONO % 4.2 % (3.8-10.2); NEUT % 88.2 % (42.8-82.8); PLATELET COUNT 229 K/MM3 (134-434); RBC 3.81 M/mm3 (3.60-5.2); WHITE BLOOD COUNT 9.2 K/mm3 (4.0-10.0)
[2017-12-30 08:05] LABS: INR 3.62 (0.82-1.09); PROTHROMBIN TIME (PATIENT) 40.9 SEC (9.98-11.88)
[2017-12-30] MEDS: ALBUTEROL SO4 2.5/IPRATROPIUM 0.5 INH SOL 3 ML VIAL.NEB. NEB SCH ×4 (08:59→21:20)
--- NOTE | 2017-12-30 10:01 | PN ---
Progress Note, Physician Chief Complaint: no distress - Current Medication List Current Medications: Active Medications Acetaminophen (Tylenol -) 650 mg PO Q4H PRN PRN Reason: FEVER Last Admin: 12/28/17 09:22 Dose: 650 mg Acetaminophen (Ofirmev Injection -) 1,000 mg IVPB Q6H PRN PRN Reason: PAIN Last Admin: 12/25/17 15:20 Dose: 1,000 mg Albuterol Sulfate (Ventolin 0.083% Nebulizer Soln -) 1 amp NEB Q4H PRN PRN Reason: SHORT OF BREATH/WHEEZING Albuterol/Ipratropium (Duoneb -) 1 amp NEB RQID [facility] Last Admin: 12/30/17 08:59 Dose: Not Given Digoxin (Lanoxin -) 0.125 mg PO DAILY [facility] Last Admin: 12/29/17 10:06 Dose: 0.125 mg Diltiazem HCl (Cardizem Cd -) 360 mg PO DAILY [facility] Last Admin: 12/29/17 10:06 Dose: 360 mg Donepezil HCl (Aricept -) 10 mg PO HS [facility] Last Admin: 12/29/17 22:10 Dose: 10 mg Losartan Potassium (Cozaar -) 25 mg PO DAILY@1800 [facility] Last Admin: 12/29/17 18:36 Dose: 25 mg Megestrol Acetate (Megace -) 40 mg PO DAILY [facility] Last Admin: 12/29/17 10:06 Dose: 40 mg Methimazole (Tapazole -) 10 mg PO AM [facility] Last Admin: 12/30/17 06:36 Dose: 10 mg Methylprednisolone Sodium Succinate (Solu-Medrol -) 40 mg IVPUSH Q8H-IV [facility] Last Admin: 12/30/17 01:42 Dose: 40 mg Montelukast Sodium (Singulair -) 10 mg PO HS [facility] Last Admin: 12/29/17 22:10 Dose: 10 mg Multivitamins (Total B With C -) 1 each PO DAILY [facility] Last Admin: 12/29/17 10:06 Dose: 1 each Ondansetron HCl (Zofran Injection) 4 mg IVPUSH Q6H PRN PRN Reason: NAUSEA AND/OR VOMITING Polyethylene Glycol (Miralax (For Daily Use) -) 17 gm PO DAILY [facility] Last Admin: 12/29/17 10:07 Dose: 17 gm Warfarin Sodium (Coumadin -) 4 mg PO DAILY@1800 [facility] Last Admin: 12/29/17 18:36 Dose: 4 mg - Objective Vital Signs: Vital Signs Temperature 98 F 12/30/17 06:00 Pulse Rate 86 12/30/17 06:00 Respiratory Rate 20 12/30/17 06:00 Blood Pressure 151/78 12/30/17 06:00 O2 Sat by Pulse Oximetry (%) 100 12/29/17 21:00 Constitutional: Yes: Calm Cardiovascular: Yes: Pulse Irregular Respiratory: Yes: CTA Bilaterally, Other (no active wheezing) Gastrointestinal: Yes: Soft, Abdomen, Obese Edema: No Neurological: Yes: Alert, Oriented Labs: CBC, BMP 12/30/17 05:30 12/30/17 05:30 INR, PTT INR 3.62 (0.82-1.09) H 12/30/17 05:30 Laboratory Tests 12/30/17 12/30/17 12/30/17 05:30 05:30 05:30 WBC 9.2 D Hgb 11.0 Plt Count 229 D INR 3.62 H Sodium 141 Potassium 4.8 Creatinine 0.7 Assessment/Plan Assessment/Plan 77 year old woman with a history of Bio MVR 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 COPD Abdominal wall hematoma s/p fall Anemia, Thrombocytopenia, recent prolonged admission for AE COPD, recently admitted for presumed syncope, also recently admitted with possible PNA, nausea, vomiting, diarrhea, confusion and now admitted with abdominal pain, fever, possible viral illness as well as cholelithiasis s/p lap nasrin Post op cardiac evaluation: -s/p lap cholecystectomy tolerated well from a cardiac standpoint AFib-HR adequately controlled currently, INR subtherapeutic -cont cardizem and digoxin for rate control -dose warfarin to maintain INR 2-3, supratherapeutic today Bio MVR-stable -outpatient f/up HTN-overall Adequately controlled, low normal today -cont current medical regimen for now
--- NOTE | 2017-12-30 10:10 | PN ---
Progress Note (short form) - Note Progress Note: PULMONARY Breathing continues to improve. Still some shortness of breath, cough and wheezing. Last Vital Signs Temp Pulse Resp BP Pulse Ox 98 F 86 20 151/78 100 12/30/17 06:00 12/30/17 06:00 12/30/17 06:00 12/30/17 06:00 12/29/17 21:00 Gen: NAD at rest Heart: RRR Lung: less rhonchi, wheezes Abd: soft, nontender Ext: no edema CBC, BMP 12/30/17 05:30 12/30/17 05:30 INR, PTT INR 3.62 (0.82-1.09) H 12/30/17 05:30 Active Medications Acetaminophen (Tylenol -) 650 mg PO Q4H PRN PRN Reason: FEVER Last Admin: 12/28/17 09:22 Dose: 650 mg Acetaminophen (Ofirmev Injection -) 1,000 mg IVPB Q6H PRN PRN Reason: PAIN Last Admin: 12/25/17 15:20 Dose: 1,000 mg Albuterol Sulfate (Ventolin 0.083% Nebulizer Soln -) 1 amp NEB Q4H PRN PRN Reason: SHORT OF BREATH/WHEEZING Albuterol/Ipratropium (Duoneb -) 1 amp NEB RQID [facility] Last Admin: 12/30/17 08:59 Dose: Not Given Digoxin (Lanoxin -) 0.125 mg PO DAILY [facility] Last Admin: 12/29/17 10:06 Dose: 0.125 mg Diltiazem HCl (Cardizem Cd -) 360 mg PO DAILY [facility] Last Admin: 12/29/17 10:06 Dose: 360 mg Donepezil HCl (Aricept -) 10 mg PO HS [facility] Last Admin: 12/29/17 22:10 Dose: 10 mg Losartan Potassium (Cozaar -) 25 mg PO DAILY@1800 [facility] Last Admin: 12/29/17 18:36 Dose: 25 mg Megestrol Acetate (Megace -) 40 mg PO DAILY [facility] Last Admin: 12/29/17 10:06 Dose: 40 mg Methimazole (Tapazole -) 10 mg PO AM [facility] Last Admin: 12/30/17 06:36 Dose: 10 mg Methylprednisolone Sodium Succinate (Solu-Medrol -) 40 mg IVPUSH Q8H-IV [facility] Last Admin: 12/30/17 01:42 Dose: 40 mg Montelukast Sodium (Singulair -) 10 mg PO HS [facility] Last Admin: 12/29/17 22:10 Dose: 10 mg Multivitamins (Total B With C -) 1 each PO DAILY [facility] Last Admin: 12/29/17 10:06 Dose: 1 each Ondansetron HCl (Zofran Injection) 4 mg IVPUSH Q6H PRN PRN Reason: NAUSEA AND/OR VOMITING Polyethylene Glycol (Miralax (For Daily Use) -) 17 gm PO DAILY [facility] Last Admin: 12/29/17 10:07 Dose: 17 gm A/P s/p Lap Cholecystectomy Acute COPD Exacerbation Atrial Fibrillation h/o bioMVR LV Systolic/Diastolic Dysfunction HTN Hyperthyroidism Dementia - will decrease medrol to q12h, anticipate changing to PO prednisone 40mg daily in AM if continues to improve - inhaled bronchodilators - incentive spirometry - O2 as needed to keep SpO2 >90% - rate controlled - continue anticoagulation, target INR 2-3
[2017-12-30] MEDS ORDERED: methylPREDNISolone NA SUCC 40 MG/1 ML VIAL IVPUSH SCH (10:15)
--- NOTE | 2017-12-30 10:27 | PN ---
Progress Note, Physician Chief Complaint: Weakness, RUQ abdominal pain History of Present Illness: NAD, sitting in chair INR elevated, warfarin on hold no pain/nausea/vomiting at this time - Current Medication List Current Medications: Active Medications Acetaminophen (Tylenol -) 650 mg PO Q4H PRN PRN Reason: FEVER Last Admin: 12/28/17 09:22 Dose: 650 mg Acetaminophen (Ofirmev Injection -) 1,000 mg IVPB Q6H PRN PRN Reason: PAIN Last Admin: 12/25/17 15:20 Dose: 1,000 mg Albuterol Sulfate (Ventolin 0.083% Nebulizer Soln -) 1 amp NEB Q4H PRN PRN Reason: SHORT OF BREATH/WHEEZING Albuterol/Ipratropium (Duoneb -) 1 amp NEB RQID [facility] Last Admin: 12/30/17 08:59 Dose: Not Given Digoxin (Lanoxin -) 0.125 mg PO DAILY [facility] Last Admin: 12/29/17 10:06 Dose: 0.125 mg Diltiazem HCl (Cardizem Cd -) 360 mg PO DAILY [facility] Last Admin: 12/29/17 10:06 Dose: 360 mg Donepezil HCl (Aricept -) 10 mg PO HS [facility] Last Admin: 12/29/17 22:10 Dose: 10 mg Losartan Potassium (Cozaar -) 25 mg PO DAILY@1800 [facility] Last Admin: 12/29/17 18:36 Dose: 25 mg Megestrol Acetate (Megace -) 40 mg PO DAILY [facility] Last Admin: 12/29/17 10:06 Dose: 40 mg Methimazole (Tapazole -) 10 mg PO AM [facility] Last Admin: 12/30/17 06:36 Dose: 10 mg Methylprednisolone Sodium Succinate (Solu-Medrol -) 40 mg IVPUSH Q12H [facility] Montelukast Sodium (Singulair -) 10 mg PO HS [facility] Last Admin: 12/29/17 22:10 Dose: 10 mg Multivitamins (Total B With C -) 1 each PO DAILY [facility] Last Admin: 12/29/17 10:06 Dose: 1 each Ondansetron HCl (Zofran Injection) 4 mg IVPUSH Q6H PRN PRN Reason: NAUSEA AND/OR VOMITING Polyethylene Glycol (Miralax (For Daily Use) -) 17 gm PO DAILY [facility] Last Admin: 12/29/17 10:07 Dose: 17 gm - Objective Vital Signs: Vital Signs Temperature 98 F 12/30/17 06:00 Pulse Rate 86 12/30/17 06:00 Respiratory Rate 20 12/30/17 06:00 Blood Pressure 151/78 12/30/17 06:00 O2 Sat by Pulse Oximetry (%) 100 12/29/17 21:00 Constitutional: Yes: Well Nourished, No Distress, Calm Cardiovascular: Yes: Regular Rate and Rhythm Respiratory: Yes: Regular Gastrointestinal: Yes: Normal Bowel Sounds, Soft Musculoskeletal: Yes: WNL Extremities: Yes: WNL Edema: No Peripheral Pulses WNL: Yes Neurological: Yes: Alert, Pre-Existing Deficit Psychiatric: Yes: Alert Labs: CBC, BMP 12/30/17 05:30 12/30/17 05:30 INR, PTT INR 3.62 (0.82-1.09) H 12/30/17 05:30 Problem List - Problems (1) Abdominal pain Assessment/Plan: -resolved -s/p lap choley Code(s): R10.9 - UNSPECIFIED ABDOMINAL PAIN (2) COPD (chronic obstructive pulmonary disease) Assessment/Plan: -nasal o2 -bronchodilators -tapering dose of steroids -seen by Pulmonary consult Code(s): J44.9 - CHRONIC OBSTRUCTIVE PULMONARY DISEASE, UNSPECIFIED (3) Atrial fibrillation with rapid ventricular response Code(s): I48.91 - UNSPECIFIED ATRIAL FIBRILLATION (4) DVT (deep venous thrombosis) Code(s): I82.409 - ACUTE EMBOLISM AND THOMBOS UNSP DEEP VN UNSP LOWER EXTREMITY Qualifiers: DVT location: non-extremity vein Chronicity: unspecified Qualified Code(s ): I82.90 - Acute embolism and thrombosis of unspecified vein (5) H/O heart valve replacement with bioprosthetic valve Code(s): Z95.3 - PRESENCE OF XENOGENIC HEART VALVE (6) Pulmonary embolism Code(s): I26.99 - OTHER PULMONARY EMBOLISM WITHOUT ACUTE COR PULMONALE (7) Altered mental status Assessment/Plan: -neurology consult appreciated -Aricept increased to 10 mg po daily Code(s): R41.82 - ALTERED MENTAL STATUS, UNSPECIFIED Assessment/Plan see problem list Hold warfarin, therapeutic INR range 2-3, monitor closely
[2017-12-30] MEDS ORDERED: PT OWN MED DRAWER 7, Y5N ONE ×2 (10:42→22:05)
[2017-12-30] MEDS: DIGOXIN 0.125 MG TABLET (FP) PO SCH (10:47)
[2017-12-30] MEDS: MEGESTROL ACETATE 40 MG TABLET PO SCH (10:48)
[2017-12-30] MEDS: POLYETHYLENE GLYCOL 3350 119 GM BTL PO SCH (10:49)
[2017-12-30] MEDS: VITAMIN B COMPLEX W/C COMBO TABLET (FP) PO SCH (10:52)
--- NOTE | 2017-12-30 15:48 | PN ---
Progress Note (short form) - Note Progress Note: Pt seen and examined. s/p Lap Debbie. feels OK, sore in the abdomen, O/E: Constitutional: Yes: Well Nourished, No Distress, Calm Cardiovascular: Yes: Pulse Irregular Respiratory: Yes: Regular, clear Gastrointestinal: Yes: Normal Bowel Sounds, Soft Musculoskeletal: Yes: Muscle Weakness Extremities: Yes: WNL Edema: No Peripheral Pulses WNL: Yes Neurological: Yes: Alert, Pre-Existing Deficit Psychiatric: Yes: Alert Last Vital Signs Temp Pulse Resp BP Pulse Ox 98 F 67 20 151/78 100 12/30/17 06:00 12/30/17 10:47 12/30/17 06:00 12/30/17 06:00 12/29/17 21:00 CBC, BMP 12/30/17 05:30 12/30/17 05:30 Current Medications Generic Name Dose Route Start Last Admin Trade Name Freq PRN Reason Stop Dose Admin Acetaminophen 650 mg 12/25/17 15:39 12/28/17 09:22 Tylenol - PO 650 mg Q4H PRN Administration FEVER Acetaminophen 1,000 mg 12/25/17 15:39 12/25/17 15:20 Ofirmev Injection - IVPB 1,000 mg Q6H PRN Administration PAIN Albuterol Sulfate 1 amp 12/28/17 08:34 Ventolin 0.083% Nebulizer Soln - NEB Q4H PRN SHORT OF BREATH/WHEEZING Albuterol/Ipratropium 1 amp 12/28/17 12:00 12/30/17 11:37 Duoneb - NEB 1 amp RQID [facility] Administration Digoxin 0.125 mg 12/26/17 10:00 12/30/17 10:47 Lanoxin - PO 0.125 mg DAILY [facility] Administration Diltiazem HCl 360 mg 12/26/17 10:00 12/30/17 10:48 Cardizem Cd - PO 360 mg DAILY [facility] Administration Donepezil HCl 10 mg 12/25/17 22:00 12/29/17 22:10 Aricept - PO 10 mg HS [facility] Administration Losartan Potassium 25 mg 12/25/17 18:00 12/29/17 18:36 Cozaar - PO 25 mg DAILY@1800 [facility] Administration Megestrol Acetate 40 mg 12/26/17 10:00 12/30/17 10:48 Megace - PO 40 mg DAILY [facility] Administration Methimazole 10 mg 12/26/17 07:00 12/30/17 06:36 Tapazole - PO 10 mg AM [facility] Administration Montelukast Sodium 10 mg 12/25/17 22:00 12/29/17 22:10 Singulair - PO 10 mg HS [facility] Administration Multivitamins 1 each 12/26/17 10:00 12/30/17 10:52 Total B With C - PO 1 each DAILY [facility] Administration Ondansetron HCl 4 mg 12/25/17 15:39 Zofran Injection IVPUSH Q6H PRN NAUSEA AND/OR VOMITING Polyethylene Glycol 17 gm 12/26/17 10:00 12/30/17 10:49 Miralax (For Daily Use) - PO 17 gm DAILY [facility] Administration Prednisone 40 mg 12/30/17 22:00 Deltasone - PO BID BLESSING Afib/bio-MVR/DVT: coumadin on hold c/w close INR monitoring. encourage PO intake. rest per primary
[2017-12-30] MEDS: LOSARTAN POTASSIUM 25 MG TABLET PO SCH (17:42)
[2017-12-30] MEDS: MONTELUKAST NA 10 MG TABLET PO SCH (21:01)
[2017-12-30] MEDS: predniSONE 20 MG TABLET (UD) PO SCH (21:01)
[2017-12-30] MEDS: DONEPEZIL HCL 10 MG TABLET (FP) PO SCH (21:02)
[2017-12-31] MEDS: METHIMAZOLE 5 MG TABLET (FP) PO SCH (06:40)
[2017-12-31] MEDS: ALBUTEROL SO4 2.5/IPRATROPIUM 0.5 INH SOL 3 ML VIAL.NEB. NEB SCH ×4 (07:15→20:41)
--- NOTE | 2017-12-31 08:51 | PN ---
Progress Note, Physician Chief Complaint: Weakness, RUQ abdominal pain History of Present Illness: NAD, sitting in chair INR elevated, warfarin on hold no pain/nausea/vomiting at this time Awaiting INR from today - Current Medication List Current Medications: Active Medications Acetaminophen (Tylenol -) 650 mg PO Q4H PRN PRN Reason: FEVER Last Admin: 12/28/17 09:22 Dose: 650 mg Acetaminophen (Ofirmev Injection -) 1,000 mg IVPB Q6H PRN PRN Reason: PAIN Last Admin: 12/25/17 15:20 Dose: 1,000 mg Albuterol Sulfate (Ventolin 0.083% Nebulizer Soln -) 1 amp NEB Q4H PRN PRN Reason: SHORT OF BREATH/WHEEZING Albuterol/Ipratropium (Duoneb -) 1 amp NEB RQID [facility] Last Admin: 12/30/17 21:20 Dose: 1 amp Digoxin (Lanoxin -) 0.125 mg PO DAILY [facility] Last Admin: 12/30/17 10:47 Dose: 0.125 mg Diltiazem HCl (Cardizem Cd -) 360 mg PO DAILY [facility] Last Admin: 12/30/17 10:48 Dose: 360 mg Donepezil HCl (Aricept -) 10 mg PO HS [facility] Last Admin: 12/30/17 21:02 Dose: 10 mg Losartan Potassium (Cozaar -) 25 mg PO DAILY@1800 [facility] Last Admin: 12/30/17 17:42 Dose: 25 mg Megestrol Acetate (Megace -) 40 mg PO DAILY [facility] Last Admin: 12/30/17 10:48 Dose: 40 mg Methimazole (Tapazole -) 10 mg PO AM [facility] Last Admin: 12/31/17 06:40 Dose: 10 mg Montelukast Sodium (Singulair -) 10 mg PO HS [facility] Last Admin: 12/30/17 21:01 Dose: 10 mg Multivitamins (Total B With C -) 1 each PO DAILY [facility] Last Admin: 12/30/17 10:52 Dose: 1 each Ondansetron HCl (Zofran Injection) 4 mg IVPUSH Q6H PRN PRN Reason: NAUSEA AND/OR VOMITING Polyethylene Glycol (Miralax (For Daily Use) -) 17 gm PO DAILY [facility] Last Admin: 12/30/17 10:49 Dose: 17 gm Prednisone (Deltasone -) 40 mg PO BID [facility] Last Admin: 12/30/17 21:01 Dose: 40 mg - Objective Vital Signs: Vital Signs Temperature 97.6 F 12/31/17 06:00 Pulse Rate 83 12/31/17 06:00 Respiratory Rate 20 12/31/17 06:00 Blood Pressure 121/96 12/31/17 06:00 O2 Sat by Pulse Oximetry (%) 96 12/30/17 21:00 Constitutional: Yes: Well Nourished, No Distress, Calm Cardiovascular: Yes: Regular Rate and Rhythm Respiratory: Yes: Regular Gastrointestinal: Yes: Normal Bowel Sounds, Soft Musculoskeletal: Yes: WNL Extremities: Yes: WNL Edema: No Peripheral Pulses WNL: Yes Wound/Incision: Yes: Dressing Dry and Intact Neurological: Yes: Alert, Pre-Existing Deficit Psychiatric: Yes: Alert Labs: CBC, BMP 12/30/17 05:30 12/30/17 05:30 INR, PTT INR 3.62 (0.82-1.09) H 12/30/17 05:30 Problem List - Problems (1) Abdominal pain Assessment/Plan: -resolved -s/p lap choley Code(s): R10.9 - UNSPECIFIED ABDOMINAL PAIN (2) COPD (chronic obstructive pulmonary disease) Assessment/Plan: -nasal o2 -bronchodilators -tapering dose of steroids -seen by Pulmonary consult Code(s): J44.9 - CHRONIC OBSTRUCTIVE PULMONARY DISEASE, UNSPECIFIED (3) Atrial fibrillation with rapid ventricular response Code(s): I48.91 - UNSPECIFIED ATRIAL FIBRILLATION (4) DVT (deep venous thrombosis) Code(s): I82.409 - ACUTE EMBOLISM AND THOMBOS UNSP DEEP VN UNSP LOWER EXTREMITY Qualifiers: DVT location: non-extremity vein Chronicity: unspecified Qualified Code(s ): I82.90 - Acute embolism and thrombosis of unspecified vein (5) H/O heart valve replacement with bioprosthetic valve Code(s): Z95.3 - PRESENCE OF XENOGENIC HEART VALVE (6) Pulmonary embolism Code(s): I26.99 - OTHER PULMONARY EMBOLISM WITHOUT ACUTE COR PULMONALE (7) Altered mental status Assessment/Plan: -neurology consult appreciated -Aricept increased to 10 mg po daily Code(s): R41.82 - ALTERED MENTAL STATUS, UNSPECIFIED (8) Elevated INR Assessment/Plan: -repeat INR pending -warfarin on hold Code(s): R79.1 - ABNORMAL COAGULATION PROFILE Assessment/Plan see problem list d/c home with [facility]
--- NOTE | 2017-12-31 08:55 | DS ---
Physical Examination Vital Signs: Vital Signs Temperature 97.6 F 12/31/17 06:00 Pulse Rate 83 12/31/17 06:00 Respiratory Rate 20 12/31/17 06:00 Blood Pressure 121/96 12/31/17 06:00 O2 Sat by Pulse Oximetry (%) 96 12/30/17 21:00 Constitutional: Yes: Well Nourished, No Distress, Calm Cardiovascular: Yes: Pulse Irregular Respiratory: Yes: Regular Gastrointestinal: Yes: Normal Bowel Sounds, Soft Musculoskeletal: Yes: WNL Extremities: Yes: WNL Edema: No Peripheral Pulses WNL: Yes Wound/Incision: Yes: Dressing Dry and Intact Neurological: Yes: Alert, Pre-Existing Deficit Psychiatric: Yes: Alert Labs: CBC, BMP 12/30/17 05:30 12/30/17 05:30 Discharge Summary Reason For Visit: WEAKNESS Current Active Problems Abdominal pain (Acute) Abdominal pain (Acute) Cholelithiasis (Acute) Cholelithiasis (Acute) Chronic cholecystitis (Acute) Chronic systolic (congestive) heart failure (Acute) Constipation (Acute) Dyskinesia of gallbladder (Acute) Elevated INR (Acute) Hyperlipidemia (Acute) Leukocytosis (Acute) Mitral valve replaced (Acute) Poor appetite (Acute) Weakness (Acute) Hospital Course: 77 y/o F with PMH dementia, afib (on coumadin; s/p valve replacement), CHF, HTN , fatty liver disease, hypothyroidism, recently at [facility] (d/c yesterday for biliary colic), who was BIBEMS d/t weakness and lethargy since yesterday. As per EMS, daughter called since pt was extremely weak and was "not being herself. " Additionally, pt had decreased PO intake and decreased appetite during this time. Pt also endorses RUQ, inferior sternal pain over the past day. Yesterday, her pain was constant, 10/10, however today she states that it is a 5/10. States that pain is similar to her biliary colic. Denies fever, chills, SOB, or changes in urinary or bowel function. Pt is a poor historian, and daughter is unreachable via phone. At baseline, pt lives with her daughter however she is unable to take care of her d/t increased falls. During her stay in the hospital, she was evaluated by GI, HIDA scan showed low EF due to chronic cholecyctitis. She was Started on Megace to increase appetite. She was also started on Steroids for SOB and wheezing. She was evaluated by Pulmonary. Repeat CXR was negative. Cholecystectomy was done by GI surgery on 12/29/17. She tolerated the surgery well. Her INR has been elevated post op. Warfarin is on hold for now until further INR check. She walked with Physical therapy with assistance. Discharge home with [facility] with outpatient INR monitoring and tapering dose of Prednisone Condition: Stable - Instructions Referrals: Faustino Mason MD [Staff Physician] - Joey Hernandez MD [Primary Care Provider] - Disposition: [facility]/HOME HEALTH CARE - Home Medications Comprehensive Discharge Medication List: Ambulatory Orders Diltiazem Cd [Cardizem Cd -] 360 mg PO DAILY tab 08/13/17 Aspirin [ASA -] 81 mg PO DAILY 09/28/17 Montelukast Na [Singulair -] 10 mg PO HS 09/28/17 Furosemide [Lasix -] 40 mg PO DAILY #30 tablet 10/03/17 Methimazole [Tapazole -] 5 mg PO AM tablet 11/05/17 Budesonide [Pulmicort 0.25 mg Nebulizer -] 1 amp IH BID 12/17/17 Digoxin 125 mcg PO HS 12/17/17 Donepezil HCl [Aricept] 5 mg PO HS 12/17/17 Hydralazine HCl 10 mg PO AM 12/17/17 Losartan Potassium 25 mg PO HS 12/17/17 Simvastatin 10 mg PO HS 12/17/17 Warfarin Sodium 4 mg PO HS 12/17/17 Warfarin Sodium [Coumadin] 3 mg PO Q2D 12/17/17 Acetaminophen [Tylenol .Regular Strength -] 650 mg PO Q4H PRN tablet 12/22/17 Albuterol 2.5/Ipratropium 0.5 [Duoneb -] 1 amp NEB RQID amp 12/22/17 Folic Acid 1 mg PO DAILY #30 tablet 12/22/17 Linaclotide [Linzess] 72 mcg PO DAILY #30 capsule 12/22/17 Megestrol Acetate [Megace -] 40 mg PO DAILY tablet 12/22/17 Polyethylene Glycol 3350 [Miralax (For Daily Use) -] 17 gm PO DAILY #1 bottle Vitamin B Comp W-C [Total B with C -] 1 each PO DAILY tablet 12/22/17 Vitamin B Complex [B Complex] 1 each PO DAILY #30 tablet 12/22/17 Warfarin Na [Coumadin -] 1 mg PO DAILY@1800 #60 tablet 12/22/17
[2017-12-31] MEDS ORDERED: PT OWN MED DRAWER 7, Y5N ONE (10:01)
[2017-12-31] MEDS: predniSONE 20 MG TABLET (UD) PO SCH ×2 (10:04→22:22)
[2017-12-31] MEDS: POLYETHYLENE GLYCOL 3350 119 GM BTL PO SCH (10:05)
[2017-12-31] MEDS: VITAMIN B COMPLEX W/C COMBO TABLET (FP) PO SCH (10:05)
[2017-12-31] MEDS: MEGESTROL ACETATE 40 MG TABLET PO SCH (10:05)
[2017-12-31] MEDS: DIGOXIN 0.125 MG TABLET (FP) PO SCH (10:05)
[2017-12-31 10:22] LABS: INR 3.75 (0.82-1.09); PROTHROMBIN TIME (PATIENT) 42.4 SEC (9.98-11.88)
--- NOTE | 2017-12-31 10:52 | PN ---
Progress Note (short form) - Note Progress Note: PULMONARY Denies shortness of breath, cough or wheezing. Last Vital Signs Temp Pulse Resp BP Pulse Ox 97.5 F L 75 20 106/72 96 12/31/17 09:58 12/31/17 10:05 12/31/17 09:58 12/31/17 09:58 12/30/17 21:00 Gen: NAD at rest Heart: RRR Lung: decreased breath sounds at the bases, no wheezes appreciated Abd: soft, nontender Ext: no edema CBC, BMP 12/30/17 05:30 12/30/17 05:30 Active Medications Acetaminophen (Tylenol -) 650 mg PO Q4H PRN PRN Reason: FEVER Last Admin: 12/28/17 09:22 Dose: 650 mg Acetaminophen (Ofirmev Injection -) 1,000 mg IVPB Q6H PRN PRN Reason: PAIN Last Admin: 12/25/17 15:20 Dose: 1,000 mg Albuterol Sulfate (Ventolin 0.083% Nebulizer Soln -) 1 amp NEB Q4H PRN PRN Reason: SHORT OF BREATH/WHEEZING Albuterol/Ipratropium (Duoneb -) 1 amp NEB RQID [facility] Last Admin: 12/31/17 07:15 Dose: 1 amp Digoxin (Lanoxin -) 0.125 mg PO DAILY [facility] Last Admin: 12/31/17 10:05 Dose: 0.125 mg Diltiazem HCl (Cardizem Cd -) 360 mg PO DAILY [facility] Last Admin: 12/31/17 10:04 Dose: 360 mg Donepezil HCl (Aricept -) 10 mg PO HS [facility] Last Admin: 12/30/17 21:02 Dose: 10 mg Losartan Potassium (Cozaar -) 25 mg PO DAILY@1800 [facility] Last Admin: 12/30/17 17:42 Dose: 25 mg Megestrol Acetate (Megace -) 40 mg PO DAILY [facility] Last Admin: 12/31/17 10:05 Dose: 40 mg Methimazole (Tapazole -) 10 mg PO AM [facility] Last Admin: 12/31/17 06:40 Dose: 10 mg Montelukast Sodium (Singulair -) 10 mg PO HS [facility] Last Admin: 12/30/17 21:01 Dose: 10 mg Multivitamins (Total B With C -) 1 each PO DAILY [facility] Last Admin: 12/31/17 10:05 Dose: 1 each Ondansetron HCl (Zofran Injection) 4 mg IVPUSH Q6H PRN PRN Reason: NAUSEA AND/OR VOMITING Polyethylene Glycol (Miralax (For Daily Use) -) 17 gm PO DAILY [facility] Last Admin: 12/31/17 10:05 Dose: 17 gm Prednisone (Deltasone -) 40 mg PO BID [facility] Last Admin: 12/31/17 10:04 Dose: 40 mg A/P s/p Lap Cholecystectomy Acute COPD Exacerbation Atrial Fibrillation h/o bioMVR LV Systolic/Diastolic Dysfunction HTN Hyperthyroidism Dementia - prednisone taper - inhaled bronchodilators - incentive spirometry - O2 as needed to keep SpO2 >90% - rate controlled - continue anticoagulation, target INR 2-3 - d/c planning
[2017-12-31] MEDS: LOSARTAN POTASSIUM 25 MG TABLET PO SCH (17:16)
[2017-12-31] MEDS: MONTELUKAST NA 10 MG TABLET PO SCH (22:22)
[2017-12-31] MEDS: DONEPEZIL HCL 10 MG TABLET (FP) PO SCH (22:22)
[2018-01-01] MEDS ORDERED: PT OWN MED DRAWER 7, Y5N ONE (01:23)
[2018-01-01] MEDS: METHIMAZOLE 5 MG TABLET (FP) PO SCH (06:04)
[2018-01-01] MEDS: ALBUTEROL SO4 2.5/IPRATROPIUM 0.5 INH SOL 3 ML VIAL.NEB. NEB SCH ×3 (08:30→15:55)
[2018-01-01] MEDS: predniSONE 20 MG TABLET (UD) PO SCH (10:03)
[2018-01-01] MEDS: DIGOXIN 0.125 MG TABLET (FP) PO SCH (10:04)
--- NOTE | 2018-01-01 10:13 | PN ---
Progress Note (short form) - Note Progress Note: PULMONARY Feels well. Denies shortness of breath, cough or wheezing. Last Vital Signs Temp Pulse Resp BP Pulse Ox 97.2 F L 85 20 126/66 100 01/01/18 06:00 01/01/18 10:04 01/01/18 06:00 01/01/18 06:00 12/31/17 21:00 Gen: NAD at rest Heart: RRR Lung: decreased breath sounds at the bases, no wheezes appreciated Abd: soft, nontender Ext: no edema CBC, BMP 12/30/17 05:30 12/30/17 05:30 Active Medications Acetaminophen (Tylenol -) 650 mg PO Q4H PRN PRN Reason: FEVER Last Admin: 12/28/17 09:22 Dose: 650 mg Acetaminophen (Ofirmev Injection -) 1,000 mg IVPB Q6H PRN PRN Reason: PAIN Last Admin: 12/25/17 15:20 Dose: 1,000 mg Albuterol Sulfate (Ventolin 0.083% Nebulizer Soln -) 1 amp NEB Q4H PRN PRN Reason: SHORT OF BREATH/WHEEZING Albuterol/Ipratropium (Duoneb -) 1 amp NEB RQID [facility] Last Admin: 01/01/18 08:30 Dose: 1 amp Digoxin (Lanoxin -) 0.125 mg PO DAILY [facility] Last Admin: 01/01/18 10:04 Dose: 0.125 mg Diltiazem HCl (Cardizem Cd -) 360 mg PO DAILY [facility] Last Admin: 01/01/18 10:03 Dose: 360 mg Donepezil HCl (Aricept -) 10 mg PO HS [facility] Last Admin: 12/31/17 22:22 Dose: 10 mg Losartan Potassium (Cozaar -) 25 mg PO DAILY@1800 [facility] Last Admin: 12/31/17 17:16 Dose: 25 mg Megestrol Acetate (Megace -) 40 mg PO DAILY [facility] Last Admin: 12/31/17 10:05 Dose: 40 mg Methimazole (Tapazole -) 10 mg PO AM [facility] Last Admin: 01/01/18 06:04 Dose: 10 mg Montelukast Sodium (Singulair -) 10 mg PO HS [facility] Last Admin: 12/31/17 22:22 Dose: 10 mg Multivitamins (Total B With C -) 1 each PO DAILY [facility] Last Admin: 12/31/17 10:05 Dose: 1 each Ondansetron HCl (Zofran Injection) 4 mg IVPUSH Q6H PRN PRN Reason: NAUSEA AND/OR VOMITING Polyethylene Glycol (Miralax (For Daily Use) -) 17 gm PO DAILY [facility] Last Admin: 12/31/17 10:05 Dose: 17 gm Prednisone (Deltasone -) 40 mg PO BID [facility] Last Admin: 01/01/18 10:03 Dose: 40 mg A/P s/p Lap Cholecystectomy Acute COPD Exacerbation Atrial Fibrillation h/o bioMVR LV Systolic/Diastolic Dysfunction HTN Hyperthyroidism Dementia - prednisone taper, can change to daily dosing - inhaled bronchodilators - incentive spirometry - O2 as needed to keep SpO2 >90% - rate controlled - continue anticoagulation, target INR 2-3 - d/c planning
[2018-01-01] MEDS: VITAMIN B COMPLEX W/C COMBO TABLET (FP) PO SCH (10:14)
[2018-01-01] MEDS: MEGESTROL ACETATE 40 MG TABLET PO SCH (10:14)
[2018-01-01] MEDS: POLYETHYLENE GLYCOL 3350 119 GM BTL PO SCH (10:15)
--- NOTE | 2018-01-01 11:00 | PN ---
Progress Note, Physician Chief Complaint: Weakness, RUQ abdominal pain History of Present Illness: NAD, sitting in chair INR was still elevated yesterday, warfarin on hold no pain/nausea/vomiting at this time Awaiting INR from today - Current Medication List Current Medications: Active Medications Acetaminophen (Tylenol -) 650 mg PO Q4H PRN PRN Reason: FEVER Last Admin: 12/28/17 09:22 Dose: 650 mg Acetaminophen (Ofirmev Injection -) 1,000 mg IVPB Q6H PRN PRN Reason: PAIN Last Admin: 12/25/17 15:20 Dose: 1,000 mg Albuterol Sulfate (Ventolin 0.083% Nebulizer Soln -) 1 amp NEB Q4H PRN PRN Reason: SHORT OF BREATH/WHEEZING Albuterol/Ipratropium (Duoneb -) 1 amp NEB RQID [facility] Last Admin: 01/01/18 08:30 Dose: 1 amp Digoxin (Lanoxin -) 0.125 mg PO DAILY [facility] Last Admin: 01/01/18 10:04 Dose: 0.125 mg Diltiazem HCl (Cardizem Cd -) 360 mg PO DAILY [facility] Last Admin: 01/01/18 10:03 Dose: 360 mg Donepezil HCl (Aricept -) 10 mg PO HS [facility] Last Admin: 12/31/17 22:22 Dose: 10 mg Losartan Potassium (Cozaar -) 25 mg PO DAILY@1800 [facility] Last Admin: 12/31/17 17:16 Dose: 25 mg Megestrol Acetate (Megace -) 40 mg PO DAILY [facility] Last Admin: 01/01/18 10:14 Dose: 40 mg Methimazole (Tapazole -) 10 mg PO AM [facility] Last Admin: 01/01/18 06:04 Dose: 10 mg Montelukast Sodium (Singulair -) 10 mg PO HS [facility] Last Admin: 12/31/17 22:22 Dose: 10 mg Multivitamins (Total B With C -) 1 each PO DAILY [facility] Last Admin: 01/01/18 10:14 Dose: 1 each Ondansetron HCl (Zofran Injection) 4 mg IVPUSH Q6H PRN PRN Reason: NAUSEA AND/OR VOMITING Polyethylene Glycol (Miralax (For Daily Use) -) 17 gm PO DAILY [facility] Last Admin: 01/01/18 10:15 Dose: Not Given Prednisone (Deltasone -) 40 mg PO DAILY [facility] - Objective Vital Signs: Vital Signs Temperature 97.2 F L 01/01/18 06:00 Pulse Rate 85 01/01/18 10:04 Respiratory Rate 20 01/01/18 06:00 Blood Pressure 126/66 01/01/18 06:00 O2 Sat by Pulse Oximetry (%) 100 12/31/17 21:00 Constitutional: Yes: Well Nourished, No Distress, Calm Cardiovascular: Yes: Pulse Irregular Respiratory: Yes: Regular Gastrointestinal: Yes: Normal Bowel Sounds, Soft Musculoskeletal: Yes: WNL Extremities: Yes: WNL Edema: No Peripheral Pulses WNL: Yes Neurological: Yes: Alert, Pre-Existing Deficit Psychiatric: Yes: Alert Labs: CBC, BMP 12/30/17 05:30 12/30/17 05:30 INR, PTT INR 3.75 (0.82-1.09) H 12/31/17 09:35 Problem List - Problems (1) Abdominal pain Assessment/Plan: -resolved -s/p lap choley Code(s): R10.9 - UNSPECIFIED ABDOMINAL PAIN (2) COPD (chronic obstructive pulmonary disease) Assessment/Plan: -nasal o2 -bronchodilators -tapering dose of PO steroids -seen by Pulmonary consult -D/C to SNF Code(s): J44.9 - CHRONIC OBSTRUCTIVE PULMONARY DISEASE, UNSPECIFIED (3) Atrial fibrillation with rapid ventricular response Code(s): I48.91 - UNSPECIFIED ATRIAL FIBRILLATION (4) DVT (deep venous thrombosis) Code(s): I82.409 - ACUTE EMBOLISM AND THOMBOS UNSP DEEP VN UNSP LOWER EXTREMITY Qualifiers: DVT location: non-extremity vein Chronicity: unspecified Qualified Code(s ): I82.90 - Acute embolism and thrombosis of unspecified vein (5) H/O heart valve replacement with bioprosthetic valve Code(s): Z95.3 - PRESENCE OF XENOGENIC HEART VALVE (6) Pulmonary embolism Code(s): I26.99 - OTHER PULMONARY EMBOLISM WITHOUT ACUTE COR PULMONALE (7) Altered mental status Assessment/Plan: -neurology consult appreciated -Aricept increased to 10 mg po daily Code(s): R41.82 - ALTERED MENTAL STATUS, UNSPECIFIED (8) Elevated INR Assessment/Plan: -INR was still elevated yesterday -repeat INR today pending -warfarin on hold Code(s): R79.1 - ABNORMAL COAGULATION PROFILE Assessment/Plan see problem list d/c SNF
[2018-01-01 12:07] LABS: INR 2.91 (0.82-1.09); PROTHROMBIN TIME (PATIENT) 32.9 SEC (9.98-11.88)
--- NOTE | 2018-01-01 13:42 | PN ---
Progress Note, Physician History of Present Illness: seen and examined today in nad. no overnight events. no new complaints. - Current Medication List Current Medications: Active Medications Acetaminophen (Tylenol -) 650 mg PO Q4H PRN PRN Reason: FEVER Last Admin: 12/28/17 09:22 Dose: 650 mg Acetaminophen (Ofirmev Injection -) 1,000 mg IVPB Q6H PRN PRN Reason: PAIN Last Admin: 12/25/17 15:20 Dose: 1,000 mg Albuterol Sulfate (Ventolin 0.083% Nebulizer Soln -) 1 amp NEB Q4H PRN PRN Reason: SHORT OF BREATH/WHEEZING Albuterol/Ipratropium (Duoneb -) 1 amp NEB RQID [facility] Last Admin: 01/01/18 11:51 Dose: 1 amp Digoxin (Lanoxin -) 0.125 mg PO DAILY [facility] Last Admin: 01/01/18 10:04 Dose: 0.125 mg Diltiazem HCl (Cardizem Cd -) 360 mg PO DAILY [facility] Last Admin: 01/01/18 10:03 Dose: 360 mg Donepezil HCl (Aricept -) 10 mg PO HS [facility] Last Admin: 12/31/17 22:22 Dose: 10 mg Losartan Potassium (Cozaar -) 25 mg PO DAILY@1800 [facility] Last Admin: 12/31/17 17:16 Dose: 25 mg Megestrol Acetate (Megace -) 40 mg PO DAILY [facility] Last Admin: 01/01/18 10:14 Dose: 40 mg Methimazole (Tapazole -) 10 mg PO AM [facility] Last Admin: 01/01/18 06:04 Dose: 10 mg Montelukast Sodium (Singulair -) 10 mg PO HS [facility] Last Admin: 12/31/17 22:22 Dose: 10 mg Multivitamins (Total B With C -) 1 each PO DAILY [facility] Last Admin: 01/01/18 10:14 Dose: 1 each Ondansetron HCl (Zofran Injection) 4 mg IVPUSH Q6H PRN PRN Reason: NAUSEA AND/OR VOMITING Polyethylene Glycol (Miralax (For Daily Use) -) 17 gm PO DAILY [facility] Last Admin: 01/01/18 10:15 Dose: Not Given Prednisone (Deltasone -) 40 mg PO DAILY [facility] - Objective Vital Signs: Vital Signs Temperature 98.1 F 01/01/18 10:00 Pulse Rate 85 01/01/18 10:04 Respiratory Rate 16 01/01/18 10:00 Blood Pressure 134/76 01/01/18 10:00 O2 Sat by Pulse Oximetry (%) 100 12/31/17 21:00 Constitutional: Yes: No Distress, Calm Eyes: Yes: Conjunctiva Clear, EOM Intact HENT: Yes: Atraumatic, Normocephalic Neck: Yes: Supple, Trachea Midline Cardiovascular: Yes: Pulse Irregular, Murmur, S1, S2. No: Regular Rate and Rhythm, Bradycardia, Tachycardia, Bruit, JVD, Gallop, Rub, S3, S4, Varicosities Respiratory: Yes: Regular, Diminished, Wheezes. No: Rales, Rhonchi, SOB Gastrointestinal: Yes: Normal Bowel Sounds, Soft. 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 COPD Abdominal wall hematoma s/p fall Anemia, Thrombocytopenia, recent prolonged admission for AE COPD, recently admitted for presumed syncope, also recently admitted with possible PNA, nausea, vomiting, diarrhea, confusion and now admitted with abdominal pain, fever, possible viral illness as well as cholelithiasis s/p lap nasrin Post op cardiac evaluation: -s/p lap cholecystectomy tolerated well from a cardiac standpoint -no additional inpatient cardiac work up needed at this point AFib-HR adequately controlled currently, INR subtherapeutic -cont cardizem and digoxin for rate control -dose warfarin to maintain INR 2-3, INR therapeutic range today Bio MVR-stable -outpatient f/up HTN-overall Adequately controlled, low normal at times -cont current medical regimen for now No additional planned inpatient cardiac work up at this time.
[2018-01-01 16:07] VITALS: BP 125/74; PULSE 94; TEMP 98.8
[2018-01-02] MEDS ORDERED: predniSONE 20 MG TABLET (UD) PO SCH (10:00)
== END 2018-01-01 16:54 | DRG 418 ==
LOC: JER 14:20 → JERBED 16:56 → J8W 19:46
PROVIDERS: ADMIT Family Medicine; ATTEND Family Medicine
PROC: 0FT44ZZ Resection of Gallbladder, Percutaneous Endoscopic Approach (ICD-10-PCS; principal; 2017-12-25 14:00)
DX: K82.8 Other specified diseases of gallbladder (principal); I50.42 Chronic combined systolic (congestive) and diastolic (congestive) heart failure; J44.1 Chronic obstructive pulmonary disease with (acute) exacerbation; F05 Delirium due to known physiological condition; F02.81 Dementia in other diseases classified elsewhere, unspecified severity, with behavioral disturbance; K80.10 Calculus of gallbladder with chronic cholecystitis without obstruction; I11.0 Hypertensive heart disease with heart failure; I48.91 Unspecified atrial fibrillation; G30.9 Alzheimer's disease, unspecified; Z86.711 Personal history of pulmonary embolism; E87.6 Hypokalemia; Z86.718 Personal history of other venous thrombosis and embolism; R63.0 Anorexia; K59.00 Constipation, unspecified; E03.9 Hypothyroidism, unspecified; R50.9 Fever, unspecified; I34.0 Nonrheumatic mitral (valve) insufficiency
CPT/HCPCS: 36415; 70450-TC; 71045-TC-FY; 74177-TC; 76705-TC; 78227-TC; 80048; 80053; 80076; 80162; 81003; 81015; 82150; 82542; 82550; 82962; 83036; 83690; 83880; 84439; 84443; 84484; 85025; 85027; 85610; 85730; 86022; 86140; 86850; 86900; 86901; 87040; 87086; 87804; 88304-TC; 93005; 93010; 94640; 94760; 97116-GP; 97161-GP; 99282-25; 99283-25; A9537; J0131; J1644; J8999

== ENCOUNTER 2018-10-27 18:31 | Inpatient (IN) | payer OTHER ==
--- NOTE | 2018-10-27 19:31 | PDOC ---
Attending Attestation - Resident Resident Name: Aissatou Cardoza - ED Attending Attestation I have performed the following: I have examined & evaluated the patient, The case was reviewed & discussed with the resident, I agree w/resident's findings & plan, Exceptions are as noted - HPI HPI: 10/28/18 01:39 78-year-old female was brought in by EMS from the retirement because of concern for her decline in function and somnolent. According to the retirement note she is usually more alert. - Physicial Exam PE: 10/28/18 01:39 Well-nourished, well-developed 78-year-old female in no acute distress. Head normocephalic/atraumatic. Eyes extraocular muscles intact, anicteric. Neck no JVD. Lungs no wheezing, no crackles appreciated CVS regular rate and rhythm Abdomen nontender. Extremities no erythema, no deformities. Skin is warm and dry. Neuro patient is alert and oriented 2, she follows simple directions, she is a poor historian, moving all extremities - Medical Decision Making 10/28/18 01:42 Past medical history of dementia, paroxysmal A. fib on Coumadin, CHF, diabetes, hypothyroidism, asthma Patient presents with stable vital signs. She has no fevers, she is normotensive, she is 99% on room air 10/28/18 02:06 her troponin is elevated and remained elevated after it was repeated .will admit to tele OBS
[2018-10-27 20:54] LABS: BASO % 0.8 % (0-2.0); EOS % 0.6 % (0-4.5); HEMATOCRIT 40.2 % (32.4-45.2); HEMOGLOBIN 13.9 GM/dL (10.7-15.3); LYMPH % 8.9 % (8-40); MCHC 34.5 g/dl (32.0-36.0); MEAN CELL VOLUME 95.8 fl (80-96); MEAN PLT VOLUME 8.2 fl (7.5-11.1); MONO % 9.2 % (3.8-10.2); NEUT % 80.5 % (42.8-82.8); PLATELET COUNT 224 K/MM3 (134-434); RDW 16.5 % (11.6-15.6); WHITE BLOOD COUNT 13.1 K/mm3 (4.0-10.0)
[2018-10-27 21:15] LABS: INR 2.44 (0.83-1.09)
[2018-10-27 21:26] LABS: ALBUMIN 2.6 g/dl (3.4-5.0); ALK PHOS 50 U/L (45-117); ANION GAP 8 MMOL/L (8-16); BILIRUBIN,TOTAL 0.6 mg/dL (0.2-1); BLOOD UREA NITROGEN 25 mg/dL (7-18); CALCIUM 8.2 mg/dL (8.5-10.1); CHLORIDE 109 mmol/L (98-107); CO2 27 mmol/L (21-32); CREATININE 0.8 mg/dL (0.55-1.3); GLUCOSE,RANDOM 140 mg/dL (74-106); MAGNESIUM 2.1 mg/dL (1.8-2.4); POTASSIUM 3.8 mmol/L (3.5-5.1); SGOT/AST 22 U/L (15-37); SGPT/ALT 14 U/L (13-61); SODIUM 144 mmol/L (136-145)
--- NOTE | 2018-10-27 21:54 | PDOC ---
History of Present Illness - General Chief Complaint: Lethargy Stated Complaint: RULE OUT STROKE Time Seen by Provider: 10/27/18 19:21 History Source: [facility] Records Exam Limitations: Dementia - History of Present Illness Initial Comments: 10/27/18 21:47 Pt is a 78yo F with PMH of Dementia, Afib (on Coumadin), CHF, DM, Hyperthyroidism, Fatty Liver, Asthma BIBA from [facility] for hypersomnolence and decline in function. FSG was 171. Unable to obtain information from patient. PMD: [place] PMH: see hpi PSH: MVR, cholecystectomy Meds: see med rec Allergies: Codeine, Ampicillin Past History - Past Medical History Allergies/Adverse Reactions: Allergies Allergy/AdvReac Type Severity Reaction Status Date / Time ampicillin [Ampicillin] Allergy Severe Swelling Verified 12/17/17 14:22 codeine [Codeine] Allergy Swelling Verified 12/17/17 14:22 Home Medications: Ambulatory Orders Diltiazem Cd [Cardizem Cd -] 360 mg PO DAILY tab 08/13/17 Aspirin [ASA -] 81 mg PO DAILY 09/28/17 Montelukast Na [Singulair -] 10 mg PO HS 09/28/17 Furosemide [Lasix -] 40 mg PO DAILY #30 tablet 10/03/17 Methimazole [Tapazole -] 5 mg PO AM tablet 11/05/17 Budesonide [Pulmicort 0.25 mg Nebulizer -] 1 amp IH BID 12/17/17 Digoxin 125 mcg PO HS 12/17/17 Donepezil HCl [Aricept] 5 mg PO HS 12/17/17 Hydralazine HCl 10 mg PO AM 12/17/17 Losartan Potassium 25 mg PO HS 12/17/17 Simvastatin 10 mg PO HS 12/17/17 Warfarin Sodium 4 mg PO HS 12/17/17 Warfarin Sodium [Coumadin] 3 mg PO Q2D 12/17/17 Acetaminophen [Tylenol .Regular Strength -] 650 mg PO Q4H PRN tablet 12/22/17 Albuterol 2.5/Ipratropium 0.5 [Duoneb -] 1 amp NEB RQID amp 12/22/17 Folic Acid 1 mg PO DAILY #30 tablet 12/22/17 Linaclotide [Linzess] 72 mcg PO DAILY #30 capsule 12/22/17 Megestrol Acetate [Megace -] 40 mg PO DAILY tablet 12/22/17 Polyethylene Glycol 3350 [Miralax (For Daily Use) -] 17 gm PO DAILY #1 bottle Vitamin B Comp W-C [Total B with C -] 1 each PO DAILY tablet 12/22/17 Vitamin B Complex [B Complex] 1 each PO DAILY #30 tablet 12/22/17 Warfarin Na [Coumadin -] 1 mg PO DAILY@1800 #60 tablet 12/22/17 Prednisone 10 mg PO ASDIR #65 tablet 12/31/17 Anemia: No Asthma: Yes Cardiac Disorders: Yes (afib) COPD: Yes CHF: Yes DVT: No Dementia: Yes Diabetes: Yes Dialysis: No HTN: Yes Kidney Stones: No Liver Disease: Yes (FATTY LIVER) Psychiatric Problems: No Thyroid Disease: Yes (HYPO, NO MEDS) Lung CA: No - Surgical History Abdominal Surgery: Yes (TUBAL LIGATION) Cardiac Surgery: Yes (mitral valve replacement 2 wks ago) - Family Disease History Family Disease History: Diabetes: Father, Heart Disease: Father, Mother - Immunization History Immunization Up to Date: Yes - Suicide/Smoking/Psychosocial Hx Smoking Status: No Smoking History: Unknown if ever smoked Have you smoked in the past 12 months: No Number of Cigarettes Smoked Daily: 0 Cigars Per Day: 0 Information on smoking cessation initiated: No Hx Alcohol Use: No Drug/Substance Use Hx: No Substance Use Type: None Hx Substance Use Treatment: No Review of Systems - Review of Systems Able to Perform ROS?: No Comments:: 10/27/18 21:55 Unable to perform due to dementia. *Physical Exam - Vital Signs Last Vital Signs Temp Pulse Resp BP Pulse Ox 98.2 F 74 18 111/63 99 10/27/18 18:35 10/27/18 18:35 10/27/18 18:35 10/27/18 18:35 10/27/18 18:35 - Physical Exam General Appearance: Yes: Appropriately Dressed, Obese. No: Apparent Distress HEENT: positive: EOMI, CHERI, TMs Normal, Pharynx Normal. negative: Pale Conjunctivae, Scleral Icterus (R), Scleral Icterus (L), Pharyngeal Erythema, Nasal Congestion Neck: positive: Trachea midline, Supple. negative: Carotid bruit, Lymphadenopathy (R), Lymphadenopathy (L) Respiratory/Chest: positive: Lungs Clear, Normal Breath Sounds. negative: Respiratory Distress, Crackles, Rales, Rhonchi, Stridor, Wheezing Cardiovascular: positive: Regular Rhythm, Regular Rate, S1, S2. negative: Edema , JVD, Murmur Vascular Pulses: Carotid (R): 2+, Carotid (L): 2+, Dorsalis-Pedis (R): 2+, Doralis-Pedis (L): 2+ Gastrointestinal/Abdominal: positive: Normal Bowel Sounds, Soft, Distended. 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 negative: Fully Oriented (AOx2 (baseline per records)) Moderate Sedation - Procedure Monitoring Vital Signs: Procedure Monitoring Vital Signs Temperature 98.2 F 10/27/18 18:35 Pulse Rate 74 10/27/18 18:35 Respiratory Rate 18 10/27/18 18:35 Blood Pressure 111/63 10/27/18 18:35 O2 Sat by Pulse Oximetry (%) 99 10/27/18 18:35 ED Treatment Course - LABORATORY CBC & Chemistry Diagram: 10/27/18 20:38 10/27/18 20:38 - ADDITIONAL ORDERS Additional order review: Laboratory Results 10/27/18 10/27/18 10/27/18 20:38 20:38 20:38 PT with INR 29.00 H INR 2.44 H PTT (Actin FS) Sodium 144 Potassium 3.8 Chloride 109 H Carbon Dioxide 27 Anion Gap 8 BUN 25 H Creatinine 0.8 Creat Clearance w eGFR > 60 Random Glucose 140 H Calcium 8.2 L Magnesium 2.1 Total Bilirubin 0.6 AST 22 ALT 14 Alkaline Phosphatase 50 Total Protein 6.0 L Albumin 2.6 L TSH 0.64 10/27/18 20:38 PT with INR INR PTT (Actin FS) 36.1 Sodium Potassium Chloride Carbon Dioxide Anion Gap BUN Creatinine Creat Clearance w eGFR Random Glucose Calcium Magnesium Total Bilirubin AST ALT Alkaline Phosphatase Total Protein Albumin TSH 10/27/18 20:38 RBC 4.20 MCV 95.8 MCHC 34.5 RDW 16.5 H MPV 8.2 Neutrophils % 80.5 Lymphocytes % 8.9 Monocytes % 9.2 D Eosinophils % 0.6 D Basophils % 0.8 D - RADIOLOGY Radiology Studies Ordered: Category Date Time Status HEAD CT WITHOUT CONTRAST [CT] Stat CT Scan 10/27/18 19:24 Ordered Medical Decision Making - Medical Decision Making 10/27/18 21:57 78yo F with dementia, Afib on coumadin, CHF, DM, fatty liver, hyperthyroidism sent from [place] for AMS (hypersomnolence and decreased function). Vitals: wnl Pt is AOx2, obeying commands, does not respond to questions. Ddx includes but not limited to CVA, electrolyte imbalance, infection, metabolic disturbance, ACS CBC, CMP, Cardiac profile, Coags, TSH, UA ordered. Pt will likely need straight cath for urine. EKG, CXR and CT head. 10/27/18 22:02 Labs significant for WBC 13, Ca 8.2 Imaging pending, EKG pending 10/27/18 22:04 Pt will likely need admission for AMS. Signed out to Dr. Tang *DC/Admit/Observation/Transfer Diagnosis at time of Disposition: Mental status alteration Qualifiers: Altered mental status type: somnolence Qualified Code(s): R40.0 - Somnolence - Referrals Referrals: ON STAFF,NOT [Primary Care Provider] - - Patient Instructions - Post Discharge Activity
[2018-10-27 22:39] LABS: PLATELET ESTIMATE ADEQUATE
[2018-10-28 00:16] LABS: URINE APPEARANCE SLCLOUDY; URINE COLOR AMBER; URINE GLUCOSE (UA) NEGATIVE (NEGATIVE); URINE KETONE NEGATIVE (NEGATIVE); URINE LEUK ESTERASE NEGATIVE (NEGATIVE); URINE NITRITE NEGATIVE (NEGATIVE); URINE PROTEIN NEGATIVE (NEGATIVE); URINE UROBILINOGEN 4.0 E.U/dl mg/dL (0.2-1.0)
--- NOTE | 2018-10-28 01:13 | PDOC ---
*Physical Exam - Vital Signs Last Vital Signs Temp Pulse Resp BP Pulse Ox 98.2 F 74 18 111/63 99 10/27/18 18:35 10/27/18 18:35 10/27/18 18:35 10/27/18 18:35 10/27/18 18:35 - Physical Exam Comments: 10/28/18 01:11 GENERAL: Awake, alert, oriented x 2, in no acute distress HEAD: No signs of trauma, normocephalic, atraumatic EYES: PERRLA, EOMI, sclera anicteric, conjunctiva clear ENT: Auricles normal inspection, hearing grossly normal, nares patent, oropharynx clear without exudates. Moist mucosa NECK: Normal ROM, supple, no lymphadenopathy, JVD, or masses LUNGS: No distress, speaks full sentences, clear to auscultation bilaterally HEART: Regular rhythm, normal S1 and S2, no murmurs, rubs or gallops, peripheral pulses normal and equal bilaterally. ABDOMEN: Soft, nontender, normoactive bowel sounds. No guarding, no rebound. No masses EXTREMITIES : Normal inspection, Normal range of motion, no edema. No clubbing or cyanosis. NEUROLOGICAL: Cranial nerves II through XII grossly intact. No focal sensorimotor deficits SKIN: Warm, Dry, normal turgor, no rashes or lesions noted Heart Score/ECG Review - History History: Slightly suspicious - Electrocardiogram EKG: Non specific repolarization disturbance - Age Age: >/= 65 - Risk Factors Risk Factors Heart Score: Yes Hx Hypercholesterolemia, Yes Hx Hypertension, Yes Positive family hx of cardiac disease Based on the list above the patient has:: >/=3 risk factors or Hx atherosclerotic disease - Troponin Troponin: 1-3x normal limit - Score Heart Score - Total: 6 ED Treatment Course - LABORATORY CBC & Chemistry Diagram: 10/27/18 20:38 10/27/18 20:38 - ADDITIONAL ORDERS Additional order review: Laboratory Results 10/27/18 10/27/18 10/27/18 23:56 20:38 20:38 PT with INR INR PTT (Actin FS) Sodium 144 Potassium 3.8 Chloride 109 H Carbon Dioxide 27 Anion Gap 8 BUN 25 H Creatinine 0.8 Creat Clearance w eGFR > 60 Random Glucose 140 H Calcium 8.2 L Magnesium 2.1 Total Bilirubin 0.6 AST 22 ALT 14 Alkaline Phosphatase 50 Creatine Kinase 308 H Creatine Kinase Index 1.6 CK-MB (CK-2) 5.2 H Troponin I 0.16 H Total Protein 6.0 L Albumin 2.6 L TSH 0.64 Urine Color Nelsy Urine Appearance Slcloudy Urine pH 5.0 Ur Specific [place] 1.027 Urine Protein Negative Urine Glucose (UA) Negative Urine Ketones Negative Urine Blood Negative Urine Nitrite Negative Urine Bilirubin 2.0 Urine Urobilinogen 4.0 e.u/dl H Ur Leukocyte Esterase Negative 10/27/18 10/27/18 20:38 20:38 PT with INR 29.00 H INR 2.44 H PTT (Actin FS) 36.1 Sodium Potassium Chloride Carbon Dioxide Anion Gap BUN Creatinine Creat Clearance w eGFR Random Glucose Calcium Magnesium Total Bilirubin AST ALT Alkaline Phosphatase Creatine Kinase Creatine Kinase Index CK-MB (CK-2) Troponin I Total Protein Albumin TSH Urine Color Urine Appearance Urine pH Ur Specific [place] Urine Protein Urine Glucose (UA) Urine Ketones Urine Blood Urine Nitrite Urine Bilirubin Urine Urobilinogen Ur Leukocyte Esterase 10/27/18 20:38 RBC 4.20 MCV 95.8 MCHC 34.5 RDW 16.5 H MPV 8.2 Neutrophils % 80.5 Lymphocytes % 8.9 Monocytes % 9.2 D Eosinophils % 0.6 D Basophils % 0.8 D Medical Decision Making - Medical Decision Making 10/28/18 01:09 78 yo F with h/o DM, Asthma, Hyperthyrodisim, Dementia, A-fib ( on Coumadin), CHF, ALMONTE, BIBA from [facility] for hypersomnolence/lethargy. Received signout from Dr. GOFF [id number]. VSS, AF. Trop 0.16, CTH unremarkable. CXR unremarkable. Patient pending Repeat trop. If repeat trop, and UA unremarkable can d/c back to [place]. ED Course: 10/28/18 01:36 UA: Neg 10/28/18 02:08 EKG: NSR with 1st degree AV block OH interval 246. Neg ANIKA, STD. Normal TWI. Repeat trop 0.17 Plan to admit tele/obs 10/28/18 02:08 Heart score 6 10/28/18 02:[address] Capps. Admitted to tele/obs. *DC/Admit/Observation/Transfer Diagnosis at time of Disposition: Troponin level elevated Mental status alteration Qualifiers: Altered mental status type: somnolence Qualified Code(s): R40.0 - Somnolence - Discharge Dispostion Disposition: HOME Condition at time of disposition: Stable Decision to Admit order: Yes - Referrals Referrals: ON STAFF,NOT [Primary Care Provider] - - Patient Instructions Printed Discharge Instructions: DI for Altered Mental Status Additional Instructions: Please return to the emergency department with any new or worsening symptoms or concerns. Please follow up with your primary care physician within 72 hours. - Post Discharge Activity - Attestations Physician Attestion: 10/28/18 01:38 I attest to the information provided in this note.
--- NOTE | 2018-10-28 04:21 | HP ---
CHIEF COMPLAINT: AMS, lethargy PCP: Dr. Wood HISTORY OF PRESENT ILLNESS: The patient is only able to give a limited hx. The following was obtained from [place] records and the EMR. The patient is a 78 yo f w/ PMH Dementia, Afib on coumadin, bioprosthetic mitral valve replacement, CHF, DM, Hyperthyroidism and asthma who was BIBEMS from [facility] for a 3 day hx of AMS and lethargy. Per [place] records, the patient has been increasingly confused and hypersolomnent over the past 3 days. On interview, the patient was able to carry a limited conversation and denied any complaints. Per patient, she is able to ambulate and is frequently OOB to chair in [place] ER course was notable for: (1) WBC 13.9 (2) Trop .16 -> .17 on repeat (3) EKG with NSR and no ischemic changes (4) CT head negative for acute pathology (5) CXR with possible infiltrate on the right Recent Travel: none PAST MEDICAL HISTORY: see HPI PAST SURGICAL HISTORY: bioprosthetic valve replacement tubal ligation Social History: Unable to obtain Family History: Non-contributory Allergies ampicillin [Ampicillin] Allergy (Severe, Verified 12/17/17 14:22) Swelling codeine [Codeine] Allergy (Verified 12/17/17 14:22) Swelling HOME MEDICATIONS: Home Medications Medication Instructions Recorded Diltiazem Cd [Cardizem Cd -] 360 mg PO DAILY tab 08/13/17 Furosemide [Lasix -] 40 mg PO DAILY #30 tablet 10/03/17 Methimazole [Tapazole -] 5 mg PO AM tablet 11/05/17 Digoxin 125 mcg PO HS 12/17/17 Donepezil HCl [Aricept] 5 mg PO HS 12/17/17 Losartan Potassium 25 mg PO HS 12/17/17 Warfarin Sodium 2.5 mg PO HS 12/17/17 Acetaminophen [Tylenol .Regular 650 mg PO Q4H PRN tablet 12/22/17 Strength -] Linaclotide [Linzess] 72 mcg PO DAILY #30 capsule 12/22/17 Megestrol Acetate [Megace -] 40 mg PO DAILY tablet 12/22/17 Polyethylene Glycol 3350 [Miralax 17 gm PO DAILY #1 bottle 12/22/17 (For Daily Use) -] REVIEW OF SYSTEMS CONSTITUTIONAL: Absent: fever, chills, diaphoresis, generalized weakness, malaise, loss of appetite, weight change HEENT: Absent: rhinorrhea, nasal congestion, throat pain, throat swelling, difficulty swallowing, mouth swelling, ear pain, eye pain, visual changes CARDIOVASCULAR: Absent: chest pain, syncope, palpitations, irregular heart rate, lightheadedness , peripheral edema RESPIRATORY: Absent: cough, shortness of breath, dyspnea with exertion, orthopnea, wheezing, stridor, hemoptysis GASTROINTESTINAL: Absent: abdominal pain, abdominal distension, nausea, vomiting, diarrhea, constipation, melena, hematochezia GENITOURINARY: Absent: dysuria, frequency, urgency, hesitancy, hematuria, flank pain, genital pain MUSCULOSKELETAL: Absent: myalgia, arthralgia, joint swelling, back pain, neck pain SKIN: Absent: rash, itching, pallor HEMATOLOGIC/IMMUNOLOGIC: Absent: easy bleeding, easy bruising, lymphadenopathy, frequent infections ENDOCRINE: Absent: unexplained weight gain, unexplained weight loss, heat intolerance, cold intolerance NEUROLOGIC: Absent: headache, focal weakness or paresthesias, dizziness, unsteady gait, seizure, mental status changes, bladder or bowel incontinence PSYCHIATRIC: Absent: anxiety, depression, suicidal or homicidal ideation, hallucinations. PHYSICAL EXAMINATION Vital Signs - 24 hr 10/27/18 18:35 Temperature 98.2 F Pulse Rate 74 Respiratory 18 Rate Blood Pressure 111/63 O2 Sat by Pulse 99 Oximetry (%) GENERAL: Awake, alert, oriented to self and place only. Baseline unknown. Often confused as per [place] records HEAD: Normal with no signs of trauma. EYES: Pupils equal, round and reactive to light, extraocular movements intact, sclera anicteric, conjunctiva clear. No lid lag. LUNGS: Breath sounds equal, Mild crackles b/l. No accessory muscle use. HEART: Regular rate and rhythm, normal S1 and S2 without murmur, rub or gallop. ABDOMEN: Soft, nontender, not distended, normoactive bowel sounds, no guarding, no rebound, no masses. No hepatomegaly or splenomegaly. LOWER EXTREMITIES: 2+ pulses, warm, well-perfused. No calf tenderness. No peripheral edema. NEUROLOGICAL: Cranial nerves II-X intact. Hard to understand speech. responses to questions delayed. SKIN: Warm, dry, normal turgor, no rashes or lesions noted, normal capillary refill. No pressure ulcers noted. Laboratory Results - last 24 hr 10/27/18 10/27/18 10/27/18 20:38 20:38 20:38 WBC 13.1 H RBC 4.20 Hgb 13.9 Hct 40.2 D MCV 95.8 MCH 33.0 D MCHC 34.5 RDW 16.5 H Plt Count 224 MPV 8.2 Absolute Neuts (auto) 10.5 H Total Counted 100 Neutrophils % 80.5 Neutrophils % (Manual) 78.0 Band Neutrophils % 1.0 Lymphocytes % 8.9 Lymphocytes % (Manual) 6.0 L Monocytes % 9.2 D Monocytes % (Manual) 9 D Eosinophils % 0.6 D Basophils % 0.8 D Nucleated RBC % 0 Differential Comment Man diff performed Platelet Estimate Adequate Platelet Comment Slide scanned. Polychromasia 1+ PT with INR 29.00 H INR 2.44 H PTT (Actin FS) 36.1 Sodium Potassium Chloride Carbon Dioxide Anion Gap BUN Creatinine Creat Clearance w eGFR Random Glucose Calcium Magnesium Total Bilirubin AST ALT Alkaline Phosphatase Creatine Kinase Creatine Kinase Index CK-MB (CK-2) Troponin I Total Protein Albumin TSH Urine Color Urine Appearance Urine pH Ur Specific [place] Urine Protein Urine Glucose (UA) Urine Ketones Urine Blood Urine Nitrite Urine Bilirubin Urine Urobilinogen Ur Leukocyte Esterase 10/27/18 10/27/18 10/27/18 20:38 20:38 23:56 WBC RBC Hgb Hct MCV MCH MCHC RDW Plt Count MPV Absolute Neuts (auto) Total Counted Neutrophils % Neutrophils % (Manual) Band Neutrophils % Lymphocytes % Lymphocytes % (Manual) Monocytes % Monocytes % (Manual) Eosinophils % Basophils % Nucleated RBC % Differential Comment Platelet Estimate Platelet Comment Polychromasia PT with INR INR PTT (Actin FS) Sodium 144 Potassium 3.8 Chloride 109 H Carbon Dioxide 27 Anion Gap 8 BUN 25 H Creatinine 0.8 Creat Clearance w eGFR > 60 Random Glucose 140 H Calcium 8.2 L Magnesium 2.1 Total Bilirubin 0.6 AST 22 ALT 14 Alkaline Phosphatase 50 Creatine Kinase 308 H Creatine Kinase Index 1.6 CK-MB (CK-2) 5.2 H Troponin I 0.16 H Total Protein 6.0 L Albumin 2.6 L TSH 0.64 Urine Color Nelsy Urine Appearance Slcloudy Urine pH 5.0 Ur Specific [place] 1.027 Urine Protein Negative Urine Glucose (UA) Negative Urine Ketones Negative Urine Blood Negative Urine Nitrite Negative Urine Bilirubin 2.0 Urine Urobilinogen 4.0 e.u/dl H Ur Leukocyte Esterase Negative 10/28/18 01:19 WBC RBC Hgb Hct MCV MCH MCHC RDW Plt Count MPV Absolute Neuts (auto) Total Counted Neutrophils % Neutrophils % (Manual) Band Neutrophils % Lymphocytes % Lymphocytes % (Manual) Monocytes % Monocytes % (Manual) Eosinophils % Basophils % Nucleated RBC % Differential Comment Platelet Estimate Platelet Comment Polychromasia PT with INR INR PTT (Actin FS) Sodium Potassium Chloride Carbon Dioxide Anion Gap BUN Creatinine Creat Clearance w eGFR Random Glucose Calcium Magnesium Total Bilirubin AST ALT Alkaline Phosphatase Creatine Kinase 274 H Creatine Kinase Index 1.4 CK-MB (CK-2) 3.9 H Troponin I 0.17 H Total Protein Albumin TSH Urine Color Urine Appearance Urine pH Ur Specific [place] Urine Protein Urine Glucose (UA) Urine Ketones Urine Blood Urine Nitrite Urine Bilirubin Urine Urobilinogen Ur Leukocyte Esterase ASSESSMENT/PLAN: The patient is a 78 yo f w/ PMH Dementia, Afib on coumadin, CHF, DM, hyperthyroid who was BIBA from [place] for 3 days of lethargy and AMS #CAP -possible infiltrate on CXR -could explain leukocytosis and AMS even w/o fever -will treat empirically with Levaquin 750 daily IV as patient allergic to ampicillin -RPT CXR in AM w/ PA and lateral if patient can tolerate -Blood cultures and lactic acid STAT prior to abx administration #troponemia pablito 2/2 demand ischemia, r/o ACS -trop .16 -> .17 -EKG unchanged -patient denies chest pain at this time -will trend cardiac profile -consider cardiology involvement if trop continues to trend up #Afib -in NSR on admission EKG -INR theraputic -c/w home coumadin 2.5mg -c/w home diltiazem 360mg daily -daily INRs #DM -not on home medications -BGM, ISS ACHS #CHF -c/w home lasix 40mg daily -c/w home digoxin 125mg daily #Hyperthryoidism -check TSH; could be cause of AMS -c/w home methimazole 5mg daily #dementia -c/w home donepezil 5mg daily -consider contacting SNF in AM for more information of patient's baseline mental status #HTN- controlled -c/w home losartan 25mg daily #FEN -no fluids indicated -lytes WNL -diabetic diet #prophy -patient on therapeutic coumadin #dispo -admit tele -home medications verified with [place] records Visit type - Emergency Visit Emergency Visit: Yes ED Registration Date: 10/28/18 Care time: The patient presented to the Emergency Department on the above date and was hospitalized for further evaluation of their emergent condition. - New Patient This patient is new to me today: Yes Date on this admission: 10/28/18 - Critical Care Critical Care patient: No
--- NOTE | 2018-10-28 04:48 | PN ---
Teaching Attending Note Name of Resident: Koffi Smith ATTENDING PHYSICIAN STATEMENT I saw and evaluated the patient. I reviewed the resident's note and discussed the case with the resident. I agree with the resident's findings and plan as documented. SUBJECTIVE: This is a 78 year old woman with a history of COPD, atrial fib, bioprosthetic MVR, chronic systolic and diastolic heart failure, HTN, type 2 DM , hyperthyroidism, dementia who comes to the ED from [facility] with confusion and lethargy for the last 3 days. The patient is confused. She offers no complaints, but upon questioning, she reports having a productive cough. OBJECTIVE: Vital Signs Period Temp Pulse Resp BP Sys/[place] Pulse Ox Last 24 Hr 98.2 F 74 18 111/63 99 GENERAL: Alert, confused, slow to respond to questions HEART: S1S2, RRR LUNGS: Few crackles bilaterally ABDOMEN: Obese, soft, non-distended, ? SAMANTA tenderness EXTREMITIES: No edema Laboratory Tests 10/27/18 10/27/18 10/27/18 20:38 20:38 20:38 WBC 13.1 H RBC 4.20 Hgb 13.9 Hct 40.2 D MCV 95.8 MCH 33.0 D MCHC 34.5 RDW 16.5 H Plt Count 224 MPV 8.2 Absolute Neuts (auto) 10.5 H Total Counted 100 Neutrophils % 80.5 Neutrophils % (Manual) 78.0 Band Neutrophils % 1.0 Lymphocytes % 8.9 Lymphocytes % (Manual) 6.0 L Monocytes % 9.2 D Monocytes % (Manual) 9 D Eosinophils % 0.6 D Basophils % 0.8 D Nucleated RBC % 0 Differential Comment Man diff performed Platelet Estimate Adequate Platelet Comment Slide scanned. Polychromasia 1+ PT with INR 29.00 H INR 2.44 H PTT (Actin FS) 36.1 Sodium Potassium Chloride Carbon Dioxide Anion Gap BUN Creatinine Creat Clearance w eGFR Random Glucose Calcium Magnesium Total Bilirubin AST ALT Alkaline Phosphatase Creatine Kinase Creatine Kinase Index CK-MB (CK-2) Troponin I Total Protein Albumin TSH Urine Color Urine Appearance Urine pH Ur Specific [place] Urine Protein Urine Glucose (UA) Urine Ketones Urine Blood Urine Nitrite Urine Bilirubin Urine Urobilinogen Ur Leukocyte Esterase 10/27/18 10/27/18 10/27/18 20:38 20:38 23:56 WBC RBC Hgb Hct MCV MCH MCHC RDW Plt Count MPV Absolute Neuts (auto) Total Counted Neutrophils % Neutrophils % (Manual) Band Neutrophils % Lymphocytes % Lymphocytes % (Manual) Monocytes % Monocytes % (Manual) Eosinophils % Basophils % Nucleated RBC % Differential Comment Platelet Estimate Platelet Comment Polychromasia PT with INR INR PTT (Actin FS) Sodium 144 Potassium 3.8 Chloride 109 H Carbon Dioxide 27 Anion Gap 8 BUN 25 H Creatinine 0.8 Creat Clearance w eGFR > 60 Random Glucose 140 H Calcium 8.2 L Magnesium 2.1 Total Bilirubin 0.6 AST 22 ALT 14 Alkaline Phosphatase 50 Creatine Kinase 308 H Creatine Kinase Index 1.6 CK-MB (CK-2) 5.2 H Troponin I 0.16 H Total Protein 6.0 L Albumin 2.6 L TSH 0.64 Urine Color [place]elsy Urine Appearance Slcloudy Urine pH 5.0 Ur Specific [place] 1.027 Urine Protein Negative Urine Glucose (UA) Negative Urine Ketones Negative Urine Blood Negative Urine Nitrite Negative Urine Bilirubin 2.0 Urine Urobilinogen 4.0 e.u/dl H Ur Leukocyte Esterase Negative 10/28/18 01:19 WBC RBC Hgb Hct MCV MCH MCHC RDW Plt Count MPV Absolute Neuts (auto) Total Counted Neutrophils % Neutrophils % (Manual) Band Neutrophils % Lymphocytes % Lymphocytes % (Manual) Monocytes % Monocytes % (Manual) Eosinophils % Basophils % Nucleated RBC % Differential Comment Platelet Estimate Platelet Comment Polychromasia PT with INR INR PTT (Actin FS) Sodium Potassium Chloride Carbon Dioxide Anion Gap BUN Creatinine Creat Clearance w eGFR Random Glucose Calcium Magnesium Total Bilirubin AST ALT Alkaline Phosphatase Creatine Kinase 274 H Creatine Kinase Index 1.4 CK-MB (CK-2) 3.9 H Troponin I 0.17 H Total Protein Albumin TSH Urine Color Urine Appearance Urine pH Ur Specific [place] Urine Protein Urine Glucose (UA) Urine Ketones Urine Blood Urine Nitrite Urine Bilirubin Urine Urobilinogen Ur Leukocyte Esterase Home Medications Medication Instructions Recorded Diltiazem Cd [Cardizem Cd -] 360 mg PO DAILY tab 08/13/17 Furosemide [Lasix -] 40 mg PO DAILY #30 tablet 10/03/17 Methimazole [Tapazole -] 5 mg PO AM tablet 11/05/17 Digoxin 125 mcg PO HS 12/17/17 Donepezil HCl [Aricept] 5 mg PO HS 12/17/17 Losartan Potassium 25 mg PO HS 12/17/17 Warfarin Sodium 2.5 mg PO HS 12/17/17 Acetaminophen [Tylenol .Regular 650 mg PO Q4H PRN tablet 12/22/17 Strength -] Linaclotide [Linzess] 72 mcg PO DAILY #30 capsule 12/22/17 Megestrol Acetate [Megace -] 40 mg PO DAILY tablet 12/22/17 Polyethylene Glycol 3350 [Miralax 17 gm PO DAILY #1 bottle 12/22/17 (For Daily Use) -] ASSESSMENT AND PLAN: This is a 78 year old woman with a history of COPD, atrial fib, bioprosthetic MVR, chronic systolic and diastolic heart failure, HTN, type 2 DM, hyperthyroidism, dementia who was sent to the ED from [facility] for evaluation of confusion. 1. Probable toxic metabolic encephalopathy - No evidence of UTI - Possibly secondary to pneumonia - Check digoxin level 2. Possible pneumonia - Has leukocytosis and reports a productive cough - Will treat empirically - Oxygen as needed - DuoNeb as needed - Check lactic acid, blood cultures 3. Probable demand ischemia - Monitor on telemetry - Repeat troponin - Echocardiogram 4. COPD - DuoNeb as needed 5. History of atrial fibrillation - Currently in SR - Continue Cardizem CD, Digoxin, Coumadin 6. History of left IJ thrombosis 7. History of bioprosthetic mitral valve 8. Dementia - Continue Aricept 9. Chronic systolic and diastolic heart failure - Stable - Continue Lasix 10. HTN - Continue Cardizem CD, Cozaar 11. Type 2 DM - Fingersticks with Novolog sliding scale 12. Hyperthyroidism - TSH is ok - Continue Tapazole
[2018-10-28 06:25] LABS: HEMATOCRIT 39.1 % (32.4-45.2); HEMOGLOBIN 13.5 GM/dL (10.7-15.3); MCH 33.4 pg (25.7-33.7); MCHC 34.5 g/dl (32.0-36.0); MEAN CELL VOLUME 96.7 fl (80-96); MEAN PLT VOLUME 8.1 fl (7.5-11.1); PLATELET COUNT 193 K/MM3 (134-434); RBC 4.04 M/mm3 (3.60-5.2); RDW 16.5 % (11.6-15.6); WHITE BLOOD COUNT 10.3 K/mm3 (4.0-10.0)
[2018-10-28] MEDS: INSULIN SLIDING SCALE (NOVOLOG) 1 VIAL SQ SCH ×4 (07:02→21:53)
[2018-10-28 07:05] LABS: ANION GAP 8 MMOL/L (8-16); BLOOD UREA NITROGEN 24 mg/dL (7-18); CALCIUM 8.5 mg/dL (8.5-10.1); CHLORIDE 109 mmol/L (98-107); CO2 27 mmol/L (21-32); CREATININE 0.6 mg/dL (0.55-1.3); GLUCOSE,RANDOM 122 mg/dL (74-106); MAGNESIUM 2.3 mg/dL (1.8-2.4); PHOSPHOROUS 3.7 mg/dL (2.5-4.9); POTASSIUM 3.6 mmol/L (3.5-5.1); SODIUM 143 mmol/L (136-145)
--- NOTE | 2018-10-28 09:55 | EKG ---
Test Reason : Blood Pressure : / mmHG Vent. Rate : 072 BPM Atrial Rate : 072 BPM P-R Int : 246 ms QRS Dur : 082 ms QT Int : 356 ms P-R-T Axes : 061 -20 -06 degrees QTc Int : 389 ms SINUS RHYTHM WITH 1ST DEGREE A-V BLOCK NONSPECIFIC ST AND T WAVE ABNORMALITY ABNORMAL ECG WHEN COMPARED WITH ECG OF 17-DEC-2017 17:46, SINUS RHYTHM HAS REPLACED ATRIAL FIBRILLATION T WAVE INVERSION NO LONGER EVIDENT IN ANTERIOR LEADS Confirmed by JOSIE SLAUGHTER, ALBERTO ([id number]) on 10/28/2018 9:55:03 AM Referred By: Confirmed By:ALBERTO GALINDO MD
[2018-10-28] MEDS ORDERED: ACETAMINOPHEN 325 MG TABLET (FP) PO PRN (15:39)
--- NOTE | 2018-10-28 16:00 | PN ---
Progress Note, Physician Chief Complaint: AMS Elevated troponin History of Present Illness: KARLEY Trejo historian Sent in from SNF for AMS Afebrile mild leukocytosis CT head unremarkable EKG-SR with 1degree AV block, has hx of paroxysmal afib- On warfarin Hx of dementia - Current Medication List Current Medications: Active Medications Acetaminophen (Tylenol -) 650 mg PO Q4H PRN PRN Reason: FEVER Digoxin (Lanoxin -) 0.125 mg PO HS [facility] Diltiazem HCl (Cardizem Cd -) 360 mg PO DAILY BLESSING Furosemide (Lasix -) 40 mg PO DAILY BLESSING Levofloxacin (Levaquin 750 Mg Premixed Ivpb -) 750 mg in 150 mls @ 100 mls/hr IVPB DAILY [facility]; Protocol Last Admin: 10/28/18 05:22 Dose: 100 mls/hr Insulin Aspart (Novolog Vial Sliding Scale -) 1 vial SQ ACHS [facility]; Protocol Last Admin: 10/28/18 11:14 Dose: Not Given Losartan Potassium (Cozaar -) 25 mg PO HS [facility] Megestrol Acetate (Megace -) 40 mg PO DAILY [facility] Methimazole (Tapazole -) 5 mg PO AM [facility] Polyethylene Glycol (Miralax (For Daily Use) -) 17 gm PO DAILY [facility] Warfarin Sodium (Coumadin -) 4 mg PO DAILY@1800 BLESSING - Objective Vital Signs: Vital Signs Temperature 96 F L 10/28/18 14:55 Pulse Rate 71 10/28/18 14:55 Respiratory Rate 17 10/28/18 14:55 Blood Pressure 137/90 10/28/18 14:55 O2 Sat by Pulse Oximetry (%) 96 10/28/18 14:55 Constitutional: Yes: Well Nourished, No Distress, Calm Cardiovascular: Yes: Regular Rate and Rhythm Respiratory: Yes: Regular Gastrointestinal: Yes: Normal Bowel Sounds, Soft Musculoskeletal: Yes: Muscle Weakness Edema: No Peripheral Pulses WNL: Yes Neurological: Yes: Alert, Pre-Existing Deficit Psychiatric: Yes: Alert Labs: CBC, BMP 10/28/18 05:00 10/28/18 05:00 INR, PTT INR 2.44 (0.83-1.09) H 10/27/18 20:38 Problem List - Problems (1) VHD (valvular heart disease) Assessment/Plan: -Cardiology consult -On Warfarin -INR goal 2-3 -Monitor daily INR Code(s): I38 - ENDOCARDITIS, VALVE UNSPECIFIED (2) History of mitral valve replacement with bioprosthetic valve Assessment/Plan: -Cardiology consult -On Warfarin -INR goal 2-3 -Monitor daily INR Code(s): Z95.3 - PRESENCE OF XENOGENIC HEART VALVE (3) Diabetes Assessment/Plan: -Last A1c in 12/2017 at 6.5 -BGM AC HS -Novolog sliding scale -diabetic low sodium diet -repeat A1C Code(s): E11.9 - TYPE 2 DIABETES MELLITUS WITHOUT COMPLICATIONS (4) Altered mental status Assessment/Plan: -UC/BC pending -afebrile -Neurology consult -CT head unremarkable -MRI upon Neurology discretion -Check B12 Code(s): R41.82 - ALTERED MENTAL STATUS, UNSPECIFIED Qualifiers: Altered mental status type: somnolence Qualified Code(s): R40.0 - Somnolence (5) Metabolic encephalopathy Code(s): G93.41 - METABOLIC ENCEPHALOPATHY (6) Troponin level elevated Assessment/Plan: -no changes in EKG -differential-CHF, pericarditis, pulmonary htn -last echo in 2016 -repeat Echo+ EKG stat -cardiology consult -Tele monitoring -r/o ACS -d/c digoxin -start metoprolol Tart 25 mg po daily -Also initiate atorvastatin 10 mg po hs, last LDL 121 mg/dl -Check lipids in AM Code(s): R74.8 - ABNORMAL LEVELS OF OTHER SERUM ENZYMES (7) Paroxysmal A-fib Assessment/Plan: -In SR with 1st degree av block -cardiology consult -On warfarin-therapeutic Code(s): I48.0 - PAROXYSMAL ATRIAL FIBRILLATION Assessment/Plan See problem list Physical therapy
[2018-10-28 17:44] LABS: N-TERMINAL BNP 502.7 pg/ml (5-450)
[2018-10-28] MEDS: POLYETHYLENE GLYCOL 3350 119 GM BTL PO SCH (17:49)
[2018-10-28] MEDS: WARFARIN NA 2 MG TABLET (UD) PO SCH (17:49)
[2018-10-28] MEDS: METHIMAZOLE 5 MG TABLET (FP) PO SCH (17:49)
[2018-10-28] MEDS: FUROSEMIDE 40 MG TABLET (FP) PO SCH (17:49)
[2018-10-28] MEDS: MEGESTROL ACETATE 40 MG TABLET PO SCH (17:49)
[2018-10-28] MEDS: LOSARTAN POTASSIUM 25 MG TABLET PO SCH (21:53)
[2018-10-28] MEDS: ATORVASTATIN CA 10 MG TABLET (FP) PO SCH (21:53)
[2018-10-28] MEDS ORDERED: DIGOXIN 0.125 MG TABLET (FP) PO SCH (22:00)
[2018-10-29] MEDS: INSULIN SLIDING SCALE (NOVOLOG) 1 VIAL SQ SCH ×4 (06:07→22:35)
[2018-10-29] MEDS ORDERED: PT OWN MED DRAWER 7, Y5N ONE ×2 (06:13→10:29)
[2018-10-29 06:26] LABS: BASO % 0.4 % (0-2.0); HEMATOCRIT 34.2 % (32.4-45.2); HEMOGLOBIN 11.7 GM/dL (10.7-15.3); LYMPH % 12.2 % (8-40); MCH 33.1 pg (25.7-33.7); MCHC 34.3 g/dl (32.0-36.0); MEAN CELL VOLUME 96.6 fl (80-96); MEAN PLT VOLUME 8.3 fl (7.5-11.1); MONO % 7.1 % (3.8-10.2); NEUT % 79.3 % (42.8-82.8); PLATELET COUNT 195 K/MM3 (134-434); RBC 3.54 M/mm3 (3.60-5.2); RDW 15.9 % (11.6-15.6); WHITE BLOOD COUNT 10.9 K/mm3 (4.0-10.0)
[2018-10-29] MEDS: METHIMAZOLE 5 MG TABLET (FP) PO SCH (06:36)
[2018-10-29 07:20] LABS: INR 3.17 (0.83-1.09); PROTHROMBIN TIME (PATIENT) 37.8 SEC (9.7-13.0)
[2018-10-29 08:08] LABS: ALBUMIN 2.3 g/dl (3.4-5.0); ALK PHOS 44 U/L (45-117); ANION GAP 10 MMOL/L (8-16); BILIRUBIN,TOTAL 0.5 mg/dL (0.2-1); BLOOD UREA NITROGEN 17 mg/dL (7-18); CALCIUM 7.9 mg/dL (8.5-10.1); CHLORIDE 105 mmol/L (98-107); CO2 25 mmol/L (21-32); CREATININE 0.5 mg/dL (0.55-1.3); GLUCOSE,RANDOM 95 mg/dL (74-106); POTASSIUM 3.9 mmol/L (3.5-5.1); SGOT/AST 20 U/L (15-37); SGPT/ALT 15 U/L (13-61); SODIUM 140 mmol/L (136-145); TOT PROT 5.1 g/dl (6.4-8.2)
[2018-10-29 08:48] LABS: CHOLESTEROL 140 mg/dL (50-200); HDL CHOLESTEROL 32 mg/dL (40-60); TRIGLYCERIDES 82 mg/dL (0-150)
--- NOTE | 2018-10-29 09:24 | CONSULT ---
Consult - text type - Consultation Consultation Note: Neurology HISTORY OF PRESENT ILLNESS: 78 yo f w/ PMH Dementia, Afib on coumadin, bioprosthetic mitral valve replacement, CHF, DM, Hyperthyroidism and asthma who was BIBEMS from [facility] for a 3 day hx of AMS and lethargy. Per records, the patient had been having increasingly confused and hypersolomnent over 3 days. On interview, the patient was able to carry a limited conversation and denied any complaints. During my evaluation, she was awake, alert, interactive, knows she's in the hospital, can tell me it's 2019 but slow in responses. Presented with slightly increased WBC, CT head was negative, CXR suspicious for right infiltrate. Recent Travel: none PAST MEDICAL HISTORY: see HPI PAST SURGICAL HISTORY: bioprosthetic valve replacement tubal ligation Social History: Unable to obtain Family History: Non-contributory Allergies ampicillin [Ampicillin] Allergy (Severe, Verified 12/17/17 14:22) Swelling codeine [Codeine] Allergy (Verified 12/17/17 14:22) Swelling HOME MEDICATIONS: Home Medications Medication Instructions Recorded Diltiazem Cd [Cardizem Cd -] 360 mg PO DAILY tab 08/13/17 Furosemide [Lasix -] 40 mg PO DAILY #30 tablet 10/03/17 Methimazole [Tapazole -] 5 mg PO AM tablet 11/05/17 Digoxin 125 mcg PO HS 12/17/17 Donepezil HCl [Aricept] 5 mg PO HS 12/17/17 Losartan Potassium 25 mg PO HS 12/17/17 Warfarin Sodium 2.5 mg PO HS 12/17/17 Acetaminophen [Tylenol .Regular 650 mg PO Q4H PRN tablet 12/22/17 Strength -] Linaclotide [Linzess] 72 mcg PO DAILY #30 capsule 12/22/17 Megestrol Acetate [Megace -] 40 mg PO DAILY tablet 12/22/17 Polyethylene Glycol 3350 [Miralax 17 gm PO DAILY #1 bottle 12/22/17 (For Daily Use) -] REVIEW OF SYSTEMS CONSTITUTIONAL: Absent: fever, chills, diaphoresis, generalized weakness, malaise, loss of appetite, weight change HEENT: Absent: rhinorrhea, nasal congestion, throat pain, throat swelling, difficulty swallowing, mouth swelling, ear pain, eye pain, visual changes CARDIOVASCULAR: Absent: chest pain, syncope, palpitations, irregular heart rate, lightheadedness , peripheral edema RESPIRATORY: Absent: cough, shortness of breath, dyspnea with exertion, orthopnea, wheezing, stridor, hemoptysis GASTROINTESTINAL: Absent: abdominal pain, abdominal distension, nausea, vomiting, diarrhea, constipation, melena, hematochezia GENITOURINARY: Absent: dysuria, frequency, urgency, hesitancy, hematuria, flank pain, genital pain MUSCULOSKELETAL: Absent: myalgia, arthralgia, joint swelling, back pain, neck pain SKIN: Absent: rash, itching, pallor HEMATOLOGIC/IMMUNOLOGIC: Absent: easy bleeding, easy bruising, lymphadenopathy, frequent infections ENDOCRINE: Absent: unexplained weight gain, unexplained weight loss, heat intolerance, cold intolerance NEUROLOGIC: Absent: headache, focal weakness or paresthesias, dizziness, unsteady gait, seizure, mental status changes, bladder or bowel incontinence PSYCHIATRIC: Absent: anxiety, depression, suicidal or homicidal ideation, hallucinations. PHYSICAL EXAMINATION Vital Signs Period Temp Pulse Resp BP Sys/Urrutia Pulse Ox Last 24 Hr 96 F-98.4 F 65-84 16-18 106-137/65-90 96-98 GENERAL: Awake, alert, oriented to self and place only. Baseline unknown. Often confused as per [place] records HEAD: Normal with no signs of trauma. EYES: Pupils equal, round and reactive to light, extraocular movements intact, sclera anicteric, conjunctiva clear. No lid lag. LUNGS: Breath sounds equal, Mild crackles b/l. No accessory muscle use. HEART: Regular rate and rhythm, normal S1 and S2 without murmur, rub or gallop. ABDOMEN: Soft, nontender, not distended, normoactive bowel sounds, no guarding, no rebound, no masses. No hepatomegaly or splenomegaly. LOWER EXTREMITIES: 2+ pulses, warm, well-perfused. No calf tenderness. No peripheral edema. NEUROLOGICAL: Cranial nerves II-X intact. Hard to understand speech. responses to questions delayed. SKIN: Warm, dry, normal turgor, no rashes or lesions noted, normal capillary refill. No pressure ulcers noted. CBCD WBC 10.9 K/mm3 (4.0-10.0) H 10/29/18 06:00 RBC 3.54 M/mm3 (3.60-5.2) L 10/29/18 06:00 Hgb 11.7 GM/dL (10.7-15.3) 10/29/18 06:00 Hct 34.2 % (32.4-45.2) 10/29/18 06:00 MCV 96.6 fl (80-96) H 10/29/18 06:00 MCHC 34.3 g/dl (32.0-36.0) 10/29/18 06:00 RDW 15.9 % (11.6-15.6) H 10/29/18 06:00 Plt Count 195 K/MM3 (134-434) 10/29/18 06:00 MPV 8.3 fl (7.5-11.1) 10/29/18 06:00 CMP Sodium 140 mmol/L (136-145) 10/29/18 06:00 Potassium 3.9 mmol/L (3.5-5.1) 10/29/18 06:00 Chloride 105 mmol/L (98-107) 10/29/18 06:00 Carbon Dioxide 25 mmol/L (21-32) 10/29/18 06:00 Anion Gap 10 MMOL/L (8-16) 10/29/18 06:00 BUN 17 mg/dL (7-18) 10/29/18 06:00 Creatinine 0.5 mg/dL (0.55-1.3) L 10/29/18 06:00 Creat Clearance w eGFR > 60 (>60) 10/29/18 06:00 Random Glucose 95 mg/dL (74-106) 10/29/18 06:00 Calcium 7.9 mg/dL (8.5-10.1) L 10/29/18 06:00 Total Bilirubin 0.5 mg/dL (0.2-1) 10/29/18 06:00 AST 20 U/L (15-37) 10/29/18 06:00 ALT 15 U/L (13-61) 10/29/18 06:00 Alkaline Phosphatase 44 U/L (45-117) L 10/29/18 06:00 Total Protein 5.1 g/dl (6.4-8.2) L 10/29/18 06:00 Albumin 2.3 g/dl (3.4-5.0) L 10/29/18 06:00 CARDIAC ENZYMES Creatine Kinase 248 IU/L (26-192) H 10/28/18 05:00 Troponin I 0.16 ng/ml (0.00-0.05) H 10/28/18 05:00 ASSESSMENT/PLAN: 78 yo f w/ PMH Dementia, Afib on coumadin, bioprosthetic mitral valve replacement, CHF, DM, Hyperthyroidism and asthma who was BIBEMS from [facility] for a 3 day hx of AMS and lethargy. Per records, the patient had been having increasingly confused and hypersolomnent over 3 days. On interview, the patient was able to carry a limited conversation and denied any complaints. During my evaluation, she was awake, alert, interactive, knows she's in the hospital, can tell me it's 2019 but slow in responses. Presented with slightly increased WBC, CT head was negative, CXR suspicious for right infiltrate. Continue medical optimization, appears to be improving mental status. Monitor Afib, INR. Maintain euglycemic range. Can continue Donepizil at current dose, likely superimposed delirium on dementia.
[2018-10-29 09:44] LABS: ANISOCYTOSIS 1+; MACROCYTOSIS 1+; OVALOCYTE 1+; PLATELET ESTIMATE NORMAL
[2018-10-29] MEDS: FUROSEMIDE 40 MG TABLET (FP) PO SCH (10:25)
[2018-10-29] MEDS: POLYETHYLENE GLYCOL 3350 119 GM BTL PO SCH (10:26)
[2018-10-29] MEDS: METOPROLOL TARTRATE 25 MG TABLET (FP) PO SCH (10:26)
--- NOTE | 2018-10-29 11:57 | EKG ---
Test Reason : Blood Pressure : / mmHG Vent. Rate : 079 BPM Atrial Rate : 079 BPM P-R Int : 208 ms QRS Dur : 078 ms QT Int : 484 ms P-R-T Axes : 080 -25 -01 degrees QTc Int : 554 ms POOR DATA QUALITY, INTERPRETATION MAY BE ADVERSELY AFFECTED NORMAL SINUS RHYTHM POSSIBLE ANTERIOR INFARCT , AGE UNDETERMINED ABNORMAL ECG NO PREVIOUS ECGS AVAILABLE Confirmed by YUDELKA SLAUGHTER, SHARAD ([id number]) on 10/29/2018 11:57:30 AM Referred By: Confirmed By:SHARAD JHA MD
[2018-10-29] MEDS: MEGESTROL ACETATE 40 MG TABLET PO SCH (12:48)
--- NOTE | 2018-10-29 13:46 | PN ---
Progress Note, Physician Chief Complaint: AMS Elevated troponin History of Present Illness: Previous notes and events reviewed awake and alert NAD denies chest pain or SOB - Current Medication List Current Medications: Active Medications Acetaminophen (Tylenol -) 650 mg PO Q4H PRN PRN Reason: FEVER Atorvastatin Calcium (Lipitor -) 10 mg PO HS [facility] Last Admin: 10/28/18 21:53 Dose: 10 mg Diltiazem HCl (Cardizem Cd -) 360 mg PO DAILY [facility] Last Admin: 10/29/18 10:25 Dose: 360 mg Donepezil HCl (Aricept -) 5 mg PO HS [facility] Furosemide (Lasix -) 40 mg PO DAILY [facility] Last Admin: 10/29/18 10:25 Dose: 40 mg Levofloxacin (Levaquin 750 Mg Premixed Ivpb -) 750 mg in 150 mls @ 100 mls/hr IVPB DAILY [facility]; Protocol Last Admin: 10/29/18 10:26 Dose: 100 mls/hr Insulin Aspart (Novolog Vial Sliding Scale -) 1 vial SQ ACHS [facility]; Protocol Last Admin: 10/29/18 12:49 Dose: Not Given Losartan Potassium (Cozaar -) 25 mg PO HS [facility] Last Admin: 10/28/18 21:53 Dose: 25 mg Megestrol Acetate (Megace -) 40 mg PO DAILY [facility] Last Admin: 10/29/18 12:48 Dose: 40 mg Methimazole (Tapazole -) 5 mg PO AM [facility] Last Admin: 10/29/18 06:36 Dose: 5 mg Metoprolol Tartrate (Lopressor -) 25 mg PO DAILY [facility] Last Admin: 10/29/18 10:26 Dose: 25 mg Polyethylene Glycol (Miralax (For Daily Use) -) 17 gm PO DAILY [facility] Last Admin: 10/29/18 10:26 Dose: 17 gm Warfarin Sodium (Coumadin -) 4 mg PO DAILY@1800 [facility] Last Admin: 10/28/18 17:49 Dose: 4 mg - Objective Vital Signs: Vital Signs Temperature 98.0 F 10/29/18 06:00 Pulse Rate 65 10/29/18 06:00 Respiratory Rate 18 10/29/18 06:00 Blood Pressure 113/66 10/29/18 06:00 O2 Sat by Pulse Oximetry (%) 96 10/28/18 21:00 Constitutional: Yes: Well Nourished, No Distress, Calm Eyes: Yes: Conjunctiva Clear Cardiovascular: Yes: Regular Rate and Rhythm Respiratory: Yes: Regular, CTA Bilaterally Gastrointestinal: Yes: Normal Bowel Sounds, Soft ...Rectal Exam: Yes: WNL Genitourinary: Yes: Incontinence Musculoskeletal: Yes: Muscle Weakness Extremities: Yes: WNL Edema: Yes Edema: RLE: 1+ Integumentary: Yes: WNL Neurological: Yes: Alert, Confusion (does not know year or which state she lives ) Psychiatric: Yes: Alert Labs: CBC, BMP 10/29/18 06:00 10/29/18 06:00 INR, PTT INR 3.17 (0.83-1.09) H 10/29/18 06:00 <Sarah Resendez - Last Filed: 10/29/18 14:04> - Current Medication List Current Medications: Active Medications Acetaminophen (Tylenol -) 650 mg PO Q4H PRN PRN Reason: FEVER Albuterol Sulfate (Ventolin 0.083% Nebulizer Soln -) 1 amp NEB Q4H PRN PRN Reason: SHORT OF BREATH/WHEEZING Last Admin: 10/30/18 16:16 Dose: 1 amp Atorvastatin Calcium (Lipitor -) 10 mg PO HS [facility] Last Admin: 10/29/18 22:36 Dose: 10 mg Diltiazem HCl (Cardizem Cd -) 360 mg PO DAILY [facility] Last Admin: 10/30/18 10:08 Dose: 360 mg Donepezil HCl (Aricept -) 5 mg PO HS [facility] Last Admin: 10/29/18 22:36 Dose: 5 mg Furosemide (Lasix -) 40 mg PO DAILY [facility] Last Admin: 10/30/18 10:04 Dose: 40 mg Levofloxacin (Levaquin 750 Mg Premixed Ivpb -) 750 mg in 150 mls @ 100 mls/hr IVPB DAILY [facility]; Protocol Last Admin: 10/30/18 10:04 Dose: 100 mls/hr Insulin Aspart (Novolog Vial Sliding Scale -) 1 vial SQ ACHS [facility]; Protocol Last Admin: 10/30/18 17:16 Dose: Not Given Losartan Potassium (Cozaar -) 25 mg PO HS [facility] Last Admin: 10/29/18 22:36 Dose: 25 mg Megestrol Acetate (Megace -) 40 mg PO DAILY [facility] Last Admin: 10/30/18 10:13 Dose: 40 mg Methimazole (Tapazole -) 5 mg PO AM [facility] Last Admin: 10/30/18 06:07 Dose: 5 mg Metoprolol Tartrate (Lopressor -) 25 mg PO DAILY [facility] Last Admin: 10/30/18 10:04 Dose: 25 mg Polyethylene Glycol (Miralax (For Daily Use) -) 17 gm PO DAILY [facility] Last Admin: 10/30/18 10:09 Dose: 17 gm Warfarin Sodium (Coumadin -) 4 mg PO DAILY@1800 [facility] Last Admin: 10/30/18 17:17 Dose: 4 mg - Objective Vital Signs: Vital Signs Temperature 98.0 F 10/30/18 18:00 Pulse Rate 67 10/30/18 18:00 Respiratory Rate 19 10/30/18 18:00 Blood Pressure 100/63 10/30/18 18:00 O2 Sat by Pulse Oximetry (%) 97 10/30/18 08:55 Labs: CBC, BMP 10/30/18 05:30 10/30/18 05:30 INR, PTT INR 2.86 (0.83-1.09) H 10/30/18 05:30 <Darline Salinas - Last Filed: 10/30/18 21:01> Problem List - Problems (1) Altered mental status Code(s): R41.82 - ALTERED MENTAL STATUS, UNSPECIFIED Qualifiers: Altered mental status type: somnolence Qualified Code(s): R40.0 - Somnolence (2) Paroxysmal A-fib Code(s): I48.0 - PAROXYSMAL ATRIAL FIBRILLATION (3) Troponin level elevated Code(s): R74.8 - ABNORMAL LEVELS OF OTHER SERUM ENZYMES (4) Abdominal pain Code(s): R10.9 - UNSPECIFIED ABDOMINAL PAIN (5) Acute exacerbation of CHF (congestive heart failure) Code(s): I50.9 - HEART FAILURE, UNSPECIFIED (6) Acute on chronic diastolic (congestive) heart failure Code(s): I50.33 - ACUTE ON CHRONIC DIASTOLIC (CONGESTIVE) HEART FAILURE (7) Hypertension Code(s): I10 - ESSENTIAL (PRIMARY) HYPERTENSION Qualifiers: Hypertension type: essential hypertension Qualified Code(s): I10 - Essential (primary) hypertension (8) Hyperthyroidism Code(s): E05.90 - THYROTOXICOSIS, UNSP WITHOUT THYROTOXIC CRISIS OR STORM <Sarah Resendez - Last Filed: 10/29/18 14:04> Assessment/Plan -Cardiology consult made -troponin elev, will repeat to monitor for downtrend -pending echocardiogram -cont with coumadin, monitor INR daily, INR 2-3 -tele monitoring -cont metoprolol daily -on atorvastatin 10mg hs, lipid panel ordered -BGM ISS -low sodium/diabetic diet -cont IV ABT -neurology recommendations appreciated, started back on Donepazil -fall precaution -dvt ppx <Sarah Resendez - Last Filed: 10/29/18 14:04> I HAVE EXAMINED THE PATIENT AND AGRE WITH THE ABOVE NOTE <Darline Salinas - Last Filed: 10/30/18 21:01>
--- NOTE | 2018-10-29 16:27 | ECHO ---
Name: NILES PITT Exam:Adult Echocardiogram Study Date: 10/29/2018 01:56 PM Age: 78 yrs Reason For Study: Arrhythmia Height: 68 in Weight: 200 lb BSA: 2.0 m2 MMode/2D Measurements & Calculations IVSd: 1.4 cm Ao root diam: 2.8 cm LVIDd: 3.3 cm LA dimension: 4.3 cm LVIDs: 2.2 cm LVPWd: 0.92 cm EDV(Teich): 45.0 ml LAV (MOD-bp): 58.5 ml ESV(Teich): 16.5 ml Doppler Measurements & Calculations MV E max raul: 150.0 cm/sec MR max raul: 198.0 cm/sec MV A max raul: 48.4 cm/sec MR max P.9 mmHg MV E/A: 3.1 MV dec time: 0.17 sec TR max raul: 258.3 cm/sec Med Peak E' Raul: 6.5 cm/sec TR max P.8 mmHg Med E/e': 23.0 Lat Peak E' Raul: 6.7 cm/sec Lat E/e': 22.2 PI Vmax: 163.5 cm/sec Procedure A complete two-dimensional transthoracic echocardiogram was performed (2D, M-mode, Doppler and color flow Doppler). Left Ventricle The left ventricular size, thickness and function are normal. The left ventricular ejection fraction is normal. Ejection Fraction = 60-65%. The left ventricular wall motion is normal. Right Ventricle The right ventricle is normal in size and function. Atria The left atrium is mildly dilated. The right atrium is mildly dilated. Mitral Valve There is mild mitral regurgitation. Tricuspid Valve There is moderate tricuspid regurgitation. Right ventricular systolic pressure is normal. Aortic Valve The aortic valve is trileaflet. No hemodynamically significant valvular aortic stenosis. No aortic regurgitation is present. Pulmonic Valve There is no pulmonic valvular regurgitation. Great Vessels The aortic root is normal size. Pericardium/Pleura There is no pericardial effusion. Interpretation Summary The left ventricular size, thickness and function are normal The right ventricle is normal in size and function. The left atrium is mildly dilated. The right atrium is mildly dilated. There is mild mitral regurgitation. There is moderate tricuspid regurgitation. MD Aime Grajeda 10/29/2018 04:27 PM
--- NOTE | 2018-10-29 16:34 | CON.CARD ---
Consult Consult Specialty:: Cardiology Reason for Consultation:: Positive troponins - History of Present Illness History of Present Illness: This is a 78 year old female with a PMH of Dementia, AFIB on coumadin, CHF, DM Hyperthyroidism, Fatty Liver, and asthma. She was sent here [facility] for hypersomnolence and decline in function. Noted to have positive troponin levels. 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 No: Diabetes Mellitus Additional Medical History: LEFT POPLITEAL DVT - Past Surgical History Past Surgical History: Yes: Tubal Ligation (laparoscopic), Valve Replacement ( mechanical mitral 2 wks ago) - Alcohol/Substance Use Hx Alcohol Use: No History of Substance Use: reports: None - Smoking History Smoking history: Unknown if ever smoked Have you smoked in the past 12 months: No Aproximately how many cigarettes per day: 0 - Social History Usual Living Arrangement: [facility] ADL: Independent History of Recent Travel: No Home Medications - Allergies Allergies/Adverse Reactions: Allergies Allergy/AdvReac Type Severity Reaction Status Date / Time ampicillin [Ampicillin] Allergy Severe Swelling Verified 12/17/17 14:22 codeine [Codeine] Allergy Swelling Verified 12/17/17 14:22 - Home Medications Home Medications: Ambulatory Orders Diltiazem Cd [Cardizem Cd -] 360 mg PO DAILY tab 08/13/17 Furosemide [Lasix -] 40 mg PO DAILY #30 tablet 10/03/17 Methimazole [Tapazole -] 5 mg PO AM tablet 11/05/17 Digoxin 125 mcg PO HS 12/17/17 Donepezil HCl [Aricept] 5 mg PO HS 12/17/17 Losartan Potassium 25 mg PO HS 12/17/17 Warfarin Sodium 2.5 mg PO HS 12/17/17 Acetaminophen [Tylenol .Regular Strength -] 650 mg PO Q4H PRN tablet 12/22/17 Linaclotide [Linzess] 72 mcg PO DAILY #30 capsule 12/22/17 Megestrol Acetate [Megace -] 40 mg PO DAILY tablet 12/22/17 Polyethylene Glycol 3350 [Miralax (For Daily Use) -] 17 gm PO DAILY #1 bottle Family Disease History - Family Disease History Family Disease History: Diabetes: Father (HTN) Vital Signs: Vital Signs Temperature 98.5 F 10/29/18 14:15 Pulse Rate 70 10/29/18 14:15 Respiratory Rate 18 10/29/18 14:15 Blood Pressure 112/52 L 10/29/18 14:15 O2 Sat by Pulse Oximetry (%) 96 10/28/18 21:00 Constitutional: Yes: Other (Sleeping) HENT: Yes: WNL Neck: Yes: WNL Respiratory: Yes: CTA Bilaterally Gastrointestinal: Yes: Soft Cardiovascular: Yes: Regular Rate and Rhythm Heart Sounds: Yes: S1, S2 Extremities: Yes: WNL Neurological: Yes: Lethargy - Other Data Labs, Other Data: CBC, BMP 10/29/18 06:00 10/29/18 06:00 INR, PTT INR 3.17 (0.83-1.09) H 10/29/18 06:00 Troponin, BNP 10/28/18 05:00 B-Natriuretic Peptide 502.7 H Troponin, BNP 10/28/18 05:00 B-Natriuretic Peptide 502.7 H Assessment/Plan 78 year old female with a PMH of Dementia, AFIB on coumadin, CHF, DM Hyperthyroidism, Fatty Liver, and asthma. She was sent here [facility] for hypersomnolence and decline in function. Noted to have positive troponin levels. Troponins 0.16, 0.17, 0.16 Troponins had been elevated in the past Echocardiogram 10/29/18 showing normal LV function, EF 60 - 65% EKG NSR with LAD, and no acute changes. WBC 13.1 Would opt for conservative care, demand ischemia and not an acute coronary syndrome Continue medical therapy with Losartan/metoprolol/Cardizem AFIB Now in NSR Continue coumadin, INR goal 2 - 3
[2018-10-29] MEDS: WARFARIN NA 2 MG TABLET (UD) PO SCH (17:37)
[2018-10-29] MEDS: ATORVASTATIN CA 10 MG TABLET (FP) PO SCH (22:36)
[2018-10-29] MEDS: DONEPEZIL HCL 5 MG TABLET (FP) PO SCH (22:36)
[2018-10-29] MEDS: LOSARTAN POTASSIUM 25 MG TABLET PO SCH (22:36)
[2018-10-30] MEDS: METHIMAZOLE 5 MG TABLET (FP) PO SCH (06:07)
[2018-10-30] MEDS: INSULIN SLIDING SCALE (NOVOLOG) 1 VIAL SQ SCH ×4 (06:10→21:47)
[2018-10-30 06:24] LABS: BASO % 0.5 % (0-2.0); HEMATOCRIT 33.8 % (32.4-45.2); HEMOGLOBIN 11.7 GM/dL (10.7-15.3); LYMPH % 13.1 % (8-40); MCH 33.1 pg (25.7-33.7); MCHC 34.6 g/dl (32.0-36.0); MEAN CELL VOLUME 95.6 fl (80-96); MEAN PLT VOLUME 8.1 fl (7.5-11.1); MONO % 8.7 % (3.8-10.2); NEUT % 76.7 % (42.8-82.8); PLATELET COUNT 207 K/MM3 (134-434); RBC 3.54 M/mm3 (3.60-5.2); RDW 15.7 % (11.6-15.6); WHITE BLOOD COUNT 10.6 K/mm3 (4.0-10.0)
[2018-10-30 06:37] LABS: INR 2.86 (0.83-1.09); PROTHROMBIN TIME (PATIENT) 34.1 SEC (9.7-13.0)
[2018-10-30 06:55] LABS: ALBUMIN 2.3 g/dl (3.4-5.0); ALK PHOS 41 U/L (45-117); ANION GAP 7 MMOL/L (8-16); BILIRUBIN,TOTAL 0.4 mg/dL (0.2-1); BLOOD UREA NITROGEN 21 mg/dL (7-18); CALCIUM 7.9 mg/dL (8.5-10.1); CHLORIDE 103 mmol/L (98-107); CO2 27 mmol/L (21-32); CREATININE 0.6 mg/dL (0.55-1.3); GLUCOSE,RANDOM 110 mg/dL (74-106); POTASSIUM 4.2 mmol/L (3.5-5.1); SGOT/AST 16 U/L (15-37); SGPT/ALT 15 U/L (13-61); SODIUM 138 mmol/L (136-145); TOT PROT 5.3 g/dl (6.4-8.2)
[2018-10-30] MEDS ORDERED: PT OWN MED DRAWER 7, Y5N ONE (08:50)
--- NOTE | 2018-10-30 09:03 | PN ---
Progress Note (short form) - Note Progress Note: Neurology HISTORY OF PRESENT ILLNESS: 78 yo f w/ PMH Dementia, Afib on coumadin, bioprosthetic mitral valve replacement, CHF, DM, Hyperthyroidism and asthma who was BIBEMS from [facility] for a 3 day hx of AMS and lethargy. Per records, the patient had been having increasingly confused and hypersolomnent over 3 days. On interview, the patient was able to carry a limited conversation and denied any complaints. During my evaluation, she was awake, alert, interactive, knows she's in the hospital, can tell me it's 2019 but slow in responses. Presented with slightly increased WBC, CT head was negative, CXR suspicious for right infiltrate. Is more awake, alert, knows she's in the hospital, seems to be close to baseline. Allergies ampicillin [Ampicillin] Allergy (Severe, Verified 12/17/17 14:22) Swelling codeine [Codeine] Allergy (Verified 12/17/17 14:22) Swelling Active Medications Acetaminophen (Tylenol -) 650 mg PO Q4H PRN PRN Reason: FEVER Atorvastatin Calcium (Lipitor -) 10 mg PO HS [facility] Last Admin: 10/29/18 22:36 Dose: 10 mg Diltiazem HCl (Cardizem Cd -) 360 mg PO DAILY [facility] Last Admin: 10/29/18 10:25 Dose: 360 mg Donepezil HCl (Aricept -) 5 mg PO HS [facility] Last Admin: 10/29/18 22:36 Dose: 5 mg Furosemide (Lasix -) 40 mg PO DAILY [facility] Last Admin: 10/29/18 10:25 Dose: 40 mg Levofloxacin (Levaquin 750 Mg Premixed Ivpb -) 750 mg in 150 mls @ 100 mls/hr IVPB DAILY [facility]; Protocol Last Admin: 10/29/18 10:26 Dose: 100 mls/hr Insulin Aspart (Novolog Vial Sliding Scale -) 1 vial SQ ACHS [facility]; Protocol Last Admin: 10/30/18 06:10 Dose: Not Given Losartan Potassium (Cozaar -) 25 mg PO HS [facility] Last Admin: 10/29/18 22:36 Dose: 25 mg Megestrol Acetate (Megace -) 40 mg PO DAILY [facility] Last Admin: 10/29/18 12:48 Dose: 40 mg Methimazole (Tapazole -) 5 mg PO AM [facility] Last Admin: 10/30/18 06:07 Dose: 5 mg Metoprolol Tartrate (Lopressor -) 25 mg PO DAILY [facility] Last Admin: 10/29/18 10:26 Dose: 25 mg Polyethylene Glycol (Miralax (For Daily Use) -) 17 gm PO DAILY [facility] Last Admin: 10/29/18 10:26 Dose: 17 gm Warfarin Sodium (Coumadin -) 4 mg PO DAILY@1800 [facility] Last Admin: 10/29/18 17:37 Dose: 4 mg PHYSICAL EXAMINATION Vital Signs Period Temp Pulse Resp BP Sys/Urrutia Pulse Ox Last 24 Hr 97.9 F-98.5 F 64-74 18-20 101-112/52-64 98 GENERAL: Awake, alert, oriented to self and place only. Baseline unknown. Often confused as per [place] records HEAD: Normal with no signs of trauma. EYES: Pupils equal, round and reactive to light, extraocular movements intact, sclera anicteric, conjunctiva clear. No lid lag. LUNGS: Breath sounds equal, Mild crackles b/l. No accessory muscle use. HEART: Regular rate and rhythm, normal S1 and S2 without murmur, rub or gallop. ABDOMEN: Soft, nontender, not distended, normoactive bowel sounds, no guarding, no rebound, no masses. No hepatomegaly or splenomegaly. LOWER EXTREMITIES: 2+ pulses, warm, well-perfused. No calf tenderness. No peripheral edema. NEUROLOGICAL: Cranial nerves II-X intact. Hard to understand speech. responses to questions delayed. SKIN: Warm, dry, normal turgor, no rashes or lesions noted, normal capillary refill. No pressure ulcers noted. CBCD WBC 10.6 K/mm3 (4.0-10.0) H 10/30/18 05:30 RBC 3.54 M/mm3 (3.60-5.2) L 10/30/18 05:30 Hgb 11.7 GM/dL (10.7-15.3) 10/30/18 05:30 Hct 33.8 % (32.4-45.2) 10/30/18 05:30 MCV 95.6 fl (80-96) 10/30/18 05:30 MCHC 34.6 g/dl (32.0-36.0) 10/30/18 05:30 RDW 15.7 % (11.6-15.6) H 10/30/18 05:30 Plt Count 207 K/MM3 (134-434) 10/30/18 05:30 MPV 8.1 fl (7.5-11.1) 10/30/18 05:30 CMP Sodium 138 mmol/L (136-145) 10/30/18 05:30 Potassium 4.2 mmol/L (3.5-5.1) 10/30/18 05:30 Chloride 103 mmol/L (98-107) 10/30/18 05:30 Carbon Dioxide 27 mmol/L (21-32) 10/30/18 05:30 Anion Gap 7 MMOL/L (8-16) L 10/30/18 05:30 BUN 21 mg/dL (7-18) H 10/30/18 05:30 Creatinine 0.6 mg/dL (0.55-1.3) 10/30/18 05:30 Creat Clearance w eGFR > 60 (>60) 10/30/18 05:30 Random Glucose 110 mg/dL (74-106) H 10/30/18 05:30 Calcium 7.9 mg/dL (8.5-10.1) L 10/30/18 05:30 Total Bilirubin 0.4 mg/dL (0.2-1) 10/30/18 05:30 AST 16 U/L (15-37) 10/30/18 05:30 ALT 15 U/L (13-61) 10/30/18 05:30 Alkaline Phosphatase 41 U/L (45-117) L 10/30/18 05:30 Total Protein 5.3 g/dl (6.4-8.2) L 10/30/18 05:30 Albumin 2.3 g/dl (3.4-5.0) L 10/30/18 05:30 CARDIAC ENZYMES Creatine Kinase 248 IU/L (26-192) H 10/28/18 05:00 Troponin I 0.16 ng/ml (0.00-0.05) H 10/28/18 05:00 ASSESSMENT/PLAN: 78 yo f w/ PMH Dementia, Afib on coumadin, bioprosthetic mitral valve replacement, CHF, DM, Hyperthyroidism and asthma who was BIBEMS from [facility] [place] for a 3 day hx of AMS and lethargy. Per records, the patient had been having increasingly confused and hypersolomnent over 3 days. On interview, the patient was able to carry a limited conversation and denied any complaints. During my evaluation, she was awake, alert, interactive, knows she's in the hospital, can tell me it's 2019 but slow in responses. Presented with slightly increased WBC, CT head was negative, CXR suspicious for right infiltrate. Continue medical optimization, appears to have improved mental status. Monitor Afib, INR. Maintain euglycemic range. Restarted on Donepizil at current dose, likely superimposed delirium on dementia. Advised her to make outpatient follow up appt for formal memory testing.
[2018-10-30 09:37] LABS: ANISOCYTOSIS 0; MACROCYTOSIS 0; PLATELET ESTIMATE NORMAL
[2018-10-30] MEDS: FUROSEMIDE 40 MG TABLET (FP) PO SCH (10:04)
[2018-10-30] MEDS: METOPROLOL TARTRATE 25 MG TABLET (FP) PO SCH (10:04)
[2018-10-30] MEDS: POLYETHYLENE GLYCOL 3350 119 GM BTL PO SCH (10:09)
[2018-10-30] MEDS: MEGESTROL ACETATE 40 MG TABLET PO SCH (10:13)
--- NOTE | 2018-10-30 12:04 | PN ---
Progress Note, Physician Chief Complaint: AMS Elevated troponin History of Present Illness: Previous notes and events reviewed awake and alert NAD denies chest pain or SOB WBC elev but trending down Echo show EF 60-65% - Current Medication List Current Medications: Active Medications Acetaminophen (Tylenol -) 650 mg PO Q4H PRN PRN Reason: FEVER Atorvastatin Calcium (Lipitor -) 10 mg PO HS [facility] Last Admin: 10/29/18 22:36 Dose: 10 mg Diltiazem HCl (Cardizem Cd -) 360 mg PO DAILY [facility] Last Admin: 10/30/18 10:08 Dose: 360 mg Donepezil HCl (Aricept -) 5 mg PO HS [facility] Last Admin: 10/29/18 22:36 Dose: 5 mg Furosemide (Lasix -) 40 mg PO DAILY [facility] Last Admin: 10/30/18 10:04 Dose: 40 mg Levofloxacin (Levaquin 750 Mg Premixed Ivpb -) 750 mg in 150 mls @ 100 mls/hr IVPB DAILY [facility]; Protocol Last Admin: 10/30/18 10:04 Dose: 100 mls/hr Insulin Aspart (Novolog Vial Sliding Scale -) 1 vial SQ ACHS [facility]; Protocol Last Admin: 10/30/18 11:07 Dose: Not Given Losartan Potassium (Cozaar -) 25 mg PO HS [facility] Last Admin: 10/29/18 22:36 Dose: 25 mg Megestrol Acetate (Megace -) 40 mg PO DAILY [facility] Last Admin: 10/30/18 10:13 Dose: 40 mg Methimazole (Tapazole -) 5 mg PO AM [facility] Last Admin: 10/30/18 06:07 Dose: 5 mg Metoprolol Tartrate (Lopressor -) 25 mg PO DAILY [facility] Last Admin: 10/30/18 10:04 Dose: 25 mg Polyethylene Glycol (Miralax (For Daily Use) -) 17 gm PO DAILY [facility] Last Admin: 10/30/18 10:09 Dose: 17 gm Warfarin Sodium (Coumadin -) 4 mg PO DAILY@1800 [facility] Last Admin: 10/29/18 17:37 Dose: 4 mg - Objective Vital Signs: Vital Signs Temperature 98.0 F 10/30/18 10:00 Pulse Rate 66 10/30/18 10:00 Respiratory Rate 18 10/30/18 10:00 Blood Pressure 130/70 10/30/18 10:00 O2 Sat by Pulse Oximetry (%) 98 10/29/18 20:08 Constitutional: Yes: Well Nourished, No Distress, Calm Eyes: Yes: Conjunctiva Clear Neck: Yes: Supple Cardiovascular: Yes: Regular Rate and Rhythm Respiratory: Yes: Wheezes Gastrointestinal: Yes: Normal Bowel Sounds, Soft Genitourinary: Yes: Incontinence Musculoskeletal: Yes: Muscle Weakness Extremities: Yes: WNL Edema: Yes Edema: RLE: 2+ Integumentary: Yes: WNL Neurological: Yes: Alert, Pre-Existing Deficit Labs: CBC, BMP 10/30/18 05:30 10/30/18 05:30 INR, PTT INR 2.86 (0.83-1.09) H 10/30/18 05:30 <Sarah Resendez - Last Filed: 10/30/18 12:04> - Current Medication List Current Medications: Active Medications Acetaminophen (Tylenol -) 650 mg PO Q4H PRN PRN Reason: FEVER Albuterol Sulfate (Ventolin 0.083% Nebulizer Soln -) 1 amp NEB Q4H PRN PRN Reason: SHORT OF BREATH/WHEEZING Last Admin: 10/30/18 16:16 Dose: 1 amp Atorvastatin Calcium (Lipitor -) 10 mg PO HS [facility] Last Admin: 10/29/18 22:36 Dose: 10 mg Diltiazem HCl (Cardizem Cd -) 360 mg PO DAILY [facility] Last Admin: 10/30/18 10:08 Dose: 360 mg Donepezil HCl (Aricept -) 5 mg PO HS [facility] Last Admin: 10/29/18 22:36 Dose: 5 mg Furosemide (Lasix -) 40 mg PO DAILY [facility] Last Admin: 10/30/18 10:04 Dose: 40 mg Levofloxacin (Levaquin 750 Mg Premixed Ivpb -) 750 mg in 150 mls @ 100 mls/hr IVPB DAILY [facility]; Protocol Last Admin: 10/30/18 10:04 Dose: 100 mls/hr Insulin Aspart (Novolog Vial Sliding Scale -) 1 vial SQ ACHS [facility]; Protocol Last Admin: 10/30/18 17:16 Dose: Not Given Losartan Potassium (Cozaar -) 25 mg PO HS [facility] Last Admin: 10/29/18 22:36 Dose: 25 mg Megestrol Acetate (Megace -) 40 mg PO DAILY [facility] Last Admin: 10/30/18 10:13 Dose: 40 mg Methimazole (Tapazole -) 5 mg PO AM [facility] Last Admin: 10/30/18 06:07 Dose: 5 mg Metoprolol Tartrate (Lopressor -) 25 mg PO DAILY [facility] Last Admin: 10/30/18 10:04 Dose: 25 mg Polyethylene Glycol (Miralax (For Daily Use) -) 17 gm PO DAILY [facility] Last Admin: 10/30/18 10:09 Dose: 17 gm Warfarin Sodium (Coumadin -) 4 mg PO DAILY@1800 [facility] Last Admin: 10/30/18 17:17 Dose: 4 mg - Objective Vital Signs: Vital Signs Temperature 98.0 F 10/30/18 18:00 Pulse Rate 67 10/30/18 18:00 Respiratory Rate 19 10/30/18 18:00 Blood Pressure 100/63 10/30/18 18:00 O2 Sat by Pulse Oximetry (%) 97 10/30/18 08:55 Labs: CBC, BMP 10/30/18 05:30 10/30/18 05:30 INR, PTT INR 2.86 (0.83-1.09) H 10/30/18 05:30 <Darline Salinas - Last Filed: 10/30/18 21:01> Problem List - Problems (1) Altered mental status Code(s): R41.82 - ALTERED MENTAL STATUS, UNSPECIFIED Qualifiers: Altered mental status type: somnolence Qualified Code(s): R40.0 - Somnolence (2) Paroxysmal A-fib Code(s): I48.0 - PAROXYSMAL ATRIAL FIBRILLATION (3) Troponin level elevated Code(s): R74.8 - ABNORMAL LEVELS OF OTHER SERUM ENZYMES (4) Abdominal pain Code(s): R10.9 - UNSPECIFIED ABDOMINAL PAIN (5) Acute exacerbation of CHF (congestive heart failure) Code(s): I50.9 - HEART FAILURE, UNSPECIFIED (6) Acute on chronic diastolic (congestive) heart failure Code(s): I50.33 - ACUTE ON CHRONIC DIASTOLIC (CONGESTIVE) HEART FAILURE (7) Hypertension Code(s): I10 - ESSENTIAL (PRIMARY) HYPERTENSION Qualifiers: Hypertension type: essential hypertension Qualified Code(s): I10 - Essential (primary) hypertension (8) Hyperthyroidism Code(s): E05.90 - THYROTOXICOSIS, UNSP WITHOUT THYROTOXIC CRISIS OR STORM <Sarah Resendez - Last Filed: 10/30/18 12:04> Assessment/Plan -pulm consult -troponin elev 0.16, cardiology on board -cont with coumadin, INR daily between 2-3, currently 2.86 -tele monitoring -cont metoprolol, lasix, cardiezem daily -on atorvastatin 10mg hs, lipid panel ordered -BGM ISS -low sodium/diabetic diet -cont IV ABT -WBC elev but trending down, will cont to monitor -monitor electrolytes and renal function due to lasix PO -cont Donepazil -fall precaution -dvt ppx <Sarah Resendez - Last Filed: 10/30/18 12:04> I HAVE EXAMINED THE PATIENT AND AGREE WITH THE ABOVE NOTE <Darline Salinas - Last Filed: 10/30/18 21:01>
[2018-10-30] MEDS ORDERED: ALBUTEROL SO4 0.083% IH SOL 2.5 MG/3 ML VIAL.NEB. NEB PRN (12:05)
--- NOTE | 2018-10-30 13:08 | PN ---
Progress Note (short form) - Note Progress Note: PULMONARY CONSULTATION DICTATED 10/30/18 IMP ALTERED MENTAL STATUS IMPROVED ASTHMA STABLE CHF AFIB DEMENTIA [place] HYPERTHYROID HTN + TROPONIN S/P MVR H/O DVT/PE PLAN INHALED BRONCHODILATORS PRN NO NEED FOR STEROIDS AT THIS TIME ABX CULTURES COUMADIN S PER INR CLOSE MONITORING INR MONITOR LYTES TREND TROPONIN DR YE Problem List - Problems (1) Altered mental status Code(s): R41.82 - ALTERED MENTAL STATUS, UNSPECIFIED Qualifiers: Altered mental status type: somnolence Qualified Code(s): R40.0 - Somnolence (2) Troponin level elevated Code(s): R74.8 - ABNORMAL LEVELS OF OTHER SERUM ENZYMES (3) Anemia Code(s): D64.9 - ANEMIA, UNSPECIFIED Qualifiers: Anemia type: other cause Other causes of anemia: acute posthemorrhagic Qualified Code(s): D62 - Acute posthemorrhagic anemia (4) Asthma Code(s): J45.909 - UNSPECIFIED ASTHMA, UNCOMPLICATED Qualifiers: Asthma severity: mild persistent (5) Atrial fibrillation Code(s): I48.91 - UNSPECIFIED ATRIAL FIBRILLATION Qualifiers: Atrial fibrillation type: permanent Qualified Code(s): I48.2 - Chronic atrial fibrillation (6) CHF (congestive heart failure) Code(s): I50.9 - HEART FAILURE, UNSPECIFIED (7) Confusion Code(s): R41.0 - DISORIENTATION, UNSPECIFIED (8) DVT (deep venous thrombosis) Code(s): I82.409 - ACUTE EMBOLISM AND THOMBOS UNSP DEEP VN UNSP LOWER EXTREMITY Qualifiers: DVT location: non-extremity vein Chronicity: unspecified Qualified Code(s ): I82.90 - Acute embolism and thrombosis of unspecified vein (9) Elevated INR Code(s): R79.1 - ABNORMAL COAGULATION PROFILE (10) H/O heart valve replacement with bioprosthetic valve Code(s): Z95.3 - PRESENCE OF XENOGENIC HEART VALVE (11) History of mitral valve replacement with bioprosthetic valve Code(s): Z95.3 - PRESENCE OF XENOGENIC HEART VALVE (12) Hyperlipidemia Code(s): E78.5 - HYPERLIPIDEMIA, UNSPECIFIED (13) Hypertension Code(s): I10 - ESSENTIAL (PRIMARY) HYPERTENSION Qualifiers: Hypertension type: essential hypertension Qualified Code(s): I10 - Essential (primary) hypertension (14) Hyperthyroidism Code(s): E05.90 - THYROTOXICOSIS, UNSP WITHOUT THYROTOXIC CRISIS OR STORM (15) Pulmonary arterial hypertension Code(s): I27.2 - OTHER SECONDARY PULMONARY HYPERTENSION * DO NOT USE *
--- NOTE | 2018-10-30 14:37 | CONS ---
DATE OF CONSULTATION: 10/30/2018 PULMONARY CONSULTATION REFERRING PHYSICIAN: Darline Salinas M.D. HISTORY OF PRESENT ILLNESS: The patient is a 78-year-old black female known to me from previous hospitalization. She has a past medical history of dementia, atrial fibrillation on Coumadin, CHF, diabetes mellitus, hypothyroidism and asthma. She is status post bioprosthetic mitral valve replacement. She is a resident of the [facility] near the [facility]. She has a three-day history of altered mental status and lethargy. Apparently, for the past few days prior to admission, the patient has had increasing confusion and hypersomnolence. There have been no apparent fevers, chills . She was transferred to [facility] ER for the above. On admission, she was noted to have a white count of 13.9 and troponin of 0.17. A chest x-ray revealed bibasilar atelectatic changes. She was admitted to the telemetry unit and started on antibiotic therapy. Her mental status improved over the course of her hospitalization. The patient denies any cough or chest pain at this time although she has been noted to have increasing wheezing. She is a nonsmoker. There is no history of occupational exposure to chemicals or fumes. She has had multiple hospitalizations in the past secondary to asthma exacerbations. PAST MEDICAL HISTORY: Atrial fibrillation, dementia, CHF, diabetes, hypothyroidism, fatty liver, asthma, osteoarthritis, left popliteal DVT. REVIEW OF SYSTEMS: lethargy. No chest pain, no palpitations, no shortness of breath, no cough, no hemoptysis, no abdominal pain, positive wheezing, no lower extremity edema. CURRENT MEDICATIONS: Levaquin, Coumadin, Megace, albuterol, Lopressor, Cardizem, MiraLAX, Lipitor, Lasix and Aricept. PHYSICAL EXAMINATION: General: The patient is an elderly black female, awake and alert, mildly confused but in no acute distress. Vital Signs: She is afebrile. Temperature 98, blood pressure 130/70, respiratory rate 18, O2 saturation is 97% on room air. HEENT: Head is normocephalic, atraumatic. Neck: Supple. Heart: Regular, regular. S1, S2. Chest: A few scattered bilateral wheezes. Abdomen: Soft. Bowel sounds are positive. Extremities: No cyanosis or edema. LABORATORY: WBC is 10.6, hemoglobin 11.7, hematocrit 33.8, platelet count of 207,000. On admission, WBC was 13.1. Chemistries: INR is 2.86, BUN 21, creatinine . UA is negative for nitrites. A chest x-ray shows no acute infiltrates or effusions. IMPRESSION: 1. Altered mental status, improved, possibly secondary to toxic metabolic, possibly secondary to infectious process. 2. Atrial fibrillation. 3. Congestive heart failure. 4. Asthma, currently clinically stable. 5. Fatty liver. 6. Dementia. PLAN: Continue current medications, inhaled bronchodilators q. 4 hours p.r.n. I do not feel that the patient requires steroids at this time. monitor peak flow. monitor INR. AC VANDANA YE M.D. [id number] MTDD
--- NOTE | 2018-10-30 15:43 | PN ---
Progress Note, Physician Chief Complaint: Presently comfortable History of Present Illness: This is a 78 year old female with a PMH of Dementia, AFIB on coumadin, CHF, DM Hyperthyroidism, Fatty Liver, and asthma. [place] [facility] [place]ence and decline in function. Noted to have positive troponin levels. - Current Medication List Current Medications: Active Medications Acetaminophen (Tylenol -) 650 mg PO Q4H PRN PRN Reason: FEVER Albuterol Sulfate (Ventolin 0.083% Nebulizer Soln -) 1 amp NEB Q4H PRN PRN Reason: SHORT OF BREATH/WHEEZING Atorvastatin Calcium (Lipitor -) 10 mg PO HS [facility] Last Admin: 10/29/18 22:36 Dose: 10 mg Diltiazem HCl (Cardizem Cd -) 360 mg PO DAILY [facility] Last Admin: 10/30/18 10:08 Dose: 360 mg Donepezil HCl (Aricept -) 5 mg PO HS [facility] Last Admin: 10/29/18 22:36 Dose: 5 mg Furosemide (Lasix -) 40 mg PO DAILY [facility] Last Admin: 10/30/18 10:04 Dose: 40 mg Levofloxacin (Levaquin 750 Mg Premixed Ivpb -) 750 mg in 150 mls @ 100 mls/hr IVPB DAILY [facility]; Protocol Last Admin: 10/30/18 10:04 Dose: 100 mls/hr Insulin Aspart (Novolog Vial Sliding Scale -) 1 vial SQ ACHS [facility]; Protocol Last Admin: 10/30/18 11:07 Dose: Not Given Losartan Potassium (Cozaar -) 25 mg PO HS [facility] Last Admin: 10/29/18 22:36 Dose: 25 mg Megestrol Acetate (Megace -) 40 mg PO DAILY [facility] Last Admin: 10/30/18 10:13 Dose: 40 mg Methimazole (Tapazole -) 5 mg PO AM [facility] Last Admin: 10/30/18 06:07 Dose: 5 mg Metoprolol Tartrate (Lopressor -) 25 mg PO DAILY [facility] Last Admin: 10/30/18 10:04 Dose: 25 mg Polyethylene Glycol (Miralax (For Daily Use) -) 17 gm PO DAILY [facility] Last Admin: 10/30/18 10:09 Dose: 17 gm Warfarin Sodium (Coumadin -) 4 mg PO DAILY@1800 [facility] Last Admin: 10/29/18 17:37 Dose: 4 mg - Objective Vital Signs: Vital Signs Temperature 98.0 F 10/30/18 10:00 Pulse Rate 66 10/30/18 10:00 Respiratory Rate 18 10/30/18 10:00 Blood Pressure 130/70 10/30/18 10:00 O2 Sat by Pulse Oximetry (%) 97 10/30/18 08:55 Constitutional: Yes: No Distress Eyes: Yes: WNL HENT: Yes: WNL Neck: Yes: WNL Cardiovascular: Yes: Regular Rate and Rhythm (NL S1S2, no MRHG) Respiratory: Yes: CTA Bilaterally Gastrointestinal: Yes: Soft Extremities: Yes: WNL Edema: No Neurological: Yes: Alert, Confusion Labs: CBC, BMP 10/30/18 05:30 10/30/18 05:30 INR, PTT INR 2.86 (0.83-1.09) H 10/30/18 05:30 Assessment/Plan 78 year old female with a PMH of Dementia, AFIB on coumadin, CHF, DM Hyperthyroidism, Fatty Liver, and asthma. [place] [facility] [place] and decline in function. Noted to have positive troponin levels. Troponins 0.16, 0.17, 0.16 Troponins had been elevated in the past Echocardiogram 10/29/18 showing normal LV function, EF 60 - 65% EKG NSR with LAD, and no acute changes. WBC 13.1 Would opt for conservative care, demand ischemia and not an acute coronary syndrome Continue medical therapy with Losartan/metoprolol/Cardizem AFIB Now in NSR Continue coumadin, INR goal 2 - 3 Call us prn
[2018-10-30] MEDS: ALBUTEROL SO4 0.083% IH SOL 2.5 MG/3 ML VIAL.NEB. NEB PRN (16:16)
[2018-10-30] MEDS: WARFARIN NA 2 MG TABLET (UD) PO SCH (17:17)
[2018-10-30] MEDS: LOSARTAN POTASSIUM 25 MG TABLET PO SCH (21:47)
[2018-10-30] MEDS: DONEPEZIL HCL 5 MG TABLET (FP) PO SCH (21:47)
[2018-10-30] MEDS: ATORVASTATIN CA 10 MG TABLET (FP) PO SCH (21:47)
[2018-10-31] MEDS: INSULIN SLIDING SCALE (NOVOLOG) 1 VIAL SQ SCH ×4 (06:42→21:11)
[2018-10-31] MEDS: METHIMAZOLE 5 MG TABLET (FP) PO SCH (06:43)
[2018-10-31] MEDS ORDERED: PT OWN MED DRAWER 7, Y5N ONE (09:06)
[2018-10-31 09:08] LABS: BASO % 1.2 % (0-2.0); EOS % 1.1 % (0-4.5); HEMATOCRIT 34.8 % (32.4-45.2); HEMOGLOBIN 12.1 GM/dL (10.7-15.3); LYMPH % 11.4 % (8-40); MCH 33.5 pg (25.7-33.7); MCHC 34.9 g/dl (32.0-36.0); MEAN CELL VOLUME 95.8 fl (80-96); MONO % 8.4 % (3.8-10.2); NEUT % 77.9 % (42.8-82.8); RBC 3.63 M/mm3 (3.60-5.2); RDW 15.4 % (11.6-15.6); WHITE BLOOD COUNT 10.5 K/mm3 (4.0-10.0)
[2018-10-31 09:27] LABS: INR 2.98 (0.83-1.09); PROTHROMBIN TIME (PATIENT) 35.5 SEC (9.7-13.0)
[2018-10-31 09:39] LABS: ALBUMIN 2.3 g/dl (3.4-5.0); ALK PHOS 41 U/L (45-117); ANION GAP 9 MMOL/L (8-16); BILIRUBIN,TOTAL 0.4 mg/dL (0.2-1); BLOOD UREA NITROGEN 15 mg/dL (7-18); CALCIUM 7.8 mg/dL (8.5-10.1); CHLORIDE 108 mmol/L (98-107); CO2 25 mmol/L (21-32); CREATININE 0.6 mg/dL (0.55-1.3); GLUCOSE,RANDOM 96 mg/dL (74-106); POTASSIUM 4.2 mmol/L (3.5-5.1); SGOT/AST 20 U/L (15-37); SGPT/ALT 13 U/L (13-61); SODIUM 141 mmol/L (136-145); TOT PROT 5.3 g/dl (6.4-8.2)
[2018-10-31] MEDS: METOPROLOL TARTRATE 25 MG TABLET (FP) PO SCH (10:54)
[2018-10-31] MEDS: FUROSEMIDE 40 MG TABLET (FP) PO SCH (10:54)
[2018-10-31] MEDS: MEGESTROL ACETATE 40 MG TABLET PO SCH (10:54)
[2018-10-31] MEDS: POLYETHYLENE GLYCOL 3350 119 GM BTL PO SCH (10:55)
[2018-10-31 11:08] LABS: ANISOCYTOSIS 0; MACROCYTOSIS 0
--- NOTE | 2018-10-31 15:20 | PN ---
Progress Note, Physician Chief Complaint: AMS Elevated troponin History of Present Illness: KARLEY Trejo historian Sent in from SNF for AMS Afebrile mild leukocytosis CT head unremarkable EKG-SR with 1degree AV block, has hx of paroxysmal afib- On warfarin Hx of dementia IV abx on hold INR elevated-warfarin on hold - Current Medication List Current Medications: Active Medications Acetaminophen (Tylenol -) 650 mg PO Q4H PRN PRN Reason: FEVER Albuterol Sulfate (Ventolin 0.083% Nebulizer Soln -) 1 amp NEB Q4H PRN PRN Reason: SHORT OF BREATH/WHEEZING Last Admin: 10/30/18 16:16 Dose: 1 amp Atorvastatin Calcium (Lipitor -) 10 mg PO HS [facility] Last Admin: 10/30/18 21:47 Dose: 10 mg Diltiazem HCl (Cardizem Cd -) 360 mg PO DAILY [facility] Last Admin: 10/31/18 10:54 Dose: 360 mg Donepezil HCl (Aricept -) 5 mg PO HS [facility] Last Admin: 10/30/18 21:47 Dose: 5 mg Furosemide (Lasix -) 40 mg PO DAILY [facility] Last Admin: 10/31/18 10:54 Dose: 40 mg Levofloxacin (Levaquin 750 Mg Premixed Ivpb -) 750 mg in 150 mls @ 100 mls/hr IVPB DAILY [facility]; Protocol Last Admin: 10/31/18 10:56 Dose: 100 mls/hr Insulin Aspart (Novolog Vial Sliding Scale -) 1 vial SQ ACHS [facility]; Protocol Last Admin: 10/31/18 12:25 Dose: Not Given Losartan Potassium (Cozaar -) 25 mg PO HS [facility] Last Admin: 10/30/18 21:47 Dose: 25 mg Megestrol Acetate (Megace -) 40 mg PO DAILY [facility] Last Admin: 10/31/18 10:54 Dose: 40 mg Methimazole (Tapazole -) 5 mg PO AM [facility] Last Admin: 10/31/18 06:43 Dose: 5 mg Metoprolol Tartrate (Lopressor -) 25 mg PO DAILY [facility] Last Admin: 10/31/18 10:54 Dose: 25 mg Polyethylene Glycol (Miralax (For Daily Use) -) 17 gm PO DAILY [facility] Last Admin: 10/31/18 10:55 Dose: 17 gm Warfarin Sodium (Coumadin -) 4 mg PO DAILY@1800 [facility] Last Admin: 10/30/18 17:17 Dose: 4 mg - Objective Vital Signs: Vital Signs Temperature 98.1 F 10/31/18 06:37 Pulse Rate 60 10/31/18 06:37 Respiratory Rate 16 10/31/18 10:00 Blood Pressure 90/56 L 10/31/18 06:37 O2 Sat by Pulse Oximetry (%) 98 10/31/18 10:00 Constitutional: Yes: Well Nourished, No Distress, Calm Cardiovascular: Yes: Regular Rate and Rhythm Respiratory: Yes: Regular Gastrointestinal: Yes: Normal Bowel Sounds, Soft Musculoskeletal: Yes: Muscle Weakness Extremities: Yes: WNL Edema: Yes Edema: LLE: 2+, RLE: 2+ Peripheral Pulses WNL: Yes Neurological: Yes: Alert, Pre-Existing Deficit Psychiatric: Yes: Alert Labs: CBC, BMP 10/31/18 08:39 10/31/18 08:39 INR, PTT INR 2.98 (0.83-1.09) H 10/31/18 08:39 Problem List - Problems (1) VHD (valvular heart disease) Assessment/Plan: -Cardiology consult -On Warfarin -INR goal 2-3 -Monitor daily INR Code(s): I38 - ENDOCARDITIS, VALVE UNSPECIFIED (2) History of mitral valve replacement with bioprosthetic valve Assessment/Plan: -Cardiology consult -On Warfarin -INR goal 2-3 -Monitor daily INR Code(s): Z95.3 - PRESENCE OF XENOGENIC HEART VALVE (3) Diabetes Assessment/Plan: -Last A1c in 12/2017 at 6.5 -BGM AC HS -Novolog sliding scale -diabetic low sodium diet -repeat A1C Code(s): E11.9 - TYPE 2 DIABETES MELLITUS WITHOUT COMPLICATIONS (4) Altered mental status Assessment/Plan: -UC/BC: Microbiology 10/28/18 04:52 Blood - Peripheral Venous Blood Culture - Final NO GROWTH AFTER 5 DAYS INCUBATION 10/28/18 04:52 Blood - Peripheral Venous Blood Culture - Final NO GROWTH AFTER 5 DAYS INCUBATION 10/27/18 23:56 Urine - Urine - Catheterized Urine Culture - Final NO GROWTH OBTAINED -afebrile -Neurology consult -CT head unremarkable -MRI upon Neurology discretion -Check B12 -Started on Donepezil 5 mg po HS Code(s): R41.82 - ALTERED MENTAL STATUS, UNSPECIFIED Qualifiers: Altered mental status type: somnolence Qualified Code(s): R40.0 - Somnolence (5) Metabolic encephalopathy Code(s): G93.41 - METABOLIC ENCEPHALOPATHY (6) Troponin level elevated Assessment/Plan: -no changes in EKG -demand ischemia and not an acute coronary syndrome -Continue medical therapy with Losartan/metoprolol/Cardizem -differential-CHF, pericarditis, pulmonary htn -Echo reviewed -cardiology consult -Tele monitoring -digoxin discontinued -Atorvastatin 20 mg po hs, last LDL 121 mg/dl -LDL at 96 mg/dl, with goal of <70 mg/dl Code(s): R74.8 - ABNORMAL LEVELS OF OTHER SERUM ENZYMES (7) Paroxysmal A-fib Assessment/Plan: -In SR with 1st degree av block -cardiology consult -On warfarin-therapeutic Code(s): I48.0 - PAROXYSMAL ATRIAL FIBRILLATION Assessment/Plan See problem list Physical therapy
[2018-10-31] MEDS: WARFARIN NA 2 MG TABLET (UD) PO SCH (18:18)
[2018-10-31] MEDS: DONEPEZIL HCL 5 MG TABLET (FP) PO SCH (21:11)
[2018-10-31] MEDS: ATORVASTATIN CA 10 MG TABLET (FP) PO SCH (21:11)
[2018-10-31] MEDS: LOSARTAN POTASSIUM 25 MG TABLET PO SCH (21:11)
[2018-11-01 06:18] LABS: BASO % 0.5 % (0-2.0); EOS % 1.1 % (0-4.5); HEMATOCRIT 33.7 % (32.4-45.2); HEMOGLOBIN 11.5 GM/dL (10.7-15.3); LYMPH % 13.3 % (8-40); MCH 32.9 pg (25.7-33.7); MCHC 34.2 g/dl (32.0-36.0); MEAN PLT VOLUME 8.3 fl (7.5-11.1); MONO % 9.2 % (3.8-10.2); NEUT % 75.9 % (42.8-82.8); PLATELET COUNT 224 K/MM3 (134-434); RBC 3.51 M/mm3 (3.60-5.2); RDW 15.9 % (11.6-15.6); WHITE BLOOD COUNT 11.6 K/mm3 (4.0-10.0)
[2018-11-01] MEDS: INSULIN SLIDING SCALE (NOVOLOG) 1 VIAL SQ SCH ×4 (06:26→22:51)
[2018-11-01] MEDS: METHIMAZOLE 5 MG TABLET (FP) PO SCH (06:27)
[2018-11-01 06:42] LABS: INR 3.26 (0.83-1.09); PROTHROMBIN TIME (PATIENT) 38.9 SEC (9.7-13.0)
[2018-11-01 07:01] LABS: ALBUMIN 2.2 g/dl (3.4-5.0); ALK PHOS 38 U/L (45-117); ANION GAP 8 MMOL/L (8-16); BILIRUBIN,TOTAL 0.3 mg/dL (0.2-1); BLOOD UREA NITROGEN 20 mg/dL (7-18); CALCIUM 8.2 mg/dL (8.5-10.1); CHLORIDE 106 mmol/L (98-107); CO2 24 mmol/L (21-32); CREATININE 0.7 mg/dL (0.55-1.3); GLUCOSE,RANDOM 114 mg/dL (74-106); POTASSIUM 4.3 mmol/L (3.5-5.1); SGOT/AST 16 U/L (15-37); SGPT/ALT 12 U/L (13-61); SODIUM 138 mmol/L (136-145); TOT PROT 4.9 g/dl (6.4-8.2)
[2018-11-01] MEDS: FUROSEMIDE 40 MG TABLET (FP) PO SCH (10:13)
[2018-11-01 10:29] LABS: ANISOCYTOSIS 1+; PLATELET ESTIMATE ADEQUATE; SMUDGE CELLS FEW
--- NOTE | 2018-11-01 11:05 | PN ---
Progress Note (short form) - Note Progress Note: ID CONSULT DICTATED LEUKOCYTOSIS ALTERED MENTAL STATUS OBSERVE OFF ANTIBIOTICS RECULTURE FOR PERSISTANT LEUKOCYTOSIS
[2018-11-01] MEDS: POLYETHYLENE GLYCOL 3350 119 GM BTL PO SCH (12:25)
[2018-11-01] MEDS: METOPROLOL TARTRATE 25 MG TABLET (FP) PO SCH (12:25)
--- NOTE | 2018-11-01 12:48 | PN ---
Progress Note (short form) - Note Progress Note: PULMONARY Denies shortness of breath, cough or wheezing. Vital Signs Period Temp Pulse Resp BP Sys/Urr[place]ia Pulse Ox Last 24 Hr 98 F-98.6 F 65-75 16-20 103-137/58-73 98-98 Gen: NAD at rest Heart: RRR Lung: scattered wheeze Abd: soft, nontender Ext: no edema CBC, BMP 11/01/18 05:25 11/01/18 05:25 Active Medications Acetaminophen (Tylenol -) 650 mg PO Q4H PRN PRN Reason: FEVER Albuterol Sulfate (Ventolin 0.083% Nebulizer Soln -) 1 amp NEB Q4H PRN PRN Reason: SHORT OF BREATH/WHEEZING Last Admin: 10/30/18 16:16 Dose: 1 amp Atorvastatin Calcium (Lipitor -) 20 mg PO HS [facility] Diltiazem HCl (Cardizem Cd -) 360 mg PO DAILY [facility] Last Admin: 11/01/18 10:14 Dose: 360 mg Donepezil HCl (Aricept -) 5 mg PO HS [facility] Last Admin: 10/31/18 21:11 Dose: 5 mg Furosemide (Lasix -) 40 mg PO DAILY [facility] Last Admin: 11/01/18 10:13 Dose: 40 mg Insulin Aspart (Novolog Vial Sliding Scale -) 1 vial SQ [facility]; Protocol Last Admin: 11/01/18 12:24 Dose: 4 units Losartan Potassium (Cozaar -) 25 mg PO HS [facility] Last Admin: 10/31/18 21:11 Dose: 25 mg Methimazole (Tapazole -) 5 mg PO AM [facility] Last Admin: 11/01/18 06:27 Dose: 5 mg Metoprolol Tartrate (Lopressor -) 25 mg PO DAILY [facility] Last Admin: 11/01/18 12:25 Dose: 25 mg Polyethylene Glycol (Miralax (For Daily Use) -) 17 gm PO DAILY [facility] Last Admin: 11/01/18 12:25 Dose: 17 gm Warfarin Sodium (Coumadin -) 4 mg PO DAILY@1800 [facility] Last Admin: 10/31/18 18:18 Dose: 4 mg A/P LV Diastolic Dysfunction Atrial Fibrillation +troponins likely Demand Ischemia Asthma h/o MVR h/o PE/DVT [place] Dementia - inhaled bronchodilators as needed - O2 to keep SpO2 >90% - rate control - continue anticoagulation
--- NOTE | 2018-11-01 15:20 | PN ---
Progress Note, Physician Chief Complaint: AMS Elevated troponin History of Present Illness: KARLEY Trejo historian Sent in from SNF for AMS Afebrile mild leukocytosis CT head unremarkable EKG-SR with 1degree AV block, has hx of paroxysmal afib- On warfarin Hx of dementia IV abx on hold INR elevated-warfarin on hold - Current Medication List Current Medications: Active Medications Acetaminophen (Tylenol -) 650 mg PO Q4H PRN PRN Reason: FEVER Albuterol Sulfate (Ventolin 0.083% Nebulizer Soln -) 1 amp NEB Q4H PRN PRN Reason: SHORT OF BREATH/WHEEZING Last Admin: 10/30/18 16:16 Dose: 1 amp Atorvastatin Calcium (Lipitor -) 20 mg PO HS [facility] Diltiazem HCl (Cardizem Cd -) 360 mg PO DAILY [facility] Last Admin: 11/01/18 10:14 Dose: 360 mg Donepezil HCl (Aricept -) 5 mg PO HS [facility] Last Admin: 10/31/18 21:11 Dose: 5 mg Furosemide (Lasix -) 40 mg PO DAILY [facility] Last Admin: 11/01/18 10:13 Dose: 40 mg Insulin Aspart (Novolog Vial Sliding Scale -) 1 vial SQ ACHS [facility]; Protocol Last Admin: 11/01/18 12:24 Dose: 4 units Losartan Potassium (Cozaar -) 25 mg PO HS [facility] Last Admin: 10/31/18 21:11 Dose: 25 mg Methimazole (Tapazole -) 5 mg PO AM [facility] Last Admin: 11/01/18 06:27 Dose: 5 mg Metoprolol Tartrate (Lopressor -) 25 mg PO DAILY [facility] Last Admin: 11/01/18 12:25 Dose: 25 mg Polyethylene Glycol (Miralax (For Daily Use) -) 17 gm PO DAILY [facility] Last Admin: 11/01/18 12:25 Dose: 17 gm Warfarin Sodium (Coumadin -) 4 mg PO DAILY@1800 [facility] Last Admin: 10/31/18 18:18 Dose: 4 mg - Objective Vital Signs: Vital Signs Temperature 98.3 F 11/01/18 15:04 Pulse Rate 71 11/01/18 15:04 Respiratory Rate 18 11/01/18 15:04 Blood Pressure 101/61 11/01/18 15:04 O2 Sat by Pulse Oximetry (%) 98 11/01/18 09:00 Constitutional: Yes: Well Nourished, No Distress, Calm Cardiovascular: Yes: Regular Rate and Rhythm Respiratory: Yes: Regular Gastrointestinal: Yes: Normal Bowel Sounds, Soft Genitourinary: Yes: WNL Musculoskeletal: Yes: Muscle Weakness Extremities: Yes: WNL Edema: Yes Edema: LLE: 2+, RLE: 2+ Peripheral Pulses WNL: Yes Neurological: Yes: Alert, Pre-Existing Deficit Psychiatric: Yes: Alert Labs: CBC, BMP 11/01/18 05:25 11/01/18 05:25 INR, PTT INR 3.26 (0.83-1.09) H 11/01/18 05:25 Problem List - Problems (1) VHD (valvular heart disease) Assessment/Plan: -Cardiology consult -On Warfarin -INR goal 2-3 -Monitor daily INR Code(s): I38 - ENDOCARDITIS, VALVE UNSPECIFIED (2) History of mitral valve replacement with bioprosthetic valve Assessment/Plan: -Cardiology consult -On Warfarin -INR goal 2-3 -Monitor daily INR Code(s): Z95.3 - PRESENCE OF XENOGENIC HEART VALVE (3) Diabetes Assessment/Plan: -Last A1c in 12/2017 at 6.5 -BGM AC HS -Novolog sliding scale -diabetic low sodium diet -repeat A1C Code(s): E11.9 - TYPE 2 DIABETES MELLITUS WITHOUT COMPLICATIONS (4) Altered mental status Assessment/Plan: -UC/BC: Microbiology 10/28/18 04:52 Blood - Peripheral Venous Blood Culture - Final NO GROWTH AFTER 5 DAYS INCUBATION 10/28/18 04:52 Blood - Peripheral Venous Blood Culture - Final NO GROWTH AFTER 5 DAYS INCUBATION 10/27/18 23:56 Urine - Urine - Catheterized Urine Culture - Final NO GROWTH OBTAINED -afebrile -Neurology consult -CT head unremarkable -MRI upon Neurology discretion -Check B12 -Started on Donepezil 5 mg po HS Code(s): R41.82 - ALTERED MENTAL STATUS, UNSPECIFIED Qualifiers: Altered mental status type: somnolence Qualified Code(s): R40.0 - Somnolence (5) Metabolic encephalopathy Code(s): G93.41 - METABOLIC ENCEPHALOPATHY (6) Troponin level elevated Assessment/Plan: -no changes in EKG -demand ischemia and not an acute coronary syndrome -Continue medical therapy with Losartan/metoprolol/Cardizem -differential-CHF, pericarditis, pulmonary htn -Echo reviewed -cardiology consult -Tele monitoring -digoxin discontinued -Atorvastatin 20 mg po hs, last LDL 121 mg/dl -LDL at 96 mg/dl, with goal of <70 mg/dl Code(s): R74.8 - ABNORMAL LEVELS OF OTHER SERUM ENZYMES (7) Paroxysmal A-fib Assessment/Plan: -In SR with 1st degree av block -cardiology consult -On warfarin-therapeutic Code(s): I48.0 - PAROXYSMAL ATRIAL FIBRILLATION Assessment/Plan See problem list Physical therapy
[2018-11-01] MEDS: DONEPEZIL HCL 5 MG TABLET (FP) PO SCH (22:48)
[2018-11-01] MEDS: LOSARTAN POTASSIUM 25 MG TABLET PO SCH (22:48)
[2018-11-01] MEDS: ATORVASTATIN CA 20 MG TABLET (FP) PO SCH (22:48)
[2018-11-02] MEDS ORDERED: PT OWN MED DRAWER 7, Y5N ONE (06:08)
[2018-11-02] MEDS: INSULIN SLIDING SCALE (NOVOLOG) 1 VIAL SQ SCH ×4 (06:10→21:52)
[2018-11-02] MEDS: METHIMAZOLE 5 MG TABLET (FP) PO SCH (06:11)
[2018-11-02 07:16] LABS: BASO % 0.6 % (0-2.0); EOS % 1.4 % (0-4.5); HEMATOCRIT 37.4 % (32.4-45.2); HEMOGLOBIN 12.9 GM/dL (10.7-15.3); LYMPH % 16.4 % (8-40); MCH 33.4 pg (25.7-33.7); MCHC 34.4 g/dl (32.0-36.0); MEAN CELL VOLUME 97.3 fl (80-96); MEAN PLT VOLUME 8.2 fl (7.5-11.1); MONO % 7.3 % (3.8-10.2); NEUT % 74.3 % (42.8-82.8); PLATELET COUNT 223 K/MM3 (134-434); RBC 3.85 M/mm3 (3.60-5.2); RDW 16.2 % (11.6-15.6); WHITE BLOOD COUNT 10.1 K/mm3 (4.0-10.0)
[2018-11-02 07:30] LABS: INR 2.4 (0.83-1.09); PROTHROMBIN TIME (PATIENT) 28.6 SEC (9.7-13.0)
[2018-11-02 07:41] LABS: ALBUMIN 2.4 g/dl (3.4-5.0); ALK PHOS 45 U/L (45-117); ANION GAP 7 MMOL/L (8-16); BILIRUBIN,TOTAL 0.5 mg/dL (0.2-1); BLOOD UREA NITROGEN 19 mg/dL (7-18); CALCIUM 8.3 mg/dL (8.5-10.1); CHLORIDE 108 mmol/L (98-107); CO2 26 mmol/L (21-32); CREATININE 0.7 mg/dL (0.55-1.3); GLUCOSE,RANDOM 91 mg/dL (74-106); POTASSIUM 4.6 mmol/L (3.5-5.1); SGOT/AST 18 U/L (15-37); SGPT/ALT 13 U/L (13-61); SODIUM 141 mmol/L (136-145); TOT PROT 5.5 g/dl (6.4-8.2)
[2018-11-02] MEDS: METOPROLOL TARTRATE 25 MG TABLET (FP) PO SCH (10:49)
[2018-11-02] MEDS: FUROSEMIDE 40 MG TABLET (FP) PO SCH (10:49)
[2018-11-02] MEDS: POLYETHYLENE GLYCOL 3350 119 GM BTL PO SCH (10:49)
[2018-11-02 11:25] LABS: ANISOCYTOSIS 1+; MACROCYTOSIS 1+; PLATELET ESTIMATE NORMAL
--- NOTE | 2018-11-02 11:53 | PN ---
Progress Note, Physician Chief Complaint: patient sitting up in bed sleeping but arousable and answers name - Current Medication List Current Medications: Active Medications Acetaminophen (Tylenol -) 650 mg PO Q4H PRN PRN Reason: FEVER Albuterol Sulfate (Ventolin 0.083% Nebulizer Soln -) 1 amp NEB Q4H PRN PRN Reason: SHORT OF BREATH/WHEEZING Last Admin: 10/30/18 16:16 Dose: 1 amp Atorvastatin Calcium (Lipitor -) 20 mg PO [facility] Last Admin: 11/01/18 22:48 Dose: 20 mg Diltiazem HCl (Cardizem Cd -) 360 mg PO DAILY [facility] Last Admin: 11/02/18 10:49 Dose: 360 mg Donepezil HCl (Aricept -) 5 mg PO [facility] Last Admin: 11/01/18 22:48 Dose: 5 mg Furosemide (Lasix -) 40 mg PO DAILY [facility] Last Admin: 11/02/18 10:49 Dose: 40 mg Insulin Aspart (Novolog Vial Sliding Scale -) 1 vial SQ [facility]; Protocol Last Admin: 11/02/18 11:01 Dose: 2 units Losartan Potassium (Cozaar -) 25 mg PO [facility] Last Admin: 11/01/18 22:48 Dose: 25 mg Methimazole (Tapazole -) 5 mg PO AM [facility] Last Admin: 11/02/18 06:11 Dose: 5 mg Metoprolol Tartrate (Lopressor -) 25 mg PO DAILY [facility] Last Admin: 11/02/18 10:49 Dose: 25 mg Polyethylene Glycol (Miralax (For Daily Use) -) 17 gm PO DAILY [facility] Last Admin: 11/02/18 10:49 Dose: 17 gm Warfarin Sodium (Coumadin -) 4 mg PO DAILY@1800 [facility] Last Admin: 10/31/18 18:18 Dose: 4 mg - Objective Vital Signs: Vital Signs Temperature 98.1 F 11/02/18 10:00 Pulse Rate 70 11/02/18 10:00 Respiratory Rate 20 11/02/18 10:00 Blood Pressure 121/79 11/02/18 10:00 O2 Sat by Pulse Oximetry (%) 100 11/01/18 21:00 Constitutional: Yes: Calm Cardiovascular: Yes: Regular Rate and Rhythm, S1, S2 Respiratory: Yes: Diminished Gastrointestinal: Yes: Normal Bowel Sounds, Soft Neurological: Yes: Alert Labs: CBC, BMP 11/02/18 06:30 11/02/18 06:30 INR, PTT INR 2.40 (0.83-1.09) H 11/02/18 06:30 Problem List - Problems (1) Altered mental status Assessment/Plan: ID consult appreicate no fever cultures negative off abx Code(s): R41.82 - ALTERED MENTAL STATUS, UNSPECIFIED Qualifiers: Altered mental status type: somnolence Qualified Code(s): R40.0 - Somnolence (2) Paroxysmal A-fib Assessment/Plan: metoprolol start coumadin tonight INR is therapeutic low dose of couamdin Code(s): I48.0 - PAROXYSMAL ATRIAL FIBRILLATION (3) Troponin level elevated Assessment/Plan: troponin trending down most likely secondary to demand ischemia on BB,cozaar and statin Code(s): R74.8 - ABNORMAL LEVELS OF OTHER SERUM ENZYMES (4) Hyperthyroidism Assessment/Plan: methimazole Code(s): E05.90 - THYROTOXICOSIS, UNSP WITHOUT THYROTOXIC CRISIS OR STORM Assessment/Plan PT eval family wants SNF placement
--- NOTE | 2018-11-02 13:03 | PN ---
Progress Note (short form) - Note Progress Note: PULMONARY APPEARS TO BE RESTING COMFORTABLY VSS Gen: NAD at rest Heart: RRR Lung: scattered wheeze Abd: soft, nontender Ext: no edema LABS/MEDS/IMAGES NOTED A/P LV Diastolic Dysfunction Atrial Fibrillation +troponins likely Demand Ischemia Asthma h/o MVR h/o PE/DVT ALMONTE Dementia - inhaled bronchodilators as needed - O2 to keep SpO2 >90% - rate control - continue anticoagulation Zeferino WALLER MD
[2018-11-02] MEDS: WARFARIN NA 3 MG TABLET PO SCH (17:53)
[2018-11-02] MEDS: ATORVASTATIN CA 20 MG TABLET (FP) PO SCH (21:52)
[2018-11-02] MEDS: LOSARTAN POTASSIUM 25 MG TABLET PO SCH (21:52)
[2018-11-02] MEDS: DONEPEZIL HCL 5 MG TABLET (FP) PO SCH (21:52)
--- NOTE | 2018-11-02 23:37 | PN ---
Progress Note, Physician History of Present Illness: Awake, responsive in bed Offers no complaints Afebrile WBC slightly elevated - Current Medication List Current Medications: Active Medications Acetaminophen (Tylenol -) 650 mg PO Q4H PRN PRN Reason: FEVER Albuterol Sulfate (Ventolin 0.083% Nebulizer Soln -) 1 amp NEB Q4H PRN PRN Reason: SHORT OF BREATH/WHEEZING Last Admin: 10/30/18 16:16 Dose: 1 amp Atorvastatin Calcium (Lipitor -) 20 mg PO HS [facility] Last Admin: 11/02/18 21:52 Dose: 20 mg Diltiazem HCl (Cardizem Cd -) 360 mg PO DAILY [facility] Last Admin: 11/02/18 10:49 Dose: 360 mg Donepezil HCl (Aricept -) 5 mg PO HS [facility] Last Admin: 11/02/18 21:52 Dose: 5 mg Furosemide (Lasix -) 40 mg PO DAILY [facility] Last Admin: 11/02/18 10:49 Dose: 40 mg Insulin Aspart (Novolog Vial Sliding Scale -) 1 vial SQ [facility]; Protocol Last Admin: 11/02/18 21:52 Dose: Not Given Losartan Potassium (Cozaar -) 25 mg PO HS [facility] Last Admin: 11/02/18 21:52 Dose: 25 mg Methimazole (Tapazole -) 5 mg PO AM [facility] Last Admin: 11/02/18 06:11 Dose: 5 mg Metoprolol Tartrate (Lopressor -) 25 mg PO DAILY [facility] Last Admin: 11/02/18 10:49 Dose: 25 mg Polyethylene Glycol (Miralax (For Daily Use) -) 17 gm PO DAILY [facility] Last Admin: 11/02/18 10:49 Dose: 17 gm Warfarin Sodium (Coumadin -) 3 mg PO DAILY@1800 [facility] Last Admin: 11/02/18 17:53 Dose: 3 mg - Objective Vital Signs: Vital Signs Temperature 97.9 F 11/02/18 21:00 Pulse Rate 67 11/02/18 21:00 Respiratory Rate 18 11/02/18 21:00 Blood Pressure 121/71 11/02/18 21:00 O2 Sat by Pulse Oximetry (%) 97 11/02/18 20:55 Constitutional: Yes: No Distress Eyes: Yes: Conjunctiva Clear Cardiovascular: Yes: Regular Rate and Rhythm, S1, S2 Respiratory: Yes: CTA Bilaterally Gastrointestinal: Yes: Normal Bowel Sounds, Soft Edema: Yes Labs: CBC, BMP 11/02/18 06:30 11/02/18 06:30 INR, PTT INR 2.40 (0.83-1.09) H 11/02/18 06:30 Assessment/Plan ? Toxic metabolic encephalopathy Leukocytosis Check cultures off antibiotics
--- NOTE | 2018-11-03 00:08 | CONS ---
DATE OF CONSULTATION: DATE OF DICTATION: 11/02/2018 The patient is a 78-year-old female, evaluated for altered mentation. The patient was admitted to the hospital on October 27, 2018, after she was noted to have increasing confusion and somnolence at the half-way. She was also noted to have an elevated white blood cell count of 13.9. She was empirically treated with Levaquin for possible pneumonia. The patient is awake and responsive; however, appears confused. She offers no focal complaint. She denies any high-grade fever, shaking chills, labored breathing, cough, sputum production, hemoptysis, vomiting or diarrhea. PAST MEDICAL HISTORY: Positive for dementia, atrial fibrillation, congestive heart failure, diabetes mellitus, COPD, hypothyroidism, asthma. PAST SURGICAL HISTORY: Status post mitral valve replacement, tubal ligation. ALLERGIES: CODEINE AND AMPICILLIN. MEDICATIONS: Tylenol, Cozaar, Coumadin, Tapazole, Lopressor, Cardizem, Lipitor, NovoLog, Lasix, Aricept. SOCIAL HISTORY: She is a nonsmoker, nondrinker. She lives in the community. REVIEW OF SYSTEMS: Neurologic: Positive for dementia. Cardiac: Negative for chest pain or palpitations. Respiratory: Negative for cough or sputum production. Gastrointestinal: Negative vomiting or diarrhea. Genitourinary: Negative for urinary tract infection. LABORATORY DATA: White count 11.6, hematocrit 33.7, platelet count 224, 75 neutrophils, 13 lymphocytes, 9 monocytes, creatinine 0.7. Urinalysis: Negative leukocyte esterase. Blood and urine cultures are pending. PHYSICAL EXAMINATION: General: She is awake. She is seated supine in bed. She is in no acute distress. Not acutely toxic appearing. Vital Signs: Temperature 98, blood pressure 107/69, pulse 71 and regular, respirations 18 per minute. HEENT: Sclerae are anicteric. Heart Sounds: S1, S2. Lungs: Poor inspiratory effort. Decreased breath sounds bilaterally. Abdomen: Soft. No tenderness elicited. Extremities: 1+ edema. IMPRESSION: 1. Leukocytosis. 2. Altered mental status. 3. Congestive heart failure. 4. Status post mitral valve replacement. PLAN: I would observe off of antibiotic therapy in the absence of an identifiable focus of infection. I would hold off on antibiotics. Repeat cultures off of antibiotics for persistent leukocytosis. I would consider Hematology evaluation in light of unexplained leukocytosis. I will follow. Thank you for the kind referral. MATTHEW PASTRANA M.D. [id number]
[2018-11-03] MEDS ORDERED: PT OWN MED DRAWER 7, Y5N ONE (05:02)
[2018-11-03] MEDS: INSULIN SLIDING SCALE (NOVOLOG) 1 VIAL SQ SCH ×4 (06:29→22:53)
[2018-11-03] MEDS: METHIMAZOLE 5 MG TABLET (FP) PO SCH (06:29)
[2018-11-03 08:45] LABS: BASO % 0.4 % (0-2.0); EOS % 1.6 % (0-4.5); HEMATOCRIT 35.4 % (32.4-45.2); HEMOGLOBIN 12.1 GM/dL (10.7-15.3); LYMPH % 16.7 % (8-40); MCH 32.8 pg (25.7-33.7); MEAN CELL VOLUME 96.3 fl (80-96); MEAN PLT VOLUME 8.2 fl (7.5-11.1); MONO % 7.8 % (3.8-10.2); NEUT % 73.5 % (42.8-82.8); PLATELET COUNT 225 K/MM3 (134-434); RBC 3.68 M/mm3 (3.60-5.2); RDW 16.2 % (11.6-15.6); WHITE BLOOD COUNT 10.1 K/mm3 (4.0-10.0)
[2018-11-03 08:57] LABS: INR 2.13 (0.83-1.09); PROTHROMBIN TIME (PATIENT) 25.3 SEC (9.7-13.0)
--- NOTE | 2018-11-03 09:34 | PN ---
Progress Note (short form) - Note Progress Note: Neurology HISTORY OF PRESENT ILLNESS: 78 yo f w/ PMH Dementia, Afib on coumadin, bioprosthetic mitral valve replacement, CHF, DM, Hyperthyroidism and asthma who was BIBEMS from [facility] for a 3 day hx of AMS and lethargy. Per records, the patient had been having increasingly confused and hypersolomnent over 3 days. On interview, the patient was able to carry a limited conversation and denied any complaints. During my evaluation, she was awake, alert, interactive, knows she's in the hospital, can tell me it's 2019, seems closer to baseline. No acute neurologic events over the weekend. Remains stable. Allergies ampicillin [Ampicillin] Allergy (Severe, Verified 12/17/17 14:22) Swelling codeine [Codeine] Allergy (Verified 12/17/17 14:22) Swelling Active Medications Acetaminophen (Tylenol -) 650 mg PO Q4H PRN PRN Reason: FEVER Albuterol Sulfate (Ventolin 0.083% Nebulizer Soln -) 1 amp NEB Q4H PRN PRN Reason: SHORT OF BREATH/WHEEZING Last Admin: 10/30/18 16:16 Dose: 1 amp Atorvastatin Calcium (Lipitor -) 20 mg PO HS [facility] Last Admin: 11/02/18 21:52 Dose: 20 mg Diltiazem HCl (Cardizem Cd -) 360 mg PO DAILY [facility] Last Admin: 11/02/18 10:49 Dose: 360 mg Donepezil HCl (Aricept -) 5 mg PO HS [facility] Last Admin: 11/02/18 21:52 Dose: 5 mg Furosemide (Lasix -) 40 mg PO DAILY [facility] Last Admin: 11/02/18 10:49 Dose: 40 mg Insulin Aspart (Novolog Vial Sliding Scale -) 1 vial SQ ACHS [facility]; Protocol Last Admin: 11/03/18 06:29 Dose: Not Given Losartan Potassium (Cozaar -) 25 mg PO HS [facility] Last Admin: 11/02/18 21:52 Dose: 25 mg Methimazole (Tapazole -) 5 mg PO AM [facility] Last Admin: 11/03/18 06:29 Dose: 5 mg Metoprolol Tartrate (Lopressor -) 25 mg PO DAILY [facility] Last Admin: 11/02/18 10:49 Dose: 25 mg Polyethylene Glycol (Miralax (For Daily Use) -) 17 gm PO DAILY [facility] Last Admin: 11/02/18 10:49 Dose: 17 gm Warfarin Sodium (Coumadin -) 3 mg PO DAILY@1800 [facility] Last Admin: 11/02/18 17:53 Dose: 3 mg PHYSICAL EXAMINATION Vital Signs Temperature 98.2 F 11/03/18 06:00 Pulse Rate 65 11/03/18 06:00 Respiratory Rate 18 11/03/18 06:00 Blood Pressure 117/60 11/03/18 06:00 O2 Sat by Pulse Oximetry (%) 97 11/02/18 20:55 GENERAL: Awake, alert, oriented to self and place only. Baseline unknown. Often confused as per CT records HEAD: Normal with no signs of trauma. EYES: Pupils equal, round and reactive to light, extraocular movements intact, sclera anicteric, conjunctiva clear. No lid lag. LUNGS: Breath sounds equal, Mild crackles b/l. No accessory muscle use. HEART: Regular rate and rhythm, normal S1 and S2 without murmur, rub or gallop. ABDOMEN: Soft, nontender, not distended, normoactive bowel sounds, no guarding, no rebound, no masses. No hepatomegaly or splenomegaly. LOWER EXTREMITIES: 2+ pulses, warm, well-perfused. No calf tenderness. No peripheral edema. NEUROLOGICAL: Cranial nerves II-X intact. Hard to understand speech. responses to questions delayed. SKIN: Warm, dry, normal turgor, no rashes or lesions noted, normal capillary refill. No pressure ulcers noted. CBCD WBC 10.1 K/mm3 (4.0-10.0) H 11/03/18 08:15 RBC 3.68 M/mm3 (3.60-5.2) 11/03/18 08:15 Hgb 12.1 GM/dL (10.7-15.3) 11/03/18 08:15 Hct 35.4 % (32.4-45.2) 11/03/18 08:15 MCV 96.3 fl (80-96) H 11/03/18 08:15 MCHC 34.0 g/dl (32.0-36.0) 11/03/18 08:15 RDW 16.2 % (11.6-15.6) H 11/03/18 08:15 Plt Count 225 K/MM3 (134-434) 11/03/18 08:15 MPV 8.2 fl (7.5-11.1) 11/03/18 08:15 CMP Sodium 141 mmol/L (136-145) 11/02/18 06:30 Potassium 4.6 mmol/L (3.5-5.1) 11/02/18 06:30 Chloride 108 mmol/L (98-107) H 11/02/18 06:30 Carbon Dioxide 26 mmol/L (21-32) 11/02/18 06:30 Anion Gap 7 MMOL/L (8-16) L 11/02/18 06:30 BUN 19 mg/dL (7-18) H 11/02/18 06:30 Creatinine 0.7 mg/dL (0.55-1.3) 11/02/18 06:30 Creat Clearance w eGFR > 60 (>60) 11/02/18 06:30 Random Glucose 91 mg/dL (74-106) 11/02/18 06:30 Calcium 8.3 mg/dL (8.5-10.1) L 11/02/18 06:30 Total Bilirubin 0.5 mg/dL (0.2-1) 11/02/18 06:30 AST 18 U/L (15-37) 11/02/18 06:30 ALT 13 U/L (13-61) 11/02/18 06:30 Alkaline Phosphatase 45 U/L (45-117) 11/02/18 06:30 Total Protein 5.5 g/dl (6.4-8.2) L 11/02/18 06:30 Albumin 2.4 g/dl (3.4-5.0) L 11/02/18 06:30 CARDIAC ENZYMES Creatine Kinase 248 IU/L (26-192) H 10/28/18 05:00 Troponin I 0.08 ng/ml (0.00-0.05) H 10/31/18 08:39 ASSESSMENT/PLAN: 78 yo f w/ PMH Dementia, Afib on coumadin, bioprosthetic mitral valve replacement, CHF, DM, Hyperthyroidism and asthma who was BIBEMS from [facility] for a 3 day hx of AMS and lethargy. Per records, the patient had been having increasingly confused and hypersolomnent over 3 days. On interview, the patient was able to carry a limited conversation and denied any complaints. During my evaluation, she was awake, alert, interactive, knows she's in the hospital, can tell me it's 2019 but slow in responses. Presented with slightly increased WBC, CT head was negative, CXR suspicious for right infiltrate. Continue medical optimization, appears to have improved mental status. Monitor Afib, INR. Maintain euglycemic range. Restarted on Donepizil at current dose, likely superimposed delirium on dementia. Advised her to make outpatient follow up appt for formal memory testing. Neurologically stable without acute events.
[2018-11-03] MEDS: FUROSEMIDE 40 MG TABLET (FP) PO SCH (10:34)
[2018-11-03] MEDS: POLYETHYLENE GLYCOL 3350 119 GM BTL PO SCH (10:34)
[2018-11-03] MEDS: METOPROLOL TARTRATE 25 MG TABLET (FP) PO SCH (10:34)
--- NOTE | 2018-11-03 11:20 | PN ---
Progress Note, Physician Chief Complaint: AMS Elevated troponin History of Present Illness: KARLEY Trejo historian Sent in from SNF for AMS Afebrile mild leukocytosis CT head unremarkable EKG-SR with 1degree AV block, has hx of paroxysmal afib- On warfarin Hx of dementia IV abx on hold INR therapeutic, warfarin restarted - Current Medication List Current Medications: Active Medications Acetaminophen (Tylenol -) 650 mg PO Q4H PRN PRN Reason: FEVER Albuterol Sulfate (Ventolin 0.083% Nebulizer Soln -) 1 amp NEB Q4H PRN PRN Reason: SHORT OF BREATH/WHEEZING Last Admin: 10/30/18 16:16 Dose: 1 amp Atorvastatin Calcium (Lipitor -) 20 mg PO HS [facility] Last Admin: 11/02/18 21:52 Dose: 20 mg Diltiazem HCl (Cardizem Cd -) 360 mg PO DAILY [facility] Last Admin: 11/03/18 10:34 Dose: 360 mg Donepezil HCl (Aricept -) 5 mg PO HS [facility] Last Admin: 11/02/18 21:52 Dose: 5 mg Furosemide (Lasix -) 40 mg PO DAILY [facility] Last Admin: 11/03/18 10:34 Dose: 40 mg Insulin Aspart (Novolog Vial Sliding Scale -) 1 vial SQ ACHS [facility]; Protocol Last Admin: 11/03/18 06:29 Dose: Not Given Losartan Potassium (Cozaar -) 25 mg PO HS [facility] Last Admin: 11/02/18 21:52 Dose: 25 mg Methimazole (Tapazole -) 5 mg PO AM [facility] Last Admin: 11/03/18 06:29 Dose: 5 mg Metoprolol Tartrate (Lopressor -) 25 mg PO DAILY [facility] Last Admin: 11/03/18 10:34 Dose: 25 mg Polyethylene Glycol (Miralax (For Daily Use) -) 17 gm PO DAILY [facility] Last Admin: 11/03/18 10:34 Dose: 17 gm Warfarin Sodium (Coumadin -) 3 mg PO DAILY@1800 [facility] Last Admin: 11/02/18 17:53 Dose: 3 mg - Objective Vital Signs: Vital Signs Temperature 98.2 F 11/03/18 10:00 Pulse Rate 65 11/03/18 10:00 Respiratory Rate 19 11/03/18 10:00 Blood Pressure 106/68 11/03/18 10:00 O2 Sat by Pulse Oximetry (%) 96 11/03/18 09:00 Constitutional: Yes: Well Nourished, No Distress, Calm Cardiovascular: Yes: Regular Rate and Rhythm Respiratory: Yes: Regular Gastrointestinal: Yes: Normal Bowel Sounds, Soft Genitourinary: Yes: WNL Musculoskeletal: Yes: Muscle Weakness Extremities: Yes: WNL Edema: Yes Edema: LLE: 2+, RLE: 2+ Peripheral Pulses WNL: Yes Neurological: Yes: Alert, Pre-Existing Deficit Psychiatric: Yes: Alert Labs: CBC, BMP 11/03/18 08:15 11/02/18 06:30 INR, PTT INR 2.13 (0.83-1.09) H 11/03/18 08:15 Problem List - Problems (1) VHD (valvular heart disease) Assessment/Plan: -Cardiology consult -On Warfarin -INR goal 2-3 -Monitor daily INR Code(s): I38 - ENDOCARDITIS, VALVE UNSPECIFIED (2) History of mitral valve replacement with bioprosthetic valve Assessment/Plan: -Cardiology consult -On Warfarin -INR goal 2-3 -Monitor daily INR Code(s): Z95.3 - PRESENCE OF XENOGENIC HEART VALVE (3) Diabetes Assessment/Plan: -Last A1c in 12/2017 at 6.5 -BGM AC HS -Novolog sliding scale -diabetic low sodium diet -repeat A1C Code(s): E11.9 - TYPE 2 DIABETES MELLITUS WITHOUT COMPLICATIONS (4) Altered mental status Assessment/Plan: -UC/BC: Microbiology 10/28/18 04:52 Blood - Peripheral Venous Blood Culture - Final NO GROWTH AFTER 5 DAYS INCUBATION 10/28/18 04:52 Blood - Peripheral Venous Blood Culture - Final NO GROWTH AFTER 5 DAYS INCUBATION 10/27/18 23:56 Urine - Urine - Catheterized Urine Culture - Final NO GROWTH OBTAINED -afebrile -Neurology consult -CT head unremarkable -MRI upon Neurology discretion -Check B12 -Started on Donepezil 5 mg po HS Code(s): R41.82 - ALTERED MENTAL STATUS, UNSPECIFIED Qualifiers: Altered mental status type: somnolence Qualified Code(s): R40.0 - Somnolence (5) Metabolic encephalopathy Assessment/Plan: -mild leukocytosis -Seen by ID -Off abx -Afebrile -cleared by ID to be discharged back to [facility] Code(s): G93.41 - METABOLIC ENCEPHALOPATHY (6) Troponin level elevated Assessment/Plan: -no changes in EKG -demand ischemia and not an acute coronary syndrome -Continue medical therapy with Losartan/metoprolol/Cardizem -differential-CHF, pericarditis, pulmonary htn -Echo reviewed -cardiology consult -Tele monitoring -digoxin discontinued -Atorvastatin 20 mg po hs, last LDL 121 mg/dl -LDL at 96 mg/dl, with goal of <70 mg/dl Code(s): R74.8 - ABNORMAL LEVELS OF OTHER SERUM ENZYMES (7) Paroxysmal A-fib Assessment/Plan: -In SR with 1st degree av block -cardiology consult -On warfarin-therapeutic Code(s): I48.0 - PAROXYSMAL ATRIAL FIBRILLATION Assessment/Plan See problem list Physical therapy
--- NOTE | 2018-11-03 11:21 | DS ---
Physical Examination Vital Signs: Vital Signs Temperature 98.2 F 11/03/18 10:00 Pulse Rate 65 11/03/18 10:00 Respiratory Rate 19 11/03/18 10:00 Blood Pressure 106/68 11/03/18 10:00 O2 Sat by Pulse Oximetry (%) 96 11/03/18 09:00 Findings/Remarks: The patient is only able to give a limited hx. The following was obtained from [place] records and the EMR. The patient is a 78 yo f w/ PMH Dementia, Afib on coumadin, bioprosthetic mitral valve replacement, CHF, DM, Hyperthyroidism and asthma who was BIBEMS from [facility] for a 3 day hx of AMS and lethargy. Per [place] records, the patient has been increasingly confused and hypersolomnent over the past 3 days. On interview, the patient was able to carry a limited conversation and denied any complaints. Per patient, she is able to ambulate and is frequently OOB to chair in [place] Constitutional: Yes: Well Nourished, No Distress, Calm Cardiovascular: Yes: Regular Rate and Rhythm Respiratory: Yes: Regular Gastrointestinal: Yes: Normal Bowel Sounds, Soft Musculoskeletal: Yes: Muscle Weakness Extremities: Yes: WNL Edema: Yes Edema: LLE: 2+, RLE: 2+ Peripheral Pulses WNL: Yes Neurological: Yes: Alert, Pre-Existing Deficit Psychiatric: Yes: Alert Labs: CBC, BMP 11/03/18 08:15 11/02/18 06:30 Discharge Summary Reason For Visit: EVELATED TROPONIN LEVEL,ALTERED MENTAL STATUS Current Active Problems Altered mental status (Acute) Paroxysmal A-fib (Acute) Troponin level elevated (Acute) Hospital Course: Laboratory Last Values WBC 10.1 K/mm3 (4.0-10.0) H 11/03/18 08:15 RBC 3.68 M/mm3 (3.60-5.2) 11/03/18 08:15 Hgb 12.1 GM/dL (10.7-15.3) 11/03/18 08:15 Hct 35.4 % (32.4-45.2) 11/03/18 08:15 MCV 96.3 fl (80-96) H 11/03/18 08:15 MCH 32.8 pg (25.7-33.7) 11/03/18 08:15 MCHC 34.0 g/dl (32.0-36.0) 11/03/18 08:15 RDW 16.2 % (11.6-15.6) H 11/03/18 08:15 Plt Count 225 K/MM3 (134-434) 11/03/18 08:15 MPV 8.2 fl (7.5-11.1) 11/03/18 08:15 Absolute Neuts (auto) 7.4 K/mm3 (1.5-8.0) 11/03/18 08:15 Total Counted 100 11/01/18 05:25 Neutrophils % 73.5 % (42.8-82.8) 11/03/18 08:15 Neutrophils % (Manual) 70.6 % (42.8-82.8) 11/02/18 06:30 Band Neutrophils % 0.0 % 11/02/18 06:30 Lymphocytes % 16.7 % (8-40) 11/03/18 08:15 Lymphocytes % (Manual) 12.8 % (8-40) 11/02/18 06:30 Monocytes % 7.8 % (3.8-10.2) 11/03/18 08:15 Monocytes % (Manual) 9 % (3.8-10.2) 11/02/18 06:30 Eosinophils % 1.6 % (0-4.5) 11/03/18 08:15 Eosinophils % (Manual) 0.0 % (0-4.5) D 11/02/18 06:30 Basophils % 0.4 % (0-2.0) 11/03/18 08:15 Basophils % (Manual) 0.0 % (0-2.0) 11/02/18 06:30 Myelocytes % (Man) 3 % (0-2) H D 11/02/18 06:30 Promyelocytes % (Man) 0 % (0-2) 11/02/18 06:30 Blast Cells % (Manual) 0 % (0-0) 11/02/18 06:30 Nucleated RBC % 0 % (0-0) 11/03/18 08:15 Metamyelocytes 0 % (0-2) D 11/02/18 06:30 Differential Comment Man diff performed 10/27/18 20:38 Smudge Cells Few 11/01/18 05:25 Hypochromia 0 11/02/18 06:30 Platelet Estimate Normal 11/02/18 06:30 Platelet Comment No clumping noted 11/01/18 05:25 Polychromasia 0 11/02/18 06:30 Poikilocytosis 0 11/02/18 06:30 Anisocytosis 1+ 11/02/18 06:30 Microcytosis 0 11/02/18 06:30 Macrocytosis 1+ 11/02/18 06:30 Ovalocytes 1+ 10/29/18 06:00 PT with INR 25.30 SEC (9.7-13.0) H 11/03/18 08:15 INR 2.13 (0.83-1.09) H 11/03/18 08:15 PTT (Actin FS) 36.1 SECONDS (25.2-36.5) 10/27/18 20:38 Sodium 141 mmol/L (136-145) 11/02/18 06:30 Potassium 4.6 mmol/L (3.5-5.1) 11/02/18 06:30 Chloride 108 mmol/L (98-107) H 11/02/18 06:30 Carbon Dioxide 26 mmol/L (21-32) 11/02/18 06:30 Anion Gap 7 MMOL/L (8-16) L 11/02/18 06:30 BUN 19 mg/dL (7-18) H 11/02/18 06:30 Creatinine 0.7 mg/dL (0.55-1.3) 11/02/18 06:30 Creat Clearance w eGFR > 60 (>60) 11/02/18 06:30 POC Glucometer 111 UNITS (80-120) 11/03/18 05:07 Random Glucose 91 mg/dL (74-106) 11/02/18 06:30 Lactic Acid 1.3 mmol/L (0.4-2.0) 10/28/18 04:55 Calcium 8.3 mg/dL (8.5-10.1) L 11/02/18 06:30 Phosphorus 3.7 mg/dL (2.5-4.9) 10/28/18 05:00 Magnesium 2.3 mg/dL (1.8-2.4) 10/28/18 05:00 Total Bilirubin 0.5 mg/dL (0.2-1) 11/02/18 06:30 AST 18 U/L (15-37) 11/02/18 06:30 ALT 13 U/L (13-61) 11/02/18 06:30 Alkaline Phosphatase 45 U/L (45-117) 11/02/18 06:30 Creatine Kinase 248 IU/L (26-192) H 10/28/18 05:00 Creatine Kinase Index 1.6 % (0.0-5.0) 10/28/18 05:00 CK-MB (CK-2) 4.1 ng/mL (0.5-3.6) H 10/28/18 05:00 Troponin I 0.08 ng/ml (0.00-0.05) H 10/31/18 08:39 B-Natriuretic Peptide 502.7 pg/ml (5-450) H 10/28/18 05:00 Total Protein 5.5 g/dl (6.4-8.2) L 11/02/18 06:30 Albumin 2.4 g/dl (3.4-5.0) L 11/02/18 06:30 Triglycerides 82 mg/dL (0-150) 10/29/18 06:00 Cholesterol 140 mg/dL (50-200) 10/29/18 06:00 Total LDL Cholesterol 96 mg/dL (5-100) 10/29/18 06:00 HDL Cholesterol 32 mg/dL (40-60) L 10/29/18 06:00 Vitamin B12 405 pg/ml (193-986) 10/29/18 06:00 TSH 1.34 uIU/ml (0.358-3.74) 10/29/18 06:00 Free T4 1.21 ng/dl (0.76-1.46) 10/29/18 06:00 Urine Color Nelsy 10/27/18 23:56 Urine Appearance Slcloudy 10/27/18 23:56 Urine pH 5.0 (5.0-8.0) 10/27/18 23:56 Ur Specific Aurora 1.027 (1.010-1.035) 10/27/18 23:56 Urine Protein Negative (NEGATIVE) 10/27/18 23:56 Urine Glucose (UA) Negative (NEGATIVE) 10/27/18 23:56 Urine Ketones Negative (NEGATIVE) 10/27/18 23:56 Urine Blood Negative (NEGATIVE) 10/27/18 23:56 Urine Nitrite Negative (NEGATIVE) 10/27/18 23:56 Urine Bilirubin 2.0 (<2.0 mg/dL) 10/27/18 23:56 Urine Urobilinogen 4.0 e.u/dl mg/dL (0.2-1.0) H 10/27/18 23:56 Ur Leukocyte Esterase Negative (NEGATIVE) 10/27/18 23:56 Digoxin 0.93 ng/ml (0.8-2.0) 10/28/18 05:00 Microbiology 10/28/18 04:52 Blood - Peripheral Venous Blood Culture - Final NO GROWTH AFTER 5 DAYS INCUBATION 10/28/18 04:52 Blood - Peripheral Venous Blood Culture - Final NO GROWTH AFTER 5 DAYS INCUBATION 10/27/18 23:56 Urine - Urine - Catheterized Urine Culture - Final NO GROWTH OBTAINED Started on Donepezil Monitor off abx INR therapeutic goal 2-3 Condition: Stable - Instructions Diet, Activity, Other Instructions: Started on Donepezil Monitor off abx INR therapeutic goal 2-3 Repeat INR in 3 days Referrals: ON STAFF,NOT [Primary Care Provider] - Disposition: [facility] F[facility] - Home Medications Comprehensive Discharge Medication List: Ambulatory Orders Diltiazem Cd [Cardizem Cd -] 360 mg PO DAILY tab 08/13/17 Furosemide [Lasix -] 40 mg PO DAILY #30 tablet 10/03/17 Methimazole [Tapazole -] 5 mg PO AM tablet 11/05/17 Digoxin 125 mcg PO HS 12/17/17 Donepezil HCl [Aricept] 5 mg PO HS 12/17/17 Losartan Potassium 25 mg PO HS 12/17/17 Warfarin Sodium 2.5 mg PO HS 12/17/17 Acetaminophen [Tylenol .Regular Strength -] 650 mg PO Q4H PRN tablet 12/22/17 Linaclotide [Linzess] 72 mcg PO DAILY #30 capsule 12/22/17 Megestrol Acetate [Megace -] 40 mg PO DAILY tablet 12/22/17 Polyethylene Glycol 3350 [Miralax (For Daily Use) -] 17 gm PO DAILY #1 bottle
[2018-11-03 12:32] LABS: ANISOCYTOSIS 0; MACROCYTOSIS 0; PLATELET ESTIMATE NORMAL
--- NOTE | 2018-11-03 12:57 | PN ---
Progress Note, Physician History of Present Illness: pulmonary alert,no distress,-sob - Current Medication List Current Medications: Active Medications Acetaminophen (Tylenol -) 650 mg PO Q4H PRN PRN Reason: FEVER Albuterol Sulfate (Ventolin 0.083% Nebulizer Soln -) 1 amp NEB Q4H PRN PRN Reason: SHORT OF BREATH/WHEEZING Last Admin: 10/30/18 16:16 Dose: 1 amp Atorvastatin Calcium (Lipitor -) 20 mg PO [facility] Last Admin: 11/02/18 21:52 Dose: 20 mg Diltiazem HCl (Cardizem Cd -) 360 mg PO DAILY [facility] Last Admin: 11/03/18 10:34 Dose: 360 mg Donepezil HCl (Aricept -) 5 mg PO [facility] Last Admin: 11/02/18 21:52 Dose: 5 mg Furosemide (Lasix -) 40 mg PO DAILY [facility] Last Admin: 11/03/18 10:34 Dose: 40 mg Insulin Aspart (Novolog Vial Sliding Scale -) [address] [facility]; Protocol Last Admin: 11/03/18 11:41 Dose: Not Given Losartan Potassium (Cozaar -) 25 mg PO [facility] Last Admin: 11/02/18 21:52 Dose: 25 mg Methimazole (Tapazole -) 5 mg PO AM [facility] Last Admin: 11/03/18 06:29 Dose: 5 mg Metoprolol Tartrate (Lopressor -) 25 mg PO DAILY [facility] Last Admin: 11/03/18 10:34 Dose: 25 mg Polyethylene Glycol (Miralax (For Daily Use) -) 17 gm PO DAILY [facility] Last Admin: 11/03/18 10:34 Dose: 17 gm Warfarin Sodium (Coumadin -) 3 mg PO DAILY@1800 [facility] Last Admin: 11/02/18 17:53 Dose: 3 mg - Objective Vital Signs: Vital Signs Temperature 98.2 F 11/03/18 10:00 Pulse Rate 65 11/03/18 10:00 Respiratory Rate 11/03/18 10:00 Blood Pressure 106/68 11/03/18 10:00 O2 Sat by Pulse Oximetry (%) 96 11/03/18 09:00 Constitutional: Yes: Well Nourished, Calm Eyes: Yes: WNL HENT: Yes: WNL Neck: Yes: WNL Cardiovascular: Yes: Pulse Irregular, S1, S2 Respiratory: Yes: Wheezes (few wheezes) Gastrointestinal: Yes: Normal Bowel Sounds, Soft Extremities: Yes: WNL Edema: No Labs: CBC, BMP 11/03/18 08:15 11/02/18 06:30 INR, PTT INR 2.13 (0.83-1.09) H 11/03/18 08:15 Problem List - Problems (1) Altered mental status Code(s): R41.82 - ALTERED MENTAL STATUS, UNSPECIFIED Qualifiers: Altered mental status type: somnolence Qualified Code(s): R40.0 - Somnolence (2) Troponin level elevated Code(s): R74.8 - ABNORMAL LEVELS OF OTHER SERUM ENZYMES (3) Anemia Code(s): D64.9 - ANEMIA, UNSPECIFIED Qualifiers: Anemia type: other cause Other causes of anemia: acute posthemorrhagic Qualified Code(s): D62 - Acute posthemorrhagic anemia (4) Asthma Code(s): J45.909 - UNSPECIFIED ASTHMA, UNCOMPLICATED Qualifiers: Asthma severity: mild persistent (5) Atrial fibrillation Code(s): I48.91 - UNSPECIFIED ATRIAL FIBRILLATION Qualifiers: Atrial fibrillation type: permanent Qualified Code(s): I48.2 - Chronic atrial fibrillation (6) CHF (congestive heart failure) Code(s): I50.9 - HEART FAILURE, UNSPECIFIED (7) Confusion Code(s): R41.0 - DISORIENTATION, UNSPECIFIED (8) DVT (deep venous thrombosis) Code(s): I82.409 - ACUTE EMBOLISM AND THOMBOS UNSP DEEP VN UNSP LOWER EXTREMITY Qualifiers: DVT location: non-extremity vein Chronicity: unspecified Qualified Code(s ): I82.90 - Acute embolism and thrombosis of unspecified vein (9) Elevated INR Code(s): R79.1 - ABNORMAL COAGULATION PROFILE (10) H/O heart valve replacement with bioprosthetic valve Code(s): Z95.3 - PRESENCE OF XENOGENIC HEART VALVE (11) History of mitral valve replacement with bioprosthetic valve Code(s): Z95.3 - PRESENCE OF XENOGENIC HEART VALVE (12) Hyperlipidemia Code(s): E78.5 - HYPERLIPIDEMIA, UNSPECIFIED (13) Hypertension Code(s): I10 - ESSENTIAL (PRIMARY) HYPERTENSION Qualifiers: Hypertension type: essential hypertension Qualified Code(s): I10 - Essential (primary) hypertension (14) Hyperthyroidism Code(s): E05.90 - THYROTOXICOSIS, UNSP WITHOUT THYROTOXIC CRISIS OR STORM (15) Pulmonary arterial hypertension Code(s): I27.2 - OTHER SECONDARY PULMONARY HYPERTENSION * DO NOT USE * Assessment/Plan A/P LV Diastolic Dysfunction Atrial Fibrillation +troponins likely Demand Ischemia Asthma h/o MVR h/o PE/DVT ALMONTE Dementia - inhaled bronchodilators as needed - O2 to keep SpO2 >90% - rate control - continue anticoagulation DR YE
[2018-11-03] MEDS: WARFARIN NA 3 MG TABLET PO SCH (17:16)
[2018-11-03] MEDS: ALBUTEROL SO4 0.083% IH SOL 2.5 MG/3 ML VIAL.NEB. NEB PRN (20:30)
[2018-11-03] MEDS: DONEPEZIL HCL 5 MG TABLET (FP) PO SCH (22:52)
[2018-11-03] MEDS: LOSARTAN POTASSIUM 25 MG TABLET PO SCH (22:52)
[2018-11-03] MEDS: ATORVASTATIN CA 20 MG TABLET (FP) PO SCH (22:53)
[2018-11-04] MEDS: METHIMAZOLE 5 MG TABLET (FP) PO SCH (07:09)
[2018-11-04] MEDS: INSULIN SLIDING SCALE (NOVOLOG) 1 VIAL SQ SCH ×3 (07:09→16:18)
[2018-11-04 08:23] LABS: BASO % 0.5 % (0-2.0); EOS % 1.3 % (0-4.5); HEMATOCRIT 34.9 % (32.4-45.2); HEMOGLOBIN 12.2 GM/dL (10.7-15.3); LYMPH % 14.9 % (8-40); MCH 33.5 pg (25.7-33.7); MCHC 34.9 g/dl (32.0-36.0); MEAN CELL VOLUME 96.2 fl (80-96); MONO % 7.2 % (3.8-10.2); NEUT % 76.1 % (42.8-82.8); PLATELET COUNT 231 K/MM3 (134-434); RBC 3.63 M/mm3 (3.60-5.2); RDW 16.3 % (11.6-15.6); WHITE BLOOD COUNT 9.8 K/mm3 (4.0-10.0)
[2018-11-04 08:51] LABS: ALBUMIN 2.4 g/dl (3.4-5.0); ALK PHOS 44 U/L (45-117); ANION GAP 8 MMOL/L (8-16); BILIRUBIN,TOTAL 0.5 mg/dL (0.2-1); BLOOD UREA NITROGEN 18 mg/dL (7-18); CALCIUM 8.1 mg/dL (8.5-10.1); CHLORIDE 108 mmol/L (98-107); CO2 23 mmol/L (21-32); CREATININE 0.6 mg/dL (0.55-1.3); GLUCOSE,RANDOM 93 mg/dL (74-106); POTASSIUM 4.2 mmol/L (3.5-5.1); SGOT/AST 12 U/L (15-37); SGPT/ALT 10 U/L (13-61); SODIUM 139 mmol/L (136-145); TOT PROT 5.4 g/dl (6.4-8.2)
[2018-11-04] MEDS ORDERED: PT OWN MED DRAWER 7, Y5N ONE (09:50)
[2018-11-04] MEDS: ALBUTEROL SO4 0.083% IH SOL 2.5 MG/3 ML VIAL.NEB. NEB PRN (09:56)
[2018-11-04] MEDS: POLYETHYLENE GLYCOL 3350 119 GM BTL PO SCH (09:59)
[2018-11-04] MEDS: METOPROLOL TARTRATE 25 MG TABLET (FP) PO SCH (10:00)
[2018-11-04] MEDS: FUROSEMIDE 40 MG TABLET (FP) PO SCH (10:00)
[2018-11-04 13:48] LABS: ANISOCYTOSIS 1+; MACROCYTOSIS 0; PLATELET ESTIMATE NORMAL
--- NOTE | 2018-11-04 14:37 | PN ---
Progress Note, Physician Chief Complaint: AMS Elevated troponin History of Present Illness: KARLEY Trejo historian Sent in from SNF for AMS Afebrile mild leukocytosis CT head unremarkable EKG-SR with 1degree AV block, has hx of paroxysmal afib- On warfarin Hx of dementia IV abx on hold INR therapeutic, warfarin restarted Awaiting d/c to SNF - Current Medication List Current Medications: Active Medications Acetaminophen (Tylenol -) 650 mg PO Q4H PRN PRN Reason: FEVER Albuterol Sulfate (Ventolin 0.083% Nebulizer Soln -) 1 amp NEB Q4H PRN PRN Reason: SHORT OF BREATH/WHEEZING Last Admin: 11/04/18 09:56 Dose: 1 amp Atorvastatin Calcium (Lipitor -) 20 mg PO HS [facility] Last Admin: 11/03/18 22:53 Dose: 20 mg Diltiazem HCl (Cardizem Cd -) 360 mg PO DAILY [facility] Last Admin: 11/04/18 10:00 Dose: 360 mg Donepezil HCl (Aricept -) 5 mg PO HS [facility] Last Admin: 11/03/18 22:52 Dose: 5 mg Furosemide (Lasix -) 40 mg PO DAILY [facility] Last Admin: 11/04/18 10:00 Dose: 40 mg Insulin Aspart (Novolog Vial Sliding Scale -) 1 vial SQ ACHS [facility]; Protocol Last Admin: 11/04/18 11:54 Dose: Not Given Losartan Potassium (Cozaar -) 25 mg PO HS [facility] Last Admin: 11/03/18 22:52 Dose: 25 mg Methimazole (Tapazole -) 5 mg PO AM [facility] Last Admin: 11/04/18 07:09 Dose: 5 mg Metoprolol Tartrate (Lopressor -) 25 mg PO DAILY [facility] Last Admin: 11/04/18 10:00 Dose: 25 mg Polyethylene Glycol (Miralax (For Daily Use) -) 17 gm PO DAILY [facility] Last Admin: 11/04/18 09:59 Dose: 17 gm Warfarin Sodium (Coumadin -) 3 mg PO DAILY@1800 [facility] Last Admin: 11/03/18 17:16 Dose: 3 mg - Objective Vital Signs: Vital Signs Temperature 98.2 F 11/04/18 10:00 Pulse Rate 62 11/04/18 10:00 Respiratory Rate 17 11/04/18 10:00 Blood Pressure 123/75 11/04/18 10:00 O2 Sat by Pulse Oximetry (%) 96 11/04/18 09:00 Constitutional: Yes: Well Nourished, No Distress, Calm Cardiovascular: Yes: Regular Rate and Rhythm Respiratory: Yes: Regular Genitourinary: Yes: WNL Musculoskeletal: Yes: Muscle Weakness Extremities: Yes: WNL Edema: Yes Edema: LLE: 2+, RLE: 2+ Peripheral Pulses WNL: Yes Neurological: Yes: Alert, Pre-Existing Deficit Psychiatric: Yes: Alert Labs: CBC, BMP 11/04/18 07:50 11/04/18 07:50 INR, PTT INR 2.13 (0.83-1.09) H 11/03/18 08:15 Problem List - Problems (1) VHD (valvular heart disease) Assessment/Plan: -Cardiology consult -On Warfarin -INR goal 2-3 -Monitor daily INR Code(s): I38 - ENDOCARDITIS, VALVE UNSPECIFIED (2) History of mitral valve replacement with bioprosthetic valve Assessment/Plan: -Cardiology consult -On Warfarin -INR goal 2-3 -Monitor daily INR Code(s): Z95.3 - PRESENCE OF XENOGENIC HEART VALVE (3) Diabetes Assessment/Plan: -Last A1c in 12/2017 at 6.5 -BGM AC HS -Novolog sliding scale -diabetic low sodium diet -repeat A1C 6.6 Code(s): E11.9 - TYPE 2 DIABETES MELLITUS WITHOUT COMPLICATIONS (4) Altered mental status Assessment/Plan: -UC/BC: Microbiology 10/28/18 04:52 Blood - Peripheral Venous Blood Culture - Final NO GROWTH AFTER 5 DAYS INCUBATION 10/28/18 04:52 Blood - Peripheral Venous Blood Culture - Final NO GROWTH AFTER 5 DAYS INCUBATION 10/27/18 23:56 Urine - Urine - Catheterized Urine Culture - Final NO GROWTH OBTAINED -afebrile -Neurology consult -CT head unremarkable -MRI upon Neurology discretion -Check B12 -Started on Donepezil 5 mg po HS Code(s): R41.82 - ALTERED MENTAL STATUS, UNSPECIFIED Qualifiers: Altered mental status type: somnolence Qualified Code(s): R40.0 - Somnolence (5) Metabolic encephalopathy Assessment/Plan: -mild leukocytosis -Seen by ID -Off abx -Afebrile Code(s): G93.41 - METABOLIC ENCEPHALOPATHY (6) Troponin level elevated Assessment/Plan: -no changes in EKG -demand ischemia and not an acute coronary syndrome -Continue medical therapy with Losartan/metoprolol/Cardizem -differential-CHF, pericarditis, pulmonary htn -Echo reviewed -cardiology consult -Tele monitoring -digoxin discontinued -Atorvastatin 20 mg po hs, last LDL 121 mg/dl -LDL at 96 mg/dl, with goal of <70 mg/dl Code(s): R74.8 - ABNORMAL LEVELS OF OTHER SERUM ENZYMES (7) Paroxysmal A-fib Assessment/Plan: -In SR with 1st degree av block -cardiology consult -On warfarin-therapeutic Code(s): I48.0 - PAROXYSMAL ATRIAL FIBRILLATION Assessment/Plan See problem list Physical therapy
[2018-11-04 15:43] VITALS: BMI 29.7
[2018-11-04] MEDS: WARFARIN NA 3 MG TABLET PO SCH (17:07)
[2018-11-04 19:14] VITALS: BP 118/66; PULSE 65; TEMP 98.6
== END 2018-11-04 19:49 | DRG 70 ==
LOC: JER 18:31 → JERBED 10-28 02:19 → OBSVTOIN 10-28 04:08 → J4S 10-28 16:12
PROVIDERS: ADMIT Internal Medicine; ATTEND Family Medicine
DX: G93.41 Metabolic encephalopathy (principal); J18.9 Pneumonia, unspecified organism; I24.8 Other forms of acute ischemic heart disease; I50.42 Chronic combined systolic (congestive) and diastolic (congestive) heart failure; F03.90 Unspecified dementia, unspecified severity, without behavioral disturbance, psychotic disturbance, mood disturbance, and anxiety; E11.9 Type 2 diabetes mellitus without complications; J44.9 Chronic obstructive pulmonary disease, unspecified; D72.829 Elevated white blood cell count, unspecified; R41.0 Disorientation, unspecified; I48.0 Paroxysmal atrial fibrillation; E03.9 Hypothyroidism, unspecified; Z79.01 Long term (current) use of anticoagulants; K76.0 Fatty (change of) liver, not elsewhere classified; R40.0 Somnolence; E05.90 Thyrotoxicosis, unspecified without thyrotoxic crisis or storm; I44.0 Atrioventricular block, first degree; Z79.4 Long term (current) use of insulin; Z95.3 Presence of xenogenic heart valve; I27.20 Pulmonary hypertension, unspecified
CPT/HCPCS: 36415; 70450-TC; 71045-TC-FY; 71046-TC-FY; 80048; 80053; 80061; 80162; 81003; 82550; 82553; 82607; 82962; 83036; 83605; 83721; 83735; 83880; 84100; 84439; 84443; 84484; 85025; 85027; 85610; 85730; 87040; 87086; 93005; 93010; 93306-TC; 94640; 97116-GP; 97161-GP; 99285-25; G0378; J8999

== ENCOUNTER 2019-10-11 11:32 | Inpatient (IN) | payer OTHER ==
[2019-10-11] MEDS ORDERED: ALBUTEROL SO4 2.5/IPRATROPIUM 0.5 INH SOL 3 ML VIAL.NEB. NEB ONE ×2 (12:04→13:13)
[2019-10-11 12:11] VITALS: BMI 51.2
--- NOTE | 2019-10-11 12:29 | PDOC ---
History of Present Illness - General Chief Complaint: Irregular Heart Beat Stated Complaint: Asthma Time Seen by Provider: 10/11/19 11:44 History Source: Patient Exam Limitations: Dementia - History of Present Illness Initial Comments: 10/11/19 13:15 Patient is a 79F with history of asthma, CHF, afib (on coumadin), DM, mitral valve replacement here today complaining of shortness of breath that onset this morning. Patient was picked up at an outpatient clinic by EMS after getting 1 treatment without improvement. EMS gave additional duoneb. Patient is able to say that symptoms started this morning and deny chest pain, but patient is clearly confused stating it is 2098. Denies fevers, chills, abdominal pain. Past History - Past Medical History Allergies/Adverse Reactions: Allergies Allergy/AdvReac Type Severity Reaction Status Date / Time ampicillin [Ampicillin] Allergy Severe Swelling Verified 12/17/17 14:22 codeine [Codeine] Allergy Swelling Verified 12/17/17 14:22 Home Medications: Ambulatory Orders Diltiazem Cd [Cardizem Cd -] 360 mg PO DAILY tab 08/13/17 Furosemide [Lasix -] 40 mg PO DAILY #30 tablet 10/03/17 Methimazole [Tapazole -] 5 mg PO AM tablet 11/05/17 Donepezil HCl [Aricept] 5 mg PO HS 12/17/17 Losartan Potassium 25 mg PO HS 12/17/17 Acetaminophen [Tylenol .Regular Strength -] 650 mg PO Q4H PRN tablet 12/22/17 Linaclotide [Linzess] 72 mcg PO DAILY #30 capsule 12/22/17 Polyethylene Glycol 3350 [Miralax 119 gm Btl -] 17 gm PO DAILY #1 bottle Albuterol 0.083% Nebulizer Pooja [Ventolin 0.083% Nebulizer Soln -] 1 amp NEB Q4H PRN amp 11/03/18 Atorvastatin Ca [Lipitor] 20 mg PO HS tablet 11/03/18 Donepezil HCl [Aricept -] 5 mg PO HS tablet 11/03/18 Metoprolol Tartrate [Lopressor -] 25 mg PO DAILY tablet 11/03/18 Sitagliptin Phosphate [Januvia] 50 mg PO DAILY #30 tablet 11/03/18 Warfarin Na [Coumadin -] 3 mg PO DAILY@1800 tablet 11/03/18 Anemia: No Asthma: Yes Cardiac Disorders: Yes (AF) COPD: Yes CHF: Yes DVT: No Dementia: Yes Diabetes: Yes Dialysis: No HTN: Yes Hypercholesterolemia: Yes Kidney Stones: No Liver Disease: Yes (FATTY LIVER) Psychiatric Problems: No Thyroid Disease: Yes (hyper) Lung CA: No - Surgical History Abdominal Surgery: Yes (TUBAL LIGATION) Cardiac Surgery: Yes (mitral valve replacement) Cholecystectomy: Yes - Immunization History Immunization Up to Date: Yes - Psycho Social/Smoking Cessation Hx Smoking Status: No Smoking History: Never smoked Have you smoked in the past 12 months: No Number of Cigarettes Smoked Daily: 0 Cigars Per Day: 0 Hx Alcohol Use: No Drug/Substance Use Hx: No Substance Use Type: None Hx Substance Use Treatment: No Review of Systems - Review of Systems Able to Perform ROS?: No (2/2 dementia) *Physical Exam - Vital Signs Last Vital Signs Temp Pulse Resp BP Pulse Ox 99.2 F 47 L 30 H 110/74 100 10/11/19 12:00 10/11/19 12:00 10/11/19 12:00 10/11/19 12:00 10/11/19 12:00 - Physical Exam 10/11/19 13:23 GENERAL: Awake, alert, oriented to self/place, in no acute distress HEAD: No signs of trauma, normocephalic, atraumatic EYES: PERRLA, EOMI, sclera anicteric, conjunctiva clear ENT: Auricles normal inspection, hearing grossly normal, nares patent, oropharynx clear without exudates. Moist mucosa NECK: Normal ROM, supple, no lymphadenopathy, JVD, or masses LUNGS: No distress, speaks full sentences, diffuse wheezing bilaterally HEART: Regular rate and rhythm, normal S1 and S2, no murmurs, rubs or gallops, peripheral pulses normal and equal bilaterally. ABDOMEN: Soft, nontender, normoactive bowel sounds. No guarding, no rebound. No masses EXTREMITIES: Normal inspection, Normal range of motion, no edema. No clubbing or cyanosis. NEUROLOGICAL: Cranial nerves II through XII grossly intact. Normal speech, no focal sensorimotor deficits SKIN: Warm, Dry, normal turgor, no rashes or lesions noted. ED Treatment Course - LABORATORY CBC & Chemistry Diagram: 10/11/19 12:30 10/11/19 12:30 - RADIOLOGY Radiology Studies Ordered: Category Date Time Status CHEST X-RAY PORTABLE* [RAD] Stat Radiology 10/11/19 11:51 Ordered Medical Decision Making - Medical Decision Making 10/11/19 13:23 Patient is 79F with history of asthma, chf, afib and MVR here today with shortness of breath. Vitals notable for tachypnea initially, improved after duo nebs. Bedside ultrasound shows no b-lines, ?moderately decreased LV function, no pericardial effusion. Suspect COPD vs PNA as primary process. EKG shows a junctional rhythm with rate of 47. No st elevations/depressions. Left axis deviation. Low voltage. 10/11/19 14:23 CBC normal. CMP reassuring. Trop .03 BNP negative. Bradycardia has continued, will admit for COPD exacerbation and further evaluation of bradycardia with junctional rhythm. 10/11/19 15:00 Case d/w Dr Perez, accepted to tele. Discharge - Discharge Information Problems reviewed: Yes Clinical Impression/Diagnosis: Asthma exacerbation Condition: Stable - Admission Yes - Follow up/Referral - Patient Discharge Instructions - Post Discharge Activity
[2019-10-11] MEDS ORDERED: methylPREDNISolone NA SUCC 125 MG/2 ML VIAL IVPB ONE (12:30)
[2019-10-11] MEDS ORDERED: methylPREDNISolone NA SUCC 125 MG/2 ML VIAL ONE (12:47)
[2019-10-11 12:48] LABS: BASO % 1.3 % (0-2.0); EOS % 4.8 % (0-4.5); HEMATOCRIT 37.9 % (32.4-45.2); LYMPH % 23.4 % (8-40); MCH 29.2 pg (25.7-33.7); MCHC 31.8 g/dl (32.0-36.0); MEAN PLT VOLUME 8.8 fl (7.5-11.1); MONO % 11.4 % (3.8-10.2); NEUT % 59.1 % (42.8-82.8); PLATELET COUNT 183 K/MM3 (134-434); RBC 4.12 M/mm3 (3.60-5.2); RDW 17.2 % (11.6-15.6); WHITE BLOOD COUNT 7.2 K/mm3 (4.0-10.0)
[2019-10-11 13:19] LABS: ALBUMIN 3.1 g/dl (3.4-5.0); BLOOD UREA NITROGEN 8.8 mg/dL (7-18); CALCIUM 8.7 mg/dL (8.5-10.1); CREATININE 0.7 mg/dL (0.55-1.3); N-TERMINAL BNP 406.7 pg/ml (5-450); POTASSIUM 3.7 mmol/L (3.5-5.1); TOT PROT 6.3 g/dl (6.4-8.2)
--- NOTE | 2019-10-11 13:31 | PDOC ---
Attending Attestation - Resident Resident Name: Luis Shaikh - ED Attending Attestation I have performed the following: I have examined & evaluated the patient, The case was reviewed & discussed with the resident, I agree w/resident's findings & plan, Exceptions are as noted - HPI HPI: 10/11/19 13:30 79 years old with past medical history significant for asthma CHF A. fib on Coumadin diabetes mitral valve replacement presents with shortness of breath since this morning EMS gave 1 nebulizer treatment with no significant improvement Symptoms are persistent constant no exacerbating alleviating factors. - Physicial Exam PE: 10/11/19 15:17 Vitals: Triage Vital signs reviewed General Appearance: No acute distress, well nourished well developed, Head: Atraumatic, Cardiac: Regular rate and rhythym, no murmurs, no rubs, no gallops, Lungs: Wheezing bilaterally Abdomen: Soft, non distended, normal bowel sounds, non tender to palpation Extremities: Full range of motion to all extremities, no cyanosis, clubbing, or edema Psych: Normal mood, normal affect - Medical Decision Making 10/11/19 15:18 EKG performed at 1151 demonstrates possible junctional rhythm 47 bpm low voltage no ST elevations or T wave inversions Interpreted by me Bedside [id number] echo demonstrates no pericardial effusion Patient feels better after DuoNeb's We will admit to medicine for telemetry monitoring cardiac consultation regarding bradycardia asymptomatic at this time hemodynamically stable We will treat for presumed reactive airway disease secondary to likely viral URI no evidence of pneumonia on chest x-ray no fever no white count no indication for antibiotics at this time
[2019-10-11 13:37] LABS: INR 2.06 (0.83-1.09); PROTHROMBIN TIME (PATIENT) 24.5 SEC (9.7-13.0)
[2019-10-11 13:40] LABS: ACTIVATED PTT 42.7 SECONDS (25.2-36.5)
[2019-10-11] MEDS ORDERED: ACETAMINOPHEN 325 MG TABLET (FP) PO PRN (18:03)
[2019-10-11] MEDS ORDERED: methylPREDNISolone NA SUCC 40 MG/1 ML VIAL ONE ×2 (18:33→22:01)
[2019-10-11] MEDS: methylPREDNISolone NA SUCC 40 MG/1 ML VIAL IVPUSH SCH ×2 (18:39→22:01)
[2019-10-11] MEDS: ALBUTEROL SO4 2.5/IPRATROPIUM 0.5 INH SOL 3 ML VIAL.NEB. NEB SCH (19:53)
[2019-10-11] MEDS ORDERED: POLYETHYLENE GLYCOL 3350 119 GM BTL PO ONE (20:13)
[2019-10-11] MEDS ORDERED: DOCUSATE SODIUM 100 MG CAPSULE (FP) PO ONE (20:13)
[2019-10-11] MEDS ORDERED: SENNOSIDES 8.6MG TABLET (FP) PO SCH (22:00)
[2019-10-11] MEDS ORDERED: ATORVASTATIN CA 20 MG TABLET (FP) ONE (22:00)
[2019-10-11] MEDS: ATORVASTATIN CA 20 MG TABLET (FP) PO SCH (22:01)
[2019-10-11] MEDS: LOSARTAN POTASSIUM 25 MG TABLET PO SCH (22:01)
[2019-10-11] MEDS ORDERED: LOSARTAN POTASSIUM 50 MG TABLET (FP) ONE ×2 (22:01→22:05)
--- NOTE | 2019-10-11 23:34 | HOSP ---
Subjective - Review of Symptoms Events since last encounter: 79F with history of asthma, CHF, afib (on coumadin), DM, mitral valve replacement present with shortness of breath that started in Am . Patient was picked up at an outpatient clinic by EMS after getting 1 treatment without improvement. EMS gave additional duoneb. Patient is able to say that symptoms started this morning and deny chest pain, but patient is clearly confused stating it is 2098. Denies fevers, chills, abdominal pain. @ 23:10 Rn microbloged noted patient with left side breast hard around nipple area and bright blood on clothing. Upon assessment left breast hard/firm when compared to right side, when left breast touched and squeezed noted bright blood pouring from nipple. patient denies pain/ distress. Patient ? states had it since this morning. will hold coumdin dose tonight, pt/inr: 2.06/42.7 , will follow up repeat in Am, ordered breast US STAT. Monitor area for worsening symptoms. Physical Examination Vital Signs: Vital Signs Temperature 97.8 F 10/11/19 19:58 Pulse Rate 62 10/11/19 22:08 Respiratory Rate 20 10/11/19 22:08 Blood Pressure 140/84 10/11/19 22:08 O2 Sat by Pulse Oximetry (%) 100 10/11/19 22:08 Labs: CBC, BMP 10/11/19 12:30 10/11/19 12:30
--- NOTE | 2019-10-12 00:15 | CONSULT ---
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 No: Diabetes Mellitus Additional Medical History: LEFT POPLITEAL DVT - Past Surgical History Past Surgical History: Yes: Tubal Ligation (laparoscopic), Valve Replacement ( mechanical mitral 2 wks ago) - Alcohol/Substance Use Hx Alcohol Use: No History of Substance Use: reports: None - Smoking History Smoking history: Never smoked Have you smoked in the past 12 months: No Aproximately how many cigarettes per day: 0 - Social History Usual Living Arrangement: [facility] ADL: Independent History of Recent Travel: No Home Medications - Allergies Allergies/Adverse Reactions: Allergies Allergy/AdvReac Type Severity Reaction Status Date / Time ampicillin [Ampicillin] Allergy Severe Swelling Verified 12/17/17 14:22 codeine [Codeine] Allergy Swelling Verified 12/17/17 14:22 - Home Medications Home Medications: Ambulatory Orders Diltiazem Cd [Cardizem Cd -] 360 mg PO DAILY tab 08/13/17 Methimazole [Tapazole -] 5 mg PO AM tablet 11/05/17 Losartan Potassium 25 mg PO HS 12/17/17 Albuterol 0.083% Nebulizer Pooja [Ventolin 0.083% Nebulizer Soln -] 1 amp NEB Q4H PRN amp 11/03/18 Metoprolol Tartrate [Lopressor -] 25 mg PO DAILY tablet 11/03/18 Warfarin Na [Coumadin -] 3 mg PO DAILY@1800 tablet 11/03/18 Atorvastatin Ca [Lipitor] 10 mg PO HS 10/11/19 Escitalopram Oxalate [Lexapro -] 5 mg PO DAILY 10/11/19 Escitalopram Oxalate [Lexapro -] 10 mg PO DAILY 10/11/19 Mirtazapine 7.5 mg PO DAILY 10/11/19 Prednisone 10 mg PO PRN 10/11/19 Sitagliptin Phosphate [Januvia] 25 mg PO DAILY 10/11/19 Warfarin Sodium 4 mg PO PRN 10/11/19 Warfarin Sodium 5 mg PO PRN 10/11/19 Warfarin Sodium 6 mg PO PRN 10/11/19 predniSONE [Deltasone -] 20 mg PO DAILY 10/11/19 Review of Systems - Review of Systems Constitutional: reports: Lethargy Eyes: reports: No Symptoms HENT: reports: No Symptoms Cardiovascular: reports: Shortness of Breath Respiratory: reports: Exercise Intolerance, SOB on Exertion Gastrointestinal: reports: Constipation Genitourinary: reports: No Symptoms Breasts: reports: No Symptoms Reported Musculoskeletal: reports: Muscle Pain, Muscle Cramps, Muscle Weakness Integumentary: reports: Pruritis Neurological: reports: Numbness, Unsteady Gait, Weakness Endocrine: reports: Unexplained Weight Gain Physical Exam Vital Signs: Vital Signs Temperature 97.8 F 10/11/19 19:58 Pulse Rate 62 10/11/19 22:08 Respiratory Rate 20 10/11/19 22:08 Blood Pressure 140/84 10/11/19 22:08 O2 Sat by Pulse Oximetry (%) 100 10/11/19 22:08 Constitutional: Yes: Calm Eyes: Yes: EOM Intact HENT: Yes: Normocephalic Neck: Yes: Trachea Midline Cardiovascular: Yes: Tachycardia, Pulse Irregular Respiratory: Yes: On Nasal O2, SOB, SOB on Exertion, Tachypnea, Wheezes Gastrointestinal: Yes: Hypoactive Bowel Sounds Musculoskeletal: Yes: Back Pain, Joint Swelling, Muscle Pain, Muscle Weakness Edema: LLE: Trace, RLE: 3+ Neurological: Yes: Alert, Confusion Labs: CBC, BMP 10/11/19 12:30 10/11/19 12:30 Problem List - Problems (1) Controlled diabetes mellitus with diabetic peripheral angiopathy without gangrene, without long-term current use of insulin Problems reviewed: Yes Code(s): E11.51 - TYPE 2 DIABETES W DIABETIC PERIPHERAL ANGIOPATH W/O GANGRENE Qualifiers: Diabetes mellitus type: type 2 Qualified Code(s): E11.51 - Type 2 diabetes mellitus with diabetic peripheral angiopathy without gangrene (2) Asthma attack Problems reviewed: Yes Code(s): J45.901 - UNSPECIFIED ASTHMA WITH (ACUTE) EXACERBATION Qualifiers: Asthma persistence: intermittent (3) Abdominal pain Problems reviewed: Yes Code(s): R10.9 - UNSPECIFIED ABDOMINAL PAIN Qualifiers: Abdominal location: generalized Qualified Code(s): R10.84 - Generalized abdominal pain (4) Acute asthma exacerbation Problems reviewed: Yes Code(s): J45.901 - UNSPECIFIED ASTHMA WITH (ACUTE) EXACERBATION Qualifiers: Asthma severity: moderate (5) Acute exacerbation of CHF (congestive heart failure) Problems reviewed: Yes Code(s): I50.9 - HEART FAILURE, UNSPECIFIED (6) Acute on chronic diastolic (congestive) heart failure Problems reviewed: Yes Code(s): I50.33 - ACUTE ON CHRONIC DIASTOLIC (CONGESTIVE) HEART FAILURE (7) Allergy to ampicillin Problems reviewed: Yes Code(s): Z88.0 - ALLERGY STATUS TO PENICILLIN (8) Other specified hypothyroidism Problems reviewed: Yes Code(s): E03.8 - OTHER SPECIFIED HYPOTHYROIDISM Assessment/Plan Current Active Problems Astmatic attack copd chf chronic dm t2 neuropathy hypothyroidism sp hyperthyroid treated Abnormal Lab Results 10/11/19 10/11/19 10/11/19 12:30 12:30 12:30 MCHC 31.8 L RDW 17.2 H Monocytes % 11.4 H Eosinophils % 4.8 H D PT with INR 24.50 H INR 2.06 H PTT (Actin FS) 42.7 H Chloride 111 H Anion Gap 6 L ALT 8 L Alkaline Phosphatase 135 H Total Protein 6.3 L Albumin 3.1 L TSH 15.20 H Laboratory Results - last 24 hr 10/11/19 10/11/19 10/11/19 12:30 12:30 12:30 WBC 7.2 RBC 4.12 Hgb 12.0 Hct 37.9 MCV 92.0 MCH 29.2 D MCHC 31.8 L RDW 17.2 H Plt Count 183 D MPV 8.8 Absolute Neuts (auto) 4.2 Neutrophils % 59.1 D Lymphocytes % 23.4 D Monocytes % 11.4 H Eosinophils % 4.8 H D Basophils % 1.3 Nucleated RBC % 0 PT with INR 24.50 H INR 2.06 H PTT (Actin FS) 42.7 H Sodium Potassium Chloride Carbon Dioxide Anion Gap BUN Creatinine Est GFR (CKD-EPI)AfAm Est GFR (CKD-EPI)NonAf Random Glucose Calcium Magnesium Total Bilirubin AST ALT Alkaline Phosphatase Creatine Kinase 180 Creatine Kinase Index 0.5 CK-MB (CK-2) 1.0 Troponin I 0.03 B-Natriuretic Peptide Total Protein Albumin TSH Influenza A (Rapid) Influenza B (Rapid) 10/11/19 10/11/19 10/11/19 12: 12: 14:15 WBC RBC Hgb Hct MCV MCH MCHC RDW Plt Count MPV Absolute Neuts (auto) Neutrophils % Lymphocytes % Monocytes % Eosinophils % Basophils % Nucleated RBC % PT with INR INR PTT (Actin FS) Sodium 143 Potassium 3.7 Chloride 111 H Carbon Dioxide 26 Anion Gap 6 L BUN 8.8 Creatinine 0.7 Est GFR (CKD-EPI)AfAm 96.18 Est GFR (CKD-EPI)NonAf 82.99 Random Glucose 87 Calcium 8.7 Magnesium 2.1 Total Bilirubin 1.0 AST 21 ALT 8 L Alkaline Phosphatase 135 H Creatine Kinase Creatine Kinase Index CK-MB (CK-2) Troponin I B-Natriuretic Peptide 406.7 Total Protein 6.3 L Albumin 3.1 L TSH 15.20 H Influenza A (Rapid) Negative Influenza B (Rapid) Negative plan: dc tapazole use synthroid 50mcg daily bgm acmeals hsnovolog scale januvia 50mg day ck hba1c
[2019-10-12] MEDS: methylPREDNISolone NA SUCC 40 MG/1 ML VIAL IVPUSH SCH ×4 (02:54→22:09)
[2019-10-12] MEDS: sitaGLIPtin PHOSPHATE 50 MG TABLET PO SCH (06:33)
[2019-10-12] MEDS: INSULIN SLIDING SCALE (NOVOLOG) 1 VIAL SQ SCH ×3 (06:33→16:16)
[2019-10-12] MEDS: LEVOTHYROXINE NA 50 MCG TABLET (FP) PO SCH (06:33)
[2019-10-12 06:35] LABS: BASO % 0.3 % (0-2.0); EOS % 0.5 % (0-4.5); HEMATOCRIT 35.8 % (32.4-45.2); HEMOGLOBIN 11.6 GM/dL (10.7-15.3); LYMPH % 14.3 % (8-40); MCH 29.3 pg (25.7-33.7); MCHC 32.4 g/dl (32.0-36.0); MEAN CELL VOLUME 90.5 fl (80-96); MEAN PLT VOLUME 8.9 fl (7.5-11.1); MONO % 3.2 % (3.8-10.2); NEUT % 81.7 % (42.8-82.8); PLATELET COUNT 173 K/MM3 (134-434); RBC 3.96 M/mm3 (3.60-5.2); RDW 17.5 % (11.6-15.6); WHITE BLOOD COUNT 4.8 K/mm3 (4.0-10.0)
[2019-10-12 06:39] LABS: INR 1.86 (0.83-1.09); PROTHROMBIN TIME (PATIENT) 22.1 SEC (9.7-13.0)
[2019-10-12 06:58] LABS: ALBUMIN 3.1 g/dl (3.4-5.0); BILIRUBIN,TOTAL 0.8 mg/dL (0.2-1); BLOOD UREA NITROGEN 12.8 mg/dL (7-18); CALCIUM 8.7 mg/dL (8.5-10.1); CREATININE 0.8 mg/dL (0.55-1.3); MAGNESIUM 2.2 mg/dL (1.8-2.4); PHOSPHOROUS 2.9 mg/dL (2.5-4.9); POTASSIUM 3.7 mmol/L (3.5-5.1); TOT PROT 6.1 g/dl (6.4-8.2)
[2019-10-12] MEDS ORDERED: METHIMAZOLE 5 MG TABLET (FP) PO SCH (07:00)
[2019-10-12] MEDS ORDERED: INSULIN SLIDING SCALE (NOVOLOG) 1 VIAL SQ ONE (07:01)
--- NOTE | 2019-10-12 07:48 | PN ---
Progress Note, Physician - Current Medication List Current Medications: Active Medications Acetaminophen (Tylenol -) 650 mg PO Q4H PRN PRN Reason: FEVER Albuterol/Ipratropium (Duoneb -) 1 amp NEB RQID [facility] Last Admin: 10/11/19 19:53 Dose: 1 amp Atorvastatin Calcium (Lipitor -) 20 mg PO HS [facility] Last Admin: 10/11/19 22:01 Dose: 20 mg Furosemide (Lasix -) 40 mg PO DAILY [facility] Insulin Aspart (Novolog Vial Sliding Scale -) 1 vial SQ TIDAC [facility]; Protocol Last Admin: 10/12/19 06:33 Dose: Not Given Levothyroxine Sodium (Synthroid -) 50 mcg PO DAILY@0700 [facility] Last Admin: 10/12/19 06:33 Dose: 50 mcg Losartan Potassium (Cozaar -) 25 mg PO HS [facility] Last Admin: 10/11/19 22:01 Dose: 25 mg Methylprednisolone Sodium Succinate (Solu-Medrol -) 40 mg IVPUSH Q6H-IV [facility] Last Admin: 10/12/19 02:54 Dose: 40 mg Non-Formulary Medication (Linaclotide [Linzess]) 72 mcg PO DAILY [facility] Polyethylene Glycol (Miralax (For Daily Use) -) 17 gm PO DAILY [facility] Sitagliptin Phosphate (Januvia -) 50 mg PO DAILY@0700 [facility] Last Admin: 10/12/19 06:33 Dose: 50 mg - Objective Vital Signs: Vital Signs Temperature 98.1 F 10/12/19 02:00 Pulse Rate 65 10/12/19 02:00 Respiratory Rate 18 10/12/19 02:00 Blood Pressure 142/88 10/12/19 02:00 O2 Sat by Pulse Oximetry (%) 96 10/11/19 23:00 Labs: CBC, BMP 10/12/19 05:30 10/12/19 05:30 INR, PTT INR 1.86 (0.83-1.09) H 10/12/19 05:30
[2019-10-12] MEDS: ALBUTEROL SO4 2.5/IPRATROPIUM 0.5 INH SOL 3 ML VIAL.NEB. NEB SCH ×4 (07:55→20:00)
[2019-10-12] MEDS ORDERED: PT OWN MED DRAWER 7, Y5N ONE ×2 (08:46→15:11)
--- NOTE | 2019-10-12 09:16 | HP ---
Admitting History and Physical - Primary Care Physician PCP: Escobar Perez - Admission Chief Complaint: SOB/RESP DISTRESS History of Present Illness: Patient is a 79F with history of asthma, CHF, afib (on coumadin), DM, mitral valve replacement here today complaining of shortness of breath that onset this morning. Patient was picked up at an outpatient clinic by EMS after getting 1 treatment without improvement. EMS gave additional duoneb. Patient is able to say that symptoms started this morning and deny chest pain, but patient is clearly confused stating it is 2098. Denies fevers, chills, abdominal pain. 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 No: Diabetes Mellitus - Past Surgical History Past Surgical History: Yes: Tubal Ligation (laparoscopic), Valve Replacement ( mechanical mitral 2 wks ago) - Smoking History Smoking history: Never smoked Have you smoked in the past 12 months: No Aproximately how many cigarettes per day: 0 - Alcohol/Substance Use Hx Alcohol Use: No History of Substance Use: reports: None - Social History ADL: Independent History of Recent Travel: No Home Medications - Allergies Allergies/Adverse Reactions: Allergies Allergy/AdvReac Type Severity Reaction Status Date / Time ampicillin [Ampicillin] Allergy Severe Swelling Verified 12/17/17 14:22 codeine [Codeine] Allergy Swelling Verified 12/17/17 14:22 - Home Medications Home Medications: Ambulatory Orders Diltiazem Cd [Cardizem Cd -] 360 mg PO DAILY tab 08/13/17 Methimazole [Tapazole -] 5 mg PO AM tablet 11/05/17 Losartan Potassium 25 mg PO HS 12/17/17 Albuterol 0.083% Nebulizer Pooja [Ventolin 0.083% Nebulizer Soln -] 1 amp NEB Q4H PRN amp 11/03/18 Metoprolol Tartrate [Lopressor -] 25 mg PO DAILY tablet 11/03/18 Warfarin Na [Coumadin -] 3 mg PO DAILY@1800 tablet 11/03/18 Atorvastatin Ca [Lipitor] 10 mg PO HS 10/11/19 Escitalopram Oxalate [Lexapro -] 5 mg PO DAILY 10/11/19 Escitalopram Oxalate [Lexapro -] 10 mg PO DAILY 10/11/19 Mirtazapine 7.5 mg PO DAILY 10/11/19 Prednisone 10 mg PO PRN 10/11/19 Sitagliptin Phosphate [Januvia] 25 mg PO DAILY 10/11/19 Warfarin Sodium 4 mg PO PRN 10/11/19 Warfarin Sodium 5 mg PO PRN 10/11/19 Warfarin Sodium 6 mg PO PRN 10/11/19 predniSONE [Deltasone -] 20 mg PO DAILY 10/11/19 Review of Systems - Review of Systems Constitutional: reports: Weakness Respiratory: reports: Cough, SOB Genitourinary: reports: Incontinence Musculoskeletal: reports: Muscle Weakness Neurological: reports: Pre-Existing Deficit Physical Examination Vital Signs: Vital Signs Temperature 98.1 F 10/12/19 02:00 Pulse Rate 65 10/12/19 02:00 Respiratory Rate 18 10/12/19 02:00 Blood Pressure 142/88 10/12/19 02:00 O2 Sat by Pulse Oximetry (%) 96 10/11/19 23:00 Constitutional: Yes: Mild Distress Cardiovascular: Yes: Regular Rate and Rhythm Respiratory: Yes: Diminished, On Nasal O2 Gastrointestinal: Yes: Abdomen, Obese Breast(s): Yes: Other (BLEED FROM BREAST OVERNIGHT NOW DRY) Musculoskeletal: Yes: Muscle Weakness Edema: Yes Edema: LLE: Trace, RLE: Trace Neurological: Yes: Pre-Existing Deficit Labs: CBC, BMP 10/12/19 05:30 10/12/19 05:30 Imaging - Results Chest X-ray: Report Reviewed Problem List - Problems (1) Asthma attack Code(s): J45.901 - UNSPECIFIED ASTHMA WITH (ACUTE) EXACERBATION Qualifiers: Asthma persistence: intermittent (2) Controlled diabetes mellitus with diabetic peripheral angiopathy without gangrene, without long-term current use of insulin Code(s): E11.51 - TYPE 2 DIABETES W DIABETIC PERIPHERAL ANGIOPATH W/O GANGRENE Qualifiers: Diabetes mellitus type: type 2 Qualified Code(s): E11.51 - Type 2 diabetes mellitus with diabetic peripheral angiopathy without gangrene (3) Other specified hypothyroidism Code(s): E03.8 - OTHER SPECIFIED HYPOTHYROIDISM (4) Abdominal pain Code(s): R10.9 - UNSPECIFIED ABDOMINAL PAIN (5) Anxiety and depression Code(s): F41.9 - ANXIETY DISORDER, UNSPECIFIED; F32.9 - MAJOR DEPRESSIVE DISORDER, SINGLE EPISODE, UNSPECIFIED (6) Atrial fibrillation Code(s): I48.91 - UNSPECIFIED ATRIAL FIBRILLATION Qualifiers: Atrial fibrillation type: permanent (7) Breast mass, left Code(s): N63 - UNSPECIFIED LUMP IN BREAST * DO NOT USE * Assessment/Plan IV STEROIDS FOR ASTHMA EXACERBATION / SUPPORT PULM EVAL BREAST MASS, CHECK SONO DVT PROPHYLAXIS ON COUMADIN IV LEVAQUIN
[2019-10-12] MEDS: FUROSEMIDE 40 MG TABLET (FP) PO SCH (09:46)
[2019-10-12] MEDS: POLYETHYLENE GLYCOL 3350 119 GM BTL PO SCH (09:47)
[2019-10-12] MEDS ORDERED: PATIENT'S OWN MEDICATION (NON-FORMULARY) (Linaclotide [Linzess] 72 MCG) PO SCH (10:00)
--- NOTE | 2019-10-12 10:14 | CON.CARD ---
Consult Consult Specialty:: Cardiology Referred by:: Dr. Perez Reason for Consultation:: Arrhythmia - History of Present Illness Chief Complaint: sob History of Present Illness: 79 year old woman with a PMH of Dementia, AFIB on coumadin, chronic combined systoilc and diastolic CHF, history of Bio-MVR, h/o LIJ and axillary vein thrombus, DM Hyperthyroidism, Fatty Liver, and COPD admitted with sob. SOB responded to nebs in ER. Noted to be bradycardic as well and admitted for further monitoring. pt seen and examined today in nad. awake and alert. states she is feeling better. states sob has resolved. denies chest pain, palpitations. Notes LUE swelling. Found to have L breast mass with bloody discharge. 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 No: Diabetes Mellitus Additional Medical History: LEFT POPLITEAL DVT - Past Surgical History Past Surgical History: Yes: Tubal Ligation (laparoscopic), Valve Replacement ( mechanical mitral 2 wks ago) - Alcohol/Substance Use Hx Alcohol Use: No History of Substance Use: reports: None - Smoking History Smoking history: Never smoked Have you smoked in the past 12 months: No Aproximately how many cigarettes per day: 0 - Social History Usual Living Arrangement: Assisted ADL: Independent History of Recent Travel: No Home Medications - Allergies Allergies/Adverse Reactions: Allergies Allergy/AdvReac Type Severity Reaction Status Date / Time ampicillin [Ampicillin] Allergy Severe Swelling Verified 12/17/17 14:22 codeine [Codeine] Allergy Swelling Verified 12/17/17 14:22 - Home Medications Home Medications: Ambulatory Orders Diltiazem Cd [Cardizem Cd -] 360 mg PO DAILY tab 08/13/17 Methimazole [Tapazole -] 5 mg PO AM tablet 11/05/17 Losartan Potassium 25 mg PO HS 12/17/17 Albuterol 0.083% Nebulizer Pooja [Ventolin 0.083% Nebulizer Soln -] 1 amp NEB Q4H PRN amp 11/03/18 Metoprolol Tartrate [Lopressor -] 25 mg PO DAILY tablet 11/03/18 Warfarin Na [Coumadin -] 3 mg PO DAILY@1800 tablet 11/03/18 Atorvastatin Ca [Lipitor] 10 mg PO HS 10/11/19 Escitalopram Oxalate [Lexapro -] 5 mg PO DAILY 10/11/19 Escitalopram Oxalate [Lexapro -] 10 mg PO DAILY 10/11/19 Mirtazapine 7.5 mg PO DAILY 10/11/19 Prednisone 10 mg PO PRN 10/11/19 Sitagliptin Phosphate [Januvia] 25 mg PO DAILY 10/11/19 Warfarin Sodium 4 mg PO PRN 10/11/19 Warfarin Sodium 5 mg PO PRN 10/11/19 Warfarin Sodium 6 mg PO PRN 10/11/19 predniSONE [Deltasone -] 20 mg PO DAILY 10/11/19 Family Medical History Family History: Denies Review of Systems - Review of Systems Constitutional: denies: No Symptoms, Chills, Diaphoresis, Fever, Lethargy, Loss of Appetite, Malaise, Night Sweats, Unintentional Wgt. Loss, Weakness, Other Eyes: denies: No Symptoms, Blind Spots, Blurred Vision, Double Vision, Eye Pain , Floaters, Photophobia, Recent Change in Vision, Other HENT: denies: No Symptoms, Difficult Swallowing, Ear Discharge, Ear Pain, Epistaxis, Gingival Bleeding, Hearing Loss, Mouth Swelling, Nasal Congestion, Ocular Prosthesis, Throat Pain, Toothache, Ringing in Ears, Other Neck: denies: No Symptoms, Decreased ROM, Lumps, Pain on Movement, Stiffness, Swollen Glands, Tenderness, Other Cardiovascular: reports: Edema, Shortness of Breath. denies: No Symptoms, Chest Pain, Palpitations, Other Respiratory: reports: SOB, Wheezing. denies: No Symptoms, Cough, Exercise Intolerance, Hemoptysis, Orthopnea, PND, Snoring, SOB on Exertion, Other Gastrointestinal: denies: No Symptoms, Abdominal Pain, Bloating, Constipation, Diarrhea, Dysphagia, Indigestion, Melena, Nausea, Rectal Bleeding, Vomiting, Vomiting Blood, Other Genitourinary: denies: No Symptoms, Burning, Discharge, Dysuria, Flank Pain, Frequency, Hematuria, Incontinence, Lesions, Menses, Pain, Testicular Mass, Testicular Pain, Testicular Swelling, Urgency, Vaginal Bleeding, Other Breasts: reports: See HPI, Discharge from Nipple, Lumps. denies: No Symptoms Reported, Breast Implants, Pain, Skin Changes, Other Musculoskeletal: denies: No Symptoms, Back Pain, Crepitus, Decreased ROM, Extremity Pain, Joint Pain, Joint Swelling, Muscle Pain, Muscle Cramps, Muscle Weakness, Other Integumentary: denies: No Symptoms, Blister, Bruising, Change in Color, Eczema, Erythema, Incision, Lesions, Lump, Pallor, Pruritis, Rash, Wound, Other Neurological: denies: No Symptoms, Change in LOC, Change in Speech, Confusion, Dizziness, Headache, Incoordination, Numbness, Parasthesia, Pre-Existing Deficit , Seizure, Syncope, Tremors, Unsteady Gait, Weakness, Other Endocrine: denies: No Symptoms, Excessive Sweating, Flushing, Increased Hunger, Increased Thirst, Intolerance to Cold, Intolerance to Heat, Unexplained Weight Gain, Unexplained Weight Loss, Other Hematology/Lymphatic: denies: No Symptoms, Easily Bruised, Excessive Bleeding, Swollen Glands, Other Psychiatric: denies: No Symptoms, Altered Sleep Pattern, Anxiety, Depression, Hallucinations, Panic, Paranoia, Suicidal, Other - Risk Factors Known Risk Factors: Yes: Diabetes Mellitus, Hypercholesterolemia, Hypertension, Physical Inactivity Vital Signs: Vital Signs Temperature 98.1 F 10/12/19 02:00 Pulse Rate 65 10/12/19 02:00 Respiratory Rate 18 10/12/19 02:00 Blood Pressure 142/88 10/12/19 02:00 O2 Sat by Pulse Oximetry (%) 96 10/11/19 23:00 Constitutional: Yes: No Distress, Calm Eyes: Yes: Conjunctiva Clear, EOM Intact HENT: Yes: Atraumatic, Normocephalic Neck: Yes: Supple, Trachea Midline Respiratory: Yes: Regular, Diminished, On Nasal O2. No: Rales, Rhonchi, SOB, Wheezes Gastrointestinal: Yes: Normal Bowel Sounds, Soft. No: Distention, Tenderness Cardiovascular: Yes: Regular Rate and Rhythm. No: Bradycardia, Tachycardia, Pulse Irregular, Gallop, Rub, Varicosities JVD: No Carotid Bruit: No PMI: Non-Displaced Heart Sounds: Yes: S1, S2. No: Split S2, S3, S4, Clicks, Gallop, Rub, Bruit Murmur: No: Systolic Murmur, Diastolic Murmur Edema: Yes Edema: LUE: 2+ Peripheral Pulses WNL: Yes Neurological: Yes: Alert Psychiatric: Yes: Alert - Other Data Labs, Other Data: CBC, BMP 10/12/19 05:30 10/12/19 05:30 INR, PTT INR 1.86 (0.83-1.09) H 10/12/19 05:30 Troponin, BNP 10/11/19 10/11/19 10/12/19 12:30 12:30 05:30 Troponin I 0.03 0.03 B-Natriuretic Peptide 406.7 534.0 H Troponin, BNP 10/11/19 10/11/19 10/12/19 12:30 12:30 05:30 Troponin I 0.03 0.03 B-Natriuretic Peptide 406.7 534.0 H Echo: Report Reviewed Prior Cardiac Procedures: Valve Surgery Imaging - Results Chest X-ray: Report Reviewed, Image Reviewed EKG: Report Reviewed, Image Reviewed Other: Report Reviewed, Image Reviewed (tele-pafib, HR adequate, intermittent 48 -50s) Assessment/Plan 79 year old woman with a PMH of Dementia, AFIB on coumadin, chronic combined systoilc and diastolic CHF, history of Bio-MVR, h/o LIJ and axillary vein thrombus, DM Hyperthyroidism, Fatty Liver, and COPD admitted with sob. SOB responded to nebs in ER. Noted to be bradycardic as well and admitted for further monitoring. pt seen and examined today in nad. awake and alert. states she is feeling better. states sob has resolved. denies chest pain, palpitations. Notes LUE swelling. Found to have L breast mass with bloody discharge. SOB-AE COPD -improved with nebs and steroids -does not appear sig volume overloaded -cont po Lasix Arrhythmia-h/o pafib -mild bradycardia in ER, HR currently adequate 60s bpm -clarify home AV michelle carmita regimen, both Metoprolol Tartrate 25mg daily and Diltiazem CD 360mg daily listed -on warfarin for goal inr 2-3, if planned for procedure (ie breast biopsy) warfarin can be held H/o Bio AVR -stable
--- NOTE | 2019-10-12 10:19 | EKG ---
Test Reason : Blood Pressure : / mmHG Vent. Rate : 047 BPM Atrial Rate : 051 BPM P-R Int : 000 ms QRS Dur : 078 ms QT Int : 442 ms P-R-T Axes : 000 -33 -77 degrees QTc Int : 391 ms Possible JUNCTIONAL RHYTHM LEFT AXIS DEVIATION LOW VOLTAGE QRS POSSIBLE ANTEROLATERAL INFARCT (CITED ON OR BEFORE 28-OCT-2018) ABNORMAL ECG WHEN COMPARED WITH ECG OF 28-OCT-2018 18:52, SIGNIFICANT CHANGES HAVE OCCURRED Confirmed by MD Leif, Eduardo ([id number]) on 10/12/2019 10:19:01 AM Referred By: Confirmed By:Eduardo Yadav MD
--- NOTE | 2019-10-12 12:41 | PN ---
Progress Note (short form) - Note Progress Note: PULMONARY CONSULTATION DICTATED 10/12/19 IMP DYSPNEA ASTHMA EXACERBATION AFIB H/O HYPERTHYROID CHF SYSTOLIC/DIASTOLIC ASHD S/P MVR H/O LEFT POPLITEAL DVT LEFT BREAST MASS DEMENTIA PLAN INHALED BRONCHODILATORS O2 STEROIDS AC PER INR W/U BREAST MASS PER PMD DR YE Problem List - Problems (1) Asthma attack Code(s): J45.901 - UNSPECIFIED ASTHMA WITH (ACUTE) EXACERBATION Qualifiers: Asthma persistence: intermittent (2) Controlled diabetes mellitus with diabetic peripheral angiopathy without gangrene, without long-term current use of insulin Code(s): E11.51 - TYPE 2 DIABETES W DIABETIC PERIPHERAL ANGIOPATH W/O GANGRENE Qualifiers: Diabetes mellitus type: type 2 Qualified Code(s): E11.51 - Type 2 diabetes mellitus with diabetic peripheral angiopathy without gangrene (3) Acute asthma exacerbation Code(s): J45.901 - UNSPECIFIED ASTHMA WITH (ACUTE) EXACERBATION Qualifiers: Asthma severity: moderate (4) Anemia Code(s): D64.9 - ANEMIA, UNSPECIFIED Qualifiers: Anemia type: other cause Other causes of anemia: acute posthemorrhagic Qualified Code(s): D62 - Acute posthemorrhagic anemia (5) Asthma exacerbation Code(s): J45.901 - UNSPECIFIED ASTHMA WITH (ACUTE) EXACERBATION (6) Atrial fibrillation Code(s): I48.91 - UNSPECIFIED ATRIAL FIBRILLATION Qualifiers: Atrial fibrillation type: permanent Qualified Code(s): I48.21 - Permanent atrial fibrillation (7) Breast mass, left Code(s): N63 - UNSPECIFIED LUMP IN BREAST * DO NOT USE * (8) Chronic systolic (congestive) heart failure Code(s): I50.22 - CHRONIC SYSTOLIC (CONGESTIVE) HEART FAILURE (9) DVT (deep venous thrombosis) Code(s): I82.409 - ACUTE EMBOLISM AND THOMBOS UNSP DEEP VN UNSP LOWER EXTREMITY Qualifiers: DVT location: non-extremity vein Chronicity: unspecified Qualified Code(s ): I82.90 - Acute embolism and thrombosis of unspecified vein (10) H/O heart valve replacement with bioprosthetic valve Code(s): Z95.3 - PRESENCE OF XENOGENIC HEART VALVE (11) History of mitral valve replacement with bioprosthetic valve Code(s): Z95.3 - PRESENCE OF XENOGENIC HEART VALVE (12) Hypertension Code(s): I10 - ESSENTIAL (PRIMARY) HYPERTENSION Qualifiers: Hypertension type: essential hypertension Qualified Code(s): I10 - Essential (primary) hypertension (13) Hyperthyroidism Code(s): E05.90 - THYROTOXICOSIS, UNSP WITHOUT THYROTOXIC CRISIS OR STORM (14) S/P MVR (mitral valve replacement) Code(s): Z95.2 - PRESENCE OF PROSTHETIC HEART VALVE (15) Shortness of breath Code(s): R06.02 - SHORTNESS OF BREATH
--- NOTE | 2019-10-12 13:46 | CONS ---
PULMONARY CONSULTATION DATE OF CONSULTATION: 10/12/2019 REFERRING PHYSICIAN: Escobar Perez MD HISTORY: Patient is a 79-year-old female known to me from previous hospitalizations with past medical history of dementia, atrial fibrillation on Coumadin, chronic combined systolic and diastolic heart failure, history of bioprosthetic MVR, left upper extremity axillary vein thrombosis, diabetes, hypothyroidism, fatty liver, asthma, nonsmoker. Admitted to [facility] with increasing shortness of breath. Patient apparently for the past couple of days has been having increasing shortness of breath. Presented to the emergency room with above. In the ER, she was treated with inhaled bronchodilators with good response and transferred up to medical floor for further management. Of note is she was noted to found to have a left breast mass with a bloody discharge. PAST MEDICAL HISTORY: Again includes dementia, atrial fibrillation on Coumadin, ASHD, hypertension, hyperlipidemia, mitral valve replacement, asthma, GERD, cholelithiasis, hypothyroidism. REVIEW OF SYSTEMS: No chest pain, no palpitations. Positive shortness of breath. Positive cough. No hemoptysis, no abdominal pain. Positive left upper extremity edema. CURRENT MEDICATIONS: Include Linzess, Solu-Medrol 40 every 6, Tylenol, Cozaar, DuoNeb, MiraLAX, Januvia, Lipitor, NovoLog, Lasix, and Synthroid. PHYSICAL EXAMINATION: General: Patient is an elderly female awake, alert, mildly confused but in no acute distress. Vital Signs: She is currently afebrile. Heart rate is 67, blood pressure 133/ 76, respiratory rate is 19, O2 saturation is 99% 2 L nasal cannula. HEENT: Normocephalic, atraumatic. Neck: Supple. Heart: Irregularly irregular with S1, S2. Chest: A few scattered bilateral wheezes. Abdomen: Soft. Bowel sounds are positive. Extremities: Swelling in the left upper extremity. LABORATORIES: BUN is 12, creatinine 0.8, BNP 534, WBCs 4.8, hemoglobin 11.6, hematocrit 35.8 with a platelet count of 173,000. Blood gas not performed. Chest x-ray: There are no acute infiltrates and/or effusions, cardiomegaly. IMPRESSION: 1. Dyspnea secondary to acute asthma exacerbation. 2. Atrial fibrillation on Coumadin. 3. History of hypothyroidism. 4. 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 5. History of left popliteal deep vein thrombosis. 6. Left breast mass. 7. Dementia. PLAN: Inhaled bronchodilators. Supplemental O2. Steroids. Anticoagulation as per INR. Workup for breast mass as per primary. Chronic CHF diastolic and systolic. VANDANA YE M.D. [id number] MTDD
[2019-10-12] MEDS: ATORVASTATIN CA 20 MG TABLET (FP) PO SCH (22:09)
[2019-10-12] MEDS: LOSARTAN POTASSIUM 25 MG TABLET PO SCH (22:09)
[2019-10-13] MEDS: methylPREDNISolone NA SUCC 40 MG/1 ML VIAL IVPUSH SCH ×4 (03:10→21:42)
[2019-10-13] MEDS: sitaGLIPtin PHOSPHATE 50 MG TABLET PO SCH (06:04)
[2019-10-13] MEDS: LEVOTHYROXINE NA 50 MCG TABLET (FP) PO SCH (06:04)
[2019-10-13] MEDS: INSULIN SLIDING SCALE (NOVOLOG) 1 VIAL SQ SCH ×3 (06:05→17:01)
[2019-10-13] MEDS: ALBUTEROL SO4 2.5/IPRATROPIUM 0.5 INH SOL 3 ML VIAL.NEB. NEB SCH ×4 (08:06→20:53)
[2019-10-13] MEDS: FUROSEMIDE 40 MG TABLET (FP) PO SCH (09:35)
[2019-10-13] MEDS: POLYETHYLENE GLYCOL 3350 119 GM BTL PO SCH (09:35)
--- NOTE | 2019-10-13 10:34 | PN ---
Progress Note (short form) - Note Progress Note: PULMONARY AWAKE MILD SUBJECTIVE IMPROVEMENT VSS/AFEBRILE ANICTERIC SCATTERED WHEEZE B/L RHONCHI S1S2 LEFT BREAST DIFFUSE EDEMA LEFT ARM 4+EDEMA BS+ OBESE NO ANKLE EDEMA LABS/US/MEDS/NOTES/IMAGES REVIEWED IMP DYSPNEA ASTHMA EXACERBATION AFIB/JUNCTIONAL RHYTM H/O HYPERTHYROID CHF SYSTOLIC/DIASTOLIC ASHD S/P MVR H/O LEFT POPLITEAL DVT LEFT BREAST MASS LEFT ARM EDEMA PLAN INHALED BRONCHODILATORS/O2/STEROIDS NEED TO R/O LEFT UPPER EXT DVT AC PER INR W/U BREAST MASS WITH MAMMOGRAM AND SURGICAL EVALUATION Zeferino WALLER MD
--- NOTE | 2019-10-13 14:28 | PN ---
Progress Note, Physician History of Present Illness: seen and examined today in nad. awake and alert, mildly confused, calm. states she is feeling better. states she has been brining up sputum with her cough. sob is improving. - Current Medication List Current Medications: Active Medications Acetaminophen (Tylenol -) 650 mg PO Q4H PRN PRN Reason: FEVER Albuterol/Ipratropium (Duoneb -) 1 amp NEB RQID [facility] Last Admin: 10/13/19 11:23 Dose: 1 amp Atorvastatin Calcium (Lipitor -) 20 mg PO HS [facility] Last Admin: 10/12/19 22:09 Dose: 20 mg Furosemide (Lasix -) 40 mg PO DAILY [facility] Last Admin: 10/13/19 09:35 Dose: 40 mg Insulin Aspart (Novolog Vial Sliding Scale -) 1 vial SQ TIDAC [facility]; Protocol Last Admin: 10/13/19 11:21 Dose: 3 units Levothyroxine Sodium (Synthroid -) 50 mcg PO DAILY@0700 [facility] Last Admin: 10/13/19 06:04 Dose: 50 mcg Losartan Potassium (Cozaar -) 25 mg PO [facility] Last Admin: 10/12/19 22:09 Dose: 25 mg Methylprednisolone Sodium Succinate (Solu-Medrol -) 40 mg IVPUSH Q6H-IV [facility] Last Admin: 10/13/19 09:35 Dose: 40 mg Non-Formulary Medication (Linaclotide [Linzess]) 72 mcg PO DAILY [facility] Polyethylene Glycol (Miralax (For Daily Use) -) 17 gm PO DAILY [facility] Last Admin: 10/13/19 09:35 Dose: 17 grams Sitagliptin Phosphate (Januvia -) 50 mg PO DAILY@0700 [facility] Last Admin: 10/13/19 06:04 Dose: 50 mg - Objective Vital Signs: Vital Signs Temperature 97.9 F 10/13/19 14:16 Pulse Rate 87 10/13/19 14:16 Respiratory Rate 22 H 10/13/19 14:16 Blood Pressure 150/93 10/13/19 14:16 O2 Sat by Pulse Oximetry (%) 99 10/13/19 10:00 Constitutional: Yes: No Distress, Calm Eyes: Yes: Conjunctiva Clear, EOM Intact HENT: Yes: Atraumatic, Normocephalic Neck: Yes: Supple, Trachea Midline Cardiovascular: Yes: Pulse Irregular, S1, S2. No: Regular Rate and Rhythm, Bradycardia, Tachycardia, Bruit, JVD, Gallop, Murmur, Rub, S3, S4, Varicosities Respiratory: Yes: Regular, Diminished, On Nasal O2, Rhonchi, Wheezes. No: Rales , SOB Gastrointestinal: Yes: Normal Bowel Sounds, Soft. No: Distention, Tenderness Musculoskeletal: Yes: WNL Extremities: Yes: WNL Edema: Yes Edema: LUE: 1+ Neurological: Yes: Alert, Oriented Psychiatric: Yes: Alert, Oriented Labs: CBC, BMP 10/12/19 05:30 10/12/19 05:30 INR, PTT INR 1.86 (0.83-1.09) H 10/12/19 05:30 - ....Imaging Chest X-ray: Report Reviewed, Image Reviewed EKG: Report Reviewed, Image Reviewed Other: Report Reviewed, Image Reviewed (tele-af, hr adequate) Assessment/Plan 79 year old woman with a PMH of Dementia, AFIB on coumadin, chronic combined systoilc and diastolic CHF, history of Bio-MVR, h/o LIJ and axillary vein thrombus, DM Hyperthyroidism, Fatty Liver, and COPD admitted with sob. SOB responded to nebs in ER. Noted to be bradycardic as well and admitted for further monitoring. pt seen and examined today in nad. awake and alert. states she is feeling better. states sob has resolved. denies chest pain, palpitations. Notes LUE swelling. Found to have L breast mass with bloody discharge. SOB-AE COPD -improved with nebs and steroids -does not appear sig volume overloaded -cont po Lasix Arrhythmia-h/o pafib -mild bradycardia in ER, HR has remained adequate since admission -clarify home AV michelle carmita regimen, both Metoprolol Tartrate 25mg daily and Diltiazem CD 360mg daily listed -can resume cardizem at lower dose and titrate up as needed. -was on warfarin for goal inr 2-3, held currently if planned for procedure (ie breast biopsy) H/o Bio AVR -stable
--- NOTE | 2019-10-13 14:46 | PN ---
Progress Note, Physician Chief Complaint: AWAKE ALERT DENIES FEVER OR CHILLS BREAST BLEEDING CONTROLLED - Current Medication List Current Medications: Active Medications Acetaminophen (Tylenol -) 650 mg PO Q4H PRN PRN Reason: FEVER Albuterol/Ipratropium (Duoneb -) 1 amp NEB RQID [facility] Last Admin: 10/13/19 11:23 Dose: 1 amp Atorvastatin Calcium (Lipitor -) 20 mg PO HS [facility] Last Admin: 10/12/19 22:09 Dose: 20 mg Diltiazem HCl (Cardizem Cd -) 120 mg PO DAILY [facility] Furosemide (Lasix -) 40 mg PO DAILY [facility] Last Admin: 10/13/19 09:35 Dose: 40 mg Insulin Aspart (Novolog Vial Sliding Scale -) 1 vial SQ TIDAC [facility]; Protocol Last Admin: 10/13/19 11:21 Dose: 3 units Levothyroxine Sodium (Synthroid -) 50 mcg PO DAILY@0700 [facility] Last Admin: 10/13/19 06:04 Dose: 50 mcg Losartan Potassium (Cozaar -) 25 mg PO [facility] Last Admin: 10/12/19 22:09 Dose: 25 mg Methylprednisolone Sodium Succinate (Solu-Medrol -) 40 mg IVPUSH Q6H-IV [facility] Last Admin: 10/13/19 09:35 Dose: 40 mg Non-Formulary Medication (Linaclotide [Linzess]) 72 mcg PO DAILY [facility] Polyethylene Glycol (Miralax (For Daily Use) -) 17 gm PO DAILY [facility] Last Admin: 10/13/19 09:35 Dose: 17 grams Sitagliptin Phosphate (Januvia -) 50 mg PO DAILY@0700 [facility] Last Admin: 10/13/19 06:04 Dose: 50 mg - Objective Vital Signs: Vital Signs Temperature 97.9 F 10/13/19 14:16 Pulse Rate 87 10/13/19 14:16 Respiratory Rate 22 H 10/13/19 14:16 Blood Pressure 150/93 10/13/19 14:16 O2 Sat by Pulse Oximetry (%) 99 10/13/19 10:00 Constitutional: Yes: No Distress Cardiovascular: Yes: Regular Rate and Rhythm Respiratory: Yes: Diminished, On Nasal O2 Gastrointestinal: Yes: Abdomen, Obese Breast(s): Yes: Other (BLEED FROM BREAST ON LEFT) Musculoskeletal: Yes: Muscle Weakness Edema: Yes Integumentary: Yes: Other Wound/Incision: Yes: Dressing Dry and Intact Neurological: Yes: Pre-Existing Deficit ...Motor Strength: LLE, RLE Labs: CBC, BMP 10/12/19 05:30 10/12/19 05:30 INR, PTT INR 1.86 (0.83-1.09) H 10/12/19 05:30 Problem List - Problems (1) Asthma attack Code(s): J45.901 - UNSPECIFIED ASTHMA WITH (ACUTE) EXACERBATION Qualifiers: Asthma persistence: intermittent (2) Controlled diabetes mellitus with diabetic peripheral angiopathy without gangrene, without long-term current use of insulin Code(s): E11.51 - TYPE 2 DIABETES W DIABETIC PERIPHERAL ANGIOPATH W/O GANGRENE Qualifiers: Diabetes mellitus type: type 2 Qualified Code(s): E11.51 - Type 2 diabetes mellitus with diabetic peripheral angiopathy without gangrene (3) Other specified hypothyroidism Code(s): E03.8 - OTHER SPECIFIED HYPOTHYROIDISM (4) Abdominal pain Code(s): R10.9 - UNSPECIFIED ABDOMINAL PAIN (5) Anxiety and depression Code(s): F41.9 - ANXIETY DISORDER, UNSPECIFIED; F32.9 - MAJOR DEPRESSIVE DISORDER, SINGLE EPISODE, UNSPECIFIED (6) Atrial fibrillation Code(s): I48.91 - UNSPECIFIED ATRIAL FIBRILLATION Qualifiers: Atrial fibrillation type: permanent Qualified Code(s): I48.21 - Permanent atrial fibrillation (7) Breast mass, left Code(s): N63 - UNSPECIFIED LUMP IN BREAST * DO NOT USE * Assessment/Plan IV STEROIDS FOR ASTHMA EXACERBATION NEBS/02 SUPPORT PULM EVAL BREAST MASS, SONO SHOWS INTRADUCTAL DIALTION/EDEMA DR BROCK FOR BREAST SURGERY EVAL DVT PROPHYLAXIS ON COUMADIN IV LEVAQUIN
[2019-10-13] MEDS: LOSARTAN POTASSIUM 25 MG TABLET PO SCH (21:42)
[2019-10-13] MEDS: ATORVASTATIN CA 20 MG TABLET (FP) PO SCH (21:42)
[2019-10-14] MEDS: methylPREDNISolone NA SUCC 40 MG/1 ML VIAL IVPUSH SCH ×3 (02:58→17:43)
[2019-10-14] MEDS: sitaGLIPtin PHOSPHATE 50 MG TABLET PO SCH (06:28)
[2019-10-14] MEDS: INSULIN SLIDING SCALE (NOVOLOG) 1 VIAL SQ SCH ×3 (06:28→17:42)
[2019-10-14] MEDS: LEVOTHYROXINE NA 50 MCG TABLET (FP) PO SCH (06:28)
[2019-10-14] MEDS: ALBUTEROL SO4 2.5/IPRATROPIUM 0.5 INH SOL 3 ML VIAL.NEB. NEB SCH ×4 (08:29→21:11)
[2019-10-14 08:35] LABS: HEMATOCRIT 34.7 % (32.4-45.2); HEMOGLOBIN 11.3 GM/dL (10.7-15.3); MCH 29.3 pg (25.7-33.7); MCHC 32.4 g/dl (32.0-36.0); MEAN CELL VOLUME 90.3 fl (80-96); MEAN PLT VOLUME 8.7 fl (7.5-11.1); PLATELET COUNT 149 K/MM3 (134-434); RBC 3.84 M/mm3 (3.60-5.2); RDW 17.8 % (11.6-15.6); WHITE BLOOD COUNT 6.8 K/mm3 (4.0-10.0)
[2019-10-14 08:47] LABS: INR 1.6 (0.83-1.09)
[2019-10-14 08:58] LABS: BLOOD UREA NITROGEN 18.5 mg/dL (7-18); CALCIUM 8.5 mg/dL (8.5-10.1); CREATININE 0.8 mg/dL (0.55-1.3); POTASSIUM 4.2 mmol/L (3.5-5.1)
[2019-10-14] MEDS: FUROSEMIDE 40 MG TABLET (FP) PO SCH (10:14)
[2019-10-14] MEDS: POLYETHYLENE GLYCOL 3350 119 GM BTL PO SCH (10:14)
[2019-10-14] MEDS ORDERED: predniSONE 20 MG TABLET (UD) PO SCH (11:15)
--- NOTE | 2019-10-14 11:15 | PN ---
Progress Note, Physician Chief Complaint: AWAKE ALERT FEELING BETTER AWAITING BREEAST SURGERY EVAL - Current Medication List Current Medications: Active Medications Acetaminophen (Tylenol -) 650 mg PO Q4H PRN PRN Reason: FEVER Albuterol/Ipratropium (Duoneb -) 1 amp NEB RQID [facility] Last Admin: 10/14/19 08:29 Dose: 1 amp Atorvastatin Calcium (Lipitor -) 20 mg PO [facility] Last Admin: 10/13/19 21:42 Dose: 20 mg Diltiazem HCl (Cardizem Cd -) 120 mg PO DAILY [facility] Last Admin: 10/14/19 10:14 Dose: 120 mg Furosemide (Lasix -) 40 mg PO DAILY [facility] Last Admin: 10/14/19 10:14 Dose: 40 mg Insulin Aspart (Novolog Vial Sliding Scale -) 1 vial SQ TIDAC [facility]; Protocol Last Admin: 10/14/19 06:28 Dose: Not Given Levothyroxine Sodium (Synthroid -) 50 mcg PO DAILY@0700 [facility] Last Admin: 10/14/19 06:28 Dose: 50 mcg Losartan Potassium (Cozaar -) 25 mg PO [facility] Last Admin: 10/13/19 21:42 Dose: 25 mg Non-Formulary Medication (Linaclotide [Linzess]) 72 mcg PO DAILY [facility] Polyethylene Glycol (Miralax (For Daily Use) -) 17 gm PO DAILY [facility] Last Admin: 10/14/19 10:14 Dose: 17 grams Prednisone (Deltasone -) 60 mg PO DAILY [facility] Sitagliptin Phosphate (Januvia -) 50 mg PO DAILY@0700 [facility] Last Admin: 10/14/19 06:28 Dose: 50 mg - Objective Vital Signs: Vital Signs Temperature 98.1 F 10/14/19 10:00 Pulse Rate 81 10/14/19 10:00 Respiratory Rate 20 10/14/19 10:00 Blood Pressure 152/100 10/14/19 10:00 O2 Sat by Pulse Oximetry (%) 98 10/13/19 21:00 Constitutional: Yes: No Distress Cardiovascular: Yes: Regular Rate and Rhythm Respiratory: Yes: Diminished, On Nasal O2 Gastrointestinal: Yes: Soft, Abdomen, Obese Genitourinary: Yes: Incontinence Musculoskeletal: Yes: Muscle Weakness Edema: No Integumentary: Yes: Venous Stasis Changes Wound/Incision: Yes: Open to air Neurological: Yes: Pre-Existing Deficit ...Motor Strength: LLE, RLE Psychiatric: Yes: WNL Labs: CBC, BMP 10/14/19 07:54 10/14/19 07:54 INR, PTT INR 1.60 (0.83-1.09) H 10/14/19 07:54 Problem List - Problems (1) Asthma attack Code(s): J45.901 - UNSPECIFIED ASTHMA WITH (ACUTE) EXACERBATION Qualifiers: Asthma persistence: intermittent (2) Controlled diabetes mellitus with diabetic peripheral angiopathy without gangrene, without long-term current use of insulin Code(s): E11.51 - TYPE 2 DIABETES W DIABETIC PERIPHERAL ANGIOPATH W/O GANGRENE Qualifiers: Diabetes mellitus type: type 2 Qualified Code(s): E11.51 - Type 2 diabetes mellitus with diabetic peripheral angiopathy without gangrene (3) Other specified hypothyroidism Code(s): E03.8 - OTHER SPECIFIED HYPOTHYROIDISM (4) Abdominal pain Code(s): R10.9 - UNSPECIFIED ABDOMINAL PAIN (5) Anxiety and depression Code(s): F41.9 - ANXIETY DISORDER, UNSPECIFIED; F32.9 - MAJOR DEPRESSIVE DISORDER, SINGLE EPISODE, UNSPECIFIED (6) Atrial fibrillation Code(s): I48.91 - UNSPECIFIED ATRIAL FIBRILLATION Qualifiers: Atrial fibrillation type: permanent Qualified Code(s): I48.21 - Permanent atrial fibrillation (7) Breast mass, left Code(s): N63 - UNSPECIFIED LUMP IN BREAST * DO NOT USE * Assessment/Plan IV STEROIDS FOR ASTHMA EXACERBATION CHANGED TO PO PREDNISONE NEBS/02 SUPPORT PULM EVAL APPRECIATED BREAST MASS, SONO SHOWS INTRADUCTAL DIALTION/EDEMA DR BROCK FOR BREAST SURGERY EVAL THIS CAN BE DONE OUTPATIENT DVT PROPHYLAXIS ON COUMADIN IV LEVAQUIN STOPPED
--- NOTE | 2019-10-14 11:58 | PN ---
Progress Note (short form) - Note Progress Note: PULMONARY Still short of breath with cough and chest tightness. Vital Signs Period Temp Pulse Resp BP Sys/Urrutia Pulse Ox Last 24 Hr 97.4 F-98.4 F 71-90 19-22 85-156/58-100 98 Gen: tachypneic at rest Heart: RRR Lung: scattered rhonchi Abd: soft, nontender Ext: no edema CBC, BMP 10/14/19 07:54 10/14/19 07:54 Active Medications Acetaminophen (Tylenol -) 650 mg PO Q4H PRN PRN Reason: FEVER Albuterol/Ipratropium (Duoneb -) 1 amp NEB RQID [facility] Last Admin: 10/14/19 08:29 Dose: 1 amp Atorvastatin Calcium (Lipitor -) 20 mg PO [facility] Last Admin: 10/13/19 21:42 Dose: 20 mg Diltiazem HCl (Cardizem Cd -) 120 mg PO DAILY [facility] Last Admin: 10/14/19 10:14 Dose: 120 mg Furosemide (Lasix -) 40 mg PO DAILY [facility] Last Admin: 10/14/19 10:14 Dose: 40 mg Insulin Aspart (Novolog Vial Sliding Scale -) 1 vial SQ TIDAC [facility]; Protocol Last Admin: 10/14/19 06:28 Dose: Not Given Levothyroxine Sodium (Synthroid -) 50 mcg PO DAILY@0700 [facility] Last Admin: 10/14/19 06:28 Dose: 50 mcg Losartan Potassium (Cozaar -) 25 mg PO [facility] Last Admin: 10/13/19 21:42 Dose: 25 mg Non-Formulary Medication (Linaclotide [Linzess]) 72 mcg PO DAILY [facility] Polyethylene Glycol (Miralax (For Daily Use) -) 17 gm PO DAILY [facility] Last Admin: 10/14/19 10:14 Dose: 17 grams Prednisone (Deltasone -) 60 mg PO DAILY [facility] Sitagliptin Phosphate (Januvia -) 50 mg PO DAILY@0700 [facility] Last Admin: 10/14/19 06:28 Dose: 50 mg A/P Acute Asthma Exacerbation LV Systolic/Diastolic Dysfunction Atrial Fibrillation Hypothyroidism HTN Hyperlipidemia DM Breast Mass - continue medrol - inhaled bronchodilators - O2 to keep spO2 >90% - will add singulair - rate controlled - breast mass work up
[2019-10-14] MEDS ORDERED: methylPREDNISolone NA SUCC 40 MG/1 ML VIAL IVPUSH SCH (12:00)
--- NOTE | 2019-10-14 12:22 | CONSULT ---
Consult Consult Specialty:: Breast Surgery Referred by:: Dr. Salinas Reason for Consultation:: Left breast swelling/bleeding - History of Present Illness Chief Complaint: The patient is a 79 y.o. G7,P7 /Prydeinig female admitted 10/11/19 wityh confusion and SOB and found to have left breast swelling with bleeding and left arm lymphedema. History of Present Illness: The patient is a 79 y.o. G7,P7 /Prydeinig female admitted 10/11/19 with confusion and SOB. She has a history of asthma, CHF, hyperthyroidism, A-fib, DM , and with a history of a Mitral valve replacement (pig) on coumadin. She has been getting medical management with significant improvement and is now alert and oriented. She was found to have left breast swelling with bleeding and left arm lymphedema which the patient says she has noticed worsening over the last couple months. She says that she has been non-compliant with her medications. There was some bleeding noted from her left breast during her hospital stay. Ultrasound was performed on 10/12/19 showing no definite mass but breast and skin thickening was noted. She does have a history of a left breast biopsy on 05/20/17 showing an intraductal papilloma with atypia. I have been consulted for work up of her left breast swelling/edema. 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 No: Diabetes Mellitus Additional Medical History: LEFT POPLITEAL DVT - Past Surgical History Past Surgical History: Yes: Tubal Ligation (laparoscopic), Valve Replacement ( mechanical mitral 2 wks ago) - Alcohol/Substance Use Hx Alcohol Use: No History of Substance Use: reports: None - Smoking History Smoking history: Never smoked Have you smoked in the past 12 months: No Aproximately how many cigarettes per day: 0 - Social History Usual Living Arrangement: Long Term ADL: Independent History of Recent Travel: No Home Medications - Allergies Allergies/Adverse Reactions: Allergies Allergy/AdvReac Type Severity Reaction Status Date / Time ampicillin [Ampicillin] Allergy Severe Swelling Verified 12/17/17 14:22 codeine [Codeine] Allergy Swelling Verified 12/17/17 14:22 - Home Medications Home Medications: Ambulatory Orders Diltiazem Cd [Cardizem Cd -] 360 mg PO DAILY tab 08/13/17 Methimazole [Tapazole -] 5 mg PO AM tablet 11/05/17 Losartan Potassium 25 mg PO HS 12/17/17 Albuterol 0.083% Nebulizer Pooja [Ventolin 0.083% Nebulizer Soln -] 1 amp NEB Q4H PRN amp 11/03/18 Metoprolol Tartrate [Lopressor -] 25 mg PO DAILY tablet 11/03/18 Warfarin Na [Coumadin -] 3 mg PO DAILY@1800 tablet 11/03/18 Atorvastatin Ca [Lipitor] 10 mg PO HS 10/11/19 Escitalopram Oxalate [Lexapro -] 5 mg PO DAILY 10/11/19 Escitalopram Oxalate [Lexapro -] 10 mg PO DAILY 10/11/19 Mirtazapine 7.5 mg PO DAILY 10/11/19 Prednisone 10 mg PO PRN 10/11/19 Sitagliptin Phosphate [Januvia] 25 mg PO DAILY 10/11/19 Warfarin Sodium 4 mg PO PRN 10/11/19 Warfarin Sodium 5 mg PO PRN 10/11/19 Warfarin Sodium 6 mg PO PRN 10/11/19 predniSONE [Deltasone -] 20 mg PO DAILY 10/11/19 Family Medical History Family History: Denies (patient denies any family history of breast cancer) Review of Systems - Review of Systems Constitutional: reports: Lethargy Eyes: reports: No Symptoms HENT: reports: No Symptoms Neck: reports: No Symptoms Cardiovascular: reports: No Symptoms Respiratory: reports: SOB (shortness of breath improving) Gastrointestinal: reports: No Symptoms Genitourinary: reports: No Symptoms Breasts: reports: Other (Left breast swelling and left arm swelling with occasioanl left nipple bloody discharge) Musculoskeletal: reports: Muscle Weakness Psychiatric: reports: No Symptoms Physical Exam Vital Signs: Vital Signs Temperature 98.1 F 10/14/19 10:00 Pulse Rate 81 10/14/19 10:00 Respiratory Rate 20 10/14/19 10:00 Blood Pressure 152/100 10/14/19 10:00 O2 Sat by Pulse Oximetry (%) 98 10/13/19 21:00 Constitutional: Yes: Calm Eyes: Yes: WNL HENT: Yes: WNL Neck: Yes: WNL Cardiovascular: Yes: Regular Rate and Rhythm Respiratory: Yes: Regular Gastrointestinal: Yes: Normal Bowel Sounds, Soft ...Rectal Exam: Yes: Deferred Breast(s): Yes: Other (Left breast diffusely swollen with thickening in skin but no discrete mass and no current bloody nipple discharge. Right breast normal. No adenopathy felt but patient with significant left arm lymphedema) Musculoskeletal: Yes: WNL Extremities: Yes: Other (left arm significant lymphedema into hand) Integumentary: Yes: WNL Neurological: Yes: Alert, Oriented Labs: CBC, BMP 10/14/19 07:54 10/14/19 07:54 Imaging - Results Ultrasound: Report Reviewed (Left breast ultrasound with no descrete masses but noted diffuse edema and skin thickening. Dilated retroareolar ducts seen.) Problem List - Problems (1) Left breast mass Assessment/Plan: The patient is a 79 y.o. G7,P7 /Prydeinig woman with history of asthma, CHF, A-fib, hyperthyroidism, DM, and with history of mitral valve repair (pig valve) on coumadin. She was admitted with SOB and confusion which has improved with medical management and she is now awake and alert. She was found to have left breast swelling and some bloody nipple discharge and was sent for a left breast ultrasound on 10/12/19 showing no discrete mass but significant breast swelling and skin thickening. Also noted to have left arm lymphedema which she say has been worsening over the last few months. She has been non-compliant with her medications according to the patient. On exam, I cannot feel any discrete left breast mass or significant lymphadenopathy to account for her left arm and breast lymphedema. She definitely requires a bilateral mammography to rule out a breast mass and would recommend a left upper extremity venous duplex to rule out a left subclavian/axillary vein DVT as possible cause of her arm/breast swelling. Hopefully this can be performed before discharge. I can see her as an outpatient regarding her breast swelling and can follow up on her mammography at that time. Please give her my name and office number ([phone]) on discharge so she can make an appointment. Otherwise, continue medical management of her current cardiac, pulmonary issues and I will see her again as an outpatient. Problems reviewed: Yes Code(s): N63.20 - UNSPECIFIED LUMP IN THE LEFT BREAST, UNSPECIFIED QUADRANT
[2019-10-14] MEDS ORDERED: guaiFENesin/D-METHORPHAN HB 10 ML UNIT-DOSE CUPS PO PRN (12:23)
--- NOTE | 2019-10-14 12:32 | PN ---
Progress Note, Physician Chief Complaint: Shortness of breath History of Present Illness: 79 year old woman with a PMH of Dementia, AFIB on coumadin, chronic combined systoilc and diastolic CHF, history of Bio-MVR, h/o LIJ and axillary vein thrombus, DM Hyperthyroidism, Fatty Liver, and COPD admitted with sob. SOB responded to nebs in ER. Noted to be bradycardic as well and admitted for further monitoring. The patient is clinically and symptomatically better. Claims that her breathing is much improved. No chest pains. No palpitations. No further bradycardia arrhythmias. - Current Medication List Current Medications: Active Medications Acetaminophen (Tylenol -) 650 mg PO Q4H PRN PRN Reason: FEVER Albuterol/Ipratropium (Duoneb -) 1 amp NEB RQID [facility] Last Admin: 10/14/19 12:06 Dose: 1 amp Atorvastatin Calcium (Lipitor -) 20 mg PO HS [facility] Last Admin: 10/13/19 21:42 Dose: 20 mg Budesonide/Formoterol Fumarate (Symbicort 160/4.5mcg -) 2 puff IH BID [facility] Diltiazem HCl (Cardizem Cd -) 120 mg PO DAILY [facility] Last Admin: 10/14/19 10:14 Dose: 120 mg Furosemide (Lasix -) 40 mg PO DAILY [facility] Last Admin: 10/14/19 10:14 Dose: 40 mg Guaifenesin (Robitussin Dm -) 10 ml PO Q6H PRN PRN Reason: COUGH Insulin Aspart (Novolog Vial Sliding Scale -) 1 vial SQ TIDAC [facility]; Protocol Last Admin: 10/14/19 12:25 Dose: 3 units Levothyroxine Sodium (Synthroid -) 50 mcg PO DAILY@0700 [facility] Last Admin: 10/14/19 06:28 Dose: 50 mcg Losartan Potassium (Cozaar -) 25 mg PO HS [facility] Last Admin: 10/13/19 21:42 Dose: 25 mg Methylprednisolone Sodium Succinate (Solu-Medrol -) 40 mg IVPUSH Q8H-IV [facility] Montelukast Sodium (Singulair -) 10 mg PO HS [facility] Non-Formulary Medication (Linaclotide [Linzess]) 72 mcg PO DAILY [facility] Polyethylene Glycol (Miralax (For Daily Use) -) 17 gm PO DAILY [facility] Last Admin: 10/14/19 10:14 Dose: 17 grams Sitagliptin Phosphate (Januvia -) 50 mg PO DAILY@0700 [facility] Last Admin: 10/14/19 06:28 Dose: 50 mg - Objective Vital Signs: Vital Signs Temperature 98.1 F 10/14/19 10:00 Pulse Rate 81 10/14/19 10:00 Respiratory Rate 20 10/14/19 10:00 Blood Pressure 152/100 10/14/19 10:00 O2 Sat by Pulse Oximetry (%) 98 10/13/19 21:00 Constitutional: Yes: Obese Eyes: Yes: WNL, Conjunctiva Clear, EOM Intact HENT: Yes: WNL, Atraumatic, Normocephalic Neck: Yes: WNL, Supple, Trachea Midline Cardiovascular: Yes: Pulse Irregular, S1, S2 Respiratory: Yes: Regular, CTA Bilaterally Gastrointestinal: Yes: WNL, Normal Bowel Sounds, Soft ...Rectal Exam: Yes: Deferred Genitourinary: Yes: WNL Musculoskeletal: Yes: WNL Edema: Yes Edema: LLE: Trace, RLE: Trace Peripheral Pulses: Left Radial: 1+, Right Radial: 1+, Left Doralis Pedis: 1+, Right Dorsalis Pedis: 1+, Left Femoral: 1+, Right Femoral: 1+ Integumentary: Yes: WNL Neurological: Yes: WNL, Alert, Oriented ...Motor Strength: WNL Psychiatric: Yes: WNL, Alert, Oriented Labs: CBC, BMP 10/14/19 07:54 10/14/19 07:54 INR, PTT INR 1.60 (0.83-1.09) H 10/14/19 07:54 Assessment/Plan 79 year old woman with a PMH of Dementia, AFIB on coumadin, chronic combined systoilc and diastolic CHF, history of Bio-MVR, h/o LIJ and axillary vein thrombus, DM Hyperthyroidism, Fatty Liver, and COPD admitted with sob. SOB responded to nebs in ER. Noted to be bradycardic as well and admitted for further monitoring. The patient is clinically and symptomatically better. Claims that her breathing is much improved. No chest pains. No palpitations. No further bradycardia arrhythmias. Please continue current regimen. Respiratory toilet. Incentive spirometry. May stop telemetry. No further bradycardias nor tachyarrhythmias. No need for further cardiac work-up at this point. Please do not hesitate to call us as needed
[2019-10-14] MEDS: BUDESONIDE/FORMETEROL FUMARATE 160/4.5 mcg INHALER IH SCH ×2 (14:07→23:11)
--- NOTE | 2019-10-14 16:42 | CONSULT ---
Consult Consult Specialty:: Podiatry Reason for Consultation:: Edema b/l feet. Onychomycosis b/l feet nails x 10. Xerosis b/l feet. 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 No: Diabetes Mellitus Additional Medical History: LEFT POPLITEAL DVT - Past Surgical History Past Surgical History: Yes: Tubal Ligation (laparoscopic), Valve Replacement ( mechanical mitral 2 wks ago) - Alcohol/Substance Use Hx Alcohol Use: No History of Substance Use: reports: None - Smoking History Smoking history: Never smoked Have you smoked in the past 12 months: No Aproximately how many cigarettes per day: 0 - Social History Usual Living Arrangement: Group Home ADL: Independent History of Recent Travel: No Home Medications - Allergies Allergies/Adverse Reactions: Allergies Allergy/AdvReac Type Severity Reaction Status Date / Time ampicillin [Ampicillin] Allergy Severe Swelling Verified 12/17/17 14:22 codeine [Codeine] Allergy Swelling Verified 12/17/17 14:22 - Home Medications Home Medications: Ambulatory Orders Diltiazem Cd [Cardizem Cd -] 360 mg PO DAILY tab 08/13/17 Methimazole [Tapazole -] 5 mg PO AM tablet 11/05/17 Losartan Potassium 25 mg PO HS 12/17/17 Albuterol 0.083% Nebulizer Pooja [Ventolin 0.083% Nebulizer Soln -] 1 amp NEB Q4H PRN amp 11/03/18 Metoprolol Tartrate [Lopressor -] 25 mg PO DAILY tablet 11/03/18 Warfarin Na [Coumadin -] 3 mg PO DAILY@1800 tablet 11/03/18 Atorvastatin Ca [Lipitor] 10 mg PO HS 10/11/19 Escitalopram Oxalate [Lexapro -] 5 mg PO DAILY 10/11/19 Escitalopram Oxalate [Lexapro -] 10 mg PO DAILY 10/11/19 Mirtazapine 7.5 mg PO DAILY 10/11/19 Prednisone 10 mg PO PRN 10/11/19 Sitagliptin Phosphate [Januvia] 25 mg PO DAILY 10/11/19 Warfarin Sodium 4 mg PO PRN 10/11/19 Warfarin Sodium 5 mg PO PRN 10/11/19 Warfarin Sodium 6 mg PO PRN 10/11/19 predniSONE [Deltasone -] 20 mg PO DAILY 10/11/19 Physical Exam Vital Signs: Vital Signs Temperature 98.7 F 10/14/19 15:00 Pulse Rate 78 10/14/19 15:00 Respiratory Rate 22 H 10/14/19 15:00 Blood Pressure 162/101 H 10/14/19 15:00 O2 Sat by Pulse Oximetry (%) 98 10/14/19 09:00 Extremities: Yes: Other (nvsgi, +onychomycosis x 10, +xerosis b/l, +elongated thickened toe nails with subungual debris, +non pitting edema) Labs: CBC, BMP 10/14/19 07:54 10/14/19 07:54 Assessment/Plan onychomycosis xerosis pain edema Ammonium lactae BID. Will return to debride nails tomorrow. Foot care q weeks. Pt would benefit from topical antifungal. Will follow.
[2019-10-14] MEDS ORDERED: AMMONIUM LACTATE 12% LOTION 225 GM BOTTLE TP PRN (17:47)
[2019-10-14] MEDS ORDERED: MONTELUKAST NA 10 MG TABLET PO SCH (22:00)
[2019-10-14] MEDS: ATORVASTATIN CA 20 MG TABLET (FP) PO SCH (23:09)
[2019-10-14] MEDS: LOSARTAN POTASSIUM 25 MG TABLET PO SCH (23:09)
[2019-10-15] MEDS: methylPREDNISolone NA SUCC 40 MG/1 ML VIAL IVPUSH SCH ×3 (02:20→17:19)
[2019-10-15] MEDS: sitaGLIPtin PHOSPHATE 50 MG TABLET PO SCH (06:34)
[2019-10-15] MEDS: LEVOTHYROXINE NA 50 MCG TABLET (FP) PO SCH (06:34)
[2019-10-15] MEDS: INSULIN SLIDING SCALE (NOVOLOG) 1 VIAL SQ SCH ×3 (06:35→17:19)
[2019-10-15] MEDS: ALBUTEROL SO4 2.5/IPRATROPIUM 0.5 INH SOL 3 ML VIAL.NEB. NEB SCH ×4 (07:35→19:49)
[2019-10-15] MEDS: POLYETHYLENE GLYCOL 3350 119 GM BTL PO SCH (09:53)
[2019-10-15] MEDS: BUDESONIDE/FORMETEROL FUMARATE 160/4.5 mcg INHALER IH SCH (09:53)
[2019-10-15] MEDS: FUROSEMIDE 40 MG TABLET (FP) PO SCH (09:53)
--- NOTE | 2019-10-15 09:53 | PN ---
Progress Note (short form) - Note Progress Note: Patient seen in bed. +tender dystrophic mycotic nails with subungual debris, +inflammed nail beds, + distal seperation of nail from bed onychomycosis pain Debride nails x 10. Discussed foot care. Foot care q8 weeks. continue ammonium lactate.
--- NOTE | 2019-10-15 10:10 | DS ---
Physical Examination Vital Signs: Vital Signs Temperature 98.1 F 10/15/19 05:47 Pulse Rate 65 10/15/19 05:47 Respiratory Rate 18 10/15/19 05:47 Blood Pressure 130/77 10/15/19 05:47 O2 Sat by Pulse Oximetry (%) 100 10/14/19 22:00 Findings/Remarks: awake alert feeling better Constitutional: Yes: Mild Distress Cardiovascular: Yes: Pulse Irregular Respiratory: Yes: Wheezes (MILD WHEEZES SCATTERED), Other Gastrointestinal: Yes: Soft, Abdomen, Obese Renal/: Yes: Incontinence Musculoskeletal: Yes: Muscle Weakness Edema: No Neurological: Yes: Pre-Existing Deficit ...Motor Strength: LLE, RLE Labs: CBC, BMP 10/14/19 07:54 10/14/19 07:54 Discharge Summary Problems reviewed: Yes Reason For Visit: ASTHMA WITH EXACERBATION Current Active Problems Asthma attack (Acute) Controlled diabetes mellitus with diabetic peripheral angiopathy without gangrene, without long-term current use of insulin (Acute) Other specified hypothyroidism (Acute) LEFT BREAST MASS/BLEED Procedures: Principal: LABS/CX Hospital Course: ADMITTED COPD ACUTE/CHRONIC EXACERBATION GIVEN IV STEROIDS SUPPORT COUMADIN STOPPED BECAUSE OF LEFT BREAST MASS/LESION BLEED WILL RESTART COUMADIN SLOWLY, SEEN BY BREAST SURGEON DR BROCK TO FOLLOW OUTPATIENT Plan of Treatment: RESTART COUMADIN, PREDNISONE TAPER, BREAST SURGEON FOLLOW UP Condition: Stable - Instructions Diet, Activity, Other Instructions: FOLLOW UP WITH DR ESTEVEZ BREAST SURGEON LEFT BREAST MASS RESTART COUMADIN FOLLOW UP PREDNISONE TAPER Referrals: Joey Hernandez MD [Primary Care Provider] - Disposition: INTERMEDIATE FACILITY - Home Medications Comprehensive Discharge Medication List: Ambulatory Orders Diltiazem Cd [Cardizem Cd -] 360 mg PO DAILY tab 08/13/17 Methimazole [Tapazole -] 5 mg PO AM tablet 11/05/17 Losartan Potassium 25 mg PO HS 12/17/17 Albuterol 0.083% Nebulizer Pooja [Ventolin 0.083% Nebulizer Soln -] 1 amp NEB Q4H PRN amp 11/03/18 Metoprolol Tartrate [Lopressor -] 25 mg PO DAILY tablet 11/03/18 Atorvastatin Ca [Lipitor] 10 mg PO HS 10/11/19 Escitalopram Oxalate [Lexapro -] 5 mg PO DAILY 10/11/19 Escitalopram Oxalate [Lexapro -] 10 mg PO DAILY 10/11/19 Mirtazapine 7.5 mg PO DAILY 10/11/19 Sitagliptin Phosphate [Januvia] 25 mg PO DAILY 10/11/19 Warfarin Sodium 4 mg PO PRN 10/11/19 Warfarin Sodium 5 mg PO PRN 10/11/19 Warfarin Sodium 6 mg PO PRN 10/11/19 Acetaminophen [Tylenol .Regular Strength -] 650 mg PO Q4H PRN tablet 10/15/19 Albuterol 2.5/Ipratropium 0.5 [Duoneb -] 1 amp NEB RQID amp 10/15/19 Ammonium Lactate Lotion [Lac-Hydrin 12] 1 applic TP DAILY PRN bottle 10/15/19 Atorvastatin Ca [Lipitor] 20 mg PO HS tablet 10/15/19 Budesonide/Formeterol Fumarate [SYMBICORT 160/4.5mcg -] 2 puff IH BID inhaler 10/15/19 Diltiazem Cd [Cardizem Cd -] 120 mg PO DAILY cap.cd.24h 10/15/19 Furosemide [Lasix -] 40 mg PO DAILY tablet 10/15/19 Guaifenesin Dm [Robitussin Dm -] 10 ml PO Q6H PRN cup 10/15/19 Insulin Sliding Scale [Novolog Vial Sliding Scale -] 1 vial SQ TIDAC units 12/30 Levothyroxine [Synthroid -] 50 mcg PO DAILY@0700 tablet 10/15/19 Losartan Potassium [Cozaar -] 25 mg PO HS tablet 10/15/19 Montelukast Na [Singulair -] 10 mg PO HS tablet 10/15/19 Polyethylene Glycol 3350 [Miralax 119 gm Btl -] 17 gm PO DAILY bottle 10/15/19 Sitagliptin Phosphate [Januvia -] 50 mg PO DAILY@0700 tablet 10/15/19 predniSONE [Deltasone -] See Taper PO DAILY tablet 10/15/19
--- NOTE | 2019-10-15 13:34 | PN ---
Progress Note, Physician History of Present Illness: PULMONARY ALERT,COMFORTABLE,-RESP DISTRESS - Current Medication List Current Medications: Active Medications Acetaminophen (Tylenol -) 650 mg PO Q4H PRN PRN Reason: FEVER Albuterol/Ipratropium (Duoneb -) 1 amp NEB RQID [facility] Last Admin: 10/15/19 11:33 Dose: 1 amp Atorvastatin Calcium (Lipitor -) 20 mg PO [facility] Last Admin: 10/14/19 23:09 Dose: 20 mg Budesonide/Formoterol Fumarate (Symbicort 160/4.5mcg -) 2 puff IH BID [facility] Last Admin: 10/15/19 09:53 Dose: 2 puff Diltiazem HCl (Cardizem Cd -) 120 mg PO DAILY [facility] Last Admin: 10/15/19 09:53 Dose: 120 mg Furosemide (Lasix -) 40 mg PO DAILY [facility] Last Admin: 10/15/19 09:53 Dose: 40 mg Guaifenesin (Robitussin Dm -) 10 ml PO Q6H PRN PRN Reason: COUGH Insulin Aspart (Novolog Vial Sliding Scale -) 1 vial SQ TIDAC [facility]; Protocol Last Admin: 10/15/19 11:11 Dose: Not Given Lactic Acid (Lac-Hydrin 12) 1 applic TP DAILY PRN PRN Reason: xerosis Last Admin: 10/14/19 23:12 Dose: 1 applic Levothyroxine Sodium (Synthroid -) 50 mcg PO DAILY@0700 [facility] Last Admin: 10/15/19 06:34 Dose: 50 mcg Losartan Potassium (Cozaar -) 25 mg PO [facility] Last Admin: 10/14/19 23:09 Dose: 25 mg Methylprednisolone Sodium Succinate (Solu-Medrol -) 40 mg IVPUSH Q8H-IV [facility] Last Admin: 10/15/19 09:53 Dose: 40 mg Montelukast Sodium (Singulair -) 10 mg PO [facility] Last Admin: 10/14/19 23:08 Dose: 10 mg Non-Formulary Medication (Linaclotide [Linzess]) 72 mcg PO DAILY [facility] Polyethylene Glycol (Miralax (For Daily Use) -) 17 gm PO DAILY [facility] Last Admin: 10/15/19 09:53 Dose: Not Given Sitagliptin Phosphate (Januvia -) 50 mg PO DAILY@0700 [facility] Last Admin: 10/15/19 06:34 Dose: 50 mg - Objective Vital Signs: Vital Signs Temperature 98.1 F 10/15/19 05:47 Pulse Rate 65 10/15/19 05:47 Respiratory Rate 18 10/15/19 05:47 Blood Pressure 130/77 10/15/19 05:47 O2 Sat by Pulse Oximetry (%) 99 10/15/19 10:00 Constitutional: Yes: Well Nourished, Calm Eyes: Yes: WNL HENT: Yes: WNL Neck: Yes: WNL Cardiovascular: Yes: Pulse Irregular, S1, S2 Respiratory: Yes: Wheezes (FEW WHEEZES) Gastrointestinal: Yes: Normal Bowel Sounds, Soft Extremities: Yes: WNL Edema: Yes (RUE) Labs: CBC, BMP 10/14/19 07:54 10/14/19 07:54 INR, PTT INR 1.60 (0.83-1.09) H 10/14/19 07:54 Problem List - Problems (1) Asthma attack Code(s): J45.901 - UNSPECIFIED ASTHMA WITH (ACUTE) EXACERBATION Qualifiers: Asthma persistence: intermittent (2) Controlled diabetes mellitus with diabetic peripheral angiopathy without gangrene, without long-term current use of insulin Code(s): E11.51 - TYPE 2 DIABETES W DIABETIC PERIPHERAL ANGIOPATH W/O GANGRENE Qualifiers: Diabetes mellitus type: type 2 Qualified Code(s): E11.51 - Type 2 diabetes mellitus with diabetic peripheral angiopathy without gangrene (3) Acute asthma exacerbation Code(s): J45.901 - UNSPECIFIED ASTHMA WITH (ACUTE) EXACERBATION Qualifiers: Asthma severity: moderate (4) Anemia Code(s): D64.9 - ANEMIA, UNSPECIFIED Qualifiers: Anemia type: other cause Other causes of anemia: acute posthemorrhagic Qualified Code(s): D62 - Acute posthemorrhagic anemia (5) Asthma exacerbation Code(s): J45.901 - UNSPECIFIED ASTHMA WITH (ACUTE) EXACERBATION (6) Atrial fibrillation Code(s): I48.91 - UNSPECIFIED ATRIAL FIBRILLATION Qualifiers: Atrial fibrillation type: permanent Qualified Code(s): I48.21 - Permanent atrial fibrillation (7) Breast mass, left Code(s): N63 - UNSPECIFIED LUMP IN BREAST * DO NOT USE * (8) Chronic systolic (congestive) heart failure Code(s): I50.22 - CHRONIC SYSTOLIC (CONGESTIVE) HEART FAILURE (9) DVT (deep venous thrombosis) Code(s): I82.409 - ACUTE EMBOLISM AND THOMBOS UNSP DEEP VN UNSP LOWER EXTREMITY Qualifiers: DVT location: non-extremity vein Chronicity: unspecified Qualified Code(s ): I82.90 - Acute embolism and thrombosis of unspecified vein (10) H/O heart valve replacement with bioprosthetic valve Code(s): Z95.3 - PRESENCE OF XENOGENIC HEART VALVE (11) History of mitral valve replacement with bioprosthetic valve Code(s): Z95.3 - PRESENCE OF XENOGENIC HEART VALVE (12) Hypertension Code(s): I10 - ESSENTIAL (PRIMARY) HYPERTENSION Qualifiers: Hypertension type: essential hypertension Qualified Code(s): I10 - Essential (primary) hypertension (13) Hyperthyroidism Code(s): E05.90 - THYROTOXICOSIS, UNSP WITHOUT THYROTOXIC CRISIS OR STORM (14) S/P MVR (mitral valve replacement) Code(s): Z95.2 - PRESENCE OF PROSTHETIC HEART VALVE (15) Shortness of breath Code(s): R06.02 - SHORTNESS OF BREATH Assessment/Plan IMP DYSPNEA IMPROVED ASTHMA EXACERBATION IMPROVED AFIB H/O HYPERTHYROID CHF SYSTOLIC/DIASTOLIC ASHD S/P MVR H/O LEFT POPLITEAL DVT LEFT BREAST MASS DEMENTIA PLAN INHALED BRONCHODILATORS STEROIDS AC PER INR W/U BREAST MASS PER PMD DR YE Problem List - Problems (1) Asthma attack Code(s): J45.901 - UNSPECIFIED ASTHMA WITH (ACUTE) EXACERBATION Qualifiers: Asthma persistence: intermittent (2) Controlled diabetes mellitus with diabetic peripheral angiopathy without gangrene, without long-term current use of insulin Code(s): E11.51 - TYPE 2 DIABETES W DIABETIC PERIPHERAL ANGIOPATH W/O GANGRENE Qualifiers: Diabetes mellitus type: type 2 Qualified Code(s): E11.51 - Type 2 diabetes mellitus with diabetic peripheral angiopathy without gangrene (3) Acute asthma exacerbation Code(s): J45.901 - UNSPECIFIED ASTHMA WITH (ACUTE) EXACERBATION Qualifiers: Asthma severity: moderate (4) Anemia Code(s): D64.9 - ANEMIA, UNSPECIFIED Qualifiers: Anemia type: other cause Other causes of anemia: acute posthemorrhagic Qualified Code(s): D62 - Acute posthemorrhagic anemia (5) Asthma exacerbation Code(s): J45.901 - UNSPECIFIED ASTHMA WITH (ACUTE) EXACERBATION (6) Atrial fibrillation Code(s): I48.91 - UNSPECIFIED ATRIAL FIBRILLATION Qualifiers: Atrial fibrillation type: permanent Qualified Code(s): I48.21 - Permanent atrial fibrillation (7) Breast mass, left Code(s): N63 - UNSPECIFIED LUMP IN BREAST * DO NOT USE * (8) Chronic systolic (congestive) heart failure Code(s): I50.22 - CHRONIC SYSTOLIC (CONGESTIVE) HEART FAILURE (9) DVT (deep venous thrombosis) Code(s): I82.409 - ACUTE EMBOLISM AND THOMBOS UNSP DEEP VN UNSP LOWER EXTREMITY Qualifiers: DVT location: non-extremity vein Chronicity: unspecified Qualified Code(s ): I82.90 - Acute embolism and thrombosis of unspecified vein (10) H/O heart valve replacement with bioprosthetic valve Code(s): Z95.3 - PRESENCE OF XENOGENIC HEART VALVE (11) History of mitral valve replacement with bioprosthetic valve Code(s): Z95.3 - PRESENCE OF XENOGENIC HEART VALVE (12) Hypertension Code(s): I10 - ESSENTIAL (PRIMARY) HYPERTENSION Qualifiers: Hypertension type: essential hypertension Qualified Code(s): I10 - Essential (primary) hypertension (13) Hyperthyroidism Code(s): E05.90 - THYROTOXICOSIS, UNSP WITHOUT THYROTOXIC CRISIS OR STORM (14) S/P MVR (mitral valve replacement) Code(s): Z95.2 - PRESENCE OF PROSTHETIC HEART VALVE (15) Shortness of breath Code(s): R06.02 - SHORTNESS OF BREATH
[2019-10-15 18:34] VITALS: BP 147/78; PULSE 71; TEMP 97.4
--- NOTE | 2019-10-16 01:06 | PN ---
Progress Note, Physician Chief Complaint: breathing better sugar stable,tolerating synthroid - Objective Vital Signs: Vital Signs Temperature 97.4 F L 10/15/19 18:00 Pulse Rate 71 10/15/19 18:00 Respiratory Rate 19 10/15/19 18:00 Blood Pressure 147/78 10/15/19 18:00 O2 Sat by Pulse Oximetry (%) 99 10/15/19 10:00 Constitutional: Yes: Calm Eyes: Yes: EOM Intact HENT: Yes: Normocephalic Neck: Yes: Trachea Midline Cardiovascular: Yes: Regular Rate and Rhythm Respiratory: Yes: CTA Bilaterally Gastrointestinal: Yes: Normal Bowel Sounds ...Rectal Exam: Yes: Deferred Genitourinary: Yes: WNL Musculoskeletal: Yes: Back Pain, Joint Swelling, Muscle Pain, Muscle Weakness Extremities: Yes: Delayed Capillary Refill, Erythema Edema: LLE: Trace, RLE: Trace Neurological: Yes: Alert, Oriented Labs: CBC, BMP 10/14/19 07:54 10/14/19 07:54 INR, PTT INR 1.60 (0.83-1.09) H 10/14/19 07:54 Problem List - Problems (1) Controlled diabetes mellitus with diabetic peripheral angiopathy without gangrene, without long-term current use of insulin Code(s): E11.51 - TYPE 2 DIABETES W DIABETIC PERIPHERAL ANGIOPATH W/O GANGRENE Qualifiers: Diabetes mellitus type: type 2 Qualified Code(s): E11.51 - Type 2 diabetes mellitus with diabetic peripheral angiopathy without gangrene (2) Asthma attack Code(s): J45.901 - UNSPECIFIED ASTHMA WITH (ACUTE) EXACERBATION Qualifiers: Asthma persistence: intermittent (3) Abdominal pain Code(s): R10.9 - UNSPECIFIED ABDOMINAL PAIN Qualifiers: Abdominal location: generalized Qualified Code(s): R10.84 - Generalized abdominal pain (4) Acute asthma exacerbation Code(s): J45.901 - UNSPECIFIED ASTHMA WITH (ACUTE) EXACERBATION Qualifiers: Asthma severity: moderate (5) Acute exacerbation of CHF (congestive heart failure) Code(s): I50.9 - HEART FAILURE, UNSPECIFIED (6) Acute on chronic diastolic (congestive) heart failure Code(s): I50.33 - ACUTE ON CHRONIC DIASTOLIC (CONGESTIVE) HEART FAILURE (7) Allergy to ampicillin Code(s): Z88.0 - ALLERGY STATUS TO PENICILLIN (8) Other specified hypothyroidism Code(s): E03.8 - OTHER SPECIFIED HYPOTHYROIDISM Assessment/Plan dm type 2,steroid resistant hypothyroid sp hyperthyroid treated copd severe asthmatic chf,afib ashd Laboratory Tests 10/11/19 10/12/19 10/14/19 12:30 05:30 07:54 Sodium 142 Potassium 4.2 Chloride 110 H Carbon Dioxide 28 Anion Gap 5 L BUN 18.5 H Creatinine 0.8 Est GFR (CKD-EPI)AfAm 81.84 POC Glucometer Random Glucose 192 H Hemoglobin A1c % 6.0 TSH 15.20 H 10/14/19 12:24 Sodium Potassium Chloride Carbon Dioxide Anion Gap BUN Creatinine Est GFR (CKD-EPI)AfAm POC Glucometer 225 Random Glucose Hemoglobin A1c % TSH plan: bgm as sugars improve of steroid synthroid 50mcg will need follow up labs tsh and free t4
== END 2019-10-15 19:30 | DRG 202 ==
LOC: JER 11:32 → JERBED 14:30 → J4S 22:47
PROVIDERS: ADMIT Family Medicine; ATTEND Family Medicine
PROC: 0HBRXZZ Excision of Toe Nail, External Approach (ICD-10-PCS; principal; 2019-10-15)
PROC: 0HBRXZZ Excision of Toe Nail, External Approach (ICD-10-PCS; 2019-10-15)
PROC: 0HBRXZZ Excision of Toe Nail, External Approach (ICD-10-PCS; 2019-10-15)
PROC: 0HBRXZZ Excision of Toe Nail, External Approach (ICD-10-PCS; 2019-10-15)
PROC: 0HBRXZZ Excision of Toe Nail, External Approach (ICD-10-PCS; 2019-10-15)
PROC: 0HBRXZZ Excision of Toe Nail, External Approach (ICD-10-PCS; 2019-10-15)
PROC: 0HBRXZZ Excision of Toe Nail, External Approach (ICD-10-PCS; 2019-10-15)
PROC: 0HBRXZZ Excision of Toe Nail, External Approach (ICD-10-PCS; 2019-10-15)
PROC: 0HBRXZZ Excision of Toe Nail, External Approach (ICD-10-PCS; 2019-10-15)
PROC: 0HBRXZZ Excision of Toe Nail, External Approach (ICD-10-PCS; 2019-10-15)
DX: J45.901 Unspecified asthma with (acute) exacerbation (principal); J44.1 Chronic obstructive pulmonary disease with (acute) exacerbation; I50.42 Chronic combined systolic (congestive) and diastolic (congestive) heart failure; I48.91 Unspecified atrial fibrillation; Z79.01 Long term (current) use of anticoagulants; Z95.2 Presence of prosthetic heart valve; E11.51 Type 2 diabetes mellitus with diabetic peripheral angiopathy without gangrene; E11.40 Type 2 diabetes mellitus with diabetic neuropathy, unspecified; F41.9 Anxiety disorder, unspecified; F03.90 Unspecified dementia, unspecified severity, without behavioral disturbance, psychotic disturbance, mood disturbance, and anxiety; K76.0 Fatty (change of) liver, not elsewhere classified; N63.0 Unspecified lump in unspecified breast; D64.9 Anemia, unspecified; E03.9 Hypothyroidism, unspecified; K21.9 Gastro-esophageal reflux disease without esophagitis; I25.10 Atherosclerotic heart disease of native coronary artery without angina pectoris; B35.1 Tinea unguium; L85.3 Xerosis cutis
CPT/HCPCS: 36415; 71045-TC-FY; 76641-TC-LT; 80048; 80053; 80061; 82550; 82553; 82962; 83036; 83721; 83735; 83880; 84100; 84443; 84484; 85025; 85027; 85610; 85730; 87804; 93005; 93010; 94640; 97162-GP; 99284-25

== ENCOUNTER 2021-05-02 18:37 | Inpatient (IN) | payer OTHER ==
[2021-05-02 20:35] LABS: VENOUS BASE EXCESS 4.8 mmol/L (-2-2); VENOUS PCO2 52.4 mmHg (38-52); VENOUS PH 7.394 (7.310-7.410)
[2021-05-02 20:40] LABS: BASO % 0.8 % (0-2.0); EOS % 0.1 % (0-4.5); LYMPH % 4.2 % (8-40); MCH 31.3 pg (25.7-33.7); MCHC 33.3 g/dl (32.0-36.0); MEAN PLT VOLUME 8.9 fl (7.5-11.1); MONO % 3.2 % (3.8-10.2); NEUT % 91.7 % (42.8-82.8); PLATELET COUNT 119 10^3/uL (134-434); RBC 4.78 M/mm3 (3.60-5.2); RDW 14.6 % (11.6-15.6)
[2021-05-02 20:48] LABS: PROTHROMBIN TIME (PATIENT) 63.8 SEC (9.7-13.0)
[2021-05-02 20:51] LABS: ACTIVATED PTT 36.9 SECONDS (25.2-36.5)
[2021-05-02 20:53] LABS: ALBUMIN 2.9 g/dl (3.4-5.0); BLOOD UREA NITROGEN 36.4 mg/dL (7-18); CALCIUM 8.4 mg/dL (8.5-10.1); MAGNESIUM 2.2 mg/dL (1.8-2.4)
[2021-05-02 20:57] LABS: CREATININE 1.2 mg/dL (0.55-1.3); PHOSPHOROUS 3.4 mg/dL (2.5-4.9)
[2021-05-02 20:58] LABS: BILIRUBIN,TOTAL 1.3 mg/dL (0.2-1); TOT PROT 5.8 g/dl (6.4-8.2)
[2021-05-02 21:00] LABS: INR 5.54 (0.83-1.09)
[2021-05-02] MEDS ORDERED: SODIUM CHLORIDE 0.9% 500 ML INFUS.BAG IV ONE (21:35)
[2021-05-02 21:48] LABS: ANISOCYTOSIS 0; MACROCYTOSIS 0; PLATELET ESTIMATE DECREASED
[2021-05-02 22:13] LABS: EPI CELLS 4 /uL (0-25.1); HYALINE CASTS 10 /uL (0-3.1); URINE APPEARANCE CLOUDY; URINE BACTERIA 829 /uL (0-1359); URINE BILIRUBIN NEGATIVE (NEGATIVE); URINE COLOR YELLOW; URINE GLUCOSE (UA) 2+ (NEGATIVE); URINE KETONE TRACE (NEGATIVE); URINE LEUK ESTERASE 2+ (NEGATIVE); URINE NITRITE NEGATIVE (NEGATIVE); URINE PROTEIN NEGATIVE (NEGATIVE); URINE WBC 615 /uL (0-25.8)
[2021-05-03 00:02] LABS: URINE RBC 61.3 /uL (0-23.9)
[2021-05-03] MEDS ORDERED: MEROPENEM 1 GM in DEXTROSE 5%-WATER 100 ML IVPB ONE (01:41)
[2021-05-03] MEDS ORDERED: ALBUTEROL SO4 0.083% IH SOL 2.5 MG/3 ML VIAL.NEB. NEB PRN (06:11)
[2021-05-03] MEDS: LEVOTHYROXINE NA 50 MCG TABLET (FP) PO SCH (06:36)
[2021-05-03] MEDS: ALBUTEROL SO4 2.5/IPRATROPIUM 0.5 INH SOL 3 ML VIAL.NEB. NEB SCH ×4 (08:35→20:11)
[2021-05-03] MEDS: predniSONE 20 MG TABLET (UD) PO SCH (10:15)
[2021-05-03] MEDS: ESCITALOPRAM OXALATE 10 MG TABLET PO SCH (10:15)
[2021-05-03] MEDS: BUDESONIDE/FORMETEROL FUMARATE 160/4.5 mcg INHALER IH SCH ×2 (11:09→21:51)
[2021-05-03 16:40] LABS: BASO % 0.1 % (0-2.0); EOS % 0.2 % (0-4.5); HEMATOCRIT 47.3 % (32.4-45.2); HEMOGLOBIN 15.7 GM/dL (10.7-15.3); LYMPH % 5.6 % (8-40); MCH 31.3 pg (25.7-33.7); MCHC 33.2 g/dl (32.0-36.0); MEAN CELL VOLUME 94.2 fl (80-96); MEAN PLT VOLUME 9.6 fl (7.5-11.1); MONO % 4.4 % (3.8-10.2); NEUT % 89.7 % (42.8-82.8); PLATELET COUNT 113 10^3/uL (134-434); RBC 5.02 M/mm3 (3.60-5.2); WHITE BLOOD COUNT 18.7 K/mm3 (4.0-10.0)
[2021-05-03 16:49] LABS: PROTHROMBIN TIME (PATIENT) 56.3 SEC (9.7-13.0)
[2021-05-03 17:26] LABS: ANISOCYTOSIS 1+; MACROCYTOSIS 0; PLATELET ESTIMATE DECREASED
[2021-05-03 17:34] LABS: INR 4.79 (0.83-1.09)
[2021-05-03 17:50] LABS: CALCIUM 8.4 mg/dL (8.5-10.1)
[2021-05-03 17:51] LABS: ALBUMIN 2.9 g/dl (3.4-5.0); BLOOD UREA NITROGEN 40.1 mg/dL (7-18)
[2021-05-03 17:54] LABS: BILIRUBIN,TOTAL 1.5 mg/dL (0.2-1); CREATININE 1.1 mg/dL (0.55-1.3); TOT PROT 5.9 g/dl (6.4-8.2)
[2021-05-03 17:55] LABS: N-TERMINAL BNP 156.5 pg/ml (5-450)
[2021-05-03] MEDS ORDERED: INSULIN (NOVOLOG) ASPART 100 UNITS/ML 10ML VIAL SQ ONE (18:05)
[2021-05-03] MEDS: MONTELUKAST NA 10 MG TABLET PO SCH (21:50)
[2021-05-03] MEDS: ATORVASTATIN CA 10 MG TABLET (FP) PO SCH (21:50)
[2021-05-03] MEDS ORDERED: LOSARTAN POTASSIUM 25 MG TABLET PO SCH (22:00)
[2021-05-03] MEDS ORDERED: INSULIN SLIDING SCALE (NOVOLOG) 1 VIAL SQ SCH (22:00)
[2021-05-04] MEDS ORDERED: INSULIN (LEVEMIR) 100 UNITS/ML UNITS SQ ONE ×2 (01:00→06:09)
[2021-05-04] MEDS: INSULIN SLIDING SCALE (NOVOLOG) 1 VIAL SQ SCH ×4 (06:19→21:10)
[2021-05-04] MEDS: LEVOTHYROXINE NA 50 MCG TABLET (FP) PO SCH (06:20)
[2021-05-04] MEDS: INSULIN (LEVEMIR) 100 UNITS/ML UNITS SQ SCH ×2 (06:20→21:05)
[2021-05-04] MEDS: ALBUTEROL SO4 2.5/IPRATROPIUM 0.5 INH SOL 3 ML VIAL.NEB. NEB SCH ×4 (07:20→20:35)
[2021-05-04 09:41] LABS: N-TERMINAL BNP 191.9 pg/ml (5-450)
[2021-05-04] MEDS: predniSONE 20 MG TABLET (UD) PO SCH (09:48)
[2021-05-04] MEDS: ESCITALOPRAM OXALATE 10 MG TABLET PO SCH (09:48)
[2021-05-04] MEDS: BUDESONIDE/FORMETEROL FUMARATE 160/4.5 mcg INHALER IH SCH ×2 (10:49→21:06)
[2021-05-04 11:47] LABS: BASO % 0.2 % (0-2.0); EOS % 0.5 % (0-4.5); HEMATOCRIT 43.1 % (32.4-45.2); HEMOGLOBIN 14.5 GM/dL (10.7-15.3); LYMPH % 8.3 % (8-40); MCH 31.7 pg (25.7-33.7); MCHC 33.7 g/dl (32.0-36.0); MEAN CELL VOLUME 93.9 fl (80-96); MEAN PLT VOLUME 9.2 fl (7.5-11.1); MONO % 6.3 % (3.8-10.2); NEUT % 84.7 % (42.8-82.8); PLATELET COUNT 116 10^3/uL (134-434); RBC 4.59 M/mm3 (3.60-5.2); RDW 14.8 % (11.6-15.6); WHITE BLOOD COUNT 19.9 K/mm3 (4.0-10.0)
[2021-05-04 12:00] LABS: PROTHROMBIN TIME (PATIENT) 60.4 SEC (9.7-13.0)
[2021-05-04 12:12] LABS: CALCIUM 8.4 mg/dL (8.5-10.1)
[2021-05-04 12:14] LABS: ALBUMIN 2.7 g/dl (3.4-5.0); BLOOD UREA NITROGEN 48.1 mg/dL (7-18)
[2021-05-04 12:17] LABS: BILIRUBIN,TOTAL 1.2 mg/dL (0.2-1); CREATININE 1.9 mg/dL (0.55-1.3)
[2021-05-04 12:18] LABS: TOT PROT 5.3 g/dl (6.4-8.2)
[2021-05-04 12:19] LABS: INR 5.24 (0.83-1.09)
[2021-05-04 12:20] LABS: ANISOCYTOSIS 0; HELMET CELLS 0; HOWELL-JOLLY BODIES 0; MACROCYTOSIS 0; OVALOCYTE 0; PLATELET ESTIMATE DECREASED; ROULEAU 0; SICKELED CELLS 0; TARGET CELLS 0; TEAR DROP CELLS 0; TOXIC GRANULATION 0
[2021-05-04] MEDS: MONTELUKAST NA 10 MG TABLET PO SCH (21:05)
[2021-05-04] MEDS: ATORVASTATIN CA 10 MG TABLET (FP) PO SCH (21:05)
[2021-05-05] MEDS: LEVOTHYROXINE NA 50 MCG TABLET (FP) PO SCH (06:17)
[2021-05-05] MEDS: INSULIN SLIDING SCALE (NOVOLOG) 1 VIAL SQ SCH ×4 (06:31→22:13)
[2021-05-05] MEDS: INSULIN (LEVEMIR) 100 UNITS/ML UNITS SQ SCH ×3 (06:31→22:12)
[2021-05-05] MEDS: ALBUTEROL SO4 2.5/IPRATROPIUM 0.5 INH SOL 3 ML VIAL.NEB. NEB SCH ×4 (07:20→20:44)
[2021-05-05] MEDS ORDERED: PT OWN MED DRAWER 7, Y5N ONE (10:05)
[2021-05-05] MEDS: ESCITALOPRAM OXALATE 10 MG TABLET PO SCH (10:42)
[2021-05-05] MEDS: predniSONE 20 MG TABLET (UD) PO SCH (10:42)
[2021-05-05] MEDS: BUDESONIDE/FORMETEROL FUMARATE 160/4.5 mcg INHALER IH SCH ×2 (10:42→22:13)
[2021-05-05 13:54] LABS: BASO % 0.4 % (0-2.0); EOS % 0.7 % (0-4.5); HEMATOCRIT 43.2 % (32.4-45.2); HEMOGLOBIN 14.7 GM/dL (10.7-15.3); LYMPH % 5.9 % (8-40); MCH 31.7 pg (25.7-33.7); MEAN CELL VOLUME 93.3 fl (80-96); MEAN PLT VOLUME 9.4 fl (7.5-11.1); MONO % 5.2 % (3.8-10.2); NEUT % 87.8 % (42.8-82.8); PLATELET COUNT 112 10^3/uL (134-434); RBC 4.63 M/mm3 (3.60-5.2); RDW 14.7 % (11.6-15.6); WHITE BLOOD COUNT 16.9 K/mm3 (4.0-10.0)
[2021-05-05 14:01] LABS: PROTHROMBIN TIME (PATIENT) 58.6 SEC (9.7-13.0)
[2021-05-05 14:15] LABS: INR 4.9 (0.83-1.09)
[2021-05-05 14:25] LABS: CALCIUM 8.1 mg/dL (8.5-10.1)
[2021-05-05 14:26] LABS: ALBUMIN 2.5 g/dl (3.4-5.0); BLOOD UREA NITROGEN 54.7 mg/dL (7-18)
[2021-05-05 14:29] LABS: CREATININE 2.7 mg/dL (0.55-1.3)
[2021-05-05 14:30] LABS: TOT PROT 5.1 g/dl (6.4-8.2)
[2021-05-05 14:31] LABS: BILIRUBIN,TOTAL 1.1 mg/dL (0.2-1)
[2021-05-05 14:43] LABS: ANISOCYTOSIS 0; HELMET CELLS 0; HOWELL-JOLLY BODIES 0; MACROCYTOSIS 0; OVALOCYTE 0; PLATELET ESTIMATE DECREASED; ROULEAU 0; SICKELED CELLS 0; TARGET CELLS 0; TEAR DROP CELLS 0; TOXIC GRANULATION 0
[2021-05-05] MEDS: ATORVASTATIN CA 10 MG TABLET (FP) PO SCH (21:54)
[2021-05-05] MEDS: MONTELUKAST NA 10 MG TABLET PO SCH (21:54)
[2021-05-06] MEDS ORDERED: DEXTROSE 50%-WATER 25 GM/50 ML DISP.SYRIN ONE (06:43)
[2021-05-06] MEDS: INSULIN SLIDING SCALE (NOVOLOG) 1 VIAL SQ SCH ×4 (06:54→21:13)
[2021-05-06] MEDS: NYSTATIN 500,000 UNITS/5 ML SUSPENSION PO SCH ×4 (06:54→23:45)
[2021-05-06] MEDS: LEVOTHYROXINE NA 50 MCG TABLET (FP) PO SCH (06:54)
[2021-05-06] MEDS: INSULIN (LEVEMIR) 100 UNITS/ML UNITS SQ SCH ×2 (06:54→21:12)
[2021-05-06] MEDS ORDERED: DEXTROSE 50%-WATER - 25 GM/50 ML VIAL IVPUSH ONE (07:28)
[2021-05-06] MEDS: ALBUTEROL SO4 2.5/IPRATROPIUM 0.5 INH SOL 3 ML VIAL.NEB. NEB SCH ×4 (07:58→20:01)
[2021-05-06 08:21] LABS: BASO % 0.2 % (0-2.0); EOS % 0.4 % (0-4.5); HEMATOCRIT 42.6 % (32.4-45.2); HEMOGLOBIN 14.1 GM/dL (10.7-15.3); LYMPH % 7.3 % (8-40); MCH 31.1 pg (25.7-33.7); MCHC 33.1 g/dl (32.0-36.0); MEAN PLT VOLUME 9.6 fl (7.5-11.1); MONO % 7.7 % (3.8-10.2); NEUT % 84.4 % (42.8-82.8); PLATELET COUNT 84 10^3/uL (134-434); RBC 4.53 M/mm3 (3.60-5.2); RDW 14.6 % (11.6-15.6); WHITE BLOOD COUNT 19.1 K/mm3 (4.0-10.0)
[2021-05-06 08:34] LABS: CALCIUM 8.1 mg/dL (8.5-10.1)
[2021-05-06 08:35] LABS: ALBUMIN 2.4 g/dl (3.4-5.0); BLOOD UREA NITROGEN 48.4 mg/dL (7-18)
[2021-05-06 08:38] LABS: CREATININE 2.2 mg/dL (0.55-1.3)
[2021-05-06 08:39] LABS: BILIRUBIN,TOTAL 1.3 mg/dL (0.2-1)
[2021-05-06 08:40] LABS: TOT PROT 5.2 g/dl (6.4-8.2)
[2021-05-06] MEDS: BUDESONIDE/FORMETEROL FUMARATE 160/4.5 mcg INHALER IH SCH ×2 (10:36→21:23)
[2021-05-06] MEDS: predniSONE 20 MG TABLET (UD) PO SCH (10:36)
[2021-05-06] MEDS: ESCITALOPRAM OXALATE 10 MG TABLET PO SCH (10:36)
[2021-05-06 11:00] LABS: ANISOCYTOSIS 0; HELMET CELLS 0; HOWELL-JOLLY BODIES 0; MACROCYTOSIS 0; OVALOCYTE 0; PLATELET ESTIMATE DECREASED; ROULEAU 0; SICKELED CELLS 0; TARGET CELLS 0; TEAR DROP CELLS 0; TOXIC GRANULATION 0
[2021-05-06] MEDS: ATORVASTATIN CA 10 MG TABLET (FP) PO SCH (21:12)
[2021-05-06] MEDS: MONTELUKAST NA 10 MG TABLET PO SCH (21:12)
[2021-05-07 04:09] LABS: BASO % 0.3 % (0-2.0); EOS % 0.4 % (0-4.5); HEMATOCRIT 33.2 % (32.4-45.2); LYMPH % 10.9 % (8-40); MEAN PLT VOLUME 9.2 fl (7.5-11.1); MONO % 9.5 % (3.8-10.2); NEUT % 78.9 % (42.8-82.8); PLATELET COUNT 106 10^3/uL (134-434); RBC 3.53 M/mm3 (3.60-5.2); RDW 14.6 % (11.6-15.6); WHITE BLOOD COUNT 22.6 K/mm3 (4.0-10.0)
[2021-05-07 04:19] LABS: INR 2.64 (0.83-1.09); PROTHROMBIN TIME (PATIENT) 31.1 SEC (9.7-13.0)
[2021-05-07] MEDS ORDERED: SODIUM CHLORIDE 0.9% 500 ML INFUS.BAG IV ONE (04:19)
[2021-05-07 04:22] LABS: ACTIVATED PTT 33.8 SECONDS (25.2-36.5)
[2021-05-07 04:26] LABS: CALCIUM 7.6 mg/dL (8.5-10.1)
[2021-05-07 04:27] LABS: BLOOD UREA NITROGEN 39.7 mg/dL (7-18); MAGNESIUM 2.2 mg/dL (1.8-2.4)
[2021-05-07 04:30] LABS: CREATININE 1.5 mg/dL (0.55-1.3); PHOSPHOROUS 3.5 mg/dL (2.5-4.9)
[2021-05-07 04:31] LABS: BILIRUBIN,TOTAL 0.7 mg/dL (0.2-1); TOT PROT 4.2 g/dl (6.4-8.2)
[2021-05-07 05:19] LABS: ANISOCYTOSIS 1+; MACROCYTOSIS 0; PLATELET ESTIMATE NORMAL; ROULEAU 1+
[2021-05-07] MEDS: NYSTATIN 500,000 UNITS/5 ML SUSPENSION PO SCH ×4 (05:39→23:55)
[2021-05-07] MEDS: INSULIN SLIDING SCALE (NOVOLOG) 1 VIAL SQ SCH ×4 (06:46→21:30)
[2021-05-07] MEDS: INSULIN (LEVEMIR) 100 UNITS/ML UNITS SQ SCH ×2 (06:48→21:30)
[2021-05-07] MEDS: ALBUTEROL SO4 2.5/IPRATROPIUM 0.5 INH SOL 3 ML VIAL.NEB. NEB SCH ×4 (08:00→20:22)
[2021-05-07] MEDS: PANTOPRAZOLE SODIUM 40 MG VIAL IVPUSH SCH ×2 (10:25→21:29)
[2021-05-07] MEDS: predniSONE 10 MG TABLET (UD) PO SCH (10:25)
[2021-05-07] MEDS: ESCITALOPRAM OXALATE 10 MG TABLET PO SCH (10:26)
[2021-05-07] MEDS: BUDESONIDE/FORMETEROL FUMARATE 160/4.5 mcg INHALER IH SCH ×2 (10:26→21:33)
[2021-05-07 11:44] LABS: BASO % 0.2 % (0-2.0); EOS % 0.9 % (0-4.5); HEMATOCRIT 29.7 % (32.4-45.2); LYMPH % 10.2 % (8-40); MCH 31.8 pg (25.7-33.7); MCHC 33.8 g/dl (32.0-36.0); MEAN CELL VOLUME 94.1 fl (80-96); MEAN PLT VOLUME 9.3 fl (7.5-11.1); MONO % 8.7 % (3.8-10.2); PLATELET COUNT 100 10^3/uL (134-434); RBC 3.15 M/mm3 (3.60-5.2); RDW 14.8 % (11.6-15.6); WHITE BLOOD COUNT 21.4 K/mm3 (4.0-10.0)
[2021-05-07 11:48] LABS: INR 1.67 (0.83-1.09); PROTHROMBIN TIME (PATIENT) 20.2 SEC (9.7-13.0)
[2021-05-07 12:09] LABS: CALCIUM 7.7 mg/dL (8.5-10.1)
[2021-05-07 12:10] LABS: ALBUMIN 2.3 g/dl (3.4-5.0); BLOOD UREA NITROGEN 35.9 mg/dL (7-18)
[2021-05-07 12:13] LABS: CREATININE 1.1 mg/dL (0.55-1.3)
[2021-05-07 12:14] LABS: BILIRUBIN,TOTAL 0.9 mg/dL (0.2-1); TOT PROT 4.7 g/dl (6.4-8.2)
[2021-05-07 13:12] LABS: ANISOCYTOSIS 0; MACROCYTOSIS 0; PLATELET ESTIMATE DECREASED
[2021-05-07 17:12] LABS: BASO % 0.2 % (0-2.0); EOS % 0.2 % (0-4.5); HEMATOCRIT 29.3 % (32.4-45.2); HEMOGLOBIN 9.7 GM/dL (10.7-15.3); LYMPH % 8.2 % (8-40); MCH 31.1 pg (25.7-33.7); MEAN CELL VOLUME 94.2 fl (80-96); MEAN PLT VOLUME 9.3 fl (7.5-11.1); MONO % 5.1 % (3.8-10.2); NEUT % 86.3 % (42.8-82.8); PLATELET COUNT 106 10^3/uL (134-434); RBC 3.11 M/mm3 (3.60-5.2); RDW 14.5 % (11.6-15.6); WHITE BLOOD COUNT 22.3 K/mm3 (4.0-10.0)
[2021-05-07] MEDS: ATORVASTATIN CA 10 MG TABLET (FP) PO SCH (21:32)
[2021-05-07] MEDS: MONTELUKAST NA 10 MG TABLET PO SCH (21:32)
[2021-05-08] MEDS: NYSTATIN 500,000 UNITS/5 ML SUSPENSION PO SCH ×4 (05:56→23:04)
[2021-05-08] MEDS: INSULIN (LEVEMIR) 100 UNITS/ML UNITS SQ SCH ×2 (06:25→21:36)
[2021-05-08] MEDS: INSULIN SLIDING SCALE (NOVOLOG) 1 VIAL SQ SCH ×4 (06:25→21:36)
[2021-05-08] MEDS ORDERED: PT OWN MED DRAWER 7, Y5N ONE (09:19)
[2021-05-08] MEDS: PANTOPRAZOLE SODIUM 40 MG VIAL IVPUSH SCH ×2 (09:54→21:31)
[2021-05-08] MEDS: predniSONE 10 MG TABLET (UD) PO SCH (09:55)
[2021-05-08] MEDS: ESCITALOPRAM OXALATE 10 MG TABLET PO SCH (09:55)
[2021-05-08] MEDS: BUDESONIDE/FORMETEROL FUMARATE 160/4.5 mcg INHALER IH SCH ×2 (09:56→21:57)
[2021-05-08] MEDS: METHIMAZOLE 5 MG TABLET PO SCH ×2 (10:45→11:39)
[2021-05-08 11:49] LABS: BASO % 0.1 % (0-2.0); EOS % 0.8 % (0-4.5); HEMATOCRIT 29.2 % (32.4-45.2); HEMOGLOBIN 9.7 GM/dL (10.7-15.3); LYMPH % 12.5 % (8-40); MCH 31.6 pg (25.7-33.7); MCHC 33.2 g/dl (32.0-36.0); MEAN CELL VOLUME 95.4 fl (80-96); MEAN PLT VOLUME 9.1 fl (7.5-11.1); NEUT % 78.6 % (42.8-82.8); PLATELET COUNT 112 10^3/uL (134-434); RBC 3.06 M/mm3 (3.60-5.2); RDW 14.6 % (11.6-15.6); WHITE BLOOD COUNT 22.8 K/mm3 (4.0-10.0)
[2021-05-08 11:54] LABS: INR 1.28 (0.83-1.09); PROTHROMBIN TIME (PATIENT) 15.4 SEC (9.7-13.0)
[2021-05-08 12:20] LABS: ALBUMIN 2.3 g/dl (3.4-5.0); CALCIUM 7.9 mg/dL (8.5-10.1)
[2021-05-08 12:21] LABS: BLOOD UREA NITROGEN 23.8 mg/dL (7-18)
[2021-05-08 12:24] LABS: CREATININE 0.9 mg/dL (0.55-1.3)
[2021-05-08 12:25] LABS: BILIRUBIN,TOTAL 0.7 mg/dL (0.2-1); TOT PROT 4.7 g/dl (6.4-8.2)
[2021-05-08 12:27] LABS: ANISOCYTOSIS 0; MACROCYTOSIS 0; PLATELET ESTIMATE DECREASED
[2021-05-08 13:14] VITALS: BMI 31.0
[2021-05-08] MEDS: ATORVASTATIN CA 10 MG TABLET (FP) PO SCH (21:30)
[2021-05-08] MEDS: MONTELUKAST NA 10 MG TABLET PO SCH (21:31)
[2021-05-09] MEDS: NYSTATIN 500,000 UNITS/5 ML SUSPENSION PO SCH ×3 (05:55→18:59)
[2021-05-09] MEDS: INSULIN (LEVEMIR) 100 UNITS/ML UNITS SQ SCH (06:11)
[2021-05-09] MEDS: INSULIN SLIDING SCALE (NOVOLOG) 1 VIAL SQ SCH ×4 (06:12→21:50)
[2021-05-09] MEDS ORDERED: DEXTROSE 50%-WATER - 25 GM/50 ML VIAL IVPUSH ONE (06:36)
[2021-05-09] MEDS ORDERED: DEXTROSE 50%-WATER 25 GM/50 ML DISP.SYRIN ONE (06:37)
[2021-05-09 08:05] LABS: CALCIUM 7.9 mg/dL (8.5-10.1)
[2021-05-09 08:06] LABS: ALBUMIN 2.3 g/dl (3.4-5.0); BLOOD UREA NITROGEN 17.8 mg/dL (7-18)
[2021-05-09 08:09] LABS: CREATININE 0.7 mg/dL (0.55-1.3)
[2021-05-09 08:10] LABS: BILIRUBIN,TOTAL 0.7 mg/dL (0.2-1); TOT PROT 4.7 g/dl (6.4-8.2)
[2021-05-09] MEDS ORDERED: PT OWN MED DRAWER 7, Y5N ONE (10:01)
[2021-05-09] MEDS: ESCITALOPRAM OXALATE 10 MG TABLET PO SCH (11:02)
[2021-05-09] MEDS: PANTOPRAZOLE SODIUM 40 MG VIAL IVPUSH SCH ×2 (11:02→21:48)
[2021-05-09] MEDS: predniSONE 10 MG TABLET (UD) PO SCH (11:02)
[2021-05-09] MEDS: METHIMAZOLE 5 MG TABLET PO SCH (11:02)
[2021-05-09] MEDS: BUDESONIDE/FORMETEROL FUMARATE 160/4.5 mcg INHALER IH SCH ×2 (11:02→21:51)
[2021-05-09] MEDS ORDERED: INSULIN (NOVOLOG) ASPART 100 UNITS/ML 10ML VIAL ONE (18:55)
[2021-05-09] MEDS: ATORVASTATIN CA 10 MG TABLET (FP) PO SCH (21:47)
[2021-05-09] MEDS: MONTELUKAST NA 10 MG TABLET PO SCH (21:48)
[2021-05-10] MEDS: NYSTATIN 500,000 UNITS/5 ML SUSPENSION PO SCH ×5 (00:47→22:00)
[2021-05-10] MEDS: INSULIN (LEVEMIR) 100 UNITS/ML UNITS SQ SCH (06:43)
[2021-05-10] MEDS: INSULIN SLIDING SCALE (NOVOLOG) 1 VIAL SQ SCH ×4 (06:43→22:42)
[2021-05-10] MEDS ORDERED: PT OWN MED DRAWER 7, Y5N ONE (09:38)
[2021-05-10] MEDS ORDERED: ENOXAPARIN NA (PORCINE) 80 MG/0.8 ML DISP.SYRIN SQ SCH (10:00)
[2021-05-10] MEDS: ESCITALOPRAM OXALATE 10 MG TABLET PO SCH (10:02)
[2021-05-10] MEDS: BUDESONIDE/FORMETEROL FUMARATE 160/4.5 mcg INHALER IH SCH ×2 (10:02→21:40)
[2021-05-10] MEDS: predniSONE 10 MG TABLET (UD) PO SCH (10:02)
[2021-05-10] MEDS: METHIMAZOLE 5 MG TABLET PO SCH (10:03)
[2021-05-10 11:16] LABS: BASO % 0.4 % (0-2.0); EOS % 1.1 % (0-4.5); HEMATOCRIT 24.6 % (32.4-45.2); HEMOGLOBIN 8.1 GM/dL (10.7-15.3); LYMPH % 15.9 % (8-40); MCH 31.3 pg (25.7-33.7); MCHC 33.2 g/dl (32.0-36.0); MEAN CELL VOLUME 94.3 fl (80-96); MEAN PLT VOLUME 8.1 fl (7.5-11.1); MONO % 8.4 % (3.8-10.2); NEUT % 74.2 % (42.8-82.8); PLATELET COUNT 124 10^3/uL (134-434); RDW 14.1 % (11.6-15.6); WHITE BLOOD COUNT 15.2 K/mm3 (4.0-10.0)
[2021-05-10 11:35] LABS: ALBUMIN 2.4 g/dl (3.4-5.0); BLOOD UREA NITROGEN 11.8 mg/dL (7-18); CALCIUM 7.8 mg/dL (8.5-10.1)
[2021-05-10 11:38] LABS: CREATININE 0.8 mg/dL (0.55-1.3)
[2021-05-10 11:40] LABS: BILIRUBIN,TOTAL 0.7 mg/dL (0.2-1); TOT PROT 4.9 g/dl (6.4-8.2)
[2021-05-10] MEDS ORDERED: IRON SUCROSE INJECTION 200 MG in SODIUM CHLORIDE 90 ML IVPB ONE (11:42)
[2021-05-10 14:37] LABS: ANISOCYTOSIS 1+; MACROCYTOSIS 0; PLATELET ESTIMATE DECREASED
[2021-05-10 17:28] LABS: HEMATOCRIT 23.7 % (32.4-45.2); MCH 31.6 pg (25.7-33.7); MCHC 33.9 g/dl (32.0-36.0); MEAN CELL VOLUME 93.2 fl (80-96); MEAN PLT VOLUME 8.8 fl (7.5-11.1); PLATELET COUNT 114 10^3/uL (134-434); RBC 2.54 M/mm3 (3.60-5.2); RDW 13.9 % (11.6-15.6); WHITE BLOOD COUNT 15.6 K/mm3 (4.0-10.0)
[2021-05-10] MEDS: ATORVASTATIN CA 10 MG TABLET (FP) PO SCH (21:38)
[2021-05-10] MEDS: MONTELUKAST NA 10 MG TABLET PO SCH (21:38)
[2021-05-11] MEDS: NYSTATIN 500,000 UNITS/5 ML SUSPENSION PO SCH ×3 (06:43→18:42)
[2021-05-11] MEDS: INSULIN SLIDING SCALE (NOVOLOG) 1 VIAL SQ SCH ×4 (07:03→22:24)
[2021-05-11] MEDS: INSULIN (LEVEMIR) 100 UNITS/ML UNITS SQ SCH (07:03)
[2021-05-11] MEDS ORDERED: FUROSEMIDE 40 MG/4 ML INJECTABLE VIAL IVPUSH ONE (07:11)
[2021-05-11 09:23] LABS: BASO % 0.4 % (0-2.0); EOS % 1.1 % (0-4.5); HEMOGLOBIN 8.2 GM/dL (10.7-15.3); LYMPH % 13.8 % (8-40); MCH 32.7 pg (25.7-33.7); MEAN CELL VOLUME 96.1 fl (80-96); NEUT % 75.7 % (42.8-82.8); PLATELET COUNT 159 10^3/uL (134-434); RDW 14.1 % (11.6-15.6); WHITE BLOOD COUNT 15.1 K/mm3 (4.0-10.0)
[2021-05-11] MEDS ORDERED: PT OWN MED DRAWER 7, Y5N ONE (09:52)
[2021-05-11] MEDS: METHIMAZOLE 5 MG TABLET PO SCH (10:00)
[2021-05-11] MEDS: predniSONE 10 MG TABLET (UD) PO SCH (10:00)
[2021-05-11] MEDS: ESCITALOPRAM OXALATE 10 MG TABLET PO SCH (10:00)
[2021-05-11] MEDS: BUDESONIDE/FORMETEROL FUMARATE 160/4.5 mcg INHALER IH SCH ×2 (10:01→21:52)
[2021-05-11 10:26] LABS: ANISOCYTOSIS 1+; MACROCYTOSIS 0; PLATELET ESTIMATE DECREASED
[2021-05-11] MEDS ORDERED: FUROSEMIDE 40 MG/4 ML INJECTABLE VIAL ONE (18:49)
[2021-05-11] MEDS: MONTELUKAST NA 10 MG TABLET PO SCH (21:50)
[2021-05-11] MEDS: ATORVASTATIN CA 10 MG TABLET (FP) PO SCH (21:50)
[2021-05-12] MEDS: NYSTATIN 500,000 UNITS/5 ML SUSPENSION PO SCH ×5 (06:24→17:30)
[2021-05-12] MEDS: INSULIN SLIDING SCALE (NOVOLOG) 1 VIAL SQ SCH ×3 (06:28→16:50)
[2021-05-12] MEDS: INSULIN (LEVEMIR) 100 UNITS/ML UNITS SQ SCH (06:29)
[2021-05-12] MEDS ORDERED: PT OWN MED DRAWER 7, Y5N ONE ×2 (09:50→12:05)
[2021-05-12] MEDS: BUDESONIDE/FORMETEROL FUMARATE 160/4.5 mcg INHALER IH SCH (10:14)
[2021-05-12] MEDS: predniSONE 10 MG TABLET (UD) PO SCH (10:14)
[2021-05-12] MEDS: ESCITALOPRAM OXALATE 10 MG TABLET PO SCH (10:14)
[2021-05-12] MEDS: METHIMAZOLE 5 MG TABLET PO SCH (10:14)
[2021-05-12 16:13] LABS: ALBUMIN 2.3 g/dl (3.4-5.0); BLOOD UREA NITROGEN 11.8 mg/dL (7-18); CALCIUM 7.7 mg/dL (8.5-10.1)
[2021-05-12 16:16] LABS: CREATININE 0.9 mg/dL (0.55-1.3)
[2021-05-12 16:17] LABS: BILIRUBIN,TOTAL 0.9 mg/dL (0.2-1)
[2021-05-12 16:18] LABS: TOT PROT 5.2 g/dl (6.4-8.2)
[2021-05-12] MEDS: MONTELUKAST NA 10 MG TABLET PO SCH (22:07)
[2021-05-12] MEDS: ATORVASTATIN CA 10 MG TABLET (FP) PO SCH (22:07)
[2021-05-13] MEDS: NYSTATIN 500,000 UNITS/5 ML SUSPENSION PO SCH ×3 (06:26→17:06)
[2021-05-13] MEDS: BUDESONIDE/FORMETEROL FUMARATE 160/4.5 mcg INHALER IH SCH ×3 (06:26→22:45)
[2021-05-13] MEDS: INSULIN SLIDING SCALE (NOVOLOG) 1 VIAL SQ SCH ×5 (06:27→21:36)
[2021-05-13] MEDS: INSULIN (LEVEMIR) 100 UNITS/ML UNITS SQ SCH (07:15)
[2021-05-13] MEDS: predniSONE 10 MG TABLET (UD) PO SCH (10:01)
[2021-05-13] MEDS: ESCITALOPRAM OXALATE 10 MG TABLET PO SCH (10:01)
[2021-05-13] MEDS: METHIMAZOLE 10 MG TABLET PO SCH (10:01)
[2021-05-13] MEDS ORDERED: INSULIN (NOVOLOG) ASPART 100 UNITS/ML 10ML VIAL ONE (11:40)
[2021-05-13] MEDS ORDERED: INSULIN (LEVEMIR) 100 UNITS/ML UNITS SQ ONE (17:04)
[2021-05-13] MEDS: MONTELUKAST NA 10 MG TABLET PO SCH (21:30)
[2021-05-13] MEDS: ATORVASTATIN CA 10 MG TABLET (FP) PO SCH (21:30)
[2021-05-14] MEDS: NYSTATIN 500,000 UNITS/5 ML SUSPENSION PO SCH ×3 (00:30→11:52)
[2021-05-14] MEDS: INSULIN SLIDING SCALE (NOVOLOG) 1 VIAL SQ SCH ×2 (06:22→11:51)
[2021-05-14] MEDS: INSULIN (LEVEMIR) 100 UNITS/ML UNITS SQ SCH (06:45)
[2021-05-14 07:07] LABS: HEMATOCRIT 24.6 % (32.4-45.2); HEMOGLOBIN 8.5 GM/dL (10.7-15.3); MCH 32.6 pg (25.7-33.7); MCHC 34.4 g/dl (32.0-36.0); MEAN CELL VOLUME 94.6 fl (80-96); MEAN PLT VOLUME 7.7 fl (7.5-11.1); PLATELET COUNT 130 10^3/uL (134-434); RDW 14.9 % (11.6-15.6); WHITE BLOOD COUNT 12.1 K/mm3 (4.0-10.0)
[2021-05-14 07:30] LABS: CALCIUM 7.8 mg/dL (8.5-10.1)
[2021-05-14 07:31] LABS: BLOOD UREA NITROGEN 12.8 mg/dL (7-18)
[2021-05-14 07:34] LABS: CREATININE 0.6 mg/dL (0.55-1.3)
[2021-05-14] MEDS: ESCITALOPRAM OXALATE 10 MG TABLET PO SCH (09:48)
[2021-05-14] MEDS: METHIMAZOLE 10 MG TABLET PO SCH (09:48)
[2021-05-14] MEDS: predniSONE 10 MG TABLET (UD) PO SCH (09:48)
[2021-05-14] MEDS: BUDESONIDE/FORMETEROL FUMARATE 160/4.5 mcg INHALER IH SCH (09:49)
[2021-05-14 10:53] VITALS: BP 118/63; PULSE 83; TEMP 97.8
== END 2021-05-14 13:00 | DRG 71 ==
LOC: JER 18:37 → JERBED 20:30 → J4W 05-03 03:17
PROVIDERS: ADMIT Internal Medicine; ATTEND Family Medicine
PROC: 30233K1 Transfusion of Nonautologous Frozen Plasma into Peripheral Vein, Percutaneous Approach (ICD-10-PCS; principal; 2021-05-07)
DX: G93.41 Metabolic encephalopathy (principal); I48.21 Permanent atrial fibrillation; K92.2 Gastrointestinal hemorrhage, unspecified; I50.32 Chronic diastolic (congestive) heart failure; N17.9 Acute kidney failure, unspecified; R41.82 Altered mental status, unspecified; I11.0 Hypertensive heart disease with heart failure; F03.90 Unspecified dementia, unspecified severity, without behavioral disturbance, psychotic disturbance, mood disturbance, and anxiety; K21.9 Gastro-esophageal reflux disease without esophagitis; E05.90 Thyrotoxicosis, unspecified without thyrotoxic crisis or storm; J45.909 Unspecified asthma, uncomplicated; I25.10 Atherosclerotic heart disease of native coronary artery without angina pectoris; E78.5 Hyperlipidemia, unspecified; I34.0 Nonrheumatic mitral (valve) insufficiency; J44.9 Chronic obstructive pulmonary disease, unspecified; R79.1 Abnormal coagulation profile; D72.829 Elevated white blood cell count, unspecified; D64.9 Anemia, unspecified; R91.1 Solitary pulmonary nodule; S50.11XA Contusion of right forearm, initial encounter; E87.5 Hyperkalemia; F41.8 Other specified anxiety disorders; E06.9 Thyroiditis, unspecified; D69.6 Thrombocytopenia, unspecified; E66.9 Obesity, unspecified; K76.0 Fatty (change of) liver, not elsewhere classified; Z86.718 Personal history of other venous thrombosis and embolism; Z95.2 Presence of prosthetic heart valve; W18.30XA Fall on same level, unspecified, initial encounter; Y92.098 Other place in other non-institutional residence as the place of occurrence of the external cause; Z68.31 Body mass index [BMI] 31.0-31.9, adult
CPT/HCPCS: 36415; 36430; 70450-TC; 71045-TC-FY; 71250-TC; 72125-TC; 73090-TC-RT-FY; 74177-TC; 74230-TC-FY; 80048; 80053; 80061; 81003; 82010; 82550; 82553; 82728; 82803; 82962; 83540; 83550; 83605; 83615; 83721; 83735; 83880; 84100; 84439; 84443; 84484; 85025; 85027; 85045; 85610; 85730; 86850; 86900; 86901; 86922; 87040; 87086; 92611-GN; 93005; 93010; 94640; 97162-GP; 99285-25; C9803; J1756; P9017; P9058; U0003; U0005

== ENCOUNTER 2021-06-06 13:32 | Emergency (ER) | payer OTHER ==
[2021-06-06 14:06] VITALS: BMI 31.0
[2021-06-06] MEDS ORDERED: ACETAMINOPHEN 1000 MG/100 ML VIAL (NON FORMULARY) IVPB ONE (15:25)
[2021-06-06] MEDS ORDERED: LACTATED RINGERS SOLUTION 1000 ML INFUS.BAG IV ONE (16:30)
[2021-06-06] MEDS ORDERED: ACETAMINOPHEN INJECTION 100 ML IVPB ONE (16:33)
[2021-06-06 17:09] LABS: BASO % 0.4 % (0-2.0); EOS % 0.2 % (0-4.5); HEMATOCRIT 30.2 % (32.4-45.2); HEMOGLOBIN 9.8 GM/dL (10.7-15.3); LYMPH % 12.6 % (8-40); MCHC 32.6 g/dl (32.0-36.0); MEAN PLT VOLUME 7.4 fl (7.5-11.1); MONO % 9.3 % (3.8-10.2); NEUT % 77.5 % (42.8-82.8); PLATELET COUNT 584 10^3/uL (134-434); RBC 3.17 M/mm3 (3.60-5.2); RDW 17.2 % (11.6-15.6)
[2021-06-06 17:11] LABS: INR 1.41 (0.83-1.09); PROTHROMBIN TIME (PATIENT) 17.2 SEC (9.7-13.0)
[2021-06-06 17:13] LABS: ACTIVATED PTT 19.7 SECONDS (25.2-36.5)
[2021-06-06 17:31] LABS: ALBUMIN 2.3 g/dl (3.4-5.0)
[2021-06-06 17:32] LABS: BLOOD UREA NITROGEN 6.1 mg/dL (7-18)
[2021-06-06 17:35] LABS: CREATININE 0.5 mg/dL (0.55-1.3)
[2021-06-06 17:36] LABS: BILIRUBIN,TOTAL 1.3 mg/dL (0.2-1)
[2021-06-06 17:49] LABS: PLATELET ESTIMATE INCREASED
[2021-06-06 17:51] LABS: WHITE BLOOD COUNT 20.5 K/mm3 (4.0-10.0)
[2021-06-06 18:00] LABS: ANISOCYTOSIS 2+; MACROCYTOSIS 1+
[2021-06-06 19:23] LABS: EPI CELLS 10 /uL (0-25.1); HYALINE CASTS 5 /uL (0-3.1); URINE APPEARANCE CLOUDY; URINE BACTERIA >9,000 /uL (0-1359); URINE BILIRUBIN NEGATIVE (NEGATIVE); URINE COLOR YELLOW; URINE GLUCOSE (UA) NEGATIVE (NEGATIVE); URINE KETONE NEGATIVE (NEGATIVE); URINE LEUK ESTERASE 3+ (NEGATIVE); URINE NITRITE POSITIVE (NEGATIVE); URINE PROTEIN NEGATIVE (NEGATIVE); URINE RBC 34 /uL (0-23.9); URINE UROBILINOGEN 4.0 E.U/dl mg/dL (0.2-1.0); URINE WBC 382 /uL (0-25.8)
[2021-06-06] MEDS ORDERED: CEFTRIAXONE 1 GM in DEXTROSE 5%-WATER - 100 ML IVPB ONE (20:14)
[2021-06-06] MEDS ORDERED: ERTAPENEM SODIUM 1 GM in SODIUM CHLORIDE 50 ML IVPB ONE (20:17)
[2021-06-06] MEDS ORDERED: AZTREONAM 1 GM in DEXTROSE 5%-WATER - 50 ML IVPB ONE (21:03)
[2021-06-06] MEDS ORDERED: VANCOMYCIN 1 GM in D5W (PRE-DOCKED) 1,000 MG/250 ML IVPB ONE (21:07)
[2021-06-06] MEDS ORDERED: AZTREONAM 1 GM VIAL (RESTRICTED TO ID) ONE (22:25)
[2021-06-06] MEDS ORDERED: VANCOMYCIN 1 GRAM (PRE-DOCKED) 1,000 MG/250 ML BAG IVPB ONE (23:15)
[2021-06-07 00:52] VITALS: BP 117/72; PULSE 94
== END 2021-06-07 00:10 | disposition short-term general hospital (02) ==
LOC: JER 13:32
PROC: 3E033GC Introduction of Other Therapeutic Substance into Peripheral Vein, Percutaneous Approach (ICD-10-PCS; principal; 2021-06-06)
DX: N39.0 Urinary tract infection, site not specified (principal); J18.9 Pneumonia, unspecified organism; I48.91 Unspecified atrial fibrillation
CPT/HCPCS: 36415; 70450-TC; 70482-TC; 74150-TC; 80053; 81003; 82550; 83605; 83690; 84484; 85025; 85610; 85730; 87040; 87086; 87186; 93005; 93010; 99285-25; C9803; J0131; Q9967; U0003; U0005

== ENCOUNTER 2022-05-16 02:39 | Inpatient (IN) | payer OTHER ==
[2022-05-16 02:54] VITALS: BMI 33.3
[2022-05-16 04:39] LABS: BASO % 0.6 % (0-2.0); EOS % 4.2 % (0-4.5); HEMATOCRIT 32.5 % (32.4-45.2); HEMOGLOBIN 10.4 GM/dL (10.7-15.3); LYMPH % 20.6 % (8-40); MCH 27.9 pg (25.7-33.7); MEAN PLT VOLUME 8.1 fl (7.5-11.1); MONO % 17.2 % (3.8-10.2); NEUT % 57.4 % (42.8-82.8); PLATELET COUNT 178 10^3/uL (134-434); RBC 3.73 M/mm3 (3.60-5.2); RDW 19.2 % (11.6-15.6)
[2022-05-16 04:59] LABS: CHLORIDE 105 mmol/L (98-107); SODIUM 147 mmol/L (136-145)
[2022-05-16 05:01] LABS: CALCIUM 8.6 mg/dL (8.5-10.1)
[2022-05-16 05:02] LABS: ALBUMIN 2.9 g/dl (3.4-5.0); ANION GAP 6 MMOL/L (8-16); BLOOD UREA NITROGEN 6.9 mg/dL (7-18); CO2 36 mmol/L (21-32); GLUCOSE,RANDOM 92 mg/dL (74-106)
[2022-05-16 05:05] LABS: CREATININE 0.6 mg/dL (0.55-1.3); SGOT/AST 33 U/L (15-37); SGPT/ALT 9 U/L (13-61)
[2022-05-16 05:06] LABS: TOT PROT 6.4 g/dl (6.4-8.2)
[2022-05-16 05:08] LABS: ALK PHOS 191 U/L (45-117)
[2022-05-16 05:10] LABS: N-TERMINAL BNP 265.8 pg/ml (5-450)
[2022-05-16] MEDS ORDERED: FUROSEMIDE 40 MG/4 ML INJECTABLE VIAL IVPUSH ONE (05:17)
[2022-05-16] MEDS ORDERED: FUROSEMIDE 40 MG/4 ML INJECTABLE VIAL ONE ×2 (06:11→15:46)
[2022-05-16 11:20] LABS: INR 3.09 (0.83-1.09); PROTHROMBIN TIME (PATIENT) 35.9 SEC (9.7-13.0)
[2022-05-16] MEDS: ALBUTEROL SO4 2.5/IPRATROPIUM 0.5 INH SOL 3 ML VIAL.NEB. NEB SCH (15:40)
[2022-05-16] MEDS: methylPREDNISolone NA SUCC 40 MG/1 ML VIAL IVPUSH SCH ×2 (15:40→23:45)
[2022-05-16] MEDS: FUROSEMIDE 40 MG/4 ML INJECTABLE VIAL IVPUSH SCH (15:40)
[2022-05-16] MEDS ORDERED: ALBUTEROL SO4 2.5/IPRATROPIUM 0.5 INH SOL 3 ML VIAL.NEB. NEB ONE (15:45)
[2022-05-16] MEDS ORDERED: methylPREDNISolone NA SUCC 40 MG/1 ML VIAL ONE (15:46)
[2022-05-16] MEDS: INSULIN SLIDING SCALE (NOVOLOG) 1 VIAL SQ SCH (16:40)
[2022-05-16] MEDS: WARFARIN NA 2.5 MG TABLET PO SCH (23:45)
[2022-05-16] MEDS: ATORVASTATIN CA 10 MG TABLET (FP) PO SCH (23:45)
[2022-05-17] MEDS: NYSTATIN POWDER 100,000 UNITS/GM - 15 GM TOPICAL POWDER TP SCH ×2 (03:58→10:01)
[2022-05-17] MEDS ORDERED: WARFARIN NA 1 MG TABLET ONE ×2 (04:00→15:41)
[2022-05-17] MEDS ORDERED: methylPREDNISolone NA SUCC 40 MG/1 ML VIAL ONE ×2 (04:00→09:34)
[2022-05-17] MEDS ORDERED: ATORVASTATIN CA 10 MG TABLET (FP) ONE (04:00)
[2022-05-17] MEDS: INSULIN SLIDING SCALE (NOVOLOG) 1 VIAL SQ SCH ×5 (06:17→22:41)
[2022-05-17] MEDS: methylPREDNISolone NA SUCC 40 MG/1 ML VIAL IVPUSH SCH ×3 (06:17→09:00)
[2022-05-17] MEDS: INSULIN (LEVEMIR) 100 UNITS/ML UNITS SQ SCH ×2 (06:17→22:45)
[2022-05-17] MEDS: FUROSEMIDE 40 MG/4 ML INJECTABLE VIAL IVPUSH SCH ×2 (06:30→14:42)
[2022-05-17 08:14] LABS: BASO % 0.4 % (0-2.0); EOS % 0.1 % (0-4.5); HEMATOCRIT 34.6 % (32.4-45.2); LYMPH % 23.3 % (8-40); MCH 27.6 pg (25.7-33.7); MCHC 31.8 g/dl (32.0-36.0); MEAN CELL VOLUME 86.9 fl (80-96); MEAN PLT VOLUME 8.5 fl (7.5-11.1); MONO % 4.5 % (3.8-10.2); NEUT % 71.7 % (42.8-82.8); PLATELET COUNT 185 10^3/uL (134-434); RBC 3.98 M/mm3 (3.60-5.2); WHITE BLOOD COUNT 2.7 K/mm3 (4.0-10.0)
[2022-05-17 08:16] LABS: INR 3.19 (0.83-1.09); PROTHROMBIN TIME (PATIENT) 37.1 SEC (9.7-13.0)
[2022-05-17 08:29] LABS: CHLORIDE 100 mmol/L (98-107); SODIUM 142 mmol/L (136-145)
[2022-05-17 08:36] LABS: PHOSPHOROUS 2.6 mg/dL (2.5-4.9); SGPT/ALT 10 U/L (13-61)
[2022-05-17 08:37] LABS: BILIRUBIN,TOTAL 1.2 mg/dL (0.2-1); CREATININE 0.7 mg/dL (0.55-1.3); GLUCOSE,RANDOM 131 mg/dL (74-106); TOT PROT 6.8 g/dl (6.4-8.2)
[2022-05-17 08:38] LABS: ANION GAP 6 MMOL/L (8-16); CO2 36 mmol/L (21-32)
[2022-05-17 08:39] LABS: ALK PHOS 193 U/L (45-117)
[2022-05-17 08:41] LABS: CALCIUM 8.8 mg/dL (8.5-10.1); SGOT/AST 31 U/L (15-37)
[2022-05-17] MEDS: ALBUTEROL SO4 2.5/IPRATROPIUM 0.5 INH SOL 3 ML VIAL.NEB. NEB SCH ×4 (09:59→21:00)
[2022-05-17] MEDS: ESCITALOPRAM OXALATE 10 MG TABLET PO SCH (10:00)
[2022-05-17] MEDS ORDERED: ALBUTEROL SO4 2.5/IPRATROPIUM 0.5 INH SOL 3 ML VIAL.NEB. NEB ONE ×2 (10:03→15:41)
[2022-05-17] MEDS ORDERED: ESCITALOPRAM OXALATE 10 MG TABLET ONE (10:04)
[2022-05-17] MEDS ORDERED: FUROSEMIDE 40 MG/4 ML INJECTABLE VIAL ONE (14:44)
[2022-05-17] MEDS ORDERED: MONTELUKAST NA 10 MG TABLET ONE (22:05)
[2022-05-17] MEDS ORDERED: MIRTAZAPINE 15 MG TABLET (FP) ONE (22:05)
[2022-05-17] MEDS: MONTELUKAST NA 10 MG TABLET PO SCH (22:14)
[2022-05-17] MEDS: MIRTAZAPINE 15 MG TABLET (FP) PO SCH (22:14)
[2022-05-18] MEDS: NYSTATIN POWDER 100,000 UNITS/GM - 15 GM TOPICAL POWDER TP SCH ×3 (06:18→22:39)
[2022-05-18] MEDS: FUROSEMIDE 40 MG/4 ML INJECTABLE VIAL IVPUSH SCH ×2 (06:18→13:03)
[2022-05-18] MEDS: INSULIN SLIDING SCALE (NOVOLOG) 1 VIAL SQ SCH ×4 (06:28→22:14)
[2022-05-18] MEDS: ALBUTEROL SO4 2.5/IPRATROPIUM 0.5 INH SOL 3 ML VIAL.NEB. NEB SCH ×4 (07:20→20:20)
[2022-05-18 08:30] LABS: INR 3.72 (0.83-1.09); PROTHROMBIN TIME (PATIENT) 43.4 SEC (9.7-13.0)
[2022-05-18 08:40] LABS: BASO % 0.1 % (0-2.0); HEMATOCRIT 32.1 % (32.4-45.2); HEMOGLOBIN 10.3 GM/dL (10.7-15.3); LYMPH % 12.5 % (8-40); MCH 27.7 pg (25.7-33.7); MCHC 32.1 g/dl (32.0-36.0); MEAN CELL VOLUME 86.5 fl (80-96); MEAN PLT VOLUME 8.7 fl (7.5-11.1); MONO % 14.2 % (3.8-10.2); NEUT % 73.2 % (42.8-82.8); PLATELET COUNT 185 10^3/uL (134-434); RBC 3.72 M/mm3 (3.60-5.2); RDW 18.6 % (11.6-15.6); WHITE BLOOD COUNT 3.8 K/mm3 (4.0-10.0)
[2022-05-18 08:43] LABS: BLOOD UREA NITROGEN 16.1 mg/dL (7-18); CALCIUM 8.6 mg/dL (8.5-10.1)
[2022-05-18 08:47] LABS: CREATININE 0.7 mg/dL (0.55-1.3)
[2022-05-18 08:48] LABS: BILIRUBIN,TOTAL 1.2 mg/dL (0.2-1); TOT PROT 6.4 g/dl (6.4-8.2)
[2022-05-18] MEDS: ESCITALOPRAM OXALATE 10 MG TABLET PO SCH (09:51)
[2022-05-18] MEDS ORDERED: methylPREDNISolone NA SUCC 40 MG/1 ML VIAL IVPUSH SCH (10:00)
[2022-05-18] MEDS: WARFARIN NA 2.5 MG TABLET PO SCH (17:05)
[2022-05-18] MEDS: MIRTAZAPINE 15 MG TABLET (FP) PO SCH (22:12)
[2022-05-18] MEDS: MONTELUKAST NA 10 MG TABLET PO SCH (22:12)
[2022-05-18] MEDS: ATORVASTATIN CA 10 MG TABLET (FP) PO SCH (22:12)
[2022-05-18] MEDS: INSULIN (LEVEMIR) 100 UNITS/ML UNITS SQ SCH (22:14)
[2022-05-19] MEDS: FUROSEMIDE 40 MG/4 ML INJECTABLE VIAL IVPUSH SCH ×2 (05:51→13:23)
[2022-05-19] MEDS: INSULIN SLIDING SCALE (NOVOLOG) 1 VIAL SQ SCH ×4 (06:01→21:48)
[2022-05-19 07:13] LABS: INR 3.39 (0.83-1.09); PROTHROMBIN TIME (PATIENT) 39.5 SEC (9.7-13.0)
[2022-05-19] MEDS: ALBUTEROL SO4 2.5/IPRATROPIUM 0.5 INH SOL 3 ML VIAL.NEB. NEB SCH ×4 (07:45→20:39)
[2022-05-19] MEDS: ESCITALOPRAM OXALATE 10 MG TABLET PO SCH (09:32)
[2022-05-19] MEDS: NYSTATIN POWDER 100,000 UNITS/GM - 15 GM TOPICAL POWDER TP SCH ×2 (09:33→21:48)
[2022-05-19] MEDS: INSULIN (LEVEMIR) 100 UNITS/ML UNITS SQ SCH (21:48)
[2022-05-19] MEDS: MIRTAZAPINE 15 MG TABLET (FP) PO SCH (21:48)
[2022-05-19] MEDS: MONTELUKAST NA 10 MG TABLET PO SCH (21:48)
[2022-05-20] MEDS: FUROSEMIDE 40 MG/4 ML INJECTABLE VIAL IVPUSH SCH ×2 (06:02→14:26)
[2022-05-20] MEDS: INSULIN SLIDING SCALE (NOVOLOG) 1 VIAL SQ SCH ×4 (06:04→21:30)
[2022-05-20] MEDS: ALBUTEROL SO4 2.5/IPRATROPIUM 0.5 INH SOL 3 ML VIAL.NEB. NEB SCH ×4 (07:30→19:20)
[2022-05-20 08:20] LABS: INR 2.89 (0.83-1.09); PROTHROMBIN TIME (PATIENT) 33.6 SEC (9.7-13.0)
[2022-05-20] MEDS: ESCITALOPRAM OXALATE 10 MG TABLET PO SCH (10:23)
[2022-05-20] MEDS: NYSTATIN POWDER 100,000 UNITS/GM - 15 GM TOPICAL POWDER TP SCH ×2 (10:23→21:30)
[2022-05-20] MEDS: WARFARIN NA 2.5 MG TABLET PO SCH (17:18)
[2022-05-20] MEDS: INSULIN (LEVEMIR) 100 UNITS/ML UNITS SQ SCH (21:29)
[2022-05-20] MEDS: MONTELUKAST NA 10 MG TABLET PO SCH (21:29)
[2022-05-20] MEDS: MIRTAZAPINE 15 MG TABLET (FP) PO SCH (21:29)
[2022-05-20] MEDS: ATORVASTATIN CA 10 MG TABLET (FP) PO SCH (21:29)
[2022-05-21] MEDS: FUROSEMIDE 40 MG/4 ML INJECTABLE VIAL IVPUSH SCH (06:27)
[2022-05-21] MEDS: INSULIN SLIDING SCALE (NOVOLOG) 1 VIAL SQ SCH ×4 (06:27→21:15)
[2022-05-21 08:40] LABS: INR 2.58 (0.83-1.09)
[2022-05-21] MEDS: ALBUTEROL SO4 2.5/IPRATROPIUM 0.5 INH SOL 3 ML VIAL.NEB. NEB SCH (08:44)
[2022-05-21] MEDS: ESCITALOPRAM OXALATE 10 MG TABLET PO SCH (09:58)
[2022-05-21] MEDS: NYSTATIN POWDER 100,000 UNITS/GM - 15 GM TOPICAL POWDER TP SCH ×2 (09:58→21:15)
[2022-05-21] MEDS: FUROSEMIDE 20 MG TABLET (FP) PO SCH (14:25)
[2022-05-21] MEDS: WARFARIN NA 2.5 MG TABLET PO SCH (19:17)
[2022-05-21] MEDS: MIRTAZAPINE 15 MG TABLET (FP) PO SCH (21:17)
[2022-05-21] MEDS: MONTELUKAST NA 10 MG TABLET PO SCH (21:17)
[2022-05-21] MEDS: ACETAMINOPHEN 325 MG TABLET (FP) PO PRN (21:18)
[2022-05-21] MEDS: INSULIN (LEVEMIR) 100 UNITS/ML UNITS SQ SCH (21:35)
[2022-05-22] MEDS: INSULIN SLIDING SCALE (NOVOLOG) 1 VIAL SQ SCH ×4 (06:28→21:53)
[2022-05-22] MEDS: FUROSEMIDE 20 MG TABLET (FP) PO SCH ×2 (06:28→14:40)
[2022-05-22] MEDS: ESCITALOPRAM OXALATE 10 MG TABLET PO SCH (10:21)
[2022-05-22] MEDS: NYSTATIN POWDER 100,000 UNITS/GM - 15 GM TOPICAL POWDER TP SCH ×2 (10:23→21:25)
[2022-05-22 13:45] LABS: BASO % 0.2 % (0-2.0); HEMATOCRIT 34.2 % (32.4-45.2); HEMOGLOBIN 10.7 GM/dL (10.7-15.3); LYMPH % 13.2 % (8-40); MCH 27.7 pg (25.7-33.7); MCHC 31.1 g/dl (32.0-36.0); MEAN CELL VOLUME 88.9 fl (80-96); MEAN PLT VOLUME 8.9 fl (7.5-11.1); MONO % 13.5 % (3.8-10.2); NEUT % 68.1 % (42.8-82.8); PLATELET COUNT 157 10^3/uL (134-434); RBC 3.85 M/mm3 (3.60-5.2); RDW 19.2 % (11.6-15.6); WHITE BLOOD COUNT 6.7 K/mm3 (4.0-10.0)
[2022-05-22 14:11] LABS: ALBUMIN 2.8 g/dl (3.4-5.0)
[2022-05-22 14:15] LABS: BLOOD UREA NITROGEN 14.4 mg/dL (7-18); CREATININE 0.6 mg/dL (0.55-1.3)
[2022-05-22 14:16] LABS: BILIRUBIN,TOTAL 0.9 mg/dL (0.2-1); TOT PROT 6.2 g/dl (6.4-8.2)
[2022-05-22] MEDS: WARFARIN NA 2.5 MG TABLET PO SCH ×2 (18:30→19:00)
[2022-05-22] MEDS: MIRTAZAPINE 15 MG TABLET (FP) PO SCH (21:23)
[2022-05-22] MEDS: MONTELUKAST NA 10 MG TABLET PO SCH (21:26)
[2022-05-22] MEDS: INSULIN (LEVEMIR) 100 UNITS/ML UNITS SQ SCH (21:55)
[2022-05-23] MEDS: FUROSEMIDE 20 MG TABLET (FP) PO SCH ×2 (06:34→13:50)
[2022-05-23] MEDS: ATORVASTATIN CA 10 MG TABLET (FP) PO SCH (06:34)
[2022-05-23] MEDS: INSULIN SLIDING SCALE (NOVOLOG) 1 VIAL SQ SCH ×4 (06:35→22:45)
[2022-05-23] MEDS: ESCITALOPRAM OXALATE 10 MG TABLET PO SCH (09:30)
[2022-05-23] MEDS: NYSTATIN POWDER 100,000 UNITS/GM - 15 GM TOPICAL POWDER TP SCH ×2 (09:30→22:01)
[2022-05-23 13:01] LABS: INR 1.9 (0.83-1.09)
[2022-05-23] MEDS: WARFARIN NA 2.5 MG TABLET PO SCH ×2 (13:14→17:00)
[2022-05-23] MEDS: ALBUTEROL SO4 2.5/IPRATROPIUM 0.5 INH SOL 3 ML VIAL.NEB. NEB PRN ×2 (13:19→17:02)
[2022-05-23 16:27] VITALS: RESP 18
[2022-05-23] MEDS: MONTELUKAST NA 10 MG TABLET PO SCH (22:02)
[2022-05-23] MEDS: MIRTAZAPINE 15 MG TABLET (FP) PO SCH (22:02)
[2022-05-23] MEDS: ACETAMINOPHEN 325 MG TABLET (FP) PO PRN (22:03)
[2022-05-23] MEDS: INSULIN (LEVEMIR) 100 UNITS/ML UNITS SQ SCH (22:45)
[2022-05-24] MEDS: FUROSEMIDE 20 MG TABLET (FP) PO SCH ×2 (06:13→14:15)
[2022-05-24] MEDS: INSULIN SLIDING SCALE (NOVOLOG) 1 VIAL SQ SCH ×3 (06:14→16:50)
[2022-05-24 07:20] LABS: BASO % 0.5 % (0-2.0); EOS % 5.6 % (0-4.5); HEMATOCRIT 31.8 % (32.4-45.2); HEMOGLOBIN 10.2 GM/dL (10.7-15.3); LYMPH % 16.6 % (8-40); MCH 27.7 pg (25.7-33.7); MCHC 32.2 g/dl (32.0-36.0); MEAN PLT VOLUME 8.9 fl (7.5-11.1); MONO % 14.5 % (3.8-10.2); NEUT % 62.8 % (42.8-82.8); PLATELET COUNT 170 10^3/uL (134-434); RBC 3.69 M/mm3 (3.60-5.2); RDW 18.2 % (11.6-15.6); WHITE BLOOD COUNT 5.8 K/mm3 (4.0-10.0)
[2022-05-24 07:28] LABS: INR 1.7 (0.83-1.09); PROTHROMBIN TIME (PATIENT) 19.7 SEC (9.7-13.0)
[2022-05-24 07:42] LABS: CALCIUM 8.1 mg/dL (8.5-10.1)
[2022-05-24 07:43] LABS: ALBUMIN 2.6 g/dl (3.4-5.0); BLOOD UREA NITROGEN 15.5 mg/dL (7-18)
[2022-05-24 07:47] LABS: CREATININE 0.6 mg/dL (0.55-1.3); TOT PROT 5.7 g/dl (6.4-8.2)
[2022-05-24] MEDS: NYSTATIN POWDER 100,000 UNITS/GM - 15 GM TOPICAL POWDER TP SCH (09:47)
[2022-05-24] MEDS: ESCITALOPRAM OXALATE 10 MG TABLET PO SCH (09:47)
[2022-05-24] MEDS: WARFARIN NA 2.5 MG TABLET PO SCH (17:03)
[2022-05-24 18:53] VITALS: BP 124/67; PULSE 62; TEMP 97.6
== END 2022-05-24 20:00 | DRG 291 ==
LOC: JER 02:39 → JERBED 05:17 → J4W 05-18 02:27
PROVIDERS: ADMIT Family Medicine; ATTEND Family Medicine
DX: I11.0 Hypertensive heart disease with heart failure (principal); I50.33 Acute on chronic diastolic (congestive) heart failure; J90 Pleural effusion, not elsewhere classified; I48.91 Unspecified atrial fibrillation; J45.909 Unspecified asthma, uncomplicated; J44.9 Chronic obstructive pulmonary disease, unspecified; E05.90 Thyrotoxicosis, unspecified without thyrotoxic crisis or storm; E11.9 Type 2 diabetes mellitus without complications; G30.9 Alzheimer's disease, unspecified; I25.10 Atherosclerotic heart disease of native coronary artery without angina pectoris; K21.9 Gastro-esophageal reflux disease without esophagitis; E78.5 Hyperlipidemia, unspecified
CPT/HCPCS: 0241U-QW; 36415; 71045-TC-FY; 71250-TC; 80053; 82962; 83735; 83880; 84100; 84443; 84484; 85025; 85610; 85730; 93005; 93010; 93306-TC; 94640; 99285-25; C9803-CS; U0003; U0005

== ENCOUNTER 2022-10-11 21:40 | Inpatient (IN) | payer OTHER ==
[2022-10-11] MEDS ORDERED: MAGNESIUM SULFATE IN WATER 2 GM/50 ML IVPB IVPB ONE (21:49)
[2022-10-11] MEDS ORDERED: DEXAMETHASONE SOD PHOSPHATE 10 MG/1 ML VIAL ONE (21:49)
[2022-10-11] MEDS ORDERED: DEXAMETHASONE SOD PHOSPHATE 10 MG/1 ML VIAL IVPUSH ONE (21:51)
[2022-10-11] MEDS ORDERED: MAGNESIUM SULF 50% (8.12 MEQ/2 ML-1 GM VIAL) IVPB ONE (21:51)
[2022-10-11] MEDS ORDERED: ALBUTEROL SO4 0.083% IH SOL 2.5 MG/3 ML VIAL.NEB. NEB ONE ×2 (22:09→22:13)
[2022-10-11 22:18] LABS: BASO % 0.3 % (0-2.0); EOS % 1.2 % (0-4.5); HEMATOCRIT 36.5 % (32.4-45.2); HEMOGLOBIN 11.3 GM/dL (10.7-15.3); LYMPH % 5.5 % (8-40); MCH 28.4 pg (25.7-33.7); MCHC 30.9 g/dl (32.0-36.0); MEAN CELL VOLUME 91.9 fl (80-96); MEAN PLT VOLUME 8.2 fl (7.5-11.1); MONO % 14.4 % (3.8-10.2); NEUT % 78.6 % (42.8-82.8); PLATELET COUNT 146 10^3/uL (134-434); RBC 3.97 M/mm3 (3.60-5.2); RDW 18.7 % (11.6-15.6); WHITE BLOOD COUNT 9.4 K/mm3 (4.0-10.0)
[2022-10-11 22:20] LABS: VENOUS BASE EXCESS -0.6 mmol/L (-2-2); VENOUS O2 SATURATION 85.9 % (70-80); VENOUS PH 7.223 (7.310-7.410)
[2022-10-11 22:28] LABS: INR 3.55 (0.83-1.09); PROTHROMBIN TIME (PATIENT) 41.4 SEC (9.7-13.0)
[2022-10-11 22:31] LABS: ACTIVATED PTT 52.2 SECONDS (25.2-36.5)
[2022-10-11 22:33] LABS: CHLORIDE 104 mmol/L (98-107); SODIUM 143 mmol/L (136-145)
[2022-10-11 22:34] LABS: ALBUMIN 3.2 g/dl (3.4-5.0); CALCIUM 8.2 mg/dL (8.5-10.1)
[2022-10-11 22:35] LABS: ANION GAP 9 MMOL/L (8-16); CO2 30 mmol/L (21-32); GLUCOSE,RANDOM 121 mg/dL (74-106)
[2022-10-11 22:36] LABS: VENOUS PCO2 71.3 mmHg (38-52)
[2022-10-11 22:38] LABS: CREATININE 0.7 mg/dL (0.55-1.3); PHOSPHOROUS 3.7 mg/dL (2.5-4.9); SGOT/AST 39 U/L (15-37); SGPT/ALT 12 U/L (13-61)
[2022-10-11 22:39] LABS: TOT PROT 7.2 g/dl (6.4-8.2)
[2022-10-11 22:40] LABS: ALK PHOS 192 U/L (45-117); BILIRUBIN,TOTAL 1.3 mg/dL (0.2-1)
[2022-10-11 22:43] LABS: N-TERMINAL BNP 869.5 pg/ml (5-450)
[2022-10-11] MEDS ORDERED: ASPIRIN 300 MG SUPP.RECT PR ONE (23:21)
[2022-10-11] MEDS ORDERED: ASPIRIN 300 MG SUPP.RECT RC ONE (23:46)
[2022-10-11] MEDS ORDERED: RACEPINEPHRINE IH SOL 2.25% 11.25 MG/0.5 ML VIAL IH ONE (23:57)
[2022-10-11] MEDS ORDERED: RACEPINEPHRINE IH SOL 2.25% 11.25 MG/0.5 ML VIAL NEB ONE (23:59)
[2022-10-12 08:26] LABS: BASO % 0.2 % (0-2.0); HEMATOCRIT 34.9 % (32.4-45.2); HEMOGLOBIN 10.9 GM/dL (10.7-15.3); LYMPH % 7.5 % (8-40); MCH 28.7 pg (25.7-33.7); MCHC 31.2 g/dl (32.0-36.0); MEAN CELL VOLUME 92.2 fl (80-96); MEAN PLT VOLUME 8.6 fl (7.5-11.1); MONO % 4.1 % (3.8-10.2); NEUT % 88.2 % (42.8-82.8); PLATELET COUNT 136 10^3/uL (134-434); RBC 3.79 M/mm3 (3.60-5.2); RDW 18.9 % (11.6-15.6); WHITE BLOOD COUNT 6.1 K/mm3 (4.0-10.0)
[2022-10-12 08:58] LABS: ALBUMIN 2.9 g/dl (3.4-5.0); BLOOD UREA NITROGEN 16.2 mg/dL (7-18); CALCIUM 8.6 mg/dL (8.5-10.1)
[2022-10-12 09:02] LABS: CREATININE 0.7 mg/dL (0.55-1.3); TOT PROT 6.6 g/dl (6.4-8.2)
[2022-10-12] MEDS: methylPREDNISolone NA SUCC 40 MG/1 ML VIAL IVPUSH SCH ×2 (10:47→17:28)
[2022-10-12] MEDS: ESCITALOPRAM OXALATE 10 MG TABLET PO SCH (11:24)
[2022-10-12] MEDS: MIRTAZAPINE 15 MG TABLET (FP) PO SCH (11:25)
[2022-10-12] MEDS: ATORVASTATIN CA 10 MG TABLET (FP) PO SCH (11:25)
[2022-10-12] MEDS: MONTELUKAST NA 10 MG TABLET PO SCH (11:26)
[2022-10-12 11:27] LABS: ARTERIAL BLD GAS O2 SATURATION 98.2 % (95-98); ARTERIAL BLOOD GAS BASE EXCESS 3.7 mmol/L (-2-2); ARTERIAL BLOOD GAS PO2 134.3 mmHg (80-100); ARTERIAL BLOOD GAS pH 7.263 (7.350-7.450)
[2022-10-12 11:28] LABS: ALLENS TEST POSITIVE
[2022-10-12 11:29] LABS: VENT MODE BIPAP; VENT RATE 18
[2022-10-12 13:16] LABS: INR 4.2 (0.83-1.09)
[2022-10-13] MEDS: methylPREDNISolone NA SUCC 40 MG/1 ML VIAL IVPUSH SCH ×3 (03:10→17:29)
[2022-10-13 08:10] LABS: BASO % 0.1 % (0-2.0); HEMATOCRIT 35.6 % (32.4-45.2); HEMOGLOBIN 11.1 GM/dL (10.7-15.3); LYMPH % 17.5 % (8-40); MCH 28.6 pg (25.7-33.7); MCHC 31.1 g/dl (32.0-36.0); MEAN CELL VOLUME 91.8 fl (80-96); MONO % 17.3 % (3.8-10.2); NEUT % 65.1 % (42.8-82.8); PLATELET COUNT 128 10^3/uL (134-434); RBC 3.87 M/mm3 (3.60-5.2); RDW 18.7 % (11.6-15.6); WHITE BLOOD COUNT 3.1 K/mm3 (4.0-10.0)
[2022-10-13 08:16] LABS: PROTHROMBIN TIME (PATIENT) 60.2 SEC (9.7-13.0)
[2022-10-13 08:33] LABS: CHLORIDE 108 mmol/L (98-107); SODIUM 145 mmol/L (136-145)
[2022-10-13 08:35] LABS: INR 5.15 (0.83-1.09)
[2022-10-13 08:49] LABS: ANION GAP 8 MMOL/L (8-16); CALCIUM 8.7 mg/dL (8.5-10.1); CO2 29 mmol/L (21-32); GLUCOSE,RANDOM 130 mg/dL (74-106)
[2022-10-13 08:50] LABS: BLOOD UREA NITROGEN 27.5 mg/dL (7-18)
[2022-10-13 08:52] LABS: CREATININE 0.8 mg/dL (0.55-1.3); SGPT/ALT 12 U/L (13-61)
[2022-10-13 08:53] LABS: SGOT/AST 37 U/L (15-37)
[2022-10-13 08:54] LABS: BILIRUBIN,TOTAL 1.1 mg/dL (0.2-1); TOT PROT 6.6 g/dl (6.4-8.2)
[2022-10-13 08:55] LABS: ALK PHOS 162 U/L (45-117)
[2022-10-13] MEDS: MIRTAZAPINE 15 MG TABLET (FP) PO SCH (10:13)
[2022-10-13] MEDS: ESCITALOPRAM OXALATE 10 MG TABLET PO SCH (10:13)
[2022-10-13] MEDS: MONTELUKAST NA 10 MG TABLET PO SCH (10:14)
[2022-10-13] MEDS: FUROSEMIDE 100 MG/10 ML INJECTABLE VIAL IVPB SCH (10:17)
[2022-10-14] MEDS: methylPREDNISolone NA SUCC 40 MG/1 ML VIAL IVPUSH SCH ×4 (01:12→21:39)
[2022-10-14 08:33] LABS: PROTHROMBIN TIME (PATIENT) 69.4 SEC (9.7-13.0)
[2022-10-14 08:46] LABS: HEMATOCRIT 36.7 % (32.4-45.2); HEMOGLOBIN 11.4 GM/dL (10.7-15.3); MCH 28.4 pg (25.7-33.7); MEAN CELL VOLUME 91.7 fl (80-96); MEAN PLT VOLUME 9.3 fl (7.5-11.1); MONO % 13.3 % (3.8-10.2); NEUT % 72.7 % (42.8-82.8); PLATELET COUNT 148 10^3/uL (134-434); RDW 18.5 % (11.6-15.6); WHITE BLOOD COUNT 2.7 K/mm3 (4.0-10.0)
[2022-10-14 08:49] LABS: EPI CELLS >36 /uL (0-25.1); HYALINE CASTS 1 /uL (0-3.1); PH,URINE 6.5 (5.0-8.0); URINE APPEARANCE TURBID; URINE BACTERIA >9,000 /uL (0-1359); URINE BILIRUBIN NEGATIVE (NEGATIVE); URINE COLOR DK YELLOW; URINE GLUCOSE (UA) NEGATIVE (NEGATIVE); URINE KETONE NEGATIVE (NEGATIVE); URINE LEUK ESTERASE 2+ (NEGATIVE); URINE NITRITE NEGATIVE (NEGATIVE); URINE PROTEIN TRACE (NEGATIVE); URINE WBC 55 /uL (0-25.8)
[2022-10-14 08:51] LABS: BLOOD UREA NITROGEN 35.5 mg/dL (7-18); CALCIUM 8.6 mg/dL (8.5-10.1)
[2022-10-14 08:52] LABS: ALBUMIN 2.9 g/dl (3.4-5.0)
[2022-10-14 08:53] LABS: CREATININE 0.9 mg/dL (0.55-1.3)
[2022-10-14 08:55] LABS: BILIRUBIN,TOTAL 1.2 mg/dL (0.2-1); TOT PROT 6.7 g/dl (6.4-8.2)
[2022-10-14] MEDS: ATORVASTATIN CA 10 MG TABLET (FP) PO SCH (09:15)
[2022-10-14 09:17] LABS: INR 5.93 (0.83-1.09)
[2022-10-14 09:33] LABS: URINE CRYSTALS NEGATIVE /hpf; URINE RBC 47.7 /uL (0-23.9); YEAST NEGATIVE (NEGATIVE)
[2022-10-14] MEDS: ESCITALOPRAM OXALATE 10 MG TABLET PO SCH (10:09)
[2022-10-14] MEDS: MIRTAZAPINE 15 MG TABLET (FP) PO SCH (10:10)
[2022-10-14] MEDS: FUROSEMIDE 100 MG/10 ML INJECTABLE VIAL IVPB SCH (10:11)
[2022-10-14] MEDS: MONTELUKAST NA 10 MG TABLET PO SCH (10:11)
[2022-10-15] MEDS: methylPREDNISolone NA SUCC 40 MG/1 ML VIAL IVPUSH SCH ×4 (02:17→22:55)
[2022-10-15] MEDS: ESCITALOPRAM OXALATE 10 MG TABLET PO SCH (10:18)
[2022-10-15] MEDS: MIRTAZAPINE 15 MG TABLET (FP) PO SCH (10:18)
[2022-10-15] MEDS: FUROSEMIDE 100 MG/10 ML INJECTABLE VIAL IVPB SCH (10:18)
[2022-10-15] MEDS: MONTELUKAST NA 10 MG TABLET PO SCH (10:19)
[2022-10-15 12:17] LABS: BASO % 0.1 % (0-2.0); HEMATOCRIT 37.2 % (32.4-45.2); HEMOGLOBIN 11.5 GM/dL (10.7-15.3); LYMPH % 9.8 % (8-40); MCH 28.4 pg (25.7-33.7); MCHC 31.1 g/dl (32.0-36.0); MEAN CELL VOLUME 91.6 fl (80-96); MONO % 12.3 % (3.8-10.2); NEUT % 77.8 % (42.8-82.8); PLATELET COUNT 141 10^3/uL (134-434); RBC 4.06 M/mm3 (3.60-5.2); RDW 17.9 % (11.6-15.6); WHITE BLOOD COUNT 4.3 K/mm3 (4.0-10.0)
[2022-10-15 12:38] LABS: CALCIUM 8.4 mg/dL (8.5-10.1)
[2022-10-15 12:39] LABS: BLOOD UREA NITROGEN 29.2 mg/dL (7-18)
[2022-10-15 12:42] LABS: CREATININE 0.8 mg/dL (0.55-1.3)
[2022-10-15 12:47] LABS: BILIRUBIN,TOTAL 0.9 mg/dL (0.2-1)
[2022-10-15 13:03] LABS: INR 5.22 (0.83-1.09)
[2022-10-15] MEDS: ALBUTEROL SO4 2.5/IPRATROPIUM 0.5 INH SOL 3 ML VIAL.NEB. NEB PRN (14:05)
[2022-10-16] MEDS: methylPREDNISolone NA SUCC 40 MG/1 ML VIAL IVPUSH SCH ×3 (03:43→17:44)
[2022-10-16] MEDS: ESCITALOPRAM OXALATE 10 MG TABLET PO SCH (11:28)
[2022-10-16] MEDS: MIRTAZAPINE 15 MG TABLET (FP) PO SCH (11:30)
[2022-10-16] MEDS: MONTELUKAST NA 10 MG TABLET PO SCH (11:30)
[2022-10-16] MEDS: ATORVASTATIN CA 10 MG TABLET (FP) PO SCH (11:30)
[2022-10-16] MEDS: FUROSEMIDE 100 MG/10 ML INJECTABLE VIAL IVPB SCH (13:27)
[2022-10-16] MEDS: ALBUTEROL SO4 2.5/IPRATROPIUM 0.5 INH SOL 3 ML VIAL.NEB. NEB PRN (20:14)
[2022-10-17] MEDS: methylPREDNISolone NA SUCC 40 MG/1 ML VIAL IVPUSH SCH (01:06)
[2022-10-17] MEDS: predniSONE 10 MG TABLET (UD) PO SCH ×2 (09:51→21:57)
[2022-10-17] MEDS: ESCITALOPRAM OXALATE 10 MG TABLET PO SCH (09:52)
[2022-10-17] MEDS: MIRTAZAPINE 15 MG TABLET (FP) PO SCH (09:52)
[2022-10-17] MEDS: MONTELUKAST NA 10 MG TABLET PO SCH (09:53)
[2022-10-17] MEDS: TORSEMIDE 20 MG TABLET (FP) PO SCH (09:53)
[2022-10-17 11:30] LABS: INR 3.5 (0.83-1.09); PROTHROMBIN TIME (PATIENT) 40.8 SEC (9.7-13.0)
[2022-10-17 14:05] VITALS: BMI 31.4
[2022-10-18] MEDS: ESCITALOPRAM OXALATE 10 MG TABLET PO SCH (09:48)
[2022-10-18] MEDS: predniSONE 10 MG TABLET (UD) PO SCH ×2 (09:48→22:18)
[2022-10-18] MEDS: TORSEMIDE 20 MG TABLET (FP) PO SCH (09:48)
[2022-10-18] MEDS: MONTELUKAST NA 10 MG TABLET PO SCH (09:49)
[2022-10-18] MEDS: ATORVASTATIN CA 10 MG TABLET (FP) PO SCH (09:49)
[2022-10-18 10:09] LABS: FACTOR 5 ACTIVITY 97 % (70-150)
[2022-10-18] MEDS ORDERED: MIRTAZAPINE 15 MG TABLET (FP) PO SCH (22:00)
[2022-10-19 09:18] VITALS: BP 124/73; RESP 20; TEMP 98
[2022-10-19] MEDS: ESCITALOPRAM OXALATE 10 MG TABLET PO SCH (09:18)
[2022-10-19] MEDS: MONTELUKAST NA 10 MG TABLET PO SCH (09:18)
[2022-10-19] MEDS: TORSEMIDE 20 MG TABLET (FP) PO SCH (09:18)
[2022-10-19] MEDS: predniSONE 10 MG TABLET (UD) PO SCH (09:22)
[2022-10-19 11:40] VITALS: PULSE 87
== END 2022-10-19 12:39 | DRG 291 ==
LOC: JER 21:40 → JERBED 22:58 → J4W 10-12 05:18
PROVIDERS: ADMIT Internal Medicine; ATTEND Family Medicine
DX: I11.0 Hypertensive heart disease with heart failure (principal); I50.33 Acute on chronic diastolic (congestive) heart failure; J96.22 Acute and chronic respiratory failure with hypercapnia; J96.21 Acute and chronic respiratory failure with hypoxia; J44.1 Chronic obstructive pulmonary disease with (acute) exacerbation; D62 Acute posthemorrhagic anemia; J98.11 Atelectasis; Z99.81 Dependence on supplemental oxygen; Z79.01 Long term (current) use of anticoagulants; E78.5 Hyperlipidemia, unspecified; Z86.711 Personal history of pulmonary embolism; G30.9 Alzheimer's disease, unspecified; F02.80 Dementia in other diseases classified elsewhere, unspecified severity, without behavioral disturbance, psychotic disturbance, mood disturbance, and anxiety; E11.9 Type 2 diabetes mellitus without complications; Z79.4 Long term (current) use of insulin; Z95.2 Presence of prosthetic heart valve; R77.8 Other specified abnormalities of plasma proteins; R79.1 Abnormal coagulation profile; I48.0 Paroxysmal atrial fibrillation
CPT/HCPCS: 0241U-QW; 36415; 36600; 71045-TC-FY; 80053; 80061; 81003; 82803; 82962; 83036; 83605; 83735; 83880; 84100; 84443; 84484; 85025; 85220; 85240; 85260; 85610; 85730; 86850; 86900; 86901; 87040; 87086; 93005; 93010; 94640; 94660; 99291; C9803-CS; J1100; U0003; U0005

== ENCOUNTER 2023-03-21 14:29 | Inpatient (IN) | payer OTHER ==
[2023-03-21] MEDS ORDERED: ALBUTEROL SO4 2.5/IPRATROPIUM 0.5 INH SOL 3 ML VIAL.NEB. NEB ONE ×2 (15:02→15:06)
[2023-03-21] MEDS ORDERED: DEXAMETHASONE SOD PHOSPHATE 10 MG/1 ML VIAL ONE (15:03)
[2023-03-21] MEDS ORDERED: FUROSEMIDE 40 MG/4 ML INJECTABLE VIAL IVPUSH ONE (15:06)
[2023-03-21] MEDS ORDERED: methylPREDNISolone NA SUCC 125 MG/2 ML VIAL ONE (15:07)
[2023-03-21] MEDS ORDERED: methylPREDNISolone NA SUCC 125 MG/2 ML VIAL IVPB ONE (15:17)
[2023-03-21] MEDS ORDERED: FUROSEMIDE 40 MG/4 ML INJECTABLE VIAL ONE (15:34)
[2023-03-21 15:45] LABS: BASO % 0.5 % (0-2.0); EOS % 2.1 % (0-4.5); HEMATOCRIT 35.1 % (32.4-45.2); HEMOGLOBIN 10.9 GM/dL (10.7-15.3); LYMPH % 11.4 % (8-40); MCH 28.7 pg (25.7-33.7); MCHC 30.9 g/dl (32.0-36.0); MEAN CELL VOLUME 92.7 fl (80-96); MEAN PLT VOLUME 9.1 fl (7.5-11.1); MONO % 15.9 % (3.8-10.2); NEUT % 70.1 % (42.8-82.8); PLATELET COUNT 195 10^3/uL (134-434); RBC 3.79 M/mm3 (3.60-5.2); RDW 17.6 % (11.6-15.6); WHITE BLOOD COUNT 9.3 K/mm3 (4.0-10.0)
[2023-03-21 15:51] LABS: INR 2.58 (0.83-1.09); PROTHROMBIN TIME (PATIENT) 29.7 SEC (9.7-13.0)
[2023-03-21 15:54] LABS: ACTIVATED PTT 39.3 SECONDS (25.2-36.5); VENOUS O2 SATURATION 91.7 % (70-80); VENOUS PH 7.263 (7.310-7.410)
[2023-03-21 15:58] LABS: VENOUS PCO2 74.7 mmHg (38-52)
[2023-03-21 16:40] LABS: CALCIUM 8.5 mg/dL (8.5-10.1)
[2023-03-21 16:41] LABS: ALBUMIN 3.1 g/dl (3.4-5.0); BLOOD UREA NITROGEN 16.5 mg/dL (7-18); MAGNESIUM 2.1 mg/dL (1.8-2.4)
[2023-03-21 16:43] LABS: CREATININE 0.8 mg/dL (0.55-1.3)
[2023-03-21 16:45] LABS: TOT PROT 6.9 g/dl (6.4-8.2)
[2023-03-21 16:46] LABS: BILIRUBIN,TOTAL 0.9 mg/dL (0.2-1)
[2023-03-21 16:48] LABS: N-TERMINAL BNP 445.1 pg/ml (5-450)
[2023-03-21 17:28] LABS: VENOUS O2 SATURATION 81.9 % (70-80); VENOUS PH 7.271 (7.310-7.410)
[2023-03-21 17:29] LABS: VENOUS PCO2 75.3 mmHg (38-52)
[2023-03-21] MEDS ORDERED: MAGNESIUM SULF 50% (8.12 MEQ/2 ML-1 GM VIAL) IVPB ONE (18:49)
[2023-03-21] MEDS ORDERED: MAGNESIUM SULFATE IN WATER 2 GM/50 ML IVPB IVPB ONE (19:01)
[2023-03-21 20:03] LABS: ARTERIAL BLD GAS O2 SATURATION 99.3 % (95-98); ARTERIAL BLOOD GAS BASE EXCESS 6.6 mmol/L (-2-2); ARTERIAL BLOOD GAS PO2 212.8 mmHg (80-100); ARTERIAL BLOOD GAS pH 7.329 (7.350-7.450)
[2023-03-21] MEDS ORDERED: AMMONIUM LACTATE 12% LOTION 225 GM BOTTLE TP PRN (22:12)
[2023-03-22] MEDS: methylPREDNISolone NA SUCC 40 MG/1 ML VIAL IVPUSH SCH ×3 (02:16→17:42)
[2023-03-22] MEDS: ATORVASTATIN CA 10 MG TABLET (FP) PO SCH (02:16)
[2023-03-22] MEDS: ALBUTEROL SO4 2.5/IPRATROPIUM 0.5 INH SOL 3 ML VIAL.NEB. NEB SCH ×4 (07:51→20:14)
[2023-03-22 08:45] LABS: BASO % 0.1 % (0-2.0); HEMATOCRIT 33.9 % (32.4-45.2); HEMOGLOBIN 10.4 GM/dL (10.7-15.3); MCH 28.7 pg (25.7-33.7); MCHC 30.8 g/dl (32.0-36.0); MEAN CELL VOLUME 93.2 fl (80-96); MEAN PLT VOLUME 8.9 fl (7.5-11.1); MONO % 5.6 % (3.8-10.2); NEUT % 85.3 % (42.8-82.8); PLATELET COUNT 152 10^3/uL (134-434); RBC 3.64 M/mm3 (3.60-5.2); RDW 17.5 % (11.6-15.6); WHITE BLOOD COUNT 4.7 K/mm3 (4.0-10.0)
[2023-03-22 08:52] LABS: INR 3.02 (0.83-1.09); PROTHROMBIN TIME (PATIENT) 34.7 SEC (9.7-13.0)
[2023-03-22 08:55] LABS: ACTIVATED PTT 41.3 SECONDS (25.2-36.5)
[2023-03-22 09:01] LABS: POTASSIUM 4.2 mmol/L (3.5-5.1)
[2023-03-22 09:04] LABS: CALCIUM 8.3 mg/dL (8.5-10.1)
[2023-03-22 09:06] LABS: BLOOD UREA NITROGEN 17.5 mg/dL (7-18)
[2023-03-22 09:09] LABS: CREATININE 0.8 mg/dL (0.55-1.3); PHOSPHOROUS 3.9 mg/dL (2.5-4.9)
[2023-03-22] MEDS: FUROSEMIDE 100 MG/10 ML INJECTABLE VIAL IVPB SCH ×2 (11:03→15:10)
[2023-03-22] MEDS: POTASSIUM CHLORIDE TABS 20 MEQ TABLET.ER (FP) PO SCH ×2 (11:04→23:06)
[2023-03-22] MEDS: ESCITALOPRAM OXALATE 10 MG TABLET PO SCH (11:04)
[2023-03-22] MEDS: MONTELUKAST NA 10 MG TABLET PO SCH (11:04)
[2023-03-22] MEDS: MIRTAZAPINE 15 MG TABLET (FP) PO SCH (11:04)
[2023-03-22] MEDS: WARFARIN NA 2.5 MG TABLET PO SCH (17:41)
[2023-03-22 21:12] VITALS: BMI 41.6
[2023-03-22] MEDS: NYSTATIN 500,000 UNITS/5 ML SUSPENSION PO SCH (23:06)
[2023-03-23] MEDS: methylPREDNISolone NA SUCC 40 MG/1 ML VIAL IVPUSH SCH ×3 (01:45→17:38)
[2023-03-23] MEDS: FUROSEMIDE 100 MG/10 ML INJECTABLE VIAL IVPB SCH ×2 (06:27→13:42)
[2023-03-23] MEDS: ALBUTEROL SO4 2.5/IPRATROPIUM 0.5 INH SOL 3 ML VIAL.NEB. NEB SCH ×4 (08:13→21:32)
[2023-03-23 08:17] LABS: BASO % 0.1 % (0-2.0); EOS % 0.1 % (0-4.5); HEMATOCRIT 34.8 % (32.4-45.2); HEMOGLOBIN 10.8 GM/dL (10.7-15.3); LYMPH % 7.3 % (8-40); MCH 28.9 pg (25.7-33.7); MEAN CELL VOLUME 93.3 fl (80-96); MEAN PLT VOLUME 9.5 fl (7.5-11.1); MONO % 16.9 % (3.8-10.2); NEUT % 75.6 % (42.8-82.8); PLATELET COUNT 163 10^3/uL (134-434); RBC 3.73 M/mm3 (3.60-5.2); RDW 17.4 % (11.6-15.6); WHITE BLOOD COUNT 3.1 K/mm3 (4.0-10.0)
[2023-03-23 08:38] LABS: INR 3.9 (0.83-1.09); PROTHROMBIN TIME (PATIENT) 44.6 SEC (9.7-13.0)
[2023-03-23 09:07] LABS: ALBUMIN 2.9 g/dl (3.4-5.0); BILIRUBIN,TOTAL 0.8 mg/dL (0.2-1); BLOOD UREA NITROGEN 22.6 mg/dL (7-18); CALCIUM 8.1 mg/dL (8.5-10.1); CREATININE 0.7 mg/dL (0.55-1.3); POTASSIUM 4.9 mmol/L (3.5-5.1); TOT PROT 6.5 g/dl (6.4-8.2)
[2023-03-23] MEDS: ESCITALOPRAM OXALATE 10 MG TABLET PO SCH (09:57)
[2023-03-23] MEDS: POTASSIUM CHLORIDE TABS 20 MEQ TABLET.ER (FP) PO SCH ×2 (09:57→23:24)
[2023-03-23] MEDS: MIRTAZAPINE 15 MG TABLET (FP) PO SCH (09:57)
[2023-03-23] MEDS: NYSTATIN 500,000 UNITS/5 ML SUSPENSION PO SCH ×2 (09:58→23:26)
[2023-03-23] MEDS: MONTELUKAST NA 10 MG TABLET PO SCH (09:58)
[2023-03-23] MEDS: WARFARIN NA 2.5 MG TABLET PO SCH (17:38)
[2023-03-23] MEDS: ATORVASTATIN CA 10 MG TABLET (FP) PO SCH (23:24)
[2023-03-24] MEDS: methylPREDNISolone NA SUCC 40 MG/1 ML VIAL IVPUSH SCH ×2 (02:40→09:46)
[2023-03-24] MEDS: FUROSEMIDE 100 MG/10 ML INJECTABLE VIAL IVPB SCH ×2 (06:38→13:18)
[2023-03-24 08:18] LABS: PROTHROMBIN TIME (PATIENT) 60.5 SEC (9.7-13.0)
[2023-03-24 08:32] LABS: POTASSIUM 4.9 mmol/L (3.5-5.1)
[2023-03-24 08:46] LABS: ALBUMIN 2.7 g/dl (3.4-5.0); BLOOD UREA NITROGEN 25.4 mg/dL (7-18); CALCIUM 8.1 mg/dL (8.5-10.1)
[2023-03-24 08:49] LABS: CREATININE 0.8 mg/dL (0.55-1.3)
[2023-03-24 08:50] LABS: BILIRUBIN,TOTAL 1.2 mg/dL (0.2-1); TOT PROT 5.9 g/dl (6.4-8.2)
[2023-03-24] MEDS: ALBUTEROL SO4 2.5/IPRATROPIUM 0.5 INH SOL 3 ML VIAL.NEB. NEB SCH ×4 (08:57→21:05)
[2023-03-24] MEDS: NYSTATIN 500,000 UNITS/5 ML SUSPENSION PO SCH ×2 (09:45→21:25)
[2023-03-24] MEDS: POTASSIUM CHLORIDE TABS 20 MEQ TABLET.ER (FP) PO SCH ×2 (09:45→21:24)
[2023-03-24] MEDS: ESCITALOPRAM OXALATE 10 MG TABLET PO SCH (09:46)
[2023-03-24] MEDS: MIRTAZAPINE 15 MG TABLET (FP) PO SCH (09:46)
[2023-03-24] MEDS: MONTELUKAST NA 10 MG TABLET PO SCH (09:46)
[2023-03-24 10:01] LABS: INR 5.3 (0.83-1.09)
[2023-03-25] MEDS: FUROSEMIDE 100 MG/10 ML INJECTABLE VIAL IVPB SCH ×2 (06:32→14:47)
[2023-03-25] MEDS: ALBUTEROL SO4 2.5/IPRATROPIUM 0.5 INH SOL 3 ML VIAL.NEB. NEB SCH ×4 (07:40→20:56)
[2023-03-25 07:57] LABS: PROTHROMBIN TIME (PATIENT) 49.2 SEC (9.7-13.0)
[2023-03-25 08:25] LABS: INR 4.3 (0.83-1.09)
[2023-03-25] MEDS: MIRTAZAPINE 15 MG TABLET (FP) PO SCH (09:24)
[2023-03-25] MEDS: NYSTATIN 500,000 UNITS/5 ML SUSPENSION PO SCH ×3 (09:24→22:06)
[2023-03-25] MEDS: MONTELUKAST NA 10 MG TABLET PO SCH (09:24)
[2023-03-25] MEDS: methylPREDNISolone NA SUCC 40 MG/1 ML VIAL IVPUSH SCH (09:24)
[2023-03-25] MEDS: POTASSIUM CHLORIDE TABS 20 MEQ TABLET.ER (FP) PO SCH ×2 (09:24→22:06)
[2023-03-25] MEDS: ESCITALOPRAM OXALATE 10 MG TABLET PO SCH (09:24)
[2023-03-25] MEDS: ATORVASTATIN CA 10 MG TABLET (FP) PO SCH (22:06)
[2023-03-26] MEDS: FUROSEMIDE 100 MG/10 ML INJECTABLE VIAL IVPB SCH ×2 (05:38→13:45)
[2023-03-26] MEDS: ALBUTEROL SO4 2.5/IPRATROPIUM 0.5 INH SOL 3 ML VIAL.NEB. NEB SCH ×4 (08:12→20:43)
[2023-03-26 08:21] LABS: INR 2.85 (0.83-1.09); PROTHROMBIN TIME (PATIENT) 32.7 SEC (9.7-13.0)
[2023-03-26] MEDS: NYSTATIN 500,000 UNITS/5 ML SUSPENSION PO SCH ×4 (10:37→21:13)
[2023-03-26] MEDS: POTASSIUM CHLORIDE TABS 20 MEQ TABLET.ER (FP) PO SCH ×2 (10:37→21:13)
[2023-03-26] MEDS: ESCITALOPRAM OXALATE 10 MG TABLET PO SCH (10:37)
[2023-03-26] MEDS: methylPREDNISolone NA SUCC 40 MG/1 ML VIAL IVPUSH SCH (10:37)
[2023-03-26] MEDS: METOLAZONE 5 MG TABLET PO SCH (10:37)
[2023-03-26] MEDS: MONTELUKAST NA 10 MG TABLET PO SCH (10:37)
[2023-03-26] MEDS: MIRTAZAPINE 15 MG TABLET (FP) PO SCH (10:38)
[2023-03-26 11:16] LABS: POTASSIUM 5.3 mmol/L (3.5-5.1)
[2023-03-26 11:18] LABS: CALCIUM 8.3 mg/dL (8.5-10.1)
[2023-03-26 11:19] LABS: ALBUMIN 2.9 g/dl (3.4-5.0)
[2023-03-26 11:22] LABS: CREATININE 0.8 mg/dL (0.55-1.3)
[2023-03-26 11:23] LABS: BILIRUBIN,TOTAL 0.8 mg/dL (0.2-1)
[2023-03-26 11:24] LABS: TOT PROT 6.2 g/dl (6.4-8.2)
[2023-03-26 13:49] LABS: EOS % 0.3 % (0-4.5); HEMATOCRIT 33.9 % (32.4-45.2); HEMOGLOBIN 10.5 GM/dL (10.7-15.3); LYMPH % 2.3 % (8-40); MCH 28.3 pg (25.7-33.7); MEAN CELL VOLUME 91.2 fl (80-96); MEAN PLT VOLUME 9.4 fl (7.5-11.1); MONO % 11.5 % (3.8-10.2); NEUT % 85.9 % (42.8-82.8); PLATELET COUNT 146 10^3/uL (134-434); RBC 3.72 M/mm3 (3.60-5.2); RDW 16.9 % (11.6-15.6); WHITE BLOOD COUNT 10.2 K/mm3 (4.0-10.0)
[2023-03-27] MEDS: FUROSEMIDE 100 MG/10 ML INJECTABLE VIAL IVPB SCH ×2 (05:36→15:41)
[2023-03-27 08:07] LABS: EOS % 0.1 % (0-4.5); HEMATOCRIT 33.2 % (32.4-45.2); HEMOGLOBIN 10.3 GM/dL (10.7-15.3); LYMPH % 5.2 % (8-40); MCH 28.3 pg (25.7-33.7); MCHC 31.2 g/dl (32.0-36.0); MEAN CELL VOLUME 90.9 fl (80-96); MEAN PLT VOLUME 9.2 fl (7.5-11.1); MONO % 12.7 % (3.8-10.2); PLATELET COUNT 137 10^3/uL (134-434); RBC 3.65 M/mm3 (3.60-5.2); RDW 16.8 % (11.6-15.6); WHITE BLOOD COUNT 7.8 K/mm3 (4.0-10.0)
[2023-03-27 08:16] LABS: INR 2.25 (0.83-1.09); PROTHROMBIN TIME (PATIENT) 25.9 SEC (9.7-13.0)
[2023-03-27 08:21] LABS: POTASSIUM 4.6 mmol/L (3.5-5.1)
[2023-03-27 08:29] LABS: ALBUMIN 2.8 g/dl (3.4-5.0); CALCIUM 8.3 mg/dL (8.5-10.1)
[2023-03-27 08:30] LABS: BLOOD UREA NITROGEN 24.8 mg/dL (7-18)
[2023-03-27 08:33] LABS: CREATININE 0.8 mg/dL (0.55-1.3)
[2023-03-27 08:34] LABS: BILIRUBIN,TOTAL 1.2 mg/dL (0.2-1)
[2023-03-27 10:21] LABS: ALLENS TEST POSITIVE; ARTERIAL BLOOD GAS BASE EXCESS 14.7 mmol/L (-2-2); ARTERIAL BLOOD GAS pH 7.388 (7.350-7.450)
[2023-03-27 10:22] LABS: VENT MODE S/T; VENT RATE 16
[2023-03-27] MEDS: methylPREDNISolone NA SUCC 40 MG/1 ML VIAL IVPUSH SCH (10:54)
[2023-03-27] MEDS: MIRTAZAPINE 15 MG TABLET (FP) PO SCH (10:55)
[2023-03-27] MEDS: POTASSIUM CHLORIDE TABS 20 MEQ TABLET.ER (FP) PO SCH ×2 (10:55→22:13)
[2023-03-27] MEDS: MONTELUKAST NA 10 MG TABLET PO SCH (10:55)
[2023-03-27] MEDS: NYSTATIN 500,000 UNITS/5 ML SUSPENSION PO SCH ×4 (10:55→22:13)
[2023-03-27] MEDS: ESCITALOPRAM OXALATE 10 MG TABLET PO SCH (10:55)
[2023-03-27] MEDS: METOLAZONE 5 MG TABLET PO SCH (11:20)
[2023-03-27] MEDS: ATORVASTATIN CA 10 MG TABLET (FP) PO SCH (22:13)
[2023-03-28] MEDS: FUROSEMIDE 100 MG/10 ML INJECTABLE VIAL IVPB SCH ×2 (07:09→13:42)
[2023-03-28] MEDS: MIRTAZAPINE 15 MG TABLET (FP) PO SCH (10:35)
[2023-03-28] MEDS: MONTELUKAST NA 10 MG TABLET PO SCH (10:35)
[2023-03-28] MEDS: NYSTATIN 500,000 UNITS/5 ML SUSPENSION PO SCH ×4 (10:35→22:20)
[2023-03-28] MEDS: POTASSIUM CHLORIDE TABS 20 MEQ TABLET.ER (FP) PO SCH ×2 (10:36→22:20)
[2023-03-28] MEDS: predniSONE 20 MG TABLET (UD) PO SCH (10:36)
[2023-03-28] MEDS: ESCITALOPRAM OXALATE 10 MG TABLET PO SCH (10:36)
[2023-03-28] MEDS: METOLAZONE 5 MG TABLET PO SCH (10:36)
[2023-03-28 12:31] LABS: CHLORIDE 89 mmol/L (98-107); POTASSIUM 4.8 mmol/L (3.5-5.1); SODIUM 141 mmol/L (136-145)
[2023-03-28 12:32] LABS: CALCIUM 8.7 mg/dL (8.5-10.1)
[2023-03-28 12:33] LABS: BLOOD UREA NITROGEN 23.9 mg/dL (7-18); GLUCOSE,RANDOM 125 mg/dL (74-106)
[2023-03-28 12:37] LABS: CREATININE 0.8 mg/dL (0.55-1.3)
[2023-03-28 12:39] LABS: ANION GAP 6 MMOL/L (8-16); CO2 > 45 mmol/L (21-32)
[2023-03-29] MEDS: FUROSEMIDE 100 MG/10 ML INJECTABLE VIAL IVPB SCH ×2 (06:45→14:58)
[2023-03-29 08:10] LABS: CHLORIDE 88 mmol/L (98-107); POTASSIUM 3.8 mmol/L (3.5-5.1); SODIUM 140 mmol/L (136-145)
[2023-03-29 08:13] LABS: BLOOD UREA NITROGEN 25.7 mg/dL (7-18); GLUCOSE,RANDOM 94 mg/dL (74-106)
[2023-03-29 08:16] LABS: CREATININE 0.7 mg/dL (0.55-1.3)
[2023-03-29 08:19] LABS: ANION GAP 7 MMOL/L (8-16); CO2 > 45 mmol/L (21-32)
[2023-03-29] MEDS: POTASSIUM CHLORIDE TABS 20 MEQ TABLET.ER (FP) PO SCH ×2 (10:04→22:26)
[2023-03-29] MEDS: predniSONE 20 MG TABLET (UD) PO SCH (10:04)
[2023-03-29] MEDS: MONTELUKAST NA 10 MG TABLET PO SCH (10:04)
[2023-03-29] MEDS: NYSTATIN 500,000 UNITS/5 ML SUSPENSION PO SCH ×4 (10:04→22:26)
[2023-03-29] MEDS: MIRTAZAPINE 15 MG TABLET (FP) PO SCH (10:04)
[2023-03-29] MEDS: ESCITALOPRAM OXALATE 10 MG TABLET PO SCH (10:04)
[2023-03-29 12:41] LABS: INR 1.46 (0.83-1.09); PROTHROMBIN TIME (PATIENT) 16.9 SEC (9.7-13.0)
[2023-03-29] MEDS: METOLAZONE 5 MG TABLET PO SCH (14:26)
[2023-03-29] MEDS: guaiFENesin 600 MG TABLET.ER (FP) PO SCH ×2 (14:58→22:26)
[2023-03-29] MEDS: WARFARIN NA 2 MG TABLET PO SCH (18:37)
[2023-03-29] MEDS: ATORVASTATIN CA 10 MG TABLET (FP) PO SCH (22:26)
[2023-03-30] MEDS: FUROSEMIDE 100 MG/10 ML INJECTABLE VIAL IVPB SCH ×2 (05:54→13:20)
[2023-03-30 06:49] LABS: INR 1.27 (0.83-1.09); PROTHROMBIN TIME (PATIENT) 14.7 SEC (9.7-13.0)
[2023-03-30 06:59] LABS: CHLORIDE 84 mmol/L (98-107); POTASSIUM 3.7 mmol/L (3.5-5.1); SODIUM 138 mmol/L (136-145)
[2023-03-30 07:03] LABS: BLOOD UREA NITROGEN 23.6 mg/dL (7-18); CALCIUM 8.6 mg/dL (8.5-10.1); GLUCOSE,RANDOM 93 mg/dL (74-106)
[2023-03-30 07:06] LABS: CREATININE 0.7 mg/dL (0.55-1.3)
[2023-03-30 07:15] LABS: ANION GAP 9 MMOL/L (8-16); CO2 > 45 mmol/L (21-32)
[2023-03-30] MEDS: POTASSIUM CHLORIDE TABS 20 MEQ TABLET.ER (FP) PO SCH ×2 (09:40→21:27)
[2023-03-30] MEDS: guaiFENesin 600 MG TABLET.ER (FP) PO SCH ×2 (09:40→21:27)
[2023-03-30] MEDS: predniSONE 20 MG TABLET (UD) PO SCH (09:40)
[2023-03-30] MEDS: MONTELUKAST NA 10 MG TABLET PO SCH (09:41)
[2023-03-30] MEDS: ESCITALOPRAM OXALATE 10 MG TABLET PO SCH (09:41)
[2023-03-30] MEDS: NYSTATIN 500,000 UNITS/5 ML SUSPENSION PO SCH ×4 (09:41→21:27)
[2023-03-30] MEDS: MIRTAZAPINE 15 MG TABLET (FP) PO SCH (09:41)
[2023-03-30] MEDS: METOLAZONE 5 MG TABLET PO SCH (13:00)
[2023-03-30] MEDS: WARFARIN NA 2 MG TABLET PO SCH (17:09)
[2023-03-31] MEDS: FUROSEMIDE 100 MG/10 ML INJECTABLE VIAL IVPB SCH (05:56)
[2023-03-31 08:17] LABS: BASO % 0.2 % (0-2.0); EOS % 1.2 % (0-4.5); HEMATOCRIT 37.3 % (32.4-45.2); HEMOGLOBIN 11.9 GM/dL (10.7-15.3); LYMPH % 10.3 % (8-40); MCH 28.5 pg (25.7-33.7); MCHC 31.9 g/dl (32.0-36.0); MEAN CELL VOLUME 89.5 fl (80-96); MEAN PLT VOLUME 9.6 fl (7.5-11.1); MONO % 14.6 % (3.8-10.2); NEUT % 73.7 % (42.8-82.8); PLATELET COUNT 159 10^3/uL (134-434); RBC 4.17 M/mm3 (3.60-5.2); RDW 16.6 % (11.6-15.6); WHITE BLOOD COUNT 17.8 K/mm3 (4.0-10.0)
[2023-03-31 08:30] LABS: CHLORIDE 86 mmol/L (98-107); POTASSIUM 3.6 mmol/L (3.5-5.1); SODIUM 140 mmol/L (136-145)
[2023-03-31 08:43] LABS: ALBUMIN 2.9 g/dl (3.4-5.0); BLOOD UREA NITROGEN 22.6 mg/dL (7-18); CALCIUM 8.9 mg/dL (8.5-10.1); GLUCOSE,RANDOM 79 mg/dL (74-106)
[2023-03-31 08:46] LABS: CREATININE 0.8 mg/dL (0.55-1.3); SGPT/ALT 18 U/L (13-61)
[2023-03-31 08:47] LABS: SGOT/AST 31 U/L (15-37)
[2023-03-31 08:48] LABS: TOT PROT 6.6 g/dl (6.4-8.2)
[2023-03-31 08:49] LABS: ALK PHOS 140 U/L (45-117)
[2023-03-31 08:50] LABS: ANION GAP 10 MMOL/L (8-16); CO2 > 45 mmol/L (21-32)
[2023-03-31] MEDS: NYSTATIN 500,000 UNITS/5 ML SUSPENSION PO SCH ×4 (10:18→21:28)
[2023-03-31] MEDS: MIRTAZAPINE 15 MG TABLET (FP) PO SCH (10:18)
[2023-03-31] MEDS: POTASSIUM CHLORIDE TABS 10 MEQ TABLET.ER (FP) PO SCH ×2 (10:19→21:29)
[2023-03-31] MEDS: predniSONE 20 MG TABLET (UD) PO SCH (10:19)
[2023-03-31] MEDS: MONTELUKAST NA 10 MG TABLET PO SCH (10:19)
[2023-03-31] MEDS: ESCITALOPRAM OXALATE 10 MG TABLET PO SCH (10:19)
[2023-03-31] MEDS: METOLAZONE 5 MG TABLET PO SCH (10:20)
[2023-03-31] MEDS: guaiFENesin 600 MG TABLET.ER (FP) PO SCH ×2 (10:22→21:28)
[2023-03-31] MEDS: FUROSEMIDE 40 MG TABLET (FP) PO SCH (15:21)
[2023-03-31 16:33] LABS: INR 1.27 (0.83-1.09); PROTHROMBIN TIME (PATIENT) 14.7 SEC (9.7-13.0)
[2023-03-31] MEDS: WARFARIN NA 2 MG TABLET PO SCH (17:55)
[2023-03-31] MEDS: ATORVASTATIN CA 10 MG TABLET (FP) PO SCH (21:28)
[2023-04-01] MEDS: FUROSEMIDE 40 MG TABLET (FP) PO SCH (05:45)
[2023-04-01 07:28] LABS: BASO % 0.2 % (0-2.0); EOS % 1.4 % (0-4.5); HEMATOCRIT 39.8 % (32.4-45.2); HEMOGLOBIN 12.7 GM/dL (10.7-15.3); LYMPH % 8.5 % (8-40); MCH 28.7 pg (25.7-33.7); MCHC 31.9 g/dl (32.0-36.0); MEAN CELL VOLUME 89.8 fl (80-96); MEAN PLT VOLUME 9.7 fl (7.5-11.1); MONO % 15.4 % (3.8-10.2); NEUT % 74.5 % (42.8-82.8); PLATELET COUNT 163 10^3/uL (134-434); RBC 4.43 M/mm3 (3.60-5.2); RDW 16.3 % (11.6-15.6); WHITE BLOOD COUNT 17.4 K/mm3 (4.0-10.0)
[2023-04-01 07:31] LABS: INR 1.26 (0.83-1.09); PROTHROMBIN TIME (PATIENT) 14.6 SEC (9.7-13.0)
[2023-04-01 09:48] VITALS: TEMP 98.8
[2023-04-01] MEDS: MIRTAZAPINE 15 MG TABLET (FP) PO SCH (09:54)
[2023-04-01] MEDS: predniSONE 20 MG TABLET (UD) PO SCH (09:54)
[2023-04-01] MEDS: ESCITALOPRAM OXALATE 10 MG TABLET PO SCH (09:54)
[2023-04-01] MEDS: POTASSIUM CHLORIDE TABS 10 MEQ TABLET.ER (FP) PO SCH (09:54)
[2023-04-01] MEDS: MONTELUKAST NA 10 MG TABLET PO SCH (09:54)
[2023-04-01] MEDS: NYSTATIN 500,000 UNITS/5 ML SUSPENSION PO SCH (09:54)
[2023-04-01] MEDS: METOLAZONE 5 MG TABLET PO SCH (09:55)
[2023-04-01] MEDS: guaiFENesin 600 MG TABLET.ER (FP) PO SCH (09:57)
[2023-04-01 13:37] VITALS: BP 116/62; PULSE 90; RESP 18
== END 2023-04-01 13:42 | DRG 291 ==
LOC: JER 14:29 → JERBED 15:50 → J4W 22:00
PROVIDERS: ADMIT Internal Medicine; ATTEND Family Medicine
DX: I11.0 Hypertensive heart disease with heart failure (principal); I50.33 Acute on chronic diastolic (congestive) heart failure; J96.21 Acute and chronic respiratory failure with hypoxia; J96.22 Acute and chronic respiratory failure with hypercapnia; J18.9 Pneumonia, unspecified organism; I48.92 Unspecified atrial flutter; D62 Acute posthemorrhagic anemia; I24.8 Other forms of acute ischemic heart disease; E87.20 Acidosis, unspecified; J44.1 Chronic obstructive pulmonary disease with (acute) exacerbation; J44.0 Chronic obstructive pulmonary disease with (acute) lower respiratory infection; E78.5 Hyperlipidemia, unspecified; R60.0 Localized edema; E05.90 Thyrotoxicosis, unspecified without thyrotoxic crisis or storm; G30.9 Alzheimer's disease, unspecified; F02.80 Dementia in other diseases classified elsewhere, unspecified severity, without behavioral disturbance, psychotic disturbance, mood disturbance, and anxiety; I48.91 Unspecified atrial fibrillation; K21.9 Gastro-esophageal reflux disease without esophagitis; I25.10 Atherosclerotic heart disease of native coronary artery without angina pectoris; E11.51 Type 2 diabetes mellitus with diabetic peripheral angiopathy without gangrene; K76.0 Fatty (change of) liver, not elsewhere classified; F41.8 Other specified anxiety disorders; N63.0 Unspecified lump in unspecified breast; E87.70 Fluid overload, unspecified; Z95.2 Presence of prosthetic heart valve; Z86.718 Personal history of other venous thrombosis and embolism
CPT/HCPCS: 0241U-QW; 36415; 36600; 71045-TC-FY; 80048; 80053; 82803; 82962; 83735; 83880; 84100; 84439; 84443; 84481; 84484; 85025; 85610; 85730; 86850; 86900; 86901; 87635; 93005; 93010; 93971; 94640; 94660; 97162-GP; 99285-25

== ENCOUNTER 2023-05-19 16:33 | Observation (INO) | payer OTHER ==
[2023-05-19 17:31] VITALS: BMI 32.3
[2023-05-19 20:17] LABS: BASO % 0.4 % (0-2.0); EOS % 0.5 % (0-4.5); HEMOGLOBIN 14.5 GM/dL (10.7-15.3); LYMPH % 9.6 % (8-40); MCH 28.8 pg (25.7-33.7); MCHC 32.3 g/dl (32.0-36.0); MEAN CELL VOLUME 89.2 fl (80-96); MEAN PLT VOLUME 9.3 fl (7.5-11.1); MONO % 4.6 % (3.8-10.2); NEUT % 84.9 % (42.8-82.8); PLATELET COUNT 142 10^3/uL (134-434); RBC 5.05 M/mm3 (3.60-5.2); RDW 18.5 % (11.6-15.6); WHITE BLOOD COUNT 10.8 K/mm3 (4.0-10.0)
[2023-05-19 20:23] LABS: INR 1.89 (0.83-1.09); PROTHROMBIN TIME (PATIENT) 21.8 SEC (9.7-13.0)
[2023-05-19 20:26] LABS: ACTIVATED PTT 30.7 SECONDS (25.2-36.5)
[2023-05-19 20:31] LABS: POTASSIUM 3.5 mmol/L (3.5-5.1)
[2023-05-19 20:34] LABS: CALCIUM 9.1 mg/dL (8.5-10.1)
[2023-05-19 20:35] LABS: BLOOD UREA NITROGEN 56.3 mg/dL (7-18)
[2023-05-19 20:38] LABS: CREATININE 1.2 mg/dL (0.55-1.3)
[2023-05-19 20:39] LABS: TOT PROT 6.6 g/dl (6.4-8.2)
[2023-05-19] MEDS ORDERED: SODIUM CHLORIDE 0.9% 500 ML INFUS.BAG IV ONE (21:33)
[2023-05-19] MEDS ORDERED: ACETAMINOPHEN 325 MG TABLET (FP) PO PRN (22:43)
[2023-05-20] MEDS ORDERED: WARFARIN NA 3 MG TABLET PO SCH (01:32)
[2023-05-20] MEDS ORDERED: WARFARIN NA 1 MG TABLET ONE (03:39)
[2023-05-20] MEDS ORDERED: MAG HYDROX/AL HYDROX/SIMETH 30 ML UNIT-DOSE CUP PO PRN (05:14)
[2023-05-20 06:58] LABS: BASO % 0.2 % (0-2.0); EOS % 1.2 % (0-4.5); HEMATOCRIT 44.9 % (32.4-45.2); HEMOGLOBIN 14.7 GM/dL (10.7-15.3); LYMPH % 18.3 % (8-40); MCH 29.1 pg (25.7-33.7); MCHC 32.9 g/dl (32.0-36.0); MEAN CELL VOLUME 88.7 fl (80-96); MEAN PLT VOLUME 9.4 fl (7.5-11.1); NEUT % 71.3 % (42.8-82.8); PLATELET COUNT 137 10^3/uL (134-434); RBC 5.06 M/mm3 (3.60-5.2); RDW 18.5 % (11.6-15.6); WHITE BLOOD COUNT 9.9 K/mm3 (4.0-10.0)
[2023-05-20 07:01] LABS: INR 1.78 (0.83-1.09); PROTHROMBIN TIME (PATIENT) 20.5 SEC (9.7-13.0)
[2023-05-20 07:31] LABS: POTASSIUM 3.3 mmol/L (3.5-5.1)
[2023-05-20 07:32] LABS: CALCIUM 9.1 mg/dL (8.5-10.1)
[2023-05-20 07:33] LABS: BLOOD UREA NITROGEN 51.1 mg/dL (7-18); MAGNESIUM 2.2 mg/dL (1.8-2.4)
[2023-05-20 07:36] LABS: PHOSPHOROUS 3.2 mg/dL (2.5-4.9)
[2023-05-20] MEDS: ALBUTEROL SO4 2.5/IPRATROPIUM 0.5 INH SOL 3 ML VIAL.NEB. NEB SCH ×3 (08:00→20:35)
[2023-05-20] MEDS: prednisoLONE ACETATE 1% OPHTH SUSP 5 ML BOTTLE OD SCH ×3 (10:00→21:23)
[2023-05-20] MEDS: NYSTATIN POWDER 100,000 UNITS/GM - 15 GM TOPICAL POWDER TP SCH ×2 (10:00→21:43)
[2023-05-20] MEDS ORDERED: predniSONE 20 MG TABLET (UD) ONE (10:17)
[2023-05-20] MEDS ORDERED: POTASSIUM CHLORIDE TABS 10 MEQ TABLET.ER (FP) ONE (10:18)
[2023-05-20] MEDS ORDERED: MONTELUKAST NA 10 MG TABLET ONE (10:18)
[2023-05-20] MEDS ORDERED: POTASSIUM CHLORIDE TABS 20 MEQ TABLET.ER (FP) PO ONE (10:18)
[2023-05-20] MEDS ORDERED: MIRTAZAPINE 15 MG TABLET (FP) ONE (10:19)
[2023-05-20] MEDS: predniSONE 20 MG TABLET (UD) PO SCH (10:27)
[2023-05-20] MEDS: POTASSIUM CHLORIDE TABS 10 MEQ TABLET.ER (FP) PO SCH ×2 (10:28→21:15)
[2023-05-20] MEDS: ESCITALOPRAM OXALATE 10 MG TABLET PO SCH (10:28)
[2023-05-20] MEDS: MONTELUKAST NA 10 MG TABLET PO SCH (10:29)
[2023-05-20] MEDS: MIRTAZAPINE 15 MG TABLET (FP) PO SCH (10:29)
[2023-05-20] MEDS ORDERED: POTASSIUM CHLORIDE ORAL LIQUID 20 MEQ/15 ML PO ONE ×2 (10:57→11:15)
[2023-05-20] MEDS ORDERED: POTASSIUM CHLORIDE ORAL LIQUID 20 MEQ/15 ML ONE (14:17)
[2023-05-20] MEDS ORDERED: FUROSEMIDE 40 MG TABLET (FP) ONE (14:17)
[2023-05-20] MEDS: FUROSEMIDE 40 MG TABLET (FP) PO SCH (14:34)
[2023-05-20] MEDS ORDERED: WARFARIN NA 5 MG TABLET PO SCH (18:00)
[2023-05-20] MEDS ORDERED: SENNOSIDES 8.8 MG/5 ML SYRUP PO SCH (22:00)
[2023-05-20] MEDS ORDERED: ATORVASTATIN CA 10 MG TABLET (FP) PO SCH ×2 (22:00)
[2023-05-21] MEDS: FUROSEMIDE 40 MG TABLET (FP) PO SCH (06:21)
[2023-05-21] MEDS: prednisoLONE ACETATE 1% OPHTH SUSP 5 ML BOTTLE OD SCH ×2 (07:10→10:31)
[2023-05-21] MEDS: ALBUTEROL SO4 2.5/IPRATROPIUM 0.5 INH SOL 3 ML VIAL.NEB. NEB SCH ×3 (07:11→11:40)
[2023-05-21 07:59] LABS: BASO % 0.5 % (0-2.0); EOS % 1.5 % (0-4.5); HEMATOCRIT 46.5 % (32.4-45.2); HEMOGLOBIN 15.1 GM/dL (10.7-15.3); LYMPH % 14.5 % (8-40); MCHC 32.5 g/dl (32.0-36.0); MEAN CELL VOLUME 89.2 fl (80-96); MEAN PLT VOLUME 9.1 fl (7.5-11.1); MONO % 8.9 % (3.8-10.2); NEUT % 74.6 % (42.8-82.8); PLATELET COUNT 133 10^3/uL (134-434); RBC 5.21 M/mm3 (3.60-5.2); RDW 18.3 % (11.6-15.6); WHITE BLOOD COUNT 11.2 K/mm3 (4.0-10.0)
[2023-05-21 08:40] LABS: POTASSIUM 4.2 mmol/L (3.5-5.1)
[2023-05-21 08:43] LABS: BLOOD UREA NITROGEN 44.8 mg/dL (7-18); MAGNESIUM 2.2 mg/dL (1.8-2.4)
[2023-05-21 08:47] LABS: BILIRUBIN,TOTAL 0.8 mg/dL (0.2-1); CALCIUM 9.2 mg/dL (8.5-10.1)
[2023-05-21 08:48] LABS: TOT PROT 6.9 g/dl (6.4-8.2)
[2023-05-21 09:37] VITALS: BP 115/72; PULSE 84; RESP 18; TEMP 98
[2023-05-21] MEDS: MONTELUKAST NA 10 MG TABLET PO SCH (09:38)
[2023-05-21] MEDS: POTASSIUM CHLORIDE TABS 10 MEQ TABLET.ER (FP) PO SCH (09:38)
[2023-05-21] MEDS: MIRTAZAPINE 15 MG TABLET (FP) PO SCH (09:39)
[2023-05-21] MEDS: predniSONE 20 MG TABLET (UD) PO SCH (09:39)
[2023-05-21] MEDS: ESCITALOPRAM OXALATE 10 MG TABLET PO SCH (09:39)
[2023-05-21] MEDS ORDERED: RANOLAZINE E.R. 500 MG TABLET (FP) PO SCH (10:00)
[2023-05-21] MEDS: NYSTATIN POWDER 100,000 UNITS/GM - 15 GM TOPICAL POWDER TP SCH (10:32)
[2023-05-21] MEDS ORDERED: NYSTATIN 500,000 UNITS/5 ML SUSPENSION PO SCH (12:00)
== END 2023-05-21 12:57 ==
LOC: JER 16:33 → JERBED 19:46 → J4W 05-20 17:12
PROVIDERS: ADMIT Internal Medicine; ATTEND Family Medicine
PROC: 3E0F7GC Introduction of Other Therapeutic Substance into Respiratory Tract, Via Natural or Artificial Opening (ICD-10-PCS; principal; 2023-05-19)
PROC: 3E0337Z Introduction of Electrolytic and Water Balance Substance into Peripheral Vein, Percutaneous Approach (ICD-10-PCS; 2023-05-19)
DX: I48.91 Unspecified atrial fibrillation (principal); E78.5 Hyperlipidemia, unspecified; Z79.01 Long term (current) use of anticoagulants; G30.1 Alzheimer's disease with late onset; F02.80 Dementia in other diseases classified elsewhere, unspecified severity, without behavioral disturbance, psychotic disturbance, mood disturbance, and anxiety; I11.0 Hypertensive heart disease with heart failure; I50.9 Heart failure, unspecified; F33.9 Major depressive disorder, recurrent, unspecified; I34.0 Nonrheumatic mitral (valve) insufficiency; I38 Endocarditis, valve unspecified; M19.90 Unspecified osteoarthritis, unspecified site; R68.89 Other general symptoms and signs; Z86.718 Personal history of other venous thrombosis and embolism; J44.9 Chronic obstructive pulmonary disease, unspecified; Z88.5 Allergy status to narcotic agent; Z88.0 Allergy status to penicillin; R74.8 Abnormal levels of other serum enzymes; Z95.2 Presence of prosthetic heart valve; K21.9 Gastro-esophageal reflux disease without esophagitis
CPT/HCPCS: 36415; 71045-TC-FY; 80048; 80053; 83735; 84100; 84484; 85025; 85610; 85730; 93005; 93010; 94640; 99285-25; G0378

== ENCOUNTER 2023-06-06 13:40 | Inpatient (IN) | payer OTHER ==
[2023-06-06 15:15] LABS: HEMOGLOBIN 15.6 GM/dL (10.7-15.3); MCH 28.9 pg (25.7-33.7); MCHC 32.5 g/dl (32.0-36.0); MEAN CELL VOLUME 88.8 fl (80-96); MEAN PLT VOLUME 9.8 fl (7.5-11.1); PLATELET COUNT 134 10^3/uL (134-434); RBC 5.41 M/mm3 (3.60-5.2); RDW 19.4 % (11.6-15.6); WHITE BLOOD COUNT 28.5 K/mm3 (4.0-10.0)
[2023-06-06 15:28] LABS: INR 2.32 (0.83-1.09); PROTHROMBIN TIME (PATIENT) 26.7 SEC (9.7-13.0)
[2023-06-06 15:32] LABS: CHLORIDE 87 mmol/L (98-107); POTASSIUM 3.3 mmol/L (3.5-5.1); SODIUM 136 mmol/L (136-145)
[2023-06-06 15:34] LABS: CALCIUM 9.1 mg/dL (8.5-10.1)
[2023-06-06 15:35] LABS: ALBUMIN 2.8 g/dl (3.4-5.0); ANION GAP 12 MMOL/L (8-16); CO2 37 mmol/L (21-32)
[2023-06-06 15:36] LABS: GLUCOSE,RANDOM 236 mg/dL (74-106)
[2023-06-06 15:37] LABS: CREATININE 2.6 mg/dL (0.55-1.3); SGOT/AST 45 U/L (15-37); SGPT/ALT 21 U/L (13-61)
[2023-06-06 15:38] LABS: EPI CELLS 7 /uL (0-25.1); HYALINE CASTS 1 /uL (0-3.1); URINE APPEARANCE CLOUDY; URINE BACTERIA 4770 /uL (0-1359); URINE BILIRUBIN 1+ (NEGATIVE); URINE COLOR DK YELLOW; URINE GLUCOSE (UA) NEGATIVE (NEGATIVE); URINE KETONE NEGATIVE (NEGATIVE); URINE LEUK ESTERASE 3+ (NEGATIVE); URINE NITRITE NEGATIVE (NEGATIVE); URINE PROTEIN 2+ (NEGATIVE); URINE WBC 568 /uL (0-25.8)
[2023-06-06 15:39] LABS: CHOLESTEROL 172 mg/dL (50-200)
[2023-06-06 15:40] LABS: URINE RBC 30.9 /uL (0-23.9); YEAST NEGATIVE (NEGATIVE)
[2023-06-06 15:41] LABS: ALK PHOS 145 U/L (45-117); BILIRUBIN,TOTAL 2.4 mg/dL (0.2-1); LDL CHOLESTEROL (ONLY SJRH) 121 mg/dL (5-100)
[2023-06-06 15:42] LABS: HDL CHOLESTEROL 28 mg/dL (40-60)
[2023-06-06 15:46] LABS: BLOOD UREA NITROGEN 107.7 mg/dL (7-18)
[2023-06-06 15:50] LABS: ANISOCYTOSIS 1+; MACROCYTOSIS 0
[2023-06-06] MEDS ORDERED: VANCOMYCIN HCL 1,500 MG in DEXTROSE 5%-WATER - 500 ML IVPB ONE (15:57)
[2023-06-06] MEDS ORDERED: ERTAPENEM SODIUM 1 GM in SODIUM CHLORIDE 50 ML IVPB ONE (15:57)
[2023-06-06 16:01] LABS: LACTIC ACID 2.2 mmol/L (0.4-2.0)
[2023-06-06] MEDS ORDERED: SODIUM CHLORIDE 0.9%/KCL 20 MEQ/1,000 ML INFUS.BAG IV ONE (16:01)
[2023-06-06] MEDS ORDERED: VANCOMYCIN 500 MG VIAL (RESTRICTED TO ID ONLY) ONE (16:02)
[2023-06-06] MEDS ORDERED: ERTAPENEM SODIUM 1 GM VIAL ONE (16:02)
[2023-06-06] MEDS ORDERED: VANCOMYCIN 1 GRAM (PRE-DOCKED) 1,000 MG/250 ML BAG IVPB ONE (16:03)
[2023-06-06] MEDS ORDERED: KCL 10 MEQ IVPB 10 MEQ/100 ML INFUS.BAG IVPB ONE (18:39)
[2023-06-06] MEDS: KCL 10 MEQ IVPB 10 MEQ/100 ML INFUS.BAG IVPB SCH ×2 (18:45→21:28)
[2023-06-06] MEDS ORDERED: KCL 10 MEQ IVPB 20 MEQ/200 ML INFUS.BAG IVPB ONE (18:50)
[2023-06-06 19:22] LABS: POTASSIUM 3.4 mmol/L (3.5-5.1)
[2023-06-06 19:24] LABS: BLOOD UREA NITROGEN 101.8 mg/dL (7-18); CALCIUM 8.7 mg/dL (8.5-10.1)
[2023-06-06 19:27] LABS: CREATININE 2.4 mg/dL (0.55-1.3)
[2023-06-06] MEDS: ALBUTEROL SO4 2.5/IPRATROPIUM 0.5 INH SOL 3 ML VIAL.NEB. NEB SCH (21:05)
[2023-06-06] MEDS ORDERED: ATORVASTATIN CA 20 MG TABLET (FP) ONE (21:30)
[2023-06-06] MEDS ORDERED: MONTELUKAST NA 10 MG TABLET ONE (21:30)
[2023-06-06] MEDS ORDERED: ALBUTEROL SO4 2.5/IPRATROPIUM 0.5 INH SOL 3 ML VIAL.NEB. NEB ONE (21:30)
[2023-06-06] MEDS ORDERED: MIRTAZAPINE 15 MG TABLET (FP) ONE (21:31)
[2023-06-06] MEDS: ATORVASTATIN CA 10 MG TABLET (FP) PO SCH (21:40)
[2023-06-06] MEDS: MIRTAZAPINE 15 MG TABLET (FP) PO SCH (21:42)
[2023-06-06] MEDS: MONTELUKAST NA 10 MG TABLET PO SCH (21:42)
[2023-06-06] MEDS: INSULIN (NOVOLOG) ASPART 100 UNITS/ML 10ML VIAL SQ SCH (21:42)
[2023-06-06] MEDS ORDERED: PATIENT'S OWN MEDICATION (NON-FORMULARY) (Furosemide [Lasix] 80 MG Tablet) PO SCH (22:00)
[2023-06-07] MEDS: SODIUM CHLORIDE 0.9%/KCL 20 MEQ/1,000 ML INFUS.BAG IV SCH ×3 (00:08→22:43)
[2023-06-07 01:29] VITALS: BMI 28.2
[2023-06-07] MEDS ORDERED: FUROSEMIDE 40 MG TABLET (FP) PO SCH (06:00)
[2023-06-07] MEDS: INSULIN (NOVOLOG) ASPART 100 UNITS/ML 10ML VIAL SQ SCH ×4 (07:00→23:00)
[2023-06-07] MEDS: ALBUTEROL SO4 2.5/IPRATROPIUM 0.5 INH SOL 3 ML VIAL.NEB. NEB SCH ×4 (07:40→20:05)
[2023-06-07] MEDS: predniSONE 20 MG TABLET (UD) PO SCH (09:49)
[2023-06-07] MEDS: METHIMAZOLE 5 MG TABLET PO SCH (09:49)
[2023-06-07] MEDS: ESCITALOPRAM OXALATE 10 MG TABLET PO SCH (09:49)
[2023-06-07] MEDS: KCL 10 MEQ IVPB 10 MEQ/100 ML INFUS.BAG IVPB SCH (09:50)
[2023-06-07] MEDS ORDERED: PATIENT'S OWN MEDICATION (NON-FORMULARY) (Mirtazapine [Mirtazapine] 7.5 MG Tablet) PO SCH (10:00)
[2023-06-07] MEDS ORDERED: DILTIAZEM HCL PO SCH (10:00)
[2023-06-07] MEDS ORDERED: BROMFENAC SODIUM OD SCH (10:00)
[2023-06-07] MEDS: MEROPENEM 500 MG in DEXTROSE 5%-WATER 100 ML IVPB SCH ×2 (10:37→17:17)
[2023-06-07 10:42] LABS: HEMOGLOBIN 15.1 GM/dL (10.7-15.3); MCH 29.2 pg (25.7-33.7); MCHC 32.8 g/dl (32.0-36.0); MEAN CELL VOLUME 88.9 fl (80-96); MEAN PLT VOLUME 9.2 fl (7.5-11.1); PLATELET COUNT 113 10^3/uL (134-434); RBC 5.17 M/mm3 (3.60-5.2); RDW 19.9 % (11.6-15.6); WHITE BLOOD COUNT 26.7 K/mm3 (4.0-10.0)
[2023-06-07] MEDS ORDERED: INSULIN (NOVOLOG) ASPART 100 UNITS/ML 10ML VIAL ONE ×2 (11:12→16:45)
[2023-06-07 12:07] LABS: ANISOCYTOSIS 1+; MACROCYTOSIS 0
[2023-06-07 13:12] LABS: POTASSIUM 4.2 mmol/L (3.5-5.1)
[2023-06-07 13:15] LABS: CALCIUM 8.8 mg/dL (8.5-10.1)
[2023-06-07 13:17] LABS: ALBUMIN 2.5 g/dl (3.4-5.0); BLOOD UREA NITROGEN 103.7 mg/dL (7-18); MAGNESIUM 2.6 mg/dL (1.8-2.4)
[2023-06-07 13:19] LABS: CREATININE 1.8 mg/dL (0.55-1.3)
[2023-06-07 13:21] LABS: BILIRUBIN,TOTAL 1.6 mg/dL (0.2-1); TOT PROT 6.3 g/dl (6.4-8.2)
[2023-06-07] MEDS: WARFARIN NA 3 MG TABLET PO SCH (17:45)
[2023-06-07] MEDS: ATORVASTATIN CA 10 MG TABLET (FP) PO SCH (22:42)
[2023-06-07] MEDS: MONTELUKAST NA 10 MG TABLET PO SCH (22:42)
[2023-06-07] MEDS: MIRTAZAPINE 15 MG TABLET (FP) PO SCH (22:44)
[2023-06-08] MEDS: MEROPENEM 500 MG in DEXTROSE 5%-WATER 100 ML IVPB SCH ×3 (02:40→17:43)
[2023-06-08] MEDS: ALBUTEROL SO4 2.5/IPRATROPIUM 0.5 INH SOL 3 ML VIAL.NEB. NEB SCH ×4 (07:45→20:41)
[2023-06-08] MEDS: INSULIN (NOVOLOG) ASPART 100 UNITS/ML 10ML VIAL SQ SCH ×5 (08:11→22:50)
[2023-06-08] MEDS: METHIMAZOLE 5 MG TABLET PO SCH (09:40)
[2023-06-08] MEDS: ESCITALOPRAM OXALATE 10 MG TABLET PO SCH (09:40)
[2023-06-08] MEDS: predniSONE 20 MG TABLET (UD) PO SCH (09:40)
[2023-06-08] MEDS: SODIUM CHLORIDE 0.9%/KCL 20 MEQ/1,000 ML INFUS.BAG IV SCH (09:43)
[2023-06-08 12:32] LABS: BASO % 0.1 % (0-2.0); EOS % 0.9 % (0-4.5); HEMATOCRIT 41.2 % (32.4-45.2); HEMOGLOBIN 13.6 GM/dL (10.7-15.3); LYMPH % 5.1 % (8-40); MCHC 32.9 g/dl (32.0-36.0); MEAN CELL VOLUME 88.1 fl (80-96); MEAN PLT VOLUME 9.3 fl (7.5-11.1); MONO % 9.9 % (3.8-10.2); PLATELET COUNT 131 10^3/uL (134-434); RBC 4.68 M/mm3 (3.60-5.2); RDW 19.4 % (11.6-15.6); WHITE BLOOD COUNT 16.4 K/mm3 (4.0-10.0)
[2023-06-08 12:49] LABS: POTASSIUM 3.2 mmol/L (3.5-5.1)
[2023-06-08 12:50] LABS: CALCIUM 8.9 mg/dL (8.5-10.1)
[2023-06-08 12:51] LABS: ALBUMIN 2.3 g/dl (3.4-5.0); BLOOD UREA NITROGEN 84.7 mg/dL (7-18)
[2023-06-08 12:55] LABS: CREATININE 1.4 mg/dL (0.55-1.3)
[2023-06-08 12:56] LABS: TOT PROT 5.8 g/dl (6.4-8.2)
[2023-06-08] MEDS: WARFARIN NA 3 MG TABLET PO SCH (17:42)
[2023-06-08] MEDS: MIRTAZAPINE 15 MG TABLET (FP) PO SCH (22:50)
[2023-06-08] MEDS: ATORVASTATIN CA 10 MG TABLET (FP) PO SCH (22:50)
[2023-06-08] MEDS: MONTELUKAST NA 10 MG TABLET PO SCH (22:50)
[2023-06-09] MEDS: SODIUM CHLORIDE 0.9%/KCL 20 MEQ/1,000 ML INFUS.BAG IV SCH ×2 (00:31→13:45)
[2023-06-09] MEDS: MEROPENEM 500 MG in DEXTROSE 5%-WATER 100 ML IVPB SCH ×3 (02:47→17:20)
[2023-06-09] MEDS: INSULIN (NOVOLOG) ASPART 100 UNITS/ML 10ML VIAL SQ SCH ×4 (06:07→22:14)
[2023-06-09] MEDS: ALBUTEROL SO4 2.5/IPRATROPIUM 0.5 INH SOL 3 ML VIAL.NEB. NEB SCH ×4 (07:30→20:03)
[2023-06-09] MEDS: ESCITALOPRAM OXALATE 10 MG TABLET PO SCH (09:05)
[2023-06-09] MEDS: predniSONE 20 MG TABLET (UD) PO SCH (09:05)
[2023-06-09] MEDS: METHIMAZOLE 5 MG TABLET PO SCH (09:05)
[2023-06-09 09:29] LABS: HEMATOCRIT 39.3 % (32.4-45.2); HEMOGLOBIN 12.7 GM/dL (10.7-15.3); MCH 28.9 pg (25.7-33.7); MCHC 32.3 g/dl (32.0-36.0); MEAN CELL VOLUME 89.6 fl (80-96); MEAN PLT VOLUME 9.3 fl (7.5-11.1); PLATELET COUNT 130 10^3/uL (134-434); RBC 4.39 M/mm3 (3.60-5.2); RDW 19.9 % (11.6-15.6); WHITE BLOOD COUNT 11.4 K/mm3 (4.0-10.0)
[2023-06-09 09:35] LABS: PROTHROMBIN TIME (PATIENT) 56.8 SEC (9.7-13.0)
[2023-06-09 09:47] LABS: POTASSIUM 3.5 mmol/L (3.5-5.1)
[2023-06-09 09:50] LABS: CALCIUM 8.5 mg/dL (8.5-10.1)
[2023-06-09 09:52] LABS: BLOOD UREA NITROGEN 66.2 mg/dL (7-18)
[2023-06-09 10:03] LABS: INR 4.97 (0.83-1.09)
[2023-06-09 10:44] LABS: ANISOCYTOSIS 0; MACROCYTOSIS 0
[2023-06-09] MEDS: DEXTROSE 5%-WATER - 1,000 ML with POTASSIUM CHLORIDE 20 MEQ IV SCH (16:41)
[2023-06-09] MEDS: WARFARIN NA 3 MG TABLET PO SCH (17:25)
[2023-06-09] MEDS: ATORVASTATIN CA 10 MG TABLET (FP) PO SCH (22:17)
[2023-06-09] MEDS: MONTELUKAST NA 10 MG TABLET PO SCH (22:17)
[2023-06-09] MEDS: MIRTAZAPINE 15 MG TABLET (FP) PO SCH (22:17)
[2023-06-10] MEDS: MEROPENEM 500 MG in DEXTROSE 5%-WATER 100 ML IVPB SCH ×3 (02:53→18:48)
[2023-06-10] MEDS: DEXTROSE 5%-WATER - 1,000 ML with POTASSIUM CHLORIDE 20 MEQ IV SCH (03:45)
[2023-06-10] MEDS: INSULIN (NOVOLOG) ASPART 100 UNITS/ML 10ML VIAL SQ SCH ×4 (07:12→22:06)
[2023-06-10] MEDS: ALBUTEROL SO4 2.5/IPRATROPIUM 0.5 INH SOL 3 ML VIAL.NEB. NEB SCH ×4 (08:12→20:05)
[2023-06-10 11:35] LABS: POTASSIUM 3.5 mmol/L (3.5-5.1)
[2023-06-10] MEDS: ESCITALOPRAM OXALATE 10 MG TABLET PO SCH (11:40)
[2023-06-10] MEDS: METHIMAZOLE 5 MG TABLET PO SCH (11:42)
[2023-06-10] MEDS: predniSONE 20 MG TABLET (UD) PO SCH (11:42)
[2023-06-10 11:45] LABS: ALBUMIN 2.3 g/dl (3.4-5.0); CALCIUM 8.5 mg/dL (8.5-10.1)
[2023-06-10 11:46] LABS: BLOOD UREA NITROGEN 46.8 mg/dL (7-18)
[2023-06-10 11:49] LABS: TOT PROT 5.8 g/dl (6.4-8.2)
[2023-06-10 11:51] LABS: BILIRUBIN,TOTAL 1.1 mg/dL (0.2-1)
[2023-06-10] MEDS: WARFARIN NA 3 MG TABLET PO SCH (18:49)
[2023-06-10] MEDS: ATORVASTATIN CA 10 MG TABLET (FP) PO SCH (22:05)
[2023-06-10] MEDS: MIRTAZAPINE 15 MG TABLET (FP) PO SCH (22:05)
[2023-06-10] MEDS: MONTELUKAST NA 10 MG TABLET PO SCH (22:06)
[2023-06-11] MEDS: DEXTROSE 5%-WATER - 1,000 ML with POTASSIUM CHLORIDE 20 MEQ IV SCH ×4 (04:38→22:10)
[2023-06-11] MEDS: MEROPENEM 500 MG in DEXTROSE 5%-WATER 100 ML IVPB SCH ×3 (04:41→17:04)
[2023-06-11] MEDS: INSULIN (NOVOLOG) ASPART 100 UNITS/ML 10ML VIAL SQ SCH ×4 (06:36→22:06)
[2023-06-11] MEDS: ALBUTEROL SO4 2.5/IPRATROPIUM 0.5 INH SOL 3 ML VIAL.NEB. NEB SCH ×3 (07:40→15:10)
[2023-06-11] MEDS: ESCITALOPRAM OXALATE 10 MG TABLET PO SCH (10:10)
[2023-06-11] MEDS: predniSONE 20 MG TABLET (UD) PO SCH (10:10)
[2023-06-11] MEDS: METHIMAZOLE 5 MG TABLET PO SCH (10:10)
[2023-06-11 16:13] LABS: INR 3.59 (0.83-1.09); PROTHROMBIN TIME (PATIENT) 41.1 SEC (9.7-13.0)
[2023-06-11] MEDS ORDERED: ALBUTEROL SO4 2.5/IPRATROPIUM 0.5 INH SOL 3 ML VIAL.NEB. NEB ONE (20:15)
[2023-06-11] MEDS ORDERED: INSULIN (NOVOLOG) ASPART 100 UNITS/ML 10ML VIAL ONE (21:05)
[2023-06-11] MEDS: MONTELUKAST NA 10 MG TABLET PO SCH (22:05)
[2023-06-11] MEDS: MIRTAZAPINE 15 MG TABLET (FP) PO SCH (22:05)
[2023-06-11] MEDS: ATORVASTATIN CA 10 MG TABLET (FP) PO SCH (22:05)
[2023-06-12] MEDS: MEROPENEM 500 MG in DEXTROSE 5%-WATER 100 ML IVPB SCH ×2 (01:40→09:05)
[2023-06-12] MEDS: DEXTROSE 5%-WATER - 1,000 ML with POTASSIUM CHLORIDE 20 MEQ IV SCH (03:20)
[2023-06-12] MEDS: INSULIN (NOVOLOG) ASPART 100 UNITS/ML 10ML VIAL SQ SCH ×2 (06:20→11:29)
[2023-06-12 08:43] LABS: POTASSIUM 4.1 mmol/L (3.5-5.1)
[2023-06-12 08:46] LABS: BLOOD UREA NITROGEN 29.1 mg/dL (7-18); CALCIUM 8.3 mg/dL (8.5-10.1)
[2023-06-12 08:49] LABS: CREATININE 0.7 mg/dL (0.55-1.3)
[2023-06-12] MEDS: predniSONE 20 MG TABLET (UD) PO SCH (09:04)
[2023-06-12] MEDS: ESCITALOPRAM OXALATE 10 MG TABLET PO SCH (09:05)
[2023-06-12] MEDS: METHIMAZOLE 5 MG TABLET PO SCH (09:05)
[2023-06-12 14:38] VITALS: BP 111/62; PULSE 84; RESP 16; TEMP 99.3
== END 2023-06-12 17:14 | DRG 871 ==
LOC: JER 13:40 → JERBED 16:03 → J6S 21:59
PROVIDERS: ADMIT Internal Medicine; ATTEND Internal Medicine
PROC: 05HB33Z Insertion of Infusion Device into Right Basilic Vein, Percutaneous Approach (ICD-10-PCS; principal; 2023-06-11)
DX: A41.59 Other Gram-negative sepsis (principal); G92.8 Other toxic encephalopathy; N17.9 Acute kidney failure, unspecified; I24.8 Other forms of acute ischemic heart disease; I10 Essential (primary) hypertension; E03.9 Hypothyroidism, unspecified; I48.91 Unspecified atrial fibrillation; D72.829 Elevated white blood cell count, unspecified; F03.90 Unspecified dementia, unspecified severity, without behavioral disturbance, psychotic disturbance, mood disturbance, and anxiety; E11.9 Type 2 diabetes mellitus without complications; K21.9 Gastro-esophageal reflux disease without esophagitis
CPT/HCPCS: 0241U-QW; 36415; 70450-TC; 71045-TC-FY; 76775-TC; 80048; 80053; 80061; 81003; 82550; 82962; 83036; 83605; 83735; 84100; 84484; 85025; 85610; 85730; 86850; 86900; 86901; 87040; 87086; 87186; 87635; 93005; 93010; 94640; 99285-25

== ENCOUNTER 2024-02-11 09:55 | Inpatient (IN) | payer OTHER ==
[2024-02-11] MEDS ORDERED: DEXTROSE 50%-WATER 25 GM/50 ML DISP.SYRIN ONE (10:30)
[2024-02-11] MEDS ORDERED: ACETAMINOPHEN INJECTION 100 ML IVPB ONE (11:20)
[2024-02-11 11:25] LABS: HEMATOCRIT 40.8 % (32.4-45.2); HEMOGLOBIN 13.2 GM/dL (10.7-15.3); MCH 31.5 pg (25.7-33.7); MCHC 32.2 g/dl (32.0-36.0); MEAN CELL VOLUME 97.8 fl (80-96); MEAN PLT VOLUME 9.1 fl (7.5-11.1); PLATELET COUNT 103 10^3/uL (134-434); RBC 4.18 M/mm3 (3.60-5.2); RDW 15.2 % (11.6-15.6); VENOUS BASE EXCESS 4.7 mmol/L (-2-2); VENOUS O2 SATURATION 65.6 % (70-80); VENOUS PCO2 55.9 mmHg (38-52); VENOUS PH 7.37 (7.310-7.410); WHITE BLOOD COUNT 23.6 K/mm3 (4.0-10.0)
[2024-02-11] MEDS: LACTATED RINGERS SOLUTION 1,000 ML/1,000 ML INFUS.BAG IV STA ×2 (11:33→12:25)
[2024-02-11] MEDS: ACETAMINOPHEN 1000 MG/100 ML BAG IVPB ONE (11:33)
[2024-02-11 11:54] LABS: ACTIVATED PTT 59.4 SECONDS (25.2-36.5)
[2024-02-11] MEDS ORDERED: VANCOMYCIN/WATER 1250 MG 1,250 MG/250 ML BAG IVPB ONE (11:56)
[2024-02-11] MEDS ORDERED: MEROPENEM 1 GM VIAL (RESTRICTED TO ID) IVPB ONE (11:56)
[2024-02-11 11:58] LABS: ANISOCYTOSIS 0; MACROCYTOSIS 0
[2024-02-11 12:18] LABS: PROTHROMBIN TIME (PATIENT) 120.1 SEC (9.7-13.0)
[2024-02-11 12:19] LABS: ALBUMIN 2.2 g/dl (3.4-5.0); BILIRUBIN,TOTAL 1.2 mg/dL (0.2-1); BLOOD UREA NITROGEN 49.8 mg/dL (7-18); CALCIUM 8.8 mg/dL (8.5-10.1); CREATININE 1.7 mg/dL (0.55-1.3); POTASSIUM 5.8 mmol/L (3.5-5.1); TOT PROT 5.4 g/dl (6.4-8.2)
[2024-02-11 12:20] LABS: INR 11.41 (0.83-1.09)
[2024-02-11] MEDS: MEROPENEM 1 GM in DEXTROSE 5%-WATER 100 ML IVPB ONE (12:24)
[2024-02-11] MEDS ORDERED: PHYTONADIONE 10 MG/1 ML AMP ONE ×2 (12:28→12:36)
[2024-02-11] MEDS ORDERED: ALBUTEROL SO4 2.5/IPRATROPIUM 0.5 INH SOL 3 ML VIAL.NEB. NEB ONE (12:33)
[2024-02-11 12:42] LABS: EPI CELLS >36 /uL (0-25.1); HYALINE CASTS 2 /uL (0-3.1); PH,URINE 5.5 (5.0-8.0); URINE APPEARANCE CLEAR; URINE BACTERIA 111 /uL (0-1359); URINE BILIRUBIN NEGATIVE (NEGATIVE); URINE COLOR YELLOW; URINE GLUCOSE (UA) 3+ (NEGATIVE); URINE KETONE NEGATIVE (NEGATIVE); URINE LEUK ESTERASE TRACE (NEGATIVE); URINE NITRITE NEGATIVE (NEGATIVE); URINE PROTEIN 1+ (NEGATIVE); URINE RBC 184 /uL (0-23.9); URINE WBC 69 /uL (0-25.8)
[2024-02-11] MEDS: VANCOMYCIN PREMIX 1.75 GM 1,750 MG/350 ML PIGGYBACK IVPB ONE (12:42)
[2024-02-11] MEDS: ALBUTEROL SO4 2.5/IPRATROPIUM 0.5 INH SOL 3 ML VIAL.NEB. NEB ONE (12:42)
[2024-02-11] MEDS: PHYTONADIONE 10 MG/1 ML AMP IVPB ONE (12:42)
[2024-02-11 15:13] LABS: POTASSIUM 3.4 mmol/L (3.5-5.1)
[2024-02-11 15:15] LABS: BLOOD UREA NITROGEN 41.2 mg/dL (7-18); CALCIUM 8.7 mg/dL (8.5-10.1)
[2024-02-11 15:19] LABS: CREATININE 1.2 mg/dL (0.55-1.3)
[2024-02-11] MEDS: ALBUTEROL SO4 2.5/IPRATROPIUM 0.5 INH SOL 3 ML VIAL.NEB. NEB SCH (20:13)
[2024-02-11] MEDS: MEROPENEM 1 GM in DEXTROSE 5%-WATER 100 ML IVPB SCH (21:21)
[2024-02-11] MEDS: methylPREDNISolone NA SUCC 40 MG/1 ML VIAL IVPUSH SCH (21:21)
[2024-02-11] MEDS: MONTELUKAST NA 10 MG TABLET PO SCH (21:26)
[2024-02-11] MEDS: ATORVASTATIN CA 10 MG TABLET (FP) PO SCH (21:26)
[2024-02-11] MEDS ORDERED: HEPARIN NA (PORCINE) 5,000 UNITS/ML 1ML VIAL SQ SCH (22:00)
[2024-02-12 07:25] LABS: HEMATOCRIT 44.6 % (32.4-45.2); HEMOGLOBIN 14.4 GM/dL (10.7-15.3); MCH 31.6 pg (25.7-33.7); MCHC 32.3 g/dl (32.0-36.0); MEAN CELL VOLUME 97.9 fl (80-96); MEAN PLT VOLUME 9.2 fl (7.5-11.1); PLATELET COUNT 113 10^3/uL (134-434); RBC 4.56 M/mm3 (3.60-5.2); WHITE BLOOD COUNT 23.6 K/mm3 (4.0-10.0)
[2024-02-12 07:48] LABS: POTASSIUM 3.7 mmol/L (3.5-5.1)
[2024-02-12 07:54] LABS: CALCIUM 9.1 mg/dL (8.5-10.1)
[2024-02-12 07:55] LABS: BLOOD UREA NITROGEN 34.9 mg/dL (7-18); MAGNESIUM 2.5 mg/dL (1.8-2.4)
[2024-02-12 07:58] LABS: PHOSPHOROUS 3.5 mg/dL (2.5-4.9)
[2024-02-12 07:59] LABS: TOT PROT 6.1 g/dl (6.4-8.2)
[2024-02-12 08:10] LABS: ALBUMIN 2.6 g/dl (3.4-5.0)
[2024-02-12 09:33] LABS: ANISOCYTOSIS 1+; MACROCYTOSIS 0
[2024-02-12 09:44] LABS: BILIRUBIN,DIRECT 0.8 mg/dL (0.0-0.2)
[2024-02-12] MEDS: METHIMAZOLE 5 MG TABLET PO SCH (10:15)
[2024-02-12] MEDS: VANCOMYCIN/WATER 1250 MG 1,250 MG/250 ML BAG IVPB ONE (11:11)
[2024-02-12] MEDS: MEROPENEM 1 GM in DEXTROSE 5%-WATER 100 ML IVPB SCH ×2 (14:34→18:10)
[2024-02-12] MEDS: methylPREDNISolone NA SUCC 40 MG/1 ML VIAL IVPUSH SCH (18:10)
[2024-02-12] MEDS ORDERED: VANCOMYCIN/WATER FOR INJ (PEG) 1,000 MG/250 ML BAG IVPB SCH (23:00)
[2024-02-12] MEDS: VANCOMYCIN/WATER FOR INJ (PEG) 1,000 MG/200 ML BAG IVPB SCH (23:11)
[2024-02-13] MEDS: VANCOMYCIN 1 GRAM (PRE-DOCKED) 1,000 MG/250 ML BAG IVPB SCH (07:16)
[2024-02-13 08:07] LABS: INR 1.44 (0.83-1.09); PROTHROMBIN TIME (PATIENT) 16.1 SEC (9.7-13.0)
[2024-02-13 08:10] LABS: ACTIVATED PTT 30.6 SECONDS (25.2-36.5)
[2024-02-13 08:16] LABS: HEMATOCRIT 41.7 % (32.4-45.2); HEMOGLOBIN 13.9 GM/dL (10.7-15.3); MCH 32.2 pg (25.7-33.7); MCHC 33.4 g/dl (32.0-36.0); MEAN CELL VOLUME 96.5 fl (80-96); MEAN PLT VOLUME 8.6 fl (7.5-11.1); PLATELET COUNT 104 10^3/uL (134-434); RBC 4.32 M/mm3 (3.60-5.2); RDW 14.8 % (11.6-15.6); WHITE BLOOD COUNT 19.5 K/mm3 (4.0-10.0)
[2024-02-13 08:23] LABS: POTASSIUM 3.2 mmol/L (3.5-5.1)
[2024-02-13 08:34] LABS: CALCIUM 9.4 mg/dL (8.5-10.1)
[2024-02-13 08:35] LABS: ALBUMIN 2.5 g/dl (3.4-5.0); BLOOD UREA NITROGEN 40.9 mg/dL (7-18); MAGNESIUM 2.6 mg/dL (1.8-2.4)
[2024-02-13 08:38] LABS: PHOSPHOROUS 2.7 mg/dL (2.5-4.9)
[2024-02-13 08:39] LABS: TOT PROT 5.9 g/dl (6.4-8.2)
[2024-02-13 08:40] LABS: BILIRUBIN,TOTAL 1.2 mg/dL (0.2-1)
[2024-02-13 08:44] LABS: ANISOCYTOSIS 0; MACROCYTOSIS 0
[2024-02-13] MEDS: KCL 10 MEQ IVPB 10 MEQ/100 ML INFUS.BAG IVPB SCH (15:53)
[2024-02-13] MEDS: POTASSIUM CHLORIDE ORAL LIQUID 20 MEQ/15 ML PO ONE (15:54)
[2024-02-14] MEDS: VANCOMYCIN/WATER FOR INJ (PEG) 1,000 MG/200 ML BAG IVPB SCH (09:09)
[2024-02-14 14:42] LABS: ALBUMIN 2.6 g/dl (3.4-5.0); BILIRUBIN,TOTAL 1.1 mg/dL (0.2-1); BLOOD UREA NITROGEN 54.9 mg/dL (7-18); CALCIUM 9.9 mg/dL (8.5-10.1); CREATININE 1.2 mg/dL (0.55-1.3); POTASSIUM 4.8 mmol/L (3.5-5.1); TOT PROT 6.2 g/dl (6.4-8.2)
[2024-02-14] MEDS: methylPREDNISolone NA SUCC 40 MG/1 ML VIAL IVPUSH SCH (21:16)
[2024-02-15 09:44] LABS: ALBUMIN 2.6 g/dl (3.4-5.0); ALK PHOS 66 U/L (45-117); ANION GAP 5 mmol/L (4-13); BLOOD UREA NITROGEN 64.9 mg/dL (7-18); CALCIUM 9.9 mg/dL (8.5-10.1); CHLORIDE 106 mmol/L (98-107); CO2 28 mmol/L (21-32); CREATININE 1.5 mg/dL (0.55-1.3); GLUCOSE,RANDOM 481 mg/dL (74-106); POTASSIUM 4.5 mmol/L (3.5-5.1); SGOT/AST 22 U/L (15-37); SGPT/ALT 11 U/L (13-61); SODIUM 138 mmol/L (136-145); TOT PROT 5.9 g/dl (6.4-8.2)
[2024-02-15] MEDS: LACTATED RINGERS SOLUTION 1,000 ML/1,000 ML INFUS.BAG IV SCH (11:55)
[2024-02-16] MEDS: KCL 10 MEQ IVPB 10 MEQ/100 ML INFUS.BAG IVPB SCH (08:26)
[2024-02-16] MEDS: methylPREDNISolone NA SUCC 40 MG/1 ML VIAL IVPUSH SCH (10:01)
[2024-02-16] MEDS: ENOXAPARIN NA (PORCINE) 80 MG/0.8 ML DISP.SYRIN SQ ONE (11:07)
[2024-02-16] MEDS: INSULIN (LEVEMIR) 100 UNITS/ML UNITS SQ SCH (11:11)
[2024-02-16] MEDS: INSULIN ASPART SLIDING SCALE (NOVOLOG) 1 VIAL SQ SCH (11:12)
[2024-02-16 12:14] LABS: INR 3.32 (0.83-1.09); PROTHROMBIN TIME (PATIENT) 36.2 SEC (9.7-13.0)
[2024-02-16 12:28] LABS: CHLORIDE 106 mmol/L (98-107); POTASSIUM 4.8 mmol/L (3.5-5.1); SODIUM 141 mmol/L (136-145)
[2024-02-16 12:30] LABS: ANION GAP 4 mmol/L (4-13); BLOOD UREA NITROGEN 61.3 mg/dL (7-18); CO2 31 mmol/L (21-32)
[2024-02-16 12:34] LABS: CREATININE 1.5 mg/dL (0.55-1.3)
[2024-02-16 12:46] LABS: GLUCOSE,RANDOM 657 mg/dL (74-106)
[2024-02-16] MEDS: SODIUM CHLORIDE 0.45% 1,000 ML IV SCH (13:32)
[2024-02-16] MEDS: INSULIN (NOVOLOG) ASPART 100 UNITS/ML 10ML VIAL SQ ONE (13:32)
[2024-02-16] MEDS: WARFARIN NA 3 MG TABLET PO SCH (17:03)
[2024-02-17 07:57] LABS: PROTHROMBIN TIME (PATIENT) 44.5 SEC (9.7-13.0)
[2024-02-17 08:07] LABS: HEMATOCRIT 39.3 % (32.4-45.2); HEMOGLOBIN 12.4 GM/dL (10.7-15.3); MCH 31.1 pg (25.7-33.7); MCHC 31.6 g/dl (32.0-36.0); MEAN CELL VOLUME 98.3 fl (80-96); MEAN PLT VOLUME 8.8 fl (7.5-11.1); PLATELET COUNT 106 10^3/uL (134-434); RDW 15.6 % (11.6-15.6); WHITE BLOOD COUNT 24.2 K/mm3 (4.0-10.0)
[2024-02-17 08:29] LABS: INR 4.1 (0.83-1.09)
[2024-02-17 08:33] LABS: ALBUMIN 2.4 g/dl (3.4-5.0); BILIRUBIN,TOTAL 0.8 mg/dL (0.2-1); BLOOD UREA NITROGEN 55.6 mg/dL (7-18); CALCIUM 9.6 mg/dL (8.5-10.1); CREATININE 1.1 mg/dL (0.55-1.3); POTASSIUM 4.8 mmol/L (3.5-5.1); TOT PROT 5.7 g/dl (6.4-8.2)
[2024-02-17] MEDS ORDERED: INSULIN (NOVOLOG) ASPART 100 UNITS/ML 10ML VIAL ONE (21:16)
[2024-02-18] MEDS ORDERED: INSULIN (NOVOLOG) ASPART 100 UNITS/ML 10ML VIAL ONE (06:02)
[2024-02-18 07:26] LABS: HEMATOCRIT 36.6 % (32.4-45.2); HEMOGLOBIN 12.1 GM/dL (10.7-15.3); MCH 31.8 pg (25.7-33.7); MCHC 33.1 g/dl (32.0-36.0); MEAN CELL VOLUME 96.2 fl (80-96); MEAN PLT VOLUME 9.1 fl (7.5-11.1); PLATELET COUNT 116 10^3/uL (134-434); RDW 15.4 % (11.6-15.6); WHITE BLOOD COUNT 17.9 K/mm3 (4.0-10.0)
[2024-02-18 07:45] LABS: POTASSIUM 4.9 mmol/L (3.5-5.1)
[2024-02-18 08:02] LABS: CALCIUM 9.7 mg/dL (8.5-10.1)
[2024-02-18 08:03] LABS: ALBUMIN 2.4 g/dl (3.4-5.0); BLOOD UREA NITROGEN 49.8 mg/dL (7-18)
[2024-02-18 08:06] LABS: BILIRUBIN,TOTAL 0.8 mg/dL (0.2-1)
[2024-02-18 08:07] LABS: TOT PROT 5.4 g/dl (6.4-8.2)
[2024-02-18] MEDS: VANCOMYCIN/WATER FOR INJ (PEG) 1,000 MG/200 ML BAG IVPB SCH (12:42)
[2024-02-18] MEDS ORDERED: WARFARIN NA 2 MG TABLET PO SCH (18:00)
[2024-02-18] MEDS: predniSONE 20 MG TABLET (UD) PO SCH (22:16)
[2024-02-19 07:05] LABS: INR 3.49 (0.83-1.09)
[2024-02-19 12:00] LABS: HEMATOCRIT 41.7 % (32.4-45.2); HEMOGLOBIN 13.8 GM/dL (10.7-15.3); MCH 32.3 pg (25.7-33.7); MEAN PLT VOLUME 10.2 fl (7.5-11.1); RBC 4.26 M/mm3 (3.60-5.2); RDW 15.7 % (11.6-15.6); WHITE BLOOD COUNT 26.6 K/mm3 (4.0-10.0)
[2024-02-19 12:20] LABS: POTASSIUM 5.5 mmol/L (3.5-5.1)
[2024-02-19 12:22] LABS: ALBUMIN 2.8 g/dl (3.4-5.0); BLOOD UREA NITROGEN 36.4 mg/dL (7-18); CALCIUM 9.6 mg/dL (8.5-10.1)
[2024-02-19 12:26] LABS: CREATININE 0.8 mg/dL (0.55-1.3)
[2024-02-19 12:27] LABS: BILIRUBIN,TOTAL 1.7 mg/dL (0.2-1); TOT PROT 6.4 g/dl (6.4-8.2)
[2024-02-19] MEDS: ACETAMINOPHEN 325 MG TABLET (FP) PO PRN (12:53)
[2024-02-19 13:05] LABS: PLATELET COUNT 98 10^3/uL (134-434)
[2024-02-19] MEDS: SODIUM ZIRCONIUM CYCLOSILICATE (LOKELMA) 5 GM PACKET PO SCH (16:02)
[2024-02-19] MEDS: SODIUM CHLORIDE 0.45% 1,000 ML IV SCH (16:02)
[2024-02-19] MEDS ORDERED: INSULIN (NOVOLOG) ASPART 100 UNITS/ML 10ML VIAL ONE (21:23)
[2024-02-20] MEDS ORDERED: INSULIN (NOVOLOG) ASPART 100 UNITS/ML 10ML VIAL ONE ×2 (06:05→21:05)
[2024-02-20] MEDS: FUROSEMIDE 40 MG/4 ML INJECTABLE VIAL IVPUSH ONE (11:13)
[2024-02-20] MEDS: DAPTOMYCIN 800 MG in SODIUM CHLORIDE 100 ML IVPB SCH (13:20)
[2024-02-20 15:38] LABS: POTASSIUM 3.6 mmol/L (3.5-5.1)
[2024-02-20 15:42] LABS: ALBUMIN 2.3 g/dl (3.4-5.0); BLOOD UREA NITROGEN 29.8 mg/dL (7-18); CALCIUM 8.9 mg/dL (8.5-10.1)
[2024-02-20 15:45] LABS: CREATININE 0.8 mg/dL (0.55-1.3)
[2024-02-20 15:47] LABS: BILIRUBIN,TOTAL 1.2 mg/dL (0.2-1); TOT PROT 5.5 g/dl (6.4-8.2)
[2024-02-20] MEDS: INSULIN (LEVEMIR) 100 UNITS/ML UNITS SQ SCH (21:28)
[2024-02-21 07:51] LABS: POTASSIUM 4.4 mmol/L (3.5-5.1)
[2024-02-21 07:52] LABS: CALCIUM 8.6 mg/dL (8.5-10.1)
[2024-02-21 07:53] LABS: ALBUMIN 2.2 g/dl (3.4-5.0); BLOOD UREA NITROGEN 25.8 mg/dL (7-18)
[2024-02-21 07:55] LABS: CREATININE 0.7 mg/dL (0.55-1.3)
[2024-02-21 07:58] LABS: BILIRUBIN,TOTAL 1.2 mg/dL (0.2-1); TOT PROT 5.6 g/dl (6.4-8.2)
[2024-02-21] MEDS: FUROSEMIDE 40 MG/4 ML INJECTABLE VIAL IVPUSH SCH (10:26)
[2024-02-21 16:38] VITALS: BMI 30.7
[2024-02-22 11:33] LABS: HEMATOCRIT 31.4 % (32.4-45.2); HEMOGLOBIN 10.5 GM/dL (10.7-15.3); MCHC 33.4 g/dl (32.0-36.0); MEAN PLT VOLUME 9.2 fl (7.5-11.1); PLATELET COUNT 114 10^3/uL (134-434); RBC 3.27 M/mm3 (3.60-5.2); RDW 15.2 % (11.6-15.6); WHITE BLOOD COUNT 19.7 K/mm3 (4.0-10.0)
[2024-02-22 11:52] LABS: POTASSIUM 3.3 mmol/L (3.5-5.1)
[2024-02-22 11:53] LABS: CALCIUM 8.6 mg/dL (8.5-10.1)
[2024-02-22 11:54] LABS: ALBUMIN 2.3 g/dl (3.4-5.0); BLOOD UREA NITROGEN 26.8 mg/dL (7-18)
[2024-02-22 11:57] LABS: CREATININE 0.6 mg/dL (0.55-1.3)
[2024-02-22 12:09] LABS: TOT PROT 5.5 g/dl (6.4-8.2)
[2024-02-22] MEDS: KCL 10 MEQ IVPB 10 MEQ/100 ML INFUS.BAG IVPB SCH ×2 (15:52→23:08)
[2024-02-23 04:03] VITALS: RESP 20
[2024-02-23 08:11] LABS: POTASSIUM 4.4 mmol/L (3.5-5.1)
[2024-02-23 08:22] LABS: BLOOD UREA NITROGEN 30.8 mg/dL (7-18); CALCIUM 9.1 mg/dL (8.5-10.1); MAGNESIUM 2.4 mg/dL (1.8-2.4)
[2024-02-23 08:23] LABS: ALBUMIN 2.4 g/dl (3.4-5.0)
[2024-02-23 08:25] LABS: CREATININE 0.8 mg/dL (0.55-1.3)
[2024-02-23 08:27] LABS: TOT PROT 5.4 g/dl (6.4-8.2)
[2024-02-23 09:47] LABS: INR 1.4 (0.83-1.09); PROTHROMBIN TIME (PATIENT) 15.7 SEC (9.7-13.0)
[2024-02-23] MEDS ORDERED: FUROSEMIDE 40 MG TABLET (FP) PO SCH (10:00)
[2024-02-23] MEDS: FUROSEMIDE 40 MG TABLET (FP) PO SCH (14:27)
[2024-02-23 15:33] VITALS: BP 125/84; PULSE 93; TEMP 98.4
[2024-02-23] MEDS: ENOXAPARIN NA (PORCINE) 80 MG/0.8 ML DISP.SYRIN SQ ONE (16:07)
[2024-02-23] MEDS ORDERED: WARFARIN NA 3 MG TABLET PO SCH (18:00)
== END 2024-02-23 16:18 | DRG 871 ==
LOC: JER 09:55 → JERBED 14:52 → J4W 16:38
PROVIDERS: ADMIT Internal Medicine; ATTEND Internal Medicine
PROC: 02HV33Z Insertion of Infusion Device into Superior Vena Cava, Percutaneous Approach (ICD-10-PCS; principal; 2024-02-20)
PROC: B548ZZA Ultrasonography of Superior Vena Cava, Guidance (ICD-10-PCS; 2024-02-20)
DX: A41.02 Sepsis due to Methicillin resistant Staphylococcus aureus (principal); G93.41 Metabolic encephalopathy; J44.1 Chronic obstructive pulmonary disease with (acute) exacerbation; N17.9 Acute kidney failure, unspecified; N39.0 Urinary tract infection, site not specified; I50.32 Chronic diastolic (congestive) heart failure; A41.9 Sepsis, unspecified organism; E03.9 Hypothyroidism, unspecified; E11.9 Type 2 diabetes mellitus without complications; I10 Essential (primary) hypertension; I48.91 Unspecified atrial fibrillation; E78.5 Hyperlipidemia, unspecified; G30.9 Alzheimer's disease, unspecified; F02.80 Dementia in other diseases classified elsewhere, unspecified severity, without behavioral disturbance, psychotic disturbance, mood disturbance, and anxiety
CPT/HCPCS: 0241U-QW; 36415; 36569; 70450-TC; 70551-TC; 71045-TC-FY; 71250-TC; 74176-TC; 74230-TC-FY; 76705-TC; 80048; 80053; 81003; 82248; 82533; 82550; 82803; 82962; 83036; 83605; 83690; 83735; 84100; 84443; 84484; 85025; 85027; 85610; 85730; 86709; 86850; 86900; 86901; 87040; 87086; 87186; 87340; 87522; 87635; 92611-GN; 93005; 93010; 93306-TC; 94640; 99285-25; G0480; J0131; J0878; J3370

== ENCOUNTER 2024-02-27 13:31 | Inpatient (IN) | payer OTHER ==
[2024-02-27] MEDS ORDERED: MEROPENEM 1 GM VIAL (RESTRICTED TO ID) IVPB ONE (14:29)
[2024-02-27 14:54] LABS: VENOUS BASE EXCESS 14.2 mmol/L (-2-2); VENOUS O2 SATURATION 74.8 % (70-80); VENOUS PCO2 57.4 mmHg (38-52); VENOUS PH 7.462 (7.310-7.410)
[2024-02-27 14:55] LABS: HEMATOCRIT 30.5 % (32.4-45.2); MCHC 32.9 g/dl (32.0-36.0); MEAN CELL VOLUME 97.2 fl (80-96); MEAN PLT VOLUME 8.5 fl (7.5-11.1); PLATELET COUNT 117 10^3/uL (134-434); RBC 3.14 M/mm3 (3.60-5.2); WHITE BLOOD COUNT 10.8 K/mm3 (4.0-10.0)
[2024-02-27] MEDS: MEROPENEM 1 GM in DEXTROSE 5%-WATER 100 ML IVPB ONE (15:00)
[2024-02-27 15:08] LABS: INR 2.61 (0.83-1.09); PROTHROMBIN TIME (PATIENT) 28.7 SEC (9.7-13.0)
[2024-02-27 15:11] LABS: ACTIVATED PTT 30.7 SECONDS (25.2-36.5)
[2024-02-27 15:16] LABS: CHLORIDE 93 mmol/L (98-107); SODIUM 138 mmol/L (136-145)
[2024-02-27] MEDS: SODIUM CHLORIDE 2,722 ML IV ONE (15:17)
[2024-02-27 15:18] LABS: BLOOD UREA NITROGEN 25.4 mg/dL (7-18); CALCIUM 8.7 mg/dL (8.5-10.1); CO2 40 mmol/L (21-32); GLUCOSE,RANDOM 101 mg/dL (74-106)
[2024-02-27 15:19] LABS: ALBUMIN 2.5 g/dl (3.4-5.0)
[2024-02-27 15:21] LABS: SGPT/ALT 19 U/L (13-61)
[2024-02-27 15:22] LABS: CREATININE 0.8 mg/dL (0.55-1.3); SGOT/AST 35 U/L (15-37)
[2024-02-27 15:24] LABS: ALK PHOS 90 U/L (45-117)
[2024-02-27 15:41] LABS: ANION GAP 5 mmol/L (4-13); POTASSIUM 2.5 mmol/L (3.5-5.1)
[2024-02-27 15:52] LABS: ANISOCYTOSIS 0; MACROCYTOSIS 0
[2024-02-27] MEDS: DAPTOMYCIN 800 MG in SODIUM CHLORIDE 50 ML IVPB ONE (16:16)
[2024-02-27 17:42] LABS: EPI CELLS 16 /uL (0-25.1); HYALINE CASTS 4 /uL (0-3.1); PH,URINE 5.5 (5.0-8.0); URINE APPEARANCE TURBID; URINE BACTERIA 62 /uL (0-1359); URINE BILIRUBIN 1+ (NEGATIVE); URINE COLOR DK YELLOW; URINE GLUCOSE (UA) NEGATIVE (NEGATIVE); URINE KETONE TRACE (NEGATIVE); URINE LEUK ESTERASE TRACE (NEGATIVE); URINE NITRITE NEGATIVE (NEGATIVE); URINE PROTEIN 3+ (NEGATIVE); URINE RBC 225 /uL (0-23.9); URINE WBC 18 /uL (0-25.8)
[2024-02-27] MEDS ORDERED: KCL 10 MEQ IVPB 10 MEQ/100 ML INFUS.BAG IVPB ONE ×3 (18:40→20:47)
[2024-02-27] MEDS: KCL 10 MEQ IVPB 10 MEQ/100 ML INFUS.BAG IVPB SCH (18:46)
[2024-02-27] MEDS ORDERED: dilTIAZem HCL 50 MG/10 ML - 10 ML VIAL IVPUSH PRN (23:13)
[2024-02-28] MEDS ORDERED: dilTIAZem HCL 50 MG/10 ML - 10 ML VIAL IVPUSH PRN (00:04)
[2024-02-28 09:22] LABS: BASO % 0.2 % (0-2.0); HEMATOCRIT 30.8 % (32.4-45.2); HEMOGLOBIN 10.1 GM/dL (10.7-15.3); LYMPH % 6.6 % (8-40); MCH 32.2 pg (25.7-33.7); MCHC 32.7 g/dl (32.0-36.0); MEAN CELL VOLUME 98.4 fl (80-96); MEAN PLT VOLUME 8.8 fl (7.5-11.1); MONO % 4.8 % (3.8-10.2); NEUT % 88.4 % (42.8-82.8); PLATELET COUNT 117 10^3/uL (134-434); RBC 3.13 M/mm3 (3.60-5.2); RDW 15.6 % (11.6-15.6); WHITE BLOOD COUNT 8.6 K/mm3 (4.0-10.0)
[2024-02-28 09:33] LABS: INR 3.31 (0.83-1.09); PROTHROMBIN TIME (PATIENT) 36.1 SEC (9.7-13.0)
[2024-02-28 09:44] LABS: POTASSIUM 3.6 mmol/L (3.5-5.1)
[2024-02-28 09:45] LABS: CALCIUM 8.9 mg/dL (8.5-10.1)
[2024-02-28] MEDS: MEROPENEM 1 GM in DEXTROSE 5%-WATER 100 ML IVPB SCH ×2 (09:45→12:46)
[2024-02-28 09:46] LABS: ALBUMIN 2.5 g/dl (3.4-5.0); BLOOD UREA NITROGEN 38.4 mg/dL (7-18); MAGNESIUM 2.3 mg/dL (1.8-2.4)
[2024-02-28] MEDS: ENOXAPARIN NA (PORCINE) 40 MG/0.4 ML DISP.SYRIN SQ SCH (09:46)
[2024-02-28 09:49] LABS: CREATININE 1.1 mg/dL (0.55-1.3)
[2024-02-28 09:51] LABS: BILIRUBIN,TOTAL 1.7 mg/dL (0.2-1); TOT PROT 5.9 g/dl (6.4-8.2)
[2024-02-28] MEDS: RANOLAZINE E.R. 500 MG TABLET (FP) PO SCH (13:13)
[2024-02-28] MEDS: METOLAZONE 5 MG TABLET PO SCH (13:14)
[2024-02-28] MEDS: REMDESIVIR 200 MG in SODIUM CHLORIDE 250 ML IVPB ONE (13:14)
[2024-02-28] MEDS: FUROSEMIDE 40 MG TABLET (FP) PO SCH (15:04)
[2024-02-28] MEDS: DAPTOMYCIN 800 MG in SODIUM CHLORIDE 50 ML IVPB SCH (15:04)
[2024-02-28] MEDS: ALBUTEROL SO4 2.5/IPRATROPIUM 0.5 INH SOL 3 ML VIAL.NEB. NEB SCH (16:55)
[2024-02-28] MEDS: prednisoLONE ACETATE 1% OPHTH SUSP 5 ML BOTTLE OU SCH (21:46)
[2024-02-28] MEDS: MONTELUKAST NA 10 MG TABLET PO SCH (21:47)
[2024-02-28] MEDS: SENNOSIDES 8.6MG TABLET (FP) PO SCH (21:47)
[2024-02-29 07:37] LABS: POTASSIUM 3.4 mmol/L (3.5-5.1)
[2024-02-29 07:40] LABS: CALCIUM 8.6 mg/dL (8.5-10.1); HEMATOCRIT 30.7 % (32.4-45.2); HEMOGLOBIN 10.2 GM/dL (10.7-15.3); MCH 32.4 pg (25.7-33.7); MCHC 33.2 g/dl (32.0-36.0); MEAN CELL VOLUME 97.6 fl (80-96); MEAN PLT VOLUME 8.8 fl (7.5-11.1); PLATELET COUNT 116 10^3/uL (134-434); RBC 3.15 M/mm3 (3.60-5.2); RDW 15.9 % (11.6-15.6)
[2024-02-29 07:41] LABS: ALBUMIN 2.6 g/dl (3.4-5.0)
[2024-02-29 07:44] LABS: CREATININE 1.6 mg/dL (0.55-1.3)
[2024-02-29 08:03] LABS: PROTHROMBIN TIME (PATIENT) 43.5 SEC (9.7-13.0)
[2024-02-29 08:11] LABS: INR 4.01 (0.83-1.09)
[2024-02-29 09:53] LABS: PLATELET ESTIMATE SLT DECREASE
[2024-02-29] MEDS: METHIMAZOLE 5 MG TABLET PO SCH (09:54)
[2024-02-29] MEDS ORDERED: BROMFENAC SODIUM OD SCH (10:00)
[2024-02-29] MEDS: SODIUM ZIRCONIUM CYCLOSILICATE (LOKELMA) 5 GM PACKET PO SCH (12:49)
[2024-02-29] MEDS: REMDESIVIR 100 MG in SODIUM CHLORIDE 250 ML IVPB SCH (14:18)
[2024-03-01 07:49] LABS: INR 3.37 (0.83-1.09); PROTHROMBIN TIME (PATIENT) 36.8 SEC (9.7-13.0)
[2024-03-01 07:52] LABS: CHLORIDE 95 mmol/L (98-107); SODIUM 141 mmol/L (136-145)
[2024-03-01 07:58] LABS: BLOOD UREA NITROGEN 53.8 mg/dL (7-18); CALCIUM 9.2 mg/dL (8.5-10.1); CO2 40 mmol/L (21-32); MAGNESIUM 2.3 mg/dL (1.8-2.4)
[2024-03-01 08:01] LABS: CREATININE 1.4 mg/dL (0.55-1.3)
[2024-03-01 08:02] LABS: GLUCOSE,RANDOM 199 mg/dL (74-106)
[2024-03-01 08:05] LABS: ANION GAP 6 mmol/L (4-13); POTASSIUM 2.4 mmol/L (3.5-5.1)
[2024-03-01 08:13] LABS: HEMATOCRIT 28.2 % (32.4-45.2); HEMOGLOBIN 9.5 GM/dL (10.7-15.3); MCH 32.6 pg (25.7-33.7); MCHC 33.6 g/dl (32.0-36.0); MEAN CELL VOLUME 97.1 fl (80-96); MEAN PLT VOLUME 8.9 fl (7.5-11.1); PLATELET COUNT 99 10^3/uL (134-434); RDW 16.2 % (11.6-15.6); WHITE BLOOD COUNT 8.7 K/mm3 (4.0-10.0)
[2024-03-01] MEDS: KCL 10 MEQ IVPB 10 MEQ/100 ML INFUS.BAG IVPB SCH (09:05)
[2024-03-01 10:08] LABS: ANISOCYTOSIS 0; MACROCYTOSIS 0
[2024-03-01] MEDS: POTASSIUM CHLORIDE ORAL LIQUID 20 MEQ/15 ML PO SCH (15:34)
[2024-03-01] MEDS: WARFARIN NA 2 MG TABLET PO SCH (17:35)
[2024-03-02 08:21] LABS: ALBUMIN 2.4 g/dl (3.4-5.0); BILIRUBIN,TOTAL 2.4 mg/dL (0.2-1); CALCIUM 8.9 mg/dL (8.5-10.1); CREATININE 1.2 mg/dL (0.55-1.3); MAGNESIUM 2.1 mg/dL (1.8-2.4); POTASSIUM 3.3 mmol/L (3.5-5.1); TOT PROT 5.7 g/dl (6.4-8.2)
[2024-03-02] MEDS: KCL 10 MEQ IVPB 10 MEQ/100 ML INFUS.BAG IVPB SCH (16:05)
[2024-03-02] MEDS: SPIRONOLACTONE 25 MG TABLET PO ONE (16:05)
[2024-03-02] MEDS: POTASSIUM CHLORIDE ORAL LIQUID 20 MEQ/15 ML PO ONE (16:06)
[2024-03-02] MEDS: INSULIN ASPART SLIDING SCALE (NOVOLOG) 1 VIAL SQ SCH (21:51)
[2024-03-03 10:23] LABS: ALBUMIN 2.3 g/dl (3.4-5.0); BILIRUBIN,TOTAL 2.6 mg/dL (0.2-1); BLOOD UREA NITROGEN 48.9 mg/dL (7-18); CALCIUM 9.1 mg/dL (8.5-10.1); CREATININE 1.1 mg/dL (0.55-1.3); MAGNESIUM 2.1 mg/dL (1.8-2.4); POTASSIUM 4.8 mmol/L (3.5-5.1); TOT PROT 5.7 g/dl (6.4-8.2)
[2024-03-03] MEDS: FUROSEMIDE 40 MG TABLET (FP) PO SCH (12:05)
[2024-03-03] MEDS: FUROSEMIDE 40 MG/4 ML INJECTABLE VIAL IVPUSH ONE (12:19)
[2024-03-03 12:35] LABS: INR 3.44 (0.83-1.09); PROTHROMBIN TIME (PATIENT) 37.5 SEC (9.7-13.0)
[2024-03-03 20:44] VITALS: BMI 28.8
[2024-03-04] MEDS: FUROSEMIDE 40 MG/4 ML INJECTABLE VIAL IVPUSH ONE (17:56)
[2024-03-05 05:56] VITALS: BP 96/61; PULSE 98; RESP 22; TEMP 97.7
== END 2024-03-05 15:35 | disposition expired | DRG 177 ==
LOC: JER 13:31 → JERBED 20:13 → J4W 02-28 01:31
PROVIDERS: ADMIT Internal Medicine; ATTEND Family Medicine
PROC: XW033E5 Introduction of Remdesivir Anti-infective into Peripheral Vein, Percutaneous Approach, New Technology Group 5 (ICD-10-PCS; principal; 2024-02-28)
DX: U07.1 COVID-19 (principal); G93.41 Metabolic encephalopathy; J18.9 Pneumonia, unspecified organism; R53.2 Functional quadriplegia; I50.22 Chronic systolic (congestive) heart failure; I24.89 Other forms of acute ischemic heart disease; N39.0 Urinary tract infection, site not specified; R78.81 Bacteremia; I48.91 Unspecified atrial fibrillation; Z79.01 Long term (current) use of anticoagulants; E78.5 Hyperlipidemia, unspecified; E11.9 Type 2 diabetes mellitus without complications; J44.9 Chronic obstructive pulmonary disease, unspecified; G30.9 Alzheimer's disease, unspecified; F02.80 Dementia in other diseases classified elsewhere, unspecified severity, without behavioral disturbance, psychotic disturbance, mood disturbance, and anxiety; K21.9 Gastro-esophageal reflux disease without esophagitis; I11.0 Hypertensive heart disease with heart failure; E87.6 Hypokalemia; Z86.718 Personal history of other venous thrombosis and embolism; Z86.711 Personal history of pulmonary embolism; B95.62 Methicillin resistant Staphylococcus aureus infection as the cause of diseases classified elsewhere; E03.9 Hypothyroidism, unspecified
CPT/HCPCS: 0241U-QW; 36415; 70450-TC; 71045-TC-FY; 80048; 80053; 81003; 82550; 82803; 82962; 83605; 83735; 84484; 85025; 85610; 85730; 86850; 86900; 86901; 87040; 87086; 93005; 93010; 94640; 99285-25; J0248; J0878